=== PATIENT | female | born 1945 | race Caucasian/White ===

== ENCOUNTER 2020-12-05 08:53 | Outpatient (RCR) | payer MEDICARE, SELFPAY ==
[2020-12-05 11:32] VITALS: BMI 23.5
[2020-12-05] MEDS: COVID-19 VACC, MRNA(PFIZER)/PF 30 MCG/0.3 ML SYRINGE IM (12:57)
[2020-12-27] MEDS: COVID-19 VACC, MRNA(PFIZER)/PF 30 MCG/0.3 ML SYRINGE IM (10:14)
== END 2021-03-07 23:59 ==
LOC: IMMUN 08:53
PROVIDERS: PCP Family Medicine; Visit Provider Family Medicine
DX: Z23 Encounter for immunization (principal)
CPT/HCPCS: 0001A; 0002A; 91300

== ENCOUNTER → 2022-07-05 | Outpatient (CLI) | payer MEDICARE, SELFPAY ==
[2022-07-05 10:49] LABS: Anion Gap 6 (5-15); BUN 17 mg/dL (7-18); BUN/Creat Ratio 25.1 RATIO (10-20); Calcium,Total 9.4 mg/dL (8.5-10.1); Chloride 106 mmol/L (98-107); Creatinine, Serum 0.68 mg/dL (0.55-1.02); EST Glomerular Filtration Rate 90 mL/min (>60); Est Glom Filt Rate - Afr Amer 109 mL/min (>60); Glucose 94 mg/dL (74-106); Potassium 4.3 mmol/L (3.5-5.1); Sodium Level 139 mmol/L (136-145)
== END | disposition home or self-care (01) ==
PROVIDERS: Referring Provider Nurse Practitioner Family; Visit Provider Nurse Practitioner Family
DX: I10 Essential (primary) hypertension (principal); R00.2 Palpitations
CPT/HCPCS: 36415; 80048

== ENCOUNTER → 2023-08-27 | Outpatient (CLI) | payer MEDICARE, SELFPAY ==
--- NOTE | 2023-08-27 14:51 | ECHOD_ITS ---
Reason For Study: HTN Procedure This was a 2D Doppler, Color Flow transthoracic echocardiogram. Exam performed in department. Left Ventricle Normal LV size. Left ventricular systolic function is normal. The estimated ejection fraction is 65 %. No regional wall motion abnormalities noted. Right Ventricle Normal RV size. Normal systolic function. Atria Normal left atrium. Normal right atrium. Mitral Valve Normal mitral valve. Tricuspid Valve Normal tricuspid valve. Mild tricuspid valve insufficiency. Pulmonary artery systolic pressure is 24 mmHg. Aortic Valve Normal aortic valve. Mild (1+) aortic valve insufficiency. Pulmonic Valve Normal pulmonic valve. Great Vessels Normal aortic root. The pulmonary artery is normal size. Normal inferior vena cava. Pericardium/Pleural No pericardial effusion. MMode/2D Measurements & Calculations LVIDd: 3.8 cm IVSd: 0.78 cm LAV(MOD-bp): 38.9 ml LVIDs: 2.2 cm LVPWd: 1.0 cm LAV(MOD-bp) Indexed: 22.6 ml/m2 FS: 40.8 % LAV(MOD-sp2): 37.2 ml LAV(MOD-sp4): 37.4 ml SV(MOD-sp4): 34.2 ml SV(sp4-el): 36.0 ml LVAd ap4: 21.6 cm2 LVLd ap4: 6.9 cm EDV(MOD-sp4): 56.1 ml EDV(sp4-el): 57.6 ml LVAs ap4: 12.0 cm2 LVLs ap4: 5.6 cm ESV(MOD-sp4): 21.9 ml ESV(sp4-el): 21.6 ml EF(MOD-sp4): 60.9 % EF(sp4-el): 62.4 % LA A4 area: 15.1 cm2 LA dimension(2D): 3.0 cm RA A4 area: 8.9 cm2 TAPSE: 1.9 cm Time Measurements MV dec time: 0.19 sec Doppler Measurements & Calculations MV E max pilo: 80.3 cm/sec Lat Peak E' Pilo: 7.6 cm/sec Med Peak E' Pilo: 6.0 cm/sec MV A max pilo: 74.7 cm/sec E/E' lat: 10.6 E/E' med: 13.5 MV E/A: 1.1 MV V2 max: 81.6 cm/sec Ao V2 max: 154.5 cm/sec MV max P.7 mmHg MV dec slope: 431.3 cm/sec2 Ao max P.5 mmHg MV V2 mean: 54.8 cm/sec Ao V2 mean: 106.0 cm/sec MV mean P.3 mmHg Ao mean P.2 mmHg MV V2 VTI: 28.7 cm Ao V2 VTI: 34.7 cm AV (velocity ratio): 0.65 AI max pilo: 496.9 cm/sec LV V1 max: 122.6 cm/sec PA V2 max: 99.4 cm/sec AI max P.8 mmHg LV V1 max P.0 mmHg PA V2 mean: 78.0 cm/sec LV V1 mean P.6 mmHg AI dec slope: 307.9 cm/sec2 LV V1 mean: 74.1 cm/sec AI P1/2t: 472.8 msec LV V1 VTI: 22.6 cm TR max pilo: 233.9 cm/sec PI dec slope: 239.0 cm/sec2 TR max P.9 mmHg ECHO/Echo Complete Interpretation Summary Normal LV size. Left ventricular systolic function is normal. The estimated ejection fraction is 65 %. Pulmonary artery systolic pressure is 24 mmHg. Mild (1+) aortic valve insufficiency. Ordering Physician: Russel Hammer Referring Physician: Russel Hammer Performed By: Martha Landa RCS
== END | disposition home or self-care (01) ==
LOC: CVS 14:48
PROVIDERS: Referring Provider Internal Medicine Cardiovascular Disease; Visit Provider Internal Medicine Cardiovascular Disease
DX: R00.2 Palpitations (principal); I10 Essential (primary) hypertension
CPT/HCPCS: 93306

== ENCOUNTER → 2023-10-09 | Outpatient (CLI) | payer MEDICARE, SELFPAY ==
[2023-10-09 17:03] LABS: Anion Gap 6 (5-15); BUN 19 mg/dL (7-18); BUN/Creat Ratio 25.5 RATIO (10-20); Calcium,Total 9.5 mg/dL (8.5-10.1); Chloride 99 mmol/L (98-107); Creatinine, Serum 0.74 mg/dL (0.55-1.02); EST Glomerular Filtration Rate 80 mL/min (>60); Est Glom Filt Rate - Afr Amer 97 mL/min (>60); Glucose 99 mg/dL (74-106); Potassium 3.9 mmol/L (3.5-5.1); Sodium Level 132 mmol/L (136-145)
== END | disposition home or self-care (01) ==
LOC: LAB 15:52
PROVIDERS: Referring Provider Physician Assistant Medical; Visit Provider Physician Assistant Medical
DX: I10 Essential (primary) hypertension (principal); Z51.81 Encounter for therapeutic drug level monitoring; Z79.899 Other long term (current) drug therapy
CPT/HCPCS: 36415; 80048

== ENCOUNTER → 2023-11-06 | Outpatient (CLI) | payer MEDICARE, SELFPAY ==
[2023-11-06 15:43] LABS: Anion Gap 3 (5-15); BUN 18 mg/dL (7-18); BUN/Creat Ratio 22.8 RATIO (10-20); Calcium,Total 9.3 mg/dL (8.5-10.1); Chloride 107 mmol/L (98-107); Creatinine, Serum 0.79 mg/dL (0.55-1.02); EST Glomerular Filtration Rate 75 mL/min (>60); Est Glom Filt Rate - Afr Amer 91 mL/min (>60); Glucose 103 mg/dL (74-106); Potassium 3.9 mmol/L (3.5-5.1); Sodium Level 138 mmol/L (136-145)
--- OUTSIDE RECORDS SUMMARY | 2023-11-06 18:56 | XMS RPT_ITS | CCD ---
Author Name Unknown Address [address] [place] [address] Organization [facility] Care Team Providers Care [facility] Specialist Name Role Phone Kandace Reaganbonny Mcginnis Unavailable Floridalma Ballard Unavailable Unavailable Kandace Reaganbonny Mcginnis Unavailable KEM ORTEZ Unavailable Unavailable Fabricio De La Garza Unavailable Unavailable Fabricio De La Garza Unavailable Unavailable BOLKEM ESCOBEDO Unavailable Unavailable IMCA Unavailable Unavailable Fabricio De La Garza Unavailable Unavailable Unavailable Primary Care Provider Unavailabl e FRED POTTS Referring Unavailable FRED POTTS Referring Unavailable Allergies Allergy Classification Reported Allergen(s) Allergy Type Date of Onset Reaction(s) Facility (3 sources) amantadine; Translations: [SYMMETREL] food allergy 4 [facility] Work Phone: (3 sources) amoxicillin / clavulanate drug allergy 4 [facility] Work Phone: (6 sources) erythromycin; Translations: [ERYTHROMYCIN] drug allergy 0 [facility] Work Phone: (3 sources) amantadine; Translations: [AMANTADINE HCL] Drug Allergy 0 [place] [facility] (3 sources) AMOXICILLIN-POT CLAVULANATE; Translations: [AMOXICILLIN-POT CLAVULANATE] Propensity to adverse reactions (disorder) 0 [place] [facility] Medications Completed/Discontinued Medications Medication Drug Class(es) Dates Sig (Normalized) Sig (Original) amLODIPine 5 mg oral tablet (4 sources) Dihydropyridine Calcium Channel Lázaro Start: 10-11-2014 take 1 tablet by mouth once daily in the evening NORVASC 5 MG TABS One tablet by mouth daily in the PM AMLODIPINE BESYLATE [id number] Russel Hammer MD Problems Active Problems Problem Classification Problem Date Documented Da te Episodic/Chronic Cancer of bladder (2 sources) Malignant neoplasm of bladder, unspecified; Translations: [Malignant tumor of urinary bladder] Onset: 11-25-2009 09-25-2021 Chronic Cancer of bladder (2 sources) H/O: malignant neoplasm; Translations: [Personal history of malignant neoplasm of bladder] Onset: 03-17-2010 09-01-2014 Episodic Disorders of lipid metabolism (6 sources) Hyperlipidemia; Translations: [Hyperlipidemia, unspecified] Onset: 07-20-2014 Resolved: 07-21-2014 07-21-2014 Chronic Essential hypertension (3 sources) Hypertensive disorder; Translations: [Essential (primary) hypertension] Onset: 08-31-2014 08-31-2014 Chronic Osteoporosis (1 source) Osteoporosis; Translations: [Age-related osteoporosis without current pathological fracture] Onset: 08-17-2014 08-17-2014 Chronic Paralysis (1 source) Cerebral palsy; Translations: [Cerebral palsy, unspecified] Onset: 06-30-2014 06-30-2014 Chronic Rubia-; endo-; and myocarditis; cardiomyopathy (except that caused by tuberculosis or sexually transmitted disease) (1 source) Heart valve disorder; Translations: [Endocarditis, valve unspecified] Onset: 07-28-2014 09-25-2021 Chronic Unclassified (1 source) Unknown / UNK(Unknown) Onset: 05-14-2018 Past or Other Problems Problem Classification Problem Date Documented Date Episodic/Chronic Blindness and vision defects (1 source) Amblyopia; Translations: [Unspecified amblyopia, unspecified eye] Onset: 06-30-2014 09-25-2021 Episodic Cardiac dysrhythmias (3 sources) Palpitations; Translations: [Palpitations] Onset: 07-20-2014 07-20-2014 Episodic Other circulatory disease (3 sources) Elevated blood-pressure reading without diagnosis of hypertension; Translations: [Elevated blood-pressure reading, without diagnosis of hypertension] Onset: 07-20-2014 07-20-2014 Episodic Other nervous system disorders (1 source) Impairment of balance; Translations: [Other abnormalities of gait and mobility] Onset: 01-05-2015 01-05-2015 Episodic Other non-traumatic joint disorders (1 source) Hip pain; Translations: [Pain in unspecified hip] Onset: 01-05-2015 01-05-2015 Episodic Results Test Name Value Interpretation Reference Range Facil ity Vital Signs Date Time Vital Sign Value Performing Clinician Atul arora 02-28-2017 16:17-0400 BMI (Body Mass Index) 25.29 kg/m2 [facility] Work Phone: 02-28-2017 16:17-0400 BP Diastolic 70 mm[Hg] [facility] Work Phone: 02-28-2017 16:17-0400 BP Systolic 150 mm[Hg] [facility] Work Phone: 02-28-2017 16:17-0400 Height 167.64 cm [facility] Work Phone: 02-28-2017 16:17-0400 Pulse (Heart Rate) 76 /min [facility] Work Phone: 02-28-2017 16:17-0400 Respiratory Rate 20 /min [facility] Work Phone: 02-28-2017 16:17-0400 Weight 71.08 kg [facility] Work Phone: 03-13-2016 15:55-0400 BMI (Body Mass Index) 24.63 kg/m2 [facility] Work Phone: 03-13-2016 15:55-0400 BP Diastolic 70 mm[Hg] Harumi DeFinis [facility] Work Phone: 03-13-2016 15:55-0400 BP Systolic 160 mm[Hg] Harumi DeFinis [facility] Work Phone: 03-13-2016 15:55-0400 BSA (Body Surface Area) 1.78 m2 Harumi DeFinis [facility] Work Phone: 03-13-2016 15:55-0400 Pulse (Heart Rate) 76 /min Harumi DeFinis [facility] Work Phone: 03-13-2016 15:55-0400 Respiratory Rate 20 /min Floridalma DeFinis [facility] Work Phone: 03-13-2016 15:55-0400 Weight 69.22 kg Floridalma DeFinis [facility] Work Phone: 07-21-2014 14:19-0400 Height 167.64 cm Floridalma DeFinis [facility] Work Phone: Encounters Encounter Date Encounter Type Care Provider Facility Start: 10-30-2023 Telephone encounter Fred rodriguez PA-C Work Phone: Urology Procedures Date Procedure Procedure Detail Performing Clinician Start: 02-28-2017 End: 02-28-2017 Follow Up Appt 6 months Brandee Braun Start: 02-28-2017 End: 02-28-2017 BRIGID Hammer MD Start: 02-28-2017 End: 02-28-2017 Follow Up Appt 6 months Brandee Braun Start: 02-28-2017 End: 02-28-2017 BRIGID Hammer MD Start: 03-13-2016 End: 03-13-2016 JACKIE Hammer MD Start: 03-13-2016 End: 03-13-2016 Follow Up Appt 6 months Brandee Braun Start: 03-13-2016 End: 03-13-2016 JACKIE Hammer MD Start: 03-13-2016 End: 03-13-2016 Follow Up Appt 6 months Brandee Braun Start: 03-24-2015 End: 03-24-2015 JACKIE Hammer MD Start: 03-24-2015 End: 03-25-2015 Documentation of current medications Russel Hammer MD Start: 03-24-2015 End: 03-24-2015 Follow Up Appt 1 year Russel Hammer MD Start: 03-24-2015 End: 03-24-2015 JACKIE Hammer MD Start: 03-24-2015 End: 03-25-2015 Documentation of current medications Russel Hammer MD Start: 03-24-2015 End: 03-24-2015 Follow Up Appt 1 year Russel Hammer MD Start: 08-31-2014 End: 08-31-2014 JACKIE Hammer MD Start: 08-31-2014 End: 08-31-2014 Follow Up Appt 6 months Brandee Braun Start: 08-31-2014 End: 08-31-2014 JACKIE Hammer MD Start: 08-31-2014 End: 08-31-2014 Follow Up Appt 6 months Brandee Braun Start: 07-26-2014 End: 07-26-2014 Nurse, Teaching, Wound Check (no charge) Russel Hammer MD Start: 07-26-2014 End: 07-26-2014 Nurse, Teaching, Wound Check (no charge) Russel Hammer MD Start: 07-21-2014 End: 07-21-2014 JACKIE Hammer MD Start: 07-21-2014 End: 08-31-2014 Ecg routine ecg w/least 12 lds w/i&r Russel Hammer MD Start: 07-21-2014 End: 07-26-2014 Echocardiography Russel Hammer MD Start: 07-21-2014 End: 07-21-2014 Follow Up Appt 6 weeks Russel Hammer MD Start: 07-21-2014 End: 07-21-2014 HAY BUCKLER Russel Hammer MD Start: 07-21-2014 End: 07-26-2014 Echocardiography Russel Hammer MD Start: 07-21-2014 End: 08-31-2014 Electrocardiogram, complete Russel Luevano i, MD Start: 07-21-2014 End: 07-21-2014 Follow Up Appt 6 weeks Russel Hammer MD Plan of Treatment Date Care Activity Detail Author Start: 09-30-2023 Advance Directive Discussion Advance Directive Discussion [facility] Start: 09-30-2023 Depression Assessment Depression Assessment [facility] Start: 05-31-2023 Covid-19 Vaccine () Covid-19 Vaccine () [facility] Start: 05-31-2023 Influenza vaccination Influenza Vaccine (#1) [facility] Start: 09-13-2017 End: 09-13-2017 Appointment Appointment [facility] Work Phone: Start: 07-01-2017 Diabetes Screening Diabetes Screening [facility] Start: 02-28-2017 End: 02-28-2017 Appointment Appointment [facility] Work Phone: Start: 02-28-2017 End: 02-28-2017 Follow Up Appt 6 months Follow Up Appt 6 months [facility] Work Phone: Start: 02-28-2017 End: 02-28-2017 MMM MMM [facility] Work Phone: Start: 02-28-2017 End: 02-28-2017 Follow Up Appt 6 months Follow Up Appt 6 months [facility] Work Phone: Start: 02-28-2017 End: 02-28-2017 MMM MMM [facility] Work Phone: Start: 03-13-2016 End: 03-13-2016 HAY BUCKLER HAY BUCKLER [facility] Work Phone: Start: 03-13-2016 End: 03-13-2016 Follow Up Appt 6 months Follow Up Appt 6 months [facility] Work Phone: Start: 03-13-2016 End: 03-13-2016 HAY BUCKLER HAY BUCKLER [facility] Work Phone: Start: 03-13-2016 End: 03-13-2016 Follow Up Appt 6 months Follow Up Appt 6 months [facility] Work Phone: Start: 03-24-2015 End: 03-24-2015 HAY BUCKLER HAY BUCKLER [facility] Work Phone: Start: 03-24-2015 End: 03-24-2015 Follow Up Appt 1 year Follow Up Appt 1 year [facility] Work Phone: Start: 03-24-2015 End: 03-24-2015 HAY BUCKLER HAY BUCKLER [facility] Work Phone: Start: 03-24-2015 End: 03-24-2015 Follow Up Appt 1 year Follow Up Appt 1 year [facility] Work Phone: Start: 08-31-2014 End: 08-31-2014 HAY BUCKLER HAY BUCKLER [facility] Work Phone: Start: 08-31-2014 End: 08-31-2014 Follow Up Appt 6 months Follow Up Appt 6 months [facility] Work Phone: Start: 08-31-2014 End: 08-31-2014 HAY BUCKLER HAY BUCKLER [facility] Work Phone: Start: 08-31-2014 End: 08-31-2014 Follow Up Appt 6 months Follow Up Appt 6 months [facility] Work Phone: Start: 07-21-2014 End: 07-21-2014 HAY BUCKLER HAY BUCKLER [facility] Work Phone: Start: 07-21-2014 End: 08-31-2014 Ecg routine ecg w/least 12 lds w/i&r EKG (In office) [facility] Work Phone: Start: 07-21-2014 End: 07-21-2014 Echocardiography Echocardiogram (complete) [facility] Work Phone: Start: 07-21-2014 End: 07-21-2014 Follow Up Appt 6 weeks Follow Up Appt 6 weeks [facility] Work Phone: Start: 07-21-2014 End: 07-21-2014 HAY BUCKLER HAY BUCKLER [facility] Work Phone: Start: 07-21-2014 End: 07-21-2014 Echocardiography Echocardiogram (complete) [facility] Work Phone: Start: 07-21-2014 End: 08-31-2014 Electrocardiogram, complete EKG (In office) [facility] Work Phone: Start: 07-21-2014 End: 07-21-2014 Follow Up Appt 6 weeks Follow Up Appt 6 weeks [facility] Work Phone: Start: 01-28-2012 Pneumococcal Vaccine: 65+ (1 of 1 - PCV) Pneumococcal Vaccine: 65+ (1 of 1 - PCV) [facility] Start: 2007 RSV Vaccine (1 - 1-dose 60+ series) RSV Vaccine (1 - 1-dose 60+ series) [facility] Start: 1997 Shingrix Vaccine (1 of 2) Shingrix Vaccine (1 of 2) [facility] Start: 1966 Urine microalbumin profile DTaP,Tdap,Td Vaccine (1 - Tdap) [facility] Start: 1965 Hepatitis C screening Hepatitis C Screening [facility] Patient Education Metoprolol+(Or al)+(Table t%2C+Tablet%2C+Extended+ Release) [facility] Work Phone: [facility] c Payers Date Payer Category Payer Medicare AETNA MEDICARE A ETNA MEDICARE PPO [id number] 2023-Present [phone] [address] [place] [address] [facility] [id number] 2023 Medicare [id number] Medicare [id number] Social History Date Type Detail Facility Start: 05-14-2018 Tobacco smoking stat us NHIS Never smoked tobacco [facility] Start: 05-14-2018 Tobacco use and exposure Smoke less tobacco non-user [facility] Start: 05-27-2019 Alcohol intake Current non-dr edge inker uppers of alcohol (finding) [facility] Start: 05-27-2019 End: 09-06-2020 History of Social function [facility] Start: 05-27-2019 End: 09-06-2020 Tobacco use panel [facility] National Score (1-10 0), lower number is lower risk Not on file [facility] Start: 1945 Sex Assigned At Not on file [facility] Note 10-31-2023 Telephone Encounter - MUNIRA Turner Laurie - 10/31/2023 4:57 PM ESTTelephone Encounter - Misty Clancy LPN - 10/31/2023 8:40 AM ESTTelephone Encounter - Misty Clancy LPN - 10/31/2023 8:30 AM EST Note Date & Type Note Facility 10-31-2023 Miscellaneous Notes Formattin g of this note might be different from the original. Scheduled for Virtual visit with Dr. Aguilar 11/11 at 1pm. Pt and niece notified and are in agreement with plan to discuss atypical cytology and determine any further work-up. Hedy Turner MA Called Key. Verified name and date of of patient. Informed- states patient has had several cystoscopies in the past. States that patient called her as soon as she got off the phone with me and will call her back to let her know I did get a hold of her. Per Key, patient will most likely get the procedure but will talk with her first to verify and will get a hold of Hedy Turner MA to schedule if they move forward. Misty Clancy LPN Called patient. Verified name and date of . Informed- did state it is a lot ot process with her have Cerebral Palsy and was hoping for good news since she has been doing well. Patient did ask that I call her niece Key at [phone] and let her know. Patient plans to discuss with Key plan and will let us know what they decide. Patient requests a call back to let her know if I get a hold of Key as she doesn't want to take too much time from her niece while she is at work. Misty Clancy LPN Please notify patient that his Urine Cytology showed Atypical Cells these are NOT cancer cells, but do require investigation with Cystoscopy with Staff Urologist Especially in light of her having past history of Bladder Cancer, appt with me is not needed she will need Surgeon to do consult and cystoscopy and if gross hematuria, A CT urogram as well. Closest to Story is [facility] I can place orders and request consult to [place] The only tests so far are culture and cytology no UA and no knowledge of gross hematuria or not. We are only getting bits and pieces not the whole picture. ROMINA Taylor, MANOHAR BARAHONA documented in this encounter [facility] Summary Purpose Family History No Family History Records FoundNo Family History Records FoundNo Family History Records Found Advance Directives No Advanced Directives Records FoundNo Advanced Directives Records FoundNo Advanced Directives Records Found Procedure Findings Note HNO ID: [id number] Author: Abraham Ortez Service: ? Author Type: Physician Type: Procedures Filed: 05/27/2019 3:05 PM Note Text: CYSTOSCOPY PROCEDURE NOTE: Isabelle Burton is a 74 year old female who presents with follow up bladder tumorfor a cystoscopy. Pt ID verified with patient: Yes Procedure verified with patient: Yes Procedure confirmed with physician and product support representative: Yes Sign In: History and Physical Exam reviewed and is unchanged. Primary Diagnosis: History of Bladder CA Informed Consent Discussed: Yes. Risks, benefits, alternatives and personnel discussed with patient who consents to proceed. Sign in Communication: Completed Time Out: Team Confirms the Correct Patient, Correct Procedure; Cystoscopy, Correct Site and Site Marking, Correct Position (if applicable). Fire Safety Check List Reviewed: Yes Affirmation of Time Out: Yes Sign Out: Sign Out Discussion: Completed Physician: Kem Ortez MD A urinalysis was performed revealing no evidence of infection. The bene (more content not included)... Additional Source Comments INFORMATION SOURCE (unrecogn ized section and content) DATE CREATED AUTHOR AUTHOR'S ORGANIZ ATION 05/28/2019 [facility] DATE CREATED AUTHOR AUTHOR'S ORGANIZ ATION 11/01/2023 [facility] Source Comments (unrecognize d section and content) In the event this informatio n is protected by the Federal Confidentiality of Alcohol and Drug Abuse Patient Records regulations: The Federal rules restrict any use of the information to criminally investigate or prosecute any alcohol or drug abuse patient.[facility] Reason for Visit (unrecogniz ed section and content) FOR RECORDS PERTAINING TO PATIENTS WHO ARE OR HAVE BEEN ENROLLED IN A CHEMICAL DEPENDENCY/SUBSTANCEABUSE PROGRAM, SOME INFORMATION MAY BE OMITTED. This clinical summary was aggregated from multiple sources. Caution should be exercised in using it in the provision of clinical care. This summary normalizes information from multiple sources, and as a consequence, information in this document may materially change the coding, format and clinical context of patient data. In addition, data may be omitted in some cases. CLINICAL DECISIONS SHOULD BE BASED ON THE PRIMARY CLINICAL RECORDS. [facility]. provides no warranty or guarantee of the accuracy or completeness of information in this document.
== END | disposition home or self-care (01) ==
LOC: LAB 14:58
PROVIDERS: Referring Provider Physician Assistant Medical; Visit Provider Physician Assistant Medical
DX: I10 Essential (primary) hypertension (principal)
CPT/HCPCS: 36415; 80048

== ENCOUNTER → 2024-09-25 | Outpatient (CLI) | payer MEDICARE, SELFPAY ==
[2024-09-25 13:19] LABS: Absolute Lymphocyte Count 1.85 X10^3/uL (0.83-4.51); Absolute Neutrophil Count 4.6 X10^3/uL (2.0-7.7); Basophil# 0.06 X10^3/uL; Basophil% 0.9 % (0-1); Eosinophil# 0.02 X10^3/uL; Eosinophils% 0.3 % (0-5); Hematocrit 41.7 % (37-47); Hemoglobin 13.5 g/dL (12.0-15.0); Lymphocyte # 1.85 X10^3/ul (0.83-4.51); Lymphocyte % 26.6 % (19-41); Mean Corp Hgb Conc 32.4 g/dL (32-36); Mean Corpuscular Hgb 30.3 pg (27.0-32.0); Mean Corpuscular Volume 93.7 fL (81-99); Mean Platelet Vol. 10.8 fl (6.2-12.0); Monocyte# 0.46 X10^3/uL; Monocyte% 6.6 % (0-10); NRBC Flagged by Analyzer 0 % (0-5); Neutrophil # 4.55 X10^3/uL (2.7-7.7); Neutrophil % 65.3 % (47-70); Platelet Count 236 K/mm3 (150-450); RBC Distribution Width CV 13.6 % (11.6-14.6); RBC Distribution Width SD 46.6 fl (35.1-43.9); Red Blood Count 4.45 M/mm3 (4.2-5.4)
[2024-09-25 14:08] LABS: ALB/GLOB Ratio 1.1 RATIO (0.9-2.4); AST(SGOT) 16 U/L (15-37); Alanine Aminotransfer ALT/SGPT 21 U/L (13-56); Albumin, Serum 3.7 g/dL (3.2-5.0); Alkaline Phosphatase 75 U/L (45-117); Anion Gap 5 (5-15); BUN 15 mg/dL (7-18); BUN/Creat Ratio 19.2 RATIO (10-20); Calcium,Total 8.7 mg/dL (8.5-10.1); Chloride 107 mmol/L (98-107); Creatinine, Serum 0.78 mg/dL (0.55-1.02); EST Glomerular Filtration Rate 76 mL/min (>60); Est Glom Filt Rate - Afr Amer 92 mL/min (>60); Globulin 3.3 g/dL (2.2-4.2); Glucose 105 mg/dL (74-106); Magnesium 2.3 mg/dL (1.6-2.6); Sodium Level 139 mmol/L (136-145); T4 Free Direct 1.14 ng/dL (0.76-1.46)
== END | disposition home or self-care (01) ==
LOC: LAB 12:26
PROVIDERS: Referring Provider Nurse Practitioner Family; Visit Provider Nurse Practitioner Family
DX: R00.2 Palpitations (principal); I10 Essential (primary) hypertension; R00.0 Tachycardia, unspecified
CPT/HCPCS: 36415; 80053; 83735; 84439; 84443; 85025

== ENCOUNTER 2024-10-30 10:58 | Inpatient (IN) | payer MEDICARE, SELFPAY ==
[2024-10-30] VITALS (9 sets, daily range): BP systolic 131–177; BP diastolic 66–92; PULSE 86–138; RESP 16–34; TEMP 36.3–37.6; O2SAT 96–98; BMI 23.1; BMI 21.7
--- NOTE | 2024-10-30 12:26 | CT_ITS ---
PROCEDURE: CT CHEST, ABD, PELVIS WO CONT REASON FOR EXAM: Left-sided rib pain and pelvic pain following a fall. TECHNIQUE: Chest CTA with intravenous contrast and 3D reconstructions. Abdomen and pelvis CT using the same contrast dose. CONTRAST: COMPARISON: None. FINDINGS: CHEST: Lines and tubes: None. Mediastinum: Small mediastinal lymph nodes. Heart: Coronary artery calcifications are noted. Small pericardial effusion. Thoracic Aorta: No evidence of acute traumatic aortic injury. Atherosclerotic calcification of the aortic arch and descending thoracic aorta. Lungs and Airways: Mild increased markings at the left lung base suggestive of left basilar atelectasis. Pleura: Minimal left pleural thickening. Bones: Degenerative changes of the spine. No rib fracture is seen. Osteoarthritis of both shoulder joints. ABDOMEN AND PELVIS: Liver: Unremarkable. Gallbladder: Unremarkable. Spleen: Unremarkable. Pancreas: Unremarkable. Adrenals: Unremarkable. Kidneys: Unremarkable. Bladder: Distended urinary bladder. Prior hysterectomy. Reproductive Organs: Unremarkable. Bowel: Moderate-sized hiatal hernia. Vasculature: Mild diffuse atherosclerotic calcifications are noted. Peritoneum / Retroperitoneum: No free fluid. No free air. Bones: Degenerative changes of the spine. Loss of height of the superior endplate of the L3 and L5 vertebrae. 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 Prior ORIF of the left intertrochanteric fracture. Degenerative changes of the sacroiliac joints. CT/CT Chest, Abd, Pelvis WO Cont IMPRESSION: Small pericardial effusion. Findings suggestive of left basilar atelectasis. Distended urinary bladder. Loss of height of the L3 and L5 vertebrae. Red 1 anterior listhesis of L5 on S1. Hiatal hernia. One or more dose reduction techniques were used (e.g., Automated exposure contr ol, adjustment of the mA and/or kV according to patient size, use of iterative reconstruction technique). Reading Location: [facility]
--- NOTE | 2024-10-30 12:38 | ED.VIS.BACK ---
HPI History of Present Illness Chief Complaint: Back Informant: patient and family Narrative Narrative: Patient is a 79 year female with history of cerebral palsy and tachycardia presenting for with worsening left lower back pain, left rib pain and pain going down her left leg. Patient states she had a fall about 2 weeks ago in the kitchen. She landed on hard linoleum. She denies any head injury or loss of conscious. She is on any blood thinners. Week ago she had another fall in her bedroom when she landed on her buttocks. Over the past few days she has been having worsening low back pain that goes into her left buttocks and down her leg. She denies any associated numbness. Her sister tried to help her out of bed today and her legs were too weak that she had to put her back in bed. Patient notes she has a lot of pain especially when she tries to walk or rotate in bed. She states he is having very hard time getting around. She normally gets around with a cane. In addition she is been having worsening constipation for the past few days. She has been trying prune juice and fiber with no relief. She denies any difficulty breathing. Been taking aspirin for her pain with no significant relief. Came in for further evaluation as she is now having a hard time taking care of herself or even getting to the restroom. No other complaints or concerns reported at this time [facility] Medical History Cerebral palsy Cataract Palpitations Elevated blood pressure reading without diagnosis of hypertension Essential (primary) hypertension Home Medications ?Medication ?Instructions ?Recorded ?Last Taken ?Type apple cider vinegar 600 mg capsule 600 mg PO QDAY 01/16/18 Unknown History flaxseed oil 1,000 mg capsule 1,000 mg PO QDAY 01/16/18 Unknown History garlic 200 mg tablet 200 mg PO QDAY 01/16/18 Unknown History glucosamine HCl 500 mg tablet 500 mg PO QDAY 01/16/18 Unknown History red yeast rice 600 mg capsule 600 mg PO QDAY 01/16/18 Unknown History cholecalciferol (vitamin D3) 25 2,000 unit PO QDAY 07/25/23 Unknown History mcg (1,000 unit) tablet metoprolol succinate 50 mg 50 mg PO DAILY #90 TABLETS 01/22/24 Unknown Rx tablet,extended release 24 hr lisinopril 20 mg tablet 20 mg PO QDAY #90 tabs 03/02/24 Unknown Rx amlodipine 5 mg tablet 5 mg PO DAILY #90 tabs 10/05/24 Unknown Rx Allergy/AdvReac Type Severity Reaction Status Date / Time amantadine (From Symmetrel) AdvReac Severe Unknown Verified 10/30/24 11:00 amoxicillin (From Augmentin) AdvReac Severe Unknown Verified 10/30/24 11:00 clavulanic acid (From AdvReac Severe Unknown Verified 10/30/24 11:00 Augmentin) erythromycin base AdvReac Severe Unknown Verified 10/30/24 11:00 Family History Father Diabetes Hypertension Mother alzhemier Osteoporosis Surgical History History of tonsillectomy History of hysterectomy History of hip replacement Social History Smoking Status: Never smoker alcohol intake: never substance use type: does not use caffeine: Yes Type: coffee Number of servings: 3 what type of physical activity do you participate in: none seatbelt use: always do you feel safe at home: Yes ROS ROS ED Constitutional Constitutional ED: Denies chills or fever(s) Cardiovascular Cardiovascular: Denies chest pain Respiratory/Chest Respiratory/Chest: Denies dyspnea Gastrointestinal Gastrointestinal: Reports constipation; Denies abdominal pain, nausea or vomiting Musculoskeletal Musculoskeletal: Reports back pain; Denies neck pain Integumentary Denies rash Neurologic Neurologic: Reports weakness; Denies paresthesias Psychiatric Psychiatric: Denies anxiety or depression Hematologic/Lymphatic Hematologic/Lymphatic: Denies easy bleeding or easy bruising EXAM Physical Exam Const Vital Signs: 10/30/24 11:01 10/30/24 15:00 10/30/24 15:52 Temperature 98.1 F 98.9 F 97.4 F L Temperature Source Oral Oral Pulse Rate 121 H 105 H 110 H Respiratory Rate 20 H 18 17 Blood Pressure 141/73 H 140/73 H 177/92 H Blood Pressure Mean 95 95 120 Pulse Ox 96 98 97 Oxygen Delivery Method Room Air Room Air 10/30/24 15:53 Temperature 98.4 F Temperature Source Oral Pulse Rate 110 H Respiratory Rate 17 Blood Pressure 177/92 H Blood Pressure Mean 120 Pulse Ox 97 Oxygen Delivery Method Room Air Positive well nourished and well developed General Appearance ED: well developed and NAD HEENT Reports dry mucous membranes Mouth ED: Yes dry mucous membranes Mouth: dry mucous membranes Eyes PERRL Neck supple Resp normal respiratory effort and clear to auscultation bilaterally Cardio regular rhythm Rate: tachycardic GI normal to inspection, nondistended, normoactive bowel sounds, soft to palpation and non-tender Back/Spine normal to inspection Back/Spine Narrative: No midline thoracic tenderness. Patient is also mild tenderness over the sacrum and at the left SI joint. Does have some associated left lumbar paraspinal tenderness. Positive straight leg test on the right with increase of left low back pain. Negative left straight leg test. Extremity Extremity Narrative: Some chronic appearing deformity to the right foot with abnormal rotation?patient states this is chronic from her CP. Neuro oriented x3 Neuro Narrative: 5/5 strength with plantar and dorsiflexion of the left foot. 5/5 strength of the right foot with plantarflexion but 4/5 strength with dorsiflexion?chronic for patient. Sensorium / Orientation: alert Psych mental status grossly normal Skin no rashes or lesions noted and no wounds MDM MDM MDM Narrative Medical decision making narrative: Patient evaluate for worsening low back pain. Did have a fall about a week ago but did not think much of it. Is also complaining of some left-sided rib pain from a fall 2 weeks ago. Upon arrival patient is tachycardic (does have history of whitecoat associated tachycardia and hypertension per her chart review with cardiology). Patient is given IV fentanyl with only minimal relief of her pain. Given that she is having rib pain as well as sacral pain will obtain CT of the chest abdomen pelvis for further evaluation ensure she does not have an acute traumatic process. She does have loss of height of the L3 and L5 vertebrae with retrolisthesis of L5 on S1. Is not clear if these are acute or chronic. Patient is given a dose of IV Ativan that she does appear to be having a lot of muscle spasms. She does have improvement of her pain with at rest but still significant pain when she tries to move. In addition patient does have a leukocytosis of 22.5. No clear source is seen. She does not report any fever. She is not able to provide urine sample in the emergency room but her bladder is quite distended. Lau catheters obtained and 800 cc is out. No UTI appreciated. Attempted to ambulate and patient has too much pain to even stand up. Will be admitted for further pain control, monitoring of her leukocytosis and urinary retention. Patient is agreeable this plan of care. Given dose of Toradol in the ER as well. Case discussed with Dr. Andrews. Lab Data Attestation: I reviewed the patient's lab results. Labs: Laboratory Results - last 24 hr 10/30/24 10/30/24 12:45 14:45 WBC 22.2 H RBC 4.25 Hgb 13.0 Hct 37.7 MCV 88.7 MCH 30.6 MCHC 34.5 RDW Std Deviation 43.2 RDW Coeff of Roselyn 13.2 Plt Count 240 MPV 10.0 Immature Gran % (Auto) 0.800 Neut % (Auto) 83.5 H Lymph % (Auto) 4.4 L [place] % (Auto) 11.2 H Eos % (Auto) 0.0 Baso % (Auto) 0.1 Absolute Neuts (auto) 18.5 H Absolute Lymphs (auto) 0.98 Nucleated RBC % 0 Differential Comment SCANNED Diff Path Review May foll Sodium 133 L Potassium 3.6 Chloride 102 Carbon Dioxide 23.0 Anion Gap 7 BUN 15 Creatinine 0.64 Estim Creat Clear Calc 57.27 Est GFR (MDRD) Af Amer 115 Est GFR (MDRD) Non-Af 95 BUN/Creatinine Ratio 23.4 H Glucose 138 H Calcium 8.8 Total Bilirubin 0.70 AST 18 ALT 19 Alkaline Phosphatase 89 Total Protein 6.3 L Albumin 3.2 Globulin 3.1 Albumin/Globulin Ratio 1.0 Urine Color Yellow Urine Clarity Clear Urine pH 7.0 Ur Specific [place] 1.010 Urine Protein 15 H Urine Glucose (UA) Normal Urine Ketones Negative Urine Occult Blood 10 H Urine Nitrite Negative Urine Bilirubin Negative Urine Urobilinogen Normal Ur Leukocyte Esterase Negative Urine RBC 0-5 SEEN Urine WBC 0 SEEN Ur Squamous Epith Cells 0 SEEN Urine Bacteria 0 SEEN Urine Mucus 0 SEEN Radiography Diagnostic Testing: Clinical Impression(s) from Imaging Studies Chest/Abdomen/Pelvis CT 10/30/24 12:26 IMPRESSION: Small pericardial effusion. Findings suggestive of left basilar atelectasis. Distended urinary bladder. Loss of height of the L3 and L5 vertebrae. Red 1 anterior listhesis of L5 on S1. Hiatal hernia. One or more dose reduction techniques were used (e.g., Automated exposure control, adjustment of the mA and/or kV according to patient size, use of iterative reconstruction technique). Reading Location: [place] [id number] Management Discussion w/another healthcare provider: Hospitalist Discharge Plan Triage Chief Complaint: Back ED Provider: She Tejada Dx/Rx/DC Orders Clinical Impression: Tachycardia, Intractable low back pain, Leukocytosis, Urinary retention Primary Care Provider: Care Physician,No Primary Disposition Disposition: Acute Care Hospital [facility]
[2024-10-30] MEDS: fentaNYL 100 MCG/2 ML Ampul 50 MCG IV (12:39)
[2024-10-30 12:50] LABS: Absolute Lymphocyte Count 0.98 X10^3/uL (0.83-4.51); Absolute Neutrophil Count 18.5 X10^3/uL (2.0-7.7); Basophil# 0.03 X10^3/uL; Basophil% 0.1 % (0-1); Hematocrit 37.7 % (37-47); Lymphocyte # 0.98 X10^3/ul (0.83-4.51); Lymphocyte % 4.4 % (19-41); Mean Corp Hgb Conc 34.5 g/dL (32-36); Mean Corpuscular Hgb 30.6 pg (27.0-32.0); Mean Corpuscular Volume 88.7 fL (81-99); Monocyte# 2.49 X10^3/uL; Monocyte% 11.2 % (0-10); NRBC Flagged by Analyzer 0 % (0-5); Neutrophil # 18.48 X10^3/uL (2.7-7.7); Neutrophil % 83.5 % (47-70); POSITIVE DIFFERENTIAL YES; Platelet Count 240 K/mm3 (150-450); RBC Distribution Width CV 13.2 % (11.6-14.6); RBC Distribution Width SD 43.2 fl (35.1-43.9); Red Blood Count 4.25 M/mm3 (4.2-5.4); White Blood Count 22.2 K/mm3 (4.4-11.0)
[2024-10-30 13:35] LABS: Differential Indicated SCAN CRITERIA MET
[2024-10-30 13:36] LABS: Differential Comment SCANNED
[2024-10-30 14:07] LABS: AST(SGOT) 18 U/L (15-37); Alanine Aminotransfer ALT/SGPT 19 U/L (13-56); Albumin, Serum 3.2 g/dL (3.2-5.0); Alkaline Phosphatase 89 U/L (45-117); Anion Gap 7 (5-15); BUN 15 mg/dL (7-18); BUN/Creat Ratio 23.4 RATIO (10-20); Calcium,Total 8.8 mg/dL (8.5-10.1); Chloride 102 mmol/L (98-107); Creatinine, Serum 0.64 mg/dL (0.55-1.02); EST Glomerular Filtration Rate 95 mL/min (>60); Est Glom Filt Rate - Afr Amer 115 mL/min (>60); Estimated Creatinine Clearance 57.27 ml/min; Globulin 3.1 g/dL (2.2-4.2); Glucose 138 mg/dL (74-106); Potassium 3.6 mmol/L (3.5-5.1); Protein, Total 6.3 g/dL (6.4-8.2); Sodium Level 133 mmol/L (136-145)
[2024-10-30] MEDS: LORazepam 2 MG/ML Syringe 1 MG IV (14:36)
[2024-10-30] MEDS: 0.9% Normal Saline (1000mL) 1,000 ML 999 ML IV ×2 (14:36→22:50)
[2024-10-30 14:53] LABS: Bacteria 0 SEEN /hpf (None Seen); Mucous, Urine 0 SEEN /hpf (<or=2+); Squamous Epithelial Cells - UA 0 SEEN /hpf (5-10); White Blood Cells 0 SEEN /hpf (0-5)
[2024-10-30 14:56] LABS: Color, Urine Yellow (Yellow); Glucose, Dipstick Normal (Normal); Ketone-Dipstick Negative (Negative); Leukocyte Esterase-Dipstick Negative /ul (Negative); Nitrite-Dipstick Negative (Negative); Occult Blood-Urine 10 /ul (Negative); Protein-Dipstick 15 mg/dl (Negative); Urine Bilirubin Dipstick Negative (Negative); Urine Clarity Clear (Clear); Urine Urobilinogen Normal (Normal)
[2024-10-30 15:13] LABS: Red Blood Cells-Urine 0-5 SEEN /hpf (0-5)
--- NOTE | 2024-10-30 15:54 | PCM.HP.STD ---
HPI - General General Date of Admission: 10/30/24 Date of Service: 10/30/24 Chief Complaint: Worsening low back pain and difficulty with ambulation HPI Narrative SOUMYA MCFARLANE, is a 79 F who presented to [facility] ED on 10/30/2024 with worsening low back pain and difficulty with ambulation. Patient has history of cerebral palsy but is high functioning, lives at home by herself. Does have family that live close by. Patient had a mechanical fall in the kitchen about 2 weeks ago and then had another fall about 1 week ago where she landed on her buttocks. Since then she has had worsening low back pain and difficulty with ambulation. Today she had too much pain and lower extremity weakness to get out of bed, so family brought her in for evaluation. In the ED she was tachycardic to the 110s but otherwise hemodynamically stable on room air. Labs notable for WBC count 22, sodium 133. CT chest abdomen pelvis showed distended urinary bladder but otherwise no chest or abdominal abnormalities; also showed loss of height of L3 and L5 vertebrae and anterolisthesis of L5 on S1. Lau was placed in the ED with 1200 cc of urine removed. Patient has no prior history of urinary retention. Denies bowel incontinence. Given these findings, hospitalist was contacted for admission. I saw the patient at bedside in the ED, niece was present. Patient was laying back in bed and was alert and oriented x 3 but somewhat sedated. She notably had been given doses of IV fentanyl and Ativan prior to my encounter with her. She denied any low back pain currently at rest. However, she was not able to raise her legs off the table and had significant pain with trying to hold them up after I passively raised them. No upper extremity weakness noted. Patient denied any fevers or chills. No other acute concerns currently. Will be admitted for further management. [facility] Medical History (Updated 10/30/24 @ 21:[address] Shiv Andrews, DO) Anxiety Depression Osteoporosis Non-smoker Cerebral palsy Cataract Palpitations Elevated blood pressure reading without diagnosis of hypertension Essential (primary) hypertension Home Medications ?Medication ?Instructions ?Recorded ?Last Taken ?Type apple cider vinegar 600 mg capsule 600 mg PO QDAY 01/16/18 Unknown History flaxseed oil 1,000 mg capsule 1,000 mg PO QDAY 04/19/18 Unknown History garlic 200 mg tablet 200 mg PO QDAY 01/16/18 Unknown History glucosamine HCl 500 mg tablet 500 mg PO QDAY 01/16/18 Unknown History red yeast rice 600 mg capsule 600 mg PO QDAY 01/16/18 Unknown History cholecalciferol (vitamin D3) 25 2,000 unit PO QDAY 07/25/23 Unknown History mcg (1,000 unit) tablet metoprolol succinate 50 mg 50 mg PO DAILY #90 TABLETS 01/22/24 Unknown Rx tablet,extended release 24 hr lisinopril 20 mg tablet 20 mg PO QDAY #90 tabs 03/02/24 Unknown Rx amlodipine 5 mg tablet 5 mg PO DAILY #90 tabs 10/05/24 Unknown Rx Allergy/AdvReac Type Severity Reaction Status Date / Time amantadine (From Symmetrel) AdvReac Severe Unknown Verified 10/30/24 11:00 amoxicillin (From Augmentin) AdvReac Severe Unknown Verified 10/30/24 11:00 clavulanic acid (From AdvReac Severe Unknown Verified 10/30/24 11:00 Augmentin) erythromycin base AdvReac Severe Unknown Verified 10/30/24 11:00 lorazepam (From Ativan) AdvReac restless Verified 10/30/24 17:39 Family History Father Diabetes Hypertension Mother alzhemier Osteoporosis Surgical History History of tonsillectomy History of hysterectomy History of hip replacement Social History Smoking Status: Never smoker alcohol intake: never substance use type: does not use caffeine: Yes Type: coffee Number of servings: 3 what type of physical activity do you participate in: none seatbelt use: always do you feel safe at home: Yes ROS Constitutional Constitutional: Reports fatigue and weakness; Denies chills or fever(s) Eyes Eyes: Denies change in vision Cardiovascular Cardiovascular: Denies chest pain Respiratory/Chest Respiratory/Chest: Denies shortness of breath at rest Gastrointestinal Gastrointestinal: Denies abdominal pain Genitourinary Genitourinary: Reports difficulty urinating; Denies dysuria Musculoskeletal Musculoskeletal: Reports back pain Neurologic Neurologic: Denies dizziness, headache(s), numbness or tingling Vital Signs Vital Signs Vital Signs: 10/30/24 11:01 10/30/24 15:00 10/30/24 15:52 Temperature 98.1 F 98.9 F 97.4 F L Temperature Source Oral Oral Pulse Rate 121 H 105 H 110 H Respiratory Rate 20 H 18 17 Blood Pressure 141/73 H 140/73 H 177/92 H Blood Pressure Mean 95 95 120 Pulse Ox 96 98 97 Oxygen Delivery Method Room Air Room Air 10/30/24 15:53 Temperature 98.4 F Temperature Source Oral Pulse Rate 110 H Respiratory Rate 17 Blood Pressure 177/92 H Blood Pressure Mean 120 Pulse Ox 97 Oxygen Delivery Method Room Air Weight Weight: 66.9 kg Body Mass Index (BMI) 23.1 Physical Exam Const alert, oriented x3 and average body habitus Constitutional Narrative: Elderly female, fatigued and mildly sedated but alert and oriented x 3, laying back in bed and remaining still due to pain with movement,, answering questions appropriately. General Appearance: cooperative HEENT normocephalic, head/scalp atraumatic, hearing grossly normal bilaterally and nasal mucous membranes and turbinates normal HEENT Narrative: Dry mucous membranes. Eyes PERRL, EOMs intact bilaterally and conjunctivae normal Neck full ROM Chest inspection of chest normal Resp normal respiratory effort, normal air movement, no use of accessory muscles and clear to auscultation bilaterally Cardio no murmurs and peripheral pulses 2+ throughout Cardio Narrative: Tachycardic, regular rhythm. GI normal to inspection, nondistended, normoactive bowel sounds, soft to palpation, non-tender and non-distended Back/Spine Back/Spine Narrative: Mild tenderness to palpation in low back diffusely, no point tenderness noted. Extremity Extremity Narrative: Contracture of right lower extremity noted. Skin no rashes or lesions noted Neuro Neuro Narrative: +2/5 strength in bilateral lower extremities. Good strength in upper extremities. Results Lab / Micro Data 10/30/24 12:45 10/30/24 12:45 Labs: Laboratory Results - last 24 hr 10/30/24 12:45: WBC 22.2 H, RBC 4.25, Hgb 13.0, Hct 37.7, MCV 88.7, MCH 30.6, MCHC 34.5, RDW Std Deviation 43.2, RDW Coeff of Roselyn 13.2, Plt Count 240, MPV 10.0, Immature Gran % (Auto) 0.800, Neut % (Auto) 83.5 H, Lymph % (Auto) 4.4 L, [place] % (Auto) 11.2 H, Eos % (Auto) 0.0, Baso % (Auto) 0.1, Absolute Neuts (auto) 18.5 H, Absolute Lymphs (auto) 0.98, Nucleated RBC % 0, Differential Comment SCANNED, Diff Path Review January, Sodium 133 L, Potassium 3.6, Chloride 102, Carbon Dioxide 23.0, Anion Gap 7, BUN 15, Creatinine 0.64, Estim Creat Clear Calc 57.27, Est GFR (MDRD) Af Amer 115, Est GFR (MDRD) Non-Af 95, BUN/Creatinine Ratio 23.4 H, Glucose 138 H, Calcium 8.8, Total Bilirubin 0.70, AST 18, ALT 19, Alkaline Phosphatase 89, Total Protein 6.3 L, Albumin 3.2, Globulin 3.1, Albumin/Globulin Ratio 1.0 10/30/24 14:45: Urine Color Yellow, Urine Clarity Clear, Urine pH 7.0, Ur Specific [place] 1.010, Urine Protein 15 H, Urine Glucose (UA) Normal, Urine Ketones Negative, Urine Occult Blood 10 H, Urine Nitrite Negative, Urine Bilirubin Negative, Urine Urobilinogen Normal, Ur Leukocyte Esterase Negative, Urine RBC 0-5 SEEN, Urine WBC 0 SEEN, Ur Squamous Epith Cells 0 SEEN, Urine Bacteria 0 SEEN, Urine Mucus 0 SEEN Imaging Radiology Impression Chest/Abdomen/Pelvis CT 10/30/24 12:26 IMPRESSION: Small pericardial effusion. Findings suggestive of left basilar atelectasis. Distended urinary bladder. Loss of height of the L3 and L5 vertebrae. Red 1 anterior listhesis of L5 on S1. Hiatal hernia. One or more dose reduction techniques were used (e.g., Automated exposure control, adjustment of the mA and/or kV according to patient size, use of iterative reconstruction technique). Reading Location: [facility] Assessment & Plan Assessment/Plan (1) Intractable low back pain: (2) Difficulty in walking: (3) Urinary retention: (4) Leukocytosis: PLAN: Plan Patient is a 79-year-old female who presented [facility] ED on 10/30/2024 with worsening low back pain and difficulty with ambulation. 1. Acute debility secondary to intractable low back pain after recent falls, history of cerebral palsy ? Admit under inpatient status to [facility]. PT/OT/case management consulted. CT on admit showed loss of height of L3 and L5 vertebrae and anterolisthesis of L5 on S1, unclear if acute or chronic. MRI lumbar spine ordered for further evaluation. Pending MRI results, can consider orthopedic surgery and/or pain management consults. Pain control with scheduled Tylenol, oxycodone as needed and IV morphine as needed. 2. Urinary retention ? Had Lau catheter placed in the ED with 1200 cc of urine output. No history of urinary retention. Presume secondary to intractable low back pain with acute debility. Will likely plan for Lau removal and void trial prior to discharge. 3. Leukocytosis ? WBC count 22 on admit. Noninfectious appearing and no concerning findings on CT chest, abdomen and pelvis. UA unremarkable. Unclear etiology for leukocytosis at this time. Will hold on antibiotics. Follow-up a.m. CBC. 4. Hypertension ? Continue home amlodipine, lisinopril and Toprol. DVT prophylaxis: Lovenox CODE STATUS: Full code, verified Expected disposition: TBD Total clinical time spent by myself addressing the patient's medical issues, reviewing all the data, and collaborating with patient's care team: 75 minutes. Charges/Coding Visit Charges Inpatient E&M: 05215 Init Hosp L3
--- NOTE | 2024-10-30 16:25 | MRI_ITS ---
PROCEDURE: SPINE LUMBAR (ROUTINE) REASON FOR EXAM: Worsening lower back pain with CT changes TECHNIQUE: Noncontrast lumbar spine MRI. COMPARISON: None. FINDINGS: Vertebrae: Lumbar vertebral body heights are preserved. Bone marrow signal is unremarkable. Alignment: There is 5 mm anterolisthesis of L5 on S1. Conus Medullaris: Ends at the L1 level L1-2: No evidence of central canal stenosis. L2-3: Mild broad-based disc bulge with mild central canal stenosis and mild left neural foraminal narrowing L3-4: Mild broad-based disc bulge with mild canal stenosis and mild bilateral neural foraminal narrowing L4-5: Mild broad-based disc bulge with mild canal stenosis and mild bilateral neural foraminal narrowing L5-S1: Moderate broad-based disc bulge with moderate canal stenosis and moderate bilateral neural foraminal narrowing Sacrum: Visualized upper sacrum and SI joints are unremarkable. MRI/Spine Lumbar (Routine) IMPRESSION: Multilevel degenerative changes in thoracolumbar spine most severe at the L5/S1 level with additional grade 1 anterolisthesis of L5 on S1. Reading Location: [facility]
[2024-10-30 17:05] LABS: CPK Total, Creatine Kinase 105 U/L (26-192)
[2024-10-30] MEDS: Ketorolac 15 MG/ML Vial IV (17:20)
--- NOTE | 2024-10-30 18:02 | CASEMGMT ---
Care Management Face to Face with patient for initial transition planning/care coordination assessment in the ED. This typewriters functional tester introduced self and role at [facility]. Patient asleep in bed upon entrance, but patient's niece, Key, agreed to answer questions. Care providers, pharmacy, and demographics verified. Admitting Diagnosis: Tachycardia, Intractable low back pain, Leukocytosis, Urinary retention Other diagnosis history: cerebral palsy, tachycardia PCP: none, resources given to patient's niece. Specialists: Dr. Hammer Preferred Pharmacy: [facility] Insurance: [employer] Medicare Prescription Benefit: yes, [employer] Living Will/HPOA: yes, with patient's sister, Kadi, listed as HCPOA. Not on file here; niece stated ability to ask patient's sister for copy to bring in. LNOK: sister, Kadi. Living Arrangements: lives by self, one story home with 3 steps to enter. Independent with all ADLs prior. Sister lives right next door. Transportation: niece drives patient to all necessary appointments. DME: cane, walker, transport chair, lifted toilet seat. HHC: none SNF/Rehab: [facility] following broken hip Community Resources: none Patient goals: Patient wishes to discharge home, but patient's niece states likely needing HHC at least. Patient's niece stated knowing patient may need SNF. Patient states he has no further needs or concerns at this time. Disposition Plan: admission to acute; RN CM/SW to follow for discharge planning needs that may arise. Umm Romo, [employer], PUBLIC SPEAKING INSTRUCTOR
[2024-10-30 19:55] LABS: Erythrocyte Sedimentation Rate 8 mm/hr (0-30)
[2024-10-30] MEDS: Acetaminophen 500 MG Tablet 1000 MG PO (21:35)
[2024-10-30 23:31] LABS: Allen Test Positive; Base Excess -4 mmol/L (-2 to +2); Bicarbonate 19.3 mmol/L (22-26); Blood Gas Specimen Type ART; Mode Not entered; O2 Delivery Device Not entered; PO2 149 mmHG (75-100); SITE R Radial; SO2 100 % (95-99); Total Carbon Dioxide 20 mmol/L; pCO2 25.8 mmHg (35-45); pH 7.48 (7.35-7.45)
[2024-10-30] MEDS: Vancomycin IV 1,000 MG/200 ML BAG 200 MG IV (23:54)
[2024-10-30] MEDS: Morphine 2 MG/ML Syringe IV (23:58)
[2024-10-30] MEDS: 0.9% Saline Lock 10 ML Syringe IV (23:59)
[2024-10-31] VITALS (14 sets, daily range): BP systolic 121–169; BP diastolic 62–119; PULSE 77–140; RESP 18–22; TEMP 36.6–37.8; O2SAT 94–108
[2024-10-31] MEDS: 0.9% Normal Saline (100mL Bag) 100 ML 15 ML IV (00:02)
[2024-10-31 00:16] LABS: Troponin-I HS 17 pg/mL (3.0-54.0)
[2024-10-31] MEDS: Piperacil/Tazobactam 3.375 GM in 0.9% Normal Saline (50mL MB+) 50 ML IV ×4 (00:16→22:14)
[2024-10-31 00:32] LABS: Amphetamine Urine NEGATIVE (<1000 ng/mL); Barbiturate Urine VISTA NEGATIVE (< 200 ng/mL); Benzodiazepine Urine VISTA NEGATIVE (< 200 ng/mL); Cocaine Urine VISTA NEGATIVE (< 300 ng/mL); Ecstacy Urine VISTA NEGATIVE (< 500 ng/mL); Methadone Urine VISTA NEGATIVE (< 300 ng/mL); Opiates Urine NEGATIVE (< 300 ng/mL); PCP Urine NEGATIVE (< 25 ng/mL); THC Urine VISTA NEGATIVE (< 50 ng/mL); Vista UDS pH Range 7
--- NOTE | 2024-10-31 00:44 | PCM.RX.CS ---
Consult Antibiotic Management Pharmacy has been consulted to manage selected antibiotic: Vancomycin Type of Intervention Type of Consult: New start Labs Labs: Sodium 133 mmol/L (136-145) L 10/30/24 12:45 Potassium 3.6 mmol/L (3.5-5.1) 10/30/24 12:45 Chloride 102 mmol/L (98-107) 10/30/24 12:45 Carbon Dioxide 23.0 mmol/L (21.0-32.0) 10/30/24 12:45 Anion Gap 7 (5-15) 10/30/24 12:45 BUN 15 mg/dL (7-18) 10/30/24 12:45 Creatinine 0.64 mg/dL (0.55-1.02) 10/30/24 12:45 Est GFR (MDRD) Af Amer 115 mL/min (>60) 10/30/24 12:45 Est GFR (MDRD) Non-Af 95 mL/min (>60) 10/30/24 12:45 BUN/Creatinine Ratio 23.4 RATIO (10-20) H 10/30/24 12:45 Glucose 138 mg/dL (74-106) H 10/30/24 12:45 Dosing Weight Weight used for dosin kg Estimated Creatinine Clearance Estimated Creatinine Clearance: 57 Goal Trough Goal Trough: 10-15 mcg/mL Pharmacy Plan for Drug Dosing Pharmacy Plan for Drug Dosing: Pharmacy Service will continue to monitor and adjust dosing as required. Follow-Up Labs Follow-Up Labs: Trough: Vancomycin Date/Time Labs Ordered Labs to be done on [date and time ordered]: 11/01/24 @[id number]
--- NOTE | 2024-10-31 03:02 | NURSING ---
Around 2100 the pt was found in the room, very confused and restless, pulling at her puentes, kimberly care given, repositioned. pt felt very hot, temp 99.7 ax, heart rate 138-140s, called and notified dr jiménez, orders obtained, ns bolus, labs, abgs, monitor, cxr, ct head. dose of morphine, lactic,tele, sed rate, esr, tsh, b12, zosy, vancomycin, resp panel. pt eventually was taken to ct and she then became very confused, restless, fought the ct staff and aide and refused to get the or cxr done. After the ct scan attempt, the pt came back to the room, very restless and confused, pulling at the tele and ivs, wanting to get out of here and go home. she then had an emesis of what looked like coffee ground on her gown and sheet, notified dr moya again, order to send it to lab attempted to gastric occult the emesis but it was not enough. he ordered a protonix gtt, a stool for occult blood, phenergan im for the nausea and to help w her restlessness.
[2024-10-31] MEDS: proMETHazine 25 MG/ML Syringe IM (03:29)
[2024-10-31] MEDS: oxyCODONE 5 MG Tablet PO ×2 (03:32→20:05)
[2024-10-31] MEDS: Pantoprazole Sodium 80 MG in 0.9% Normal Saline (100mL Bag) 80 ML 10 MG CONT INF ×2 (03:42→13:48)
[2024-10-31] MEDS: Metoprolol(XL)Succ 50 MG Tablet PO (06:15)
--- NOTE | 2024-10-31 06:20 | NURSING ---
pt hr 140-150s hallucinating, very confused. very restless, given metoprolol early
[2024-10-31 07:09] LABS: Hematocrit 36.4 % (37-47); Hemoglobin 11.8 g/dL (12.0-15.0); Mean Corp Hgb Conc 32.4 g/dL (32-36); Mean Corpuscular Hgb 30.1 pg (27.0-32.0); Mean Corpuscular Volume 92.9 fL (81-99); Mean Platelet Vol. 10.6 fl (6.2-12.0); Platelet Count 216 K/mm3 (150-450); RBC Distribution Width CV 13.5 % (11.6-14.6); RBC Distribution Width SD 45.8 fl (35.1-43.9); Red Blood Count 3.92 M/mm3 (4.2-5.4); White Blood Count 20.4 K/mm3 (4.4-11.0)
[2024-10-31 07:18] LABS: Scan Indicated on CBC? Y/N NO
[2024-10-31 07:24] LABS: Anion Gap 10 (5-15); BUN 13 mg/dL (7-18); BUN/Creat Ratio 15.7 RATIO (10-20); Calcium,Total 8.3 mg/dL (8.5-10.1); Chloride 103 mmol/L (98-107); Creatinine, Serum 0.83 mg/dL (0.55-1.02); EST Glomerular Filtration Rate 71 mL/min (>60); Est Glom Filt Rate - Afr Amer 86 mL/min (>60); Glucose 114 mg/dL (74-106); Potassium 3.4 mmol/L (3.5-5.1); Sodium Level 133 mmol/L (136-145)
--- NOTE | 2024-10-31 07:36 | PN.HOSP_ITS ---
Reason for Visit Reason for Visit: Back pain Subjective Subjective Patient presented with tachycardia which is chronic for her and she follows with cardiology, worsening low back pain and left rib pain with pain going down her leg. Patient reported on presentation that she fell about 2 weeks ago in her kitchen and landed on hard linoleum. 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 She had another fall about open week ago where she landed on her buttocks while in her bedroom. She denied any tingling or numbness but was complaining of pain that goes into her left buttocks and down her leg. On the day of presentation her sister tried to help her out of bed but her legs were weak so she had to put her back to bed. They reported she was having a lot of pain and was having a very hard time getting around. She does been having worsening constipation. She showed some confusion and agitation the emergency department and was given Ativan. She also was given some Ativan and Phenergan on the floor for significant agitation. Per the nursing staff she was getting out of bed ambulating independently and pulled her Lau out. This morning she is alert and oriented x 3 and sitting up in bed watching television and getting ready to eat breakfast. She denies any back pain currently and respiratory viral panel was positive for parainfluenza virus. Overnight, cultures were sent and she was started on Zosyn and vancomycin. Given her positive parainfluenza I think we can discontinue her vancomycin will continue Zosyn for right now and reevaluate tomorrow. Objective Data Objective Data Vital Signs: Vital Signs Temp Pulse Resp BP Pulse Ox O2 Del Method 97.9 F 140 H 22 H 149/119 H 108 Room Air 10/31/24 04:05 10/31/24 06:15 10/31/24 04:05 10/31/24 06:15 10/31/24 04:05 10/31/24 04:05 Oxygen Delivery Method Room Air Weight: 63 kg Body Mass Index (BMI) 21.7 Intake & Output: Intake and Output for Last 24 Hours 10/29/24 10/30/24 10/31/24 23:59 23:59 23:59 Intake Total 1000 / 1000 1350 / 1350 Output Total 500 / 500 Balance 1000 / 700 850 / 850 Lab / Micro Data 10/31/24 06:31 10/31/24 06:31 Labs: Laboratory Results - last 24 hr 10/30/24 00:00: Folate 13.90, TSH 0.640 10/30/24 12:45: WBC 22.2 H, RBC 4.25, Hgb 13.0, Hct 37.7, MCV 88.7, MCH 30.6, MCHC 34.5, RDW Std Deviation 43.2, RDW Coeff of Roselyn 13.2, Plt Count 240, MPV 10.0, Immature Gran % (Auto) 0.800, Neut % (Auto) 83.5 H, Lymph % (Auto) 4.4 L, [place] % (Auto) 11.2 H, Eos % (Auto) 0.0, Baso % (Auto) 0.1, Absolute Neuts (auto) 18.5 H, Absolute Lymphs (auto) 0.98, Nucleated RBC % 0, Differential Comment SCANNED, Diff Path Review January, ESR 8, Sodium 133 L, Potassium 3.6, Chloride 102, Carbon Dioxide 23.0, Anion Gap 7, BUN 15, Creatinine 0.64, Estim Creat Clear Calc 57.27, Est GFR (MDRD) Af Amer 115, Est GFR (MDRD) Non-Af 95, B UN/Creatinine Ratio 23.4 H, Glucose 138 H, Calcium 8.8, Total Bilirubin 0.70, AST 18, ALT 19, Alkaline Phosphatase 89, Total Creatine Kinase 105, Total Protein 6.3 L, Albumin 3.2, Globulin 3.1, Albumin/Globulin Ratio 1.0 10/30/24 14:45: Urine Color Yellow, Urine Clarity Clear, Urine pH 7.0, Ur Specific Frederic 1.010, Urine Protein 15 H, Urine Glucose (UA) Normal, Urine Ketones Negative, Urine Occult Blood 10 H, Urine Nitrite Negative, Urine Bilirubin Negative, Urine Urobilinogen Normal, Ur Leukocyte Esterase Negative, Urine RBC 0-5 SEEN, Urine WBC 0 SEEN, Ur Squamous Epith Cells 0 SEEN, Urine Bacteria 0 SEEN, Urine Mucus 0 SEEN 10/30/24 21:06: C-React Prot Ext Range 127.00 H 10/30/24 22:47: Urine Opiates Screen NEGATIVE, Urine Methadone Screen NEGATIVE, Ur Barbiturates Screen NEGATIVE, Ur Phencyclidine Scrn NEGATIVE, Ur Amphetamines Screen NEGATIVE, MDMA (Ecstasy) Screen NEGATIVE, U Benzodiazepines Scrn NEGATIVE, Urine Cocaine Screen NEGATIVE, U Cannabinoids Screen NEGATIVE, Ur Drug Screen Comment 10/30/24 23:28: Lactic Acid 1.0, Troponin I High Sens 17 10/31/24 06:31: WBC 20.4 H, RBC 3.92 L, Hgb 11.8 L, Hct 36.4 L, MCV 92.9, MCH 30.1, MCHC 32.4 D, RDW Std Deviation 45.8 H, RDW Coeff of Roselyn 13.5, Plt Count 216, MPV 10.6, Sodium 133 L, Potassium 3.4 L, Chloride 103, Carbon Dioxide 20.0 L, Anion Gap 10, BUN 13, Creatinine 0.83, Estim Creat Clear Calc 55.20, Est GFR (MDRD) Af Amer 86, Est GFR (MDRD) Non-Af 71, BUN/Creatinine Ratio 15.7, Glucose 114 H, Calcium 8.3 L ABG Data ABG results: ABG 10/30/24 23:28 Specimen Type ART Sample Site R Radial pH 7.48 H Bicarbonate Actual 19.3 L Total CO2 20 Base Excess -4 L O2 Saturation 100 H O2 % 21.0 ABG pCO2 25.8 L ABG pO2 149 H Roly Test Positive O2 Delivery Device Not entered Vent Mode Not entered Radiography Diagnostic Testing: Radiology Impression Chest/Abdomen/Pelvis CT 10/30/24 12:26 IMPRESSION: Small pericardial effusion. Findings suggestive of left basilar atelectasis. Distended urinary bladder. Loss of height of the L3 and L5 vertebrae. Red 1 anterior listhesis of L5 on S1. Hiatal hernia. One or more dose reduction techniques were used (e.g., Automated exposure control, adjustment of the mA and/or kV according to patient size, use of iterative reconstruction technique). Reading Location: [facility]IR-1 Lumbar Spine MRI 10/30/24 16:25 IMPRESSION: Multilevel degenerative changes in thoracolumbar spine most severe at the L5/S1 level with additional grade 1 anterolisthesis of L5 on S1. Reading Location: [facility] Physical Exam Const alert, oriented x3, no apparent distress, average body habitus and well nourished Constitutional Narrative: Elderly, white female, sitting up in bed watching television getting ready breakfast, appears comfortable, nontoxic, remembers nothing about last evening HEENT head/scalp atraumatic and moist oral mucous membranes HEENT Narrative: Mallampati 2, no thrush Head and Scalp: normocephalic Resp normal respiratory effort, no retractions and no use of accessory muscles Resp Narrative: Coarse breath sounds especially in the right base with few scattered crackles in the right lung field left lung field was clear Auscultation: crackles; Negative for rhonchi or wheezes Cardio regular rhythm, S1 normal heart sound, S2 normal heart sound, no murmurs, no rub, no gallops and no clicks Cardio Narrative: Tachycardia GI normal to inspection, nondistended, normoactive bowel sounds, soft to palpation and non-tender Extremity no clubbing, cyanosis or edema Extremity Narrative: Pedal pulses are 2+ Neuro no focal motor deficits Speech: speech normal Psych affect normal Psych Narrative: Very pleasant, calm, follows commands well, interacts appropriately, answers questions Assessment & Plan Assessment/Plan (1) Difficulty in walking: (2) Urinary retention: (3) Leukocytosis: (4) Intractable low back pain: (5) Tachycardia: (6) Parainfluenza virus infection: (7) Hypokalemia: PLAN: Plan Acute parainfluenza virus infection -Remains on room air -Suspect etiology for fever and possibly leukocytosis -chest x-ray is unimpressive -Continue supportive care Intractable low back pain -Patient has no complaints of low back pain today -Sounds like she had lumbar radiculopathy -MRI of the lumbar spine showed multilevel degenerative changes in the thoracolumbar spine that most severe at L5-S1 and grade 1 antereolisthesis of L5 on S1 -PT/OT consulted -Refer to physical therapy after discharge and if no improvement may need referral to spine surgery -No noted muscular weakness Urinary retention -Lau in place will continue for tonight try to remove tomorrow -Start Flomax 0.4 mg at at bedtime Hypokalemia -Replace and recheck in a.m. -Check a.m. magnesium level Leukocytosis -Cultures are pending -Patient febrile last evening -Vancomycin and Zosyn started we will stop the vancomycin and continue Zosyn for now -May be all related to parainfluenza virus infection as she also has a fairly significant monocytosis -UA is not consistent with infection -No infection noted on MRI of the lumbar spine Difficulty with ambulation -PT/OT consultation pending Essential hypertension/hyperlipidemia -Hold home apple cider, flaxseed oil, garlic, red yeast rice -Continue amlodipine 5 mg p.o. daily -Continue lisinopril 20 mg p.o. daily -Continue metoprolol 50 mg daily but increase dose to 100 mg as we do have enough blood pressure and she remains tachycardic History of palpitations and tachycardia -Upon review of her outpatient data it appears that her heart rate is fairly consistently in the 100-1 20 range -Slightly higher here so suspect it is related to acute infection -Increase beta-janelle as noted above -Will continue to monitor on telemetry for now History of cerebral palsy -Lives independently -PT/OT consultation pending DVT prophylaxis -Continue enoxaparin 40 daily CODE STATUS -Full code is verified on admission Charges/Coding Visit Charges Inpatient E&M: 68762 Subs Hosp L2
[2024-10-31 08:34] LABS: Erythrocyte Sedimentation Rate 13 mm/hr (0-30)
[2024-10-31] MEDS: Potassium Chloride Oral Tablet 20 MEQ 40 MEQ PO (09:25)
[2024-10-31] MEDS: amLODIPine 5 MG Tablet PO (09:25)
[2024-10-31] MEDS: Enoxaparin 40 MG/0.4 ML Syringe SC (09:25)
[2024-10-31] MEDS: Cholecalciferol (VIT D3) 25 MCG TABLET (1,000 UNITS) 50 MCG PO (09:26)
[2024-10-31] MEDS: Lisinopril 20 MG Tablet PO (09:26)
[2024-10-31] MEDS: Metoprolol(XL)Succ 100 MG Tablet PO (09:34)
[2024-10-31 09:36] LABS: Vitamin B12 377 pg/mL (211-911)
[2024-10-31] MEDS: Lactated Ringers 1,000 ML 75 ML IV (10:03)
[2024-10-31] MEDS: Acetaminophen 500 MG Tablet 1000 MG PO ×2 (14:03→20:05)
--- NOTE | 2024-10-31 15:07 | CASEMGMT ---
Social Work SW created in [facility] a list of halfway facilities in network w/pt's insurance, in pt's preferred geographic area, and complete w/quality and resource use data. LÓPEZ Hawk
[2024-10-31] MEDS: Tamsulosin HCl 0.4 MG Capsule PO (17:58)
--- NOTE | 2024-10-31 18:21 | PCM.HOSP.N ---
Hospitalist Note 2/2 blood cultures + for GPC in chains. Will restart Vanc. Check ECHO. Consult ID to see on Saturday.
[2024-10-31] MEDS: MELATONIN 3 MG TABLET PO (20:05)
[2024-10-31] MEDS: RisperiDONE 0.5 MG Tablet PO (20:11)
[2024-10-31] MEDS: Vancomycin IV 1,000 MG/200 ML BAG 200 MG IV (20:24)
--- NOTE | 2024-10-31 20:34 | PCM.RX.CS ---
Consult Antibiotic Management Pharmacy has been consulted to manage selected antibiotic: Vancomycin Type of Intervention Type of Consult: New start Labs Labs: Sodium 133 mmol/L (136-145) L 10/31/24 06:31 Potassium 3.4 mmol/L (3.5-5.1) L 10/31/24 06:31 Chloride 103 mmol/L (98-107) 10/31/24 06:31 Carbon Dioxide 20.0 mmol/L (21.0-32.0) L 10/31/24 06:31 Anion Gap 10 (5-15) 10/31/24 06:31 BUN 13 mg/dL (7-18) 10/31/24 06:31 Creatinine 0.83 mg/dL (0.55-1.02) 10/31/24 06:31 Est GFR (MDRD) Af Amer 86 mL/min (>60) 10/31/24 06:31 Est GFR (MDRD) Non-Af 71 mL/min (>60) 10/31/24 06:31 BUN/Creatinine Ratio 15.7 RATIO (10-20) 10/31/24 06:31 Glucose 114 mg/dL (74-106) H 10/31/24 06:31 Microbiology Microbiology: Microbiology 10/30/24 23:40 Blood Culture (Wb) - Right Hand Blood Culture - Preliminary 10/30/24 23:28 Blood Culture (Wb) - Left Wrist Blood Culture - Preliminary 10/30/24 23:20 Mucosa - Nasopharyngeal Respiratory Panel (PCR) - Final Parainfluenza 4 10/31/24 07:10 Nasal Secretion SARS-CoV-2 Antigen (Rapid) - Final Dosing Weight Weight used for dosin kg Estimated Creatinine Clearance Estimated Creatinine Clearance: 55 Goal Trough Goal Trough: 15-20 mcg/mL Pharmacy Plan for Drug Dosing Pharmacy Plan for Drug Dosing: Pharmacy Service will continue to monitor and adjust dosing as required. Follow-Up Labs Follow-Up Labs: Trough: Vancomycin Date/Time Labs Ordered Labs to be done on [date and time ordered]: 11/02/24 @0800
[2024-10-31] MEDS: Morphine 2 MG/ML Syringe IV (23:00)
[2024-11-01] VITALS (9 sets, daily range): BP systolic 104–157; BP diastolic 52–94; PULSE 89–142; RESP 16–20; TEMP 36.9–37.2; O2SAT 95–99
[2024-11-01] MEDS: Pramipexole Di-HCl 0.125 MG Tablet PO (01:28)
--- NOTE | 2024-11-01 02:06 | NURSING ---
Patient very restless this shift. She pulled out her IV from her left forearm. Attempted to restart a new IV site, patient became very agitated, thrashing and pulling away from staff. Care provided via 3 staff members. Patient persistently tugging on tele machine, Lau, and IV tubing, despite multiple attempts to redirect. Patient removed tele machine, replaced multiple times before finally removed. Remaining SL wrapped with acewrap to protect it. PRN pain medication given as ordered for back and leg pain. Hospitalist notified and new order for mirapex given.
[2024-11-01] MEDS: Piperacil/Tazobactam 3.375 GM in 0.9% Normal Saline (50mL MB+) 50 ML IV ×3 (05:27→21:44)
[2024-11-01] MEDS: Acetaminophen 500 MG Tablet 1000 MG PO ×3 (05:30→20:05)
[2024-11-01 06:12] LABS: Absolute Lymphocyte Count 1.21 X10^3/uL (0.83-4.51); Absolute Neutrophil Count 16.7 X10^3/uL (2.0-7.7); Basophil# 0.03 X10^3/uL; Basophil% 0.2 % (0-1); Hematocrit 35.8 % (37-47); Hemoglobin 11.6 g/dL (12.0-15.0); Lymphocyte # 1.21 X10^3/ul (0.83-4.51); Lymphocyte % 6.2 % (19-41); Mean Corp Hgb Conc 32.4 g/dL (32-36); Mean Corpuscular Hgb 30.1 pg (27.0-32.0); Mean Corpuscular Volume 92.7 fL (81-99); Mean Platelet Vol. 10.9 fl (6.2-12.0); Monocyte# 1.49 X10^3/uL; Monocyte% 7.6 % (0-10); NRBC Flagged by Analyzer 0 % (0-5); Neutrophil # 16.65 X10^3/uL (2.7-7.7); Neutrophil % 85.5 % (47-70); Platelet Count 205 K/mm3 (150-450); RBC Distribution Width CV 13.4 % (11.6-14.6); RBC Distribution Width SD 45.4 fl (35.1-43.9); Red Blood Count 3.86 M/mm3 (4.2-5.4); White Blood Count 19.5 K/mm3 (4.4-11.0)
[2024-11-01 06:42] LABS: Anion Gap 9 (5-15); BUN 15 mg/dL (7-18); BUN/Creat Ratio 22.6 RATIO (10-20); Calcium,Total 8.7 mg/dL (8.5-10.1); Chloride 107 mmol/L (98-107); Creatinine, Serum 0.66 mg/dL (0.55-1.02); EST Glomerular Filtration Rate 92 mL/min (>60); Est Glom Filt Rate - Afr Amer 111 mL/min (>60); Estimated Creatinine Clearance 57.27 ml/min; Glucose 103 mg/dL (74-106); Magnesium 1.8 mg/dL (1.6-2.6); Phosphorus 2.1 mg/dL (2.5-4.9); Potassium 3.1 mmol/L (3.5-5.1); Sodium Level 139 mmol/L (136-145)
[2024-11-01] MEDS: Vancomycin IV 500 MG/100 ML BAG 100 MG IV ×2 (07:57→20:09)
[2024-11-01] MEDS: Pantoprazole Sodium 80 MG in 0.9% Normal Saline (100mL Bag) 80 ML 10 MG CONT INF (07:59)
[2024-11-01] MEDS: Cholecalciferol (VIT D3) 25 MCG TABLET (1,000 UNITS) 50 MCG PO (08:10)
[2024-11-01] MEDS: Lisinopril 20 MG Tablet PO (08:10)
[2024-11-01] MEDS: amLODIPine 5 MG Tablet PO (08:10)
[2024-11-01] MEDS: Enoxaparin 40 MG/0.4 ML Syringe SC (08:10)
[2024-11-01] MEDS: Metoprolol(XL)Succ 100 MG Tablet PO (08:15)
--- NOTE | 2024-11-01 08:33 | ECHOD_ITS ---
Reason For Study: GP BACTEREMIA R/O ENDOCARDITIS Procedure This was a 2D Doppler, Color Flow transthoracic echocardiogram. Technically difficult study due to confused and uncooperative patient. Exam performed portable in patient room. Left Ventricle Normal LV size. Left ventricular systolic function is normal. The left ventricular ejection fraction is 65 %. No regional wall motion abnormalities noted. Right Ventricle Normal RV size. Normal systolic function. Atria Normal left atrium. Normal right atrium. Mitral Valve Normal mitral valve. Tricuspid Valve Normal tricuspid valve. Aortic Valve Trisinus/trileaflet aortic valve. Pulmonic Valve Normal pulmonic valve. Great Vessels Normal aortic root. The pulmonary artery is normal size. Normal inferior vena cava. Pericardium/Pleural No pericardial effusion. MMode/2D Measurements & Calculations RVDd: 2.2 cm LAV(MOD-bp): 24.1 ml LVAd ap4: 17.8 cm2 LAV(MOD-bp) Indexed: 13.9 ml/m2 LVLd ap4: 6.9 cm LAV(MOD-sp2): 21.8 ml EDV(MOD- sp4): 38.1 ml LAV(MOD-sp4): 25.5 ml EDV(sp4- el): 38.7 ml LVAs ap4: 9.3 cm2 LVLs ap4: 5.8 cm ESV(MOD- sp4): 13.9 ml ESV(sp4- el): 12.7 ml EF(MOD- sp4): 63.5 % EF(sp4- el): 67.2 % _ SV(MOD-sp4): 24.2 ml SV(sp4-el): 26.0 ml LA A4 area: 12.2 cm2 SI(MOD-sp4): 14.0 ml/m2 _ LA dimension(2D): 2.5 cm RA A4 area: 8.2 cm2 Doppler Measurements & Calculations MV E max spencer: 128.9 cm/sec Ao V2 max: 162.1 cm/sec LV V1 max: 114.8 cm/sec Ao max P.5 mmHg LV V1 max P.3 mmHg Ao V2 mean: 106.3 cm/sec LV V1 mean P.4 mmHg Ao mean P.3 mmHg LV V1 mean: 69.7 cm/sec Ao V2 VTI: 24.7 cm LV V1 VTI: 16.0 cm AV (velocity ratio): 0.65 _ PA V2 max: 91.6 cm/sec PA V2 mean: 67.8 cm/sec ECHO/Echo Complete Interpretation Summary Normal LV size. Left ventricular systolic function is normal. The left ventricular ejection fraction is 65 %. Structurally normal valves. Ordering Physician: Marleni Menendez Referring Physician: BILL PCP Performed By: Martha Landa RCS
[2024-11-01] MEDS: Potassium Phosphate 40 MM in 0.9% Normal Saline (500mL Bag) 500 ML 62.5 MM IV (09:48)
--- NOTE | 2024-11-01 13:40 | CT_ITS ---
PROCEDURE: ABDOMEN/PELVIS WITH CONTRAST REASON FOR EXAM: Bacteremia TECHNIQUE: Contiguous axial scans of 3.75 mm slice thicknesses with intravenous and oral contrast. Sagittal and coronal reconstruction images were also obtained. One or more dose reduction techniques were used (e.g., automated exposure control, adjustment of mA and/or kv according to patient size, use of iterative reconstruction technique). IV CONTRAST: Isovue 300, 99 mL. COMPARISON: CT dated 10/30/2024. FINDINGS: Lung bases: Clear. Elevation of the left hemidiaphragm. Liver: Unremarkable. Gallbladder: Unremarkable. Spleen: Unremarkable. Pancreas: Atrophic. Mildly prominent pancreatic duct Adrenals: Unremarkable. Kidneys: Unremarkable. Bladder: Decompressed. Balloon tip Lau catheter. Reproductive Organs: Unremarkable. Bowel: Fecal debris throughout the colon. Small hiatal hernia. Appendix: Normal. Lymph nodes: No suspicious lymph node enlargement. Vasculature: Major vascular structures are unremarkable. Peritoneum / Retroperitoneum: No ascites. No free air. Bones: Multilevel spondylosis. Severe degenerative disc disease at L5-S1. Mild grade 1 anterolisthesis of L5 on S1. Multiple Schmorl's nodes, lumbar spine. A left hip screw and compression plate device. CT/Abdomen/Pelvis WITH Contrast IMPRESSION: 1. Atrophic changes of the right kidney with prominent pancreatic duct. 2. Grade 1 anterolisthesis, L5 on S1. 3. Multilevel spondylosis and degenerative disc disease. 4. Small hiatal hernia. 5. Other nonacute findings detailed above. Reading Location: [facility]
--- NOTE | 2024-11-01 16:19 | PN.HOSP_ITS ---
Reason for Visit Reason for Visit: Back pain Subjective Subjective Patient again with agitation overnight pulling out her IVs. Alert and oriented to person time and president this morning was confused on her current location and told me she was at a warehouse. Able to have an interactive conversation. Per discussion with she and her family, she has had significant issues with her bowels lately with constipation. She has never had a colonoscopy. Blood cultures are positive for alpha-hemolytic strep organisms is not strep pneumo so the concern would be that it could be possibly strep bovis. If so she will need a colonoscopy. I do not have a source of infection and discussed this with family today. They do states she has some bad teeth that have fractured but no signs of abscess or drainage at this time. Objective Data Objective Data Vital Signs: Vital Signs Temp Pulse Resp BP Pulse Ox O2 Del Method 99 F 89 16 135/67 H 98 Room Air 11/01/24 16:12 11/01/24 16:12 11/01/24 16:12 11/01/24 16:12 11/01/24 16:12 11/01/24 16:12 Oxygen Delivery Method Room Air Weight: 63 kg Body Mass Index (BMI) 21.7 Intake & Output: Intake and Output for Last 24 Hours 10/30/24 10/31/24 11/01/24 23:59 23:59 23:59 Intake Total 1000 / 1000 2831.0 / 3031.0 1084.33 / 1084.33 Output Total 875 / 2675 2800 / 2800 Balance 1000 / 700 1956.0 / 356.0 -1715.67 / -1715.67 Lab / Micro Data 11/01/24 04:32 11/01/24 04:32 Labs: Laboratory Results - last 24 hr 11/01/24 04:32: WBC 19.5 H, RBC 3.86 L, Hgb 11.6 L, Hct 35.8 L, MCV 92.7, MCH 30.1, MCHC 32.4, RDW Std Deviation 45.4 H, RDW Coeff of Roselyn 13.4, Plt Count 205, MPV 10.9, Immature Gran % (Auto) 0.500, Neut % (Auto) 85.5 H, Lymph % (Auto) 6.2 L, [place] % (Auto) 7.6, Eos % (Auto) 0.0, Baso % (Auto) 0.2, Absolute Neuts (auto) 16.7 H, Absolute Lymphs (auto) 1.21, Nucleated RBC % 0, Sodium 139, Potassium 3.1 L, Chloride 107, Carbon Dioxide 23.0, Anion Gap 9, BUN 15, Creatinine 0.66, Estim Creat Clear Calc 57.27, Est GFR (MDRD) Af Amer 111, Est GFR (MDRD) Non-Af 92, BUN/Creatinine Ratio 22.6 H, Glucose 103, Calcium 8.7, Phosphorus 2.1 L, Magnesium 1.8 Micro: Microbiology 10/30/24 23:40 Blood Culture (Wb) - Right Hand Bacteria Detection (PCR) - Final Strep not Strep pneumo 10/30/24 23:40 Blood Culture (Wb) - Right Hand Blood Culture - Preliminary Alpha hemolytic organism 10/30/24 23:28 Blood Culture (Wb) - Left Wrist Blood Culture - Preliminary Alpha hemolytic organism 10/30/24 23:20 Mucosa - Nasopharyngeal Respiratory Panel (PCR) - Final Parainfluenza 4 10/31/24 07:10 Nasal Secretion SARS-CoV-2 Antigen (Rapid) - Final Physical Exam Const alert, no apparent distress, average body habitus and well nourished Constitutional Narrative: Elderly, white female, lying in bed appears comfortable, oriented to time, self and POTUS but not location, sister and niece at bedside General Appearance: cooperative HEENT normocephalic, head/scalp atraumatic and hearing grossly normal bilaterally HEENT Narrative: Mallampati 2, dentition is poor, no thrush Eyes EOMs intact bilaterally and conjunctivae normal Eyes Narrative: No scleral icterus Neck full ROM Resp normal respiratory effort, no retractions, no use of accessory muscles and clear to auscultation bilaterally Resp Narrative: Crackly diffusely but no signs of respiratory extremis Auscultation: crackles; Negative for rhonchi or wheezes Cardio regular rhythm, S1 normal heart sound, S2 normal heart sound, no murmurs, no rub, no gallops and no clicks Cardio Narrative: Tachycardia GI normal to inspection, nondistended, normoactive bowel sounds, soft to palpation and non-tender Extremity no clubbing, cyanosis or edema Extremity Narrative: Pedal pulses are 2+ Neuro no focal motor deficits Speech: speech normal Psych affect normal Psych Narrative: Very pleasant, calm, follows commands well, interacts appropriately, answers questions Assessment & Plan Assessment/Plan (1) Difficulty in walking: (2) Urinary retention: (3) Leukocytosis: (4) Intractable low back pain: (5) Tachycardia: (6) Parainfluenza virus infection: (7) Hypokalemia: PLAN: Plan Acute parainfluenza virus infection -Remains on room air -Suspect this is incidental finding and not anything related to while she is hospitalized -chest x-ray is unimpressive -Continue supportive care Alpha-hemolytic strep bacteremia -Identified as nonstrep pneumo -awaiting identification -Continue vancomycin and Zosyn for now -Repeat blood cultures in a.m. -Check echocardiogram -Source is unclear--> patient does have dental caries and has had altered stools -If strep bovis would need colonoscopy -Maxillary and mandibular x-rays pending to assess for signs of infection -Given back pain and bacteremia will check contrasted MRI is noncontrasted was unremarkable -White count has come down some -Currently no clinical findings consistent with bacterial endocarditis -ID consult Intractable low back pain -Intermittent complaints now -Sounds like she had lumbar radiculopathy -MRI of the lumbar spine showed multilevel degenerative changes in the thoracolumbar spine that most severe at L5-S1 and grade 1 antereolisthesis of L5 on S1 -->Will check MRI with contrast in light of bacteremia -PT/OT following -Refer to physical therapy after discharge and if no improvement may need referral to spine surgery -No noted muscular weakness Urinary retention -Continue Lau for now -Continue Flomax 0.4 mg at at bedtime Hypokalemia/hypophosphatemia -40 mmol of IV potassium phosphorus given Repeat lab in a.m. Leukocytosis -Suspect related to the above bacterial infection with gram-positive bacteremia -Slowly trending down Difficulty with ambulation -PT/OT following Essential hypertension/hyperlipidemia -Hold home apple cider, flaxseed oil, garlic, red yeast rice -Continue amlodipine 5 mg p.o. daily -Continue lisinopril 20 mg p.o. daily -Continue metoprolol 100 mg daily -Increased from her home dose of 50 mg daily due to elevated blood pressure and tachycardia -Both blood pressure and heart rate are better with increased dose History of palpitations and tachycardia -Upon review of her outpatient data it appears that her heart rate is fairly consistently in the 100-1 20 range -Slightly higher here so suspect it is related to acute infection -Continue metoprolol as ordered above -Will continue to monitor on telemetry for now History of cerebral palsy -Lives independently -PT/OT consultation pending DVT prophylaxis -Continue enoxaparin 40 daily CODE STATUS -Full code is verified on admission Charges/Coding Visit Charges Inpatient E&M: 99402 Subs Hosp L3
[2024-11-01] MEDS: Tamsulosin HCl 0.4 MG Capsule PO (16:59)
--- NOTE | 2024-11-01 17:48 | NURSING ---
pt to ct scan
--- NOTE | 2024-11-01 18:10 | RAD_ITS ---
PROCEDURE: MANDIBLE MIN 4 VIEWS REASON FOR EXAM: No pain. TECHNIQUE: 4 view(s) of the mandible. COMPARISON: None. FINDINGS: No signs of mandibular fracture. Multiple metallic dental enhancements. Visualized sinuses are unremarkable. Cervical spine spondylosis in multilevel degenerative disc disease. Soft tissues unremarkable. RAD/Mandible Min 4 Views IMPRESSION: No acute osseous abnormalities are demonstrated. Nonacute findings detailed above. Reading Location: [facility]
[2024-11-01] MEDS: RisperiDONE 0.5 MG Tablet PO (20:09)
[2024-11-01] MEDS: MELATONIN 3 MG TABLET PO (20:09)
[2024-11-02] VITALS (8 sets, daily range): BP systolic 131–158; BP diastolic 67–97; PULSE 108–125; RESP 16–20; TEMP 36.1–36.7; O2SAT 97–100
[2024-11-02] MEDS: Pantoprazole Sodium 80 MG in 0.9% Normal Saline (100mL Bag) 80 ML 10 MG CONT INF ×2 (00:08→10:45)
[2024-11-02] MEDS: Acetaminophen 500 MG Tablet 1000 MG PO ×3 (05:58→21:38)
[2024-11-02] MEDS: Piperacil/Tazobactam 3.375 GM in 0.9% Normal Saline (50mL MB+) 50 ML IV (05:58)
--- NOTE | 2024-11-02 08:00 | MRI_ITS ---
PROCEDURE: MRI lumbar spine without and with IV contrast REASON FOR EXAM: Pain TECHNIQUE: Multisequence multiplanar MR images of the lumbar spine were obtained before and after the administration of intravenous contrast. COMPARISON: 10/30/2024 FINDINGS: Vertebral body heights are within normal limits. Diffuse bone marrow edema throughout the L5 and S1 vertebral bodies with associated enhancement. No disc enhancement at this level. Mild adjacent paravertebral edema/enhancement. No paraspinal fluid collection. Degenerative grade 1 anterolisthesis of L5-S1. Alignment is otherwise intact. Multilevel disc desiccation and disc space narrowing. Moderate paraspinal muscle atrophy. No paraspinal mass. Conus medullaris is within normal limits. L1-2: Minimal posterior disc bulge. Mild bilateral facet arthrosis and ligamentum flavum hypertrophy. No significant spinal stenosis or foraminal narrowing. L2-3: Minimal posterior disc bulge. Moderate bilateral facet arthrosis and ligamentum flavum hypertrophy. Mild spinal stenosis. Moderate bilateral foraminal narrowing. L3-4: Minimal posterior disc osteophyte complex. Moderate bilateral facet arthrosis and ligamentum flavum hypertrophy. Mild/moderate spinal stenosis. Moderate bilateral foraminal narrowing. L4-5: Posterior disc osteophyte complex. Moderate bilateral facet arthrosis and ligamentum flavum hypertrophy. Mild/moderate spinal stenosis. Moderate bilateral foraminal narrowing. L5-S1: Grade 1 anterolisthesis with uncovering of the posterior disc. Superimposed diffuse posterior disc bulge. Severe bilateral facet arthrosis including marked marginal osteophytes, small joint effusions and capsulitis/synovitis. Ligamentum flavum hypertrophy. Moderate/severe spinal stenosis, greatest at the level of the mid S1 vertebral body. Severe bilateral foraminal narrowing. MRI/Spine Lumbar W/WO Contrast IMPRESSION: 1. Acquired multilevel degenerative changes, greatest at L5-S1 including modera te/severe spinal stenosis and severe bilateral foraminal narrowing. See level by level comments above. 2. Degenerative grade 1 anterolisthesis of L5-S1. 3. Moderate diffuse bone marrow edema throughout the L5 and S1 vertebral bodies with associated bone marrow and paravertebral enhancement. No associated disc enhancement at this level. Findings could rela te to degenerative change however osteomyelitis can not be excluded. Please correlate clinically. Reading Location: [facility]
[2024-11-02 08:09] LABS: Absolute Lymphocyte Count 1.22 X10^3/uL (0.83-4.51); Absolute Neutrophil Count 11.1 X10^3/uL (2.0-7.7); Basophil# 0.05 X10^3/uL; Basophil% 0.4 % (0-1); Eosinophil# 0.03 X10^3/uL; Eosinophils% 0.2 % (0-5); Hematocrit 32.7 % (37-47); Lymphocyte # 1.22 X10^3/ul (0.83-4.51); Mean Corp Hgb Conc 33.6 g/dL (32-36); Mean Corpuscular Hgb 30.2 pg (27.0-32.0); Mean Corpuscular Volume 89.8 fL (81-99); Mean Platelet Vol. 10.1 fl (6.2-12.0); Monocyte# 1.05 X10^3/uL; Monocyte% 7.8 % (0-10); NRBC Flagged by Analyzer 0 % (0-5); Neutrophil # 11.12 X10^3/uL (2.7-7.7); Neutrophil % 82.1 % (47-70); Platelet Count 206 K/mm3 (150-450); RBC Distribution Width CV 13.2 % (11.6-14.6); RBC Distribution Width SD 43.9 fl (35.1-43.9); Red Blood Count 3.64 M/mm3 (4.2-5.4); White Blood Count 13.5 K/mm3 (4.4-11.0)
[2024-11-02 08:55] LABS: Vancomycin, Trough Level 8.5 ug/mL (5.0-15.0)
--- NOTE | 2024-11-02 09:02 | PN.HOSP_ITS ---
Reason for Visit Reason for Visit: Diagnoses Other viral infections of unspecified site (10/30/24) Elevated white blood cell count, unspecified (10/30/24) Hypokalemia (10/30/24) Other low back pain (10/30/24) Tachycardia, unspecified (10/30/24) Difficulty in walking, not elsewhere classified (10/30/24) Retention of urine, unspecified (10/30/24) Subjective Subjective Patient is a 79-year-old lady with underlying history of cerebral palsy who presented with worsening back pain and difficulty with ambulation. Patient tested positive for acute parainfluenza virus. Hospital stay complicated by alphahemolytic strep bacteremia. Admitted to regular nursing floor for further management Objective Data Objective Data Vital Signs: Vital Signs Temp Pulse Resp BP Pulse Ox O2 Del Method 96.9 F L 125 H 20 H 155/97 H 97 Room Air 11/02/24 06:06 11/02/24 06:06 11/02/24 06:06 11/02/24 06:06 11/02/24 06:06 11/02/24 06:06 Oxygen Delivery Method Room Air Weight: 63 kg Body Mass Index (BMI) 21.7 Intake & Output: Intake and Output for Last 24 Hours 10/31/24 11/01/24 11/02/24 23:59 23:59 23:59 Intake Total 2831.0 / 3031.0 2547.6633 / 2547.6633 87.17 / 87.17 Output Total 875 / 2675 4000 / 4000 600 / 600 Balance 1956.0 / 356.0 -1452.3367 / -1452.3367 -512.83 / -512.83 Lab / Micro Data 11/02/24 07:45 11/02/24 07:45 Labs: Laboratory Results - last 24 hr 11/02/24 07:45: WBC 13.5 H, RBC 3.64 L, Hgb 11.0 L, Hct 32.7 L, MCV 89.8, MCH 30.2, MCHC 33.6, RDW Std Deviation 43.9, RDW Coeff of Roselyn 13.2, Plt Count 206, MPV 10.1, Immature Gran % (Auto) 0.500, Neut % (Auto) 82.1 H, Lymph % (Auto) 9.0 L, [place] % (Auto) 7.8, Eos % (Auto) 0.2, Baso % (Auto) 0.4, Absolute Neuts (auto) 11.1 H, Absolute Lymphs (auto) 1.22, Nucleated RBC % 0, Vancomycin Trough 8.5 Micro: Microbiology 10/30/24 23:28 Blood Culture (Wb) - Left Wrist Blood Culture - Final Alpha hemolytic organism 10/30/24 23:40 Blood Culture (Wb) - Right Hand Bacteria Detection (PCR) - Final Strep not Strep pneumo 10/30/24 23:40 Blood Culture (Wb) - Right Hand Blood Culture - Final Streptococcus alactolyticus 10/30/24 23:20 Mucosa - Nasopharyngeal Respiratory Panel (PCR) - Final Parainfluenza 4 10/31/24 07:10 Nasal Secretion SARS-CoV-2 Antigen (Rapid) - Final Radiography Diagnostic Testing: Radiology Impression Abdomen/Pelvis CT 11/01/24 13:40 IMPRESSION: 1. Atrophic changes of the right kidney with prominent pancreatic duct. 2. Grade 1 anterolisthesis, L5 on S1. 3. Multilevel spondylosis and degenerative disc disease. 4. Small hiatal hernia. 5. Other nonacute findings detailed above. Reading Location: [facility] Mandible X-Ray 11/01/24 18:10 IMPRESSION: No acute osseous abnormalities are demonstrated. Nonacute findings detailed above. [facility] Physical Exam Narrative GENERAL: cooperative HEENT: Atraumatic; normocephalic EYES; Anicteric, Normal Conjunctiva NECK; supple, normal thyroid, RESPIRATORY: Diminished to auscultation CARDIOVASCULAR: Regular S1 S2, GI: soft, normoactive bowel sounds, : No Renal angle tenderness; EXTREMITIES: No edema, no clubbing, MUSCULOSKELETAL: no muscle wasting NEURO: Awake; no lateralizing signs. SKIN: No Rash PSYCH; Flat affect Assessment & Plan Assessment/Plan (1) Difficulty in walking: (2) Urinary retention: (3) Leukocytosis: (4) Intractable low back pain: (5) Tachycardia: (6) Parainfluenza virus infection: (7) Hypokalemia: PLAN: Plan Patient is a 79-year-old lady with underlying history of cerebral palsy who presented with worsening back pain and difficulty with ambulation. Patient tested positive for acute parainfluenza virus. Hospital stay complicated by alphahemolytic strep bacteremia. Admitted to regular nursing floor for further management 1. Acute parainfluenza virus infection ? Managed with supportive care 2. Streptococcus alactolyticus bacteremia ? Etiology not clear. Repeat blood cultures ordered patient started on broad- spectrum antibiotic therapy consult placed to ID 3. Intractable low back pain ?MRI of the lumbar spine showed multilevel degenerative changes in the thoracolumbar spine that most severe at L5-S1 and grade 1 antereolisthesis of L5 on S1. In view of patient bacteremia repeat MRI with contrast was ordered 4. Physical deconditioning ? Requested for PT OT eval and protective services social worker to assist with discharge planning 5. Acute urinary retention Patient was started on Flomax Lau catheter was placed Urinary retention 6. Hypophosphatemia ? corrected per protocol 7. Hypokalemia ? Corrected per protocol Cerebral palsy ? Supportive care 9. Hypertension ? Blood pressure controlled, home medications continued with dose adjustment as needed 10. DVT prophylaxis -Continue enoxaparin 40 daily Time spent in the patient's overall evaluation,decision-making process, review of diagnostic data, adjustment of management, discussion with other providers, nursing nursing and ancillary staff involved in patient's care documentation, 38 Minutes Charges/Coding Visit Charges Inpatient E&M: 00661 [facility] Hosp L2
--- NOTE | 2024-11-02 09:07 | CASEMGMT ---
Updates with pts insurance card sent to [facility]. Pending acceptance. Elisabeth Daniels DC Planning Asst.
--- NOTE | 2024-11-02 09:20 | CASEMGMT ---
[facility] has accepted and will submit for precert. SW updated. Elisabeth Daniels DC Planning Asst.
--- NOTE | 2024-11-02 09:23 | PCM.RX.CS ---
Consult Antibiotic Management Pharmacy has been consulted to manage selected antibiotic: Vancomycin Type of Intervention Type of Consult: Follow-up Labs Labs: Vancomycin Trough 8.5 ug/mL (5.0-15.0) 11/02/24 07:45 Microbiology Microbiology: Microbiology 10/30/24 23:28 Blood Culture (Wb) - Left Wrist Blood Culture - Final Alpha hemolytic organism 10/30/24 23:40 Blood Culture (Wb) - Right Hand Bacteria Detection (PCR) - Final Strep not Strep pneumo 10/30/24 23:40 Blood Culture (Wb) - Right Hand Blood Culture - Final Streptococcus alactolyticus 10/30/24 23:20 Mucosa - Nasopharyngeal Respiratory Panel (PCR) - Final Parainfluenza 4 10/31/24 07:10 Nasal Secretion SARS-CoV-2 Antigen (Rapid) - Final Goal Trough Goal Trough: 15-20 mcg/mL Pharmacy Plan for Drug Dosing Pharmacy Plan for Drug Dosing: VANCOMYCIN LEVEL RECEIVED Current Vancomycin Dose: 500mg Q12H Number of Doses Received: 500mg x2, 1000mg x2 Vancomycin Level: 8.5 Hours Since Last Dose: 11.5 Renal Function: sCr 0.66 (11/01/24) Renal Function Trend: stable Lab/Micro: pending Vancomycin Plan/Comments: Increase Vancomycin dosing regimen to 1000mg Q12H due to SUBtherapeutic drug level Pending Level: Vancomycin trough @ 21:30 11/03/24 Pharmacy Service will continue to monitor and adjust dosing as required. Follow-Up Labs Follow-Up Labs: Trough: Vancomycin (11/03/24 @ 21:30)
[2024-11-02] MEDS: Cholecalciferol (VIT D3) 25 MCG TABLET (1,000 UNITS) 50 MCG PO (10:22)
[2024-11-02] MEDS: Lisinopril 20 MG Tablet PO (10:23)
[2024-11-02] MEDS: Enoxaparin 40 MG/0.4 ML Syringe SC (10:23)
[2024-11-02] MEDS: amLODIPine 5 MG Tablet PO (10:23)
[2024-11-02] MEDS: Metoprolol(XL)Succ 100 MG Tablet PO (10:23)
[2024-11-02] MEDS: Vancomycin IV 1,000 MG/200 ML BAG 200 MG IV (10:24)
[2024-11-02 10:25] LABS: ALB/GLOB Ratio 0.7 RATIO (0.9-2.4); AST(SGOT) 37 U/L (15-37); Alanine Aminotransfer ALT/SGPT 30 U/L (13-56); Albumin, Serum 2.4 g/dL (3.2-5.0); Alkaline Phosphatase 72 U/L (45-117); Anion Gap 11 (5-15); BUN 11 mg/dL (7-18); BUN/Creat Ratio 20.1 RATIO (10-20); Calcium,Total 8.3 mg/dL (8.5-10.1); Chloride 107 mmol/L (98-107); Creatinine, Serum 0.55 mg/dL (0.55-1.02); EST Glomerular Filtration Rate 115 mL/min (>60); Est Glom Filt Rate - Afr Amer 139 mL/min (>60); Estimated Creatinine Clearance 57.27 ml/min; Globulin 3.6 g/dL (2.2-4.2); Glucose 111 mg/dL (74-106); Phosphorus 3.2 mg/dL (2.5-4.9); Potassium 3.4 mmol/L (3.5-5.1); Sodium Level 139 mmol/L (136-145)
--- NOTE | 2024-11-02 11:49 | CASEMGMT ---
Addendum entered by Aleyda Nash 11/02/24 16:48: NENO spoke with pt and pt niece who select [facility] and [facility] as alternate choices. Pt expressing anxiety regarding traditional SNF and prefers TCU-type unit. NENO notified DCA of referral requests. [facility] remains available to follow. JUAN PABLO Gaytan Addendum entered by Aleyda Nash 11/02/24 12:02: Social Work- NENO met with pt and pt sister who report that they would like TCU as FOC. Pt will decide on second choice with sister. SW completed referral to TCU. [facility]ENO remains available to follow. JUAN PABLO Gaytan Original Note: Social Work- NENO met with pt to provide updates on SNF referral. NENO updated pt that [facility] started precert. Pt reports that she did not want referral to [facility] and would like a list for other choices. NENO followed up with RNCM to determine how selections were made prior. NENO re-printed SNF list and will follow up when pt family arrives. DCA advised to ask [facility] to stop precert at this time. JUAN PABLO Gaytan
--- NOTE | 2024-11-02 13:25 | CON.PCM.ID_ITS ---
Assessment & Plan Assessment/Plan (1) Parainfluenza virus infection: (2) Intractable low back pain: (3) Cerebral palsy: (4) Streptococcal bacteremia: PLAN: 2 of 2 bcx with strep bovis family. TTE neg for veg. MRI L-spine with contrast pending for possible osteo/discitis. With bovis seen, recommend colonoscopy be done. Will narrow vanc/zosyn to ceftriaxone. CT abd/pelvis did not show colitis/abscess. Will follow, thank you HPI Consult Data Date of Consult: 11/02/24 HPI Narrative Reason for Consultation: bacteremia HPI Narrative: SOUMYA MCFARLANE, is a 79 F with cerebral palsy, lives on her own. Had falls at home starting about 2 weeks ago with lower back pain. No fever or chills. Reports 1-2 days headache, congestion, dry cough. No abd pain, no dental issues. No blood in stool. Full ROS performed and neg except as noted above. [facility] Medical History Anxiety Depression Osteoporosis Non-smoker Cerebral palsy Cataract Palpitations Elevated blood pressure reading without diagnosis of hypertension Essential (primary) hypertension Home Medications ?Medication ?Instructions ?Recorded ?Last Taken ?Type apple cider vinegar 600 mg capsule 600 mg PO QDAY 12/29 06/17 Unknown History flaxseed oil 1,000 mg capsule 1,000 mg PO QDAY 8 Unknown History garlic 200 mg tablet 200 mg PO QDAY 01/16/18 Unkn own History glucosamine HCl 500 mg tablet 500 mg PO QDAY 01/16/18 Unknown History red yeast rice 600 mg capsule 600 mg PO QDAY 01/16/18 Unknown History cholecalciferol (vitamin D3) 25 2,000 unit PO QDAY Unknown History mcg (1,000 unit) tablet metoprolol succinate 50 mg 50 mg PO DAILY #90 TABLETS 01/22/24 Unknown Rx tablet,extended release 24 hr lisinopril 20 mg tablet 20 mg PO QDAY #90 tabs 03/02 Unknown Rx amlodipine 5 mg tablet 5 mg PO DAILY #90 tabs 10/05 Unknown Rx Allergy/AdvReac Type Severity Reaction Status Date / Time amantadine (From Symmetrel) AdvReac Severe Unknown Verified 10/30/24 11:00 amoxicillin (From Augmentin) AdvReac Severe Unknown Verified 10/30/24 11:00 clavulanic acid (From AdvReac Severe Unknown Verified 10/30/24 11:00 Augmentin) erythromycin base AdvReac Severe Unknown Verified 10/30/24 11:00 lorazepam (From Ativan) AdvReac restless Verified 10/30/24 17:39 Family History Father Diabetes Hypertension Mother alzhemier Osteoporosis Surgical History History of tonsillectomy History of hysterectomy History of hip replacement Social History Smoking Status: Never smoker alcohol intake: never substance use type: does not use caffeine: Yes Type: coffee Number of servings: 3 what type of physical activity do you participate in: none seatbelt use: always do you feel safe at home: Yes Physical Exam Const alert, oriented x3 and no apparent distress General Appearance: cooperative HEENT normocephalic and head/scalp atraumatic Eyes PERRL and EOMs intact bilaterally Neck supple and No nodes Resp normal air movement and clear to auscultation bilaterally Cardio regular rate and regular rhythm GI soft to palpation, non-tender and non-distended Extremity General Extremity: Negative for edema Skin no rashes or lesions noted Neuro CN's II-XII intact bilaterally Lab / Micro Data Attestation: I reviewed the patient's lab results. 11/02/24 07:45 11/02/24 07:45 Labs: Laboratory Results - last 24 hr 11/02/24 07:45: WBC 13.5 H, RBC 3.64 L, Hgb 11.0 L, Hct 32.7 L, MCV 89.8, MCH 30.2, MCHC 33.6, RDW Std Deviation 43.9, RDW Coeff of Roselyn 13.2, Plt Count 206, MPV 10.1, Immature Gran % (Auto) 0.500, Neut % (Auto) 82.1 H, Lymph % (Auto) 9.0 L, [place] % (Auto) 7.8, Eos % (Auto) 0.2, Baso % (Auto) 0.4, Absolute Neuts (auto) 11.1 H, Absolute Lymphs (auto) 1.22, Nucleated RBC % 0, Sodium 139, Potassium 3.4 L, Chloride 107, Carbon Dioxide 21.0, Anion Gap 11, BUN 11, Creatinine 0.55, Estim Creat Clear Calc 57.27, Est GFR (MDRD) Af Amer 139, Est GFR (MDRD) Non-Af 115, BUN/Creatinine Ratio 20.1 H, Glucose 111 H, Calcium 8.3 L, Phosphorus 3.2, Total Bilirubin 0.80, AST 37, ALT 30, Alkaline Phosphatase 72, Total Protein 6.0 L, Albumin 2.4 L, Globulin 3.6, Albumin/Globulin Ratio 0.7 L, Vancomycin Trough 8.5 Micro: Microbiology 10/30/24 23:28 Blood Culture (Wb) - Left Wrist Blood Culture - Final Alpha hemolytic organism 10/30/24 23:40 Blood Culture (Wb) - Right Hand Bacteria Detection (PCR) - Final Strep not Strep pneumo 10/30/24 23:40 Blood Culture (Wb) - Right Hand Blood Culture - Final Streptococcus alactolyticus Imaging Radiology Impression Echocardiogram 11/01/24 08:33 Interpretation Summary Normal LV size. Left ventricular systolic function is normal. The left ventricular ejection fraction is 65 %. Structurally normal valves. Ordering Physician: Marleni Menendez Referring Physician: BILL PCP Performed By: Martha Landa RCS Abdomen/Pelvis CT 11/01/24 13:40 IMPRESSION: 1. Atrophic changes of the right kidney with prominent pancreatic duct. 2. Grade 1 anterolisthesis, L5 on S1. 3. Multilevel spondylosis and degenerative disc disease. 4. Small hiatal hernia. 5. Other nonacute findings detailed above. Reading Location: [facility] Mandible X-Ray 11/01/24 18:10 IMPRESSION: No acute osseous abnormalities are demonstrated. Nonacute findings detailed above. Reading Location: [facility]
[2024-11-02 14:04] LABS: Pathologist Review Reviewed
[2024-11-02] MEDS: 0.9% Saline Lock 10 ML Syringe IV (14:57)
[2024-11-02] MEDS: Ceftriaxone 2 GM in 0.9% Normal Saline (50mL MB+) 50 ML IV (14:57)
[2024-11-02] MEDS: Tamsulosin HCl 0.4 MG Capsule PO (17:27)
[2024-11-02] MEDS: RisperiDONE 0.5 MG Tablet PO (21:38)
[2024-11-03] VITALS (7 sets, daily range): BP systolic 120–161; BP diastolic 61–82; PULSE 87–120; RESP 16–20; TEMP 36.3–37.1; O2SAT 98
[2024-11-03] MEDS: Pantoprazole Sodium 80 MG in 0.9% Normal Saline (100mL Bag) 80 ML 10 MG CONT INF ×3 (01:31→21:44)
[2024-11-03] MEDS: Acetaminophen 500 MG Tablet 1000 MG PO ×3 (05:27→21:02)
[2024-11-03 06:49] LABS: Absolute Lymphocyte Count 1.71 X10^3/uL (0.83-4.51); Absolute Neutrophil Count 6.5 X10^3/uL (2.0-7.7); Basophil# 0.05 X10^3/uL; Basophil% 0.5 % (0-1); Eosinophil# 0.09 X10^3/uL; Hematocrit 31.5 % (37-47); Hemoglobin 10.6 g/dL (12.0-15.0); Lymphocyte # 1.71 X10^3/ul (0.83-4.51); Lymphocyte % 18.8 % (19-41); Mean Corp Hgb Conc 33.7 g/dL (32-36); Mean Corpuscular Hgb 30.2 pg (27.0-32.0); Mean Corpuscular Volume 89.7 fL (81-99); Mean Platelet Vol. 10.4 fl (6.2-12.0); Monocyte# 0.69 X10^3/uL; Monocyte% 7.6 % (0-10); NRBC Flagged by Analyzer 0 % (0-5); Neutrophil # 6.52 X10^3/uL (2.7-7.7); Neutrophil % 71.4 % (47-70); Platelet Count 220 K/mm3 (150-450); RBC Distribution Width CV 13.4 % (11.6-14.6); RBC Distribution Width SD 44.3 fl (35.1-43.9); Red Blood Count 3.51 M/mm3 (4.2-5.4); White Blood Count 9.1 K/mm3 (4.4-11.0)
[2024-11-03 07:26] LABS: Anion Gap 10 (5-15); BUN 18 mg/dL (7-18); BUN/Creat Ratio 39.4 RATIO (10-20); Calcium,Total 8.6 mg/dL (8.5-10.1); Chloride 107 mmol/L (98-107); Creatinine, Serum 0.46 mg/dL (0.55-1.02); EST Glomerular Filtration Rate 141 mL/min (>60); Est Glom Filt Rate - Afr Amer 170 mL/min (>60); Estimated Creatinine Clearance 57.27 ml/min; Glucose 104 mg/dL (74-106); Phosphorus 2.8 mg/dL (2.5-4.9); Sodium Level 138 mmol/L (136-145)
--- NOTE | 2024-11-03 08:03 | PCM.PN.HOSP ---
Reason for Visit Reason for Visit: Diagnoses Other viral infections of unspecified site (10/30/24) Unspecified streptococcus as the cause of diseases classified elsewhere (10/30/24) Elevated white blood cell count, unspecified (10/30/24) Hypokalemia (10/30/24) Cerebral palsy, unspecified (10/30/24) Other low back pain (10/30/24) Tachycardia, unspecified (10/30/24) Difficulty in walking, not elsewhere classified (10/30/24) Retention of urine, unspecified (10/30/24) Bacteremia (10/30/24) Subjective Subjective patient was seen in consultation by Dr. Louis with ID recommended colonoscopy consult subsequently placed to Dr. Kwan. Results of MRI performed the day prior still pending Objective Data Objective Data Vital Signs: Vital Signs Temp Pulse Resp BP Pulse Ox O2 Del Method 97.4 F L 101 H 16 146/61 H 98 Room Air 11/03/24 03:00 11/03/24 03:00 11/03/24 03:00 11/03/24 03:00 11/03/24 03:00 11/03/24 03:00 Oxygen Delivery Method Room Air Weight: 63 kg Body Mass Index (BMI) 21.7 Intake & Output: Intake and Output for Last 24 Hours 11/01/24 11/02/24 11/03/24 23:59 23:59 23:59 Intake Total 2547.6633 / 2547.6633 987.17 / 987.17 Output Total 4000 / 4000 1350 / 1350 575 / 575 Balance -1452.3367 / -1452.3367 -362.83 / -362.83 -575 / -575 Lab / Micro Data 11/03/24 06:11 11/03/24 06:11 Labs: Laboratory Results - last 24 hr 10/30/24 12:45: Diff Path Review Reviewed 11/02/24 07:45: WBC 13.5 H, RBC 3.64 L, Hgb 11.0 L, Hct 32.7 L, MCV 89.8, MCH 30.2, MCHC 33.6, RDW Std Deviation 43.9, RDW Coeff of Roselyn 13.2, Plt Count 206, MPV 10.1, Immature Gran % (Auto) 0.500, Neut % (Auto) 82.1 H, Lymph % (Auto) 9.0 L, [place] % (Auto) 7.8, Eos % (Auto) 0.2, Baso % (Auto) 0.4, Absolute Neuts (auto) 11.1 H, Absolute Lymphs (auto) 1.22, Nucleated RBC % 0, Sodium 139, Potassium 3.4 L, Chloride 107, Carbon Dioxide 21.0, Anion Gap 11, BUN 11, Creatinine 0.55, Estim Creat Clear Calc 57.27, Est GFR (MDRD) Af Amer 139, Est GFR (MDRD) Non-Af 115, BUN/Creatinine Ratio 20.1 H, Glucose 111 H, Calcium 8.3 L, Phosphorus 3.2, Total Bilirubin 0.80, AST 37, ALT 30, Alkaline Phosphatase 72, Total Protein 6.0 L, Albumin 2.4 L, Globulin 3.6, Albumin/Globulin Ratio 0.7 L, Vancomycin Trough 8.5 11/03/24 06:11: WBC 9.1, RBC 3.51 L, Hgb 10.6 L, Hct 31.5 L, MCV 89.7, MCH 30.2, MCHC 33.7, RDW Std Deviation 44.3 H, RDW Coeff of Roselyn 13.4, Plt Count 220, MPV 10.4, Immature Gran % (Auto) 0.700, Neut % (Auto) 71.4 H, Lymph % (Auto) 18.8 L, [place] % (Auto) 7.6, Eos % (Auto) 1.0, Baso % (Auto) 0.5, Absolute Neuts (auto) 6.5, Absolute Lymphs (auto) 1.71, Nucleated RBC % 0, Sodium 138, Potassium 3.0 L, Chloride 107, Carbon Dioxide 21.0, Anion Gap 10, BUN 18, Creatinine 0.46 L, Estim Creat Clear Calc 57.27, Est GFR (MDRD) Af Amer 170, Est GFR (MDRD) Non-Af 141, BUN/Creatinine Ratio 39.4 H, Glucose 104, Calcium 8.6, Phosphorus 2.8, Magnesium 2.0 Micro: Microbiology 10/30/24 23:28 Blood Culture (Wb) - Left Wrist Blood Culture - Final Alpha hemolytic organism 10/30/24 23:40 Blood Culture (Wb) - Right Hand Bacteria Detection (PCR) - Final Strep not Strep pneumo 10/30/24 23:40 Blood Culture (Wb) - Right Hand Blood Culture - Final Streptococcus alactolyticus 10/30/24 23:20 Mucosa - Nasopharyngeal Respiratory Panel (PCR) - Final Parainfluenza 4 10/31/24 07:10 Nasal Secretion SARS-CoV-2 Antigen (Rapid) - Final Radiography Diagnostic Testing: Radiology Impression Echocardiogram 11/01/24 08:33 Interpretation Summary Normal LV size. Left ventricular systolic function is normal. The left ventricular ejection fraction is 65 %. Structurally normal valves. Ordering Physician: Marleni Menendez Referring Physician: BILL PCP Performed By: Martha Landa RCS Physical Exam Narrative GENERAL: cooperative HEENT: Atraumatic; normocephalic EYES; Anicteric, Normal Conjunctiva NECK; supple, normal thyroid, RESPIRATORY: Diminished to auscultation CARDIOVASCULAR: Regular S1 S2, GI: soft, normoactive bowel sounds, : No Renal angle tenderness; EXTREMITIES: No edema, no clubbing, MUSCULOSKELETAL: no muscle wasting NEURO: Awake; no lateralizing signs. SKIN: No Rash PSYCH; Flat affect Const alert, oriented x3, no apparent distress, average body habitus and well nourished Constitutional Narrative: Elderly, white female, lying in bed appears comfortable, oriented to time, self and POTUS but not location, sister and niece at bedside General Appearance: cooperative HEENT normocephalic, head/scalp atraumatic, hearing grossly normal bilaterally, nasal mucous membranes and turbinates normal and moist oral mucous membranes Eyes PERRL, EOMs intact bilaterally and conjunctivae normal Eyes Narrative: No scleral icterus Neck full ROM Chest inspection of chest normal Resp normal respiratory effort, normal air movement, no retractions, no use of accessory muscles and clear to auscultation bilaterally Resp Narrative: Crackly diffusely but no signs of respiratory extremis Auscultation: crackles; Negative for rhonchi or wheezes Cardio regular rhythm, S1 normal heart sound, S2 normal heart sound, no murmurs, no rub, no gallops, no clicks and peripheral pulses 2+ throughout Cardio Narrative: Tachycardia GI normal to inspection, nondistended, normoactive bowel sounds, soft to palpation, non-tender and non-distended Back/Spine Back/Spine Narrative: Mild tenderness to palpation in low back diffusely, no point tenderness noted. Extremity no clubbing, cyanosis or edema Extremity Narrative: Pedal pulses are 2+ Skin no rashes or lesions noted Neuro no focal motor deficits Neuro Narrative: +2/5 strength in bilateral lower extremities. Good strength in upper extremities. Speech: speech normal Psych affect normal Psych Narrative: Very pleasant, calm, follows commands well, interacts appropriately, answers questions Assessment & Plan Assessment/Plan (1) Difficulty in walking: (2) Urinary retention: (3) Leukocytosis: (4) Intractable low back pain: (5) Tachycardia: (6) Parainfluenza virus infection: (7) Hypokalemia: PLAN: Plan Patient is a 79-year-old lady with underlying history of cerebral palsy who presented with worsening back pain and difficulty with ambulation. Patient tested positive for acute parainfluenza virus. Hospital stay complicated by alphahemolytic strep bacteremia. Admitted to regular nursing floor for further management 1. Acute parainfluenza virus infection ? Managed with supportive care 2. Streptococcus alactolyticus bacteremia ? Etiology not clear. Repeat blood cultures ordered patient started on broad-spectrum antibiotic therapy consult placed to ID ? 10/2024; patient was seen in consultation by Dr. Louis with ID recommended colonoscopy consult subsequently placed to Dr. Kwan 3. Intractable low back pain ?MRI of the lumbar spine showed multilevel degenerative changes in the thoracolumbar spine that most severe at L5-S1 and grade 1 antereolisthesis of L5 on S1. In view of patient bacteremia repeat MRI with contrast was ordered 4. Physical deconditioning ? Requested for PT OT eval and social work lecturer to assist with discharge planning 5. Acute urinary retention Patient was started on Flomax Lau catheter was placed Urinary retention 6. Hypophosphatemia ? corrected per protocol 7. Hypokalemia ? Corrected per protocol Cerebral palsy ? Supportive care 9. Hypertension ? Blood pressure controlled, home medications continued with dose adjustment as needed 10. DVT prophylaxis -Continue enoxaparin 40 daily Time spent in the patient's overall evaluation,decision-making process, review of diagnostic data, adjustment of management, discussion with other providers, nursing nursing and ancillary staff involved in patient's care documentation, 35 Minutes Charges/Coding Visit Charges Inpatient E&M: 95681 [facility] Hosp L2
--- NOTE | 2024-11-03 10:22 | CASEMGMT ---
Addendum entered by Elisabeth Daniels 11/04/24 11:41: Requested updated clinicals sent to [facility]. Elisabeth Daniels DC Planning Asst. Addendum entered by Elisabeth Daniels 11/03/24 11:18: [facility] declined d/t no available beds. SW updated. Fany Pike Planning Asst. Original Note: Referral sent to [facility] and [facility]. Elisabeth Daniels DC Planning Asst.
--- NOTE | 2024-11-03 11:02 | PCM.PN.ID ---
Physical Exam Narrative Confused this AM, no fever Const alert and no apparent distress Orientation / Consciousness: confused Resp normal air movement and clear to auscultation bilaterally Cardio regular rate and regular rhythm GI soft to palpation, non-tender and non-distended Skin no rashes or lesions noted ID ID: Route of nutrition/ use of supplements: [] Nutritional Intake: [] IV Site: [] Lau Catheter: [] Assessment & Plan Assessment/Plan (1) Parainfluenza virus infection: (2) Intractable low back pain: (3) Cerebral palsy: (4) Streptococcal bacteremia: PLAN: 2 of 2 bcx with strep bovis family. TTE neg for veg. MRI L-spine with contrast pending for possible osteo/discitis. With bovis seen, recommend colonoscopy be done. Cont ceftriaxone. CT abd/pelvis did not show colitis/abscess. Will follow
[2024-11-03] MEDS: Bisacodyl 5 MG Tablet 20 MG PO (12:57)
[2024-11-03] MEDS: Lisinopril 20 MG Tablet PO (12:59)
[2024-11-03] MEDS: Metoprolol(XL)Succ 100 MG Tablet PO (13:01)
[2024-11-03] MEDS: amLODIPine 5 MG Tablet PO (13:02)
--- NOTE | 2024-11-03 13:03 | CASEMGMT ---
Addendum entered by Aleyda Nash 11/03/24 17:01: NENO met with pt niece and pt sister who selected [facility] and [facility] as first and second alternates if [facility] is unable to accept. DCA updated. NENO remains available to follow. JUAN PABLO Gaytan Original Note: Social Work- NENO spoke with pt sister, Kadi, to discuss discharge preferences. NENO updated that [facility] and [facility] are unable to accept pt referral and [facility] feels pt is not medically stable to decide on referral at this time. SW encouraged sister and pt niece to select two alternate choices in the event that [facility] is unable to accept. Sister states that she and pt niece will be in around 3pm. NENO will follow up at that time. NENO met with pt to update pt as well and advise of family visit this afternoon. Pt appreciative. NENO remains available to follow. Plan: [facility]; pend acceptance JUAN PABLO Gaytan
[2024-11-03] MEDS: Ceftriaxone 2 GM in 0.9% Normal Saline (50mL MB+) 50 ML IV (13:06)
[2024-11-03] MEDS: 0.9% Saline Lock 10 ML Syringe IV (13:07)
[2024-11-03] MEDS: Enoxaparin 40 MG/0.4 ML Syringe SC (13:07)
--- NOTE | 2024-11-03 16:37 | EX.PCM.CON.G ---
HPI Consult Data Date of Consult: 11/03/24 HPI Narrative Reason for Consultation: Strep bovis bacteremia HPI Narrative: SOUMYA MCFARLANE, is a 79 F who presented to [facility] ED on 10/30/2024 with worsening low back pain and difficulty with ambulation. Patient has history of cerebral palsy but is high functioning, lives at home by herself. Does have family that live close by. Patient had a mechanical fall in the kitchen about 2 weeks ago and then had another fall about 1 week ago where she landed on her buttocks. Since then she has had worsening low back pain and difficulty with ambulation. In the ED she was tachycardic to the 110s but otherwise hemodynamically stable on room air. Labs notable for WBC count 22, sodium 133. CT chest abdomen pelvis showed distended urinary bladder but otherwise no chest or abdominal abnormalities; also showed loss of height of L3 and L5 vertebrae and anterolisthesis of L5 on S1. Lau was placed in the ED with 1200 cc of urine removed. Per discussion with she and her family, she has had significant issues with her bowels lately with constipation. She has never had a colonoscopy. Blood cultures are positive for alpha-hemolytic strep organisms is not strep pneumo so the concern would be that it could be possibly strep bovis. The blood cultures did engine turner to be Streptococcus bovis. She underwent a MAGDI and was negative for vegetation. I was consulted for a colonoscopy. As there is no source of infection and discussed this with family today. [facility] Medical History Anxiety Depression Osteoporosis Non-smoker Cerebral palsy Cataract Palpitations Elevated blood pressure reading without diagnosis of hypertension Essential (primary) hypertension Home Medications ?Medication ?Instructions ?Recorded ?Last Taken ?Type apple cider vinegar 600 mg capsule 600 mg PO QDAY 01/16/18 Unknown History flaxseed oil 1,000 mg capsule 1,000 mg PO QDAY 01/16/18 Unknown History garlic 200 mg tablet 200 mg PO QDAY 01/16/18 Unknown History glucosamine HCl 500 mg tablet 500 mg PO QDAY 01/16/18 Unknown History red yeast rice 600 mg capsule 600 mg PO QDAY 01/16/18 Unknown History cholecalciferol (vitamin D3) 25 2,000 unit PO QDAY 07/25/23 Unknown History mcg (1,000 unit) tablet metoprolol succinate 50 mg 50 mg PO DAILY #90 TABLETS 01/22/24 Unknown Rx tablet,extended release 24 hr lisinopril 20 mg tablet 20 mg PO QDAY #90 tabs 03/02/24 Unknown Rx amlodipine 5 mg tablet 5 mg PO DAILY #90 tabs 10/05/24 Unknown Rx Allergy/AdvReac Type Severity Reaction Status Date / Time amantadine (From Symmetrel) AdvReac Severe Unknown Verified 10/30/24 11:00 amoxicillin (From Augmentin) AdvReac Severe Unknown Verified 10/30/24 11:00 clavulanic acid (From AdvReac Severe Unknown Verified 10/30/24 11:00 Augmentin) erythromycin base AdvReac Severe Unknown Verified 10/30/24 11:00 lorazepam (From Ativan) AdvReac restless Verified 10/30/24 17:39 Family History Father Diabetes Hypertension Mother alzhemier Osteoporosis Surgical History History of tonsillectomy History of hysterectomy History of hip replacement Social History Smoking Status: Never smoker alcohol intake: never substance use type: does not use caffeine: Yes Type: coffee Number of servings: 3 what type of physical activity do you participate in: none seatbelt use: always do you feel safe at home: Yes ROS Constitutional Constitutional: Denies fatigue, fever(s), poor appetite, weight gain or weight loss Gastrointestinal Gastrointestinal: Denies belching, bloating, change in bowel habits, change in stool character, chewing difficulty, coffee ground emesis, constipation, cramping, diarrhea, dyspepsia, dysphagia, early satiety, excessive flatus, fecal incontinence, heartburn, hematemesis, hematochezia, hemorrhoids, loose stools, melena, nausea, odynophagia, rectal bleeding, tenesmus, vomiting or weight changes Physical Exam Const alert, oriented x3, no apparent distress and healthy appearing General Appearance: cooperative GI normal to inspection, nondistended, normoactive bowel sounds, soft to palpation, non-tender and non-distended Percussion: normal to percussion Rectal Exam: deferred Lab / Micro Data 11/03/24 06:11 11/03/24 06:11 Labs: Laboratory Results - last 24 hr 11/03/24 06:11: WBC 9.1, RBC 3.51 L, Hgb 10.6 L, Hct 31.5 L, MCV 89.7, MCH 30.2, MCHC 33.7, RDW Std Deviation 44.3 H, RDW Coeff of Roselyn 13.4, Plt Count 220, MPV 10.4, Immature Gran % (Auto) 0.700, Neut % (Auto) 71.4 H, Lymph % (Auto) 18.8 L, [place] % (Auto) 7.6, Eos % (Auto) 1.0, Baso % (Auto) 0.5, Absolute Neuts (auto) 6.5, Absolute Lymphs (auto) 1.71, Nucleated RBC % 0, Sodium 138, Potassium 3.0 L, Chloride 107, Carbon Dioxide 21.0, Anion Gap 10, BUN 18, Creatinine 0.46 L, Estim Creat Clear Calc 57.27, Est GFR (MDRD) Af Amer 170, Est GFR (MDRD) Non-Af 141, BUN/Creatinine Ratio 39.4 H, Glucose 104, Calcium 8.6, Phosphorus 2.8, Magnesium 2.0 Assessment & Plan Assessment/Plan (1) Parainfluenza virus infection: (2) Intractable low back pain: (3) Cerebral palsy: (4) Streptococcal bacteremia: PLAN: She has 2 of 2 bcx with strep bovis family. She underwent transthoracic echocardiogram and it was negative for vegetations. She is scheduled to get an MRI to look for possible osteomyelitis versus discitis. She will need to undergo colonoscopy as CT scan abdomen pelvis did not show any colitis or abscess. Patient's family was explained alternatives, risk and benefits include understanding bleeding, infection, sepsis, perforation, need for return to . She will have an ASA of 3. Charges/Coding Visit Charges Inpatient E&M: 44947 Init Hosp L3
--- NOTE | 2024-11-03 16:55 | RAD_ITS ---
PROCEDURE: ABDOMEN SINGLE VIEW REASON FOR EXAM: Check nasogastric tube placement. TECHNIQUE: Single view abdomen. COMPARISON: None FINDINGS: Tip of the nasogastric tube is right bronchial tree projecting over the right lower lobe. No suspicious calcifications. The bones are unremarkable. RAD/Abdomen Single View IMPRESSION: Tip of the nasogastric tube in the right lower lobe bronchial tree. Reading Location: [facility]
--- NOTE | 2024-11-03 17:29 | RAD_ITS ---
PROCEDURE: ABDOMEN SINGLE VIEW (PORTABLE) REASON FOR EXAM: 2nd attempt at placement of a nasogastric tube. TECHNIQUE: AP portable upright. COMPARISON: 1st attempt, 11/03/2024 at 1643 hours. FINDINGS: Tip of a nasogastric tube in the right lower lobe bronchial tree. No suspicious calcifications. The bones are unremarkable. RAD/Abdomen Single View (Portable) IMPRESSION: Tip of the right nasogastric tube remains in the right lower lobe bronchial roger e. Reading Location: [facility]
--- NOTE | 2024-11-03 17:30 | RAD_ITS ---
PROCEDURE: ABDOMEN SINGLE VIEW REASON FOR EXAM: 3RD ATTEMPT AT PLACEMENT OF NASOGASTRIC TUBE. TECHNIQUE: Single view abdomen. COMPARISON: 11/03/2024, 1716 HOURS. FINDINGS: Bowel gas pattern is normal. No evidence of bowel obstruction. NASOGASTRIC TUBE TIP JUST DISTAL TO THE ESOPHAGOGASTRIC JUNCTION. No suspicious calcifications. The bones are unremarkable. RAD/Abdomen Single View IMPRESSION: NASOGASTRIC TUBE TIP JUST DISTAL TO THE ESOPHAGOGASTRIC JUNCTION. Reading Location: [facility]
--- NOTE | 2024-11-03 17:35 | RAD_ITS ---
PROCEDURE: ABDOMEN SINGLE VIEW REASON FOR EXAM: 4TH ATTEMPT AT POSITIONING OF THE NASOGASTRIC TUBE. TECHNIQUE: AP PORTABLE UPRIGHT. COMPARISON: 3RD ATTEMPT DATED 11/03/2024 AT 1719 HOURS. FINDINGS: Distal nasogastric tube is coiled in the gastric fundus. Tip is in the distal body of the stomach along the greater curvature. No suspicious calcifications. The bones are unremarkable. RAD/Abdomen Single View IMPRESSION: Nasogastric tube coiled in the stomach and in good position. Reading Location: [facility]
[2024-11-03] MEDS: Polyethylene Glycol 3350 BOWEL PREP PO (17:47)
[2024-11-03] MEDS: Potassium Chloride Oral Tablet 20 MEQ PO ×2 (17:48→17:49)
[2024-11-03] MEDS: Tamsulosin HCl 0.4 MG Capsule PO (17:50)
[2024-11-03] MEDS: RisperiDONE 0.5 MG Tablet PO (19:51)
[2024-11-03] MEDS: MELATONIN 3 MG TABLET PO (19:51)
[2024-11-04] VITALS (11 sets, daily range): BP systolic 88–153; BP diastolic 55–89; PULSE 78–134; RESP 15–24; TEMP 36.5–38.7; O2SAT 94–100
--- NOTE | 2024-11-04 | COLBX_PTH ---
PATIENT: SOUMYA MCFARLANE LOC: MS3 U#:[id number] AGE/SX: 79/F ROOM: [facility] RE10/30/[address]: Dr. Bautista Lizarraga MD : 1945 BED: 1 DIS: 11/11/2024 SPEC #: [id number] RECD: 11/04/24 12:40 STATUS: MERRITT HOPE #: [id number] PARK: 11/04/24 00:[address]: Cristino Kwan DEPT: SURGICAL PATHOLOGY RECD BY: Harriet Dutta ENTERED: 11/04/24 13:29 SP TYPE: COLON BX ALIS DR: DO Dr. Zachary Addison MD Dr. Kathryn Lee, DO Dr. Francisco Art MD No Primary Care Phys Tissues: A - Cecum, NOS B - COLON BIOPSY Procedures: Surgery Specimen Level IV HEADER OPERATION: Colonoscopy with biopsy PRE-OP DIAGNOSIS: Strep bovis bacteremia TISSUE SUBMITTED: A- Cecum biopsy, B- Random colon biopsy MICROSCOPIC DIAGNOSIS A. Cecum, biopsy: Fragments of colonic mucosa, no pathologic diagnosis. B. Colon, random biopsy: Fragments of colonic mucosa with focal mild glandular distortion. Rare pigment laden macrophages, suggestive of melanosis coli. Negative for acute inflammation. See comment. 11/05/2024 COMMENT Correlation with clinical, endoscopic findings and appropriate follow up are necessary. MICROSCOPIC DESCRIPTION Slides are reviewed. GROSS DESCRIPTION A. Received in fixative is one container labeled with the patient's name and designated Cecum biopsy. The specimen consists of two irregular fragments of light oscar soft tissue that in aggregate measure 0.6 x 0.5 x 0.1 cm. The specimen is totally submitted in one cassette. B. Received in fixative is one container labeled with the patient's name and designated Random colon biopsy. The specimen consists of multiple irregular fragments of light oscar soft tissue that in aggregate measure 1.5 x 0.5 x 0.1 cm. The specimen is totally submitted in one cassette. MS/mr 11/04/2024 TC:5 CPT:48535b4
[2024-11-04 05:42] LABS: Absolute Lymphocyte Count 1.86 X10^3/uL (0.83-4.51); Absolute Neutrophil Count 9.2 X10^3/uL (2.0-7.7); Basophil# 0.07 X10^3/uL; Basophil% 0.6 % (0-1); Eosinophil# 0.04 X10^3/uL; Eosinophils% 0.3 % (0-5); Hematocrit 34.8 % (37-47); Hemoglobin 11.4 g/dL (12.0-15.0); Lymphocyte # 1.86 X10^3/ul (0.83-4.51); Mean Corp Hgb Conc 32.8 g/dL (32-36); Mean Corpuscular Hgb 30.2 pg (27.0-32.0); Mean Corpuscular Volume 92.3 fL (81-99); Mean Platelet Vol. 10.7 fl (6.2-12.0); Monocyte# 1.14 X10^3/uL; Monocyte% 9.2 % (0-10); NRBC Flagged by Analyzer 0 % (0-5); Neutrophil # 9.22 X10^3/uL (2.7-7.7); Neutrophil % 74.2 % (47-70); Platelet Count 275 K/mm3 (150-450); RBC Distribution Width CV 13.4 % (11.6-14.6); RBC Distribution Width SD 45.7 fl (35.1-43.9); Red Blood Count 3.77 M/mm3 (4.2-5.4); White Blood Count 12.4 K/mm3 (4.4-11.0)
[2024-11-04 05:55] LABS: Anion Gap 14 (5-15); BUN 20 mg/dL (7-18); BUN/Creat Ratio 30.6 RATIO (10-20); Calcium,Total 8.3 mg/dL (8.5-10.1); Chloride 104 mmol/L (98-107); Creatinine, Serum 0.65 mg/dL (0.55-1.02); EST Glomerular Filtration Rate 93 mL/min (>60); Est Glom Filt Rate - Afr Amer 113 mL/min (>60); Estimated Creatinine Clearance 57.27 ml/min; Glucose 87 mg/dL (74-106); Potassium 2.6 mmol/L (3.5-5.1); Sodium Level 138 mmol/L (136-145)
--- NOTE | 2024-11-04 06:00 | EKG12_ITS ---
Test Reason : PRE OP Blood Pressure : */* mmHG Vent. Rate : 128 BPM Atrial Rate : 133 BPM P-R Int : 136 ms QRS Dur : 74 ms QT Int : 316 ms P-R-T Axes : * 23 65 degrees QTcB Int : 461 ms Sinus tachycardia with Premature atrial complexes Cannot rule out Anteroseptal infarct , age undetermined Abnormal ECG No previous ECGs available Confirmed by OTTO SEGOVIA, DAVID ([id number]), news copy editor YOSEF BLANDON ([id number]) on 11/05/2024 7:12:25 AM Referred By: ASTRID Confirmed By: DAVID MENJIVAR MD
--- NOTE | 2024-11-04 06:31 | PCM.HOSP.N ---
Hospitalist Note K 2.6, IV supplementation ordered as well as mag level requested.
[2024-11-04] MEDS: Potassium Chloride 10mEq/100mL 10 MEQ/100 ML IV.SOLN. 100 MEQ IV BOLUS ×4 (07:02→14:15)
--- NOTE | 2024-11-04 08:58 | PN.HOSP_ITS ---
Reason for Visit Reason for Visit: Diagnoses Other viral infections of unspecified site (10/30/24) Unspecified streptococcus as the cause of diseases classified elsewhere (10/30/24) Elevated white blood cell count, unspecified (10/30/24) Hypokalemia (10/30/24) Cerebral palsy, unspecified (10/30/24) Other low back pain (10/30/24) Tachycardia, unspecified (10/30/24) Difficulty in walking, not elsewhere classified (10/30/24) Retention of urine, unspecified (10/30/24) Bacteremia (10/30/24) Subjective Subjective Patient currently undergoing preparation For colonoscopy. Diagnostic data this morning significant for potassium of 2.6 repletion initiated Objective Data Objective Data Vital Signs: Vital Signs Temp Pulse Resp BP Pulse Ox O2 Del Method 98.5 F 121 H 18 125/71 H 98 Room Air 11/04/24 02:30 11/04/24 02:30 11/04/24 02:30 11/04/24 02:30 11/04/24 02:30 11/04/24 02:30 Oxygen Delivery Method Room Air Weight: 63 kg Body Mass Index (BMI) 21.7 Intake & Output: Intake and Output for Last 24 Hours 11/02/24 11/03/24 11/04/24 23:59 23:59 23:59 Intake Total 987.17 / 987.17 245.67 / 245.67 200 / 200 Output Total 1350 / 1350 1025 / 1125 100 / 100 Balance -362.83 / -362.83 -779.33 / -879.33 100 / 100 Lab / Micro Data 11/04/24 04:30 11/04/24 04:30 Labs: Laboratory Results - last 24 hr 11/04/24 04:30: WBC 12.4 H, RBC 3.77 L, Hgb 11.4 L, Hct 34.8 L, MCV 92.3, MCH 30.2, MCHC 32.8, RDW Std Deviation 45.7 H, RDW Coeff of Roselyn 13.4, Plt Count 275, MPV 10.7, Immature Gran % (Auto) 0.700, Neut % (Auto) 74.2 H, Lymph % (Auto) 15.0 L, [place] % (Auto) 9.2, Eos % (Auto) 0.3, Baso % (Auto) 0.6, Absolute Neuts (auto) 9.2 H, Absolute Lymphs (auto) 1.86, Nucleated RBC % 0, Sodium 138, P otassium 2.6 L*, Chloride 104, Carbon Dioxide 20.0 L, Anion Gap 14, BUN 20 H, Creatinine 0.65, Estim Creat Clear Calc 57.27, Est GFR (MDRD) Af Amer 113, Est GFR (MDRD) Non-Af 93, BUN/Creatinine Ratio 30.6 H, Glucose 87, Calcium 8.3 L, Magnesium 2.0 Micro: Microbiology 11/02/24 07:45 Blood Culture (Wb) - Right Wrist Blood Culture - Preliminary No growth in 48 hours. 11/02/24 07:50 Blood Culture (Wb) - Left Forearm Blood Culture - Preliminary No growth in 48 hours. 10/30/24 23:28 Blood Culture (Wb) - Left Wrist Blood Culture - Final Alpha hemolytic organism 10/30/24 23:40 Blood Culture (Wb) - Right Hand Bacteria Detection (PCR) - Final Strep not Strep pneumo 10/30/24 23:40 Blood Culture (Wb) - Right Hand Blood Culture - Final Streptococcus alactolyticus 10/30/24 23:20 Mucosa - Nasopharyngeal Respiratory Panel (PCR) - Final Parainfluenza 4 10/31/24 07:10 Nasal Secretion SARS-CoV-2 Antigen (Rapid) - Final Radiography Diagnostic Testing: Radiology Impression KUB X-Ray 11/03/24 16:55 IMPRESSION: Tip of the nasogastric tube in the right lower lobe bronchial tree. Reading Location: [facility] KUB X-Ray 11/03/24 17:29 IMPRESSION: Tip of the right nasogastric tube remains in the right lower lobe bronchial tree. Reading Location: [facility] KUB X-Ray 11/03/24 17:30 IMPRESSION: NASOGASTRIC TUBE TIP JUST DISTAL TO THE ESOPHAGOGASTRIC JUNCTION. Reading Location: [facility] X-Ray 11/03/24 17:35 IMPRESSION: Nasogastric tube coiled in the stomach and in good position. [facility] Ex[facility] Narrative GENERAL: cooperative HEENT: Atraumatic; normocephalic EYES; Anicteric, Normal Conjunctiva NECK; supple, normal thyroid, RESPIRATORY: Diminished to auscultation CARDIOVASCULAR: Regular S1 S2, GI: soft, normoactive bowel sounds, : No Renal angle tenderness; EXTREMITIES: No edema, no clubbing, MUSCULOSKELETAL: no muscle wasting NEURO: Awake; no lateralizing signs. SKIN: No Rash PSYCH; Flat affect Const alert, oriented x3, no apparent distress, average body habitus and well nourished Constitutional Narrative: Elderly, white female, lying in bed appears comfortable, oriented to time, self and POTUS but not location, sister and niece at bedside General Appearance: cooperative HEENT normocephalic, head/scalp atraumatic, hearing grossly normal bilaterally, nasal mucous membranes and turbinates normal and moist oral mucous membranes Eyes PERRL, EOMs intact bilaterally and conjunctivae normal Eyes Narrative: No scleral icterus Neck full ROM Chest inspection of chest normal Resp normal respiratory effort, normal air movement, no retractions, no use of accessory muscles and clear to auscultation bilaterally Resp Narrative: Crackly diffusely but no signs of respiratory extremis Auscultation: crackles; Negative for rhonchi or wheezes Cardio regular rhythm, S1 normal heart sound, S2 normal heart sound, no murmurs, no rub, no gallops, no clicks and peripheral pulses 2+ throughout Cardio Narrative: Tachycardia GI normal to inspection, nondistended, normoactive bowel sounds, soft to palpation, non-tender and non-distended Back/Spine Back/Spine Narrative: Mild tenderness to palpation in low back diffusely, no point tenderness noted. Extremity no clubbing, cyanosis or edema Extremity Narrative: Pedal pulses are 2+ Skin no rashes or lesions noted Neuro no focal motor deficits Neuro Narrative: +2/5 strength in bilateral lower extremities. Good strength in upper extremities. Speech: speech normal Psych affect normal Psych Narrative: Very pleasant, calm, follows commands well, interacts appropriately, answers questions Assessment & Plan Assessment/Plan (1) Difficulty in walking: (2) Urinary retention: (3) Leukocytosis: (4) Intractable low back pain: (5) Tachycardia: (6) Parainfluenza virus infection: (7) Hypokalemia: PLAN: Plan Patient is a 79-year-old lady with underlying history of cerebral palsy who presented with worsening back pain and difficulty with ambulation. Patient tested positive for acute parainfluenza virus. Hospital stay complicated by alphahemolytic strep bacteremia. Admitted to regular nursing floor for further management 1. Acute parainfluenza virus infection ? Managed with supportive care 2. Streptococcus alactolyticus bacteremia ? Etiology not clear. Repeat blood cultures ordered patient started on broad- spectrum antibiotic therapy consult placed to ID ? 11/03/2024; patient was seen in consultation by Dr. Louis with ID recommended colonoscopy consult subsequently placed to Dr. Kwan ? 11/04/2024 scheduled to undergo colonoscopy 3. Intractable low back pain ?MRI of the lumbar spine showed multilevel degenerative changes in the thoracolumbar spine that most severe at L5-S1 and grade 1 antereolisthesis of L5 on S1. In view of patient bacteremia repeat MRI with contrast was ordered 4. Physical deconditioning ? Requested for PT OT eval and social media marketing manager to assist with discharge planning 5. Acute urinary retention Patient was started on Flomax Lau catheter was placed Urinary retention 6. Hypophosphatemia ? corrected per protocol 7. Hypokalemia ? Corrected per protocol ? 11/04/2024 potassium this morning 2.5 additional replacement Cerebral palsy ? Supportive care 9. Hypertension ? Blood pressure controlled, home medications continued with dose adjustment as needed 10. DVT prophylaxis -Continue enoxaparin 40 daily Time spent in the patient's overall evaluation,decision-making process, review of diagnostic data, adjustment of management, discussion with other providers, nursing nursing and ancillary staff involved in patient's care documentation, 50 minutes Also had a discussion with patient's family regarding her present condition as well as management plans Charges/Coding Visit Charges Inpatient E&M: 33609 [facility] Hosp L3
--- NOTE | 2024-11-04 11:07 | PCM.PRE.AN2 ---
ASA Classification* ASA Classification ASA Classification: 3 and E Assessment & Plan Anesthesia* Anesthesia Assessment Anesthesia Assessment: Discussed sedation and/or anesthesia options, risks, benefits, and alternatives with patient/parents/legal guardian/POA. Questions invited. The patient/parents/legal guardian/POA seems to understand and agrees to proceed with anesthesia plan. Reviewed the physical assessment, medical history, allergy history and patient home medications list prior to surgery/procedure/anesthetic and documented any changes. Performed airway and anesthesia risk assessments. Anesthesia Type Anesthesia Type: MAC Anesthesia Focused Assessment* Temperature: 99.8 F Pulse Rate: 89 Blood Pressure: 129/65 Respiratory Rate: 20 Pulse Ox: 98 Airway Assessment Mouth opens: >3 cm Mallampati Score: II Focused Labs Anesthesia Preop lab: CBC WBC 12.4 K/mm3 (4.4-11.0) H 11/04/24 04:30 11/04/24 RBC 3.77 M/mm3 (4.2-5.4) L 11/04/24 04:11/04/24 Hgb 11.4 g/dL (12.0-15.0) L 11/04/24 04:30 11/04/24 Hct 34.8 % (37-47) L 11/04/24 04:30 11/04/24 Plt Count 275 K/mm3 (150-450) 11/04/24 04:30 11/04/24 CHEMISTRY Potassium 2.6 mmol/L (3.5-5.1) L* 11/04/24 04:30 11/04/24 Sodium 138 mmol/L (136-145) 11/04/24 04:30 11/04/24 Magnesium 2.0 mg/dL (1.6-2.6) 11/04/24 04:30 11/04/24 Phosphorus 2.8 mg/dL (2.5-4.9) 11/03/24 06:11 11/03/24 BUN 20 mg/dL (7-18) H 11/04/24 04:30 11/04/24 Creatinine 0.65 mg/dL (0.55-1.02) 11/04/24 04:30 11/04/24 Glucose 87 mg/dL (74-106) 11/04/24 04:30 11/04/24 TSH 0.640 uIU/mL (0.358-3.740) 10/30/24 00:00 10/30/24 COAG Pre-Assessment Diagnosis/Proposed Procedure Planned Operative Procedure(s): Colonoscopy Anesthesia History Anesthesia History - surgical territory manager: Anesthesia History - surgical territory manager Hx Hospitalization Any Problems With Anesthesia Cholinesterase deficiency You/Your Family Experience fever (hyperthermia) with Relationship Recent Exposure to Contagious Disease Does patient have nerve stimulator Patient instructed to have device shut off --Does patient have Pacemaker or ICD? When Was Last Pacemaker Check QUESTION #4 FULL TEXT: You/Your Family Experience fever (hyperthermia) with Anesthesia Last Oral Intake Last Oral intake: Last Oral Intake NPO since Meds taken in AM with sips of water? Meds patient instructed to take am of surgery PONV PONV - surgical territory manager: PONV - surgical territory manager Female HX of Motion Sickness HX of N/V After Surgery Non-Smoker Duration of Surgery greater than 60 minutes Number of Risk Factors PONV Score Height & Weight Height & Weight: Anesthesia: Height & Weight Height 5 ft 7 in 11/03/24 13:21 Weight: 63 kg 11/03/24 13:21 Body Mass Index (BMI) 21.7 10/30/24 17:34 Respiratory Assessment Respiratory Assessment - surgical territory manager: Respiratory Tract Infection Hx - surgical territory manager Hx Respiratory Tract Infection STOP Sleep Apnea STOP Sleep Apnea - surgical territory manager: STOP Sleep Apnea - surgical territory manager Hx Hypertension No 11/02/24 10:40 Hx Sleep Apnea No 10/30/24 17:34 CPAP BIPAP Do you snore loudly (louder No 10/30/24 17:34 than talking or can be heard Do you often feel tired/ No 10/30/24 17:34 fatigued/ sleepy during daytime? Has anyone observed you stop No 10/30/24 17:34 breathing during sleep? STOP Results Negative 10/30/24 17:34 QUESTION #5 FULL TEXT : Do you snore loudly (louder than talking or can be heard through closed doors)? Tobacco Use History Tobacco Use History - surgical territory manager: Tobacco Use History - surgical territory manager Tobacco Use Smoking Status Never smoker 10/30/24 17:34 Hx Tobacco Use No 10/30/24 17:34 Years Smoking Packs Smoked per Day Smoking Cessation Date was within the last 15 years Hx Smoking Cessation Date Hx Smoking Cessation Counseling Hematologic Medial History Hematologic Hx - surgical territory manager: Hematologic Medical Hx - stoker erector Hx of Blood Transfusion No 10/30/24 17:34 Hx of Transfusion in last 3 No 10/30/24 17:34 Months Date of Last Transfusion (if within last 3 months) Ever experience any problems No 10/30/24 17:34 with transfusion(s)? Specify any problems Hx of Preganancy in last 3 N/A 10/30/24 17:34 Months Nurse Filling Out Transfusion FSTEINER 10/30/24 17:34 & Questions: Date: 10/30/24 10/30/24 17:34 Time: 17:36 10/30/24 17:34 Patient unable to answer at this time (ie. confused, unrespo /Reproduction History /Reproductive History - surgical territory manager: /Reproductive Hx- surgical territory manager Hx Now Gestational Age (in weeks): EDC: Hx Hx Para Hx Section SAB Active Medications Active Medications: Current Medications Generic Name Dose Route Start Last Admin Trade Name Freq PRN Reason Stop Dose Admin Acetaminophen 1,000 mg 10/30/24 22:00 11/04/24 06:14 Acetaminophen 500 Mg Tablet PO Not Given Q8 [facility] Amlodipine Besylate 5 mg 10/31/24 10:00 11/04/24 10:27 Amlodipine 5 Mg Tablet PO Not Given DAILY [facility] Protocol Cholecalciferol 50 mcg 10/31/24 10:00 11/04/24 10:28 Cholecalciferol (Vit D3) 25 Mcg Tablet (1,000 Units) PO Not Given DAILY [facility] Enoxaparin Sodium 40 mg 10/31/24 10:00 11/03/24 13:07 Enoxaparin 40 Mg/0.4 Ml Syringe SC 40 mg DAILY [facility] Administration Sodium Chloride 100 mls @ 15 mls/hr 10/30/24 17:38 10/31/24 06:55 IV Infused .Q6H40M PRN Infusion Saline Flush Sodium Chloride 100 mls @ 15 mls/hr 10/30/24 17:38 IV .Q6H40M PRN Additional IVPB Infusion Pantoprazole Sodium 80 mg/ 100 mls @ 10 mls/hr 10/31/24 02:55 11/04/24 07:45 Sodium Chloride CONT INF Infused Q10H [facility] Infusion Ceftriaxone Sodium 2 gm/ 50 mls @ 100 mls/hr 11/02/24 14:00 11/03/24 19:51 Sodium Chloride IV Infused Q24 [facility] Infusion Lisinopril 20 mg 10/31/24 10:00 11/04/24 10:28 Lisinopril 20 Mg Tablet PO Not Given DAILY [facility] Protocol Melatonin 3 mg 10/30/24 18:50 11/03/24 19:51 Melatonin 3 Mg Tablet PO 3 mg QHS PRN PRN Administration INSOMNIA Metoprolol Succinate 100 mg 10/31/24 10:00 11/04/24 10:28 Metoprolol(Xl)Succ 100 Mg Tablet PO Not Given DAILY [facility] Protocol Morphine Sulfate 2 mg 10/30/24 21:39 10/31/24 23:00 Morphine 2 Mg/Ml Syringe IV 2 mg Q3H PRN PRN Administration Pain Score 6-10 Ondansetron HCl 4 mg 10/30/24 18:50 Ondansetron 4 Mg/2 Ml Vial IV Q8H PRN PRN NAUSEA/VOMITING Oxycodone HCl 5 mg 10/30/24 21:39 10/31/24 20:05 Oxycodone 5 Mg Tablet PO 5 mg Q4H PRN PRN Administration Pain Score 4-10 Potassium Chloride 20 meq 11/03/24 08:00 11/04/24 10:27 Potassium Chloride Oral Tablet 20 Meq [facility] Risper[facility] 0.5 mg 10/31/24 22:00 11/03/24 19:51 Risperidone 0.5 Mg Tablet PO 0.5 mg QHS [facility] Administration Protocol Sodium Chloride 10 - 40 ml 10/30/24 17:38 11/03/24 13:07 0.9% Saline Lock 10 Ml Syringe IV 20 ml UD PRN Administration SALINE FLUSH Tamsulosin HCl 0.4 mg 10/31/24 17:30 11/03/24 17:50 Tamsulosin Hcl 0.4 Mg Capsule PO 0.4 mg DAILY@1730 [facility] Administration [facility] Medical History Anxiety Depression Osteoporosis Non-smoker Cerebral palsy Cataract Palpitations Elevated blood pressure reading without diagnosis of hypertension Essential (primary) hypertension Home Medications ?Medication ?Instructions ?Recorded ?Last Taken ?Type apple cider vinegar 600 mg capsule 600 mg PO QDAY 01/16/18 Unknown History flaxseed oil 1,000 mg capsule 1,000 mg PO QDAY 01/16/18 Unknown History garlic 200 mg tablet 200 mg PO QDAY 01/16/18 Unknown History glucosamine HCl 500 mg tablet 500 mg PO QDAY 01/16/18 Unknown History red yeast rice 600 mg capsule 600 mg PO QDAY 01/16/18 Unknown History cholecalciferol (vitamin D3) 25 2,000 unit PO QDAY 07/25/23 Unknown History mcg (1,000 unit) tablet metoprolol succinate 50 mg 50 mg PO DAILY #90 TABLETS 01/22/24 Unknown Rx tablet,extended release 24 hr lisinopril 20 mg tablet 20 mg PO QDAY #90 tabs 03/02/24 Unknown Rx amlodipine 5 mg tablet 5 mg PO DAILY #90 tabs 10/05/24 Unknown Rx Allergy/AdvReac Type Severity Reaction Status Date / Time amantadine (From Symmetrel) AdvReac Severe Unknown Verified 10/30/24 11:00 amoxicillin (From Augmentin) AdvReac Severe Unknown Verified 10/30/24 11:00 clavulanic acid (From AdvReac Severe Unknown Verified 10/30/24 11:00 Augmentin) erythromycin base AdvReac Severe Unknown Verified 10/30/24 11:00 lorazepam (From Ativan) AdvReac restless Verified 10/30/24 17:39 Family History Father Diabetes Hypertension Mother alzhemier Osteoporosis Surgical History History of tonsillectomy History of hysterectomy History of hip replacement Social History Smoking Status: Never smoker alcohol intake: never substance use type: does not use caffeine: Yes Type: coffee Number of servings: 3 what type of physical activity do you participate in: none seatbelt use: always do you feel safe at home: Yes Review of Systems (Anesthesia) ROS Narrative System reviewed and no additional complaints, except as documented.
--- NOTE | 2024-11-04 11:35 | SUR.PREOP ---
DR. MARS AWARE OF PATIENT'S TACHY CARDIA, TACHYPNEA, AND FEVER. HE SPOKE WITH DR. SOSA AND COLONOSCOPY NEEDS TO BE DONE D/T POSSIBLE BACTERIAL INFECTION IN HER GI TRACT. THIS NURSE CALLED UP TO [facility] AND SPOKE TO CHLOE AND ASKED FOR HER NEXT KRYDER. CHLOE SAID THAT PATIENT DID NOT HAVE A FEVER PRIOR TO COMING DOWN.
--- NOTE | 2024-11-04 12:06 | CASEMGMT ---
[facility] has accepted and will start precert when pt is medically ready. Elisabeth Daniels DC Planning Asst.
--- NOTE | 2024-11-04 12:29 | PCM.POST.ANE ---
Anesthesia: Postop Eval I Current Vital Signs Temperature: 98.6 F Pulse Rate: 83 Blood Pressure: 91/56 Respiratory Rate: 18 Pulse Ox: 99 Oxygen Delivery Method: Room Air Assessment Airway patent: Yes Spontaneous unlabored respirations: Yes Mental status: Awake and Calm nausea: No Vomiting: No Anesthesia Complication: No Fluid Hydration Crystalloid volume administer (ml): 200 Total IV fluid infused: 200 Progress Note Anesthesia document: Postop Eval 1 completed: Yes
--- NOTE | 2024-11-04 12:30 | OP.CCLET_ITS ---
11/04/2024 No Primary Care Physician Re : Colonoscopy procedure for Claritza Burton Dear Care Physician This procedure was performed on Monday, November 04, 2024. My impressions and recommendations are as follows: Impressions : - Diffuse mild mucosal changes were found in the sigmoid colon, in the descending colon, at the hepatic flexure, in the ascending colon and in the cecum secondary to colitis. Biopsied. - Stool in the recto-sigmoid colon, in the sigmoid colon, in the descending colon and in the cecum. Fluid aspiration performed. - Diverticulosis in the recto-sigmoid colon and in the sigmoid colon. Recommendations : - Discharge patient to home. - Resume previous diet. - Continue present medications. - Await pathology results. - No repeat colonoscopy due to age. My findings are described in the full procedure note, which is enclosed. If I can be of further assistance, please feel free to contact me at . Sincerely, Cristino Kwan, 11/04/2024 12:29:41 PM This report has been signed electronically.
--- NOTE | 2024-11-04 12:30 | OP.COLON_ITS ---
Patient Name: Claritza Burton Procedure Date: 11/04/2024 11:45 AM Date of : 1945 Age: 79 Procedure: Colonoscopy Indications: Preoperative assessment, Colitis, presumed infectious Providers: Cristino Kwan DO Medicines: Monitored Anesthesia Care Patient Profile: This is a 79 year old female. Refer to note in patient chart for documentation of history and physical. Last Colonoscopy: none. The patient's first colonoscopy is today. Complications: No immediate complications. Procedure: Pre-Anesthesia Assessment: - Prior to the procedure, a History and Physical was performed, and patient medications and allergies were reviewed. The patient is competent. The risks and benefits of the procedure and the sedation options and risks were discussed with the patient. All questions were answered and informed consent was obtained. Patient identification and proposed procedure were verified by the physician in the pre-procedure area. Mental Status Examination: alert and oriented. Airway Examination: normal oropharyngeal airway and neck mobility. Respiratory Examination: clear to auscultation. CV Examination: normal. Prophylactic Antibiotics: The patient does not require prophylactic antibiotics. Prior Anticoagulants: The patient has taken no anticoagulant or antiplatelet agents except for NSAID medication. ASA Grade Assessment: III - A patient with severe systemic disease. After reviewing the risks and benefits, the patient was deemed in satisfactory condition to undergo the procedure. The anesthesia plan was to use monitored anesthesia care (MAC). Immediately prior to administration of medications, the patient was re-assessed for adequacy to receive sedatives. The heart rate, respiratory rate, oxygen saturations, blood pressure, adequacy of pulmonary ventilation, and response to care were monitored throughout the procedure. The physical status of the patient was re-assessed after the procedure. After I obtained informed consent, the scope was passed under direct vision. Throughout the procedure, the patient's blood pressure, pulse, and oxygen saturations were monitored continuously. The Colonoscope was introduced through the anus and advanced to the cecum, identified by appendiceal orifice and ileocecal valve. The colonoscopy was performed without difficulty. The patient tolerated the procedure well. The quality of the bowel preparation was adequate. Scope In: 12:01:54 PM Scope Withdrawal Time 0 hours 7 minutes 16 seconds Scope Out: 12:19:21 PM Total Procedure Duration Time 0 hours 17 minutes 27 seconds Findings: The perianal and digital rectal examinations were normal. Diffuse mild mucosal changes characterized by erythema were found in the sigmoid colon, in the descending colon, at the hepatic flexure, in the ascending colon and in the cecum. Biopsies were taken with a cold forceps for histology. Verification of patient identification for the specimen was done. Estimated blood loss was minimal. Stool was found in the recto-sigmoid colon, in the sigmoid colon, in the descending colon and in the cecum. Fluid aspiration was performed through the scope suction channel. The amount of fluid collected was 60 mL. Sample(s) were sent for bacterial cultures. A few small-mouthed diverticula were found in the recto-sigmoid colon and sigmoid colon. Impression: - Diffuse mild mucosal changes were found in the sigmoid colon, in the descending colon, at the hepatic flexure, in the ascending colon and in the cecum secondary to colitis. Biopsied. - Stool in the recto-sigmoid colon, in the sigmoid colon, in the descending colon and in the cecum. Fluid aspiration performed. - Diverticulosis in the recto-sigmoid colon and in the sigmoid colon. Recommendation: - Discharge patient to home. - Resume previous diet. - Continue present medications. - Await pathology results. - No repeat colonoscopy due to age. Procedure Code(s): --- Professional --- 40687, Colonoscopy, flexible; with biopsy, single or multiple CPT copyright 2021 [employer]. All rights reserved. The codes documented in this report are preliminary and upon chief console operator review may be revised to meet current compliance requirements. Cristino Kwan DO 11/04/2024 12:29:41 PM This report has been signed electronically. Number of Addenda: 0 Note Initiated On: 11/04/2024 11:45 AM
--- NOTE | 2024-11-04 13:12 | POSTOPAN2_ITS ---
Anesthesia Postop Eval I Sum Postop Eval Completion status Anesthesia document: Postop Eval 1 completed: Yes Anesthesia Postop Eval I Summary Anesthesia Postop Eval I Summary: Anesthesia Postop Eval I: Assessment Summary Airway patent Yes 11/04/24 12:30 [email or web address] Spontaneous unlabored Yes 11/04/24 12:30 REFRIGERATOR [email or web address] respirations Mental status Awake,Calm 11/04/24 12:30 [email or web address] [email or web address] nausea No 11/04/24 12:30 REFRIGERATOR [email or web address] Vomiting No 11/04/24 12:30 REFRIGERATOR [email or web address] Anesthesia Postop Eval I: Fluid Summary Crystalloid volume administer 200 11/04/24 12:30 REFRIGERATOR [email or web address] (ml) Colloids volume administered ( ml) Blood Product volume administered (ml) Total IV fluid infused 200 11/04/24 12:30 REFRIGERATOR [email or web address] Anesthesia Postop Eval I: Summary Notes Anesthesia Complication No 11/04/24 12:30 [email or web address] [email or web address] Anesthesia Complication Comment: Post-operative progress note Anesthesia: Postop Eval II Evaluation Mental status: Awake Pain Level: 0 nausea: No Vomiting: No
--- NOTE | 2024-11-04 13:12 | PCM.POSTANE2 ---
Anesthesia Postop Eval I Sum Postop Eval Completion status Anesthesia document: Postop Eval 1 completed: Yes Anesthesia Postop Eval I Summary Anesthesia Postop Eval I Summary: Anesthesia Postop Eval I: Assessment Summary Airway patent Yes 11/04/24 12:30 [email or web address] Spontaneous unlabored Yes 11/04/24 12:30 [email or web address] [email or web address] respirations Mental status Awake,Calm 11/04/24 12:30 [email or web address] [email or web address] nausea No 11/04/24 12:30 [email or web address] [email or web address] Vomiting No 11/04/24 12:30 [email or web address] Anesthesia Postop Eval I: Fluid Summary Crystalloid volume administer 200 11/04/24 12:30 [email or web address] (ml) Colloids volume administered ( ml) Blood Product volume administered (ml) Total IV fluid infused 200 11/04/24 12:30 [email or web address] Anesthesia Postop Eval I: Summary Notes Anesthesia Complication No 11/04/24 12:30 [email or web address] Anesthesia Complication Comment: Post-operative progress note Anesthesia: Postop Eval II Evaluation Mental status: Awake Pain Level: 0 nausea: No Vomiting: No
[2024-11-04] MEDS: Morphine 2 MG/ML Syringe IV (13:30)
[2024-11-04] MEDS: 0.9% Saline Lock 10 ML Syringe IV (13:31)
[2024-11-04] MEDS: Pantoprazole Sodium 80 MG in 0.9% Normal Saline (100mL Bag) 80 ML 10 MG CONT INF (13:57)
[2024-11-04] MEDS: Ceftriaxone 2 GM in 0.9% Normal Saline (50mL MB+) 50 ML IV (15:52)
[2024-11-05] VITALS (8 sets, daily range): BP systolic 129–148; BP diastolic 60–89; PULSE 87–145; RESP 15–18; TEMP 36.2–37.5; O2SAT 95–99
[2024-11-05] MEDS: Pantoprazole Sodium 80 MG in 0.9% Normal Saline (100mL Bag) 80 ML 10 MG CONT INF (05:46)
[2024-11-05 06:58] LABS: Absolute Lymphocyte Count 1.98 X10^3/uL (0.83-4.51); Absolute Neutrophil Count 9.6 X10^3/uL (2.0-7.7); Basophil# 0.09 X10^3/uL; Basophil% 0.7 % (0-1); Eosinophil# 0.05 X10^3/uL; Eosinophils% 0.4 % (0-5); Hemoglobin 10.7 g/dL (12.0-15.0); Lymphocyte # 1.98 X10^3/ul (0.83-4.51); Lymphocyte % 15.1 % (19-41); Mean Corp Hgb Conc 33.4 g/dL (32-36); Mean Corpuscular Hgb 30.7 pg (27.0-32.0); Mean Platelet Vol. 10.6 fl (6.2-12.0); Monocyte# 1.15 X10^3/uL; Monocyte% 8.8 % (0-10); NRBC Flagged by Analyzer 0 % (0-5); Neutrophil # 9.59 X10^3/uL (2.7-7.7); Neutrophil % 73.1 % (47-70); Platelet Count 307 K/mm3 (150-450); RBC Distribution Width CV 13.6 % (11.6-14.6); RBC Distribution Width SD 46.1 fl (35.1-43.9); Red Blood Count 3.48 M/mm3 (4.2-5.4); White Blood Count 13.1 K/mm3 (4.4-11.0)
[2024-11-05 07:43] LABS: Anion Gap 15 (5-15); BUN 17 mg/dL (7-18); BUN/Creat Ratio 42.1 RATIO (10-20); Calcium,Total 8.7 mg/dL (8.5-10.1); Chloride 108 mmol/L (98-107); EST Glomerular Filtration Rate 162 mL/min (>60); Est Glom Filt Rate - Afr Amer 196 mL/min (>60); Estimated Creatinine Clearance 57.27 ml/min; Glucose 69 mg/dL (74-106); Sodium Level 139 mmol/L (136-145)
--- NOTE | 2024-11-05 10:12 | CASEMGMT ---
Addendum entered by Loren Infante 11/05/24 10:56: MRI read, message sent to ID. Original Note: Spoke with ID who is awaiting MRI read to determine if pt needs a picc line and IV atb. MRI working on getting this read expedited.
[2024-11-05] MEDS: amLODIPine 5 MG Tablet PO (10:31)
[2024-11-05] MEDS: Lisinopril 20 MG Tablet PO (10:31)
[2024-11-05] MEDS: Cholecalciferol (VIT D3) 25 MCG TABLET (1,000 UNITS) 50 MCG PO (10:31)
[2024-11-05] MEDS: Enoxaparin 40 MG/0.4 ML Syringe SC (10:31)
--- NOTE | 2024-11-05 10:45 | PN.HOSP_ITS ---
Reason for Visit Reason for Visit: Diagnoses Other viral infections of unspecified site (10/30/24) Unspecified streptococcus as the cause of diseases classified elsewhere (10/30/24) Elevated white blood cell count, unspecified (10/30/24) Hypokalemia (10/30/24) Cerebral palsy, unspecified (10/30/24) Other low back pain (10/30/24) Tachycardia, unspecified (10/30/24) Difficulty in walking, not elsewhere classified (10/30/24) Retention of urine, unspecified (10/30/24) Bacteremia (10/30/24) Subjective Subjective Patient seen underwent colonoscopy the day prior results of colonoscopy as documented below. Patient also underwent modified barium swallow evaluation as a result of dysphagia this morning recommendations from speech therapy was reviewed. Diagnostic data reviewed significant for potassium of 3.0 and additional replacement given Objective Data Objective Data Vital Signs: Vital Signs Temp Pulse Resp BP Pulse Ox O2 Del Method 97.2 F L 145 H 18 129/74 H 98 Room Air 11/05/24 08:10 11/05/24 08:10 11/05/24 08:10 11/05/24 08:10 11/05/24 08:10 11/05/24 08:31 Oxygen Delivery Method Room Air Weight: 63 kg Body Mass Index (BMI) 21.7 Intake & Output: Intake and Output for Last 24 Hours 11/03/24 11/04/24 11/05/24 23:59 23:59 23:59 Intake Total 245.67 / 245.67 550 / 550 100 / 100 Output Total 1025 / 1125 450 / 450 400 / 400 Balance -779.33 / -879.33 100 / 100 -300 / -300 Lab / Micro Data 11/05/24 05:25 11/05/24 05:25 Labs: Laboratory Results - last 24 hr 11/05/24 05:25: WBC 13.1 H, RBC 3.48 L, Hgb 10.7 L, Hct 32.0 L, MCV 92.0, MCH 30.7, MCHC 33.4, RDW Std Deviation 46.1 H, RDW Coeff of Roselyn 13.6, Plt Count 307, MPV 10.6, Immature Gran % (Auto) 1.900 H, Neut % (Auto) 73.1 H, Lymph % (Auto) 15.1 L, [place] % (Auto) 8.8, Eos % (Auto) 0.4, Baso % (Auto) 0.7, Absolute Neuts (auto) 9.6 H, Absolute Lymphs (auto) 1.98, Nucleated RBC % 0, Sodium 139, P otassium 3.0 L, Chloride 108 H, Carbon Dioxide 16.0 L, Anion Gap 15, BUN 17, C reatinine 0.40 L, Estim Creat Clear Calc 57.27, Est GFR (MDRD) Af Amer 196, Est GFR (MDRD) Non-Af 162, BUN/Creatinine Ratio 42.1 H, Glucose 69 L, Calcium 8.7 Micro: Microbiology 11/04/24 Unknown Stool Enteric Bacteriology - Final 11/04/24 Unknown Stool Clostridioides difficile (PCR) - Final 11/02/24 07:45 Blood Culture (Wb) - Right Wrist Blood Culture - Preliminary No growth in 48 hours. 11/02/24 07:50 Blood Culture (Wb) - Left Forearm Blood Culture - Preliminary No growth in 48 hours. 10/30/24 23:28 Blood Culture (Wb) - Left Wrist Blood Culture - Final Alpha hemolytic organism 10/30/24 23:40 Blood Culture (Wb) - Right Hand Bacteria Detection (PCR) - Final Strep not Strep pneumo 10/30/24 23:40 Blood Culture (Wb) - Right Hand Blood Culture - Final Streptococcus alactolyticus 10/30/24 23:20 Mucosa - Nasopharyngeal Respiratory Panel (PCR) - Final Parainfluenza 4 10/31/24 07:10 Nasal Secretion SARS-CoV-2 Antigen (Rapid) - Final Physical Exam Narrative GENERAL: cooperative HEENT: Atraumatic; normocephalic EYES; Anicteric, Normal Conjunctiva NECK; supple, normal thyroid, RESPIRATORY: Diminished to auscultation CARDIOVASCULAR: Regular S1 S2, GI: soft, normoactive bowel sounds, : No Renal angle tenderness; EXTREMITIES: No edema, no clubbing, MUSCULOSKELETAL: no muscle wasting NEURO: Awake; no lateralizing signs. SKIN: No Rash PSYCH; Flat affect Assessment & Plan Assessment/Plan (1) Difficulty in walking: (2) Urinary retention: (3) Leukocytosis: (4) Intractable low back pain: (5) Tachycardia: (6) Parainfluenza virus infection: (7) Hypokalemia: PLAN: Plan Patient is a 79-year-old lady with underlying history of cerebral palsy who presented with worsening back pain and difficulty with ambulation. Patient tested positive for acute parainfluenza virus. Hospital stay complicated by alphahemolytic strep bacteremia. Admitted to regular nursing floor for further management 1. Acute parainfluenza virus infection ? Managed with supportive care 2. Streptococcus alactolyticus bacteremia ? Etiology not clear. Repeat blood cultures ordered patient started on broad- spectrum antibiotic therapy consult placed to ID ? 11/03/2024; patient was seen in consultation by Dr. Louis with ID recommended colonoscopy consult subsequently placed to Dr. Kwan ? 11/04/2024 scheduled to undergo colonoscopy -11/05/2024; colonoscopy performed the day prior did show - Diffuse mild mucosal changes were found in the sigmoid colon, in the d escending colon, at the hepatic flexure, in the ascending colon and in the cecum secondary to colitis. Biopsied. - Stool in the recto-sigmoid colon, in the sigmoid colon, in the descending colon and in the cecum. Fluid aspiration performed. Diverticulosis in the recto-sigmoid colon and in the sigmoid colon. 3. Intractable low back pain ?MRI of the lumbar spine showed multilevel degenerative changes in the thoracolumbar spine that most severe at L5-S1 and grade 1 antereolisthesis of L5 on S1. In view of patient bacteremia repeat MRI with contrast was ordered 4. Physical deconditioning ? Requested for PT OT eval and foster care social worker to assist with discharge planning 5. Acute urinary retention Patient was started on Flomax Lau catheter was placed Urinary retention 6. Hypophosphatemia ? corrected per protocol 7. Hypokalemia ? Corrected per protocol ? 11/04/2024 potassium this morning 2.5 additional replacement ? 11/05/2024; potassium up to 3.0 additional replacement given Cerebral palsy ? Supportive care 9. Hypertension ? Blood pressure controlled, home medications continued with dose adjustment as needed 10. DVT prophylaxis -Continue enoxaparin 40 daily Time spent in the patient's overall evaluation,decision-making process, review of diagnostic data, adjustment of management, discussion with other providers, nursing nursing and ancillary staff involved in patient's care documentation, 40 minutes Charges/Coding Visit Charges Inpatient E&M: 61481 Subs Hosp L2
--- NOTE | 2024-11-05 10:52 | PCM.PN.ID ---
Physical Exam Narrative Having a lot of pain in lower back and down RLE. No fever. Const alert and no apparent distress General Appearance: cooperative Resp normal air movement and clear to auscultation bilaterally Cardio regular rate and regular rhythm GI soft to palpation, non-tender and non-distended Skin no rashes or lesions noted ID ID: Route of nutrition/ use of supplements: [] Nutritional Intake: [] IV Site: [] Lau Catheter: [] Assessment & Plan Assessment/Plan (1) Parainfluenza virus infection: (2) Intractable low back pain: (3) Cerebral palsy: (4) Streptococcal bacteremia: PLAN: 2 of 2 bcx with strep bovis family. TTE neg for veg. MRI L-spine with contrast did not show clear evidence osteo/discitis. With bovis seen, colonoscopy was done 11/04/[address] Kwan, biopsy taken. Cont ceftriaxone. CT abd/pelvis did not show colitis/abscess. With ongoing back/RLE pain with severe stenosis and foraminal narrowing, may need spine surgery eval. Plan will be for po cefdinir 300mg bid for one more week at discharge. Will follow
[2024-11-05] MEDS: Ceftriaxone 2 GM in 0.9% Normal Saline (50mL MB+) 50 ML IV (10:59)
[2024-11-05] MEDS: Potassium Chloride 10mEq/100mL 10 MEQ/100 ML IV.SOLN. 100 MEQ IV BOLUS ×4 (11:03→14:24)
[2024-11-05] MEDS: Metoprolol(XL)Succ 100 MG Tablet PO (11:07)
[2024-11-05] MEDS: Potassium Chloride Oral Tablet 20 MEQ 40 MEQ PO ×2 (11:08→16:35)
--- NOTE | 2024-11-05 11:52 | SP.MBSS_ITS ---
Modified Barium Swallow Patient Information Study Date: 11/05/24 Study Time: 09:30 Direct Billable Minutes: 87 Total Minutes procedure & reportin Diagnosis: Cerebral Palsy G80.9 Referring Physician: Zachary Madison Reason for Referral: Objectively assess swallow function, assess risk for aspiration, and determine recommendations for least restrictive diet textures and compensatory strategies to improve safety of swallow. Medical History: The patient is a 79 F who presented to [facility] ED on 10/30/2024 with worsening low back pain and difficulty with ambulation. Patient has history of cerebral palsy but is high functioning, lives at home by herself. PMH: Anxiety and depression. Does have family that live close by. Patient had a mechanical fall in the kitchen about 2 weeks ago and then had another fall about 1 week ago where she landed on her buttocks. Since then she has had worsening low back pain and difficulty with ambulation. Family transported patient to [facility] as she had too much pain and lower extremity weakness to get out of bed. In the ED she was tachycardic to the 110s but otherwise hemodynamically stable on room air. Pt was admitted for management of difficulty walking, parainfluenza virus, and tachycardia amongst other comorbidities. Referred to ST for dysphagia evaluation due to difficulty swallowing medications. BSE 10/31/24 recommended minced and moist textures / thin liquids w/ consideration for MBSS in upcoming sessions. Very poor diet tolerance 11/03/2024 w/ severe coughing w/ tsp of liquids. Unable to complete MBSS 11/04/2024 d/t to NPO for colonoscopy. Plan for MBSS today prior to diet advancement. Current Diet Ordered: NPO Dentition: Natural Teeth Mental Status: Impaired Respiratory Status: Oxygenating on Room Air Penetration-Aspiration Scale Penetration-Aspiration Scale: OBJECTIVE ASSESSMENT OF SWALLOW FUNCTION (QUANTITATIVE ? PER TRIAL): PENETRATION / ASPIRATION SCALE (DONALDSON): 1 = does not enter airway 2 = enters airway/above vocal folds/ejected 3 = enters airway/above vocal folds/not ejected 4 = enters airway/contacts vocal folds/ejected 5 = enters airway/contacts vocal folds/not ejected 6 = enters airway/below vocal folds/ejected 7 = enters airway/below vocal folds/not ejected despite effort 8 = enters airway/below vocal folds/no effort VIDEOFLOROSCOPIC SCALE SCORE (DONALDSON): Grade I = aspiration of material that has penetrated into the laryngeal vestibule, intact cough reflex Grade II = aspiration < 10 % of the bolus, intact cough reflex Grade III = aspiration of < 10 % of the bolus, reduced cough reflex or aspiration of > 10 % of the bolus, intact cough reflex Grade IV = aspiration of > 10 % of the bolus, reduced cough reflex Penetration-Aspiration Scale Score Thin Liquid via 1/2 teaspoon: Result: 3= enters airways/above vocal folds/not ejected Thin Liquid via teaspoon: Result: 3= enters airways/above vocal folds/not ejected Thin Liquid via teaspoon Trial 2: Result: 3= enters airways/above vocal folds/not ejected Thin Liquid via small single sip: cup: Result: 3= enters airways/above vocal folds/not ejected [place] Thick Liquid via teaspoon: Result: 2= enter airway/above vocal folds/ejected Comment: Post prandial aspiration of residues of previous trials that remained in the laryngeal vestibule. [place] Thick Liquid via large single sip: cup: Result: 1= does not enter airway [place] Thick Liquid via large single sip: cup Trial 2: Result: 2= enter airway/above vocal folds/ejected Pudding via teaspoon: Result: 1= does not enter airway Bite-size peach w/ barium pudding: Result: 1= does not enter airway [place] Thick Liquid via large single sip: cup Trial 3: Result: 1= does not enter airway Oral Phase Labial Seal: Escape beyond mid-chin Tongue Control During Bolus Hold: Posterior escape of greater than half of bolus Bolus Preparation/Mastication: Slow prolonged chewing/mashing with complete recollection Bolus Transport/Lingual Motion: Delayed initiation of tongue motion Oral Residue: Residue collection on oral structures Pharyngeal Phase Initiation of Pharyngeal Swallow: Bolus head in pyriforms Soft Palate Elevation: Trace column of contrast/air between soft palate and pharyngeal wall Laryngeal Elevation: Partial superior movement thyroid cart/partial apprx aryt- epig petiole Anterior Hyoid Excursion: Partial anterior movement Epiglottic Movement: Partial inversion Laryngeal Vestibule Closure at Height of Swallow: Incomplete; narrow column of air/contrast in laryngeal vestibule Pharyngeal Stripping Wave: Present - diminished Pharyngoesophageal Segment Opening: Parital distension and partial duration; parital obstruction of flow Tongue Base Retraction: Wide column of contrast between tongue base & post. pharyngeal wall Pharyngeal Residue: Collection of residue within or on pharyngeal structures Esophageal Phase Esophageal Clearance: Complete clearance Diagnosis/Impression Diagnosis: Moderate oropharyngeal dysphagia R13.12 Impression: The oral phase is primarily marked by... -Decreased bolus control w/ posterior loss of >1/2 of the bolus to the pharynx prior to swallow onset. -Delayed tongue motion for A-P transport. -Slow, but complete mastication of peach. -Mild oral residue after the swallow. The pharyngeal phase is primarily marked by... -Decreased pharyngeal motility secondary to decreased TB retraction, pharyngeal stripping wave, and UES opening/duration w/ mild-moderate pharyngeal residue. -Decreased airway closure due to decreased anterior hyoid excursion, laryngeal elevation, and partial epiglottic inversion. -Post prandial aspiration of thin liquids w/ reflexive throat clear. Delayed cough not captured on fluoroscopy, but no barium was present in the trachea after this cough. Recommendations Diet: Mechanical Soft Textures (Minced and Moist textures - IDDSI Level 5) and [place]armwood-thick Liquids Compensatory Strategies: Small Bites, Small Sips, Slow Rate, Alternate bites/solids and sips/liquids, Sitting upright and Remain sitting upright for 30 minutes after PO intake Supervision: Total Feed Recommend Repeat Modified Barium Swallow: Yes (2-4 weeks after implementation of oropharyngeal exercise program) Need for Skilled Speech Therapy Services: Yes Comment: -Ongoing assessment of diet tolerance of recommended textures. Repeat MBSS prior to diet advancement due to severe coughign and poor coping w/ thin liquids at bedside. -Train the patient in oropharyngeal exercise program to improve bolus control, pharyngeal motility, UES opening/duration, and airway closure (lingual resistance, Effortful, jaw stretch, CTAR). Education Completed: 1. Described result of evaluation. and 7. Pt requires further education on strategies & risks. Status Active ST Patient: Active Contact Information [facility] Speech Therapy:: Lexy Majano M.A. CCC-TANBARK LABORER? Speech-Language Pathologist?? [facility] [address] [place] [address]? [email or web address]?? [phone]
--- NOTE | 2024-11-05 12:40 | CASEMGMT ---
Updates sent to [facility] with note to submit for precert. Elisabeth Daniels DC Planning Asst.
[2024-11-05] MEDS: Acetaminophen 500 MG Tablet 1000 MG PO ×2 (14:25→21:35)
[2024-11-05] MEDS: Tamsulosin HCl 0.4 MG Capsule PO (16:35)
--- NOTE | 2024-11-05 17:58 | PCM.PN.BLA ---
Progress Note Patient underwent a colonoscopy yesterday due to a Streptococcus bovis bacteremia. Patient is tolerating a diet today. Physical Exam Narrative No fever. Const alert and no apparent distress General Appearance: cooperative Resp normal air movement and clear to auscultation bilaterally Cardio regular rate and regular rhythm GI soft to palpation, non-tender and non-distended Skin no rashes or lesions noted Assessment & Plan Assessment/Plan (1) Difficulty in walking: (2) Urinary retention: (3) Leukocytosis: (4) Intractable low back pain: (5) Tachycardia: (6) Parainfluenza virus infection: (7) Hypokalemia: PLAN: Plan Patient is a 79-year-old lady with underlying history of cerebral palsy who presented with worsening back pain and difficulty with ambulation. Patient tested positive for acute parainfluenza virus. Hospital stay complicated by alphahemolytic strep bacteremia. The patient did have colonoscopy yesterday and your prep was fairly good. There were no polyps or lesions usually seen in an Streptococcus bovis bacteremic patient. A. Cecum, biopsy: Fragments of colonic mucosa, no pathologic diagnosis. B. Colon, random biopsy: Fragments of colonic mucosa with focal mild glandular distortion. Rare pigment laden macrophages, suggestive of melanosis coli. Await stool cultures. I suspect that the mild glandular distortion was seen, biopsy is secondary to infection such as Streptococcus bovis. Visit Charges Inpatient E&M: 31078 [facility] Hosp L3
[2024-11-05] MEDS: RisperiDONE 0.5 MG Tablet PO (21:35)
[2024-11-06 02:31] VITALS: BP 132/64; PULSE 98; RESP 15; TEMP 37.2; O2SAT 97
[2024-11-06] MEDS: Acetaminophen 500 MG Tablet 1000 MG PO ×3 (06:22→21:05)
[2024-11-06 06:39] LABS: Absolute Lymphocyte Count 1.69 X10^3/uL (0.83-4.51); Absolute Neutrophil Count 8.2 X10^3/uL (2.0-7.7); Basophil# 0.09 X10^3/uL; Basophil% 0.8 % (0-1); Eosinophil# 0.08 X10^3/uL; Eosinophils% 0.7 % (0-5); Hematocrit 28.8 % (37-47); Hemoglobin 9.6 g/dL (12.0-15.0); Lymphocyte # 1.69 X10^3/ul (0.83-4.51); Lymphocyte % 15.1 % (19-41); Mean Corp Hgb Conc 33.3 g/dL (32-36); Mean Corpuscular Hgb 30.8 pg (27.0-32.0); Mean Corpuscular Volume 92.3 fL (81-99); Mean Platelet Vol. 10.2 fl (6.2-12.0); Monocyte# 0.96 X10^3/uL; Monocyte% 8.6 % (0-10); NRBC Flagged by Analyzer 0 % (0-5); Neutrophil # 8.18 X10^3/uL (2.7-7.7); Neutrophil % 72.9 % (47-70); Platelet Count 328 K/mm3 (150-450); RBC Distribution Width CV 13.9 % (11.6-14.6); RBC Distribution Width SD 46.9 fl (35.1-43.9); Red Blood Count 3.12 M/mm3 (4.2-5.4); White Blood Count 11.2 K/mm3 (4.4-11.0)
[2024-11-06 07:11] LABS: Anion Gap 10 (5-15); BUN 17 mg/dL (7-18); BUN/Creat Ratio 48.2 RATIO (10-20); Calcium,Total 8.7 mg/dL (8.5-10.1); Chloride 112 mmol/L (98-107); Creatinine, Serum 0.35 mg/dL (0.55-1.02); EST Glomerular Filtration Rate 190 mL/min (>60); Est Glom Filt Rate - Afr Amer 230 mL/min (>60); Estimated Creatinine Clearance 57.27 ml/min; Glucose 91 mg/dL (74-106); Magnesium 1.9 mg/dL (1.6-2.6); Phosphorus 2.5 mg/dL (2.5-4.9); Potassium 4.2 mmol/L (3.5-5.1); Sodium Level 141 mmol/L (136-145)
[2024-11-06 08:20] VITALS: BP 133/72; PULSE 100
[2024-11-06] MEDS: Metoprolol(XL)Succ 100 MG Tablet PO (08:20)
[2024-11-06] MEDS: Cholecalciferol (VIT D3) 25 MCG TABLET (1,000 UNITS) 50 MCG PO (08:20)
[2024-11-06] MEDS: Potassium Chloride Oral Tablet 20 MEQ 40 MEQ PO ×2 (08:20→16:57)
[2024-11-06] MEDS: Lisinopril 20 MG Tablet PO (08:21)
[2024-11-06] MEDS: amLODIPine 5 MG Tablet PO (08:21)
[2024-11-06] MEDS: Enoxaparin 40 MG/0.4 ML Syringe SC (08:21)
[2024-11-06 08:49] VITALS: BP 133/72; PULSE 100; RESP 20; TEMP 37.3; O2SAT 96
--- NOTE | 2024-11-06 08:55 | PCM.PN.HOSP ---
Reason for Visit Reason for Visit: Diagnoses Other viral infections of unspecified site (10/30/24) Unspecified streptococcus as the cause of diseases classified elsewhere (10/30/24) Elevated white blood cell count, unspecified (10/30/24) Hypokalemia (10/30/24) Cerebral palsy, unspecified (10/30/24) Other low back pain (10/30/24) Tachycardia, unspecified (10/30/24) Difficulty in walking, not elsewhere classified (10/30/24) Retention of urine, unspecified (10/30/24) Bacteremia (10/30/24) Subjective Subjective Patient seen had a relatively uneventful night. Patient persistent hypokalemia finally resolved. Awaiting insurance pre-CERT prior to transfer to a [facility] facility Objective Data Objective Data Vital Signs: Vital Signs Temp Pulse Resp BP Pulse Ox O2 Del Method 99.0 F 100 15 133/72 H 97 Room Air 11/06/24 02:31 11/06/24 08:20 11/06/24 02:31 11/06/24 08:20 11/06/24 02:31 11/06/24 02:31 Oxygen Delivery Method Room Air Weight: 63 kg Body Mass Index (BMI) 21.7 Intake & Output: Intake and Output for Last 24 Hours 11/04/24 11/05/24 11/06/24 23:59 23:59 23:59 Intake Total 550 / 550 732.83 / 732.83 Output Total 450 / 450 900 / 1100 500 / 500 Balance 100 / 100 -167.17 / -367.17 -500 / -500 Lab / Micro Data 11/06/24 05:44 11/06/24 05:44 Labs: Laboratory Results - last 24 hr 11/06/24 05:44: WBC 11.2 H, RBC 3.12 L, Hgb 9.6 L, Hct 28.8 L, MCV 92.3, MCH 30.8, MCHC 33.3, RDW Std Deviation 46.9 H, RDW Coeff of Roselyn 13.9, Plt Count 328, MPV 10.2, Immature Gran % (Auto) 1.900 H, Neut % (Auto) 72.9 H, Lymph % (Auto) 15.1 L, [place] % (Auto) 8.6, Eos % (Auto) 0.7, Baso % (Auto) 0.8, Absolute Neuts (auto) 8.2 H, Absolute Lymphs (auto) 1.69, Nucleated RBC % 0, Sodium 141, Potassium 4.2, Chloride 112 H, Carbon Dioxide 19.0 L, Anion Gap 10, BUN 17, Creatinine 0.35 L, Estim Creat Clear Calc 57.27, Est GFR (MDRD) Af Amer 230, Est GFR (MDRD) Non-Af 190, BUN/Creatinine Ratio 48.2 H, Glucose 91, Calcium 8.7, Phosphorus 2.5, Magnesium 1.9 Micro: Microbiology 11/04/24 Unknown Stool Enteric Bacteriology - Final 11/04/24 Unknown Stool Clostridioides difficile (PCR) - Final 11/02/24 07:45 Blood Culture (Wb) - Right Wrist Blood Culture - Preliminary No growth in 48 hours. 11/02/24 07:50 Blood Culture (Wb) - Left Forearm Blood Culture - Preliminary No growth in 48 hours. 10/30/24 23:28 Blood Culture (Wb) - Left Wrist Blood Culture - Final Alpha hemolytic organism 10/30/24 23:40 Blood Culture (Wb) - Right Hand Bacteria Detection (PCR) - Final Strep not Strep pneumo 10/30/24 23:40 Blood Culture (Wb) - Right Hand Blood Culture - Final Streptococcus alactolyticus 10/30/24 23:20 Mucosa - Nasopharyngeal Respiratory Panel (PCR) - Final Parainfluenza 4 10/31/24 07:10 Nasal Secretion SARS-CoV-2 Antigen (Rapid) - Final Radiography Diagnostic Testing: Radiology Impression Lumbar Spine MRI 11/02/24 08:00 IMPRESSION: 1. Acquired multilevel degenerative changes, greatest at L5-S1 including moderate/severe spinal stenosis and severe bilateral foraminal narrowing. See level by level comments above. 2. Degenerative grade 1 anterolisthesis of L5-S1. 3. Moderate diffuse bone marrow edema throughout the L5 and S1 vertebral bodies with associated bone marrow and paravertebral enhancement. No associated disc enhancement at this level. Findings could relate to degenerative change however osteomyelitis can not be excluded. Please correlate clinically. Reading Location: [facility] Physical Exam Narrative GENERAL: cooperative HEENT: Atraumatic; normocephalic EYES; Anicteric, Normal Conjunctiva NECK; supple, normal thyroid, RESPIRATORY: Diminished to auscultation CARDIOVASCULAR: Regular S1 S2, GI: soft, normoactive bowel sounds, : No Renal angle tenderness; EXTREMITIES: No edema, no clubbing, MUSCULOSKELETAL: no muscle wasting NEURO: Awake; no lateralizing signs. SKIN: No Rash PSYCH; Flat affect Assessment & Plan Assessment/Plan (1) Difficulty in walking: (2) Urinary retention: (3) Leukocytosis: (4) Intractable low back pain: (5) Tachycardia: (6) Parainfluenza virus infection: (7) Hypokalemia: PLAN: Plan Patient is a 79-year-old lady with underlying history of cerebral palsy who presented with worsening back pain and difficulty with ambulation. Patient tested positive for acute parainfluenza virus. Hospital stay complicated by alphahemolytic strep bacteremia. Admitted to regular nursing floor for further management 1. Acute parainfluenza virus infection ? Managed with supportive care 2. Streptococcus alactolyticus bacteremia ? Etiology not clear. Repeat blood cultures ordered patient started on broad-spectrum antibiotic therapy consult placed to ID ? 11/03/2024; patient was seen in consultation by Dr. Louis with ID recommended colonoscopy consult subsequently placed to Dr. Kwan ? 11/04/2024 scheduled to undergo colonoscopy -11/05/2024; colonoscopy performed the day prior did show - Diffuse mild mucosal changes were found in the sigmoid colon, in the descending colon, at the hepatic flexure, in the ascending colon and in the cecum secondary to colitis. Biopsied. - Stool in the recto-sigmoid colon, in the sigmoid colon, in the descending colon and in the cecum. Fluid aspiration performed. Diverticulosis in the recto-sigmoid colon and in the sigmoid colon. ? 11/06/2024; plan is for patient to be discharged on cefdinir for 1 week on discharge 3. Intractable low back pain ?MRI of the lumbar spine showed multilevel degenerative changes in the thoracolumbar spine that most severe at L5-S1 and grade 1 antereolisthesis of L5 on S1. In view of patient bacteremia repeat MRI with contrast was ordered ? 11/06/2024; patient MRI demonstrated findings consistent with moderate/severe spinal stenosis and severe bilateral foraminal narrowing with degenerative joint disease. Consult was placed to back surgery Dr. Dumont 4. Physical deconditioning ? Requested for PT OT eval and 7th grade social studies teacher to assist with discharge planning 5. Acute urinary retention Patient was started on Flomax Lau catheter was placed Urinary retention 6. Hypophosphatemia ? corrected per protocol 7. Hypokalemia ? Corrected per protocol ? 11/04/2024 potassium this morning 2.5 additional replacement ? 11/05/2024; potassium up to 3.0 additional replacement given Cerebral palsy ? Supportive care 9. Hypertension ? Blood pressure controlled, home medications continued with dose adjustment as needed 10. DVT prophylaxis -Continue enoxaparin 40 daily Time spent in the patient's overall evaluation,decision-making process, review of diagnostic data, adjustment of management, discussion with other providers, nursing nursing and ancillary staff involved in patient's care documentation, 40 minutes Charges/Coding Visit Charges Inpatient E&M: 57459 Subs Hosp L2
[2024-11-06] MEDS: Ceftriaxone 2 GM in 0.9% Normal Saline (50mL MB+) 50 ML IV (10:14)
[2024-11-06 11:10] VITALS: BP 133/68; PULSE 108; RESP 18; TEMP 36.5; O2SAT 97
[2024-11-06 14:07] VITALS: BP 150/73; PULSE 108; RESP 18; TEMP 36.1; O2SAT 98
--- NOTE | 2024-11-06 14:31 | CASEMGMT ---
Request sent to [facility] to call [phone] if they should recieve precert over the weekend. Green sheet indicated not to dc without call from [facility] and that they will provide phone/fax for report. Green sheet and transport form placed on chart. SW updated. Elisabeth Daniels DC Planning Asst.
[2024-11-06] MEDS: Tamsulosin HCl 0.4 MG Capsule PO (16:57)
[2024-11-06] MEDS: Ensure Plus High Protein 120 ML LIQUID PO (16:58)
--- NOTE | 2024-11-06 17:16 | PCM.PN.BLA ---
Progress Note Patient is back pain is a little bit better today. She is tolerating a diet. She is awaiting placement. Physical Exam Narrative GENERAL: cooperative HEENT: Atraumatic; normocephalic EYES; Anicteric, Normal Conjunctiva NECK; supple, normal thyroid, RESPIRATORY: Diminished to auscultation CARDIOVASCULAR: Regular S1 S2, GI: soft, normoactive bowel sounds, : No Renal angle tenderness; EXTREMITIES: No edema, no clubbing, MUSCULOSKELETAL: no muscle wasting NEURO: Awake; no lateralizing signs. SKIN: No Rash PSYCH; Flat affect Assessment & Plan Assessment/Plan (1) Difficulty in walking: (2) Urinary retention: (3) Leukocytosis: (4) Intractable low back pain: (5) Tachycardia: (6) Parainfluenza virus infection: (7) Hypokalemia: PLAN: Plan Patient is a 79-year-old lady with underlying history of cerebral palsy who presented with worsening back pain and difficulty with ambulation. Patient tested positive for acute parainfluenza virus. Hospital stay complicated by alphahemolytic strep bacteremia. The patient did have colonoscopy yesterday and your prep was fairly good. There were no polyps or lesions usually seen in an Streptococcus bovis bacteremic patient. A. Cecum, biopsy: Fragments of colonic mucosa, no pathologic diagnosis. B. Colon, random biopsy: Fragments of colonic mucosa with focal mild glandular distortion. Rare pigment laden macrophages, suggestive of melanosis coli. Await stool cultures. I suspect that the mild glandular distortion was seen, biopsy is secondary to infection such as Streptococcus bovis. 11/06/2024-her stool culture did not show any signs of strep bovis. Not still suspect that it came from the colon. There have been occasions where it has come from the small intestines. I do not think she needs to get culture or imaging of the small bowel at this time. Her hemoglobin is dropping down slightly from 11.1 down to 9.6. If it continues to drop that she may need an upper endoscopy. Visit Charges Inpatient E&M: 25459 Subs Hosp L3
--- NOTE | 2024-11-06 17:32 | CASEMGMT ---
Unfortunately there was some miscommunication and family did not know which facility accepted patient. SW informed family member where patient is going and she notified family that we are just waiting on approval. [facility]. Jenifer Ward GARBAGE COLLECTOR [employer]
[2024-11-06 20:00] VITALS: BP 143/74; PULSE 110; RESP 18; TEMP 36.6; O2SAT 96
[2024-11-06] MEDS: RisperiDONE 0.5 MG Tablet PO (21:05)
[2024-11-07 02:00] VITALS: BP 147/73; PULSE 108; RESP 18; TEMP 37.1; O2SAT 97
[2024-11-07] MEDS: Acetaminophen 500 MG Tablet 1000 MG PO ×3 (05:06→23:59)
--- NOTE | 2024-11-07 07:24 | PN.HOSP_ITS ---
Reason for Visit Reason for Visit: Diagnoses Other viral infections of unspecified site (10/30/24) Unspecified streptococcus as the cause of diseases classified elsewhere (10/30/24) Elevated white blood cell count, unspecified (10/30/24) Hypokalemia (10/30/24) Cerebral palsy, unspecified (10/30/24) Other low back pain (10/30/24) Tachycardia, unspecified (10/30/24) Difficulty in walking, not elsewhere classified (10/30/24) Retention of urine, unspecified (10/30/24) Bacteremia (10/30/24) Subjective Subjective Patient had a regular uneventful night awaiting transfer to a detention facility pending insurance approval Objective Data Objective Data Vital Signs: Vital Signs Temp Pulse Resp BP Pulse Ox O2 Del Method 98.7 F 108 H 18 147/73 H 97 Room Air 11/07/24 02:00 11/07/24 02:00 11/07/24 02:00 11/07/24 02:00 11/07/24 02:00 11/07/24 02:00 Oxygen Delivery Method Room Air Weight: 63 kg Body Mass Index (BMI) 21.7 Intake & Output: Intake and Output for Last 24 Hours 11/05/24 11/06/24 11/07/24 23:59 23:59 23:59 Intake Total 732.83 / 732.83 250 / 250 Output Total 900 / 1100 1000 / 1250 550 / 550 Balance -167.17 / -367.17 -750 / -1000 -550 / -550 Lab / Micro Data 11/07/24 07:10 11/07/24 07:10 Micro: Microbiology 11/04/24 Unknown Stool Enteric Bacteriology - Final 11/04/24 Unknown Stool Clostridioides difficile (PCR) - Final 11/02/24 07:45 Blood Culture (Wb) - Right Wrist Blood Culture - Preliminary No growth in 48 hours. 11/02/24 07:50 Blood Culture (Wb) - Left Forearm Blood Culture - Preliminary No growth in 48 hours. 10/30/24 23:28 Blood Culture (Wb) - Left Wrist Blood Culture - Final Alpha hemolytic organism 10/30/24 23:40 Blood Culture (Wb) - Right Hand Bacteria Detection (PCR) - Final Strep not Strep pneumo 10/30/24 23:40 Blood Culture (Wb) - Right Hand Blood Culture - Final Streptococcus alactolyticus 10/30/24 23:20 Mucosa - Nasopharyngeal Respiratory Panel (PCR) - Final Parainfluenza 4 10/31/24 07:10 Nasal Secretion SARS-CoV-2 Antigen (Rapid) - Final Physical Exam Narrative GENERAL: cooperative HEENT: Atraumatic; normocephalic EYES; Anicteric, Normal Conjunctiva NECK; supple, normal thyroid, RESPIRATORY: Diminished to auscultation CARDIOVASCULAR: Regular S1 S2, GI: soft, normoactive bowel sounds, : No Renal angle tenderness; EXTREMITIES: No edema, no clubbing, MUSCULOSKELETAL: no muscle wasting NEURO: Awake; no lateralizing signs. SKIN: No Rash PSYCH; Flat affect Assessment & Plan Assessment/Plan (1) Parainfluenza virus infection: PLAN: Plan Patient is a 79-year-old lady with underlying history of cerebral palsy who presented with worsening back pain and difficulty with ambulation. Patient tested positive for acute parainfluenza virus. Hospital stay complicated by alphahemolytic strep bacteremia. Admitted to regular nursing floor for further management 1. Acute parainfluenza virus infection ? Managed with supportive care 2. Streptococcus alactolyticus bacteremia ? Etiology not clear. Repeat blood cultures ordered patient started on broad- spectrum antibiotic therapy consult placed to ID ? 11/03/2024; patient was seen in consultation by Dr. Louis with ID recommended colonoscopy consult subsequently placed to Dr. Kwan ? 11/04/2024 scheduled to undergo colonoscopy -11/05/2024; colonoscopy performed the day prior did show - Diffuse mild mucosal changes were found in the sigmoid colon, in the d escending colon, at the hepatic flexure, in the ascending colon and in the cecum secondary to colitis. Biopsied. - Stool in the recto-sigmoid colon, in the sigmoid colon, in the descending colon and in the cecum. Fluid aspiration performed. Diverticulosis in the recto-sigmoid colon and in the sigmoid colon. ? 11/06/2024; plan is for patient to be discharged on cefdinir for 1 week on discharge 3. Intractable low back pain ?MRI of the lumbar spine showed multilevel degenerative changes in the thoracolumbar spine that most severe at L5-S1 and grade 1 antereolisthesis of L5 on S1. In view of patient bacteremia repeat MRI with contrast was ordered ? 11/06/2024; patient MRI demonstrated findings consistent with moderate/severe spinal stenosis and severe bilateral foraminal narrowing with degenerative joint disease. Consult was placed to back surgery Dr. Dumont 4. Physical deconditioning ? Requested for PT OT eval and social insurance adviser to assist with discharge planning ? 11/07/2024;Patient had a regular uneventful night awaiting transfer to a detention facility pending insurance approval 5. Acute urinary retention Patient was started on Flomax Lau catheter was placed Urinary retention 6. Hypophosphatemia ? corrected per protocol 7. Hypokalemia ? Corrected per protocol ? 11/04/2024 potassium this morning 2.5 additional replacement ? 11/05/2024; potassium up to 3.0 additional replacement given 8. Cerebral palsy ? Supportive care 9. Hypertension ? Blood pressure controlled, home medications continued with dose adjustment as needed 10. Anemia ? Secondary to chronic disorder monitoring H&H and transfuse if patient becomes symptomatic or hemoglobin falls below 7 11. DVT prophylaxis -Continue enoxaparin 40 daily Time spent in the patient's overall evaluation,decision-making process, review of diagnostic data, adjustment of management, discussion with other providers, nursing nursing and ancillary staff involved in patient's care documentation, 40 minutes Charges/Coding Visit Charges Inpatient E&M: 56020 Subs Hosp L2
[2024-11-07 08:03] LABS: Absolute Lymphocyte Count 1.54 X10^3/uL (0.83-4.51); Absolute Neutrophil Count 7.6 X10^3/uL (2.0-7.7); Eosinophil# 0.05 X10^3/uL; Eosinophils% 0.5 % (0-5); Hematocrit 33.2 % (37-47); Hemoglobin 10.9 g/dL (12.0-15.0); Lymphocyte # 1.54 X10^3/ul (0.83-4.51); Lymphocyte % 14.7 % (19-41); Mean Corp Hgb Conc 32.8 g/dL (32-36); Mean Corpuscular Hgb 30.9 pg (27.0-32.0); Mean Corpuscular Volume 94.1 fL (81-99); Mean Platelet Vol. 10.1 fl (6.2-12.0); Monocyte% 8.6 % (0-10); NRBC Flagged by Analyzer 0 % (0-5); Neutrophil # 7.63 X10^3/uL (2.7-7.7); Neutrophil % 72.6 % (47-70); Platelet Count 362 K/mm3 (150-450); RBC Distribution Width CV 14.3 % (11.6-14.6); RBC Distribution Width SD 49.1 fl (35.1-43.9); Red Blood Count 3.53 M/mm3 (4.2-5.4); White Blood Count 10.5 K/mm3 (4.4-11.0)
[2024-11-07 08:16] LABS: Anion Gap 6 (5-15); BUN 14 mg/dL (7-18); BUN/Creat Ratio 32.5 RATIO (10-20); Calcium,Total 8.9 mg/dL (8.5-10.1); Chloride 108 mmol/L (98-107); Creatinine, Serum 0.43 mg/dL (0.55-1.02); EST Glomerular Filtration Rate 151 mL/min (>60); Est Glom Filt Rate - Afr Amer 182 mL/min (>60); Estimated Creatinine Clearance 57.27 ml/min; Glucose 110 mg/dL (74-106); Potassium 4.4 mmol/L (3.5-5.1); Sodium Level 140 mmol/L (136-145)
[2024-11-07 08:50] VITALS: BP 134/85; PULSE 109; RESP 18; TEMP 36.8; O2SAT 99
[2024-11-07] MEDS: Enoxaparin 40 MG/0.4 ML Syringe SC (08:53)
[2024-11-07 08:54] VITALS: PULSE 109
[2024-11-07] MEDS: amLODIPine 5 MG Tablet PO (08:54)
[2024-11-07] MEDS: Metoprolol(XL)Succ 100 MG Tablet PO (08:54)
[2024-11-07] MEDS: Cholecalciferol (VIT D3) 25 MCG TABLET (1,000 UNITS) 50 MCG PO (08:54)
[2024-11-07] MEDS: Lisinopril 20 MG Tablet PO (08:54)
[2024-11-07] MEDS: Ceftriaxone 2 GM in 0.9% Normal Saline (50mL MB+) 50 ML IV (09:10)
[2024-11-07] MEDS: Potassium Chloride Oral Tablet 20 MEQ 40 MEQ PO (13:05)
[2024-11-07 14:19] VITALS: BP 131/66; PULSE 108; RESP 18; TEMP 36.1; O2SAT 96
[2024-11-07] MEDS: Tamsulosin HCl 0.4 MG Capsule PO (16:50)
[2024-11-07 23:52] VITALS: BP 146/79; PULSE 96; RESP 16; TEMP 37.1; O2SAT 97
[2024-11-07] MEDS: MELATONIN 3 MG TABLET PO (23:58)
[2024-11-07] MEDS: RisperiDONE 0.5 MG Tablet PO (23:59)
[2024-11-08 06:43] VITALS: BP 113/53; PULSE 99; RESP 18; TEMP 36.4; O2SAT 97
--- NOTE | 2024-11-08 07:24 | PN.HOSP_ITS ---
Reason for Visit Reason for Visit: Diagnoses Other viral infections of unspecified site (10/30/24) Unspecified streptococcus as the cause of diseases classified elsewhere (10/30/24) Elevated white blood cell count, unspecified (10/30/24) Hypokalemia (10/30/24) Cerebral palsy, unspecified (10/30/24) Other low back pain (10/30/24) Tachycardia, unspecified (10/30/24) Difficulty in walking, not elsewhere classified (10/30/24) Retention of urine, unspecified (10/30/24) Bacteremia (10/30/24) Subjective Subjective Patient had uneventful night. [facility]waiting [facility] Objective Data Objective Data Vital Signs: Vital Signs Temp Pulse Resp BP Pulse Ox O2 Del Method 97.6 F L 99 18 113/53 L 97 Room Air 11/08/24 06:43 11/08/24 06:43 11/08/24 06:43 11/08/24 06:43 11/08/24 06:43 11/08/24 06:43 Oxygen Delivery Method Room Air Weight: 63 kg Body Mass Index (BMI) 21.7 Intake & Output: Intake and Output for Last 24 Hours 11/06/24 11/07/24 11/08/24 23:59 23:59 23:59 Intake Total 250 / 250 50 / 150 100 / 100 Output Total 1000 / 1250 1050 / 1200 250 / 250 Balance -750 / -1000 -1000 / -1050 -150 / -150 Lab / Micro Data 11/08/24 06:49 11/07/24 07:10 Labs: Laboratory Results - last 24 hr 11/07/24 07:10: WBC 10.5, RBC 3.53 L, Hgb 10.9 L, Hct 33.2 L, MCV 94.1, MCH 30.9, MCHC 32.8, RDW Std Deviation 49.1 H, RDW Coeff of Roselyn 14.3, Plt Count 362, MPV 10.1, Immature Gran % (Auto) 2.600 H, Neut % (Auto) 72.6 H, Lymph % (Auto) 14.7 L, [place] % (Auto) 8.6, Eos % (Auto) 0.5, Baso % (Auto) 1.0, Absolute Neuts (auto) 7.6, Absolute Lymphs (auto) 1.54, Nucleated RBC % 0, Sodium 140, Potassium 4.4, Chloride 108 H, Carbon Dioxide 26.0, Anion Gap 6, BUN 14, C reatinine 0.43 L, Estim Creat Clear Calc 57.27, Est GFR (MDRD) Af Amer 182, Est GFR (MDRD) Non-Af 151, BUN/Creatinine Ratio 32.5 H, Glucose 110 H, Calcium 8.9 Micro: Microbiology 11/02/24 07:45 Blood Culture (Wb) - Right Wrist Blood Culture - Final No growth in 5 days. 11/02/24 07:50 Blood Culture (Wb) - Left Forearm Blood Culture - Final No growth in 5 days. 11/04/24 Unknown Stool Enteric Bacteriology - Final 11/04/24 Unknown Stool Clostridioides difficile (PCR) - Final 10/30/24 23:28 Blood Culture (Wb) - Left Wrist Blood Culture - Final Alpha hemolytic organism 10/30/24 23:40 Blood Culture (Wb) - Right Hand Bacteria Detection (PCR) - Final Strep not Strep pneumo 10/30/24 23:40 Blood Culture (Wb) - Right Hand Blood Culture - Final Streptococcus alactolyticus 10/30/24 23:20 Mucosa - Nasopharyngeal Respiratory Panel (PCR) - Final Parainfluenza 4 10/31/24 07:10 Nasal Secretion SARS-CoV-2 Antigen (Rapid) - Final Physical Exam Narrative GENERAL: cooperative HEENT: Atraumatic; normocephalic EYES; Anicteric, Normal Conjunctiva NECK; supple, normal thyroid, RESPIRATORY: Diminished to auscultation CARDIOVASCULAR: Regular S1 S2, GI: soft, normoactive bowel sounds, : No Renal angle tenderness; EXTREMITIES: No edema, no clubbing, MUSCULOSKELETAL: no muscle wasting NEURO: Awake; no lateralizing signs. SKIN: No Rash PSYCH; Flat affect Assessment & Plan Assessment/Plan (1) Parainfluenza virus infection: PLAN: Plan Patient is a 79-year-old lady with underlying history of cerebral palsy who presented with worsening back pain and difficulty with ambulation. Patient tested positive for acute parainfluenza virus. Hospital stay complicated by alphahemolytic strep bacteremia. Admitted to regular nursing floor for further management 1. Acute parainfluenza virus infection ? Managed with supportive care ?11/08/2024 patient symptoms resolved 2. Streptococcus alactolyticus bacteremia ? Etiology not clear. Repeat blood cultures ordered patient started on broad- spectrum antibiotic therapy consult placed to ID ? 11/03/2024; patient was seen in consultation by Dr. Louis with ID recommended colonoscopy consult subsequently placed to Dr. Kwan ? 11/04/2024 scheduled to undergo colonoscopy -11/05/2024; colonoscopy performed the day prior did show - Diffuse mild mucosal changes were found in the sigmoid colon, in the d escending colon, at the hepatic flexure, in the ascending colon and in the cecum secondary to colitis. Biopsied. - Stool in the recto-sigmoid colon, in the sigmoid colon, in the descending colon and in the cecum. Fluid aspiration performed. Diverticulosis in the recto-sigmoid colon and in the sigmoid colon. ? 11/06/2024; plan is for patient to be discharged on cefdinir for 1 week on discharge ? 11/08/2024 discontinue ceftriaxone started patient on p.o. cefdinir 3. Intractable low back pain ?MRI of the lumbar spine showed multilevel degenerative changes in the thoracolumbar spine that most severe at L5-S1 and grade 1 antereolisthesis of L5 on S1. In view of patient bacteremia repeat MRI with contrast was ordered ? 11/06/2024; patient MRI demonstrated findings consistent with moderate/severe spinal stenosis and severe bilateral foraminal narrowing with degenerative joint disease. Consult was placed to back surgery Dr. Dumont 4. Physical deconditioning ? Requested for PT OT eval and community mental health social worker to assist with discharge planning ? 11/07/2024;Patient had a regular uneventful night awaiting transfer [facility] a [facility] facility pending insurance approval 5. Acute urinary retention Patient was started on Flomax Lau catheter was placed Urinary retention 6. Hypophosphatemia ? corrected per protocol 7. Hypokalemia ? Corrected per protocol ? 11/04/2024 potassium this morning 2.5 additional replacement ? 11/05/2024; potassium up to 3.0 additional replacement given 8. Cerebral palsy ? Supportive care 9. Hypertension ? Blood pressure controlled, home medications continued with dose adjustment as needed 10. Anemia ? Secondary to chronic disorder monitoring H&H and transfuse if patient becomes symptomatic or hemoglobin falls below 7 11. DVT prophylaxis -Continue enoxaparin 40 daily Charges/Coding Visit Charges Inpatient E&M: 87375 Subs Hosp L2
[2024-11-08] MEDS: Acetaminophen 500 MG Tablet 1000 MG PO ×3 (07:34→23:12)
[2024-11-08 07:42] LABS: Absolute Lymphocyte Count 1.81 X10^3/uL (0.83-4.51); Absolute Neutrophil Count 6.7 X10^3/uL (2.0-7.7); Basophil# 0.06 X10^3/uL; Basophil% 0.6 % (0-1); Eosinophil# 0.08 X10^3/uL; Eosinophils% 0.8 % (0-5); Hematocrit 32.2 % (37-47); Hemoglobin 10.1 g/dL (12.0-15.0); Lymphocyte # 1.81 X10^3/ul (0.83-4.51); Lymphocyte % 18.7 % (19-41); Mean Corp Hgb Conc 31.4 g/dL (32-36); Mean Corpuscular Hgb 29.7 pg (27.0-32.0); Mean Corpuscular Volume 94.7 fL (81-99); Mean Platelet Vol. 9.8 fl (6.2-12.0); Monocyte# 0.84 X10^3/uL; Monocyte% 8.7 % (0-10); NRBC Flagged by Analyzer 0 % (0-5); Neutrophil % 69.2 % (47-70); Platelet Count 380 K/mm3 (150-450); RBC Distribution Width CV 14.2 % (11.6-14.6); RBC Distribution Width SD 48.5 fl (35.1-43.9); White Blood Count 9.7 K/mm3 (4.4-11.0)
[2024-11-08 08:41] LABS: Anion Gap 7 (5-15); BUN 15 mg/dL (7-18); Calcium,Total 8.6 mg/dL (8.5-10.1); Chloride 107 mmol/L (98-107); Creatinine, Serum 0.43 mg/dL (0.55-1.02); EST Glomerular Filtration Rate 152 mL/min (>60); Est Glom Filt Rate - Afr Amer 184 mL/min (>60); Estimated Creatinine Clearance 57.27 ml/min; Glucose 103 mg/dL (74-106); Potassium 4.3 mmol/L (3.5-5.1); Sodium Level 138 mmol/L (136-145)
[2024-11-08] MEDS: Cefdinir 300 MG Capsule PO ×2 (10:52→23:12)
[2024-11-08] MEDS: Enoxaparin 40 MG/0.4 ML Syringe SC (10:53)
[2024-11-08 10:54] VITALS: PULSE 98
[2024-11-08] MEDS: Cholecalciferol (VIT D3) 25 MCG TABLET (1,000 UNITS) 50 MCG PO (10:54)
[2024-11-08] MEDS: Metoprolol(XL)Succ 100 MG Tablet PO (10:54)
[2024-11-08] MEDS: Potassium Chloride Oral Tablet 20 MEQ 40 MEQ PO (10:54)
[2024-11-08] MEDS: Lisinopril 20 MG Tablet PO (10:54)
[2024-11-08] MEDS: amLODIPine 5 MG Tablet PO (10:55)
[2024-11-08] MEDS: oxyCODONE 5 MG Tablet PO (11:34)
[2024-11-08 11:37] VITALS: BP 114/60; PULSE 98; RESP 16; TEMP 37.1; O2SAT 99
[2024-11-08 16:06] VITALS: BP 99/69; PULSE 111; RESP 16; TEMP 36.9; O2SAT 99
[2024-11-08] MEDS: Tamsulosin HCl 0.4 MG Capsule PO (17:11)
[2024-11-08] MEDS: RisperiDONE 0.5 MG Tablet PO (23:12)
[2024-11-08 23:25] VITALS: BP 110/65; PULSE 88; RESP 18; TEMP 36.3; O2SAT 98
[2024-11-09 05:03] VITALS: BP 120/60; PULSE 102; RESP 16; TEMP 36.4; O2SAT 99
[2024-11-09] MEDS: Acetaminophen 500 MG Tablet 1000 MG PO ×3 (05:04→21:35)
[2024-11-09] MEDS: oxyCODONE 5 MG Tablet PO (05:36)
--- NOTE | 2024-11-09 09:32 | CASEMGMT ---
Updates sent to [facility] with note asking if they can check on status of precert. Elisabeth Daniels DC Planning Asst.
[2024-11-09 09:59] VITALS: BP 119/59; PULSE 79; RESP 19; TEMP 36.3; O2SAT 100
[2024-11-09 10:25] VITALS: BP 119/59; PULSE 79
[2024-11-09] MEDS: Cefdinir 300 MG Capsule PO ×2 (10:25→21:35)
[2024-11-09] MEDS: Enoxaparin 40 MG/0.4 ML Syringe SC (10:25)
[2024-11-09] MEDS: amLODIPine 5 MG Tablet PO (10:25)
[2024-11-09] MEDS: Metoprolol(XL)Succ 100 MG Tablet PO (10:25)
[2024-11-09] MEDS: Cholecalciferol (VIT D3) 25 MCG TABLET (1,000 UNITS) 50 MCG PO (10:26)
[2024-11-09] MEDS: Lisinopril 20 MG Tablet PO (10:26)
--- NOTE | 2024-11-09 11:35 | PCM.PN.HOSP ---
Subjective Subjective Doing well, no issues overnight Objective Data Objective Data Vital Signs: Vital Signs Temp Pulse Resp BP Pulse Ox O2 Del Method 97.3 F L 79 19 H 119/59 L 100 Room Air 11/09/24 09:59 11/09/24 10:25 11/09/24 09:59 11/09/24 10:25 11/09/24 09:59 11/09/24 09:59 Oxygen Delivery Method Room Air Weight: 138 lb 14.259 oz Body Mass Index (BMI) 21.7 Intake & Output: Intake and Output for Last 24 Hours 11/08/24 11/09/24 11/10/24 03:59 03:59 03:59 Intake Total 150 / 150 150 / 150 150 / 150 Output Total 950 / 950 1100 / 1100 200 / 200 Balance -800 / -800 -950 / -950 -50 / -50 Lab / Micro Data 11/08/24 06:49 11/08/24 06:49 Micro: Microbiology 11/02/24 07:45 Blood Culture (Wb) - Right Wrist Blood Culture - Final No growth in 5 days. 11/02/24 07:50 Blood Culture (Wb) - Left Forearm Blood Culture - Final No growth in 5 days. 11/04/24 Unknown Stool Enteric Bacteriology - Final 11/04/24 Unknown Stool Clostridioides difficile (PCR) - Final 10/30/24 23:28 Blood Culture (Wb) - Left Wrist Blood Culture - Final Alpha hemolytic organism 10/30/24 23:40 Blood Culture (Wb) - Right Hand Bacteria Detection (PCR) - Final Strep not Strep pneumo 10/30/24 23:40 Blood Culture (Wb) - Right Hand Blood Culture - Final Streptococcus alactolyticus 10/30/24 23:20 Mucosa - Nasopharyngeal Respiratory Panel (PCR) - Final Parainfluenza 4 10/31/24 07:10 Nasal Secretion SARS-CoV-2 Antigen (Rapid) - Final Physical Exam Narrative General: Alert, Oriented x3, Cooperative, No apparent distress HEENT: Atraumatic, PERRLA, EOMI, Normocephalic Oral: Moist Mucosa Neck: Supple, No JVD Lungs: Diminished, Normal air movement, No rhonchi, No wheeze, No rales Cardiovascular: Regular rate, Regular Rhythm, Normal S1, Normal S2, No murmurs Abdomen: Soft, Non Tender, Non-Distended, No Hepato-splenomegaly Extremities: No edema, Capillary Refill Less than 3 Seconds Skin: No rashes, No breakdown Musculoskeletal: No Tenderness to Palpation of Joints or Extremities Neurological: Chronic neurological changes from her CP at baseline, moves all extremities Psych/Mental Status: Normal Affect, Appropriate Assessment & Plan Assessment/Plan (1) Parainfluenza virus infection: PLAN: Plan 1. Acute parainfluenza virus infection ? Managed with supportive care ?11/08/2024 patient symptoms resolved 2. Streptococcus alactolyticus bacteremia ? Etiology not clear. Repeat blood cultures ordered patient started on broad-spectrum antibiotic therapy consult placed to ID ? 11/03/2024; patient was seen in consultation by Dr. Louis with ID recommended colonoscopy consult subsequently placed to Dr. Kwan ? 11/04/2024 scheduled to undergo colonoscopy -11/05/2024; colonoscopy performed the day prior did show - Diffuse mild mucosal changes were found in the sigmoid colon, in the descending colon, at the hepatic flexure, in the ascending colon and in the cecum secondary to colitis. Biopsied. - Stool in the recto-sigmoid colon, in the sigmoid colon, in the descending colon and in the cecum. Fluid aspiration performed. Diverticulosis in the recto-sigmoid colon and in the sigmoid colon. ? 11/06/2024; plan is for patient to be discharged on cefdinir for 1 week on discharge ? 11/08/2024 discontinue ceftriaxone started patient on p.o. cefdinir 11/09/2024: Continue cefdinir to complete 14 days of treatment 3. Intractable low back pain ?MRI of the lumbar spine showed multilevel degenerative changes in the thoracolumbar spine that most severe at L5-S1 and grade 1 antereolisthesis of L5 on S1. In view of patient bacteremia repeat MRI with contrast was ordered ? 11/06/2024; patient MRI demonstrated findings consistent with moderate/severe spinal stenosis and severe bilateral foraminal narrowing with degenerative joint disease. Consult was placed to back surgery Dr. Dumont 4. Physical deconditioning ? Requested for PT OT eval and marriage and family social worker to assist with discharge planning ? 11/07/2024;Patient had a regular uneventful night awaiting transfer to a retirement facility pending insurance approval 5. Acute urinary retention Patient was started on Flomax Lau catheter was placed Urinary retention 6. Hypophosphatemia ? corrected per protocol 7. Hypokalemia ? Corrected per protocol ? 11/04/2024 potassium this morning 2.5 additional replacement ? 11/05/2024; potassium up to 3.0 additional replacement given 8. Cerebral palsy ? Supportive care 9. Hypertension ? Blood pressure controlled, home medications continued with dose adjustment as needed 10. Anemia ? Secondary to chronic disorder monitoring H&H and transfuse if patient becomes symptomatic or hemoglobin falls below 7 DVT: Quinten Charges/Coding Visit Charges Inpatient E&M: 20072 Subs Hosp L2
[2024-11-09] MEDS: Potassium Chloride Oral Tablet 20 MEQ 40 MEQ PO (11:50)
[2024-11-09 14:29] VITALS: BP 97/54; PULSE 98; RESP 18; TEMP 37.2; O2SAT 96
[2024-11-09 17:24] VITALS: BP 102/49; PULSE 101; RESP 18; TEMP 36.6; O2SAT 99
[2024-11-09] MEDS: Tamsulosin HCl 0.4 MG Capsule PO (17:30)
[2024-11-09] MEDS: RisperiDONE 0.5 MG Tablet PO (21:35)
[2024-11-09] MEDS: MELATONIN 3 MG TABLET PO (21:35)
[2024-11-09 21:37] VITALS: BP 136/78; PULSE 117; RESP 18; TEMP 36.5; O2SAT 99
[2024-11-10] MEDS: NYSTATIN 500,000 UNIT/5 ML UDC 500000 UNIT PO ×4 (05:53→21:30)
[2024-11-10] MEDS: Acetaminophen 500 MG Tablet 1000 MG PO ×3 (05:53→21:33)
[2024-11-10 05:54] VITALS: BP 113/60; PULSE 86; RESP 16; TEMP 36.5; O2SAT 99
[2024-11-10 06:35] LABS: Absolute Lymphocyte Count 1.58 X10^3/uL (0.83-4.51); Absolute Neutrophil Count 6.9 X10^3/uL (2.0-7.7); Basophil# 0.08 X10^3/uL; Basophil% 0.8 % (0-1); Eosinophil# 0.14 X10^3/uL; Eosinophils% 1.5 % (0-5); Hematocrit 33.7 % (37-47); Hemoglobin 10.4 g/dL (12.0-15.0); Lymphocyte # 1.58 X10^3/ul (0.83-4.51); Lymphocyte % 16.4 % (19-41); Mean Corp Hgb Conc 30.9 g/dL (32-36); Mean Corpuscular Hgb 29.6 pg (27.0-32.0); Mean Platelet Vol. 9.7 fl (6.2-12.0); Monocyte# 0.82 X10^3/uL; Monocyte% 8.5 % (0-10); NRBC Flagged by Analyzer 0 % (0-5); Neutrophil # 6.86 X10^3/uL (2.7-7.7); Neutrophil % 71.4 % (47-70); Platelet Count 377 K/mm3 (150-450); RBC Distribution Width CV 14.5 % (11.6-14.6); RBC Distribution Width SD 49.8 fl (35.1-43.9); Red Blood Count 3.51 M/mm3 (4.2-5.4); White Blood Count 9.6 K/mm3 (4.4-11.0)
[2024-11-10 07:03] LABS: Anion Gap 5 (5-15); BUN 21 mg/dL (7-18); BUN/Creat Ratio 43.8 RATIO (10-20); Calcium,Total 8.9 mg/dL (8.5-10.1); Chloride 105 mmol/L (98-107); Creatinine, Serum 0.48 mg/dL (0.55-1.02); EST Glomerular Filtration Rate 133 mL/min (>60); Est Glom Filt Rate - Afr Amer 161 mL/min (>60); Estimated Creatinine Clearance 57.27 ml/min; Glucose 118 mg/dL (74-106); Potassium 4.2 mmol/L (3.5-5.1); Sodium Level 136 mmol/L (136-145)
--- NOTE | 2024-11-10 08:22 | CASEMGMT ---
Addendum entered by Elisabeth Daniels 11/10/24 09:11: Auth is good for 7 days. Elisabeth Daniels DC Planning Asst. Original Note: [facility] obtained auth to admit however, they do not have any open beds. They are hoping to have one tomorrow. SW updated. Elisabeth Daniels DC Planning Asst.
--- NOTE | 2024-11-10 10:02 | CASEMGMT ---
Social Work- SW called to update niece and sister that precert has been obtained, however facility does not have a bed until tomorrow. SW updated physician. SW remains available to follow. Plan: JUAN PABLO Cintron
[2024-11-10 10:14] VITALS: BP 118/61; PULSE 85; RESP 14; TEMP 36.7; O2SAT 99
--- NOTE | 2024-11-10 11:19 | PCM.PN.HOSP ---
Subjective Subjective Doing well, no issues overnight Objective Data Objective Data Vital Signs: Vital Signs Temp Pulse Resp BP Pulse Ox O2 Del Method 98.1 F 85 14 118/61 99 Room Air 11/10/24 10:14 11/10/24 10:14 11/10/24 10:14 11/10/24 10:14 11/10/24 10:14 11/10/24 10:14 Oxygen Delivery Method Room Air Weight: 138 lb 14.259 oz Body Mass Index (BMI) 21.7 Intake & Output: Intake and Output for Last 24 Hours 11/09/24 11/10/24 11/11/24 03:59 03:59 03:59 Intake Total 150 / 150 575 / 575 Output Total 1100 / 1100 800 / 800 Balance -950 / -950 -225 / -225 Lab / Micro Data 11/10/24 05:56 11/10/24 05:56 Labs: Laboratory Results - last 24 hr 11/10/24 05:56: WBC 9.6, RBC 3.51 L, Hgb 10.4 L, Hct 33.7 L, MCV 96.0, MCH 29.6, MCHC 30.9 L, RDW Std Deviation 49.8 H, RDW Coeff of Roselyn 14.5, Plt Count 377, MPV 9.7, Immature Gran % (Auto) 1.400 H, Neut % (Auto) 71.4 H, Lymph % (Auto) 16.4 L, [place] % (Auto) 8.5, Eos % (Auto) 1.5, Baso % (Auto) 0.8, Absolute Neuts (auto) 6.9, Absolute Lymphs (auto) 1.58, Nucleated RBC % 0, Sodium 136, Potassium 4.2, Chloride 105, Carbon Dioxide 26.0, Anion Gap 5, BUN 21 H, Creatinine 0.48 L, Estim Creat Clear Calc 57.27, Est GFR (MDRD) Af Amer 161, Est GFR (MDRD) Non-Af 133, BUN/Creatinine Ratio 43.8 H, Glucose 118 H, Calcium 8.9 Micro: Microbiology 11/02/24 07:45 Blood Culture (Wb) - Right Wrist Blood Culture - Final No growth in 5 days. 11/02/24 07:50 Blood Culture (Wb) - Left Forearm Blood Culture - Final No growth in 5 days. 11/04/24 Unknown Stool Enteric Bacteriology - Final 11/04/24 Unknown Stool Clostridioides difficile (PCR) - Final 10/30/24 23:28 Blood Culture (Wb) - Left Wrist Blood Culture - Final Alpha hemolytic organism 10/30/24 23:40 Blood Culture (Wb) - Right Hand Bacteria Detection (PCR) - Final Strep not Strep pneumo 10/30/24 23:40 Blood Culture (Wb) - Right Hand Blood Culture - Final Streptococcus alactolyticus 10/30/24 23:20 Mucosa - Nasopharyngeal Respiratory Panel (PCR) - Final Parainfluenza 4 10/31/24 07:10 Nasal Secretion SARS-CoV-2 Antigen (Rapid) - Final Physical Exam Narrative General: Alert, Oriented x3, Cooperative, No apparent distress HEENT: Atraumatic, PERRLA, EOMI, Normocephalic Oral: Moist Mucosa Neck: Supple, No JVD Lungs: Diminished, Normal air movement, No rhonchi, No wheeze, No rales Cardiovascular: Regular rate, Regular Rhythm, Normal S1, Normal S2, No murmurs Abdomen: Soft, Non Tender, Non-Distended, No Hepato-splenomegaly Extremities: No edema, Capillary Refill Less than 3 Seconds Skin: No rashes, No breakdown Musculoskeletal: No Tenderness to Palpation of Joints or Extremities Neurological: Chronic neurological changes from her CP at baseline, moves all extremities Psych/Mental Status: Normal Affect, Appropriate Assessment & Plan Assessment/Plan (1) Parainfluenza virus infection: PLAN: Plan 1. Acute parainfluenza virus infection ? Managed with supportive care ?11/08/2024 patient symptoms resolved 2. Streptococcus alactolyticus bacteremia ? Etiology not clear. Repeat blood cultures ordered patient started on broad-spectrum antibiotic therapy consult placed to ID ? 11/03/2024; patient was seen in consultation by Dr. Louis with ID recommended colonoscopy consult subsequently placed to Dr. Kwan ? 11/04/2024 scheduled to undergo colonoscopy -11/05/2024; colonoscopy performed the day prior did show - Diffuse mild mucosal changes were found in the sigmoid colon, in the descending colon, at the hepatic flexure, in the ascending colon and in the cecum secondary to colitis. Biopsied. - Stool in the recto-sigmoid colon, in the sigmoid colon, in the descending colon and in the cecum. Fluid aspiration performed. Diverticulosis in the recto-sigmoid colon and in the sigmoid colon. ? 11/06/2024; plan is for patient to be discharged on cefdinir for 1 week on discharge ? 11/08/2024 discontinue ceftriaxone started patient on p.o. cefdinir 11/09/2024: Continue cefdinir to complete 14 days of treatment 3. Intractable low back pain ?MRI of the lumbar spine showed multilevel degenerative changes in the thoracolumbar spine that most severe at L5-S1 and grade 1 antereolisthesis of L5 on S1. In view of patient bacteremia repeat MRI with contrast was ordered ? 11/06/2024; patient MRI demonstrated findings consistent with moderate/severe spinal stenosis and severe bilateral foraminal narrowing with degenerative joint disease. Consult was placed to back surgery Dr. Dumont 11/10/2024: Will plan for outpatient evaluation after SNF placement with physical therapy with spine surgery 4. Physical deconditioning ? Requested for PT OT eval and certified social workers in health care to assist with discharge planning ? 11/07/2024;Patient had a regular uneventful night awaiting transfer to a half-way facility pending insurance approval 5. Acute urinary retention Patient was started on Flomax Lau catheter was placed Urinary retention 11/10/2024: Lau is out, continue with Flomax on discharge 6. Hypophosphatemia ? corrected per protocol 7. Hypokalemia ? Corrected per protocol ? 11/04/2024 potassium this morning 2.5 additional replacement ? 11/05/2024; potassium up to 3.0 additional replacement given 8. Cerebral palsy ? Supportive care 9. Hypertension ? Blood pressure controlled, home medications continued with dose adjustment as needed 10. Anemia ? Secondary to chronic disorder monitoring H&H and transfuse if patient becomes symptomatic or hemoglobin falls below 7 DVT: Lovenox Charges/Coding Visit Charges Inpatient E&M: 55841 Subs Hosp L2
[2024-11-10] MEDS: Cholecalciferol (VIT D3) 25 MCG TABLET (1,000 UNITS) 50 MCG PO (12:25)
[2024-11-10] MEDS: Polyethylene Glycol 3350 17 GM PACKET PO (12:25)
[2024-11-10] MEDS: Senna/Docusate Sodium 1 Tablet 2 TABLET PO ×2 (12:25→21:30)
[2024-11-10] MEDS: amLODIPine 5 MG Tablet PO (12:25)
[2024-11-10 12:26] VITALS: BP 118/61; PULSE 85
[2024-11-10] MEDS: Metoprolol(XL)Succ 100 MG Tablet PO (12:26)
[2024-11-10] MEDS: Cefdinir 300 MG Capsule PO ×2 (12:26→21:30)
[2024-11-10] MEDS: Potassium Chloride Oral Tablet 20 MEQ 40 MEQ PO (12:27)
[2024-11-10] MEDS: Enoxaparin 40 MG/0.4 ML Syringe SC (12:28)
[2024-11-10] MEDS: Lisinopril 20 MG Tablet PO (12:40)
[2024-11-10] MEDS: Tamsulosin HCl 0.4 MG Capsule PO (17:57)
[2024-11-10 18:20] VITALS: BP 114/55; PULSE 68; RESP 16; TEMP 36.3; O2SAT 98
[2024-11-10 21:16] VITALS: BP 119/53; PULSE 98; RESP 16; TEMP 36.5; O2SAT 100
[2024-11-10] MEDS: RisperiDONE 0.5 MG Tablet PO (21:30)
[2024-11-10] MEDS: MELATONIN 3 MG TABLET PO (21:30)
[2024-11-11] VITALS (8 sets, daily range): BP systolic 116–141; BP diastolic 43–81; PULSE 88–103; RESP 12–18; TEMP 36.1–37.2; O2SAT 94–100
[2024-11-11] MEDS: Acetaminophen 500 MG Tablet 1000 MG PO ×2 (05:36→14:29)
--- NOTE | 2024-11-11 09:36 | PCM.TXEXTCAR ---
Diet Diet Order/Speech Therapy: 11/05/24 10:15 Diet: Regular - General Food consistency:: Mechanical (Minced/Moist) Liquid Consistency:: [place]/Mildly Thick Type of Dietary Supplement:: Ensure Plus High Protein Diet Comments: TOTAL FEED, SMALL SIPS, no straws, meds crushed in .Fortified pudding TID Routine Orders/Code Status Routine Lab Work: CBC and BMP Code Status: Full Code DC O2, CPAP, BIPAP needs Home O2 Discharge instructions: No Wound(s) Right lower leg: Wound Type: scratches Therapies Physical Therapy: Eval and Treat Occupational Therapy: Eval and Treat Problem/Diagnosis (1) Parainfluenza virus infection: Status: Acute Code(s): B34.8 - Other viral infections of unspecified site Plan 1. Acute parainfluenza virus infection ? Managed with supportive care ?11/08/2024 patient symptoms resolved 2. Streptococcus alactolyticus bacteremia ? Etiology not clear. Repeat blood cultures ordered patient started on broad-spectrum antibiotic therapy consult placed to ID ? 11/03/2024; patient was seen in consultation by Dr. Louis with ID recommended colonoscopy consult subsequently placed to Dr. Kwan ? 11/04/2024 scheduled to undergo colonoscopy -11/05/2024; colonoscopy performed the day prior did show - Diffuse mild mucosal changes were found in the sigmoid colon, in the descending colon, at the hepatic flexure, in the ascending colon and in the cecum secondary to colitis. Biopsied. - Stool in the recto-sigmoid colon, in the sigmoid colon, in the descending colon and in the cecum. Fluid aspiration performed. Diverticulosis in the recto-sigmoid colon and in the sigmoid colon. ? 11/06/2024; plan is for patient to be discharged on cefdinir for 1 week on discharge ? 11/08/2024 discontinue ceftriaxone started patient on p.o. cefdinir 11/09/2024: Continue cefdinir to complete 14 days of treatment 3. Intractable low back pain ?MRI of the lumbar spine showed multilevel degenerative changes in the thoracolumbar spine that most severe at L5-S1 and grade 1 antereolisthesis of L5 on S1. In view of patient bacteremia repeat MRI with contrast was ordered ? 11/06/2024; patient MRI demonstrated findings consistent with moderate/severe spinal stenosis and severe bilateral foraminal narrowing with degenerative joint disease. Consult was placed to back surgery Dr. Dumont 11/10/2024: Will plan for outpatient evaluation after SNF placement with physical therapy with spine surgery 4. Physical deconditioning ? Requested for PT OT eval and geriatric social work professor to assist with discharge planning ? 11/07/2024;Patient had a regular uneventful night awaiting transfer to a shelter facility pending insurance approval 5. Acute urinary retention Patient was started on Flomax Lau catheter was placed Urinary retention 11/10/2024: Lau is out, continue with Flomax on discharge 6. Hypophosphatemia ? corrected per protocol 7. Hypokalemia ? Corrected per protocol ? 11/04/2024 potassium this morning 2.5 additional replacement ? 11/05/2024; potassium up to 3.0 additional replacement given 8. Cerebral palsy ? Supportive care 9. Hypertension ? Blood pressure controlled, home medications continued with dose adjustment as needed 10. Anemia ? Secondary to chronic disorder monitoring H&H and transfuse if patient becomes symptomatic or hemoglobin falls below 7 DVT: Lovenox Allergies/Procedures Done in Hospital Allergies amantadine (From Symmetrel) Adverse Reaction (Severe, Verified 10/30/24 11:00) Unknown amoxicillin (From Augmentin) Adverse Reaction (Severe, Verified 10/30/24 11:00) Unknown clavulanic acid (From Augmentin) Adverse Reaction (Severe, Verified 10/30/24 11:00) Unknown erythromycin base Adverse Reaction (Severe, Verified 10/30/24 11:00) Unknown lorazepam (From Ativan) Adverse Reaction (Verified 10/30/24 17:39) restless Procedures: 2-D Echocardiogram and Colonoscopy Type of Care/Length of Stay Estimated LOS: Convalescent Care Less Than 30 days Type of Care Needed: Skilled Rehab Potential: Fair Prognosis: Fair Additional Orders/Day of Discharge Day of Discharge: 11/11/24 Dietary and Speech Recommendations Dietitian Recommendations/Changes: Continue regular diet per HOLIDAY DETECTOR OPERATOR consistency/texture recommendations. Continue 120ml ensure plus high protein TID with medpass. Will order fortified pudding TID with meals. Will order a new weight for pt d/t no new weight since 10/30/24. Reviewed and approved by Jaclyn Pena RDN, LD. Discharge Plan Admission Admit Date/Time: 10/30/24 15:56 Attending Provider: Bautista Lizarraga Primary Care Provider: Care Physician,No Primary Consulting Providers: Shiv Andrews; Marleni Menendez; Francisco Art; Jayjay Carmichael; Zachary Madison Discharge Orders/Prescriptions Prescriptions: New sennosides-docusate sodium [Stimulant Laxative Plus] 8.6-50 mg Tablet 2 tab PO BID Qty: 0 0RF tamsulosin 0.4 mg Capsule 0.4 mg PO DAILY@1730 Qty: 0 0RF cefdinir 300 mg Capsule 300 mg PO Q12 4 Days Qty: 0 0RF risperidone 0.5 mg Tablet 0.5 mg PO QHS Qty: 0 0RF Continued flaxseed oil 1,000 mg capsule 1,000 mg PO QDAY garlic 200 mg tablet 200 mg PO QDAY apple cider vinegar 600 mg capsule 600 mg PO QDAY glucosamine HCl 500 mg tablet 500 mg PO QDAY red yeast rice 600 mg capsule 600 mg PO QDAY cholecalciferol (vitamin D3) 25 mcg (1,000 unit) tablet 2,000 unit PO QDAY metoprolol succinate 50 mg tablet extended release 24 hr 50 mg PO DAILY Qty: 90 3RF lisinopril 20 mg tablet 20 mg PO QDAY Qty: 90 3RF amlodipine 5 mg tablet 5 mg PO DAILY Qty: 90 3RF Referrals / Follow Up: Care Physician,No Primary [Primary Care Provider] - Disposition Disposition (needs filled in before D/C Order can be placed): Long Term Facility
[2024-11-11] MEDS: Cholecalciferol (VIT D3) 25 MCG TABLET (1,000 UNITS) 50 MCG PO (09:41)
[2024-11-11] MEDS: Cefdinir 300 MG Capsule PO (09:41)
[2024-11-11] MEDS: Metoprolol(XL)Succ 100 MG Tablet PO (09:41)
[2024-11-11] MEDS: Polyethylene Glycol 3350 17 GM PACKET PO (09:41)
[2024-11-11] MEDS: Enoxaparin 40 MG/0.4 ML Syringe SC (09:41)
[2024-11-11] MEDS: Lisinopril 20 MG Tablet PO (09:41)
[2024-11-11] MEDS: amLODIPine 5 MG Tablet PO (09:41)
[2024-11-11] MEDS: NYSTATIN 500,000 UNIT/5 ML UDC 500000 UNIT PO ×3 (09:41→17:29)
[2024-11-11] MEDS: Senna/Docusate Sodium 1 Tablet 2 TABLET PO (09:49)
--- NOTE | 2024-11-11 10:51 | CASEMGMT ---
Social Work- SW collaborating with DCA to determine if facility has a bed for pt to discharge today. Physician updated. SW remains available to follow. Plan: [facility]; pending bed availability JUAN PABLO Gaytan
[2024-11-11] MEDS: Potassium Chloride Oral Tablet 20 MEQ 40 MEQ PO (11:08)
--- NOTE | 2024-11-11 12:50 | CASEMGMT ---
Email sent and phone call placed to Loreta, teller coordinator @ [facility]. Loreta states that she is waiting for [facility] to confirm bed availability. SW updated. Elisabeth Daniels DC Planning Asst
--- NOTE | 2024-11-11 15:15 | CASEMGMT ---
Social Work Precert has been obtained.? Physician updated and pt is ready for discharge today.? [facility] notified of discharge. Final discharge arrangements and notification to patient/family as per discharge home planning consultant salesperson.? Disposition:[facility], skilled level of care under convalescent stay. JUAN PABLO Gaytan
--- NOTE | 2024-11-11 15:41 | PCM.DC.SUM ---
Providers Date of Admission: 10/30/24 Primary Care Physician: Kate [facility] Care Phys Consultations 11/01/24 08:33 Consult: Infectious Disease Routine Consulting Provider: Francisco Art Reason for Consult: GP bacteremia EMERGENT Consult: No MD Notified: Yes Date Notified: 11/01/24 Time Notified: 08:33 Method of Notification: Text 11/03/24 07:59 Consult: Gastroenterology Routine Consulting Provider: [facility] Reason for Consult: Strep bovis bacteremia; colonoscopy request EMERGENT Consult: No Notified: Yes Date Notified: 11/03/24 Time Notified: 08:00 Method of Notification: Text 11/06/24 08:57 Consult: Orthopedics Routine Consulting Provider: Jayjay Carmichael Reason for Consult: back pain.; Severe spinal stenosis EMERGENT Consult: No MD Notified: Yes Date Notified: 11/06/24 Time Notified: 11:27 Method of Notification: Text Reason For Visit: INTRACTABLE LOW BACK PAIN W/ FALLS, URINARY RETENT Diagnosis Discharge Diagnosis (1) Parainfluenza virus infection: Status: Acute Code(s): B34.8 - Other viral infections of unspecified site Medications at Discharge Home Medications apple cider vinegar 600 mg capsule 600 mg PO QDAY 01/16/18 flaxseed oil 1,000 mg capsule 1,000 mg PO QDAY 01/16/18 garlic 200 mg tablet 200 mg PO QDAY 01/16/18 glucosamine HCl 500 mg tablet 500 mg PO QDAY 01/16/18 red yeast rice 600 mg capsule 600 mg PO QDAY 01/16/18 cholecalciferol (vitamin D3) 25 mcg (1,000 unit) tablet 2,000 unit PO QDAY 07/25/23 metoprolol succinate 50 mg tablet,extended release 24 hr 50 mg PO DAILY #90 TABLETS 01/22/24 lisinopril 20 mg tablet 20 mg PO QDAY #90 tabs 03/02/24 amlodipine 5 mg tablet 5 mg PO DAILY #90 tabs 10/05/24 cefdinir 300 mg capsule 300 mg PO Q12 4 days #0 caps 11/11/24 risperidone 0.5 mg tablet 0.5 mg PO QHS #0 tabs 11/11/24 sennosides 8.6 mg-docusate sodium 50 mg tablet (Stimulant Laxative Plus) 2 tab PO BID #0 tabs 11/11/24 tamsulosin 0.4 mg capsule 0.4 mg PO DAILY@1730 #0 caps 11/11/24 Hospital Course Operations None Procedures Colonoscopy Summary of Care Provided Minutes Spent on Discharge: 32 Hospital Course: Per HPI: SOUMYA MCFARLANE, is a 79 F who presented to [facility] ED on 10/30/2024 with worsening low back pain and difficulty with ambulation. Patient has history of cerebral palsy but is high functioning, lives at home by herself. Does have family that live close by. Patient had a mechanical fall in the kitchen about 2 weeks ago and then had another fall about 1 week ago where she landed on her buttocks. Since then she has had worsening low back pain and difficulty with ambulation. Today she had too much pain and lower extremity weakness to get out of bed, so family brought her in for evaluation. In the ED she was tachycardic to the 110s but otherwise hemodynamically stable on room air. Labs notable for WBC count 22, sodium 133. CT chest abdomen pelvis showed distended urinary bladder but otherwise no chest or abdominal abnormalities; also showed loss of height of L3 and L5 vertebrae and anterolisthesis of L5 on S1. Lau was placed in the ED with 1200 cc of urine removed. Patient has no prior history of urinary retention. Denies bowel incontinence. Given these findings, hospitalist was contacted for admission. I saw the patient at bedside in the ED, niece was present. Patient was laying back in bed and was alert and oriented x 3 but somewhat sedated. She notably had been given doses of IV fentanyl and Ativan prior to my encounter with her. She denied any low back pain currently at rest. However, she was not able to raise her legs off the table and had significant pain with trying to hold them up after I passively raised them. No upper extremity weakness noted. Patient denied any fevers or chills. No other acute concerns currently. Will be admitted for further management. Hospital Course: 1. Acute parainfluenza virus infection ? Managed with supportive care ?11/08/2024 patient symptoms resolved 2. Streptococcus alactolyticus bacteremia ? Etiology not clear. Repeat blood cultures ordered patient started on broad-spectrum antibiotic therapy consult placed to ID ? 11/03/2024; patient was seen in consultation by Dr. Louis with ID recommended colonoscopy consult subsequently placed to Dr. Friend ? 11/04/2024 scheduled to undergo colonoscopy -11/05/2024; colonoscopy performed the day prior did show - Diffuse mild mucosal changes were found in the sigmoid colon, in the descending colon, at the hepatic flexure, in the ascending colon and in the cecum secondary to colitis. Biopsied. - Stool in the recto-sigmoid colon, in the sigmoid colon, in the descending colon and in the cecum. Fluid aspiration performed. Diverticulosis in the recto-sigmoid colon and in the sigmoid colon. ? 11/06/2024; plan is for patient to be discharged on cefdinir for 1 week on discharge ? 11/08/2024 discontinue ceftriaxone started patient on p.o. cefdinir 11/09/2024: Continue cefdinir to complete 14 days of treatment 11/11/2024: Continue with 4 more days of cefdinir. I discussed with her the plan for discharge today she expressed understanding respect to going to the half-way and would like to go today. 3. Intractable low back pain ?MRI of the lumbar spine showed multilevel degenerative changes in the thoracolumbar spine that most severe at L5-S1 and grade 1 antereolisthesis of L5 on S1. In view of patient bacteremia repeat MRI with contrast was ordered ? 11/06/2024; patient MRI demonstrated findings consistent with moderate/severe spinal stenosis and severe bilateral foraminal narrowing with degenerative joint disease. Consult was placed to back surgery Dr. Dumont 11/10/2024: Will plan for outpatient evaluation after SNF placement with physical therapy with spine surgery 4. Physical deconditioning ? Requested for PT OT eval and social service technician to assist with discharge planning ? 11/07/2024;Patient had a regular uneventful night awaiting transfer to a correction facility pending insurance approval 5. Acute urinary retention Patient was started on Flomax Lau catheter was placed Urinary retention 11/11/2024: Lau is out, continue with Flomax on discharge. After removing the Lau she is only about 43 cc on bladder scan. If she does suffer from urinary retention at the half-way can reinsert Lau and have her follow-up with urology as an outpatient 6. Hypophosphatemia ? corrected per protocol 7. Hypokalemia ? Corrected per protocol ? 11/04/2024 potassium this morning 2.5 additional replacement ? 11/05/2024; potassium up to 3.0 additional replacement given 8. Cerebral palsy ? Supportive care 9. Hypertension ? Blood pressure controlled, home medications continued with dose adjustment as needed 10. Anemia ? Secondary to chronic disorder monitoring H&H and transfuse if patient becomes symptomatic or hemoglobin falls below 7 Physical Exam Narrative General: Alert, Oriented x3, Cooperative, No apparent distress HEENT: Atraumatic, PERRLA, EOMI, Normocephalic Oral: Moist Mucosa Neck: Supple, No JVD Lungs: Diminished, Normal air movement, No rhonchi, No wheeze, No rales Cardiovascular: Regular rate, Regular Rhythm, Normal S1, Normal S2, No murmurs Abdomen: Soft, Non Tender, Non-Distended, No Hepato-splenomegaly Extremities: No edema, Capillary Refill Less than 3 Seconds Skin: No rashes, No breakdown Musculoskeletal: No Tenderness to Palpation of Joints or Extremities Neurological: Chronic neurological changes from her CP at baseline, moves all extremities Psych/Mental Status: Normal Affect, Appropriate Weight / BMI Weight Weight: 138 lb 14.259 oz Body Mass Index (BMI) 21.7 ABG / Lab / Microbiology Data 11/10/24 05:56 11/10/24 05:56 Microbiology: Microbiology 11/02/24 07:45 Blood Culture (Wb) - Right Wrist Blood Culture - Final No growth in 5 days. 11/02/24 07:50 Blood Culture (Wb) - Left Forearm Blood Culture - Final No growth in 5 days. 11/04/24 Unknown Stool Enteric Bacteriology - Final 11/04/24 Unknown Stool Clostridioides difficile (PCR) - Final 10/30/24 23:28 Blood Culture (Wb) - Left Wrist Blood Culture - Final Alpha hemolytic organism 10/30/24 23:40 Blood Culture (Wb) - Right Hand Bacteria Detection (PCR) - Final Strep not Strep pneumo 10/30/24 23:40 Blood Culture (Wb) - Right Hand Blood Culture - Final Streptococcus alactolyticus 10/30/24 23:20 Mucosa - Nasopharyngeal Respiratory Panel (PCR) - Final Parainfluenza 4 10/31/24 07:10 Nasal Secretion SARS-CoV-2 Antigen (Rapid) - Final D/C Instructions DC O2, CPAP, BIPAP Needs Home O2 Discharge instructions: No Meaningful Use Info Meaningful Use Meaningful Use Diagnoses (Choose all that apply): None applicable Ischemic Stroke Statin Dosing Therapy Reference: STATIN DOSE THERAPY REFERENCE: * Patients > 75 years receive moderate or high dose statin therapy. * Patients 75 years or YOUNGER should receive HIGH intensity statin dose unless contraindicated. You will be required to document reason for non-treatment if statin daily dose does not meet guidelines. HIGH DOSE STATIN THERAPY DAILY Atorvastatin > than or = to 40 mg Rosuvastatin > than or = to 20 mg Amlodipine + Atorvastatin > than or = to 2.5/40 mg Ezetimibe + Simvastatin 10/80 mg Simvastatin 80mg Discharge Plan Admission Admit Date/Time: 10/30/24 15:56 Attending Provider: Bautista Lizarraga Primary Care Provider: Care Physician,No Primary Consulting Providers: Shiv Andrews; Marleni Menendez; Francisco Art; Jayjay Carmichael; Zachary Madison Discharge Orders/Prescriptions Prescriptions: New sennosides-docusate sodium [Stimulant Laxative Plus] 8.6-50 mg Tablet 2 tab PO BID Qty: 0 0RF tamsulosin 0.4 mg Capsule 0.4 mg PO DAILY@1730 Qty: 0 0RF cefdinir 300 mg Capsule 300 mg PO Q12 4 Days Qty: 0 0RF risperidone 0.5 mg Tablet 0.5 mg PO QHS Qty: 0 0RF Continued flaxseed oil 1,000 mg capsule 1,000 mg PO QDAY garlic 200 mg tablet 200 mg PO QDAY apple cider vinegar 600 mg capsule 600 mg PO QDAY glucosamine HCl 500 mg tablet 500 mg PO QDAY red yeast rice 600 mg capsule 600 mg PO QDAY cholecalciferol (vitamin D3) 25 mcg (1,000 unit) tablet 2,000 unit PO QDAY metoprolol succinate 50 mg tablet extended release 24 hr 50 mg PO DAILY Qty: 90 3RF lisinopril 20 mg tablet 20 mg PO QDAY Qty: 90 3RF amlodipine 5 mg tablet 5 mg PO DAILY Qty: 90 3RF Referrals / Follow Up: Care Physician,No Primary [Primary Care Provider] - Disposition Disposition (needs filled in before D/C Order can be placed): Snf Facility Charges/Coding Visit Charges Inpatient E&M: 33393 Disch Hosp >30min
--- NOTE | 2024-11-11 15:56 | CASEMGMT ---
Discharge orders and signed med list sent to Loreta via email @ [facility]. Physicians will transport pt at 6:30p. Nursing, SW, pt, and her niece (Kadi) updated. Elisabeth Daniels DC Planning Asst.
--- NOTE | 2024-11-11 15:59 | NURSING ---
All documentation by assisted living nursing director Samantha Espinoza reviewed by skilled nursing facility counselor Jojo BARRIGAN, RN.
[2024-11-11] MEDS: Tamsulosin HCl 0.4 MG Capsule PO (17:29)
== END 2024-11-11 20:05 | disposition skilled nursing facility (03) | DRG 872 ==
LOC: ED 16:02 → MS3 17:09
PROVIDERS: Family Medicine; Internal Medicine; Internal Medicine Gastroenterology; Admitting Provider Hospitalist; Emergency Provider Emergency Medicine; Visit Provider Family Medicine
PROC: 0DJD8ZZ Inspection of Lower Intestinal Tract, Via Natural or Artificial Opening Endoscopic (ICD-10-PCS; CPT 45378; principal; 2024-11-04 12:40)
DX: R78.81 Bacteremia (principal); B95.0 Streptococcus, group A, as the cause of diseases classified elsewhere; G80.9 Cerebral palsy, unspecified; I10 Essential (primary) hypertension; E87.6 Hypokalemia; K02.9 Dental caries, unspecified; E78.5 Hyperlipidemia, unspecified; D72.829 Elevated white blood cell count, unspecified; R26.2 Difficulty in walking, not elsewhere classified; K52.9 Noninfective gastroenteritis and colitis, unspecified; K57.30 Diverticulosis of large intestine without perforation or abscess without bleeding; M48.061 Spinal stenosis, lumbar region without neurogenic claudication; M46.46 Discitis, unspecified, lumbar region; K59.00 Constipation, unspecified; B96.89 Other specified bacterial agents as the cause of diseases classified elsewhere; B97.89 Other viral agents as the cause of diseases classified elsewhere; R33.9 Retention of urine, unspecified; Z90.710 Acquired absence of both cervix and uterus; Z79.01 Long term (current) use of anticoagulants; R53.81 Other malaise; N32.89 Other specified disorders of bladder; Z79.82 Long term (current) use of aspirin; B95.4 Other streptococcus as the cause of diseases classified elsewhere
CPT/HCPCS: 36415; 36600; 70110; 71250; 72148; 72158; 74018; 74176; 74177; 74230; 80048; 80053; 80202; 80307; 81001; 82550; 82607; 82746; 82803; 83605; 83735; 84100; 84443; 84484; 85025; 85027; 85652; 86140; 87040; 87077; 87149; 87186; 87426; 87493; 87506; 87633; 88305; 92526; 92610; 92611; 93005; 93306; 94668; 97162; 97166; 97530; 97535; 97803; 99285; A9575; Q9967; A4216; J0696

== ENCOUNTER 2024-12-04 11:39 | Inpatient (IN) | payer MEDICARE, SELFPAY ==
[2024-12-04] VITALS (17 sets, daily range): BP systolic 101–136; BP diastolic 47–79; PULSE 74–137; RESP 15–25; TEMP 36.2–38.7; O2SAT 90–99; BMI 24.8; BMI 24.0
--- NOTE | 2024-12-04 11:53 | EX.ED.DYSGE1 ---
HPI History of Present Illness Chief Complaint: Shortness of Breath Informant: EMS and SNF Narrative Narrative: Patient 79-year-old female presenting from long-term facility with history of stroke causing tachycardia as well as recent hospitalization for parainfluenza virus, falls, Streptococcus alactolyticus bacteremia (treated with cefdinir), intractable back pain and and urinary retention (initially treated with Lau catheter but was removed at time of discharge) presenting for vomiting and altered mental status as well as fever. Patient is on Eliquis per review of her MAR, but is unclear why. She reportedly threw up at 1010 and 1045 this morning. They are concerned that she aspirated. She is no to be febrile per EMS. Is unclear how long the symptoms been going on. Per nursing facility report there is influenza and norovirus going around the facility. No other history obtained. Patient is minimally verbal at this time. Family arrived to the bedside. They state that since her discharge to the hospital she was also diagnosed with hyponatremia and PE/DVT for which she was started on Eliquis for. [facility] Medical History Anxiety Depression Osteoporosis Non-smoker Cerebral palsy Cataract Palpitations Elevated blood pressure reading without diagnosis of hypertension Essential (primary) hypertension Home Medications ?Medication ?Instructions ?Recorded ?Last Taken ?Type garlic 200 mg tablet 200 mg PO DAILY 01/16/18 Unknown History cholecalciferol (vitamin D3) 25 1,000 unit PO DAILY 07/25/23 Unknown History mcg (1,000 unit) tablet metoprolol succinate 50 mg 50 mg PO DAILY #90 TABLETS 01/22/24 Unknown Rx tablet,extended release 24 hr amlodipine 5 mg tablet 5 mg PO DAILY #90 tabs 10/05/24 Unknown Rx risperidone 0.5 mg tablet 0.5 mg PO QHS #0 tabs 11/11/24 Unknown Rx tamsulosin 0.4 mg capsule 0.4 mg PO DAILY@1730 #0 caps 11/11/24 Unknown Rx apixaban 5 mg tablet (Eliquis) 5 mg PO BID 12/04/24 Unknown History ferrous sulfate 325 mg (65 mg 325 mg PO BID 12/04/24 Unknown History iron) tablet (Feosol) lisinopril 20 mg tablet 20 mg PO DAILY 12/04/24 Unknown History pregabalin 50 mg capsule (Lyrica) 50 mg PO TID 12/04/24 Unknown History sennosides 8.6 mg-docusate sodium 1 tab-cap PO BID 12/04/24 Unknown History 50 mg tablet (Stimulant Laxative Plus) Allergy/AdvReac Type Severity Reaction Status Date / Time amantadine (From Symmetrel) AdvReac Severe Unknown Verified 10/30/24 11:00 amoxicillin (From Augmentin) AdvReac Severe Unknown Verified 10/30/24 11:00 clavulanic acid (From AdvReac Severe Unknown Verified 10/30/24 11:00 Augmentin) erythromycin base AdvReac Severe Unknown Verified 10/30/24 11:00 lorazepam (From Ativan) AdvReac restless Verified 10/30/24 17:39 Family History Father Diabetes Hypertension Mother alzhemier Osteoporosis Surgical History History of tonsillectomy History of hysterectomy History of hip replacement Social History Smoking Status: Never smoker alcohol intake: never substance use type: does not use caffeine: Yes Type: coffee Number of servings: 3 what type of physical activity do you participate in: none seatbelt use: always do you feel safe at home: Yes ROS ROS ED Review of Systems ROS Unobtainable: due to mental status Constitutional Constitutional ED: Reports fever(s) Gastrointestinal Gastrointestinal: Reports vomiting EXAM Physical Exam Const Vital Signs: 12/04/24 11:41 12/04/24 11:41 12/04/24 11:50 Temperature 101.0 F H Temperature Source Temporal Pulse Rate 123 H 120 H Respiratory Rate 22 H 21 H Respiratory Effort Respiratory Depth Respiratory Pattern Blood Pressure 136/56 H Blood Pressure Mean 82 Pulse Ox 90 93 Oxygen Delivery Method Nasal Cannula Airvo Oxygen Flow Rate (L/min) 4 50 Fraction of Inspired Oxygen (FIO2) 53 55 12/04/24 11:51 12/04/24 11:51 12/04/24 12:10 Temperature 101.0 F H Temperature Source Temporal Pulse Rate 119 H Respiratory Rate 22 H Respiratory Effort Labored Nasal Flaring Respiratory Depth Shallow Respiratory Pattern Tachypnea Blood Pressure 136/56 H Blood Pressure Mean 82 Pulse Ox 97 97 Oxygen Delivery Method Airvo Airvo Airvo Oxygen Flow Rate (L/min) 50 50 50 Fraction of Inspired Oxygen (FIO2) 55 55 55 12/04/24 12:20 12/04/24 14:00 Temperature Temperature Source Pulse Rate 117 H 74 Respiratory Rate 22 H 16 Respiratory Effort Respiratory Depth Respiratory Pattern Blood Pressure 109/49 L Blood Pressure Mean 69 Pulse Ox 95 99 Oxygen Delivery Method Oxygen Flow Rate (L/min) Fraction of Inspired Oxygen (FIO2) 47 Constitutional Narrative: Chronically ill-appearing General Appearance ED: NAD and pallor HEENT Reports dry mucous membranes HEENT Narrative: Green bilious material dried in the mouth Mouth ED: Yes dry mucous membranes Mouth: dry mucous membranes Eyes PERRL and EOMs intact bilaterally Neck supple Chest Wall inspection of chest normal and palpation of chest normal Resp Resp Narrative: Rattles of the chest with very coarse breath sounds. Tachypneic. Cardio no murmurs Rate: tachycardic GI normal to inspection, nondistended, normoactive bowel sounds Auscultation: hypoactive bowel sounds Palpation: Negative for tender or guarding Extremity Extremity Narrative: Chronic appearing contracture to the right lower extremity. Neuro Neuro Narrative: No focal deficits appreciated. Sensorium / Orientation: orientation impaired and lethargic Skin no wounds General Skin Exam: pallor MDM MDM MDM Narrative Medical decision making narrative: Patient evaluated for vomiting and altered mental status. Patient is febrile and tachycardic. She is tachypneic. Septic workup is initiated. Differential includes aspiration pneumonia, influenza, gastroenteritis, bowel obstruction, ischemic bowel. Patient does have a leukocytosis of 13.4. No left shift. She has a stable knee with a hemoglobin of 10.4. This is a stable hemoglobin. BMP largely normal. Lactate normal. Urinalysis consistent with hematuria but not consistent with infection. Influenza A is positive. Is given rectal Tylenol for fever in the emergency room. CT of the chest abdomen pelvis obtained for evaluation of aspiration as well as possible intra-abdominal process given her vomiting. There is increased markings at the lung bases slightly worse on the left suggestive of atelectasis or early infiltrate. My concern is for aspiration pneumonia. In addition there is a questionable tiny gallstone in the gallbladder lumen. There is comment about soft tissue prominence over the left lower anterior abdominal wall extending to the region of the left hip suggestive of hematoma. This does not correlate with her physical exam. Patient is started on Levaquin for aspiration ammonia given she is a history of amoxicillin allergy. Patient is placed on Airvo for respiratory support with good response to it. Given IV fluids in the emergency room. Will be admitted for further respiratory monitoring and treatments. Is ordered Tamiflu in the emergency room however not sure she will be able to swallow it at this time. Lab Data Labs: Laboratory Results - last 24 hr 12/04/24 12/04/24 12/04/24 11:57 12:00 12:31 WBC 13.4 H RBC 3.40 L Hgb 10.4 L Hct 32.5 L MCV 95.6 MCH 30.6 MCHC 32.0 RDW Std Deviation 50.7 H RDW Coeff of Roselyn 14.6 Plt Count 439 MPV 9.3 Immature Gran % (Auto) 0.700 Neut % (Auto) 81.3 H Lymph % (Auto) 6.7 L [place] % (Auto) 6.6 Eos % (Auto) 4.3 Baso % (Auto) 0.4 Absolute Neuts (auto) 10.9 H Absolute Lymphs (auto) 0.90 Nucleated RBC % 0 PT 16.2 H INR 1.3 APTT 34.8 Sodium 134 Potassium 4.4 Chloride 98 Carbon Dioxide 21.6 Anion Gap 14 BUN 19 Creatinine 0.56 L Estim Creat Clear Calc 57.27 Est GFR (MDRD) Non-Af 92 BUN/Creatinine Ratio 34.0 H Glucose 136 H Lactic Acid 1.6 Calcium 8.5 Total Bilirubin 0.34 AST 30 ALT 20 Alkaline Phosphatase 100 Total Protein 6.1 Albumin 3.1 L Globulin 3.0 Albumin/Globulin Ratio 1.0 Urine Color Yellow Urine Clarity Clear Urine pH 6.0 Ur Specific [place] 1.025 Urine Protein 30 H Urine Glucose (UA) Normal Urine Ketones Negative Urine Occult Blood 250 H Urine Nitrite Negative Urine Bilirubin Negative Urine Urobilinogen Normal Ur Leukocyte Esterase 25 H Urine RBC 50-100 SEEN Urine WBC 0-5 SEEN Ur Squamous Epith Cells 0 SEEN Ur Transition Epith Cell 0-5 SEEN Ur Renal Epithelial Cell 0-5 SEEN Calcium Oxalate Crystal 1+ Urine Bacteria 0 SEEN Urine Mucus 0 SEEN Radiography Diagnostic Testing: Clinical Impression(s) from Imaging Studies Chest/Abdomen/Pelvis CT 12/04/24 13:15 IMPRESSION: Increased markings at the lung bases slightly worse at the left lung base suggestive of possible atelectasis and/or early infiltrate. Questionable tiny gallstones along the dependent portion of the gallbladder lumen. Soft tissue prominence overlying the left lower anterior abdominal wall extending to the region of the left hip joints suggestive of possible hematoma. Clinical correlation recommended. One or more dose reduction techniques were used (e.g., Automated exposure control, adjustment of the mA and/or kV according to patient size, use of iterative reconstruction technique). Reading Location: [facility] Rhythm Strip Rhythm Strip: Sinus Tach Rate: 120 Ectopy: None EKG Initial EKG: Attestation: I personally reviewed and interpreted this EKG as follows: Comments: Sinus tachycardia rate 120 bpm Normal axis, normal intervals Nonspecific T wave changes Management Discussion w/another healthcare provider: Hospitalist Discharge Plan Dx/Rx/DC Orders Clinical Impression: Influenza A, Tachycardia, Acute hypoxic respiratory failure, Vomiting Disposition Disposition: Acute Care Hospital [facility] Discharge Date/Time: 12/04/24 15:56
[2024-12-04 12:04] LABS: Bacteria 0 SEEN /hpf (None Seen); Mucous, Urine 0 SEEN /hpf (<or=2+); Squamous Epithelial Cells - UA 0 SEEN /hpf (5-10)
[2024-12-04 12:23] LABS: Color, Urine Yellow (Yellow); Glucose, Dipstick Normal (Normal); Ketone-Dipstick Negative (Negative); Leukocyte Esterase-Dipstick 25 /ul (Negative); Nitrite-Dipstick Negative (Negative); Occult Blood-Urine 250 /ul (Negative); Protein-Dipstick 30 mg/dl (Negative); Specific Gravity, Urine 1.025 (1.002-1.030); Urine Bilirubin Dipstick Negative (Negative); Urine Clarity Clear (Clear); Urine Urobilinogen Normal (Normal)
[2024-12-04] MEDS: Acetaminophen 650 MG Suppository RC (12:36)
[2024-12-04] MEDS: 0.9% Normal Saline (1000mL) 1,000 ML 999 ML IV ×2 (12:36→17:07)
[2024-12-04 12:44] LABS: Absolute Neutrophil Count 10.9 X10^3/uL (2.0-7.7); Basophil# 0.05 X10^3/uL; Basophil% 0.4 % (0-1); Eosinophil# 0.57 X10^3/uL; Eosinophils% 4.3 % (0-5); Hematocrit 32.5 % (37-47); Hemoglobin 10.4 g/dL (12.0-15.0); Lymphocyte % 6.7 % (19-41); Mean Corpuscular Hgb 30.6 pg (27.0-32.0); Mean Corpuscular Volume 95.6 fL (81-99); Mean Platelet Vol. 9.3 fl (6.2-12.0); Monocyte# 0.88 X10^3/uL; Monocyte% 6.6 % (0-10); NRBC Flagged by Analyzer 0 % (0-5); Neutrophil # 10.91 X10^3/uL (2.7-7.7); Neutrophil % 81.3 % (47-70); Platelet Count 439 K/mm3 (150-450); RBC Distribution Width CV 14.6 % (11.6-14.6); RBC Distribution Width SD 50.7 fl (35.1-43.9); White Blood Count 13.4 K/mm3 (4.4-11.0)
[2024-12-04 12:53] LABS: International Normalized Ratio 1.3; Prothrombin Time (Protime)PT. 16.2 SECONDS (11.7-14.9)
[2024-12-04 12:54] LABS: Partial Thromboplast Time 34.8 Seconds (24.1-36.2)
[2024-12-04 12:55] LABS: Red Blood Cells-Urine 50-100 SEEN /hpf (0-5); Transitional Epithelial - Ur 0-5 SEEN /hpf (0-5); White Blood Cells 0-5 SEEN /hpf (0-5)
[2024-12-04 12:56] LABS: Calcium Oxalate Crystals Ur 1+ /hpf (<or=2+); Renal Epithelial Cells 0-5 SEEN /hpf (0-5)
[2024-12-04 13:07] LABS: Lactic Acid 1.6 mmol/L (0.0-2.0)
--- NOTE | 2024-12-04 13:15 | CT_ITS ---
PROCEDURE: CT CHEST, ABD, PEL W/CONTRAST REASON FOR EXAM: Fever. Vomiting and hypoxia. Possible aspiration. TECHNIQUE: Chest, abdomen and pelvis CT with intravenous contrast. No oral contrast. CONTRAST: 100 cc of Isovue-300. COMPARISON: Comparison is made with prior CT scan of the abdomen and pelvis dated November 01, 2024. FINDINGS: CT CHEST: Hardware: None. Lymph nodes: No mediastinal hilar or axillary lymphadenopathy. Heart and Vasculature: Normal heart size. No pericardial effusion. Thoracic aorta and pulmonary arteries are unremarkable.. Mild coronary artery calcification is present. Mild atherosclerotic calcification of the aortic arch. Lungs and Airways: Mild degree of increased linear markings at the lung bases suggestive of atelectasis and/or scarring. This is worse at the left lung base. Pleura: No pleural effusion. No pneumothorax. Bones: Degenerative changes of the thoracic spine. Diffuse osteopenia of the thoracic vertebrae as well as the proximal portions of both humerus. CT ABDOMEN/PELVIS: Liver: Unremarkable. Gallbladder: Questionable small layering gallstones along the dependent portion of the gallbladder lumen. Spleen: Unremarkable. Pancreas: Unremarkable. Adrenals: Unremarkable. Kidneys: Unremarkable. Bladder: A Lau catheter is seen within a decompressed urinary bladder. Reproductive Organs: Prior hysterectomy. Adnexal regions are unremarkable. Bowel: Unremarkable. Appendix: Nonvisualized. Lymph nodes: No suspicious lymph node enlargement. Vasculature: Mild diffuse atherosclerotic calcifications are noted. Peritoneum / Retroperitoneum: No ascites. No free air. Bones: Degenerative changes of the spine. Stable anterior listhesis of L5 on S1. Prior ORIF of the left intertrochanteric fracture. Soft tissue density is seen in the subcutaneous tissues overlying the left lower anterior abdomen extending into the region of the hip joint. This may represent hematoma if there has a history of trauma or recent surgical intervention. CT/CT Chest, Abd, Pel w/Contrast IMPRESSION: Increased markings at the lung bases slightly worse at the left lung base sugge stive of possible atelectasis and/or early infiltrate. Questionable tiny gallstones along the dependent portion of the gallbladder lum en. Soft tissue prominence overlying the left lower anterior abdominal wall extendi ng to the region of the left hip joints suggestive of possible hematoma. Clinical correlation recommended. One or more dose reduction techniques were used (e.g., Automated exposure contr ol, adjustment of the mA and/or kV according to patient size, use of iterative reconstruction technique). Reading Location: [facility]
[2024-12-04 13:17] LABS: EST Glomerular Filtration Rate 92 (>60)
[2024-12-04 13:36] LABS: AST(SGOT) 30 U/L (<=31); Alanine Aminotransfer ALT/SGPT 20 U/L (<=34); Albumin, Serum 3.1 g/dL (3.4-4.8); Alkaline Phosphatase 100 U/L (35-104); Anion Gap 14 (5-15); BUN 19 mg/dL (4-19); Calcium,Total 8.5 mg/dL (7.6-11.0); Carbon Dioxide 21.6 mmol/L (21.0-32.0); Chloride 98 mmol/L (98-108); Creatinine, Serum 0.56 mg/dL (0.70-1.20); Estimated Creatinine Clearance 57.27 ml/min (50-250); Glucose 136 mg/dL (70-99); Potassium 4.4 mmol/L (3.3-5.1); Protein, Total 6.1 g/dL (5.9-8.4); Sodium Level 134 mmol/L (133-145); Total Bilirubin 0.34 mg/dL (0.00-1.30)
--- NOTE | 2024-12-04 14:35 | PCM.HP.STD ---
HPI - General General Date of Admission: 12/04/24 Date of Service: 12/04/24 Chief Complaint: Altered mentation, nausea/vomiting and fevers HPI Narrative SOUMYA MCFARLANE, is a 79 F who presented to [facility] ED on 12/04/2024 with altered mentation, nausea/vomiting and fevers. Patient had a prolonged hospitalization here recently from 10/30-11/11 that was complicated by parainfluenza virus, Streptococcus bacteremia, intractable back pain, urinary retention and falls. She was eventually discharged to [facility]CU. On discussion with family today and review of [facility] records, she was admitted to the hospital side there at [facility] from 11/21-11/30. Hospitalization was complicated by hyponatremia, acute DVT/PE, UTI and worsening iron deficiency anemia. Notably she was found to have an extensive left lower extremity DVT, right popliteal DVT and both segmental and subsegmental PE and she was initiated on Eliquis for this. Was noted that she was progressing poorly in their TCU prior to that hospitalization. She was discharged to [facility] on 11/30. Family noted that when they saw her last night she was mentating well. This morning, staff at the facility noted that she became altered and had 2 episodes of vomiting with concern for aspiration, so she was brought in for further evaluation. She is found to be positive for influenza A here. CT chest abdomen pelvis showed increased markings at bilateral lung bases but no significant aspiration pneumonia versus pneumonitis noted; abdomen was largely unremarkable. She was able to open eyes to command and squeeze hands on command but otherwise was not able to answer any questions. She was noted to be hypoxic and was increased to Airvo 55 L in the ED. Given these findings, hospitalist was contacted for admission. I saw the patient at bedside in the ED, 2 family members are present. Patient was laying back in bed and breathing comfortably on Airvo. She did open eyes and squeeze my hands on command as well but otherwise appeared very weak and chronically ill-appearing. She was protecting her airway. However, she did sound quite rhonchorous in her upper airways bilaterally and had some wheezing noted as well. Discussed with family and on her prior admission here patient noted that she wished to be full code, and family states that no changes to her CODE STATUS have been made since then. We will maintain full CODE STATUS for now. Will be admitted for further management. [facility] Medical History Anxiety Depression Osteoporosis Non-smoker Cerebral palsy Cataract Palpitations Elevated blood pressure reading without diagnosis of hypertension Essential (primary) hypertension Home Medications ?Medication ?Instructions ?Recorded ?Last Taken ?Type garlic 200 mg tablet 200 mg PO DAILY 01/16/18 Unknown History cholecalciferol (vitamin D3) 25 1,000 unit PO DAILY 07/25/23 Unknown History mcg (1,000 unit) tablet metoprolol succinate 50 mg 50 mg PO DAILY #90 TABLETS 01/22/24 Unknown Rx tablet,extended release 24 hr amlodipine 5 mg tablet 5 mg PO DAILY #90 tabs 10/05/24 Unknown Rx risperidone 0.5 mg tablet 0.5 mg PO QHS #0 tabs 11/11/24 Unknown Rx tamsulosin 0.4 mg capsule 0.4 mg PO DAILY@1730 #0 caps 11/11/24 Unknown Rx apixaban 5 mg tablet (Eliquis) 5 mg PO BID 12/04/24 Unknown History ferrous sulfate 325 mg (65 mg 325 mg PO BID 12/04/24 Unknown History iron) tablet (Feosol) lisinopril 20 mg tablet 20 mg PO DAILY 12/04/24 Unknown History pregabalin 50 mg capsule (Lyrica) 50 mg PO TID 12/04/24 Unknown History sennosides 8.6 mg-docusate sodium 1 tab-cap PO BID 12/04/24 Unknown History 50 mg tablet (Stimulant Laxative Plus) Allergy/AdvReac Type Severity Reaction Status Date / Time amantadine (From Symmetrel) AdvReac Severe Unknown Verified 10/30/24 11:00 amoxicillin (From Augmentin) AdvReac Severe Unknown Verified 10/30/24 11:00 clavulanic acid (From AdvReac Severe Unknown Verified 10/30/24 11:00 Augmentin) erythromycin base AdvReac Severe Unknown Verified 10/30/24 11:00 lorazepam (From Ativan) AdvReac restless Verified 10/30/24 17:39 Family History Father Diabetes Hypertension Mother alzhemier Osteoporosis Surgical History History of tonsillectomy History of hysterectomy History of hip replacement Social History Smoking Status: Never smoker alcohol intake: never substance use type: does not use caffeine: Yes Type: coffee Number of servings: 3 what type of physical activity do you participate in: none seatbelt use: always do you feel safe at home: Yes ROS Review of Systems ROS Unobtainable: due to mental status Vital Signs Vital Signs Vital Signs: 12/04/24 11:41 12/04/24 11:41 12/04/24 11:50 Temperature 101.0 F H Temperature Source Temporal Pulse Rate 123 H 120 H Respiratory Rate 22 H 21 H Respiratory Effort Respiratory Depth Respiratory Pattern Blood Pressure 136/56 H Blood Pressure Mean 82 Pulse Ox 90 93 Oxygen Delivery Method Nasal Cannula Airvo Oxygen Flow Rate (L/min) 4 50 Fraction of Inspired Oxygen (FIO2) 53 55 12/04/24 11:51 12/04/24 11:51 12/04/24 12:10 Temperature 101.0 F H Temperature Source Temporal Pulse Rate 119 H Respiratory Rate 22 H Respiratory Effort Labored Nasal Flaring Respiratory Depth Shallow Respiratory Pattern Tachypnea Blood Pressure 136/56 H Blood Pressure Mean 82 Pulse Ox 97 97 Oxygen Delivery Method Airvo Airvo Airvo Oxygen Flow Rate (L/min) 50 50 50 Fraction of Inspired Oxygen (FIO2) 55 55 55 12/04/24 12:20 12/04/24 14:00 Temperature Temperature Source Pulse Rate 117 H 74 Respiratory Rate 22 H 16 Respiratory Effort Respiratory Depth Respiratory Pattern Blood Pressure 109/49 L Blood Pressure Mean 69 Pulse Ox 95 99 Oxygen Delivery Method Oxygen Flow Rate (L/min) Fraction of Inspired Oxygen (FIO2) 47 Weight Weight: 71.9 kg Body Mass Index (BMI) 24.8 Physical Exam Const Constitutional Narrative: Elderly female, chronically ill-appearing, somnolent but was able to open eyes and squeeze my hands to command, otherwise laying back comfortably in bed and in no acute distress. General Appearance: cooperative Orientation / Consciousness: lethargic HEENT normocephalic, head/scalp atraumatic, hearing grossly normal bilaterally and nasal mucous membranes and turbinates normal HEENT Narrative: Poor dentition. Eyes PERRL, EOMs intact bilaterally and conjunctivae normal Chest inspection of chest normal Resp normal respiratory effort and no use of accessory muscles Resp Narrative: Breathing comfortably on Airvo at 55 L. Significant rhonchi noted in bilateral upper airways with mild wheezing noted as well. Cardio regular rate, regular rhythm, no murmurs and peripheral pulses 2+ throughout GI normal to inspection, nondistended, normoactive bowel sounds, soft to palpation, non-tender and non-distended Neuro Neuro Narrative: Contracture of right lower extremity noted in setting of cerebral palsy. Results Lab / Micro Data 12/04/24 12:31 12/04/24 12:00 Labs: Laboratory Results - last 24 hr 12/04/24 11:57: Urine Color Yellow, Urine Clarity Clear, Urine pH 6.0, Ur Specific [place] 1.025, Urine Protein 30 H, Urine Glucose (UA) Normal, Urine Ketones Negative, Urine Occult Blood 250 H, Urine Nitrite Negative, Urine Bilirubin Negative, Urine Urobilinogen Normal, Ur Leukocyte Esterase 25 H, Urine RBC 50-100 SEEN, Urine WBC 0-5 SEEN, Ur Squamous Epith Cells 0 SEEN, Ur Transition Epith Cell 0-5 SEEN, Ur Renal Epithelial Cell 0-5 SEEN, Calcium Oxalate Crystal 1+, Urine Bacteria 0 SEEN, Urine Mucus 0 SEEN 12/04/24 12:00: Sodium 134, Potassium 4.4, Chloride 98, Carbon Dioxide 21.6, Anion Gap 14, BUN 19, Creatinine 0.56 L, Estim Creat Clear Calc 57.27, Est GFR (MDRD) Non-Af 92, BUN/Creatinine Ratio 34.0 H, Glucose 136 H, Calcium 8.5, Total Bilirubin 0.34, AST 30, ALT 20, Alkaline Phosphatase 100, Total Protein 6.1, Albumin 3.1 L, Globulin 3.0, Albumin/Globulin Ratio 1.0 12/04/24 12:31: WBC 13.4 H, RBC 3.40 L, Hgb 10.4 L, Hct 32.5 L, MCV 95.6, MCH 30.6, MCHC 32.0, RDW Std Deviation 50.7 H, RDW Coeff of Roselyn 14.6, Plt Count 439, MPV 9.3, Immature Gran % (Auto) 0.700, Neut % (Auto) 81.3 H, Lymph % (Auto) 6.7 L, Bucks % (Auto) 6.6, Eos % (Auto) 4.3, Baso % (Auto) 0.4, Absolute Neuts (auto) 10.9 H, Absolute Lymphs (auto) 0.90, Nucleated RBC % 0, PT 16.2 H, INR 1.3, APTT 34.8, Lactic Acid 1.6 Micro: Microbiology 12/04/24 11:56 Mucosa - Nose SARS-CoV-2, Influenza & RSV (PCR) - Final Influenzae A Imaging Radiology Impression Chest/Abdomen/Pelvis CT 12/04/24 13:15 IMPRESSION: Increased markings at the lung bases slightly worse at the left lung base suggestive of possible atelectasis and/or early infiltrate. Questionable tiny gallstones along the dependent portion of the gallbladder lumen. Soft tissue prominence overlying the left lower anterior abdominal wall extending to the region of the left hip joints suggestive of possible hematoma. Clinical correlation recommended. One or more dose reduction techniques were used (e.g., Automated exposure control, adjustment of the mA and/or kV according to patient size, use of iterative reconstruction technique). Reading Location: [id number] Assessment & Plan Assessment/Plan (1) Acute hypoxic respiratory failure: (2) Influenza A: PLAN: Plan Patient is a 79-year-old female who presented [facility] ED on 12/04/2024 with altered mentation, fevers and nausea/vomiting with concern for aspiration pneumonia. 1. Acute hypoxic respiratory failure in setting of flu infection with concern for aspiration pneumonia, recent history of moderate oropharyngeal dysphagia ? Admit under inpatient status to ICU. Sat Tutor consulted. Flu A positive in the ED. CT chest with increased markings at lung bases concerning for atelectasis versus pneumonia but otherwise fairly clear. However, patient with significant rhonchi bilaterally and some wheezing noted. Requiring Airvo at 55 L in the ED to maintain appropriate oxygen saturations. Procalcitonin ordered. Will treat with IV steroids, scheduled DuoNebs, IV Levaquin and Tamiflu. Notably had moderate oropharyngeal dysphagia on MBSS here on 11/05. Speech therapy consulted. Will keep n.p.o. for now. Wean supplemental oxygen as able. 2. Acute toxic/metabolic encephalopathy ? Most likely secondary to flu infection with possible aspiration pneumonia. CT head ordered to rule out intracranial pathology. Maintaining airway without issue. Monitor closely and avoid sedating medications as able. Patient will be n.p.o. status for now and cannot take p.o. medications; will follow-up speech therapy recommendations as noted above for this. 3. Mild chronic iron deficiency anemia ? Hemoglobin 10.4 on admit, stable at baseline. Continue home iron supplement. 4. Adult failure to thrive, history of cerebral palsy ? PT/OT/case management consulted. Patient with recent prolonged hospitalizations both here and at [facility] and has had significantly diminished functional status over that time. Presented here from SNF at [facility]. Presume she will need SNF placement again on discharge. 5. Recent DVT/PE on Eliquis ? Diagnosed during recent hospitalization at [facility]. Per report, studies showed an extensive left lower extremity DVT, right popliteal DVT and both segmental and subsegmental PE. Has been on Eliquis since then. Continue home Eliquis. 6. Urinary retention ? Maintain Lau catheter. Continue home Flomax. 7. Hypertension ? Holding home lisinopril, Toprol and amlodipine. DVT prophylaxis: Not indicated, on Eliquis CODE STATUS: Full code, verified Expected disposition: TBD Total clinical time spent by myself addressing the patient's medical issues, reviewing all the data, and collaborating with patient's care team: 75 minutes. Charges/Coding Visit Charges Inpatient E&M: 59553 Init Hosp L3
[2024-12-04] MEDS: levoFLOXacin IV 750 MG/150 ML BAG 100 MG IV (14:45)
[2024-12-04] MEDS: Furosemide 40 MG/4 ML Vial IV (15:04)
--- NOTE | 2024-12-04 15:32 | CT_ITS ---
EXAM: NONCONTRAST CT HEAD CLINICAL HISTORY: AMS on Eliquis COMPARISON: None TECHNIQUE: Axial CT head was performed without IV contrast. Multiplanar reformats were generated. FINDINGS: Note that there is a small amount of circulating contrast from CT chest abdomen and pelvis of same date. Cerebrum: Fairly prominent age-indeterminate hypodensities in the bilateral cerebral white matter. Suspect some associated focal volume loss in the right centrum semiovale along the lateral aspect of the right lateral ventricle suggesting that at least a component of this is chronic, however the remainder is technically age indeterminate in the absence of prior exams to confirm stability. No visible intracranial hemorrhage or mass. Moderate diffuse cerebral volume loss. Prominent/bulky falcine calcifications to the left of midline. Cerebellum:/brainstem: Unremarkable noting slight limitation due to beam hardening artifact. Ventricles: Ventriculomegaly appears slightly disproportionate to the degree of volume loss, with relative sulcal effacement at the vertex.. Paranasal sinuses/mastoid air cells: Tiny air-fluid level in the dependent right sphenoid sinus. Minimal opacification of the anterior ethmoid air cells. Scalp/calvarium: Unremarkable. Orbits: Left cataract surgery. Other: Minimal calcific intracranial atherosclerosis. Presumed cerumen in the left external auditory canal.. CT/Brain/Head without Contrast IMPRESSION: 1. No visible intracranial hemorrhage. 2. Relatively advanced age indeterminate bilateral cerebral ischemic changes ma y reflect chronic microvascular ischemia however this is not definite in the absence of prior exams to confirm stability. If th ere is concern for an acute ischemia in the setting of an acute focal neurologic deficit, MRI is recommended. Comparison w ith any available outside imaging may also be helpful. 3. Findings which may suggest normal pressure/communicating hydrocephalus in th e appropriate clinical context. 4. Trace paranasal sinus disease. 5. Additional description as above. Reading Location: [id number]
[2024-12-04] MEDS: Methylprednisolone Sod Succ 40 MG/ML VIAL IV ×2 (18:05→21:54)
[2024-12-04 19:11] LABS: Procalcitonin 2.62 ng/mL (<=0.10)
--- NOTE | 2024-12-04 19:35 | PCMCONS.TICU ---
HPI Consult Data Date of Consult: 12/04/24 HPI Narrative Reason for Consultation: Acute hypoxemic respiratory failure HPI Narrative: SOUMYA MCFARLANE, is a 79yo non smoker resident of [facility] who presents to ED after displaying SOB and possible aspiration of gastric contents at [facility]. Patient denies choking on food and drink, however. Also tested (+) for Flu A, but states that she has been feeling unwell for over 1 week now. Describes sore throat and malaise and fatigue, but denies fever, chills and rigors. Denies night sweats. (+) cough. However, had fever in ED here. Received 2L IVF resuscitation, has made 700cc UOP and is persistently tachycardic between 104-140bpm. CT chest shows small effusion and atelectasis on the left. Areas of faint increased interstitial signal c/w viral vs edema. Per bedside nurse onsite, patient's family seemed nonplussed by her mentation and behavior and suggested she is at baseline. [facility] Medical History Anxiety Depression Osteoporosis Non-smoker Cerebral palsy Cataract Palpitations Elevated blood pressure reading without diagnosis of hypertension Essential (primary) hypertension Home Medications ?Medication ?Instructions ?Recorded ?Last Taken ?Type garlic 200 mg tablet 200 mg PO DAILY 01/16/18 Unknown History cholecalciferol (vitamin D3) 25 1,000 unit PO DAILY 07/25/23 Unknown History mcg (1,000 unit) tablet metoprolol succinate 50 mg 50 mg PO DAILY #90 TABLETS 01/22/24 Unknown Rx tablet,extended release 24 hr amlodipine 5 mg tablet 5 mg PO DAILY #90 tabs 10/05/24 Unknown Rx risperidone 0.5 mg tablet 0.5 mg PO QHS #0 tabs 11/11/24 Unknown Rx tamsulosin 0.4 mg capsule 0.4 mg PO DAILY@1730 #0 caps 11/11/24 Unknown Rx apixaban 5 mg tablet (Eliquis) 5 mg PO BID 12/04/24 Unknown History ferrous sulfate 325 mg (65 mg 325 mg PO BID 12/04/24 Unknown History iron) tablet (Feosol) lisinopril 20 mg tablet 20 mg PO DAILY 12/04/24 Unknown History pregabalin 50 mg capsule (Lyrica) 50 mg PO TID 12/04/24 Unknown History sennosides 8.6 mg-docusate sodium 1 tab-cap PO BID 12/04/24 Unknown History 50 mg tablet (Stimulant Laxative Plus) Allergy/AdvReac Type Severity Reaction Status Date / Time amantadine (From Symmetrel) AdvReac Severe Unknown Verified 10/30/24 11:00 amoxicillin (From Augmentin) AdvReac Severe Unknown Verified 10/30/24 11:00 clavulanic acid (From AdvReac Severe Unknown Verified 10/30/24 11:00 Augmentin) erythromycin base AdvReac Severe Unknown Verified 10/30/24 11:00 lorazepam (From Ativan) AdvReac restless Verified 10/30/24 17:39 Family History Father Diabetes Hypertension Mother alzhemier Osteoporosis Surgical History History of tonsillectomy History of hysterectomy History of hip replacement Social History Smoking Status: Never smoker alcohol intake: never substance use type: does not use caffeine: Yes Type: coffee Number of servings: 3 what type of physical activity do you participate in: none seatbelt use: always do you feel safe at home: Yes ROS ROS Narrative 10 or more systems reviewed with the patient and are negative except as per HPI Objective Data Objective Data Vital Signs: Vital Signs Last response Temperature 36.2 C L 12/04/24 16:49 Temperature Source Temporal 12/04/24 16:49 Pulse Rate 137 H 12/04/24 17:53 Respiratory Rate 18 12/04/24 17:53 Respiratory Effort Normal 12/04/24 17:53 Respiratory Depth Normal 12/04/24 17:53 Respiratory Pattern Normal 12/04/24 17:53 Blood Pressure 123/72 H 12/04/24 16:49 Blood Pressure Mean 89 12/04/24 16:49 Blood Pressure Source Monitor 12/04/24 16:49 Blood Pressure Position Semi-Fowlers 12/04/24 16:49 Blood Pressure Location Right Arm 12/04/24 16:49 Pulse Ox 91 12/04/24 16:49 Oxygen Delivery Method Nasal Cannula 12/04/24 17:53 Oxygen Flow Rate (L/min) 6 12/04/24 17:53 Fraction of Inspired Oxygen (FIO2) 55 12/04/24 15:07 I&O: I&O Last 24 Hours 12/03/24 12/04/24 12/04/24 23:59 11:59 23:59 Intake Total 2150 / 2150 Output Total 800 / 800 Balance 1350 / 1350 I&O: Total Stay 12/04/24 11:39 thru 12/04/24 18:27 Intake Total 215 Output Total 800 Balance 1350 Current Meds Ordered / Administered: Current meds ordered / Administered Generic Name Dose Route Start Last Admin Trade Name Freq PRN Reason Stop Dose Admin Acetaminophen 650 mg 12/04/24 16:18 Acetaminophen 325 Mg Tablet PO Q6H PRN PRN Pain 1-10 Or Fever>100.7 Apixaban 5 mg 12/04/24 22:00 Apixaban 5 Mg Tablet PO BID [facility] Cholecalciferol 25 mcg 12/05/24 10:00 Cholecalciferol (Vit D3) 25 Mcg Tablet (1,000 Units) PO DAILY [facility] Ferrous Sulfate 325 mg 12/05/24 08:00 Ferrous Sulfate 325 [facility] Levofloxacin 750 mg in 150 mls @ 100 mls/hr 12/05/24 10:00 Levaquin Iv IV Q24 [facility] Lactated Ringer's 500 mls @ 999 mls/hr 12/04/24 19:30 Lactated Ringers IV 12/04/24 20:00 .Q31M [facility] Protocol Methylprednisolone Sodium Succinate 40 mg 12/04/24 22:00 Methylprednisolone Sod Succ 40 Mg/Ml Vial IV Q8 [facility] Morphine Sulfate 2 mg 12/04/24 19:11 Morphine 2 Mg/Ml Syringe IV Q4H PRN PRN Pain Score 6-10 Ondansetron HCl 4 mg 12/04/24 16:18 Ondansetron 4 Mg/2 Ml Vial IV Q8H PRN PRN NAUSEA/VOMITING Oseltamivir Phosphate 30 mg 12/05/24 10:00 Oseltamivir Phosphate 30 Mg Capsule PO 12/09/24 10:01 BID [facility] Pregabalin 50 mg 12/04/24 22:00 Pregabalin 50 Mg Capsule PO TID [facility] Risperidone 0.5 mg 12/04/24 22:00 Risperidone 0.5 Mg Tablet PO QHS [facility] Protocol Senna/Docusate Sodium 1 tablet 12/04/24 22:00 Senna/Docusate Sodium 1 Tablet PO BID [facility] Sodium Chloride 10 - 40 ml 12/04/24 16:59 0.9 % Nacl (Sterile) Posiflush 10 Ml IV UD PRN Port access or dressing change Sodium Chloride 10 - 40 ml 12/04/24 16:59 0.9% Saline Lock 10 Ml Syringe IV UD PRN Midline Flush Tamsulosin HCl 0.4 mg 12/04/24 17:30 12/04/24 18:01 Tamsulosin Hcl 0.4 Mg Capsule PO Not Given DAILY@1730 [facility] Physical Exam Const oriented x3 and no apparent distress General Appearance: cooperative, lethargic, ill appearing and frail HEENT normocephalic and head/scalp atraumatic HEENT Narrative: dry membranes General Ear: hearing grossly impaired Eyes PERRL, EOMs intact bilaterally, conjunctivae normal and no scleral icterus Neck supple and no JVD Neck Narrative: appears to avoid turning full ROM to the right Chest inspection of chest normal Resp normal respiratory effort and no use of accessory muscles Effort and Inspection: able to speak in complete sentences Auscultation: rales Cardio regular rhythm Cardio Narrative: no ectopy, no murmur Rate: tachycardic GI normal to inspection, nondistended, normoactive bowel sounds and non-tender no CVA tenderness Extremity no clubbing, cyanosis or edema Skin Skin Narrative: stage 2 DTI POA, tenting on hands and forearms Neuro CN's II-XII intact bilaterally Psych cooperative and affect normal Mood & Affect: flat affect Lab / Micro Data 12/04/24 12:31 12/04/24 12:00 Labs: Laboratory Results - last 24 hr 12/04/24 11:57: Urine Color Yellow, Urine Clarity Clear, Urine pH 6.0, Ur Specific Wood 1.025, Urine Protein 30 H, Urine Glucose (UA) Normal, Urine Ketones Negative, Urine Occult Blood 250 H, Urine Nitrite Negative, Urine Bilirubin Negative, Urine Urobilinogen Normal, Ur Leukocyte Esterase 25 H, Urine RBC 50-100 SEEN, Urine WBC 0-5 SEEN, Ur Squamous Epith Cells 0 SEEN, Ur Transition Epith Cell 0-5 SEEN, Ur Renal Epithelial Cell 0-5 SEEN, Calcium Oxalate Crystal 1+, Urine Bacteria 0 SEEN, Urine Mucus 0 SEEN 12/04/24 12:00: Sodium 134, Potassium 4.4, Chloride 98, Carbon Dioxide 21.6, Anion Gap 14, BUN 19, Creatinine 0.56 L, Estim Creat Clear Calc 57.27, Est GFR (MDRD) Non-Af 92, BUN/Creatinine Ratio 34.0 H, Glucose 136 H, Calcium 8.5, Total Bilirubin 0.34, AST 30, ALT 20, Alkaline Phosphatase 100, Total Protein 6.1, Albumin 3.1 L, Globulin 3.0, Albumin/Globulin Ratio 1.0, Procalcitonin 2.62 H 12/04/24 12:31: WBC 13.4 H, RBC 3.40 L, Hgb 10.4 L, Hct 32.5 L, MCV 95.6, MCH 30.6, MCHC 32.0, RDW Std Deviation 50.7 H, RDW Coeff of Roselyn 14.6, Plt Count 439, MPV 9.3, Immature Gran % (Auto) 0.700, Neut % (Auto) 81.3 H, Lymph % (Auto) 6.7 L, [place]in % (Auto) 6.6, Eos % (Auto) 4.3, Baso % (Auto) 0.4, Absolute Neuts (auto) 10.9 H, Absolute Lymphs (auto) 0.90, Nucleated RBC % 0, PT 16.2 H, INR 1.3, APTT 34.8, Lactic Acid 1.6 Micro: Microbiology 12/04/24 11:56 Mucosa - Nose SARS-CoV-2, Influenza & RSV (PCR) - Final Influenzae A Rhythm Strip Rhythm Strip: Sinus Tach Rate: 120 Ectopy: None Imaging Radiology Impression Chest/Abdomen/Pelvis CT 12/04/24 13:15 IMPRESSION: Increased markings at the lung bases slightly worse at the left lung base suggestive of possible atelectasis and/or early infiltrate. Questionable tiny gallstones along the dependent portion of the gallbladder lumen. Soft tissue prominence overlying the left lower anterior abdominal wall extending to the region of the left hip joints suggestive of possible hematoma. Clinical correlation recommended. One or more dose reduction techniques were used (e.g., Automated exposure control, adjustment of the mA and/or kV according to patient size, use of iterative reconstruction technique). Reading Location: [id number] Brain CT 12/04/24 15:32 IMPRESSION: 1. No visible intracranial hemorrhage. 2. Relatively advanced age indeterminate bilateral cerebral ischemic changes may reflect chronic microvascular ischemia however this is not definite in the absence of prior exams to confirm stability. If there is concern for an acute ischemia in the setting of an acute focal neurologic deficit, MRI is recommended. Comparison with any available outside imaging may also be helpful. 3. Findings which may suggest normal pressure/communicating hydrocephalus in the appropriate clinical context. 4. Trace paranasal sinus disease. 5. Additional description as above. Reading Location: [id number] CT chest and abdomen and pelvis reviewed personally - small pleural effusion on left, thickened pleura on left, maybe chronic lung entrapment, atelectasis, faint mosaicism suggestive of edema vs viral PNA; large stool and gas burden in the large colon and rectal vault, s/p hysterectomy Assessment and Plan . 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
[2024-12-04] MEDS: LACTATED RINGERS 500 ML 999 ML IV (20:08)
[2024-12-05] VITALS (14 sets, daily range): BP systolic 91–148; BP diastolic 57–94; PULSE 74–100; RESP 15–21; TEMP 36.3–37.2; O2SAT 91–97; BMI 23.9
[2024-12-05 04:45] LABS: Hematocrit 29.4 % (37-47); Hemoglobin 9.6 g/dL (12.0-15.0); Mean Corp Hgb Conc 32.7 g/dL (32-36); Mean Corpuscular Hgb 30.6 pg (27.0-32.0); Mean Corpuscular Volume 93.6 fL (81-99); Platelet Count 385 K/mm3 (150-450); RBC Distribution Width CV 14.7 % (11.6-14.6); RBC Distribution Width SD 50.3 fl (35.1-43.9); Red Blood Count 3.14 M/mm3 (4.2-5.4); White Blood Count 19.9 K/mm3 (4.4-11.0)
[2024-12-05 05:26] LABS: Anion Gap 12 (5-15); BUN 20 mg/dL (4-19); Calcium,Total 8.5 mg/dL (7.6-11.0); Carbon Dioxide 22.6 mmol/L (21.0-32.0); Chloride 101 mmol/L (98-108); EST Glomerular Filtration Rate 97 (>60); Estimated Creatinine Clearance 55.13 ml/min (50-250); Glucose 145 mg/dL (70-99); Potassium 3.5 mmol/L (3.3-5.1); Sodium Level 136 mmol/L (133-145)
[2024-12-05] MEDS: Methylprednisolone Sod Succ 40 MG/ML VIAL IV (06:08)
[2024-12-05] MEDS: 0.9% Saline Lock 10 ML Syringe IV (06:09)
--- NOTE | 2024-12-05 09:19 | CASEMGMT ---
Addendum entered by Jenifer Ward 12/08/24 11:40: NENO did confirm the plan is for patient to return to [facility] at d/c. Jenifer HARRIS Original Note: Patient is from [facility]. SW called patient's sister Kadi. Introduced self and role at [facility]. NENO asked Kadi if the plan is for patient to return to [facility] ([facility]) at d/c. Kadi said she does not know yet. NENO told Kadi NENO will continue to follow and assist with d/c planning. Jenifer HARRIS
[2024-12-05] MEDS: 0.9% Normal Saline (1000mL) 1,000 ML 75 ML IV (10:16)
[2024-12-05] MEDS: levoFLOXacin IV 750 MG/150 ML BAG 100 MG IV (10:35)
--- NOTE | 2024-12-05 13:06 | PN.CC_ITS ---
Objective Data Objective Data Vital Signs: Vital Signs Last response 3 Temperature 36.4 C L 12/05/24 04:00 Temperature Source Temporal 12/05/24 04:00 Pulse Rate 81 12/05/24 07:00 Respiratory Rate 15 12/05/24 06:00 Respiratory Effort Normal 12/05/24 09:13 Respiratory Depth Normal 12/05/24 09:13 Respiratory Pattern Normal 12/05/24 09:13 Blood Pressure 121/57 H 12/05/24 06:00 Blood Pressure Mean 78 12/05/24 06:00 Blood Pressure Source Monitor 12/05/24 06:00 Blood Pressure Position Supine 12/05/24 06:00 Blood Pressure Location Right Arm 12/05/24 06:00 Pulse Ox 93 12/05/24 09:19 Oxygen Delivery Method Nasal Cannula 12/05/24 09:19 Oxygen Flow Rate (L/min) 6 12/05/24 09:19 Fraction of Inspired Oxygen (FIO2) 55 12/04/24 15:07 I&O: I&O Last 24 Hours 3 12/04/24 12/05/24 12/05/24 23:59 11:59 23:59 Intake Total 2650 / 2650 Output Total 1275 / 1275 275 / 275 Balance 1375 / 1375 -275 / -275 I&O: Total Stay 3 12/04/24 11:39 thru 12/05/24 06:00 Intake Total 2650 Output Total 1550 Balance 1100 Current Meds Ordered / Administered: Current meds ordered / Administered 3 Generic Name Dose Route Start Last Admin Trade Name Freq PRN Reason Stop Dose Admin Acetaminophen 650 mg 12/04/24 16:18 Acetaminophen 325 Mg Tablet PO Q6H PRN PRN Pain 1-10 Or Fever>100.7 Apixaban 5 mg 12/04/24 22:00 12/04/24 20:09 Apixaban 5 Mg Tablet PO Not Given BID [facility] Cholecalciferol 25 mcg 12/05/24 10:00 Cholecalciferol (Vit D3) 25 Mcg Tablet (1,000 Units) PO DAILY [facility] Ferrous Sulfate 325 mg 12/05/24 08:00 12/05/24 08:33 Ferrous Sulfate 325 Mg Tablet PO Not Given DAILYCM [facility] Levofloxacin 750 mg in 150 mls @ 100 mls/hr 12/05/24 10:00 12/05/24 10:35 Levaquin Iv IV 100 mls/hr Q24 [facility] Administration Sodium Chloride 1,000 mls @ 75 mls/hr 12/05/24 09:45 12/05/24 10:16 IV 12/06/24 12:24 75 mls/hr .[id number] [facility] Administration Protocol Morphine Sulfate 2 mg 12/04/24 19:11 Morphine 2 Mg/Ml Syringe IV Q4H PRN PRN Pain Score 6-10 Ondansetron HCl 4 mg 12/04/24 16:18 Ondansetron 4 Mg/2 Ml Vial IV Q8H PRN PRN NAUSEA/VOMITING Oseltamivir Phosphate 30 mg 12/05/24 10:00 Oseltamivir Phosphate 30 Mg Capsule PO 12/09/24 10:01 BID [facility] Pregabalin 50 mg 12/04/24 22:00 12/05/24 06:00 Pregabalin 50 Mg Capsule PO Not Given TID [facility] Risperidone 0.5 mg 12/04/24 22:00 12/04/24 20:09 Risperidone 0.5 Mg Tablet PO Not Given QHS [facility] Protocol Senna/Docusate Sodium 1 tablet 12/04/24 22:00 12/04/24 20:09 Senna/Docusate Sodium 1 Tablet PO Not Given BID [facility] Sodium Chloride 10 - 40 ml 12/04/24 16:59 0.9 % Nacl (Sterile) Posiflush 10 Ml IV UD PRN Port access or dressing change Sodium Chloride 10 - 40 ml 12/04/24 16:59 12/05/24 06:09 0.9% Saline Lock 10 Ml Syringe IV 10 ml UD PRN Administration Midline Flush Tamsulosin HCl 0.4 mg 12/04/24 17:30 12/04/24 18:01 Tamsulosin Hcl 0.4 Mg Capsule PO Not Given DAILY@1730 [facility] Lab / Micro Data 12/05/24 04:30 12/05/24 04:30 Labs: Laboratory Results - last 24 hr 12/04/24 12:00: Sodium 134, Potassium 4.4, Chloride 98, Carbon Dioxide 21.6, Anion Gap 14, BUN 19, Creatinine 0.56 L, Estim Creat Clear Calc 57.27, Est GFR (MDRD) Non-Af 92, BUN/Creatinine Ratio 34.0 H, Glucose 136 H, Calcium 8.5, Total Bilirubin 0.34, AST 30, ALT 20, Alkaline Phosphatase 100, Total Protein 6.1, A lbumin 3.1 L, Globulin 3.0, Albumin/Globulin Ratio 1.0, Procalcitonin 2.62 H 12/04/24 12:31: Lactic Acid 1.6 12/05/24 04:30: WBC 19.9 H, RBC 3.14 L, Hgb 9.6 L, Hct 29.4 L, MCV 93.6, MCH 30.6, MCHC 32.7, RDW Std Deviation 50.3 H, RDW Coeff of Roselyn 14.7 H, Plt Count 385, MPV 9.0, Sodium 136, Potassium 3.5, Chloride 101, Carbon Dioxide 22.6, Anion Gap 12, BUN 20 H, Creatinine 0.50 L, Estim Creat Clear Calc 55.13, Est GFR (MDRD) Non-Af 97, BUN/Creatinine Ratio 39.0 H, Glucose 145 H, Calcium 8.5 Micro: Microbiology 12/04/24 11:57 Urine Catheter - Lau Urine Culture - Preliminary Culture exhibits no growth. 12/04/24 11:56 Mucosa - Nose SARS-CoV-2, Influenza & RSV (PCR) - Final Influenzae A Rhythm Strip Rhythm Strip: Sinus Tach Rate: 120 Ectopy: None Imaging Radiology Impression Chest/Abdomen/Pelvis CT 12/04/24 13:15 IMPRESSION: Increased markings at the lung bases slightly worse at the left lung base suggestive of possible atelectasis and/or early infiltrate. Questionable tiny gallstones along the dependent portion of the gallbladder lumen. Soft tissue prominence overlying the left lower anterior abdominal wall extending to the region of the left hip joints suggestive of possible hematoma. Clinical correlation recommended. One or more dose reduction techniques were used (e.g., Automated exposure control, adjustment of the mA and/or kV according to patient size, use of iterative reconstruction technique). Reading Location: [id number] Brain CT 12/04/24 15:32 IMPRESSION: 1. No visible intracranial hemorrhage. 2. Relatively advanced age indeterminate bilateral cerebral ischemic changes may reflect chronic microvascular ischemia however this is not definite in the absence of prior exams to confirm stability. If there is concern for an acute ischemia in the setting of an acute focal neurologic deficit, MRI is recommended. Comparison with any available outside imaging may also be helpful. 3. Findings which may suggest normal pressure/communicating hydrocephalus in the appropriate clinical context. 4. Trace paranasal sinus disease. 5. Additional description as above. Reading Location: [id number] Assessment and Plan . Assessment and plan: Critical Care Time: The entirety of this encounter was done via Telemedicine Subjective Subjective Pt feels tired but denies SOB/chest pain/N/V. Choked with PO intake overnight but cleared with aspiration precautions this AM. Making urine. Afebrile. Sats 98% on 4L. PE: General: Well developed, chronically ill appearing; in no distress HEENT: anicteric Sclera, nl nose; supple neck, no masses Cardiovascular: S1/S2; No rubs, gallops; no displaced PM; 3-4+ pitting BL LE edema Respiratory: diminished; no crackles, wheezes, or rhonchi Abdominal: Non-tender; Non distended; hypoBS x 4; No Hepatosplenomegaly Extremities: Warm, well perfused; No clubbing, cyanosis; capillary refill < 2 sec Skin: intact, no rashes Neurological: A&Ox3; no gross deficits appreciated A/P: #Acute hypoxemic Respiratory failure #Flu #?PNA #Aspiration of gastric contents with Hx chronic aspiration #Wounds POA #Failure to thrive, moderate to severe protein calorie malnutrition #Sepsis #Cerebral palsy -Oxygenation improved- may have been related to pneumonitis; down to 4L with sats upper 90s; cont titrating to goal sats ~90% -Cont emp IV Abx; F/U Cx -Finish Tamiflu course -Cont follow recs per [employer]; may ultimately need eval for PEG although overall risk of PNA will not improve Can downgrade from my stand point. Will sign off but available as needed. The entirety of this encounter was done via Telemedicine
[2024-12-05] MEDS: APIXABAN 5 MG TABLET PO ×2 (14:43→22:00)
[2024-12-05] MEDS: Cholecalciferol (VIT D3) 25 MCG TABLET (1,000 UNITS) PO (14:44)
[2024-12-05] MEDS: Oseltamivir Phosphate 30 MG Capsule PO ×2 (14:44→22:02)
[2024-12-05] MEDS: Pregabalin 50 MG Capsule PO ×2 (14:45→22:04)
--- NOTE | 2024-12-05 14:59 | PCM.PROGNOTE ---
Subjective Subjective Patient seen and examined. She complained of feeling cold. She denies any fever, chills, cough, chest pain, palpitations, dizziness, nausea, vomiting or any other symptoms. Review of systems is otherwise negative. Objective Data Objective Data Vital Signs: Vital Signs Temp Pulse Resp BP Pulse Ox O2 Del Method O2 Flow Rate 98.0 F 92 19 H 135/83 H 97 Nasal Cannula 6 12/05/24 12:00 12/05/24 13:00 12/05/24 13:00 12/05/24 13:00 12/05/24 13:00 12/05/24 13:00 12/05/24 13:00 FiO2 55 12/04/24 15:07 Oxygen Flow Rate (L/min) 6 Oxygen Delivery Method Nasal Cannula Weight: 148 lb 2.41 oz Body Mass Index (BMI) 23.9 Intake & Output: Intake and Output for Last 24 Hours 12/03/24 12/04/24 12/05/24 23:59 23:59 23:59 Intake Total 2650 / 2650 200 / 200 Output Total 1275 / 1275 475 / 475 Balance 1375 / 1375 -275 / -275 Lab / Micro Data 12/05/24 04:30 12/05/24 04:30 Labs: Laboratory Results - last 24 hr 12/04/24 12:00: Procalcitonin 2.62 H 12/05/24 04:30: WBC 19.9 H, RBC 3.14 L, Hgb 9.6 L, Hct 29.4 L, MCV 93.6, MCH 30.6, MCHC 32.7, RDW Std Deviation 50.3 H, RDW Coeff of Roselyn 14.7 H, Plt Count 385, MPV 9.0, Sodium 136, Potassium 3.5, Chloride 101, Carbon Dioxide 22.6, Anion Gap 12, BUN 20 H, Creatinine 0.50 L, Estim Creat Clear Calc 55.13, Est GFR (MDRD) Non-Af 97, BUN/Creatinine Ratio 39.0 H, Glucose 145 H, Calcium 8.5 Micro: Microbiology 12/04/24 11:57 Urine Catheter - Lau Urine Culture - Preliminary Culture exhibits no growth. 12/04/24 11:56 Mucosa - Nose SARS-CoV-2, Influenza & RSV (PCR) - Final Influenzae A Radiography Diagnostic Testing: Radiology Impression Brain CT 12/04/24 15:32 IMPRESSION: 1. No visible intracranial hemorrhage. 2. Relatively advanced age indeterminate bilateral cerebral ischemic changes may reflect chronic microvascular ischemia however this is not definite in the absence of prior exams to confirm stability. If there is concern for an acute ischemia in the setting of an acute focal neurologic deficit, MRI is recommended. Comparison with any available outside imaging may also be helpful. 3. Findings which may suggest normal pressure/communicating hydrocephalus in the appropriate clinical context. 4. Trace paranasal sinus disease. 5. Additional description as above. Reading Location: [id number] Rhythm Strip Rhythm Strip: Sinus Tach Rate: 120 Ectopy: None Physical Exam Const alert and oriented x3 Constitutional Narrative: restless, looks uncomfortable HEENT normocephalic and head/scalp atraumatic Mouth: dry mucous membranes Eyes PERRL and EOMs intact bilaterally Neck no lymphadenopathy and supple Lymph Lymphatic: no lymphadenopathy noted and no lymphedema noted Resp Resp Narrative: mildly diminished breath sounds bibasally, no wheezes or crackles. On 6L of oxygen by nasal canula. Cardio regular rate, regular rhythm, S1 normal heart sound, S2 normal heart sound and no murmurs GI normal to inspection, nondistended, normoactive bowel sounds, soft to palpation and non-tender Extremity normal capillary refill, no clubbing, cyanosis or edema and no calf tenderness General Extremity: no tenderness to palpation of joints or extremities Skin General Skin Exam: no breakdown Neuro CN's II-XII intact bilaterally, no focal motor deficits and no sensory deficits noted Motor Exam: general weakness Psych Mood & Affect: anxious Assessment & Plan Assessment/Plan (1) Influenza A: (2) Acute hypoxic respiratory failure: PLAN: Plan #Acute hypoxic respiratory failure due to acute influenza infection and concern for aspiration pneumonia patient remains on oxygen influenza screen was positive in the ED CT chest showed increased markings at the lung base concerning for atelectasis versus pneumonia but otherwise fairly clear. Was on Airvo but now weaned down to oxygen by nasal cannula- 4L On IV Solu-Medrol, IV Levaquin and Tamiflu. Speech therapy also consulted due to concerns for dysphagia. Currently NPO. Titrate oxygen to maintain saturation above 90%. Breathing treatments bronchodilators. #History of cerebral palsy with failure to thrive Has had recent prolonged hospitalizations and has gradually gotten weaker. PT OT on board. Fall precautions. #History of DVT and PE Diagnosed recently during hospitalization at [facility]. Imaging done showed extensive left lower extremity DVT, right popliteal DVT and segmental and subsegmental DVT. On Eliquis. #History of urinary retention: Lau catheter in situ #Hypertension: On lisinopril, metoprolol and amlodipine DVT prophylaxis: Not indicated as patient is on Eliquis. Charges/Coding Visit Charges Inpatient E&M: 53916 Subs Hosp L2
[2024-12-05] MEDS: Tamsulosin HCl 0.4 MG Capsule PO (16:51)
[2024-12-05] MEDS: Senna/Docusate Sodium 1 Tablet PO (21:59)
[2024-12-05] MEDS: RisperiDONE 0.5 MG Tablet PO (22:01)
[2024-12-05] MEDS: Acetaminophen 325 MG Tablet 650 MG PO (22:04)
[2024-12-06] VITALS (11 sets, daily range): BP systolic 112–168; BP diastolic 57–88; PULSE 80–149; RESP 16–20; TEMP 36.6–38.6; O2SAT 92–100; BMI 24.0
[2024-12-06] MEDS: 0.9% Normal Saline (1000mL) 1,000 ML 75 ML IV (00:34)
[2024-12-06 04:52] LABS: Absolute Lymphocyte Count 1.18 X10^3/uL (0.83-4.51); Absolute Neutrophil Count 12.2 X10^3/uL (2.0-7.7); Basophil# 0.02 X10^3/uL; Basophil% 0.1 % (0-1); Eosinophil# 0.01 X10^3/uL; Eosinophils% 0.1 % (0-5); Hematocrit 28.3 % (37-47); Hemoglobin 9.2 g/dL (12.0-15.0); Lymphocyte # 1.18 X10^3/ul (0.83-4.51); Lymphocyte % 8.4 % (19-41); Mean Corp Hgb Conc 32.5 g/dL (32-36); Mean Corpuscular Hgb 30.7 pg (27.0-32.0); Mean Corpuscular Volume 94.3 fL (81-99); Mean Platelet Vol. 9.5 fl (6.2-12.0); Monocyte# 0.62 X10^3/uL; Monocyte% 4.4 % (0-10); NRBC Flagged by Analyzer 0 % (0-5); Neutrophil # 12.17 X10^3/uL (2.7-7.7); Neutrophil % 86.4 % (47-70); Platelet Count 378 K/mm3 (150-450); RBC Distribution Width CV 14.6 % (11.6-14.6); RBC Distribution Width SD 50.2 fl (35.1-43.9); White Blood Count 14.1 K/mm3 (4.4-11.0)
[2024-12-06 05:35] LABS: Anion Gap 11 (5-15); BUN 20 mg/dL (4-19); BUN/Creat Ratio 40.5 RATIO (10-20); Calcium,Total 8.1 mg/dL (7.6-11.0); Carbon Dioxide 22.1 mmol/L (21.0-32.0); Chloride 106 mmol/L (98-108); EST Glomerular Filtration Rate 97 (>60); Estimated Creatinine Clearance 55.13 ml/min (50-250); Glucose 98 mg/dL (70-99); Potassium 3.3 mmol/L (3.3-5.1); Sodium Level 139 mmol/L (133-145)
[2024-12-06] MEDS: Pregabalin 50 MG Capsule PO ×3 (05:53→22:38)
[2024-12-06] MEDS: Ferrous Sulfate 325 MG Tablet PO (08:35)
[2024-12-06] MEDS: levoFLOXacin IV 750 MG/150 ML BAG 100 MG IV (10:03)
[2024-12-06] MEDS: Senna/Docusate Sodium 1 Tablet PO ×2 (10:06→20:47)
[2024-12-06] MEDS: APIXABAN 5 MG TABLET PO ×2 (10:06→20:47)
[2024-12-06] MEDS: Cholecalciferol (VIT D3) 25 MCG TABLET (1,000 UNITS) PO (10:07)
[2024-12-06] MEDS: Oseltamivir Phosphate 30 MG Capsule PO ×2 (10:07→20:49)
[2024-12-06] MEDS: Metoprolol(XL)Succ 50 MG Tablet PO (11:13)
[2024-12-06] MEDS: Lisinopril 20 MG Tablet PO (11:14)
[2024-12-06] MEDS: amLODIPine 5 MG Tablet PO (11:16)
[2024-12-06] MEDS: 0.9 % NaCl (Sterile) Posiflush 10 mL IV ×2 (13:04→17:53)
[2024-12-06] MEDS: Acetaminophen 325 MG Tablet 650 MG PO ×2 (13:04→20:47)
--- NOTE | 2024-12-06 13:17 | PCM.PROGNOTE ---
Subjective Subjective Patient seen and examined. She had no active complaints. She denied any cough, chest pain, palpitations, dizziness, nausea, vomiting or any other symptoms. She is on 3L of oxygen by nasal canula. Objective Data Objective Data Vital Signs: Vital Signs Temp Pulse Resp BP Pulse Ox O2 Del Method O2 Flow Rate 101.4 F H 115 H 18 168/67 H 100 Nasal Cannula 3 12/06/24 12:56 12/06/24 12:56 12/06/24 12:56 12/06/24 12:56 12/06/24 12:56 12/06/24 12:56 12/06/24 12:56 FiO2 55 12/04/24 15:07 Oxygen Flow Rate (L/min) 3 Oxygen Delivery Method Nasal Cannula Weight: 148 lb 12.992 oz Body Mass Index (BMI) 24.0 Intake & Output: Intake and Output for Last 24 Hours 12/04/24 12/05/24 12/07/24 23:59 23:59 00:59 Intake Total 2650 / 2650 1700 / 1700 450 / 450 Output Total 1275 / 1275 1100 / 1100 450 / 450 Balance 1375 / 1375 600 / 600 0 / 0 Lab / Micro Data 12/06/24 04:32 12/06/24 04:32 Labs: Laboratory Results - last 24 hr 12/06/24 04:32: WBC 14.1 H, RBC 3.00 L, Hgb 9.2 L, Hct 28.3 L, MCV 94.3, MCH 30.7, MCHC 32.5, RDW Std Deviation 50.2 H, RDW Coeff of Roselyn 14.6, Plt Count 378, MPV 9.5, Immature Gran % (Auto) 0.600, Neut % (Auto) 86.4 H, Lymph % (Auto) 8.4 L, [place] % (Auto) 4.4, Eos % (Auto) 0.1, Baso % (Auto) 0.1, Absolute Neuts (auto) 12.2 H, Absolute Lymphs (auto) 1.18, Nucleated RBC % 0, Sodium 139, Potassium 3.3, Chloride 106, Carbon Dioxide 22.1, Anion Gap 11, BUN 20 H, Creatinine 0.50 L, Estim Creat Clear Calc 55.13, Est GFR (MDRD) Non-Af 97, BUN/Creatinine Ratio 40.5 H, Glucose 98, Calcium 8.1 Micro: Microbiology 12/04/24 11:57 Urine Catheter - Lau Urine Culture - Preliminary Culture exhibits no growth. 12/04/24 11:56 Mucosa - Nose SARS-CoV-2, Influenza & RSV (PCR) - Final Influenzae A Rhythm Strip Rhythm Strip: Sinus Tach Rate: 120 Ectopy: None Physical Exam Const alert and oriented x3 Constitutional Narrative: flat affect General Appearance: cooperative HEENT normocephalic, head/scalp atraumatic, hearing grossly normal bilaterally and nasal mucous membranes and turbinates normal Eyes PERRL, EOMs intact bilaterally and conjunctivae normal Neck no lymphadenopathy and supple Lymph Lymphatic: no lymphadenopathy noted and no lymphedema noted Chest inspection of chest normal Resp normal respiratory effort and no use of accessory muscles Resp Narrative: mildly diminished breath sounds bibasally, no wheezes or crackles. Down to 3 L of oxygen by nasal canula. Cardio regular rate, regular rhythm, S1 normal heart sound, S2 normal heart sound, no murmurs and peripheral pulses 2+ throughout GI normal to inspection, nondistended, normoactive bowel sounds, soft to palpation, non-tender and non-distended Extremity normal capillary refill, no clubbing, cyanosis or edema and no calf tenderness General Extremity: no tenderness to palpation of joints or extremities Skin General Skin Exam: no breakdown Neuro CN's II-XII intact bilaterally, no focal motor deficits and no sensory deficits noted Neuro Narrative: Contracture of right lower extremity noted in setting of cerebral palsy. Motor Exam: general weakness Psych Mood & Affect: flat affect Assessment & Plan Assessment/Plan (1) Influenza A: (2) Acute hypoxic respiratory failure: PLAN: Plan #Acute hypoxic respiratory failure due to acute influenza infection and concern for aspiration pneumonia patient remains on oxygen and is down to 3L today influenza screen was positive in the ED CT chest showed increased markings at the lung base concerning for atelectasis versus pneumonia but otherwise fairly clear. On IV Solu-Medrol, IV Levaquin and Tamiflu. Speech therapy also consulted due to concerns for dysphagia. On modified diet per speech therapy Titrate oxygen to maintain saturation above 90%. Breathing treatments with bronchodilators. #History of cerebral palsy with failure to thrive Has had recent prolonged hospitalizations and has gradually gotten weaker. PT OT on board. Fall precautions. #History of DVT and PE Diagnosed recently during hospitalization at [facility]. Imaging done showed extensive left lower extremity DVT, right popliteal DVT and segmental and subsegmental DVT. On Eliquis. #History of urinary retention: Lau catheter in situ #Hypertension: On lisinopril, metoprolol and amlodipine DVT prophylaxis: Not indicated as patient is on Eliquis. Disposition: transfer patient to PCU Charges/Coding Visit Charges Inpatient E&M: 34534 Subs Hosp L2
--- NOTE | 2024-12-06 16:52 | NURSING ---
charting and assessment reviewed and in agreement with oil lease operator this shift
[2024-12-06] MEDS: Tamsulosin HCl 0.4 MG Capsule PO (17:22)
[2024-12-06] MEDS: dilTIAZem 25 MG/5 ML Vial 20 MG IV BOLUS (17:52)
[2024-12-06] MEDS: RisperiDONE 0.5 MG Tablet PO (20:48)
[2024-12-07] VITALS (13 sets, daily range): BP systolic 110–144; BP diastolic 64–84; PULSE 82–127; RESP 18–24; TEMP 36.6–37.5; O2SAT 91–96
[2024-12-07] MEDS: Pregabalin 50 MG Capsule PO ×2 (06:13→21:35)
[2024-12-07 07:50] LABS: Absolute Lymphocyte Count 0.99 X10^3/uL (0.83-4.51); Absolute Neutrophil Count 4.2 X10^3/uL (2.0-7.7); Basophil# 0.01 X10^3/uL; Basophil% 0.2 % (0-1); Hematocrit 27.9 % (37-47); Hemoglobin 8.9 g/dL (12.0-15.0); Lymphocyte # 0.99 X10^3/ul (0.83-4.51); Lymphocyte % 17.3 % (19-41); Mean Corp Hgb Conc 31.9 g/dL (32-36); Mean Corpuscular Hgb 30.3 pg (27.0-32.0); Mean Corpuscular Volume 94.9 fL (81-99); Mean Platelet Vol. 9.6 fl (6.2-12.0); Monocyte# 0.47 X10^3/uL; Monocyte% 8.2 % (0-10); NRBC Flagged by Analyzer 0 % (0-5); Neutrophil # 4.22 X10^3/uL (2.7-7.7); Neutrophil % 73.6 % (47-70); Platelet Count 317 K/mm3 (150-450); RBC Distribution Width CV 14.8 % (11.6-14.6); RBC Distribution Width SD 51.4 fl (35.1-43.9); Red Blood Count 2.94 M/mm3 (4.2-5.4); White Blood Count 5.7 K/mm3 (4.4-11.0)
--- NOTE | 2024-12-07 08:33 | PN.HOSP_ITS ---
Reason for Visit Reason for Visit: Diagnoses Influenza due to other identified influenza virus with other respiratory manifestations (12/04/24) Acute respiratory failure with hypoxia (12/04/24) Subjective Subjective Patient evaluated at bedside, reports she feels like her breathing is better and that her cough is improving, does report she feels weak and like her legs are heavy that she is able to move them on the bed, patient this a.m. had an episode with concern for aspiration and speech evaluated and made patient n.p.o. and at the time was not alert enough for speech eval. Objective Data Objective Data Vital Signs: Vital Signs Temp Pulse Resp BP Pulse Ox O2 Del Method O2 Flow Rate 98.6 F 94 19 H 141/80 H 96 Nasal Cannula 3 12/07/24 02:00 12/07/24 02:00 12/07/24 02:00 12/07/24 02:00 12/07/24 08:26 12/07/24 08:26 12/07/24 08:26 FiO2 55 12/04/24 15:07 Oxygen Flow Rate (L/min) 3 Oxygen Delivery Method Nasal Cannula Weight: 67.5 kg Body Mass Index (BMI) 24.0 Intake & Output: Intake and Output for Last 24 Hours 12/05/24 12/07/24 12/07/24 23:59 00:59 23:59 Intake Total 1700 / 1700 1730 / 1730 280 / 280 Output Total 1100 / 1100 550 / 550 Balance 600 / 600 1180 / 1180 280 / 280 Lab / Micro Data 12/07/24 07:22 12/07/24 07:22 Labs: Laboratory Results - last 24 hr 12/07/24 07:22: WBC 5.7, RBC 2.94 L, Hgb 8.9 L, Hct 27.9 L, MCV 94.9, MCH 30.3, MCHC 31.9 L, RDW Std Deviation 51.4 H, RDW Coeff of Roselyn 14.8 H, Plt Count 317, MPV 9.6, Immature Gran % (Auto) 0.700, Neut % (Auto) 73.6 H, Lymph % (Auto) 17.3 L, [place] % (Auto) 8.2, Eos % (Auto) 0.0, Baso % (Auto) 0.2, Absolute Neuts (auto) 4.2, Absolute Lymphs (auto) 0.99, Nucleated RBC % 0 Micro: Microbiology 12/04/24 12:31 Blood Culture (Wb) - Right Wrist Blood Culture - Preliminary No growth in 48 hours. 12/04/24 12:00 Blood Culture (Wb) - Venous Blood Culture - Preliminary No growth in 48 hours. 12/04/24 11:57 Urine Catheter - Lau Urine Culture - Final Culture exhibits no growth. 12/04/24 11:56 Mucosa - Nose SARS-CoV-2, Influenza & RSV (PCR) - Final Influenzae A Rhythm Strip Rhythm Strip: Sinus Tach Rate: 120 Ectopy: None Physical Exam Narrative General: Alert, knows it is 2024 but was not sure where she was, no apparent distress HEENT: Atraumatic Eyes: Anicteric, normal conjunctiva, extraocular movements grossly intact Neck: Supple Respiratory: Crackles at left lower lung base, fairly normal respiratory effort Cardiovascular: Regular rate and rhythm GI: Soft, nontender, nondistended Extremities: Moving lower extremities on bed but feels that they are weak Musculoskeletal: Moving extremities in bed Neuro: No overt focal neurological deficits on exam Skin: No rashes appreciated Psych: Cooperative Assessment & Plan Assessment/Plan (1) Influenza A: (2) Acute hypoxic respiratory failure: PLAN: Plan # Acute hypoxic respiratory failure secondary to influenza A with possible aspiration pneumonia -Patient presented with influenza A and CT of the chest with concern for early left lower lobe infiltrate -Patient on Tamiflu and Levaquin -On 2 to 3 L O2 this a.m. but there is concern for repeat aspiration so patient bumped up to 4 L and made n.p.o. -Once more alert patient have repeat speech evaluation, my exam she was able to wake up and talk with me, confused about where she was but knew it was 2024 #Hypertension -Patient on 20 of lisinopril, 50 metoprolol, 5 of amlodipine, these were resumed 12/06, continue to monitor and titrate as indicated #CP -Supportive care -PT/OT # Recent DVT and PE -Imaging had shown extensive left lower extremity DVT as well as a right popliteal DVT and segmental and subsegmental PE, patient on Eliquis # History of urinary retention -Patient with Lau catheter in place #DVT ppx: Patient on Eliquis Sonali Rousseau MD Time spent in the patient's overall evaluation, decision-making process, review of diagnostic data, adjustment of management, discussion with other providers, nursing and ancillary staff involved in patient's care documentation, 37 Minutes Charges/Coding Visit Charges Inpatient E&M: 63274 Subs Hosp L2
[2024-12-07] MEDS: amLODIPine 5 MG Tablet PO (08:37)
[2024-12-07] MEDS: Metoprolol(XL)Succ 50 MG Tablet PO (08:37)
[2024-12-07] MEDS: Lisinopril 20 MG Tablet PO (08:37)
[2024-12-07] MEDS: Acetaminophen 325 MG Tablet 650 MG PO ×2 (08:43→18:23)
[2024-12-07 08:51] LABS: Anion Gap 11 (5-15); BUN 19 mg/dL (4-19); BUN/Creat Ratio 41.1 RATIO (10-20); Calcium,Total 7.7 mg/dL (7.6-11.0); Carbon Dioxide 22.5 mmol/L (21.0-32.0); Chloride 105 mmol/L (98-108); Creatinine, Serum 0.46 mg/dL (0.70-1.20); EST Glomerular Filtration Rate 98 (>60); Estimated Creatinine Clearance 55.13 ml/min (50-250); Glucose 94 mg/dL (70-99); Potassium 3.4 mmol/L (3.3-5.1); Sodium Level 139 mmol/L (133-145)
[2024-12-07] MEDS: 0.9% Saline Lock 10 ML Syringe IV ×2 (09:16→18:15)
[2024-12-07] MEDS: levoFLOXacin IV 750 MG/150 ML BAG 100 MG IV (09:16)
--- NOTE | 2024-12-07 09:25 | RAD_ITS ---
EXAM: XR Chest, 1 View CLINICAL INDICATION: TECHNIQUE: Frontal view of the chest. COMPARISON: No relevant prior studies available. FINDINGS: LUNGS AND PLEURAL SPACES: Left basilar atelectasis or pneumonia. No pneumothorax. HEART: Unremarkable. No cardiomegaly. MEDIASTINUM: Unremarkable. Normal mediastinal contour. BONES/JOINTS: Unremarkable. No acute fracture. RAD/Chest 1 View (Portable) IMPRESSION: Left basilar atelectasis or pneumonia. Reading Location: [facility]
--- NOTE | 2024-12-07 11:53 | CASEMGMT ---
Discharge Planning Per Bettie @ [facility], pt can return w/o precert. SW updated. Elisabeth Daniels DC Planning Asst.
--- NOTE | 2024-12-07 14:53 | CHAPLAIN ---
Type of Pastoral Visit _x__ Initial Visit ___ Follow-up Visit ___ On-call Visit ___ General Patient Visit ___ Spiritual Assessment ___ Family Conference ___ Bereavement ___ Rapid Response ___ Code Blue ___ Other (describe below) Pastoral Care Referral From _x__ Patient ___ Family ___ Nurse ___ Physician ___ Pulverizer Tender ___ Fraternity Adviser ___ Other (describe below) Sacrament/Intervention _x__ Active listening ___ Anointing ___ Rastafarian ___ Bereavement ___ Communion ___ Chandni exploration ___ ___ Life review _x__ Prayer ___ Reconciliation ___ Sacrament of Sick _x__ Supportive presence ___ Wedding ___ Other (describe below) Pastoral Comments patient was recently seen for several visits at another hospital; pt had made request for this cash register mechanic to see her; pt is greeted and she gives update on her situation; pt admits that 'I am going to have to accept that I may never walk and that I may not get better; pt has had a difficult time accepting her situation because I have always done what I needed to do to get better and I did get better; pt has limited family for support; pt is uncertain about what will happen next but states I am so glad to see you and you made my day; prayer is offered as well
[2024-12-07] MEDS: 0.9% Normal Saline (1000mL) 1,000 ML 50 ML IV (18:15)
[2024-12-07] MEDS: Morphine 2 MG/ML Syringe IV (19:50)
[2024-12-07] MEDS: 0.9 % NaCl (Sterile) Posiflush 10 mL IV (19:53)
[2024-12-07] MEDS: APIXABAN 5 MG TABLET PO (21:35)
[2024-12-07] MEDS: Oseltamivir Phosphate 30 MG Capsule PO (21:35)
[2024-12-07] MEDS: RisperiDONE 0.5 MG Tablet PO (21:36)
[2024-12-08] VITALS (16 sets, daily range): BP systolic 138–168; BP diastolic 68–117; PULSE 87–152; RESP 18–33; TEMP 36.6–38.7; O2SAT 92–97; BMI 24.7
[2024-12-08 05:52] LABS: Absolute Lymphocyte Count 1.35 X10^3/uL (0.83-4.51); Basophil# 0.01 X10^3/uL; Basophil% 0.2 % (0-1); Hematocrit 28.4 % (37-47); Hemoglobin 8.9 g/dL (12.0-15.0); Lymphocyte # 1.35 X10^3/ul (0.83-4.51); Mean Corp Hgb Conc 31.3 g/dL (32-36); Mean Corpuscular Hgb 29.5 pg (27.0-32.0); Mean Platelet Vol. 9.2 fl (6.2-12.0); Monocyte# 0.47 X10^3/uL; NRBC Flagged by Analyzer 0 % (0-5); Neutrophil # 4.01 X10^3/uL (2.7-7.7); Neutrophil % 68.3 % (47-70); Platelet Count 315 K/mm3 (150-450); RBC Distribution Width SD 51.7 fl (35.1-43.9); Red Blood Count 3.02 M/mm3 (4.2-5.4); White Blood Count 5.9 K/mm3 (4.4-11.0)
[2024-12-08] MEDS: Pregabalin 50 MG Capsule PO ×2 (06:24→21:28)
[2024-12-08 06:26] LABS: Anion Gap 11 (5-15); BUN 16 mg/dL (4-19); BUN/Creat Ratio 40.3 RATIO (10-20); Calcium,Total 7.8 mg/dL (7.6-11.0); Chloride 104 mmol/L (98-108); EST Glomerular Filtration Rate 102 (>60); Estimated Creatinine Clearance 55.13 ml/min (50-250); Glucose 80 mg/dL (70-99); Potassium 3.4 mmol/L (3.3-5.1); Sodium Level 137 mmol/L (133-145)
--- NOTE | 2024-12-08 08:20 | PN.HOSP_ITS ---
Reason for Visit Reason for Visit: Diagnoses Influenza due to other identified influenza virus with other respiratory manifestations (12/04/24) Acute respiratory failure with hypoxia (12/04/24) Subjective Subjective Patient resting in bed, appears to have a dry mouth, does report some shortness of breath but said this has been going on and not necessarily something acute in nature Objective Data Objective Data Vital Signs: Vital Signs Temp Pulse Resp BP Pulse Ox O2 Del Method O2 Flow Rate 97.8 F 91 20 H 144/72 H 95 Nasal Cannula 4 12/08/24 04:00 12/08/24 04:00 12/08/24 04:00 12/08/24 04:00 12/08/24 01:13 12/08/24 04:00 12/08/24 04:00 FiO2 55 12/04/24 15:07 Oxygen Flow Rate (L/min) 4 Oxygen Delivery Method Nasal Cannula Weight: 69.7 kg Body Mass Index (BMI) 24.7 Intake & Output: Intake and Output for Last 24 Hours 12/07/24 12/07/24 12/08/24 00:59 23:59 23:59 Intake Total 1730 / 1730 480 / 480 0 / 0 Output Total 550 / 550 250 / 500 475 / 475 Balance 1180 / 1180 230 / -20 -475 / -475 Lab / Micro Data 12/08/24 05:29 12/08/24 05:29 Labs: Laboratory Results - last 24 hr 12/07/24 07:22: Sodium 139, Potassium 3.4, Chloride 105, Carbon Dioxide 22.5, Anion Gap 11, BUN 19, Creatinine 0.46 L, Estim Creat Clear Calc 55.13, Est GFR (MDRD) Non-Af 98, BUN/Creatinine Ratio 41.1 H, Glucose 94, Calcium 7.7 12/08/24 05:29: WBC 5.9, RBC 3.02 L, Hgb 8.9 L, Hct 28.4 L, MCV 94.0, MCH 29.5, MCHC 31.3 L, RDW Std Deviation 51.7 H, RDW Coeff of Roselyn 15.0 H, Plt Count 315, MPV 9.2, Immature Gran % (Auto) 0.500, Neut % (Auto) 68.3, Lymph % (Auto) 23.0, [place] % (Auto) 8.0, Eos % (Auto) 0.0, Baso % (Auto) 0.2, Absolute Neuts (auto) 4.0, Absolute Lymphs (auto) 1.35, Nucleated RBC % 0, Sodium 137, Potassium 3.4, Chloride 104, Carbon Dioxide 22.0, Anion Gap 11, BUN 16, Creatinine 0.40 L, Estim Creat Clear Calc 55.13, Est GFR (MDRD) Non-Af 102, BUN/Creatinine Ratio 40.3 H, Glucose 80, Calcium 7.8 Micro: Microbiology 12/04/24 12:31 Blood Culture (Wb) - Right Wrist Blood Culture - Preliminary No growth in 48 hours. 12/04/24 12:00 Blood Culture (Wb) - Venous Blood Culture - Preliminary No growth in 48 hours. 12/04/24 11:57 Urine Catheter - Lau Urine Culture - Final Culture exhibits no growth. 12/04/24 11:56 Mucosa - Nose SARS-CoV-2, Influenza & RSV (PCR) - Final Influenzae A Radiography Diagnostic Testing: Radiology Impression Chest X-Ray 12/07/24 09:25 IMPRESSION: Left basilar atelectasis or pneumonia. Reading Location: [facility] Rhythm Strip Rhythm Strip: Sinus Tach Rate: 120 Ectopy: None Physical Exam Narrative General: Appears more tired today, slightly less overtly interactive HEENT: Atraumatic Eyes: Anicteric, normal conjunctiva, extraocular movements grossly intact Neck: Supple Respiratory: Somewhat coarse at bases with some transmitted upper airway sound, fairly normal respiratory effort Cardiovascular: Regular rate and rhythm GI: Soft, nontender, nondistended Extremities: Moving lower extremities on bed but feels that they are weak Musculoskeletal: Moving extremities in bed Neuro: No overt focal neurological deficits on exam Skin: No rashes appreciated Psych: Attempts to be cooperative Assessment & Plan Assessment/Plan (1) Influenza A: (2) Acute hypoxic respiratory failure: PLAN: Plan # Acute hypoxic respiratory failure secondary to influenza A with possible aspiration pneumonia -Patient presented with influenza A and CT of the chest with concern for early left lower lobe infiltrate -Patient on Tamiflu and Levaquin -On 2 to 3 L O2 this a.m. but there is concern for repeat aspiration so patient bumped up to 4 L and made n.p.o. -Once more alert patient have repeat speech evaluation, my exam she was able to wake up and talk with me, confused about where she was but knew it was 2024 -12/08: Patient on Levaquin, speech study today showed patient with aspiration to multiple thicknesses and GI consult recommended, this was placed, further dispo pending consult # Recent DVT and PE -Imaging had shown extensive left lower extremity DVT as well as a right popliteal DVT and segmental and subsegmental PE, patient on Eliquis -12/08: Patient has been n.p.o. and is unclear when she will be cleared for p.o., given recent DVT and PE will switch her to subcu Lovenox in the meantime #Hypertension -Patient on 20 of lisinopril, 50 metoprolol, 5 of amlodipine, these were resumed 12/06, continue to monitor and titrate as indicated -12/08: Blood pressure 144/72 however patient has not received her medications as she is n.p.o., continue to monitor, can consider IV if needed if patient will have prolonged n.p.o. #Continued aspiration -12/08: Speech following, patient failed speech study recommended GI consult so GI has been consulted, further dispo pending consult. Patient remains n.p.o., Patient on IV fluids at this time especially given she appears to have dried membranes Chronic medical problems: #CP -Supportive care -PT/OT # History of urinary retention -Patient with Lau catheter in place #DVT ppx: Patient on Eliquis Sonali Rousseau MD Time spent in the patient's overall evaluation, decision-making process, review of diagnostic data, adjustment of management, discussion with other providers, nursing and ancillary staff involved in patient's care documentation, 36 Minutes Charges/Coding Visit Charges Inpatient E&M: 67082 Subs Hosp L2
[2024-12-08] MEDS: Enoxaparin 80 MG/0.8 ML Syringe 70 MG SC ×2 (09:47→21:27)
[2024-12-08] MEDS: levoFLOXacin IV 750 MG/150 ML BAG 100 MG IV (09:50)
--- NOTE | 2024-12-08 11:40 | CASEMGMT ---
Social Work SW called [facility] to inquire if they have POA papers on file, message left for Jojo in admissions. Also, pt will not need precert if she returns by 12/11 as this is when the [employer] Waiver ends. LÓPEZ Hawk
--- NOTE | 2024-12-08 11:51 | SP.MBSS_ITS ---
Modified Barium Swallow Patient Information Study Date: 12/08/24 Study Time: 10:40 Direct Billable Minutes: 90 Total Minutes procedure & reportin Diagnosis: Cerebral Palsy G80.9; Respiratory failure J96.01 Referring Physician: Sonali Rousseau Reason for Referral: Assess swallow function, assess risk for aspiration, and determine recommendations for least restrictive diet textures and compensatory strategies to improve safety of swallow. Medical History: The pt is a 79 y/o female who presented to [facility] ED on 12/04/2024 with altered mentation, nausea/vomiting, and fevers. Patient recently had a prolonged hospitalization at this facility from 10/30/24-11/11/24 that was complicated by parainfluenza virus, Streptococcus bacteremia, intractable back pain, urinary retention and falls. She was eventually discharged to [facility]. She was admitted to the hospital side there at [place] from 11/21/24-11/30/24. Hosp italization was complicated by hyponatremia, acute DVT/PE, UTI and worsening iron deficiency anemia. Was noted that she was progressing poorly in their TCU prior to that hospitalization. She was discharged to [facility] on 11/30/24. On the morning of this current admission, pt experienced AMS and 2 episodes of vomiting w/ concern for aspiration, so she was brought in for evaluation. She was found to be positive for influenza A. CT chest abdomen pelvis showed increased markings at bilateral lung bases but no significant aspiration pneumonia versus pneumonitis noted; abdomen was largely unremarkable. ST consulted due to concerns for aspiration pneumonia. BSE recommended puree textures / thin liquids. 12/07/2024 pt became febrile and lethargic. 12/07/2024 The patient was febrile and lethargic. She was not appropriate for po trials w/ BOARD CERTIFIED ARTS THERAPIST or MBSS. BOARD CERTIFIED ARTS THERAPIST recommended NPO. Today, she is more awake, but confused. Pt has sufficient alertness for participation in MBSS to objectively assess aspiration risk to determine recommendations for LRD textures. The patient is familiar to this BOARD CERTIFIED ARTS THERAPIST from recent hospitalization October 2024 for fall w/ difficulty walking, parainfluenza virus, and tachycardia. The patient participated in MBSS 11/05/2024 recommending Minced and Moist textures (IDDSI Level 5) and Holland-thick Liquids; Compensatory Strategies: Small Bites, Small Sips, Slow Rate, Alternate bites/solids and sips/liquids, Sitting upright and Remain sitting upright for 30 minutes after PO intake; Supervision: Total Feed. Pt was then downgraded at retirement because her charting from the [facility] stated she was on a puree / nectar (mildly) thick liquid diet. Current Diet Ordered: NPO Dentition: Natural Teeth and Missing Teeth Mental Status: Impaired Respiratory Status: Oxygenating on 4L/M nasal cannula Penetration-Aspiration Scale Penetration-Aspiration Scale: OBJECTIVE ASSESSMENT OF SWALLOW FUNCTION (QUANTITATIVE ? PER TRIAL): PENETRATION / ASPIRATION SCALE (DONALDSON): 1 = does not enter airway 2 = enters airway/above vocal folds/ejected 3 = enters airway/above vocal folds/not ejected 4 = enters airway/contacts vocal folds/ejected 5 = enters airway/contacts vocal folds/not ejected 6 = enters airway/below vocal folds/ejected 7 = enters airway/below vocal folds/not ejected despite effort 8 = enters airway/below vocal folds/no effort VIDEOFLOROSCOPIC SCALE SCORE (DONALDSON): Grade I = aspiration of material that has penetrated into the laryngeal vestibule, intact cough reflex Grade II = aspiration < 10 % of the bolus, intact cough reflex Grade III = aspiration of < 10 % of the bolus, reduced cough reflex or aspiration of > 10 % of the bolus, intact cough reflex Grade IV = aspiration of > 10 % of the bolus, reduced cough reflex Penetration-Aspiration Scale Score Holland Thick Liquid via teaspoon: Result: 1= does not enter airway Holland Thick Liquid via teaspoon Trial 2: Result: 3= enters airways/above vocal folds/not ejected [place] Thick Liquid via large single sip: cup: Result: 3= enters airways/above vocal folds/not ejected Comment: Post prandial aspiration of this trial w/ weak, delayed reflexive cough. Pudding via teaspoon: Result: 7= enters airways/below vocal folds/not ejected despite effort Thin Liquid via teaspoon: Result: 6= enters airway/below vocal folds/ejected Comment: Reflexive cough appeared to ejected aspirated contrast; however, significant barium residues remained in the laryngeal vestibule. Honey Thick Liquid via teaspoon: Result: 2= enter airway/above vocal folds/ejected Honey Thick Liquid via teaspoon Trial 2: Result: 3= enters airways/above vocal folds/not ejected Oral Phase Labial Seal: Interlabial escape, no progression to anterior lip Tongue Control During Bolus Hold: Posterior escape of less than half of bolus Bolus Transport/Lingual Motion: Repetitive/disorganized tongue motion Oral Residue: Majority of bolus remaining Pharyngeal Phase Initiation of Pharyngeal Swallow: Bolus head at posterior laryngeal surgace of epiglottis Soft Palate Elevation: No bolus between soft palate and pharyngeal wall Laryngeal Elevation: Partial superior movement thyroid cart/partial apprx aryt- epig petiole Anterior Hyoid Excursion: Partial anterior movement Epiglottic Movement: No inversion Laryngeal Vestibule Closure at Height of Swallow: Incomplete; narrow column of air/contrast in laryngeal vestibule Pharyngeal Stripping Wave: Present - diminished Pharyngoesophageal Segment Opening: Parital distension and partial duration; parital obstruction of flow Tongue Base Retraction: Narrow column of contrast between tongue base & post. pharyngeal wall Pharyngeal Residue: Collection of residue within or on pharyngeal structures Esophageal Phase Esophageal Clearance: Esophageal retention Diagnosis/Impression Diagnosis: Mod oral dysphagia R13.11; Severe pharyngoesophageal dysphagia R13.13 Impression: The oral phase is marked by... -Decreased bolus control w/ posterior loss of <1/2 of liquid trials to the pharynx prior to swallow onset. -Disorganized tongue motion for A-P transport. -Piecemeal deglutition of pudding and cookie requiring multiple swallows to clear mild-moderate oral residues. -Did not assess cookie due to concerns for choking given deficits in pharyngeal motility and clearance through UES. The pharyngeal phase is primarily marked by... -Moderate pharyngeal residue due to decreased pharyngeal motility w/ decreased stripping wave, TB retraction, and UES opening/duration. -Decreased airway closure due to decreased laryngeal elevation, no epiglottic inversion, decreased anterior hyoid excursion. -Aspiration of mildly/nectar thick after the swallow w/ delayed reflexive cough, aspiration of pudding and thin liquids during the swallow w/ reflexive cough effectively clearing aspirated thin barium from the airway; however, residues remained in the laryngeal vestibule after reflexive coughing. The esophageal phase is marked by... -Narrow UES and upper esophageal opening, negatively impacting bolus clearance and increasing risk for post prandial aspiration. Recommendations Diet: NPO Recommend Repeat Modified Barium Swallow: Yes (Repeat MBSS after GI intervention prior to diet advancement) Need for Skilled Speech Therapy Services: Yes Comment: Continue w/ dysphagia treatment and re-evaluation during acute stay... -Implement oropharyngeal exercise program (lingual resistance, lingual coordination, effortful swallow, Enedelia, Aliya). -Repeat MBSS after GI intervention prior to diet advancement to determine safest, LRD textures. -ST recommended at discharge. Recommended Referrals: GI Consult (Poor upper esophageal sphincter opening/duration) Education Completed: 1. Described result of evaluation., 2. Pt understands evaluation & agrees with goals and treatment plan. and 7. Pt requires further education on strategies & risks. Status Active ST Patient: Active Contact Information [facility] Speech Therapy:: Lexy Majano M.A. CCC-BOARD CERTIFIED ARTS THERAPIST? Speech-Language Pathologist?? [facility] [address] [place] [address]? [email or web address]?? [phone]
--- NOTE | 2024-12-08 12:51 | CASEMGMT ---
Social Work SW spoke w/therapy, pt is asking for her sister and niece. SW called pt's sister Kadi, let her know that pt is asking for her and Key. Kadi states she and Key will be here later this afternoon, about 4pm. SW met w/pt, let her know that Kadi and Key will be in later today at 4pm. SW offered support to pt as she states is having a difficult time w/her health issues. SW remains available for support to pt as needed. LÓPEZ Hawk
--- NOTE | 2024-12-08 14:24 | CASEMGMT ---
Social Work SW did get a call back from [facility], they do not have POA papers on file. SW called pt's sister Kadi back, she does have POA papers and will bring them with her this afternoon. LÓPEZ Hawk
[2024-12-08] MEDS: Acetaminophen 650 MG Suppository RC (16:04)
[2024-12-08] MEDS: 0.9% Normal Saline (500mL Bag) 500 ML 999 ML IV (16:12)
--- NOTE | 2024-12-08 17:28 | CON.PCM.GI_ITS ---
HPI Consult Data Date of Consult: 12/08/24 HPI Narrative Reason for Consultation: Aspiration pneumonia HPI Narrative: SOUMYA MCFARLANE, is a 79-year-old female presenting from [facility] facility with history of stroke causing tachycardia as well as recent hospitalization for parainfluenza virus, falls, Streptococcus alactolyticus bacteremia (treated with cefdinir), intractable back pain and and urinary retention (initially treated with Lau catheter but was removed at time of discharge) presenting for vomiting and altered mental status as well as fever. Patient is on Eliquis per review of her MAR, but is unclear why. She reportedly threw up at 1010 and 1045 this morning. They are concerned that she aspirated. She is no to be febrile per EMS. Is unclear how long the symptoms been going on. Per nursing facility report there is influenza and norovirus going around the facility. No other history obtained. Patient is minimally verbal at this time. CT chest showed increased markings at the lung base concerning for atelectasis versus pneumonia but otherwise fairly clear. She was on Airvo but now weaned down to oxygen by nasal cannula- 4L. On IV Solu-Medrol, IV Levaquin and Tamiflu. Speech therapy also consulted due to concerns for dysphagia. Recommended Referrals: GI Consult (Poor upper esophageal sphincter opening/duration)Currently NPO. Titrate oxygen to maintain saturation above 90%. Breathing treatments bronchodilators. [facility] Medical History Anxiety Depression Osteoporosis Non-smoker Cerebral palsy Cataract Palpitations Elevated blood pressure reading without diagnosis of hypertension Essential (primary) hypertension Home Medications ?Medication ?Instructions ?Recorded ?Last Taken ?Type garlic 200 mg tablet 200 mg PO DAILY 01/16/18 Unk nown History cholecalciferol (vitamin D3) 25 1,000 unit PO DAILY Unknown History mcg (1,000 unit) tablet metoprolol succinate 50 mg 50 mg PO DAILY #90 TABLETS 01/22/24 Unknown Rx tablet,extended release 24 hr amlodipine 5 mg tablet 5 mg PO DAILY #90 tabs 10/05 Unknown Rx risperidone 0.5 mg tablet 0.5 mg PO QHS #0 tabs Unknown Rx tamsulosin 0.4 mg capsule 0.4 mg PO DAILY@1730 #0 caps 11/11/24 Unknown Rx apixaban 5 mg tablet (Eliquis) 5 mg PO BID 12/04/24 Un known History ferrous sulfate 325 mg (65 mg 325 mg PO BID 12/04/24 U nknown History iron) tablet (Feosol) lisinopril 20 mg tablet 20 mg PO DAILY 12/04/24 Unkn own History pregabalin 50 mg capsule (Lyrica) 50 mg PO TID 5 Unknown History sennosides 8.6 mg-docusate sodium 1 tab-cap PO BID 04/23 Unknown History 50 mg tablet (Stimulant Laxative Plus) Allergy/AdvReac Type Severity Reaction Status Date / Time amantadine (From Symmetrel) AdvReac Severe Unknown Verified 10/30/24 11:00 amoxicillin (From Augmentin) AdvReac Severe Unknown Verified 10/30/24 11:00 clavulanic acid (From AdvReac Severe Unknown Verified 10/30/24 11:00 Augmentin) erythromycin base AdvReac Severe Unknown Verified 10/30/24 11:00 lorazepam (From Ativan) AdvReac restless Verified 10/30/24 17:39 Family History Father Diabetes Hypertension Mother alzhemier Osteoporosis Surgical History History of tonsillectomy History of hysterectomy History of hip replacement Social History Smoking Status: Never smoker alcohol intake: never substance use type: does not use caffeine: Yes Type: coffee Number of servings: 3 what type of physical activity do you participate in: none seatbelt use: always do you feel safe at home: Yes ROS ROS Narrative 10 or more systems reviewed with the patient and are negative except as per HPI Physical Exam Narrative HEENT: Atraumatic Eyes: Anicteric, normal conjunctiva, extraocular movements grossly intact Neck: Supple Respiratory: Somewhat coarse at bases with some transmitted upper airway sound, fairly normal respiratory effort Cardiovascular: Regular rate and rhythm GI: Soft, nontender, nondistended Extremities: Moving lower extremities on bed but feels that they are weak Musculoskeletal: Moving extremities in bed Neuro: No overt focal neurological deficits on exam Skin: No rashes appreciated Psych: Attempts to be cooperative Lab / Micro Data 12/08/24 05:29 12/08/24 05:29 Labs: Laboratory Results - last 24 hr 12/08/24 05:29: WBC 5.9, RBC 3.02 L, Hgb 8.9 L, Hct 28.4 L, MCV 94.0, MCH 29.5, MCHC 31.3 L, RDW Std Deviation 51.7 H, RDW Coeff of Roselyn 15.0 H, Plt Count 315, MPV 9.2, Immature Gran % (Auto) 0.500, Neut % (Auto) 68.3, Lymph % (Auto) 23.0, [place] % (Auto) 8.0, Eos % (Auto) 0.0, Baso % (Auto) 0.2, Absolute Neuts (auto) 4.0, Absolute Lymphs (auto) 1.35, Nucleated RBC % 0, Sodium 137, Potassium 3.4, Chloride 104, Carbon Dioxide 22.0, Anion Gap 11, BUN 16, Creatinine 0.40 L, Estim Creat Clear Calc 55.13, Est GFR (MDRD) Non-Af 102, BUN/Creatinine Ratio 40.3 H, Glucose 80, Calcium 7.8 Rhythm Strip Rhythm Strip: Sinus Tach Rate: 120 Ectopy: None Assessment & Plan Assessment/Plan (1) Influenza A: (2) Acute hypoxic respiratory failure: PLAN: Plan #Acute hypoxic respiratory failure due to acute influenza infection and concern for aspiration pneumonia * patient remains on oxygen and is down to 3L today * influenza screen was positive in the ED * CT chest showed increased markings at the lung base concerning for atelectasis versus pneumonia but otherwise fairly clear. * On IV Solu-Medrol, IV Levaquin and Tamiflu. Speech therapy also consulted due to concerns for dysphagia. * She was on modified diet per speech therapy * Titrate oxygen to maintain saturation above 90%. Breathing treatments with bronchodilators. * #History of cerebral palsy with failure to thrive * Has had recent prolonged hospitalizations and has gradually gotten weaker. * PT OT on board. Fall precautions. * #History of DVT and PE * Diagnosed recently during hospitalization at [facility]. * Imaging done showed extensive left lower extremity DVT, right popliteal DVT and segmental and subsegmental DVT. * On Eliquis. * #History of urinary retention: Lau catheter in situ #Hypertension: On lisinopril, metoprolol and amlodipine DVT prophylaxis: Not indicated as patient is on Eliquis. Disposition: transfer patient to PCU
[2024-12-08 18:00] LABS: Color, Urine Yellow (Yellow); Glucose, Dipstick Normal (Normal); Leukocyte Esterase-Dipstick 25 /ul (Negative); Mucous, Urine 0 SEEN /hpf (<or=2+); Nitrite-Dipstick Negative (Negative); Occult Blood-Urine 250 /ul (Negative); Protein-Dipstick 100 mg/dl (Negative); Urine Bilirubin Dipstick Negative (Negative); Urine Clarity Sl. Cloudy (Clear); Urine Urobilinogen Normal (Normal)
[2024-12-08 18:06] LABS: Ketone-Dipstick 150 mg/dl (Negative)
[2024-12-08 18:36] LABS: Amorphous Sediment 2+ URATE; Bacteria RARE /hpf (None Seen); Red Blood Cells-Urine > 100 SEEN /hpf (0-5); Squamous Epithelial Cells - UA 0-5 SEEN /hpf (5-10); White Blood Cells 0-5 SEEN /hpf (0-5)
--- NOTE | 2024-12-08 19:24 | PCM.HOSP.N ---
Hospitalist Note received message regarding pts variable HR-at times 130's or 140, pt has been intermittently tachycardic over the past two days in sinus rhythm, d/t prolonged NPO (remains NPO d/t failing swallow eval) she has been unable to get her home metoprolol, will switch to IV metoprolol. Pt not hypotensive and temp improved from last check. O2 94% on 4L NC. UA not suggestive of UTI.
[2024-12-08] MEDS: Metoprolol Tartrate 5 MG/5 ML Vial 2.5 MG IV (20:11)
--- NOTE | 2024-12-08 21:00 | NURSING ---
pt moved to room [id number]. sister, eric, informed via telephone.
[2024-12-08] MEDS: RisperiDONE 0.5 MG Tablet PO (21:27)
[2024-12-08] MEDS: Oseltamivir Phosphate 30 MG Capsule PO (21:28)
[2024-12-08] MEDS: Senna/Docusate Sodium 1 Tablet PO (21:28)
[2024-12-09] VITALS (22 sets, daily range): BP systolic 118–178; BP diastolic 60–91; PULSE 88–144; RESP 16–32; TEMP 36.4–36.9; O2SAT 90–99
[2024-12-09] MEDS: 0.9% Normal Saline (1000mL) 1,000 ML 50 ML IV ×2 (02:44→16:28)
[2024-12-09] MEDS: Metoprolol Tartrate 5 MG/5 ML Vial 2.5 MG IV ×3 (04:38→23:45)
[2024-12-09 04:47] LABS: Absolute Lymphocyte Count 1.54 X10^3/uL (0.83-4.51); Absolute Neutrophil Count 4.4 X10^3/uL (2.0-7.7); Basophil# 0.02 X10^3/uL; Basophil% 0.3 % (0-1); Eosinophil# 0.01 X10^3/uL; Eosinophils% 0.2 % (0-5); Hematocrit 30.6 % (37-47); Lymphocyte # 1.54 X10^3/ul (0.83-4.51); Lymphocyte % 23.4 % (19-41); Mean Corp Hgb Conc 32.7 g/dL (32-36); Mean Corpuscular Hgb 30.3 pg (27.0-32.0); Mean Corpuscular Volume 92.7 fL (81-99); Mean Platelet Vol. 10.1 fl (6.2-12.0); Monocyte# 0.58 X10^3/uL; Monocyte% 8.8 % (0-10); NRBC Flagged by Analyzer 0 % (0-5); Neutrophil # 4.39 X10^3/uL (2.7-7.7); Neutrophil % 66.5 % (47-70); Platelet Count 318 K/mm3 (150-450); RBC Distribution Width CV 14.6 % (11.6-14.6); RBC Distribution Width SD 49.4 fl (35.1-43.9); White Blood Count 6.6 K/mm3 (4.4-11.0)
[2024-12-09 05:08] LABS: Anion Gap 13 (5-15); BUN 10 mg/dL (4-19); BUN/Creat Ratio 27.9 RATIO (10-20); Calcium,Total 7.7 mg/dL (7.6-11.0); Carbon Dioxide 20.1 mmol/L (21.0-32.0); Chloride 104 mmol/L (98-108); Creatinine, Serum 0.37 mg/dL (0.70-1.20); EST Glomerular Filtration Rate 104 (>60); Estimated Creatinine Clearance 55.13 ml/min (50-250); Glucose 76 mg/dL (70-99); Potassium 3.3 mmol/L (3.3-5.1); Sodium Level 137 mmol/L (133-145)
--- NOTE | 2024-12-09 07:43 | PCM.PN.HOSP ---
Reason for Visit Reason for Visit: Diagnoses Influenza due to other identified influenza virus with other respiratory manifestations (12/04/24) Acute respiratory failure with hypoxia (12/04/24) Subjective Subjective Patient resting in bed, reports she got up and got a bath this morning but it was cold so she went back to bed, patient confused Objective Data Objective Data Vital Signs: Vital Signs Temp Pulse Resp BP Pulse Ox O2 Del Method O2 Flow Rate 98.2 F 90 21 H 138/81 H 93 Room Air 4 12/09/24 06:00 12/09/24 06:00 12/09/24 06:00 12/09/24 06:00 12/09/24 06:00 12/09/24 06:00 12/08/24 20:24 FiO2 55 12/04/24 15:07 Oxygen Flow Rate (L/min) 4 Oxygen Delivery Method Room Air Weight: 69.7 kg Body Mass Index (BMI) 24.7 Intake & Output: Intake and Output for Last 24 Hours 12/07/24 12/08/24 12/09/24 23:59 23:59 23:59 Intake Total 480 / 480 650 / 675 1025 / 1025 Output Total 250 / 500 825 / 1100 875 / 875 Balance 230 / -20 -175 / -425 150 / 150 Lab / Micro Data 12/09/24 03:52 12/09/24 03:52 Labs: Laboratory Results - last 24 hr 12/08/24 17:51: Urine Color Yellow, Urine Clarity Sl. Cloudy, Urine pH 5.0, Ur Specific [place] 1.020, Urine Protein 100 H, Urine Glucose (UA) Normal, Urine Ketones 150 A*, Urine Occult Blood 250 H, Urine Nitrite Negative, Urine Bilirubin Negative, Urine Urobilinogen Normal, Ur Leukocyte Esterase 25 H, Urine RBC > 100 SEEN, Urine WBC 0-5 SEEN, Ur Squamous Epith Cells 0-5 SEEN, Amorphous Sediment 2+ URATE, Urine Bacteria RARE, Urine Mucus 0 SEEN 12/09/24 03:52: WBC 6.6, RBC 3.30 L, Hgb 10.0 L, Hct 30.6 L, MCV 92.7, MCH 30.3, MCHC 32.7, RDW Std Deviation 49.4 H, RDW Coeff of Roselyn 14.6, Plt Count 318, MPV 10.1, Immature Gran % (Auto) 0.800, Neut % (Auto) 66.5, Lymph % (Auto) 23.4, Rich % (Auto) 8.8, Eos % (Auto) 0.2, Baso % (Auto) 0.3, Absolute Neuts (auto) 4.4, Absolute Lymphs (auto) 1.54, Nucleated RBC % 0, Sodium 137, Potassium 3.3, Chloride 104, Carbon Dioxide 20.1 L, Anion Gap 13, BUN 10, Creatinine 0.37 L, Estim Creat Clear Calc 55.13, Est GFR (MDRD) Non-Af 104, BUN/Creatinine Ratio 27.9 H, Glucose 76, Calcium 7.7 Micro: Microbiology 12/04/24 12:31 Blood Culture (Wb) - Right Wrist Blood Culture - Preliminary No growth in 48 hours. 12/04/24 12:00 Blood Culture (Wb) - Venous Blood Culture - Preliminary No growth in 48 hours. 12/04/24 11:57 Urine Catheter - Lau Urine Culture - Final Culture exhibits no growth. 12/04/24 11:56 Mucosa - Nose SARS-CoV-2, Influenza & RSV (PCR) - Final Influenzae A Rhythm Strip Rhythm Strip: Sinus Tach Rate: 120 Ectopy: None Physical Exam Narrative General: Pleasantly confused HEENT: Atraumatic Eyes: Anicteric, normal conjunctiva, extraocular movements grossly intact Neck: Supple Respiratory: Somewhat coarse at bases, fairly normal respiratory effort Cardiovascular: Regular rate GI: Soft, nontender, nondistended Extremities: Moving extremities in bed, no significant pitting edema Musculoskeletal: Moving extremities in bed Neuro: No overt focal neurological deficits on exam the patient not able to thoroughly participate in exam Skin: No rashes appreciated Psych: Attempts to be cooperative Assessment & Plan Assessment/Plan (1) Influenza A: (2) Acute hypoxic respiratory failure: PLAN: Plan # Acute hypoxic respiratory failure secondary to influenza A with possible aspiration pneumonia -Patient presented with influenza A and CT of the chest with concern for early left lower lobe infiltrate -Patient on Tamiflu and Levaquin -On 2 to 3 L O2 this a.m. but there is concern for repeat aspiration so patient bumped up to 4 L and made n.p.o. -Once more alert patient have repeat speech evaluation, my exam she was able to wake up and talk with me, confused about where she was but knew it was 2024 -12/08: Patient on Levaquin, speech study today showed patient with aspiration to multiple thicknesses and GI consult recommended, this was placed, further dispo pending consult -12/09: Patient weaned down off O2 as of this a.m. but has had vacillating requirements, remains n.p.o., remains on Levaquin # Recent DVT and PE -Imaging had shown extensive left lower extremity DVT as well as a right popliteal DVT and segmental and subsegmental PE, patient on Eliquis -12/08: Patient has been n.p.o. and is unclear when she will be cleared for p.o., given recent DVT and PE will switch her to subcu Lovenox in the meantime -12/09: Continue Lovenox while patient remains n.p.o., patient to have EGD and possible PEG today so a.m. dose was held #Hypertension and tachycardia -Patient on 20 of lisinopril, 50 metoprolol, 5 of amlodipine, these were resumed 12/06, continue to monitor and titrate as indicated -12/08: Blood pressure 144/72 however patient has not received her medications as she is n.p.o., continue to monitor, can consider IV if needed if patient will have prolonged n.p.o. -12/09: Patient has not been able to receive her oral metoprolol due to prolonged n.p.o. and has had vacillating blood pressures and heart rates, seems to be improving on 2.5 mg of IV metoprolol every 6 #Continued aspiration -12/08: Speech following, patient failed speech study recommended GI consult so GI has been consulted, further dispo pending consult. Patient remains n.p.o., Patient on IV fluids at this time especially given she appears to have dried membranes -12/09: GI evaluated patient, family agreeable to EGD with possible dilation and possible temporary PEG placement Chronic medical problems: #CP -Supportive care -PT/OT # History of urinary retention -Patient with Lau catheter in place #DVT ppx: Patient on Eliquis Sonali Rousseau MD Time spent in the patient's overall evaluation, decision-making process, review of diagnostic data, adjustment of management, discussion with other providers, nursing and ancillary staff involved in patient's care documentation, 37 Minutes Charges/Coding Visit Charges Inpatient E&M: 30451 Subs Hosp L2
[2024-12-09] MEDS: levoFLOXacin IV 750 MG/150 ML BAG 100 MG IV (10:32)
--- NOTE | 2024-12-09 10:33 | CASEMGMT ---
Discharge Planning Updates sent to CC with phone notification. Elisabeth Daniels DC Planning Asst.
--- NOTE | 2024-12-09 15:06 | PCM.PRE.AN2 ---
ASA Classification* ASA Classification ASA Classification: 3 Assessment & Plan Anesthesia* Anesthesia Assessment Anesthesia Assessment: Discussed sedation and/or anesthesia options, risks, benefits, and alternatives with patient/parents/legal guardian/POA. Questions invited. The patient/parents/legal guardian/POA seems to understand and agrees to proceed with anesthesia plan. Reviewed the physical assessment, medical history, allergy history and patient home medications list prior to surgery/procedure/anesthetic and documented any changes. Performed airway and anesthesia risk assessments. Anesthesia Type Anesthesia Type: MAC Anesthesia Focused Assessment* Temperature: 98.4 F Pulse Rate: 104 Blood Pressure: 147/62 Respiratory Rate: 20 Pulse Ox: 95 Oxygen Flow Rate (L/min): 4 Fraction of Inspired Oxygen (FIO2): 55 Airway Assessment Mouth opens: >3 cm Mallampati Score: II Focused Labs Anesthesia Preop lab: CBC WBC 6.6 K/mm3 (4.4-11.0) 12/09/24 03:52 12/09/24 RBC 3.30 M/mm3 (4.2-5.4) L 12/09/24 03:52 12/09/24 Hgb 10.0 g/dL (12.0-15.0) L 12/09/24 03:52 12/09/24 Hct 30.6 % (37-47) L 12/09/24 03:52 12/09/24 Plt Count 318 K/mm3 (150-450) 12/09/24 03:52 12/09/24 CHEMISTRY Potassium 3.3 mmol/L (3.3-5.1) 12/09/24 03:52 12/09/24 Sodium 137 mmol/L (133-145) 12/09/24 03:52 12/09/24 Magnesium 1.9 mg/dL (1.6-2.6) 11/06/24 05:44 11/06/24 Phosphorus 2.5 mg/dL (2.5-4.9) 11/06/24 05:44 11/06/24 BUN 10 mg/dL (4-19) 12/09/24 03:52 12/09/24 Creatinine 0.37 mg/dL (0.70-1.20) L 12/09/24 03:52 12/09/24 Glucose 76 mg/dL (70-99) 12/09/24 03:52 12/09/24 TSH 0.640 uIU/mL (0.358-3.740) 10/30/24 00:00 10/30/24 COAG PT 16.2 SECONDS (11.7-14.9) H 12/04/24 12:31 12/04/24 Pre-Assessment Diagnosis/Proposed Procedure Planned Operative Procedure(s): EGD Anesthesia History Anesthesia History - klystrom tube tester: Anesthesia History - klystrom tube tester Hx Hospitalization Any Problems With Anesthesia Cholinesterase deficiency You/Your Family Experience fever (hyperthermia) with Relationship Recent Exposure to Contagious Disease Does patient have nerve stimulator Patient instructed to have device shut off --Does patient have Pacemaker or ICD? When Was Last Pacemaker Check QUESTION #4 FULL TEXT: You/Your Family Experience fever (hyperthermia) with Anesthesia Last Oral Intake Last Oral intake: Last Oral Intake NPO since Meds taken in AM with sips of water? Meds patient instructed to take am of surgery PONV PONV - klystrom tube tester: PONV - klystrom tube tester Female HX of Motion Sickness HX of N/V After Surgery Non-Smoker Duration of Surgery greater than 60 minutes Number of Risk Factors PONV Score Height & Weight Height & Weight: Anesthesia: Height & Weight Height 5 ft 6 in 12/09/24 10:44 Weight: 69.7 kg 12/09/24 10:44 Body Mass Index (BMI) 24.7 12/08/24 06:00 Respiratory Assessment Respiratory Assessment - klystrom tube tester: Respiratory Tract Infection Hx - klystrom tube tester Hx Respiratory Tract Infection STOP Sleep Apnea STOP Sleep Apnea - klystrom tube tester: STOP Sleep Apnea - klystrom tube tester Hx Hypertension Yes 12/06/24 07:58 Hx Sleep Apnea No 12/04/24 16:45 CPAP BIPAP Do you snore loudly (louder No 12/04/24 16:45 than talking or can be heard Do you often feel tired/ No 12/04/24 16:45 fatigued/ sleepy during daytime? Has anyone observed you stop No 12/04/24 16:45 breathing during sleep? STOP Results Negative 12/04/24 16:45 QUESTION #5 FULL TEXT : Do you snore loudly (louder than talking or can be heard through closed doors)? Tobacco Use History Tobacco Use History - klystrom tube tester: Tobacco Use History - klystrom tube tester Tobacco Use Smoking Status Never smoker 12/04/24 16:45 Hx Tobacco Use No 12/04/24 16:45 Years Smoking Packs Smoked per Day Smoking Cessation Date was within the last 15 years Hx Smoking Cessation Date Hx Smoking Cessation Counseling Hematologic Medial History Hematologic Hx - klystrom tube tester: Hematologic Medical Hx - assembler cards and announcements Hx of Blood Transfusion No 12/04/24 16:45 Hx of Transfusion in last 3 No 12/04/24 16:45 Months Date of Last Transfusion (if within last 3 months) Ever experience any problems No 12/04/24 16:45 with transfusion(s)? Specify any problems Hx of Preganancy in last 3 No 12/04/24 16:45 Months Nurse Filling Out Transfusion JLAMP 12/04/24 16:45 & Questions: Date: 12/04/24 12/04/24 16:45 Time: 16:47 12/04/24 16:45 Patient unable to answer at this time (ie. confused, unrespo /Reproduction History /Reproductive History - klystrom tube tester: /Reproductive Hx- klystrom tube tester Hx Now Gestational Age (in weeks): EDC: Hx Hx Para Hx Section SAB Active Medications Active Medications: Current Medications Generic Name Dose Route Start Last Admin Trade Name Freq PRN Reason Stop Dose Admin Acetaminophen 650 mg 12/07/24 18:41 12/08/24 16:04 Acetaminophen 650 Mg Suppository RC 650 mg Q6H PRN PRN Administration Pain 1-10 or Fever Amlodipine Besylate 5 mg 12/06/24 10:25 12/09/24 10:37 Amlodipine 5 Mg Tablet PO Not Given DAILY [facility] Protocol Cholecalciferol 25 mcg 12/05/24 10:00 12/09/24 07:33 Cholecalciferol (Vit D3) 25 Mcg Tablet (1,000 Units) PO Not Given DAILY [facility] Enoxaparin Sodium 70 mg 12/08/24 10:00 12/09/24 10:23 Enoxaparin 80 Mg/0.8 Ml Syringe SC Not Given Q12 [facility] Ferrous Sulfate 325 mg 12/05/24 08:00 12/09/24 07:31 Ferrous Sulfate 325 Mg [facility] Guaifenesin 1,200 mg 12/07/24 10:00 12/09/24 07:32 Guaifenesin 1,200 Mg Tablet PO Not Given BID [facility] Levofloxacin 750 mg in 150 mls @ 100 mls/hr 12/05/24 10:00 12/09/24 12:02 Levaquin Iv IV Infused Q24 [facility] Infusion Sodium Chloride 1,000 mls @ 50 mls/hr 12/07/24 18:00 12/09/24 02:44 IV 12/10/24 13:59 50 mls/hr .Q20H [facility] Administration Protocol Lisinopril 20 mg 12/06/24 10:25 12/09/24 10:37 Lisinopril 20 Mg Tablet PO Not Given DAILY [facility] Protocol Metoprolol Tartrate 2.5 mg 12/09/24 06:00 12/09/24 10:37 Metoprolol Tartrate 5 Mg/5 Ml Vial IV Not Given Q6H [facility] Protocol Ondansetron HCl 4 mg 12/04/24 16:18 Ondansetron 4 Mg/2 Ml Vial IV Q8H PRN PRN NAUSEA/VOMITING Pregabalin 50 mg 12/04/24 22:00 12/09/24 11:04 Pregabalin 50 Mg Capsule PO Not Given TID [facility] Risperidone 0.5 mg 12/04/24 22:00 12/08/24 21:27 Risperidone 0.5 Mg Tablet PO 0.5 mg QHS [facility] Administration Protocol Senna/Docusate Sodium 1 tablet 12/04/24 22:00 12/09/24 07:32 Senna/Docusate Sodium 1 Tablet PO Not Given BID [facility] Sodium Chloride 10 - 40 ml 12/04/24 16:59 12/07/24 19:53 0.9 % Nacl (Sterile) Posiflush 10 Ml IV 10 ml UD PRN Administration Port access or dressing change Sodium Chloride 10 - 40 ml 12/04/24 16:59 12/07/24 18:15 0.9% Saline Lock 10 Ml Syringe IV 20 ml UD PRN Administration Midline Flush Tamsulosin HCl 0.4 mg 12/04/24 17:30 12/08/24 16:15 Tamsulosin Hcl 0.4 Mg Capsule PO Not Given DAILY@1730 [facility] Medical History Anxiety Depression Osteoporosis Non-smoker Cerebral palsy Cataract Palpitations Elevated blood pressure reading without diagnosis of hypertension Essential (primary) hypertension Home Medications ?Medication ?Instructions ?Recorded ?Last Taken ?Type garlic 200 mg tablet 200 mg PO DAILY 01/16/18 Unknown History cholecalciferol (vitamin D3) 25 1,000 unit PO DAILY 07/25/23 Unknown History mcg (1,000 unit) tablet metoprolol succinate 50 mg 50 mg PO DAILY #90 TABLETS 01/22/24 Unknown Rx tablet,extended release 24 hr amlodipine 5 mg tablet 5 mg PO DAILY #90 tabs 10/05/24 Unknown Rx risperidone 0.5 mg tablet 0.5 mg PO QHS #0 tabs 11/11/24 Unknown Rx tamsulosin 0.4 mg capsule 0.4 mg PO DAILY@1730 #0 caps 11/11/24 Unknown Rx apixaban 5 mg tablet (Eliquis) 5 mg PO BID 12/04/24 Unknown History ferrous sulfate 325 mg (65 mg 325 mg PO BID 12/04/24 Unknown History iron) tablet (Feosol) lisinopril 20 mg tablet 20 mg PO DAILY 12/04/24 Unknown History pregabalin 50 mg capsule (Lyrica) 50 mg PO TID 12/04/24 Unknown History sennosides 8.6 mg-docusate sodium 1 tab-cap PO BID 12/04/24 Unknown History 50 mg tablet (Stimulant Laxative Plus) Allergy/AdvReac Type Severity Reaction Status Date / Time amantadine (From Symmetrel) AdvReac Severe Unknown Verified 12/09/24 14:55 amoxicillin (From Augmentin) AdvReac Severe Unknown Verified 12/09/24 14:55 clavulanic acid (From AdvReac Severe Unknown Verified 10/30/24 11:00 Augmentin) erythromycin base AdvReac Severe Unknown Verified 12/09/24 14:55 lorazepam (From Ativan) AdvReac restless Verified 12/09/24 14:55 Family History Father Diabetes Hypertension Mother alzhemier Osteoporosis Surgical History History of tonsillectomy History of hysterectomy History of hip replacement Social History Smoking Status: Never smoker alcohol intake: never substance use type: does not use caffeine: Yes Type: coffee Number of servings: 3 what type of physical activity do you participate in: none seatbelt use: always do you feel safe at home: Yes Review of Systems (Anesthesia) ROS Narrative System reviewed and no additional complaints, except as documented.
--- NOTE | 2024-12-09 15:17 | PN_ITS ---
Progress Note Patient's family agreed to have PEG tube placed if needed due to severe aspiration pneumonia in the setting of severe oropharyngeal dysphagia Physical Exam Const alert, oriented x3, no apparent distress and healthy appearing General Appearance: cooperative GI normal to inspection, nondistended, normoactive bowel sounds, soft to palpation, non-tender and non-distended Percussion: normal to percussion Rectal Exam: deferred Assessment & Plan Assessment/Plan (1) Influenza A: (2) Acute hypoxic respiratory failure: PLAN: Plan 79-year-old with cerebral palsy and acute hypoxic respiratory failure due to acute influenza infection and concern for aspiration pneumonia * patient remains on oxygen and is down to 2L today * influenza screen was positive in the ED * CT chest showed increased markings at the lung base concerning for atelectasis versus pneumonia but otherwise fairly clear. * On IV Solu-Medrol, IV Levaquin and Tamiflu. Speech therapy also consulted due to concerns for dysphagia. * She was on modified diet per speech therapy. However after undergoing repeat speech eval and her having severe dysphagia with aspiration she is n.p.o. I talked to her family about undergoing an upper endoscopy with esophageal dilation and possible temporary PEG tube placement. They will think about what they want to do is a family. * Titrate oxygen to maintain saturation above 90%. Breathing treatments with bronchodilators. Patient will undergo upper endoscopy with possible PEG placement. Patient is probably turn was explained alternatives, risk and benefits include not withstanding bleeding, infection, sepsis, perforation, need for return to . She well have an ASA of 3. Visit Charges Inpatient E&M: 48067 [facility] Hosp L3
--- NOTE | 2024-12-09 15:45 | EGD_PTH ---
PATIENT: SOUMYA MCFARLANE LOC: [facility] U#:[id number] AGE/SX: 79/F ROOM: [facility] RE12/04/[address]: Dr. Sonali Rousseau MD : 1945 BED: 1 DIS: 12/11/2024 SPEC #: [id number] RECD: 12/10/24 11:18 STATUS: MERRITT HOPE #: [id number] PARK: 12/09/24 15:[address]: Cristino Kwan DEPT: SURGICAL PATHOLOGY RECD BY: Raudel Gavin ENTERED: 12/10/24 11:18 SP TYPE: EGD BIOPSY OT DR: DO Dr. Jenaro Addison MD Dr. Nana Yaa Koram, MD Dr. Paige Pierce, MD Tissues: Esophagus, NOS Procedures: Special Stain Group I Surgery Specimen Level IV GMS Stain (control) HEADER OPERATION: EGD, PEG tube placement and biopsy PRE-OP DIAGNOSIS: Dysphagia with aspiration TISSUE SUBMITTED: A- Random esophagus biopsy MICROSCOPIC DIAGNOSIS A. Random esophagus, biopsy: * Squamous mucosa with reactive change. * Negative for eosinophils. * A PASD stain for fungal organisms is PENDING and will be reported in an addendum. MICROSCOPIC DESCRIPTION Slides are reviewed. GROSS DESCRIPTION A. Received in fixative is one container labeled with the patient's name and designated Random esophagus biopsy. The specimen consists of one irregular fragment of light oscar soft tissue that measures 0.5 x 0.4 x 0.2 cm. The specimen is totally submitted in one cassette. 12/10/2024 [facility]:[id number], [id number] ADDENDUM ADDENDUM ADDENDUM ADDENDUM ADDENDUM ADDENDUM 12/17/2024 13:35 ADDENDUM 12/17/2024 13:35 ADDENDUM 12/17/2024 13:35 ADDENDUM 12/17/2024 13:35 ADDENDUM 12/17/2024 13:35 This addendum is to report the findings of the PAS special stain: The PAS stain is NEGATIVE for fungal organisms. Matched control reacted appropriately.
--- NOTE | 2024-12-09 16:09 | OP.EGD_ITS ---
Patient Name: Claritza Burton Procedure Date: 12/09/2024 3:17 PM Date of : 1945 Age: 79 Procedure: Upper GI endoscopy Indications: Dysphagia Providers: Cristino Kwan DO Medicines: Monitored Anesthesia Care Patient Profile: This is a 79 year old female. Refer to note in patient chart for documentation of history and physical. Patient has symptoms of dysphagia with both liquids and solids. Complications: No immediate complications. Procedure: Pre-Anesthesia Assessment: - Prior to the procedure, a History and Physical was performed, and patient medications and allergies were reviewed. The patient is competent. The risks and benefits of the procedure and the sedation options and risks were discussed with the patient. All questions were answered and informed consent was obtained. Patient identification and proposed procedure were verified by the physician in the pre-procedure area. Mental Status Examination: alert and oriented. Airway Examination: normal oropharyngeal airway and neck mobility. Respiratory Examination: clear to auscultation. CV Examination: normal. Prophylactic Antibiotics: The patient does not require prophylactic antibiotics. Prior Anticoagulants: The patient has taken no anticoagulant or antiplatelet agents. ASA Grade Assessment: III - A patient with severe systemic disease. After reviewing the risks and benefits, the patient was deemed in satisfactory condition to undergo the procedure. The anesthesia plan was to use monitored anesthesia care (MAC). Immediately prior to administration of medications, the patient was re-assessed for adequacy to receive sedatives. The heart rate, respiratory rate, oxygen saturations, blood pressure, adequacy of pulmonary ventilation, and response to care were monitored throughout the procedure. The physical status of the patient was re-assessed after the procedure. After obtaining informed consent, the endoscope was passed under direct vision. Throughout the procedure, the patient's blood pressure, pulse, and oxygen saturations were monitored continuously. The gastroscope was introduced through the mouth, and advanced to the second part of duodenum. The upper GI endoscopy was accomplished without difficulty. The patient tolerated the procedure well. Scope In: 3:41:21 PM Scope Out: 3:56:05 PM Total Procedure Duration Time 0 hours 14 minutes 44 seconds Findings: Mucosal changes including ringed esophagus and small-caliber esophagus were found in the middle third of the esophagus. Biopsies were obtained from the proximal and distal esophagus with cold forceps for histology of suspected eosinophilic esophagitis. Verification of patient identification for the specimen was done. Estimated blood loss was minimal. No gross lesions were noted in the entire examined stomach. The patient was placed in the supine position for PEG placement. The stomach was insufflated to appose gastric and abdominal diaz. A site was located in the body of the stomach with adequate transillumination for placement. The abdominal wall was marked and prepped in a sterile manner. The area was anesthetized with 1 mL of 0.5% lidocaine. The trocar needle was introduced through the abdominal wall and into the stomach under direct endoscopic view. A snare was introduced through the endoscope and opened in the gastric lumen. The guide wire was passed through the trocar and into the open snare. The snare was closed around the guide wire. The endoscope and snare were removed, pulling the wire out through the mouth. A skin incision was made at the site of needle insertion. The endoscopically removable 20 Fr Bard gastrostomy tube was lubricated. The G-tube was tied to the guide wire and pulled through the mouth and into the stomach. The trocar needle was removed, and the gastrostomy tube was pulled out from the stomach through the skin. The external bumper was attached to the gastrostomy tube, and the tube was cut to remove the guide wire. The final position of the gastrostomy tube was confirmed by relook endoscopy, and skin marking noted to be 4 cm at the external bumper. The final tension and compression of the abdominal wall by the PEG tube and external bumper were checked. The feeding tube was capped, and the tube site cleaned and dressed. No gross lesions were noted in the duodenal bulb. Impression: - Esophageal mucosal changes suggestive of eosinophilic esophagitis. - No gross lesions in the entire stomach. - No gross lesions in the duodenal bulb. - Biopsies were taken with a cold forceps for evaluation of eosinophilic esophagitis. - An endoscopically removable PEG placement was successfully completed. Recommendation: - Return patient to [facility] for [facility] care. - Resume previous diet. - Continue present medications. - Await pathology results. - Repeat upper endoscopy to check healing. Procedure Code(s): --- Professional --- 80559, Esophagogastroduodenoscopy, flexible, transoral; with directed placement of percutaneous gastrostomy tube 27299, Esophagogastroduodenoscopy, flexible, transoral; with biopsy, single or multiple CPT copyright 2021 [employer]. All rights reserved. The codes documented in this report are preliminary and upon psychologist industrial organizational review may be revised to meet current compliance requirements. Cristino Kwan DO 12/09/2024 4:08:54 PM This report has been signed electronically. Number of Addenda: 0 Note Initiated On: 12/09/2024 3:17 PM
--- NOTE | 2024-12-09 16:09 | OP.CCLET_ITS ---
12/09/2024 Jenaro Ayers [address] [place] [address] Re : Upper GI endoscopy procedure for Claritza Burton Dear Dr. Ayers This procedure was performed on Monday, December 09, 2024. My impressions and recommendations are as follows: Impressions : - Esophageal mucosal changes suggestive of eosinophilic esophagitis. - No gross lesions in the entire stomach. - No gross lesions in the duodenal bulb. - Biopsies were taken with a cold forceps for evaluation of eosinophilic esophagitis. - An endoscopically removable PEG placement was successfully completed. Recommendations : - Return patient to [facility] for ongoing care. - Resume previous diet. - Continue present medications. - Await pathology results. - Repeat upper endoscopy to check healing. My findings are described in the full procedure note, which is enclosed. If I can be of further assistance, please feel free to contact me at . Sincerely, Cristino Kwan, 12/09/2024 4:08:54 PM This report has been signed electronically.
--- NOTE | 2024-12-09 16:38 | PCM.POST.ANE ---
Anesthesia: Postop Eval I Current Vital Signs Temperature: 98.4 F Pulse Rate: 123 Blood Pressure: 129/61 Respiratory Rate: 16 Pulse Ox: 90 Assessment Airway patent: Yes Spontaneous unlabored respirations: Yes nausea: No Vomiting: No Anesthesia Complication: No Fluid Hydration Crystalloid volume administer (ml): 100 Total IV fluid infused: 100 Progress Note Anesthesia document: Postop Eval 1 completed: Yes
--- NOTE | 2024-12-09 16:48 | POSTOPAN2_ITS ---
Anesthesia Postop Eval I Sum Postop Eval Completion status Anesthesia document: Postop Eval 1 completed: Yes Anesthesia Postop Eval I Summary Anesthesia Postop Eval I Summary: Anesthesia Postop Eval I: Assessment Summary Airway patent Yes 12/09/24 16:38 LICENSED OCCUPATIONAL THERAPY ASSISTANT.TNES Spontaneous unlabored Yes 12/09/24 16:38 LICENSED OCCUPATIONAL THERAPY ASSISTANT.TNES respirations Mental status nausea No 12/09/24 16:38 LICENSED OCCUPATIONAL THERAPY ASSISTANT.TNES Vomiting No 12/09/24 16:38 LICENSED OCCUPATIONAL THERAPY ASSISTANT.TNES Anesthesia Postop Eval I: Fluid Summary Crystalloid volume administer 100 12/09/24 16:38 LICENSED OCCUPATIONAL THERAPY ASSISTANT.TNES (ml) Colloids volume administered ( ml) Blood Product volume administered (ml) Total IV fluid infused 100 12/09/24 16:38 LICENSED OCCUPATIONAL THERAPY ASSISTANT.TNES Anesthesia Postop Eval I: Summary Notes Anesthesia Complication No 12/09/24 16:38 LICENSED OCCUPATIONAL THERAPY ASSISTANT.TNES Anesthesia Complication Comment: Post-operative progress note Anesthesia: Postop Eval II Evaluation Mental status: Awake Pain Level: 0 nausea: No Vomiting: No
--- NOTE | 2024-12-09 16:48 | PCM.POSTANE2 ---
Anesthesia Postop Eval I Sum Postop Eval Completion status Anesthesia document: Postop Eval 1 completed: Yes Anesthesia Postop Eval I Summary Anesthesia Postop Eval I Summary: Anesthesia Postop Eval I: Assessment Summary Airway patent Yes 12/09/24 16:38 MANAGER MEDIC[employer] MARKETING.TNES Spontaneous unlabored Yes 12/09/24 16:38 MANAGER MEDICARE MARKETING.TNES respirations Mental status nausea No 12/09/24 16:38 MANAGER MEDICARE MARKETING.TNES Vomiting No 12/09/24 16:38 MANAGER MEDICARE MARKETING.TNES Anesthesia Postop Eval I: Fluid Summary Crystalloid volume administer 100 12/09/24 16:38 MANAGER MEDICARE MARKETING.TNES (ml) Colloids volume administered ( ml) Blood Product volume administered (ml) Total IV fluid infused 100 12/09/24 16:38 MANAGER MEDICARE MARKETING.TNES Anesthesia Postop Eval I: Summary Notes Anesthesia Complication No 12/09/24 16:38 MANAGER MEDICARE MARKETING.TNES Anesthesia Complication Comment: Post-operative progress note Anesthesia: Postop Eval II Evaluation Mental status: Awake Pain Level: 0 nausea: No Vomiting: No
[2024-12-09] MEDS: Acetaminophen 650 MG Suppository RC (20:27)
[2024-12-09] MEDS: Enoxaparin 80 MG/0.8 ML Syringe 70 MG SC (20:38)
[2024-12-09] MEDS: RisperiDONE 0.5 MG Tablet PO (20:39)
[2024-12-09] MEDS: Senna/Docusate Sodium 1 Tablet PO (20:40)
[2024-12-09] MEDS: Pregabalin 50 MG Capsule PO (23:44)
[2024-12-09] MEDS: 0.9% Saline Lock 10 ML Syringe IV (23:46)
[2024-12-10] VITALS (13 sets, daily range): BP systolic 139–158; BP diastolic 50–76; PULSE 78–99; RESP 16–21; TEMP 36.2–36.8; O2SAT 92–100; BMI 23.8
[2024-12-10] MEDS: 0.9% Saline Lock 10 ML Syringe IV ×3 (06:06→22:17)
[2024-12-10] MEDS: Metoprolol Tartrate 5 MG/5 ML Vial 2.5 MG IV ×3 (06:07→17:18)
[2024-12-10] MEDS: Pregabalin 50 MG Capsule PO (06:12)
[2024-12-10 06:53] LABS: Absolute Lymphocyte Count 1.54 X10^3/uL (0.83-4.51); Basophil# 0.02 X10^3/uL; Basophil% 0.4 % (0-1); Hematocrit 28.4 % (37-47); Hemoglobin 9.1 g/dL (12.0-15.0); Lymphocyte # 1.54 X10^3/ul (0.83-4.51); Lymphocyte % 29.2 % (19-41); Mean Corpuscular Hgb 29.9 pg (27.0-32.0); Mean Corpuscular Volume 93.4 fL (81-99); Mean Platelet Vol. 10.1 fl (6.2-12.0); Monocyte% 11.4 % (0-10); NRBC Flagged by Analyzer 0 % (0-5); Neutrophil # 3.02 X10^3/uL (2.7-7.7); Neutrophil % 57.3 % (47-70); POSITIVE MORPHOLOGY YES; Platelet Count 302 K/mm3 (150-450); RBC Distribution Width CV 14.8 % (11.6-14.6); RBC Distribution Width SD 50.9 fl (35.1-43.9); Red Blood Count 3.04 M/mm3 (4.2-5.4); White Blood Count 5.3 K/mm3 (4.4-11.0)
[2024-12-10 06:54] LABS: Differential Indicated SCAN CRITERIA MET
[2024-12-10 07:26] LABS: Differential Comment SCANNED; Platelet Estimate ADEQUATE (ADEQ); Red Cell Morphology NORM C+C NORMAL (NORM C&C)
--- NOTE | 2024-12-10 08:00 | PCM.PN.HOSP ---
Reason for Visit Reason for Visit: Diagnoses Influenza due to other identified influenza virus with other respiratory manifestations (12/04/24) Acute respiratory failure with hypoxia (12/04/24) Subjective Subjective Patient resting comfortably, very tired after receiving Risperdal and Lyrica Objective Data Objective Data Vital Signs: Vital Signs Temp Pulse Resp BP Pulse Ox O2 Del Method O2 Flow Rate 97.4 F L 78 21 H 143/50 H 98 Nasal Cannula 3 12/10/24 06:00 12/10/24 06:07 12/10/24 06:00 12/10/24 06:07 12/10/24 07:22 12/10/24 07:22 12/10/24 07:22 FiO2 55 12/09/24 15:07 Oxygen Flow Rate (L/min) 3 Oxygen Delivery Method Nasal Cannula Weight: 67.1 kg Body Mass Index (BMI) 23.8 Intake & Output: Intake and Output for Last 24 Hours 12/08/24 12/09/24 12/10/24 23:59 23:59 23:59 Intake Total 650 / 675 2175 / 2235 1060 / 1060 Output Total 825 / 1100 3225 / 3625 525 / 525 Balance -175 / -425 -1050 / -1390 535 / 535 Lab / Micro Data 12/10/24 06:00 12/10/24 06:00 Labs: Laboratory Results - last 24 hr 12/10/24 06:00: WBC 5.3, RBC 3.04 L, Hgb 9.1 L, Hct 28.4 L, MCV 93.4, MCH 29.9, MCHC 32.0, RDW Std Deviation 50.9 H, RDW Coeff of Roselyn 14.8 H, Plt Count 302, MPV 10.1, Immature Gran % (Auto) 1.700 H, Neut % (Auto) 57.3, Lymph % (Auto) 29.2, Greenlee % (Auto) 11.4 H, Eos % (Auto) 0.0, Baso % (Auto) 0.4, Absolute Neuts (auto) 3.0, Absolute Lymphs (auto) 1.54, Nucleated RBC % 0, Differential Comment SCANNED, Platelet Estimate ADEQUATE, RBC Morphology NORM C+C Micro: Microbiology 12/04/24 12:31 Blood Culture (Wb) - Right Wrist Blood Culture - Final No growth in 5 days. 12/04/24 12:00 Blood Culture (Wb) - Venous Blood Culture - Final No growth in 5 days. 12/08/24 18:15 Urine Catheter - Lau Urine Culture - Preliminary Culture exhibits no growth. 12/04/24 11:57 Urine Catheter - Lau Urine Culture - Final Culture exhibits no growth. 12/04/24 11:56 Mucosa - Nose SARS-CoV-2, Influenza & RSV (PCR) - Final Influenzae A Rhythm Strip Rhythm Strip: Sinus Tach Rate: 120 Ectopy: None Physical Exam Narrative General: Resting comfortably in bed, very tired HEENT: Atraumatic Eyes: Not spontaneously opening eyes this patient is very tired Neck: Supple Respiratory: Improving respiratory effort Cardiovascular: Regular rate GI: Soft, nontender, nondistended Extremities: No significant pitting edema Musculoskeletal: Turned sideways resting comfortably Neuro: No overt focal neurological deficits on exam the patient not able to thoroughly participate in exam Skin: No rashes appreciated Psych: Resting comfortably Assessment & Plan Assessment/Plan (1) Influenza A: (2) Acute hypoxic respiratory failure: PLAN: Plan # Acute hypoxic respiratory failure secondary to influenza A with possible aspiration pneumonia -Patient presented with influenza A and CT of the chest with concern for early left lower lobe infiltrate -Patient on Tamiflu and Levaquin -On 2 to 3 L O2 this a.m. but there is concern for repeat aspiration so patient bumped up to 4 L and made n.p.o. -Once more alert patient have repeat speech evaluation, my exam she was able to wake up and talk with me, confused about where she was but knew it was 2024 -12/08: Patient on Levaquin, speech study today showed patient with aspiration to multiple thicknesses and GI consult recommended, this was placed, further dispo pending consult -12/09: Patient weaned down off O2 as of this a.m. but has had vacillating requirements, remains n.p.o., remains on Levaquin -12/10: On Levaquin, patient on 3 L O2 this a.m. however saturating 98%, suspect this can be weaned off. Has not been febrile since midday on 12/08 and repeat cultures no growth to date # Recent DVT and PE -Imaging had shown extensive left lower extremity DVT as well as a right popliteal DVT and segmental and subsegmental PE, patient on Eliquis -12/08: Patient has been n.p.o. and is unclear when she will be cleared for p.o., given recent DVT and PE will switch her to subcu Lovenox in the meantime -12/09: Continue Lovenox while patient remains n.p.o., patient to have EGD and possible PEG today so a.m. dose was held -12/10: Back on her Lovenox full dose subcu #Hypertension and tachycardia -Patient on 20 of lisinopril, 50 metoprolol, 5 of amlodipine, these were resumed 12/06, continue to monitor and titrate as indicated -12/08: Blood pressure 144/72 however patient has not received her medications as she is n.p.o., continue to monitor, can consider IV if needed if patient will have prolonged n.p.o. -12/09: Patient has not been able to receive her oral metoprolol due to prolonged n.p.o. and has had vacillating blood pressures and heart rates, seems to be improving on 2.5 mg of IV metoprolol every 6 -12/10: Can begin to transition medications to G-tube once cleared to do so #Continued aspiration -12/08: Speech following, patient failed speech study recommended GI consult so GI has been consulted, further dispo pending consult. Patient remains n.p.o., Patient on IV fluids at this time especially given she appears to have dried membranes -12/09: GI evaluated patient, family agreeable to EGD with possible dilation and possible temporary PEG placement -12/10: Patient with PEG placement, dietitian already on board, appreciate recommendations, once patient with nutrition plan in place unable to tolerate will likely be able to DC to [facility] Chronic medical problems: #CP -Supportive care -PT/OT # History of urinary retention -Patient with Lau catheter in place #DVT ppx: Patient on Eliquis Sonali Rousseau MD Time spent in the patient's overall evaluation, decision-making process, review of diagnostic data, adjustment of management, discussion with other providers, nursing and ancillary staff involved in patient's care documentation, 36 Minutes Charges/Coding Visit Charges Inpatient E&M: 12892 Subs Hosp L2
[2024-12-10 09:16] LABS: Anion Gap 14 (5-15); BUN 9 mg/dL (4-19); BUN/Creat Ratio 24.3 RATIO (10-20); Calcium,Total 7.6 mg/dL (7.6-11.0); Carbon Dioxide 19.2 mmol/L (21.0-32.0); Chloride 105 mmol/L (98-108); Creatinine, Serum 0.37 mg/dL (0.70-1.20); EST Glomerular Filtration Rate 104 (>60); Estimated Creatinine Clearance 55.13 ml/min (50-250); Glucose 65 mg/dL (70-99); Potassium 3.4 mmol/L (3.3-5.1); Sodium Level 138 mmol/L (133-145)
[2024-12-10] MEDS: Enoxaparin 80 MG/0.8 ML Syringe 70 MG SC ×2 (09:38→22:15)
[2024-12-10] MEDS: Ferrous Sulfate 325 MG Tablet PO (09:40)
[2024-12-10] MEDS: Cholecalciferol (VIT D3) 25 MCG TABLET (1,000 UNITS) PO (09:40)
[2024-12-10] MEDS: amLODIPine 5 MG Tablet PO (09:40)
[2024-12-10] MEDS: Lisinopril 20 MG Tablet PO (09:40)
[2024-12-10] MEDS: Senna/Docusate Sodium 1 Tablet PO ×2 (09:40→22:11)
[2024-12-10] MEDS: guaiFENesin 1,200 MG Tablet 1200 MG PO (09:40)
[2024-12-10] MEDS: levoFLOXacin IV 750 MG/150 ML BAG 100 MG IV (09:40)
[2024-12-10] MEDS: 0.9 % NaCl (Sterile) Posiflush 10 mL IV (12:54)
--- NOTE | 2024-12-10 13:51 | CASEMGMT ---
Discharge Planning Updates sent to [facility] with note that pt will likely return tomorrow. Elisabeth Daniels DC Planning Asst.
[2024-12-10] MEDS: Acetaminophen 325 MG Tablet 650 MG PO ×2 (14:12→22:33)
[2024-12-10] MEDS: Jevity 1.5 1,000 ML 10 ML GT (15:15)
--- NOTE | 2024-12-10 17:58 | PN_ITS ---
Progress Note Patient underwent EGD with biopsies of the esophagus for eosinophilic esophagitis and placement of PEG tube. Physical Exam Narrative General: Resting comfortably in bed, very tired HEENT: Atraumatic Eyes: Not spontaneously opening eyes this patient is very tired Neck: Supple Respiratory: Improving respiratory effort Cardiovascular: Regular rate GI: Soft, nontender, nondistended. PEG tube in place without any signs of erythema or bleeding Extremities: No significant pitting edema Musculoskeletal: Turned sideways resting comfortably Neuro: No overt focal neurological deficits on exam the patient not able to thoroughly participate in exam Skin: No rashes appreciated Psych: Resting comfortably Assessment & Plan Assessment/Plan (1) Influenza A: (2) Acute hypoxic respiratory failure: PLAN: Plan 79-year-old with cerebral palsy and acute hypoxic respiratory failure due to acute influenza infection and concern for aspiration pneumonia * patient remains on oxygen and is down to 2L today * influenza screen was positive in the ED * CT chest showed increased markings at the lung base concerning for atelectasis versus pneumonia but otherwise fairly clear. * On IV Solu-Medrol, IV Levaquin and Tamiflu. Speech therapy also consulted due to concerns for dysphagia. * She was on modified diet per speech therapy. However after undergoing repeat speech eval and her having severe dysphagia with aspiration she is n.p.o. I talked to her family about undergoing an upper endoscopy with esophageal dilation and possible temporary PEG tube placement. They will think about what they want to do is a family. * Titrate oxygen to maintain saturation above 90%. Breathing treatments with bronchodilators. Patient will undergo upper endoscopy with possible PEG placement. Patient is probably turn was explained alternatives, risk and benefits include not withstanding bleeding, infection, sepsis, perforation, need for return to . She well have an ASA of 3. 3/-patient is doing well and tolerating tube feedings. Continue conservative therapy. Await biopsies of the esophagus. Visit Charges Inpatient E&M: 83851 [facility] Hosp L3
[2024-12-10] MEDS: RisperiDONE 0.25 MG Tablet PO (22:11)
[2024-12-11] VITALS (11 sets, daily range): BP systolic 128–152; BP diastolic 61–75; PULSE 88–105; RESP 16–18; TEMP 36.3–37.1; O2SAT 93–97; BMI 23.2
[2024-12-11] MEDS: Metoprolol Tartrate 5 MG/5 ML Vial 2.5 MG IV ×4 (00:36→18:31)
[2024-12-11] MEDS: 0.9% Saline Lock 10 ML Syringe IV ×2 (00:37→06:25)
[2024-12-11 07:34] LABS: Absolute Lymphocyte Count 1.67 X10^3/uL (0.83-4.51); Absolute Neutrophil Count 4.9 X10^3/uL (2.0-7.7); Basophil# 0.02 X10^3/uL; Basophil% 0.3 % (0-1); Eosinophil# 0.02 X10^3/uL; Eosinophils% 0.3 % (0-5); Hematocrit 30.4 % (37-47); Hemoglobin 9.6 g/dL (12.0-15.0); Lymphocyte # 1.67 X10^3/ul (0.83-4.51); Lymphocyte % 22.5 % (19-41); Mean Corp Hgb Conc 31.6 g/dL (32-36); Mean Corpuscular Hgb 29.6 pg (27.0-32.0); Mean Corpuscular Volume 93.8 fL (81-99); Mean Platelet Vol. 10.4 fl (6.2-12.0); Monocyte# 0.63 X10^3/uL; Monocyte% 8.5 % (0-10); NRBC Flagged by Analyzer 0 % (0-5); Neutrophil # 4.89 X10^3/uL (2.7-7.7); Neutrophil % 65.8 % (47-70); POSITIVE MORPHOLOGY YES; Platelet Count 346 K/mm3 (150-450); RBC Distribution Width CV 14.7 % (11.6-14.6); RBC Distribution Width SD 50.5 fl (35.1-43.9); Red Blood Count 3.24 M/mm3 (4.2-5.4); White Blood Count 7.4 K/mm3 (4.4-11.0)
[2024-12-11 07:42] LABS: Differential Indicated SCAN CRITERIA MET
[2024-12-11 08:25] LABS: Anion Gap 14 (5-15); BUN 11 mg/dL (4-19); BUN/Creat Ratio 26.2 RATIO (10-20); Calcium,Total 8.2 mg/dL (7.6-11.0); Carbon Dioxide 21.2 mmol/L (21.0-32.0); Chloride 102 mmol/L (98-108); Creatinine, Serum 0.43 mg/dL (0.70-1.20); EST Glomerular Filtration Rate 100 (>60); Estimated Creatinine Clearance 55.13 ml/min (50-250); Glucose 141 mg/dL (70-99); Potassium 3.1 mmol/L (3.3-5.1); Sodium Level 138 mmol/L (133-145)
--- NOTE | 2024-12-11 09:24 | CASEMGMT ---
Discharge Planning Nutrition note sent to [facility] with follow up phone call. [facility] confirmed that pt can admit today w/o precert. SW updated. Elisabeth Daniels DC Planning Asst.
[2024-12-11] MEDS: guaiFENesin 1,200 MG Tablet 1200 MG PO (10:43)
[2024-12-11] MEDS: Enoxaparin 80 MG/0.8 ML Syringe 70 MG SC (10:43)
[2024-12-11] MEDS: amLODIPine 5 MG Tablet PO (10:43)
[2024-12-11] MEDS: Cholecalciferol (VIT D3) 25 MCG TABLET (1,000 UNITS) PO (10:44)
[2024-12-11] MEDS: Lisinopril 20 MG Tablet PO (10:44)
[2024-12-11] MEDS: Ferrous Sulfate 325 MG Tablet PO (10:44)
[2024-12-11] MEDS: Senna/Docusate Sodium 1 Tablet PO (10:44)
[2024-12-11] MEDS: levoFLOXacin IV 750 MG/150 ML BAG 100 MG IV (10:54)
[2024-12-11 10:55] LABS: Magnesium 1.8 mg/dL (1.5-2.2); Phosphorus 2.3 mg/dL (2.7-4.5)
[2024-12-11] MEDS: Potassium Chloride Oral Soln 20 MEQ/15 ML UDC 40 MEQ GT (12:45)
[2024-12-11] MEDS: Ondansetron 4 MG/2 ML Vial IV (13:12)
--- NOTE | 2024-12-11 16:34 | TREXTCAR_ITS ---
Diet Diet Order/Speech Therapy: 12/07/24 08:50 NPO [Diet: Nothing Per Oral] Diet Comments: Ok for critical meds crushed in if fully alert, meds by IV as able Tube Feed: jevity 1.5 at 45mL/hr x24h w/ 160mL h20 flush q4hr Routine Orders/Code Status Suppository Type: Dulcolax 10mg Suppository Frequency: Daily PRN Routine Lab Work: BMP (potassium) Code Status: Full Code DC O2, CPAP, BIPAP needs Home O2 Discharge instructions: Yes Type of respiratory needs?: Oxygen (2) Oxygen frequency: Continuous Continuous oxygen liters per minute: 2 Wound(s) coccyx: Wound Type: Pressure Injury mid abd: Wound Type: PEG Therapies Physical Therapy: Eval and Treat Occupational Therapy: Eval and Treat Speech Therapy: Eval and Treat Problem/Diagnosis (1) Influenza A: Status: Acute Code(s): J10.1 - Influenza due to other identified influenza virus with other respiratory manifestations (2) Acute hypoxic respiratory failure: Status: Acute Code(s): J96.01 - Acute respiratory failure with hypoxia Plan # Acute hypoxic respiratory failure secondary to influenza A with aspiration p neumonia # Dysphagia with recurrent aspiration-concern for eosinophilic esophagitis on EGD # Recent DVT and PE # Hypertension # Chronic back pain # History of urinary retention with Lau in place # Cerebral palsy 79-year-old female with history as above as well as recent prolonged hospitalization at [facility] 10/30 through 11/11 with parainfluenza, Streptococcus bacteremia, back pain, urinary retention and falls [facility] and then admitted to [facility] 11/21 through 11/30 with hyponatremia, UTI, acute DVT/PE and iron deficiency anemia subsequently discharged to [facility] on 11/30 Re-presented to [facility] ED 12/04/2024 due to nausea, vomiting, fevers, altered mental status. She had been mentating well but the night prior to arrival she had 2 episodes of vomiting there was concern for aspiration. In the ED she was found to be positive for influenza A and CT chest/abdomen/pelvis showed increased markings at bilateral lung bases but otherwise overall unremarkable. She was noted however to be hypoxic and was placed on Airvo in the ED. Patient ultimately weaned to nasal cannula however intermittently would have desaturations and fevers and repeat speech evaluation showed consistent aspiration and GI consult recommended, GI evaluated and performed EGD which showed concern for eosinophilic esophagitis and temporary PEG tube placed and patient made n.p.o. With PEG in place tube feeds were started and after she was made n.p.o. O2 requirements did decrease with improvement in vital signs and no further fevers. She completed her course of Levaquin and overall was improved from admission, still weak and intermittently somewhat confused but suspect this is due to prolonged n.p.o. as well as delirium and multiple recent prolonged hospitalizations. After starting her tube feeds patient is more awake and alert, still confused and somewhat weak but more interactive and more able to participate in exam. Discussed with dietitian about dispo, it was reported if patient can tolerate tube feeds at 45 (goal rate) for 4 to 6 hours she would be reasonable for D/C/transfer back to [facility] from a nutrition standpoint. Patient was able to tolerate her tube feeds at goal for the recommended amount of time, patient vitally stable and overall stable for transition back to [facility] for further care. Patient has no further acute care or in hospital needs. Patient is stable for transition to [facility] for further management given her overall stability. No new or acute complaints on day of discharge. Discharge instructions as followed: - You had a temporary PEG tube placed and will need tube feeds at this time given concerns for aspiration. Per dietitian ?Recommend Jevity 1.5 at 45mL/hr x24 hours with 160mL water flush q4 hours to provide 1620kcal, 68.9 grams protein, and 1780mL water daily. Initiate at 10mL and advance by 15mL every 8-12 hours as tolerated to goal rate.? -You will need to follow-up with nutrition, per recommendation you will need to follow-up in 3 to 5 days -Speech therapy has recommended repeat MBSS in 1 to 2 weeks before considering diet advancement -You will need to follow-up with Dr. Kwan with GI in his office upon discharge. Please call his office to schedule an appointment (ph. [phone]) -Would recommend lab work (BMP) to check your potassium in 2 to 3 -Your Risperdal dose has been decreased and your Lyrica has been held due to making you overly sleepy, these can be adjusted further depending on clinical progress by physician assuming care -Please call your primary care provider's office upon discharge to schedule a hospital follow up within 1 week. -For any concerning signs or symptoms please call 911 or proceed to the nearest emergency department Allergies/Procedures Done in Hospital Allergies amantadine (From Symmetrel) Adverse Reaction (Severe, Verified 12/09/24 14:55) Unknown amoxicillin (From Augmentin) Adverse Reaction (Severe, Verified 12/09/24 14:55) Unknown clavulanic acid (From Augmentin) Adverse Reaction (Severe, Verified 10/30/24 11:00) Unknown erythromycin base Adverse Reaction (Severe, Verified 12/09/24 14:55) Unknown lorazepam (From Ativan) Adverse Reaction (Verified 12/09/24 14:55) restless Procedures: - (EGD with peg placement, multiple swallow evals) Type of Care/Length of Stay Estimated LOS: More Than 30 Days Type of Care Needed: Intermediate Rehab Potential: Fair Prognosis: Fair Additional Orders/Day of Discharge Day of Discharge: 12/11/24 Dietary and Speech Recommendations Dietitian Recommendations/Changes: -N.p.o. until repeat swallow eval- recommended repeat MBSS in 1-2 weeks -Kemar as needed to support wound healing; coccyx pressure injury noted red. - Recommend Jevity 1.5 at 45mL/hr x24 hours with 160mL water flush q4 hours to provide 1620kcal, 68.9 grams protein, and 1780mL water daily. Initiate at 10mL and advance by 15mL every 8-12 hours as tolerated to goal rate. Discharge Plan Admission Admit Date/Time: 12/04/24 14:39 Primary Reason for Your Visit: Confusion, concerns for aspiration Attending Provider: Sonali Rousseau Primary Care Provider: Jenaro Ayers Consulting Providers: Shiv Andrews; Valarie Silver Instructions Patient Instructions: Gastrostomy Feeding Tube Care ..., Understanding PEG Tube Feeding, Feeding Tube Additional Instructions / Restrictions: DISCHARGE INSTRUCTIONS PLEASE READ *Please take this with you to your next doctors appointment* - You had a temporary PEG tube placed and will need tube feeds at this time given concerns for aspiration. Per dietitian ?Recommend Jevity 1.5 at 45mL/hr x24 hours with 160mL water flush q4 hours to provide 1620kcal, 68.9 grams protein, and 1780mL water daily. Initiate at 10mL and advance by 15mL every 8-12 hours as tolerated to goal rate.? -You will need to follow-up with nutrition, per recommendation you will need to follow-up in 3 to 5 days -Speech therapy has recommended repeat MBSS in 1 to 2 weeks before considering diet advancement -You will need to follow-up with Dr. Kwan with GI in his office upon discharge. Please call his office to schedule an appointment (ph. [phone]) -Would recommend lab work (BMP) to check your potassium in 2 to 3 -Your Risperdal dose has been decreased and your Lyrica has been held due to making you overly sleepy, these can be adjusted further depending on clinical progress by physician assuming care -Please call your primary care provider's office upon discharge to schedule a hospital follow up within 1 week. -For any concerning signs or symptoms please call 911 or proceed to the nearest emergency department Discharge Orders/Prescriptions Prescriptions: New Jevity 1.5 Davide 0.06 gram-1.5 kcal/mL liquid See Rx Instructions .ROUTE .COMPLEX Qty: 5688 0RF Rx Instructions: Recommend Jevity 1.5 at 45mL/hr x24 hours with 160mL water flush q4 hours to provide 1620kcal, 68.9 grams protein, and 1780mL water daily. Initiate at 10mL and advance by 15mL every 8-12 hours as tolerated to goal rate. Continued garlic 200 mg tablet 200 mg PO DAILY cholecalciferol (vitamin D3) 25 mcg (1,000 unit) tablet 1,000 unit PO DAILY Eliquis 5 mg tablet 5 mg PO BID ferrous sulfate [Feosol] 325 mg (65 mg iron) tablet 325 mg PO BID lisinopril 20 mg tablet 20 mg PO DAILY sennosides-docusate sodium [Stimulant Laxative Plus] 8.6-50 mg Tablet 1 tab-cap PO BID metoprolol succinate 50 mg tablet extended release 24 hr 50 mg PO DAILY Qty: 90 3RF amlodipine 5 mg tablet 5 mg PO DAILY Qty: 90 3RF Changed risperidone 0.5 mg Tablet 0.25 mg PO QHS Qty: 0 0RF Discontinued pregabalin [Lyrica] 50 mg capsule 50 mg PO TID tamsulosin 0.4 mg Capsule 0.4 mg PO DAILY@1730 Qty: 0 0RF Referrals / Follow Up: Jenaro Ayers MD [Primary Care Provider] - Care Physician,No Primary [Non-Staff] - Disposition Disposition (needs filled in before D/C Order can be placed): NonSkilled NH/Intermed Care
--- NOTE | 2024-12-11 16:44 | DS.PCM_ITS ---
Providers Date of Admission: 12/04/24 Date of Discharge: 12/11/24 Primary Care Physician: Dr. Jenaro Ayers MD Consultations 12/04/24 16:18 Consult: Roll Up Guider Operator / Pulmonary Medicine Routine Consulting Provider: Intensivists/Pulmonary Med Reason for Consult: acute respiratory failure w/ flu A and possib aspiration pna EMERGENT Consult: No Notified: Yes Date Notified: 12/04/24 Time Notified: 14:56 Method of Notification: Text 12/08/24 11:00 Consult: Gastroenterology Routine Consulting Provider: [facility] Reason for Consult: persistent aspiration, abn UES opening, speech reg GI c/s EMERGENT Consult: No Notified: Yes Date Notified: 12/08/24 Time Notified: 12:14 Method of Notification: Text Reason For Visit: ACUTE RESPIRATORY FAILURE W/FLU A INFXN AND Diagnosis Discharge Diagnosis (1) Influenza A: Status: Acute Code(s): J10.1 - Influenza due to other identified influenza virus with other respiratory manifestations (2) Acute hypoxic respiratory failure: Status: Acute Code(s): J96.01 - Acute respiratory failure with hypoxia Plan # Acute hypoxic respiratory failure secondary to influenza A with aspiration pneumonia # Dysphagia with recurrent aspiration-concern for eosinophilic esophagitis on EGD # Recent DVT and PE # Hypertension # Chronic back pain # History of urinary retention with Lau in place # Cerebral palsy Medications at Discharge Home Medications garlic 200 mg tablet 200 mg PO DAILY 01/16/18 cholecalciferol (vitamin D3) 25 mcg (1,000 unit) tablet 1,000 unit PO DAILY 07/25/23 metoprolol succinate 50 mg tablet,extended release 24 hr 50 mg PO DAILY #90 TABLETS 01/22/24 amlodipine 5 mg tablet 5 mg PO DAILY #90 tabs 10/05/24 apixaban 5 mg tablet (Eliquis) 5 mg PO BID 12/04/24 ferrous sulfate 325 mg (65 mg iron) tablet (Feosol) 325 mg PO BID 12/04/24 lisinopril 20 mg tablet 20 mg PO DAILY 12/04/24 sennosides 8.6 mg-docusate sodium 50 mg tablet (Stimulant Laxative Plus) 1 tab- cap PO BID 12/04/24 lactose-reduced food with fiber 0.06 gram-1.5 kcal/mL oral liquid (Jevity 1.5 Davide) See Rx Instructions .Route .COMPLEX #5,688 mL 12/11/24 risperidone 0.5 mg tablet 0.25 mg (1/2 x 0.5 mg) PO QHS #0 tabs 12/11/24 Hospital Course Procedures - (EGD, PEG placement, multiple speech evaluations) Summary of Care Provided Minutes Spent on Discharge: 33 Hospital Course: # Acute hypoxic respiratory failure secondary to influenza A with aspiration pneumonia # Dysphagia with recurrent aspiration-concern for eosinophilic esophagitis on EGD # Recent DVT and PE # Hypertension # Chronic back pain # History of urinary retention with Lau in place # Cerebral palsy 79-year-old female with history as above as well as recent prolonged hospitalization at [facility] 10/30 through 11/11 with parainfluenza, Streptococcus bacteremia, back pain, urinary retention and falls subsequently discharged home in [facility] and then admitted to [facility] 11/21 through 11/30 with hyponatremia, UTI, acute DVT/PE and iron deficiency anemia subsequently discharged to [facility] on 11/30 Re-presented to [facility] ED 12/04/2024 due to nausea, vomiting, fevers, altered mental status. She had been mentating well but the night prior to arrival she had 2 episodes of vomiting there was concern for aspiration. In the ED she was found to be positive for influenza A and CT chest/abdomen/pelvis showed increased markings at bilateral lung bases but otherwise overall unremarkable. She was noted however to be hypoxic and was placed on Airvo in the ED. Patient ultimately weaned to nasal cannula however intermittently would have desaturations and fevers and repeat speech evaluation showed consistent aspiration and GI consult recommended, GI evaluated and performed EGD which showed concern for eosinophilic esophagitis and temporary PEG tube placed and patient made n.p.o. With PEG in place tube feeds were started and after she was made n.p.o. O2 requirements did decrease with improvement in vital signs and no further fevers. She completed her course of Levaquin and overall was improved from admission, still weak and intermittently somewhat confused but suspect this is due to prolonged n.p.o. as well as delirium and multiple recent prolonged hospitalizations. After starting her tube feeds patient is more awake and alert, still confused and somewhat weak but more interactive and more able to participate in exam. Discussed with dietitian about dispo, it was reported if patient can tolerate tube feeds at 45 (goal rate) for 4 to 6 hours she would be reasonable for D/C/transfer back to [facility] from a nutrition standpoint. Patient was able to tolerate her tube feeds at goal for the recommended amount of time, patient vitally stable and overall stable for transition back to [facility] for further care. Patient has no further acute care or in hospital needs. Patient is stable for transition to [facility] for further management given her overall stability. No new or acute complaints on day of discharge. Discharge instructions as followed: - You had a temporary PEG tube placed and will need tube feeds at this time given concerns for aspiration. Per dietitian ?Recommend Jevity 1.5 at 45mL/hr x24 hours with 160mL water flush q4 hours to provide 1620kcal, 68.9 grams protein, and 1780mL water daily. Initiate at 10mL and advance by 15mL every 8-12 hours as tolerated to goal rate.? -You will need to follow-up with nutrition, per recommendation you will need to follow-up in 3 to 5 days -Speech therapy has recommended repeat MBSS in 1 to 2 weeks before considering diet advancement -You will need to follow-up with Dr. Kwan with GI in his office upon discharge. Please call his office to schedule an appointment (ph. [phone]) -Would recommend lab work (BMP) to check your potassium in 2 to 3 -Your Risperdal dose has been decreased and your Lyrica has been held due to making you overly sleepy, these can be adjusted further depending on clinical progress by physician assuming care -Please call your primary care provider's office upon discharge to schedule a hospital follow up within 1 week. -For any concerning signs or symptoms please call 911 or proceed to the nearest emergency department Physical Exam Narrative General: More alert today, cooperative, answering questions HEENT: Atraumatic Eyes: Anicteric Neck: Supple Respiratory: Improving respiratory effort, stools cough, still some crackles at the bases Cardiovascular: Regular rate and rhythm GI: Soft, nontender, nondistended Extremities: No pitting Musculoskeletal: Moving all extremities in bed Neuro: No overt focal neurological deficits, history of a positive baseline Skin: No rashes appreciated Psych: Cooperative Weight / BMI Weight Weight: 65.635 kg Body Mass Index (BMI) 23.2 ABG / Lab / Microbiology Data 12/11/24 06:31 12/11/24 06:31 Laboratory: Laboratory Results - last 24 hr 12/11/24 06:31: WBC 7.4, RBC 3.24 L, Hgb 9.6 L, Hct 30.4 L, MCV 93.8, MCH 29.6, MCHC 31.6 L, RDW Std Deviation 50.5 H, RDW Coeff of Roselyn 14.7 H, Plt Count 346, MPV 10.4, Immature Gran % (Auto) 2.600 H, Neut % (Auto) 65.8, Lymph % (Auto) 22.5, [place] % (Auto) 8.5, Eos % (Auto) 0.3, Baso % (Auto) 0.3, Absolute Neuts (auto) 4.9, Absolute Lymphs (auto) 1.67, Nucleated RBC % 0, Differential Comment , Sodium 138, Potassium 3.1 L, Chloride 102, Carbon Dioxide 21.2, Anion Gap 14, BUN 11, Creatinine 0.43 L, Estim Creat Clear Calc 55.13, Est GFR (MDRD) Non-Af 100, BUN/Creatinine Ratio 26.2 H, Glucose 141 H, Calcium 8.2, Phosphorus 2.3 L, Magnesium 1.8 Microbiology: Microbiology 12/08/24 17:09 Blood Culture (Wb) - Venous Blood Culture - Preliminary No growth in 48 hours. 12/08/24 17:09 Blood Culture (Wb) - Venous Blood Culture - Preliminary No growth in 48 hours. 12/08/24 18:15 Urine Catheter - Lau Urine Culture - Final Culture exhibits no growth. 12/04/24 12:31 Blood Culture (Wb) - Right Wrist Blood Culture - Final No growth in 5 days. 12/04/24 12:00 Blood Culture (Wb) - Venous Blood Culture - Final No growth in 5 days. 12/04/24 11:57 Urine Catheter - Lau Urine Culture - Final Culture exhibits no growth. 12/04/24 11:56 Mucosa - Nose SARS-CoV-2, Influenza & RSV (PCR) - Final Influenzae A D/C Instructions DC O2, CPAP, BIPAP Needs PSN CPAP & BiPAP: BiPAP & CPAP Settings per PSN Mode AIRVO 12/04/24 12:20 Bipap Delivery Device Nasal Pillows 12/04/24 11:50 Fraction of Inspired Oxygen ( 55 12/09/24 15:07 FIO2) Total Flow Rate 50 12/04/24 12:20 Home O2 Discharge instructions: Yes Type of respiratory needs?: Oxygen (2) Oxygen frequency: Continuous Continuous oxygen liters per minute: 2 DC home with Oxygen: No Meaningful Use Info Meaningful Use Meaningful Use Diagnoses (Choose all that apply): None applicable Ischemic Stroke Statin Dosing Therapy Reference: STATIN DOSE THERAPY REFERENCE: * Patients > 75 years receive moderate or high dose statin therapy. * Patients 75 years or YOUNGER should receive HIGH intensity statin dose unless contraindicated. You will be required to document reason for non-treatment if statin daily dose does not meet guidelines. HIGH DOSE STATIN THERAPY DAILY Atorvastatin > than or = to 40 mg Rosuvastatin > than or = to 20 mg Amlodipine + Atorvastatin > than or = to 2.5/40 mg Ezetimibe + Simvastatin 10/80 mg Simvastatin 80mg Discharge Plan Admission Admit Date/Time: 12/04/24 14:39 Primary Reason for Your Visit: Confusion, concerns for aspiration Attending Provider: Sonali Rousseau Primary Care Provider: Jenaro Ayers Consulting Providers: Shiv Andrews; Valarie Silver Instructions Patient Instructions: Gastrostomy Feeding Tube Care ..., Understanding PEG Tube Feeding, Feeding Tube Additional Instructions / Restrictions: DISCHARGE INSTRUCTIONS PLEASE READ *Please take this with you to your next doctors appointment* - You had a temporary PEG tube placed and will need tube feeds at this time given concerns for aspiration. Per dietitian ?Recommend Jevity 1.5 at 45mL/hr x24 hours with 160mL water flush q4 hours to provide 1620kcal, 68.9 grams protein, and 1780mL water daily. Initiate at 10mL and advance by 15mL every 8-12 hours as tolerated to goal rate.? -You will need to follow-up with nutrition, per recommendation you will need to follow-up in 3 to 5 days -Speech therapy has recommended repeat MBSS in 1 to 2 weeks before considering diet advancement -You will need to follow-up with Dr. Kwan with GI in his office upon discharge. Please call his office to schedule an appointment (ph. [phone]) -Would recommend lab work (BMP) to check your potassium in 2 to 3 -Your Risperdal dose has been decreased and your Lyrica has been held due to making you overly sleepy, these can be adjusted further depending on clinical progress by physician assuming care -Please call your primary care provider's office upon discharge to schedule a hospital follow up within 1 week. -For any concerning signs or symptoms please call 911 or proceed to the nearest emergency department Discharge Orders/Prescriptions Prescriptions: New Jevity 1.5 Davide 0.06 gram-1.5 kcal/mL liquid See Rx Instructions .ROUTE .COMPLEX Qty: 5688 0RF Rx Instructions: Recommend Jevity 1.5 at 45mL/hr x24 hours with 160mL water flush q4 hours to provide 1620kcal, 68.9 grams protein, and 1780mL water daily. Initiate at 10mL and advance by 15mL every 8-12 hours as tolerated to goal rate. Continued garlic 200 mg tablet 200 mg PO DAILY cholecalciferol (vitamin D3) 25 mcg (1,000 unit) tablet 1,000 unit PO DAILY Eliquis 5 mg tablet 5 mg PO BID ferrous sulfate [Feosol] 325 mg (65 mg iron) tablet 325 mg PO BID lisinopril 20 mg tablet 20 mg PO DAILY sennosides-docusate sodium [Stimulant Laxative Plus] 8.6-50 mg Tablet 1 tab-cap PO BID metoprolol succinate 50 mg tablet extended release 24 hr 50 mg PO DAILY Qty: 90 3RF amlodipine 5 mg tablet 5 mg PO DAILY Qty: 90 3RF Changed risperidone 0.5 mg Tablet 0.25 mg PO QHS Qty: 0 0RF Discontinued pregabalin [Lyrica] 50 mg capsule 50 mg PO TID tamsulosin 0.4 mg Capsule 0.4 mg PO DAILY@1730 Qty: 0 0RF Referrals / Follow Up: Jenaro Ayers MD [Primary Care Provider] - Care Physician,No Primary [Non-Staff] - Disposition Disposition (needs filled in before D/C Order can be placed): NonSkilled NH/Intermed Care Charges/Coding Visit Charges Inpatient E&M: 88633 Disch Hosp >30min
== END 2024-12-11 19:34 | disposition intermediate care facility (04) | DRG 177 ==
LOC: ED 14:44 → ICU 15:03 → MS2 12-06 20:19 → PCU 12-10 17:19
PROVIDERS: Internal Medicine Gastroenterology; Student in an Organized Health Care Education/Training Program; Admitting Provider Hospitalist; Emergency Provider Emergency Medicine; PCP Family Medicine; Visit Provider Internal Medicine
PROC: 0DJ08ZZ Inspection of Upper Intestinal Tract, Via Natural or Artificial Opening Endoscopic (ICD-10-PCS; CPT 43235; principal; 2024-12-09 15:40)
DX: J69.0 Pneumonitis due to inhalation of food and vomit (principal); G92.8 Other toxic encephalopathy; I26.99 Other pulmonary embolism without acute cor pulmonale; J96.01 Acute respiratory failure with hypoxia; E44.0 Moderate protein-calorie malnutrition; I82.433 Acute embolism and thrombosis of popliteal vein, bilateral; G80.9 Cerebral palsy, unspecified; I10 Essential (primary) hypertension; D50.9 Iron deficiency anemia, unspecified; J10.1 Influenza due to other identified influenza virus with other respiratory manifestations; R11.10 Vomiting, unspecified; K20.0 Eosinophilic esophagitis; R00.1 Bradycardia, unspecified; M54.9 Dorsalgia, unspecified; R13.10 Dysphagia, unspecified; Z86.718 Personal history of other venous thrombosis and embolism; Z90.710 Acquired absence of both cervix and uterus; R62.7 Adult failure to thrive; Z82.62 Family history of osteoporosis; Z79.01 Long term (current) use of anticoagulants; Z68.23 Body mass index [BMI] 23.0-23.9, adult; Z79.899 Other long term (current) drug therapy; R33.9 Retention of urine, unspecified; R50.9 Fever, unspecified; Z96.0 Presence of urogenital implants; G89.29 Other chronic pain
CPT/HCPCS: 31720; 36415; 70450; 71045; 71260; 74177; 74230; 80048; 80053; 81001; 83605; 83735; 84100; 84145; 85025; 85027; 85610; 85730; 87040; 87086; 87631; 88305; 88312; 92526; 92610; 92611; 93005; 94660; 94668; 97162; 97166; 97530; 97535; 97802; 97803; 99285; Q9967; A4216; J1940; J2405

== ENCOUNTER 2024-12-13 03:14 | Emergency (ER) | payer MEDICARE, SELFPAY ==
[2024-12-13] VITALS (28 sets, daily range): BP systolic 76–174; BP diastolic 47–80; PULSE 90–158; RESP 14–51; TEMP 36.5–39.1; O2SAT 90–100; BMI 23.6
--- NOTE | 2024-12-13 03:37 | EKG12_ITS ---
Test Reason : SOB Blood Pressure : */* mmHG Vent. Rate : 138 BPM Atrial Rate : 138 BPM P-R Int : 132 ms QRS Dur : 72 ms QT Int : 300 ms P-R-T Axes : 78 56 82 degrees QTcB Int : 454 ms Sinus tachycardia Nonspecific T wave abnormality Abnormal ECG Confirmed by OTTO SEGOVIA, DAVID ([id number]), news videotape editor SINDY CEVALLOS ([id number]) on 12/14/2024 8:20:32 AM Referred By: EDDIE Confirmed By: DAVID MENJIVAR MD
[2024-12-13] MEDS: Etomidate 20 MG/10 ML Vial IV (03:41)
[2024-12-13] MEDS: Rocuronium Bromide 50 MG/5 ML Vial IV (03:41)
--- NOTE | 2024-12-13 03:45 | RAD_ITS ---
PROCEDURE: CHEST 1 VIEW (PORTABLE) 12/13/2024 REASON FOR EXAM: INTUBATION TECHNIQUE: Frontal view of the chest. COMPARISON: 12/07/2024 FINDINGS: Endotracheal tube 4.8 cm above the leeanna. There is now new patchy ill-defined airspace opacity at the right base. The right lung otherwise appears clear. No significant interval change in patchy left perihilar and left base airspace opacity. The cardiac and mediastinal contours appear within limits. RAD/Chest 1 View (Portable) IMPRESSION: Endotracheal tube 4.8 cm above the leeanna. New airspace opacity at the right base which may represent worsening pneumonia or possible aspiration. No significant interval change in airspace opacities left lung. Reading Location: [id number]
[2024-12-13 03:52] LABS: Absolute Lymphocyte Count 2.39 X10^3/uL (0.83-4.51); Absolute Neutrophil Count 20.4 X10^3/uL (2.0-7.7); Basophil# 0.03 X10^3/uL; Basophil% 0.1 % (0-1); Hematocrit 35.4 % (37-47); Hemoglobin 10.9 g/dL (12.0-15.0); Lymphocyte # 2.39 X10^3/ul (0.83-4.51); Lymphocyte % 9.5 % (19-41); Mean Corp Hgb Conc 30.8 g/dL (32-36); Mean Corpuscular Hgb 29.9 pg (27.0-32.0); Mean Corpuscular Volume 97.3 fL (81-99); Mean Platelet Vol. 10.3 fl (6.2-12.0); Monocyte# 1.47 X10^3/uL; Monocyte% 5.9 % (0-10); NRBC Flagged by Analyzer 0 % (0-5); Neutrophil # 20.35 X10^3/uL (2.7-7.7); Neutrophil % 81.2 % (47-70); POSITIVE DIFFERENTIAL YES; POSITIVE MORPHOLOGY YES; Platelet Count 409 K/mm3 (150-450); RBC Distribution Width CV 15.3 % (11.6-14.6); RBC Distribution Width SD 54.1 fl (35.1-43.9); Red Blood Count 3.64 M/mm3 (4.2-5.4); White Blood Count 25.1 K/mm3 (4.4-11.0)
[2024-12-13] MEDS: Propofol 10MG/Ml 1,000 MG/100 ML Bottle 4 MG CONT INF (03:52)
[2024-12-13 03:54] LABS: Differential Indicated SCAN CRITERIA MET
[2024-12-13] MEDS: Furosemide 100 MG/10 ML Vial 60 MG IV (04:03)
[2024-12-13 04:04] LABS: International Normalized Ratio 1.4; Prothrombin Time (Protime)PT. 17.1 SECONDS (11.7-14.9)
[2024-12-13 04:09] LABS: Allen Test Positive; Base Excess 1 mmol/L (-2 to +2); Bicarbonate 26.8 mmol/L (22-26); Blood Gas Specimen Type ART; Mode AC; O2 Delivery Device ET Tube; PEEP 5; PO2 84 mmHG (75-100); RR 14; SITE L Radial; SO2 95 % (95-99); Total Carbon Dioxide 28 mmol/L; pCO2 50.1 mmHg (35-45); pH 7.34 (7.35-7.45)
[2024-12-13 04:09] LABS: Partial Thromboplast Time 28.3 Seconds (24.1-36.2)
[2024-12-13 04:15] LABS: Magnesium 1.8 mg/dL (1.5-2.2); Pro- Brain NATRIURETIC PEPTIDE 789 pg/mL (<=1800); Troponin T High Sensitivity 27 ng/L (<=14)
--- NOTE | 2024-12-13 04:20 | ED.RN ---
spoke w/sister, eric re:pt's poc.
[2024-12-13 04:23] LABS: Mucous, Urine 0 SEEN /hpf (<or=2+)
[2024-12-13 04:26] LABS: Color, Urine Brown (Yellow); Glucose, Dipstick 50 mg/dl (Normal); Ketone-Dipstick 5 mg/dl (Negative); Leukocyte Esterase-Dipstick 100 /ul (Negative); Nitrite-Dipstick Positive (Negative); Occult Blood-Urine 250 /ul (Negative); Protein-Dipstick 500 mg/dl (Negative); Specific Gravity, Urine 1.025 (1.002-1.030); Urine Clarity Cloudy (Clear); Urine Urobilinogen 4 mg/dl (Normal)
[2024-12-13 04:33] LABS: Atypical Lymphocyte 1+ %; Differential Comment SCANNED
[2024-12-13 04:38] LABS: Bacteria 2+ /hpf (None Seen); Red Blood Cells-Urine > 100 SEEN /hpf (0-5); Renal Epithelial Cells 0-5 SEEN /hpf (0-5); Squamous Epithelial Cells - UA 0 SEEN /hpf (5-10); Urine Bilirubin Dipstick 1 mg/dL (Negative); White Blood Cells 5-10 SEEN /hpf (0-5)
[2024-12-13 04:40] LABS: ALB/GLOB Ratio 0.8 RATIO (0.9-2.4); AST(SGOT) 33 U/L (<=31); Alanine Aminotransfer ALT/SGPT 14 U/L (<=34); Albumin, Serum 2.8 g/dL (3.4-4.8); Alkaline Phosphatase 101 U/L (35-104); Anion Gap 14 (5-15); BUN 14 mg/dL (4-19); BUN/Creat Ratio 24.7 RATIO (10-20); Calcium,Total 8.2 mg/dL (7.6-11.0); Carbon Dioxide 20.4 mmol/L (21.0-32.0); Chloride 106 mmol/L (98-108); Creatinine, Serum 0.56 mg/dL (0.70-1.20); EST Glomerular Filtration Rate 94 (>60); Estimated Creatinine Clearance 55.13 ml/min (50-250); Globulin 3.3 g/dL (2.2-4.2); Glucose 212 mg/dL (70-99); Potassium 4.2 mmol/L (3.3-5.1); Protein, Total 6.1 g/dL (5.9-8.4); Sodium Level 140 mmol/L (133-145); Total Bilirubin 0.33 mg/dL (0.00-1.30)
[2024-12-13 04:41] LABS: Lactic Acid 3.7 mmol/L (0.0-2.0)
--- NOTE | 2024-12-13 04:43 | CT_ITS ---
PROCEDURE: CTA CHEST W/WO CONTRAST REASON FOR EXAM: RESPIRATORY FAILURE TECHNIQUE: CTA of the chest with coronal and sagittal and MIP reformatted images 3D reconstructions. IV CONTRAST: 100 cc Isovue 370 COMPARISON: 12/04/2024 FINDINGS: Endotracheal tube in place above the leeanna. Respiratory motion artifact significantly limits the segmental and subsegmental evaluation. No convincing filling defect to suggest pulmonary embolism identified. No large central or hilar saddle embolism. Thoracic aorta appears within limits. There is now a pericardial effusion which measures around 1 cm in areas. Mild cylindrical appearing bilateral bronchiectasis. The segmental and subsegmental lower lobe airway soft tissue opacification in the left lower lobe is decreased from the prior with some subsegmental opacification persisting. Interval increase in areas of subsegmental airway opacification right lower lobe basal segments. The central airways are patent. Similar appearance of patchy airspace opacities left lung now with increased patchy opacity right base. Some areas of tree-in-bud nodularity may represent small airways disease, atypical pneumonia. Mild increased appearance of consolidative change at the left base. Increase in the size of the small left pleural effusion. Bilateral dependent areas of atelectasis and partial collapse of the lower lobes. There is again note of significant appearing narrowing of the proximal celiac trunk over proximally 1.9 cm segment sagittal 159 and axial 15 and 13 for example with contrast seen beyond. May follow-up with vascular consult. CT/CTA Chest W/WO Contrast IMPRESSION: Endotracheal tube in place above the leeanna. Respiratory motion artifact significantly limits the segmental and subsegmental evaluation. No convincing filling defect to suggest pulmonary embolism identified. No large central or hilar saddle embolis m. There is now a pericardial effusion which measures around 1 cm in areas. Bilateral lower lobe airway opacification subsegmental basal as above which may represent secretions/mucus plugging with aspirate not excluded. Similar appearance of patchy airspace opacities left lung now with increased pa tchy opacity right base. Some areas of tree-in-bud nodularity may represent small airways disease, atypical pneumonia. Mild increa sed appearance of consolidative change at the left base. Increase in the size of the small left pleural effusion. Bilateral dependent areas of atelectasis and partial collapse of the lower lobe s. One or more dose reduction techniques were used (e.g., Automated exposure contr ol, adjustment of the mA and/or kV according to patient size, use of iterative reconstruction technique). Reading Location: [id number]
--- NOTE | 2024-12-13 04:43 | CT_ITS ---
PROCEDURE: ABDOMEN/PELVIS W IV CONT ONLY REASON FOR EXAM: RECENT PEG LEUKOCYTOSIS TECHNIQUE: CT of the abdomen and pelvis with coronal and sagittal reformatted images IV CONTRAST: 100 cc Isovue 370 COMPARISON: None. FINDINGS: Peg tube noted. [id number] amount of colonic stool containing retained contrast material. May represent constipation. Rectum contains stool measuring up to 7.7 cm may represent degree of fecal impaction. The occlusive appearing DVT/thrombus within the left common femoral, external iliac near its confluence as it crosses over the lumbosacral spine is more conspicuous on the current study. Abnormal appearance of the L5-S1 disc space with irregular endplates and sclerotic osseous changes with soft tissue widening and thickening, possible erosive change anteriorly of the S1 segment again seen and concerning for possible discitis/osteomyelitis and may be resulting in the thrombosis of the left iliac and femoral system. Clinically correlate and requires further workup. Presacral stranding and edema, swelling not significantly changed axial 84 and sagittal 76. The liver, gallbladder, adrenal glands, kidneys, spleen and pancreas appear within limits as visualized. No bowel dilation or free air. Anasarca. Lau within a mostly collapsed bladder. There is again note of a high-grade appearing narrowing of the proximal celiac trunk approximately 2 cm in length with contrast seen beyond. Requires follow-up vascular consult. CT/Abdomen/Pelvis W IV Cont ONLY IMPRESSION: The occlusive appearing DVT/thrombus within the left common femoral, external i liac near its confluence as it crosses over the lumbosacral spine is more conspicuous on the current study. Abnormal appearance of the L5-S1 disc space with irregular endplates and sclerotic osseous changes with soft tissue widening and thickening, possibl e erosive change anteriorly of the S1 segment again seen and concerning for possible discitis/osteomyelitis and may be result ing in the thrombosis of the left iliac and femoral system. Clinically correlate and requires further workup. Presacral str anding and edema, swelling not significantly changed axial 84 and sagittal 76. There is again note of a high-grade appearing narrowing of the proximal celiac trunk approximately 2 cm in length with contrast seen beyond. Requires follow-up vascular consult. [id number]-eb-macco fecal burden with possible degree of rectal fecal impaction a s above. One or more dose reduction techniques were used (e.g., Automated exposure contr ol, adjustment of the mA and/or kV according to patient size, use of iterative reconstruction technique). Reading Location: [id number]
--- NOTE | 2024-12-13 05:00 | EDS_ITS ---
HPI History of Present Illness Chief Complaint: Shortness of Breath Informant: EMS and SNF Narrative Narrative: 79-year-old female arriving to the emergency department via EMS with respiratory failure. Patient reportedly was admitted in September with parainfluenza virus. She had complications with urinary retention as well as Streptococcus bacteremia. 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 Patient was admitted again most recently with influenza infection and respiratory failure but did not require intubation. She also had evidence of aspiration and a PEG tube was placed. Tonight was reportedly found with a pulse ox of around 53%. EMS notes they placed her on CPAP because of white frothy fluid from the mouth. They were able to get her oxygen saturations up into the 70s. Patient cannot provide any history and so all history is gleaned from the existing chart and from what paperwork the senior living sent with her. It is stamped as she is a full code and that is what we have and are charting. She is also reported that she has an indwelling Lau catheter due to urinary retention. [facility] Medical History Anxiety Depression Osteoporosis Non-smoker Cerebral palsy Cataract Palpitations Elevated blood pressure reading without diagnosis of hypertension Essential (primary) hypertension Home Medications ?Medication ?Instructions ?Recorded ?Last Taken ?Type garlic 200 mg tablet 200 mg PO DAILY 01/16/18 Unk nown History cholecalciferol (vitamin D3) 25 1,000 unit PO DAILY Unknown History mcg (1,000 unit) tablet metoprolol succinate 50 mg 50 mg PO DAILY #90 TABLETS 01/22/24 Unknown Rx tablet,extended release 24 hr amlodipine 5 mg tablet 5 mg PO DAILY #90 tabs 10/05 Unknown Rx apixaban 5 mg tablet (Eliquis) 5 mg PO BID 12/04/24 Un known History ferrous sulfate 325 mg (65 mg 325 mg PO BID 12/04/24 U nknown History iron) tablet (Feosol) lisinopril 20 mg tablet 20 mg PO DAILY 12/04/24 Unkn own History sennosides 8.6 mg-docusate sodium 1 tab-cap PO BID 04/23 Unknown History 50 mg tablet (Stimulant Laxative Plus) lactose-reduced food with fiber See Rx Instructions .R oute 03/14/25 Unknown Rx 0.06 gram-1.5 kcal/mL oral liquid .COMPLEX #5,688 mL (Jevity 1.5 Davide) risperidone 0.5 mg tablet 0.25 mg (1/2 x 0.5 mg) PO QH S #0 12/11/24 Unknown Rx tabs Allergy/AdvReac Type Severity Reaction Status Date / Time amantadine (From Symmetrel) AdvReac Severe Unknown Verified 12/09/24 14:55 amoxicillin (From Augmentin) AdvReac Severe Unknown Verified 12/09/24 14:55 clavulanic acid (From AdvReac Severe Unknown Verified 10/30/24 11:00 Augmentin) erythromycin base AdvReac Severe Unknown Verified 12/09/24 14:55 lorazepam (From Ativan) AdvReac restless Verified 12/09/24 14:55 Family History Father Diabetes Hypertension Mother alzhemier Osteoporosis Surgical History History of tonsillectomy History of hysterectomy History of hip replacement Social History Smoking Status: Never smoker alcohol intake: never substance use type: does not use caffeine: Yes Type: coffee Number of servings: 3 what type of physical activity do you participate in: none seatbelt use: always do you feel safe at home: Yes ROS ROS ED Review of Systems ROS Unobtainable: due to mental status EXAM Physical Exam Narrative Exam Narrative: Patient is showing signs of respiratory failure (fatigue slowing respiratory rate inability to oxygenate and unresponsiveness) Const Vital Signs: 12/13/24 03:16 12/13/24 03:20 12/13/24 03:25 Temperature 97.7 F L 97.9 F Temperature Source Temporal Temporal Pulse Rate 154 H 157 H 141 H Respiratory Rate 51 H 47 H 14 Respiratory Effort Respiratory Pattern Normal Blood Pressure 162/78 H 162/78 H Blood Pressure Mean 106 106 Pulse Ox 90 97 99 Oxygen Delivery Method Bi-pap Bi-pap Oxygen Flow Rate (L/min) Fraction of Inspired Oxygen (FIO2) 100 100 100 12/13/24 03:45 12/13/24 03:48 03/16/25 03:50 Temperature Temperature Source Pulse Rate 140 H Respiratory Rate 14 Respiratory Effort Short of Breath Labored Respiratory Pattern Tachypnea Blood Pressure 174/80 H Blood Pressure Mean 111 Pulse Ox 100 100 Oxygen Delivery Method Mechanical Ventilator CPAP Mechanical Ventilator Oxygen Flow Rate (L/min) 10 Fraction of Inspired Oxygen (FIO2) 12/13/24 04:15 12/13/24 04:30 12/13/24 05:00 Temperature 102.4 F H Temperature Source Axillary Pulse Rate 158 H 154 H 140 H Respiratory Rate 19 H 20 H 20 H Respiratory Effort Respiratory Pattern Blood Pressure 136/79 H 140/75 H 91/59 L Blood Pressure Mean 98 96 69 Pulse Ox 99 97 100 Oxygen Delivery Method Mechanical Ventilator Mechanical Ventilator Mechanical Ventilator Oxygen Flow Rate (L/min) Fraction of Inspired Oxygen (FIO2) 12/13/24 05:05 12/13/24 05:30 12/13/24 06:00 Temperature Temperature Source Pulse Rate 139 H 140 H 137 H Respiratory Rate 26 H 22 H 22 H Respiratory Effort Respiratory Pattern Tachypnea Blood Pressure 113/79 76/47 L Blood Pressure Mean 90 56 Pulse Ox 100 99 98 Oxygen Delivery Method Mechanical Ventilator Mechanical Ventilator Oxygen Flow Rate (L/min) Fraction of Inspired Oxygen (FIO2) 80 12/13/24 06:16 12/13/24 06:19 Temperature Temperature Source Pulse Rate Respiratory Rate Respiratory Effort Respiratory Pattern Blood Pressure 88/52 L 89/52 L Blood Pressure Mean 64 64 Pulse Ox Oxygen Delivery Method Oxygen Flow Rate (L/min) Fraction of Inspired Oxygen (FIO2) Positive well nourished and well developed General Appearance ED: well developed HEENT Reports normocephalic, head/scalp atraumatic and moist mucous membranes HEENT Narrative: White frothy fluid coming from mouth Eyes PERRL and EOMs intact bilaterally Neck no lymphadenopathy, supple and no JVD Resp Resp Narrative: Respiratory failure slowing respiratory rate and agonal gasping Cardio regular rate, regular rhythm and no murmurs Rate: tachycardic GI normal to inspection, nondistended, normoactive bowel sounds and non-tender GI Narrative: PEG tube placement Auscultation: normoactive bowel sounds Palpation: soft Extremity General Extremety ED: Yes edema General Extremity: edema bilateral Neuro Neuro Narrative: Patient is unresponsive to voice and light touch. She has minimal response to sternal rub Psych Psych Narrative: Unable to assess Skin no wounds Skin Narrative: She has mottling of the bilateral lower extremities MDM MDM MDM Narrative Medical decision making narrative: Patient was transitioned from EMS CPAP to BiPAP as we prepared for intubation. Her pulse ox never achieved greater then 87%. Patient underwent rapid sequence intubation use etomidate and rocuronium. Endotracheal tube was placed on the first attempt without significant difficulty and secured at 23 cm. Copious amounts of white frothy fluid were noted. ABG shows a pH of 7.337 pCO2 50.1 PaO2 of 84.3 HCO3 26.8. This was drawn on FiO2 of 50% while on the ventilator. Labs were sent. My independent interpretation of the single view postintubation x-ray is adequate placement of the endotracheal tube. There is bilateral lower lung field opacities which appear worse than prior. Patient's white count is noted to be significantly elevated 25.1 hemoglobin 10.9 platelet count of 409. Creatinine is 0.56 lactic acid 3.7 magnesium 1.8 potassium 4.2 sodium of 140. BNP elevated at 781 troponin 27 urinalysis with 5-10 white cells greater than 100 red cells 2+ bacteria positive nitrates. Blood and urine cultures were sent. Because of the concern for aspiration as well as an apparent UTI we gave Levaquin as well as clindamycin. There was a reported unknown allergy to Augmentin/amoxicillin. CTA of the chest and CT of the abdomen pelvis was obtained. While awaiting these to be read by radiology patient's blood pressure started to decrease and her temperature magda to 102.4. IV fluids were started and preparations were made for central line placement. Propofol was weaned down as a potential cause of the hypotension. Her CTA of her chest shows worsening infiltrates and mucous plugging which I suspect is probably aspiration and a degree of pulmonary edema. There is a small pericardial effusion noted. No large central pulmonary embolism noted. CT abdomen pelvis was obtained. I discussed this directly with the radiologist. There is noted to be clotting of the left femoral and external iliac vein as it crosses over the lumbosacral spine. Of particular note is the disc space and vertebrae of L5-S1. This r aises concern for discitis/osteomyelitis. Patient underwent a central line placement of the right internal jugular using sterile ultrasound guidance and modified Seldinger technique central line was placed in the first attempt without any difficulty. Dark red nonpulsatile blood was obtained. My independent interpretation of the post procedure films is no pneumothorax adequate placement of central line. Initially we gave the patient Levaquin and clindamycin to cover for aspiration pneumonia. This also should provide some urinary coverage until cultures return. After the return of the CT of the abdomen pelvis results vancomycin was also added. Patient has received about 2 L of IV fluids. Her blood pressure is History & Record Review Discussion w/independent historian: EMS personnel Additional record(s) reviewed:: Prior inpatient record, Prior ED visit and Prior labs Lab Data Attestation: I reviewed the patient's lab results. Labs: Laboratory Results - last 24 hr 12/13/24 12/13/24 12/13/24 03:38 03:40 04:15 WBC 25.1 H RBC 3.64 L Hgb 10.9 L Hct 35.4 L MCV 97.3 MCH 29.9 MCHC 30.8 L RDW Std Deviation 54.1 H RDW Coeff of Roselyn 15.3 H Plt Count 409 MPV 10.3 Immature Gran % (Auto) 3.300 H Neut % (Auto) 81.2 H Lymph % (Auto) 9.5 L [place] % (Auto) 5.9 Eos % (Auto) 0.0 Baso % (Auto) 0.1 Absolute Neuts (auto) 20.4 H Absolute Lymphs (auto) 2.39 Nucleated RBC % 0 Differential Comment SCANNED Atypical Lymphocytes 1+ PT 17.1 H INR 1.4 APTT 28.3 Sodium 140 Potassium 4.2 Chloride 106 Carbon Dioxide 20.4 L Anion Gap 14 BUN 14 Creatinine 0.56 L Estim Creat Clear Calc 55.13 Est GFR (MDRD) Non-Af 94 BUN/Creatinine Ratio 24.7 H Glucose 212 H Lactic Acid 3.7 H* Calcium 8.2 Magnesium 1.8 Total Bilirubin 0.33 AST 33 H ALT 14 Alkaline Phosphatase 101 Troponin T High Sens 27 H NT pro BNP II 789 Total Protein 6.1 Albumin 2.8 L Globulin 3.3 Albumin/Globulin Ratio 0.8 L Urine Color Brown Urine Clarity Cloudy Urine pH 5.0 Ur Specific [place] 1.025 Urine Protein 500 H Urine Glucose (UA) 50 H Urine Ketones 5 H Urine Occult Blood 250 H Urine Nitrite Positive H Urine Bilirubin 1 H Urine Urobilinogen 4 H Ur Leukocyte Esterase 100 H Urine RBC > 100 SEEN Urine WBC 5-10 SEEN Ur Squamous Epith Cells 0 SEEN Ur Renal Epithelial Cell 0-5 SEEN Urine Bacteria 2+ Urine Mucus 0 SEEN ABG Data ABG results: ABG 12/13/24 04:05 Specimen Type ART Sample Site L Radial pH 7.34 L Bicarbonate Actual 26.8 H Total CO2 28 Base Excess 1 O2 Saturation 95 O2 % 50.0 ABG pCO2 50.1 H ABG pO2 84 Roly Test Positive Respiration Rate 14 O2 Delivery Device ET Tube Vent Mode AC Tidal Volume 450.0 POC PEEP 5 Radiography Diagnostic Testing: Clinical Impression(s) from Imaging Studies Chest X-Ray 12/13/24 03:45 IMPRESSION: Endotracheal tube 4.8 cm above the leeanna. New airspace opacity at the right base which may represent worsening pneumonia or possible aspiration. No significant interval change in airspace opacities left lung. Reading Location: [facility] Abdomen/Pelvis CT 12/13/24 04:43 IMPRESSION: The occlusive appearing DVT/thrombus within the left common femoral, external iliac near its confluence as it crosses over the lumbosacral spine is more conspicuous on the current study. Abnormal appearance of the L5-S1 disc space with irregular endplates and sclerotic osseous changes with soft tissue widening and thickening, possible erosive change anteriorly of the S1 segment again seen and concerning for possible discitis/osteomyelitis and may be resulting in the thrombosis of the left iliac and femoral system. Clinically correlate and requires further workup. Presacral stranding and edema, swelling not significantly changed axial 84 and sagittal 76. There is again note of a high-grade appearing narrowing of the proximal celiac trunk approximately 2 cm in length with contrast seen beyond. Requires follow-up vascular consult. [id number] fecal burden with possible degree of rectal fecal impaction as above. One or more dose reduction techniques were used (e.g., Automated exposure control, adjustment of the mA and/or kV according to patient size, use of iterative reconstruction technique). Reading Location: [facility] Chest CTA 12/13/24 04:43 IMPRESSION: Endotracheal tube in place above the leeanna. Respiratory motion artifact significantly limits the segmental and subsegmental evaluation. No convincing filling defect to suggest pulmonary embolism identified. No large central or hilar saddle embolism. There is now a pericardial effusion which measures around 1 cm in areas. Bilateral lower lobe airway opacification subsegmental basal as above which may represent secretions/mucus plugging with aspirate not excluded. Similar appearance of patchy airspace opacities left lung now with increased patchy opacity right base. Some areas of tree-in-bud nodularity may represent small airways disease, atypical pneumonia. Mild increased appearance of consolidative change at the left base. Increase in the size of the small left pleural effusion. Bilateral dependent areas of atelectasis and partial collapse of the lower lobes. One or more dose reduction techniques were used (e.g., Automated exposure control, adjustment of the mA and/or kV according to patient size, use of iterative reconstruction technique). Reading Location: [facility] EKG Initial EKG: Attestation: I personally reviewed and interpreted this EKG as follows: Comments: Sinus tachycardia ventricular rate is 138 bpm. Management Discussion w/another healthcare provider: Hospitalist, Plastic Cablemaking Machine Operator and Radiologist Critical Care Time Critical Care Time: Yes Critical care time (excluding procedures): 30-74 minutes (35 min), Including time spent:, Discussing w/Patient &/or Family/Geomatics Professor, Discussing w/Consultants, Arranging Admission or Transfer and Performing Direct Patient Care at Bedside Discharge Plan Dx/Rx/DC Orders Clinical Impression: Respiratory failure, Pulmonary edema, Aspiration into airway, UTI (urinary tract infection), Cerebral palsy, Eosinophilic esophagitis, Sepsis, Discitis Disposition Disposition: Acute Care [facility]
[2024-12-13] MEDS: Clindamycin 600 MG/50 ML BAG 100 MG IV (05:13)
[2024-12-13] MEDS: Acetaminophen 650 MG Suppository RC (05:24)
--- NOTE | 2024-12-13 06:06 | ED.RN ---
provided sister, eric with update on the need to transfer the patient to a tertiary care center.
--- NOTE | 2024-12-13 06:12 | ED.RN ---
per sister eric's request, updated niece, sae on pt's condition and need to be tranferred. they approve a transfer to [facility].
[2024-12-13] MEDS: levoFLOXacin IV 750 MG/150 ML BAG 100 MG IV (06:13)
[2024-12-13] MEDS: 0.9% Normal Saline (1000mL) 1,000 ML 999 ML IV ×2 (06:13→07:11)
[2024-12-13] MEDS: Vancomycin HCl 1,750 MG in 0.9% Normal Saline (500mL Bag) 500 ML 250 MG IV (06:44)
[2024-12-13 07:23] LABS: Troponin T High Sens 2 HR 54 ng/L (<=14)
[2024-12-13 09:38] LABS: Troponin T High Sens 4 HR 42 ng/L (<=14)
--- NOTE | 2024-12-13 16:15 | RAD_ITS ---
PROCEDURE: CHEST 1 VIEW (PORTABLE) 12/13/2024 at 0 6: 10 REASON FOR EXAM: CENTRAL LINE PLACEMENT TECHNIQUE: Frontal view of the chest. COMPARISON: 12/13/2024 at 03:42 FINDINGS: There is now a right IJ catheter with tip projecting over the upper right atrium. Endotracheal tube 4.5 cm above the leeanna. Patient is rotated to the left. No pneumothorax identified. Right costophrenic angle excluded from imaging. Lungs appear unchanged. RAD/Chest 1 View (Portable) IMPRESSION: There is now a right IJ catheter with tip projecting over the upper right atriu m. Endotracheal tube 4.5 cm above the leeanna. No pneumothorax identified.. Reading Location: [id number]
== END 2024-12-13 12:00 | disposition short-term general hospital (02) ==
PROVIDERS: Emergency Provider Emergency Medicine; PCP Family Medicine; Visit Provider Emergency Medicine
DX: J96.90 Respiratory failure, unspecified, unspecified whether with hypoxia or hypercapnia (principal); A41.9 Sepsis, unspecified organism; G80.9 Cerebral palsy, unspecified; I82.412 Acute embolism and thrombosis of left femoral vein; I82.422 Acute embolism and thrombosis of left iliac vein; N39.0 Urinary tract infection, site not specified; M46.40 Discitis, unspecified, site unspecified; I10 Essential (primary) hypertension; Z79.01 Long term (current) use of anticoagulants; K20.0 Eosinophilic esophagitis; J81.1 Chronic pulmonary edema
CPT/HCPCS: 31500; 31720; 36556; 36600; 51702; 71045; 71275; 74177; 80053; 81001; 82803; 83605; 83735; 83880; 84484; 85025; 85610; 85730; 87040; 87086; 93005; 94002; 96365; 96366; 96368; 99252; 99285; A4216; G0463; J1940

== ENCOUNTER → 2025-02-15 | Outpatient (REF) | payer MEDICARE, SELFPAY ==
[2025-02-15 08:52] LABS: Anion Gap 9 (5-15); BUN 14 mg/dL (4-19); BUN/Creat Ratio 29.7 RATIO (10-20); Calcium,Total 8.8 mg/dL (7.6-11.0); Carbon Dioxide 23.7 mmol/L (21.0-32.0); Chloride 105 mmol/L (98-108); Creatinine, Serum 0.48 mg/dL (0.70-1.20); EST Glomerular Filtration Rate 97 (>60); Glucose 93 mg/dL (70-99); Potassium 4.1 mmol/L (3.3-5.1); Sodium Level 138 mmol/L (133-145)
== END ==
LOC: OLS.ACH 05:00
PROVIDERS: PCP Family Medicine; Visit Provider Internal Medicine
DX: E87.1 Hypo-osmolality and hyponatremia (principal); I10 Essential (primary) hypertension
CPT/HCPCS: 36415; 80048

== ENCOUNTER → 2025-02-23 05:00 | Outpatient (REF) | payer MEDICARE, SELFPAY ==
[2025-02-23 09:04] LABS: Hematocrit 30.4 % (37-47); Hemoglobin 9.8 g/dL (12.0-15.0); Mean Corp Hgb Conc 32.2 g/dL (32-36); Mean Corpuscular Hgb 28.5 pg (27.0-32.0); Mean Corpuscular Volume 88.4 fL (81-99); Mean Platelet Vol. 11.3 fl (6.2-12.0); Platelet Count 283 K/mm3 (150-450); RBC Distribution Width CV 15.5 % (11.6-14.6); RBC Distribution Width SD 50.1 fl (35.1-43.9); Red Blood Count 3.44 M/mm3 (4.2-5.4); White Blood Count 12.9 K/mm3 (4.4-11.0)
[2025-02-23 09:23] LABS: Anion Gap 12 (5-15); BUN 13 mg/dL (4-19); BUN/Creat Ratio 26.2 RATIO (10-20); Calcium,Total 8.5 mg/dL (7.6-11.0); Carbon Dioxide 20.7 mmol/L (21.0-32.0); Chloride 103 mmol/L (98-108); Creatinine, Serum 0.49 mg/dL (0.70-1.20); EST Glomerular Filtration Rate 97 (>60); Glucose 115 mg/dL (70-99); Sodium Level 136 mmol/L (133-145)
== END ==
LOC: OLS.ACH 05:00
PROVIDERS: PCP Family Medicine; Visit Provider Internal Medicine
DX: J06.9 Acute upper respiratory infection, unspecified (principal)
CPT/HCPCS: 36415; 80048; 85027

== ENCOUNTER → 2025-02-24 | Outpatient (REF) | payer MEDICARE, SELFPAY ==
[2025-02-24 10:06] LABS: Absolute Lymphocyte Count 2.85 X10^3/uL (0.83-4.51); Absolute Neutrophil Count 7.3 X10^3/uL (2.0-7.7); Basophil# 0.04 X10^3/uL; Basophil% 0.3 % (0-1); Eosinophil# 0.09 X10^3/uL; Eosinophils% 0.8 % (0-5); Hematocrit 28.9 % (37-47); Hemoglobin 9.2 g/dL (12.0-15.0); Lymphocyte # 2.85 X10^3/ul (0.83-4.51); Lymphocyte % 24.1 % (19-41); Mean Corp Hgb Conc 31.8 g/dL (32-36); Mean Corpuscular Hgb 27.6 pg (27.0-32.0); Mean Corpuscular Volume 86.8 fL (81-99); Mean Platelet Vol. 10.6 fl (6.2-12.0); Monocyte# 1.45 X10^3/uL; Monocyte% 12.3 % (0-10); NRBC Flagged by Analyzer 0 % (0-5); Neutrophil # 7.29 X10^3/uL (2.7-7.7); Neutrophil % 61.6 % (47-70); Platelet Count 353 K/mm3 (150-450); RBC Distribution Width CV 15.4 % (11.6-14.6); RBC Distribution Width SD 49.3 fl (35.1-43.9); Red Blood Count 3.33 M/mm3 (4.2-5.4); White Blood Count 11.8 K/mm3 (4.4-11.0)
== END ==
LOC: OLS.ACH 05:00
PROVIDERS: PCP Family Medicine; Visit Provider Internal Medicine
DX: I10 Essential (primary) hypertension (principal); M46.26 Osteomyelitis of vertebra, lumbar region
CPT/HCPCS: 36415; 85025

== ENCOUNTER → 2025-04-05 05:00 | Outpatient (REF) | payer MEDICARE, SELFPAY ==
[2025-04-05 08:38] LABS: Anion Gap 9 (5-15); BUN 22 mg/dL (4-19); BUN/Creat Ratio 37.2 RATIO (10-20); Calcium,Total 8.7 mg/dL (7.6-11.0); Carbon Dioxide 23.0 mmol/L (21.0-32.0); Chloride 108 mmol/L (98-108); Glucose 93 mg/dL (70-99); Potassium 4.2 mmol/L (3.3-5.1)
== END ==
LOC: OLS.ACH 05:00
PROVIDERS: PCP Family Medicine; Visit Provider Internal Medicine
DX: G80.9 Cerebral palsy, unspecified (principal); K80.20 Calculus of gallbladder without cholecystitis without obstruction
CPT/HCPCS: 36415; 80048

== ENCOUNTER → 2025-08-27 05:10 | Outpatient (REF) | payer MEDICARE, SELFPAY ==
--- OUTSIDE RECORDS SUMMARY | 2025-08-27 07:47 | XMS RPT_ITS | CCD ---
Author Organization [facility] Care Team Providers Care Motorcycle Designer Name Role Phone Ekta Reagan Unavailable ElioJosé Antonioisidro Y Unavailable Unavailable Ekta Reagan Unavailable BOLOGNA KEM A Unavailable Unavailable Holli Fabricio A Unavailable Unavailable HolliIrineoFabricio A Unavailable Unavailable BOLOGNA KEM A Unavailable Unavailable IMCA Unavailable Unavailable Fabricio De La Garza A Unavailable Unavailable Dr. Toribio Morfin Primary Care Provider Dr. Toribio Morfin Referring Provider Roof CRITICAL CARE TECHNICIAN, CRITICAL CARE TECHNICIAN-C Jenaro Gotti Attending Provider Dr. Russel Hammer Attending Provider Care Physician, No Primary Primary Care Provider Unavailable Care Physician, No Primary Referring Provider Un available Roof CRITICAL CARE TECHNICIAN, CRITICAL CARE TECHNICIAN-C Jenaro Gotti Attending Provider Dr. Russel Hammer Referring Provider Unavailable Primary Care Provider Unavailabl e DARRIUS AGUILAR Referring Unavailable FRED MENA Referring Unavailable FRED MENA Referring Unavailable FRED MENA Referring Unavailable DARRIUS AGUILAR Attending Unavail able SELF Referring Unavailable DARRIUS AGUILAR Attending Unavail able DAVID FERNANDES-COM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, CHRISSIE M Admitting Unavaila DR FRANCHESKA Armando DO Attending Unavailable MITCH SEGOVIA FACP, MAGED Wilkes Consulting Unavail AUTUMN Ruelas MD Consulting Unavailable MITCH SEGOVIA FACP, MAGED Wilkes Admitting Unavail AUTUMN Ruelas MD Attending Unavailable Jenaro Ayers MD Primary Care Provider [phone] Care Physician, No Primary Primary Care Provider Unavailable Care Physician, No Primary Referring Provider Un available Roof CRITICAL CARE TECHNICIAN-C, Jenaro Gotti Attending Provider Roof CRITICAL CARE TECHNICIAN-C, Jenaro Gotti Referring Provider Dr. She Tejada DO Emergency Provider Darryl DENSON, Dr. Chaney Admit Provider Darryl DENSON, Dr. Chaney Other Provider Shon DENSON, Dr. Yepez Other Provider Rubens SEGOVIA, Dr. Singh Other Provider Amol SEGOVIA, Dr. Ro Other Provider Elham SEGOVIA, Dr. Bautista Gilman Attending Provider Los SEGOVIA, Dr. Sharma Other Provider Unavailable Shon DENSON, Dr. Yepez Attending Provider Jaquelin SEGOVIA, Dr. Goode Attending Provider Los SEGOVIA, Dr. Sharma Attending Provider Unavaila desiree Madison MD, Dr. Sharma Referring Provider Unavaila desiree Kwan DO, Dr. Gregg Attending Provider Esdras SEGOVIA, Dr. Telles Referring Provider Elham SEGOVIA, Dr. Bautista Gilman Other Provider Armen SEGOVIA, Dr. Jenaro Samuel Primary Care Provider Dr. Shiv Andrews DO Attending Provider Care Physician, No Primary Primary Care Provider Unavailable Care Physician, No Primary Referring Provider Un available Roof CRITICAL CARE TECHNICIAN-C, Jenaro Gotti Attending Provider Roof CRITICAL CARE TECHNICIAN-C, Jenaro H Referring Provider Dr. She Tejada DO Emergency Provider Dr. Shiv Andrews DO Admit Provider Darryl DENSON, Dr. Chaney Other Provider Shon DENSON, Dr. Yepez Other Provider Rubens SEGOVIA, Dr. Singh Other Provider Amol SEGOVIA, Dr. Ro Other Provider Elham SEGOVIA, Dr. Bautista Gilman Attending Provider Dr. Zachary Madison MD Other Provider Unavailable Shon DENSON, Dr. Yepez Attending Provider Jaquelin SEGOVIA, Dr. Goode Attending Provider Los SEGOVIA, Dr. Sharma Attending Provider Unavailesvin Madison MD, Dr. Sharma Referring Provider Unavaila desiree Kwan DO, Dr. Gregg Attending Provider Esdras SEGOVIA, Dr. Telles Referring Provider Elham SEGOVIA, Dr. Bautista Gilman Other Provider Armen SEGOVIA, Dr. Jenaro Samuel Primary Care Provider Soham SEGOVIA, Dr. Lyon Attending Provider Nadeem SEGOVIA, Dr. Valarie Manrique Other Provider [phone] Nadeem SEGOVIA, Dr. Valarie Manrique Attending Provider Royal SEGOVIA, Dr. Still Other Provider Vivian SEGOVIA, Dr. Vines Other Provider Gavin SEGOVIA, Dr. Aparicio Other Provider [phone] Joselito Lloyd DO Other Provider Norma SEGOVIA, Dr. Zachary Vicente Other Provider Valdo SEGOVIA, Dr. Cornelius Other Provider [phone] Freddy SEGOVIA, Dr. Avila Other Provider Kelsey SEGOVIA, Dr. Dubois Other Provider Freeman SEGOVIA, Dr. Ibarra Other Provider [phone] Gee SEGOVIA, Dr. Juarez Other Provider [phone] Albert SEGOVIA, Dr. Reyna Other Provider [phone] Meenakshi SEGOVIA, Dr. Fletcher Other Provider Dr. Marcelino Moore MD Other Provider [facility] Angel MD, Dr. Dennis Other Provider Vignesh SEGOVIA, Dr. Sandhu Other Provider Tanya SEGOVIA, Dr. Suarez Other Provider Jesi SEGOVIA, Dr. Buckley Other Provider [phone] Nadine DENSON, Dr. Bianchi Other Provider [phone] Chasidy SEGOVIA, Dr. Quan Other Provider Sofiya SEGOVIA, Dr. De Jesus Other Provider Terrence DENSON, Dr. Chan Other Provider Elfego SEGOVIA, Dr. Hillman Other Provider Jasmeet SEGOVIA, Dr. Hanson Other Provider Soham SEGOVIA, Dr. Lyon Other Provider Gianni DENSON, Dr. Aly Emergency Provider Jenaro Ayers MD Primary Care Provider JENARO AYERS Primary Care Unavailable CHERYL NEGRETE Attending Unavailable CODY TELLEZ Consulting Unavailable NONI LEVINE Admitting Unavailable JENARO AYERS Primary Care Unavailable NONE, PCP Referring Unavailable NOLAN SANTANA Attending Unavailable MARGOT CARVER Consulting Unavailable Care Physician, No Primary Primary Care Provider Unavailable Dr. Zachary Madison MD Attending Provider UnavailDr. Zachary Vasquez MD Referring Provider UnavailDr. Cristino Navarro DO Attending Provider Dr. Sonali Rousseau MD Referring Provider Dr. Jermain Archer DO Attending Provider Saturnino SEGOVIA, Phi Attending Provider Unavailable Saturnino SEGOVIA, Phi Referring Provider Unavailable Dr. She Tejada DO Emergency Provider Dr. Shiv Andrews DO Admit Provider Dr. Shiv Andrews DO Other Provider [phone] Dr. Cristino Kwan DO Attending Provider Dr. Jenaro Ayers MD Primary Care Provider Saturnino SEGOVIA, Phi Attending Provider Unavailable Saturnino SEGOVIA, Phi Referring Provider Unavailable Dr. Jenaro Ayers MD Referring Provider [phone] Sophie De La O Attending Provider [phone] Dr. Phi Matamoros Sr., DO Primary Care Provider Elfego Dewitt Referring Unavailable Russel Hammer Attending Unavailable Care Physician, No Primary Primary Care Unava ilable Ayers, Jenaro K Primary Care Unavailable Deperro OLS, Phi Attending Unavailable Ayers, Jenaro K Primary Care Unavailable Deperro OSCAR, Phi Attending Unavailable Ayers, Jenaro K Primary Care Unavailable Deperro OSCAR, Phi Attending Unavailable Jermain Archer Attending Unavailable Ayers, Jenaro K Primary Care Unavailable Ayers, Jenaro K Primary Care Unavailable Deperro OSCAR, Phi Attending Unavailable Deptomaszo OSCAR, Phi Referring Unavailable Ayers, Jenaro K Primary Care Unavailable Deperro OSCAR, Phi Attending Unavailable Ayers, Jenaro K Primary Care Unavailable Deperro OSCAR, Phi Attending Unavailable Shiv Andrews Admitting Unavailable Mostjones, Shiv Consulting Unavailable Bautista Lizarraga Attending Unavailable Care Physician, No Primary Primary Care Unava ilable Shon, Marleni Consulting Unavailable Rubens, Francisco Consulting Unavailable Amol, Araceli Consulting Unavailable Zachary Madison Consulting Unavailable Mostjones, Shiv Consulting Unavailable Darryl Shiv Admitting Unavailable Zachary Madison Attending Unavailable Care Physician, No Primary Primary Care Unava ilable Shon, Marleni Consulting Unavailable Rubens, Francisco Consulting Unavailable Amol, Araceli Consulting Unavailable Zachary Madison Consulting Unavailable Shiv Andrews Attending Unavailable Ayers, Jenaro K Primary Care Unavailable Mostjones, Shiv Admitting Unavailable Mosteller, Shiv Consulting Unavailable Sonali Rousseau Attending Unavailable Valarie Silver Consulting Unavailable Sonali Rousseau Consulting Unavailable Friend, Cristino Attending Unavailable Zachary Madison Referring Unavailable Friend, Cristino Attending Unavailable Sonali Rousseau Referring Unavailable Bautista Lizarraga Attending Unavailable Bautista Lizarraga Consulting Unavailable Ayers, Jenaro K Primary Care Unavailable Deptomaszo OSCAR, Phi Attending Unavailable Valarie Silver Attending Unavailable Ayers, Jenaro K Primary Care Unavailable Darryl Shiv Admitting Unavailable Sonali Rousseau Attending Unavailable Mosteller, Shiv Consulting Unavailable Valarie Silver Consulting Unavailable Jenaro Ayers Primary Care Unavailable Phi Harvey Attending Unavailable Cristino Kwan Attending Unavailable Zachary Madison Referring Unavailable Care Physician, No Primary Primary Care Unava ilable [place] Attending Unavailable Care Physician, No Primary Primary Care Unava ilable Care Physician, No Primary Referring Unava ilable Jenaro Cotto Attending Unavailable Care Physician, No Primary Primary Care Unava ilable Care Physician, No Primary Referring Unava ilable Russel Hammer Attending Unavailable Care Physician, No Primary Primary Care Unava ilable Shiv Andrews Attending Unavailable Marleni Menendez Attending Unavailable Jenaro Ayers Referring Unavailable Sophie Erickson Attending Unavailable Phi Matamoros Sr. Primary Care Unavailable Jenaro Cotto Attending Unavailable Care Physician, No Primary Primary Care Unava ilable Care Physician, No Primary Referring Unava ilable Cheko Paige Consulting Unavailable [place] Consulting Unavailable Markus Alonso Consulting Unavailable Joselito Lloyd Consulting Unavailable Zachary Green Consulting Unavailable Adryan Lyle Consulting Unavailable Austin Hayes Consulting Unavailable Sherly Cole Consulting UnavailFred Stevens Consulting Unavailable Larry Flynn Consulting Unavailable Axel Price Consulting Unavailable Justine Arrieta Consulting Unavailable Marcelino Moore Consulting Unavailable Jeannie Angel Consulting Unavailable Vignesh, Edson Consulting Unavailable Erick Martínez Consulting Unavailable JesiMarcio almaguer Consulting Unavailable Dhegoyo, Arias Consulting Unavailable Kadeem Umaña Consulting Unavailable Neal Arriaza Consulting Unavailable Dustin Ocampo Consulting Unavailable Rafy Telles Consulting Unavailable Valentin [place] Consulting Unavailable Jenaro Cotto H Referring Unavailable Jenaro Cotto Attending Unavailable Care Physician, No Primary Primary Care Unava ilable Jenaro Ayers Primary Care Unavailable Phi Harvey Attending Unavailable Allergies Allergy Classification Reported Allergen(s) Allergy Type Date of Onset Reaction(s) Facility (3 sources) amantadine; Translations: [SYMMETREL] food allergy 4 [employer] Work Phone: (5 sources) amoxicillin / clavulanate; Translations: [Amoxicillin / Clavulanate] drug allergy 4 [employer] Work Phone: [phone] (20 sources) erythromycin; Translations: [ERYTHROMYCIN] drug allergy 0 Palpitations [facility] Work Phone: [phone] (8 sources) amantadine; Translations: [AMANTADINE HCL] Drug Allergy 0 [facility] Repository (16 sources) AMOXICILLIN-POT CLAVULANATE; Translations: [AMOXICILLIN-POT CLAVULANATE] Propensity to adverse reactions (disorder) 0 Palpitations [facility] Repository (20 sources) Amantadine; Translations: [amantadine] Drug Allergy 0 Palpitations [facility] (19 sources) Amoxicillin; Translations: [amoxicillin] Drug Allergy 2 Unknown [facility] (10 sources) Clavulanate Drug Allergy 2 Unknown [facility] (17 sources) Erythromycin Drug Allergy 2 Unknown [facility] (8 sources) LORazepam; Translations: [lorazepam] Drug Allergy 5 Restlessness (finding) [facility] (8 sources) Lorazepam Propensity to adverse reactions 5 An[facility] (1 source) Amantadine Drug Allergy 5 [facility] (1 source) Amoxicillin Drug Allergy 5 [facility] (1 source) Clavulanate Drug Allergy 5 [facility] (1 source) LORazepam Drug Allergy 5 [facility] (1 source) erythromycin base Drug allergy (disorder) 5 [facility] Rep[facility] Medications Current Medications Medication Drug Class(es) Dates Sig (Normalized) Sig (Original) acetaminophen 325 mg oral tablet (7 sources) take 1 tablet by mouth every four hours as needed for pain acetaminophen (Tylenol) 325 MG tablet 325 mg by Per G Tube route every 4 hours as needed for mild pain (1-3). For 14 days end 12/26/2024 Active amLODIPine 5 mg oral tablet (20 sources) Dihydropyridine Calcium Channel Lázaro Start: 09-27-2023 End: 12-31-2024 take 1 tablet by mouth once daily Amlodipine 5 mg tablet Active 5 mg PO DAILY 90 3 [place] 6th, 2025 12:25pm Start: 07-25-2023 End: 09-27-2023 take 1 tablet by mouth once daily Amlodipine 10 mg tablet Discontinued 10 mg PO daily 90 July 25, 2023 3:19pm September 27, 2023 2:41pm Start: 10-11-2014 End: 07-25-2023 take 1 tablet by mouth once daily Amlodipine 5 mg tablet Discontinued 5 mg PO daily December 11, 2022 9:26am July 25, 2023 3:20pm Comment on above: Take 5 mg by mouth o nce daily. apixaban 5 mg oral tablet (19 sources) Factor Xa Inhibitor Start: 11-30-2024 End: 01-02-2025 take 1 tablet by mouth twice daily Apixaban (Eliquis) 5 mg tablet Active 5 mg PO TWICE A DAY December 04, 2024 1:00am apixaban (Eliqui s) 5 MG tablet 5 mg by Per G Tube route 2 times daily. Active Artificial Tears (1 source) Start: 11-30-2024 take 1 dose into the eye(s) three times daily Artificial Tears Dose = 2 drop(s), Eyes, both, TID, 0 Refill(s) Start Date: 11/30/24 Status: Ordered Repeat number: 1 Chlorhexidine (2 sources) Start: 01-06-2025 End: 01-06-2025 apply 1 dose topically once daily Topical, Daily, First dose on Sat01/06/25 at 1400 dextran 70 1 mg/ml / hypromellose 3 mg/ml ophthalmic solution (7 sources) Plasma Volume [employer] dextran 70-hypromellose (artificial tears) 0.1-0.3 % ophthalmic solution Administer 2 drops into both eyes 3 times daily. Active ferrous sulfate 325 mg oral tablet (10 sources) Start: 11-30-2024 take 1 tablet by mouth twice daily Ferrous Sulfate (Feosol) 325 mg (65 mg iron) tablet Active 325 mg PO TWICE A DAY December 04, 2024 1:00am flax seed oil 1000 mg oral capsule (1 source) Start: 11-11-2024 flax seed oil 1000 mg oral capsule Dose : 1,000 mg = 1 cap(s), Oral, Daily, 0 Refill(s) Start Date: 11/11/24 Status: Ordered Repeat number: 1 furosemide 20 mg oral tablet (15 sources) Loop Diuretic Start: 04-20-2025 Furosemide 20 mg tablet Active mg PO April 20, 2025 12:00am Start: 12-21-2024 End: 12-21-2024 Start: 12-18-2024 End: 12-18-2024 Start: 12-13-2024 End: 12-17-2024 garlic preparation 200 mg oral tablet (20 sources) Non-Standardized Food Allergenic Extract Start: 11-11-2024 take 1 capsule by mouth once daily garlic oral capsule 200 mg, Oral, Daily, 0 Refill(s) Start Date: 11/11/24 Status: Ordered Repeat number: 1 Start: 01-16-2018 End: 04-20-2025 take 1 tablet by mouth once daily Garlic 200 mg tablet Discontinued 200 mg PO DAILY January 16, 2018 12:00am April 20, 2025 8:28am Start: 01-16-2018 Start: 01-16-2018 take 1 tablet by libby th once daily Garlic 200 mg tablet Active 200 mg PO DAILY January 15, 2018 11:00pm Start: 01-16-2018 take 200 mg by mouth once dimitri y Garlic Active 200 MG PO daily January 15, 2018 11:00pm Start: 01-16-2018 take 200 mg by mouth once dimitri y Garlic Active 200 MG PO daily January 16, 2018 12:00am Start: 07-20-2014 take 1 tablet by libby th once daily GARLIC CAPS One tablet by mouth daily GARLIC CAPS Dario Caballero RN Start: 07-20-2014 take 1 tablet by libby th once daily GARLIC CAPS One tablet by mouth daily GARLIC CAPS Dario Caballero RN Start: 06-20-2010 GARLIC CAP von ly 0 06/20/2010 Active Comment on above: daily glucosamine sulfate 500 mg oral capsule (14 sources) Start: 11-11-2024 glucosamine 50 0 mg oral capsule Dose : 500 mg = 1 cap(s), Oral, qDay, 0 Refill(s) Start Date: 11/11/24 Status: Ordered Repeat number: 1 Start: 01-16-2018 End: 12-04-2024 take 1 tablet by mouth once daily Glucosamine Hcl 500 mg tablet Discontinued 500 mg PO daily January 16, 2018 12:00am December 04, 2024 2:18pm Start: 07-21-2014 take 1 tablet by libby th once daily GLUCOSAMINE HCL TABS One tablet by mouth daily GLUCOSAMINE HCL TABS Russel Hammer MD iv contrast (will be provided with radiology test) (1 source) Start: 11-12-2023 End: 11-13-2023 iv contrast (will be provided with radiology test) Indications: Microscopic hematuria CT Urogram WO/W Inject, intravenously, once for 1 dose.No IV access, insert saline lock prior to the beginning of sedation, infusion, injection of imaging exam. Discontinue saline lock post exam. If Pt. has a central line or IVAD, may access for administration according to line specific nursing protocol. Once exam is complete flush line and de-access according to line specific nursing protocol in the CT contrast administration guidelines link. 1 Each 0 11/12/2023 11/13/2023 Active Comment on above: CT Urogram WO/W Inje ct, intravenously, once for 1 dose.No IV access, insert saline lock prior to the beginning of sedation, infusion, injection of imaging exam. Discontinue saline lock post exam. If Pt. has a central line or IVAD, may access for administration according to line specific nursing protocol. Once exam is complete flush line and de-access according to line specific nursing protocol in the CT contrast administration guidelines link. Lactose-Reduced Food With Fibr (Jevity 1.5 Davide) 0.06 gram-1.5 kcal/mL liquid (1 source) Start: 12-11-2024 Lactose-Reduced Food With Fibr (Jevity 1.5 Davide) 0.06 gram-1.5 kcal/mL liquid Active 0 .ROUTE .COMPLEX 5688 0 December 11, 2024 12:00am Recommend Jevity 1.5 at 45mL/hr x24 hours with 160mL water flush q4 hours to provide 1620kcal, 68.9 grams protein, and 1780mL water daily. Initiate at 10mL and advance by 15mL every 8-12 hours as tolerated to goal rate. mirtazapine 15 mg oral tablet (1 source) Start: 04-20-2025 take 1 tablet by mouth at bedtime Mirtazapine 15 mg tablet Active 15 mg PO AT BEDTIME April 20, 2025 12:00am nystatin [id number] unt/ml oral suspension (1 source) Polyene Antifungal Start: 11-11-2024 take 1 dose by mouth four times daily nystatin 100,000 units/mL oral suspension Dose : 500,000 unit(s) = 5 mL, Oral, QID, 0 Refill(s) Start Date: 11/11/24 Status: Ordered Repeat number: 1 pregabalin 50 mg oral capsule (16 sources) Start: 04-20-2025 take 1 capsule by mouth three times daily Pregabalin 50 mg capsule Active 50 mg PO THREE TIMES A DAY April 20, 2025 12:00am Start: 11-21-2024 End: 12-11-2024 take 1 capsule by mouth three times daily Pregabalin (Lyrica) 50 mg capsule Discontinued 50 mg PO THREE TIMES A DAY December 04, 2024 1:00am December 11, 2024 4:41pm sennosides, assisted 8.6 mg oral tablet (2 sources) Start: 11-11-2024 senna (sennosi nelson) 8.6 mg oral tablet Dose : 8.6 mg = 1 tab(s), Oral, BID, 0 Refill(s) Start Date: 11/11/24 Status: Ordered Repeat number: 1 tamsulosin hydrochloride 0.4 mg oral capsule (16 sources) alpha-Adrenergic Lázaro Start: 04-20-2025 Tamsulosin 0.4 mg capsule Active mg PO April 20, 2025 12:00am Start: 11-11-2024 End: 12-11-2024 take 1 capsule by mouth once daily Tamsulosin 0.4 mg Capsule Discontinued 0.4 mg PO DAILY@1730 0 0 November 11, 2024 1:00am December 11, 2024 4:42pm Vitamin D3 (2 sources) Start: 11-11-2024 Vitamin D3 Dos e : 25 mcg = 1 tab(s), Oral, Daily, 0 Refill(s) Start Date: 11/11/24 Status: Ordered Repeat number: 1 Completed/Discontinued Medications Medication Drug Class(es) Dates Sig (Normalized) Sig (Original) 20 ml albumin human, assisted 250 mg/ml injection (4 sources) Human Serum Albumin Start: 12-18-2024 End: 12-18-2024 Start: 12-17-2024 End: 12-17-2024 apple cider vinegar 600 mg oral capsule (18 sources) Start: 01-16-2018 End: 12-04-2024 take 1 capsule by mouth once daily Apple Cider Vinegar 600 mg capsule Discontinued 600 mg PO daily 0 January 16, 2018 12:00am December 04, 2024 2:18pm Start: 07-20-2014 take 1 capsule by mo uth once daily APPLE CIDER VINEGAR CAPS One tablet by mouth daily APPLE CIDER VINEGAR CAPS [id number] Dario Caballero RN Start: 07-20-2014 take 1 capsule by mo uth once daily APPLE CIDER VINEGAR CAPS One tablet by mouth daily APPLE CIDER VINEGAR CAPS [id number] Dario Caballero RN APPLE CIDER VINE GAR ORAL Take by mouth. 0 Active Comment on above: Take by mouth. aspirin 325 mg oral tablet (20 sources) Nonsteroidal Anti-inflammatory Drug Start: 01-13-2018 End: 10-30-2024 take 1 tablet by mouth once as needed Aspirin 325 mg tablet Discontinued 325 mg PO ONCE as needed September 25, 2024 12:26pm October 30, 2024 4:51pm Start: 07-20-2014 take 1 tablet by libby once daily ASPIRIN 325 MG TABS One tablet by mouth daily ASPIRIN [id number] Dario Caballero RN Start: 06-30-2014 aspirin, enter ic coated (ASPIRIN, ENTERIC COATED) 325 mg EC tablet Take 325 mg by mouth as needed. Take with food. 0 06/30/2014 Active Comment on above: Take 1 tablet by libby th twice daily as needed. Take with food. Take 325 mg by mouth as needed. Take with food. astaxanthin 4 mg oral capsule (18 sources) Start: 2 End: 4 take 1 capsule by mouth once daily Astaxanthin 4 mg capsule Discontinued 4 mg PO .Daily 0 January 16, 2018 12:00am September 25, 2024 12:26pm Comment on above: Take by mouth. bisacodyl 10 mg rectal suppository (4 sources) Stimulant Laxative Start: 5 End: 5 Blood Pressure Cuff - Home Use (5 sources) Start: 4 Blood Pressure Cuff - Home Use Indications: Elevated blood pressure BLOOD PRESSURE CUFF FOR HOME USE. DX: LABILE BLOOD PRESSURE 1 Device 0 06/30/2014 Active Comment on above: BLOOD PRESSURE CUFF FOR HOME USE. DX: LABILE BLOOD PRESSURE calcium chloride 0.0014 meq/ml / potassium chloride 0.004 meq/ml / sodium chloride 0.103 meq/ml / sodium lactate 0.028 meq/ml injectable solution (10 sources) Start: End: Start: 12-23-2024 End: 12-23-2024 Start: 12-18-2024 End: 12-19-2024 100 ml calcium gluconate 20 mg/ml injection (14 sources) Start: 12-27-2024 End: 12-28-2024 Start: 12-24-2024 End: 12-24-2024 Start: 12-22-2024 End: 12-22-2024 Start: 12-20-2024 End: 12-20-2024 Start: 12-18-2024 End: 12-18-2024 Start: 12-14-2024 End: 12-14-2024 cefdinir 300 mg oral capsule (6 sources) Cephalosporin Antibacterial Start: 11-11-2024 End: 12-04-2024 take 1 capsule by mouth every twelve hours Cefdinir 300 mg Capsule Discontinued 300 mg PO EVERY 12 HOURS 0 4 0 November 11, 2024 1:00am December 04, 2024 2:18pm cefTRIAXone (Rocephin) 1,000 mg in sodium chloride 0.9 % 50 mL IVPB Mini-Bag Plus (2 sources) Start: 01-05-2025 End: 01-05-2025 1,000 mg, IntraVENous, at 100 mL/hr, Administer over 30 Minutes, Once, On Sat01/05/25 at 1325, For 1 dose, Mini-Bag Plus bag, Suspected Indication (Select all that apply): Bone and Joint Infection cetirizine hydrochloride 10 mg oral tablet (2 sources) Histamine-1 Receptor Antagonist Start: 12-22-2024 End: 12-22-2024 cholecalciferol 0.025 mg oral tablet (20 sources) Vitamin D Start: 01-13-2018 End: 04-20-2025 take 1 tablet by mouth once daily Cholecalciferol (Vitamin D3) 25 mcg (1,000 unit) tablet Discontinued 1000 U PO DAILY July 25, 2023 2:50pm April 20, 2025 8:28am Start: 01-13-2018 End: 07-25-2023 Start: 10-25-2014 cholecalcifero l, vitamin D3, 400 unit ORAL Cap Take 1,000 Units by mouth twice daily. 0 10/25/2014 Active Start: 07-20-2014 take 1 tablet by libby once daily VITAMIN D 400 UNIT TABS One tablet by mouth daily CHOLECALCIFEROL [id number] Dario Caballero RN cholecalciferol (Vitamin D3) 25 MCG (1000 UT) tablet 1,000 Units by Per G Tube route daily. Active Comment on above: Take 1,000 Units by mouth twice daily. ciprofloxacin 500 mg oral tablet (2 sources) Quinolone Antimicrobial Start: 11-30-2024 End: 12-04-2024 Cipro 500 mg oral tablet Dose : 500 mg = 1 tab(s), Oral, q12h, Last dose 12/04/24 at 2100, 0 Refill(s), 61.3 Start Date: 11/30/24 Stop Date: 12/04/24 Status: Ordered Repeat number: 1 Start: 12-05-2023 End: 12-05-2023 ciprofloxacin HCl 500 mg tab (s) (CIPRO) 100 ml dexmedetomidine 0.004 mg/ml injection (4 sources) Central alpha-2 Adrenergic Agonist Start: 12-22-2024 End: 12-24-2024 docusate sodium 50 mg / sennosides, assisted 8.6 mg oral tablet (20 sources) Start: 12-14-2024 End: 12-31-2024 Start: 11-11-2024 End: 12-04-2024 Sennosides-Docusate Sodium ( Stimulant Laxative Plus) 8.6-50 mg Tablet Active 1 NMA PO TWICE A DAY December 04, 2024 1:00am Start: 11-11-2024 End: 12-04-2024 senna-docusate s odium (Senokot-S) 8.6-50 MG tablet 1 tablet by Per G Tube route 2 times daily. Active doxycycline (Vibramycin) 100 mg in sodium chloride 0.9 % 100 mL IVPB (2 sources) Start: 01-05-2025 End: 01-05-2025 100 mg, IntraVENous, at 100 mL/hr, Administer over 60 Minutes, Once, On Sat01/05/25 at 1730, For 1 dose, Mini-Bag Plus bag, Suspected Indication (Select all that apply): Bone and Joint Infection Drug or medicament (substanc e) (4 sources) Start: 12-28-2024 End: 12-31-2024 Start: 12-17-2024 End: 12-28-2024 GLUC BALTAZAR/CHONDRO BALTAZAR A/VIT C/MN (GLUCOSAMINE CHONDROITIN MAXSTR ORAL) (5 sources) take 1 tablet by mouth once daily GLUC BALTAZAR/CHONDRO BALTAZAR A/VIT C/MN (GLUCOSAMINE CHONDROITIN MAXSTR ORAL) Take 1 tablet by mouth once daily. 0 Active Comment on above: Take 1 tablet by libby once daily. guaiFENesin 20 mg/ml oral solution (4 sources) Start: 12-30-2024 End: 12-31-2024 Start: 12-18-2024 End: 12-30-2024 250 ml heparin sodium, porcine 100 unt/ml injection (6 sources) Unfractionated Heparin, Anti-coagulant Start: 12-13-2024 End: 12-18-2024 Start: 12-13-2024 End: 12-18-2024 hydroCHLOROthiazide 25 mg oral tablet (8 sources) Thiazide Diuretic Start: 09-27-2023 End: 09-25-2024 take 1 tablet by mouth once daily Hydrochlorothiazide 25 mg tablet Discontinued 25 mg PO DAILY 90 September 27, 2023 1:00am September 25, 2024 12:27pm On Hold: 11/29/2023 1 ml HYDROmorphone hydrochloride 1 mg/ml cartridge (2 sources) Opioid Agonist Start: 12-22-2024 End: 12-22-2024 iopamidol (Isovue-370) 76 % injection 75 mL (2 sources) Start: 01-06-2025 End: 01-06-2025 take 75 mL intravenously once as needed 75 mL, IntraVENous, IMG once PRN, contrast, Starting on Sat01/06/25 at 0020, For 1 dose 10 ml lidocaine hydrochloride 20 mg/ml injection (4 sources) Antiarrhythmi c, Amide Local Anesthetic Start: 01-05-2025 End: 01-05-2025 Infiltration, As needed, Starting on Sat01/05/25 at 1625, Intraprocedure Start: 12-16-2024 End: 12-16-2024 linseed oil 1000 mg oral capsule (18 sources) Start: 06-20-2010 End: 12-04-2024 take 1 capsule by mouth once daily Flaxseed Oil 1,000 mg capsule Discontinued 1000 mg PO daily January 16, 2018 12:00am December 04, 2024 2:18pm Comment on above: daily po lisinopril 20 mg oral tablet (20 sources) Angiotensin Converting Enzyme Inhibitor Start: 08-31-2014 End: 04-20-2025 take 1 tablet by mouth once daily Lisinopril 20 mg tablet Discontinued 20 mg PO daily March 02, 2024 9:51am December 04, 2024 2:18pm Start: 08-31-2014 take 1 tablet by libby once daily LISINOPRIL 10 MG TABS One tablet by mouth daily LISINOPRIL [id number] Russel Hammer MD take 2 tablets by mo [facility] once daily lisinopril (ZESTRIL, PRINIVIL) 10 mg tablet Take 20 mg by mouth once daily. 0 Active Comment on above: Take 20 mg by mouth once daily. 50 ml magnesium sulfate 40 m g/ml injection (4 sources) Start: 12-20-2024 End: 12-20-2024 Start: 12-13-2024 End: 12-13-2024 melatonin 1 mg/ml oral solution (2 sources) Start: 12-24-2024 End: 12-31-2024 metoprolol tartrate 50 mg oral tablet (20 sources) beta-Adrenergic Lázaro Start: 01-05-2025 End: 01-06-2025 take 25 mg by mouth once 25 mg, Oral, Once, On Sat01/05/25 at 2350, For 1 dose Start: 12-30-2024 End: 12-31-2024 Start: 12-25-2024 End: 12-30-2024 Start: 12-24-2024 End: 12-31-2024 Start: 11-30-2024 End: 11-30-2024 take 1 tablet by mouth in the morning Lopressor Start: 11/30/24 8:00:00 AM EST, Dose = 50 mg, = 1 tab(s), Oral, 0, 11/26/24 7:52:00 EST Start Date: 11/30/24 Stop Date: 11/30/24 Status: Completed Repeat number: 1 Start: 11-20-2024 End: 11-21-2024 metoprolol succinate 50 mg o ral TABLET extended release Start: 11/21/24 8:00:00 AM EST, Dose = 50 mg, = 1 tab(s), Oral, Hold if SBP (mmHg) Start Date: 11/21/24 Stop Date: 11/21/24 Status: Completed Repeat number: 1 Start: 11-18-2024 End: 11-18-2024 metoprolol succinate 50 mg o ral TABLET extended release Start: 11/18/24 8:00:00 AM EST, Dose = 50 mg, = 1 tab(s), Oral, Hold if SBP (mmHg) Start Date: 11/18/24 Stop Date: 11/18/24 Status: Completed Repeat number: 1 Start: 07-21-2014 End: 01-22-2024 take 1 tablet by mouth once daily Metoprolol Succinate 50 mg tablet extended release 24 hr Discontinued 50 mg PO daily 30 January 16, 2023 2:22pm January 22, 2024 11:53am Start: 07-21-2014 take 1 tablet by libby th once daily TOPROL XL 50 MG [id number] (ER) One tablet by mouth daily METOPROLOL SUCCINATE [id number] Russel Hammer MD take 50 mg by mouth once daily M ETOPROLOL SUCCINATE ORAL Take 50 mg by mouth once daily. 0 Active Comment on above: Take 50 mg by mouth once daily. 100 ml metroNIDAZOLE 5 mg/ml injection (2 sources) Nitroimidazole Antimicrobial Start: 025 End: 025 take 500 mg intravenously every eight hours multivitamin tablet (5 sources) Start: 014 take 1 tablet by mouth once daily multivitamin tablet Take 1 tablet by mouth once daily. 0 06/30/2014 Active Comment on above: Take 1 tablet by libby th once daily. mupirocin 0.02 mg/mg topical ointment (4 sources) RNA Synthetase Inhibitor Antibacterial Start: End: oseltamivir 75 mg oral capsule (4 sources) Neuraminidase Inhibitor Start: End: Start: 12-14-2024 End: 12-16-2024 piperacillin 4000 mg / tazobactam 500 mg injection (2 sources) Penicillin-class Antibacterial, beta Lactamase Inhibitor Start: 12-13-2024 End: 12-13-2024 take 4500 mg intravenously every six hours polyethylene glycol 3350 66829 mg powder for oral solution (11 sources) Osmotic Laxative Start: 12-14-2024 End: 12-31-2024 Start: 11-11-2024 take 17 doses by libby th once daily polyethylene glycol 3350 Dose : 17 gram(s) =, Oral, qDay, 0 Refill(s) Start Date: 11/11/24 Status: Ordered Repeat number: 1 polyethylene gly col, PEG, 3350 (Miralax) 17 g packet Indications: Constipation 17 g daily. Via PEG TUBE Active potassium chloride 20 meq po wder for oral solution (11 sources) Start: 12-18-2024 End: 12-18-2024 Start: 12-16-2024 End: 12-17-2024 Start: 12-14-2024 End: 12-15-2024 Start: 11-11-2024 Potassium Chlo ride (Eqv-K-Tab) 20 mEq oral tablet, extended release Dose : 20 mEq = 1 tab(s), Oral, qDay, 0 Refill(s) Start Date: 11/11/24 Status: Ordered Repeat number: 1 100 ml propofol 10 mg/ml inj ection (4 sources) General Anesthetic Start: 12-13-2024 End: 12-23-2024 Start: 12-13-2024 End: 12-13-2024 QUEtiapine 25 mg oral tablet (4 sources) Atypical Antipsychotic Start: 12-23-2024 End: 12-31-2024 red yeast rice 600 mg oral capsule (10 sources) Start: 01-16-2018 End: 12-04-2024 take 1 capsule by mouth once daily Red Yeast Rice 600 mg capsule Discontinued 600 mg PO daily January 16, 2018 12:00am December 04, 2024 2:18pm risperiDONE 0.5 mg oral tablet (20 sources) Atypical Antipsychotic Start: 12-11-2024 End: 04-20-2025 take 0.25 mg by mouth at bedtime Risperidone 0.5 mg Tablet Discontinued 0.25 mg PO AT BEDTIME 0 0 December 11, 2024 4:42pm April 20, 2025 8:28am Start: 11-11-2024 End: 12-11-2024 take 1 tablet by mouth at bedtime Risperidone 0.5 mg Tablet Discontinued 0.5 mg PO AT BEDTIME 0 0 November 11, 2024 1:00am December 11, 2024 4:43pm Start: 11-11-2024 End: 12-11-2024 risperiDONE (Ris perDAL) 0.5 MG tablet Indications: CEREBRAL PALSY 0.5 mg by Per G Tube route Nightly. AT BEDTIME Active 5 ml sodium chloride 9 mg/ml injection (20 sources) Start: 01-05-2025 End: 01-06-2025 take 10 mL intraluminal route every twelve hours 10 mL, IntraCATHeter, Every 12 hours, First dose on Sat01/05/25 at 1640, Administer to each lumen. Line Care. Use 10 mL or larger syringe. Start: 01-05-2025 End: 01-06-2025 10 mL, IntraCATHeter, PRN, l ine care, before blood draws, before and after infusion or medication administration, Starting on Sat01/05/25 at 1637, Use 10 mL or larger syringe. Start: 01-05-2025 End: 01-05-2025 1,000 mL, IntraVENous, at 1, 000 mL/hr, Administer over 1 Hours, Once, On Sat01/05/25 at 2215, For 1 dose Start: 12-26-2024 End: 12-31-2024 Start: 12-18-2024 End: 12-24-2024 Start: 12-13-2024 End: 12-31-2024 take 10 mL intraluminal route every twelve hours Start: 12-13-2024 End: 12-31-2024 Start: 12-13-2024 End: 12-31-2024 Start: 11-12-2023 End: 11-12-2023 0.9 % sodium chloride (NACL 0.9%) infusion Indications: Microscopic hematuria Administer at rate defined per CT contrast administration specifications. To be provided with radiology test. 150 mL 0 11/12/2023 11/12/2023 Active Comment on above: Administer at rate d efined per CT contrast administration specifications. To be provided with radiology test. 200 ml vancomycin 5 mg/ml injection (2 sources) Glycopeptide Antibacterial Start: End: take 1000 mg intravenously every twelve hours B COMPLEX VITAMINS (8 sources) Start: take 1 tablet by mouth once daily VITAMIN B COMPLEX TABS One tablet by mouth daily B COMPLEX VITAMINS [id number] Russel Hammer MD Start: 03-13-2016 take 1 tablet by libby th once daily VITAMIN B COMPLEX TABS One tablet by mouth daily B COMPLEX VITAMINS [id number] Russel Hammer MD take 1 tablet by libby th once daily vitamin b complex tab Take 1 tablet by mouth once daily. 0 Active Comment on above: Take 1 tablet by libby th once daily. vitamin d 1000 unt oral tablet (2 sources) Start: 07-20-2014 take 1 tablet by mouth once daily VITAMIN D 1000 UNIT TABS One tablet by mouth daily CHOLECALCIFEROL [id number] Russel Hammer MD Start: 07-20-2014 take 1 tablet by libby th once daily VITAMIN D 1000 UNIT TABS One tablet by mouth daily CHOLECALCIFEROL [id number] Russel Hammer MD (20 sources) Start: 12-30-2024 End: 12-31-2024 Start: 12-27-2024 End: 12-29-2024 take 750 mg intravenously every twelve hours Start: 12-26-2024 End: 12-30-2024 take 2000 mg intravenously every eight hours Start: 12-23-2024 End: 12-23-2024 Start: 12-21-2024 End: 12-26-2024 Start: 12-21-2024 End: 12-21-2024 Start: 12-21-2024 End: 12-21-2024 Start: 12-19-2024 End: 12-19-2024 Start: 12-18-2024 End: 12-18-2024 Start: 12-16-2024 End: 12-21-2024 take 2000 mg intravenously every eight hours Start: 12-16-2024 End: 12-16-2024 Start: 12-15-2024 End: 12-15-2024 Start: 12-14-2024 End: 12-14-2024 Start: 12-13-2024 End: 12-31-2024 [Order 1 Start] Name: pantop razole (ProtoNix) EC tablet 40 mg Signed Summary: 40 mg, Oral, Nightly, First dose on 12/13/24 at 2100, Do not crush, chew, or split. [Order 1 End] [Order 2 Start] Name: pantoprazole (ProtoNix) 40 mg in sodium chloride (PF) 0.9 % 10 mL injection Signed Summary: 40 mg, IntraVENous, Administer over 2 Minutes, Nightly, First dose on 12/13/24 at 2100, Give only if unable to tolerate po. [Order 2 End] Start: 12-13-2024 End: 12-16-2024 take 2000 mg intravenously every eight hours Start: 12-13-2024 End: 12-13-2024 Start: 12-13-2024 End: 12-31-2024 take 4 mg by mouth every eight hours as needed for nausea and vomiting [Order 1 Start] Name: ondansetron ODT (Zofran-ODT) disintegrating tablet 4 mg Signed Summary: 4 mg, Oral, Every 8 hours PRN, nausea, vomiting, Starting on 12/13/24 at 1249, 1st Line. If inadequate response within 60 minutes, proceed to next-line agent or contact provider if no further options ordered. Patient should allow tablet to dissolve on tongue. Do not remove from blister pack until just before administering. [Order 1 End] [Order 2 Start] Name: ondansetron (Zofran) injection 4 mg Signed Summary: 4 mg, IntraVENous, Every 6 hours PRN, nausea, vomiting, Starting on 12/13/24 at 1249, 1st Line. Give IV if patient is unable to take orally. If inadequate response within 60 minutes, proceed to next-line agent or contact provider if no further options ordered. [Order 2 End] Start: 12-11-2024 Start: 12-04-2024 Start: 01-22-2024 (4 sources) Start: 12-31-2024 End: 12-31-2024 Start: 12-14-2024 End: 12-30-2024 (8 sources) Start: 12-26-2024 End: 12-27-2024 Start: 12-19-2024 End: 12-21-2024 Start: 12-15-2024 End: 12-18-2024 Start: 12-13-2024 End: 12-13-2024 (4 sources) Start: 12-18-2024 End: 12-20-2024 Start: 12-14-2024 End: 12-18-2024 (4 sources) Start: 12-17-2024 End: 12-17-2024 Start: 12-15-2024 End: 12-15-2024 (4 sources) Start: 12-13-2024 End: 12-13-2024 Start: 12-13-2024 End: 12-13-2024 (2 sources) Start: 12-13-2024 End: 12-13-2024 (2 sources) Start: 12-13-2024 End: 12-21-2024 Problems Active Problems Problem Classification Problem Date Documented Da te Episodic/Chronic Biliary tract disease (1 source) Calculus of gallbladder without cholecystitis without obstruction; Translations: [Calculus of gallbladder without cholecystitis without obstruction] Onset: 04-23-2025 Episodic Cancer of bladder (6 sources) Malignant neoplasm of bladder, unspecified; Translations: [Malignant tumor of urinary bladder] Onset: 11-25-2009 09-25-2021 Chronic Complication of device; implant or graft (2 sources) Infection and inflammatory reaction due to indwelling urethral catheter, initial encounter; Translations: [Infection and inflammatory reaction due to indwelling urethral catheter, initial encounter ([facility])] Onset: 01-05-2025 Episodic Deficiency and other anemia (1 source) Anemia; Translations: [Anemia, unspecified] Onset: 11-21-2024 Episodic Diseases of white blood cells (11 sources) Leukocytosis; Translations: [Elevated white blood cell count, unspecified] Onset: 11-11-2024 10-30-2024 Chronic Disorders of lipid metabolism (6 sources) Hyperlipidemia; Translations: [Hyperlipidemia, unspecified] Onset: 07-20-2014 Resolved: 07-21-2014 07-21-2014 Chronic Esophageal disorders (5 sources) Eosinophilic esophagitis; Translations: [Eosinophilic esophagitis] 12-11-2024 Chronic Essential hypertension (20 sources) Hypertensive disorder; Translations: [Essential hypertension] Onset: 08-31-2014 08-31-2014 Chronic Fluid and electrolyte disorders (15 sources) Hypo-osmolality and or hyponatremia; Translations: [Hypo-osmolality and hyponatremia] Onset: 11-11-2024 Episodic Infective arthritis and osteomyelitis (except that caused by tuberculosis or sexually transmitted disease) (5 sources) Osteomyelitis of vertebra; Translations: [Osteomyelitis of vertebra, site unspecified] Onset: 12-13-2024 12-30-2024 Chronic Malaise and fatigue (12 sources) Fatigue; Translations: [Other fatigue] Onset: 11-12-2024 10-08-2019 Episodic Mood disorders (1 source) Depressive disorder; Translations: [Depression, unspecified] Onset: 11-11-2024 Chronic Nausea and vomiting (5 sources) Vomiting; Translations: [Vomiting, unspecified] 12-04-2024 Episodic Osteoporosis (13 sources) Osteoporosis; Translations: [Age-related osteoporosis without current pathological fracture] Onset: 08-17-2014 08-17-2014 Chronic Other aftercare (2 sources) Patient encounter status; Translations: [Encounter for therapeutic drug level monitoring] 09-27-2023 Episodic Other aftercare (6 sources) Long-term current use of diuretic; Translations: [Encounter for therapeutic drug level monitoring] 09-27-2023 Episodic Other circulatory disease (2 sources) Past history of procedure; Translations: [Presence of other vascular implants and grafts] 01-05-2025 Chronic Other circulatory disease (2 sources) Presence of other vascular implants and grafts; Translations: [Presence of other vascular implants and grafts] Onset: 01-05-2025 Chronic Other circulatory disease (13 sources) Elevated blood-pressure reading without diagnosis of hypertension; Translations: [Elevated blood-pressure reading, without diagnosis of hypertension] Onset: 07-20-2014 07-20-2014 Episodic Other gastrointestinal disorders (1 source) Dysphagia; Translations: [Dysphagia, unspecified] Onset: 11-12-2024 Episodic Other injuries and conditions due to external causes (4 sources) Aspiration into respiratory tract; Translations: [Unspecified foreign body in respiratory tract, part unspecified causing other injury, initial encounter] 12-13-2024 Episodic Other lower respiratory disease (4 sources) Pulmonary edema; Translations: [Chronic pulmonary edema] 12-13-2024 Chronic Other nervous system disorders (10 sources) Difficulty walking; Translations: [Difficulty in walking, not elsewhere classified] 10-30-2024 Chronic Other nervous system disorders (1 source) Difficulty in walking, not elsewhere classified; Translations: [Difficulty in walking, not elsewhere classified] Onset: 11-11-2024 Chronic Other nutritional; endocrine; and metabolic disorders (1 source) Adult failure to thrive syndrome 11-26-2024 Episodic Paralysis (20 sources) Cerebral palsy; Translations: [Cerebral palsy, unspecified] Onset: 06-30-2014 06-30-2014 Chronic Rubia-; endo-; and myocarditis; cardiomyopathy (except that caused by tuberculosis or sexually transmitted disease) (5 sources) Heart valve disorder; Translations: [Endocarditis, valve unspecified] Onset: 07-28-2014 09-25-2021 Chronic Phlebitis; thrombophlebitis and thromboembolism (2 sources) Acute deep venous thrombosis of bilateral legs; Translations: [Acute embolism and thrombosis of unspecified deep veins of lower extremity, bilateral] Onset: 11-27-2024 Episodic Pulmonary heart disease (2 sources) Other pulmonary embolism without acute cor pulmonale; Translations: [Pulmonary embolism] Onset: 11-27-2024 Episodic Respiratory failure; insufficiency; arrest (adult) (20 sources) Acute hypoxemic respiratory failure; Translations: [Acute respiratory failure with hypoxia] Onset: 12-13-2024 12-13-2024 Episodic Septicemia (except in labor) (4 sources) Septic shock; Translations: [Sepsis, unspecified organism] 12-13-2024 Episodic Spondylosis; intervertebral disc disorders; other back problems (4 sources) Discitis; Translations: [Discitis, unspecified, site unspecified] 12-13-2024 Chronic Spondylosis; intervertebral disc disorders; other back problems (12 sources) Low back pain; Translations: [Low back pain, unspecified] Onset: 11-12-2024 Episodic Unclassified (1 source) Unknown / UNK(Unknown) Onset: 05-14-2018 Unclassified (1 source) Low back pain, unspecified; Translations: [Low back pain, unspecified] Onset: 11-18-2024 Unclassified (1 source) Other low back pain; Translations: [Other low back pain] Onset: 11-11-2024 Urinary tract infections (10 sources) Urinary tract infectious disease; Translations: [Urinary tract infection, site not specified] Onset: 11-30-2024 Episodic Past or Other Problems Problem Classification Problem Date Documented Date Episodic/Chronic Bacterial infection; unspecified site (13 sources) Bacteremia; Translations: [Bacteremia] Onset: 11-11-2024 Episodic Blindness and vision defects (5 sources) Amblyopia; Translations: [Unspecified amblyopia, unspecified eye] Onset: 06-30-2014 09-25-2021 Episodic Cancer of bladder (17 sources) H/O: malignant neoplasm; Translations: [Personal history of malignant neoplasm of bladder] Onset: 03-17-2010 09-01-2014 Episodic Cardiac dysrhythmias (20 sources) Palpitations; Translations: [Palpitations] Onset: 07-20-2014 07-20-2014 Episodic Genitourinary symptoms and ill-defined conditions (19 sources) Microscopic hematuria; Translations: [Other microscopic hematuria] Onset: 11-27-2023 11-12-2023 Episodic Influenza (12 sources) Influenza due to Influenza A virus; Translations: [Influenza due to other identified influenza virus with other respiratory manifestations] Onset: 12-18-2024 12-04-2024 Episodic Other lower respiratory disease (1 source) Shortness of breath; Translations: [Shortness of breath] Onset: 12-22-2024 Episodic Other nervous system disorders (5 sources) Impairment of balance; Translations: [Other abnormalities of gait and mobility] Onset: 01-05-2015 01-05-2015 Episodic Other non-traumatic joint disorders (5 sources) Hip pain; Translations: [Pain in unspecified hip] Onset: 01-05-2015 01-05-2015 Episodic Viral infection (11 sources) Parainfluenza; Translations: [Other viral infections of unspecified site] Onset: 11-11-2024 10-31-2024 Episodic Results Test Name Value Interpretation Reference Range Facility Gastroenterology Visit Repor ton 04-20-2025 Gastroenterology Visit Report Normal [facility] Anion gap in Serum or Plasma Ordered By: Phi Matamoros on 04-05-2025 Anion gap [Moles/Vol] 9 mmol/L 5-15 [facility] BUN/creatinine ratioOrdered By: Phi Matamoros on 04-05-2025 Urea nitrogen/Creatinine [Mass ratio] 37.2 mg/mg High - [facility] Basic Metabolic Profile (BMP )on 04-05-2025 BUN/CRE 37.2 RATIO High - [facility] Comment on above: Order Comment: 300.1 Performed By: #### L [id number] ####[facility] [address] [place], [address] Calcium [Mass/Vol] 8.7 mg/dL Normal 7.6-11.0 [facility] Comment on above: Order Comment: 300.1 Performed By: #### L [id number] ####[facility] [address] [place], [address] Chloride [Moles/Vol] 108 mmol/L Normal 98-108 [facility] Comment on above: Order Comment: 300.1 Performed By: #### L [id number] ####[facility] [address] [place], [address] CO2 [Moles/Vol] 23.0 mmol/L Normal 21.0-32.0 [facility] Comment on above: Order Comment: 300.1 Performed By: #### L [id number] ####[facility] [address] [place], [address] Creatinine [Mass/Vol] 0.59 mg/dL Low 0.70-1.20 [facility] Comment on above: Order Comment: 300.1 Performed By: #### L [id number] ####[facility] [address] [place], [address] GAP 9 Normal 5-15 [facility] Comment on above: Order Comment: 300.1 Performed By: #### L [id number] ####[facility] [address] [place], [address] GFR/1.73 sq M.predicted among non-blacks MDRD (S/P/Bld) [Vol rate/Area] 92 mL/min/{1.73_m2} Normal >60 [facility] Comment on above: Order Comment: 300.1 Result Comment: mL/m in/1.73m2 CKD-EPI Creatinine Equation (2020) Performed By: #### L [id number] ####[facility] [address] [place], [address] Glucose [Mass/Vol] 93 mg/dL Normal 70-99 [facility] Comment on above: Order Comment: 300.1 Performed By: #### L [id number] ####[facility] [address] [place], [address] Potassium [Moles/Vol] 4.2 mmol/L Normal 3.3-5.1 [facility] Comment on above: Order Comment: 300.1 Performed By: #### L [id number] ####[facility] [address] [place], [address] Sodium [Moles/Vol] 140 mmol/L Normal 133-145 [facility] Comment on above: Order Comment: 300.1 Performed By: #### L [id number] ####[facility] [address] [place], [address] Urea nitrogen [Mass/Vol] 22 mg/dL High 4-19 [facility] Comment on above: Order Comment: 300.1 Performed By: #### L [id number] ####[facility] [address] [place], [address] Carbon dioxide, total [Moles /volume] in Central venous bloodOrdered By: Phi Matamoros on 04-05-2025 CO2 [Moles/Vol] 23.0 mmol/L 21.0-32.0 [facility] Chloride assayOrdered By: Solomon on 04-05-2025 Chloride [Moles/Vol] 108 mmol/L 98-108 [facility] Glomerular filtration rate ( GFR) estimation/1.73 sq m using serum, plasma, or whole bOrdered By: Phi Matamoros on 04-05-2025 GFR/1.73 sq M.predicted among non-blacks MDRD (S/P/Bld) [Vol rate/Area] 92 mL/min/{1.73_m2} >60 [facility] Comment on above: mL/min/1.73m2 CKD-EP I Creatinine Equation (2020) Potassium measurement (mass/ volume)Ordered By: Phi Matamoros on 04-05-2025 Potassium (Unsp spec) [Mass/Vol] 4.2 mmol/L 3.3-5.1 [facility] Serum creatinine measurement (mass/volume)Ordered By: Phi Matamoros on 04-05-2025 Creatinine [Mass/Vol] 0.59 mg/dL Low 0.70-1.20 [facility] Serum glucose measurement (m ass/volume)Ordered By: Phi Matamoros on 04-05-2025 Glucose [Mass/Vol] 93 mg/dL 70-99 [facility] Serum or plasma calcium abhinav urement (mass/volume)Ordered By: Phi Matamoros on 04-05-2025 Calcium [Mass/Vol] 8.7 mg/dL 7.6-11.0 [facility] Serum or plasma urea nitroge n measurement (mass/volume)Ordered By: Phi Matamoros on 04-05-2025 Urea nitrogen [Mass/Vol] 22 mg/dL High 4-19 [facility] Sodium levelOrdered By: Phi Matamoros on 04-05-2025 Sodium [Moles/Vol] 140 mmol/L 133-145 [facility] Absolute lymphocyte countOrd ered By: Phi Matamoros on 02-24-2025 Lymphocytes Auto (Unsp spec) [#/Vol] 2.85 10*3/uL 0.83-4.51 [facility] Absolute neutrophil countOrd ered By: Phi Matamoros on 02-24-2025 Neutrophils (Bld) [#/Vol] 7.3 10*3/uL 2.0-7.7 [facility] Automated lymphocyte count a s percentage of total leukocytesOrdered By: Phi Matamoros on 02-24-2025 Lymphocytes/100 WBC Auto (Unsp spec) 24.1 % 19-41 [facility] Basophil percentageOrdered B y: Phi Deptomaszo on 02-24-2025 Basophils/100 WBC (Bld) 0.3 % 0-1 [facility] CBC W/Diff, Automatedon 01-29 Absolute Lymph 2.85 X10 3/uL Normal 0.83-4.51 [facility] Comment on above: Order Comment: 300-1 Performed By: #### L 100.0100 ####[facility] [address] [place], [address] Absolute Neut 7.3 X10 3/uL Normal 2.0-7.7 [facility] Comment on above: Order Comment: 300-1 Performed By: #### L 100.0100 ####[facility] [address] [place], [address] Basophils/100 WBC (Bld) 0.3 % Normal 0-1 [facility] Comment on above: Order Comment: 300-1 Performed By: #### L 100.0100 ####[facility] [address] [place], [address] Eosinophils/100 WBC (Bld) 0.8 % Normal 0-5 [facility] Comment on above: Order Comment: 300-1 Performed By: #### L 100.0100 ####[facility] [address] [place], [address] Erythrocyte distribution width (RBC) [Ratio] 15.4 % High 11.6-14.6 [facility] Comment on above: Order Comment: 300-1 Performed By: #### L 100.0100 ####[facility] [address] [place], [address] Hematocrit (Bld) [Volume fraction] 28.9 % Low 37-47 [facility] Comment on above: Order Comment: 300-1 Performed By: #### L 100.0100 ####[facility] [address] [place], [address] Hemoglobin (Bld) [Mass/Vol] 9.2 g/dL Low 12.0-15. 0 [facility] Comment on above: Order Comment: 300-1 Performed By: #### L 100.0100 ####[facility] [address] [place], [address] IG% 0.900 Normal 0.0-0.9 [facility] Comment on above: Order Comment: 300-1 Result Comment: IG% - Immature Granulocytes (promyelocytes, myelocytes andmetamyelocytes) > 1% indicates that a LEFT SHIFT is Present. Performed By: #### L 100.0100 ####[facility] [address] [place], [address] Lymphocytes/100 WBC (Bld) 24.1 % Normal 19-41 [facility] Comment on above: Order Comment: 300-1 Performed By: #### L 100.0100 ####[facility] [address] [place], [address] MCH (RBC) [Entitic mass] 27.6 pg Normal 27.0-32.0 [facility] Comment on above: Order Comment: 300-1 Performed By: #### L 100.0100 ####[facility] [address] [place], [address] MCHC (RBC) [Mass/Vol] 31.8 g/dL Low 32-36 [facility] Comment on above: Order Comment: 300-1 Performed By: #### L 100.0100 ####[facility] [address] [place], [address] MCV (RBC) [Entitic vol] 86.8 fL Normal 81-99 [facility] Comment on above: Order Comment: 300-1 Performed By: #### L 100.0100 ####[facility] [address] [place], [address] Monocytes/100 WBC (Bld) 12.3 % High 0-10 [facility] Comment on above: Order Comment: 300-1 Performed By: #### L 100.0100 ####[facility] [address] [place], [address] Neutrophils/100 WBC (Bld) 61.6 % Normal 47-70 [facility] Comment on above: Order Comment: 300-1 Performed By: #### L 100.0100 ####[facility] [address] [place], [address] Nucleated RBC (Bld) [#/Vol] 0 10*3/uL Normal 0-5 [facility] Comment on above: Order Comment: 300-1 Performed By: #### L 100.0100 ####[facility] [address] [place], [address] Platelet mean volume (Bld) [Entitic vol] 10.6 fL Normal 6.2-12.0 [facility] Comment on above: Order Comment: 300-1 Performed By: #### L 100.0100 ####[facility] [address] [place], [address] Platelets (Bld) [#/Vol] 353 10*3/uL Normal 150-450 [facility] Comment on above: Order Comment: 300-1 Performed By: #### L 100.0100 ####[facility] [address] [place], [address] RBC (Bld) [#/Vol] 3.33 10*6/uL Low 4.2-5.4 [facility] Comment on above: Order Comment: 300-1 Performed By: #### L 100.0100 ####[facility] [address] [place], [address] RDW SD 49.3 fl High 35.1-43.9 [facility] Comment on above: Order Comment: 300-1 Performed By: #### L 100.0100 ####[facility] [address] [place], [address] WBC (Bld) [#/Vol] 11.8 10*3/uL High 4.4-11.0 [facility] Comment on above: Order Comment: 300-1 Performed By: #### L 100.0100 ####[facility] [address] [place], [address] Eosinophil percentageOrdered By: Phi Matamoros on 02-24-2025 Eosinophils/100 WBC (Bld) 0.8 % 0-5 [facility] Erythrocyte distribution wid th ratioOrdered By: Phi Matamoros on 02-24-2025 Erythrocyte distribution width (RBC) [Ratio] 15.4 % High 11.6-14.6 [facility] Erythrocyte distribution wid th standard deviationOrdered By: Phi Matamoros on 02-24-2025 Erythrocyte distribution width (RBC) [Ratio] 49.3 fl High 35.1-43.9 [facility] Hematocrit Auto (Bld) [Volum e fraction]Ordered By: Phi Matamoros on 02-24-2025 Hematocrit (Bld) [Volume fraction] 28.9 % Low 37-47 [facility] Hemoglobin measurementOrdere d By: Phi Matamoros on 02-24-2025 Hemoglobin (Bld) [Mass/Vol] 9.2 g/dL Low 12.0-15. 0 [facility] Immature granulocytes/100 WB C Auto (Bld)Ordered By: Phi Matamoros on 02-24-2025 Immature granulocytes/100 WBC (Bld) 0.900 % 0.0-0.9 [facility] Comment on above: IG% - Immature Granu locytes (promyelocytes, myelocytes and metamyelocytes) > 1% indicates that a LEFT SHIFT is Present. MCV (mean corpuscular volume ) determinationOrdered By: Phi Matamoros on 02-24-2025 MCV (RBC) [Entitic vol] 86.8 fL 81-99 [facility] Mean corpuscular hemoglobin (MCH) determinationOrdered By: Phi Matamoros on 02-24-2025 MCH (RBC) [Entitic mass] 27.6 pg 27.0-32.0 [facility] Mean corpuscular hemoglobin concentration (MCHC) determinationOrdered By: Phi Matamoros on 02-24-2025 MCHC (RBC) [Mass/Vol] 31.8 g/dL Low 32-36 [facility] Mean platelet volume determi nationOrdered By: Phi Matamoros on 02-24-2025 Platelet mean volume (Bld) [Entitic vol] 10.6 fL 6.2-12.0 [facility] Monocyte percentageOrdered B y: Phi Matamoros on 02-24-2025 Monocytes/100 WBC (Bld) 12.3 % High 0-10 [facility] Neutrophil percentageOrdered By: Phi Matamoros on 02-24-2025 Neutrophils/100 WBC (Bld) 61.6 % 47-70 [facility] Nucleated red blood cell per centageOrdered By: Phi Matamoros on 02-24-2025 Nucleated RBC/100 WBC (Bld) [Ratio] 0 % 0-5 [facility] Platelet countOrdered By: Solomon on 02-24-2025 Platelets (Bld) [#/Vol] 353 10*3/uL 150-450 [facility] RBC Auto (Bld) [#/Vol]Ordere d By: Phi Matamoros on 02-24-2025 RBC (Bld) [#/Vol] 3.33 10*6/uL Low 4.2-5.4 [facility] White blood cell (WBC) count Ordered By: Phi Matamoros on 02-24-2025 WBC (Bld) [#/Vol] 11.8 10*3/uL High 4.4-11.0 [facility] Anion gap in Serum or Plasma Ordered By: Phi Matamoros on 02-23-2025 Anion gap [Moles/Vol] 12 mmol/L 5-15 [facility] BUN/creatinine ratioOrdered By: Phi Matamoros on 02-23-2025 Urea nitrogen/Creatinine [Mass ratio] 26.2 mg/mg High 10-20 [facility] Basic Metabolic Profile (BMP )on 02-23-2025 BUN/CRE 26.2 RATIO High 10-20 [facility] Comment on above: Order Comment: 300.1 Performed By: #### L 100.0500, L500.2500 ####[facility] [address] [place], [address] Calcium [Mass/Vol] 8.5 mg/dL Normal 7.6-11.0 [facility] Comment on above: Order Comment: 300.1 Performed By: #### L 100.0500, L500.2500 ####[facility] [address] [place], [address] Chloride [Moles/Vol] 103 mmol/L Normal 98-108 [facility] Comment on above: Order Comment: 300.1 Performed By: #### L 100.0500, L500.2500 ####[facility] [address] [place], [address] CO2 [Moles/Vol] 20.7 mmol/L Low 21.0-32.0 [facility] Comment on above: Order Comment: 300.1 Performed By: #### L 100.0500, L500.2500 ####[facility] [address] [place], [address] Creatinine [Mass/Vol] 0.49 mg/dL Low 0.70-1.20 [facility] Comment on above: Order Comment: 300.1 Performed By: #### L 100.0500, L500.2500 ####[facility] [address] [place], [address] GAP 12 Normal 5-15 [facility] Comment on above: Order Comment: 300.1 Performed By: #### L 100.0500, L500.2500 ####[facility] [address] [place], [address] GFR/1.73 sq M.predicted among non-blacks MDRD (S/P/Bld) [Vol rate/Area] 97 mL/min/{1.73_m2} Normal >60 [facility] Comment on above: Order Comment: 300.1 Result Comment: mL/m in/1.73m2 CKD-EPI Creatinine Equation (2020) Performed By: #### L 100.0500, L500.2500 ####[facility] [address] [place], [address] Glucose [Mass/Vol] 115 mg/dL High 70-99 [facility] Comment on above: Order Comment: 300.1 Performed By: #### L 100.0500, L500.2500 ####[facility] [address] [place], [address] Potassium [Moles/Vol] 4.0 mmol/L Normal 3.3-5.1 [facility] Comment on above: Order Comment: 300.1 Performed By: #### L 100.0500, L500.2500 ####[facility] [address] [place], [address] Sodium [Moles/Vol] 136 mmol/L Normal 133-145 [facility] Comment on above: Order Comment: 300.1 Performed By: #### L 100.0500, L500.2500 ####[facility] [address] [place], [address] Urea nitrogen [Mass/Vol] 13 mg/dL Normal 4-19 [facility] Comment on above: Order Comment: 300.1 Performed By: #### L 100.0500, L500.2500 ####[facility] [address] [place], [address] CBC-Complete Blood Cnt No Di ffon 02-23-2025 Erythrocyte distribution width (RBC) [Ratio] 15.5 % High 11.6-14.6 [facility] Comment on above: Order Comment: 300.1 Performed By: #### L 100.0500, L500.2500 ####[facility] [address] [place], [address] Hematocrit (Bld) [Volume fraction] 30.4 % Low 37-47 [facility] Comment on above: Order Comment: 300.1 Performed By: #### L 100.0500, L500.2500 ####[facility] [address] [place], [address] Hemoglobin (Bld) [Mass/Vol] 9.8 g/dL Low 12.0-15. 0 [facility] Comment on above: Order Comment: 300.1 Performed By: #### L 100.0500, L500.2500 ####[facility] [address] [place], [address] MCH (RBC) [Entitic mass] 28.5 pg Normal 27.0-32.0 [facility] Comment on above: Order Comment: 300.1 Performed By: #### L 100.0500, L500.2500 ####[facility] [address] [place], [address] MCHC (RBC) [Mass/Vol] 32.2 g/dL Normal 32-36 [facility] Comment on above: Order Comment: 300.1 Performed By: #### L 100.0500, L500.2500 ####[facility] [address] [place], [address] MCV (RBC) [Entitic vol] 88.4 fL Normal 81-99 [facility] Comment on above: Order Comment: 300.1 Performed By: #### L 100.0500, L500.2500 ####[facility] [address] [place], [address] Platelet mean volume (Bld) [Entitic vol] 11.3 fL Normal 6.2-12.0 [facility] Comment on above: Order Comment: 300.1 Performed By: #### L 100.0500, L500.2500 ####[facility] [address] [place], [address] Platelets (Bld) [#/Vol] 283 10*3/uL Normal 150-450 [facility] Comment on above: Order Comment: 300.1 Performed By: #### L 100.0500, L500.2500 ####[facility] [address] [place], [address] RBC (Bld) [#/Vol] 3.44 10*6/uL Low 4.2-5.4 [facility] Comment on above: Order Comment: 300.1 Performed By: #### L 100.0500, L500.2500 ####[facility] [address] [place], [address] RDW SD 50.1 fl High 35.1-43.9 [facility] Comment on above: Order Comment: 300.1 Performed By: #### L 100.0500, L500.2500 ####[facility] [address] [place], [address] WBC (Bld) [#/Vol] 12.9 10*3/uL High 4.4-11.0 [facility] Comment on above: Order Comment: 300.1 Performed By: #### L 100.0500, L500.2500 ####[facility] [address] [place], [address] Carbon dioxide, total [Moles /volume] in Central venous bloodOrdered By: Phi Matamoros on 02-23-2025 CO2 [Moles/Vol] 20.7 mmol/L Low 21.0-32.0 [facility] Chloride assayOrdered By: Solomon on 02-23-2025 Chloride [Moles/Vol] 103 mmol/L 98-108 [facility] Erythrocyte distribution wid th ratioOrdered By: Phi Matamoros on 02-23-2025 Erythrocyte distribution width (RBC) [Ratio] 15.5 % High 11.6-14.6 [facility] Erythrocyte distribution wid th standard deviationOrdered By: Phi Matamoros on 02-23-2025 Erythrocyte distribution width (RBC) [Ratio] 50.1 fl High 35.1-43.9 [facility] Glomerular filtration rate ( GFR) estimation/1.73 sq m using serum, plasma, or whole bOrdered By: Phi Matamoros on 02-23-2025 GFR/1.73 sq M.predicted among non-blacks MDRD (S/P/Bld) [Vol rate/Area] 97 mL/min/{1.73_m2} >60 [facility] Comment on above: mL/min/1.73m2 CKD-EP I Creatinine Equation (2020) Hematocrit Auto (Bld) [Volum e fraction]Ordered By: Phi Matamoros on 02-23-2025 Hematocrit (Bld) [Volume fraction] 30.4 % Low 37-47 [facility] Hemoglobin measurementOrdere d By: Phi Matamoros on 02-23-2025 Hemoglobin (Bld) [Mass/Vol] 9.8 g/dL Low 12.0-15. 0 [facility] MCV (mean corpuscular volume ) determinationOrdered By: Phi Matamoros on 02-23-2025 MCV (RBC) [Entitic vol] 88.4 fL 81-99 [facility] Mean corpuscular hemoglobin (MCH) determinationOrdered By: Phi Matamoros on 02-23-2025 MCH (RBC) [Entitic mass] 28.5 pg 27.0-32.0 [facility] Mean corpuscular hemoglobin concentration (MCHC) determinationOrdered By: Phi Matamoros on 02-23-2025 MCHC (RBC) [Mass/Vol] 32.2 g/dL 32-36 [facility] Mean platelet volume determi nationOrdered By: Phi Matamoros on 02-23-2025 Platelet mean volume (Bld) [Entitic vol] 11.3 fL 6.2-12.0 [facility] Platelet countOrdered By: Solomon on 02-23-2025 Platelets (Bld) [#/Vol] 283 10*3/uL 150-450 [facility] Potassium measurement (mass/ volume)Ordered By: Phi Matamoros on 02-23-2025 Potassium (Unsp spec) [Mass/Vol] 4.0 mmol/L 3.3-5.1 [facility] RBC Auto (Bld) [#/Vol]Ordere d By: Phi Matamoros on 02-23-2025 RBC (Bld) [#/Vol] 3.44 10*6/uL Low 4.2-5.4 [facility] Serum creatinine measurement (mass/volume)Ordered By: Phi Matamoros on 02-23-2025 Creatinine [Mass/Vol] 0.49 mg/dL Low 0.70-1.20 [facility] Serum glucose measurement (m ass/volume)Ordered By: Phi Matamoros on 02-23-2025 Glucose [Mass/Vol] 115 mg/dL High 70-99 [facility] Serum or plasma calcium abhinav urement (mass/volume)Ordered By: Phi Matamoros on 02-23-2025 Calcium [Mass/Vol] 8.5 mg/dL 7.6-11.0 [facility] Serum or plasma urea nitroge n measurement (mass/volume)Ordered By: Phi Matamoros on 02-23-2025 Urea nitrogen [Mass/Vol] 13 mg/dL 4- [facility] Sodium levelOrdered By: Phi Matamoros on 02-23-2025 Sodium [Moles/Vol] 136 mmol/L 133-145 [facility] White blood cell (WBC) count Ordered By: Phi Matamoros on 02-23-2025 WBC (Bld) [#/Vol] 12.9 10*3/uL High 4.4-11.0 [facility] Anion gap in Serum or Plasma Ordered By: Phi Matamoros on 02-15-2025 Anion gap [Moles/Vol] 9 mmol/L 5-15 [facility] BUN/creatinine ratioOrdered By: Phi Matamoros on 02-15-2025 Urea nitrogen/Creatinine [Mass ratio] 29.7 mg/mg High 10- [facility] Basic Metabolic Profile (BMP )on 02-15-2025 BUN/CRE 29.7 RATIO High - [facility] Comment on above: Order Comment: 300-1 Performed By: #### L 500.2500 ####[facility] [address] [place], [address] Calcium [Mass/Vol] 8.8 mg/dL Normal 7.6-11.0 [facility] Comment on above: Order Comment: 300-1 Performed By: #### L 500.2500 ####[facility] [address] [place], [address] Chloride [Moles/Vol] 105 mmol/L Normal 98-108 [facility] Comment on above: Order Comment: 300-1 Performed By: #### L 500.2500 ####[facility] [address] [place], [address] CO2 [Moles/Vol] 23.7 mmol/L Normal 21.0-32.0 [facility] Comment on above: Order Comment: 300-1 Performed By: #### L 500.2500 ####[facility] [address] [place], [address] Creatinine [Mass/Vol] 0.48 mg/dL Low 0.70-1.20 [facility] Comment on above: Order Comment: 300-1 Performed By: #### L 500.2500 ####[facility] [address] [place], [address] GAP 9 Normal 5-15 [facility] Comment on above: Order Comment: 300-1 Performed By: #### L 500.2500 ####[facility] [address] [place], [address] GFR/1.73 sq M.predicted among non-blacks MDRD (S/P/Bld) [Vol rate/Area] 97 mL/min/{1.73_m2} Normal >60 [facility] Comment on above: Order Comment: 300-1 Result Comment: mL/m in/1.73m2 CKD-EPI Creatinine Equation (2020) Performed By: #### L 500.2500 ####[facility] [address] [place], [address] Glucose [Mass/Vol] 93 mg/dL Normal 70-99 [facility] Comment on above: Order Comment: 300-1 Performed By: #### L 500.2500 ####[facility] [address] [place], [address] Potassium [Moles/Vol] 4.1 mmol/L Normal 3.3-5.1 [facility] Comment on above: Order Comment: 300-1 Performed By: #### L 500.2500 ####[facility] [address] [place], [address] Sodium [Moles/Vol] 138 mmol/L Normal 133-145 [facility] Comment on above: Order Comment: 300-1 Performed By: #### L 500.2500 ####[facility] [address] [place], [address] Urea nitrogen [Mass/Vol] 14 mg/dL Normal 4-19 [facility] Comment on above: Order Comment: 300-1 Performed By: #### L 500.2500 ####[facility] [address] [place], [address] Carbon dioxide, total [Moles /volume] in Central venous bloodOrdered By: Phi Matamoros on 02-15-2025 CO2 [Moles/Vol] 23.7 mmol/L 21.0-32.0 [facility] Chloride assayOrdered By: Solomon on 02-15-2025 Chloride [Moles/Vol] 105 mmol/L 98-108 [facility] Glomerular filtration rate ( GFR) estimation/1.73 sq m using serum, plasma, or whole bOrdered By: Phi Matamoros on 02-15-2025 GFR/1.73 sq M.predicted among non-blacks MDRD (S/P/Bld) [Vol rate/Area] 97 mL/min/{1.73_m2} >60 [facility] Comment on above: mL/min/1.73m2 CKD-EP I Creatinine Equation (2020) Potassium measurement (mass/ volume)Ordered By: Phi Matamoros on 02-15-2025 Potassium (Unsp spec) [Mass/Vol] 4.1 mmol/L 3.3-5.1 [facility] Serum creatinine measurement (mass/volume)Ordered By: Phi Matamoros on 02-15-2025 Creatinine [Mass/Vol] 0.48 mg/dL Low 0.70-1.20 [facility] Serum glucose measurement (m ass/volume)Ordered By: Phi Matamoros on 02-15-2025 Glucose [Mass/Vol] 93 mg/dL 70-99 [facility] Serum or plasma calcium abhinav urement (mass/volume)Ordered By: Phi Matamoros on 02-15-2025 Calcium [Mass/Vol] 8.8 mg/dL 7.6-11.0 [facility] Serum or plasma urea nitroge n measurement (mass/volume)Ordered By: Phi Matamoros on 02-15-2025 Urea nitrogen [Mass/Vol] 14 mg/dL 01-16 [facility] Sodium levelOrdered By: Phi Matamoros on 02-15-2025 Sodium [Moles/Vol] 138 mmol/L 133-145 [facility] Anion gap in Serum or Plasma Ordered By: Phi Matamoros on 01-25-2025 Anion gap [Moles/Vol] 9 mmol/L 02-11 [facility] BUN/creatinine ratioOrdered By: Phi Matamoros on 01-25-2025 Urea nitrogen/Creatinine [Mass ratio] 48.4 mg/mg High 07-19 [facility] Basic Metabolic Profile (BMP )on 01-25-2025 BUN/CRE 48.4 RATIO High 07-19 [facility] Comment on above: Order Comment: 300.1 Performed By: #### L 500.2500 ####[facility] [address] [place], [place], [address] Calcium [Mass/Vol] 8.8 mg/dL Normal 7.6-11.0 [facility] Comment on above: Order Comment: 300.1 Performed By: #### L 500.2500 ####[facility] [address] [place], [address] Chloride [Moles/Vol] 106 mmol/L Normal 98-108 [facility] Comment on above: Order Comment: 300.1 Performed By: #### L 500.2500 ####[facility] [address] [place], [address] CO2 [Moles/Vol] 24.3 mmol/L Normal 21.0-32.0 [facility] Comment on above: Order Comment: 300.1 Performed By: #### L 500.2500 ####[facility] [address] [place], [address] Creatinine [Mass/Vol] 0.43 mg/dL Low 0.70-1.20 [facility] Comment on above: Order Comment: 300.1 Performed By: #### L 500.2500 ####[facility] [address] [place], [address] GAP 9 Normal 5-15 [facility] Comment on above: Order Comment: 300.1 Performed By: #### L 500.2500 ####[facility] [address] [place], [address] GFR/1.73 sq M.predicted among non-blacks MDRD (S/P/Bld) [Vol rate/Area] 100 mL/min/{1.73_m2} Normal >60 [facility] Comment on above: Order Comment: 300.1 Result Comment: mL/m in/1.73m2 CKD-EPI Creatinine Equation (2020) Performed By: #### L 500.2500 ####[facility] [address] [place], [address] Glucose [Mass/Vol] 109 mg/dL High 70-99 [facility] Comment on above: Order Comment: 300.1 Performed By: #### L 500.2500 ####[facility] [address] [place], [address] Potassium [Moles/Vol] 4.6 mmol/L Normal 3.3-5.1 [facility] Comment on above: Order Comment: 300.1 Performed By: #### L 500.2500 ####[facility] [address] [place], [address] Sodium [Moles/Vol] 139 mmol/L Normal 133-145 [facility] Comment on above: Order Comment: 300.1 Performed By: #### L 500.2500 ####[facility] [address] [place], [address] Urea nitrogen [Mass/Vol] 21 mg/dL High 4-19 [facility] Comment on above: Order Comment: 300.1 Performed By: #### L 500.2500 ####[facility] [address] [place], [place], [address] Carbon dioxide, total [Moles /volume] in Central venous bloodOrdered By: Phi Matamoros on 01-25-2025 CO2 [Moles/Vol] 24.3 mmol/L 21.0-32.0 [facility] Chloride assayOrdered By: Solomon on 01-25-2025 Chloride [Moles/Vol] 106 mmol/L 98-108 [facility] Glomerular filtration rate ( GFR) estimation/1.73 sq m using serum, plasma, or whole bOrdered By: Phi Matamoros on 01-25-2025 GFR/1.73 sq M.predicted among non-blacks MDRD (S/P/Bld) [Vol rate/Area] 100 mL/min/{1.73_m2} >60 [facility] Comment on above: mL/min/1.73m2 CKD-EP I Creatinine Equation (2020) Potassium measurement (mass/ volume)Ordered By: Phi Matamoros on 01-25-2025 Potassium (Unsp spec) [Mass/Vol] 4.6 mmol/L 3.3-5.1 [facility] Serum creatinine measurement (mass/volume)Ordered By: Phi Matamoros on 01-25-2025 Creatinine [Mass/Vol] 0.43 mg/dL Low 0.70-1.20 [facility] [facility] Serum glucose measurement (m ass/volume)Ordered By: Phi Matamoros on 01-25-2025 Glucose [Mass/Vol] 109 mg/dL High 70-99 [facility] Serum or plasma calcium abhinav urement (mass/volume)Ordered By: Phi Matamoros on 01-25-2025 Calcium [Mass/Vol] 8.8 mg/dL 7.6-11.0 [facility] Serum or plasma urea nitroge n measurement (mass/volume)Ordered By: Phi Matamoros on 01-25-2025 Urea nitrogen [Mass/Vol] 21 mg/dL High 4-19 [facility] Sodium levelOrdered By: Phi Matamoros on 01-25-2025 Sodium [Moles/Vol] 139 mmol/L 133-145 [facility] Absolute lymphocyte countOrd ered By: Phi Matamoros on 01-18-2025 Lymphocytes Auto (Unsp spec) [#/Vol] 2.72 10*3/uL 0.83-4.51 [facility] Absolute neutrophil countOrd ered By: Phi Matamoros on 01-18-2025 Neutrophils (Bld) [#/Vol] 3.6 10*3/uL 2.0-7.7 [facility] Anion gap in Serum or Plasma Ordered By: Phi Matamoros on 01-18-2025 Anion gap [Moles/Vol] 10 mmol/L 5-15 [facility] Automated lymphocyte count a s percentage of total leukocytesOrdered By: Phi Matamoros on 01-18-2025 Lymphocytes/100 WBC Auto (Unsp spec) 36.9 % 19-41 [facility] BUN/creatinine ratioOrdered By: Phi Mataomros on 01-18-2025 Urea nitrogen/Creatinine [Mass ratio] 42.0 mg/mg High 10-20 [facility] Basophil percentageOrdered B y: Phi Matamoros on 01-18-2025 Basophils/100 WBC (Bld) 0.8 % 0-1 [facility] Bilirubin, totalOrdered By: Phi Matamoros on 01-18-2025 Bilirubin [Mass/Vol] 0.30 mg/dL 0.00-1.30 [facility] CBC W/Diff, Automatedon 04-2 Absolute Lymph 2.72 X10 3/uL Normal 0.83-4.51 [facility] Comment on above: Order Comment: 300.1 Performed By: #### L 100.0100, L500.4050, L101.9900 ####[facility] [address] [place], [address] Absolute Neut 3.6 X10 3/uL Normal 2.0-7.7 [facility] Comment on above: Order Comment: 300.1 Performed By: #### L 100.0100, L500.4050, L101.9900 ####[facility] [address] [place], [address] Basophils/100 WBC (Bld) 0.8 % Normal 0-1 [facility] Comment on above: Order Comment: 300.1 Performed By: #### L 100.0100, L500.4050, L101.9900 ####[facility] [address] [place], [address] Eosinophils/100 WBC (Bld) 2.2 % Normal 0-5 [facility] Comment on above: Order Comment: 300.1 Performed By: #### L 100.0100, L500.4050, L101.9900 ####[facility] [address] [place], [address] Erythrocyte distribution width (RBC) [Ratio] 16.5 % High 11.6-14.6 [facility] Comment on above: Order Comment: 300.1 Performed By: #### L 100.0100, L500.4050, L101.9900 ####[facility] [address] [place], [address] Hematocrit (Bld) [Volume fraction] 29.7 % Low 37-47 [facility] Comment on above: Order Comment: 300.1 Performed By: #### L 100.0100, L500.4050, L101.9900 ####[facility] [address] [place], [address] Hemoglobin (Bld) [Mass/Vol] 9.3 g/dL Low 12.0-15. 0 [facility] Comment on above: Order Comment: 300.1 Performed By: #### L 100.0100, L500.4050, L101.9900 ####[facility] [address] [place], [address] IG% 0.300 Normal 0.0-0.9 [facility] Comment on above: Order Comment: 300.1 Result Comment: IG% - Immature Granulocytes (promyelocytes, myelocytes andmetamyelocytes) > 1% indicates that a LEFT SHIFT is Present. Performed By: #### L 100.0100, L500.4050, L101.9900 ####[facility] [address] [place], [address] Lymphocytes/100 WBC (Bld) 36.9 % Normal 19-41 [facility] Comment on above: Order Comment: 300.1 Performed By: #### L 100.0100, L500.4050, L101.9900 ####[facility] [address] [place], [address] MCH (RBC) [Entitic mass] 28.8 pg Normal 27.0-32.0 [facility] Comment on above: Order Comment: 300.1 Performed By: #### L 100.0100, L500.4050, L101.9900 ####[facility] [address] [place], [address] MCHC (RBC) [Mass/Vol] 31.3 g/dL Low 32-36 [facility] Comment on above: Order Comment: 300.1 Performed By: #### L 100.0100, L500.4050, L101.9900 ####[facility] [address] [place], [address] MCV (RBC) [Entitic vol] 92.0 fL Normal 81-99 [facility] Comment on above: Order Comment: 300.1 Performed By: #### L 100.0100, L500.4050, L101.9900 ####[facility] [address] [place], [address] Monocytes/100 WBC (Bld) 11.4 % High 0-10 [facility] Comment on above: Order Comment: 300.1 Performed By: #### L 100.0100, L500.4050, L101.9900 ####[facility] [address] [place], [address] Neutrophils/100 WBC (Bld) 48.4 % Normal 47-70 [facility] Comment on above: Order Comment: 300.1 Performed By: #### L 100.0100, L500.4050, L101.9900 ####[facility] [address] [place], [address] Nucleated RBC (Bld) [#/Vol] 0 10*3/uL Normal 0-5 [facility] Comment on above: Order Comment: 300.1 Performed By: #### L 100.0100, L500.4050, L101.9900 ####[facility] [address] [place], [address] Platelet mean volume (Bld) [Entitic vol] 11.3 fL Normal 6.2-12.0 [facility] Comment on above: Order Comment: 300.1 Performed By: #### L 100.0100, L500.4050, L101.9900 ####[facility] [address] [place], [address] Platelets (Bld) [#/Vol] 283 10*3/uL Normal 150-450 [facility] Comment on above: Order Comment: 300.1 Performed By: #### L 100.0100, L500.4050, L101.9900 ####[facility] [address] [place], [address] RBC (Bld) [#/Vol] 3.23 10*6/uL Low 4.2-5.4 [facility] Comment on above: Order Comment: 300.1 Performed By: #### L 100.0100, L500.4050, L101.9900 ####[facility] [address] [place], [address] RDW SD 55.7 fl High 35.1-43.9 [facility] Comment on above: Order Comment: 300.1 Performed By: #### L 100.0100, L500.4050, L101.9900 ####[facility] [address] [place], [address] WBC (Bld) [#/Vol] 7.4 10*3/uL Normal 4.4-11.0 [facility] Comment on above: Order Comment: 300.1 Performed By: #### L 100.0100, L500.4050, L101.9900 ####[facility] [address] [place], [address] Carbon dioxide, total [Moles /volume] in Central venous bloodOrdered By: Phi Matamoros on 01-18-2025 CO2 [Moles/Vol] 25.2 mmol/L 21.0-32.0 [facility] Chloride assayOrdered By: Solomon on 01-18-2025 Chloride [Moles/Vol] 102 mmol/L 98-108 [facility] Comprehensive Metabolic Prof ilon 01-18-2025 Albumin [Mass/Vol] 3.1 g/dL Low 3.4-4.8 [facility] Comment on above: Order Comment: 300.1 Performed By: #### L 100.0100, L500.4050, L101.9900 ####[facility] [address] [place], [address] Albumin/Globulin [Mass ratio] 1.1 {ratio} Normal 0.9-2.4 [facility] Comment on above: Order Comment: 300.1 Performed By: #### L 100.0100, L500.4050, L101.9900 ####[facility] [address] [place], [address] ALK PHOS 80 U/L Normal 35-104 [facility] Comment on above: Order Comment: 300.1 Performed By: #### L 100.0100, L500.4050, L101.9900 ####[facility] [address] [place], [address] ALT [Catalytic activity/Vol] 19 U/L Normal <=34 [facility] Comment on above: Order Comment: 300.1 Performed By: #### L 100.0100, L500.4050, L101.9900 ####[facility] [address] [place], [address] AST [Catalytic activity/Vol] 21 U/L Normal <=31 [facility] Comment on above: Order Comment: 300.1 Performed By: #### L 100.0100, L500.4050, L101.9900 ####[facility] [address] [place], [address] Bilirubin [Mass/Vol] 0.30 mg/dL Normal 0.00-1.30 [facility] Comment on above: Order Comment: 300.1 Performed By: #### L 100.0100, L500.4050, L101.9900 ####[facility] [address] [place], [address] BUN/CRE 42.0 RATIO High 10-20 [facility] Comment on above: Order Comment: 300.1 Performed By: #### L 100.0100, L500.4050, L101.9900 ####[facility] [address] [place], [address] Calcium [Mass/Vol] 9.3 mg/dL Normal 7.6-11.0 [facility] Comment on above: Order Comment: 300.1 Performed By: #### L 100.0100, L500.4050, L101.9900 ####[facility] [address] [place], [address] Chloride [Moles/Vol] 102 mmol/L Normal 98-108 [facility] Comment on above: Order Comment: 300.1 Performed By: #### L 100.0100, L500.4050, L101.9900 ####[facility] [address] [place], [address] CO2 [Moles/Vol] 25.2 mmol/L Normal 21.0-32.0 [facility] Comment on above: Order Comment: 300.1 Performed By: #### L 100.0100, L500.4050, L101.9900 ####[facility] [address] [place], [address] Creatinine [Mass/Vol] 0.40 mg/dL Low 0.70-1.20 [facility] Comment on above: Order Comment: 300.1 Performed By: #### L 100.0100, L500.4050, L101.9900 ####[facility] [address] [place], [address] GAP 10 Normal 5-15 [facility] Comment on above: Order Comment: 300.1 Performed By: #### L 100.0100, L500.4050, L101.9900 ####[facility] [address] [place], [address] GFR/1.73 sq M.predicted among non-blacks MDRD (S/P/Bld) [Vol rate/Area] 102 mL/min/{1.73_m2} Normal >60 [facility] Comment on above: Order Comment: 300.1 Result Comment: mL/m in/1.73m2 CKD-EPI Creatinine Equation (2020) Performed By: #### L 100.0100, L500.4050, L101.9900 ####[facility] [address] [place], [address] Globulin (S) [Mass/Vol] 2.9 g/dL Normal 2.2-4.2 [facility] Comment on above: Order Comment: 300.1 Performed By: #### L 100.0100, L500.4050, L101.9900 ####[facility] [address] [place], [address] Glucose [Mass/Vol] 124 mg/dL High 70-99 [facility] Comment on above: Order Comment: 300.1 Performed By: #### L 100.0100, L500.4050, L101.9900 ####[facility] [address] [place], [address] Potassium [Moles/Vol] 4.1 mmol/L Normal 3.3-5.1 [facility] Comment on above: Order Comment: 300.1 Performed By: #### L 100.0100, L500.4050, L101.9900 ####[facility] [address] [place], [address] Sodium [Moles/Vol] 137 mmol/L Normal 133-145 [facility] Comment on above: Order Comment: 300.1 Performed By: #### L 100.0100, L500.4050, L101.9900 ####[facility] [address] [place], [address] T PROT 6.0 g/dL Normal 5.9-8.4 [facility] Comment on above: Order Comment: 300.1 Performed By: #### L 100.0100, L500.4050, L101.9900 ####[facility] [address] [place], [address] Urea nitrogen [Mass/Vol] 17 mg/dL Normal 4-19 [facility] Comment on above: Order Comment: 300.1 Performed By: #### L 100.0100, L500.4050, L101.9900 ####[facility] [address] [place], [address] Eosinophil percentageOrdered By: Phi Matamoros on 01-18-2025 Eosinophils/100 WBC (Bld) 2.2 % 0-5 [facility] Erythrocyte Sed Rateon 01-18 SED RATE 27 mm/hr Normal 0-30 [facility] Comment on above: Order Comment: 300.1 Performed By: #### L 100.0100, L500.4050, L101.9900 ####[facility] [address] [facility] [place], [address] Erythrocyte distribution wid th ratioOrdered By: Phi Matamoros on 01-18-2025 Erythrocyte distribution width (RBC) [Ratio] 16.5 % High 11.6-14.6 [facility] Erythrocyte distribution wid th standard deviationOrdered By: Phi Matamoros on 01-18-2025 Erythrocyte distribution width (RBC) [Ratio] 55.7 fl High 35.1-43.9 [facility] Erythrocyte sedimentation ra teOrdered By: Phi Matamoros on 01-18-2025 ESR (Bld) [Velocity] 27 mm/h 0-30 [facility] Glomerular filtration rate ( GFR) estimation/1.73 sq m using serum, plasma, or whole bOrdered By: Phi Matamoros on 01-18-2025 GFR/1.73 sq M.predicted among non-blacks MDRD (S/P/Bld) [Vol rate/Area] 102 mL/min/{1.73_m2} >60 [facility] Comment on above: mL/min/1.73m2 CKD-EP I Creatinine Equation (2020) Hematocrit Auto (Bld) [Volum e fraction]Ordered By: Phi Matamoros on 01-18-2025 Hematocrit (Bld) [Volume fraction] 29.7 % Low 37-47 [facility] Hemoglobin measurementOrdere d By: Phi Matamoros on 01-18-2025 Hemoglobin (Bld) [Mass/Vol] 9.3 g/dL Low 12.0-15. 0 [facility] Immature granulocytes/100 WB C Auto (Bld)Ordered By: Phi Matamoros on 01-18-2025 Immature granulocytes/100 WBC (Bld) 0.300 % 0.0-0.9 [facility] Comment on above: IG% - Immature Granu locytes (promyelocytes, myelocytes and metamyelocytes) > 1% indicates that a LEFT SHIFT is Present. Laboratory - Chemistry and C hemistry - challengeOrdered By: Phi Matamoros on 01-18-2025 AST [Catalytic activity/Vol] 21 U/L <32 [facility] MCV (mean corpuscular volume ) determinationOrdered By: Phi Matamoros on 01-18-2025 MCV (RBC) [Entitic vol] 92.0 fL 81-99 [facility] Mean corpuscular hemoglobin (MCH) determinationOrdered By: Phi Matamoros on 01-18-2025 MCH (RBC) [Entitic mass] 28.8 pg 27.0-32.0 [facility] Mean corpuscular hemoglobin concentration (MCHC) determinationOrdered By: Phi Matamoros on 01-18-2025 MCHC (RBC) [Mass/Vol] 31.3 g/dL Low 32-36 [facility] Mean platelet volume determi nationOrdered By: Phi Matamoros on 01-18-2025 Platelet mean volume (Bld) [Entitic vol] 11.3 fL 6.2-12.0 [facility] Monocyte percentageOrdered B y: Phi Matamoros on 01-18-2025 Monocytes/100 WBC (Bld) 11.4 % High 0-10 [facility] Neutrophil percentageOrdered By: Phi Matamoros on 01-18-2025 Neutrophils/100 WBC (Bld) 48.4 % 47-70 [facility] No Panel InformationOrdered By: Phi Matamoros on 01-18-2025 21 U/L <32 [facility] Nucleated red blood cell per centageOrdered By: Phi Matamoros on 01-18-2025 Nucleated RBC/100 WBC (Bld) [Ratio] 0 % 0-5 [facility] Platelet countOrdered By: Solomon on 01-18-2025 Platelets (Bld) [#/Vol] 283 10*3/uL 150-450 [facility] Potassium measurement (mass/ volume)Ordered By: Phi Matamoros on 01-18-2025 Potassium (Unsp spec) [Mass/Vol] 4.1 mmol/L 3.3-5.1 [facility] RBC Auto (Bld) [#/Vol]Ordere d By: Phi Matamoros on 01-18-2025 RBC (Bld) [#/Vol] 3.23 10*6/uL Low 4.2-5.4 [facility] Serum creatinine measurement (mass/volume)Ordered By: Phi Matamoros on 01-18-2025 Creatinine [Mass/Vol] 0.40 mg/dL Low 0.70-1.20 [facility] Serum globulin measurementOr dered By: Phi Matamoros on 01-18-2025 Globulin (S) [Mass/Vol] 2.9 g/dL 2.2-4.2 [facility] Serum glucose measurement (m ass/volume)Ordered By: Phi Matamoros on 01-18-2025 Glucose [Mass/Vol] 124 mg/dL High 70-99 [facility] Serum or plasma alanine phillips otransferase (ALT) measurementOrdered By: Phi Matamoros on 01-18-2025 ALT [Catalytic activity/Vol] 19 U/L <35 [facility] Serum or plasma albumin abhinav urement (mass/volume)Ordered By: Phi Matamoros on 01-18-2025 Albumin [Mass/Vol] 3.1 g/dL Low 3.4-4.8 [facility] Serum or plasma albumin/glob ulin mass ratioOrdered By: Phi Matamoros on 01-18-2025 Albumin/Globulin [Mass ratio] 1.1 {ratio} 0.9-2.4 [facility] Serum or plasma alkaline jose sphatase measurementOrdered By: Phi Matamoros on 01-18-2025 ALP [Catalytic activity/Vol] 80 U/L 35-104 [facility] Serum or plasma calcium abhinav urement (mass/volume)Ordered By: Phi Matamoros on 01-18-2025 Calcium [Mass/Vol] 9.3 mg/dL 7.6-11.0 [facility] Serum or plasma urea nitroge n measurement (mass/volume)Ordered By: Phi Matamoros on 01-18-2025 Urea nitrogen [Mass/Vol] 17 mg/dL 4-19 [facility] Sodium levelOrdered By: Phi Matamoros on 01-18-2025 Sodium [Moles/Vol] 137 mmol/L 133-145 [facility] Total proteinOrdered By: Radha Matamoros on 01-18-2025 Protein [Mass/Vol] 6.0 g/dL 5.9-8.4 [facility] White blood cell (WBC) count Ordered By: Phi Matamoros on 01-18-2025 WBC (Bld) [#/Vol] 7.4 10*3/uL 4.4-11.0 [facility] 36on 01-12-2025 36 Hospice is appropria te for this patient. Will await their decision. If she will take PO, can try omnicef 300mg PO BID until her stop date. I would not recommend further PICC line placement. No need for follow up appointment. Normal [facility] 36on 01-11-2025 36 Normal [facility] Absolute lymphocyte countOrd ered By: Phi Matamoros on 01-11-2025 Lymphocytes Auto (Unsp spec) [#/Vol] 2.27 10*3/uL 0.83-4.51 [facility] Absolute neutrophil countOrd ered By: Phi Matamoros on 01-11-2025 Neutrophils (Bld) [#/Vol] 2.2 10*3/uL 2.0-7.7 [facility] Anion gap in Serum or Plasma Ordered By: Phi Matamoros on 01-11-2025 Anion gap [Moles/Vol] 9 mmol/L 5-15 [facility] Automated lymphocyte count a s percentage of total leukocytesOrdered By: Phi Matamoros on 01-11-2025 Lymphocytes/100 WBC Auto (Unsp spec) 42.8 % High 19-41 [facility] BUN/creatinine ratioOrdered By: Phi Matamoros on 01-11-2025 Urea nitrogen/Creatinine [Mass ratio] 47.3 mg/mg High 10-20 [facility] Basophil percentageOrdered B y: Phi Matamoros on 01-11-2025 Basophils/100 WBC (Bld) 1.1 % High 0-1 [facility] Bilirubin, totalOrdered By: Phi Matamoros on 01-11-2025 Bilirubin [Mass/Vol] 0.18 mg/dL 0.00-1.30 [facility] CBC W/Diff, Automatedon 12-29-2024 Absolute Lymph 2.27 X10 3/uL Normal 0.83-4.51 [facility] Comment on above: Order Comment: 300-1 Performed By: #### L 101.9900, L500.4050, L100.0100 ####[facility] [address] [place], [address] Absolute Neut 2.2 X10 3/uL Normal 2.0-7.7 [facility] Comment on above: Order Comment: 300-1 Performed By: #### L 101.9900, L500.4050, L100.0100 ####[facility] [address] [place], [address] Basophils/100 WBC (Bld) 1.1 % High 0-1 [facility] Comment on above: Order Comment: 300-1 Performed By: #### L 101.9900, L500.4050, L100.0100 ####[facility] [address] [place], [address] Eosinophils/100 WBC (Bld) 2.6 % Normal 0-5 [facility] Comment on above: Order Comment: 300-1 Performed By: #### L 101.9900, L500.4050, L100.0100 ####[facility] [address] [place], [address] Erythrocyte distribution width (RBC) [Ratio] 15.7 % High 11.6-14.6 [facility] Comment on above: Order Comment: 300-1 Performed By: #### L 101.9900, L500.4050, L100.0100 ####[facility] [address] [place], [address] Hematocrit (Bld) [Volume fraction] 29.7 % Low 37-47 [facility] Comment on above: Order Comment: 300-1 Performed By: #### L 101.9900, L500.4050, L100.0100 ####[facility] [address] [place], [address] Hemoglobin (Bld) [Mass/Vol] 9.1 g/dL Low 12.0-15. 0 [facility] Comment on above: Order Comment: 300-1 Performed By: #### L 101.9900, L500.4050, L100.0100 ####[facility] [address] [place], [address] IG% 0.400 Normal 0.0-0.9 [facility] Comment on above: Order Comment: 300-1 Result Comment: IG% - Immature Granulocytes (promyelocytes, myelocytes andmetamyelocytes) > 1% indicates that a LEFT SHIFT is Present. Performed By: #### L 101.9900, L500.4050, L100.0100 ####[facility] [address] [place], [address] Lymphocytes/100 WBC (Bld) 42.8 % High 19-41 [facility] Comment on above: Order Comment: 300-1 Performed By: #### L 101.9900, L500.4050, L100.0100 ####[facility] [address] [place], [address] MCH (RBC) [Entitic mass] 28.5 pg Normal 27.0-32.0 [facility] Comment on above: Order Comment: 300-1 Performed By: #### L 101.9900, L500.4050, L100.0100 ####[facility] [address] [place], [address] MCHC (RBC) [Mass/Vol] 30.6 g/dL Low 32-36 [facility] Comment on above: Order Comment: 300-1 Performed By: #### L 101.9900, L500.4050, L100.0100 ####[facility] [address] [place], [address] MCV (RBC) [Entitic vol] 93.1 fL Normal 81-99 [facility] Comment on above: Order Comment: 300-1 Performed By: #### L 101.9900, L500.4050, L100.0100 ####[facility] [address] [place], [address] Monocytes/100 WBC (Bld) 10.9 % High 0-10 [facility] Comment on above: Order Comment: 300-1 Performed By: #### L 101.9900, L500.4050, L100.0100 ####[facility] [address] [place], [address] Neutrophils/100 WBC (Bld) 42.2 % Low 47-70 [facility] Comment on above: Order Comment: 300-1 Performed By: #### L 101.9900, L500.4050, L100.0100 ####[facility] [address] [place], [address] Nucleated RBC (Bld) [#/Vol] 0 10*3/uL Normal 0-5 [facility] Comment on above: Order Comment: 300-1 Performed By: #### L 101.9900, L500.4050, L100.0100 ####[facility] [address] [place], [address] Platelet mean volume (Bld) [Entitic vol] 11.0 fL Normal 6.2-12.0 [facility] Comment on above: Order Comment: 300-1 Performed By: #### L 101.9900, L500.4050, L100.0100 ####[facility] [address] [place], [address] Platelets (Bld) [#/Vol] 368 10*3/uL Normal 150-450 [facility] Comment on above: Order Comment: 300-1 Performed By: #### L 101.9900, L500.4050, L100.0100 ####[facility] [address] [place], [address] RBC (Bld) [#/Vol] 3.19 10*6/uL Low 4.2-5.4 [facility] Comment on above: Order Comment: 300-1 Performed By: #### L 101.9900, L500.4050, L100.0100 ####[facility] [address] [place], [address] RDW SD 53.5 fl High 35.1-43.9 [facility] Comment on above: Order Comment: 300-1 Performed By: #### L 101.9900, L500.4050, L100.0100 ####[facility] [address] [place], [address] WBC (Bld) [#/Vol] 5.3 10*3/uL Normal 4.4-11.0 [facility] Comment on above: Order Comment: 300-1 Performed By: #### L 101.9900, L500.4050, L100.0100 ####[facility] [address] [place], [address] Carbon dioxide, total [Moles /volume] in Central venous bloodOrdered By: Phi Matamoros on 01-11-2025 CO2 [Moles/Vol] 24.5 mmol/L 21.0-32.0 [facility] Chloride assayOrdered By: Solomon on 01-11-2025 Chloride [Moles/Vol] 105 mmol/L 98-108 [facility] Comprehensive Metabolic Prof ilon 01-11-2025 Albumin [Mass/Vol] 2.9 g/dL Low 3.4-4.8 [facility] Comment on above: Order Comment: 300-1 Performed By: #### L 101.9900, L500.4050, L100.0100 ####[facility] [address] [place], [address] Albumin/Globulin [Mass ratio] 1.0 {ratio} Normal 0.9-2.4 [facility] Comment on above: Order Comment: 300-1 Performed By: #### L 101.9900, L500.4050, L100.0100 ####[facility] [address] [place], [address] ALK PHOS 71 U/L Normal 35-104 [facility] Comment on above: Order Comment: 300-1 Performed By: #### L 101.9900, L500.4050, L100.0100 ####[facility] [address] [place], [address] ALT [Catalytic activity/Vol] 13 U/L Normal <=34 [facility] Comment on above: Order Comment: 300-1 Performed By: #### L 101.9900, L500.4050, L100.0100 ####[facility] [address] [place], [address] AST [Catalytic activity/Vol] 16 U/L Normal <=31 [facility] Comment on above: Order Comment: 300-1 Performed By: #### L 101.9900, L500.4050, L100.0100 ####[facility] [address] [place], [address] Bilirubin [Mass/Vol] 0.18 mg/dL Normal 0.00-1.30 [facility] Comment on above: Order Comment: 300-1 Performed By: #### L 101.9900, L500.4050, L100.0100 ####[facility] [address] [place], [address] BUN/CRE 47.3 RATIO High 10-20 [facility] Comment on above: Order Comment: 300-1 Performed By: #### L 101.9900, L500.4050, L100.0100 ####[facility] [address] [place], [address] Calcium [Mass/Vol] 8.9 mg/dL Normal 7.6-11.0 [facility] Comment on above: Order Comment: 300-1 Performed By: #### L 101.9900, L500.4050, L100.0100 ####[facility] [address] [place], [address] Chloride [Moles/Vol] 105 mmol/L Normal 98-108 [facility] Comment on above: Order Comment: 300-1 Performed By: #### L 101.9900, L500.4050, L100.0100 ####[facility] [address] [place], [address] CO2 [Moles/Vol] 24.5 mmol/L Normal 21.0-32.0 [facility] Comment on above: Order Comment: 300-1 Performed By: #### L 101.9900, L500.4050, L100.0100 ####[facility] [address] [place], [address] Creatinine [Mass/Vol] 0.31 mg/dL Low 0.70-1.20 [facility] Comment on above: Order Comment: 300-1 Performed By: #### L 101.9900, L500.4050, L100.0100 ####[facility] [address] [place], [address] GAP 9 Normal 5-15 [facility] Comment on above: Order Comment: 300-1 Performed By: #### L 101.9900, L500.4050, L100.0100 ####[facility] [address] [place], [address] GFR/1.73 sq M.predicted among non-blacks MDRD (S/P/Bld) [Vol rate/Area] 108 mL/min/{1.73_m2} Normal >60 [facility] Comment on above: Order Comment: 300-1 Result Comment: mL/m in/1.73m2 CKD-EPI Creatinine Equation (2020) Performed By: #### L 101.9900, L500.4050, L100.0100 ####[facility] [address] [place], [address] Globulin (S) [Mass/Vol] 2.8 g/dL Normal 2.2-4.2 [facility] Comment on above: Order Comment: 300-1 Performed By: #### L 101.9900, L500.4050, L100.0100 ####[facility] [address] [place], [address] Glucose [Mass/Vol] 110 mg/dL High 70-99 [facility] Comment on above: Order Comment: 300-1 Performed By: #### L 101.9900, L500.4050, L100.0100 ####[facility] [address] [place], [address] Potassium [Moles/Vol] 4.3 mmol/L Normal 3.3-5.1 [facility] Comment on above: Order Comment: 300-1 Performed By: #### L 101.9900, L500.4050, L100.0100 ####[facility] [address] [place], [address] Sodium [Moles/Vol] 138 mmol/L Normal 133-145 [facility] Comment on above: Order Comment: 300-1 Performed By: #### L 101.9900, L500.4050, L100.0100 ####[facility] [address] [place], [address] T PROT 5.7 g/dL Low 5.9-8.4 [facility] Comment on above: Order Comment: 300-1 Performed By: #### L 101.9900, L500.4050, L100.0100 ####[facility] [address] [place], [address] Urea nitrogen [Mass/Vol] 15 mg/dL Normal 4-19 [facility] Comment on above: Order Comment: 300-1 Performed By: #### L 101.9900, L500.4050, L100.0100 ####[facility] [address] [place], [address] Eosinophil percentageOrdered By: Phi Matamoros on 01-11-2025 Eosinophils/100 WBC (Bld) 2.6 % 0-5 [facility] Erythrocyte Sed Rateon 01-11 SED RATE 21 mm/hr Normal 0-30 [facility] Comment on above: Order Comment: 300-1 Performed By: #### L 101.9900, L500.4050, L100.0100 ####[facility] [address] [place], [address] Erythrocyte distribution wid th ratioOrdered By: Phi Matamoros on 01-11-2025 Erythrocyte distribution width (RBC) [Ratio] 15.7 % High 11.6-14.6 [facility] Erythrocyte distribution wid th standard deviationOrdered By: Phi Matamoros on 01-11-2025 Erythrocyte distribution width (RBC) [Ratio] 53.5 fl High 35.1-43.9 [facility] Erythrocyte sedimentation ra teOrdered By: Phi Matamoros on 01-11-2025 ESR (Bld) [Velocity] 21 mm/h 0-30 [facility] Glomerular filtration rate ( GFR) estimation/1.73 sq m using serum, plasma, or whole bOrdered By: Phi Matamoros on 01-11-2025 GFR/1.73 sq M.predicted among non-blacks MDRD (S/P/Bld) [Vol rate/Area] 108 mL/min/{1.73_m2} >60 [facility] Comment on above: mL/min/1.73m2 CKD-EP I Creatinine Equation (2020) Hematocrit Auto (Bld) [Volum e fraction]Ordered By: Phi Matamoros on 01-11-2025 Hematocrit (Bld) [Volume fraction] 29.7 % Low 37-47 [facility] Hemoglobin measurementOrdere d By: Phi Matamoros on 01-11-2025 Hemoglobin (Bld) [Mass/Vol] 9.1 g/dL Low 12.0-15. 0 [facility] Immature granulocytes/100 WB C Auto (Bld)Ordered By: Phi Matamoros 01-11-2025 Immature granulocytes/100 WBC (Bld) 0.400 % 0.0-0.9 [facility] Comment on above: IG% - Immature Granu locytes (promyelocytes, myelocytes and metamyelocytes) > 1% indicates that a LEFT SHIFT is Present. Laboratory - Chemistry and C hemistry - challengeOrdered By: Phi Matamoros on 01-11-2025 AST [Catalytic activity/Vol] 16 U/L <32 [facility] MCV (mean corpuscular volume ) determinationOrdered By: Phi Matamoros 01-11-2025 MCV (RBC) [Entitic vol] 93.1 fL 81-99 [facility] Mean corpuscular hemoglobin (MCH) determinationOrdered By: Phi Matamoros on 01-11-2025 MCH (RBC) [Entitic mass] 28.5 pg 27.0-32.0 [facility] Mean corpuscular hemoglobin concentration (MCHC) determinationOrdered By: Phi Matamoros on 01-11-2025 MCHC (RBC) [Mass/Vol] 30.6 g/dL Low 32-36 [facility] Mean platelet volume determi nationOrdered By: Phi Matamoros on 01-11-2025 Platelet mean volume (Bld) [Entitic vol] 11.0 fL 6.2-12.0 [facility] Monocyte percentageOrdered B y: Phi Matamoros on 01-11-2025 Monocytes/100 WBC (Bld) 10.9 % High 0-10 [facility] Neutrophil percentageOrdered By: Phi Matamoros on 01-11-2025 Neutrophils/100 WBC (Bld) 42.2 % Low 47-70 [facility] No Panel InformationOrdered By: Phi Matamoros on 01-11-2025 16 U/L <32 [facility] Nucleated red blood cell per centageOrdered By: Phi Matamoros on 01-11-2025 Nucleated RBC/100 WBC (Bld) [Ratio] 0 % 0-5 [facility] Platelet countOrdered By: Solomon on 01-11-2025 Platelets (Bld) [#/Vol] 368 10*3/uL 150-450 [facility] Potassium measurement (mass/ volume)Ordered By: Phi Matamroos on 01-11-2025 Potassium (Unsp spec) [Mass/Vol] 4.3 mmol/L 3.3-5.1 [facility] RBC Auto (Bld) [#/Vol]Ordere d By: Phi Matamoros on 01-11-2025 RBC (Bld) [#/Vol] 3.19 10*6/uL Low 4.2-5.4 [facility] Serum creatinine measurement (mass/volume)Ordered By: Phi Matamoros on 01-11-2025 Creatinine [Mass/Vol] 0.31 mg/dL Low 0.70-1.20 [facility] Serum globulin measurementOr dered By: Phi Matamoros on 01-11-2025 Globulin (S) [Mass/Vol] 2.8 g/dL 2.2-4.2 [facility] Serum glucose measurement (m ass/volume)Ordered By: Phi Matamoros on 01-11-2025 Glucose [Mass/Vol] 110 mg/dL High 70-99 [facility] Serum or plasma alanine phillips otransferase (ALT) measurementOrdered By: Phi Matamoros on 01-11-2025 ALT [Catalytic activity/Vol] 13 U/L <35 [facility] Serum or plasma albumin abhinav urement (mass/volume)Ordered By: Phi Matamoros on 01-11-2025 Albumin [Mass/Vol] 2.9 g/dL Low 3.4-4.8 [facility] Serum or plasma albumin/glob ulin mass ratioOrdered By: Phi Matamoros on 01-11-2025 Albumin/Globulin [Mass ratio] 1.0 {ratio} 0.9-2.4 [facility] Serum or plasma alkaline jose sphatase measurementOrdered By: Phi Matamoros on 01-11-2025 ALP [Catalytic activity/Vol] 71 U/L 35-104 [facility] Serum or plasma calcium abhinav urement (mass/volume)Ordered By: Phi Matamoros on 01-11-2025 Calcium [Mass/Vol] 8.9 mg/dL 7.6-11.0 [facility] Serum or plasma urea nitroge n measurement (mass/volume)Ordered By: Phi Matamoros on 01-11-2025 Urea nitrogen [Mass/Vol] 15 mg/dL 4-19 [facility] Sodium levelOrdered By: Phi Matamoros on 01-11-2025 Sodium [Moles/Vol] 138 mmol/L 133-145 [facility] Total proteinOrdered By: Radha Matamoros on 01-11-2025 Protein [Mass/Vol] 5.7 g/dL Low 5.9-8.4 [facility] White blood cell (WBC) count Ordered By: Pih Matamoros on 01-11-2025 WBC (Bld) [#/Vol] 5.3 10*3/uL 4.4-11.0 [facility] 36on 01-08-2025 [address] [facility] [address] ABDOMEN PELVIS W CONTRAST on 01-06-2025 CT ABDOMEN PELVIS W CONTRAST Normal [facility] CT Abdomen and Pelvis W cont rast Rick 01-06-2025 Patient Name: CLARITZA BURTON : 1945 Exam Date/Time: 01/06/2025 00:00 Procedure: CT ABDOMEN PELVIS W CONTRAST Ordering Provider: NEGRETE YASMIN Reason For Exam: Abdominal pain, acute, nonlocalized Gender: Female Age: 79 years Exam: CT CHEST ANGIOGRAM W AND/OR WO IV CONTRAST, CT ABDOMEN PELVIS W CONTRAST INDICATION: Abdominal pain. Chest pain. Pulled out PICC line. Osteomyelitis. Pneumonia. Tachycardia. Scan Parameters: Multiple axial 1mm images were obtained of the chest and 3mm images of the abdomen and pelvis. Coronal and sagittal reconstructions were reviewed as well. Dose reduction was employed with automated exposure control. Additional reconstructed MIP images provided with 3-D postprocessing. CONTRAST: 75ml of Isovue 370 IV COMPARISON: Chest one view 01/05/2025; CT guided biopsy 12/16/2024 (L5-S1); CT chest, abdomen, pelvis 12/13/2024 FINDINGS: CHEST: There is no main, lobar, segmental, or subsegmental pulmonary artery embolus. There is no intrathoracic aortic dissection or aneurysm. There are no coronary artery atherosclerotic calcifications. A few atherosclerotic calcifications are present along the aorta. Trace pericardial fluid is present. There is no right heart strain. The heart is not enlarged. The airway is patent. The thyroid gland contour is within normal limits. The esophagus is not well-distended. There is no mediastinal, hilar, or axillary adenopathy. A right-sided PICC line is present with tip at the superior vena cava. Biapical pleural-parenchymal scarring is present. Reticular nodular densities are present within the bilateral lower lobes in the left upper lobe. Small left pleural effusion present. Bibasilar infiltrates and/or atelectasis present. The bone mineralization is decreased. There are advanced degenerative changes of both shoulders. ABDOMEN AND PELVIS: Atherosclerotic calcifications are present along the aorta and branches. Edema is present in the subcutaneous fatty tissues of the left hip and upper thigh. Mild thickening of the skin posterior to the sacrum. The bones are osteopenic. Left femur open reduction internal fixation changes. There is irregularity of the endplates at L5-S1 and this has not significantly changed compared to 12/13/2024 (correlate with CT guided biopsy 12/16/2024). There is grade 1 anterolisthesis L5-S1. Benign endplate Schmorl's nodes are present on multiple levels. Gallstones are present within the gallbladder. The liver, pancreas, spleen, and adrenal glands are within normal limits. The kidneys symmetrically enhance. There is no hydronephrosis. A Puentes catheter is present within the bladder which is decompressed and not well evaluated. There is circumferential wall thickening of the wall of the rectum with intraluminal fluid and air concerning for proctitis. Fecal retention is present. A percutaneous gastrostomy tube is present. The stomach is decompressed. There are multiple loops of decompressed bowel which limits overall evaluation of bowel loops in the lumen. High attenuation is present within the lumen of the transverse colon, descending colon, sigmoid colon, and rectum, correlate for administration of GI contrast.. Fecal retention is present. The appendix is normal. [facility] Jojo Briggs MD - 01/06/2025 [facility] 1945 [id number] Exam Date/Time: 01/06/2025 00:00 Procedure: CT ABDOMEN PELVIS W CONTRAST Ordering Provider: NEGRETE YASMIN Reason For Exam: Abdominal pain, acute, nonlocalized Gender: Female Age: 79 years Exam: CT CHEST ANGIOGRAM W AND/OR WO IV CONTRAST, CT ABDOMEN PELVIS W CONTRAST INDICATION: Abdominal pain. Chest pain. Pulled out PICC line. Osteomyelitis. Pneumonia. Tachycardia. Scan Parameters: Multiple axial 1mm images were obtained of the chest and 3mm images of the abdomen and pelvis. Coronal and sagittal reconstructions were reviewed as well. Dose reduction was employed with automated exposure control. Additional reconstructed MIP images provided with 3-D postprocessing. CONTRAST: 75ml of Isovue 370 IV COMPARISON: Chest one view 01/05/2025; CT guided biopsy 12/16/2024 (L5-S1); CT chest, abdomen, pelvis 12/13/2024 FINDINGS: CHEST: There is no main, lobar, segmental, or subsegmental pulmonary artery embolus. There is no intrathoracic aortic dissection or aneurysm. There are no coronary artery atherosclerotic calcifications. A few atherosclerotic calcifications are present along the aorta. Trace pericardial fluid is present. There is no right heart strain. The heart is not enlarged. The airway is patent. The thyroid gland contour is within normal limits. The esophagus is not well-distended. There is no mediastinal, hilar, or axillary adenopathy. A right-sided PICC line is present with tip at the superior vena cava. Biapical pleural-parenchymal scarring is present. Reticular nodular densities are present within the bilateral lower lobes in the left upper lobe. Small left pleural effusion present. Bibasilar infiltrates and/or atelectasis present. The bone mineralization is decreased. There are advanced degenerative changes of both shoulders. ABDOMEN AND PELVIS: Atherosclerotic calcifications are present along the aorta and branches. Edema is present in the subcutaneous fatty tissues of the left hip and upper thigh. Mild thickening of the skin posterior to the sacrum. The bones are osteopenic. Left femur open reduction internal fixation changes. There is irregularity of the endplates at L5-S1 and this has not significantly changed compared to 12/13/2024 (correlate with CT guided biopsy 12/16/2024). There is grade 1 anterolisthesis L5-S1. Benign endplate Schmorl's nodes are present on multiple levels. Gallstones are present within the gallbladder. The liver, pancreas, spleen, and adrenal glands are within normal limits. The kidneys symmetrically enhance. There is no hydronephrosis. A Puentes catheter is present within the bladder which is decompressed and not well evaluated. There is circumferential wall thickening of the wall of the rectum with intraluminal fluid and air concerning for proctitis. Fecal retention is present. A percutaneous gastrostomy tube is present. The stomach is decompressed. There are multiple loops of decompressed bowel which limits overall evaluation of bowel loops in the lumen. High attenuation is present within the lumen of the transverse colon, descending colon, sigmoid colon, and rectum, correlate for administration of GI contrast.. Fecal retention is present. The appendix is normal. IMPRESSION: CHEST: 1. Bilateral reticular nodular infiltrates. 2. Small left pleural effusion. 3. Lung base atelectasis and/or infiltrates. 4. No pulmonary artery embolus. 5. Trace pericardial effusion. ABDOMEN/PELVIS: 1. No bowel obstruction. Circumferential wall thickening of the rectum with edema in the surrounding fat concerning for proctitis including stercoral proctitis. 2. Fecal retention, consider constipation. Intraluminal high attenuation is present from the transverse colon to the rectum likely reflecting residual GI contrast (alternatively this could represent ingested medication or a GI bleed if this patient has not received GI contrast). 3. Edema is present in the subcutaneous fat of the left thigh and hip. 4. Similar irregularity of the endplates of L5-S1 (correlate with CT guided biopsy 12/16/2024). 5. Additional findings, as above. Report Dictated on Electronically Signed By: Jojo Briggs MD Electronically Signed Date/Time: 01/06/2025 12:[address] [facility] [address] CHEST ANGIOGRAM W AND/OR WO IV CONTRASTon 01-06-2025 CT CHEST ANGIOGRAM W AND/OR WO IV CONTRAST Normal [facility] CTA Chest vessels WO and W c ontrast Rick 01-06-2025 Patient Name: CLARITZA BURTON : 1945 Exam Date/Time: 01/06/2025 00:00 Procedure: CT CHEST ANGIOGRAM W AND/OR WO IV CONTRAST Ordering Provider: JUAN TYLER Reason For Exam: tachy, PE history, eval for pe, pneumonia Gender: Female Age: 79 years Exam: CT CHEST ANGIOGRAM W AND/OR WO IV CONTRAST, CT ABDOMEN PELVIS W CONTRAST INDICATION: Abdominal pain. Chest pain. Pulled out PICC line. Osteomyelitis. Pneumonia. Tachycardia. Scan Parameters: Multiple axial 1mm images were obtained of the chest and 3mm images of the abdomen and pelvis. Coronal and sagittal reconstructions were reviewed as well. Dose reduction was employed with automated exposure control. Additional reconstructed MIP images provided with 3-D postprocessing. CONTRAST: 75ml of Isovue 370 IV COMPARISON: Chest one view 01/05/2025; CT guided biopsy 12/16/2024 (L5-S1); CT chest, abdomen, pelvis 12/13/2024 FINDINGS: CHEST: There is no main, lobar, segmental, or subsegmental pulmonary artery embolus. There is no intrathoracic aortic dissection or aneurysm. There are no coronary artery atherosclerotic calcifications. A few atherosclerotic calcifications are present along the aorta. Trace pericardial fluid is present. There is no right heart strain. The heart is not enlarged. The airway is patent. The thyroid gland contour is within normal limits. The esophagus is not well-distended. There is no mediastinal, hilar, or axillary adenopathy. A right-sided PICC line is present with tip at the superior vena cava. Biapical pleural-parenchymal scarring is present. Reticular nodular densities are present within the bilateral lower lobes in the left upper lobe. Small left pleural effusion present. Bibasilar infiltrates and/or atelectasis present. The bone mineralization is decreased. There are advanced degenerative changes of both shoulders. ABDOMEN AND PELVIS: Atherosclerotic calcifications are present along the aorta and branches. Edema is present in the subcutaneous fatty tissues of the left hip and upper thigh. Mild thickening of the skin posterior to the sacrum. The bones are osteopenic. Left femur open reduction internal fixation changes. There is irregularity of the endplates at L5-S1 and this has not significantly changed compared to 12/13/2024 (correlate with CT guided biopsy 12/16/2024). There is grade 1 anterolisthesis L5-S1. Benign endplate Schmorl's nodes are present on multiple levels. Gallstones are present within the gallbladder. The liver, pancreas, spleen, and adrenal glands are within normal limits. The kidneys symmetrically enhance. There is no hydronephrosis. A Puentes catheter is present within the bladder which is decompressed and not well evaluated. There is circumferential wall thickening of the wall of the rectum with intraluminal fluid and air concerning for proctitis. Fecal retention is present. A percutaneous gastrostomy tube is present. The stomach is decompressed. There are multiple loops of decompressed bowel which limits overall evaluation of bowel loops in the lumen. High attenuation is present within the lumen of the transverse colon, descending colon, sigmoid colon, and rectum, correlate for administration of GI contrast.. Fecal retention is present. The appendix is normal. [facility] Jojo Briggs MD - 01/06/2025 [facility] 1945 [id number] Exam Date/Time: 01/06/2025 00:00 Procedure: CT CHEST ANGIOGRAM W AND/OR WO IV CONTRAST Ordering Provider: JUAN TYLER Reason For Exam: tachy, PE history, eval for pe, pneumonia Gender: Female Age: 79 years Exam: CT CHEST ANGIOGRAM W AND/OR WO IV CONTRAST, CT ABDOMEN PELVIS W CONTRAST INDICATION: Abdominal pain. Chest pain. Pulled out PICC line. Osteomyelitis. Pneumonia. Tachycardia. Scan Parameters: Multiple axial 1mm images were obtained of the chest and 3mm images of the abdomen and pelvis. Coronal and sagittal reconstructions were reviewed as well. Dose reduction was employed with automated exposure control. Additional reconstructed MIP images provided with 3-D postprocessing. CONTRAST: 75ml of Isovue 370 IV COMPARISON: Chest one view 01/05/2025; CT guided biopsy 12/16/2024 (L5-S1); CT chest, abdomen, pelvis 12/13/2024 FINDINGS: CHEST: There is no main, lobar, segmental, or subsegmental pulmonary artery embolus. There is no intrathoracic aortic dissection or aneurysm. There are no coronary artery atherosclerotic calcifications. A few atherosclerotic calcifications are present along the aorta. Trace pericardial fluid is present. There is no right heart strain. The heart is not enlarged. The airway is patent. The thyroid gland contour is within normal limits. The esophagus is not well-distended. There is no mediastinal, hilar, or axillary adenopathy. A right-sided PICC line is present with tip at the superior vena cava. Biapical pleural-parenchymal scarring is present. Reticular nodular densities are present within the bilateral lower lobes in the left upper lobe. Small left pleural effusion present. Bibasilar infiltrates and/or atelectasis present. The bone mineralization is decreased. There are advanced degenerative changes of both shoulders. ABDOMEN AND PELVIS: Atherosclerotic calcifications are present along the aorta and branches. Edema is present in the subcutaneous fatty tissues of the left hip and upper thigh. Mild thickening of the skin posterior to the sacrum. The bones are osteopenic. Left femur open reduction internal fixation changes. There is irregularity of the endplates at L5-S1 and this has not significantly changed compared to 12/13/2024 (correlate with CT guided biopsy 12/16/2024). There is grade 1 anterolisthesis L5-S1. Benign endplate Schmorl's nodes are present on multiple levels. Gallstones are present within the gallbladder. The liver, pancreas, spleen, and adrenal glands are within normal limits. The kidneys symmetrically enhance. There is no hydronephrosis. A Puentes catheter is present within the bladder which is decompressed and not well evaluated. There is circumferential wall thickening of the wall of the rectum with intraluminal fluid and air concerning for proctitis. Fecal retention is present. A percutaneous gastrostomy tube is present. The stomach is decompressed. There are multiple loops of decompressed bowel which limits overall evaluation of bowel loops in the lumen. High attenuation is present within the lumen of the transverse colon, descending colon, sigmoid colon, and rectum, correlate for administration of GI contrast.. Fecal retention is present. The appendix is normal. IMPRESSION: CHEST: 1. Bilateral reticular nodular infiltrates. 2. Small left pleural effusion. 3. Lung base atelectasis and/or infiltrates. 4. No pulmonary artery embolus. 5. Trace pericardial effusion. ABDOMEN/PELVIS: 1. No bowel obstruction. Circumferential wall thickening of the rectum with edema in the surrounding fat concerning for proctitis including stercoral proctitis. 2. Fecal retention, consider constipation. Intraluminal high attenuation is present from the transverse colon to the rectum likely reflecting residual GI contrast (alternatively this could represent ingested medication or a GI bleed if this patient has not received GI contrast). 3. Edema is present in the subcutaneous fat of the left thigh and hip. 4. Similar irregularity of the endplates of L5-S1 (correlate with CT guided biopsy 12/16/2024). 5. Additional findings, as above. Report Dictated on Electronically Signed By: Jojo Briggs MD Electronically Signed Date/Time: 01/06/2025 12:50 AM EDT [facility] ECG 12-LEADon 01-06-2025 ECG 12-LEAD IMPRESSION: Sinus tachycardia Low voltage, extremity leads Electronically Signed On 01-06-2025 07:48:13 EDT by Noni Awan Normal [facility] HIGH SENSITIVITY TROPONIN, Francisca POSADA, SECOND TESTon 01-06-2025 2H TROPONIN HS (SERIAL 2ND TROPONIN) 4 ng/L Normal <=14 [facility] Comment on above: Result Comment: 2h t roponin (2nd troponin) samples collected between 1h 40 min and 2h and 20 min of the baseline collection time can be utilized to interpret delta troponins as per [facility] algorithms. Samples collected outside this timeframe need to be interpreted clinically.Rising or falling troponin delta below 2 ng/L as compared to baseline value suggests thatacute cardiac injury is unlikely. Performed By: #### L [id number] ####Budget Clerk: GRACE MIRELES ([phone])HAYLEY QUINONEZ (SBHLAB)[address] No Panel InformationOrdered By: Noni Awan on 01-06-2025 P [place] 48 degrees [employer] Work Phone: MT Interval 130 ms [employer] Work Phone: [phone] QRS [place] 9 degrees [employer] Phone: [phone] QRSD Interval 77 ms [employer] Phone: [phone] QT Interval 291 ms [employer] Work Phone: [phone] QTC Interval 445 ms [employer] Phone: [phone] T Wave [place] 69 degrees [employer] Phone: [employer] Phone: No Panel Informationon 01-06 Sinus tachycardia Low voltage, extremity leads Electronically Signed On 01-06-2025 07:48:13 EDT by Noni Awan CV Noni Van MD - 01/06/2025 IMPRESSION: Sinus tachycardia Low voltage, extremity leads Electronically Signed On 01-06-2025 07:48:13 EDT by Noni Awan [facility] 2h Troponin HS (Serial 2nd Troponin) 4 ng/L NINF - 14 ng/L [facility] Comment on above: 2h troponin (2nd tro ponin) samples collected between 1h 40 min and 2h and 20 min of the baseline collection time can be utilized to interpret delta troponins as per [facility] algorithms. Samples collected outside this timeframe need to be interpreted clinically. Rising or falling troponin delta below 2 ng/L as compared to baseline value suggests that acute cardiac injury is unlikely. Interpretation and review of laboratory results Normal [facility] CHEST: 1. Bilateral reticular nodular infiltrates. 2. Small left pleural effusion. 3. Lung base atelectasis and/or infiltrates. 4. No pulmonary artery embolus. 5. Trace pericardial effusion. ABDOMEN/PELVIS: 1. No bowel obstruction. Circumferential wall thickening of the rectum with edema in the surrounding fat concerning for proctitis including stercoral proctitis. 2. Fecal retention, consider constipation. Intraluminal high attenuation is present from the transverse colon to the rectum likely reflecting residual GI contrast (alternatively this could represent ingested medication or a GI bleed if this patient has not received GI contrast). 3. Edema is present in the subcutaneous fat of the left thigh and hip. 4. Similar irregularity of the endplates of L5-S1 (correlate with CT guided biopsy 12/16/2024). 5. Additional findings, as above. Report Dictated on Electronically Signed By: Jojo Briggs MD Electronically Signed Date/Time: 01/06/2025 12:50 AM [facility] No Panel InformationOrdered By: Jojo Briggs on 01-06-2025 [facility] Phone: Vital signsOrdered By: Sandip Awan on 01-06-2025 Heart rate 141 /min bpm [facility] [employer] Phone: BASIC METABOLIC PANELon 04-0 Anion gap [Moles/Vol] 10 mmol/L Normal 3-13 [facility] Comment on above: Performed By: #### L [id number] ####Budget Clerk: GRACE MIRELES ([phone])[facility] ([facility])[address] Calcium [Mass/Vol] 8.8 mg/dL Normal 8.8-10.0 [facility] Comment on above: Performed By: #### L [id number] ####Budget Clerk: GRACE MIRELES ([phone])[facility] (SBHLAB)[address] [place] [address] [place] Chloride [Moles/Vol] 103 mmol/L Normal 98-107 [facility] Comment on above: Performed By: #### L [id number] ####Budget Clerk: GRACE MIRELES ([id number])[facility] (SBHLAB)[address] CO2 [Moles/Vol] 25 mmol/L Normal 23-31 [facility] Comment on above: Performed By: #### L [id number] ####Budget Clerk: GRACE MIRELES ([id number])[facility] (SBHLAB)[address] Creatinine [Mass/Vol] 0.46 mg/dL Low 0.57-1.11 [facility] Comment on above: Performed By: #### L [id number] ####Budget Clerk: GRACE MIRELES ([id number])[facility]ITAL[facility] HYMANMarcella (SBHLAB)[address] GLOMERULAR FILTRATION RATE ML/MIN/1.73 SQ M.PREDICTED >90.0 Normal >60.0 [facility] Comment on above: Result Comment: Calc ulation based on the Chronic Kidney Disease Epidemiology Collaboration (CKD-EPI) equation refit without adjustment for race Performed By: #### L [id number] ####Budget Clerk: GRACE MIRELES ([id number])[facility]ITAL[facility] (SBHLAB)[address] Glucose [Mass/Vol] 109 mg/dL Normal 82-115 [facility] Comment on above: Performed By: #### L AB15 ####Budget Clerk: GRACE MIRELES ([id number])[facility] (HLAB)[address] Potassium [Moles/Vol] 4.5 mmol/L Normal 3.5-5.1 [facility] Comment on above: Result Comment: [facility] potassium values may be up to 0.5 mmol/L lower than serum values. Performed By: #### L AB15 ####Budget Clerk: GRACE MIRELES ([phone])[facility]ITAL[facility] (SBHLAB)[address] [place] [address] [place] Sodium [Moles/Vol] 138 mmol/L Normal 136-145 [facility] Comment on above: Performed By: #### L AB15 ####Budget Clerk: GRACE MIRELES ([id number])[facility] (SBHLAB)[address] Urea nitrogen [Mass/Vol] 22 mg/dL Normal 9-23 [facility] Comment on above: Performed By: #### L AB15 ####Budget Clerk: GRACE MIRELES ([id number])[facility]ITALEs[facility] [place] (SBHLAB)[address] [place] [address] BLOOD CULTUREon 01-05-2025 Bacteria identified Cx Nom (Bld) Normal [facility] Comment on above: Performed By: #### L [id number] ####Budget Clerk: CAROLE CID ([id number])[facility] ([facility])[address] [place] [address] Bacteria identified Cx Nom (Bld) Normal [facility] Comment on above: Performed By: #### L [id number] ####Budget Clerk: CAROLE CID ([id number])[facility] ([facility])[address] [place] [address] BLOOD GAS, VENOUSon 01-06-20 25 AMOUNT OF OXYGEN Normal [facility] Comment on above: Result Comment: ANDRADE Rosario COMMENTS:Assessment of oxygenation is best done with an arterial blood gas determination. Reference ranges for pO2, bicarbonate, and base excess are for mixed venous blood. Specimens drawn from a peripheral vein will often have higher values. Performed By: #### L AB79 ####Budget Clerk: GRACE MIRELES ([phone])[facility]ITAL[facility] [place] (SBHLAB)[address] [place] [address] Base excess Calc (BldV) [Moles/Vol] -1.7000 mmol/L Normal -3.0-3.0 [facility] Comment on above: Performed By: #### L AB79 ####Budget Clerk: GRACE MIRELES ([phone])[facility]ITAL[facility] [place] (SBHLAB)[address] [place] [address] CO2 [Moles/Vol] 24.0 mmol/L Normal 23.0-30.0 [facility] Comment on above: Performed By: #### L AB79 ####Budget Clerk: GRACE MIRELES ([phone])[facility] (SBHLAB)[address] [place] [address] HCO3 (Bld) [Moles/Vol] 22.9 mmol/L Normal 21.0-30.0 [facility] Comment on above: Performed By: #### L AB79 ####Budget Clerk: GRACE MIRELES ([id number])[facility]ITALA [place] (SBHLAB)[address] Hemoglobin (Bld) [Mass/Vol] 10.1 g/dL Low Screen only [facility] Comment on above: Performed By: #### L [id number] ####Budget Clerk: GRACE MIRELES ([id number])[facility] [place] (SBHLAB)[address] OXYGEN (MM HG) IN VENOUS BLOOD 41.2 mm Hg Normal [facility] Comment on above: Performed By: #### L AB79 ####Budget Clerk: GRACE MIRELES ([id number])[facility]ITALA [email or web address]N (SBHLAB)[address] OXYGEN SATURATION (%) IN VENOUS BLOOD 72.8 % Normal [facility] Comment on above: Performed By: #### L AB79 ####Budget Clerk: GRACE MIRELES ([id number])[facility]ITALA [email or web address]]N (SBHLAB)[address] PCO2, [place] 38.0 mm Hg Normal 35.0-53.0 [facility] Comment on above: Performed By: #### L AB79 ####Budget Clerk: GRACE MIRELES ([id number])[facility] [place] (SBHLAB)[address] PH VENOUS 7.397 Normal 7.320-7.42 0 [facility] Comment on above: Performed By: #### L AB79 ####Budget Clerk: GRACE MIRELES ([id number])[facility] [place] (SBHLAB)[address] SOURCE OF OXYGEN Nasal Cannula (LPM) Normal [facility] Comment on above: Performed By: #### L AB79 ####Budget Clerk: GRACE MIRELES ([phone])[facility] [place] (SBHLAB)[address] [place] [id number] [facility] Basic metabolic 1998 panelon 01-05-2025 Anion gap [Moles/Vol] 10 mmol/L 3 - 13 mmol/L [facility] Calcium [Mass/Vol] 8.8 mg/dL 8.8 - 10. 0 mg/dL [facility] Chloride [Moles/Vol] 103 mmol/L 98 - 10 7 mmol/L [facility] CO2 [Moles/Vol] 25 mmol/L 23 - 31 mmol/L [facility] Creatinine [Mass/Vol] 0.46 mg/dL Low 0.57 - 1.11 mg/dL [facility] GFR/1.73 sq M.predicted (S/P/Bld) [Vol rate/Area] - PINF [facility] Comment on above: Calculation based on the Chronic Kidney Disease Epidemiology Collaboration (CKD-EPI) equation refit without adjustment for race Glucose [Mass/Vol] 109 mg/dL 82 - 115 mg/dL [facility] Interpretation and review of laboratory results Abnormal [facility] Potassium [Moles/Vol] 4.5 mmol/L 3.5 - 5.1 mmol/L [facility] Comment on above: Plasma potassium leena ues may be up to 0.5 mmol/L lower than serum values. Sodium [Moles/Vol] 138 mmol/L 136 - 145 mmol/L [facility] Urea nitrogen [Mass/Vol] 22 mg/dL 9 - 23 mg/dL [facility] CBC W Auto Differential pane l (Bld)on 01-05-2025 Basophils (Bld) [#/Vol] 0.1 10*3/uL 0.0 - 0.2 10*3/uL [facility] Basophils/100 WBC (Bld) 0.5 % 0.0 - 2.0 % [facility] Eosinophils (Bld) [#/Vol] 0.1 10*3/uL 0. 0 - 0.5 10*3/uL [facility] Eosinophils/100 WBC (Bld) 0.7 % 0. 0 - 6.0 % [facility] Erythrocyte distribution width (RBC) [Ratio] 15.6 % High 11.5 - 15.0 % [facility] Hematocrit (Bld) [Volume fraction] 32.6 % Low 35.0 - 47.0 % [facility] Hemoglobin (Bld) [Mass/Vol] 10.2 g/dL Low 11.7 - 16.0 g/dL [facility] Immature granulocytes (Bld) [#/Vol] 0.1 10*3/uL High NINF - 0.1 10*3/uL [facility] Immature granulocytes/100 WBC (Bld) 1 % 0.0 - 2.0 % [facility] Interpretation and review of laboratory results Abnormal [facility] Lymphocytes (Bld) [#/Vol] 2.6 10*3/uL 1. 0 - 4.3 10*3/uL [facility] Lymphocytes/100 WBC (Bld) 25.4 % 15 .0 - 45.0 % [facility] MCH (RBC) [Entitic mass] 28.7 pg 26. 0 - 34.0 pg [facility] MCHC (RBC) [Mass/Vol] 31.3 % 30.5 - 36.0 % [facility] MCV (RBC) [Entitic vol] 91.8 fL 77.0 - 99.0 fL [facility] Monocytes (Bld) [#/Vol] 1 10*3/uL High 0.0 - 0.9 10*3/uL [facility] Monocytes/100 WBC (Bld) 9.2 % 5.0 - 13.0 % [facility] Neutrophils (Bld) [#/Vol] 6.6 10*3/uL 1. 8 - 7.5 10*3/uL [facility] Neutrophils/100 WBC (Bld) 63.2 % 38 .0 - 82.0 % [facility] Nucleated RBC/100 WBC (Bld) [Ratio] 0 % [facility] Platelet mean volume (Bld) [Entitic vol] 10.1 fL 9.0 - 12.7 fL [facility] Platelets (Bld) [#/Vol] 476 10*3/uL High 140 - 440 10*3/uL [facility] RBC (Bld) [#/Vol] 3.55 10*6/uL Low 3.80 - 5.20 10*6/uL [facility] WBC (Bld) [#/Vol] 10.4 10*3/uL 3.6 - 10.7 10*3/uL [facility] CBC WITH AUTO DIFFERENTIALon 01-05-2025 Basophils (Bld) [#/Vol] 0.1 10*3/uL Normal 0.0-0.2 [facility] Comment on above: Performed By: #### L [id number] ####Budget Clerk: GRACE ACEVESMARYAN ([phone])[facility] [place] (SBHLAB)[address] Basophils/100 WBC (Bld) 0.5 % Normal 0.0-2.0 [facility] Comment on above: Performed By: #### L [id number] ####Budget Clerk: GRACE ACEVESMARYAN ([id number])[facility] [place] (SBHLAB)[address] Eosinophils (Bld) [#/Vol] 0.1 10*3/uL Normal 0.0-0.5 [facility] Comment on above: Performed By: #### L [id number] ####Budget Clerk: GRACE CONTEAMY ([id number])[facility] [place] (SBHLAB)[address] Eosinophils/100 WBC (Bld) 0.7 % Normal 0.0-6.0 [facility] Comment on above: Performed By: #### L [id number] ####Budget Clerk: GRACE CONTEMAREKMARYAN ([id number])[facility] [place] (SBHLAB)[address] Erythrocyte distribution width (RBC) [Ratio] 15.6 % High 11.5-15.0 [facility] Comment on above: Performed By: #### L [id number] ####Budget Clerk: GRACE ACEVESMARYAN ([id number])[facility] [place] (SBHLAB)[address] Hematocrit (Bld) [Volume fraction] 32.6 % Low 35.0-47.0 [facility] Comment on above: Performed By: #### L [id number] ####Budget Clerk: GRACE MIRELES ([id number])[facility] [place] (SBHLAB)[address] Hemoglobin (Bld) [Mass/Vol] 10.2 g/dL Low 11.7-16. 0 [facility] Comment on above: Performed By: #### L [id number] ####Budget Clerk: GRACE MIRELES ([id number])[facility] [place] (SBHLAB)[address] IMMATURE GRANS % 1.0 % Normal 0.0-2.0 [facility] Comment on above: Performed By: #### L [id number] ####Budget Clerk: GRACE MIRELES ([id number])[facility] [place] (SBHLAB)[address] IMMATURE GRANS ABSOLUTE 0.1 10*3/uL High <0.1 [facility] Comment on above: Performed By: #### L [id number] ####Budget Clerk: GRACE MIRELES ([id number])[email or web address]]N (SBHLAB)[address] Lymphocytes (Bld) [#/Vol] 2.6 10*3/uL Normal 1.0-4.3 [facility] Comment on above: Performed By: #### L [id number] ####Budget Clerk: GRACE MIRELES ([id number])[email or web address]]N (SBHLAB)[address] Lymphocytes/100 WBC (Bld) 25.4 % Normal 15.0-45.0 [facility] Comment on above: Performed By: #### L [id number] ####Budget Clerk: GRACE MIRELES ([id number])[facility] [place] (SBHLAB)[address] MCH (RBC) [Entitic mass] 28.7 pg Normal 26.0-34.0 [facility] Comment on above: Performed By: #### L [id number] ####Budget Clerk: GRACE MIRELES ([id number])[email or web address]]N (SBHLAB)[address] MCHC 31.3 % Normal 30.5-36.0 [facility] Comment on above: Performed By: #### L [id number] ####Budget Clerk: GRACE MIRELES ([id number])[facility] [place] (SBHLAB)[address] MCV (RBC) [Entitic vol] 91.8 fL Normal 77.0-99.0 [facility] Comment on above: Performed By: #### L [id number] ####Budget Clerk: GRACE MIRELES ([id number])[facility] [place] (SBHLAB)[address] Monocytes (Bld) [#/Vol] 1.0 10*3/uL High 0.0-0.9 [facility] Comment on above: Performed By: #### L [id number] ####Budget Clerk: GRACE ACEVESMARYAN ([id number])[facility] [place] (SBHLAB)[address] Monocytes/100 WBC (Bld) 9.2 % Normal 5.0-13.0 [facility] Comment on above: Performed By: #### L [id number] ####Budget Clerk: GRACE MIRELES ([id number])[facility] [place] (SBHLAB)[address] NEUTROPHILS ABSOLUTE 6.6 10*3/uL Normal 1.8-7.5 [facility] Comment on above: Performed By: #### L [id number] ####Budget Clerk: GRACE MIRELES ([id number])[facility] [place] (SBHLAB)[address] Neutrophils/100 WBC (Bld) 63.2 % Normal 38.0-82.0 [facility] Comment on above: Performed By: #### L [id number] ####Budget Clerk: GRACE ACEVESMARYAN ([id number])[facility] [place] (SBHLAB)[address] NRBC 0.0 /100 WBCs Normal 0.0-2.0 [facility] Comment on above: Performed By: #### L [id number] ####Budget Clerk: GRACE MIRELES ([id number])[facility] (SBHLAB)[address] [place] [address] Platelet mean volume (Bld) [Entitic vol] 10.1 fL Normal 9.0-12.7 [facility] Comment on above: Performed By: #### L [id number] ####Budget Clerk: GRACE MIRELES ([id number])[facility] [place] (SBHLAB)[address] Platelets (Bld) [#/Vol] 476 10*3/uL High 140-440 [facility] Comment on above: Performed By: #### L [id number] ####Budget Clerk: GRACE MIRELES ([id number])[facility] [place] (SBHLAB)[address] [place] [address] RBC (Bld) [#/Vol] 3.55 10*6/uL Low 3.80-5.20 [facility] Comment on above: Performed By: #### L [id number] ####Budget Clerk: GRACE MIRELES ([phone])[facility] [place] (SBHLAB)[address] [place] [address] WBC (Bld) [#/Vol] 10.4 10*3/uL Normal 3.6-10.7 [facility] Comment on above: Performed By: #### L [id number] ####Budget Clerk: GRACE MIRELES ([id number])[facility] [place] (SBHLAB)[address] [place] [address] COMPLETE URINALYSISon 2024 BACTERIA (#/HPF) IN URINE Few Abnormal Negative [facility] Comment on above: Performed By: #### L [id number] ####Budget Clerk: GRACE MIRELES ([id number])[facility] [place] (SBHLAB)[address] [place] [address]#### [id number] ####Budget Clerk: CAROLE CID ([id number])[facility] ([facility])[address] [place] [address] BILIRUBIN, TOTAL PRESENCE IN URINE Negative Normal Negative [facility] Comment on above: Performed By: #### L [id number] ####Budget Clerk: GRACE MIRELES ([id number])[facility] ([facility])[address] [place] [address]#### [id number] ####Budget Clerk: CAROLE CID ([id number])[facility] ([facility])[address] [place] [address] Clarity (U) Turbid Abnormal Clear [facility] Comment on above: Performed By: #### L [id number] ####Budget Clerk: GRACE MIRELES ([id number])[facility] ([facility])[address] [place] [address]#### [id number] ####Budget Clerk: CAROLE CID ([id number])[facility] ([facility])[address] [place] [address] Color (U) Yellow Normal Lt. Yellow [facility] Comment on above: Performed By: #### L [id number] ####Budget Clerk: GRACE MIRELES ([id number])[facility] ([facility])[address] [place] [address]#### [id number] ####Budget Clerk: CAROLE CID ([id number])[facility] ([facility])[address] [place] [address] GLUCOSE (MG/DL) IN URINE Normal Normal Nor mal (<70) [facility] Comment on above: Performed By: #### L [id number] ####Budget Clerk: GRACE MIRELES ([phone])[facility] ([facility])[address] [place] [address]#### [id number] ####Budget Clerk: CAROLE CID ([id number])[facility] ([facility])[address] [place] [address] HEMOGLOBIN PRESENCE IN URINE 0.2 mg/dL Abnormal Negative [facility] Comment on above: Performed By: #### L [id number] ####Budget Clerk: GRACE MIRELES ([id number])[facility] (HLAB)[address] [place] [address]#### [id number] ####Budget Clerk: CAROLE CID ([id number])[facility] ([facility])[address] [place] [address] HYALINE CASTS (#/LPF) IN URINE SEDIMENT BY MICROSCOPY 0-2 Abnormal Negative [facility] Comment on above: Performed By: #### L [id number] ####Budget Clerk: GRACE MIRELES ([id number])[facility] ([facility])[address] [place] [address]#### [id number] ####Budget Clerk: CAROLE CID ([id number])[facility] ([facility])[address] [place] [address] Ketones Ql (U) Negative Normal Negative [facility] Comment on above: Performed By: #### L [id number] ####Budget Clerk: GRACE MIRELES ([id number])[facility] ([facility])[address] [place] [address]#### [id number] ####Budget Clerk: CAROLE CID ([id number])[facility] ([facility])[address] [place] [address] LEUKOCYTE ESTERASE PRESENCE IN URINE BY TEST STRIP 500 Rafat/uL Abnormal Negative [facility] Comment on above: Performed By: #### L [id number] ####Budget Clerk: GRACE MIRELES ([id number])[facility] ([facility])[address] [place] [address] [place]#### [id number] ####Budget Clerk: CAROLE CID ([id number])[facility] ([facility])[address] [place] [address] MUCUS (#/LPF) IN URINE SEDIMENT Few Normal Negative [facility] Comment on above: Performed By: #### L [id number] ####Budget Clerk: GRACE MIRELES ([id number])[facility] [place] (SBHLAB)[address]#### [id number] ####Budget Clerk: CAROLE CID ([id number])[facility] ([facility])[address] [place] [address] NITRITE PRESENCE IN URINE Negative Normal Negative [facility] Comment on above: Performed By: #### L [id number] ####Budget Clerk: GRACE MIRELES ([id number])[facility] [place] (SBHLAB)[address]#### [id number] ####Budget Clerk: CAROLE CID ([id number])[facility] ([facility])[address] [place] [address] pH (U) 6.5 [pH] Normal 5.0-8.0 [facility] Comment on above: Performed By: #### L [id number] ####Budget Clerk: GRACE MIRELES ([id number])[facility] [place] (SBHLAB)[address]#### [id number] ####Budget Clerk: CAROLE CID ([id number])[facility] ([facility])[address] [place] [address] Protein (U) [Mass/Vol] 30 mg/dL Abnormal Negative [facility] Comment on above: Performed By: #### L [id number] ####Budget Clerk: GRACE MIRELES ([id number])[facility] [place] (SBHLAB)[address] [place] [address] [place]#### [id number] ####Budget Clerk: CAROLE CID ([id number])[facility] ([facility])[address] [place] [address] RBC (#/HPF) IN URINE SEDIMENT 11-25 Abnormal 0-2 [facility] Comment on above: Performed By: #### L [id number] ####Budget Clerk: GRACE MIRELES ([id number])[facility]ITAL[facility] QUINONEZ (SBHLAB)[address]#### [id number] ####Budget Clerk: CAROLE CID ([id number])[facility] ([facility])[address] [place] [address] Specific gravity (U) [Rel density] 1.019 Normal 1.005-1.03 0 [facility] Comment on above: Performed By: #### L [id number] ####Budget Clerk: GRACE MIRELES ([id number])[facility]ITAL[facility] (SBHLAB)[address]#### [id number] ####Budget Clerk: CAROLE CID ([id number])[facility] INSTITUTELAB)[address] [place] [address] SQUAMOUS EPITHELIAL CELLS (#/HPF) IN URINE SEDIMENT 0-2 Normal 3-5 [facility] Comment on above: Performed By: #### L [id number] ####Budget Clerk: GRACE MIRELES ([phone])[facility] (SBHLAB)[address] [place] [address] [place]#### [id number] ####Budget Clerk: CAROLE CID ([phone])[facility] (SACLAB)[address] [place] [address] URIC ACID (URATE) CRYSTALS (#/HPF) IN URINE Moderate Abnormal Negative [facility] Comment on above: Performed By: #### L [id number] ####Budget Clerk: GRACE MIRELES ([phone])[facility]ITAL[email or web address]]N (SBHLAB)[address] [place] [address] [place]#### [id number] ####Budget Clerk: CAROLE CID ([id number])[facility] ([facility] INSTIT[facility]EL[facility])[address] [place] [address] UROBILINOGEN (MG/DL) IN URINE Normal Normal Normal (0-1) [facility] Comment on above: Performed By: #### L [id number] ####Budget Clerk: GRACE MIRELES ([phone])[facility] [place] (SBHLAB)[address] [place] [address] [place]#### [id number] ####Budget Clerk: CAROLE CID ([id number])[facility] (SACLAB)[address] [place] [address] WBC (LEUKOCYTE) (#/HPF) IN URINE SEDIMENT >100 Abnormal 0-5 [facility] Comment on above: Performed By: #### L [id number] ####Budget Clerk: GRACE MIRELES ([phone])[facility] [place] (SBHLAB)[address]#### [id number] ####Budget Clerk: CAROLE CID ([id number])[facility] (SACLAB)[address] [place] [address] WBC (LEUKOCYTE) CLUMPS (#/HPF) IN URINE SEDIMENT Few Abnormal Negative [facility] Comment on above: Performed By: #### L [id number] ####Budget Clerk: GRACE MIRELES ([phone])[facility] [place] (SBHLAB)[address]#### [id number] ####Budget Clerk: CAROLE CID ([id number])[facility] (SACLAB)[address] [place] [address] YEAST (#/HPF) IN URINE Many Abnormal Negative [facility] Comment on above: Performed By: #### L [id number] ####Budget Clerk: GRACE MIRELES ([phone])[facility] [[email or web address]]N (SBHLAB)[address] [place] [address] [place]#### [id number] ####Budget Clerk: CAROLE CID ([phone])[facility] ([facility] INSTIT[facility])[address] [place] [address] ED Nursing Noteon 01-05-2025 ED Nursing Note Pt heart rate continues to be elevated in the 140s despite 1L NS bolus. Notified provider. Normal [facility] ED Nursing Note ELDER Blackwell from SNF called for update on pt. This RN gave report and advised will call back when disposition available. Normal [facility] ED Nursing Note This RN notified providers of patients HR being elevated in 140's. Per primary nurse patients HR has been elevated in this range. Provider came to bedside. Per provider will order an EKG and administer a normal saline bolus. Primary nurse made aware. Normal [facility] ED Nursing Note Normal [facility] ED Provider Noteon ED Provider Note Normal [facility] Ferritinon 01-05-2025 Ferritin [Mass/Vol] 616 ng/mL High 22-378 [facility] Comment on above: Order Comment: 300.1 Performed By: #### L 503.6030, L503.0106, L506.0200, L503.6550 ####[facility] [address] [place], [place], [address] Folate [Moles/volume] in Ser um or PlasmaOrdered By: Phi Matamoros on 01-05-2025 Folate [Moles/Vol] 11.30 ng/mL 4.60-34.80 [facility] Folates,Serum (Folic Acid)on 01-05-2025 FOLATES,SERUM 11.30 ng/mL Normal 4.60-34.80 [facility] Comment on above: Order Comment: 300.1 Y Performed By: #### L 503.6030, L503.0106, L506.0200, L503.6550 ####[facility] [address] [place], [place], [address] HIGH SENSITIVITY TROPONIN, S ERIAL BASELINEon 01-05-2025 TROPONIN HS SERIAL BASELINE 4 ng/L Normal <=14 [facility] Comment on above: Result Comment: In i ndividuals presenting with symptoms > 2h, a baseline troponin <= 5 ng/L suggests acutecardiac injury is unlikely and further serial testing is generally not indicated. Performed By: #### L [id number] ####Budget Clerk: GRCAE MIRELES ([phone])[facility]ITALEs[facility] QUINONE[place] (SBHLAB)[address] [place] [address] Iron measurement (mass/mass) Ordered By: Phi Matamoros on 01-05-2025 Iron (Unsp spec) [Mass/Mass] 25 ug/dL Low 50-170 [facility] Iron+Iron Binding Capacityon 01-05-2025 Iron [Mass/Vol] 25 ug/dL Low 50-170 [facility] Comment on above: Order Comment: 300.1 Performed By: #### L 503.6030, L503.0106, L506.0200, L503.6550 ####[facility] [address] [place], [address] IRON SATURATION 15.0 Normal 13-59 [facility] Comment on above: Order Comment: 300.1 Performed By: #### L 503.6030, L503.0106, L506.0200, L503.6550 ####[facility] [address] [place], [address] UIBC 142 ug/dL Low 228-428 [facility] Comment on above: Order Comment: 300.1 Performed By: #### L 503.6030, L503.0106, L506.0200, L503.6550 ####[facility] [address] [place], [address] LACTIC ACID WITH REFLEXon Lactate [Moles/Vol] 1.0 mmol/L Normal 0.5-2.2 [facility] Comment on above: Performed By: #### L [id number] ####Budget Clerk: GRACE MIRELES ([phone])[facility] (SBHLAB)[address] [place] [address] Laboratory - Chemistry and C hemistry - challengeOrdered By: Romaine Hu on 01-05-2025 Base excess Calc (BldV) [Moles/Vol] -1.7000 mmol/L -3.0 - 3.0 mmol/L [facility] CO2 (BldV) [Partial pressure] 38 mm[Hg] [facility] CO2 [Moles/Vol] 24 mmol/L 23.0 - 30.0 mmol/L [facility] HCO3 (Bld) [Moles/Vol] 22.9 mmol/L 21.0 - 30.0 mmol/L [facility] Oxygen (BldV) [Partial pressure] 41.2 mm[Hg] mm Hg [facility] pH (BldV) 7.397 [pH] 7.320 - 7.420 [facility] Laboratory - Chemistry and C hemistry - challengeon 01-05-2025 Lactate [Moles/Vol] 1 mmol/L 0.5 - 2. 2 mmol/L [facility] Laboratory - Hematology and Cell countsOrdered By: Romaine Hu on 01-05-2025 Hemoglobin (Bld) [Mass/Vol] 10.1 g/dL Low Screen only [facility] No Panel Informationon 01-05 Interpretation and review of laboratory results Normal [facility] Troponin HS Serial Baseline 4 ng/L NINF - 14 ng/L [facility] Comment on above: In individuals prese nting with symptoms > 2h, a baseline troponin <= 5 ng/L suggests acute cardiac injury is unlikely and further serial testing is generally not indicated. [facility] 1. Successful placement of a right-sided PICC line as detailed above. The distal tip is in the SVC and it is ready for use. 2. This Power PICC is designed to tolerate power injections (as in CT). Report Dictated on Electronically Signed By: Fabricio Zepeda MD Electronically Signed Date/Time: 01/05/2025 4:46 PM [facility] 1945 [id number] Exam Date/Time: 01/05/2025 16:08 Procedure: IR CVC PICC PLACEMENT Ordering Provider: RICHEY MEJGON Reason For Exam: PNEUMONIA EXAMINATION: Right-sided PICC line placement. CLINICAL INFORMATION: IV access required long-term for antibiotics/medication s. ANESTHESIA: Local anesthesia was maintained with Lidocaine. FLUOROSCOPY USED: Dose Ka,r = 0.4 mGy, < 0.1 minutes, 0 cine run(s), and 1 fluoro spot(s) captured. PROCEDURE: The patient was placed supine on the angiographic table. The right arm was prepped and draped in the usual fashion. All elements of sterile technique were applied: cap, mask, sterile gown, proper hand hygiene including sterile gloves, a large sterile sheet, and hospital-approved cutaneous antisepsis at the site. Using ultrasound guidance (with a sterile probe cover and sterile gel) and a micropuncture set, (an image was saved to confirm vein patency and needle placement), the right basilic vein was cannulated. A wire was advanced without difficultly into the deep veins. Over this wire, the tract was dilated. A 5 Tanzanian dual-lumen PICC line was then advanced into position. Under fluoroscopy, the distal tip was placed in the superior vena cava. There were no immediate complications. The patient tolerated the procedure without difficulty and was transferred to the recovery room in stable condition. [facility] RADI[facility]Y SYSTEM Fabricio Zepeda MD - 01/05/2025 Patient Name: CLARITZA BURTON : 1945 Exam Date/Time: 01/05/2025 16:08 Procedure: IR CVC PICC PLACEMENT Ordering Provider: RICHEY MEJGON Reason For Exam: PNEUMONIA EXAMINATION: Right-sided PICC line placement. CLINICAL INFORMATION: IV access required long-term for antibiotics/medication s. ANESTHESIA: Local anesthesia was maintained with Lidocaine. FLUOROSCOPY USED: Dose Ka,r = 0.4 mGy, < 0.1 minutes, 0 cine run(s), and 1 fluoro spot(s) captured. PROCEDURE: The patient was placed supine on the angiographic table. The right arm was prepped and draped in the usual fashion. All elements of sterile technique were applied: cap, mask, sterile gown, proper hand hygiene including sterile gloves, a large sterile sheet, and hospital-approved cutaneous antisepsis at the site. Using ultrasound guidance (with a sterile probe cover and sterile gel) and a micropuncture set, (an image was saved to confirm vein patency and needle placement), the right basilic vein was cannulated. A wire was advanced without difficultly into the deep veins. Over this wire, the tract was dilated. A 5 [place] dual-lumen PICC line was then advanced into position. Under fluoroscopy, the distal tip was placed in the superior vena cava. There were no immediate complications. The patient tolerated the procedure without difficulty and was transferred to the recovery room in stable condition. IMPRESSION: 1. Successful placement of a right-sided PICC line as detailed above. The distal tip is in the SVC and it is ready for use. 2. This Power PICC is designed to tolerate power injections (as in CT). Report Dictated on Electronically Signed By: Fabricio Zepeda MD Electronically Signed Date/Time: 01/05/2025 4:46 PM EDT [facility] Interpretation and review of laboratory results Normal [facility] Radiology Study observation (narrative) [facility] Radiology Study observation (narrative) [facility] No Panel InformationOrdered By: Romaine Hu on 01-05-2025 Amount Of Oxygen [facility] Interpretation and review of laboratory results Abnormal [facility] Source Of Oxygen Nasal Cannula (LPM) [facility] Assessment of oxygenation is best done with an arterial blood gas determination. Reference ranges for pO2, bicarbonate, and base excess are for mixed venous blood. Specimens drawn from a peripheral vein will often have higher values. [facility] No Panel InformationOrdered By: Fabricio Zepeda on 01-05-2025 [facility] Work Phone: No Panel InformationOrdered By: Phi Matamoros on 01-05-2025 Unsaturated Iron Binding Capacity 142 ug/dL Low 228-428 [facility] 142 ug/dL Low 228-428 [facility] Nursing Noteon 01-05-2025 Nursing Note Normal [facility] Nursing Note Normal [facility] Progress Noteon 01-05-2025 Progress Note Culture reviewed. Awaiting sensitivity results Normal [facility] Serum or plasma ferritin jessica surement (mass/volume)Ordered By: Phi Matamoros on 01-05-2025 Ferritin [Mass/Vol] 616 ng/mL High 22-378 [facility] Serum or plasma iron saturat ion measurement (mass fraction)Ordered By: Phi Matamoros on 01-05-2025 Iron saturation [Mass fraction] 15.0 % 13-59 [facility] URINE CULTUREon 01-05-2025 Bacteria identified Cx Nom (U) Normal [facility] Comment on above: Performed By: #### L [id number] ####Budget Clerk: GRACE MIRELES ([phone])[facility] DEVI (SBHLAB)[address]#### [id number] ####Budget Clerk: CAROLE CID ([phone])[facility] (SACLAB)[address] [place] [address] Urinalysis complete panel (U )Ordered By: Kwadwo Musa on 01-05-2025 Bacteria LM.HPF (Urine sed) [#/Area] Few Abnormal Negative /HPF [facility] Bilirubin Ql (U) Negative Negative mg/dL [facility] Clarity (U) Turbid Abnormal Clear [facility] Color (U) Yellow Lt. Yellow [facility] Epithelial cells.squamous LM.HPF (Urine sed) [#/Area] 0-2 [facility] Glucose Ql (U) Normal Normal (<70) mg/dL [facility] Hemoglobin Ql (U) 0.2 mg/dL Abnormal Negative [facility] Hyaline casts Auto (Urine sed) [#/Area] 0-2 Abnormal Negative /LPF [facility] Interpretation and review of laboratory results Abnormal [facility] Ketones (U) [Mass/Vol] Negative Negat heath mg/dL [facility] Leukocyte clumps LM.HPF (Urine sed) [#/Area] Few Abnormal Negative /HPF [facility] Leukocyte esterase Test strip Ql (U) 500 Abnormal Negative Rafat/uL [facility] Mucus LM.HPF (Urine sed) [#/Area] Few Negative /LPF [facility] Nitrite Ql (U) Negative Negative [facility] pH (U) 6.5 [pH] 5.0 - 8.0 pH [facility] Protein (U) [Mass/Vol] 30 mg/dL Abnormal Negative [facility] RBC LM.HPF (Urine sed) [#/Area] 11-25 Abnormal [facility] Specific gravity (U) [Rel density] 1.019 1.005 - 1.030 [facility] Urate crystals LM.HPF (Urine sed) [#/Area] Moderate Abnormal Negative /HPF [facility] Urobilinogen (U) [Mass/Vol] Normal Normal (0-1) mg/dL [facility] WBC LM.HPF (Urine sed) [#/Area] /[HPF] Abnormal [facility] Yeast.budding LM.HPF (Urine sed) [#/Area] Many Abnormal Negative /HPF [facility] Vital signsOrdered By: Romaine Hu on 01-05-2025 Oxygen saturation in Venous blood 72.8 % [facility] Vitamin B12on 01-05-2025 Cobalamin (Vitamin B12) [Mass/Vol] 754 pg/mL Normal 180-914 [facility] Comment on above: Order Comment: 300.1 Performed By: #### L 503.6030, L503.0106, L506.0200, L503.6550 ####[facility] [address] [place], [place], [address] Vitamin B12 ser/plasOrdered By: Phi Matamoros on 01-05-2025 Cobalamin (Vitamin B12) [Mass/Vol] 754 pg/mL 180-914 [facility] XR Chest Single viewon 01-05 Left-sided PICC line is no longer visible. Degenerative changes of the thoracic spine and shoulders Report Dictated on Electronically Signed By: Noni Hermosillo MD Electronically Signed Date/Time: 01/05/2025 2:10 PM EDT [facility] [employer] SYSTEM Patient Name: CLARITZA BURTON : 1945 Exam Date/Time: 01/05/2025 13:33 Procedure: XR CHEST 1 VIEW Ordering Provider: RICHEY MEJGON Reason For Exam: r/o pna AP CHEST X-RAY CLINICAL INDICATION: Being treated for pneumonia. Pulled out PICC line TECHNIQUE: AP portable x-ray of the chest. COMPARISON: December 30, 2024 FINDINGS: Lines/Tubes: Left-sided PICC line is no longer visualized. No residual fragment is noted. Heart/Mediastinum: Within normal limits Lungs: Well-inflated and clear. No pneumothorax. Bones: Degenerative changes are seen in the thoracic spine and shoulders. No acute osseous findings. [facility] RADIOLOGY [facility] Noni Hermosillo MD - 01/05/2025 Patient Name: CLARITZA BURTON : 1945 [facility]#: [id number] Exam Date/Time: 01/05/2025 13:33 Procedure: XR CHEST 1 VIEW Ordering Provider: RICHEY MEJGON Reason For Exam: r/o pna AP CHEST X-RAY CLINICAL INDICATION: Being treated for pneumonia. Pulled out PICC line TECHNIQUE: AP portable x-ray of the chest. COMPARISON: December 30, 2024 FINDINGS: Lines/Tubes: Left-sided PICC line is no longer visualized. No residual fragment is noted. Heart/Mediastinum: Within normal limits Lungs: Well-inflated and clear. No pneumothorax. Bones: Degenerative changes are seen in the thoracic spine and shoulders. No acute osseous findings. IMPRESSION: Left-sided PICC line is no longer visible. Degenerative changes of the thoracic spine and shoulders Report Dictated on Electronically Signed By: Noni Hermosillo MD Electronically Signed Date/Time: 01/05/2025 2:10 PM EDT [facility] XR Chest Single viewOrdered By: Noni Hermosillo on 01-05-2025 [facility] Work Phone: Absolute lymphocyte countOrd ered By: Phi Matamoros on 01-04-2025 Lymphocytes Auto (Unsp spec) [#/Vol] 2.28 10*3/uL 0.83-4.51 [facility] Absolute neutrophil countOrd ered By: Phi Matamoros on 01-04-2025 Neutrophils (Bld) [#/Vol] 5.9 10*3/uL 2.0-7.7 [facility] Anion gap in Serum or Plasma Ordered By: Phi Matamoros on 01-04-2025 Anion gap [Moles/Vol] 11 mmol/L 5-15 [facility] Automated lymphocyte count a s percentage of total leukocytesOrdered By: Phi Matamoros on 01-04-2025 Lymphocytes/100 WBC Auto (Unsp spec) 24.3 % 19-41 [facility] BUN/creatinine ratioOrdered By: Phi Matamoros on 01-04-2025 Urea nitrogen/Creatinine [Mass ratio] 78.6 mg/mg High 10-20 [facility] Basophil percentageOrdered B y: Phi Matamoros on 01-04-2025 Basophils/100 WBC (Bld) 0.6 % 0-1 [facility] Bilirubin, totalOrdered By: Phi Matamoros on 01-04-2025 Bilirubin [Mass/Vol] 0.24 mg/dL 0.00-1.30 [facility] CBC W/Diff, Automatedon Absolute Lymph 2.28 X10 3/uL Normal 0.83-4.51 [facility] Comment on above: Order Comment: 300.1 Performed By: #### L 101.9900, L500.4050, L100.0100 ####[facility] [address] [place], [address] Absolute Neut 5.9 X10 3/uL Normal 2.0-7.7 [facility] Comment on above: Order Comment: 300.1 Performed By: #### L 101.9900, L500.4050, L100.0100 ####[facility] [address] [place], [address] Basophils/100 WBC (Bld) 0.6 % Normal 0-1 [facility] Comment on above: Order Comment: 300.1 Performed By: #### L 101.9900, L500.4050, L100.0100 ####[facility] [address] [place], [address] Eosinophils/100 WBC (Bld) 1.1 % Normal 0-5 [facility] Comment on above: Order Comment: 300.1 Performed By: #### L 101.9900, L500.4050, L100.0100 ####[facility] [address] [place], [address] Erythrocyte distribution width (RBC) [Ratio] 16.0 % High 11.6-14.6 [facility] Comment on above: Order Comment: 300.1 Performed By: #### L 101.9900, L500.4050, L100.0100 ####[facility] [address] [place], [address] Hematocrit (Bld) [Volume fraction] 28.8 % Low 37-47 [facility] Comment on above: Order Comment: 300.1 Performed By: #### L 101.9900, L500.4050, L100.0100 ####[facility] [address] [place], [address] Hemoglobin (Bld) [Mass/Vol] 9.0 g/dL Low 12.0-15. 0 [facility] Comment on above: Order Comment: 300.1 Performed By: #### L 101.9900, L500.4050, L100.0100 ####[facility] [address] [place], [address] IG% 1.000 High 0.0-0.9 [facility] Comment on above: Order Comment: 300.1 Result Comment: IG% - Immature Granulocytes (promyelocytes, myelocytes andmetamyelocytes) > 1% indicates that a LEFT SHIFT is Present. Performed By: #### L 101.9900, L500.4050, L100.0100 ####[facility] [address] [place], [address] Lymphocytes/100 WBC (Bld) 24.3 % Normal 19-41 [facility] Comment on above: Order Comment: 300.1 Performed By: #### L 101.9900, L500.4050, L100.0100 ####[facility] [address] [place], [address] MCH (RBC) [Entitic mass] 29.2 pg Normal 27.0-32.0 [facility] Comment on above: Order Comment: 300.1 Performed By: #### L 101.9900, L500.4050, L100.0100 ####[facility] [address] [place], [address] MCHC (RBC) [Mass/Vol] 31.3 g/dL Low 32-36 [facility] Comment on above: Order Comment: 300.1 Performed By: #### L 101.9900, L500.4050, L100.0100 ####[facility] [address] [place], [address] MCV (RBC) [Entitic vol] 93.5 fL Normal 81-99 [facility] Comment on above: Order Comment: 300.1 Performed By: #### L 101.9900, L500.4050, L100.0100 ####[facility] [address] [place], [address] Monocytes/100 WBC (Bld) 9.8 % Normal 0-10 [facility] Comment on above: Order Comment: 300.1 Performed By: #### L 101.9900, L500.4050, L100.0100 ####[facility] [address] [place], [address] Neutrophils/100 WBC (Bld) 63.2 % Normal 47-70 [facility] Comment on above: Order Comment: 300.1 Performed By: #### L 101.9900, L500.4050, L100.0100 ####[facility] [address] [place], [address] Nucleated RBC (Bld) [#/Vol] 0 10*3/uL Normal 0-5 [facility] Comment on above: Order Comment: 300.1 Performed By: #### L 101.9900, L500.4050, L100.0100 ####[facility] [address] [place], [address] Platelet mean volume (Bld) [Entitic vol] 10.6 fL Normal 6.2-12.0 [facility] Comment on above: Order Comment: 300.1 Performed By: #### L 101.9900, L500.4050, L100.0100 ####[facility] [address] [place], [address] Platelets (Bld) [#/Vol] 467 10*3/uL High 150-450 [facility] Comment on above: Order Comment: 300.1 Performed By: #### L 101.9900, L500.4050, L100.0100 ####[facility] [address] [place], [address] RBC (Bld) [#/Vol] 3.08 10*6/uL Low 4.2-5.4 [facility] Comment on above: Order Comment: 300.1 Performed By: #### L 101.9900, L500.4050, L100.0100 ####[facility] [address] [place], [address] RDW SD 54.5 fl High 35.1-43.9 [facility] Comment on above: Order Comment: 300.1 Performed By: #### L 101.9900, L500.4050, L100.0100 ####[facility] [address] [place], [address] WBC (Bld) [#/Vol] 9.4 10*3/uL Normal 4.4-11.0 [facility] Comment on above: Order Comment: 300.1 Performed By: #### L 101.9900, L500.4050, L100.0100 ####[facility] [address] [place], [address] Carbon dioxide, total [Moles /volume] in Central venous bloodOrdered By: Phi Matamoros on 01-04-2025 CO2 [Moles/Vol] 24.0 mmol/L 21.0-32.0 [facility] Chloride assayOrdered By: Solomon on 01-04-2025 Chloride [Moles/Vol] 102 mmol/L 98-108 [facility] Comprehensive Metabolic Prof ilon 01-04-2025 Albumin [Mass/Vol] 3.0 g/dL Low 3.4-4.8 [facility] Comment on above: Order Comment: 300.1 Performed By: #### L 101.9900, L500.4050, L100.0100 ####[facility] [address] [place], [address] Albumin/Globulin [Mass ratio] 0.9 {ratio} Normal 0.9-2.4 [facility] Comment on above: Order Comment: 300.1 Performed By: #### L 101.9900, L500.4050, L100.0100 ####[facility] [address] [place], [address] ALK PHOS 78 U/L Normal 35-104 [facility] Comment on above: Order Comment: 300.1 Performed By: #### L 101.9900, L500.4050, L100.0100 ####[facility] [address] [place], [address] ALT [Catalytic activity/Vol] 21 U/L Normal <=34 [facility] Comment on above: Order Comment: 300.1 Performed By: #### L 101.9900, L500.4050, L100.0100 ####[facility] [address] [place], [address] AST [Catalytic activity/Vol] 22 U/L Normal <=31 [facility] Comment on above: Order Comment: 300.1 Performed By: #### L 101.9900, L500.4050, L100.0100 ####[facility] [address] [place], [address] Bilirubin [Mass/Vol] 0.24 mg/dL Normal 0.00-1.30 [facility] Comment on above: Order Comment: 300.1 Performed By: #### L 101.9900, L500.4050, L100.0100 ####[facility] [address] [place], [address] BUN/CRE 78.6 RATIO High 10-20 [facility] Comment on above: Order Comment: 300.1 Performed By: #### L 101.9900, L500.4050, L100.0100 ####[facility] [address] [place], [address] Calcium [Mass/Vol] 9.3 mg/dL Normal 7.6-11.0 [facility] Comment on above: Order Comment: 300.1 Performed By: #### L 101.9900, L500.4050, L100.0100 ####[facility] [address] [place], [address] Chloride [Moles/Vol] 102 mmol/L Normal 98-108 [facility] Comment on above: Order Comment: 300.1 Performed By: #### L 101.9900, L500.4050, L100.0100 ####[facility] [address] [place], [address] CO2 [Moles/Vol] 24.0 mmol/L Normal 21.0-32.0 [facility] Comment on above: Order Comment: 300.1 Performed By: #### L 101.9900, L500.4050, L100.0100 ####[facility] [address] [place], [address] Creatinine [Mass/Vol] 0.38 mg/dL Low 0.70-1.20 [facility] Comment on above: Order Comment: 300.1 Performed By: #### L 101.9900, L500.4050, L100.0100 ####[facility] [address] [place], [address] GAP 11 Normal 5-15 [facility] Comment on above: Order Comment: 300.1 Performed By: #### L 101.9900, L500.4050, L100.0100 ####[facility] [address] [place], [address] GFR/1.73 sq M.predicted among non-blacks MDRD (S/P/Bld) [Vol rate/Area] 103 mL/min/{1.73_m2} Normal >60 [facility] Comment on above: Order Comment: 300.1 Result Comment: mL/m in/1.73m2 CKD-EPI Creatinine Equation (2020) Performed By: #### L 101.9900, L500.4050, L100.0100 ####[facility] [address] [place], [address] Globulin (S) [Mass/Vol] 3.2 g/dL Normal 2.2-4.2 [facility] Comment on above: Order Comment: 300.1 Performed By: #### L 101.9900, L500.4050, L100.0100 ####[facility] [address] [place], [address] Glucose [Mass/Vol] 135 mg/dL High 70-99 [facility] Comment on above: Order Comment: 300.1 Performed By: #### L 101.9900, L500.4050, L100.0100 ####[facility] [address] [place], [address] Potassium [Moles/Vol] 4.5 mmol/L Normal 3.3-5.1 [facility] Comment on above: Order Comment: 300.1 Performed By: #### L 101.9900, L500.4050, L100.0100 ####[facility] [address] [place], [address] Sodium [Moles/Vol] 136 mmol/L Normal 133-145 [facility] Comment on above: Order Comment: 300.1 Performed By: #### L 101.9900, L500.4050, L100.0100 ####[facility] [address] [place], [address] T PROT 6.2 g/dL Normal 5.9-8.4 [facility] Comment on above: Order Comment: 300.1 Performed By: #### L 101.9900, L500.4050, L100.0100 ####[facility] [address] [place], [address] Urea nitrogen [Mass/Vol] 30 mg/dL High 4-19 [facility] Comment on above: Order Comment: 300.1 Performed By: #### L 101.9900, L500.4050, L100.0100 ####[facility] [address] [place], [address] Eosinophil percentageOrdered By: Phi Matamoros on 01-04-2025 Eosinophils/100 WBC (Bld) 1.1 % 0-5 [facility] Erythrocyte Sed Rateon 01-04 SED RATE 35 mm/hr High 0-30 [facility] Comment on above: Order Comment: 300.1 Performed By: #### L 101.9900, L500.4050, L100.0100 ####[facility] [address] [place], [place], [address] Erythrocyte distribution wid th ratioOrdered By: Phi Matamorso on 01-04-2025 Erythrocyte distribution width (RBC) [Ratio] 16.0 % High 11.6-14.6 [facility] Erythrocyte distribution wid th standard deviationOrdered By: Phi Matamoros on 01-04-2025 Erythrocyte distribution width (RBC) [Ratio] 54.5 fl High 35.1-43.9 [facility] Erythrocyte sedimentation ra teOrdered By: Phi Matamoros on 01-04-2025 ESR (Bld) [Velocity] 35 mm/h High 0-30 [facility] Glomerular filtration rate ( GFR) estimation/1.73 sq m using serum, plasma, or whole bOrdered By: Phi Matamoros on 01-04-2025 GFR/1.73 sq M.predicted among non-blacks MDRD (S/P/Bld) [Vol rate/Area] 103 mL/min/{1.73_m2} >60 [facility] Comment on above: mL/min/1.73m2 CKD-EP I Creatinine Equation (2020) Hematocrit Auto (Bld) [Volum e fraction]Ordered By: Phi Matamoros on 01-04-2025 Hematocrit (Bld) [Volume fraction] 28.8 % Low 37-47 [facility] Hemoglobin measurementOrdere d By: Phi Matamoros on 01-04-2025 Hemoglobin (Bld) [Mass/Vol] 9.0 g/dL Low 12.0-15. 0 [facility] Immature granulocytes/100 WB C Auto (Bld)Ordered By: Phi Matamoros on 01-04-2025 Immature granulocytes/100 WBC (Bld) 1.000 % High 0.0-0.9 [facility] Comment on above: IG% - Immature Granu locytes (promyelocytes, myelocytes and metamyelocytes) > 1% indicates that a LEFT SHIFT is Present. Laboratory - Chemistry and C hemistry - challengeOrdered By: Phi Matamoros on 01-04-2025 AST [Catalytic activity/Vol] 22 U/L <32 [facility] MCV (mean corpuscular volume ) determinationOrdered By: Phi Matamoros on 01-04-2025 MCV (RBC) [Entitic vol] 93.5 fL 81-99 [facility] Mean corpuscular hemoglobin (MCH) determinationOrdered By: Phi Matamoros on 01-04-2025 MCH (RBC) [Entitic mass] 29.2 pg 27.0-32.0 [facility] Mean corpuscular hemoglobin concentration (MCHC) determinationOrdered By: Phi Matamoros on 01-04-2025 MCHC (RBC) [Mass/Vol] 31.3 g/dL Low 32-36 [facility] Mean platelet volume determi nationOrdered By: Phi Matamoros on 01-04-2025 Platelet mean volume (Bld) [Entitic vol] 10.6 fL 6.2-12.0 [facility] Monocyte percentageOrdered B y: Phi Matamoros on 01-04-2025 Monocytes/100 WBC (Bld) 9.8 % 0-10 [facility] Neutrophil percentageOrdered By: Phi Matamoros on 01-04-2025 Neutrophils/100 WBC (Bld) 63.2 % 47-70 [facility] No Panel InformationOrdered By: Phi Matamoros on 01-04-2025 22 U/L <32 [facility] Nucleated red blood cell per centageOrdered By: Phi Matamoros on 01-04-2025 Nucleated RBC/100 WBC (Bld) [Ratio] 0 % 0-5 [facility] Platelet countOrdered By: Solomon on 01-04-2025 Platelets (Bld) [#/Vol] 467 10*3/uL High 150-450 [facility] Potassium measurement (mass/ volume)Ordered By: Phi Matamoros on 01-04-2025 Potassium (Unsp spec) [Mass/Vol] 4.5 mmol/L 3.3-5.1 [facility] RBC Auto (Bld) [#/Vol]Ordere d By: Phi Matamoros on 01-04-2025 RBC (Bld) [#/Vol] 3.08 10*6/uL Low 4.2-5.4 [facility] Serum creatinine measurement (mass/volume)Ordered By: Phi Matamoros on 01-04-2025 Creatinine [Mass/Vol] 0.38 mg/dL Low 0.70-1.20 [facility] Serum globulin measurementOr dered By: Phi Matamoros on 01-04-2025 Globulin (S) [Mass/Vol] 3.2 g/dL 2.2-4.2 [facility] Serum glucose measurement (m ass/volume)Ordered By: Phi Matamoros on 01-04-2025 Glucose [Mass/Vol] 135 mg/dL High 70-99 [facility] Serum or plasma alanine phillips otransferase (ALT) measurementOrdered By: Phi Matamoros on 01-04-2025 ALT [Catalytic activity/Vol] 21 U/L <35 [facility] Serum or plasma albumin abhinav urement (mass/volume)Ordered By: Phi Matamoros on 01-04-2025 Albumin [Mass/Vol] 3.0 g/dL Low 3.4-4.8 [facility] Serum or plasma albumin/glob ulin mass ratioOrdered By: Phi Matamoros on 01-04-2025 Albumin/Globulin [Mass ratio] 0.9 {ratio} 0.9-2.4 [facility] Serum or plasma alkaline jose sphatase measurementOrdered By: Phi Matamoros on 01-04-2025 ALP [Catalytic activity/Vol] 78 U/L 35-104 [facility] Serum or plasma calcium abhinav urement (mass/volume)Ordered By: Phi Matamoros on 01-04-2025 Calcium [Mass/Vol] 9.3 mg/dL 7.6-11.0 [facility] Serum or plasma urea nitroge n measurement (mass/volume)Ordered By: Phi Matamoros on 01-04-2025 Urea nitrogen [Mass/Vol] 30 mg/dL High 4-19 [facility] Sodium levelOrdered By: Phi Matamoros on 01-04-2025 Sodium [Moles/Vol] 136 mmol/L 133-145 [facility] Total proteinOrdered By: Radha Matamoros on 01-04-2025 Protein [Mass/Vol] 6.2 g/dL 5.9-8.4 [facility] White blood cell (WBC) count Ordered By: Phi Matamoros on 01-04-2025 WBC (Bld) [#/Vol] 9.4 10*3/uL 4.4-11.0 [facility] [id number] 01-01-2025 [id number] Patient Choice Patient Name: CLARITZA BURTON Date of : 1945 [facility] 36on 01-01-2025 36 [facility] 30on 12-31-2024 30 [facility] 30 [facility] [id number] 12-31-2024 [id number] [facility] [id number] Discharge med list transmitted to [facility] via [employer] per T[facility] request. 7000 was entered into [employer] for the [facility]. [facility] [phone] Transport arranged f or 2pm to [facility] for skilled care. Called legal guardian Kadi Dickinson- updated on above plan- agreeable to plan. No further needs. Normal [facility] [id number] Normal [facility] [id number] Normal [facility] Bacteria identified Cx Nom ( Bld)on 12-31-2024 Interpretation and review of laboratory results Normal [facility] CALCIUM, IONIZEDon CALCIUM IONIZED 4.60 mg/dL Normal 4.30-5.20 [facility] Comment on above: Performed By: #### L [id number] ####Budget Clerk: CAROLE CID ([id number])[address] PH, IONIZED CALCIUM 7.41 Normal 7.31-7.46 [facility] Comment on above: Performed By: #### L AB54 ####Budget Clerk: CAROLE CID ([id number])[facility] ([facility])[address] [place] [address] CBC W Auto Differential pane l (Bld)on 12-31-2024 Basophils (Bld) [#/Vol] 0 10*3/uL 0.0 - 0.2 10*3/uL [facility] Basophils/100 WBC (Bld) 0.4 % 0.0 - 2.0 % [facility] Eosinophils (Bld) [#/Vol] 0.1 10*3/uL 0. 0 - 0.5 10*3/uL [facility] Eosinophils/100 WBC (Bld) 2 % 0. 0 - 6.0 % [facility] Erythrocyte distribution width (RBC) [Ratio] 15.6 % High 11.5 - 15.0 % [facility] Hematocrit (Bld) [Volume fraction] 28 % Low 35.0 - 47.0 % [facility] Hemoglobin (Bld) [Mass/Vol] 8.5 g/dL Low 11.7 - 16.0 g/dL [facility] Immature granulocytes (Bld) [#/Vol] 0.1 10*3/uL High NINF - 0.1 10*3/uL [facility] Immature granulocytes/100 WBC (Bld) 0.9 % 0.0 - 2.0 % [facility] Interpretation and review of laboratory results Abnormal [facility] Lymphocytes (Bld) [#/Vol] 2.1 10*3/uL 1. 0 - 4.3 10*3/uL [facility] Lymphocytes/100 WBC (Bld) 29.8 % 15 .0 - 45.0 % [facility] MCH (RBC) [Entitic mass] 28.1 pg 26. 0 - 34.0 pg [facility] MCHC (RBC) [Mass/Vol] 30.4 % Low 30.5 - 36.0 % [facility] MCV (RBC) [Entitic vol] 92.4 fL 77.0 - 99.0 fL [facility] Monocytes (Bld) [#/Vol] 0.9 10*3/uL 0.0 - 0.9 10*3/uL [facility] Monocytes/100 WBC (Bld) 12.1 % 5.0 - 13.0 % [facility] Neutrophils (Bld) [#/Vol] 3.9 10*3/uL 1. 8 - 7.5 10*3/uL [facility] Neutrophils/100 WBC (Bld) 54.8 % 38 .0 - 82.0 % [facility] Nucleated RBC/100 WBC (Bld) [Ratio] 0 % [facility] Platelet mean volume (Bld) [Entitic vol] 9.8 fL 9.0 - 12.7 fL [facility] Platelets (Bld) [#/Vol] 456 10*3/uL High 140 - 440 10*3/uL [facility] RBC (Bld) [#/Vol] 3.03 10*6/uL Low 3.80 - 5.20 10*6/uL [facility] WBC (Bld) [#/Vol] 7 10*3/uL 3.6 - 10.7 10*3/uL [facility] CBC WITH AUTO DIFFERENTIALon 12-31-2024 Basophils (Bld) [#/Vol] 0.0 10*3/uL Normal 0.0-0.2 [facility] Comment on above: Performed By: #### L [id number] ####Budget Clerk: CAROLE CID ([id number])[facility])[address] [place] [address] Basophils/100 WBC (Bld) 0.4 % Normal 0.0-2.0 [facility] Comment on above: Performed By: #### L [id number] ####Budget Clerk: CAROLE CID ([id number])[facility])[address] [place] [address] Eosinophils (Bld) [#/Vol] 0.1 10*3/uL Normal 0.0-0.5 [facility] Comment on above: Performed By: #### L [id number] ####Budget Clerk: CAROLE CID ([id number])[address] Eosinophils/100 WBC (Bld) 2.0 % Normal 0.0-6.0 [facility] Comment on above: Performed By: #### L [id number] ####Budget Clerk: CAROLE CID ([id number])[facility])[address] [place] [address] Erythrocyte distribution width (RBC) [Ratio] 15.6 % High 11.5-15.0 [facility] Comment on above: Performed By: #### L [id number] ####Budget Clerk: CAROLE CID ([id number])[address] Hematocrit (Bld) [Volume fraction] 28.0 % Low 35.0-47.0 [facility] Comment on above: Performed By: #### L [id number] ####Budget Clerk: CAROLE CID ([id number])[facility])[address] [place] [address] Hemoglobin (Bld) [Mass/Vol] 8.5 g/dL Low 11.7-16. 0 [facility] Comment on above: Performed By: #### L [id number] ####Budget Clerk: CAROLE CID ([id number])[facility])[address] [place] [address] IMMATURE GRANS % 0.9 % Normal 0.0-2.0 [facility] Comment on above: Performed By: #### L [id number] ####Budget Clerk: CAROLE CID ([id number])[facility])[address] [place] [address] IMMATURE GRANS ABSOLUTE 0.1 10*3/uL High <0.1 [facility] Comment on above: Performed By: #### L [id number] ####Budget Clerk: CAROLE CID ([id number])[facility])[address] [place] [address] Lymphocytes (Bld) [#/Vol] 2.1 10*3/uL Normal 1.0-4.3 [facility] Comment on above: Performed By: #### L [id number] ####Budget Clerk: CAROLE CID ([id number])[facility])[address] [place] [address] Lymphocytes/100 WBC (Bld) 29.8 % Normal 15.0-45.0 [facility] Comment on above: Performed By: #### L [id number] ####Budget Clerk: CAROLE CID ([id number])[facility])[address] [place] [address] MCH (RBC) [Entitic mass] 28.1 pg Normal 26.0-34.0 [facility] Comment on above: Performed By: #### L [id number] ####Budget Clerk: CAROLE CID ([id number])[facility])[address] [place] [address] MCHC 30.4 % Low 30.5-36.0 [facility] Comment on above: Performed By: #### L [id number] ####Budget Clerk: CAROLE CID ([id number])[facility])[address] [place] [address] MCV (RBC) [Entitic vol] 92.4 fL Normal 77.0-99.0 [facility] Comment on above: Performed By: #### L [id number] ####Budget Clerk: CAROLE CID ([id number])[facility] ([facility])[address] [place] [address] Monocytes (Bld) [#/Vol] 0.9 10*3/uL Normal 0.0-0.9 [facility] Comment on above: Performed By: #### L [id number] ####Budget Clerk: CAROLE CID ([id number])[facility] ([facility])[address] [place] [address] Monocytes/100 WBC (Bld) 12.1 % Normal 5.0-13.0 [facility] Comment on above: Performed By: #### L [id number] ####Budget Clerk: CAROLE CID ([id number])[facility] ([facility])[address] [place] [address] NEUTROPHILS ABSOLUTE 3.9 10*3/uL Normal 1.8-7.5 [facility] Comment on above: Performed By: #### L [id number] ####Budget Clerk: CAROLE CID ([id number])[facility] ([facility])[address] [place] [address] Neutrophils/100 WBC (Bld) 54.8 % Normal 38.0-82.0 [facility] Comment on above: Performed By: #### L [id number] ####Budget Clerk: CAROLE CID ([id number])[facility] ([facility])[address] [place] [address] NRBC 0.0 /100 WBCs Normal 0.0-2.0 [facility] Comment on above: Performed By: #### L [id number] ####Budget Clerk: CAROLE CID ([id number])[facility] ([facility])[address] [place] [address] Platelet mean volume (Bld) [Entitic vol] 9.8 fL Normal 9.0-12.7 [facility] Comment on above: Performed By: #### L [id number] ####Budget Clerk: CAROLE CID ([id number])[facility] ([facility])[address] [place] [address] Platelets (Bld) [#/Vol] 456 10*3/uL High 140-440 [facility] Comment on above: Performed By: #### L [id number] ####Budget Clerk: CAROLE CID ([id number])[facility])[address] [place] [address] RBC (Bld) [#/Vol] 3.03 10*6/uL Low 3.80-5.20 [facility] Comment on above: Performed By: #### L [id number] ####Budget Clerk: CAROLE CID ([id number])[facility])[address] [place] [address] WBC (Bld) [#/Vol] 7.0 10*3/uL Normal 3.6-10.7 [facility] Comment on above: Performed By: #### Mago [id number] ####Budget Clerk: CAROLE CID ([id number])[facility] ([facility])[address] [place] [address] COMPREHENSIVE METABOLIC PANE Demetris 12-31-2024 Albumin [Mass/Vol] 2.1 g/dL Low 3.4-4.8 [facility] Comment on above: Performed By: #### L AB113, LAB17, [id number] ####Budget Clerk: CAROLE CID ([id number])[facility] ([facility])[address] [place] [address] ALP [Catalytic activity/Vol] 68 U/L Normal 40-150 [facility] Comment on above: Performed By: #### L AB113, LAB17, [id number] ####Budget Clerk: CAROLE CID ([id number])[facility])[address] [place] [address] ALT [Catalytic activity/Vol] 30 U/L High <30 [facility] Comment on above: Performed By: #### L AB113, LAB17, [id number] ####Budget Clerk: CAROLE CID ([id number])[facility])[address] [place] [address] Anion gap [Moles/Vol] 7 mmol/L Normal 3-13 [facility] Comment on above: Performed By: #### Mago ABDarlene, LAB17, [id number] ####Budget Clerk: CAROLE CID ([id number])[facility] [place] [address] AST [Catalytic activity/Vol] 30 U/L Normal <34 [facility] Comment on above: Performed By: #### Mago ABDarlene, LAB17, [id number] ####Budget Clerk: CAROLE CID ([id number])[facility] ([facility])[address] [place] [address] Bilirubin [Mass/Vol] 0.2 mg/dL Normal <1.2 [facility] Comment on above: Performed By: #### Mago MILES, LAB17, [id number] ####Budget Clerk: CAROLE CID ([id number])[facility] [place] [address] Calcium [Mass/Vol] 8.3 mg/dL Low 8.8-10.0 [facility] Comment on above: Performed By: #### Mago MILES, LAB17, [id number] ####Budget Clerk: CAROLE CID ([id number])[facility] [place] [address] [place] Chloride [Moles/Vol] 108 mmol/L High 98-107 [facility] Comment on above: Performed By: #### Mago ABDarlene, LAB17, [id number] ####Budget Clerk: CAROLE CID ([id number])[facility] [place] [address] [place] CO2 [Moles/Vol] 25 mmol/L Normal 23-31 [facility] Comment on above: Performed By: #### Mago ABDarlene, LAB17, [id number] ####Budget Clerk: CAROLE CID ([id number])[facility] ([facility])[address] [place] [address] [place] Creatinine [Mass/Vol] 0.47 mg/dL Low 0.57-1.11 [facility] Comment on above: Performed By: #### L AB113, LAB17, [id number] ####Budget Clerk: CAROLE CID ([id number])[facility])[address] [place] [address] GLOMERULAR FILTRATION RATE ML/MIN/1.73 SQ M.PREDICTED >90.0 Normal >60.0 [facility] Comment on above: Result Comment: Calc ulation based on the Chronic Kidney Disease Epidemiology Collaboration (CKD-EPI) equation refit without adjustment for race Performed By: #### L AB113, LAB17, [id number] ####Budget Clerk: CAROLE CID ([id number])[address] Glucose [Mass/Vol] 118 mg/dL High 82-115 [facility] Comment on above: Performed By: #### Mago ABDarlene, LAB17, [id number] ####Budget Clerk: CAROLE CID ([id number])[address] Potassium [Moles/Vol] 4.1 mmol/L Normal 3.5-5.1 [facility] Comment on above: Result Comment: [facility] potassium values may be up to 0.5 mmol/L lower than serum values. Performed By: #### Mago AB113, LAB17, [id number] ####Budget Clerk: CAROLE CID ([id number])[address] Protein [Mass/Vol] 5.5 g/dL Low 6.4-8.3 [facility] Comment on above: Performed By: #### L AB113, LAB17, [id number] ####Budget Clerk: CAROLE CID ([id number])[address] Sodium [Moles/Vol] 140 mmol/L Normal 136-145 [facility] Comment on above: Performed By: #### L AB113, LAB17, [id number] ####Budget Clerk: CAROLE [id number])[facility] ([facility])[address] [place] [address] Urea nitrogen [Mass/Vol] 16 mg/dL Normal 06-22 [facility] Comment on above: Performed By: #### L AB113, LAB17, [id number] ####Budget Clerk: CAROLE CID ([id number])[facility] ([facility])[address] [place] [address] Calcium.ionized [Moles/Vol]o n 12-31-2024 Calcium.ionized (Bld) [Moles/Vol] 4.6 mg/dL 4.30 - 5.20 mg/dL [facility] Interpretation and review of laboratory results Normal [facility] PH, IONIZED CALCIUM 7.41 7.31 - 7.46 [facility] Comprehensive metabolic 1998 panelon 12-31-2024 Albumin [Mass/Vol] 2.1 g/dL Low 3.4 - 4.8 g/dL [facility] ALP [Catalytic activity/Vol] 68 U/L 40 - 150 U/L [facility] ALT [Catalytic activity/Vol] 30 U/L High NINF - 30 U/L [facility] Anion gap [Moles/Vol] 7 mmol/L 3 - 13 mmol/L [facility] AST [Catalytic activity/Vol] 30 [facility] Bilirubin [Mass/Vol] 0.2 mg/dL [facility] - 1.[facility] mg/dL [facility] Calcium [Mass/Vol] 8.3 mg/dL Low 8.8 - 10. 0 mg/dL [facility] Chloride [Moles/Vol] 108 mmol/L High 98 - 10 7 mmol/L [facility] CO2 [Moles/Vol] 25 mmol/L 23 - 31 mmol/L [facility] Creatinine [Mass/Vol] 0.47 mg/dL Low 0.57 - 1.11 mg/dL [facility] GFR/1.73 sq M.predicted (S/P/Bld) [Vol rate/Area] - PINF [facility] Glucose [Mass/Vol] 118 mg/dL High 82 - 115 mg/dL [facility] Potassium [Moles/Vol] 4.1 mmol/L 3.5 - 5.1 mmol/L [facility] Protein [Mass/Vol] 5.5 g/dL Low 6.4 - 8.3 g/dL [facility] Sodium [Moles/Vol] 140 mmol/L 136 - 145 mmol/L [facility] Urea nitrogen [Mass/Vol] 16 mg/dL 9 - 23 mg/dL [facility] Laboratory - Chemistry and C hemistry - challengeon 12-31-2024 Magnesium [Mass/Vol] 2.2 mg/dL 1.6 - 2 .6 mg/dL [facility] Laboratory - Microbiology an d Antimicrobial susceptibilityon 12-31-2024 Bacteria identified Cx Nom (Bld) No growth at 5 days [facility] MAGNESIUMon 12-31-2024 Magnesium [Mass/Vol] 2.2 mg/dL Normal 1.6-2.6 [facility] Comment on above: Result Comment: ANDRADE Rosario COMMENTS:Higher values can be expected in females during menses. Performed By: #### L [id number], [id number], [id number] ####Budget Clerk: CAROLE CID ([id number])[facility])[address] [place] [address] Magnesium [Mass/Vol]on 12-31 Interpretation and review of laboratory results Normal [facility] No Panel Informationon 12-31 Interpretation and review of laboratory results Abnormal [facility] Nursing Noteon 12-31-2024 Nursing Note Verbal report given to KHANH Archibald at [facility]. No questions or concerns voiced. Call back number provided. Normal [facility] PHOSPHORUSon 12-31-2024 Phosphate [Mass/Vol] 2.1 mg/dL Low 2.3-4.7 [facility] Comment on above: Performed By: #### L [id number], LAB17, [id number] ####Budget Clerk: CAROLE CID ([id number])[facility] ([facility])[address] [place] [address] [place] Phosphate [Moles/Vol]on Phosphate [Mass/Vol] 2.1 mg/dL Low 2.3 - 4 .7 mg/dL [facility] Progress Noteon 12-31-2024 Progress Note Normal [facility] 30on 12-30-2024 30 Normal [facility] [id number] 12-30-2024 [id number] [facility] notified ACCOUNTS RECEIVABLE CLERK that Patient is approved with auth good until 01/05. Notified TCC. Normal [facility] CALCIUM, IONIZEDon CALCIUM IONIZED 4.20 mg/dL Low 4.30-5.20 [facility] Comment on above: Performed By: #### L [id number] ####Budget Clerk: CAROLE CID ([id number])[facility] ([facility])[address] [place] [address] PH, IONIZED CALCIUM 7.55 High 7.31-7.46 [facility] Comment on above: Performed By: #### L [id number] ####Budget Clerk: CAROLE CID ([id number])[facility] ([facility])[address] [place] [address] CBC W Auto Differential pane l (Bld)on 12-30-2024 Basophils (Bld) [#/Vol] 0 10*3/uL 0.0 - 0.2 10*3/uL [facility] Basophils/100 WBC (Bld) 0.5 % 0.0 - 2.0 % [facility] Eosinophils (Bld) [#/Vol] 0.2 10*3/uL 0. 0 - 0.5 10*3/uL [facility] Eosinophils/100 WBC (Bld) 2 % 0. 0 - 6.0 % [facility] Erythrocyte distribution width (RBC) [Ratio] 15.6 % High 11.5 - 15.0 % [facility] Hematocrit (Bld) [Volume fraction] 28.1 % Low 35.0 - 47.0 % [facility] Hemoglobin (Bld) [Mass/Vol] 8.7 g/dL Low 11.7 - 16.0 g/dL [facility] Immature granulocytes (Bld) [#/Vol] 0.1 10*3/uL High NINF - 0.1 10*3/uL [facility] Immature granulocytes/100 WBC (Bld) 1 % 0.0 - 2.0 % [facility] Interpretation and review of laboratory results Abnormal [facility] Lymphocytes (Bld) [#/Vol] 1.5 10*3/uL 1. 0 - 4.3 10*3/uL [facility] Lymphocytes/100 WBC (Bld) 21 % 15 .0 - 45.0 % [facility] MCH (RBC) [Entitic mass] 28.8 pg 26. 0 - 34.0 pg [facility] MCHC (RBC) [Mass/Vol] 31 % 30.5 - 36.0 % [facility] MCV (RBC) [Entitic vol] 93 fL 77.0 - 99.0 fL [facility] Monocytes (Bld) [#/Vol] 0.8 10*3/uL 0.0 - 0.9 10*3/uL [facility] Monocytes/100 WBC (Bld) 10.9 % 5.0 - 13.0 % [facility] Neutrophils (Bld) [#/Vol] 4.8 10*3/uL 1. 8 - 7.5 10*3/uL [facility] Neutrophils/100 WBC (Bld) 64.6 % 38 .0 - 82.0 % [facility] Nucleated RBC/100 WBC (Bld) [Ratio] 0 % [facility] Platelet mean volume (Bld) [Entitic vol] 9.8 fL 9.0 - 12.7 fL [facility] Platelets (Bld) [#/Vol] 456 10*3/uL High 140 - 440 10*3/uL [facility] RBC (Bld) [#/Vol] 3.02 10*6/uL Low 3.80 - 5.20 10*6/uL [facility] WBC (Bld) [#/Vol] 7.4 10*3/uL 3.6 - 10.7 10*3/uL [facility] CBC WITH AUTO DIFFERENTIALon 12-30-2024 Basophils (Bld) [#/Vol] 0.0 10*3/uL Normal 0.0-0.2 [facility] Comment on above: Performed By: #### L [id number] ####Budget Clerk: CAROLE CID ([id number])[facility] ([address] Basophils/100 WBC (Bld) 0.5 % Normal 0.0-2.0 [facility] Comment on above: Performed By: #### L [id number] ####Budget Clerk: CAROLE CID ([id number])[facility])[address] [place] [address] Eosinophils (Bld) [#/Vol] 0.2 10*3/uL Normal 0.0-0.5 [facility] Comment on above: Performed By: #### L [id number] ####Budget Clerk: CAROLE CID ([id number])[facility])[address] [place] [address] Eosinophils/100 WBC (Bld) 2.0 % Normal 0.0-6.0 [facility] Comment on above: Performed By: #### L [id number] ####Budget Clerk: CAROLE CID ([id number])[address] Erythrocyte distribution width (RBC) [Ratio] 15.6 % High 11.5-15.0 [facility] Comment on above: Performed By: #### L [id number] ####Budget Clerk: CAROLE CID ([id number])[facility])[address] [place] [address] Hematocrit (Bld) [Volume fraction] 28.1 % Low 35.0-47.0 [facility] Comment on above: Performed By: #### L [id number] ####Budget Clerk: CAROLE CID ([id number])[facility])[address] [place] [address] Hemoglobin (Bld) [Mass/Vol] 8.7 g/dL Low 11.7-16. 0 [facility] Comment on above: Performed By: #### L [id number] ####Budget Clerk: CAROLE CID ([id number])[facility])[address] [place] [address] IMMATURE GRANS % 1.0 % Normal 0.0-2.0 [facility] Comment on above: Performed By: #### L [id number] ####Budget Clerk: CAROLE [id number])[facility])[address] [place] [address] IMMATURE GRANS ABSOLUTE 0.1 10*3/uL High <0.1 [facility] Comment on above: Performed By: #### L [id number] ####Budget Clerk: CAROLE CID ([id number])[facility])[address] [place] [address] Lymphocytes (Bld) [#/Vol] 1.5 10*3/uL Normal 1.0-4.3 [facility] Comment on above: Performed By: #### L [id number] ####Budget Clerk: CAROLE CID ([id number])[facility])[address] [place] [address] Lymphocytes/100 WBC (Bld) 21.0 % Normal 15.0-45.0 [facility] Comment on above: Performed By: #### L [id number] ####Budget Clerk: CAROLE CID ([id number])[facility])[address] [place] [address] MCH (RBC) [Entitic mass] 28.8 pg Normal 26.0-34.0 [facility] Comment on above: Performed By: #### L [id number] ####Budget Clerk: CAROLE CID ([id number])[facility])[address] [place] [address] MCHC 31.0 % Normal 30.5-36.0 [facility] Comment on above: Performed By: #### L [id number] ####Budget Clerk: CAROLE CID ([id number])[facility])[address] [place] [address] MCV (RBC) [Entitic vol] 93.0 fL Normal 77.0-99.0 S [facility] Comment on above: Performed By: #### L [id number] ####Budget Clerk: CAROLE CID ([id number])[facility])[address] [place] [address] [place] Monocytes (Bld) [#/Vol] 0.8 10*3/uL Normal 0.0-0.9 [facility] Comment on above: Performed By: #### L [id number] ####Budget Clerk: CAROLE CID ([id number])[facility] ([facility])[address] [place] [address] Monocytes/100 WBC (Bld) 10.9 % Normal 5.0-13.0 [facility] Comment on above: Performed By: #### L [id number] ####Budget Clerk: CAROLE CID ([id number])[facility] ([facility])[address] [place] [address] NEUTROPHILS ABSOLUTE 4.8 10*3/uL Normal 1.8-7.5 [facility] Comment on above: Performed By: #### L [id number] ####Budget Clerk: CAROLE CID ([id number])[facility] ([facility])[address] [place] [address] Neutrophils/100 WBC (Bld) 64.6 % Normal 38.0-82.0 [facility] Comment on above: Performed By: #### L [id number] ####Budget Clerk: CAROLE CID ([id number])[facility] ([facility])[address] [place] [address] NRBC 0.0 /100 WBCs Normal 0.0-2.0 [facility] Comment on above: Performed By: #### L [id number] ####Budget Clerk: CAROLE CID ([id number])[facility] ([facility])[address] [place] [address] Platelet mean volume (Bld) [Entitic vol] 9.8 fL Normal 9.0-12.7 [facility] Comment on above: Performed By: #### L [id number] ####Budget Clerk: CAROLE CDI ([id number])[facility] ([facility])[address] [place] [address] [place] Platelets (Bld) [#/Vol] 456 10*3/uL High 140-440 [facility] Comment on above: Performed By: #### L [id number] ####Budget Clerk: CAROLE CID ([id number])[facility])[address] [place] [address] RBC (Bld) [#/Vol] 3.02 10*6/uL Low 3.80-5.20 [facility] Comment on above: Performed By: #### L [id number] ####Budget Clerk: CAROLE CID ([id number])[facility])[address] [place] [address] WBC (Bld) [#/Vol] 7.4 10*3/uL Normal 3.6-10.7 [facility] Comment on above: Performed By: #### L [id number] ####Budget Clerk: CAROLE CID ([id number])[facility])[address] [place] [address] COMPREHENSIVE METABOLIC PANE Demetris 12-30-2024 Albumin [Mass/Vol] 2.1 g/dL Low 3.4-4.8 [facility] Comment on above: Performed By: #### L AB103, [id number], LAB17 ####Budget Clerk: CAROLE CID ([id number])[facility])[address] [place] [address] ALP [Catalytic activity/Vol] 66 U/L Normal 40-150 [facility] Comment on above: Performed By: #### L AB103, [id number], LAB17 ####Budget Clerk: CAROLE CID ([id number])[facility])[address] [place] [address] ALT [Catalytic activity/Vol] 36 U/L High <30 [facility] Comment on above: Performed By: #### L AB103, [id number], LAB17 ####Budget Clerk: CAROLE CID ([id number])[facility])[address] [place] [address] Anion gap [Moles/Vol] 5 mmol/L Normal 3-13 [facility] Comment on above: Performed By: #### L AB103, [id number], LAB17 ####Budget Clerk: CAROLE CID ([id number])[facility] ([facility])[address] [place] [address] AST [Catalytic activity/Vol] 31 U/L Normal <34 [facility] Comment on above: Performed By: #### L AB103, [id number], LAB17 ####Budget Clerk: CAROLE CID ([id number])[facility])[address] [place] [address] Bilirubin [Mass/Vol] 0.3 mg/dL Normal <1.2 [facility] Comment on above: Performed By: #### L AB103, [id number], LAB17 ####Budget Clerk: CAROLE CID ([id number])[facility])[address] [place] [address] Calcium [Mass/Vol] 8.5 mg/dL Low 8.8-10.0 [facility] Comment on above: Performed By: #### L AB103, [id number], LAB17 ####Budget Clerk: CAROLE CID ([id number])[facility] ([facility])[address] [place] [address] Chloride [Moles/Vol] 108 mmol/L High 98-107 [facility] Comment on above: Performed By: #### L AB103, [id number], LAB17 ####Budget Clerk: CAROLE CID ([id number])[facility])[address] [place] [address] [place] CO2 [Moles/Vol] 25 mmol/L Normal 23-31 [facility] Comment on above: Performed By: #### L AB103, [id number], LAB17 ####Budget Clerk: CAROLE CID ([id number])[facility])[address] [place] [address] Creatinine [Mass/Vol] 0.47 mg/dL Low 0.57-1.11 [facility] Comment on above: Performed By: #### L AB103, [id number], LAB17 ####Budget Clerk: CAROLE CID ([id number])[facility])[address] [place] [address] [place] GLOMERULAR FILTRATION RATE ML/MIN/1.73 SQ M.PREDICTED >90.0 Normal >60.0 [facility] Comment on above: Result Comment: Calc ulation based on the Chronic Kidney Disease Epidemiology Collaboration (CKD-EPI) equation refit without adjustment for race Performed By: #### Mago AB103, [id number], LAB17 ####Budget Clerk: CAROLE CID ([id number])[facility])[address] [place] [address] Glucose [Mass/Vol] 120 mg/dL High 82-115 [facility] Comment on above: Performed By: #### Mago AB103, [id number], LAB17 ####Budget Clerk: CAROLE CID ([id number])[facility])[address] [place] [address] Potassium [Moles/Vol] 4.0 mmol/L Normal 3.5-5.1 [facility] Comment on above: Result Comment: [facility] potassium values may be up to 0.5 mmol/L lower than serum values. Performed By: #### Mago AB103, [id number], LAB17 ####Budget Clerk: CAROLE CID ([id number])[facility])[address] [place] [address] Protein [Mass/Vol] 5.6 g/dL Low 6.4-8.3 [facility] Comment on above: Performed By: #### Mago AB103, [id number], LAB17 ####Budget Clerk: CAROLE CID ([id number])[facility])[address] [place] [address] [place] Sodium [Moles/Vol] 138 mmol/L Normal 136-145 [facility] Comment on above: Performed By: #### L AB103, [id number], LAB17 ####Budget Clerk: CAROLE CID ([id number])[facility])[address] [place] [address] [place] Urea nitrogen [Mass/Vol] 16 mg/dL Normal 9-23 [facility] Comment on above: Performed By: #### L AB103, [id number], LAB17 ####Budget Clerk: CAROLE CID ([id number])[facility] ([address] Calcium.ionized [Moles/Vol]o n 12-30-2024 Calcium.ionized (Bld) [Moles/Vol] 4.2 mg/dL Low 4.30 - 5.20 mg/dL [facility] Interpretation and review of laboratory results Abnormal [facility] PH, IONIZED CALCIUM 7.55 High 7.31 - 7.46 [facility] Comprehensive metabolic 1998 panelon 12-30-2024 Albumin [Mass/Vol] 2.1 g/dL Low 3.4 - 4.8 g/dL [facility] ALP [Catalytic activity/Vol] 66 U/L 40 - 150 U/L [facility] ALT [Catalytic activity/Vol] 36 U/L High NINF - 30 U/L [facility] Anion gap [Moles/Vol] 5 mmol/L 3 - 13 mmol/L [facility] AST [Catalytic activity/Vol] 31 U/L NINF - 34 U/L [facility] Bilirubin [Mass/Vol] 0.3 mg/dL NINF - 1.2 mg/dL [facility] Calcium [Mass/Vol] 8.5 mg/dL Low 8.8 - 10. 0 mg/dL [facility] Chloride [Moles/Vol] 108 mmol/L High 98 - 10 7 mmol/L [facility] CO2 [Moles/Vol] 25 mmol/L 23 - 31 mmol/L [facility] Creatinine [Mass/Vol] 0.47 mg/dL Low 0.57 - 1.11 mg/dL [facility] GFR/1.73 sq M.predicted (S/P/Bld) [Vol rate/Area] - PINF [facility] Glucose [Mass/Vol] 120 mg/dL High 82 - 115 mg/dL [facility] Potassium [Moles/Vol] 4 mmol/L 3.5 - 5.1 mmol/L [facility] Protein [Mass/Vol] 5.6 g/dL Low 6.4 - 8.3 g/dL [facility] Sodium [Moles/Vol] 138 mmol/L 136 - 145 mmol/L [facility] Urea nitrogen [Mass/Vol] 16 mg/dL 9 - 23 mg/dL [facility] Laboratory - Chemistry and C hemistry - challengeon 12-30-2024 Magnesium [Mass/Vol] 2.1 mg/dL 1.6 - 2 .6 mg/dL [facility] MAGNESIUMon 12-30-2024 Magnesium [Mass/Vol] 2.1 mg/dL Normal 1.6-2.6 [facility] Comment on above: Result Comment: ANDRADE R COMMENTS:Higher values can be expected in females during menses. Performed By: #### L AB103, [id number], LAB17 ####Budget Clerk: CAROLE CID ([id number])[facility] ([facility])[address] [place] [address] [place] Magnesium [Mass/Vol]on 12-30 Interpretation and review of laboratory results Normal [facility] No Panel Informationon 12-30 [facility] Interpretation and review of laboratory results Abnormal [facility] No Panel InformationOrdered By: Samara Acevedo on 12-30-2024 [facility] Work Phone: Nursing Noteon 12-30-2024 Nursing Note Report called to 4N nurse at 1950 Normal [facility] PHOSPHORUSon 12-30-2024 Phosphate [Mass/Vol] 1.8 mg/dL Low 2.3-4.7 [facility] Comment on above: Performed By: #### L AB103, [id number], LAB17 ####Budget Clerk: CAROLE CID ([id number])[facility] ([facility])[address] [place] [address] [place] Phosphate [Moles/Vol]on Phosphate [Mass/Vol] 1.8 mg/dL Low 2.3 - 4 .7 mg/dL [facility] Progress Noteon 12-30-2024 Progress Note Normal [facility] Progress Note Normal [facility] Progress Note Normal [facility] XR CHEST 1 VIEWon 12-30-2024 XR CHEST 1 VIEW Normal [facility] XR Chest Single viewon 12-30 [facility] SYSTEM [facility] Radiology Study observation (narrative) [facility] 30on 12-29-2024 30 Normal [facility] CALCIUM, IONIZEDon 5 CALCIUM IONIZED 4.30 mg/dL Normal 4.30-5.20 [facility] Comment on above: Performed By: #### L [id number] ####Budget Clerk: CAROLE CID ([id number])[facility] [place] [address] PH, IONIZED CALCIUM 7.47 High 7.31-7.46 [facility] Comment on above: Performed By: #### L [id number] ####Budget Clerk: CAROLE CID ([id number])[facility] ([facility] [place] [address] CBC W Auto Differential pane l (Bld)on 12-29-2024 Basophils (Bld) [#/Vol] 0 10*3/uL 0.0 - 0.2 10*3/uL [facility] Basophils/100 WBC (Bld) 0.5 % 0.0 - 2.0 % [facility] Eosinophils (Bld) [#/Vol] 0.2 10*3/uL 0. 0 - 0.5 10*3/uL [facility] Eosinophils/100 WBC (Bld) 1.9 % 0. 0 - 6.0 % [facility] Erythrocyte distribution width (RBC) [Ratio] 15.5 % High 11.5 - 15.0 % [facility] Hematocrit (Bld) [Volume fraction] 25.3 % Low 35.0 - 47.0 % [facility] Hemoglobin (Bld) [Mass/Vol] 7.8 g/dL Low 11.7 - 16.0 g/dL [facility] Immature granulocytes (Bld) [#/Vol] 0.1 10*3/uL High NINF - 0.1 10*3/uL [facility] Immature granulocytes/100 WBC (Bld) 0.6 % 0.0 - 2.0 % [facility] Interpretation and review of laboratory results Abnormal [facility] Lymphocytes (Bld) [#/Vol] 1.9 10*3/uL 1. 0 - 4.3 10*3/uL [facility] Lymphocytes/100 WBC (Bld) 22.1 % 15 .0 - 45.0 % [facility] MCH (RBC) [Entitic mass] 28.4 pg 26. 0 - 34.0 pg [facility] MCHC (RBC) [Mass/Vol] 30.8 % 30.5 - 36.0 % [facility] MCV (RBC) [Entitic vol] 92 fL 77.0 - 99.0 fL [facility] Monocytes (Bld) [#/Vol] 1 10*3/uL High 0.0 - 0.9 10*3/uL [facility] Monocytes/100 WBC (Bld) 10.8 % 5.0 - 13.0 % [facility] Neutrophils (Bld) [#/Vol] 5.6 10*3/uL 1. 8 - 7.5 10*3/uL [facility] Neutrophils/100 WBC (Bld) 64.1 % 38 .0 - 82.0 % [facility] Nucleated RBC/100 WBC (Bld) [Ratio] 0 % [facility] Platelet mean volume (Bld) [Entitic vol] 9.9 fL 9.0 - 12.7 fL [facility] Platelets (Bld) [#/Vol] 481 10*3/uL High 140 - 440 10*3/uL [facility] RBC (Bld) [#/Vol] 2.75 10*6/uL Low 3.80 - 5.20 10*6/uL [facility] WBC (Bld) [#/Vol] 8.8 10*3/uL 3.6 - 10.7 10*3/uL [facility] CBC WITH AUTO DIFFERENTIALon 12-29-2024 Basophils (Bld) [#/Vol] 0.0 10*3/uL Normal 0.0-0.2 [facility] Comment on above: Performed By: #### L [id number] ####Budget Clerk: CAROLE CID ([id number])[facility] ([facility])[address] [place] [address] Basophils/100 WBC (Bld) 0.5 % Normal 0.0-2.0 [facility] Comment on above: Performed By: #### L [id number] ####Budget Clerk: CAROLE CID ([id number])[facility] ([facility])[address] [place] [address] Eosinophils (Bld) [#/Vol] 0.2 10*3/uL Normal 0.0-0.5 [facility] Comment on above: Performed By: #### L [id number] ####Budget Clerk: CAROLE CID ([id number])[facility])[address] [place] [address] Eosinophils/100 WBC (Bld) 1.9 % Normal 0.0-6.0 [facility] Comment on above: Performed By: #### L [id number] ####Budget Clerk: CRAOLE CID ([id number])[address] Erythrocyte distribution width (RBC) [Ratio] 15.5 % High 11.5-15.0 [facility] Comment on above: Performed By: #### L [id number] ####Budget Clerk: CAROLE CID ([id number])[address] Hematocrit (Bld) [Volume fraction] 25.3 % Low 35.0-47.0 [facility] Comment on above: Performed By: #### L [id number] ####Budget Clerk: CAROLE CID ([id number])[address] Hemoglobin (Bld) [Mass/Vol] 7.8 g/dL Low 11.7-16. 0 [facility] Comment on above: Performed By: #### L [id number] ####Budget Clerk: CAROLE CID ([id number])[facility])[address] [place] [address] IMMATURE GRANS % 0.6 % Normal 0.0-2.0 [facility] Comment on above: Performed By: #### L [id number] ####Budget Clerk: CAROLE CID ([id number])[address] IMMATURE GRANS ABSOLUTE 0.1 10*3/uL High <0.1 [facility] Comment on above: Performed By: #### L [id number] ####Budget Clerk: CAROLE CID ([id number])[facility])[address] [place] [address] Lymphocytes (Bld) [#/Vol] 1.9 10*3/uL Normal 1.0-4.3 [facility] Comment on above: Performed By: #### L [id number] ####Budget Clerk: CAROLE CID ([id number])[facility])[address] [place] [address] Lymphocytes/100 WBC (Bld) 22.1 % Normal 15.0-45.0 [facility] Comment on above: Performed By: #### L [id number] ####Budget Clerk: CAROLE CID ([id number])[facility])[address] [place] [address] MCH (RBC) [Entitic mass] 28.4 pg Normal 26.0-34.0 [facility] Comment on above: Performed By: #### L [id number] ####Budget Clerk: CAROLE CID ([id number])[facility])[address] [place] [address] MCHC 30.8 % Normal 30.5-36.0 [facility] Comment on above: Performed By: #### L [id number] ####Budget Clerk: CAROLE CID ([id number])[facility])[address] [place] [address] MCV (RBC) [Entitic vol] 92.0 fL Normal 77.0-99.0 S [facility] Comment on above: Performed By: #### L [id number] ####Budget Clerk: CAROLE CID ([id number])[facility])[address] [place] [address] Monocytes (Bld) [#/Vol] 1.0 10*3/uL High 0.0-0.9 [facility] Comment on above: Performed By: #### L [id number] ####Budget Clerk: CAROLE CID ([id number])[facility] ([facility] [place] [address] Monocytes/100 WBC (Bld) 10.8 % Normal 5.0-13.0 [facility] Comment on above: Performed By: #### L [id number] ####Budget Clerk: CAROLE CID ([id number])[facility] ([facility])[address] [place] [address] NEUTROPHILS ABSOLUTE 5.6 10*3/uL Normal 1.8-7.5 [facility] Comment on above: Performed By: #### L [id number] ####Budget Clerk: CAROLE CID ([id number])[facility] ([facility])[address] [place] [address] Neutrophils/100 WBC (Bld) 64.1 % Normal 38.0-82.0 [facility] Comment on above: Performed By: #### L [id number] ####Budget Clerk: CAROLE CID ([id number])[facility] ([facility])[address] [place] [address] NRBC 0.0 /100 WBCs Normal 0.0-2.0 [facility] Comment on above: Performed By: #### L [id number] ####Budget Clerk: CAROLE CID ([id number])[facility] ([facility])[address] [place] [address] Platelet mean volume (Bld) [Entitic vol] 9.9 fL Normal 9.0-12.7 [facility] Comment on above: Performed By: #### L [id number] ####Budget Clerk: CAROLE CID ([id number])[facility] ([facility])[address] [place] [address] [place] Platelets (Bld) [#/Vol] 481 10*3/uL High 140-440 [facility] Comment on above: Performed By: #### L [id number] ####Budget Clerk: CAROLE CID ([id number])[facility] ([facility])[address] [place] [address] [place] RBC (Bld) [#/Vol] 2.75 10*6/uL Low 3.80-5.20 [facility] Comment on above: Performed By: #### L [id number] ####Budget Clerk: CAROLE CID ([id number])[facility] ([facility])[address] [place] [address] WBC (Bld) [#/Vol] 8.8 10*3/uL Normal 3.6-10.7 [facility] Comment on above: Performed By: #### Mago [id number] ####Budget Clerk: CAROLE CID ([id number])[facility] ([facility])[address] [place] [address] COMPREHENSIVE METABOLIC PANE Demetris 12-29-2024 Albumin [Mass/Vol] 2.1 g/dL Low 3.4-4.8 [facility] Comment on above: Performed By: #### Mago GALICIA, LAB17, [id number] ####Budget Clerk: CAROLE CID ([id number])[facility] ([facility])[address] [place] [address] ALP [Catalytic activity/Vol] 72 U/L Normal 40-150 [facility] Comment on above: Performed By: #### Mago GALICIA, LAB17, [id number] ####Budget Clerk: CAROLE CID ([id number])[facility] ([facility])[address] [place] [address] ALT [Catalytic activity/Vol] 43 U/L High <30 [facility] Comment on above: Performed By: #### Mago ABOri, LAB17, [id number] ####Budget Clerk: CAROLE CID ([id number])[facility] ([facility])[address] [place] [address] Anion gap [Moles/Vol] 6 mmol/L Normal 3-13 [facility] Comment on above: Performed By: #### L AB103, LAB17, [id number] ####Budget Clerk: CAROLE CID ([id number])[facility] ([facility])[address] [place] [address] AST [Catalytic activity/Vol] 41 U/L High <34 [facility] Comment on above: Performed By: #### Mago GALICIA, LAB17, [id number] ####Budget Clerk: CAROLE CID ([id number])[facility])[address] [place] [address] Bilirubin [Mass/Vol] 0.4 mg/dL Normal <1.2 [facility] Comment on above: Performed By: #### Mago GALICIA, LAB17, [id number] ####Budget Clerk: CAROLE CID ([id number])[facility] ([facility])[address] [place] [address] Calcium [Mass/Vol] 8.6 mg/dL Low 8.8-10.0 [facility] Comment on above: Performed By: #### Mago GALICIA, LAB17, [id number] ####Budget Clerk: CAROLE CID ([id number])[facility] ([facility])[address] [place] [address] Chloride [Moles/Vol] 108 mmol/L High 98-107 [facility] Comment on above: Performed By: #### Mago GALICIA, LAB17, [id number] ####Budget Clerk: CAROLE CID ([id number])[facility] ([facility])[address] [place] [address] CO2 [Moles/Vol] 25 mmol/L Normal 23-31 [facility] Comment on above: Performed By: #### Mago GALICIA, LAB17, [id number] ####Budget Clerk: CAROLE CID ([id number])[facility])[address] [place] [address] Creatinine [Mass/Vol] 0.47 mg/dL Low 0.57-1.11 [facility] Comment on above: Performed By: #### Mago GALICIA, LAB17, [id number] ####Budget Clerk: CAROLE CID ([id number])[facility])[address] [place] [address] GLOMERULAR FILTRATION RATE ML/MIN/1.73 SQ M.PREDICTED >90.0 Normal >60.0 [facility] Comment on above: Result Comment: Calc ulation based on the Chronic Kidney Disease Epidemiology Collaboration (CKD-EPI) equation refit without adjustment for race Performed By: #### Mago GALICIA, LAB17, [id number] ####Budget Clerk: CAROLE CID ([id number])[facility])[address] [place] [address] Glucose [Mass/Vol] 108 mg/dL Normal 82-115 [facility] Comment on above: Performed By: #### Mago GALICIA, LAB17, [id number] ####Budget Clerk: CAROLE CID ([id number])[facility])[address] [place] [address] Potassium [Moles/Vol] 4.1 mmol/L Normal 3.5-5.1 [facility] Comment on above: Result Comment: [facility] potassium values may be up to 0.5 mmol/L lower than serum values. Performed By: #### Mago GALICIA, LAB17, [id number] ####Budget Clerk: CAROLE CID ([id number])[facility] ([facility])[address] [place] [address] Protein [Mass/Vol] 5.7 g/dL Low 6.4-8.3 [facility] Comment on above: Performed By: #### Mago GALICIA, LAB17, [id number] ####Budget Clerk: CAROLE CID ([id number])[facility])[address] [place] [address] [place] Sodium [Moles/Vol] 139 mmol/L Normal 136-145 [facility] Comment on above: Performed By: #### Mago GALICIA, LAB17, [id number] ####Budget Clerk: CAROLE CID ([id number])[facility])[address] [place] [address] Urea nitrogen [Mass/Vol] 12 mg/dL Normal 9-23 [facility] Comment on above: Performed By: #### Mago ABOri, LAB17, [id number] ####Budget Clerk: CAROLE CID ([id number])[facility])[address] [place] [address] [place] Calcium.ionized [Moles/Vol]O rdered By: Zachary Bautista on 12-29-2024 Calcium.ionized (Bld) [Moles/Vol] 4.3 mg/dL 4.30 - 5.20 mg/dL [facility] Interpretation and review of laboratory results Abnormal [facility] PH, IONIZED CALCIUM 7.47 High 7.31 - 7.46 [facility] Comprehensive metabolic 1998 panelon 12-29-2024 Albumin [Mass/Vol] 2.1 g/dL Low 3.4 - 4.8 g/dL [facility] ALP [Catalytic activity/Vol] 72 U/L 40 - 150 U/L [facility] ALT [Catalytic activity/Vol] 43 U/L High NINF - 30 U/L [facility] Anion gap [Moles/Vol] 6 mmol/L 3 - 13 mmol/L [facility] AST [Catalytic activity/Vol] 41 U/L High NINF - 34 U/L [facility] Bilirubin [Mass/Vol] 0.4 mg/dL NINF - 1.2 mg/dL [facility] Calcium [Mass/Vol] 8.6 mg/dL Low 8.8 - 10. 0 mg/dL [facility] Chloride [Moles/Vol] 108 mmol/L High 98 - 10 7 mmol/L [facility] CO2 [Moles/Vol] 25 mmol/L 23 - 31 mmol/L [facility] Creatinine [Mass/Vol] 0.47 mg/dL Low 0.57 - 1.11 mg/dL [facility] GFR/1.73 sq M.predicted (S/P/Bld) [Vol rate/Area] - PINF [facility] Glucose [Mass/Vol] 108 mg/dL 82 - 115 mg/dL [facility] Interpretation and review of laboratory results Abnormal [facility] Potassium [Moles/Vol] 4.1 mmol/L 3.5 - 5.1 mmol/L [facility] Protein [Mass/Vol] 5.7 g/dL Low 6.4 - 8.3 g/dL [facility] Sodium [Moles/Vol] 139 mmol/L 136 - 145 mmol/L [facility] Urea nitrogen [Mass/Vol] 12 mg/dL 9 - 23 mg/dL [facility] Laboratory - Chemistry and C hemistry - challengeon 12-29-2024 Magnesium [Mass/Vol] 2 mg/dL 1.6 - 2 .6 mg/dL [facility] MAGNESIUMon 12-29-2024 Magnesium [Mass/Vol] 2.0 mg/dL Normal 1.6-2.6 [facility] Comment on above: Result Comment: ANDRADE Rosario COMMENTS:Higher values can be expected in females during menses. Performed By: #### L AB103, LAB17, [id number] ####Budget Clerk: CAROLE CID ([id number])[facility] ([facility])[address] [place] [address] Magnesium [Mass/Vol]on 12-29 [facility] No Panel Informationon 12-29 Interpretation and review of laboratory results Normal [facility] PHOSPHORUSon 12-29-2024 Phosphate [Mass/Vol] 2.4 mg/dL Normal 2.3-4.7 [facility] Comment on above: Performed By: #### L AB103, LAB17, [id number] ####Budget Clerk: CAROLE CID ([id number])[facility] ([facility])[address] [place] [address] Phosphate [Moles/Vol]on Phosphate [Mass/Vol] 2.4 mg/dL 2.3 - 4 .7 mg/dL [facility] Progress Noteon 12-29-2024 Progress Note Normal [facility] Progress Note Normal [facility] Progress Note Speech-Language Pathology Patient is not able to achieve alertness adequate to participate with ST. Following messages to provider, ST to sign-off at this time secondary to lack of progress and presence of PEG. Margarette Calix MA CCC-CEILING INSULATION BLOWER Normal [facility] Progress Note Normal [facility] Progress Note Normal [facility] Progress Note Vancomycin therapy h as been discontinued by Dr Carver on 12/29/24. Thank you for the consult. Pharmacy signing off for vancomycin dosing. Noni Weinberg formerly [facility], PharmD Date: 12/29/24 Time: 8:01 AM Normal [facility] Progress Note Normal [facility] [id number] 12-28-2024 [id number] Normal [facility] [id number] Patient remains in T 2, pulmonary consult pending. Patient will need PT/OT evals to start auth at [facility], tasked therapy to see patient. CM to follow. . Normal [facility] Bacteria identified Aer cx N om (Lower resp)on 12-28-2024 Gram Stain Result Moderate Polymorphonuclear leukocytes per low power field Abnormal [facility] Gram Stain Result Moderate Epithelial cells per low power field Abnormal [facility] Gram Stain Result Positive Abnormal [facility] Gram Stain Result Rare Yeast Abnormal [facility] Interpretation and review of laboratory results Abnormal [facility] CALCIUM, IONIZEDon CALCIUM IONIZED 4.00 mg/dL Low 4.30-5.20 [facility] Comment on above: Performed By: #### L [id number] ####Budget Clerk: CAROLE CID ([id number])[address] PH, IONIZED CALCIUM 7.48 High 7.31-7.46 [facility] Comment on above: Performed By: #### L AB54 ####Budget Clerk: CAROLE CID ([id number])[address] CBC W Auto Differential pane l (Bld)on 12-28-2024 Basophils (Bld) [#/Vol] 0.1 10*3/uL 0.0 - 0.2 10*3/uL [facility] Basophils/100 WBC (Bld) 0.5 % 0.0 - 2.0 % [facility] Eosinophils (Bld) [#/Vol] 0.1 10*3/uL 0. 0 - 0.5 10*3/uL [facility] Eosinophils/100 WBC (Bld) 0.6 % 0. 0 - 6.0 % [facility] Erythrocyte distribution width (RBC) [Ratio] 15.7 % High 11.5 - 15.0 % [facility] Hematocrit (Bld) [Volume fraction] 27.5 % Low 35.0 - 47.0 % [facility] Hemoglobin (Bld) [Mass/Vol] 8.7 g/dL Low 11.7 - 16.0 g/dL [facility] Immature granulocytes (Bld) [#/Vol] 0.1 10*3/uL High NINF - 0.1 10*3/uL [facility] Immature granulocytes/100 WBC (Bld) 0.6 % 0.0 - 2.0 % [facility] Interpretation and review of laboratory results Abnormal [facility] Lymphocytes (Bld) [#/Vol] 1.8 10*3/uL 1. 0 - 4.3 10*3/uL [facility] Lymphocytes/100 WBC (Bld) 16.8 % 15 .0 - 45.0 % [facility] MCH (RBC) [Entitic mass] 28.9 pg 26. 0 - 34.0 pg [facility] MCHC (RBC) [Mass/Vol] 31.6 % 30.5 - 36.0 % [facility] MCV (RBC) [Entitic vol] 91.4 fL 77.0 - 99.0 fL [facility] Monocytes (Bld) [#/Vol] 1.1 10*3/uL High 0.0 - 0.9 10*3/uL [facility] Monocytes/100 WBC (Bld) 9.8 % 5.0 - 13.0 % [facility] Neutrophils (Bld) [#/Vol] 7.8 10*3/uL High 1. 8 - 7.5 10*3/uL [facility] Neutrophils/100 WBC (Bld) 71.7 % 38 .0 - 82.0 % [facility] Nucleated RBC/100 WBC (Bld) [Ratio] 0 % [facility] Platelet mean volume (Bld) [Entitic vol] 10.2 fL 9.0 - 12.7 fL [facility] Platelets (Bld) [#/Vol] 434 10*3/uL 140 - 440 10*3/uL [facility] RBC (Bld) [#/Vol] 3.01 10*6/uL Low 3.80 - 5.20 10*6/uL [facility] WBC (Bld) [#/Vol] 10.8 10*3/uL High 3.6 - 10.7 10*3/uL [facility] CBC WITH AUTO DIFFERENTIALon 12-28-2024 Basophils (Bld) [#/Vol] 0.1 10*3/uL Normal 0.0-0.2 [facility] Comment on above: Performed By: #### L [id number] ####Budget Clerk: CAROLE CID ([id number])[facility])[address] [place] [address] Basophils/100 WBC (Bld) 0.5 % Normal 0.0-2.0 [facility] Comment on above: Performed By: #### L [id number] ####Budget Clerk: CAROLE CID ([id number])[facility])[address] [place] [address] Eosinophils (Bld) [#/Vol] 0.1 10*3/uL Normal 0.0-0.5 [facility] Comment on above: Performed By: #### L [id number] ####Budget Clerk: CAROLE CID ([id number])[facility])[address] [place] [address] Eosinophils/100 WBC (Bld) 0.6 % Normal 0.0-6.0 [facility] Comment on above: Performed By: #### L [id number] ####Budget Clerk: CAROLE CID ([id number])[facility])[address] [place] [address] Erythrocyte distribution width (RBC) [Ratio] 15.7 % High 11.5-15.0 [facility] Comment on above: Performed By: #### L [id number] ####Budget Clerk: CAROLE CID ([id number])[facility])[address] [place] [address] Hematocrit (Bld) [Volume fraction] 27.5 % Low 35.0-47.0 [facility] Comment on above: Performed By: #### L [id number] ####Budget Clerk: CAROLE CID ([id number])[facility])[address] [place] [address] Hemoglobin (Bld) [Mass/Vol] 8.7 g/dL Low 11.7-16. 0 [facility] Comment on above: Performed By: #### L [id number] ####Budget Clerk: CAROLE CID ([id number])[facility])[address] [place] [address] IMMATURE GRANS % 0.6 % Normal 0.0-2.0 [facility] Comment on above: Performed By: #### L [id number] ####Budget Clerk: CAROLE CID ([id number])[facility])[address] [place] [address] IMMATURE GRANS ABSOLUTE 0.1 10*3/uL High <0.1 [facility] Comment on above: Performed By: #### L [id number] ####Budget Clerk: CAROLE CID ([id number])[facility])[address] [place] [address] Lymphocytes (Bld) [#/Vol] 1.8 10*3/uL Normal 1.0-4.3 [facility] Comment on above: Performed By: #### L [id number] ####Budget Clerk: CAROLE CID ([id number])[facility])[address] [place] [address] Lymphocytes/100 WBC (Bld) 16.8 % Normal 15.0-45.0 [facility] Comment on above: Performed By: #### L [id number] ####Budget Clerk: CAROLE CID ([id number])[facility])[address] [place] [address] MCH (RBC) [Entitic mass] 28.9 pg Normal 26.0-34.0 [facility] Comment on above: Performed By: #### L [id number] ####Budget Clerk: CAROLE CID ([id number])[facility])[address] [place] [address] MCHC 31.6 % Normal 30.5-36.0 [facility] Comment on above: Performed By: #### L [id number] ####Budget Clerk: CAROLE CID ([id number])[facility])[address] [place] [address] MCV (RBC) [Entitic vol] 91.4 fL Normal 77.0-99.0 [facility] Comment on above: Performed By: #### L [id number] ####Budget Clerk: CAROLE CID ([id number])[facility] ([facility])[address] [place] [address] Monocytes (Bld) [#/Vol] 1.1 10*3/uL High 0.0-0.9 [facility] Comment on above: Performed By: #### L [id number] ####Budget Clerk: CAROLE CID ([id number])[facility] ([facility])[address] [place] [address] Monocytes/100 WBC (Bld) 9.8 % Normal 5.0-13.0 [facility] Comment on above: Performed By: #### L [id number] ####Budget Clerk: CAROLE CID ([id number])[facility] ([facility])[address] [place] [address] NEUTROPHILS ABSOLUTE 7.8 10*3/uL High 1.8-7.5 [facility] Comment on above: Performed By: #### L [id number] ####Budget Clerk: CAROLE CID ([id number])[facility])[address] [place] [address] Neutrophils/100 WBC (Bld) 71.7 % Normal 38.0-82.0 [facility] Comment on above: Performed By: #### L [id number] ####Budget Clerk: CAROLE CID ([id number])[facility] ([facility])[address] [place] [address] NRBC 0.0 /100 WBCs Normal 0.0-2.0 [facility] Comment on above: Performed By: #### L [id number] ####Budget Clerk: CAROLE CID ([id number])[facility] ([facility])[address] [place] [address] Platelet mean volume (Bld) [Entitic vol] 10.2 fL Normal 9.0-12.7 [facility] Comment on above: Performed By: #### L [id number] ####Budget Clerk: CAROLE CID ([id number])[facility] ([facility])[address] [place] [address] Platelets (Bld) [#/Vol] 434 10*3/uL Normal 140-440 [facility] Comment on above: Performed By: #### L [id number] ####Budget Clerk: CAROLE CID ([id number])[facility] ([facility])[address] [place] [address] RBC (Bld) [#/Vol] 3.01 10*6/uL Low 3.80-5.20 [facility] Comment on above: Performed By: #### L [id number] ####Budget Clerk: CAROLE CID ([id number])[facility] ([facility])[address] [place] [address] WBC (Bld) [#/Vol] 10.8 10*3/uL High 3.6-10.7 [facility] Comment on above: Performed By: #### L [id number] ####Budget Clerk: CARLOE CID ([id number])[facility] ([facility])[address] [place] [address] COMPREHENSIVE METABOLIC PANE Demetris 12-28-2024 Albumin [Mass/Vol] 2.0 g/dL Low 3.4-4.8 [facility] Comment on above: Performed By: #### Mago GALICIA LAB17 ####Budget Clerk: CAROLE CID ([id number])[facility] ([facility])[address] [place] [address] ALP [Catalytic activity/Vol] 73 U/L Normal 40-150 [facility] Comment on above: Performed By: #### Mago GALICIA LAB17 ####Budget Clerk: CAROLE CID ([id number])[facility])[address] [place] [address] ALT [Catalytic activity/Vol] 41 U/L High <30 [facility] Comment on above: Performed By: #### L AB103, LAB17 ####Budget Clerk: CAROLE CID ([id number])[facility] ([facility])[address] Anion gap [Moles/Vol] 8 mmol/L Normal 3-13 [facility] Comment on above: Performed By: #### L AB103, LAB17 ####Budget Clerk: CAROLE CID ([id number])[facility] ([facility])[address] [place] [address] [place] AST [Catalytic activity/Vol] 44 U/L High <34 [facility] Comment on above: Performed By: #### L AB103, LAB17 ####Budget Clerk: CAROLE CID ([id number])[facility] ([facility])[address] [place] [address] Bilirubin [Mass/Vol] 0.5 mg/dL Normal <1.2 [facility] Comment on above: Performed By: #### L AB103, LAB17 ####Budget Clerk: CAROLE CID ([id number])[facility] ([facility])[address] [place] [address] Calcium [Mass/Vol] 8.3 mg/dL Low 8.8-10.0 [facility] Comment on above: Performed By: #### L AB103, LAB17 ####Budget Clerk: CAROLE CID ([id number])[facility] ([facility])[address] [place] [address] [place] Chloride [Moles/Vol] 106 mmol/L Normal 98-107 [facility] Comment on above: Performed By: #### L AB103, LAB17 ####Budget Clerk: CAROLE CID ([id number])[facility] ([facility])[address] [place] [address] [place] CO2 [Moles/Vol] 21 mmol/L Low 23-31 [facility] Comment on above: Performed By: #### L AB103, LAB17 ####Budget Clerk: CAROLE CID ([id number])[facility] ([facility])[address] [place] [address] [place] Creatinine [Mass/Vol] 0.46 mg/dL Low 0.57-1.11 [facility] Comment on above: Performed By: #### L AB103, LAB17 ####Budget Clerk: CAROLE CID ([id number])[facility])[address] [place] [address] GLOMERULAR FILTRATION RATE ML/MIN/1.73 SQ M.PREDICTED >90.0 Normal >60.0 [facility] Comment on above: Result Comment: Calc ulation based on the Chronic Kidney Disease Epidemiology Collaboration (CKD-EPI) equation refit without adjustment for race Performed By: #### L AB103, LAB17 ####Budget Clerk: CAROLE CID ([id number])[address] Glucose [Mass/Vol] 106 mg/dL Normal 82-115 [facility] Comment on above: Performed By: #### L 103, LAB17 ####Budget Clerk: CAROLE CID ([id number])[facility])[address] [place] [address] Potassium [Moles/Vol] 3.8 mmol/L Normal 3.5-5.1 [facility] Comment on above: Result Comment: [facility] potassium values may be up to 0.5 mmol/L lower than serum values. Performed By: #### L AB103, LAB17 ####Budget Clerk: CAROLE CID ([id number])[facility])[address] [place] [address] Protein [Mass/Vol] 5.5 g/dL Low 6.4-8.3 [facility] Comment on above: Performed By: #### L AB103, LAB17 ####Budget Clerk: CAROLE CID ([id number])[address] Sodium [Moles/Vol] 135 mmol/L Low 136-145 [facility] Comment on above: Performed By: #### L AB103, LAB17 ####Budget Clerk: CAROLE [id number])[facility] [place] [address] Urea nitrogen [Mass/Vol] 16 mg/dL Normal 9-23 [facility] Comment on above: Performed By: #### L AB103, LAB17 ####Budget Clerk: CAROLE CID ([id number])[facility] ([facility])[address] [place] [address] Calcium.ionized [Moles/Vol]o n 12-28-2024 Calcium.ionized (Bld) [Moles/Vol] 4 mg/dL Low 4.30 - 5.20 mg/dL [facility] Interpretation and review of laboratory results Abnormal [facility] PH, IONIZED CALCIUM 7.48 High 7.31 - 7.46 [facility] Comprehensive metabolic 1998 panelon 12-28-2024 Albumin [Mass/Vol] 2 g/dL Low 3.4 - 4.8 g/dL [facility] ALP [Catalytic activity/Vol] 73 U/L 40 - 150 U/L [facility] ALT [Catalytic activity/Vol] 41 U/L [facility] Anion gap [Moles/Vol] 8 mmol/L 3 - 13 mmol/L [facility] AST [Catalytic activity/Vol] 44 U/L High [facility] - 34 U/L [facility] Bilirubin [Mass/Vol] 0.5 mg/dL [facility] - 1.2 mg/dL [facility] Calcium [Mass/Vol] 8.3 mg/dL Low 8.8 - 10. 0 mg/dL [facility] Chloride [Moles/Vol] 106 mmol/L 98 - 10 7 mmol/L [facility] CO2 [Moles/Vol] 21 mmol/L Low 23 - 31 mmol/L [facility] Creatinine [Mass/Vol] 0.46 mg/dL Low 0.57 - 1.11 mg/dL [facility] GFR/1.73 sq M.predicted (S/P/Bld) [Vol rate/Area] - PINF [facility] Glucose [Mass/Vol] 106 mg/dL 82 - 115 mg/dL [facility] Interpretation and review of laboratory results Abnormal [facility] Potassium [Moles/Vol] 3.8 mmol/L 3.5 - 5.1 mmol/L [facility] Protein [Mass/Vol] 5.5 g/dL Low 6.4 - 8.3 g/dL [facility] Sodium [Moles/Vol] 135 mmol/L Low 136 - 145 mmol/L [facility] Urea nitrogen [Mass/Vol] 16 mg/dL 9 - 23 mg/dL [facility] Consulton 12-28-2024 Consult Normal [facility] Laboratory - Chemistry and C hemistry - challengeon 12-28-2024 Magnesium [Mass/Vol] 1.9 mg/dL 1.6 - 2 .6 mg/dL [facility] Laboratory - Drug toxicology on 12-28-2024 Vancomycin [Mass/Vol] 16.5 ug/mL [facility] Laboratory - Microbiology an d Antimicrobial susceptibilityon 12-28-2024 Bacteria identified Aer cx Nom (Lower resp) Moderate respiratory reba present. [facility] MAGNESIUMon 12-28-2024 Magnesium [Mass/Vol] 1.9 mg/dL Normal 1.6-2.6 [facility] Comment on above: Result Comment: ORDE R COMMENTS:Higher values can be expected in females during menses. Performed By: #### L AB103, LAB17 ####Budget Clerk: CAROLE CID ([id number])[facility] ([facility])[address] [place] [address] Magnesium [Mass/Vol]on 12-28 Interpretation and review of laboratory results Normal [facility] No Panel Informationon 12-28 [facility] Progress Noteon 12-28-2024 Progress Note Normal [facility] Progress Note Normal [facility] Progress Note Normal [facility] VANCOMYCIN, RANDOMon 025 VANCOMYCIN 16.5 ug/mL Normal [facility] Comment on above: Result Comment: ORDE R COMMENTS:Toxicity is seen at concentrations >80-100 ug/mLTherapeutic (Peak) range: 20-40Therapeutic (Trough) range: 5-10 Performed By: #### L [id number] ####Budget Clerk: CAROLE CID ([id number])[facility] [facility])[address] [place], [place] [id number] [place] [id number] 12-27-2024 [id number] Normal [facility] Bacteria identified Cx Nom ( U)Ordered By: Laura Suárez on 12-27-2024 [facility] CALCIUM, IONIZEDon CALCIUM IONIZED 4.10 mg/dL Low 4.30-5.20 [facility] Comment on above: Performed By: #### L [id number] ####Budget Clerk: CAROLE CID ([id number])[facility] ([facility])[address] [place] [address] PH, IONIZED CALCIUM 7.42 Normal 7.31-7.46 [facility] Comment on above: Performed By: #### L [id number] ####Budget Clerk: CAROLE CID ([id number])[facility] ([facility])[address] [place] [address] CBC W Auto Differential pane l (Bld)on 12-27-2024 Basophils (Bld) [#/Vol] 0.1 10*3/uL 0.0 - 0.2 10*3/uL [facility] Basophils/100 WBC (Bld) 0.5 % 0.0 - 2.0 % [facility] Eosinophils (Bld) [#/Vol] 0.1 10*3/uL 0. 0 - 0.5 10*3/uL [facility] Eosinophils/100 WBC (Bld) 0.9 % 0. 0 - 6.0 % [facility] Erythrocyte distribution width (RBC) [Ratio] 15.9 % High 11.5 - 15.0 % [facility] Hematocrit (Bld) [Volume fraction] 28.5 % Low 35.0 - 47.0 % [facility] Hemoglobin (Bld) [Mass/Vol] 8.8 g/dL Low 11.7 - 16.0 g/dL [facility] Immature granulocytes (Bld) [#/Vol] 0.1 10*3/uL High NINF - 0.1 10*3/uL [facility] Immature granulocytes/100 WBC (Bld) 0.7 % 0.0 - 2.0 % [facility] Interpretation and review of laboratory results Abnormal [facility] Lymphocytes (Bld) [#/Vol] 2.1 10*3/uL 1. 0 - 4.3 10*3/uL [facility] Lymphocytes/100 WBC (Bld) 18.3 % 15 .0 - 45.0 % [facility] MCH (RBC) [Entitic mass] 28.8 pg 26. 0 - 34.0 pg [facility] MCHC (RBC) [Mass/Vol] 30.9 % 30.5 - 36.0 % [facility] MCV (RBC) [Entitic vol] 93.1 fL 77.0 - 99.0 fL [facility] Monocytes (Bld) [#/Vol] 1.2 10*3/uL High 0.0 - 0.9 10*3/uL [facility] Monocytes/100 WBC (Bld) 10.6 % 5.0 - 13.0 % [facility] Neutrophils (Bld) [#/Vol] 7.9 10*3/uL High 1. 8 - 7.5 10*3/uL [facility] Neutrophils/100 WBC (Bld) 69 % 38 .0 - 82.0 % [facility] Nucleated RBC/100 WBC (Bld) [Ratio] 0 % [facility] Platelet mean volume (Bld) [Entitic vol] 9.9 fL 9.0 - 12.7 fL [facility] Platelets (Bld) [#/Vol] 410 10*3/uL 140 - 440 10*3/uL [facility] RBC (Bld) [#/Vol] 3.06 10*6/uL Low 3.80 - 5.20 10*6/uL [facility] WBC (Bld) [#/Vol] 11.5 10*3/uL High 3.6 - 10.7 10*3/uL [facility] CBC WITH AUTO DIFFERENTIALon 12-27-2024 Basophils (Bld) [#/Vol] 0.1 10*3/uL Normal 0.0-0.2 [facility] Comment on above: Performed By: #### L [id number] ####Budget Clerk: CAROLE CID ([id number])[facility] ([facility])[address] [place] [address] Basophils/100 WBC (Bld) 0.5 % Normal 0.0-2.0 S [facility] Comment on above: Performed By: #### L [id number] ####Budget Clerk: CAROLE CID ([id number])[facility] Eosinophils (Bld) [#/Vol] 0.1 10*3/uL Normal 0.0-0.5 [facility] Comment on above: Performed By: #### L [id number] ####Budget Clerk: CAROLE CID ([id number])[facility])[address] [place] [address] Eosinophils/100 WBC (Bld) 0.9 % Normal 0.0-6.0 [facility] Comment on above: Performed By: #### L [id number] ####Budget Clerk: CAROLE CID ([id number])[address] Erythrocyte distribution width (RBC) [Ratio] 15.9 % High 11.5-15.0 [facility] Comment on above: Performed By: #### L [id number] ####Budget Clerk: CAROLE CID ([id number])[address] Hematocrit (Bld) [Volume fraction] 28.5 % Low 35.0-47.0 [facility] Comment on above: Performed By: #### L [id number] ####Budget Clerk: CAROLE CID ([id number])[address] Hemoglobin (Bld) [Mass/Vol] 8.8 g/dL Low 11.7-16. 0 [facility] Comment on above: Performed By: #### L [id number] ####Budget Clerk: CAROLE CID ([id number])[address] IMMATURE GRANS % 0.7 % Normal 0.0-2.0 [facility] Comment on above: Performed By: #### L [id number] ####Budget Clerk: CAROLE CID ([id number])[address] IMMATURE GRANS ABSOLUTE 0.1 10*3/uL High <0.1 [facility] Comment on above: Performed By: #### L [id number] ####Budget Clerk: CAROLE CID ([id number])[facility])[address] [place] [address] Lymphocytes (Bld) [#/Vol] 2.1 10*3/uL Normal 1.0-4.3 [facility] Comment on above: Performed By: #### L [id number] ####Budget Clerk: CAROLE CID ([id number])[facility])[address] [place] [address] Lymphocytes/100 WBC (Bld) 18.3 % Normal 15.0-45.0 [facility] Comment on above: Performed By: #### L [id number] ####Budget Clerk: CAROLE CID ([id number])[facility])[address] [place] [address] MCH (RBC) [Entitic mass] 28.8 pg Normal 26.0-34.0 [facility] Comment on above: Performed By: #### L [id number] ####Budget Clerk: CAROLE CID ([id number])[facility])[address] [place] [address] MCHC 30.9 % Normal 30.5-36.0 [facility] Comment on above: Performed By: #### L [id number] ####Budget Clerk: CAROLE CID ([id number])[facility])[address] [place] [address] MCV (RBC) [Entitic vol] 93.1 fL Normal 77.0-99.0 S [facility] Comment on above: Performed By: #### L [id number] ####Budget Clerk: CAROLE CID ([id number])[facility])[address] [place] [address] Monocytes (Bld) [#/Vol] 1.2 10*3/uL High 0.0-0.9 [facility] Comment on above: Performed By: #### L [id number] ####Budget Clerk: CAROLE CID ([id number])[facility] ([facility])[address] [place] [address] [place] Monocytes/100 WBC (Bld) 10.6 % Normal 5.0-13.0 [facility] Comment on above: Performed By: #### L [id number] ####Budget Clerk: CAROLE CID ([id number])[facility] ([facility])[address] [place] [address] NEUTROPHILS ABSOLUTE 7.9 10*3/uL High 1.8-7.5 [facility] Comment on above: Performed By: #### L [id number] ####Budget Clerk: CAROLE CID ([id number])[facility] ([facility])[address] [place] [address] Neutrophils/100 WBC (Bld) 69.0 % Normal 38.0-82.0 [facility] Comment on above: Performed By: #### L [id number] ####Budget Clerk: CAROLE CID ([id number])[facility] ([facility])[address] [place] [address] NRBC 0.0 /100 WBCs Normal 0.0-2.0 [facility] Comment on above: Performed By: #### L [id number] ####Budget Clerk: CAROLE CID ([id number])[facility] ([facility])[address] [place] [address] Platelet mean volume (Bld) [Entitic vol] 9.9 fL Normal 9.0-12.7 [facility] Comment on above: Performed By: #### L [id number] ####Budget Clerk: CAROLE CID ([id number])[facility] ([facility])[address] [place] [address] [place] Platelets (Bld) [#/Vol] 410 10*3/uL Normal 140-440 [facility] Comment on above: Performed By: #### L [id number] ####Budget Clerk: CAROLE CID ([id number])[facility] ([facility])[address] [place] [address] RBC (Bld) [#/Vol] 3.06 10*6/uL Low 3.80-5.20 [facility] Comment on above: Performed By: #### L [id number] ####Budget Clerk: CAROLE CID ([id number])[facility])[address] [place] [address] WBC (Bld) [#/Vol] 11.5 10*3/uL High 3.6-10.7 [facility] Comment on above: Performed By: #### L [id number] ####Budget Clerk: CAROLE CID ([id number])[facility])[address] [place] [address] COMPREHENSIVE METABOLIC PANE Demetris 12-27-2024 Albumin [Mass/Vol] 2.0 g/dL Low 3.4-4.8 [facility] Comment on above: Performed By: #### L [id number], [id number] ####Budget Clerk: CAROLE CID ([id number])[facility] ([facility])[address] [place] [address] ALP [Catalytic activity/Vol] 67 U/L Normal 40-150 [facility] Comment on above: Performed By: #### L [id number], [id number] ####Budget Clerk: CAROLE CID ([id number])[facility])[address] [place] [address] ALT [Catalytic activity/Vol] 30 U/L High <30 [facility] Comment on above: Performed By: #### L [id number], [id number] ####Budget Clerk: CAROLE CID ([id number])[facility] ([facility])[address] [place] [address] Anion gap [Moles/Vol] 7 mmol/L Normal 3-13 [facility] Comment on above: Performed By: #### L [id number], [id number] ####Budget Clerk: CAROLE CID ([id number])[facility])[address] [place] [address] AST [Catalytic activity/Vol] 42 U/L High <34 [facility] Comment on above: Performed By: #### L [id number], [id number] ####Budget Clerk: CAROLE CID ([id number])[facility])[address] [place] [address] Bilirubin [Mass/Vol] 0.4 mg/dL Normal <1.2 [facility] Comment on above: Performed By: #### L [id number], [id number] ####Budget Clerk: CAROLE CID ([id number])[facility])[address] [place] [address] Calcium [Mass/Vol] 8.3 mg/dL Low 8.8-10.0 [facility] Comment on above: Performed By: #### L [id number], [id number] ####Budget Clerk: CAROLE CID ([id number])[facility])[address] [place] [address] Chloride [Moles/Vol] 107 mmol/L Normal 98-107 [facility] Comment on above: Performed By: #### L [id number], [id number] ####Budget Clerk: CAROLE CID ([id number])[facility])[address] [place] [address] CO2 [Moles/Vol] 24 mmol/L Normal 23-31 [facility] Comment on above: Performed By: #### L [id number], [id number] ####Budget Clerk: CAROLE CID ([id number])[facility])[address] [place] [address] Creatinine [Mass/Vol] 0.52 mg/dL Low 0.57-1.11 [facility] Comment on above: Performed By: #### L [id number], [id number] ####Budget Clerk: CAROLE CID ([id number])[facility])[address] [place] [address] GLOMERULAR FILTRATION RATE ML/MIN/1.73 SQ M.PREDICTED >90.0 Normal >60.0 [facility] Comment on above: Result Comment: Calc ulation based on the Chronic Kidney Disease Epidemiology Collaboration (CKD-EPI) equation refit without adjustment for race Performed By: #### L [id number], [id number] ####Budget Clerk: CAROLE CID ([id number])[facility])[address] [place] [address] Glucose [Mass/Vol] 105 mg/dL Normal 82-115 [facility] Comment on above: Performed By: #### L [id number], [id number] ####Budget Clerk: CAROLE CID ([id number])[facility])[address] [place] [address] Potassium [Moles/Vol] 4.2 mmol/L Normal 3.5-5.1 [facility] Comment on above: Result Comment: [facility] potassium values may be up to 0.5 mmol/L lower than serum values. Performed By: #### L AB17, [id number] ####Budget Clerk: CAROLE CID ([id number])[facility])[address] [place] [address] Protein [Mass/Vol] 5.4 g/dL Low 6.4-8.3 [facility] Comment on above: Performed By: #### L [id number], [id number] ####Budget Clerk: CAROLE CID ([id number])[facility])[address] [place] [address] Sodium [Moles/Vol] 138 mmol/L Normal 136-145 [facility] Comment on above: Performed By: #### L [id number], [id number] ####Budget Clerk: CAROLE CID ([id number])[facility])[address] [place] [address] Urea nitrogen [Mass/Vol] 16 mg/dL Normal 9-23 [facility] Comment on above: Performed By: #### L AB17, [id number] ####Budget Clerk: CAROLE CID ([id number])[facility])[address] [place] [address] Calcium.ionized [Moles/Vol]o n 12-27-2024 Calcium.ionized (Bld) [Moles/Vol] 4.1 mg/dL Low 4.30 - 5.20 mg/dL [facility] Interpretation and review of laboratory results Abnormal [facility] PH, IONIZED CALCIUM 7.42 7.31 - 7.46 [facility] Comprehensive metabolic 1998 panelon 12-27-2024 Albumin [Mass/Vol] 2 g/dL Low 3.4 - 4.8 g/dL [facility] ALP [Catalytic activity/Vol] 67 U/L 40 - 150 U/L [facility] ALT [Catalytic activity/Vol] 30 U/L High NINF - 30 U/L [facility] Anion gap [Moles/Vol] 7 mmol/L 3 - 13 mmol/L [facility] AST [Catalytic activity/Vol] 42 U/L [facility]L [facility] Bilirubin [Mass/Vol] 0.4 mg/dL NINF - 1.2 mg/dL [facility] Calcium [Mass/Vol] 8.3 mg/dL Low 8.8 - 10. 0 mg/dL [facility] Chloride [Moles/Vol] 107 mmol/L 98 - 10 7 mmol/L [facility] CO2 [Moles/Vol] 24 mmol/L 23 - 31 mmol/L [facility] Creatinine [Mass/Vol] 0.52 mg/dL Low 0.57 - 1.11 mg/dL [facility] GFR/1.73 sq M.predicted (S/P/Bld) [Vol rate/Area] - PINF [facility] Glucose [Mass/Vol] 105 mg/dL 82 - 115 mg/dL [facility] Interpretation and review of laboratory results Abnormal [facility] Potassium [Moles/Vol] 4.2 mmol/L 3.5 - 5.1 mmol/L [facility] Protein [Mass/Vol] 5.4 g/dL Low 6.4 - 8.3 g/dL [facility] Sodium [Moles/Vol] 138 mmol/L 136 - 145 mmol/L [facility] Urea nitrogen [Mass/Vol] 16 mg/dL 9 - 23 mg/dL [facility] ECG 12-LEADon 12-27-2024 ECG 12-LEAD IMPRESSION: Sinus tachycardia Electronically Signed On 12-27-2024 10:59:25 EDT by Ankush Cuello Normal [facility] Laboratory - Chemistry and C hemistry - challengeon 12-27-2024 Magnesium [Mass/Vol] 2.1 mg/dL 1.6 - 2 .6 mg/dL [facility] Laboratory - Drug toxicology on 12-27-2024 Vancomycin trough [Mass/Vol] 16.8 ug/mL [facility] Laboratory - Microbiology an d Antimicrobial susceptibilityOrdered By: Laura Suárez on 12-27-2024 Bacteria identified Cx Nom (U) No growth (<1,000 CFU/mL) [facility] MAGNESIUMon 12-27-2024 Magnesium [Mass/Vol] 2.1 mg/dL Normal 1.6-2.6 [facility] Comment on above: Result Comment: ORDMargarita R COMMENTS:Higher values can be expected in females during menses. Performed By: #### L AB17, [id number] ####Budget Clerk: CAROLE CID ([id number])[facility] ([address] No Panel Informationon 12-27 [facility] P [place] 7 degrees [facility] MT Interval 98 ms [facility] QRS [place] 19 degrees [facility] QRSD Interval 74 ms [facility] QT Interval 348 ms [facility] QTC Interval 455 ms [facility] T Wave [place] 52 degrees [facility] CV EPIPHANY [facility] No Panel InformationOrdered By: Laura Suárez on 12-27-2024 Interpretation and review of laboratory results Normal [facility] Progress Noteon 12-27-2024 Progress Note Normal [facility] Progress Note Normal [facility] Progress Note Normal [facility] Respiratory pathogens DNA an d RNA panel TYLER+non-probe (Lower resp)Ordered By: Jayne Ashley on 12-27-2024 Acinetobacter baumannii complex Not detected Not Detected [facility] Adenovirus Not detected Not Detected [facility] Chlamydia pneumoniae Not detected Not Detected [facility] Enterobacter cloacae complex Not detected Not Detected [facility] Escherichia coli Not detected Not Detected [facility] FLUAV RNA TYLER+non-probe Ql (Lower resp) Detected Abnormal Not Detected [facility] FLUBV RNA TYLER+non-probe Ql (Lower resp) Not detected Not Detected [facility] Haemophilus influenzae Not detected Not Detected [facility] Human Metapneumovirus Not detected Not Detected [facility] Human Rhinovirus/Enterovirus Not detected Not Detected [facility] Interpretation and review of laboratory results Abnormal [facility] Klebsiella (Enterobacter) aerogenes Not detected Not Detected [facility] Klebsiella oxytoca Not detected Not Detected [facility] Klebsiella pneumoniae Not detected Not Detected [facility] Legionella pneumophila Not detected Not Detected [facility] Moraxella catarrhalis Not detected Not Detected [facility] Mycoplasma pneumoniae Not detected Not Detected [facility] Parainfluenza virus Not detected Not Detected [facility] Proteus spp Not detected Not Detected [facility] Pseudomonas aeruginosa Not detected Not Detected [facility] RSV RNA TYLER+probe Ql (Resp) Not detected Not Detected [facility] S. agalactiae Org specific cx Ql (Vag fld) Not detected Not Detected [facility] SARS-CoV-2 (COVID-19) RNA TYLER+non-probe Ql (Nph) Not detected Not Detected [facility] Serratia marcescens Not detected Not Detected [facility] Staphylococcus aureus Not detected Not Detected [facility] Streptococcus pneumoniae Not detected Not Detected [facility] Streptococcus pyogenes Not detected Not Detected [facility] VANCOMYCIN, AUC TIMED DOSING on 12-27-2024 VANCOMYCIN, AUC 16.8 ug/mL Normal [facility] Comment on above: Result Comment: ANDRADE Rosario COMMENTS:Please draw random level at least >2 hours after the end of the last vancomycin infusion, or 30-minutes before next infusion.Toxicity is seen at concentrations >80-100 ug/mLTherapeutic (Peak) range: 20-40Therapeutic (Trough) range: 5-10 Performed By: #### L [id number] ####Budget Clerk: CAROLE CID ([id number])[facility] ([facility])[address] [place] [address] Vancomycin trough [Mass/Vol] on 12-27-2024 [facility] Vital signson 12-27-2024 Heart rate 103 /min bpm [facility] 36on 12-26-2024 36 Normal [facility] BLOOD CULTUREon 12-26-2024 Bacteria identified Cx Nom (Bld) Normal [facility] Comment on above: Performed By: #### L [id number] ####Budget Clerk: CAROLE CID ([id number])[facility] ([facility])[address] [place] [address] Bacteria identified Cx Nom (Bld) Normal [facility] Comment on above: Performed By: #### L [id number] ####Budget Clerk: CAROLE CID ([id number])[facility])[address] [place] [address] BLOOD GAS ARTERIALon 025 AMOUNT OF OXYGEN 10 Normal [facility] Comment on above: Performed By: #### L AB76 ####Budget Clerk: CAROLE CID ([id number])[facility])[address] [place] [address] Base excess Calc (Bld) [Moles/Vol] 2.6 mmol/L Normal -3.0-3.0 [facility] Comment on above: Performed By: #### L AB76 ####Budget Clerk: CAROLE CID ([id number])[facility])[address] [place] [address] CO2 [Moles/Vol] 26.7 mmol/L Normal 23.0-27.0 [facility] Comment on above: Performed By: #### L AB76 ####Budget Clerk: CAROLE CID ([id number])[facility])[address] [place] [address] HCO3 (Bld) [Moles/Vol] 25.6 mmol/L High 21.0-25.0 S [facility] Comment on above: Performed By: #### L AB76 ####Budget Clerk: CAROLE CID ([id number])[facility])[address] [place] [address] Hemoglobin (Bld) [Mass/Vol] 10.1 g/dL Normal Screen only [facility] Comment on above: Performed By: #### L AB76 ####Budget Clerk: CAROLE CID ([id number])[facility])[address] [place] [address] OXYGEN SATURATION (%) IN ARTERIAL BLOOD 97.8 % Normal 95.0-100.0 [facility] Comment on above: Performed By: #### L AB76 ####Budget Clerk: CAROLE [id number])[facility] ([facility] [place] [address] PCO2 ARTERIAL 33.7 mm Hg Low >35.0-<45. 0 [facility] Comment on above: Performed By: #### L AB76 ####Budget Clerk: CAROLE CID ([id number])[facility] ([facility])[address] [place] [address] PH ARTERIAL 7.499 High 7.350-7.45 0 [facility] Comment on above: Performed By: #### L AB76 ####Budget Clerk: CAROLE CID ([id number])[facility] ([facility])[address] [place] [address] PO2 ARTERIAL 99.0 mm Hg Normal 80.0-100.0 [facility] Comment on above: Performed By: #### L AB76 ####Budget Clerk: CAROLE CID ([id number])[facility] ([facility])[address] [place] [address] SOURCE OF OXYGEN High Flow Oxygen Therapy (FiO2) Normal [facility] Comment on above: Performed By: #### L AB76 ####Budget Clerk: CAROLE CID ([id number])[facility])[address] [place] [address] AMOUNT OF OXYGEN 6LNC Normal [facility] Comment on above: Performed By: #### L AB76 ####Budget Clerk: CAROLE CID ([id number])[facility] ([facility])[address] [place] [address] Base excess Calc (Bld) [Moles/Vol] 2.3 mmol/L Normal -3.0-3.0 [facility] Comment on above: Performed By: #### L AB76 ####Budget Clerk: CAROLE CID ([id number])[facility])[address] [place] [address] CO2 [Moles/Vol] 25.6 mmol/L Normal 23.0-27.0 [facility] Comment on above: Performed By: #### L AB76 ####Budget Clerk: CAROLE CID ([id number])[facility] ([facility])[address] [place] [address] HCO3 (Bld) [Moles/Vol] 24.7 mmol/L Normal 21.0-25.0 S [facility] Comment on above: Performed By: #### L AB76 ####Budget Clerk: CAROLE CID ([id number])[facility] ([facility])[address] [place] [address] Hemoglobin (Bld) [Mass/Vol] 10.0 g/dL Normal Screen only [facility] Comment on above: Performed By: #### L AB76 ####Budget Clerk: CAROLE CID ([id number])[facility])[address] [place] [address] OXYGEN SATURATION (%) IN ARTERIAL BLOOD 86.3 % Low 95.0-100.0 [facility] Comment on above: Performed By: #### L AB76 ####Budget Clerk: CAROLE CID ([id number])[facility] ([facility])[address] [place] [address] PCO2 ARTERIAL 30.3 mm Hg Low >35.0-<45. 0 [facility] Comment on above: Performed By: #### L AB76 ####Budget Clerk: CAROLE CID ([id number])[facility] ([facility])[address] [place] [address] PH ARTERIAL 7.529 High 7.350-7.45 0 [facility] Comment on above: Performed By: #### L AB76 ####Budget Clerk: CAROLE CID ([id number])[facility] ([facility])[address] [place] [address] PO2 ARTERIAL 50.8 mm Hg Low 80.0-100.0 [facility] Comment on above: Performed By: #### L AB76 ####Budget Clerk: CAROLE CID ([id number])[facility] ([facility])[address] [place] [address] SOURCE OF OXYGEN Nasal Cannula (LPM) Normal [facility] Comment on above: Performed By: #### L AB76 ####Budget Clerk: CAROLE CID ([id number])[facility])[address] [place] [address] BLOOD GAS, VENOUSon 12-27-19 25 AMOUNT OF OXYGEN Normal [facility] Comment on above: Result Comment: ANDRADE R COMMENTS:Assessment of oxygenation is best done with an arterial blood gas determination. Reference ranges for pO2, bicarbonate, and base excess are for mixed venous blood. Specimens drawn from a peripheral vein will often have higher values. Performed By: #### L [id number] ####Budget Clerk: CAROLE CID ([id number])[facility])[address] [place] [address] Base excess Calc (BldV) [Moles/Vol] 1.8 mmol/L Normal -3.0-3.0 [facility] Comment on above: Performed By: #### L AB79 ####Budget Clerk: CAROLE CID ([id number])[facility])[address] [place] [address] CO2 [Moles/Vol] 25.8 mmol/L Normal 24.0-28.0 [facility] Comment on above: Performed By: #### L AB79 ####Budget Clerk: CAROLE CID ([id number])[facility])[address] [place] [address] HCO3 (Bld) [Moles/Vol] 24.8 mmol/L Normal 23.0-27.0 [facility] Comment on above: Performed By: #### L AB79 ####Budget Clerk: CAROLE CID ([id number])[facility])[address] [place] [address] Hemoglobin (Bld) [Mass/Vol] 10.5 g/dL Normal Screen only [facility] Comment on above: Performed By: #### L [id number] ####Budget Clerk: CAROLE CID ([id number])[facility])[address] [place] [address] OXYGEN (MM HG) IN VENOUS BLOOD 100.5 mm Hg Normal [facility] Comment on above: Performed By: #### L [id number] ####Budget Clerk: CAROLE CID ([id number])[facility])[address] [place] [address] OXYGEN SATURATION (%) IN VENOUS BLOOD 97.7 % Normal [facility] Comment on above: Performed By: #### L [id number] ####Budget Clerk: CAROLE CID ([id number])[facility])[address] [place] [address] PCO2, [place] 33.1 mm Hg Low 40.0-55.0 [facility] Comment on above: Performed By: #### L [id number] ####Budget Clerk: CAROLE CID ([id number])[facility])[address] [place] [address] PH VENOUS 7.493 High 7.330-7.43 0 [facility] Comment on above: Performed By: #### L [id number] ####Budget Clerk: CAROLE CID ([id number])[facility])[address] [place] [address] SOURCE OF OXYGEN Nasal Cannula (LPM) Normal [facility] Comment on above: Performed By: #### L AB79 ####Budget Clerk: CAROLE CID ([id number])[facility])[address] [place] [address] C-REACTIVE PROTEINon 025 CRP [Mass/Vol] 122.6 mg/L High <5.0 [facility] Comment on above: Performed By: #### L [id number], [id number], [id number], LAB17 ####Budget Clerk: CAROLE CID ([id number])[facility])[address] [place] [address] CALCIUM, IONIZEDon 5 CALCIUM IONIZED 4.20 mg/dL Low 4.30-5.20 [facility] Comment on above: Performed By: #### L AB54 ####Budget Clerk: CAROLE CID ([id number])[facility] ([facility])[address] [place] [address] PH, IONIZED CALCIUM 7.50 High 7.31-7.46 [facility] Comment on above: Performed By: #### L AB54 ####Budget Clerk: CAROLE CID ([id number])[facility] ([facility])[address] [place] [address] CBC W Auto Differential pane l (Bld)on 12-26-2024 Basophils (Bld) [#/Vol] 0.1 10*3/uL 0.0 - 0.2 10*3/uL [facility] Basophils/100 WBC (Bld) 0.5 % 0.0 - 2.0 % [facility] Eosinophils (Bld) [#/Vol] 0 10*3/uL 0. 0 - 0.5 10*3/uL [facility] Eosinophils/100 WBC (Bld) 0.1 % 0. 0 - 6.0 % [facility] Erythrocyte distribution width (RBC) [Ratio] 16.3 % High 11.5 - 15.0 % [facility] Hematocrit (Bld) [Volume fraction] 29.6 % Low 35.0 - 47.0 % [facility] Hemoglobin (Bld) [Mass/Vol] 9.5 g/dL Low 11.7 - 16.0 g/dL [facility] Immature granulocytes (Bld) [#/Vol] 0.1 10*3/uL High NINF - 0.1 10*3/uL [facility] Immature granulocytes/100 WBC (Bld) 0.8 % 0.0 - 2.0 % [facility] Interpretation and review of laboratory results Abnormal [facility] Lymphocytes (Bld) [#/Vol] 2.3 10*3/uL 1. 0 - 4.3 10*3/uL [facility] Lymphocytes/100 WBC (Bld) 15.3 % 15 .0 - 45.0 % [facility] MCH (RBC) [Entitic mass] 28.7 pg 26. 0 - 34.0 pg [facility] MCHC (RBC) [Mass/Vol] 32.1 % 30.5 - 36.0 % [facility] MCV (RBC) [Entitic vol] 89.4 fL 77.0 - 99.0 fL [facility] Monocytes (Bld) [#/Vol] 1.5 10*3/uL High 0.0 - 0.9 10*3/uL [facility] Monocytes/100 WBC (Bld) 10.2 % 5.0 - 13.0 % [facility] Neutrophils (Bld) [#/Vol] 10.9 10*3/uL High 1. 8 - 7.5 10*3/uL [facility] Neutrophils/100 WBC (Bld) 73.1 % 38 .0 - 82.0 % [facility] Nucleated RBC/100 WBC (Bld) [Ratio] 0 % [facility] Platelet mean volume (Bld) [Entitic vol] 9.9 fL 9.0 - 12.7 fL [facility] Platelets (Bld) [#/Vol] 474 10*3/uL High 140 - 440 10*3/uL [facility] RBC (Bld) [#/Vol] 3.31 10*6/uL Low 3.80 - 5.20 10*6/uL [facility] WBC (Bld) [#/Vol] 14.9 10*3/uL High 3.6 - 10.7 10*3/uL [facility] CBC WITH AUTO DIFFERENTIALon 12-26-2024 Basophils (Bld) [#/Vol] 0.1 10*3/uL Normal 0.0-0.2 [facility] Comment on above: Performed By: #### L [id number] ####Budget Clerk: CAROLE [id number])[address] Basophils/100 WBC (Bld) 0.5 % Normal 0.0-2.0 S [facility] Comment on above: Performed By: #### L [id number] ####Budget Clerk: CAROLE [id number])[address] Eosinophils (Bld) [#/Vol] 0.0 10*3/uL Normal 0.0-0.5 [facility] Comment on above: Performed By: #### L [id number] ####Budget Clerk: CAROLE [id number])[facility])[address] [place] [address] Eosinophils/100 WBC (Bld) 0.1 % Normal 0.0-6.0 [facility] Comment on above: Performed By: #### L [id number] ####Budget Clerk: CAROLE CID ([id number])[facility])[address] [place] [address] Erythrocyte distribution width (RBC) [Ratio] 16.3 % High 11.5-15.0 [facility] Comment on above: Performed By: #### L [id number] ####Budget Clerk: CAROLE CID ([id number])[facility])[address] [place] [address] Hematocrit (Bld) [Volume fraction] 29.6 % Low 35.0-47.0 [facility] Comment on above: Performed By: #### L [id number] ####Budget Clerk: CAROLE CID ([id number])[facility])[address] [place] [address] Hemoglobin (Bld) [Mass/Vol] 9.5 g/dL Low 11.7-16. 0 [facility] Comment on above: Performed By: #### L [id number] ####Budget Clerk: CAROLE CID ([id number])[facility])[address] [place] [address] IMMATURE GRANS % 0.8 % Normal 0.0-2.0 [facility] Comment on above: Performed By: #### L [id number] ####Budget Clerk: CAROLE CID ([id number])[facility])[address] [place] [address] IMMATURE GRANS ABSOLUTE 0.1 10*3/uL High <0.1 [facility] Comment on above: Performed By: #### L [id number] ####Budget Clerk: CAROLE CID ([id number])[facility])[address] [place] [address] [place] Lymphocytes (Bld) [#/Vol] 2.3 10*3/uL Normal 1.0-4.3 [facility] Comment on above: Performed By: #### L [id number] ####Budget Clerk: CAROLE CID ([id number])[facility])[address] [place] [address] Lymphocytes/100 WBC (Bld) 15.3 % Normal 15.0-45.0 [facility] Comment on above: Performed By: #### L [id number] ####Budget Clerk: CAROLE CID ([id number])[facility])[address] [place] [address] MCH (RBC) [Entitic mass] 28.7 pg Normal 26.0-34.0 [facility] Comment on above: Performed By: #### L [id number] ####Budget Clerk: CAROLE CID ([id number])[facility])[address] [place] [address] MCHC 32.1 % Normal 30.5-36.0 [facility] Comment on above: Performed By: #### L [id number] ####Budget Clerk: CAROLE CID ([id number])[facility])[address] [place] [address] MCV (RBC) [Entitic vol] 89.4 fL Normal 77.0-99.0 S [facility] Comment on above: Performed By: #### L [id number] ####Budget Clerk: CAROLE CID ([id number])[facility])[address] [place] [address] Monocytes (Bld) [#/Vol] 1.5 10*3/uL High 0.0-0.9 [facility] Comment on above: Performed By: #### L [id number] ####Budget Clerk: CAROLE CID ([id number])[facility])[address] [place] [address] Monocytes/100 WBC (Bld) 10.2 % Normal 5.0-13.0 S [facility] Comment on above: Performed By: #### L [id number] ####Budget Clerk: CAROLE CID ([id number])[facility] ([facility])[address] [place] [address] NEUTROPHILS ABSOLUTE 10.9 10*3/uL High 1.8-7.5 [facility] Comment on above: Performed By: #### L [id number] ####Budget Clerk: CAROLE CID ([id number])[facility] ([facility])[address] [place] [address] Neutrophils/100 WBC (Bld) 73.1 % Normal 38.0-82.0 [facility] Comment on above: Performed By: #### L [id number] ####Budget Clerk: CAROLE CID ([id number])[facility])[address] [place] [address] NRBC 0.0 /100 WBCs Normal 0.0-2.0 [facility] Comment on above: Performed By: #### L [id number] ####Budget Clerk: CAROLE CID ([id number])[facility] ([facility])[address] [place] [address] Platelet mean volume (Bld) [Entitic vol] 9.9 fL Normal 9.0-12.7 [facility] Comment on above: Performed By: #### L [id number] ####Budget Clerk: CAROLE CID ([id number])[facility] ([facility])[address] [place] [address] [place] Platelets (Bld) [#/Vol] 474 10*3/uL High 140-440 [facility] Comment on above: Performed By: #### L [id number] ####Budget Clerk: CAROLE CID ([id number])[facility] ([facility])[address] [place] [address] [place] RBC (Bld) [#/Vol] 3.31 10*6/uL Low 3.80-5.20 [facility] Comment on above: Performed By: #### L [id number] ####Budget Clerk: CAROLE CID ([id number])[facility] ([facility])[address] [place] [address] WBC (Bld) [#/Vol] 14.9 10*3/uL High 3.6-10.7 [facility] Comment on above: Performed By: #### L [id number] ####Budget Clerk: CAROLE CID ([id number])[facility])[address] [place] [address] COMPLETE URINALYSISon 2024 BACTERIA (#/HPF) IN URINE Few Abnormal Negative [facility] Comment on above: Performed By: #### L [id number], [id number] ####Budget Clerk: CAROLE CID ([id number])[facility])[address] [place] [address] BILIRUBIN, TOTAL PRESENCE IN URINE Negative Normal Negative [facility] Comment on above: Performed By: #### L [id number], [id number] ####Budget Clerk: CAROLE CID ([id number])[facility] ([facility])[address] [place] [address] Clarity (U) Extra Turbid Abnormal Clear [facility] Comment on above: Performed By: #### L [id number], [id number] ####Budget Clerk: CAROLE CID ([id number])[facility])[address] [place] [address] Color (U) Yellow Normal Lt. Yellow [facility] Comment on above: Performed By: #### L [id number], [id number] ####Budget Clerk: CAROLE CID ([id number])[facility] ([facility])[address] [place] [address] GLUCOSE (MG/DL) IN URINE Normal Normal Nor mal (<70) [facility] Comment on above: Performed By: #### L [id number], [id number] ####Budget Clerk: CAROLE CID ([id number])[facility])[address] [place] [address] HEMOGLOBIN PRESENCE IN URINE 0.2 mg/dL Abnormal Negative [facility] Comment on above: Performed By: #### L [id number], [id number] ####Budget Clerk: CAROLE CID ([id number])[facility] ([facility])[address] [place] [address] [place] HYALINE CASTS (#/LPF) IN URINE SEDIMENT BY MICROSCOPY Negative Normal Negative [facility] Comment on above: Performed By: #### L [id number], [id number] ####Budget Clerk: CAROLE CID ([id number])[facility] ([facility])[address] [place] [address] [place] Ketones Ql (U) Negative Normal Negative [facility] Comment on above: Performed By: #### L [id number], [id number] ####Budget Clerk: CAROLE CID ([id number])[facility] ([facility])[address] [place] [address] LEUKOCYTE ESTERASE PRESENCE IN URINE BY TEST STRIP 75 Rafat/uL Abnormal Negative [facility] Comment on above: Performed By: #### L [id number], [id number] ####Budget Clerk: CAROLE CID ([id number])[facility] ([facility])[address] [place] [address] [place] MUCUS (#/LPF) IN URINE SEDIMENT Few Normal Negative [facility] Comment on above: Performed By: #### L [id number], [id number] ####Budget Clerk: CAROLE CID ([id number])[facility] ([facility])[address] [place] [address] [place] NITRITE PRESENCE IN URINE Negative Normal Negative [facility] Comment on above: Performed By: #### L [id number], [id number] ####Budget Clerk: CAROLE CID ([id number])[facility] ([facility])[address] [place] [address] pH (U) 7.5 [pH] Normal 5.0-8.0 [facility] Comment on above: Performed By: #### L [id number], [id number] ####Budget Clerk: CAROLE CID ([id number])[facility] ([facility])[address] [place] [address] Protein (U) [Mass/Vol] 70 mg/dL Abnormal Negative [facility] Comment on above: Performed By: #### L [id number], [id number] ####Budget Clerk: CAROLE CID ([id number])[facility])[address] [place] [address] RBC (#/HPF) IN URINE SEDIMENT >100 Abnormal 0-2 [facility] Comment on above: Performed By: #### L [id number], [id number] ####Budget Clerk: CAROLE CID ([id number])[facility] ([facility])[address] [place] [address] Specific gravity (U) [Rel density] 1.013 Normal 1.005-1.03 0 [facility] Comment on above: Performed By: #### L [id number], [id number] ####Budget Clerk: CAROLE CID ([id number])[facility])[address] [place] [address] SQUAMOUS EPITHELIAL CELLS (#/HPF) IN URINE SEDIMENT 0-2 Normal 3-5 [facility] Comment on above: Performed By: #### L [id number], [id number] ####Budget Clerk: CAROLE CID ([id number])[facility])[address] [place] [address] UROBILINOGEN (MG/DL) IN URINE Normal Normal Normal (0-1) [facility] Comment on above: Performed By: #### L [id number], [id number] ####Budget Clerk: CAROLE CID ([id number])[facility])[address] [place] [address] WBC (LEUKOCYTE) (#/HPF) IN URINE SEDIMENT 11-25 Abnormal 0-5 [facility] Comment on above: Performed By: #### L [id number], [id number] ####Budget Clerk: CAROLE CID ([id number])[facility])[address] [place] [address] COMPREHENSIVE METABOLIC PANE Demetris 12-26-2024 Albumin [Mass/Vol] 2.1 g/dL Low 3.4-4.8 [facility] Comment on above: Performed By: #### L AB149, [id number], [id number], [id number] ####Budget Clerk: CAROLE CID ([id number])[facility])[address] [place] [address] ALP [Catalytic activity/Vol] 68 U/L Normal 40-150 [facility] Comment on above: Performed By: #### L AB149, [id number], [id number], LAB17 ####Budget Clerk: CAROLE ICD ([id number])[facility] ([facility])[address] [place] [address] ALT [Catalytic activity/Vol] 23 U/L Normal <30 [facility] Comment on above: Performed By: #### L AB149, [id number], [id number], LAB17 ####Budget Clerk: CAROLE CID ([id number])[facility] ([facility])[address] [place] [address] Anion gap [Moles/Vol] 8 mmol/L Normal 3-13 [facility] Comment on above: Performed By: #### L AB149, [id number], [id number], LAB17 ####Budget Clerk: CAROLE CID ([id number])[facility] ([facility])[address] [place] [address] AST [Catalytic activity/Vol] 32 U/L Normal <34 [facility] Comment on above: Performed By: #### L AB149, [id number], [id number], LAB17 ####Budget Clerk: CAROLE CID ([id number])[facility])[address] [place] [address] Bilirubin [Mass/Vol] 0.5 mg/dL Normal <1.2 [facility] Comment on above: Performed By: #### L AB149, [id number], [id number], LAB17 ####Budget Clerk: CAROLE CID ([id number])[facility])[address] [place] [address] Calcium [Mass/Vol] 8.3 mg/dL Low 8.8-10.0 [facility] Comment on above: Performed By: #### L AB149, [id number], [id number], LAB17 ####Budget Clerk: CAROLE CID ([id number])[facility])[address] [place] [address] Chloride [Moles/Vol] 105 mmol/L Normal 98-107 [facility] Comment on above: Performed By: #### L AB149, [id number], [id number], LAB17 ####Budget Clerk: CAORLE CID ([id number])[facility])[address] [place] [address] CO2 [Moles/Vol] 22 mmol/L Low 23-31 [facility] Comment on above: Performed By: #### L AB149, [id number], [id number], LAB17 ####Budget Clerk: CAROLE CID ([id number])[facility])[address] [place] [address] Creatinine [Mass/Vol] 0.52 mg/dL Low 0.57-1.11 [facility] Comment on above: Performed By: #### L AB149, [id number], [id number], LAB17 ####Budget Clerk: CAROLE CID ([id number])[facility])[address] [place] [address] GLOMERULAR FILTRATION RATE ML/MIN/1.73 SQ M.PREDICTED >90.0 Normal >60.0 [facility] Comment on above: Result Comment: Calc ulation based on the Chronic Kidney Disease Epidemiology Collaboration (CKD-EPI) equation refit without adjustment for race Performed By: #### L AB149, [id number], [id number], LAB17 ####Budget Clerk: CAROLE CID ([id number])[facility])[address] [place] [address] [place] Glucose [Mass/Vol] 134 mg/dL High 82-115 [facility] Comment on above: Performed By: #### L AB149, [id number], [id number], LAB17 ####Budget Clerk: CAROLE CID ([id number])[facility] ([address] Potassium [Moles/Vol] 4.0 mmol/L Normal 3.5-5.1 [facility] Comment on above: Result Comment: [facility] potassium values may be up to 0.5 mmol/L lower than serum values. Performed By: #### L AB149, [id number], [id number], LAB17 ####Budget Clerk: CAROLE CID ([id number])[facility])[address] [place] [address] Protein [Mass/Vol] 5.7 g/dL Low 6.4-8.3 [facility] Comment on above: Performed By: #### L AB149, [id number], [id number], LAB17 ####Budget Clerk: CAROLE CID ([id number])[facility])[address] [place] [address] Sodium [Moles/Vol] 135 mmol/L Low 136-145 [facility] Comment on above: Performed By: #### L AB149, [id number], [id number], LAB17 ####Budget Clerk: CAROLE CID ([id number])[facility])[address] [place] [address] Urea nitrogen [Mass/Vol] 15 mg/dL Normal 9-23 [facility] Comment on above: Performed By: #### L AB149, [id number], [id number], LAB17 ####Budget Clerk: CAROLE CID ([id number])[facility])[address] [place] [address] CRP [Mass/Vol]on 12-26-2024 Interpretation and review of laboratory results Abnormal [facility] Calcium.ionized [Moles/Vol]o n 12-26-2024 Calcium.ionized (Bld) [Moles/Vol] 4.2 mg/dL Low 4.30 - 5.20 mg/dL [facility] Interpretation and review of laboratory results Abnormal [facility] PH, IONIZED CALCIUM 7.5 High 7.31 - 7.46 [facility] Comprehensive metabolic 1998 panelon 12-26-2024 Albumin [Mass/Vol] 2.1 g/dL Low 3.4 - 4.8 g/dL [facility] ALP [Catalytic activity/Vol] 68 U/L 40 - 150 U/L [facility] ALT [Catalytic activity/Vol] 23 U/L NINF - 30 U/L [facility] Anion gap [Moles/Vol] 8 mmol/L 3 - 13 mmol/L [facility] AST [Catalytic activity/Vol] 32 U/L NINF - 34 U/L [facility] Bilirubin [Mass/Vol] 0.5 mg/dL NINF - 1.2 mg/dL [facility] Calcium [Mass/Vol] 8.3 mg/dL Low 8.8 - 10. 0 mg/dL [facility] Chloride [Moles/Vol] 105 mmol/L 98 - 10 7 mmol/L [facility] CO2 [Moles/Vol] 22 mmol/L Low 23 - 31 mmol/L [facility] Creatinine [Mass/Vol] 0.52 mg/dL Low 0.57 - 1.11 mg/dL [facility] GFR/1.73 sq M.predicted (S/P/Bld) [Vol rate/Area] - PINF [facility] Glucose [Mass/Vol] 134 mg/dL High 82 - 115 mg/dL [facility] Interpretation and review of laboratory results Abnormal [facility] Potassium [Moles/Vol] 4 mmol/L 3.5 - 5.1 mmol/L [facility] Protein [Mass/Vol] 5.7 g/dL Low 6.4 - 8.3 g/dL [facility] Sodium [Moles/Vol] 135 mmol/L Low 136 - 145 mmol/L [facility] Urea nitrogen [Mass/Vol] 15 mg/dL 9 - 23 mg/dL [facility] Consulton 12-26-2024 Consult Normal [facility] LACTIC ACID WITH REFLEXon Lactate [Moles/Vol] 0.9 mmol/L Normal 0.5-2.2 [facility] Comment on above: Performed By: #### L [id number] ####Budget Clerk: CAROLE CID ([id number])[facility] ([address] LEGIONELLA AND STREPTOCOCCUS URINE ANTIGENon 12-26-2024 LEGIONELLA AND STREPTOCOCCUS URINE ANTIGEN Normal [facility] Comment on above: Performed By: #### L [id number] ####Budget Clerk: CAROLE CID ([id number])[address] Laboratory - Chemistry and C hemistry - challengeon 12-26-2024 Base excess Calc (Bld) [Moles/Vol] 2.6 mmol/L -3.0 - 3.0 mmol/L [facility] CO2 (Bld) [Partial pressure] 33.7 mm[Hg] Low - PINF [facility] CO2 [Moles/Vol] 26.7 mmol/L 23.0 - 27.0 mmol/L [facility] HCO3 (Bld) [Moles/Vol] 25.6 mmol/L High 21.0 - 25.0 mmol/L [facility] Oxygen (Bld) [Partial pressure] 99 mm[Hg] [facility] pH (Bld) 7.499 [pH] High 7.350 - 7.450 [facility] Procalcitonin [Mass/Vol] 0.1 ng/mL High ISABELLA F - 0.07 ng/mL [facility] CRP [Mass/Vol] 122.6 mg/L High NINF - 5.0 mg/L [facility] Lactate [Moles/Vol] 0.9 mmol/L 0.5 - 2. 2 mmol/L [facility] Magnesium [Mass/Vol] 2.1 mg/dL 1.6 - 2 .6 mg/dL [facility] Base excess Calc (BldV) [Moles/Vol] 1.8 mmol/L -3.0 - 3.0 mmol/L [facility] CO2 (BldV) [Partial pressure] 33.1 mm[Hg] Low [facility] CO2 [Moles/Vol] 25.8 mmol/L 24.0 - 28.0 mmol/L [facility] HCO3 (Bld) [Moles/Vol] 24.8 mmol/L 23.0 - 27.0 mmol/L [facility] Oxygen (BldV) [Partial pressure] 100.5 mm[Hg] mm Hg [facility] pH (BldV) 7.493 [pH] High 7.330 - 7.430 [facility] - Chemistry and C hemistry - challengeOrdered By: Sharon Upton on 12-26-2024 Base excess Calc (Bld) [Moles/Vol] 2.3 mmol/L -3.0 - 3.0 mmol/L [facility] CO2 (Bld) [Partial pressure] 30.3 mm[Hg] Low - PINF [facility] CO2 [Moles/Vol] 25.6 mmol/L 23.0 - 27.0 mmol/L [facility] HCO3 (Bld) [Moles/Vol] 24.7 mmol/L 21.0 - 25.0 mmol/L [facility] Oxygen (Bld) [Partial pressure] 50.8 mm[Hg] Low [facility] pH (Bld) 7.529 [pH] High 7.350 - 7.450 [facility] - Hematology and Cell countson 12-26-2024 Hemoglobin (Bld) [Mass/Vol] 10.1 g/dL Screen only [facility] Hemoglobin (Bld) [Mass/Vol] 10.5 g/dL Screen only [facility] Laboratory - Hematology and Cell countsOrdered By: Sharon Upton on 12-26-2024 Hemoglobin (Bld) [Mass/Vol] 10 g/dL Screen only [facility] MAGNESIUMon 12-26-2024 Magnesium [Mass/Vol] 2.1 mg/dL Normal 1.6-2.6 [facility] Comment on above: Result Comment: ANDRADE Rosario COMMENTS:Higher values can be expected in females during menses. Performed By: #### L [id number], [id number], [id number], LAB17 ####Budget Clerk: CAROLE CID ([id number])[address] Magnesium [Mass/Vol]on 12-26 Interpretation and review of laboratory results Normal [facility] No Panel Informationon 12-26 Amount Of Oxygen 10 [facility] Interpretation and review of laboratory results Abnormal [facility] Source Of Oxygen High Flow Oxygen Therapy (FiO2) [facility] Interpretation and review of laboratory results Normal [facility] Interpretation and review of laboratory results Abnormal [facility] Source Of Oxygen Nasal Cannula (LPM) [facility] No Panel InformationOrdered By: Sharon Upton on 12-26-2024 Amount Of Oxygen 6LNC [facility] Interpretation and review of laboratory results Abnormal [facility] Source Of Oxygen Nasal Cannula (LPM) [facility] No Panel InformationOrdered By: Chas Malin on 12-26-2024 Interpretation and review of laboratory results Normal [facility] Legionella pneumophila Ag Not detected No t Detected [facility] Streptococcus pneumoniae Ag Not detected Not Detected [facility] PNEUMONIA PCR PANELon 2024 PNEUMONIA PCR PANEL Normal [facility] Comment on above: Performed By: #### L [id number] ####Budget Clerk: CAROLE CID ([id number])[facility] ([facility])[address] [place] [address] PROCALCITONIN TESTon 025 PROCALCITONIN 0.10 ng/mL High <0.07 [facility] Comment on above: Result Comment: ANDRADE R COMMENTS:PCT <0.50 = Low risk of severe sepsis and/or septic shock.PCT >2.00 = High risk of severe sepsis and/or septic shock. Performed By: #### L AB149, [id number], [id number], LAB17 ####Budget Clerk: CAROLE CID ([id number])[facility] ([facility])[address] [place] [address] [place] Procalcitonin [Mass/Vol]on 0 12-26-2024 Interpretation and review of laboratory results Abnormal [facility] Progress Noteon 12-26-2024 Progress Note Normal [facility] Progress Note Normal [facility] Progress Note Normal [facility] Progress Note Normal [facility] Progress Note Normal [facility] RESPIRATORY CULTURE AND STAI Non 12-26-2024 RESPIRATORY CULTURE AND STAIN Normal [facility] Comment on above: Performed By: #### L [id number] ####Budget Clerk: CAROLE CID ([id number])[facility])[address] [place] [address] RESPIRATORY PATHOGENS PANEL BY PCRon 12-26-2024 RESPIRATORY PATHOGENS PANEL BY PCR Normal [facility] Comment on above: Performed By: #### L [id number] ####Budget Clerk: CAROLE CID ([id number])[facility] ([facility])[address] [place] [address] Respiratory pathogens DNA an d RNA panel TYLER+non-probe (Nph)on 12-26-2024 Adenovirus Not detected Not Detected [facility] B. pertussis DNA TYLER+probe Ql (Unsp spec) Not detected Not Detected [facility] Bordetella parapertussis Not detected Not Detected [facility] Chlamydia pneumoniae Not detected Not Detected [facility] Coronavirus 229E Not detected Not Detected [facility] Coronavirus HKU1 Not detected Not Detected [facility] Coronavirus NL63 Not detected Not Detected [facility] Coronavirus OC43 Not detected Not Detected [facility] FLUAV RNA TYLER+non-probe Ql (Nph) Not detected Not Detected [facility] FLUBV RNA TYLER+non-probe Ql (Nph) Not detected Not Detected [facility] Human Metapneumovirus Not detected Not Detected [facility] Human Rhinovirus/Enterovirus Not detected Not Detected [facility] Interpretation and review of laboratory results Normal [facility] Mycoplasma pneumoniae Not detected Not Detected [facility] Parainfluenza 1 Not detected Not Detected [facility] Parainfluenza 2 Not detected Not Detected [facility] Parainfluenza 3 Not detected Not Detected [facility] Parainfluenza 4 Not detected Not Detected [facility] Respiratory Syncytial Virus Not detected Not Detected [facility] SARS-CoV-2 (COVID-19) RNA TYLER+non-probe Ql (Nph) Not detected Not Detected [facility] URINE CULTUREon 12-26-2024 Bacteria identified Cx Nom (U) Normal [facility] Comment on above: Performed By: #### L [id number], [id number] ####Budget Clerk: CAROLE CID ([id number])[facility] ([facility])[address] [place] [address] [place] Urinalysis complete panel (U )on 12-26-2024 Bacteria LM.HPF (Urine sed) [#/Area] Few Abnormal Negative /HPF [facility] Bilirubin Ql (U) Negative Negative mg/dL [facility] Clarity (U) Extra Turbid Abnormal Clear [facility] Color (U) Yellow Lt. Yellow [facility] Epithelial cells.squamous LM.HPF (Urine sed) [#/Area] 0-2 [facility] Glucose Ql (U) Normal Normal (<70) mg/dL [facility] Hemoglobin Ql (U) 0.2 mg/dL Abnormal Negative [facility] Hyaline casts Auto (Urine sed) [#/Area] Negative Negative /LPF [facility] Interpretation and review of laboratory results Abnormal [facility] Ketones (U) [Mass/Vol] Negative Negat heath mg/dL [facility] Leukocyte esterase Test strip Ql (U) 75 Abnormal Negative Rafat/uL [facility] Mucus LM.HPF (Urine sed) [#/Area] Few Negative /LPF [facility] Nitrite Ql (U) Negative Negative [facility] pH (U) 7.5 [pH] 5.0 - 8.0 pH [facility] Protein (U) [Mass/Vol] 70 mg/dL Abnormal Negative [facility] RBC LM.HPF (Urine sed) [#/Area] /[HPF] Abnormal [facility] Specific gravity (U) [Rel density] 1.013 1.005 - 1.030 [facility] Urobilinogen (U) [Mass/Vol] Normal Normal (0-1) mg/dL [facility] WBC LM.HPF (Urine sed) [#/Area] 11-25 Abnormal [facility] Vital signson 12-26-2024 Oxygen saturation in Venous blood 97.7 % [facility] XR CHEST 1 VIEWon 12-26-2024 XR CHEST 1 VIEW Normal [facility] XR CHEST 1 VIEW Normal [facility] XR Chest Single viewon 12-26 [facility] RADIOLOGY [facility] Radiology Study observation (narrative) [facility] RADIOLOGY [facility] RADIOLOGY SYSTEM [facility] Radiology Study observation (narrative) [facility] XR Chest Single viewOrdered By: Balbir Garcia on 12-26-2024 [facility] Work Phone: 30on 12-25-2024 30 Normal [facility] 30 Normal [facility] [id number] 12-25-2024 [id number] Normal [facility] CALCIUM, IONIZEDon 5 CALCIUM IONIZED 4.20 mg/dL Low 4.30-5.20 [facility] Comment on above: Performed By: #### L [id number] ####Budget Clerk: CAROLE CID ([id number])[facility] [place] [address] PH, IONIZED CALCIUM 7.49 High 7.31-7.46 [facility] Comment on above: Performed By: #### L [id number] ####Budget Clerk: CAROLE CID ([id number])[facility] ([facility])[address] [place] [address] CBC W Auto Differential pane l (Bld)on 12-25-2024 Basophils (Bld) [#/Vol] 0 10*3/uL 0.0 - 0.2 10*3/uL [facility] Basophils/100 WBC (Bld) 0.5 % 0.0 - 2.0 % [facility] Eosinophils (Bld) [#/Vol] 0 10*3/uL 0. 0 - 0.5 10*3/uL [facility] Eosinophils/100 WBC (Bld) 0 % 0. 0 - 6.0 % [facility] Erythrocyte distribution width (RBC) [Ratio] 16.1 % High 11.5 - 15.0 % [facility] Hematocrit (Bld) [Volume fraction] 28.7 % Low 35.0 - 47.0 % [facility] Hemoglobin (Bld) [Mass/Vol] 9.2 g/dL Low 11.7 - 16.0 g/dL [facility] Immature granulocytes (Bld) [#/Vol] 0.1 10*3/uL High NINF - 0.1 10*3/uL [facility] Immature granulocytes/100 WBC (Bld) 0.7 % 0.0 - 2.0 % [facility] Interpretation and review of laboratory results Abnormal [facility] Lymphocytes (Bld) [#/Vol] 1.3 10*3/uL 1. 0 - 4.3 10*3/uL [facility] Lymphocytes/100 WBC (Bld) 15 % 15 .0 - 45.0 % [facility] MCH (RBC) [Entitic mass] 29.3 pg 26. 0 - 34.0 pg [facility] MCHC (RBC) [Mass/Vol] 32.1 % 30.5 - 36.0 % [facility] MCV (RBC) [Entitic vol] 91.4 fL 77.0 - 99.0 fL [facility] Monocytes (Bld) [#/Vol] 0.8 10*3/uL 0.0 - 0.9 10*3/uL [facility] Monocytes/100 WBC (Bld) 9.6 % 5.0 - 13.0 % [facility] Neutrophils (Bld) [#/Vol] 6.4 10*3/uL 1. 8 - 7.5 10*3/uL [facility] Neutrophils/100 WBC (Bld) 74.2 % 38 .0 - 82.0 % [facility] Nucleated RBC/100 WBC (Bld) [Ratio] 0 % [facility] Platelet mean volume (Bld) [Entitic vol] 9.9 fL 9.0 - 12.7 fL [facility] Platelets (Bld) [#/Vol] 449 10*3/uL High 140 - 440 10*3/uL [facility] RBC (Bld) [#/Vol] 3.14 10*6/uL Low 3.80 - 5.20 10*6/uL [facility] WBC (Bld) [#/Vol] 8.7 10*3/uL 3.6 - 10.7 10*3/uL [facility] CBC WITH AUTO DIFFERENTIALon 12-25-2024 Basophils (Bld) [#/Vol] 0.0 10*3/uL Normal 0.0-0.2 [facility] Comment on above: Performed By: #### L [id number] ####Budget Clerk: CAROLE CID ([id number])[facility])[address] [place] [address] Basophils/100 WBC (Bld) 0.5 % Normal 0.0-2.0 S [facility] Comment on above: Performed By: #### L [id number] ####Budget Clerk: CAROLE CID ([id number])[facility] ([facility])[address] [place] [address] [place] Eosinophils (Bld) [#/Vol] 0.0 10*3/uL Normal 0.0-0.5 [facility] Comment on above: Performed By: #### L [id number] ####Budget Clerk: CAROLE CID ([id number])[facility] ([facility])[address] [place] [address] [place] Eosinophils/100 WBC (Bld) 0.0 % Normal 0.0-6.0 [facility] Comment on above: Performed By: #### L [id number] ####Budget Clerk: CAROLE CID ([id number])[facility])[address] [place] [address] Erythrocyte distribution width (RBC) [Ratio] 16.1 % High 11.5-15.0 [facility] Comment on above: Performed By: #### L [id number] ####Budget Clerk: CAROLE CID ([id number])[facility])[address] [place] [address] Hematocrit (Bld) [Volume fraction] 28.7 % Low 35.0-47.0 [facility] Comment on above: Performed By: #### L [id number] ####Budget Clerk: CAROLE CID ([id number])[address] Hemoglobin (Bld) [Mass/Vol] 9.2 g/dL Low 11.7-16. 0 [facility] Comment on above: Performed By: #### L [id number] ####Budget Clerk: CAROLE CID ([id number])[facility])[address] [place] [address] IMMATURE GRANS % 0.7 % Normal 0.0-2.0 [facility] Comment on above: Performed By: #### L [id number] ####Budget Clerk: CAROLE CID ([id number])[address] IMMATURE GRANS ABSOLUTE 0.1 10*3/uL High <0.1 [facility] Comment on above: Performed By: #### L [id number] ####Budget Clerk: CAROLE CID ([id number])[facility])[address] [place] [address] Lymphocytes (Bld) [#/Vol] 1.3 10*3/uL Normal 1.0-4.3 [facility] Comment on above: Performed By: #### L [id number] ####Budget Clerk: CAROLE CID ([id number])[facility])[address] [place] [address] Lymphocytes/100 WBC (Bld) 15.0 % Normal 15.0-45.0 [facility] Comment on above: Performed By: #### L [id number] ####Budget Clerk: CAROLE CID ([id number])[facility])[address] [place] [address] MCH (RBC) [Entitic mass] 29.3 pg Normal 26.0-34.0 [facility] Comment on above: Performed By: #### L [id number] ####Budget Clerk: CAROLE CID ([id number])[facility])[address] [place] [address] MCHC 32.1 % Normal 30.5-36.0 [facility] Comment on above: Performed By: #### L [id number] ####Budget Clerk: CAROLE CID ([id number])[facility])[address] [place] [address] MCV (RBC) [Entitic vol] 91.4 fL Normal 77.0-99.0 S [facility] Comment on above: Performed By: #### L [id number] ####Budget Clerk: CAROLE CID ([id number])[facility])[address] [place] [address] Monocytes (Bld) [#/Vol] 0.8 10*3/uL Normal 0.0-0.9 [facility] Comment on above: Performed By: #### L [id number] ####Budget Clerk: CAROLE CID ([id number])[facility])[address] [place] [address] Monocytes/100 WBC (Bld) 9.6 % Normal 5.0-13.0 S [facility] Comment on above: Performed By: #### L [id number] ####Budget Clerk: CAROLE [id number])[facility] ([facility] [place] [address] NEUTROPHILS ABSOLUTE 6.4 10*3/uL Normal 1.8-7.5 [facility] Comment on above: Performed By: #### L [id number] ####Budget Clerk: CAROLE CID ([id number])[facility] ([facility])[address] [place] [address] Neutrophils/100 WBC (Bld) 74.2 % Normal 38.0-82.0 [facility] Comment on above: Performed By: #### L [id number] ####Budget Clerk: CAROLE CID ([id number])[facility] ([facility])[address] [place] [address] NRBC 0.0 /100 WBCs Normal 0.0-2.0 [facility] Comment on above: Performed By: #### L [id number] ####Budget Clerk: CAROLE CID ([id number])[facility] ([facility])[address] [place] [address] Platelet mean volume (Bld) [Entitic vol] 9.9 fL Normal 9.0-12.7 [facility] Comment on above: Performed By: #### L [id number] ####Budget Clerk: CAROLE CID ([id number])[facility] ([facility])[address] [place] [address] Platelets (Bld) [#/Vol] 449 10*3/uL High 140-440 [facility] Comment on above: Performed By: #### L [id number] ####Budget Clerk: CAROLE CID ([id number])[facility] ([facility])[address] [place] [address] [place] RBC (Bld) [#/Vol] 3.14 10*6/uL Low 3.80-5.20 [facility] Comment on above: Performed By: #### L [id number] ####Budget Clerk: CAROLE CID ([id number])[facility] ([facility])[address] [place] [address] [place] WBC (Bld) [#/Vol] 8.7 10*3/uL Normal 3.6-10.7 [facility] Comment on above: Performed By: #### L [id number] ####Budget Clerk: CAROLE CID ([id number])[facility] ([facility])[address] [place] [address] COMPREHENSIVE METABOLIC PANE Demetris 12-25-2024 Albumin [Mass/Vol] 2.2 g/dL Low 3.4-4.8 [facility] Comment on above: Performed By: #### L AB103, LAB17, [id number] ####Budget Clerk: CAROLE CID ([id number])[facility] ([facility])[address] [place] [address] ALP [Catalytic activity/Vol] 71 U/L Normal 40-150 [facility] Comment on above: Performed By: #### Mago AB103, LAB17, [id number] ####Budget Clerk: CAROLE CID ([id number])[facility] ([facility])[address] [place] [address] ALT [Catalytic activity/Vol] 25 U/L Normal <30 [facility] Comment on above: Performed By: #### Mago AB103, LAB17, [id number] ####Budget Clerk: CAROLE CID ([id number])[facility] ([facility])[address] [place] [address] Anion gap [Moles/Vol] 5 mmol/L Normal 3-13 [facility] Comment on above: Performed By: #### Mago AB103, LAB17, [id number] ####Budget Clerk: CAROLE CID ([id number])[facility] ([facility])[address] [place] [address] AST [Catalytic activity/Vol] 32 U/L Normal <34 [facility] Comment on above: Performed By: #### L AB103, LAB17, [id number] ####Budget Clerk: CAROLE CID ([id number])[facility] ([facility])[address] [place] [address] Bilirubin [Mass/Vol] 0.3 mg/dL Normal <1.2 [facility] Comment on above: Performed By: #### Mago AB103, LAB17, [id number] ####Budget Clerk: CAROLE CID ([id number])[facility])[address] [place] [address] Calcium [Mass/Vol] 8.4 mg/dL Low 8.8-10.0 [facility] Comment on above: Performed By: #### Mago ABOri, LAB17, [id number] ####Budget Clerk: CAROLE CID ([id number])[facility] ([facility])[address] [place] [address] Chloride [Moles/Vol] 108 mmol/L High 98-107 [facility] Comment on above: Performed By: #### Mago [id number], LAB17, [id number] ####Budget Clerk: CAROLE CID ([id number])[facility] ([facility])[address] [place] [address] CO2 [Moles/Vol] 26 mmol/L Normal 23-31 [facility] Comment on above: Performed By: #### Mago GALICIA, LAB17, [id number] ####Budget Clerk: CAROLE CID ([id number])[facility])[address] [place] [address] Creatinine [Mass/Vol] 0.53 mg/dL Low 0.57-1.11 [facility] Comment on above: Performed By: #### Mago GALICIA, LAB17, [id number] ####Budget Clerk: CAROLE CID ([id number])[facility])[address] [place] [address] GLOMERULAR FILTRATION RATE ML/MIN/1.73 SQ M.PREDICTED >90.0 Normal >60.0 [facility] Comment on above: Result Comment: Calc ulation based on the Chronic Kidney Disease Epidemiology Collaboration (CKD-EPI) equation refit without adjustment for race Performed By: #### L AB103, LAB17, [id number] ####Budget Clerk: CAROLE CID ([id number])[facility] ([facility])[address] [place] [address] Glucose [Mass/Vol] 140 mg/dL High 82-115 [facility] Comment on above: Performed By: #### L AB103, LAB17, [id number] ####Budget Clerk: CAROLE CID ([id number])[facility])[address] [place] [address] Potassium [Moles/Vol] 4.0 mmol/L Normal 3.5-5.1 [facility] Comment on above: Result Comment: [facility] potassium values may be up to 0.5 mmol/L lower than serum values. Performed By: #### Mago AB103, LAB17, [id number] ####Budget Clerk: CAROLE CID ([id number])[facility] ([facility])[address] [place] [address] Protein [Mass/Vol] 5.8 g/dL Low 6.4-8.3 [facility] Comment on above: Performed By: #### Mago GALICIA, LAB17, [id number] ####Budget Clerk: CAROLE CID ([id number])[facility] ([facility])[address] [place] [address] Sodium [Moles/Vol] 139 mmol/L Normal 136-145 [facility] Comment on above: Performed By: #### Mago AB103, LAB17, [id number] ####Budget Clerk: CAROLE CID ([id number])[facility])[address] [place] [address] Urea nitrogen [Mass/Vol] 14 mg/dL Normal 9-23 [facility] Comment on above: Performed By: #### L AB103, LAB17, [id number] ####Budget Clerk: CAROLE CID ([id number])[facility])[address] [place] [address] [place] Calcium.ionized [Moles/Vol]o n 12-25-2024 Calcium.ionized (Bld) [Moles/Vol] 4.2 mg/dL Low 4.30 - 5.20 mg/dL [facility] Interpretation and review of laboratory results Abnormal [facility] PH, IONIZED CALCIUM 7.49 High 7.31 - 7.46 [facility] Comprehensive metabolic 1998 panelon 12-25-2024 Albumin [Mass/Vol] 2.2 g/dL Low 3.4 - 4.8 g/dL [facility] ALP [Catalytic activity/Vol] 71 U/L 40 - 150 U/L [facility] ALT [Catalytic activity/Vol] 25 U/L NINF - 30 U/L [facility] Anion gap [Moles/Vol] 5 mmol/L 3 - 13 mmol/L [facility] AST [Catalytic activity/Vol] 32 U/L NINF - 34 U/L [facility] Bilirubin [Mass/Vol] 0.3 mg/dL NINF - 1.2 mg/dL [facility] Calcium [Mass/Vol] 8.4 mg/dL Low 8.8 - 10. 0 mg/dL [facility] Chloride [Moles/Vol] 108 mmol/L High 98 - 10 7 mmol/L [facility] CO2 [Moles/Vol] 26 mmol/L 23 - 31 mmol/L [facility] Creatinine [Mass/Vol] 0.53 mg/dL Low 0.57 - 1.11 mg/dL [facility] GFR/1.73 sq M.predicted (S/P/Bld) [Vol rate/Area] - PINF [facility] Glucose [Mass/Vol] 140 mg/dL High 82 - 115 mg/dL [facility] Interpretation and review of laboratory results Abnormal [facility] Potassium [Moles/Vol] 4 mmol/L 3.5 - 5.1 mmol/L [facility] Protein [Mass/Vol] 5.8 g/dL Low 6.4 - 8.3 g/dL [facility] Sodium [Moles/Vol] 139 mmol/L 136 - 145 mmol/L [facility] Urea nitrogen [Mass/Vol] 14 mg/dL 9 - 23 mg/dL [facility] ECG 12-LEADon 12-25-2024 ECG 12-LEAD IMPRESSION: Atrial tachycardia Low voltage, precordial leads Consider anteroseptal infarct, old Electronically Signed On 12-25-2024 11:04:13 EDT by Abelardo Henriquez [facility] - Chemistry and C hemistry - challengeon 12-25-2024 Glucose [Mass/Vol] 159 mg/dL High 70 - 100 mg/dL [facility] Glucose [Mass/Vol] 156 mg/dL High 70 - 100 mg/dL [facility] Magnesium [Mass/Vol] 2.2 mg/dL 1.6 - 2 .6 mg/dL [facility] MAGNESIUMon 12-25-2024 Magnesium [Mass/Vol] 2.2 mg/dL Normal 1.6-2.6 [facility] Comment on above: Result Comment: OVIDIOE R COMMENTS:Higher values can be expected in females during menses. Performed By: #### L AB103, LAB17, [id number] ####Budget Clerk: CAROLE CID ([id number])[facility] ([facility] [place] [address] [place] Magnesium [Mass/Vol]on 12-25 [facility] No Panel Informationon 12-25 Interpretation and review of laboratory results Abnormal [facility] Interpretation and review of laboratory results Abnormal [facility] P [place] -24 degrees [facility] MT Interval 117 ms [facility] QRS [place] 29 degrees [facility] QRSD Interval 75 ms [facility] QT Interval 270 ms [facility] QTC Interval 429 ms [facility] T Wave [place] 69 degrees [facility] CV EPIPHANY [facility] Interpretation and review of laboratory results Normal [facility] PHOSPHORUSon 12-25-2024 Phosphate [Mass/Vol] 3.2 mg/dL Normal 2.3-4.7 [facility] Comment on above: Performed By: #### L AB103, LAB17, [id number] ####Budget Clerk: CAROLE CID ([id number])[facility] ([facility])[address] [place] [address] [place] Phosphate [Moles/Vol]on 11-29 Phosphate [Mass/Vol] 3.2 mg/dL 2.3 - 4 .7 mg/dL [facility] Progress Noteon 12-25-2024 Progress Note Normal [facility] Progress Note Normal [facility] Progress Note Normal [facility] Progress Note Normal [facility] Progress Note Normal [facility] Progress [facility] [facility] Vital signson 12-25-2024 Heart rate 152 /min bpm [facility] XR CHEST 1 VIEWon 12-25-2024 XR CHEST 1 VIEW Normal [facility] XR Chest Single viewon 12-25 [facility] RADIOLOGY SYSTEM [facility] Radiology Study observation (narrative) [facility] [id number] 12-24-2024 [id number] Normal [facility] BLOOD GAS ARTERIALon 025 AMOUNT OF OXYGEN 2 Normal [facility] Comment on above: Performed By: #### L [id number] ####Budget Clerk: CAROLE CID ([id number])[facility])[address] [place] [address] Base excess Calc (Bld) [Moles/Vol] 4.3 mmol/L High -3.0-3.0 [facility] Comment on above: Performed By: #### L [id number] ####Budget Clerk: CAROLE CID ([id number])[facility] ([facility])[address] [place] [address] CO2 [Moles/Vol] 28.3 mmol/L High 23.0-27.0 [facility] Comment on above: Performed By: #### L [id number] ####Budget Clerk: CAROLE CID ([id number])[facility] ([facility])[address] [place] [address] HCO3 (Bld) [Moles/Vol] 27.3 mmol/L High 21.0-25.0 [facility] Comment on above: Performed By: #### L [id number] ####Budget Clerk: CAROLE CID ([id number])[facility])[address] [place] [address] Hemoglobin (Bld) [Mass/Vol] 9.4 g/dL Normal Screen only [facility] Comment on above: Performed By: #### L [id number] ####Budget Clerk: CAROLE CID ([id number])[facility])[address] [place] [address] OXYGEN SATURATION (%) IN ARTERIAL BLOOD 97.2 % Normal 95.0-100.0 [facility] Comment on above: Performed By: #### L [id number] ####Budget Clerk: CAROLE [id number])[facility] ([facility])[address] [place] [address] PCO2 ARTERIAL 34.3 mm Hg Low >35.0-<45. 0 [facility] Comment on above: Performed By: #### L [id number] ####Budget Clerk: CAROLE CID ([id number])[facility])[address] [place] [address] PH ARTERIAL 7.518 High 7.350-7.45 0 [facility] Comment on above: Performed By: #### L [id number] ####Budget Clerk: CAROLE CID ([id number])[facility])[address] [place] [address] PO2 ARTERIAL 88.5 mm Hg Normal 80.0-100.0 [facility] Comment on above: Performed By: #### L [id number] ####Budget Clerk: CAROLE CID ([id number])[facility])[address] [place] [address] SOURCE OF OXYGEN Nasal Cannula (LPM) Normal [facility] Comment on above: Performed By: #### L [id number] ####Budget Clerk: CAROLE CID ([id number])[facility])[address] [place] [address] CALCIUM, IONIZEDon CALCIUM IONIZED 4.20 mg/dL Low 4.30-5.20 [facility] Comment on above: Performed By: #### L [id number] ####Budget Clerk: CAROLE CID ([id number])[facility])[address] [place] [address] PH, IONIZED CALCIUM 7.52 High 7.31-7.46 [facility] Comment on above: Performed By: #### L [id number] ####Budget Clerk: CAROLE CID ([id number])[facility])[address] [place] [address] CBC W Auto Differential pane l (Bld)on 12-24-2024 Basophils (Bld) [#/Vol] 0 10*3/uL 0.0 - 0.2 10*3/uL [facility] Basophils/100 WBC (Bld) 0.4 % 0.0 - 2.0 % [facility] Eosinophils (Bld) [#/Vol] 0 10*3/uL 0. 0 - 0.5 10*3/uL [facility] Eosinophils/100 WBC (Bld) 0.2 % 0. 0 - 6.0 % [facility] Erythrocyte distribution width (RBC) [Ratio] 15.9 % High 11.5 - 15.0 % [facility] Hematocrit (Bld) [Volume fraction] 27.9 % Low 35.0 - 47.0 % [facility] Hemoglobin (Bld) [Mass/Vol] 8.7 g/dL Low 11.7 - 16.0 g/dL [facility] Immature granulocytes (Bld) [#/Vol] 0.1 10*3/uL High NINF - 0.1 10*3/uL [facility] Immature granulocytes/100 WBC (Bld) 0.8 % 0.0 - 2.0 % [facility] Interpretation and review of laboratory results Abnormal [facility] Lymphocytes (Bld) [#/Vol] 2 10*3/uL 1. 0 - 4.3 10*3/uL [facility] Lymphocytes/100 WBC (Bld) 17.9 % 15 .0 - 45.0 % [facility] MCH (RBC) [Entitic mass] 29 pg 26. 0 - 34.0 pg [facility] MCHC (RBC) [Mass/Vol] 31.2 % 30.5 - 36.0 % [facility] MCV (RBC) [Entitic vol] 93 fL 77.0 - 99.0 fL [facility] Monocytes (Bld) [#/Vol] 1.1 10*3/uL High 0.0 - 0.9 10*3/uL [facility] Monocytes/100 WBC (Bld) 9.8 % 5.0 - 13.0 % [facility] Neutrophils (Bld) [#/Vol] 7.7 10*3/uL High 1. 8 - 7.5 10*3/uL [facility] Neutrophils/100 WBC (Bld) 70.9 % 38 .0 - 82.0 % [facility] Nucleated RBC/100 WBC (Bld) [Ratio] 0 % [facility] Platelet mean volume (Bld) [Entitic vol] 9.7 fL 9.0 - 12.7 fL [facility] Platelets (Bld) [#/Vol] 445 10*3/uL High 140 - 440 10*3/uL [facility] RBC (Bld) [#/Vol] 3 10*6/uL Low 3.80 - 5.20 10*6/uL [facility] WBC (Bld) [#/Vol] 10.9 10*3/uL High 3.6 - 10.7 10*3/uL [facility] CBC WITH AUTO DIFFERENTIALon 12-24-2024 Basophils (Bld) [#/Vol] 0.0 10*3/uL Normal 0.0-0.2 [facility] Comment on above: Performed By: #### L [id number] ####Budget Clerk: CAROLE CID ([id number])[facility] ([facility])[address] [place] [address] Basophils/100 WBC (Bld) 0.4 % Normal 0.0-2.0 S [facility] Comment on above: Performed By: #### L [id number] ####Budget Clerk: CAROLE CDI ([id number])[facility] ([facility])[address] [place] [address] Eosinophils (Bld) [#/Vol] 0.0 10*3/uL Normal 0.0-0.5 [facility] Comment on above: Performed By: #### L [id number] ####Budget Clerk: CAROLE CID ([id number])[facility] ([facility])[address] [place] [address] Eosinophils/100 WBC (Bld) 0.2 % Normal 0.0-6.0 [facility] Comment on above: Performed By: #### L [id number] ####Budget Clerk: CAROLE CID ([id number])[facility])[address] [place] [address] Erythrocyte distribution width (RBC) [Ratio] 15.9 % High 11.5-15.0 [facility] Comment on above: Performed By: #### L [id number] ####Budget Clerk: CAROLE CID ([id number])[facility])[address] [place] [address] Hematocrit (Bld) [Volume fraction] 27.9 % Low 35.0-47.0 [facility] Comment on above: Performed By: #### L [id number] ####Budget Clerk: CAROLE CID ([id number])[facility])[address] [place] [address] Hemoglobin (Bld) [Mass/Vol] 8.7 g/dL Low 11.7-16. 0 [facility] Comment on above: Performed By: #### L [id number] ####Budget Clerk: CAROLE CID ([id number])[facility])[address] [place] [address] IMMATURE GRANS % 0.8 % Normal 0.0-2.0 [facility] Comment on above: Performed By: #### L [id number] ####Budget Clerk: CAROLE CID ([id number])[facility])[address] [place] [address] IMMATURE GRANS ABSOLUTE 0.1 10*3/uL High <0.1 [facility] Comment on above: Performed By: #### L [id number] ####Budget Clerk: CAROLE CID ([id number])[facility])[address] [place] [address] Lymphocytes (Bld) [#/Vol] 2.0 10*3/uL Normal 1.0-4.3 [facility] Comment on above: Performed By: #### L [id number] ####Budget Clerk: CAROLE CID ([id number])[facility])[address] [place] [address] Lymphocytes/100 WBC (Bld) 17.9 % Normal 15.0-45.0 [facility] Comment on above: Performed By: #### L [id number] ####Budget Clerk: CAROLE CID ([id number])[facility])[address] [place] [address] MCH (RBC) [Entitic mass] 29.0 pg Normal 26.0-34.0 [facility] Comment on above: Performed By: #### L [id number] ####Budget Clerk: CAROLE CID ([id number])[facility])[address] [place] [address] MCHC 31.2 % Normal 30.5-36.0 [facility] Comment on above: Performed By: #### L [id number] ####Budget Clerk: CAROLE CID ([id number])[facility])[address] [place] [address] MCV (RBC) [Entitic vol] 93.0 fL Normal 77.0-99.0 S [facility] Comment on above: Performed By: #### L [id number] ####Budget Clerk: CAROLE CID ([id number])[facility])[address] [place] [address] Monocytes (Bld) [#/Vol] 1.1 10*3/uL High 0.0-0.9 [facility] Comment on above: Performed By: #### L [id number] ####Budget Clerk: CAROLE CID ([id number])[facility])[address] [place] [address] Monocytes/100 WBC (Bld) 9.8 % Normal 5.0-13.0 S [facility] Comment on above: Performed By: #### L [id number] ####Budget Clerk: CAROLE CID ([id number])[facility])[address] [place] [address] NEUTROPHILS ABSOLUTE 7.7 10*3/uL High 1.8-7.5 [facility] Comment on above: Performed By: #### L [id number] ####Budget Clerk: CAROLE CID ([id number])[facility])[address] [place] [address] Neutrophils/100 WBC (Bld) 70.9 % Normal 38.0-82.0 [facility] Comment on above: Performed By: #### L [id number] ####Budget Clerk: CAROLE CID ([id number])[facility] ([facility])[address] [place] [address] NRBC 0.0 /100 WBCs Normal 0.0-2.0 [facility] Comment on above: Performed By: #### L [id number] ####Budget Clerk: CAROLE CID ([id number])[facility])[address] [place] [address] Platelet mean volume (Bld) [Entitic vol] 9.7 fL Normal 9.0-12.7 [facility] Comment on above: Performed By: #### L [id number] ####Budget Clerk: CAROLE CID ([id number])[facility] ([facility])[address] [place] [address] Platelets (Bld) [#/Vol] 445 10*3/uL High 140-440 [facility] Comment on above: Performed By: #### L [id number] ####Budget Clerk: CAROLE CID ([id number])[facility])[address] [place] [address] RBC (Bld) [#/Vol] 3.00 10*6/uL Low 3.80-5.20 [facility] Comment on above: Performed By: #### L [id number] ####Budget Clerk: CAROLE CID ([id number])[facility])[address] [place] [address] WBC (Bld) [#/Vol] 10.9 10*3/uL High 3.6-10.7 [facility] Comment on above: Performed By: #### L [id number] ####Budget Clerk: CAROLE CID ([id number])[facility])[address] [place] [address] COMPREHENSIVE METABOLIC PANE Demetris 12-24-2024 Albumin [Mass/Vol] 2.0 g/dL Low 3.4-4.8 [facility] Comment on above: Performed By: #### L [id number], [id number], LAB17 ####Budget Clerk: CAROLE CID ([id number])[facility] ([facility])[address] [place] [address] ALP [Catalytic activity/Vol] 61 U/L Normal 40-150 [facility] Comment on above: Performed By: #### L [id number], [id number], LAB17 ####Budget Clerk: CAROLE CID ([id number])[facility] ([facility])[address] [place] [address] ALT [Catalytic activity/Vol] 23 U/L Normal <30 [facility] Comment on above: Performed By: #### L [id number], [id number], LAB17 ####Budget Clerk: CAROLE CID ([id number])[facility] ([facility])[address] [place] [address] Anion gap [Moles/Vol] 6 mmol/L Normal 3-13 [facility] Comment on above: Performed By: #### L [id number], [id number], LAB17 ####Budget Clerk: CAROLE CID ([id number])[facility] ([facility])[address] [place] [address] AST [Catalytic activity/Vol] 38 U/L High <34 [facility] Comment on above: Performed By: #### L [id number], [id number], LAB17 ####Budget Clerk: CAROLE CID ([id number])[facility] ([facility])[address] [place] [address] Bilirubin [Mass/Vol] 0.2 mg/dL Normal <1.2 [facility] Comment on above: Performed By: #### L [id number], [id number], LAB17 ####Budget Clerk: CAROLE CID ([id number])[facility])[address] [place] [address] Calcium [Mass/Vol] 8.2 mg/dL Low 8.8-10.0 [facility] Comment on above: Performed By: #### L AB103, [id number], LAB17 ####Budget Clerk: CAROLE CID ([id number])[facility] ([facility])[address] [place] [address] Chloride [Moles/Vol] 110 mmol/L High 98-107 [facility] Comment on above: Performed By: #### L [id number], [id number], LAB17 ####Budget Clerk: CAROLE CID ([id number])[facility])[address] [place] [address] CO2 [Moles/Vol] 26 mmol/L Normal 23-31 [facility] Comment on above: Performed By: #### L AB103, [id number], LAB17 ####Budget Clerk: CAROLE CID ([id number])[facility])[address] [place] [address] Creatinine [Mass/Vol] 0.50 mg/dL Low 0.57-1.11 [facility] Comment on above: Performed By: #### L AB103, [id number], LAB17 ####Budget Clerk: CAROLE CID ([id number])[facility] ([facility])[address] [place] [address] GLOMERULAR FILTRATION RATE ML/MIN/1.73 SQ M.PREDICTED >90.0 Normal >60.0 [facility] Comment on above: Result Comment: Calc ulation based on the Chronic Kidney Disease Epidemiology Collaboration (CKD-EPI) equation refit without adjustment for race Performed By: #### L AB103, [id number], LAB17 ####Budget Clerk: CAROLE CID ([id number])[facility])[address] [place] [address] Glucose [Mass/Vol] 114 mg/dL Normal 82-115 [facility] Comment on above: Performed By: #### L AB103, [id number], LAB17 ####Budget Clerk: CAROLE CID ([id number])[facility])[address] [place] [address] Potassium [Moles/Vol] 3.8 mmol/L Normal 3.5-5.1 [facility] Comment on above: Result Comment: [facility] potassium values may be up to 0.5 mmol/L lower than serum values. Performed By: #### L AB103, [id number], LAB17 ####Budget Clerk: CAROLE CID ([id number])[facility])[address] [place] [address] Protein [Mass/Vol] 5.2 g/dL Low 6.4-8.3 [facility] Comment on above: Performed By: #### L AB103, [id number], LAB17 ####Budget Clerk: CAROLE CID ([id number])[facility] ([facility])[address] [place] [address] Sodium [Moles/Vol] 142 mmol/L Normal 136-145 [facility] Comment on above: Performed By: #### L AB103, [id number], LAB17 ####Budget Clerk: CAROLE CID ([id number])[facility])[address] [place] [address] Urea nitrogen [Mass/Vol] 14 mg/dL Normal 9-23 [facility] Comment on above: Performed By: #### L AB103, [id number], LAB17 ####Budget Clerk: CAROLE CID ([id number])[address] Calcium.ionized [Moles/Vol]O rdered By: Rustam Barahona on 12-24-2024 Calcium.ionized (Bld) [Moles/Vol] 4.2 mg/dL Low 4.30 - 5.20 mg/dL [facility] Interpretation and review of laboratory results Abnormal [facility] PH, IONIZED CALCIUM 7.52 High 7.31 - 7.46 [facility] Comprehensive metabolic 1998 panelon 12-24-2024 Albumin [Mass/Vol] 2 g/dL Low 3.4 - 4.8 g/dL [facility] ALP [Catalytic activity/Vol] 61 U/L 40 - 150 U/L [facility] ALT [Catalytic activity/Vol] 23 U/L NINF - 30 U/L [facility] Anion gap [Moles/Vol] 6 mmol/L 3 - 13 mmol/L [facility] AST [Catalytic activity/Vol] 38 U/L High NINF - 34 U/L [facility] Bilirubin [Mass/Vol] 0.2 mg/dL NINF - 1.2 mg/dL [facility] Calcium [Mass/Vol] 8.2 mg/dL Low 8.8 - 10. 0 mg/dL [facility] Chloride [Moles/Vol] 110 mmol/L High 98 - 10 7 mmol/L [facility] CO2 [Moles/Vol] 26 mmol/L 23 - 31 mmol/L [facility] Creatinine [Mass/Vol] 0.5 mg/dL Low 0.57 - 1.11 mg/dL [facility] GFR/1.73 sq M.predicted (S/P/Bld) [Vol rate/Area] - PINF [facility] Glucose [Mass/Vol] 114 mg/dL 82 - 115 mg/dL [facility] Interpretation and review of laboratory results Abnormal [facility] Potassium [Moles/Vol] 3.8 mmol/L 3.5 - 5.1 mmol/L [facility] Protein [Mass/Vol] 5.2 g/dL Low 6.4 - 8.3 g/dL [facility] Sodium [Moles/Vol] 142 mmol/L 136 - 145 mmol/L [facility] Urea nitrogen [Mass/Vol] 14 mg/dL 9 - 23 mg/dL [facility] ECG 12-LEADon 12-24-2024 ECG 12-LEAD IMPRESSION: Sinus tachycardia Electronically Signed On 12-24-2024 17:15:41 EDT by Noni Goodwin Normal [facility] Laboratory - Chemistry and C hemistry - challengeon 12-24-2024 Magnesium [Mass/Vol] 2.4 mg/dL 1.6 - 2 .6 mg/dL [facility] Base excess Calc (Bld) [Moles/Vol] 4.3 mmol/L High -3.0 - 3.0 mmol/L [facility] CO2 (Bld) [Partial pressure] 34.3 mm[Hg] Low - PINF [facility] CO2 [Moles/Vol] 28.3 mmol/L High 23.0 - 27.0 mmol/L [facility] HCO3 (Bld) [Moles/Vol] 27.3 mmol/L High 21.0 - 25.0 mmol/L [facility] Oxygen (Bld) [Partial pressure] 88.5 mm[Hg] [facility] pH (Bld) 7.518 [pH] High 7.350 - 7.450 [facility] - Coagulationon 0 12-24-2024 aPTT Coag (PPP) [Time] 30.7 s High 20.0 - 30.5 s [facility] INR Coag (PPP) [Relative time] 1.1 {INR} 0.9 - 1.1 [facility] PT Coag (Bld) [Time] 12 s 9.0 - 1 2.0 s [facility] Laboratory - Hematology and Cell countson 12-24-2024 Hemoglobin (Bld) [Mass/Vol] 9.4 g/dL Screen only [facility] MAGNESIUMon 12-24-2024 Magnesium [Mass/Vol] 2.4 mg/dL Normal 1.6-2.6 [facility] Comment on above: Result Comment: ANDRADE Rosario COMMENTS:Higher values can be expected in females during menses. Performed By: #### L AB103, [id number], LAB17 ####Budget Clerk: CAROLE CID ([id number])[address] Magnesium [Mass/Vol]on 12-24 [facility] No Panel InformationOrdered By: Noni Goodwin on 12-24-2024 P [place] 110 degrees [facility] Work Phone: MT Interval 145 ms [employer] Work Phone: QRS [place] 23 degrees [employer] Work Phone: QRSD Interval 85 ms [employer] Work Phone: QT Interval 330 ms [employer] Work Phone: QTC Interval 449 ms [employer] [facility] Work Phone: T Wave [place] 54 degrees [employer] Work Phone: [employer] Work Phone: No Panel Informationon 12-24 CV EPIPHANY [facility] Interpretation and review of laboratory results Abnormal [facility] Interpretation and review of laboratory results Normal [facility] Amount Of Oxygen 2 [facility] Interpretation and review of laboratory results Abnormal [facility] Source Of Oxygen Nasal Cannula (LPM) [facility] PHOSPHORUSon 12-24-2024 Phosphate [Mass/Vol] 2.5 mg/dL Normal 2.3-4.7 [facility] Comment on above: Performed By: #### L [id number], [id number], LAB17 ####Budget Clerk: CAROLE CID ([id number])[facility] ([facility])[address] [place] [address] PROTIME AND APTTon aPTT Coag (Bld) [Time] 30.7 s High 20.0-30.5 [facility] Comment on above: Performed By: #### L [id number] ####Budget Clerk: CAROLE CID ([id number])[facility] ([facility])[address] [place] [address] INR Coag (PPP) [Relative time] 1.1 {INR} Normal 0.9-1.1 [facility] Comment on above: Result Comment: Evgeny mmended Anticoagulant Therapy: SEE BELOW----- INR of 2.0 - 3.0 : - Prophylaxis of Venous Thrombosis (high-risk surgery) - Treatment of Venous Thrombosis - Treatment of Pulmonary Embolism (Includes tissue heart valves, Acute Myocardial Infarction to prevent systemic embolism, Valvular Heart Disease, and Atrial Fibrillation)----- INR of 2.5 - 3.5 : - Mechanical Prosthetic Valves (high risk) - If oral anticoagulant therapy is used to prevent Myocardial Infarction Performed By: #### L [id number] ####Budget Clerk: CAROLE CID ([id number])[facility] ([facility])[address] [place] [address] PT Coag (PPP) [Time] 12.0 s Normal 9.0-12.0 [facility] Comment on above: Performed By: #### L [id number] ####Budget Clerk: CAROLE CID ([id number])[facility])[address] [place] [address] Phosphate [Moles/Vol]on 11-29 Phosphate [Mass/Vol] 2.5 mg/dL 2.3 - 4 .7 mg/dL [facility] Progress Noteon 12-24-2024 Progress Note Normal [facility] Progress Note Normal [facility] Progress Note Normal [facility] Progress Note Normal [facility] Progress Note Normal [facility] Progress Note Normal [facility] Vital signsOrdered By: Sandip Goodwin on 12-24-2024 Heart rate 111 /min bpm [facility] Work Phone: [phone] 12-23-2024 [id number] Normal [facility] BLOOD GAS ARTERIALon 025 AMOUNT OF OXYGEN 40 Normal [facility] Comment on above: Performed By: #### L [id number] ####Budget Clerk: CAROLE CID ([id number])[facility])[address] [place] [address] Base excess Calc (Bld) [Moles/Vol] 4.7 mmol/L High -3.0-3.0 [facility] Comment on above: Performed By: #### L [id number] ####Budget Clerk: CAROLE CID ([id number])[facility])[address] [place] [address] CO2 [Moles/Vol] 29.2 mmol/L High 23.0-27.0 [facility] Comment on above: Performed By: #### L [id number] ####Budget Clerk: CAROLE CID ([id number])[facility])[address] [place] [address] [place] HCO3 (Bld) [Moles/Vol] 28.1 mmol/L High 21.0-25.0 [facility] Comment on above: Performed By: #### L [id number] ####Budget Clerk: CAROEL CID ([id number])[facility])[address] [place] [address] Hemoglobin (Bld) [Mass/Vol] 9.0 g/dL Normal Screen only [facility] Comment on above: Performed By: #### L [id number] ####Budget Clerk: CAROLE CID ([id number])[facility])[address] [place] [address] [place] OXYGEN SATURATION (%) IN ARTERIAL BLOOD 98.0 % Normal 95.0-100.0 [facility] Comment on above: Performed By: #### L [id number] ####Budget Clerk: CAROLE CID ([id number])[facility])[address] [place] [address] PCO2 ARTERIAL 36.5 mm Hg Normal >35.0-<45. 0 [facility] Comment on above: Performed By: #### L [id number] ####Budget Clerk: CAROLE CID ([id number])[facility] ([facility])[address] [place] [address] PH ARTERIAL 7.504 High 7.350-7.45 0 [facility] Comment on above: Performed By: #### L [id number] ####Budget Clerk: CAROLE CID ([id number])[facility])[address] [place] [address] PO2 ARTERIAL 101.5 mm Hg High 80.0-100.0 [facility] Comment on above: Performed By: #### L [id number] ####Budget Clerk: CAROLE CID ([id number])[facility])[address] [place] [address] SOURCE OF OXYGEN Ventilator Normal [facility] Comment on above: Performed By: #### L [id number] ####Budget Clerk: CAROLE CID ([id number])[facility])[address] [place] [address] CALCIUM, IONIZEDon 5 CALCIUM IONIZED 4.30 mg/dL Normal 4.30-5.20 [facility] Comment on above: Performed By: #### L [id number] ####Budget Clerk: CAROLE CID ([id number])[facility] [place])[address] [place] [address] PH, IONIZED CALCIUM 7.51 High 7.31-7.46 [facility] Comment on above: Performed By: #### L [id number] ####Budget Clerk: CAROLE CID ([id number])[facility])[address] [place] [address] CBC W Auto Differential pane l (Bld)on 12-23-2024 Basophils (Bld) [#/Vol] 0.1 10*3/uL 0.0 - 0.2 10*3/uL [facility] Basophils/100 WBC (Bld) 0.4 % 0.0 - 2.0 % [facility] Eosinophils (Bld) [#/Vol] 0 10*3/uL 0. 0 - 0.5 10*3/uL [facility] Eosinophils/100 WBC (Bld) 0.1 % 0. 0 - 6.0 % [facility] Erythrocyte distribution width (RBC) [Ratio] 16.1 % High 11.5 - 15.0 % [facility] Hematocrit (Bld) [Volume fraction] 27.7 % Low 35.0 - 47.0 % [facility] Hemoglobin (Bld) [Mass/Vol] 8.9 g/dL Low 11.7 - 16.0 g/dL [facility] Immature granulocytes (Bld) [#/Vol] 0.1 10*3/uL High NINF - 0.1 10*3/uL [facility] Immature granulocytes/100 WBC (Bld) 1 % 0.0 - 2.0 % [facility] Interpretation and review of laboratory results Abnormal [facility] Lymphocytes (Bld) [#/Vol] 1.4 10*3/uL 1. 0 - 4.3 10*3/uL [facility] Lymphocytes/100 WBC (Bld) 10.3 % Low 15 .0 - 45.0 % [facility] MCH (RBC) [Entitic mass] 29.6 pg 26. 0 - 34.0 pg [facility] MCHC (RBC) [Mass/Vol] 32.1 % 30.5 - 36.0 % [facility] MCV (RBC) [Entitic vol] 92 fL 77.0 - 99.0 fL [facility] Monocytes (Bld) [#/Vol] 1 10*3/uL High 0.0 - 0.9 10*3/uL [facility] Monocytes/100 WBC (Bld) 7.3 % 5.0 - 13.0 % [facility] Neutrophils (Bld) [#/Vol] 10.9 10*3/uL High 1. 8 - 7.5 10*3/uL [facility] Neutrophils/100 WBC (Bld) 80.9 % 38 .0 - 82.0 % [facility] Nucleated RBC/100 WBC (Bld) [Ratio] 0 % [facility] Platelet mean volume (Bld) [Entitic vol] 9.6 fL 9.0 - 12.7 fL [facility] Platelets (Bld) [#/Vol] 413 10*3/uL 140 - 440 10*3/uL [facility] RBC (Bld) [#/Vol] 3.01 10*6/uL Low 3.80 - 5.20 10*6/uL [facility] WBC (Bld) [#/Vol] 13.5 10*3/uL High 3.6 - 10.7 10*3/uL [facility] CBC WITH AUTO DIFFERENTIALon 12-23-2024 Basophils (Bld) [#/Vol] 0.1 10*3/uL Normal 0.0-0.2 [facility] Comment on above: Performed By: #### L [id number] ####Budget Clerk: CAROLE CID ([id number])[facility])[address] [place] [address] Basophils/100 WBC (Bld) 0.4 % Normal 0.0-2.0 [facility] Comment on above: Performed By: #### L [id number] ####Budget Clerk: CAROLE CID ([id number])[facility])[address] [place] [address] Eosinophils (Bld) [#/Vol] 0.0 10*3/uL Normal 0.0-0.5 [facility] Comment on above: Performed By: #### L [id number] ####Budget Clerk: CAROLE CID ([id number])[facility])[address] [place] [address] Eosinophils/100 WBC (Bld) 0.1 % Normal 0.0-6.0 [facility] Comment on above: Performed By: #### L [id number] ####Budget Clerk: CAROLE [id number])[facility])[address] [place] [address] Erythrocyte distribution width (RBC) [Ratio] 16.1 % High 11.5-15.0 [facility] Comment on above: Performed By: #### L [id number] ####Budget Clerk: CAROLE CID ([id number])[facility])[address] [place] [address] Hematocrit (Bld) [Volume fraction] 27.7 % Low 35.0-47.0 [facility] Comment on above: Performed By: #### L [id number] ####Budget Clerk: CAROLE CID ([id number])[facility])[address] [place] [address] Hemoglobin (Bld) [Mass/Vol] 8.9 g/dL Low 11.7-16. 0 [facility] Comment on above: Performed By: #### L [id number] ####Budget Clerk: CAROLE CID ([id number])[facility])[address] [place] [address] IMMATURE GRANS % 1.0 % Normal 0.0-2.0 [facility] Comment on above: Performed By: #### L [id number] ####Budget Clerk: CAROLE CID ([id number])[address] IMMATURE GRANS ABSOLUTE 0.1 10*3/uL High <0.1 [facility] Comment on above: Performed By: #### L [id number] ####Budget Clerk: CAROLE CID ([id number])[facility])[address] [place] [address] Lymphocytes (Bld) [#/Vol] 1.4 10*3/uL Normal 1.0-4.3 [facility] Comment on above: Performed By: #### L [id number] ####Budget Clerk: CAROLE CID ([id number])[facility])[address] [place] [address] [place] Lymphocytes/100 WBC (Bld) 10.3 % Low 15.0-45.0 [facility] Comment on above: Performed By: #### L [id number] ####Budget Clerk: CAROLE CID ([id number])[facility])[address] [place] [address] MCH (RBC) [Entitic mass] 29.6 pg Normal 26.0-34.0 [facility] Comment on above: Performed By: #### L [id number] ####Budget Clerk: CAROLE CID ([id number])[facility])[address] [place] [address] MCHC 32.1 % Normal 30.5-36.0 [facility] Comment on above: Performed By: #### L [id number] ####Budget Clerk: CAROLE CID ([id number])[address] MCV (RBC) [Entitic vol] 92.0 fL Normal 77.0-99.0 S [facility] Comment on above: Performed By: #### L [id number] ####Budget Clerk: CAROLE CID ([id number])[facility])[address] [place] [address] Monocytes (Bld) [#/Vol] 1.0 10*3/uL High 0.0-0.9 [facility] Comment on above: Performed By: #### L [id number] ####Budget Clerk: CAROLE CID ([id number])[facility])[address] [place] [address] Monocytes/100 WBC (Bld) 7.3 % Normal 5.0-13.0 S [facility] Comment on above: Performed By: #### L [id number] ####Budget Clerk: CAROLE CID ([id number])[address] NEUTROPHILS ABSOLUTE 10.9 10*3/uL High 1.8-7.5 [facility] Comment on above: Performed By: #### L [id number] ####Budget Clerk: CAROLE CID ([id number])[facility] [place] [address] Neutrophils/100 WBC (Bld) 80.9 % Normal 38.0-82.0 [facility] Comment on above: Performed By: #### L [id number] ####Budget Clerk: CAROLE CID ([id number])[facility] ([facility])[address] [place] [address] NRBC 0.0 /100 WBCs Normal 0.0-2.0 [facility] Comment on above: Performed By: #### L [id number] ####Budget Clerk: CAROLE CID ([id number])[facility] ([facility])[address] [place] [address] Platelet mean volume (Bld) [Entitic vol] 9.6 fL Normal 9.0-12.7 [facility] Comment on above: Performed By: #### L [id number] ####Budget Clerk: CAROLE CID ([id number])[facility] ([facility])[address] [place] [address] [place] Platelets (Bld) [#/Vol] 413 10*3/uL Normal 140-440 [facility] Comment on above: Performed By: #### L [id number] ####Budget Clerk: CAROLE CID ([id number])[facility] ([facility])[address] [place] [address] RBC (Bld) [#/Vol] 3.01 10*6/uL Low 3.80-5.20 [facility] Comment on above: Performed By: #### L [id number] ####Budget Clerk: CAROLE CID ([id number])[facility] ([facility])[address] [place] [address] [place] WBC (Bld) [#/Vol] 13.5 10*3/uL High 3.6-10.7 [facility] Comment on above: Performed By: #### L [id number] ####Budget Clerk: CAROLE CID ([id number])[facility] ([facility])[address] [place] [address] COMPREHENSIVE METABOLIC PANE Demetris 12-23-2024 Albumin [Mass/Vol] 2.0 g/dL Low 3.4-4.8 [facility] Comment on above: Performed By: #### Mago ABDarlene, LAB17, [id number] ####Budget Clerk: CAROLE CID ([id number])[facility] ([facility])[address] [place] [address] ALP [Catalytic activity/Vol] 65 U/L Normal 40-150 [facility] Comment on above: Performed By: #### Mago ABDarlene, LAB17, [id number] ####Budget Clerk: CAROLE CID ([id number])[facility] ([facility])[address] [place] [address] ALT [Catalytic activity/Vol] 20 U/L Normal <30 [facility] Comment on above: Performed By: #### Mago MILES, LAB17, [id number] ####Budget Clerk: CAROLE CID ([id number])[facility] ([facility])[address] [place] [address] Anion gap [Moles/Vol] 5 mmol/L Normal 3-13 [facility] Comment on above: Performed By: #### Mago MILES, LAB17, [id number] ####Budget Clerk: CAROLE CID ([id number])[facility] ([facility])[address] [place] [address] AST [Catalytic activity/Vol] 39 U/L High <34 [facility] Comment on above: Performed By: #### Mago MILES, LAB17, [id number] ####Budget Clerk: CAROLE CID ([id number])[facility] ([facility])[address] [place] [address] Bilirubin [Mass/Vol] 0.2 mg/dL Normal <1.2 [facility] Comment on above: Performed By: #### Mago ABDarlene, LAB17, [id number] ####Budget Clerk: CAROLE CID ([id number])[facility] ([facility])[address] [place] [address] Calcium [Mass/Vol] 8.4 mg/dL Low 8.8-10.0 [facility] Comment on above: Performed By: #### L AB113, LAB17, [id number] ####Budget Clerk: CAROLE CID ([id number])[facility] ([facility])[address] [place] [address] Chloride [Moles/Vol] 109 mmol/L High 98-107 [facility] Comment on above: Performed By: #### Mago ABDarlene, LAB17, [id number] ####Budget Clerk: CAROLE CID ([id number])[facility] ([facility])[address] [place] [address] CO2 [Moles/Vol] 25 mmol/L Normal 23-31 [facility] Comment on above: Performed By: #### Mago AB113, LAB17, [id number] ####Budget Clerk: CAROLE CID ([id number])[facility] ([facility])[address] [place] [address] Creatinine [Mass/Vol] 0.50 mg/dL Low 0.57-1.11 [facility] Comment on above: Performed By: #### Mago ABDarlene, LAB17, [id number] ####Budget Clerk: CAROLE CID ([id number])[facility])[address] [place] [address] GLOMERULAR FILTRATION RATE ML/MIN/1.73 SQ M.PREDICTED >90.0 Normal >60.0 [facility] Comment on above: Result Comment: Calc ulation based on the Chronic Kidney Disease Epidemiology Collaboration (CKD-EPI) equation refit without adjustment for race Performed By: #### L AB113, LAB17, [id number] ####Budget Clerk: CAROLE CID ([id number])[facility] ([facility])[address] [place] [address] [place] Glucose [Mass/Vol] 151 mg/dL High 82-115 [facility] Comment on above: Performed By: #### L AB113, LAB17, [id number] ####Budget Clerk: CAROLE CID ([id number])[facility])[address] [place] [address] Potassium [Moles/Vol] 4.1 mmol/L Normal 3.5-5.1 [facility] Comment on above: Result Comment: [facility] potassium values may be up to 0.5 mmol/L lower than serum values. Performed By: #### L AB113, LAB17, [id number] ####Budget Clerk: CAROLE CID ([id number])[facility])[address] [place] [address] Protein [Mass/Vol] 5.4 g/dL Low 6.4-8.3 [facility] Comment on above: Performed By: #### L AB113, LAB17, [id number] ####Budget Clerk: CAROLE CID ([id number])[facility])[address] [place] [address] Sodium [Moles/Vol] 139 mmol/L Normal 136-145 [facility] Comment on above: Performed By: #### Mago AB113, LAB17, [id number] ####Budget Clerk: CAROLE CID ([id number])[facility] ([facility])[address] [place] [address] Urea nitrogen [Mass/Vol] 14 mg/dL Normal 9-23 [facility] Comment on above: Performed By: #### L AB113, LAB17, [id number] ####Budget Clerk: CAROLE CID ([id number])[address] Calcium.ionized [Moles/Vol]o n 12-23-2024 Calcium.ionized (Bld) [Moles/Vol] 4.3 mg/dL 4.30 - 5.20 mg/dL [facility] Interpretation and review of laboratory results Abnormal [facility] PH, IONIZED CALCIUM 7.51 High 7.31 - 7.46 [facility] Comprehensive metabolic 1998 panelon 12-23-2024 Albumin [Mass/Vol] 2 g/dL Low 3.4 - 4.8 g/dL [facility] ALP [Catalytic activity/Vol] 65 U/L 40 - 150 U/L [facility] ALT [Catalytic activity/Vol] 20 U/L NINF - 30 U/L [facility] Anion gap [Moles/Vol] 5 mmol/L 3 - 13 mmol/L [facility] AST [Catalytic activity/Vol] 39 U/L High NINF - 34 U/L [facility] Bilirubin [Mass/Vol] 0.2 mg/dL NINF - 1.2 mg/dL [facility] Calcium [Mass/Vol] 8.4 mg/dL Low 8.8 - 10. 0 mg/dL [facility] Chloride [Moles/Vol] 109 mmol/L High 98 - 10 7 mmol/L [facility] CO2 [Moles/Vol] 25 mmol/L 23 - 31 mmol/L [facility] Creatinine [Mass/Vol] 0.5 mg/dL Low 0.57 - 1.11 mg/dL [facility] GFR/1.73 sq M.predicted (S/P/Bld) [Vol rate/Area] - PINF [facility] Glucose [Mass/Vol] 151 mg/dL High 82 - 115 mg/dL [facility] Potassium [Moles/Vol] 4.1 mmol/L 3.5 - 5.1 mmol/L [facility] Protein [Mass/Vol] 5.4 g/dL Low 6.4 - 8.3 g/dL [facility] Sodium [Moles/Vol] 139 mmol/L 136 - 145 mmol/L [facility] Urea nitrogen [Mass/Vol] 14 mg/dL 9 - 23 mg/dL [facility] ECG 12-LEADon 12-23-2024 ECG 12-LEAD IMPRESSION: Sinus tachycardia Electronically Signed On 12-23-2024 11:43:56 EDT by Maged Reagan Normal [facility] - Chemistry and C hemistry - challengeon 12-23-2024 Base excess Calc (Bld) [Moles/Vol] 4.7 mmol/L High -3.0 - 3.0 mmol/L [facility] CO2 (Bld) [Partial pressure] 36.5 mm[Hg] - PINF [facility] CO2 [Moles/Vol] 29.2 mmol/L High 23.0 - 27.0 mmol/L [facility] HCO3 (Bld) [Moles/Vol] 28.1 mmol/L High 21.0 - 25.0 mmol/L [facility] Oxygen (Bld) [Partial pressure] 101.5 mm[Hg] High [facility] pH (Bld) 7.504 [pH] High 7.350 - 7.450 [facility] Magnesium [Mass/Vol] 2.6 mg/dL 1.6 - 2 .6 mg/dL [facility] Laboratory - Coagulationon 0 12-23-2024 aPTT Coag (PPP) [Time] 31.3 s High 20.0 - 30.5 s [facility] INR Coag (PPP) [Relative time] 1.1 {INR} 0.9 - 1.1 [facility] PT Coag (Bld) [Time] 11.8 s 9.0 - 1 2.0 s [facility] Laboratory - Hematology and Cell countson 12-23-2024 Hemoglobin (Bld) [Mass/Vol] 9 g/dL Screen only [facility] MAGNESIUMon 12-23-2024 Magnesium [Mass/Vol] 2.6 mg/dL Normal 1.6-2.6 [facility] Comment on above: Result Comment: ANDRADE Rosario COMMENTS:Higher values can be expected in females during menses. Performed By: #### L AB113, LAB17, [id number] ####Budget Clerk: CAROLE CID ([id number])[facility] ([address] Magnesium [Mass/Vol]on 12-23 Interpretation and review of laboratory results Normal [facility] No Panel InformationOrdered By: Maged Reagan on 12-23-2024 P [place] 42 degrees [employer] Work Phone: MT Interval 115 ms [employer] Work Phone: QRS [place] 38 degrees [employer] Work Phone: QRSD Interval 75 ms [employer] Work Phone: QT Interval 284 ms [employer] Work Phone: QTC Interval 436 ms [employer] Work Phone: T Wave [place] 24 degrees [employer] Work Phone: [employer] Work Phone: No Panel Informationon 12-23 CV EPIPHANY [facility] Amount Of Oxygen 40 [facility] Interpretation and review of laboratory results Abnormal [facility] Source Of Oxygen Ventilator [facility] Interpretation and review of laboratory results Abnormal [facility] Interpretation and review of laboratory results Abnormal [facility] PHOSPHORUSon 12-23-2024 Phosphate [Mass/Vol] 2.1 mg/dL Low 2.3-4.7 [facility] Comment on above: Performed By: #### L AB113, LAB17, [id number] ####Budget Clerk: CAROLE CID ([id number])[facility])[address] [place] [address] PROTIME AND APTTon aPTT Coag (Bld) [Time] 31.3 s High 20.0-30.5 [facility] Comment on above: Performed By: #### L [id number] ####Budget Clerk: CAROLE CID ([id number])[facility])[address] [place] [address] INR Coag (PPP) [Relative time] 1.1 {INR} Normal 0.9-1.1 [facility] Comment on above: Result Comment: Evgeny mmended Anticoagulant Therapy: SEE BELOW----- INR of 2.0 - 3.0 : - Prophylaxis of Venous Thrombosis (high-risk surgery) - Treatment of Venous Thrombosis - Treatment of Pulmonary Embolism (Includes tissue heart valves, Acute Myocardial Infarction to prevent systemic embolism, Valvular Heart Disease, and Atrial Fibrillation)----- INR of 2.5 - 3.5 : - Mechanical Prosthetic Valves (high risk) - If oral anticoagulant therapy is used to prevent Myocardial Infarction Performed By: #### L [id number] ####Budget Clerk: CAROLE CID ([id number])[facility] ([facility])[address] [place] [address] PT Coag (PPP) [Time] 11.8 s Normal 9.0-12.0 [facility] Comment on above: Performed By: #### L [id number] ####Budget Clerk: CAROLE CID ([id number])[facility])[address] [place] [address] [place] Phosphate [Moles/Vol]on 11-29 Phosphate [Mass/Vol] 2.1 mg/dL Low 2.3 - 4 .7 mg/dL [facility] Progress Noteon 12-23-2024 Progress Note Normal [facility] Progress Note Normal [facility] Progress Note Normal [facility] Progress Note Normal [facility] Vital signsOrdered By: Maged Reagan on 12-23-2024 Heart rate 141 /min bpm [facility] Work Phone: XR CHEST 1 VIEWon 12-23-2024 XR CHEST 1 VIEW Normal [facility] XR Chest Single viewon 12-23 [facility] Radiology Study observation (narrative) [facility] BLOOD GAS ARTERIALon 025 AMOUNT OF OXYGEN 30% Normal [facility] Comment on above: Performed By: #### L [id number] ####Budget Clerk: CAROLE CID ([id number])[facility])[address] [place] [address] Base excess Calc (Bld) [Moles/Vol] 5.2 mmol/L High -3.0-3.0 [facility] Comment on above: Performed By: #### L [id number] ####Budget Clerk: CAROLE CID ([id number])[facility])[address] [place] [address] CO2 [Moles/Vol] 29.9 mmol/L High 23.0-27.0 [facility] Comment on above: Performed By: #### L AB76 ####Budget Clerk: CAROLE CID ([id number])[facility])[address] [place] [address] [place] HCO3 (Bld) [Moles/Vol] 28.7 mmol/L High 21.0-25.0 [facility] Comment on above: Performed By: #### L AB76 ####Budget Clerk: CAROLE CID ([id number])[facility])[address] [place] [address] Hemoglobin (Bld) [Mass/Vol] 8.7 g/dL Normal Screen only [facility] Comment on above: Performed By: #### L AB76 ####Budget Clerk: CAROLE CID ([id number])[facility])[address] [place] [address] OXYGEN SATURATION (%) IN ARTERIAL BLOOD 97.7 % Normal 95.0-100.0 [facility] Comment on above: Performed By: #### L AB76 ####Budget Clerk: CAROLE CID ([id number])[facility])[address] [place] [address] PCO2 ARTERIAL 37.5 mm Hg Normal >35.0-<45. 0 [facility] Comment on above: Performed By: #### L AB76 ####Budget Clerk: CAROLE CID ([id number])[facility])[address] [place] [address] PH ARTERIAL 7.502 High 7.350-7.45 0 [facility] Comment on above: Performed By: #### L AB76 ####Budget Clerk: CAROLE CID ([id number])[facility] ([facility])[address] [place] [address] PO2 ARTERIAL 96.4 mm Hg Normal 80.0-100.0 [facility] Comment on above: Performed By: #### L AB76 ####Budget Clerk: CAROLE CID ([id number])[facility])[address] [place] [address] SOURCE OF OXYGEN Ventilator Normal [facility] Comment on above: Performed By: #### L AB76 ####Budget Clerk: CAROLE CID ([id number])[facility])[address] [place] [address] CALCIUM, IONIZEDon 5 CALCIUM IONIZED 4.20 mg/dL Low 4.30-5.20 [facility] Comment on above: Performed By: #### L AB54 ####Budget Clerk: CAROLE CID ([id number])[facility])[address] [place] [address] PH, IONIZED CALCIUM 7.51 High 7.31-7.46 [facility] Comment on above: Performed By: #### L AB54 ####Budget Clerk: CAROLE CID ([id number])[address] CBC W Auto Differential pane l (Bld)on 12-22-2024 Basophils (Bld) [#/Vol] 0.1 10*3/uL 0.0 - 0.2 10*3/uL [facility] Basophils/100 WBC (Bld) 0.5 % 0.0 - 2.0 % [facility] Eosinophils (Bld) [#/Vol] 0 10*3/uL 0. 0 - 0.5 10*3/uL [facility] Eosinophils/100 WBC (Bld) 0.1 % 0. 0 - 6.0 % [facility] Erythrocyte distribution width (RBC) [Ratio] 16.2 % High 11.5 - 15.0 % [facility] Hematocrit (Bld) [Volume fraction] 26.7 % Low 35.0 - 47.0 % [facility] Hemoglobin (Bld) [Mass/Vol] 8.3 g/dL Low 11.7 - 16.0 g/dL [facility] Immature granulocytes (Bld) [#/Vol] 0.2 10*3/uL High NINF - 0.1 10*3/uL [facility] Immature granulocytes/100 WBC (Bld) 1.4 % 0.0 - 2.0 % [facility] Interpretation and review of laboratory results Abnormal [facility] Lymphocytes (Bld) [#/Vol] 1.9 10*3/uL 1. 0 - 4.3 10*3/uL [facility] Lymphocytes/100 WBC (Bld) 17.2 % 15 .0 - 45.0 % [facility] MCH (RBC) [Entitic mass] 28.9 pg 26. 0 - 34.0 pg [facility] MCHC (RBC) [Mass/Vol] 31.1 % 30.5 - 36.0 % [facility] MCV (RBC) [Entitic vol] 93 fL 77.0 - 99.0 fL [facility] Monocytes (Bld) [#/Vol] 1 10*3/uL High 0.0 - 0.9 10*3/uL [facility] Monocytes/100 WBC (Bld) 9.5 % 5.0 - 13.0 % [facility] Neutrophils (Bld) [#/Vol] 7.7 10*3/uL High 1. 8 - 7.5 10*3/uL [facility] Neutrophils/100 WBC (Bld) 71.3 % 38 .0 - 82.0 % [facility] Nucleated RBC/100 WBC (Bld) [Ratio] 0 % [facility] Platelet mean volume (Bld) [Entitic vol] 9.5 fL 9.0 - 12.7 fL [facility] Platelets (Bld) [#/Vol] 403 10*3/uL 140 - 440 10*3/uL [facility] RBC (Bld) [#/Vol] 2.87 10*6/uL Low 3.80 - 5.20 10*6/uL [facility] WBC (Bld) [#/Vol] 10.8 10*3/uL High 3.6 - 10.7 10*3/uL [facility] CBC WITH AUTO DIFFERENTIALon 12-22-2024 Basophils (Bld) [#/Vol] 0.1 10*3/uL Normal 0.0-0.2 [facility] Comment on above: Performed By: #### L [id number] ####Budget Clerk: CAROLE CID ([id number])[facility])[address] [place] [address] Basophils/100 WBC (Bld) 0.5 % Normal 0.0-2.0 S [facility] Comment on above: Performed By: #### L [id number] ####Budget Clerk: CAROLE CID ([id number])[facility] ([facility])[address] [place] [address] [place] Eosinophils (Bld) [#/Vol] 0.0 10*3/uL Normal 0.0-0.5 [facility] Comment on above: Performed By: #### L [id number] ####Budget Clerk: CAROLE CID ([id number])[facility])[address] [place] [address] [place] Eosinophils/100 WBC (Bld) 0.1 % Normal 0.0-6.0 [facility] Comment on above: Performed By: #### L [id number] ####Budget Clerk: CAROLE CID ([id number])[address] Erythrocyte distribution width (RBC) [Ratio] 16.2 % High 11.5-15.0 [facility] Comment on above: Performed By: #### L [id number] ####Budget Clerk: CAROLE CID ([id number])[address] Hematocrit (Bld) [Volume fraction] 26.7 % Low 35.0-47.0 [facility] Comment on above: Performed By: #### L [id number] ####Budget Clerk: CAROLE CID ([id number])[address] Hemoglobin (Bld) [Mass/Vol] 8.3 g/dL Low 11.7-16. 0 [facility] Comment on above: Performed By: #### L [id number] ####Budget Clerk: CAROLE CID ([id number])[address] IMMATURE GRANS % 1.4 % Normal 0.0-2.0 [facility] Comment on above: Performed By: #### L [id number] ####Budget Clerk: CAROLE CID ([id number])[address] IMMATURE GRANS ABSOLUTE 0.2 10*3/uL High <0.1 [facility] Comment on above: Performed By: #### L [id number] ####Budget Clerk: CAROLE CID ([id number])[address] Lymphocytes (Bld) [#/Vol] 1.9 10*3/uL Normal 1.0-4.3 [facility] Comment on above: Performed By: #### L [id number] ####Budget Clerk: CAROLE [id number])[facility])[address] [place] [address] Lymphocytes/100 WBC (Bld) 17.2 % Normal 15.0-45.0 [facility] Comment on above: Performed By: #### L [id number] ####Budget Clerk: CAROLE CID ([id number])[facility])[address] [place] [address] MCH (RBC) [Entitic mass] 28.9 pg Normal 26.0-34.0 [facility] Comment on above: Performed By: #### L [id number] ####Budget Clerk: CAROLE CID ([id number])[facility])[address] [place] [address] MCHC 31.1 % Normal 30.5-36.0 [facility] Comment on above: Performed By: #### L [id number] ####Budget Clerk: CAROLE CID ([id number])[facility])[address] [place] [address] MCV (RBC) [Entitic vol] 93.0 fL Normal 77.0-99.0 [facility] Comment on above: Performed By: #### L [id number] ####Budget Clerk: CAROLE CID ([id number])[facility])[address] [place] [address] Monocytes (Bld) [#/Vol] 1.0 10*3/uL High 0.0-0.9 [facility] Comment on above: Performed By: #### L [id number] ####Budget Clerk: CAROLE CID ([id number])[facility])[address] [place] [address] Monocytes/100 WBC (Bld) 9.5 % Normal 5.0-13.0 [facility] Comment on above: Performed By: #### L [id number] ####Budget Clerk: CRAOLE CID ([id number])[facility])[address] [place] [address] NEUTROPHILS ABSOLUTE 7.7 10*3/uL High 1.8-7.5 [facility] Comment on above: Performed By: #### L [id number] ####Budget Clerk: CAROLE CID ([id number])[facility] ([facility])[address] [place] [address] Neutrophils/100 WBC (Bld) 71.3 % Normal 38.0-82.0 [facility] Comment on above: Performed By: #### L [id number] ####Budget Clerk: CAROLE CID ([id number])[facility] ([facility])[address] [place] [address] NRBC 0.0 /100 WBCs Normal 0.0-2.0 [facility] Comment on above: Performed By: #### L [id number] ####Budget Clerk: CAROLE ICD ([id number])[facility] ([facility])[address] [place] [address] Platelet mean volume (Bld) [Entitic vol] 9.5 fL Normal 9.0-12.7 [facility] Comment on above: Performed By: #### L [id number] ####Budget Clerk: CAROLE CID ([id number])[facility] ([facility])[address] [place] [address] Platelets (Bld) [#/Vol] 403 10*3/uL Normal 140-440 [facility] Comment on above: Performed By: #### L [id number] ####Budget Clerk: CAROLE CID ([id number])[facility] ([facility])[address] [place] [address] [place] RBC (Bld) [#/Vol] 2.87 10*6/uL Low 3.80-5.20 [facility] Comment on above: Performed By: #### L [id number] ####Budget Clerk: CAROLE CID ([id number])[facility] ([facility])[address] [place] [address] [place] WBC (Bld) [#/Vol] 10.8 10*3/uL High 3.6-10.7 [facility] Comment on above: Performed By: #### L [id number] ####Budget Clerk: CAROLE CID ([id number])[facility])[address] [place] [address] CKon 12-22-2024 CK [Catalytic activity/Vol] 11 U/L Low 30-185 [facility] Comment on above: Performed By: #### L AB62, [id number], CPR222, LAB17, [id number] ####Budget Clerk: CAROLE CID ([id number])[facility] ([facility])[address] [place] [address] COMPREHENSIVE METABOLIC PANE Demetris 12-22-2024 Albumin [Mass/Vol] 1.9 g/dL Low 3.4-4.8 [facility] Comment on above: Performed By: #### L AB62, [id number], BMC200, LAB17, [id number] ####Budget Clerk: CAROLE CID ([id number])[facility] ([facility])[address] [place] [address] ALP [Catalytic activity/Vol] 60 U/L Normal 40-150 [facility] Comment on above: Performed By: #### L AB62, [id number], DSR476, LAB17, REV133 ####Budget Clerk: CAROLE CID ([id number])[facility])[address] [place] [address] ALT [Catalytic activity/Vol] 14 U/L Normal <30 [facility] Comment on above: Performed By: #### L AB62, YZU628, SRK672, LAB17, FBY382 ####Budget Clerk: CAROLE CID ([id number])[facility])[address] [place] [address] Anion gap [Moles/Vol] 6 mmol/L Normal 3-13 [facility] Comment on above: Performed By: #### L AB62, [id number], EWC130, LAB17, GIY698 ####Budget Clerk: CAROLE CID ([id number])[facility])[address] [place] [address] AST [Catalytic activity/Vol] 31 U/L Normal <34 [facility] Comment on above: Performed By: #### L AB62, NRC922, DED304, LAB17, PZT830 ####Budget Clerk: CAROLE CID ([id number])[facility])[address] [place] [address] Bilirubin [Mass/Vol] 0.2 mg/dL Normal <1.2 [facility] Comment on above: Performed By: #### L AB62, MGD407, ZJD774, LAB17, AXP235 ####Budget Clerk: CAROLE CID ([id number])[facility])[address] [place] [address] Calcium [Mass/Vol] 8.1 mg/dL Low 8.8-10.0 [facility] Comment on above: Performed By: #### L AB62, ZKQ628, TVK577, LAB17, DDU368 ####Budget Clerk: CAROLE CID ([id number])[facility] ([facility])[address] [place] [address] Chloride [Moles/Vol] 106 mmol/L Normal 98-107 [facility] Comment on above: Performed By: #### L AB62, APM988, IPU434, LAB17, BEI055 ####Budget Clerk: CAROLE CID ([id number])[facility] ([facility])[address] [place] [address] CO2 [Moles/Vol] 26 mmol/L Normal 23-31 [facility] Comment on above: Performed By: #### L AB62, GRU484, JOV511, LAB17, RWC446 ####Budget Clerk: CAROLE CID ([id number])[facility])[address] [place] [address] Creatinine [Mass/Vol] 0.49 mg/dL Low 0.57-1.11 [facility] Comment on above: Performed By: #### L AB62, UUD288, SCQ559, LAB17, JGA129 ####Budget Clerk: CAROLE CID ([id number])[address] GLOMERULAR FILTRATION RATE ML/MIN/1.73 SQ M.PREDICTED >90.0 Normal >60.0 [facility] Comment on above: Result Comment: Calc ulation based on the Chronic Kidney Disease Epidemiology Collaboration (CKD-EPI) equation refit without adjustment for race Performed By: #### L AB62, NPM026, JXC377, LAB17, JVS795 ####Budget Clerk: CAROLE CID ([id number])[facility])[address] [place] [address] Glucose [Mass/Vol] 130 mg/dL High 82-115 [facility] Comment on above: Performed By: #### L AB62, KRR652, UZS394, LAB17, TSE501 ####Budget Clerk: CAROLE CID ([id number])[address] Potassium [Moles/Vol] 4.0 mmol/L Normal 3.5-5.1 [facility] Comment on above: Result Comment: [facility] potassium values may be up to 0.5 mmol/L lower than serum values. Performed By: #### L AB62, ZXR507, MMK436, LAB17, EFM588 ####Budget Clerk: CAROLE CID ([id number])[address] Protein [Mass/Vol] 5.1 g/dL Low 6.4-8.3 [facility] Comment on above: Performed By: #### L AB62, OJZ499, TIO606, LAB17, NDQ407 ####Budget Clerk: CAROLE CID ([id number])[address] Sodium [Moles/Vol] 138 mmol/L Normal 136-145 [facility] Comment on above: Performed By: #### L AB62, LON112, LKM980, LAB17, OJP429 ####Budget Clerk: CAROLE CID ([id number])[address] Urea nitrogen [Mass/Vol] 14 mg/dL Normal 9-23 [facility] Comment on above: Performed By: #### L AB62, LBS660, SVD277, LAB17, XTY544 ####Budget Clerk: CAROLE CID ([id number])[facility] ([facility])[address] [place] [address] Calcium.ionized [Moles/Vol]o n 12-22-2024 Calcium.ionized (Bld) [Moles/Vol] 4.2 mg/dL Low 4.30 - 5.20 mg/dL [facility] Interpretation and review of laboratory results Abnormal [facility] PH, IONIZED CALCIUM 7.51 High 7.31 - 7.46 [facility] Comprehensive metabolic 1998 panelon 12-22-2024 Albumin [Mass/Vol] 1.9 g/dL Low 3.4 - 4.8 g/dL [facility] ALP [Catalytic activity/Vol] 60 U/L 40 - 150 U/L [facility] ALT [Catalytic activity/Vol] 14 U/L NINF - 30 U/L [facility] Anion gap [Moles/Vol] 6 mmol/L 3 - 13 mmol/L [facility] AST [Catalytic activity/Vol] 31 U[facility]L [facility]L [facility] Bilirubin [Mass/Vol] 0.2 mg/dL NINF - 1.2 mg/dL [facility] Calcium [Mass/Vol] 8.1 mg/dL Low 8.8 - 10. 0 mg/dL [facility] Chloride [Moles/Vol] 106 mmol/L 98 - 10 7 mmol/L [facility] CO2 [Moles/Vol] 26 mmol/L 23 - 31 mmol/L [facility] Creatinine [Mass/Vol] 0.49 mg/dL Low 0.57 - 1.11 mg/dL [facility] GFR/1.73 sq M.predicted (S/P/Bld) [Vol rate/Area] - PINF [facility] Glucose [Mass/Vol] 130 mg/dL High 82 - 115 mg/dL [facility] Potassium [Moles/Vol] 4 mmol/L 3.5 - 5.1 mmol/L [facility] Protein [Mass/Vol] 5.1 g/dL Low 6.4 - 8.3 g/dL [facility] Sodium [Moles/Vol] 138 mmol/L 136 - 145 mmol/L [facility] Urea nitrogen [Mass/Vol] 14 mg/dL 9 - 23 mg/dL [facility] Laboratory - Chemistry and C hemistry - challengeon 12-22-2024 Triglyceride [Mass/Vol] 159 mg/dL High NINF - 150 mg/dL [facility] CK [Catalytic activity/Vol] 11 U/L Low 30 - 185 U/L [facility] Magnesium [Mass/Vol] 2.5 mg/dL 1.6 - 2 .6 mg/dL [facility] Base excess Calc (Bld) [Moles/Vol] 5.2 mmol/L High -3.0 - 3.0 mmol/L [facility] CO2 (Bld) [Partial pressure] 37.5 mm[Hg] - PINF [facility] CO2 [Moles/Vol] 29.9 mmol/L High 23.0 - 27.0 mmol/L [facility] HCO3 (Bld) [Moles/Vol] 28.7 mmol/L High 21.0 - 25.0 mmol/L [facility] Oxygen (Bld) [Partial pressure] 96.4 mm[Hg] [facility] pH (Bld) 7.502 [pH] High 7.350 - 7.450 [facility] Laboratory - Coagulationon 0 12-22-2024 aPTT Coag (PPP) [Time] 30.5 s 20.0 - 30.5 s [facility] INR Coag (PPP) [Relative time] 1.1 {INR} 0.9 - 1.1 [facility] PT Coag (Bld) [Time] 11.9 s 9.0 - 1 2.0 s [facility] Laboratory - Hematology and Cell countson 12-22-2024 Hemoglobin (Bld) [Mass/Vol] 8.7 g/dL Screen only [facility] MAGNESIUMon 12-22-2024 Magnesium [Mass/Vol] 2.5 mg/dL Normal 1.6-2.6 [facility] Comment on above: Result Comment: ANDRADE R COMMENTS:Higher values can be expected in females during menses. Performed By: #### L AB62, [id number], HTA964, LAB17, WCV965 ####Budget Clerk: CAROLE CID ([id number])[facility])[address] [place] [address] Magnesium [Mass/Vol]on 12-22 [facility] No Panel Informationon 12-22 Interpretation and review of laboratory results Abnormal [facility] Interpretation and review of laboratory results Normal [facility] Interpretation and review of laboratory results Normal [facility] Amount Of Oxygen 30% [facility] Interpretation and review of laboratory results Abnormal [facility] Source Of Oxygen Ventilator [facility] PHOSPHORUSon 12-22-2024 Phosphate [Mass/Vol] 2.6 mg/dL Normal 2.3-4.7 [facility] Comment on above: Performed By: #### L AB62, [id number], WQD803, LAB17, GYT257 ####Budget Clerk: CAROLE CID ([id number])[facility])[address] [place] [address] PROTIME AND APTTon aPTT Coag (Bld) [Time] 30.5 s Normal 20.0-30.5 [facility] Comment on above: Performed By: #### L [id number] ####Budget Clerk: CAROLE CID ([id number])[facility])[address] [place] [address] INR Coag (PPP) [Relative time] 1.1 {INR} Normal 0.9-1.1 [facility] Comment on above: Result Comment: Evgeny mmended Anticoagulant Therapy: SEE BELOW----- INR of 2.0 - 3.0 : - Prophylaxis of Venous Thrombosis (high-risk surgery) - Treatment of Venous Thrombosis - Treatment of Pulmonary Embolism (Includes tissue heart valves, Acute Myocardial Infarction to prevent systemic embolism, Valvular Heart Disease, and Atrial Fibrillation)----- INR of 2.5 - 3.5 : - Mechanical Prosthetic Valves (high risk) - If oral anticoagulant therapy is used to prevent Myocardial Infarction Performed By: #### L [id number] ####Budget Clerk: CAROLE CID ([id number])[facility])[address] [place] [address] PT Coag (PPP) [Time] 11.9 s Normal 9.0-12.0 [facility] Comment on above: Performed By: #### L [id number] ####Budget Clerk: CAROLE CID ([id number])[facility])[address] [place] [address] Phosphate [Moles/Vol]on 11-29 Phosphate [Mass/Vol] 2.6 mg/dL 2.3 - 4 .7 mg/dL [facility] Progress Noteon 12-22-2024 Progress Note Normal [facility] Progress Note Normal [facility] Progress Note Normal [facility] Progress Note Normal [facility] Progress Note Normal [facility] TRIGLYCERIDESon 12-22-2024 Triglyceride [Mass/Vol] 159 mg/dL High <150 S [facility] Comment on above: Performed By: #### L AB62, [id number], EUK898, LAB17, QXM548 ####Budget Clerk: CAROLE CID ([id number])[facility] ([facility])[address] [place] [address] Triglyceride [Mass/Vol]on Interpretation and review of laboratory results Abnormal [facility] XR CHEST 1 VIEWon 12-22-2024 XR CHEST 1 VIEW Normal [facility] XR Chest Single viewon 12-22 [facility] Radiology Study observation (narrative) [facility] 30on 12-21-2024 30 Normal [facility] [id number] 12-21-2024 [id number] Normal [facility] BLOOD GAS ARTERIALon 025 AMOUNT OF OXYGEN 30 Normal [facility] Comment on above: Performed By: #### L [id number] ####Budget Clerk: CAROLE CID ([id number])[facility] ([facility])[address] [place] [address] Base excess Calc (Bld) [Moles/Vol] 5.6 mmol/L High -3.0-3.0 [facility] Comment on above: Performed By: #### L [id number] ####Budget Clerk: CAROLE CID ([id number])[facility])[address] [place] [address] CO2 [Moles/Vol] 30.1 mmol/L High 23.0-27.0 [facility] Comment on above: Performed By: #### L [id number] ####Budget Clerk: CAROLE CID ([id number])[facility] ([facility])[address] [place] [address] HCO3 (Bld) [Moles/Vol] 28.9 mmol/L High 21.0-25.0 [facility] Comment on above: Performed By: #### L [id number] ####Budget Clerk: CAROLE CID ([id number])[facility])[address] [place] [address] Hemoglobin (Bld) [Mass/Vol] 9.5 g/dL Normal Screen only [facility] Comment on above: Performed By: #### L [id number] ####Budget Clerk: CAROLE CID ([id number])[facility] ([facility])[address] [place] [address] OXYGEN SATURATION (%) IN ARTERIAL BLOOD 96.6 % Normal 95.0-100.0 [facility] Comment on above: Performed By: #### L [id number] ####Budget Clerk: CAROLE CID ([id number])[facility] ([facility])[address] [place] [address] PCO2 ARTERIAL 37.1 mm Hg Normal >35.0-<45. 0 [facility] Comment on above: Performed By: #### L [id number] ####Budget Clerk: CAROLE CID ([id number])[facility])[address] [place] [address] PH ARTERIAL 7.510 High 7.350-7.45 0 [facility] Comment on above: Performed By: #### L [id number] ####Budget Clerk: CAROLE CID ([id number])[facility] ([facility])[address] [place] [address] PO2 ARTERIAL 83.4 mm Hg Normal 80.0-100.0 [facility] Comment on above: Performed By: #### L [id number] ####Budget Clerk: CAROLE CID ([id number])[facility] ([facility])[address] [place] [address] SOURCE OF OXYGEN Ventilator Normal [facility] Comment on above: Performed By: #### L [id number] ####Budget Clerk: CAROLE CID ([id number])[facility] ([facility])[address] [place] [address] Bacteria identified Anaer cx Nom (Unsp spec)on 12-21-2024 Interpretation and review of laboratory results Normal [facility] CALCIUM, IONIZEDon CALCIUM IONIZED 3.80 mg/dL Low 4.30-5.20 [facility] Comment on above: Performed By: #### L AB54 ####Budget Clerk: CAROLE CID ([id number])[facility] ([facility])[address] [place] [address] PH, IONIZED CALCIUM 7.49 High 7.31-7.46 [facility] Comment on above: Performed By: #### L AB54 ####Budget Clerk: CAROLE CID ([id number])[facility] ([facility])[address] [place] [address] CBC W Auto Differential pane l (Bld)on 12-21-2024 Basophils (Bld) [#/Vol] 0.1 10*3/uL 0.0 - 0.2 10*3/uL [facility] Basophils/100 WBC (Bld) 0.3 % 0.0 - 2.0 % [facility] Eosinophils (Bld) [#/Vol] 0 10*3/uL 0. 0 - 0.5 10*3/uL [facility] Eosinophils/100 WBC (Bld) 0.1 % 0. 0 - 6.0 % [facility] Erythrocyte distribution width (RBC) [Ratio] 16.2 % High 11.5 - 15.0 % [facility] Hematocrit (Bld) [Volume fraction] 26.2 % Low 35.0 - 47.0 % [facility] Hemoglobin (Bld) [Mass/Vol] 8.4 g/dL Low 11.7 - 16.0 g/dL [facility] Immature granulocytes (Bld) [#/Vol] 0.3 10*3/uL High NINF - 0.1 10*3/uL [facility] Immature granulocytes/100 WBC (Bld) 1.5 % 0.0 - 2.0 % [facility] Interpretation and review of laboratory results Abnormal [facility] Lymphocytes (Bld) [#/Vol] 1.9 10*3/uL 1. 0 - 4.3 10*3/uL [facility] Lymphocytes/100 WBC (Bld) 10.3 % Low 15 .0 - 45.0 % [facility] MCH (RBC) [Entitic mass] 29.6 pg 26. 0 - 34.0 pg [facility] MCHC (RBC) [Mass/Vol] 32.1 % 30.5 - 36.0 % [facility] MCV (RBC) [Entitic vol] 92.3 fL 77.0 - 99.0 fL [facility] Monocytes (Bld) [#/Vol] 1.3 10*3/uL High 0.0 - 0.9 10*3/uL [facility] Monocytes/100 WBC (Bld) 7.4 % 5.0 - 13.0 % [facility] Neutrophils (Bld) [#/Vol] 14.5 10*3/uL High 1. 8 - 7.5 10*3/uL [facility] Neutrophils/100 WBC (Bld) 80.4 % 38 .0 - 82.0 % [facility] Nucleated RBC/100 WBC (Bld) [Ratio] 0 % [facility] Platelet mean volume (Bld) [Entitic vol] 9.9 fL 9.0 - 12.7 fL [facility] Platelets (Bld) [#/Vol] 394 10*3/uL 140 - 440 10*3/uL [facility] RBC (Bld) [#/Vol] 2.84 10*6/uL Low 3.80 - 5.20 10*6/uL [facility] WBC (Bld) [#/Vol] 18 10*3/uL High 3.6 - 10.7 10*3/uL [facility] CBC WITH AUTO DIFFERENTIALon 12-21-2024 Basophils (Bld) [#/Vol] 0.1 10*3/uL Normal 0.0-0.2 [facility] Comment on above: Performed By: #### L [id number] ####Budget Clerk: CAROLE CID ([id number])[facility])[address] [place] [address] Basophils/100 WBC (Bld) 0.3 % Normal 0.0-2.0 S [facility] Comment on above: Performed By: #### L [id number] ####Budget Clerk: CAROLE CID ([id number])[facility])[address] [place] [address] Eosinophils (Bld) [#/Vol] 0.0 10*3/uL Normal 0.0-0.5 [facility] Comment on above: Performed By: #### L [id number] ####Budget Clerk: CAROLE CID ([id number])[facility])[address] [place] [address] Eosinophils/100 WBC (Bld) 0.1 % Normal 0.0-6.0 [facility] Comment on above: Performed By: #### L [id number] ####Budget Clerk: CAROLE CID ([id number])[facility])[address] [place] [address] Erythrocyte distribution width (RBC) [Ratio] 16.2 % High 11.5-15.0 [facility] Comment on above: Performed By: #### L [id number] ####Budget Clerk: CAROLE CID ([id number])[facility])[address] [place] [address] Hematocrit (Bld) [Volume fraction] 26.2 % Low 35.0-47.0 [facility] Comment on above: Performed By: #### L [id number] ####Budget Clerk: CAROLE CID ([id number])[facility])[address] [place] [address] Hemoglobin (Bld) [Mass/Vol] 8.4 g/dL Low 11.7-16. 0 [facility] Comment on above: Performed By: #### L [id number] ####Budget Clerk: CAROLE CID ([id number])[facility])[address] [place] [address] IMMATURE GRANS % 1.5 % Normal 0.0-2.0 [facility] Comment on above: Performed By: #### L [id number] ####Budget Clerk: CAROLE CID ([id number])[facility])[address] [place] [address] IMMATURE GRANS ABSOLUTE 0.3 10*3/uL High <0.1 [facility] Comment on above: Performed By: #### L [id number] ####Budget Clerk: CAROLE CID ([id number])[facility])[address] [place] [address] Lymphocytes (Bld) [#/Vol] 1.9 10*3/uL Normal 1.0-4.3 [facility] Comment on above: Performed By: #### L [id number] ####Budget Clerk: CAROLE CID ([id number])[facility])[address] [place] [address] Lymphocytes/100 WBC (Bld) 10.3 % Low 15.0-45.0 [facility] Comment on above: Performed By: #### L [id number] ####Budget Clerk: CAROLE CID ([id number])[facility])[address] [place] [address] MCH (RBC) [Entitic mass] 29.6 pg Normal 26.0-34.0 [facility] Comment on above: Performed By: #### L [id number] ####Budget Clerk: CAROLE CID ([id number])[facility])[address] [place] [address] MCHC 32.1 % Normal 30.5-36.0 [facility] Comment on above: Performed By: #### L [id number] ####Budget Clerk: CAROLE CID ([id number])[facility])[address] [place] [address] MCV (RBC) [Entitic vol] 92.3 fL Normal 77.0-99.0 [facility] Comment on above: Performed By: #### L [id number] ####Budget Clerk: CAROLE CID ([id number])[facility] ([facility])[address] [place] [address] Monocytes (Bld) [#/Vol] 1.3 10*3/uL High 0.0-0.9 [facility] Comment on above: Performed By: #### L [id number] ####Budget Clerk: CAROLE CID ([id number])[facility] ([facility])[address] [place] [address] Monocytes/100 WBC (Bld) 7.4 % Normal 5.0-13.0 [facility] Comment on above: Performed By: #### L [id number] ####Budget Clerk: CAROLE CID ([id number])[facility])[address] [place] [address] NEUTROPHILS ABSOLUTE 14.5 10*3/uL High 1.8-7.5 [facility] Comment on above: Performed By: #### L [id number] ####Budget Clerk: CAROLE CID ([id number])[facility])[address] [place] [address] Neutrophils/100 WBC (Bld) 80.4 % Normal 38.0-82.0 [facility] Comment on above: Performed By: #### L [id number] ####Budget Clerk: CAROLE CID ([id number])[facility] ([facility])[address] [place] [address] NRBC 0.0 /100 WBCs Normal 0.0-2.0 [facility] Comment on above: Performed By: #### L [id number] ####Budget Clerk: CAROLE CID ([id number])[facility])[address] [place] [address] Platelet mean volume (Bld) [Entitic vol] 9.9 fL Normal 9.0-12.7 [facility] Comment on above: Performed By: #### L [id number] ####Budget Clerk: CAROLE CID ([id number])[facility] ([facility])[address] [place] [address] Platelets (Bld) [#/Vol] 394 10*3/uL Normal 140-440 [facility] Comment on above: Performed By: #### L [id number] ####Budget Clerk: CAROLE CID ([id number])[facility] ([facility])[address] [place] [address] RBC (Bld) [#/Vol] 2.84 10*6/uL Low 3.80-5.20 [facility] Comment on above: Performed By: #### L [id number] ####Budget Clerk: CAROLE CID ([id number])[facility] ([facility])[address] [place] [address] WBC (Bld) [#/Vol] 18.0 10*3/uL High 3.6-10.7 [facility] Comment on above: Performed By: #### L [id number] ####Budget Clerk: CAROLE CID ([id number])[facility] ([facility])[address] [place] [address] COMPREHENSIVE METABOLIC PANE Demetris 12-21-2024 Albumin [Mass/Vol] 1.9 g/dL Low 3.4-4.8 [facility] Comment on above: Performed By: #### L [id number], [id number], [id number], LAB17 ####Budget Clerk: CAROLE CID ([id number])[facility] ([facility])[address] [place] [address] ALP [Catalytic activity/Vol] 61 U/L Normal 40-150 [facility] Comment on above: Performed By: #### L [id number], [id number], [id number], LAB17 ####Budget Clerk: CAROLE CID ([id number])[facility])[address] [place] [address] ALT [Catalytic activity/Vol] U/L Normal <30 [facility] Comment on above: Performed By: #### L [id number], [id number], [id number], LAB17 ####Budget Clerk: CAROLE CID ([id number])[facility] ([facility])[address] [place] [address] Anion gap [Moles/Vol] 3 mmol/L Normal 3-13 [facility] Comment on above: Performed By: #### L AB103, [id number], [id number], LAB17 ####Budget Clerk: CAROLE CID ([id number])[facility] ([facility])[address] [place] [address] AST [Catalytic activity/Vol] 21 U/L Normal <34 [facility] Comment on above: Performed By: #### L [id number], [id number], [id number], LAB17 ####Budget Clerk: CAROLE CID ([id number])[facility] ([facility])[address] [place] [address] Bilirubin [Mass/Vol] 0.3 mg/dL Normal <1.2 [facility] Comment on above: Performed By: #### L [id number], [id number], [id number], LAB17 ####Budget Clerk: CAROLE CID ([id number])[facility] ([facility])[address] [place] [address] Calcium [Mass/Vol] 7.8 mg/dL Low 8.8-10.0 [facility] Comment on above: Performed By: #### L [id number], [id number], [id number], LAB17 ####Budget Clerk: CAROLE CID ([id number])[facility] ([facility])[address] [place] [address] [place] Chloride [Moles/Vol] 102 mmol/L Normal 98-107 [facility] Comment on above: Performed By: #### L [id number], [id number], [id number], LAB17 ####Budget Clerk: CAROLE CID ([id number])[facility])[address] [place] [address] [place] CO2 [Moles/Vol] 28 mmol/L Normal 23-31 [facility] Comment on above: Performed By: #### L AB103, [id number], [id number], LAB17 ####Budget Clerk: CAROLE CID ([id number])[facility])[address] [place] [address] Creatinine [Mass/Vol] 0.54 mg/dL Low 0.57-1.11 [facility] Comment on above: Performed By: #### L AB103, [id number], [id number], LAB17 ####Budget Clerk: CAROLE CID ([id number])[facility])[address] [place] [address] GLOMERULAR FILTRATION RATE ML/MIN/1.73 SQ M.PREDICTED >90.0 Normal >60.0 [facility] Comment on above: Result Comment: Calc ulation based on the Chronic Kidney Disease Epidemiology Collaboration (CKD-EPI) equation refit without adjustment for race Performed By: #### L AB103, [id number], [id number], LAB17 ####Budget Clerk: CAROLE CID ([id number])[facility])[address] [place] [address] Glucose [Mass/Vol] 139 mg/dL High 82-115 [facility] Comment on above: Performed By: #### L AB103, [id number], [id number], LAB17 ####Budget Clerk: CAROLE CID ([id number])[address] Potassium [Moles/Vol] 4.1 mmol/L Normal 3.5-5.1 [facility] Comment on above: Result Comment: [facility] potassium values may be up to 0.5 mmol/L lower than serum values. Performed By: #### L AB103, [id number], [id number], LAB17 ####Budget Clerk: CAROLE CID ([id number])[facility])[address] [place] [address] Protein [Mass/Vol] 4.9 g/dL Low 6.4-8.3 [facility] Comment on above: Performed By: #### L AB103, [id number], [id number], LAB17 ####Budget Clerk: CAROLE CID ([id number])[facility] ([facility])[address] [place] [address] Sodium [Moles/Vol] 133 mmol/L Low 136-145 [facility] Comment on above: Performed By: #### L AB103, [id number], [id number], LAB17 ####Budget Clerk: CAROLE CID ([id number])[facility] ([facility])[address] [place] [address] Urea nitrogen [Mass/Vol] 14 mg/dL Normal 9-23 [facility] Comment on above: Performed By: #### L AB103, [id number], [id number], LAB17 ####Budget Clerk: CAROLE CID ([id number])[facility] ([facility])[address] [place] [address] Calcium.ionized [Moles/Vol]O rdered By: Juan C Marks on 12-21-2024 Calcium.ionized (Bld) [Moles/Vol] 3.8 mg/dL Low 4.30 - 5.20 mg/dL [facility] Interpretation and review of laboratory results Abnormal [facility] PH, IONIZED CALCIUM 7.49 High 7.31 - 7.46 [facility] Comprehensive metabolic 1998 panelon 12-21-2024 Albumin [Mass/Vol] 1.9 g/dL Low 3.4 - 4.8 g/dL [facility] ALP [Catalytic activity/Vol] 61 U/L 40 - 150 U/L [facility] ALT [Catalytic activity/Vol] U/L NINF - 30 U/L [facility] Anion gap [Moles/Vol] 3 mmol/L 3 - 13 mmol/L [facility] AST [Catalytic activity/Vol] 21 U/L NINF - 34 U/L [facility] Bilirubin [Mass/Vol] 0.3 mg/dL NINF - 1.2 mg/dL [facility] Calcium [Mass/Vol] 7.8 mg/dL Low 8.8 - 10. 0 mg/dL [facility] Chloride [Moles/Vol] 102 mmol/L 98 - 10 7 mmol/L [facility] CO2 [Moles/Vol] 28 mmol/L 23 - 31 mmol/L [facility] Creatinine [Mass/Vol] 0.54 mg/dL Low 0.57 - 1.11 mg/dL [facility] GFR/1.73 sq M.predicted (S/P/Bld) [Vol rate/Area] - PINF [facility] Glucose [Mass/Vol] 139 mg/dL High 82 - 115 mg/dL [facility] Potassium [Moles/Vol] 4.1 mmol/L 3.5 - 5.1 mmol/L [facility] Protein [Mass/Vol] 4.9 g/dL Low 6.4 - 8.3 g/dL [facility] Sodium [Moles/Vol] 133 mmol/L Low 136 - 145 mmol/L [facility] Urea nitrogen [Mass/Vol] 14 mg/dL 9 - 23 mg/dL [facility] ECG 12-LEADon 12-21-2024 ECG 12-LEAD IMPRESSION: Sinus rhythm Low voltage, extremity and precordial leads Electronically Signed On 12-21-2024 13:39:21 EDT by Ankush Cuello Normal [facility] - Chemistry and C hemistry - challengeon 12-21-2024 Procalcitonin [Mass/Vol] 0.12 ng/mL High ISABELLA F - 0.07 ng/mL [facility] Magnesium [Mass/Vol] 2.4 mg/dL 1.6 - 2 .6 mg/dL [facility] Base excess Calc (Bld) [Moles/Vol] 5.6 mmol/L High -3.0 - 3.0 mmol/L [facility] CO2 (Bld) [Partial pressure] 37.1 mm[Hg] - PINF [facility] CO2 [Moles/Vol] 30.1 mmol/L High 23.0 - 27.0 mmol/L [facility] HCO3 (Bld) [Moles/Vol] 28.9 mmol/L High 21.0 - 25.0 mmol/L [facility] Oxygen (Bld) [Partial pressure] 83.4 mm[Hg] [facility] pH (Bld) 7.51 [pH] High 7.350 - 7.450 [facility] Laboratory - Coagulationon 0 12-21-2024 aPTT Coag (PPP) [Time] 32.5 s High 20.0 - 30.5 s [facility] INR Coag (PPP) [Relative time] 1.1 {INR} 0.9 - 1.1 [facility] PT Coag (Bld) [Time] 12 s 9.0 - 1 2.0 s [facility] - Hematology and Cell countson 12-21-2024 Hemoglobin (Bld) [Mass/Vol] 9.5 g/dL Screen only [facility] - Microbiology an d Antimicrobial susceptibilityon 12-21-2024 Bacteria identified Anaer cx Nom (Unsp spec) No growth at 5 days [facility] MAGNESIUMon 12-21-2024 Magnesium [Mass/Vol] 2.4 mg/dL Normal 1.6-2.6 [facility] Comment on above: Result Comment: ORDE R COMMENTS:Higher values can be expected in females during menses. Performed By: #### L AB103, [id number], [id number], LAB17 ####Budget Clerk: CAROLE CID ([id number])[facility] ([address] Magnesium [Mass/Vol]on 12-21 Interpretation and review of laboratory results Normal [facility] [employer] No Panel InformationOrdered By: Ankush Cuello on 12-21-2024 P [place] 104 degrees [employer] Work Phone: MT Interval 145 ms [employer] Work Phone: QRS [place] 48 degrees [employer] Work Phone: QRSD Interval 73 ms [employer] Work Phone: QT Interval 327 ms [employer] Work Phone: QTC Interval 413 ms [employer] Work Phone: T Wave [place] 70 degrees [employer] Work Phone: [employer] Work Phone: No Panel Informationon 12-21 CV EPIPHANY [facility] Interpretation and review of laboratory results Abnormal [facility] [employer] [facility] Interpretation and review of laboratory results Abnormal [facility] [employer] [facility] Amount Of Oxygen 30 [facility] Interpretation and review of laboratory results Abnormal [facility] Source Of Oxygen Ventilator [facility] [employer] No Panel InformationOrdered By: Sunil Zuniga on 12-21-2024 Case Report [facility] Work Phone: Case Screening Location [facility], [address] [place] [address] [place] [address]; CLIA: [id number]; Joint Commission: [id number]; CAP: [id number] [facility] Work Phone: Disclaimer m3hzkAYnLMOvbIBxYkRu MD UeLYKad8xxHBSjgKSzErNb MzNcZnRuYmpcdWMxXGRlZm Mks6ysm897aRQpa2fpILLz XbL8jSTsUFVuD99zOONJG5 87VQCdKQbub0squ0BvFOAj yJXln0V8DTZSJJyjWEYQTC m8uDxaW47wg0L5YbfgH7za PNPyZCViX9KjYS8cTRUxGc b6SIW3EHS1LCHzEMUqZ2Tf NO7aNQDfjDKgJJm2g0hbcF qwWERwLPJ6i5prICuqjyBk AC8lak7wdIy4g8qajhWyIV OzJDQdvIJXCCUcI0KodXfn Zo1fjFv7yNpdQiooGCW2Eg x5MM4dji73qjf2aKqaIXMt jzfcEpI4NDusXGYmrbomGB r4JSilFJKbsIB2NWPfqTOc Y6AwRIVpJJ1uwxc3PLG5QD dxWUMbTyI5BBBzuPTtTQKj oQqxILogj959ZWI1WaGzKH 5uN9Yot6I7pN5fjCIoCNKy sHNlUhKtKPOwfy0hiLFsBF zhn1ArHMB8ywG1rXZsrLEw SMPuXE43Hhceb4KmFphkMF G1DOTghcOxs5Ckk5wtOiMe qwRxG3icM0UsQWMnARRiWK BeCnDfioRkx7Xli9TlsXMw yJh6r3dtETJkQDUoyRxjx9 gvTOA8PFQvB4N6rUWjd1ug PJxdQBAljVN5rpC3JAHriN PtX8RjaM0hKMPfZG5rqlq5 s4doPBQ6QRinJOSsXnF1pp G9FFBewNTeHTZriRpkEFam h968HSK7MeVwGCLph0PeY7 CxxNwtE82zcBxyX58iWJVq oTxboN2wcKtdfW9rYuVcXe MyNFxxbFxwbGFpblxmMVxm vvK6OVahxpblNXBtRZtaX2 lzBgFcKVJojEwzEBxul1Qk FKLmFVAuWFVhOCkzY1egzF 9quaidLWhdFSUepExvt0lb UaIbtAD4HV8qaeYhHZTnvY yhnsP8wxUtlFetkP5piE8o xZimuV9cgMFjmPK8vxdnJZ luIHNpdHUgaHlicmlkaXph oKrxczlahE8eDNA9qYAhBI L4lIAuDWPlJYXlPLEkrH56 bv9roBLyewKkG9HpE8QquX WniFjnWcwljSGkaXQpJo6m lLIlEN5eLLYuzDIlA7TvAA 4gXHBhclxwYXIgVGhlIHVz XYRaCtRsazEyd0DppD6tTF LvZAVaLT00umTyguB7bEZf YWJvdmUgdGVzdHMgaXMgcm VndWxhdGVkIGFzIGFuIGFu LPl7qOMij2UoJ1cfcKWprx ZgH9DqqYKfDRXOMW5wCAxb p5AjiROptGWev4LwTUKsYU KzfE7pHHSyDI4uAPVsCMdl NJSffaHkbq2dcxAiRTLeYC BtP8AmucvdaHkptbIoZAGe sr4hqeJwHFE2LCWkCTEjpV iowEDauDEsQKDgawV0s1Oo TKTyb0ZeT7KixLElTCAyfF HwXXG2w1EbaQ3vATbobHYk WDGmYP9ioJDyCREyZICaQS FyZWQgYnkgdGhlIFVTIEZv r4BsGT1uVIWlpVzeHETeeE 0kj1RrWPRmo10zMKJIGMhb IFRoZSBGREEgaGFzIGRldG VybWluZWQgdGhhdCBzdWNo ESFhUWFzVW7sTDTfwoMmuN Flh2HshUEgnzSwl6SkgkMz VTRwFWM5AuAmmQUuWHNlqj UHfZxorS3pzC1xk4AedN7x YYhfhwVpoBVzCy4vzTOnAB 9uIHBhcmFmZmluIGVtYmVk PXZxSDSdr0F1EG6vURUyct 5lphibxCFqvS6ujEPqopFt AE4gKM9pW5X7aWQuTAViyd Eku7xtMNu4yNGuDNEfzFTa hJHkAegzVQZ5BMTzCRB4eq NrgiLsZKMggDoisQU9uIQn MRMhOATlZHYlJI02S8Xrj7 IoH3fgUZ09ZPNsMBDpSYEb piPec4trCMFxt3dnCNDpuF ObN7KqMUJnjYVdpsilZyOj SCT0GFRoLXI7mZAgLSYzN1 MvmSAsyLFjjQ26KB5mmCU8 MU8uCAQ6CDvloL2iDlHScQ 50jp6bxWI8k3NtVR4dB6Tt KMUqz7J5dvTxXEXyNE8usN BiZWVuIHZhbGlkYXRlZCBv jzRvZPMvfEUhSgeeCBK4vH HumNGwJzVZIAR3lKGeNTRu y4RtVEBwNADyibCcamSrKU ZzGFM3jRIuLRLkcYQfv19u K9p6UV7ybCklDVQwlMLrVC Mbi6NgzUZuoDe2eNPtJcRc PBfkJOXrRKoacKm7hEI9PA 9fWQJyS6GbL1tpzXNaZNQj MWZkfRDdnc0piIJaqV== [facility] Work Phone: Gross Description x2garSNkNYJzzBMABEF5 MD YuZF7uoFvniPy6mDokLJSu tfJ0lEBxYVora4rhVMZ3a8 zihsZSCuweEZTwMK5vYDjt TVHkEL9bMdFlYFOwBzThSV BhcGVydzEyMjQwXHBhcGVy wWQ4RSJvYH9raqqiESgkJW xwHDQdctD8HTVdlCTxW6Or YRQeYM7shxnhIYA4DANEBn ssPs3vbWOxfEJUMzvbIjHn FbUeHHDdMQBjXAEdk4cnck QYbwvhuQb2REv1YVMqFZWt rCUxd0Q6CXlfl7lcm1IwO7 Ude1YsSQh0mH5OPhzgQ29m c9Y5Xxm5UJRiWQg6IMboQS SiMYLxIur0YXx1P4pdVUNs IXrmPBTqTJefeXJzITk6GY upg5RinYRuKNi0LZxsEYEy Z8VfT1MxHCyhJqVxSWtwMX PoTZHtZKfyPINoY8SDPITn JlC3MooqDrAoPVn1QWhbRm MZGFD8MET9QIM3GKi3AXCm MT4qCPcfiLJaRXorWbgeGD ntL022MOqvFETaH1TfX8Zw XFxzZyBcXGlkIDUxMDAyIF boXEIrG3CJZNFjOmD6Xszl MnKyPCx9RRmhG4IFNOTtTC N1ImA3RhOsIoT0ZKr8EVFE Pa7oCesiICF2FwF3EDY0Wg P7FUjrnzgdBMv3JLDuWIax nqYuTEqqYyiiQEteC26dwX FyZCANClxwbGFpblxlcGlj TmVzdERvYzEgDQpcbHRycG CdBP5RBHq4odKyJVFgYLla czIwIEEgLSBPdGhlcjpcY2 YyICAgXHBhciANClxjZjAg MSBtTCBccHJvdGVjdHtcZm pihXB3FShhSkjgvS4sjHVY XRROBdeXFhfozgJqXL2XEK IZFnKQOD98CSU5EWJquPX1 DG90DHTwBHMpaGHpJCccS2 88Yovdj1K1t4iokKYmJIlh PpsofUAoucJ3TDjADMHKDX kRLpHcFG2dKCbZZ2GARfK0 YJB0EQNhsUM2WC36OLPmIL MjrSWlLCbxL542CGYaKDyz ZLk0evNiQRFsNiTjKUmhvh 33XJF0d7rrhJPtNNkzIygr bGLzcuU5BRzQBOWXIBqYPv EpWC8iCBuKT5GQPKbMTzud PYnhLqD4VhzqaYxcEsvcvi RrfKPtEbFZzH1qZUE4OBRy YNpqp1xaGAAoAYsve4PfBR oKXXABXB8VTM4gwSL8TApW XNNCJMvdBZtiJsT9MmizxM clUmrrbxPoyPZjYcXQeH4q lOunvH7xcPSdY6cjDeXfAB CiYhv4pSPlbiAfFVt7YOIo iUCfPC0RYHIya4QmM7G6HQ VvVUrdb5raTNXlSSjmp8Nh RVqNJWKTAY2QNK0usXM8OQ uWEAYWT8bTjGGaWMDjKGlq sQM2s2nkeJNar0v7EMinQH H0iYKeTAShz9ywlXBdEOra YhnbuRJqemB0CLmILLHLJT iBSbJdSP3sCHrAW8AXCfD0 MSU0VFH7uEB5Z687MVSpGY HtvRQrGEbyJ929YMOaSLxj YZj3dkYzJFPwQqFhDqSlXA BhciANClxiXGNmMiBNYXRl hvvkvYYnLBHknCRdTST3BZ lcVKhaFuXrUFGjgS3WeaSy IGFuZCAxIENlbGwgQmxvY2 arvjapqMLyYX8IPMCmvuZK ClxmMlxmczIyXHBhciANCl xuITLuWVMimBXMk8CeUMYK Zip1HL3QDMGuIDPsdSFRUL N8RV7aZKiwOYIzS1FrN8Ac vsI1r9qoxRtdh0XgbACtMY 1tqVZcAE2MDLMajkKdKUei hGabsM2nDQf8 [facility] Phone: Pathologist Interpretation Location [facility], [address] [place] [address]; CLIA: [id number]; Joint Commission: HCO [id number]; CAP: [id number] [facility] Phone: Pathology report final diagnosis Narrative h3qtgRCaLONfcWFgTQjkGs oztwXaAJHkjJWrV4Nzjfpq JTelDS2kUB2obRwjfWOtkC CmWMSbMsZjz6fls889lVAq o2epAABDAAkrDDSNXPm9xY hjO34qh0J9CyqaV7ooAQS3 BXugzpExbva2TWCivDO1XF j5CVMurKXildEjOnDwVKVx iNZuhIO9SMQtLS2zgudwJR sbLPvcNDGterZ0YOLvrYUn C6ZoUQFyES3zthyzXCC3QR qxRXRzKPK4XjNtQMBpl8Ph cuk7XwWvjSNxELcssOHkfq xmczIwXGNmMSBBICAtIEw1 LVMxIEludGVydmVydGVicm FdIGQof2GqBXCsdXUzpYGg ICSXbS6nBL7mVKYiRUXWt3 FkkfC8UHhoK2HdRVKeTLUq kjOJSeZANIgXO75OWiTqI5 AGITMzAKHEIbMYEhjDFN4t uFWtGEuiHcshdA3dsIikwh YtrrLfVW50QasaESGjeEGe fQ== [employer] Work Phone: [employer] a6eelGPlGWIgkDCwVTqh Nl ybhvYwRRPuiMIwV7Ngpcwy DNskZS3aTZ0guMmbjOGofZ MaEFGcEvPqr1slj336pDGe k7uoIYUASWkbVCYPIOx1bL vbC83la9Q1ChsbT96xaBEe UDV8FCIjVMJckFXlRPXoSX J1EUXmrGTpJ9buONXrTG2a hhikIKxuBLhkNOHoxNK7AK HlaUFnL8DpPCXuSMgjRKWh nrt1OwRmPf5oyXUhqUewAW xwYXJkXHBsYWluXGZzMjAg I4UmK8nhjLKcnAUfczLuZA falVfyJ99ehRKcpUB7AYKT BlGikgTrZZegtWj3GVUvw0 BkIUBuHH8qPJK3VV5mV6Ww eAMfpd4uIUQIVoXsedOqM4 1YOUYhKSAzYBzbdBz5YAFa m3GtPaIfE3AgCK6cI1LvcY Rgqj1rbBYazW== [employer] Work Phone: [employer] Phone: PHOSPHORUSon 12-21-2024 Phosphate [Mass/Vol] 1.5 mg/dL Low 2.3-4.7 [facility] Comment on above: Performed By: #### L [id number], [id number], [id number], LAB17 ####Budget Clerk: CAROLE CID ([id number])[facility])[address] [place] [address] PROCALCITONIN TESTon 025 PROCALCITONIN 0.12 ng/mL High <0.07 [facility] Comment on above: Result Comment: ANDRADE R COMMENTS:PCT <0.50 = Low risk of severe sepsis and/or septic shock.PCT >2.00 = High risk of severe sepsis and/or septic shock. Performed By: #### L AB103, [id number], [id number], LAB17 ####Budget Clerk: CAROLE CID ([id number])[address] PROTIME AND APTTon aPTT Coag (Bld) [Time] 32.5 s High 20.0-30.5 [facility] Comment on above: Performed By: #### L [id number] ####Budget Clerk: [employer]LE [employer] ([id number])[facility])[address] [place] [address] INR Coag (PPP) [Relative time] 1.1 {INR} Normal 0.9-1.1 [facility] Comment on above: Result Comment: Evgeny mmended Anticoagulant Therapy: SEE BELOW----- INR of 2.0 - 3.0 : - Prophylaxis of Venous Thrombosis (high-risk surgery) - Treatment of Venous Thrombosis - Treatment of Pulmonary Embolism (Includes tissue heart valves, Acute Myocardial Infarction to prevent systemic embolism, Valvular Heart Disease, and Atrial Fibrillation)----- INR of 2.5 - 3.5 : - Mechanical Prosthetic Valves (high risk) - If oral anticoagulant therapy is used to prevent Myocardial Infarction Performed By: #### L [id number] ####Budget Clerk: CAROLE CID ([id number])[facility])[address] [place] [address] PT Coag (PPP) [Time] 12.0 s Normal 9.0-12.0 [facility] Comment on above: Performed By: #### L [id number] ####Budget Clerk: CAROLE CID ([id number])[facility] ([facility])[address] [place] [address] [place] Phosphate [Moles/Vol]on 11-29 Phosphate [Mass/Vol] 1.5 mg/dL Low 2.3 - 4 .7 mg/dL [facility] Procalcitonin [Mass/Vol]on 0 12-21-2024 Interpretation and review of laboratory results Abnormal [facility] Progress Noteon 12-21-2024 Progress Note Normal [facility] Progress Note Normal [facility] Progress Note Vancomycin therapy h as been discontinued by Dr. Carver on 12/21/24. Thank you for the consult. Pharmacy signing off for vancomycin dosing. Chrissy Anguiano formerly [facility], PharmD Date: 12/21/24 Time: 10:15 AM Normal [facility] Progress Note Normal [facility] Progress Note Normal [facility] Vital signsOrdered By: Ankush Cuello on 12-21-2024 Heart rate 96 /min bpm [facility] [employer] Work Phone: XR CHEST 1 VIEWon 12-21-2024 XR CHEST 1 VIEW Normal [facility] XR Chest Single viewon 12-21 [facility] SYSTEM [facility] Radiology Study observation (narrative) [facility] XR Chest Single viewOrdered By: Jojo Briggs on 12-21-2024 [facility] Progression Labs Phone: BLOOD GAS ARTERIALon 025 AMOUNT OF OXYGEN .40 Normal [facility] Comment on above: Performed By: #### L [id number] ####Budget Clerk: CAROLE CID ([id number])[facility] ([facility])[address] [place] [address] [place] Base excess Calc (Bld) [Moles/Vol] 5.7 mmol/L High -3.0-3.0 [facility] Comment on above: Performed By: #### L [id number] ####Budget Clerk: CAROLE CID ([id number])[facility] ([facility])[address] [place] [address] [place] CO2 [Moles/Vol] 31.9 mmol/L High 23.0-27.0 [facility] Comment on above: Performed By: #### L [id number] ####Budget Clerk: CAROLE CID ([id number])[facility] ([facility])[address] [place] [address] HCO3 (Bld) [Moles/Vol] 30.5 mmol/L High 21.0-25.0 [facility] Comment on above: Performed By: #### L [id number] ####Budget Clerk: CAROLE CID ([id number])[facility] ([facility])[address] [place] [address] Hemoglobin (Bld) [Mass/Vol] 9.0 g/dL Normal Screen only [facility] Comment on above: Performed By: #### L [id number] ####Budget Clerk: CAROLE CID ([id number])[facility])[address] [place] [address] OXYGEN SATURATION (%) IN ARTERIAL BLOOD 98.1 % Normal 95.0-100.0 [facility] Comment on above: Performed By: #### L [id number] ####Budget Clerk: CAROLE CID ([id number])[facility])[address] [place] [address] PCO2 ARTERIAL 45.8 mm Hg High >35.0-<45. 0 [facility] Comment on above: Performed By: #### L [id number] ####Budget Clerk: CAROLE CID ([id number])[facility])[address] [place] [address] PH ARTERIAL 7.441 Normal 7.350-7.45 0 [facility] Comment on above: Performed By: #### L [id number] ####Budget Clerk: CAROLE CID ([id number])[facility])[address] [place] [address] PO2 ARTERIAL 106.8 mm Hg High 80.0-100.0 [facility] Comment on above: Performed By: #### L [id number] ####Budget Clerk: CAROLE CID ([id number])[facility] ([facility])[address] [place] [address] SOURCE OF OXYGEN Ventilator Normal [facility] Comment on above: Performed By: #### L [id number] ####Budget Clerk: CAROLE CID ([id number])[facility] ([facility])[address] [place] [address] Bacteria identified Aer cx N om (Unsp spec)on 12-20-2024 Gram Stain Result Many Polymorphonucle ar leukocytes per low power field [facility] Gram Stain Result No organisms seen [facility] CALCIUM, IONIZEDon CALCIUM IONIZED 4.00 mg/dL Low 4.30-5.20 [facility] Comment on above: Performed By: #### L [id number] ####Budget Clerk: CAROLE CID ([id number])[facility] ([facility])[address] [place] [address] PH, IONIZED CALCIUM 7.45 Normal 7.31-7.46 [facility] Comment on above: Performed By: #### L [id number] ####Budget Clerk: CAROLE CID ([id number])[facility] ([facility])[address] [place] [address] CBC W Auto Differential pane l (Bld)on 12-20-2024 Basophils (Bld) [#/Vol] 0.1 10*3/uL 0.0 - 0.2 10*3/uL [facility] Basophils/100 WBC (Bld) 0.7 % 0.0 - 2.0 % [facility] Eosinophils (Bld) [#/Vol] 0 10*3/uL 0. 0 - 0.5 10*3/uL [facility] Eosinophils/100 WBC (Bld) 0.1 % 0. 0 - 6.0 % [facility] Erythrocyte distribution width (RBC) [Ratio] 16 % High 11.5 - 15.0 % [facility] Hematocrit (Bld) [Volume fraction] 26 % Low 35.0 - 47.0 % [facility] Hemoglobin (Bld) [Mass/Vol] 8.2 g/dL Low 11.7 - 16.0 g/dL [facility] Immature granulocytes (Bld) [#/Vol] 0.5 10*3/uL High NINF - 0.1 10*3/uL [facility] Immature granulocytes/100 WBC (Bld) 4.7 % High 0.0 - 2.0 % [facility] Interpretation and review of laboratory results Abnormal [facility] Lymphocytes (Bld) [#/Vol] 1.6 10*3/uL 1. 0 - 4.3 10*3/uL [facility] Lymphocytes/100 WBC (Bld) 15.2 % 15 .0 - 45.0 % [facility] MCH (RBC) [Entitic mass] 28.9 pg 26. 0 - 34.0 pg [facility] MCHC (RBC) [Mass/Vol] 31.5 % 30.5 - 36.0 % [facility] MCV (RBC) [Entitic vol] 91.5 fL 77.0 - 99.0 fL [facility] Monocytes (Bld) [#/Vol] 1.2 10*3/uL High 0.0 - 0.9 10*3/uL [facility] Monocytes/100 WBC (Bld) 11.9 % 5.0 - 13.0 % [facility] Neutrophils (Bld) [#/Vol] 7 10*3/uL 1. 8 - 7.5 10*3/uL [facility] Neutrophils/100 WBC (Bld) 67.4 % 38 .0 - 82.0 % [facility] Nucleated RBC/100 WBC (Bld) [Ratio] 0 % [facility] Platelet mean volume (Bld) [Entitic vol] 9.5 fL 9.0 - 12.7 fL [facility] Platelets (Bld) [#/Vol] 372 10*3/uL 140 - 440 10*3/uL [facility] RBC (Bld) [#/Vol] 2.84 10*6/uL Low 3.80 - 5.20 10*6/uL [facility] WBC (Bld) [#/Vol] 10.3 10*3/uL 3.6 - 10.7 10*3/uL [facility] CBC WITH AUTO DIFFERENTIALon 12-20-2024 Basophils (Bld) [#/Vol] 0.1 10*3/uL Normal 0.0-0.2 [facility] Comment on above: Performed By: #### L [id number] ####Budget Clerk: CAROLE CID ([id number])[facility])[address] [place] [address] Basophils/100 WBC (Bld) 0.7 % Normal 0.0-2.0 S [facility] Comment on above: Performed By: #### L [id number] ####Budget Clerk: CAROLE CID ([id number])[facility])[address] [place] [address] Eosinophils (Bld) [#/Vol] 0.0 10*3/uL Normal 0.0-0.5 [facility] Comment on above: Performed By: #### L [id number] ####Budget Clerk: CAROLE CID ([id number])[facility])[address] [place] [address] Eosinophils/100 WBC (Bld) 0.1 % Normal 0.0-6.0 [facility] Comment on above: Performed By: #### L [id number] ####Budget Clerk: CAROLE CID ([id number])[facility])[address] [place] [address] Erythrocyte distribution width (RBC) [Ratio] 16.0 % High 11.5-15.0 [facility] Comment on above: Performed By: #### L [id number] ####Budget Clerk: CAROLE CID ([id number])[facility])[address] [place] [address] Hematocrit (Bld) [Volume fraction] 26.0 % Low 35.0-47.0 [facility] Comment on above: Performed By: #### L [id number] ####Budget Clerk: CAROLE CID ([id number])[facility])[address] [place] [address] Hemoglobin (Bld) [Mass/Vol] 8.2 g/dL Low 11.7-16. 0 [facility] Comment on above: Performed By: #### L [id number] ####Budget Clerk: CAROLE [id number])[facility])[address] [place] [address] IMMATURE GRANS % 4.7 % High 0.0-2.0 [facility] Comment on above: Performed By: #### L [id number] ####Budget Clerk: CAROLE CID ([id number])[facility])[address] [place] [address] IMMATURE GRANS ABSOLUTE 0.5 10*3/uL High <0.1 [facility] Comment on above: Performed By: #### L [id number] ####Budget Clerk: CAROLE CID ([id number])[facility])[address] [place] [address] Lymphocytes (Bld) [#/Vol] 1.6 10*3/uL Normal 1.0-4.3 [facility] Comment on above: Performed By: #### L [id number] ####Budget Clerk: CAROLE CID ([id number])[facility])[address] [place] [address] Lymphocytes/100 WBC (Bld) 15.2 % Normal 15.0-45.0 [facility] Comment on above: Performed By: #### L [id number] ####Budget Clerk: CAROLE CID ([id number])[facility])[address] [place] [address] MCH (RBC) [Entitic mass] 28.9 pg Normal 26.0-34.0 [facility] Comment on above: Performed By: #### L [id number] ####Budget Clerk: CAROLE CID ([id number])[facility])[address] [place] [address] MCHC 31.5 % Normal 30.5-36.0 [facility] Comment on above: Performed By: #### L [id number] ####Budget Clerk: CAROLE CID ([id number])[facility])[address] [place] [address] MCV (RBC) [Entitic vol] 91.5 fL Normal 77.0-99.0 S [facility] Comment on above: Performed By: #### L [id number] ####Budget Clerk: CAROLE CID ([id number])[facility])[address] [place] [address] Monocytes (Bld) [#/Vol] 1.2 10*3/uL High 0.0-0.9 [facility] Comment on above: Performed By: #### L [id number] ####Budget Clerk: CAROLE CID ([id number])[facility] ([facility])[address] [place] [address] Monocytes/100 WBC (Bld) 11.9 % Normal 5.0-13.0 [facility] Comment on above: Performed By: #### L [id number] ####Budget Clerk: CAROLE CID ([id number])[facility])[address] [place] [address] NEUTROPHILS ABSOLUTE 7.0 10*3/uL Normal 1.8-7.5 [facility] Comment on above: Performed By: #### L [id number] ####Budget Clerk: CAROLE CID ([id number])[facility] ([facility])[address] [place] [address] Neutrophils/100 WBC (Bld) 67.4 % Normal 38.0-82.0 [facility] Comment on above: Performed By: #### L [id number] ####Budget Clerk: CAROLE CID ([id number])[facility])[address] [place] [address] NRBC 0.0 /100 WBCs Normal 0.0-2.0 [facility] Comment on above: Performed By: #### L [id number] ####Budget Clerk: CAROLE CID ([id number])[facility])[address] [place] [address] Platelet mean volume (Bld) [Entitic vol] 9.5 fL Normal 9.0-12.7 [facility] Comment on above: Performed By: #### L [id number] ####Budget Clerk: CAROLE CID ([id number])[facility] ([facility])[address] [place] [address] Platelets (Bld) [#/Vol] 372 10*3/uL Normal 140-440 [facility] Comment on above: Performed By: #### L [id number] ####Budget Clerk: CAROLE CID ([id number])[facility] ([facility])[address] [place] [address] RBC (Bld) [#/Vol] 2.84 10*6/uL Low 3.80-5.20 [facility] Comment on above: Performed By: #### L [id number] ####Budget Clerk: CAROLE CID ([id number])[facility] ([facility])[address] [place] [address] WBC (Bld) [#/Vol] 10.3 10*3/uL Normal 3.6-10.7 [facility] Comment on above: Performed By: #### L [id number] ####Budget Clerk: CAROLE CID ([id number])[facility] ([facility])[address] [place] [address] COMPREHENSIVE METABOLIC PANE Demetris 12-20-2024 Albumin [Mass/Vol] 2.0 g/dL Low 3.4-4.8 [facility] Comment on above: Performed By: #### L AB17, [id number], [id number] ####Budget Clerk: CAROLE CID ([id number])[facility] ([facility])[address] [place] [address] ALP [Catalytic activity/Vol] 58 U/L Normal 40-150 [facility] Comment on above: Performed By: #### L AB17, [id number], [id number] ####Budget Clerk: CAROLE CID ([id number])[facility])[address] [place] [address] ALT [Catalytic activity/Vol] U/L Normal <30 [facility] Comment on above: Performed By: #### L AB17, [id number], [id number] ####Budget Clerk: CAROLE CID ([id number])[facility] [place] [address] Anion gap [Moles/Vol] 2 mmol/L Low 3-13 [facility] Comment on above: Performed By: #### L AB17, [id number], [id number] ####Budget Clerk: CAROLE CID ([id number])[facility] [place] [address] AST [Catalytic activity/Vol] 19 U/L Normal <34 [facility] Comment on above: Performed By: #### L AB17, [id number], [id number] ####Budget Clerk: CAROLE CID ([id number])[facility] ([facility])[address] [place] [address] Bilirubin [Mass/Vol] 0.3 mg/dL Normal <1.2 [facility] Comment on above: Performed By: #### L AB17, [id number], [id number] ####Budget Clerk: CAROLE CID ([id number])[facility])[address] [place] [address] Calcium [Mass/Vol] 7.9 mg/dL Low 8.8-10.0 [facility] Comment on above: Performed By: #### L AB17, [id number], [id number] ####Budget Clerk: CAROLE CID ([id number])[facility])[address] [place] [address] [place] Chloride [Moles/Vol] 103 mmol/L Normal 98-107 [facility] Comment on above: Performed By: #### L AB17, [id number], [id number] ####Budget Clerk: CAROLE ICD ([id number])[facility] ([facility])[address] [place] [address] [place] CO2 [Moles/Vol] 29 mmol/L Normal 23-31 [facility] Comment on above: Performed By: #### L AB17, [id number], [id number] ####Budget Clerk: CAROLE CID ([id number])[facility] ([address] Creatinine [Mass/Vol] 0.47 mg/dL Low 0.57-1.11 [facility] Comment on above: Performed By: #### Mago AB17, [id number], [id number] ####Budget Clerk: CAROLE CID ([id number])[facility])[address] [place] [address] GLOMERULAR FILTRATION RATE ML/MIN/1.73 SQ M.PREDICTED >90.0 Normal >60.0 [facility] Comment on above: Result Comment: Calc ulation based on the Chronic Kidney Disease Epidemiology Collaboration (CKD-EPI) equation refit without adjustment for race Performed By: #### Mago [id number], [id number], [id number] ####Budget Clerk: CAROLE CID ([id number])[facility])[address] [place] [address] Glucose [Mass/Vol] 108 mg/dL Normal 82-115 [facility] Comment on above: Performed By: #### Mago AB17, [id number], [id number] ####Budget Clerk: CAROLE CID ([id number])[address] Potassium [Moles/Vol] 4.2 mmol/L Normal 3.5-5.1 [facility] Comment on above: Result Comment: [facility] potassium values may be up to 0.5 mmol/L lower than serum values. Performed By: #### Mago TAI, [id number], [id number] ####Budget Clerk: CAROLE CID ([id number])[facility])[address] [place] [address] Protein [Mass/Vol] 4.8 g/dL Low 6.4-8.3 [facility] Comment on above: Performed By: #### L AB17, [id number], [id number] ####Budget Clerk: CAROLE CID ([id number])[facility])[address] [place] [address] Sodium [Moles/Vol] 134 mmol/L Low 136-145 [facility] Comment on above: Performed By: #### L AB17, [id number], [id number] ####Budget Clerk: CAROLE CID ([id number])[facility])[address] [place] [address] Urea nitrogen [Mass/Vol] 10 mg/dL Normal 06-22 [facility] Comment on above: Performed By: #### L AB17, [id number], [id number] ####Budget Clerk: CAROLE CID ([id number])[facility] ([facility])[address] [place] [address] Calcium.ionized [Moles/Vol]o n 12-20-2024 Calcium.ionized (Bld) [Moles/Vol] 4 mg/dL Low 4.30 - 5.20 mg/dL [facility] Interpretation and review of laboratory results Abnormal [facility] PH, IONIZED CALCIUM 7.45 7.31 - 7.46 [facility] Comprehensive metabolic 1998 panelon 12-20-2024 Albumin [Mass/Vol] 2 g/dL Low 3.4 - 4.8 g/dL [facility] ALP [Catalytic activity/Vol] 58 U/L 40 - 150 U/L [facility] ALT [Catalytic activity/Vol] U/[facility]L [facility] Anion gap [Moles/Vol] 2 mmol/L Low 3 - 13 mmol/L [facility] AST [Catalytic activity/Vol] 19 U/L [facility] - [facility] U/L [facility] Bilirubin [Mass/Vol] 0.3 mg/dL [facility] - 1.2 mg/dL [facility] Calcium [Mass/Vol] 7.9 mg/dL Low 8.8 - 10. 0 mg/dL [facility] Chloride [Moles/Vol] 103 mmol/L 98 - 10 7 mmol/L [facility] CO2 [Moles/Vol] 29 mmol/L 23 - 31 mmol/L [facility] Creatinine [Mass/Vol] 0.47 mg/dL Low 0.57 - 1.11 mg/dL [facility] GFR/1.73 sq M.predicted (S/P/Bld) [Vol rate/Area] - PINF [facility] Glucose [Mass/Vol] 108 mg/dL 82 - 115 mg/dL [facility] Potassium [Moles/Vol] 4.2 mmol/L 3.5 - 5.1 mmol/L [facility] Protein [Mass/Vol] 4.8 g/dL Low 6.4 - 8.3 g/dL [facility] Sodium [Moles/Vol] 134 mmol/L Low 136 - 145 mmol/L [facility] Urea nitrogen [Mass/Vol] 10 mg/dL 9 - 23 mg/dL [facility] Laboratory - Chemistry and C hemistry - challengeon 12-20-2024 Magnesium [Mass/Vol] 1.9 mg/dL 1.6 - 2 .6 mg/dL [facility] Base excess Calc (Bld) [Moles/Vol] 5.7 mmol/L High -3.0 - 3.0 mmol/L [facility] CO2 (Bld) [Partial pressure] 45.8 mm[Hg] High - PINF [facility] CO2 [Moles/Vol] 31.9 mmol/L High 23.0 - 27.0 mmol/L [facility] HCO3 (Bld) [Moles/Vol] 30.5 mmol/L High 21.0 - 25.0 mmol/L [facility] Oxygen (Bld) [Partial pressure] 106.8 mm[Hg] High [facility] pH (Bld) 7.441 [pH] 7.350 - 7.450 [facility] Laboratory - Coagulationon 0 12-20-2024 aPTT Coag (PPP) [Time] 31.5 s High 20.0 - 30.5 s [facility] INR Coag (PPP) [Relative time] 1.1 {INR} 0.9 - 1.1 [facility] PT Coag (Bld) [Time] 12.3 s High 9.0 - 1 2.0 s [facility] - Hematology and Cell countson 12-20-2024 Hemoglobin (Bld) [Mass/Vol] 9 g/dL Screen only [facility] Laboratory - Microbiology an d Antimicrobial susceptibilityon 12-20-2024 Bacteria identified Aer cx Nom (Unsp spec) No growth at 4 days [facility] MAGNESIUMon 12-20-2024 Magnesium [Mass/Vol] 1.9 mg/dL Normal 1.6-2.6 [facility] Comment on above: Result Comment: ANDRADE R COMMENTS:Higher values can be expected in females during menses. Performed By: #### L AB17, [id number], [id number] ####Budget Clerk: CAROLE CID ([id number])[facility] ([facility])[address] [place] [address] Magnesium [Mass/Vol]on 12-20 Interpretation and review of laboratory results Normal [facility] No Panel Informationon 12-20 Interpretation and review of laboratory results Abnormal [facility] Interpretation and review of laboratory results Abnormal [facility] Source Of Oxygen Ventilator [facility] PHOSPHORUSon 12-20-2024 Phosphate [Mass/Vol] 1.9 mg/dL Low 2.3-4.7 [facility] Comment on above: Performed By: #### Mago TAI, [id number], [id number] ####Budget Clerk: CAROLE CID ([id number])[facility] ([facility])[address] [place] [address] PROTIME AND APTTon aPTT Coag (Bld) [Time] 31.5 s High 20.0-30.5 [facility] Comment on above: Performed By: #### Mago [id number] ####Budget Clerk: CAROLE CID ([id number])[facility])[address] [place] [address] INR Coag (PPP) [Relative time] 1.1 {INR} Normal 0.9-1.1 [facility] Comment on above: Result Comment: Evgeny mmended Anticoagulant Therapy: SEE BELOW----- INR of 2.0 - 3.0 : - Prophylaxis of Venous Thrombosis (high-risk surgery) - Treatment of Venous Thrombosis - Treatment of Pulmonary Embolism (Includes tissue heart valves, Acute Myocardial Infarction to prevent systemic embolism, Valvular Heart Disease, and Atrial Fibrillation)----- INR of 2.5 - 3.5 : - Mechanical Prosthetic Valves (high risk) - If oral anticoagulant therapy is used to prevent Myocardial Infarction Performed By: #### L [id number] ####Budget Clerk: CAROLE CID ([id number])[facility] ([facility])[address] [place] [address] PT Coag (PPP) [Time] 12.3 s High 9.0-12.0 [facility] Comment on above: Performed By: #### L [id number] ####Budget Clerk: CAROLE CID ([id number])[facility])[address] [place] [address] [place] Phosphate [Moles/Vol]on 11-29 Phosphate [Mass/Vol] 1.9 mg/dL Low 2.3 - 4 .7 mg/dL [facility] Progress Noteon 12-20-2024 Progress Note Normal [facility] Progress Note Normal [facility] Progress Note Normal [facility] Progress Note Normal [facility] XR CHEST 1 VIEWon 12-20-2024 XR CHEST 1 VIEW Normal [facility] XR Chest Single viewon 12-20 [facility] SYSTEM [facility] Radiology Study observation (narrative) [facility] 30on 12-19-2024 30 Normal [facility] BLOOD GAS ARTERIALon 025 AMOUNT OF OXYGEN 50 Normal [facility] Comment on above: Performed By: #### L [id number] ####Budget Clerk: CAORLE CID ([id number])[facility] ([facility])[address] [place] [address] Base excess Calc (Bld) [Moles/Vol] 6.8 mmol/L High -3.0-3.0 [facility] Comment on above: Performed By: #### L AB76 ####Budget Clerk: CAROLE CID ([id number])[facility] ([facility])[address] [place] [address] [place] CO2 [Moles/Vol] 32.1 mmol/L High 23.0-27.0 [facility] Comment on above: Performed By: #### L AB76 ####Budget Clerk: CAROLE CID ([id number])[facility] ([facility])[address] [place] [address] [place] HCO3 (Bld) [Moles/Vol] 30.9 mmol/L High 21.0-25.0 [facility] Comment on above: Performed By: #### L AB76 ####Budget Clerk: CAROLE CID ([id number])[facility] ([facility])[address] [place] [address] Hemoglobin (Bld) [Mass/Vol] 9.6 g/dL Normal Screen only [facility] Comment on above: Performed By: #### L AB76 ####Budget Clerk: CAROLE CID ([id number])[facility])[address] [place] [address] OXYGEN SATURATION (%) IN ARTERIAL BLOOD 98.4 % Normal 95.0-100.0 [facility] Comment on above: Performed By: #### L AB76 ####Budget Clerk: CAROLE CID ([id number])[facility])[address] [place] [address] PCO2 ARTERIAL 41.8 mm Hg Normal >35.0-<45. 0 [facility] Comment on above: Performed By: #### L AB76 ####Budget Clerk: CAROLE CID ([id number])[facility])[address] [place] [address] PH ARTERIAL 7.486 High 7.350-7.45 0 [facility] Comment on above: Performed By: #### L AB76 ####Budget Clerk: CAROLE CID ([id number])[facility])[address] [place] [address] PO2 ARTERIAL 140.4 mm Hg High 80.0-100.0 [facility] Comment on above: Performed By: #### L AB76 ####Budget Clerk: CAROLE CID ([id number])[facility])[address] [place] [address] SOURCE OF OXYGEN Ventilator Normal [facility] Comment on above: Performed By: #### L AB76 ####Budget Clerk: CAROLE CID ([id number])[facility])[address] [place] [address] CALCIUM, IONIZEDon 5 CALCIUM IONIZED 4.00 mg/dL Low 4.30-5.20 [facility] Comment on above: Performed By: #### L AB54 ####Budget Clerk: CAROLE CID ([id number])[facility])[address] [place] [address] PH, IONIZED CALCIUM 7.45 Normal 7.31-7.46 [facility] Comment on above: Performed By: #### L AB54 ####Budget Clerk: CAROLE CID ([id number])[facility])[address] [place] [address] CBC WITH AUTO DIFFERENTIALon 12-19-2024 Erythrocyte distribution width (RBC) [Ratio] 16.0 % High 11.5-15.0 [facility] Comment on above: Performed By: #### L [id number], [id number] ####Budget Clerk: CAROLE CID ([id number])[facility])[address] [place] [address] Hematocrit (Bld) [Volume fraction] 27.3 % Low 35.0-47.0 [facility] Comment on above: Performed By: #### L [id number], [id number] ####Budget Clerk: CAROLE ICD ([id number])[address] Hemoglobin (Bld) [Mass/Vol] 8.8 g/dL Low 11.7-16. 0 [facility] Comment on above: Performed By: #### L [id number], [id number] ####Budget Clerk: CAROLE CID ([id number])[facility])[address] [place] [address] MCH (RBC) [Entitic mass] 28.9 pg Normal 26.0-34.0 [facility] Comment on above: Performed By: #### L [id number], [id number] ####Budget Clerk: CAROLE CID ([id number])[address] MCHC 32.2 % Normal 30.5-36.0 [facility] Comment on above: Performed By: #### L [id number], [id number] ####Budget Clerk: CAROLE CID ([id number])[facility] ([facility])[address] [place] [address] MCV (RBC) [Entitic vol] 89.5 fL Normal 77.0-99.0 [facility] Comment on above: Performed By: #### L [id number], [id number] ####Budget Clerk: CAROLE CID ([id number])[facility] ([facility])[address] [place] [address] Platelet mean volume (Bld) [Entitic vol] 9.9 fL Normal 9.0-12.7 [facility] Comment on above: Performed By: #### L [id number], [id number] ####Budget Clerk: CAROLE CID ([id number])[facility] ([facility])[address] [place] [address] Platelets (Bld) [#/Vol] 459 10*3/uL High 140-440 [facility] Comment on above: Performed By: #### L [id number], [id number] ####Budget Clerk: CAROLE CID ([id number])[facility] ([facility])[address] [place] [address] RBC (Bld) [#/Vol] 3.05 10*6/uL Low 3.80-5.20 [facility] Comment on above: Performed By: #### L [id number], [id number] ####Budget Clerk: CAROLE CID ([id number])[facility] ([facility])[address] [place] [address] WBC (Bld) [#/Vol] 10.5 10*3/uL Normal 3.6-10.7 [facility] Comment on above: Performed By: #### L [id number], [id number] ####Budget Clerk: CAROLE CID ([id number])[facility] ([facility])[address] [place] [address] COMPREHENSIVE METABOLIC PANE Demetris 12-19-2024 Albumin [Mass/Vol] 2.4 g/dL Low 3.4-4.8 [facility] Comment on above: Performed By: #### L AB103, [id number], LAB17 ####Budget Clerk: CAROLE CID ([id number])[facility] ([facility])[address] [place] [address] ALP [Catalytic activity/Vol] 64 U/L Normal 40-150 [facility] Comment on above: Performed By: #### L AB103, [id number], LAB17 ####Budget Clerk: CAROLE CID ([id number])[facility] ([facility])[address] [place] [address] ALT [Catalytic activity/Vol] 6 U/L Normal <30 [facility] Comment on above: Performed By: #### Mago AB103, [id number], LAB17 ####Budget Clerk: CAROLE CID ([id number])[facility] ([facility])[address] [place] [address] Anion gap [Moles/Vol] 4 mmol/L Normal 3-13 [facility] Comment on above: Performed By: #### Mago AB103, [id number], LAB17 ####Budget Clerk: CAROLE CID ([id number])[facility] ([facility])[address] [place] [address] AST [Catalytic activity/Vol] 15 U/L Normal <34 [facility] Comment on above: Performed By: #### Mago ABOri, [id number], LAB17 ####Budget Clerk: CAROLE CID ([id number])[facility] ([facility])[address] [place] [address] Bilirubin [Mass/Vol] 0.4 mg/dL Normal <1.2 [facility] Comment on above: Performed By: #### L AB103, [id number], LAB17 ####Budget Clerk: CAROLE CID ([id number])[facility])[address] [place] [address] Calcium [Mass/Vol] 8.1 mg/dL Low 8.8-10.0 [facility] Comment on above: Performed By: #### L AB103, [id number], LAB17 ####Budget Clerk: CAROLE CID ([id number])[facility] ([facility])[address] [place] [address] Chloride [Moles/Vol] 103 mmol/L Normal 98-107 [facility] Comment on above: Performed By: #### L AB103, [id number], LAB17 ####Budget Clerk: CAROLE CID ([id number])[facility] [facility] [place] [address] CO2 [Moles/Vol] 31 mmol/L Normal 23-31 [facility] Comment on above: Performed By: #### Mago [id number], [id number], [id number] ####Budget Clerk: CAROLE CID ([id number])[facility])[address] [place] [address] Creatinine [Mass/Vol] 0.51 mg/dL Low 0.57-1.11 [facility] Comment on above: Performed By: #### Mago [id number], [id number], [id number] ####Budget Clerk: CAROLE CID ([id number])[facility] ([facility])[address] [place] [address] GLOMERULAR FILTRATION RATE ML/MIN/1.73 SQ M.PREDICTED >90.0 Normal >60.0 [facility] Comment on above: Result Comment: Calc ulation based on the Chronic Kidney Disease Epidemiology Collaboration (CKD-EPI) equation refit without adjustment for race Performed By: #### Mago ABOri, [id number], [id number] ####Budget Clerk: CAROLE CID ([id number])[facility] ([facility])[address] [place] [address] Glucose [Mass/Vol] 132 mg/dL High 82-115 [facility] Comment on above: Performed By: #### L [id number], [id number], LAB17 ####Budget Clerk: CAROLE CID ([id number])[facility])[address] [place] [address] Potassium [Moles/Vol] 4.0 mmol/L Normal 3.5-5.1 [facility] Comment on above: Result Comment: Plas al potassium values may be up to 0.5 mmol/L lower than serum values. Performed By: #### L [id number], [id number], LAB17 ####Budget Clerk: CAROLE CID ([id number])[facility])[address] [place] [address] Protein [Mass/Vol] 5.3 g/dL Low 6.4-8.3 [facility] Comment on above: Performed By: #### Mago AB103, [id number], LAB17 ####Budget Clerk: CAROLE CID ([id number])[facility])[address] [place] [address] Sodium [Moles/Vol] 138 mmol/L Normal 136-145 [facility] Comment on above: Performed By: #### Mago [id number], [id number], LAB17 ####Budget Clerk: CAROLE CID ([id number])[facility])[address] [place] [address] Urea nitrogen [Mass/Vol] 11 mg/dL Normal 9-23 [facility] Comment on above: Performed By: #### Mago [id number], [id number], LAB17 ####Budget Clerk: CAROLE CID ([id number])[facility])[address] [place] [address] MAGNESIUMon 12-19-2024 Magnesium [Mass/Vol] 1.9 mg/dL Normal 1.6-2.6 [facility] Comment on above: Result Comment: ANDRADE Rosario COMMENTS:Higher values can be expected in females during menses. Performed By: #### L [id number], [id number], LAB17 ####Budget Clerk: CAROLE CID ([id number])[facility])[address] [place] [address] MANUAL DIFFERENTIAL (CELLAVI SANDOR)on 12-19-2024 ANISOCYTOSIS PRESENCE IN BLOOD BY LIGHT MICROSCOPY Moderate Abnormal (none) [facility] Comment on above: Performed By: #### L [id number], [id number] ####Budget Clerk: CAROLE CID ([id number])[facility] [place] [address] [place] BAND NEUTROPHILS TOTAL PER COUNTED LEUKOCYTES BY MANUAL COUNT 3 Normal [facility] Comment on above: Performed By: #### L [id number], [id number] ####Budget Clerk: CAROLE CID ([id number])[facility] [place] [address] [place] BANDS (10*3/UL) IN BLOOD-CELLAVISION 0.3 10*3/uL High <=0.0 [facility] Comment on above: Performed By: #### L [id number], [id number] ####Budget Clerk: CAROLE CID ([id number])[facility] ([facility])[address] [place] [address] [place] BASOPHILS TOTAL PER COUNTED LEUKOCYTES BY MANUAL COUNT Normal [facility] Comment on above: Performed By: #### L [id number], [id number] ####Budget Clerk: CAROLE CID ([id number])[facility] ([facility])[address] [place] [address] [place] BLASTS TOTAL PER COUNTED LEUKOCYTES BY MANUAL COUNT Normal [facility] Comment on above: Performed By: #### L [id number], [id number] ####Budget Clerk: CAROLE CID ([id number])[facility] ([facility])[address] [place] [address] [place] EOSINOPHILS TOTAL PER COUNTED LEUKOCYTES BY MANUAL COUNT Normal [facility] Comment on above: Performed By: #### L [id number], [id number] ####Budget Clerk: CAROLE CID ([id number])[facility] [place] [address] [place] HYPOCHROMIA (PRESENCE) IN BLOOD BY LIGHT MICROSCOPY Moderate Abnormal (none) [facility] Comment on above: Performed By: #### L [id number], [id number] ####Budget Clerk: CAROLE CID ([id number])[facility] ([facility])[address] [place] [address] [place] LYMPHOCYTES (10*3/UL) IN BLOOD-CELLAVISION 2.1 10*3/uL Normal 1.0-4.3 [facility] Comment on above: Performed By: #### L [id number], [id number] ####Budget Clerk: CAROLE CID ([id number])[facility] ([facility])[address] [place] [address] [place] LYMPHOCYTES TOTAL PER COUNTED LEUKOCYTES BY MANUAL COUNT 20 Normal [facility] Comment on above: Performed By: #### L [id number], [id number] ####Budget Clerk: CAROLE CID ([id number])[facility] ([facility])[address] [place] [address] [place] LYMPHOCYTES/100 LEUKOCYTES IN BLOOD-CELLAVISION 20 % Normal 15-45 [facility] Comment on above: Performed By: #### L [id number], [id number] ####Budget Clerk: CAROLE CID ([id number])[facility] ([facility])[address] [place] [address] [place] MACROCYTES (PRESENCE) IN BLOOD BY LIGHT MICROSCOPY Moderate Abnormal (none) [facility] Comment on above: Performed By: #### L [id number], [id number] ####Budget Clerk: CAROLE CID ([id number])[facility])[address] [place] [address] [place] METAMYELOCYTES (10*3/UL) IN BLOOD-CELLAVISION 0.1 10*3/uL High <=0.0 [facility] Comment on above: Performed By: #### L [id number], [id number] ####Budget Clerk: CAROLE CID ([id number])[facility] ([facility])[address] [place] [address] [place] METAMYELOCYTES TOTAL PER COUNTED LEUKOCYTES BY MANUAL COUNT 1 Normal [facility] Comment on above: Performed By: #### L [id number], [id number] ####Budget Clerk: CAROLE CID ([id number])[facility])[address] [place] [address] [place] METAMYELOCYTES/100 LEUKOCYTES IN BLOOD-CELLAVISION 1 % High <=0 [facility] Comment on above: Performed By: #### L [id number], [id number] ####Budget Clerk: CAROLE CID ([id number])[facility] ([facility])[address] [place] [address] [place] MONOCYTES (10*3/UL) IN BLOOD-CELLAVISION 0.8 10*3/uL Normal 0.0-0.9 [facility] Comment on above: Performed By: #### L [id number], [id number] ####Budget Clerk: CAROLE CID ([id number])[facility] [place] [address] [place] MONOCYTES TOTAL PER COUNTED LEUKOCYTES BY MANUAL COUNT 8 Normal [facility] Comment on above: Performed By: #### L [id number], [id number] ####Budget Clerk: CAROLE CID ([id number])[facility] ([facility])[address] [place] [address] [place] MONOCYTES/100 LEUKOCYTES IN BLOOD-SARI 8 % Normal 5-13 [facility] Comment on above: Performed By: #### L [id number], [id number] ####Budget Clerk: CAROLE CID ([id number])[facility] ([facility])[address] [place] [address] [place] MYELOCYTES (10*3/UL) IN BLOOD-CELLAVISION 0.1 10*3/uL High <=0.0 [facility] Comment on above: Performed By: #### L [id number], [id number] ####Budget Clerk: CAROLE CID ([id number])[facility] [place] [address] [place] MYELOCYTES COUNTED BY MANUAL COUNT 1 Normal [facility] Comment on above: Performed By: #### L [id number], [id number] ####Budget Clerk: CAROLE CID ([id number])[facility] ([facility])[address] [place] [address] [place] MYELOCYTES/100 LEUKOCYTES IN BLOOD-CELLAVISION 1 % High <=0 [facility] Comment on above: Performed By: #### L [id number], [id number] ####Budget Clerk: CAROLE CID ([id number])[facility] ([facility])[address] [place] [address] [place] NEUTROPHILS BAND FORM/100 LEUKOCYTES IN BLOOD-CELLAVISI 3 % High <=0 [facility] Comment on above: Performed By: #### L [id number], [id number] ####Budget Clerk: CAROLE CID ([id number])[facility] ([facility])[address] [place] [address] [place] NEUTROPHILS TOTAL PER COUNTED LEUKOCYTES BY MANUAL COUNT 68 Normal [facility] Comment on above: Performed By: #### L [id number], [id number] ####Budget Clerk: CAROLE CID ([id number])[facility] ([facility])[address] [place] [address] OVALOCYTES PRESENCE IN BLOOD BY LIGHT MICROSCOPY Slight Abnormal (none) [facility] Comment on above: Performed By: #### L [id number], [id number] ####Budget Clerk: CAROLE CID ([id number])[facility] ([facility])[address] [place] [address] [place] POIKILOCYTOSIS (PRESENCE) IN BLOOD BY LIGHT MICROSCOPY Moderate Abnormal (none) [facility] Comment on above: Performed By: #### L [id number], [id number] ####Budget Clerk: CAROLE CID ([id number])[facility] ([facility])[address] [place] [address] [place] POLYCHROMASIA IN BLOOD BY LIGHT MICROSCOPY Slight Abnormal (none) [facility] Comment on above: Performed By: #### L [id number], [id number] ####Budget Clerk: CAROLE CID ([id number])[facility] ([facility])[address] [place] [address] [place] PROMYELOCYTES TOTAL PER COUNTED LEUKOCYTES BY MANUAL COUNT Normal [facility] Comment on above: Performed By: #### L [id number], [id number] ####Budget Clerk: CAROLE CID ([id number])[facility] ([facility])[address] [place] [address] RBC MORPHOLOGY IN BLOOD abnormal Normal S [facility] Comment on above: Performed By: #### L [id number], [id number] ####Budget Clerk: CAROLE CID ([id number])[facility] ([facility])[address] [place] [address] SEGMENTED NEUTROPHILS (10*3/UL) IN BLOOD-CELLAVISION 7.4 10*3/uL Normal 1.8-7.5 [facility] Comment on above: Performed By: #### L [id number], [id number] ####Budget Clerk: CAROLE CID ([id number])[facility] ([facility])[address] [place] [address] SEGMENTED NEUTROPHILS/100 LEUKOCYTES-CE 67 % Normal 38-82 [facility] Comment on above: Performed By: #### L [id number], [id number] ####Budget Clerk: CAROLE CID ([id number])[facility] ([facility])[address] [place] [address] STOMATOCYTES IN BLOOD BY LIGHT MICROSCOPY Moderate Abnormal (none) [facility] Comment on above: Performed By: #### L [id number], [id number] ####Budget Clerk: CAROLE CID ([id number])[facility] ([facility])[address] [place] [address] UNCLASSIFIED CELLS TOTAL PER COUNTED LEUKOCYTES BY MANUAL COUNT Normal [facility] Comment on above: Performed By: #### L [id number], [id number] ####Budget Clerk: CAROLE CID ([id number])[facility] ([facility])[address] [place] [address] VARIANT LYMPHOCYTES TOTAL PER COUNTED LEUKOCYTES BY MANUAL COUNT Normal [facility] Comment on above: Performed By: #### L [id number], [id number] ####Budget Clerk: CAROLE CID ([id number])[facility] ([facility])[address] [place] [address] [place] PHOSPHORUSon 12-19-2024 Phosphate [Mass/Vol] 1.5 mg/dL Low 2.3-4.7 [facility] Comment on above: Performed By: #### L [id number], [id number], [id number] ####Budget Clerk: CAROLE CID ([id number])[facility])[address] [place] [address] PROTIME AND APTTon aPTT Coag (Bld) [Time] 30.5 s Normal 20.0-30.5 [facility] Comment on above: Performed By: #### L [id number] ####Budget Clerk: CAROLE CID ([id number])[facility] ([facility])[address] [place] [address] INR Coag (PPP) [Relative time] 1.1 {INR} Normal 0.9-1.1 [facility] Comment on above: Result Comment: Evgeny mmended Anticoagulant Therapy: SEE BELOW----- INR of 2.0 - 3.0 : - Prophylaxis of Venous Thrombosis (high-risk surgery) - Treatment of Venous Thrombosis - Treatment of Pulmonary Embolism (Includes tissue heart valves, Acute Myocardial Infarction to prevent systemic embolism, Valvular Heart Disease, and Atrial Fibrillation)----- INR of 2.5 - 3.5 : - Mechanical Prosthetic Valves (high risk) - If oral anticoagulant therapy is used to prevent Myocardial Infarction Performed By: #### L [id number] ####Budget Clerk: CAROLE CID ([id number])[facility])[address] [place] [address] PT Coag (PPP) [Time] 11.9 s Normal 9.0-12.0 [facility] Comment on above: Performed By: #### L [id number] ####Budget Clerk: CAROLE CID ([id number])[facility])[address] [place] [address] Progress Noteon 12-19-2024 Progress Note Normal [facility] Progress Note Normal [facility] VANCOMYCIN, AUC TIMED DOSING on 12-19-2024 VANCOMYCIN, AUC 28.0 ug/mL Normal [facility] Comment on above: Result Comment: ANDRADE Rosario COMMENTS:Please draw random level at least >2 hours after the end of the last vancomycin infusion, or 30-minutes before next infusion.Toxicity is seen at concentrations >80-100 ug/mLTherapeutic (Peak) range: 20-40Therapeutic (Trough) range: 5-10 Performed By: #### L [id number] ####Budget Clerk: CAROLE CID ([id number])[facility] ([facility])[address] [place] [address] [place] XR CHEST 1 VIEWon 12-19-2024 XR CHEST 1 VIEW Normal [facility] 30on 12-18-2024 30 Normal [facility] 30 Normal [facility] [id number] 12-18-2024 [id number] Normal [facility] BASIC METABOLIC PANELon 11-29 Anion gap [Moles/Vol] 8 mmol/L Normal 3-13 [facility] Comment on above: Performed By: #### L [id number] ####Budget Clerk: CAROLE CID ([id number])[facility] ([facility])[address] [place] [address] Calcium [Mass/Vol] 8.0 mg/dL Low 8.8-10.0 [facility] Comment on above: Performed By: #### L AB15 ####Budget Clerk: CAROLE CID ([id number])[facility] ([facility])[address] [place] [address] [place] Chloride [Moles/Vol] 103 mmol/L Normal 98-107 [facility] Comment on above: Performed By: #### L AB15 ####Budget Clerk: CAROLE CID ([id number])[facility] ([facility])[address] [place] [address] [place] CO2 [Moles/Vol] 29 mmol/L Normal 23-31 [facility] Comment on above: Performed By: #### L AB15 ####Budget Clerk: CAROLE CID ([id number])[facility] ([facility])[address] [place] [address] Creatinine [Mass/Vol] 0.48 mg/dL Low 0.57-1.11 [facility] Comment on above: Performed By: #### L AB15 ####Budget Clerk: CAROLE CID ([id number])[facility])[address] [place] [address] GLOMERULAR FILTRATION RATE ML/MIN/1.73 SQ M.PREDICTED >90.0 Normal >60.0 [facility] Comment on above: Result Comment: Calc ulation based on the Chronic Kidney Disease Epidemiology Collaboration (CKD-EPI) equation refit without adjustment for race Performed By: #### L AB15 ####Budget Clerk: CAROLE CID ([id number])[facility] ([facility])[address] [place] [address] Glucose [Mass/Vol] 104 mg/dL Normal 82-115 [facility] Comment on above: Performed By: #### L AB15 ####Budget Clerk: CAROLE CID ([id number])[address] Potassium [Moles/Vol] 3.4 mmol/L Low 3.5-5.1 [facility] Comment on above: Result Comment: [facility] potassium values may be up to 0.5 mmol/L lower than serum values. Performed By: #### L AB15 ####Budget Clerk: CAROLE CID ([id number])[facility])[address] [place] [address] Sodium [Moles/Vol] 140 mmol/L Normal 136-145 [facility] Comment on above: Performed By: #### L AB15 ####Budget Clerk: CAROLE CID ([id number])[facility])[address] [place] [address] Urea nitrogen [Mass/Vol] 13 mg/dL Normal 9-23 [facility] Comment on above: Performed By: #### L AB15 ####Budget Clerk: CAROLE CID ([id number])[facility])[address] [place] [address] BLOOD GAS ARTERIALon 025 AMOUNT OF OXYGEN 40% Normal [facility] Comment on above: Performed By: #### L AB76 ####Budget Clerk: CAROLE CID ([id number])[facility])[address] [place] [address] Base excess Calc (Bld) [Moles/Vol] 5.3 mmol/L High -3.0-3.0 [facility] Comment on above: Performed By: #### L AB76 ####Budget Clerk: CAROLE CID ([id number])[facility] ([facility])[address] [place] [address] CO2 [Moles/Vol] 30.1 mmol/L High 23.0-27.0 [facility] Comment on above: Performed By: #### L AB76 ####Budget Clerk: CAROLE CID ([id number])[facility])[address] [place] [address] HCO3 (Bld) [Moles/Vol] 28.9 mmol/L High 21.0-25.0 [facility] Comment on above: Performed By: #### L AB76 ####Budget Clerk: CAROLE CID ([id number])[facility] ([facility])[address] [place] [address] Hemoglobin (Bld) [Mass/Vol] 8.5 g/dL Normal Screen only [facility] Comment on above: Performed By: #### L AB76 ####Budget Clerk: CAROLE CID ([id number])[facility])[address] [place] [address] OXYGEN SATURATION (%) IN ARTERIAL BLOOD 97.7 % Normal 95.0-100.0 [facility] Comment on above: Performed By: #### L AB76 ####Budget Clerk: CAROLE CID ([id number])[facility])[address] [place] [address] PCO2 ARTERIAL 38.4 mm Hg Normal >35.0-<45. 0 [facility] Comment on above: Performed By: #### L AB76 ####Budget Clerk: CAROLE CID ([id number])[facility])[address] [place] [address] PH ARTERIAL 7.495 High 7.350-7.45 0 [facility] Comment on above: Performed By: #### L AB76 ####Budget Clerk: CAROLE CID ([id number])[facility])[address] [place] [address] PO2 ARTERIAL 103.0 mm Hg High 80.0-100.0 [facility] Comment on above: Performed By: #### L AB76 ####Budget Clerk: CAROLE CID ([id number])[facility])[address] [place] [address] SOURCE OF OXYGEN Ventilator Normal [facility] Comment on above: Performed By: #### L AB76 ####Budget Clerk: CAROLE CID ([id number])[facility])[address] [place] [address] BLOOD TYPE AND SCREEN GELon 12-18-2024 ABO GROUPING A Normal [facility] Comment on above: Performed By: #### L [id number] ####Budget Clerk: CAROLE CID ([id number])[facility] ([facility])[address] [place] [address] RH TYPE IN BLOOD Positive Normal [facility] Comment on above: Performed By: #### L [id number] ####Budget Clerk: CAROLE CID ([id number])[facility] ([facility])[address] [place] [address] CALCIUM, IONIZEDon 5 CALCIUM IONIZED 4.00 mg/dL Low 4.30-5.20 [facility] Comment on above: Performed By: #### L AB54 ####Budget Clerk: CAROLE CID ([id number])[facility])[address] [place] [address] PH, IONIZED CALCIUM 7.52 High 7.31-7.46 [facility] Comment on above: Performed By: #### L AB54 ####Budget Clerk: CAROLE CID ([id number])[facility] ([facility] CBC WITH AUTO DIFFERENTIALon 12-18-2024 Basophils (Bld) [#/Vol] 0.1 10*3/uL Normal 0.0-0.2 [facility] Comment on above: Performed By: #### L [id number], [id number] ####Budget Clerk: CAROLE CID ([id number])[facility])[address] [place] [address] Basophils/100 WBC (Bld) 0.6 % Normal 0.0-2.0 [facility] Comment on above: Performed By: #### L [id number], [id number] ####Budget Clerk: CAROLE CID ([id number])[facility])[address] [place] [address] Eosinophils (Bld) [#/Vol] 0.0 10*3/uL Normal 0.0-0.5 [facility] Comment on above: Performed By: #### Mago AB296, [id number] ####Budget Clerk: CAROLE CDI ([id number])[facility])[address] [place] [address] Eosinophils/100 WBC (Bld) 0.2 % Normal 0.0-6.0 [facility] Comment on above: Performed By: #### L [id number], [id number] ####Budget Clerk: CAROLE CID ([id number])[facility])[address] [place] [address] Erythrocyte distribution width (RBC) [Ratio] 15.2 % High 11.5-15.0 [facility] Comment on above: Performed By: #### L [id number], [id number] ####Budget Clerk: CAROLE [id number])[address] Hematocrit (Bld) [Volume fraction] 20.5 % Low 35.0-47.0 [facility] Comment on above: Performed By: #### L [id number], [id number] ####Budget Clerk: CAROLE [id number])[facility])[address] [place] [address] Hemoglobin (Bld) [Mass/Vol] 6.5 g/dL Critically low 11.7 -16.0 [facility] Comment on above: Performed By: #### L [id number], [id number] ####Budget Clerk: CAROLE CID ([id number])[facility])[address] [place] [address] IMMATURE GRANS % 4.0 % High 0.0-2.0 [facility] Comment on above: Performed By: #### L [id number], [id number] ####Budget Clerk: CAROLE CID ([id number])[address] IMMATURE GRANS ABSOLUTE 0.3 10*3/uL High <0.1 [facility] Comment on above: Performed By: #### Mago AB296, [id number] ####Budget Clerk: CAROLE CID ([id number])[facility])[address] [place] [address] Lymphocytes (Bld) [#/Vol] 1.7 10*3/uL Normal 1.0-4.3 [facility] Comment on above: Performed By: #### L [id number], [id number] ####Budget Clerk: CAROLE CID ([id number])[facility])[address] [place] [address] Lymphocytes/100 WBC (Bld) 20.6 % Normal 15.0-45.0 [facility] Comment on above: Performed By: #### L [id number], [id number] ####Budget Clerk: CAROLE CID ([id number])[address] MCH (RBC) [Entitic mass] 28.9 pg Normal 26.0-34.0 [facility] Comment on above: Performed By: #### L [id number], [id number] ####Budget Clerk: CAROLE CID ([id number])[facility])[address] [place] [address] MCHC 31.7 % Normal 30.5-36.0 [facility] Comment on above: Performed By: #### Mago [id number], [id number] ####Budget Clerk: CAROLE CID ([id number])[facility] ([facility])[address] [place] [address] MCV (RBC) [Entitic vol] 91.1 fL Normal 77.0-99.0 [facility] Comment on above: Performed By: #### L [id number], [id number] ####Budget Clerk: CAROLE CID ([id number])[facility] ([facility])[address] [place] [address] Monocytes (Bld) [#/Vol] 1.2 10*3/uL High 0.0-0.9 [facility] Comment on above: Performed By: #### Mago [id number], [id number] ####Budget Clerk: CAROLE CID ([id number])[facility] ([facility])[address] [place] [address] Monocytes/100 WBC (Bld) 14.0 % High 5.0-13.0 [facility] Comment on above: Performed By: #### L [id number], [id number] ####Budget Clerk: CAROLE CID ([id number])[facility] ([facility])[address] [place] [address] NEUTROPHILS ABSOLUTE 5.1 10*3/uL Normal 1.8-7.5 [facility] Comment on above: Performed By: #### L [id number], [id number] ####Budget Clerk: CAROLE CID ([id number])[facility] ([facility])[address] [place] [address] Neutrophils/100 WBC (Bld) 60.6 % Normal 38.0-82.0 [facility] Comment on above: Performed By: #### L [id number], [id number] ####Budget Clerk: CAROLE CID ([id number])[facility])[address] [place] [address] NRBC 0.0 /100 WBCs Normal 0.0-2.0 [facility] Comment on above: Performed By: #### L [id number], [id number] ####Budget Clerk: CAROLE CID ([id number])[facility])[address] [place] [address] Platelet mean volume (Bld) [Entitic vol] 9.7 fL Normal 9.0-12.7 [facility] Comment on above: Performed By: #### L [id number], [id number] ####Budget Clerk: CAROLE CID ([id number])[facility])[address] [place] [address] Platelets (Bld) [#/Vol] 362 10*3/uL Normal 140-440 [facility] Comment on above: Performed By: #### L [id number], [id number] ####Budget Clerk: CAROLE CID ([id number])[facility])[address] [place] [address] RBC (Bld) [#/Vol] 2.25 10*6/uL Low 3.80-5.20 [facility] Comment on above: Performed By: #### L [id number], [id number] ####Budget Clerk: CAROLE CID ([id number])[facility])[address] [place] [address] WBC (Bld) [#/Vol] 8.4 10*3/uL Normal 3.6-10.7 [facility] Comment on above: Performed By: #### L [id number], [id number] ####Budget Clerk: CAROLE CID ([id number])[facility])[address] [place] [address] COMPREHENSIVE METABOLIC PANE Demetris 12-18-2024 Albumin [Mass/Vol] 1.9 g/dL Low 3.4-4.8 [facility] Comment on above: Performed By: #### L AB96, [id number] ####Budget Clerk: CAROLE CID ([id number])[facility] ([facility] [place] [address] [place] ALP [Catalytic activity/Vol] 58 U/L Normal 40-150 [facility] Comment on above: Performed By: #### L AB96, LAB17 ####Budget Clerk: CAROLE CID ([id number])[facility] ([facility])[address] [place] [address] [place] ALT [Catalytic activity/Vol] U/L Normal <30 [facility] Comment on above: Performed By: #### L AB96, [id number] ####Budget Clerk: CAROLE CID ([id number])[facility] ([facility])[address] [place] [address] Anion gap [Moles/Vol] 6 mmol/L Normal 3-13 [facility] Comment on above: Performed By: #### L [id number], [id number] ####Budget Clerk: CARLOE CID ([id number])[facility] ([facility])[address] [place] [address] AST [Catalytic activity/Vol] 24 U/L Normal <34 [facility] Comment on above: Performed By: #### L ABGary, [id number] ####Budget Clerk: CAROLE CID ([id number])[facility] ([facility])[address] [place] [address] Bilirubin [Mass/Vol] 0.3 mg/dL Normal <1.2 [facility] Comment on above: Performed By: #### L AB96, LAB17 ####Budget Clerk: CAROLE CID ([id number])[facility] ([facility])[address] [place] [address] [place] Calcium [Mass/Vol] 8.2 mg/dL Low 8.8-10.0 [facility] Comment on above: Performed By: #### L AB96, [id number] ####Budget Clerk: CAROLE CID ([id number])[facility] ([facility])[address] [place] [address] [place] Chloride [Moles/Vol] 106 mmol/L Normal 98-107 [facility] Comment on above: Performed By: #### L AB96, LAB17 ####Budget Clerk: CAROLE CID ([id number])[facility])[address] [place] [address] CO2 [Moles/Vol] 27 mmol/L Normal 23-31 [facility] Comment on above: Performed By: #### L AB96, LAB17 ####Budget Clerk: CAROLE CID ([id number])[facility])[address] [place] [address] Creatinine [Mass/Vol] 0.49 mg/dL Low 0.57-1.11 [facility] Comment on above: Performed By: #### L AB96, LAB17 ####Budget Clerk: CAROLE CID ([id number])[facility])[address] [place] [address] GLOMERULAR FILTRATION RATE ML/MIN/1.73 SQ M.PREDICTED >90.0 Normal >60.0 [facility] Comment on above: Result Comment: Calc ulation based on the Chronic Kidney Disease Epidemiology Collaboration (CKD-EPI) equation refit without adjustment for race Performed By: #### L SAMREEN, LAB17 ####Budget Clerk: CAROLE CID ([id number])[facility])[address] [place] [address] Glucose [Mass/Vol] 126 mg/dL High 82-115 [facility] Comment on above: Performed By: #### L AB96, LAB17 ####Budget Clerk: CAROLE CID ([id number])[facility])[address] [place] [address] [place] Potassium [Moles/Vol] 3.6 mmol/L Normal 3.5-5.1 [facility] Comment on above: Result Comment: [facility] potassium values may be up to 0.5 mmol/L lower than serum values. Performed By: #### L AB96, LAB17 ####Budget Clerk: CAROLE CID ([id number])[facility])[address] [place] [address] [place] Protein [Mass/Vol] 4.8 g/dL Low 6.4-8.3 [facility] Comment on above: Performed By: #### L AB96, LAB17 ####Budget Clerk: CAROLE CID ([id number])[facility] ([facility])[address] [place] [address] Sodium [Moles/Vol] 139 mmol/L Normal 136-145 [facility] Comment on above: Performed By: #### L AB96, LAB17 ####Budget Clerk: CAROLE CID ([id number])[facility] ([facility])[address] [place] [address] Urea nitrogen [Mass/Vol] 16 mg/dL Normal 9-23 [facility] Comment on above: Performed By: #### L AB96, LAB17 ####Budget Clerk: CAROLE CID ([id number])[facility] ([facility])[address] [place] [address] ED Nursing Noteon 12-18-2024 ED Nursing Note MICU Stanford Levine/Resident Vo Normal [facility] HAPTOGLOBINon 12-18-2024 HAPTOGLOBIN >287 High 50-270 [facility] Comment on above: Performed By: #### L AB89, [id number], [id number] ####Budget Clerk: CAROLE CID ([id number])[facility] ([facility])[address] [place] [address] HEMOGLOBIN AND HEMATOCRIT, B LOODon 12-18-2024 Hematocrit (Bld) [Volume fraction] 27.2 % Low 35.0-47.0 [facility] Comment on above: Order Comment: Recom mend 1 hour post transfusion Performed By: #### L [id number] ####Budget Clerk: CAROLE CID ([id number])[facility] ([facility])[address] [place] [address] Hemoglobin (Bld) [Mass/Vol] 8.9 g/dL Low 11.7-16. 0 [facility] Comment on above: Order Comment: Recom mend 1 hour post transfusion Performed By: #### L [id number] ####Budget Clerk: CAROLE CID ([id number])[facility])[address] [place] [address] LACTATE DEHYDROGENASEon 11-29 LDH [Catalytic activity/Vol] 218 U/L Normal 125-220 [facility] Comment on above: Performed By: #### L AB96, LAB17 ####Budget Clerk: CAROLE CID ([id number])[facility])[address] [place] [address] MAGNESIUMon 12-18-2024 Magnesium [Mass/Vol] 1.9 mg/dL Normal 1.6-2.6 [facility] Comment on above: Result Comment: ANDRADE Rosario COMMENTS:Higher values can be expected in females during menses. Performed By: #### L AB89, [id number], [id number] ####Budget Clerk: CAROLE CID ([id number])[facility])[address] [place] [address] PHOSPHORUSon 12-18-2024 Phosphate [Mass/Vol] 1.6 mg/dL Low 2.3-4.7 [facility] Comment on above: Performed By: #### L AB89, [id number], [id number] ####Budget Clerk: CAROLE CID ([id number])[facility])[address] [place] [address] PROTIME AND APTTon aPTT Coag (Bld) [Time] 43.5 s High 20.0-30.5 [facility] Comment on above: Performed By: #### L [id number] ####Budget Clerk: CAROLE CID ([id number])[facility])[address] [place] [address] INR Coag (PPP) [Relative time] 1.1 {INR} Normal 0.9-1.1 [facility] Comment on above: Result Comment: Evgeny mmended Anticoagulant Therapy: SEE BELOW----- INR of 2.0 - 3.0 : - Prophylaxis of Venous Thrombosis (high-risk surgery) - Treatment of Venous Thrombosis - Treatment of Pulmonary Embolism (Includes tissue heart valves, Acute Myocardial Infarction to prevent systemic embolism, Valvular Heart Disease, and Atrial Fibrillation)----- INR of 2.5 - 3.5 : - Mechanical Prosthetic Valves (high risk) - If oral anticoagulant therapy is used to prevent Myocardial Infarction Performed By: #### L [id number] ####Budget Clerk: CAROLE CID ([id number])[facility] ([facility])[address] [place] [address] PT Coag (PPP) [Time] 12.6 s High 9.0-12.0 [facility] Comment on above: Performed By: #### L [id number] ####Budget Clerk: CAROLE CID ([id number])[facility] ([facility])[address] [place] [address] Progress Noteon 12-18-2024 Progress Note Normal [facility] Progress Note Normal [facility] Progress Note Normal [facility] Progress Note Normal [facility] Progress Note Normal [facility] Progress Note Normal [facility] RETICULOCYTESon 12-18-2024 Reticulocytes/100 RBC (Bld) 1.39 % Normal [facility] Comment on above: Result Comment: Newb orn < 5%Adults 0.4 - 2.0% Performed By: #### L [id number], [id number] ####Budget Clerk: CAROLE CID ([id number])[facility] ([facility])[address] [place] [address] XR CHEST 1 VIEWon 12-18-2024 XR CHEST 1 VIEW Normal [facility] [id number] 12-17-2024 [id number] Normal [facility] 36on 12-17-2024 36 Normal [facility] 36 Records received, these were scanned into pt's chart yesterday. Secure chat msg sent to Dr. Hawthorne making her aware. Normal [facility] APTTon 12-17-2024 aPTT Coag (Bld) [Time] 46.1 s High 20.0-30.5 [facility] Comment on above: Result Comment: ANDRADE R COMMENTS:NOTE: The therapeutic time for Heparin anticoagulation, based on Xa activity inhibition, is an APTT of 46-80 seconds. Performed By: #### L [id number] ####Budget Clerk: CAROLE CID ([id number])[facility])[address] [place] [address] aPTT Coag (Bld) [Time] 61.6 s High 20.0-30.5 [facility] Comment on above: Result Comment: ANDRADE Rosario COMMENTS:NOTE: The therapeutic time for Heparin anticoagulation, based on Xa activity inhibition, is an APTT of 46-80 seconds. Performed By: #### L [id number] ####Budget Clerk: CAROLE CID ([id number])[facility] ([facility])[address] [place] [address] BLOOD GAS ARTERIALon 025 AMOUNT OF OXYGEN 40 Normal [facility] Comment on above: Performed By: #### L AB76 ####Budget Clerk: CAROLE CID ([id number])[facility])[address] [place] [address] Base excess Calc (Bld) [Moles/Vol] 2.7 mmol/L Normal -3.0-3.0 [facility] Comment on above: Performed By: #### L AB76 ####Budget Clerk: CAROLE CID ([id number])[facility])[address] [place] [address] CO2 [Moles/Vol] 27.0 mmol/L Normal 23.0-27.0 [facility] Comment on above: Performed By: #### L AB76 ####Budget Clerk: CAROLE CID ([id number])[facility] ([facility])[address] [place] [address] HCO3 (Bld) [Moles/Vol] 26.0 mmol/L High 21.0-25.0 [facility] Comment on above: Performed By: #### L AB76 ####Budget Clerk: CAROLE CID ([id number])[facility])[address] [place] [address] Hemoglobin (Bld) [Mass/Vol] 7.6 g/dL Normal Screen only [facility] Comment on above: Performed By: #### L AB76 ####Budget Clerk: CAROLE CID ([id number])[facility])[address] [place] [address] OXYGEN SATURATION (%) IN ARTERIAL BLOOD 98.3 % Normal 95.0-100.0 [facility] Comment on above: Performed By: #### L AB76 ####Budget Clerk: CAROLE CID ([id number])[facility] ([facility])[address] [place] [address] PCO2 ARTERIAL 34.1 mm Hg Low >35.0-<45. 0 [facility] Comment on above: Performed By: #### L AB76 ####Budget Clerk: CAROLE CID ([id number])[facility])[address] [place] [address] PH ARTERIAL 7.500 High 7.350-7.45 0 [facility] Comment on above: Performed By: #### L AB76 ####Budget Clerk: CAROLE CID ([id number])[facility] ([facility])[address] [place] [address] PO2 ARTERIAL 104.0 mm Hg High 80.0-100.0 [facility] Comment on above: Performed By: #### L AB76 ####Budget Clerk: CAROLE CID ([id number])[facility])[address] [place] [address] SOURCE OF OXYGEN Ventilator Normal [facility] Comment on above: Performed By: #### L AB76 ####Budget Clerk: CAROLE CID ([id number])[facility])[address] [place] [address] CALCIUM, IONIZEDon 5 CALCIUM IONIZED 4.30 mg/dL Normal 4.30-5.20 [facility] Comment on above: Performed By: #### L AB54 ####Budget Clerk: CAROLE CID ([id number])[facility])[address] [place] [address] PH, IONIZED CALCIUM 7.47 High 7.31-7.46 [facility] Comment on above: Performed By: #### L AB54 ####Budget Clerk: CAROLE CID ([id number])[facility])[address] [place] [address] CBC WITH AUTO DIFFERENTIALon 12-17-2024 Erythrocyte distribution width (RBC) [Ratio] 15.1 % High 11.5-15.0 [facility] Comment on above: Performed By: #### L [id number], [id number] ####Budget Clerk: CAROLE CID ([id number])[facility])[address] [place] [address] Hematocrit (Bld) [Volume fraction] 23.7 % Low 35.0-47.0 [facility] Comment on above: Performed By: #### L [id number], [id number] ####Budget Clerk: CAROLE CID ([id number])[facility])[address] [place] [address] Hemoglobin (Bld) [Mass/Vol] 7.6 g/dL Low 11.7-16. 0 [facility] Comment on above: Performed By: #### L [id number], [id number] ####Budget Clerk: CAROLE CID ([id number])[facility])[address] [place] [address] MCH (RBC) [Entitic mass] 29.3 pg Normal 26.0-34.0 [facility] Comment on above: Performed By: #### L [id number], [id number] ####Budget Clerk: CAROLE CID ([id number])[facility])[address] [place] [address] MCHC 32.1 % Normal 30.5-36.0 [facility] Comment on above: Performed By: #### L [id number], [id number] ####Budget Clerk: CAROLE CID ([id number])[facility])[address] [place] [address] MCV (RBC) [Entitic vol] 91.5 fL Normal 77.0-99.0 [facility] Comment on above: Performed By: #### L [id number], [id number] ####Budget Clerk: CAROLE CID ([id number])[facility])[address] [place] [address] Platelet mean volume (Bld) [Entitic vol] 9.8 fL Normal 9.0-12.7 [facility] Comment on above: Performed By: #### L [id number], [id number] ####Budget Clerk: CAROLE CID ([id number])[facility] ([facility])[address] [place] [address] Platelets (Bld) [#/Vol] 423 10*3/uL Normal 140-440 [facility] Comment on above: Performed By: #### L [id number], [id number] ####Budget Clerk: CAROLE CID ([id number])[facility] ([facility])[address] [place] [address] RBC (Bld) [#/Vol] 2.59 10*6/uL Low 3.80-5.20 [facility] Comment on above: Performed By: #### L [id number], [id number] ####Budget Clerk: CAROLE CID ([id number])[facility])[address] [place] [address] WBC (Bld) [#/Vol] 12.6 10*3/uL High 3.6-10.7 [facility] Comment on above: Performed By: #### L [id number], [id number] ####Budget Clerk: CAROLE CID ([id number])[facility])[address] [place] [address] COMPREHENSIVE METABOLIC PANE Demetris 12-17-2024 Albumin [Mass/Vol] 1.9 g/dL Low 3.4-4.8 [facility] Comment on above: Performed By: #### L [id number] ####Budget Clerk: CAROLE CID ([id number])[facility] ([facility])[address] [place] [address] ALP [Catalytic activity/Vol] 71 U/L Normal 40-150 [facility] Comment on above: Performed By: #### L AB17 ####Budget Clerk: CAROLE CID ([id number])[facility] ([facility])[address] [place] [address] ALT [Catalytic activity/Vol] U/L Normal <30 [facility] Comment on above: Performed By: #### L AB17 ####Budget Clerk: CAROLE CID ([id number])[facility] ([facility])[address] [place] [address] Anion gap [Moles/Vol] 8 mmol/L Normal 3-13 [facility] Comment on above: Performed By: #### L AB17 ####Budget Clerk: CAROLE CID ([id number])[facility] ([facility])[address] [place] [address] AST [Catalytic activity/Vol] 12 U/L Normal <34 [facility] Comment on above: Performed By: #### L AB17 ####Budget Clerk: CAROLE CID ([id number])[facility])[address] [place] [address] Bilirubin [Mass/Vol] 0.5 mg/dL Normal <1.2 [facility] Comment on above: Performed By: #### L AB17 ####Budget Clerk: CAROLE CID ([id number])[facility])[address] [place] [address] Calcium [Mass/Vol] 8.5 mg/dL Low 8.8-10.0 [facility] Comment on above: Performed By: #### L AB17 ####Budget Clerk: CAROLE CID ([id number])[facility])[address] [place] [address] Chloride [Moles/Vol] 107 mmol/L Normal 98-107 [facility] Comment on above: Performed By: #### L AB17 ####Budget Clerk: CAROLE CID ([id number])[facility] ([facility] [place] [address] CO2 [Moles/Vol] 23 mmol/L Normal 23-31 [facility] Comment on above: Performed By: #### L AB17 ####Budget Clerk: CAROLE CID ([id number])[facility] ([facility])[address] [place] [address] Creatinine [Mass/Vol] 0.49 mg/dL Low 0.57-1.11 [facility] Comment on above: Performed By: #### L AB17 ####Budget Clerk: CAROLE CID ([id number])[facility])[address] [place] [address] GLOMERULAR FILTRATION RATE ML/MIN/1.73 SQ M.PREDICTED >90.0 Normal >60.0 [facility] Comment on above: Result Comment: Calc ulation based on the Chronic Kidney Disease Epidemiology Collaboration (CKD-EPI) equation refit without adjustment for race Performed By: #### L AB17 ####Budget Clerk: CAROLE CID ([id number])[facility] ([facility])[address] [place] [address] Glucose [Mass/Vol] 103 mg/dL Normal 82-115 [facility] Comment on above: Performed By: #### L AB17 ####Budget Clerk: CAROLE CID ([id number])[facility])[address] [place] [address] Potassium [Moles/Vol] 4.3 mmol/L Normal 3.5-5.1 [facility] Comment on above: Result Comment: [facility] potassium values may be up to 0.5 mmol/L lower than serum values. Performed By: #### L AB17 ####Budget Clerk: CAROLE CID ([id number])[facility] ([facility])[address] [place] [address] Protein [Mass/Vol] 5.4 g/dL Low 6.4-8.3 [facility] Comment on above: Performed By: #### L AB17 ####Budget Clerk: CAROLE CID ([id number])[facility] ([facility])[address] [place] [address] Sodium [Moles/Vol] 138 mmol/L Normal 136-145 [facility] Comment on above: Performed By: #### L AB17 ####Budget Clerk: CAROLE CID ([id number])[facility])[address] [place] [address] Urea nitrogen [Mass/Vol] 19 mg/dL Normal 9-23 [facility] Comment on above: Performed By: #### L AB17 ####Budget Clerk: CAROLE CID ([id number])[facility])[address] [place] [address] Consulton 12-17-2024 Consult Normal [facility] MAGNESIUMon 12-17-2024 Magnesium [Mass/Vol] 1.8 mg/dL Normal 1.6-2.6 [facility] Comment on above: Result Comment: ANDRADE Rosario COMMENTS:Higher values can be expected in females during menses. Performed By: #### L [id number], [id number] ####Budget Clerk: CAROLE CID ([id number])[facility] ([facility])[address] [place] [address] MANUAL DIFFERENTIAL (CELLAVI SANDOR)on 12-17-2024 BAND NEUTROPHILS TOTAL PER COUNTED LEUKOCYTES BY MANUAL COUNT 1 Normal [facility] Comment on above: Performed By: #### L [id number], [id number] ####Budget Clerk: CAROLE CID ([id number])[facility] ([facility])[address] [place] [address] BANDS (10*3/UL) IN BLOOD-CELLAVISION 0.1 10*3/uL High <=0.0 [facility] Comment on above: Performed By: #### L [id number], [id number] ####Budget Clerk: CAROLE CID ([id number])[facility] ([facility])[address] [place] [address] BASOPHILS (10*3/UL) IN BLOOD-CELLAVISION 0.3 10*3/uL High 0.0-0.2 [facility] Comment on above: Performed By: #### L [id number], [id number] ####Budget Clerk: CAROLE CID ([id number])[facility])[address] [place] [address] BASOPHILS TOTAL PER COUNTED LEUKOCYTES BY MANUAL COUNT 2 Normal [facility] Comment on above: Performed By: #### L [id number], [id number] ####Budget Clerk: CAROLE CID ([id number])[facility] ([facility])[address] [place] [address] BASOPHILS/100 LEUKOCYTES IN BLOOD-CELLAVISION 2 % Normal 0-2 [facility] Comment on above: Performed By: #### L [id number], [id number] ####Budget Clerk: CAROLE CID ([id number])[facility])[address] [place] [address] BLASTS TOTAL PER COUNTED LEUKOCYTES BY MANUAL COUNT Normal [facility] Comment on above: Performed By: #### L [id number], [id number] ####Budget Clerk: CAROLE CID ([id number])[facility])[address] [place] [address] EOSINOPHILS TOTAL PER COUNTED LEUKOCYTES BY MANUAL COUNT Normal [facility] Comment on above: Performed By: #### L [id number], [id number] ####Budget Clerk: CAROLE CID ([id number])[facility])[address] [place] [address] HYPOCHROMIA (PRESENCE) IN BLOOD BY LIGHT MICROSCOPY Slight Abnormal (none) [facility] Comment on above: Performed By: #### L [id number], [id number] ####Budget Clerk: CAROLE CID ([id number])[facility])[address] [place] [address] LYMPHOCYTES (10*3/UL) IN BLOOD-CELLAVISION 1.3 10*3/uL Normal 1.0-4.3 [facility] Comment on above: Performed By: #### L [id number], [id number] ####Budget Clerk: CAROLE CID ([id number])[facility] ([facility])[address] [place] [address] [place] LYMPHOCYTES TOTAL PER COUNTED LEUKOCYTES BY MANUAL COUNT 10 Normal [facility] Comment on above: Performed By: #### L [id number], [id number] ####Budget Clerk: CAROLE CID ([id number])[facility] ([facility])[address] [place] [address] [place] LYMPHOCYTES/100 LEUKOCYTES IN BLOOD-CELLAVISION 10 % Low 15-45 [facility] Comment on above: Performed By: #### L [id number], [id number] ####Budget Clerk: CAROLE CID ([id number])[facility] ([facility])[address] [place] [address] [place] METAMYELOCYTES (10*3/UL) IN BLOOD-CELLAVISION 0.1 10*3/uL High <=0.0 [facility] Comment on above: Performed By: #### L [id number], [id number] ####Budget Clerk: CAROLE CID ([id number])[facility] ([facility])[address] [place] [address] [place] METAMYELOCYTES TOTAL PER COUNTED LEUKOCYTES BY MANUAL COUNT 1 Normal [facility] Comment on above: Performed By: #### L [id number], [id number] ####Budget Clerk: CAROLE CID ([id number])[facility] ([facility])[address] [place] [address] [place] METAMYELOCYTES/100 LEUKOCYTES IN BLOOD-CELLAVISION 1 % High <=0 [facility] Comment on above: Performed By: #### L [id number], [id number] ####Budget Clerk: CAROLE CID ([id number])[facility])[address] [place] [address] [place] MONOCYTES (10*3/UL) IN BLOOD-CELLAVISION 0.9 10*3/uL Normal 0.0-0.9 [facility] Comment on above: Performed By: #### L [id number], [id number] ####Budget Clerk: CAROLE CID ([id number])[facility] ([facility])[address] [place] [address] [place] MONOCYTES TOTAL PER COUNTED LEUKOCYTES BY MANUAL COUNT 7 Normal [facility] Comment on above: Performed By: #### L [id number], [id number] ####Budget Clerk: CAROLE CID ([id number])[facility] ([facility] [place] [address] [place] MONOCYTES/100 LEUKOCYTES IN BLOOD-SARI 7 % Normal 5-13 [facility] Comment on above: Performed By: #### L [id number], [id number] ####Budget Clerk: CAROLE CID ([id number])[facility] ([facility])[address] [place] [address] [place] MYELOCYTES COUNTED BY MANUAL COUNT Normal [facility] Comment on above: Performed By: #### L [id number], [id number] ####Budget Clerk: CAROLE CID ([id number])[facility] ([facility] [place] [address] [place] NEUTROPHILS BAND FORM/100 LEUKOCYTES IN BLOOD-CELLAVISI 1 % High <=0 [facility] Comment on above: Performed By: #### L [id number], [id number] ####Budget Clerk: CAROLE CID ([id number])[facility] ([facility])[address] [place] [address] [place] NEUTROPHILS TOTAL PER COUNTED LEUKOCYTES BY MANUAL COUNT 79 Normal [facility] Comment on above: Performed By: #### L [id number], [id number] ####Budget Clerk: CAROLE CID ([id number])[facility] ([facility])[address] [place] [address] [place] PROMYELOCYTES TOTAL PER COUNTED LEUKOCYTES BY MANUAL COUNT [facility] Comment on above: Performed By: #### L [id number], [id number] ####Budget Clerk: CAROLE CID ([id number])[facility] ([facility])[address] [place] [address] [place] RBC MORPHOLOGY IN BLOOD abnormal Normal S [facility] Comment on above: Performed By: #### L [id number], [id number] ####Budget Clerk: CAROLE CID ([id number])[facility])[address] [place] [address] SEGMENTED NEUTROPHILS (10*3/UL) IN BLOOD-CELLAVISION 10.1 10*3/uL High 1.8-7.5 [facility] Comment on above: Performed By: #### L [id number], [id number] ####Budget Clerk: CAROLE CID ([id number])[facility] ([facility])[address] [place] [address] SEGMENTED NEUTROPHILS/100 LEUKOCYTES-CE 79 % Normal 38-82 [facility] Comment on above: Performed By: #### L [id number], [id number] ####Budget Clerk: CAROLE CID ([id number])[facility])[address] [place] [address] UNCLASSIFIED CELLS TOTAL PER COUNTED LEUKOCYTES BY MANUAL COUNT [facility] Comment on above: Performed By: #### L [id number], [id number] ####Budget Clerk: CAROLE CID ([id number])[facility])[address] [place] [address] VARIANT LYMPHOCYTES TOTAL PER COUNTED LEUKOCYTES BY MANUAL COUNT [facility] Comment on above: Performed By: #### L [id number], [id number] ####Budget Clerk: CAROLE CID ([id number])[facility])[address] [place] [address] Nursing Noteon 12-17-2024 Nursing Note Returned to room fro m [facility], gio well. Complete bath. Normal [facility] PHOSPHORUSon 12-17-2024 Phosphate [Mass/Vol] 2.6 mg/dL Normal 2.3-4.7 [facility] Comment on above: Performed By: #### L [id number], [id number] ####Budget Clerk: CAROLE CID ([id number])[facility])[address] [place] [address] Progress Noteon 12-17-2024 Progress Note Normal [facility] Progress Note Normal [facility] Progress Note Normal [facility] Progress Note Normal [facility] Progress Note Normal [facility] Progress Note Normal [facility] Progress Note Normal [facility] Progress Note Normal [facility] XR CHEST 1 VIEWon 12-17-2024 XR CHEST 1 VIEW Normal [facility] 30on 12-16-2024 30 Normal [facility] [id number] 12-16-2024 [id number] Normal [facility] 36on 12-16-2024 36 Per secure chat msg from Dr. Hawthorne, need to obtain full records from [facility] from pt's recent admission. Called [facility] Medical Records dept ([phone]), spoke with staff Noy who said she would fax these records to our office now. Normal [facility] APTTon 12-16-2024 aPTT Coag (Bld) [Time] 31.9 s High 20.0-30.5 [facility] Comment on above: Result Comment: ANDRADE Rosario COMMENTS:NOTE: The therapeutic time for Heparin anticoagulation, based on Xa activity inhibition, is an APTT of 46-80 seconds. Performed By: #### L [id number] ####Budget Clerk: CAROLE CID ([id number])[address] BLOOD GAS ARTERIALon 025 AMOUNT OF OXYGEN 40 Normal [facility] Comment on above: Performed By: #### L [id number] ####Budget Clerk: CAROLE CID ([id number])[address] Base excess Calc (Bld) [Moles/Vol] 0.9 mmol/L Normal -3.0-3.0 [facility] Comment on above: Performed By: #### L [id number] ####Budget Clerk: CAROLE CID ([id number])[facility])[address] [place] [address] CO2 [Moles/Vol] 25.9 mmol/L Normal 23.0-27.0 [facility] Comment on above: Performed By: #### L [id number] ####Budget Clerk: CAROLE CID ([id number])[facility])[address] [place] [address] HCO3 (Bld) [Moles/Vol] 24.8 mmol/L Normal 21.0-25.0 [facility] Comment on above: Performed By: #### L [id number] ####Budget Clerk: CAROLE CID ([id number])[facility])[address] [place] [address] Hemoglobin (Bld) [Mass/Vol] 8.3 g/dL Normal Screen only [facility] Comment on above: Performed By: #### L [id number] ####Budget Clerk: CAROLE CID ([id number])[address] OXYGEN SATURATION (%) IN ARTERIAL BLOOD 96.7 % Normal 95.0-100.0 [facility] Comment on above: Performed By: #### L [id number] ####Budget Clerk: CAROLE CID ([id number])[address] PCO2 ARTERIAL 36.2 mm Hg Normal >35.0-<45. 0 [facility] Comment on above: Performed By: #### L [id number] ####Budget Clerk: CAROLE CID ([id number])[address] PH ARTERIAL 7.453 High 7.350-7.45 0 [facility] Comment on above: Performed By: #### L [id number] ####Budget Clerk: CAROLE CID ([id number])[address] PO2 ARTERIAL 88.8 mm Hg Normal 80.0-100.0 [facility] Comment on above: Performed By: #### L [id number] ####Budget Clerk: CAROLE CID ([id number])[facility] ([facility])[address] [place] [address] SOURCE OF OXYGEN Ventilator Normal [facility] Comment on above: Performed By: #### L [id number] ####Budget Clerk: CAROLE CID ([id number])[facility])[address] [place] [address] CALCIUM, IONIZEDon CALCIUM IONIZED 3.90 mg/dL Low 4.30-5.20 [facility] Comment on above: Performed By: #### L AB54 ####Budget Clerk: CAROLE CID ([id number])[facility])[address] [place] [address] PH, IONIZED CALCIUM 7.45 Normal 7.31-7.46 [facility] Comment on above: Performed By: #### L AB54 ####Budget Clerk: CAROLE CID ([id number])[facility])[address] [place] [address] CBC WITH AUTO DIFFERENTIALon 12-16-2024 Erythrocyte distribution width (RBC) [Ratio] 15.3 % High 11.5-15.0 [facility] Comment on above: Performed By: #### L [id number], [id number] ####Budget Clerk: CAROLE CID ([id number])[facility])[address] [place] [address] Hematocrit (Bld) [Volume fraction] 24.2 % Low 35.0-47.0 [facility] Comment on above: Performed By: #### L [id number], [id number] ####Budget Clerk: CAROLE CID ([id number])[facility])[address] [place] [address] Hemoglobin (Bld) [Mass/Vol] 7.7 g/dL Low 11.7-16. 0 [facility] Comment on above: Performed By: #### L [id number], [id number] ####Budget Clerk: CAROLE CID ([id number])[facility])[address] [place] [address] MCH (RBC) [Entitic mass] 29.4 pg Normal 26.0-34.0 [facility] Comment on above: Performed By: #### Mago [id number], [id number] ####Budget Clerk: CAROLE CID ([id number])[facility] ([facility])[address] [place] [address] MCHC 31.8 % Normal 30.5-36.0 [facility] Comment on above: Performed By: #### Mago [id number], [id number] ####Budget Clerk: CAROLE CID ([id number])[facility] ([facility])[address] [place] [address] MCV (RBC) [Entitic vol] 92.4 fL Normal 77.0-99.0 [facility] Comment on above: Performed By: #### Mago [id number], [id number] ####Budget Clerk: CAROLE CID ([id number])[facility] ([facility])[address] [place] [address] Platelet mean volume (Bld) [Entitic vol] 9.9 fL Normal 9.0-12.7 [facility] Comment on above: Performed By: #### Mago SORENSON, [id number] ####Budget Clerk: CAROLE CID ([id number])[facility] ([facility])[address] [place] [address] Platelets (Bld) [#/Vol] 375 10*3/uL Normal 140-440 [facility] Comment on above: Performed By: #### Mago [id number], [id number] ####Budget Clerk: CAROLE CID ([id number])[facility] ([facility])[address] [place] [address] RBC (Bld) [#/Vol] 2.62 10*6/uL Low 3.80-5.20 [facility] Comment on above: Performed By: #### Mago [id number], [id number] ####Budget Clerk: CAROLE CID ([id number])[facility] ([facility])[address] [place] [address] [place] WBC (Bld) [#/Vol] 18.3 10*3/uL High 3.6-10.7 [facility] Comment on above: Performed By: #### L [id number], [id number] ####Budget Clerk: CAROLE CID ([id number])[facility] ([facility])[address] [place] [address] COMPREHENSIVE METABOLIC PANE Demetris 12-16-2024 Albumin [Mass/Vol] 1.6 g/dL Low 3.4-4.8 [facility] Comment on above: Performed By: #### L AB113, LAB17, [id number] ####Budget Clerk: CAROLE CID ([id number])[facility] ([facility])[address] [place] [address] ALP [Catalytic activity/Vol] 72 U/L Normal 40-150 [facility] Comment on above: Performed By: #### Mago AB113, LAB17, [id number] ####Budget Clerk: CAROLE CID ([id number])[facility] ([facility])[address] [place] [address] ALT [Catalytic activity/Vol] U/L Normal <30 [facility] Comment on above: Performed By: #### L AB113, LAB17, [id number] ####Budget Clerk: CAROLE CID ([id number])[facility] ([facility])[address] [place] [address] Anion gap [Moles/Vol] 4 mmol/L Normal 3-13 [facility] Comment on above: Performed By: #### L AB113, LAB17, [id number] ####Budget Clerk: CAROLE CID ([id number])[facility] ([facility])[address] [place] [address] AST [Catalytic activity/Vol] 10 U/L Normal <34 [facility] Comment on above: Performed By: #### L AB113, LAB17, [id number] ####Budget Clerk: CAROLE CID ([id number])[facility] ([facility])[address] [place] [address] Bilirubin [Mass/Vol] 0.3 mg/dL Normal <1.2 [facility] Comment on above: Performed By: #### Mago ABDarlene, LAB17, [id number] ####Budget Clerk: CAROLE CID ([id number])[facility])[address] [place] [address] Calcium [Mass/Vol] 7.9 mg/dL Low 8.8-10.0 [facility] Comment on above: Performed By: #### Mago ABDarlene, LAB17, [id number] ####Budget Clerk: CAROLE CID ([id number])[facility] ([facility])[address] [place] [address] Chloride [Moles/Vol] 107 mmol/L Normal 98-107 [facility] Comment on above: Performed By: #### Mago ABDarlene, LAB17, [id number] ####Budget Clerk: CAROLE CID ([id number])[facility] ([facility])[address] [place] [address] CO2 [Moles/Vol] 23 mmol/L Normal 23-31 [facility] Comment on above: Performed By: #### Mago ABDarlene, LAB17, [id number] ####Budget Clerk: CAROLE CID ([id number])[facility])[address] [place] [address] Creatinine [Mass/Vol] 0.50 mg/dL Low 0.57-1.11 [facility] Comment on above: Performed By: #### Mago ABDarlene, LAB17, [id number] ####Budget Clerk: CAROLE CID ([id number])[facility])[address] [place] [address] GLOMERULAR FILTRATION RATE ML/MIN/1.73 SQ M.PREDICTED >90.0 Normal >60.0 [facility] Comment on above: Result Comment: Calc ulation based on the Chronic Kidney Disease Epidemiology Collaboration (CKD-EPI) equation refit without adjustment for race Performed By: #### L AB113, LAB17, [id number] ####Budget Clerk: CAROLE CID ([id number])[facility])[address] [place] [address] Glucose [Mass/Vol] 140 mg/dL High 82-115 [facility] Comment on above: Performed By: #### L AB113, LAB17, JGL521 ####Budget Clerk: CAROLE CID ([id number])[facility])[address] [place] [address] Potassium [Moles/Vol] 3.4 mmol/L Low 3.5-5.1 [facility] Comment on above: Result Comment: [facility] potassium values may be up to 0.5 mmol/L lower than serum values. Performed By: #### L AB113, LAB17, [id number] ####Budget Clerk: CAROLE CID ([id number])[facility])[address] [place] [address] Protein [Mass/Vol] 5.0 g/dL Low 6.4-8.3 [facility] Comment on above: Performed By: #### Mago ABDarlene, LAB17, QCD241 ####Budget Clerk: CAROLE CID ([id number])[facility] ([facility])[address] [place] [address] Sodium [Moles/Vol] 134 mmol/L Low 136-145 [facility] Comment on above: Performed By: #### L AB113, LAB17, [id number] ####Budget Clerk: CAROLE CID ([id number])[facility])[address] [place] [address] Urea nitrogen [Mass/Vol] 20 mg/dL Normal 9-23 [facility] Comment on above: Performed By: #### L AB113, LAB17, CYK178 ####Budget Clerk: CAROLE CID ([id number])[facility])[address] [place] [address] CT CERVICAL SPINE WO IV CONT RASTon 12-16-2024 CT CERVICAL SPINE WO IV CONTRAST Normal [facility] CT GUIDED BIOPSY BONE DEEPon 12-16-2024 CT GUIDED BIOPSY BONE DEEP Normal [facility] CULTURE ANAEROBICon 12-17-19 25 CULTURE ANAEROBIC Normal [facility] Comment on above: Performed By: #### L [id number] ####Budget Clerk: CAROLE CID ([id number])[facility] ([facility])[address] [place] [address] CULTURE, AEROBIC BACTERIA WI TH GRAM STAINon 12-16-2024 CULTURE, AEROBIC BACTERIA WITH GRAM STAIN Normal [facility] Comment on above: Performed By: #### L [id number] ####Budget Clerk: CAROLE CID ([id number])[facility] ([facility])[address] [place] [address] Consulton 12-16-2024 Consult Normal [facility] Culture, Blood (WB)on 2024 CUB Blood cultures x2, from two different sites No growth in 5 days. Normal [facility] Comment on above: Performed By: #### L 503.7505, L501.5200, L300.3900, L300.4310, L500.4050, M200.1000, L501.4021, L503.6005, L100.0100 ####[facility] [id number] [place], [address] MAGNESIUMon 12-16-2024 Magnesium [Mass/Vol] 1.8 mg/dL Normal 1.6-2.6 [facility] Comment on above: Result Comment: ANDRADE Rosario COMMENTS:Higher values can be expected in females during menses. Performed By: #### L AB113, LAB17, [id number] ####Budget Clerk: CAROLE CID ([id number])[facility] ([facility])[address] [place] [address] MANUAL DIFFERENTIAL (CELLAVI SANDOR)on 12-16-2024 BAND NEUTROPHILS TOTAL PER COUNTED LEUKOCYTES BY MANUAL COUNT 5 Normal [facility] Comment on above: Performed By: #### L [id number], [id number] ####Budget Clerk: CAROLE CID ([id number])[facility] ([facility])[address] [place] [address] BANDS (10*3/UL) IN BLOOD-CELLAVISION 0.9 10*3/uL High <=0.0 [facility] Comment on above: Performed By: #### L [id number], [id number] ####Budget Clerk: CAROLE CID ([id number])[facility] ([facility])[address] [place] [address] [place] BASOPHILS TOTAL PER COUNTED LEUKOCYTES BY MANUAL COUNT Normal [facility] Comment on above: Performed By: #### L [id number], [id number] ####Budget Clerk: CAROLE CID ([id number])[facility] ([facility])[address] [place] [address] BLASTS TOTAL PER COUNTED LEUKOCYTES BY MANUAL COUNT Normal [facility] Comment on above: Performed By: #### L [id number], [id number] ####Budget Clerk: CAROLE CID ([id number])[facility])[address] [place] [address] EOSINOPHILS TOTAL PER COUNTED LEUKOCYTES BY MANUAL COUNT Normal [facility] Comment on above: Performed By: #### Mago [id number], [id number] ####Budget Clerk: CAROLE CID ([id number])[facility] ([facility])[address] [place] [address] [place] LYMPHOCYTE VARIANT/100 LEUKOCYTES IN BLOOD- CELLAVISION 1 % High <=0 [facility] Comment on above: Performed By: #### L [id number], [id number] ####Budget Clerk: CAROLE CID ([id number])[facility] ([facility])[address] [place] [address] [place] LYMPHOCYTES (10*3/UL) IN BLOOD-CELLAVISION 1.3 10*3/uL Normal 1.0-4.3 [facility] Comment on above: Performed By: #### L [id number], [id number] ####Budget Clerk: CAROLE CID ([id number])[facility] ([facility])[address] [place] [address] [place] LYMPHOCYTES TOTAL PER COUNTED LEUKOCYTES BY MANUAL COUNT 7 Normal [facility] Comment on above: Performed By: #### L [id number], [id number] ####Budget Clerk: CAROLE CID ([id number])[facility] ([facility])[address] [place] [address] [place] LYMPHOCYTES/100 LEUKOCYTES IN BLOOD-CELLAVISION 7 % Low 15-45 [facility] Comment on above: Performed By: #### L [id number], [id number] ####Budget Clerk: CAROLE CID ([id number])[facility] [place] [address] [place] METAMYELOCYTES TOTAL PER COUNTED LEUKOCYTES BY MANUAL COUNT Normal [facility] Comment on above: Performed By: #### L [id number], [id number] ####Budget Clerk: CAROLE CID ([id number])[facility] ([facility])[address] [place] [address] [place] MONOCYTES (10*3/UL) IN BLOOD-CELLAVISION 1.1 10*3/uL High 0.0-0.9 [facility] Comment on above: Performed By: #### L [id number], [id number] ####Budget Clerk: CAROLE CID ([id number])[facility] [place] [address] [place] MONOCYTES TOTAL PER COUNTED LEUKOCYTES BY MANUAL COUNT 6 Normal [facility] Comment on above: Performed By: #### L [id number], [id number] ####Budget Clerk: CAROLE CID ([id number])[facility] [place] [address] [place] MONOCYTES/100 LEUKOCYTES IN BLOOD-SARI 6 % Normal 5-13 [facility] Comment on above: Performed By: #### L [id number], [id number] ####Budget Clerk: CAROLE CID ([id number])[facility] ([facility])[address] [place] [address] [place] MYELOCYTES COUNTED BY MANUAL COUNT [facility] Comment on above: Performed By: #### L [id number], [id number] ####Budget Clerk: CAROLE CID ([id number])[facility] ([facility])[address] [place] [address] [place] NEUTROPHILS BAND FORM/100 LEUKOCYTES IN BLOOD-CELLAVISI 5 % High <=0 [facility] Comment on above: Performed By: #### L [id number], [id number] ####Budget Clerk: CAROLE CID ([id number])[facility] ([facility])[address] [place] [address] [place] NEUTROPHILS TOTAL PER COUNTED LEUKOCYTES BY MANUAL COUNT 81 Normal [facility] Comment on above: Performed By: #### Mago [id number], [id number] ####Budget Clerk: CAROLE CID ([id number])[facility] ([facility])[address] [place] [address] [place] PROMYELOCYTES TOTAL PER COUNTED LEUKOCYTES BY MANUAL COUNT Normal [facility] Comment on above: Performed By: #### Mago [id number], [id number] ####Budget Clerk: CAROLE CID ([id number])[facility] ([facility])[address] [place] [address] RBC MORPHOLOGY IN BLOOD Normal Normal S [facility] Comment on above: Performed By: #### Mago [id number], [id number] ####Budget Clerk: CAROLE CID ([id number])[facility] ([facility])[address] [place] [address] [place] SEGMENTED NEUTROPHILS (10*3/UL) IN BLOOD-CELLAVISION 15.7 10*3/uL High 1.8-7.5 [facility] Comment on above: Performed By: #### Mago [id number], [id number] ####Budget Clerk: CAROLE CID ([id number])[facility] ([facility])[address] [place] [address] [place] SEGMENTED NEUTROPHILS/100 LEUKOCYTES-CE 81 % Normal 38-82 [facility] Comment on above: Performed By: #### L [id number], [id number] ####Budget Clerk: CAROLE CID ([id number])[facility] ([facility])[address] [place] [address] [place] TOXIC GRANULES PRESENCE IN BLOOD BY LIGHT MICROSCOPY (PRESENT) Present Abnormal (none) [facility] Comment on above: Performed By: #### L [id number], [id number] ####Budget Clerk: CAROLE CID ([id number])[facility])[address] [place] [address] UNCLASSIFIED CELLS TOTAL PER COUNTED LEUKOCYTES BY MANUAL COUNT Normal [facility] Comment on above: Performed By: #### L [id number], [id number] ####Budget Clerk: CAROLE CID ([id number])[facility])[address] [place] [address] VARIANT LYMPHOCYTES (10*3/UL) IN BLOOD-CELLAVISION 0.2 10*3/uL High <=0.0 [facility] Comment on above: Performed By: #### L [id number], [id number] ####Budget Clerk: CAROLE CID ([id number])[facility] ([facility])[address] [place] [address] VARIANT LYMPHOCYTES TOTAL PER COUNTED LEUKOCYTES BY MANUAL COUNT 1 Normal [facility] Comment on above: Performed By: #### L [id number], [id number] ####Budget Clerk: CAROLE CID ([id number])[facility])[address] [place] [address] Nursing Noteon 12-16-2024 Nursing Note Transferred to [facility] cart. Normal [facility] Nursing Note Normal [facility] Nursing Note Wound Care arrived t o pt's room for Prevention consult, but pt not in room at present time. Will return as time permits. Please Voicera for any questions or concerns. Gali Guadarrama, RN, CWCN Normal [facility] Nursing Note Patient to CT guided biopsy Normal [facility] PHOSPHORUSon 12-16-2024 Phosphate [Mass/Vol] 2.3 mg/dL Normal 2.3-4.7 [facility] Comment on above: Performed By: #### L [id number], [id number], [id number] ####Budget Clerk: CAROLE CID ([id number])[facility] ([facility])[address] [place] [address] PROTIME AND APTTon aPTT Coag (Bld) [Time] 57.7 s High 20.0-30.5 [facility] Comment on above: Performed By: #### L [id number] ####Budget Clerk: CAROLE CID ([id number])[facility])[address] [place] [address] INR Coag (PPP) [Relative time] 1.2 {INR} High 0.9-1.1 [facility] Comment on above: Result Comment: Evgeny mmended Anticoagulant Therapy: SEE BELOW----- INR of 2.0 - 3.0 : - Prophylaxis of Venous Thrombosis (high-risk surgery) - Treatment of Venous Thrombosis - Treatment of Pulmonary Embolism (Includes tissue heart valves, Acute Myocardial Infarction to prevent systemic embolism, Valvular Heart Disease, and Atrial Fibrillation)----- INR of 2.5 - 3.5 : - Mechanical Prosthetic Valves (high risk) - If oral anticoagulant therapy is used to prevent Myocardial Infarction Performed By: #### L [id number] ####Budget Clerk: CAROLE CID ([id number])[facility])[address] [place] [address] PT Coag (PPP) [Time] 13.6 s High 9.0-12.0 [facility] Comment on above: Performed By: #### L [id number] ####Budget Clerk: CAROLE CID ([id number])[facility])[address] [place] [address] aPTT Coag (Bld) [Time] 66.1 s High 20.0-30.5 [facility] Comment on above: Performed By: #### L [id number] ####Budget Clerk: CAROLE CID ([id number])[facility])[address] [place] [address] INR Coag (PPP) [Relative time] 1.2 {INR} High 0.9-1.1 [facility] Comment on above: Result Comment: Evgeny mmended Anticoagulant Therapy: SEE BELOW----- INR of 2.0 - 3.0 : - Prophylaxis of Venous Thrombosis (high-risk surgery) - Treatment of Venous Thrombosis - Treatment of Pulmonary Embolism (Includes tissue heart valves, Acute Myocardial Infarction to prevent systemic embolism, Valvular Heart Disease, and Atrial Fibrillation)----- INR of 2.5 - 3.5 : - Mechanical Prosthetic Valves (high risk) - If oral anticoagulant therapy is used to prevent Myocardial Infarction Performed By: #### L [id number] ####Budget Clerk: CAROLE CID ([id number])[facility] ([facility])[address] [place] [address] PT Coag (PPP) [Time] 13.3 s High 9.0-12.0 [facility] Comment on above: Performed By: #### L [id number] ####Budget Clerk: CAROLE CID ([id number])[facility])[address] [place] [address] Progress Noteon 12-16-2024 Progress Note Normal [facility] Progress Note Normal [facility] Progress Note Normal [facility] Progress Note Normal [facility] Progress Note Normal [facility] Progress Note Normal [facility] XR CHEST 1 VIEWon 12-16-2024 XR CHEST 1 VIEW Normal [facility] APTTon 12-15-2024 aPTT Coag (Bld) [Time] 52.6 s High 20.0-30.5 [facility] Comment on above: Result Comment: ANDRADE R COMMENTS:NOTE: The therapeutic time for Heparin anticoagulation, based on Xa activity inhibition, is an APTT of 46-80 seconds. Performed By: #### L [id number] ####Budget Clerk: CAROLE CID ([id number])[facility] ([facility])[address] [place] [address] aPTT Coag (Bld) [Time] 54.4 s High 20.0-30.5 [facility] Comment on above: Result Comment: ANDRADE Rosario COMMENTS:NOTE: The therapeutic time for Heparin anticoagulation, based on Xa activity inhibition, is an APTT of 46-80 seconds. Performed By: #### L [id number] ####Budget Clerk: CAROLE CID ([id number])[facility] ([facility])[address] [place] [address] aPTT Coag (Bld) [Time] 37.0 s High 20.0-30.5 [facility] Comment on above: Result Comment: ANDRADE Rosario COMMENTS:NOTE: The therapeutic time for Heparin anticoagulation, based on Xa activity inhibition, is an APTT of 46-80 seconds. Performed By: #### L [id number] ####Budget Clerk: CAROLE CID ([id number])[facility] ([facility])[address] [place] [address] BLOOD GAS ARTERIALon 025 AMOUNT OF OXYGEN .50 Normal [facility] Comment on above: Performed By: #### L [id number] ####Budget Clerk: CAROLE CID ([id number])[facility])[address] [place] [address] Base excess Calc (Bld) [Moles/Vol] 0.9 mmol/L Normal -3.0-3.0 [facility] Comment on above: Performed By: #### L [id number] ####Budget Clerk: CAROLE CID ([id number])[facility] ([facility])[address] [place] [address] CO2 [Moles/Vol] 25.4 mmol/L Normal 23.0-27.0 [facility] Comment on above: Performed By: #### L [id number] ####Budget Clerk: CAROLE CID ([id number])[facility])[address] [place] [address] HCO3 (Bld) [Moles/Vol] 24.3 mmol/L Normal 21.0-25.0 [facility] Comment on above: Performed By: #### L [id number] ####Budget Clerk: CAROLE CID ([id number])[facility])[address] [place] [address] Hemoglobin (Bld) [Mass/Vol] 8.6 g/dL Normal Screen only [facility] Comment on above: Performed By: #### L [id number] ####Budget Clerk: CAROLE CID ([id number])[facility])[address] [place] [address] OXYGEN SATURATION (%) IN ARTERIAL BLOOD 98.3 % Normal 95.0-100.0 [facility] Comment on above: Performed By: #### L [id number] ####Budget Clerk: CAROLE CID ([id number])[facility])[address] [place] [address] PCO2 ARTERIAL 33.8 mm Hg Low >35.0-<45. 0 [facility] Comment on above: Performed By: #### L [id number] ####Budget Clerk: CAORLE CID ([id number])[facility])[address] [place] [address] PH ARTERIAL 7.475 High 7.350-7.45 0 [facility] Comment on above: Performed By: #### L [id number] ####Budget Clerk: CAORLE CID ([id number])[facility])[address] [place] [address] PO2 ARTERIAL 120.5 mm Hg High 80.0-100.0 [facility] Comment on above: Performed By: #### L [id number] ####Budget Clerk: CAROLE CID ([id number])[facility])[address] [place] [address] SOURCE OF OXYGEN Ventilator Normal [facility] Comment on above: Performed By: #### L [id number] ####Budget Clerk: CAROLE CID ([id number])[facility])[address] [place] [address] CALCIUM, IONIZEDon 5 CALCIUM IONIZED 3.60 mg/dL Low 4.30-5.20 [facility] Comment on above: Performed By: #### L [id number] ####Budget Clerk: CAROLE CID ([id number])[facility])[address] [place] [address] PH, IONIZED CALCIUM 7.42 Normal 7.31-7.46 [facility] Comment on above: Performed By: #### L AB54 ####Budget Clerk: CAROLE CID ([id number])[facility])[address] [place] [address] CALCIUM IONIZED 3.90 mg/dL Low 4.30-5.20 [facility] Comment on above: Performed By: #### L AB54 ####Budget Clerk: CAROLE CID ([id number])[facility])[address] [place] [address] PH, IONIZED CALCIUM 7.47 High 7.31-7.46 [facility] Comment on above: Performed By: #### L AB54 ####Budget Clerk: CAROLE CID ([id number])[facility])[address] [place] [address] CBC WITH AUTO DIFFERENTIALon 12-15-2024 Basophils (Bld) [#/Vol] 0.1 10*3/uL Normal 0.0-0.2 [facility] Comment on above: Performed By: #### L [id number] ####Budget Clerk: CAROLE CID ([id number])[facility] ([facility])[address] [place] [address] Basophils/100 WBC (Bld) 0.3 % Normal 0.0-2.0 S [facility] Comment on above: Performed By: #### L [id number] ####Budget Clerk: CAROLE CID ([id number])[facility])[address] [place] [address] Eosinophils (Bld) [#/Vol] 0.0 10*3/uL Normal 0.0-0.5 [facility] Comment on above: Performed By: #### L [id number] ####Budget Clerk: CAROLE CID ([id number])[facility])[address] [place] [address] Eosinophils/100 WBC (Bld) 0.1 % Normal 0.0-6.0 [facility] Comment on above: Performed By: #### L [id number] ####Budget Clerk: CAROLE CID ([id number])[facility])[address] [place] [address] Erythrocyte distribution width (RBC) [Ratio] 15.4 % High 11.5-15.0 [facility] Comment on above: Performed By: #### L [id number] ####Budget Clerk: CAROLE CDI ([id number])[facility])[address] [place] [address] Hematocrit (Bld) [Volume fraction] 22.8 % Low 35.0-47.0 [facility] Comment on above: Performed By: #### L [id number] ####Budget Clerk: CAROLE CID ([id number])[facility])[address] [place] [address] Hemoglobin (Bld) [Mass/Vol] 7.5 g/dL Low 11.7-16. 0 [facility] Comment on above: Performed By: #### L [id number] ####Budget Clerk: CAROLE CID ([id number])[facility])[address] [place] [address] IMMATURE GRANS % 2.0 % Normal 0.0-2.0 [facility] Comment on above: Performed By: #### L [id number] ####Budget Clerk: CAROLE CID ([id number])[facility])[address] [place] [address] IMMATURE GRANS ABSOLUTE 0.4 10*3/uL High <0.1 [facility] Comment on above: Performed By: #### L [id number] ####Budget Clerk: CAROLE CID ([id number])[facility])[address] [place] [address] Lymphocytes (Bld) [#/Vol] 2.1 10*3/uL Normal 1.0-4.3 [facility] Comment on above: Performed By: #### L [id number] ####Budget Clerk: CAROLE CID ([id number])[facility])[address] [place] [address] Lymphocytes/100 WBC (Bld) 9.7 % Low 15.0-45.0 [facility] Comment on above: Performed By: #### L [id number] ####Budget Clerk: CAROLE CID ([id number])[facility])[address] [place] [address] MCH (RBC) [Entitic mass] 29.9 pg Normal 26.0-34.0 [facility] Comment on above: Performed By: #### L [id number] ####Budget Clerk: CAROLE CID ([id number])[facility])[address] [place] [address] MCHC 32.9 % Normal 30.5-36.0 [facility] Comment on above: Performed By: #### L [id number] ####Budget Clerk: CAROLE CID ([id number])[facility])[address] [place] [address] MCV (RBC) [Entitic vol] 90.8 fL Normal 77.0-99.0 S [facility] Comment on above: Performed By: #### L [id number] ####Budget Clerk: CAROLE CID ([id number])[facility])[address] [place] [address] Monocytes (Bld) [#/Vol] 1.8 10*3/uL High 0.0-0.9 [facility] Comment on above: Performed By: #### L [id number] ####Budget Clerk: CAROLE CID ([id number])[facility])[address] [place] [address] Monocytes/100 WBC (Bld) 8.2 % Normal 5.0-13.0 [facility] Comment on above: Performed By: #### L [id number] ####Budget Clerk: CAROLE CID ([id number])[facility])[address] [place] [address] NEUTROPHILS ABSOLUTE 17.4 10*3/uL High 1.8-7.5 [facility] Comment on above: Performed By: #### L [id number] ####Budget Clerk: CAROLE CID ([id number])[facility] ([facility])[address] [place] [address] Neutrophils/100 WBC (Bld) 79.7 % Normal 38.0-82.0 [facility] Comment on above: Performed By: #### L [id number] ####Budget Clerk: CAROLE CID ([id number])[facility] ([facility])[address] [place] [address] NRBC 0.0 /100 WBCs Normal 0.0-2.0 [facility] Comment on above: Performed By: #### L [id number] ####Budget Clerk: CAROLE CID ([id number])[facility] ([facility])[address] [place] [address] Platelet mean volume (Bld) [Entitic vol] 9.9 fL Normal 9.0-12.7 [facility] Comment on above: Performed By: #### L [id number] ####Budget Clerk: CAROLE CID ([id number])[facility] ([facility])[address] [place] [address] Platelets (Bld) [#/Vol] 345 10*3/uL Normal 140-440 [facility] Comment on above: Performed By: #### L [id number] ####Budget Clerk: CAROLE CID ([id number])[facility] ([facility])[address] [place] [address] RBC (Bld) [#/Vol] 2.51 10*6/uL Low 3.80-5.20 [facility] Comment on above: Performed By: #### L [id number] ####Budget Clerk: CAROLE CID ([id number])[facility] ([facility])[address] [place] [address] WBC (Bld) [#/Vol] 21.9 10*3/uL High 3.6-10.7 [facility] Comment on above: Performed By: #### L [id number] ####Budget Clerk: CAROLE CID ([id number])[facility] ([facility])[address] [place] [address] COMPREHENSIVE METABOLIC PANE Demetris 12-15-2024 Albumin [Mass/Vol] 1.7 g/dL Low 3.4-4.8 [facility] Comment on above: Performed By: #### Mago GALICIA, LAB17, [id number] ####Budget Clerk: CAROLE CID ([id number])[facility] ([facility])[address] [place] [address] ALP [Catalytic activity/Vol] 72 U/L Normal 40-150 [facility] Comment on above: Performed By: #### Mago GALICIA, LAB17, [id number] ####Budget Clerk: CAROLE CID ([id number])[facility] ([facility])[address] [place] [address] ALT [Catalytic activity/Vol] U/L Normal <30 [facility] Comment on above: Performed By: #### Mago GALICIA, LAB17, [id number] ####Budget Clerk: CAROLE CID ([id number])[facility] ([facility])[address] [place] [address] Anion gap [Moles/Vol] 7 mmol/L Normal 3-13 [facility] Comment on above: Performed By: #### Mago GALICIA, LAB17, [id number] ####Budget Clerk: CAROLE CID ([id number])[facility] ([facility])[address] [place] [address] AST [Catalytic activity/Vol] 16 U/L Normal <34 [facility] Comment on above: Performed By: #### Mago GALICIA, LAB17, [id number] ####Budget Clerk: CAROLE CID ([id number])[facility] ([facility])[address] [place] [address] Bilirubin [Mass/Vol] 0.4 mg/dL Normal <1.2 [facility] Comment on above: Performed By: #### Mago GALICIA, LAB17, [id number] ####Budget Clerk: CAROLE CID ([id number])[facility] ([facility])[address] [place] [address] Calcium [Mass/Vol] 7.8 mg/dL Low 8.8-10.0 [facility] Comment on above: Performed By: #### Mago AB103, LAB17, [id number] ####Budget Clerk: CAROLE CID ([id number])[facility])[address] [place] [address] Chloride [Moles/Vol] 109 mmol/L High 98-107 [facility] Comment on above: Performed By: #### Mago ABOri, LAB17, [id number] ####Budget Clerk: CAROLE CID ([id number])[facility])[address] [place] [address] CO2 [Moles/Vol] 22 mmol/L Low 23-31 [facility] Comment on above: Performed By: #### Mago BOSWELL103, LAB17, [id number] ####Budget Clerk: CAROLE CID ([id number])[facility])[address] [place] [address] Creatinine [Mass/Vol] 0.55 mg/dL Low 0.57-1.11 [facility] Comment on above: Performed By: #### Mago ABOri, LAB17, [id number] ####Budget Clerk: CAROLE CID ([id number])[facility])[address] [place] [address] GLOMERULAR FILTRATION RATE ML/MIN/1.73 SQ M.PREDICTED >90.0 Normal >60.0 [facility] Comment on above: Result Comment: Calc ulation based on the Chronic Kidney Disease Epidemiology Collaboration (CKD-EPI) equation refit without adjustment for race Performed By: #### L AB103, LAB17, [id number] ####Budget Clerk: CAROLE CID ([id number])[facility] ([facility])[address] [place] [address] [place] Glucose [Mass/Vol] 141 mg/dL High 82-115 [facility] Comment on above: Performed By: #### L AB103, LAB17, [id number] ####Budget Clerk: CAROLE CID ([id number])[facility])[address] [place] [address] [place] Potassium [Moles/Vol] 3.2 mmol/L Low 3.5-5.1 [facility] Comment on above: Result Comment: [facility] potassium values may be up to 0.5 mmol/L lower than serum values. Performed By: #### L AB103, LAB17, [id number] ####Budget Clerk: CAROLE CID ([id number])[facility])[address] [place] [address] Protein [Mass/Vol] 4.8 g/dL Low 6.4-8.3 [facility] Comment on above: Performed By: #### L 103, LAB17, [id number] ####Budget Clerk: CAROLE CID ([id number])[facility])[address] [place] [address] Sodium [Moles/Vol] 138 mmol/L Normal 136-145 [facility] Comment on above: Performed By: #### Mago GALICIA, LAB17, [id number] ####Budget Clerk: CAROLE CID ([id number])[facility])[address] [place] [address] Urea nitrogen [Mass/Vol] 22 mg/dL Normal 9-23 [facility] Comment on above: Performed By: #### Mago BOSWELL103, LAB17, [id number] ####Budget Clerk: CAROLE CID ([id number])[facility])[address] [place] [address] Consulton 12-15-2024 Consult Normal [facility] MAGNESIUMon 12-15-2024 Magnesium [Mass/Vol] 1.8 mg/dL Normal 1.6-2.6 [facility] Comment on above: Result Comment: ORDE R COMMENTS:Higher values can be expected in females during menses. Performed By: #### L FRIDA, LAB17, [id number] ####Budget Clerk: CAROLE CID ([id number])[facility])[address] [place] [address] [place] PHOSPHORUSon 12-15-2024 Phosphate [Mass/Vol] 2.9 mg/dL Normal 2.3-4.7 [facility] Comment on above: Performed By: #### L AB103, LAB17, [id number] ####Budget Clerk: CAROLE CID ([id number])[facility] ([facility])[address] [place] [address] PROTIME AND APTTon aPTT Coag (Bld) [Time] 82.4 s High 20.0-30.5 [facility] Comment on above: Performed By: #### L [id number] ####Budget Clerk: CAROLE CID ([id number])[facility] [place] [address] INR Coag (PPP) [Relative time] 1.2 {INR} High 0.9-1.1 [facility] Comment on above: Result Comment: Evgeny mmended Anticoagulant Therapy: SEE BELOW----- INR of 2.0 - 3.0 : - Prophylaxis of Venous Thrombosis (high-risk surgery) - Treatment of Venous Thrombosis - Treatment of Pulmonary Embolism (Includes tissue heart valves, Acute Myocardial Infarction to prevent systemic embolism, Valvular Heart Disease, and Atrial Fibrillation)----- INR of 2.5 - 3.5 : - Mechanical Prosthetic Valves (high risk) - If oral anticoagulant therapy is used to prevent Myocardial Infarction Performed By: #### L [id number] ####Budget Clerk: CAROLE CID ([id number])[facility] ([facility])[address] [place] [address] PT Coag (PPP) [Time] 13.1 s High 9.0-12.0 [facility] Comment on above: Performed By: #### L [id number] ####Budget Clerk: CAROLE CID ([id number])[facility] ([facility])[address] [place] [address] Progress Noteon 12-15-2024 Progress Note Normal [facility] Progress Note Patient tolerated trial on transport vent well. She maintained appropriate vitals. Trial ended after 35 minutes and patient placed back on 980 ventilator with previous settings. Normal [facility] Progress Note Normal [facility] VANCOMYCIN, AUC TIMED DOSING on 12-15-2024 VANCOMYCIN, AUC 29.2 ug/mL Normal [facility] Comment on above: Result Comment: ANDRADE Rosario COMMENTS:Please draw random level at least >2 hours after the end of the last vancomycin infusion, or 30-minutes before next infusion.Toxicity is seen at concentrations >80-100 ug/mLTherapeutic (Peak) range: 20-40Therapeutic (Trough) range: 5-10 Performed By: #### L AB39 ####Budget Clerk: CAROLE CID ([id number])[facility])[address] [place] [address] XR CHEST 1 VIEWon 12-15-2024 XR CHEST 1 VIEW Normal [facility] [id number] 12-14-2024 [id number] Normal [facility] ACINETOBACTER BAUMANNII PCRo n 12-14-2024 ACINETOBACTER BAUMANNII PCR Normal [facility] Comment on above: Performed By: #### L [id number] ####[facility] ([facility])[address] [place] [address] [address]ES [address] APTTon 12-14-2024 aPTT Coag (Bld) [Time] 58.7 s High 20.0-30.5 [facility] Comment on above: Result Comment: ANDRADE R COMMENTS:NOTE: The therapeutic time for Heparin anticoagulation, based on Xa activity inhibition, is an APTT of 46-80 seconds. Performed By: #### L [id number] ####Budget Clerk: CAROLE CID ([id number])[facility] ([facility])[address] [place] [address] aPTT Coag (Bld) [Time] 58.8 s High 20.0-30.5 [facility] Comment on above: Result Comment: ANDRADE Rosario COMMENTS:NOTE: The therapeutic time for Heparin anticoagulation, based on Xa activity inhibition, is an APTT of 46-80 seconds. Performed By: #### L [id number] ####Budget Clerk: CAROLE CID ([id number])[facility] ([facility])[address] [place] [address] BLOOD GAS ARTERIALon 025 AMOUNT OF OXYGEN 50% Normal [facility] Comment on above: Performed By: #### L AB76 ####Budget Clerk: CAROLE CID ([id number])[facility])[address] [place] [address] Base excess Calc (Bld) [Moles/Vol] 1.1 mmol/L Normal -3.0-3.0 [facility] Comment on above: Performed By: #### L AB76 ####Budget Clerk: CAROLE CID ([id number])[facility] ([facility])[address] [place] [address] CO2 [Moles/Vol] 25.8 mmol/L Normal 23.0-27.0 [facility] Comment on above: Performed By: #### L AB76 ####Budget Clerk: CAROLE CID ([id number])[facility])[address] [place] [address] HCO3 (Bld) [Moles/Vol] 24.7 mmol/L Normal 21.0-25.0 [facility] Comment on above: Performed By: #### L AB76 ####Budget Clerk: CAROLE CID ([id number])[facility])[address] [place] [address] Hemoglobin (Bld) [Mass/Vol] 9.6 g/dL Normal Screen only [facility] Comment on above: Performed By: #### L AB76 ####Budget Clerk: CAROLE CID ([id number])[facility])[address] [place] [address] OXYGEN SATURATION (%) IN ARTERIAL BLOOD 97.4 % Normal 95.0-100.0 [facility] Comment on above: Performed By: #### L AB76 ####Budget Clerk: CAROLE CID ([id number])[facility])[address] [place] [address] PCO2 ARTERIAL 35.1 mm Hg Normal >35.0-<45. 0 [facility] Comment on above: Performed By: #### L AB76 ####Budget Clerk: CAROLE CID ([id number])[facility])[address] [place] [address] PH ARTERIAL 7.465 High 7.350-7.45 0 [facility] Comment on above: Performed By: #### L AB76 ####Budget Clerk: CAROLE CID ([id number])[facility])[address] [place] [address] PO2 ARTERIAL 90.7 mm Hg Normal 80.0-100.0 [facility] Comment on above: Performed By: #### L AB76 ####Budget Clerk: CAROLE CID ([id number])[facility])[address] [place] [address] SOURCE OF OXYGEN Ventilator Normal [facility] Comment on above: Performed By: #### L AB76 ####Budget Clerk: CAROLE CID ([id number])[facility])[address] [place] [address] CALCIUM, IONIZEDon CALCIUM IONIZED 4.20 mg/dL Low 4.30-5.20 [facility] Comment on above: Performed By: #### L [id number] ####Budget Clerk: CAROLE CID ([id number])[facility])[address] [place] [address] PH, IONIZED CALCIUM 7.42 Normal 7.31-7.46 [facility] Comment on above: Performed By: #### L [id number] ####Budget Clerk: CAROLE CID ([id number])[facility])[address] [place] [address] CHRISTINE AURIS SCREENon 12-14 CHRISTINE AURIS SCREEN Normal [facility] Comment on above: Performed By: #### L [id number] ####[facility] ([facility])[address] CYRUS SCHNEIDER [address] [place] [address] CBC WITH AUTO DIFFERENTIALon 12-14-2024 Erythrocyte distribution width (RBC) [Ratio] 15.5 % High 11.5-15.0 [facility] Comment on above: Performed By: #### L [id number] ####Budget Clerk: CAROLE CID ([id number])[facility])[address] [place] [address] Hematocrit (Bld) [Volume fraction] 25.4 % Low 35.0-47.0 [facility] Comment on above: Performed By: #### L [id number], [id number] ####Budget Clerk: CAROLE CID ([id number])[facility])[address] [place] [address] Hemoglobin (Bld) [Mass/Vol] 8.2 g/dL Low 11.7-16. 0 [facility] Comment on above: Performed By: #### L [id number], [id number] ####Budget Clerk: CAROLE CID ([id number])[facility])[address] [place] [address] MCH (RBC) [Entitic mass] 29.8 pg Normal 26.0-34.0 [facility] Comment on above: Performed By: #### L [id number], [id number] ####Budget Clerk: CAROLE CID ([id number])[address] MCHC 32.3 % Normal 30.5-36.0 [facility] Comment on above: Performed By: #### L [id number], [id number] ####Budget Clerk: CAROLE CID ([id number])[address] MCV (RBC) [Entitic vol] 92.4 fL Normal 77.0-99.0 S [facility] Comment on above: Performed By: #### L [id number], [id number] ####Budget Clerk: CAROLE CID ([id number])[address] Platelet mean volume (Bld) [Entitic vol] 10.0 fL Normal 9.0-12.7 [facility] Comment on above: Performed By: #### L [id number], [id number] ####Budget Clerk: CAROLE CID ([id number])[facility] ([facility])[address] [place] [address] Platelets (Bld) [#/Vol] 370 10*3/uL Normal 140-440 [facility] Comment on above: Performed By: #### L [id number], [id number] ####Budget Clerk: CAROLE CID ([id number])[facility] ([facility])[address] [place] [address] RBC (Bld) [#/Vol] 2.75 10*6/uL Low 3.80-5.20 [facility] Comment on above: Performed By: #### L [id number], [id number] ####Budget Clerk: CAROLE CID ([id number])[facility] ([facility])[address] [place] [address] WBC (Bld) [#/Vol] 22.8 10*3/uL High 3.6-10.7 [facility] Comment on above: Performed By: #### L [id number], [id number] ####Budget Clerk: CAROLE CID ([id number])[facility] ([facility])[address] [place] [address] COMPREHENSIVE METABOLIC PANE Demetris 12-14-2024 Albumin [Mass/Vol] 1.8 g/dL Low 3.4-4.8 [facility] Comment on above: Performed By: #### L ABDarlene, LAB17, [id number] ####Budget Clerk: CAROLE CID ([id number])[facility] ([facility])[address] [place] [address] ALP [Catalytic activity/Vol] 77 U/L Normal 40-150 [facility] Comment on above: Performed By: #### L [id number], LAB17, [id number] ####Budget Clerk: CAROLE CID ([id number])[facility])[address] [place] [address] ALT [Catalytic activity/Vol] 9 U/L Normal <30 [facility] Comment on above: Performed By: #### L AB113, LAB17, [id number] ####Budget Clerk: CAROLE CID ([id number])[facility] ([facility])[address] [place] [address] Anion gap [Moles/Vol] 7 mmol/L Normal 3-13 [facility] Comment on above: Performed By: #### L ABDarlene, LAB17, [id number] ####Budget Clerk: CAROLE CDI ([id number])[facility] ([facility])[address] [place] [address] AST [Catalytic activity/Vol] 33 U/L Normal <34 [facility] Comment on above: Performed By: #### Mago ABDalrene, LAB17, [id number] ####Budget Clerk: CAROLE CID ([id number])[facility] ([facility])[address] [place] [address] Bilirubin [Mass/Vol] 0.4 mg/dL Normal <1.2 [facility] Comment on above: Performed By: #### Mago ABDarlene, LAB17, [id number] ####Budget Clerk: CAROLE CID ([id number])[facility] ([facility])[address] [place] [address] Calcium [Mass/Vol] 8.0 mg/dL Low 8.8-10.0 [facility] Comment on above: Performed By: #### Mago ABDarlene, LAB17, [id number] ####Budget Clerk: CAROLE CID ([id number])[facility] ([facility])[address] [place] [address] Chloride [Moles/Vol] 110 mmol/L High 98-107 [facility] Comment on above: Performed By: #### L ABDarlene, LAB17, [id number] ####Budget Clerk: CAROLE CID ([id number])[facility])[address] [place] [address] CO2 [Moles/Vol] 23 mmol/L Normal 23-31 [facility] Comment on above: Performed By: #### L ABDarlene, LAB17, [id number] ####Budget Clerk: CAROLE CID ([id number])[facility])[address] [place] [address] Creatinine [Mass/Vol] 0.53 mg/dL Low 0.57-1.11 [facility] Comment on above: Performed By: #### L AB113, LAB17, [id number] ####Budget Clerk: CAROLE CID ([id number])[facility])[address] [place] [address] GLOMERULAR FILTRATION RATE ML/MIN/1.73 SQ M.PREDICTED >90.0 Normal >60.0 [facility] Comment on above: Result Comment: Calc ulation based on the Chronic Kidney Disease Epidemiology Collaboration (CKD-EPI) equation refit without adjustment for race Performed By: #### L AB113, LAB17, [id number] ####Budget Clerk: CAROLE CID ([id number])[facility])[address] [place] [address] Glucose [Mass/Vol] 109 mg/dL Normal 82-115 [facility] Comment on above: Performed By: #### L AB113, LAB17, [id number] ####Budget Clerk: CAROLE CID ([id number])[facility])[address] [place] [address] Potassium [Moles/Vol] 3.3 mmol/L Low 3.5-5.1 [facility] Comment on above: Result Comment: [facility] potassium values may be up to 0.5 mmol/L lower than serum values. Performed By: #### L AB113, LAB17, [id number] ####Budget Clerk: CAROLE CID ([id number])[facility] ([facility])[address] [place] [address] Protein [Mass/Vol] 4.9 g/dL Low 6.4-8.3 [facility] Comment on above: Performed By: #### L AB113, LAB17, [id number] ####Budget Clerk: CAROLE CID ([id number])[facility])[address] [place] [address] Sodium [Moles/Vol] 140 mmol/L Normal 136-145 [facility] Comment on above: Performed By: #### L AB113, LAB17, [id number] ####Budget Clerk: CAROLE CID ([id number])[facility])[address] [place] [address] Urea nitrogen [Mass/Vol] 16 mg/dL Normal 9-23 [facility] Comment on above: Performed By: #### L AB113, LAB17, [id number] ####Budget Clerk: CAROLE CID ([id number])[facility])[address] [place] [address] Consulton 12-14-2024 Consult Normal [facility] Culture, Blood (WB)on 2024 CUB Blood cultures x2, from two different sites No growth in 5 days. Normal [facility] Comment on above: Performed By: #### M 200.1000 ####[facility] [address] [place], [place], [address] ECG 12-LEADon 12-14-2024 ECG 12-LEAD IMPRESSION: Atrial tachycardia Low voltage, precordial leads Borderline prolonged QT interval Electronically Signed On 12-14-2024 15:51:31 EDT by Abelardo Robles Normal [facility] MAGNESIUMon 12-14-2024 Magnesium [Mass/Vol] 1.9 mg/dL Normal 1.6-2.6 [facility] Comment on above: Result Comment: ANDRADE Rosario COMMENTS:Higher values can be expected in females during menses. Performed By: #### L AB113, LAB17, [id number] ####Budget Clerk: CAROLE CID ([id number])[facility] ([facility])[address] [place] [address] MANUAL DIFFERENTIAL (CELLAVI SANDOR)on 12-14-2024 BAND NEUTROPHILS TOTAL PER COUNTED LEUKOCYTES BY MANUAL COUNT 14 Normal [facility] Comment on above: Performed By: #### L [id number], [id number] ####Budget Clerk: CAROLE CID ([id number])[facility])[address] [place] [address] [place] BANDS (10*3/UL) IN BLOOD-CELLAVISION 3.2 10*3/uL High <=0.0 [facility] Comment on above: Performed By: #### L [id number], [id number] ####Budget Clerk: CAROLE CID ([id number])[facility] ([facility])[address] [place] [address] [place] BASOPHILS TOTAL PER COUNTED LEUKOCYTES BY MANUAL COUNT Normal [facility] Comment on above: Performed By: #### L [id number], [id number] ####Budget Clerk: CAROLE CID ([id number])[facility] ([facility])[address] [place] [address] [place] BLASTS TOTAL PER COUNTED LEUKOCYTES BY MANUAL COUNT Normal [facility] Comment on above: Performed By: #### L [id number], [id number] ####Budget Clerk: CAROLE CID ([id number])[facility] ([facility])[address] [place] [address] [place] EOSINOPHILS TOTAL PER COUNTED LEUKOCYTES BY MANUAL COUNT Normal [facility] Comment on above: Performed By: #### L [id number], [id number] ####Budget Clerk: CAROLE CID ([id number])[facility] ([facility])[address] [place] [address] [place] LYMPHOCYTES (10*3/UL) IN BLOOD-CELLAVISION 0.5 10*3/uL Low 1.0-4.3 [facility] Comment on above: Performed By: #### L [id number], [id number] ####Budget Clerk: CAROLE CID ([id number])[facility] ([facility])[address] [place] [address] [place] LYMPHOCYTES TOTAL PER COUNTED LEUKOCYTES BY MANUAL COUNT 2 Normal [facility] Comment on above: Performed By: #### L [id number], [id number] ####Budget Clerk: CAROLE CID ([id number])[facility] ([facility])[address] [place] [address] [place] LYMPHOCYTES/100 LEUKOCYTES IN BLOOD-CELLAVISION 2 % Low 15-45 [facility] Comment on above: Performed By: #### L [id number], [id number] ####Budget Clerk: CAROLE CID ([id number])[facility])[address] [place] [address] METAMYELOCYTES TOTAL PER COUNTED LEUKOCYTES BY MANUAL COUNT Normal [facility] Comment on above: Performed By: #### L [id number], [id number] ####Budget Clerk: CAROLE CID ([id number])[facility])[address] [place] [address] [place] MONOCYTES (10*3/UL) IN BLOOD-CELLAVISION 0.5 10*3/uL Normal 0.0-0.9 [facility] Comment on above: Performed By: #### L [id number], [id number] ####Budget Clerk: CAROLE CID ([id number])[facility])[address] [place] [address] MONOCYTES TOTAL PER COUNTED LEUKOCYTES BY MANUAL COUNT 2 Normal [facility] Comment on above: Performed By: #### L [id number], [id number] ####Budget Clerk: CAROLE CID ([id number])[facility])[address] [place] [address] [place] MONOCYTES/100 LEUKOCYTES IN BLOOD-SARI 2 % Low 5-13 [facility] Comment on above: Performed By: #### L [id number], [id number] ####Budget Clerk: CAROLE CID ([id number])[facility])[address] [place] [address] [place] MYELOCYTES COUNTED BY MANUAL COUNT Normal [facility] Comment on above: Performed By: #### L [id number], [id number] ####Budget Clerk: CAROLE CID ([id number])[facility])[address] [place] [address] [place] NEUTROPHILS BAND FORM/100 LEUKOCYTES IN BLOOD-CELLAVISI 14 % High <=0 [facility] Comment on above: Performed By: #### L [id number], [id number] ####Budget Clerk: CAROLE CID ([id number])[facility] ([facility])[address] [place] [address] [place] NEUTROPHILS TOTAL PER COUNTED LEUKOCYTES BY MANUAL COUNT 83 Normal [facility] Comment on above: Performed By: #### L [id number], [id number] ####Budget Clerk: CAROLE CID ([id number])[facility] ([facility])[address] [place] [address] [place] PROMYELOCYTES TOTAL PER COUNTED LEUKOCYTES BY MANUAL COUNT [facility] Comment on above: Performed By: #### L [id number], [id number] ####Budget Clerk: CAROLE CID ([id number])[facility] ([facility] [place] [address] RBC MORPHOLOGY IN BLOOD Normal Normal [facility] Comment on above: Performed By: #### L [id number], [id number] ####Budget Clerk: CAROLE CID ([id number])[facility])[address] [place] [address] SEGMENTED NEUTROPHILS (10*3/UL) IN BLOOD-CELLAVISION 21.9 10*3/uL High 1.8-7.5 [facility] Comment on above: Performed By: #### L [id number], [id number] ####Budget Clerk: CAROLE CID ([id number])[facility] [place] [address] [place] SEGMENTED NEUTROPHILS/100 LEUKOCYTES-CE 82 % Normal 38-82 [facility] Comment on above: Performed By: #### L [id number], [id number] ####Budget Clerk: CAROLE CID ([id number])[facility] [place] [address] [place] UNCLASSIFIED CELLS TOTAL PER COUNTED LEUKOCYTES BY MANUAL COUNT [facility] Comment on above: Performed By: #### L [id number], [id number] ####Budget Clerk: CAROLE CID ([id number])[facility] [place] [address] [place] VARIANT LYMPHOCYTES TOTAL PER COUNTED LEUKOCYTES BY MANUAL COUNT [facility] Comment on above: Performed By: #### L [id number], [id number] ####Budget Clerk: CAROLE CID ([id number])[facility])[address] [place] [address] PHOSPHORUSon 12-14-2024 Phosphate [Mass/Vol] 2.9 mg/dL Normal 2.3-4.7 [facility] Comment on above: Performed By: #### L AB113, LAB17, [id number] ####Budget Clerk: CAROLE CID ([id number])[facility])[address] [place] [address] PNEUMONIA PCR PANELon 2024 PNEUMONIA PCR PANEL Normal [facility] Comment on above: Performed By: #### L [id number] ####Budget Clerk: CAROLE CID ([id number])[facility])[address] [place] [address] PROTIME AND APTTon aPTT Coag (Bld) [Time] 62.2 s High 20.0-30.5 [facility] Comment on above: Performed By: #### L [id number] ####Budget Clerk: CAROLE CID ([id number])[facility])[address] [place] [address] INR Coag (PPP) [Relative time] 1.2 {INR} High 0.9-1.1 [facility] Comment on above: Result Comment: Evgeny mmended Anticoagulant Therapy: SEE BELOW----- INR of 2.0 - 3.0 : - Prophylaxis of Venous Thrombosis (high-risk surgery) - Treatment of Venous Thrombosis - Treatment of Pulmonary Embolism (Includes tissue heart valves, Acute Myocardial Infarction to prevent systemic embolism, Valvular Heart Disease, and Atrial Fibrillation)----- INR of 2.5 - 3.5 : - Mechanical Prosthetic Valves (high risk) - If oral anticoagulant therapy is used to prevent Myocardial Infarction Performed By: #### L [id number] ####Budget Clerk: CAROLE CID ([id number])[facility])[address] [place] [address] PT Coag (PPP) [Time] 12.9 s High 9.0-12.0 [facility] Comment on above: Performed By: #### L [id number] ####Budget Clerk: CAROLE CID ([id number])[facility] ([facility])[address] [place] [address] Progress Noteon 12-14-2024 Progress Note Normal [facility] Progress Note Normal [facility] Progress Note Normal [facility] Progress Note Normal [facility] RESPIRATORY CULTURE AND STAI Non 12-14-2024 RESPIRATORY CULTURE AND STAIN Normal [facility] Comment on above: Performed By: #### L [id number] ####Budget Clerk: CAROLE CID ([id number])[facility] ([facility])[address] [place] [address] Urine Cultureon 12-14-2024 URC Culture exhibits no growth. Normal [facility] Comment on above: Performed By: #### L 400.0001, M100.2200 ####[facility] [id number] [place], [address] VANCOMYCIN, AUC TIMED DOSING on 12-14-2024 VANCOMYCIN, AUC 26.0 ug/mL Normal [facility] Comment on above: Result Comment: ANDRADE Rosario COMMENTS:Please draw random level at least >2 hours after the end of the last vancomycin infusion, or 30-minutes before next infusion.Toxicity is seen at concentrations >80-100 ug/mLTherapeutic (Peak) range: 20-40Therapeutic (Trough) range: 5-10 Performed By: #### L [id number] ####Budget Clerk: CAROLE CID ([id number])[facility])[address] [place] [address] XR CHEST 1 VIEWon 12-14-2024 XR CHEST 1 VIEW Normal [facility] XR EYE FOREIGN BODY BILATERA Demetris 12-14-2024 XR EYE FOREIGN BODY BILATERAL Normal [facility] 12 Lead EKGon 12-13-2024 12 Lead EKG Normal [facility] 30on 12-13-2024 30 Normal [facility] 30 Normal [facility] ALP [Catalytic activity/Vol] Ordered By: Jermain Archer on 12-13-2024 Serum or plasma alkaline phosphatase measurement 101 U/L 35-104 [facility] ALT [Catalytic activity/Vol] Ordered By: Jermain Archer on 12-13-2024 Serum or plasma alanine aminotransferase (ALT) measurement 14 U/L <35 [facility] APTTon 12-13-2024 aPTT Coag (Bld) [Time] 136.7 s Critically high 20.0-30. 5 [facility] Comment on above: Result Comment: ANDRADE Rosario COMMENTS:NOTE: The therapeutic time for Heparin anticoagulation, based on Xa activity inhibition, is an APTT of 46-80 seconds. Performed By: #### L [id number] ####Budget Clerk: CAROLE CID ([id number])[address] aPTT Coag (Bld) [Time] 33.0 s High 20.0-30.5 [facility] Comment on above: Result Comment: ANDRADE Rosario COMMENTS:NOTE: The therapeutic time for Heparin anticoagulation, based on Xa activity inhibition, is an APTT of 46-80 seconds. Performed By: #### L [id number] ####Budget Clerk: CAROLE CID ([id number])[address] Abdomen/Pelvis W IV Cont ONL Yon 12-13-2024 Abdomen/Pelvis W IV Cont ONLY Normal [facility] Absolute lymphocyte countOrd ered By: Jermain Archer on 12-13-2024 Lymphocytes Auto (Unsp spec) [#/Vol] 2.39 10*3/uL 0.83-4.51 [facility] Absolute neutrophil countOrd ered By: Jermain Archer on 12-13-2024 Absolute neutrophil count 20.4 X10^3/uL High 2.0-7.7 [facility] Activated partial thrombopla stin time (aPTT) in platelet poor plasma by coagulation aOrdered By: Jermain Archer on 12-13-2024 aPTT Coag (PPP) [Time] 28.3 s 24.1-36.2 [facility] Albumin [Mass/Vol]Ordered By : Jermain Archer on 12-13-2024 Serum or plasma albumin measurement (mass/volume) 2.8 g/dL Low 3.4-4.8 [facility] Albumin/Globulin [Mass ratio ]Ordered By: Jermain Archer on 12-13-2024 Serum or plasma albumin/globulin mass ratio 0.8 RATIO Low 0.9-2.4 [facility] Anion gap [Moles/Vol]Ordered By: Jermain Acrher on 12-13-2024 Anion gap in Serum or Plasma 14 5- [facility] Anion gap in Serum or Plasma Ordered By: Jermain Archer on 12-13-2024 Anion gap [Moles/Vol] 14 mmol/L 5- [facility] Arterial patency Wrist arter y --pre arterial punctureOrdered By: Jermain Archer on 12-13-2024 Assessment of wrist artery patency prior to arterial puncture Positive [facility] Assessment of wrist artery p atency prior to arterial punctureOrdered By: Jermain Archer on 12-13-2024 Arterial patency Wrist artery --pre arterial puncture Positive [facility] Atypical lymphocyte percenta geOrdered By: Jermain Archer on 12-13-2024 Atypical lymphocyte percentage 1+ % [facility] Automated lymphocyte count a s percentage of total leukocytesOrdered By: Jermain Archer on 12-13-2024 Lymphocytes/100 WBC Auto (Unsp spec) 9.5 % Low 19-41 [facility] BLOOD CULTUREon 12-13-2024 Bacteria identified Cx Nom (Bld) Normal [facility] Comment on above: Performed By: #### L [id number] ####Budget Clerk: CAROLE CID ([id number])[facility] ([facility])[address] [place] [address] Bacteria identified Cx Nom (Bld) Normal [facility] Comment on above: Performed By: #### L [id number] ####Budget Clerk: CAROLE CID ([id number])[facility] ([facility])[address] [place] [address] BLOOD GAS, VENOUSon 12-14-19 25 AMOUNT OF OXYGEN 100% Normal [facility] Comment on above: Result Comment: ANDRADE R COMMENTS:Assessment of oxygenation is best done with an arterial blood gas determination. Reference ranges for pO2, bicarbonate, and base excess are for mixed venous blood. Specimens drawn from a peripheral vein will often have higher values. Performed By: #### L AB79 ####Budget Clerk: CAROLE CID ([id number])[facility])[address] [place] [address] Base excess Calc (BldV) [Moles/Vol] 2.1 mmol/L Normal -3.0-3.0 [facility] Comment on above: Performed By: #### L AB79 ####Budget Clerk: CAROLE CID ([id number])[facility])[address] [place] [address] CO2 [Moles/Vol] 26.9 mmol/L Normal 24.0-28.0 [facility] Comment on above: Performed By: #### L AB79 ####Budget Clerk: CAROLE CID ([id number])[facility])[address] [place] [address] HCO3 (Bld) [Moles/Vol] 25.8 mmol/L Normal 23.0-27.0 [facility] Comment on above: Performed By: #### L AB79 ####Budget Clerk: CAROLE CID ([id number])[facility])[address] [place] [address] Hemoglobin (Bld) [Mass/Vol] 9.9 g/dL Normal Screen only [facility] Comment on above: Performed By: #### L AB79 ####Budget Clerk: CAROLE CID ([id number])[facility])[address] [place] [address] OXYGEN (MM HG) IN VENOUS BLOOD 37.0 mm Hg Normal [facility] Comment on above: Performed By: #### L [id number] ####Budget Clerk: CAROLE CID ([id number])[facility])[address] [place] [address] OXYGEN SATURATION (%) IN VENOUS BLOOD 70.3 % Normal [facility] Comment on above: Performed By: #### L AB79 ####Budget Clerk: CAROLE CID ([id number])[facility] ([facility])[address] [place] [address] PCO2, LEIGHTON 36.2 mm Hg Low 40.0-55.0 [facility] Comment on above: Performed By: #### L [id number] ####Budget Clerk: CAROLE CID ([id number])[facility] ([facility] [place] [address] PH VENOUS 7.470 High 7.330-7.43 0 [facility] Comment on above: Performed By: #### L AB79 ####Budget Clerk: CAROLE CID ([id number])[facility] ([facility])[address] [place] [address] SOURCE OF OXYGEN Ventilator Normal [facility] Comment on above: Performed By: #### L AB79 ####Budget Clerk: CAROLE CID ([id number])[facility] ([facility])[address] [place] [address] BUN/creatinine ratioOrdered By: Jermain Archer on 12-13-2024 Urea nitrogen/Creatinine [Mass ratio] 24.7 mg/mg High 10-20 [facility] BUN/creatinine ratio 24.7 RATIO High 10-20 [facility] Bacteria LM.HPF (Urine sed) [#/Area]Ordered By: Jermain Archer on 12-13-2024 Urine sediment bacteria count by microscopy (number/high power field) 2+ /hpf None Seen [facility] Base excess Calc (BldV) [Mol es/Vol]Ordered By: Jermain Archer on 12-13-2024 Blood base excess determination 1 mmol/L -2-2 [facility] Basic Metabolic Profile (BMP )on 12-13-2024 BUN Normal 4-19 [facility] Comment on above: Result Comment: Canc elled via OM: Order cancelled - Patient discharged Performed By: #### L 100.0100, L500.2500 ####[facility] [address] [place], [address] BUN/CRE Normal 10-20 [facility] Comment on above: Result Comment: Canc elled via OM: Order cancelled - Patient discharged Performed By: #### L 100.0100, L500.2500 ####[facility] [address], [address] Calcium Normal 7.6-11.0 [facility] Comment on above: Result Comment: Canc elled via OM: Order cancelled - Patient discharged Performed By: #### L 100.0100, L500.2500 ####[facility] [address] [place], [address] CL Normal 98-108 [facility] Comment on above: Result Comment: Canc elled via OM: Order cancelled - Patient discharged Performed By: #### L 100.0100, L500.2500 ####[facility] [address] [place], [address] CO2 Normal 21.0-32.0 [facility] Comment on above: Result Comment: Canc elled via OM: Order cancelled - Patient discharged Performed By: #### L 100.0100, L500.2500 ####[facility] [address] [place], [address] CREAT,SERUM Normal 0.70-1.20 [facility] Comment on above: Result Comment: Canc elled via OM: Order cancelled - Patient discharged Performed By: #### L 100.0100, L500.2500 ####[facility] [address] [place], [address] eGFR Normal >60 [facility] Comment on above: Result Comment: Canc elled via OM: Order cancelled - Patient discharged Performed By: #### L 100.0100, L500.2500 ####[facility] [address] [place], [address] GAP Normal 5-15 [facility] Comment on above: Result Comment: Canc elled via OM: Order cancelled - Patient discharged Performed By: #### L 100.0100, L500.2500 ####[facility] [address] [place], [address] GLU Normal 70-99 [facility] Comment on above: Result Comment: Canc elled via OM: Order cancelled - Patient discharged Performed By: #### L 100.0100, L500.2500 ####[facility] [address] [place], [address] Potassium Normal 3.3-5.1 [facility] Comment on above: Result Comment: Canc elled via OM: Order cancelled - Patient discharged Performed By: #### L 100.0100, L500.2500 ####[facility] [address] [place], [address] Basic Metabolic Profile (BMP) Normal 133-145 [facility] Comment on above: Result Comment: Canc elled via OM: Order cancelled - Patient discharged Performed By: #### L 100.0100, L500.2500 ####[facility] [address] [place], [address] Basophil percentageOrdered B y: Jermain Archer on 12-13-2024 Basophils/100 WBC (Bld) 0.1 % 0-1 [facility] Basophil percentage 0.1 % 0-1 [facility] Bilirubin Test strip Ql (U)O rdered By: Jermain Archer on 12-13-2024 Bilirubin Ql (U) 1 mg/dL High Negative [facility] Urine total bilirubin detection by test strip 1 mg/dL High Negative [facility] Bilirubin, totalOrdered By: Jermain Archer on 12-13-2024 Bilirubin [Mass/Vol] 0.33 mg/dL 0.00-1.30 [facility] Bilirubin, total 0.33 mg/dL 0.00-1.30 [facility] Blood G[facility] by [facility] 025 NIKOS TEST Positive Normal [facility] Comment on above: Performed By: #### L 9000.0800 ####[facility] [address] [place], [address] Base excess Calc (Bld) [Moles/Vol] 1 mmol/L Normal -2 to +2 [facility] Comment on above: Performed By: #### L 9000.0800 ####[facility] [address] [place], [address] Blood Gas Type ART Normal [facility] Comment on above: Performed By: #### L 9000.0800 ####[facility] [address] [place], [address] CO2 [Moles/Vol] 28 mmol/L Normal [facility] Comment on above: Performed By: #### L 9000.0800 ####[facility] [address] [place], [address] FI02 50.0 Normal [facility] Comment on above: Performed By: #### L 9000.0800 ####[facility] [address] [place], [address] HCO3 (Bld) [Moles/Vol] 26.8 mmol/L High 22-26 [facility] Comment on above: Performed By: #### L 9000.0800 ####[facility] [address] [place], [address] Mode AC Normal [facility] Comment on above: Performed By: #### L 9000.0800 ####[facility] [address] [place], [address] O2 Delivery Dev ET Tube Normal [facility] Comment on above: Performed By: #### L 9000.0800 ####[facility] [address] [place], [address] pCO2 50.1 mmHg High 35-45 [facility] Comment on above: Performed By: #### L 9000.0800 ####[facility] [address] [place], [address] PEEP 5 Normal [facility] Comment on above: Performed By: #### L 9000.0800 ####[facility] [address] [place], [address] pH (Bld) 7.34 [pH] Low 7.35-7.45 [facility] Comment on above: Performed By: #### L 9000.0800 ####[facility] [address] [place], [address] PO2 84 mmHG Normal 75-100 [facility] Comment on above: Performed By: #### L 9000.0800 ####[facility] [address] [place], [address] RR 14 Normal [facility] Comment on above: Performed By: #### L 9000.0800 ####[facility] [address] [place], [address] SITE L Radial Normal [facility] Comment on above: Performed By: #### L 9000.0800 ####[facility] [address] [place], [address] SO2 95 Normal 95-99 [facility] Comment on above: Performed By: #### L 9000.0800 ####[facility] [address] [place], [address] Vt 450.0 mL Normal [facility] Comment on above: Performed By: #### L 9000.0800 ####[facility] [address] [place], [address] Blood base excess determinat ionOrdered By: Jermain Archer on 12-13-2024 Base excess Calc (BldV) [Moles/Vol] 1 mmol/L -2-2 [facility] Blood bicarbonate measuremen tOrdered By: Jermain Archer on 12-13-2024 HCO3 (Bld) [Moles/Vol] 26.8 mmol/L High [facility] Blood bicarbonate measurement 26.8 mmol/L High [facility] Blood cultureOrdered By: Leonidas Archer on 12-13-2024 Bacteria identified Cx Nom (Bld) No growth in 5 days. [facility] Blood manual differential co mment interpretation (narrative result)Ordered By: Jermain Archer on 12-13-2024 Manual differential comment Rico (Bld) [Interp] SCANNED [facility] C-REACTIVE PROTEINon 025 CRP [Mass/Vol] 160.6 mg/L High <5.0 [facility] Comment on above: Performed By: #### L AB134, CUN197, DCJ645, LAB62, [id number], TDU262, WZY509, YOT473 ####Budget Clerk: CAROLE CID ([id number])[facility] ([facility])[address] [place] [address] CALCIUM, IONIZEDon CALCIUM IONIZED 3.50 mg/dL Low 4.30-5.20 [facility] Comment on above: Performed By: #### L AB54 ####Budget Clerk: CAROLE CID ([id number])[facility] ([facility])[address] [place] [address] PH, IONIZED CALCIUM 7.55 High 7.31-7.46 [facility] Comment on above: Performed By: #### L AB54 ####Budget Clerk: CAROLE CID ([id number])[facility])[address] [place] [address] CBC W/Diff, Automatedon 11-28 Absolute Neut Normal 2.0-7.7 [facility] Comment on above: Result Comment: Canc elled via OM: Order cancelled - Patient discharged Performed By: #### L 100.0100, L500.2500 ####[facility] [address] [place], [address] HCT Normal 37-47 [facility] Comment on above: Result Comment: Canc elled via OM: Order cancelled - Patient discharged Performed By: #### L 100.0100, L500.2500 ####[facility] [address] [place], [address] HGB Normal 12.0-15.0 [facility] Comment on above: Result Comment: Canc elled via OM: Order cancelled - Patient discharged Performed By: #### L 100.0100, L500.2500 ####[facility] [address] [place], [address] MCH Normal 27.0-32.0 [facility] Comment on above: Result Comment: Canc elled via OM: Order cancelled - Patient discharged Performed By: #### L 100.0100, L500.2500 ####[facility] [address] [place], [address] MCHC Normal 32-36 [facility] Comment on above: Result Comment: Canc elled via OM: Order cancelled - Patient discharged Performed By: #### L 100.0100, L500.2500 ####[facility] [address] [place], [address] MCV Normal 81-99 [facility] Comment on above: Result Comment: Canc elled via OM: Order cancelled - Patient discharged Performed By: #### L 100.0100, L500.2500 ####[facility] [address] [place], [address] NEUT% Normal 47-70 [facility] Comment on above: Result Comment: Canc elled via OM: Order cancelled - Patient discharged Performed By: #### L 100.0100, L500.2500 ####[facility] [address] [place], [address] PLT Normal 150-450 [facility] Comment on above: Result Comment: Canc elled via OM: Order cancelled - Patient discharged Performed By: #### L 100.0100, L500.2500 ####[facility] [address] [place], [address] RBC Normal 4.2-5.4 [facility] Comment on above: Result Comment: Canc elled via OM: Order cancelled - Patient discharged Performed By: #### L 100.0100, L500.2500 ####[facility] [address] [place], [address] RDW CV Normal 11.6-14.6 [facility] Comment on above: Result Comment: Canc elled via OM: Order cancelled - Patient discharged Performed By: #### L 100.0100, L500.2500 ####[facility] [address] [place], [address] RDW SD Normal 35.1-43.9 [facility] Comment on above: Result Comment: Canc elled via OM: Order cancelled - Patient discharged Performed By: #### L 100.0100, L500.2500 ####[facility] [address] [place], [address] WBC Normal 4.4-11.0 [facility] Comment on above: Result Comment: Canc elled via OM: Order cancelled - Patient discharged Performed By: #### L 100.0100, L500.2500 ####[facility] [address] [place], [address] ATYPICAL LYMPH 1+ Normal [facility] Comment on above: Performed By: #### L 503.7505, L501.5200, L300.3900, L300.4310, L500.4050, M200.1000, L501.4021, L503.6005, L100.0100 ####[facility] [address] [place], [address] SMEAR COMMENT SCANNED Normal [facility] Comment on above: Result Comment: NEUT ROPHILLIA PRESENTLEFT SHIFT: BANDS PRESENT 2+ Performed By: #### L 503.7505, L501.5200, L300.3900, L300.4310, L500.4050, M200.1000, L501.4021, L503.6005, L100.0100 ####[facility] [address] [place], [address] CBC WITH AUTO DIFFERENTIALon 12-13-2024 Erythrocyte distribution width (RBC) [Ratio] 15.2 % High 11.5-15.0 [facility] Comment on above: Performed By: #### L [id number], AWS8217, GSN333 ####Budget Clerk: CAROLE CID ([id number])[facility])[address] [place] [address] Hematocrit (Bld) [Volume fraction] 28.5 % Low 35.0-47.0 [facility] Comment on above: Performed By: #### Mago [id number], [id number], MEN446 ####Budget Clerk: CAROLE CID ([id number])[address] Hemoglobin (Bld) [Mass/Vol] 9.2 g/dL Low 11.7-16. 0 [facility] Comment on above: Performed By: #### L [id number], YPQ7017, QFF643 ####Budget Clerk: CAROLE CID ([id number])[facility])[address] [place] [address] MCH (RBC) [Entitic mass] 29.8 pg Normal 26.0-34.0 [facility] Comment on above: Performed By: #### L [id number], TMW2000, BNM036 ####Budget Clerk: CAROLE CID ([id number])[facility])[address] [place] [address] MCHC 32.3 % Normal 30.5-36.0 [facility] Comment on above: Performed By: #### Mago [id number], OLF7247, RFY766 ####Budget Clerk: CAROLE CID ([id number])[facility] ([facility])[address] [place] [address] MCV (RBC) [Entitic vol] 92.2 fL Normal 77.0-99.0 [facility] Comment on above: Performed By: #### Mago [id number], JLR3828, HWN285 ####Budget Clerk: CAROLE CID ([id number])[facility] ([facility])[address] [place] [address] Platelet mean volume (Bld) [Entitic vol] 9.4 fL Normal 9.0-12.7 [facility] Comment on above: Performed By: #### Mago [id number], QTK9395, KGE183 ####Budget Clerk: CAROLE CID ([id number])[facility] ([facility])[address] [place] [address] Platelets (Bld) [#/Vol] 345 10*3/uL Normal 140-440 [facility] Comment on above: Performed By: #### Mago [id number], EIO0826, BYL774 ####Budget Clerk: CAROLE CID ([id number])[facility] ([facility])[address] [place] [address] RBC (Bld) [#/Vol] 3.09 10*6/uL Low 3.80-5.20 [facility] Comment on above: Performed By: #### L [id number], KMT2002, WLB671 ####Budget Clerk: CAROLE CID ([id number])[facility] ([facility])[address] [place] [address] WBC (Bld) [#/Vol] 24.0 10*3/uL High 3.6-10.7 [facility] Comment on above: Performed By: #### Mago [id number], YUT7975, LSV936 ####Budget Clerk: CAROLE CID ([id number])[facility])[address] [place] [address] [place] CKon 12-13-2024 CK [Catalytic activity/Vol] 21 U/L Low 30-185 [facility] Comment on above: Performed By: #### L AB134, FLJ746, SQV659, LAB62, OFC18028, GJM838, QTS333, RYX575 ####Budget Clerk: CAROLE CID ([id number])[facility] ([facility])[address] [place] [address] COMPLETE URINALYSISon 2024 BACTERIA (#/HPF) IN URINE Negative Normal Negative [facility] Comment on above: Performed By: #### L AB347, LXY681 ####Budget Clerk: CAROLE CID ([id number])[facility] ([facility])[address] [place] [address] BILIRUBIN, TOTAL PRESENCE IN URINE Negative Normal Negative [facility] Comment on above: Performed By: #### L AB347, BDS583 ####Budget Clerk: CAROLE CID ([id number])[facility] ([facility])[address] [place] [address] Clarity (U) Clear Normal Clear [facility] Comment on above: Performed By: #### L AB347, ZTY996 ####Budget Clerk: CAROLE CID ([id number])[facility] ([facility])[address] [place] [address] Color (U) Yellow Normal Lt. Yellow [facility] Comment on above: Performed By: #### L AB347, CVA437 ####Budget Clerk: CAROLE CID ([id number])[facility] ([facility])[address] [place] [address] [place] GLUCOSE (MG/DL) IN URINE Normal Normal Nor mal (<70) [facility] Comment on above: Performed By: #### L AB347, TJX320 ####Budget Clerk: CAROLE CID ([id number])[facility] ([facility])[address] [place] [address] HEMOGLOBIN PRESENCE IN URINE 1.0 mg/dL Abnormal Negative [facility] Comment on above: Performed By: #### L AB347, LFW895 ####Budget Clerk: CAROLE CID ([id number])[facility])[address] [place] [address] Ketones Ql (U) Negative Normal Negative [facility] Comment on above: Performed By: #### L AB347, DAH456 ####Budget Clerk: CAROLE CID ([id number])[facility] ([facility])[address] [place] [address] LEUKOCYTE ESTERASE PRESENCE IN URINE BY TEST STRIP Negative Normal Negative [facility] Comment on above: Performed By: #### L AB347, GUP880 ####Budget Clerk: CAROLE CID ([id number])[facility])[address] [place] [address] MUCUS (#/LPF) IN URINE SEDIMENT Few Normal Negative [facility] Comment on above: Performed By: #### L AB347, JAH336 ####Budget Clerk: CAROLE CID ([id number])[facility] ([facility])[address] [place] [address] NITRITE PRESENCE IN URINE Negative Normal Negative [facility] Comment on above: Performed By: #### L AB347, FDB192 ####Budget Clerk: CAROLE CID ([id number])[facility] ([facility])[address] [place] [address] pH (U) 6.0 [pH] Normal 5.0-8.0 [facility] Comment on above: Performed By: #### L AB347, RFT542 ####Budget Clerk: CAROLE CID ([id number])[facility] ([facility])[address] [place] [address] Protein (U) [Mass/Vol] 30 mg/dL Abnormal Negative [facility] Comment on above: Performed By: #### L AB347, KNT476 ####Budget Clerk: CAROLE CID ([id number])[facility] ([facility])[address] [place] [address] [place] RBC (#/HPF) IN URINE SEDIMENT >100 Abnormal 0-2 [facility] Comment on above: Performed By: #### L AB347, SYI146 ####Budget Clerk: CAROLE CID ([id number])[facility] ([facility])[address] [place] [address] Specific gravity (U) [Rel density] >1.030 High 1.005-1.03 0 [facility] Comment on above: Performed By: #### L AB347, ZSB921 ####Budget Clerk: CAROLE CID ([id number])[facility] ([facility])[address] [place] [address] SQUAMOUS EPITHELIAL CELLS (#/HPF) IN URINE SEDIMENT 0-2 Normal 3-5 [facility] Comment on above: Performed By: #### L AB347, QEC888 ####Budget Clerk: CAROLE CID ([id number])[facility] ([facility])[address] [place] [address] UROBILINOGEN (MG/DL) IN URINE Normal Normal Normal (0-1) [facility] Comment on above: Performed By: #### L AB347, CMW990 ####Budget Clerk: CAROLE CID ([id number])[facility] ([facility])[address] [place] [address] WBC (LEUKOCYTE) (#/HPF) IN URINE SEDIMENT 11-25 Abnormal 0-5 [facility] Comment on above: Performed By: #### L AB347, ZWF432 ####Budget Clerk: CAROLE CID ([id number])[facility] ([facility])[address] [place] [address] CREATININE, SERUMon 12-14-19 Creatinine [Mass/Vol] 0.50 mg/dL Low 0.57-1.11 [facility] Comment on above: Performed By: #### L AB134, EXS447, FEE979, LAB62, [id number], OAE705, VYE834, HYE733 ####Budget Clerk: CAROLE CID ([id number])[facility] ([facility])[address] [place] [address] GLOMERULAR FILTRATION RATE ML/MIN/1.73 SQ M.PREDICTED >90.0 Normal >60.0 [facility] Comment on above: Result Comment: Calc ulation based on the Chronic Kidney Disease Epidemiology Collaboration (CKD-EPI) equation refit without adjustment for race Performed By: #### L AB134, QZP066, EDK524, LAB62, [id number], JSW027, TNO246, XQB035 ####Budget Clerk: CAROLE CID ([id number])[facility] ([facility])[address] [place] [address] CT CHEST ABDOMEN PELVIS W CO NTRASTon 12-13-2024 CT CHEST ABDOMEN PELVIS W CONTRAST Normal [facility] CT HEAD WO IV CONTRASTon CT HEAD WO IV CONTRAST Normal [facility] CTA Chest W/WO Contraston CTA Chest W/WO Contrast Normal [facility] Calcium [Mass/Vol]Ordered By : Jermain Archer on 12-13-2024 Serum or plasma calcium measurement (mass/volume) 8.2 mg/dL 7.6-11.0 [facility] Carbon dioxide, total [Moles /volume] in Central venous bloodOrdered By: Jermain Archer on 12-13-2024 CO2 [Moles/Vol] 20.4 mmol/L Low 21.0-32.0 [facility] Carbon dioxide, total [Moles/volume] in Central venous blood 20.4 mmol/L Low 21.0-32.0 [facility] Chest 1 View (Portable)on Chest 1 View (Portable) Normal [facility] Chest 1 View (Portable) Normal [facility] Chloride assayOrdered By: Juan Archer on 12-13-2024 Chloride [Moles/Vol] 106 mmol/L 98-108 [facility] Chloride assay 106 mmol/L 98-108 [facility] Clarity (U)Ordered By: Brandon Archer on 12-13-2024 Urine clarity Cloudy Clear [facility] Color (U)Ordered By: Jermain Archer on 12-13-2024 Urine color determination Brown Yellow [facility] Comprehensive Metabolic Prof ilon 12-13-2024 Albumin [Mass/Vol] 2.8 g/dL Low 3.4-4.8 [facility] Comment on above: Performed By: #### L 503.7505, L501.5200, L300.3900, L300.4310, L500.4050, M200.1000, L501.4021, L503.6005, L100.0100 ####[facility] [address] [place], [address] Albumin/Globulin [Mass ratio] 0.8 {ratio} Low 0.9-2.4 [facility] Comment on above: Performed By: #### L 503.7505, L501.5200, L300.3900, L300.4310, L500.4050, M200.1000, L501.4021, L503.6005, L100.0100 ####[facility] [address] [place], [place], [id number](033) ALK PHOS 101 U/L Normal 35-104 [facility] Comment on above: Performed By: #### L 503.7505, L501.5200, L300.3900, L300.4310, L500.4050, M200.1000, L501.4021, L503.6005, L100.0100 ####[facility] [address] [place], [place], [id number](060) ALT [Catalytic activity/Vol] 14 U/L Normal <=34 [facility] Comment on above: Performed By: #### L 503.7505, L501.5200, L300.3900, L300.4310, L500.4050, M200.1000, L501.4021, L503.6005, L100.0100 ####[facility] [address] [place], [address] AST [Catalytic activity/Vol] 33 U/L High <=31 [facility] Comment on above: Result Comment: Hemo lysis present, Results??could be affected.?? Performed By: #### L 503.7505, L501.5200, L300.3900, L300.4310, L500.4050, M200.1000, L501.4021, L503.6005, L100.0100 ####[facility] [address] [place], [address] Bilirubin [Mass/Vol] 0.33 mg/dL Normal 0.00-1.30 [facility] Comment on above: Performed By: #### L 503.7505, L501.5200, L300.3900, L300.4310, L500.4050, M200.1000, L501.4021, L503.6005, L100.0100 ####[facility] [address] [place], [address] BUN/CRE 24.7 RATIO High 10-20 [facility] Comment on above: Performed By: #### L 503.7505, L501.5200, L300.3900, L300.4310, L500.4050, M200.1000, L501.4021, L503.6005, L100.0100 ####[facility] [address] [place], [address] Calcium [Mass/Vol] 8.2 mg/dL Normal 7.6-11.0 [facility] Comment on above: Performed By: #### L 503.7505, L501.5200, L300.3900, L300.4310, L500.4050, M200.1000, L501.4021, L503.6005, L100.0100 ####[facility] [address] [place], [address] Chloride [Moles/Vol] 106 mmol/L Normal 98-108 [facility] Comment on above: Performed By: #### L 503.7505, L501.5200, L300.3900, L300.4310, L500.4050, M200.1000, L501.4021, L503.6005, L100.0100 ####[facility] [address] [place], [place], [address] CO2 [Moles/Vol] 20.4 mmol/L Low 21.0-32.0 [facility] Comment on above: Performed By: #### L 503.7505, L501.5200, L300.3900, L300.4310, L500.4050, M200.1000, L501.4021, L503.6005, L100.0100 ####[facility] [address] [place], [place], [address] Creatinine [Mass/Vol] 0.56 mg/dL Low 0.70-1.20 [facility] Comment on above: Performed By: #### L 503.7505, L501.5200, L300.3900, L300.4310, L500.4050, M200.1000, L501.4021, L503.6005, L100.0100 ####[facility] [address] [place], [place], [address] ECRCL 55.13 ml/min Normal 50-250 [facility] Comment on above: Performed By: #### L 503.7505, L501.5200, L300.3900, L300.4310, L500.4050, M200.1000, L501.4021, L503.6005, L100.0100 ####[facility] [address] [place], [address] GAP 14 Normal 5-15 [facility] Comment on above: Performed By: #### L 503.7505, L501.5200, L300.3900, L300.4310, L500.4050, M200.1000, L501.4021, L503.6005, L100.0100 ####[facility] [address] [place], [address] GFR/1.73 sq M.predicted among non-blacks MDRD (S/P/Bld) [Vol rate/Area] 94 mL/min/{1.73_m2} Normal >60 [facility] Comment on above: Result Comment: mL/m in/1.73m2 CKD-EPI Creatinine Equation (2020) Performed By: #### L 503.7505, L501.5200, L300.3900, L300.4310, L500.4050, M200.1000, L501.4021, L503.6005, L100.0100 ####[facility] [address] [place], [address] Globulin (S) [Mass/Vol] 3.3 g/dL Normal 2.2-4.2 [facility] Comment on above: Performed By: #### L 503.7505, L501.5200, L300.3900, L300.4310, L500.4050, M200.1000, L501.4021, L503.6005, L100.0100 ####[facility] [address] [place], [address] Glucose [Mass/Vol] 212 mg/dL High 70-99 [facility] Comment on above: Performed By: #### L 503.7505, L501.5200, L300.3900, L300.4310, L500.4050, M200.1000, L501.4021, L503.6005, L100.0100 ####[facility] [address] [place], [address] Potassium [Moles/Vol] 4.2 mmol/L Normal 3.3-5.1 [facility] Comment on above: Result Comment: Hemo lysis present, Results??could be affected.?? Performed By: #### L 503.7505, L501.5200, L300.3900, L300.4310, L500.4050, M200.1000, L501.4021, L503.6005, L100.0100 ####[facility] [address] [place], [address] Sodium [Moles/Vol] 140 mmol/L Normal 133-145 [facility] Comment on above: Performed By: #### L 503.7505, L501.5200, L300.3900, L300.4310, L500.4050, M200.1000, L501.4021, L503.6005, L100.0100 ####[facility] [address] [place], [address] T PROT 6.1 g/dL Normal 5.9-8.4 [facility] Comment on above: Performed By: #### L 503.7505, L501.5200, L300.3900, L300.4310, L500.4050, M200.1000, L501.4021, L503.6005, L100.0100 ####[facility] [address] [place], [address] Urea nitrogen [Mass/Vol] 14 mg/dL Normal 4-19 [facility] Comment on above: Performed By: #### L 503.7505, L501.5200, L300.3900, L300.4310, L500.4050, M200.1000, L501.4021, L503.6005, L100.0100 ####[facility] [address] [place], [address] Creatinine [Mass/Vol]Ordered By: Jermain Archer on 12-13-2024 Serum creatinine measurement (mass/volume) 0.56 mg/dL Low 0.70-1.20 [facility] Determination of fraction of inspired oxygenOrdered By: Jermain Archer on 12-13-2024 Determination of fraction of inspired oxygen 50.0 [facility] Emergency Department Summary on 12-13-2024 Emergency Department Summary Normal [facility] Eosinophil percentageOrdered By: Jermain Archer on 12-13-2024 Eosinophils/100 WBC (Bld) 0.0 % 0-5 [facility] Eosinophil percentage 0.0 % 0-5 [facility] Epithelial cells.renal LM.HP F (Urine sed) [#/Area]Ordered By: Jermain Archer on 12-13-2024 Urine sediment renal epithelial cell count by microscopy (number/high power field) 0-5 SEEN /hpf 0-5 [facility] Erythrocyte distribution wid th (RBC) [Entitic vol]Ordered By: Jermain Archer on 12-13-2024 Erythrocyte distribution width standard deviation 54.1 fl High 35.1-43.9 [facility] Erythrocyte distribution wid th (RBC) [Ratio]Ordered By: Jermain Archer on 12-13-2024 Erythrocyte distribution width ratio 15.3 % High 11.6-14.6 [facility] Erythrocyte distribution wid th ratioOrdered By: Jermain Archer on 12-13-2024 Erythrocyte distribution width (RBC) [Ratio] 15.3 % High 11.6-14.6 [facility] Erythrocyte distribution wid th standard deviationOrdered By: Jermain Archer on 12-13-2024 Erythrocyte distribution width (RBC) [Ratio] 54.1 fl High 35.1-43.9 [facility] Estimation of creatinine mary aranceOrdered By: Jermain Archer on 12-13-2024 Estimation of creatinine clearance 55.13 ml/min 50-250 [facility] GFR/1.73 sq M.predicted hallie g non-blacks MDRD (S/P/Bld) [Vol rate/Area]Ordered By: Jermain Archer on 12-13-2024 Glomerular filtration rate (GFR) estimation/1.73 sq m using serum, plasma, or whole b 94 >60 [facility] Glomerular filtration rate ( GFR) estimation/1.73 sq m using serum, plasma, or whole bOrdered By: Jermain Archer on 12-13-2024 GFR/1.73 sq M.predicted among non-blacks MDRD (S/P/Bld) [Vol rate/Area] 94 mL/min/{1.73_m2} >60 [facility] Glucose Ql (U)Ordered By: Juan Archer on 12-13-2024 Urine glucose detection 50 mg/dl High Normal [facility] Glucose [Mass/Vol]Ordered By : Jermain Archer on 12-13-2024 Serum glucose measurement (mass/volume) 212 mg/dL High 70-99 [facility] Hematocrit Auto (Bld) [Volum e fraction]Ordered By: Jermain Archer on 12-13-2024 Hematocrit (Bld) [Volume fraction] 35.4 % Low 37-47 [facility] Automated blood hematocrit (percentage) 35.4 % Low 37-47 [facility] Hemoglobin measurementOrdere d By: Jermain Archer on 12-13-2024 Hemoglobin (Bld) [Mass/Vol] 10.9 g/dL Low 12.0-15. 0 [facility] Hemoglobin measurement 10.9 g/dL Low 12.0-15.0 [facility] Immature granulocytes/100 WB C Auto (Bld)Ordered By: Jermain Arhcer on 12-13-2024 Immature granulocytes/100 WBC (Bld) 3.300 % High 0.0-0.9 [facility] Automated immature granulocyte percentage 3.300 % High 0.0-0.9 [facility] International normalized rat io (INR) calculationOrdered By: Jermain Archer on 12-13-2024 International normalized ratio (INR) calculation 1.4 [facility] Ketones Test strip Ql (U)Ord ered By: Jermain Archer on 12-13-2024 Ketones Ql (U) 5 mg/dl High Negative [facility] Urine ketones detection by test strip 5 mg/dl High Negative [facility] L499.0042on 12-13-2024 Trop T High Sen 54 ng/L Invalid Interpretation Code <=14 [facility] Comment on above: Result Comment: Crit ical Result(s) Called at 0723: by: KESHA HANCOCK??Results read back by same. Performed By: #### L 499.0042 ####[facility] [address] [place], [address] L499.0043on 12-13-2024 Trop T High Sen 42 ng/L High <=14 [facility] Comment on above: Performed By: #### L 499.0043 ####[facility] [address] [place], [address] L501.4021on 12-13-2024 Trop T High Sen 27 ng/L High <=14 [facility] Comment on above: Performed By: #### L 503.7505, L501.5200, L300.3900, L300.4310, L500.4050, M200.1000, L501.4021, L503.6005, L100.0100 ####[facility] [address] [place], [address] L503.7505on 12-13-2024 Natriuretic peptide B (Bld) [Mass/Vol] 789 pg/mL Normal <=1800 [facility] Comment on above: Result Comment: Hear t Failure Unlikely: < 300 pg/mLHeart Failure Likely< 50 Years: > 450 pg/mL50-75 Years: > 900 pg/mL>75 Years: > 1800 pg/mL Performed By: #### L 503.7505, L501.5200, L300.3900, L300.4310, L500.4050, M200.1000, L501.4021, L503.6005, L100.0100 ####[facility] [address] [place], [place], [id number] LACTIC ACID WITH REFLEXon Lactate [Moles/Vol] 1.4 mmol/L Normal 0.5-2.2 [facility] Comment on above: Performed By: #### L [id number] ####Budget Clerk: CAROLE CID ([id number])[facility])[address] [place] [address] LEGIONELLA AND STREPTOCOCCUS URINE ANTIGENon 12-13-2024 LEGIONELLA AND STREPTOCOCCUS URINE ANTIGEN Normal [facility] Comment on above: Performed By: #### L [id number] ####Budget Clerk: CAROLE CID ([id number])[facility] ([facility])[address] Lactic Acidon 12-13-2024 Lactate [Moles/Vol] 3.7 mmol/L Invalid Interpretation Code 0.0-2.0 [facility] Comment on above: Order Comment: Y Result Comment: Crit ical Result(s) Called at: 0440 by: KESHA HIDALGO??Results read back by same. Performed By: #### L 503.7505, L501.5200, L300.3900, L300.4310, L500.4050, M200.1000, L501.4021, L503.6005, L100.0100 ####[facility] [address] [place], [address] Lactic acid measurementOrder ed By: Jermain Archer on 12-13-2024 Lactic acid measurement 3.7 mmol/L High 0.0-2.0 [facility] Leukocyte esterase Test stri p Ql (U)Ordered By: Jermain Archer on 12-13-2024 Urine leukocyte esterase detection by dipstick 100 /ul High Negative [facility] Lymphocytes Auto (Unsp spec) [#/Vol]Ordered By: Jermain Archer on 12-13-2024 Absolute lymphocyte count 2.39 X10^3/uL 0.83-4. 51 [facility] Lymphocytes/100 WBC Auto (Un sp spec)Ordered By: Jermain Archer on 12-13-2024 Automated lymphocyte count as percentage of total leukocytes 9.5 % Low 19-41 [facility] MAGNESIUMon 12-13-2024 Magnesium [Mass/Vol] 1.5 mg/dL Low 1.6-2.6 [facility] Comment on above: Result Comment: ORDE R COMMENTS:Higher values can be expected in females during menses. Performed By: #### L [id number], [id number], AXO337, LAB62, [id number], GEX264, CXY709, [id number] ####Budget Clerk: CAROLE CID ([id number])[facility] ([facility])[address] [place] [address] MANUAL DIFFERENTIAL (CELLAVI SANDOR)on 12-13-2024 BAND NEUTROPHILS TOTAL PER COUNTED LEUKOCYTES BY MANUAL COUNT 8 Normal [facility] Comment on above: Performed By: #### L [id number], [id number], [id number] ####Budget Clerk: CAROLE CID ([id number])[facility] ([facility])[address] [place] [address] BANDS (10*3/UL) IN BLOOD-CELLAVISION 1.9 10*3/uL High <=0.0 [facility] Comment on above: Performed By: #### Mago [id number], [id number], [id number] ####Budget Clerk: CAROLE CID ([id number])[facility] ([facility])[address] [place] [address] BASOPHILS TOTAL PER COUNTED LEUKOCYTES BY MANUAL COUNT [facility] Comment on above: Performed By: #### Mago [id number], [id number], [id number] ####Budget Clerk: CAROLE CID ([id number])[facility] ([facility])[address] [place] [address] BLASTS TOTAL PER COUNTED LEUKOCYTES BY MANUAL COUNT Normal [facility] Comment on above: Performed By: #### Mago [id number], [id number], [id number] ####Budget Clerk: CAROLE CID ([id number])[facility] ([facility])[address] [place] [address] EOSINOPHILS TOTAL PER COUNTED LEUKOCYTES BY MANUAL COUNT Normal [facility] Comment on above: Performed By: #### Mago [id number], [id number], [id number] ####Budget Clerk: CAROLE CID ([id number])[facility] ([facility])[address] [place] [address] [place] HYPOCHROMIA (PRESENCE) IN BLOOD BY LIGHT MICROSCOPY Slight Abnormal (none) [facility] Comment on above: Performed By: #### L [id number], [id number], [id number] ####Budget Clerk: CAROLE CID ([id number])[facility] ([facility])[address] [place] [address] [place] LYMPHOCYTES (10*3/UL) IN BLOOD-CELLAVISION 2.2 10*3/uL Normal 1.0-4.3 [facility] Comment on above: Performed By: #### Mago [id number], [id number], [id number] ####Budget Clerk: CAROLE CID ([id number])[facility] ([facility])[address] [place] [address] [place] LYMPHOCYTES TOTAL PER COUNTED LEUKOCYTES BY MANUAL COUNT 9 Normal [facility] Comment on above: Performed By: #### Mago [id number], [id number], [id number] ####Budget Clerk: CAROLE CID ([id number])[facility] ([facility])[address] [place] [address] [place] LYMPHOCYTES/100 LEUKOCYTES IN BLOOD-CELLAVISION 9 % Low 15-45 [facility] Comment on above: Performed By: #### Mago [id number], [id number], [id number] ####Budget Clerk: CAROLE CID ([id number])[facility] ([facility])[address] [place] [address] [place] METAMYELOCYTES TOTAL PER COUNTED LEUKOCYTES BY MANUAL COUNT Normal [facility] Comment on above: Performed By: #### Mago [id number], [id number], [id number] ####Budget Clerk: CAROLE CID ([id number])[facility] ([facility])[address] [place] [address] [place] MONOCYTES (10*3/UL) IN BLOOD-CELLAVISION 1.4 10*3/uL High 0.0-0.9 [facility] Comment on above: Performed By: #### L [id number], [id number], [id number] ####Budget Clerk: CAROLE CID ([id number])[facility] ([facility])[address] [place] [address] [place] MONOCYTES TOTAL PER COUNTED LEUKOCYTES BY MANUAL COUNT 6 Normal [facility] Comment on above: Performed By: #### L [id number], [id number], [id number] ####Budget Clerk: CAROLE CID ([id number])[facility] ([facility])[address] [place] [address] [place] MONOCYTES/100 LEUKOCYTES IN BLOOD-SARI 6 % Normal 5-13 [facility] Comment on above: Performed By: #### L [id number], [id number], [id number] ####Budget Clerk: CAROLE CID ([id number])[facility] ([facility])[address] [place] [address] [place] MYELOCYTES COUNTED BY MANUAL COUNT Normal [facility] Comment on above: Performed By: #### L [id number], [id number], [id number] ####Budget Clerk: CAROLE CID ([id number])[facility] ([facility])[address] [place] [address] [place] NEUTROPHILS BAND FORM/100 LEUKOCYTES IN BLOOD-CELLAVISI 8 % High <=0 [facility] Comment on above: Performed By: #### L [id number], [id number], [id number] ####Budget Clerk: CAROLE CID ([id number])[facility] ([facility])[address] [place] [address] [place] NEUTROPHILS TOTAL PER COUNTED LEUKOCYTES BY MANUAL COUNT 76 Normal [facility] Comment on above: Performed By: #### L [id number], [id number], [id number] ####Budget Clerk: CAROLE CID ([id number])[facility] ([facility])[address] [place] [address] [place] OVALOCYTES PRESENCE IN BLOOD BY LIGHT MICROSCOPY Slight Abnormal (none) [facility] Comment on above: Performed By: #### L [id number], [id number], [id number] ####Budget Clerk: CAROLE CID ([id number])[facility] ([facility])[address] [place] [address] [place] POIKILOCYTOSIS (PRESENCE) IN BLOOD BY LIGHT MICROSCOPY Slight Abnormal (none) [facility] Comment on above: Performed By: #### L [id number], [id number], [id number] ####Budget Clerk: CAROLE CID ([id number])[facility] ([facility])[address] [place] [address] [place] PROMYELOCYTES TOTAL PER COUNTED LEUKOCYTES BY MANUAL COUNT Normal [facility] Comment on above: Performed By: #### L [id number], [id number], [id number] ####Budget Clerk: CAROLE CID ([id number])[facility] ([facility])[address] [place] [address] RBC MORPHOLOGY IN BLOOD abnormal Normal [facility] Comment on above: Performed By: #### Mago [id number], [id number], [id number] ####Budget Clerk: CAROLE CID ([id number])[facility])[address] [place] [address] SEGMENTED NEUTROPHILS (10*3/UL) IN BLOOD-CELLAVISION 20.4 10*3/uL High 1.8-7.5 [facility] Comment on above: Performed By: #### Mago [id number], [id number], [id number] ####Budget Clerk: CAROLE CID ([id number])[facility])[address] [place] [address] SEGMENTED NEUTROPHILS/100 LEUKOCYTES-CE 77 % Normal 38-82 [facility] Comment on above: Performed By: #### Mago [id number], [id number], [id number] ####Budget Clerk: CAROLE CID ([id number])[facility])[address] [place] [address] UNCLASSIFIED CELLS TOTAL PER COUNTED LEUKOCYTES BY MANUAL COUNT [facility] Comment on above: Performed By: #### Mago [id number], [id number], [id number] ####Budget Clerk: CAROLE CID ([id number])[facility])[address] [place] [address] VARIANT LYMPHOCYTES TOTAL PER COUNTED LEUKOCYTES BY MANUAL COUNT [facility] Comment on above: Performed By: #### Mago [id number], [id number], [id number] ####Budget Clerk: CAROLE CID ([id number])[facility])[address] [place] [address] MCV (RBC) [Entitic vol]Order ed By: Jermain Archer on 12-13-2024 MCV (mean corpuscular volume) determination 97.3 fL 81-99 [facility] MCV (mean corpuscular volume ) determinationOrdered By: Jermain Archer on 12-13-2024 MCV (RBC) [Entitic vol] 97.3 fL 81-99 [facility] MRSA BY PCRon 12-13-2024 MRSA BY PCR Normal [facility] Comment on above: Performed By: #### L [id number] ####Budget Clerk: CAROLE CID ([id number])[facility] ([address] Magnesiumon 12-13-2024 Magnesium [Mass/Vol] 1.8 mg/dL Normal 1.5-2.2 [facility] Comment on above: Performed By: #### L 503.7505, L501.5200, L300.3900, L300.4310, L500.4050, M200.1000, L501.4021, L503.6005, L100.0100 ####[facility] [address] [place], [address] Magnesium (Unsp spec) [Mass/ Vol]Ordered By: Jermain Archer on 12-13-2024 Magnesium measurement (mass/volume) 1.8 mg/dL 1.5-2.2 [facility] Magnesium measurement (mass/ volume)Ordered By: Jermain Archer on 12-13-2024 Magnesium (Unsp spec) [Mass/Vol] 1.8 mg/dL 1.5-2.2 [facility] Manual differential comment Rico (Bld) [Interp]Ordered By: Jermain Archer on 12-13-2024 Blood manual differential comment interpretation (narrative result) SCANNED [facility] Mean corpuscular hemoglobin (MCH) determinationOrdered By: Jermain Archer on 12-13-2024 MCH (RBC) [Entitic mass] 29.9 pg 27.0-32.0 [facility] Mean corpuscular hemoglobin (MCH) determination 29.9 pg 27.0-32.0 [facility] Mean corpuscular hemoglobin concentration (MCHC) determinationOrdered By: Jermain Archer on 12-13-2024 Mean corpuscular hemoglobin concentration (MCHC) determination 30.8 g/dL Low 32-36 [facility] Mean platelet volume determi nationOrdered By: Jermain Archer on 12-13-2024 Mean platelet volume determination 10.3 fl 6.2-12.0 [facility] Measurement, pHOrdered By: Fany Archer on 12-13-2024 pH (Unsp spec) 7.34 [pH] Low 7.35-7.45 [facility] Microscopic analysis of urin e for red blood cells (RBC)Ordered By: Jermain Archer on 12-13-2024 Microscopic analysis of urine for red blood cells (RBC) > 100 SEEN /hpf 0-5 [facility] Monocyte percentageOrdered B y: Jermain Archer on 12-13-2024 Monocytes/100 WBC (Bld) 5.9 % 0-10 [facility] Monocyte percentage 5.9 % 0-10 [facility] Mucus LM Ql (Urine sed)Order ed By: Jermain Archer on 12-13-2024 Mucus Ql (Urine sed) 0 SEEN /hpf [facility] Neutrophil percentageOrdered By: Jermain Archer on 12-13-2024 Neutrophils/100 WBC (Bld) 81.2 % High 47-70 [facility] Neutrophil percentage 81.2 % High 47-70 [facility] Nitrite Test strip Ql (U)Ord ered By: Jermain Archer on 12-13-2024 Nitrite Ql (U) Positive High Negative [facility] Urine nitrite test by dipstick Positive High Negative [facility] No Panel InformationOrdered By: Jermain Archer on 12-13-2024 ART [facility] L Radial [facility] AC [facility] ET Tube [facility] 450.0 mL [facility] 14 [facility] 5 [facility] 27 ng/L High <14 [facility] 33 U/L High <32 [facility] 789 pg/mL <1800 [facility] Nucleated red blood cell per centageOrdered By: Jermain Archer on 12-13-2024 Nucleated red blood cell percentage 0 % 0-5 [facility] Oxygen saturation measuremen tOrdered By: Jermain Archer on 12-13-2024 Oxygen saturation measurement 95 % 95-99 [facility] PHOSPHORUSon 12-13-2024 Phosphate [Mass/Vol] 2.3 mg/dL Normal 2.3-4.7 [facility] Comment on above: Performed By: #### L [id number], [id number], ZIG513, LAB62, [id number], [id number], XLB879, FVZ817 ####Budget Clerk: CAROLE CID ([id number])[facility] ([facility] [place] [address] PROCALCITONIN TESTon 025 PROCALCITONIN 4.24 ng/mL High <0.07 [facility] Comment on above: Result Comment: ANDRADE Rosario COMMENTS:PCT <0.50 = Low risk of severe sepsis and/or septic shock.PCT >2.00 = High risk of severe sepsis and/or septic shock. Performed By: #### L AB134, [id number], [id number], LAB62, [id number], FLB304, HOK167, [id number] ####Budget Clerk: CAROLE CID ([id number])[facility] ([facility])[address] [place] [address] Partial Thromboplast Timeon 12-13-2024 aPTT Coag (Bld) [Time] 28.3 s Normal 24.1-36.2 [facility] Comment on above: Performed By: #### L 503.7505, L501.5200, L300.3900, L300.4310, L500.4050, M200.1000, L501.4021, L503.6005, L100.0100 ####[facility] [address] [place], [address] Partial pressure of carbon d ioxide measurementOrdered By: Jermain Archer on 12-13-2024 Partial pressure of carbon dioxide measurement 50.1 mmHg High 35-45 [facility] Partial pressure of oxygen m easurementOrdered By: Jermain Archer on 12-13-2024 Partial pressure of oxygen measurement 84 mmHG 75-100 [facility] Platelet countOrdered By: Juan Archer on 12-13-2024 Platelets (Bld) [#/Vol] 409 10*3/uL 150-450 [facility] Platelet count 409 K/mm3 150-450 [facility] Potassium (Unsp spec) [Mass/ Vol]Ordered By: Jermain Archer on 12-13-2024 Potassium measurement (mass/volume) 4.2 mmol/L 3.3-5.1 [facility] Potassium measurement (mass/ volume)Ordered By: Jermain Archer on 12-13-2024 Potassium (Unsp spec) [Mass/Vol] 4.2 mmol/L 3.3-5.1 [facility] Progress Noteon 12-13-2024 Progress Note Normal [facility] Progress Note Normal [facility] Protein Test strip Ql (U)Ord ered By: Jermain Archer on 12-13-2024 Protein Ql (U) 500 mg/dl High Negative [facility] Urine protein assay by test strip, semi-quantitative 500 mg/dl High Negative [facility] Prothrombin Time w/INRon INR Coag (PPP) [Relative time] 1.4 {INR} Normal [facility] Comment on above: Performed By: #### L 503.7505, L501.5200, L300.3900, L300.4310, L500.4050, M200.1000, L501.4021, L503.6005, L100.0100 ####[facility] [address] [place], [address] PT Coag (PPP) [Time] 17.1 s High 11.7-14.9 [facility] Comment on above: Performed By: #### L 503.7505, L501.5200, L300.3900, L300.4310, L500.4050, M200.1000, L501.4021, L503.6005, L100.0100 ####[facility] [address] [place], [place], [id number] Prothrombin timeOrdered By: Jermain Archer on 12-13-2024 PT Coag (PPP) [Time] 17.1 s High 11.7-14.9 [facility] Prothrombin time 17.1 SECONDS High 11.7-14.9 [facility] RBC Auto (Bld) [#/Vol]Ordere d By: Jermain Archer on 12-13-2024 RBC (Bld) [#/Vol] 3.64 10*6/uL Low 4.2-5.4 [facility] Automated blood erythrocyte count 3.64 M/mm3 Low 4.2-5.4 [facility] RESPIRATORY PATHOGENS PANEL BY PCRon 12-13-2024 RESPIRATORY PATHOGENS PANEL BY PCR Normal [facility] Comment on above: Performed By: #### L [id number] ####Budget Clerk: CAROLE CID ([id number])[facility] ([facility])[address] [place] [address] SEDIMENTATION RATE, AUTOMATE Don 12-13-2024 SEDIMENTATION RATE, ERYTHROCYTE 39 mm/hr High 0-20 [facility] Comment on above: Performed By: #### L [id number], [id number], [id number] ####Budget Clerk: CAROLE CID ([id number])[facility] ([facility])[address] [place] [address] Serum creatinine measurement (mass/volume)Ordered By: Jermain Archer on 12-13-2024 Creatinine [Mass/Vol] 0.56 mg/dL Low 0.70-1.20 [facility] Serum globulin measurementOr dered By: Jermain Archer on 12-13-2024 Globulin (S) [Mass/Vol] 3.3 g/dL 2.2-4.2 [facility] Serum globulin measurement 3.3 g/dL 2.2-4.2 [facility] Serum glucose measurement (m ass/volume)Ordered By: Jermain Archer on 12-13-2024 Glucose [Mass/Vol] 212 mg/dL High 70-99 [facility] Serum or plasma alanine phillips otransferase (ALT) measurementOrdered By: Jermain Archer on 12-13-2024 ALT [Catalytic activity/Vol] 14 U/L <35 [facility] Serum or plasma albumin abhinav urement (mass/volume)Ordered By: Jermain Archer on 12-13-2024 Albumin [Mass/Vol] 2.8 g/dL Low 3.4-4.8 [facility] Serum or plasma albumin/glob ulin mass ratioOrdered By: Jermain Archer on 12-13-2024 Albumin/Globulin [Mass ratio] 0.8 {ratio} Low 0.9-2.4 [facility] Serum or plasma alkaline jose sphatase measurementOrdered By: Jermain Archer on 12-13-2024 ALP [Catalytic activity/Vol] 101 U/L 35-104 [facility] Serum or plasma calcium abhinav urement (mass/volume)Ordered By: Jermain Archer on 12-13-2024 Calcium [Mass/Vol] 8.2 mg/dL 7.6-11.0 [facility] Serum or plasma urea nitroge n measurement (mass/volume)Ordered By: Jermain Archer on 12-13-2024 Urea nitrogen [Mass/Vol] 14 mg/dL 4-19 [facility] Sodium levelOrdered By: Eliceo Archer on 12-13-2024 Sodium [Moles/Vol] 140 mmol/L 133-145 [facility] Sodium level 140 mmol/L 133-145 [facility] Specific gravity (U) [Rel de nsity]Ordered By: Jermain Archer on 12-13-2024 Urine specific gravity measurement 1.025 1.002-1.03 0 [facility] Squamous epithelial cells de tection in urine sediment by light microscopyOrdered By: Jermain Archer on 12-13-2024 Epithelial cells.squamous LM Ql (Urine sed) 0 SEEN /hpf 5-10 [facility] Squamous epithelial cells detection in urine sediment by light microscopy 0 SEEN /hpf [facility] THYROID STIMULATING HORMONEo n 12-13-2024 THYROID STIMULATING HORMONE 0.68 uIU/mL Normal 0.35-4. 94 [facility] Comment on above: Performed By: #### L [id number], [id number], [id number], LAB62, [id number], [id number], XGW100, [id number] ####Budget Clerk: CAROLE CID ([id number])[facility] ([address] TRIGLYCERIDESon 12-13-2024 Triglyceride [Mass/Vol] 102 mg/dL Normal <150 [facility] Comment on above: Performed By: #### L AB134, DPS412, SAP425, LAB62, [id number], SLE323, PBF120, ZGM793 ####Budget Clerk: CAROLE CID ([id number])[facility])[address] [place] [address] Total carbon dioxide measure mentOrdered By: Jermain Archer on 12-13-2024 CO2 [Moles/Vol] 28 mmol/L [facility] Total carbon dioxide measurement 28 mmol/L [facility] Total proteinOrdered By: Leonidas Archer on 12-13-2024 Protein [Mass/Vol] 6.1 g/dL 5.9-8.4 [facility] Total protein 6.1 g/dL 5.9-8.4 [facility] Troponin T.cardiac High sens itivity method [Mass/Vol]Ordered By: Jermain Archer on 12-13-2024 Troponin T.cardiac [Mass/volume] in Serum or Plasma by High sensitivity method 42 ng/L High <14 [facility] Troponin T.cardiac [Mass/volume] in Serum or Plasma by High sensitivity method 54 ng/L High <14 [facility] Troponin T.cardiac [Mass/vol ume] in Serum or Plasma by High sensitivity methodOrdered By: Jermain Archer on 12-13-2024 Troponin T.cardiac High sensitivity method [Mass/Vol] 42 ng/L High <14 [facility] Troponin T.cardiac High sensitivity method [Mass/Vol] 54 ng/L High <14 [facility] URINE CULTUREon 12-13-2024 Bacteria identified Cx Nom (U) Normal [facility] Comment on above: Performed By: #### L AB347, TWF114 ####Budget Clerk: CAROLE CID ([id number])[facility] ([facility])[address] [place] [address] Urea nitrogen [Mass/Vol]Orde red By: Jermain Archer on 12-13-2024 Serum or plasma urea nitrogen measurement (mass/volume) 14 mg/dL 4-19 [facility] Urinalysis, Completeon 12-13 BACTERIA 2+ /hpf Normal None Seen [facility] Comment on above: Order Comment: COLOR OF URINE MAY AFFECT DIPSTICK RESULTS.SHAREHOLDER TO SPECIFY Performed By: #### L 400.0001, M100.2200 ####[facility] [address] [place], [address] EPI,RENAL 0-5 SEEN Normal 0-5 [facility] Comment on above: Order Comment: COLOR OF URINE MAY AFFECT DIPSTICK RESULTS.SHAREHOLDER TO SPECIFY Performed By: #### L 400.0001, M100.2200 ####[facility] [address] [place], [address] EPI,SQUAMOUS 0 SEEN Normal 5-10 [facility] Comment on above: Order Comment: COLOR OF URINE MAY AFFECT DIPSTICK RESULTS.SHAREHOLDER TO SPECIFY Performed By: #### L 400.0001, M100.2200 ####[facility] [address] [place], [address] RBC > 100 SEEN Normal 0-5 [facility] Comment on above: Order Comment: COLOR OF URINE MAY AFFECT DIPSTICK RESULTS.SHAREHOLDER TO SPECIFY Performed By: #### L 400.0001, M100.2200 ####[facility] [address] [place], [address] WBC 5-10 SEEN Normal 0-5 [facility] Comment on above: Order Comment: COLOR OF URINE MAY AFFECT DIPSTICK RESULTS.SHAREHOLDER TO SPECIFY Performed By: #### L 400.0001, M100.2200 ####[facility] [address] [place], [address] Mucus Ql (Urine sed) 0 SEEN Normal [facility] Comment on above: Order Comment: COLOR OF URINE MAY AFFECT DIPSTICK RESULTS.SHAREHOLDER TO SPECIFY Performed By: #### L 400.0001, M100.2200 ####[facility] [address] [place], [address] Urine blood detectionOrdered By: Jermain Archer on 12-13-2024 Urine blood detection 250 /ul High Negative [facility] Urine clarityOrdered By: Leonidas Archer on 12-13-2024 Clarity (U) Cloudy Clear [facility] Urine color determinationOrd ered By: Jermain Archer on 12-13-2024 Color (U) Brown Yellow [facility] Urine cultureOrdered By: Leonidas Archer on 12-13-2024 Bacteria identified Cx Nom (U) Culture exhibits no growth. [facility] Urine glucose detectionOrder ed By: Jermain Archer on 12-13-2024 Glucose Ql (U) 50 mg/dl High Normal [facility] Urine leukocyte esterase det ection by dipstickOrdered By: Jermain Archer on 12-13-2024 Leukocyte esterase Test strip Ql (U) 100 /ul High Negative [facility] Urine pHOrdered By: Jermain montiel on 12-13-2024 pH (U) 5.0 [pH] 5.0 - 8.0 [facility] Urine sediment bacteria coun t by microscopy (number/high power field)Ordered By: Jermain Archer on 12-13-2024 Bacteria LM.HPF (Urine sed) [#/Area] 2 /[HPF] None Seen [facility] Urine sediment renal epithel ial cell count by microscopy (number/high power field)Ordered By: Jermain Archer on 12-13-2024 Epithelial cells.renal LM.HPF (Urine sed) [#/Area] 0 /[HPF] 0-5 [facility] Urine specific gravity measu rementOrdered By: Jermain Archer on 12-13-2024 Specific gravity (U) [Rel density] 1.025 1.002-1.03 0 [facility] Urine urobilinogen measureme ntOrdered By: Jermain Archer on 12-13-2024 Urobilinogen Ql (U) 4 mg/dl High Normal [facility] Urobilinogen Ql (U)Ordered B y: Jermain Archer on 12-13-2024 Urine urobilinogen measurement 4 mg/dl High Normal [facility] White blood cell (WBC) count Ordered By: Jermain Archer on 12-13-2024 WBC (Bld) [#/Vol] 25.1 10*3/uL High 4.4-11.0 [facility] White blood cell (WBC) count 25.1 K/mm3 High 4.4-11.0 [facility] White blood cell countOrdere d By: Jermain Archer on 12-13-2024 White blood cell count 5-10 SEEN /hpf 0-5 [facility] White blood cell count 5-10 SEEN /hpf 0-5 [facility] XR ABDOMEN 1 VIEWon 12-14-19 XR ABDOMEN 1 VIEW Normal [facility] XR CHEST 1 VIEWon 12-13-2024 XR CHEST 1 VIEW Normal [facility] aPTT Coag (PPP) [Time]Ordere d By: Jermain Archer on 12-13-2024 Activated partial thromboplastin time (aPTT) in platelet poor plasma by coagulation a 28.3 Seconds 24.1-36.2 [facility] pH (U)Ordered By: Jermain ojeda on 12-13-2024 Urine pH 5.0 5.0 - 8.0 [facility] pH (Unsp spec)Ordered By: Juan Archer on 12-13-2024 Measurement, pH 7.34 Low 7.35-7.45 [facility] Basic Metabolic Profile (BMP )on 12-12-2024 BUN Normal 4-19 [facility] Comment on above: Result Comment: Canc elled via OM: Order cancelled - Patient discharged Performed By: #### L 100.0100, L500.2500 ####[facility] [address] [place], [address] BUN/CRE Normal 10-20 [facility] Comment on above: Result Comment: Canc elled via OM: Order cancelled - Patient discharged Performed By: #### L 100.0100, L500.2500 ####[facility] [address] [place], [address] Calcium Normal 7.6-11.0 [facility] Comment on above: Result Comment: Canc elled via OM: Order cancelled - Patient discharged Performed By: #### L 100.0100, L500.2500 ####[facility] [address] [place], [address] CL Normal 98-108 [facility] Comment on above: Result Comment: Canc elled via OM: Order cancelled - Patient discharged Performed By: #### L 100.0100, L500.2500 ####[facility] [address] [place], [address] CO2 Normal 21.0-32.0 [facility] Comment on above: Result Comment: Canc elled via OM: Order cancelled - Patient discharged Performed By: #### L 100.0100, L500.2500 ####[facility] [address] [place], [address] CREAT,SERUM Normal 0.70-1.20 [facility] Comment on above: Result Comment: Canc elled via OM: Order cancelled - Patient discharged Performed By: #### L 100.0100, L500.2500 ####[facility] [address] [place], [address] eGFR Normal >60 [facility] Comment on above: Result Comment: Canc elled via OM: Order cancelled - Patient discharged Performed By: #### L 100.0100, L500.2500 ####[facility] [address] [place], [address] GAP Normal 5-15 [facility] Comment on above: Result Comment: Canc elled via OM: Order cancelled - Patient discharged Performed By: #### L 100.0100, L500.2500 ####[facility] [address] [place], [address] GLU Normal 70-99 [facility] Comment on above: Result Comment: Canc elled via OM: Order cancelled - Patient discharged Performed By: #### L 100.0100, L500.2500 ####[facility] [address] [place], [address] Potassium Normal 3.3-5.1 [facility] Comment on above: Result Comment: Canc elled via OM: Order cancelled - Patient discharged Performed By: #### L 100.0100, L500.2500 ####[facility] [address] [place], [address] Basic Metabolic Profile (BMP) Normal 133-145 [facility] Comment on above: Result Comment: Canc elled via OM: Order cancelled - Patient discharged Performed By: #### L 100.0100, L500.2500 ####[facility] [address] [place], [address] CBC W/Diff, Automatedon 03-1 Absolute Neut Normal 2.0-7.7 [facility] Comment on above: Result Comment: Canc elled via OM: Order cancelled - Patient discharged Performed By: #### L 100.0100, L500.2500 ####[facility] [address] [place], [address] HCT Normal 37-47 [facility] Comment on above: Result Comment: Canc elled via OM: Order cancelled - Patient discharged Performed By: #### L 100.0100, L500.2500 ####[facility] [address] [place], [address] HGB Normal 12.0-15.0 [facility] Comment on above: Result Comment: Canc elled via OM: Order cancelled - Patient discharged Performed By: #### L 100.0100, L500.2500 ####[facility] [address] [place], [address] MCH Normal 27.0-32.0 [facility] Comment on above: Result Comment: Canc elled via OM: Order cancelled - Patient discharged Performed By: #### L 100.0100, L500.2500 ####[facility] [address] [place], [address] MCHC Normal 32-36 [facility] Comment on above: Result Comment: Canc elled via OM: Order cancelled - Patient discharged Performed By: #### L 100.0100, L500.2500 ####[facility] [address] [place], [address] MCV Normal 81-99 [facility] Comment on above: Result Comment: Canc elled via OM: Order cancelled - Patient discharged Performed By: #### L 100.0100, L500.2500 ####[facility] [address] [place], [address] NEUT% Normal 47-70 [facility] Comment on above: Result Comment: Canc elled via OM: Order cancelled - Patient discharged Performed By: #### L 100.0100, L500.2500 ####[facility] [address] [place], [address] PLT Normal 150-450 [facility] Comment on above: Result Comment: Canc elled via OM: Order cancelled - Patient discharged Performed By: #### L 100.0100, L500.2500 ####[facility] [address] [place], [address] RBC Normal 4.2-5.4 [facility] Comment on above: Result Comment: Canc elled via OM: Order cancelled - Patient discharged Performed By: #### L 100.0100, L500.2500 ####[facility] [address] [place], [address] RDW CV Normal 11.6-14.6 [facility] Comment on above: Result Comment: Canc elled via OM: Order cancelled - Patient discharged Performed By: #### L 100.0100, L500.2500 ####[facility] [address] [place], [address] RDW SD Normal 35.1-43.9 [facility] Comment on above: Result Comment: Canc elled via OM: Order cancelled - Patient discharged Performed By: #### L 100.0100, L500.2500 ####[facility] [address] [place], [address] WBC Normal 4.4-11.0 [facility] Comment on above: Result Comment: Canc elled via OM: Order cancelled - Patient discharged Performed By: #### L 100.0100, L500.2500 ####[facility] [address] [place], [address] Absolute lymphocyte countOrd ered By: Valarie Silver on 12-11-2024 Lymphocytes Auto (Unsp spec) [#/Vol] 1.67 10*3/uL 0.83-4.51 [facility] Absolute neutrophil countOrd ered By: Valarie Silver on 12-11-2024 Absolute neutrophil count 4.9 X10^3/uL 2.0-7.7 [facility] Anion gap [Moles/Vol]Ordered By: Valarie Silver on 12-11-2024 Anion gap in Serum or Plasma 14 02-11 [facility] Anion gap in Serum or Plasma Ordered By: Valarie Silver on 12-11-2024 Anion gap [Moles/Vol] 14 mmol/L 02-11 [facility] Automated lymphocyte count a s percentage of total leukocytesOrdered By: Valarie Silver on 12-11-2024 Lymphocytes/100 WBC Auto (Unsp spec) 22.5 % [facility] BUN/creatinine ratioOrdered By: Valaire Silver on 12-11-2024 Urea nitrogen/Creatinine [Mass ratio] 26.2 mg/mg High - [facility] BUN/creatinine ratio 26.2 RATIO High 10- [facility] Basic Metabolic Profile (BMP )on 12-11-2024 BUN/CRE 26.2 RATIO High - [facility] Comment on above: Performed By: #### L 500.2500, L100.0100 ####[facility] [address] [place], [address] Calcium [Mass/Vol] 8.2 mg/dL Normal 7.6-11.0 [facility] Comment on above: Performed By: #### L 500.2500, L100.0100 ####[facility] [address] [place], [address] Chloride [Moles/Vol] 102 mmol/L Normal 98-108 [facility] Comment on above: Performed By: #### L 500.2500, L100.0100 ####[facility] [address] [place], [address] CO2 [Moles/Vol] 21.2 mmol/L Normal 21.0-32.0 [facility] Comment on above: Performed By: #### L 500.2500, L100.0100 ####[facility] [address] [place], [address] Creatinine [Mass/Vol] 0.43 mg/dL Low 0.70-1.20 [facility] Comment on above: Performed By: #### L 500.2500, L100.0100 ####[facility] [address] [place], [address] ECRCL 55.13 ml/min Normal 50-250 [facility] Comment on above: Performed By: #### L 500.2500, L100.0100 ####[facility] [address] [place], [address] GAP 14 Normal 5-15 [facility] Comment on above: Performed By: #### L 500.2500, L100.0100 ####[facility] [address] [place], [address] GFR/1.73 sq M.predicted among non-blacks MDRD (S/P/Bld) [Vol rate/Area] 100 mL/min/{1.73_m2} Normal >60 [facility] Comment on above: Result Comment: mL/m in/1.73m2 CKD-EPI Creatinine Equation (2020) Performed By: #### L 500.2500, L100.0100 ####[facility] [address] [place], [address] Glucose [Mass/Vol] 141 mg/dL High 70-99 [facility] Comment on above: Performed By: #### L 500.2500, L100.0100 ####[facility] [address] [place], [address] Potassium [Moles/Vol] 3.1 mmol/L Low 3.3-5.1 [facility] Comment on above: Performed By: #### L 500.2500, L100.0100 ####[facility] [address] [place], [address] Sodium [Moles/Vol] 138 mmol/L Normal 133-145 [facility] Comment on above: Performed By: #### L 500.2500, L100.0100 ####[facility] [address] [place], [address] Urea nitrogen [Mass/Vol] 11 mg/dL Normal -19 [facility] Comment on above: Performed By: #### L 500.2500, L100.0100 ####[facility] [address] [place], [address] Basophil percentageOrdered B y: Valarie Silver on 12-11-2024 Basophils/100 WBC (Bld) 0.3 % 0-1 [facility] Blood manual differential co mment interpretation (narrative result)Ordered By: Valarie Silver on 12-11-2024 Manual differential comment Rico (Bld) [Interp] See comment [facility] CBC W/Diff, Automatedon 11-28 SMEAR COMMENT Normal [facility] Comment on above: Result Comment: AUTO DIFF OK Performed By: #### L 500.2500, L100.0100 ####[facility] [address] [place], [address] Calcium [Mass/Vol]Ordered By : Valarie Silver on 12-11-2024 Serum or plasma calcium measurement (mass/volume) 8.2 mg/dL 7.6-11.0 [facility] Carbon dioxide, total [Moles /volume] in Central venous bloodOrdered By: Valarie iSlver on 12-11-2024 CO2 [Moles/Vol] 21.2 mmol/L 21.0-32.0 [facility] Carbon dioxide, total [Moles/volume] in Central venous blood 21.2 mmol/L 21.0-32.0 [facility] Chloride assayOrdered By: Sandra Silver on 12-11-2024 Chloride [Moles/Vol] 102 mmol/L 98-108 [facility] Chloride assay 102 mmol/L 98-108 [facility] Creatinine [Mass/Vol]Ordered By: Valarie Silver on 12-11-2024 Serum creatinine measurement (mass/volume) 0.43 mg/dL Low 0.70-1.20 [facility] Eosinophil percentageOrdered By: Valarie Silver on 12-11-2024 Eosinophils/100 WBC (Bld) 0.3 % 0-5 [facility] Eosinophil percentage 0.3 % 0-1 [facility] Erythrocyte distribution wid th (RBC) [Entitic vol]Ordered By: Valarie Silver 12-11-2024 Erythrocyte distribution width standard deviation 50.5 fl High 35.1-43.9 [facility] Erythrocyte distribution wid th (RBC) [Ratio]Ordered By: Valarie Silver on 12-11-2024 Erythrocyte distribution width ratio 14.7 % High 11.6-14.6 [facility] Erythrocyte distribution wid th ratioOrdered By: Valarie Silver on 12-11-2024 Erythrocyte distribution width (RBC) [Ratio] 14.7 % High 11.6-14.6 [facility] Erythrocyte distribution wid th standard deviationOrdered By: Valarie Silver on 12-11-2024 Erythrocyte distribution width (RBC) [Ratio] 50.5 fl High 35.1-43.9 [facility] Estimation of creatinine mary aranceOrdered By: Valarie Silver on 12-11-2024 Estimation of creatinine clearance 55.13 ml/min 50-250 [facility] GFR/1.73 sq M.predicted hallie g non-blacks MDRD (S/P/Bld) [Vol rate/Area]Ordered By: Valarie Silver on 12-11-2024 Glomerular filtration rate (GFR) estimation/1.73 sq m using serum, plasma, or whole b 100 >60 [facility] Glomerular filtration rate ( GFR) estimation/1.73 sq m using serum, plasma, or whole bOrdered By: Valarie Silver on 12-11-2024 GFR/1.73 sq M.predicted among non-blacks MDRD (S/P/Bld) [Vol rate/Area] 100 mL/min/{1.73_m2} >60 [facility] Glucose [Mass/Vol]Ordered By : Valarie Silver on 12-11-2024 Serum glucose measurement (mass/volume) 141 mg/dL High 70-99 [facility] Hematocrit Auto (Bld) [Volum e fraction]Ordered By: Valarie Silver on 12-11-2024 Hematocrit (Bld) [Volume fraction] 30.4 % Low 37-47 [facility] Automated blood hematocrit (percentage) 30.4 % Low 37-47 [facility] Hemoglobin measurementOrdere d By: Valarie Silver on 12-11-2024 Hemoglobin (Bld) [Mass/Vol] 9.6 g/dL Low 12.0-15. 0 [facility] Hemoglobin measurement 9.6 g/dL Low 12.0-15.0 [facility] Immature granulocytes/100 WB C Auto (Bld)Ordered By: Valarie Silver on 12-11-2024 Immature granulocytes/100 WBC (Bld) 2.600 % High 0.0-0.9 [facility] Automated immature granulocyte percentage 2.600 % High 0.0-0.9 [facility] Lymphocytes Auto (Unsp spec) [#/Vol]Ordered By: Valarie Silver on 12-11-2024 Absolute lymphocyte count 1.67 X10^3/uL 0.83-4. 51 [facility] Lymphocytes/100 WBC Auto (Un sp spec)Ordered By: Valarie Silver on 12-11-2024 Automated lymphocyte count as percentage of total leukocytes 22.5 % 19-41 [facility] MCV (RBC) [Entitic vol]Order ed By: Valarie Silver on 12-11-2024 MCV (mean corpuscular volume) determination 93.8 fL 81-99 [facility] MCV (mean corpuscular volume ) determinationOrdered By: Valarie Silver on 12-11-2024 MCV (RBC) [Entitic vol] 93.8 fL 81-99 [facility] Magnesiumon 12-11-2024 Magnesium [Mass/Vol] 1.8 mg/dL Normal 1.5-2.2 [facility] Comment on above: Order Comment: Comme nts: Add onto previous labs if possible Performed By: #### L 501.5200, L501.2300 ####[facility] [address] [place], [address] Magnesium (Unsp spec) [Mass/ Vol]Ordered By: Sonali Rousseau on 12-11-2024 Magnesium measurement (mass/volume) 1.8 mg/dL 1.5-2.2 [facility] Magnesium measurement (mass/ volume)Ordered By: Sonali Rousseau on 12-11-2024 Magnesium (Unsp spec) [Mass/Vol] 1.8 mg/dL 1.5-2.2 [facility] Manual differential comment Rico (Bld) [Interp]Ordered By: Valarie Silver on 12-11-2024 Blood manual differential comment interpretation (narrative result) See comment [facility] Mean corpuscular hemoglobin (MCH) determinationOrdered By: Valarie Silver on 12-11-2024 MCH (RBC) [Entitic mass] 29.6 pg 27.0-32.0 [facility] Mean corpuscular hemoglobin (MCH) determination 29.6 pg 27.0-32.0 [facility] Mean corpuscular hemoglobin concentration (MCHC) determinationOrdered By: Valarie Silver on 12-11-2024 Mean corpuscular hemoglobin concentration (MCHC) determination 31.6 g/dL Low 32-36 [facility] Mean platelet volume determi nationOrdered By: Valarie Silver on 12-11-2024 Mean platelet volume determination 10.4 fl 6.2-12.0 [facility] Monocyte percentageOrdered B y: Valarie Nadeem on 12-11-2024 Monocytes/100 WBC (Bld) 8.5 % 0-10 [facility] Monocyte percentage 8.5 % 0-10 [facility] Neutrophil percentageOrdered By: Valarie Nadeem on 12-11-2024 Neutrophils/100 WBC (Bld) 65.8 % 47-70 [facility] Neutrophil percentage 65.8 % 47-70 [facility] Nucleated red blood cell per centageOrdered By: Valarie Silver on 12-11-2024 Nucleated red blood cell percentage 0 % 0-5 [facility] Phosphoruson 12-11-2024 Phosphate [Mass/Vol] 2.3 mg/dL Low 2.7-4.5 [facility] Comment on above: Order Comment: Comme nts: Add onto previous labs if possible Performed By: #### L 501.5200, L501.2300 ####[facility] [address] [place], [place], [address] Platelet countOrdered By: Sandra Silver on 12-11-2024 Platelets (Bld) [#/Vol] 346 10*3/uL 150-450 [facility] Platelet count 346 K/mm3 150-450 [facility] Potassium (Unsp spec) [Mass/ Vol]Ordered By: Valarie Silver on 12-11-2024 Potassium measurement (mass/volume) 3.1 mmol/L Low 3.3-5.1 [facility] Potassium measurement (mass/ volume)Ordered By: Valarie Silver on 12-11-2024 Potassium (Unsp spec) [Mass/Vol] 3.1 mmol/L Low 3.3-5.1 [facility] RBC Auto (Bld) [#/Vol]Ordere d By: Valarie Silver on 12-11-2024 RBC (Bld) [#/Vol] 3.24 10*6/uL Low 4.2-5.4 [facility] Automated blood erythrocyte count 3.24 M/mm3 Low 4.2-5.4 [facility] Serum creatinine measurement (mass/volume)Ordered By: Valarie Silver on 12-11-2024 Creatinine [Mass/Vol] 0.43 mg/dL Low 0.70-1.20 [facility] Serum glucose measurement (m ass/volume)Ordered By: Valarie Silver on 12-11-2024 Glucose [Mass/Vol] 141 mg/dL High 70-99 [facility] Serum or plasma calcium abhinav urement (mass/volume)Ordered By: Valarie Silver on 12-11-2024 Calcium [Mass/Vol] 8.2 mg/dL 7.6-11.0 [facility] Serum or plasma urea nitroge n measurement (mass/volume)Ordered By: Valarie Silver on 12-11-2024 Urea nitrogen [Mass/Vol] 11 mg/dL 01-16 [facility] Serum phosphorus measurement Ordered By: Sonali Rousseau on 12-11-2024 Serum phosphorus measurement 2.3 mg/dL Low 2.7-4.5 [facility] Sodium levelOrdered By: Valarie Silver on 12-11-2024 Sodium [Moles/Vol] 138 mmol/L 133-145 [facility] Sodium level 138 mmol/L 133-145 [facility] Urea nitrogen [Mass/Vol]Orde red By: Valarie Silver on 12-11-2024 Serum or plasma urea nitrogen measurement (mass/volume) 11 mg/dL 01-16 [facility] White blood cell (WBC) count Ordered By: Valarie Silver on 12-11-2024 WBC (Bld) [#/Vol] 7.4 10*3/uL 4.4-11.0 [facility] White blood cell (WBC) count 7.4 K/mm3 4.4-11.0 [facility] Basic Metabolic Profile (BMP )on 12-10-2024 BUN/CRE 24.3 RATIO High 10-20 [facility] Comment on above: Performed By: #### L 100.0100, L500.2500 ####[facility] [address] [place], [place], [id number] Calcium [Mass/Vol] 7.6 mg/dL Normal 7.6-11.0 [facility] Comment on above: Performed By: #### L 100.0100, L500.2500 ####[facility] [address] [place], [address] Chloride [Moles/Vol] 105 mmol/L Normal 98-108 [facility] Comment on above: Performed By: #### L 100.0100, L500.2500 ####[facility] [address] [place], [address] CO2 [Moles/Vol] 19.2 mmol/L Low 21.0-32.0 [facility] Comment on above: Performed By: #### L 100.0100, L500.2500 ####[facility] [address] [place], [address] Creatinine [Mass/Vol] 0.37 mg/dL Low 0.70-1.20 [facility] Comment on above: Performed By: #### L 100.0100, L500.2500 ####[facility] [address] [place], [address] ECRCL 55.13 ml/min Normal 50-250 [facility] Comment on above: Performed By: #### L 100.0100, L500.2500 ####[facility] [address] [place], [address] GAP 14 Normal 5-15 [facility] Comment on above: Performed By: #### L 100.0100, L500.2500 ####[facility] [address] [place], [address] GFR/1.73 sq M.predicted among non-blacks MDRD (S/P/Bld) [Vol rate/Area] 104 mL/min/{1.73_m2} Normal >60 [facility] Comment on above: Result Comment: mL/m in/1.73m2 CKD-EPI Creatinine Equation (2020) Performed By: #### L 100.0100, L500.2500 ####[facility] [address] [place], [address] Glucose [Mass/Vol] 65 mg/dL Low 70-99 [facility] Comment on above: Performed By: #### L 100.0100, L500.2500 ####[facility] [address] [place], [address] Potassium [Moles/Vol] 3.4 mmol/L Normal 3.3-5.1 [facility] Comment on above: Performed By: #### L 100.0100, L500.2500 ####[facility] [address] [place], [address] Sodium [Moles/Vol] 138 mmol/L Normal 133-145 [facility] Comment on above: Performed By: #### L 100.0100, L500.2500 ####[facility] [address], [address] Urea nitrogen [Mass/Vol] 9 mg/dL Normal 4-19 [facility] Comment on above: Performed By: #### L 100.0100, L500.2500 ####[facility] [address] [place], [address] CBC W/Diff, Automatedon 11-28 PLT EST ADEQUATE Normal ADEQ [facility] Comment on above: Performed By: #### L 100.0100, L500.2500 ####[facility] [address] [place], [address] RED CELL MORPH NORM C+C Normal NORM C C [facility] Comment on above: Performed By: #### L 100.0100, L500.2500 ####[facility] [address] [place], [address] SMEAR COMMENT SCANNED Normal [facility] Comment on above: Performed By: #### L 100.0100, L500.2500 ####[facility] [address], [address] Erythrocyte morphology asses smentOrdered By: Valarie Silver on 12-10-2024 RBC morphology finding Nom (Bld) NORM C+C NORMAL NORM C&C [facility] Platelet estimateOrdered By: Valarie Silver on 12-10-2024 Platelets LM Ql (Bld) [facility] Platelets LM Ql (Bld)Ordered By: Valarie Silver on 12-10-2024 Platelet estimate ADEQUATE [facility] RBC morphology finding Nom ( Bld)Ordered By: Valarie Silver on 12-10-2024 Erythrocyte morphology assessment NORM C+C NORMAL NORM C&C [facility] Basic Metabolic Profile (BMP )on 12-09-2024 BUN/CRE 27.9 RATIO High 10-20 [facility] Comment on above: Performed By: #### L 100.0100, L500.2500 ####[facility] [address] [place], [address] Calcium [Mass/Vol] 7.7 mg/dL Normal 7.6-11.0 [facility] Comment on above: Performed By: #### L 100.0100, L500.2500 ####[facility] [address] [place], [address] Chloride [Moles/Vol] 104 mmol/L Normal 98-108 [facility] Comment on above: Performed By: #### L 100.0100, L500.2500 ####[facility] [address] [place], [address] CO2 [Moles/Vol] 20.1 mmol/L Low 21.0-32.0 [facility] Comment on above: Performed By: #### L 100.0100, L500.2500 ####[facility] [address] [place], [address] Creatinine [Mass/Vol] 0.37 mg/dL Low 0.70-1.20 [facility] Comment on above: Performed By: #### L 100.0100, L500.2500 ####[facility] [address] [place], [address] ECRCL 55.13 ml/min Normal 50-250 [facility] Comment on above: Performed By: #### L 100.0100, L500.2500 ####[facility] [address] [place], [address] GAP 13 Normal 5-15 [facility] Comment on above: Performed By: #### L 100.0100, L500.2500 ####[facility] [address] [place], [address] GFR/1.73 sq M.predicted among non-blacks MDRD (S/P/Bld) [Vol rate/Area] 104 mL/min/{1.73_m2} Normal >60 [facility] Comment on above: Result Comment: mL/m in/1.73m2 CKD-EPI Creatinine Equation (2020) Performed By: #### L 100.0100, L500.2500 ####[facility] [address] [place], [address] Glucose [Mass/Vol] 76 mg/dL Normal 70-99 [facility] Comment on above: Performed By: #### L 100.0100, L500.2500 ####[facility] [address] [place], [address] Potassium [Moles/Vol] 3.3 mmol/L Normal 3.3-5.1 [facility] Comment on above: Performed By: #### L 100.0100, L500.2500 ####[facility] [address] [place], [address] Sodium [Moles/Vol] 137 mmol/L Normal 133-145 [facility] Comment on above: Performed By: #### L 100.0100, L500.2500 ####[facility] [address] [place], [address] Urea nitrogen [Mass/Vol] 10 mg/dL Normal 4-19 [facility] Comment on above: Performed By: #### L 100.0100, L500.2500 ####[facility] [address] [place], [address] CBC W/Diff, Automatedon 11-28-2024 Absolute Lymph 1.54 X10 3/uL Normal 0.83-4.51 [facility] Comment on above: Performed By: #### L 100.0100, L500.2500 ####[facility] [address] [place], [address] Absolute Neut 4.4 X10 3/uL Normal 2.0-7.7 [facility] Comment on above: Performed By: #### L 100.0100, L500.2500 ####[facility] [address] [place], [address] Basophils/100 WBC (Bld) 0.3 % Normal 0-1 [facility] Comment on above: Performed By: #### L 100.0100, L500.2500 ####[facility] [address] [place], [address] Eosinophils/100 WBC (Bld) 0.2 % Normal 0-5 [facility] Comment on above: Performed By: #### L 100.0100, L500.2500 ####[facility] [address] [place], [address] Erythrocyte distribution width (RBC) [Ratio] 14.6 % Normal 11.6-14.6 [facility] Comment on above: Performed By: #### L 100.0100, L500.2500 ####[facility] [address] [place], [address] Hematocrit (Bld) [Volume fraction] 30.6 % Low 37-47 [facility] Comment on above: Performed By: #### L 100.0100, L500.2500 ####[facility] [address] [place], [address] Hemoglobin (Bld) [Mass/Vol] 10.0 g/dL Low 12.0-15. 0 [facility] Comment on above: Performed By: #### L 100.0100, L500.2500 ####[facility] [address] [place], [address] IG% 0.800 Normal 0.0-0.9 [facility] Comment on above: Result Comment: IG% - Immature Granulocytes (promyelocytes, myelocytes andmetamyelocytes) > 1% indicates that a LEFT SHIFT is Present. Performed By: #### L 100.0100, L500.2500 ####[facility] [address] [place], [address] Lymphocytes/100 WBC (Bld) 23.4 % Normal 19-41 [facility] Comment on above: Performed By: #### L 100.0100, L500.2500 ####[facility] [address] [place], [address] MCH (RBC) [Entitic mass] 30.3 pg Normal 27.0-32.0 [facility] Comment on above: Performed By: #### L 100.0100, L500.2500 ####[facility] [address] [place], [address] MCHC (RBC) [Mass/Vol] 32.7 g/dL Normal 32-36 [facility] Comment on above: Performed By: #### L 100.0100, L500.2500 ####[facility] [address] [place], [address] MCV (RBC) [Entitic vol] 92.7 fL Normal 81-99 [facility] Comment on above: Performed By: #### L 100.0100, L500.2500 ####[facility] [address] [place], [address] Monocytes/100 WBC (Bld) 8.8 % Normal 0-10 [facility] Comment on above: Performed By: #### L 100.0100, L500.2500 ####[facility] [address] [place], [address] Neutrophils/100 WBC (Bld) 66.5 % Normal 47-70 [facility] Comment on above: Performed By: #### L 100.0100, L500.2500 ####[facility] [address] [place], [address] Nucleated RBC (Bld) [#/Vol] 0 10*3/uL Normal 0-5 [facility] Comment on above: Performed By: #### L 100.0100, L500.2500 ####[facility] [address] [place], [address] Platelet mean volume (Bld) [Entitic vol] 10.1 fL Normal 6.2-12.0 [facility] Comment on above: Performed By: #### L 100.0100, L500.2500 ####[facility] [address] [place], [address] Platelets (Bld) [#/Vol] 318 10*3/uL Normal 150-450 [facility] Comment on above: Performed By: #### L 100.0100, L500.2500 ####[facility] [address] [place], [address] RBC (Bld) [#/Vol] 3.30 10*6/uL Low 4.2-5.4 [facility] Comment on above: Performed By: #### L 100.0100, L500.2500 ####[facility] [address] [place], [address] RDW SD 49.4 fl High 35.1-43.9 [facility] Comment on above: Performed By: #### L 100.0100, L500.2500 ####[facility] [address] [place], [address] WBC (Bld) [#/Vol] 6.6 10*3/uL Normal 4.4-11.0 [facility] Comment on above: Performed By: #### L 100.0100, L500.2500 ####[facility] [address] [place], [address] Culture, Blood (WB)on 2024 CUB Blood cultures x2, from two different sites No growth in 5 days. Normal [facility] Comment on above: Performed By: #### L 500.4050, L503.6005, L300.3900, L300.4310, L100.0100, M200.1000 ####[facility] [address] [place], [address] EGD Reporton 12-09-2024 EGD Report Normal [facility] MR/POSTOP.ANEon 12-09-2024 MR/POSTOP.ANE Normal [facility] MR/[id number] 12-09-2024 MR/POSTOPAN2 [facility] Special Stain Group Ion - Special Stain Group I Normal [facility] Comment on above: Performed By: #### P SUMARIE, PSSI ####[facility] [address] [place], [address] Surgery Specimen Level Rick 12-09-2024 Surgery Specimen Level IV Normal [facility] Comment on above: Performed By: #### P SUIV, PSSI ####[facility] [address] [place], [address] Urine Cultureon 12-09-2024 URC Culture exhibits no growth. Normal [facility] Comment on above: Performed By: #### L 400.0001, M100.2200 ####[facility] [address] [place], [address] Amorphous sediment LM Ql (Ur ine sed)Ordered By: Sonali Rousseau on 12-08-2024 Amorphous sediment detection in urine sediment by light microscopy 2+ URATE [facility] Amorphous sediment detection in urine sediment by light microscopyOrdered By: Sonali Rousseau on 12-08-2024 Amorphous sediment LM Ql (Urine sed) 2+ URATE [facility] Bacteria LM.HPF (Urine sed) [#/Area]Ordered By: Sonali Rousseau on 12-08-2024 Urine sediment bacteria count by microscopy (number/high power field) RARE /hpf None Seen [facility] Basic Metabolic Profile (BMP )on 12-08-2024 BUN/CRE 40.3 RATIO High 10-20 [facility] Comment on above: Performed By: #### L 100.0100, L500.2500 ####[facility] [address] [place], [address] Calcium [Mass/Vol] 7.8 mg/dL Normal 7.6-11.0 [facility] Comment on above: Performed By: #### L 100.0100, L500.2500 ####[facility] [address] [place], [address] Chloride [Moles/Vol] 104 mmol/L Normal 98-108 [facility] Comment on above: Performed By: #### L 100.0100, L500.2500 ####[facility] [address] [place], [address] CO2 [Moles/Vol] 22.0 mmol/L Normal 21.0-32.0 [facility] Comment on above: Performed By: #### L 100.0100, L500.2500 ####[facility] [address] [place], [address] Creatinine [Mass/Vol] 0.40 mg/dL Low 0.70-1.20 [facility] Comment on above: Performed By: #### L 100.0100, L500.2500 ####[facility] [address] [place], [address] ECRCL 55.13 ml/min Normal 50-250 [facility] Comment on above: Performed By: #### L 100.0100, L500.2500 ####[facility] [address] [place], [address] GAP 11 Normal 5-15 [facility] Comment on above: Performed By: #### L 100.0100, L500.2500 ####[facility] [address] [place], [address] GFR/1.73 sq M.predicted among non-blacks MDRD (S/P/Bld) [Vol rate/Area] 102 mL/min/{1.73_m2} Normal >60 [facility] Comment on above: Result Comment: mL/m in/1.73m2 CKD-EPI Creatinine Equation (2020) Performed By: #### L 100.0100, L500.2500 ####[facility] [address] [place], [address] Glucose [Mass/Vol] 80 mg/dL Normal 70-99 [facility] Comment on above: Performed By: #### L 100.0100, L500.2500 ####[facility] [address] [place], [address] Potassium [Moles/Vol] 3.4 mmol/L Normal 3.3-5.1 [facility] Comment on above: Performed By: #### L 100.0100, L500.2500 ####[facility] [address] [place], [address] Sodium [Moles/Vol] 137 mmol/L Normal 133-145 [facility] Comment on above: Performed By: #### L 100.0100, L500.2500 ####[facility] [address] [place], [address] Urea nitrogen [Mass/Vol] 16 mg/dL Normal 4-19 [facility] Comment on above: Performed By: #### L 100.0100, L500.2500 ####[facility] [address] [place], [address] Bilirubin Test strip Ql (U)O rdered By: Sonali Rousseau on 12-08-2024 Bilirubin Ql (U) Negative Negative [facility] Blood cultureOrdered By: Saurav Rousseau on 12-08-2024 Bacteria identified Cx Nom (Bld) No growth in 5 days. [facility] CBC W/Diff, Automatedon 11-28 Absolute Lymph 1.35 X10 3/uL Normal 0.83-4.51 [facility] Comment on above: Performed By: #### L 100.0100, L500.2500 ####[facility] [address] [place], [address] Absolute Neut 4.0 X10 3/uL Normal 2.0-7.7 [facility] Comment on above: Performed By: #### L 100.0100, L500.2500 ####[facility] [address] [place], [address] Basophils/100 WBC (Bld) 0.2 % Normal 0-1 [facility] Comment on above: Performed By: #### L 100.0100, L500.2500 ####[facility] [address] [place], [address] Eosinophils/100 WBC (Bld) 0.0 % Normal 0-5 [facility] Comment on above: Performed By: #### L 100.0100, L500.2500 ####[facility] [address] [place], [address] Erythrocyte distribution width (RBC) [Ratio] 15.0 % High 11.6-14.6 [facility] Comment on above: Performed By: #### L 100.0100, L500.2500 ####[facility] [address] [place], [address] Hematocrit (Bld) [Volume fraction] 28.4 % Low 37-47 [facility] Comment on above: Performed By: #### L 100.0100, L500.2500 ####[facility] [address] [place], [address] Hemoglobin (Bld) [Mass/Vol] 8.9 g/dL Low 12.0-15. 0 [facility] Comment on above: Performed By: #### L 100.0100, L500.2500 ####[facility] [address] [place], [address] IG% 0.500 Normal 0.0-0.9 [facility] Comment on above: Result Comment: IG% - Immature Granulocytes (promyelocytes, myelocytes andmetamyelocytes) > 1% indicates that a LEFT SHIFT is Present. Performed By: #### L 100.0100, L500.2500 ####[facility] [address] [place], [address] Lymphocytes/100 WBC (Bld) 23.0 % Normal 19-41 [facility] Comment on above: Performed By: #### L 100.0100, L500.2500 ####[facility] [address] [place], [address] MCH (RBC) [Entitic mass] 29.5 pg Normal 27.0-32.0 [facility] Comment on above: Performed By: #### L 100.0100, L500.2500 ####[facility] [address] [place], [address] MCHC (RBC) [Mass/Vol] 31.3 g/dL Low 32-36 [facility] Comment on above: Performed By: #### L 100.0100, L500.2500 ####[facility] [address] [place], [address] MCV (RBC) [Entitic vol] 94.0 fL Normal 81-99 [facility] Comment on above: Performed By: #### L 100.0100, L500.2500 ####[facility] [address] [place], [address] Monocytes/100 WBC (Bld) 8.0 % Normal 0-10 [facility] Comment on above: Performed By: #### L 100.0100, L500.2500 ####[facility] [address] [place], [address] Neutrophils/100 WBC (Bld) 68.3 % Normal 47-70 [facility] Comment on above: Performed By: #### L 100.0100, L500.2500 ####[facility] [address] [place], [address] Nucleated RBC (Bld) [#/Vol] 0 10*3/uL Normal 0-5 [facility] Comment on above: Performed By: #### L 100.0100, L500.2500 ####[facility] [address] [place], [address] Platelet mean volume (Bld) [Entitic vol] 9.2 fL Normal 6.2-12.0 [facility] Comment on above: Performed By: #### L 100.0100, L500.2500 ####[facility] [address] [place], [address] Platelets (Bld) [#/Vol] 315 10*3/uL Normal 150-450 [facility] Comment on above: Performed By: #### L 100.0100, L500.2500 ####[facility] [address] [place], [address] RBC (Bld) [#/Vol] 3.02 10*6/uL Low 4.2-5.4 [facility] Comment on above: Performed By: #### L 100.0100, L500.2500 ####[facility] [address] [place], [address] RDW SD 51.7 fl High 35.1-43.9 [facility] Comment on above: Performed By: #### L 100.0100, L500.2500 ####[facility] [address] [place], [address] WBC (Bld) [#/Vol] 5.9 10*3/uL Normal 4.4-11.0 [facility] Comment on above: Performed By: #### L 100.0100, L500.2500 ####[facility] [address] [facility] [place], [address] Clarity (U)Ordered By: Sonali Rousseau on 12-08-2024 Urine clarity Sl. Cloudy Clear [facility] Color (U)Ordered By: Sonali zhang on 12-08-2024 Urine color determination Yellow Yellow [facility] Ketones Test strip Ql (U)Ord ered By: Sonali Rousseau on 12-08-2024 Ketones Ql (U) 150 mg/dl Abnormal Negative [facility] Urine ketones detection by test strip 150 mg/dl Abnormal Negative [facility] Leukocyte esterase Test stri p Ql (U)Ordered By: Sonali Rousseau on 12-08-2024 Urine leukocyte esterase detection by dipstick 25 /ul High Negative [facility] MR/CON.PCM.GIon 12-08-2024 MR/CON.PCM.GI Normal [facility] Microscopic analysis of urin e for red blood cells (RBC)Ordered By: Sonali Rousseau on 12-08-2024 Microscopic analysis of urine for red blood cells (RBC) > 100 SEEN /hpf 0-5 [facility] Modified Barium Swallow Stud yon 12-08-2024 Modified Barium Swallow Study Normal [facility] Mucus LM Ql (Urine sed)Order ed By: Sonali Rousseau on 12-08-2024 Mucus Ql (Urine sed) 0 SEEN /hpf [facility] Mucus detection in urine sediment by light microscopy 0 SEEN /hpf [facility] Nitrite Test strip Ql (U)Ord ered By: Sonali Rousseau on 12-08-2024 Nitrite Ql (U) Negative Negative [facility] Protein Test strip Ql (U)Ord ered By: Sonali Rousseau on 12-08-2024 Protein Ql (U) 100 mg/dl High Negative [facility] Urine protein assay by test strip, semi-quantitative 100 mg/dl High Negative [facility] Specific gravity (U) [Rel de nsity]Ordered By: Sonali Rousseau on 12-08-2024 Urine specific gravity measurement 1.020 1.002-1.03 0 [facility] Squamous epithelial cells de tection in urine sediment by light microscopyOrdered By: Sonali Rousseau on 12-08-2024 Epithelial cells.squamous LM Ql (Urine sed) 0-5 SEEN /hpf 5-10 [facility] Urinalysis, Completeon 12-08 AMORPHOUS 2+ URATE Normal [facility] Comment on above: Order Comment: JO CTOR TO SPECIFY Performed By: #### L 400.0001, ####[facility] [address] [place], [address] BACTERIA RARE Normal None Seen [facility] Comment on above: Order Comment: JO CTOR TO SPECIFY Performed By: #### L 400.0001, ####[facility] [address] [place], [address] EPI,SQUAMOUS 0-5 SEEN Normal 5-10 [facility] Comment on above: Order Comment: JO CTOR TO SPECIFY Performed By: #### L 400.0001, ####[facility] [address] [place], [address] RBC > 100 SEEN Normal 0-5 [facility] Comment on above: Order Comment: JO CTOR TO SPECIFY Performed By: #### L 400.0001, ####[facility] [address] [place], [address] WBC 0-5 SEEN Normal 0-5 [facility] Comment on above: Order Comment: JO CTOR TO SPECIFY Performed By: #### L 400.0001, ####[facility] [address] [place], [address] Mucus Ql (Urine sed) 0 SEEN Normal [facility] Comment on above: Order Comment: COLLE CTOR TO SPECIFY Performed By: #### L 400.0001, M100.2200 ####[facility] [address] [place], [address] Urine blood detectionOrdered By: Sonali Rousseau on 12-08-2024 Urine blood detection 250 /ul High Negative [facility] Urine clarityOrdered By: Saurav Rousseau on 12-08-2024 Clarity (U) Sl. Cloudy Clear [facility] Urine color determinationOrd ered By: Sonali Rousseau on 12-08-2024 Color (U) Yellow Yellow [facility] Urine cultureOrdered By: Saurav Rousseau on 12-08-2024 Bacteria identified Cx Nom (U) Culture exhibits no growth. [facility] Urine culture Culture exhibits no growth. [facility] Urine glucose detectionOrder ed By: Sonali Rousseau on 12-08-2024 Glucose Ql (U) Normal mg/dl Normal [facility] Urine glucose detection Normal mg/dl Normal [facility] Urine leukocyte esterase det ection by dipstickOrdered By: Sonali Rousseau on 12-08-2024 Leukocyte esterase Test strip Ql (U) 25 /ul High Negative [facility] Urine pHOrdered By: Sonali vo on 12-08-2024 pH (U) 5.0 [pH] 5.0 - 8.0 [facility] Urine sediment bacteria coun t by microscopy (number/high power field)Ordered By: Sonali Rousseau on 12-08-2024 Bacteria LM.HPF (Urine sed) [#/Area] RARE /hpf None Seen [facility] Urine specific gravity measu rementOrdered By: Sonali Rousseau on 12-08-2024 Specific gravity (U) [Rel density] 1.020 1.002-1.03 0 [facility] Urine total bilirubin detect ion by test stripOrdered By: Sonali Rousseau on 12-08-2024 Urine total bilirubin detection by test strip Negative Negative [facility] Urine urobilinogen measureme ntOrdered By: Sonali Rousseau on 12-08-2024 Urobilinogen Ql (U) Normal mg/dl Normal [facility] White blood cell countOrdere d By: Sonali Rousseau on 12-08-2024 White blood cell count 0-5 SEEN /hpf 0-5 [facility] White blood cell count 0-5 SEEN /hpf 5-10 [facility] pH (U)Ordered By: Sonali lau on 12-08-2024 Urine pH 5.0 5.0 - 8.0 [facility] Basic Metabolic Profile (BMP )on 12-07-2024 BUN/CRE 41.1 RATIO High 10-20 [facility] Comment on above: Performed By: #### L 100.0100, L500.2500 ####[facility] [address] [place], [address] Calcium [Mass/Vol] 7.7 mg/dL Normal 7.6-11.0 [facility] Comment on above: Performed By: #### L 100.0100, L500.2500 ####[facility] [address] [place], [address] Chloride [Moles/Vol] 105 mmol/L Normal 98-108 [facility] Comment on above: Performed By: #### L 100.0100, L500.2500 ####[facility] [address] [place], [address] CO2 [Moles/Vol] 22.5 mmol/L Normal 21.0-32.0 [facility] Comment on above: Performed By: #### L 100.0100, L500.2500 ####[facility] [address] [place], [address] Creatinine [Mass/Vol] 0.46 mg/dL Low 0.70-1.20 [facility] Comment on above: Performed By: #### L 100.0100, L500.2500 ####[facility] [address] [place], [address] ECRCL 55.13 ml/min Normal 50-250 [facility] Comment on above: Performed By: #### L 100.0100, L500.2500 ####[facility] [address] [place], [address] GAP 11 Normal 5-15 [facility] Comment on above: Performed By: #### L 100.0100, L500.2500 ####[facility] [address] [place], [address] GFR/1.73 sq M.predicted among non-blacks MDRD (S/P/Bld) [Vol rate/Area] 98 mL/min/{1.73_m2} Normal >60 [facility] Comment on above: Result Comment: mL/m in/1.73m2 CKD-EPI Creatinine Equation (2020) Performed By: #### L 100.0100, L500.2500 ####[facility] [address] [place], [address] Glucose [Mass/Vol] 94 mg/dL Normal 70-99 [facility] Comment on above: Performed By: #### L 100.0100, L500.2500 ####[facility] [address] [place], [address] Potassium [Moles/Vol] 3.4 mmol/L Normal 3.3-5.1 [facility] Comment on above: Performed By: #### L 100.0100, L500.2500 ####[facility] [address] [place], [address] Sodium [Moles/Vol] 139 mmol/L Normal 133-145 [facility] Comment on above: Performed By: #### L 100.0100, L500.2500 ####[facility] [address] [place], [address] Urea nitrogen [Mass/Vol] 19 mg/dL Normal 4-19 [facility] Comment on above: Performed By: #### L 100.0100, L500.2500 ####[facility] [address] [place], [address] CBC W/Diff, Automatedon 03- 0-2025 Absolute Lymph 0.99 X10 3/uL Normal 0.83-4.51 [facility] Comment on above: Performed By: #### L 100.0100, L500.2500 ####[facility] [address] [place], [address] Absolute Neut 4.2 X10 3/uL Normal 2.0-7.7 [facility] Comment on above: Performed By: #### L 100.0100, L500.2500 ####[facility] [address] [place], [address] Basophils/100 WBC (Bld) 0.2 % Normal 0-1 [facility] Comment on above: Performed By: #### L 100.0100, L500.2500 ####[facility] [address] [place], [address] Eosinophils/100 WBC (Bld) 0.0 % Normal 0-5 [facility] Comment on above: Performed By: #### L 100.0100, L500.2500 ####[facility] [address] [place], [address] Erythrocyte distribution width (RBC) [Ratio] 14.8 % High 11.6-14.6 [facility] Comment on above: Performed By: #### L 100.0100, L500.2500 ####[facility] [address] [place], [address] Hematocrit (Bld) [Volume fraction] 27.9 % Low 37-47 [facility] Comment on above: Performed By: #### L 100.0100, L500.2500 ####[facility] [address] [place], [address] Hemoglobin (Bld) [Mass/Vol] 8.9 g/dL Low 12.0-15. 0 [facility] Comment on above: Performed By: #### L 100.0100, L500.2500 ####[facility] [address] [place], [address] IG% 0.700 Normal 0.0-0.9 [facility] Comment on above: Result Comment: IG% - Immature Granulocytes (promyelocytes, myelocytes andmetamyelocytes) > 1% indicates that a LEFT SHIFT is Present. Performed By: #### L 100.0100, L500.2500 ####[facility] [address] [place], [address] Lymphocytes/100 WBC (Bld) 17.3 % Low 19-41 [facility] Comment on above: Performed By: #### L 100.0100, L500.2500 ####[facility] [address] [place], [address] MCH (RBC) [Entitic mass] 30.3 pg Normal 27.0-32.0 [facility] Comment on above: Performed By: #### L 100.0100, L500.2500 ####[facility] [address] [place], [address] MCHC (RBC) [Mass/Vol] 31.9 g/dL Low 32-36 [facility] Comment on above: Performed By: #### L 100.0100, L500.2500 ####[facility] [address] [place], [address] MCV (RBC) [Entitic vol] 94.9 fL Normal 81-99 [facility] Comment on above: Performed By: #### L 100.0100, L500.2500 ####[facility] [address] [place], [address] Monocytes/100 WBC (Bld) 8.2 % Normal 0-10 [facility] Comment on above: Performed By: #### L 100.0100, L500.2500 ####[facility] [address] [place], [address] Neutrophils/100 WBC (Bld) 73.6 % High 47-70 [facility] Comment on above: Performed By: #### L 100.0100, L500.2500 ####[facility] [address] [place], [address] Nucleated RBC (Bld) [#/Vol] 0 10*3/uL Normal 0-5 [facility] Comment on above: Performed By: #### L 100.0100, L500.2500 ####[facility] [address] [place], [address] Platelet mean volume (Bld) [Entitic vol] 9.6 fL Normal 6.2-12.0 [facility] Comment on above: Performed By: #### L 100.0100, L500.2500 ####[facility] [address] [place], [address] Platelets (Bld) [#/Vol] 317 10*3/uL Normal 150-450 [facility] Comment on above: Performed By: #### L 100.0100, L500.2500 ####[facility] [address] [place], [address] RBC (Bld) [#/Vol] 2.94 10*6/uL Low 4.2-5.4 [facility] Comment on above: Performed By: #### L 100.0100, L500.2500 ####[facility] [address] [place], [address] RDW SD 51.4 fl High 35.1-43.9 [facility] Comment on above: Performed By: #### L 100.0100, L500.2500 ####[facility] [address] [place], [address] WBC (Bld) [#/Vol] 5.7 10*3/uL Normal 4.4-11.0 [facility] Comment on above: Performed By: #### L 100.0100, L500.2500 ####[facility] [address] [place], [address] Chest 1 View (Portable)on Chest 1 View (Portable) Normal [facility] Basic Metabolic Profile (BMP )on 12-06-2024 BUN/CRE 40.5 RATIO High 10-20 [facility] Comment on above: Performed By: #### L 100.0100, L500.2500 ####[facility] [address] [place], [address] Calcium [Mass/Vol] 8.1 mg/dL Normal 7.6-11.0 [facility] Comment on above: Performed By: #### L 100.0100, L500.2500 ####[facility] [address] [place], [address] Chloride [Moles/Vol] 106 mmol/L Normal 98-108 [facility] Comment on above: Performed By: #### L 100.0100, L500.2500 ####[facility] [address] [place], [address] CO2 [Moles/Vol] 22.1 mmol/L Normal 21.0-32.0 [facility] Comment on above: Performed By: #### L 100.0100, L500.2500 ####[facility] [address] [place], [address] Creatinine [Mass/Vol] 0.50 mg/dL Low 0.70-1.20 [facility] Comment on above: Performed By: #### L 100.0100, L500.2500 ####[facility] [address] [place], [address] ECRCL 55.13 ml/min Normal 50-250 [facility] Comment on above: Performed By: #### L 100.0100, L500.2500 ####[facility] [address] [place], [address] GAP 11 Normal 5-15 [facility] Comment on above: Performed By: #### L 100.0100, L500.2500 ####[facility] [address] [place], [address] GFR/1.73 sq M.predicted among non-blacks MDRD (S/P/Bld) [Vol rate/Area] 97 mL/min/{1.73_m2} Normal >60 [facility] Comment on above: Result Comment: mL/m in/1.73m2 CKD-EPI Creatinine Equation (2020) Performed By: #### L 100.0100, L500.2500 ####[facility] [address] [place], [address] Glucose [Mass/Vol] 98 mg/dL Normal 70-99 [facility] Comment on above: Performed By: #### L 100.0100, L500.2500 ####[facility] [address] [place], [address] Potassium [Moles/Vol] 3.3 mmol/L Normal 3.3-5.1 [facility] Comment on above: Performed By: #### L 100.0100, L500.2500 ####[facility] [address] [place], [address] Sodium [Moles/Vol] 139 mmol/L Normal 133-145 [facility] Comment on above: Performed By: #### L 100.0100, L500.2500 ####[facility] [address] [place], [address] Urea nitrogen [Mass/Vol] 20 mg/dL High 4-19 [facility] Comment on above: Performed By: #### L 100.0100, L500.2500 ####[facility] [address] [place], [address] CBC W/Diff, Automatedon 03-0 9-5 Absolute Lymph 1.18 X10 3/uL Normal 0.83-4.51 [facility] Comment on above: Performed By: #### L 100.0100, L500.2500 ####[facility] [address] [place], [address] Absolute Neut 12.2 X10 3/uL High 2.0-7.7 [facility] Comment on above: Performed By: #### L 100.0100, L500.2500 ####[facility] [address] [place], [address] Basophils/100 WBC (Bld) 0.1 % Normal 0-1 [facility] Comment on above: Performed By: #### L 100.0100, L500.2500 ####[facility] [address] [place], [address] Eosinophils/100 WBC (Bld) 0.1 % Normal 0-5 [facility] Comment on above: Performed By: #### L 100.0100, L500.2500 ####[facility] [address] [place], [address] Erythrocyte distribution width (RBC) [Ratio] 14.6 % Normal 11.6-14.6 [facility] Comment on above: Performed By: #### L 100.0100, L500.2500 ####[facility] [address] [place], [address] Hematocrit (Bld) [Volume fraction] 28.3 % Low 37-47 [facility] Comment on above: Performed By: #### L 100.0100, L500.2500 ####[facility] [address] [place], [address] Hemoglobin (Bld) [Mass/Vol] 9.2 g/dL Low 12.0-15. 0 [facility] Comment on above: Performed By: #### L 100.0100, L500.2500 ####[facility] [address] [place], [address] IG% 0.600 Normal 0.0-0.9 [facility] Comment on above: Result Comment: IG% - Immature Granulocytes (promyelocytes, myelocytes andmetamyelocytes) > 1% indicates that a LEFT SHIFT is Present. Performed By: #### L 100.0100, L500.2500 ####[facility] [address] [place], [address] Lymphocytes/100 WBC (Bld) 8.4 % Low 19-41 [facility] Comment on above: Performed By: #### L 100.0100, L500.2500 ####[facility] [address] [place], [address] MCH (RBC) [Entitic mass] 30.7 pg Normal 27.0-32.0 [facility] Comment on above: Performed By: #### L 100.0100, L500.2500 ####[facility] [address] [place], [address] MCHC (RBC) [Mass/Vol] 32.5 g/dL Normal 32-36 [facility] Comment on above: Performed By: #### L 100.0100, L500.2500 ####[facility] [address] [place], [address] MCV (RBC) [Entitic vol] 94.3 fL Normal 81-99 [facility] Comment on above: Performed By: #### L 100.0100, L500.2500 ####[facility] [address] [place], [address] Monocytes/100 WBC (Bld) 4.4 % Normal 0-10 [facility] Comment on above: Performed By: #### L 100.0100, L500.2500 ####[facility] [address] [place], [address] Neutrophils/100 WBC (Bld) 86.4 % High 47-70 [facility] Comment on above: Performed By: #### L 100.0100, L500.2500 ####[facility] [address] [place], [address] Nucleated RBC (Bld) [#/Vol] 0 10*3/uL Normal 0-5 [facility] Comment on above: Performed By: #### L 100.0100, L500.2500 ####[facility] [address] [place], [address] Platelet mean volume (Bld) [Entitic vol] 9.5 fL Normal 6.2-12.0 [facility] Comment on above: Performed By: #### L 100.0100, L500.2500 ####[facility] [address] [place], [address] Platelets (Bld) [#/Vol] 378 10*3/uL Normal 150-450 [facility] Comment on above: Performed By: #### L 100.0100, L500.2500 ####[facility] [address] [place], [address] RBC (Bld) [#/Vol] 3.00 10*6/uL Low 4.2-5.4 [facility] Comment on above: Performed By: #### L 100.0100, L500.2500 ####[facility] [address] [place], [address] RDW SD 50.2 fl High 35.1-43.9 [facility] Comment on above: Performed By: #### L 100.0100, L500.2500 ####[facility] [address] [place], [address] WBC (Bld) [#/Vol] 14.1 10*3/uL High 4.4-11.0 [facility] Comment on above: Performed By: #### L 100.0100, L500.2500 ####[facility] [address] [place], [address] Basic Metabolic Profile (BMP )on 12-05-2024 BUN/CRE 39.0 RATIO High 10-20 [facility] Comment on above: Performed By: #### L 500.2500, L100.0500 ####[facility] [address] [place], [address] Calcium [Mass/Vol] 8.5 mg/dL Normal 7.6-11.0 [facility] Comment on above: Performed By: #### L 500.2500, L100.0500 ####[facility] [address] [place], [address] Chloride [Moles/Vol] 101 mmol/L Normal 98-108 [facility] Comment on above: Performed By: #### L 500.2500, L100.0500 ####[facility] [address] [place], [address] CO2 [Moles/Vol] 22.6 mmol/L Normal 21.0-32.0 [facility] Comment on above: Performed By: #### L 500.2500, L100.0500 ####[facility] [address] [place], [address] Creatinine [Mass/Vol] 0.50 mg/dL Low 0.70-1.20 [facility] Comment on above: Performed By: #### L 500.2500, L100.0500 ####[facility] [address] [place], [address] ECRCL 55.13 ml/min Normal 50-250 [facility] Comment on above: Performed By: #### L 500.2500, L100.0500 ####[facility] [address] [place], [address] GAP 12 Normal 5-15 [facility] Comment on above: Performed By: #### L 500.2500, L100.0500 ####[facility] [address] [place], [address] GFR/1.73 sq M.predicted among non-blacks MDRD (S/P/Bld) [Vol rate/Area] 97 mL/min/{1.73_m2} Normal >60 [facility] Comment on above: Result Comment: mL/m in/1.73m2 CKD-EPI Creatinine Equation (2020) Performed By: #### L 500.2500, L100.0500 ####[facility] [address] [place], [address] Glucose [Mass/Vol] 145 mg/dL High 70-99 [facility] Comment on above: Performed By: #### L 500.2500, L100.0500 ####[facility] [address] [place], [address] Potassium [Moles/Vol] 3.5 mmol/L Normal 3.3-5.1 [facility] Comment on above: Performed By: #### L 500.2500, L100.0500 ####[facility] [address] [place], [address] Sodium [Moles/Vol] 136 mmol/L Normal 133-145 [facility] Comment on above: Performed By: #### L 500.2500, L100.0500 ####[facility] [address] [place], [address] Urea nitrogen [Mass/Vol] 20 mg/dL High 4-19 [facility] Comment on above: Performed By: #### L 500.2500, L100.0500 ####[facility] [address] [place], [address] CBC-Complete Blood Cnt No Di ffon 12-05-2024 Erythrocyte distribution width (RBC) [Ratio] 14.7 % High 11.6-14.6 [facility] Comment on above: Performed By: #### L 500.2500, L100.0500 ####[facility] [address] [place], [address] Hematocrit (Bld) [Volume fraction] 29.4 % Low 37-47 [facility] Comment on above: Performed By: #### L 500.2500, L100.0500 ####[facility] [address] [place], [address] Hemoglobin (Bld) [Mass/Vol] 9.6 g/dL Low 12.0-15. 0 [facility] Comment on above: Performed By: #### L 500.2500, L100.0500 ####[facility] [address] [place], [address] MCH (RBC) [Entitic mass] 30.6 pg Normal 27.0-32.0 [facility] Comment on above: Performed By: #### L 500.2500, L100.0500 ####[facility] [address] [place], [address] MCHC (RBC) [Mass/Vol] 32.7 g/dL Normal 32-36 [facility] Comment on above: Performed By: #### L 500.2500, L100.0500 ####[facility] [address] [place], [address] MCV (RBC) [Entitic vol] 93.6 fL Normal 81-99 [facility] Comment on above: Performed By: #### L 500.2500, L100.0500 ####[facility] [address] [place], [address] Platelet mean volume (Bld) [Entitic vol] 9.0 fL Normal 6.2-12.0 [facility] Comment on above: Performed By: #### L 500.2500, L100.0500 ####[facility] [address] [place], [address] Platelets (Bld) [#/Vol] 385 10*3/uL Normal 150-450 [facility] Comment on above: Performed By: #### L 500.2500, L100.0500 ####[facility] [address] [place], [address] RBC (Bld) [#/Vol] 3.14 10*6/uL Low 4.2-5.4 [facility] Comment on above: Performed By: #### L 500.2500, L100.0500 ####[facility] [address] [place], [address] RDW SD 50.3 fl High 35.1-43.9 [facility] Comment on above: Performed By: #### L 500.2500, L100.0500 ####[facility] [address] [place], [address] WBC (Bld) [#/Vol] 19.9 10*3/uL High 4.4-11.0 [facility] Comment on above: Performed By: #### L 500.2500, L100.0500 ####[facility] [address] [place], [address] Urine Cultureon 12-05-2024 URC Culture exhibits no growth. Normal [facility] Comment on above: Performed By: #### M 100.2200, L400.0001, M100.678 ####[facility] [address] [place], [address] ALP [Catalytic activity/Vol] Ordered By: She Tejada on 12-04-2024 Serum or plasma alkaline phosphatase measurement 100 U/L 35-104 [facility] ALT [Catalytic activity/Vol] Ordered By: She Tejada on 12-04-2024 Serum or plasma alanine aminotransferase (ALT) measurement 20 U/L <35 [facility] Absolute neutrophil countOrd ered By: She Tejada on 12-04-2024 Neutrophils (Bld) [#/Vol] 10.9 10*3/uL High 2.0-7.7 [facility] Activated partial thrombopla stin time (aPTT) in platelet poor plasma by coagulation aOrdered By: She Tejada on 12-04-2024 aPTT Coag (PPP) [Time] 34.8 s 24.1-36.2 [facility] Albumin [Mass/Vol]Ordered By : She Tejada on 12-04-2024 Serum or plasma albumin measurement (mass/volume) 3.1 g/dL Low 3.4-4.8 [facility] Albumin/Globulin [Mass ratio ]Ordered By: She Tejada on 12-04-2024 Serum or plasma albumin/globulin mass ratio 1.0 RATIO 0.9-2.4 [facility] Anion gap in Serum or Plasma Ordered By: She Tejada on 12-04-2024 Anion gap [Moles/Vol] 14 mmol/L 5-15 [facility] Comment on above: Previous reported re sult: 14 Edited by: MARGARITO on 12/04/24:1336 AMENDED REPORT 12/04/241335 GAP previously reported as: 14 BUN/creatinine ratioOrdered By: She Tejada on 12-04-2024 Urea nitrogen/Creatinine [Mass ratio] 34.0 mg/mg High 10-20 [facility] Comment on above: Previous reported re sult: 31.6 RATIOEdited by: MARGARITO on 12/04/24:1336 AMENDED REPORT 12/04/24 133 BUN/CRE previously reported as: 31.6 H RATIO Basophil percentageOrdered B y: She Tejada on 12-04-2024 Basophils/100 WBC (Bld) 0.4 % 0-1 [facility] Bilirubin Test strip Ql (U)O rdered By: She Tejada on 12-04-2024 Bilirubin Ql (U) Negative Negative [facility] Bilirubin, totalOrdered By: She Tejada on 12-04-2024 Bilirubin [Mass/Vol] 0.34 mg/dL Normal 0.00-1.30 [facility] Comment on above: Previous reported re sult: 0.31 mg/dLEdited by: MARGARITO on 12/04/24:1336 AMENDED REPORT 12/04/241335 T BILI previously reported as: 0.31 mg/dL Result Comment: AMENDED REPORT 12/04/241335 T BILI previously reported as: 0.31 mg/dL Performed By: #### L 500.4050, L503.6005, L300.3900, L300.4310, L100.0100, M200.1000 ####[facility] [address] [place], [place], [phone]) Bilirubin, total 0.34 mg/dL 0.00-1.30 [facility] Blood cultureOrdered By: Rosanna Tejada on 12-04-2024 Bacteria identified Cx Nom (Bld) No growth in 5 days. [facility] Blood culture No growth in 5 days. [facility] Brain/Head without Contrasto n 12-04-2024 Brain/Head without Contrast Normal [facility] CBC W/Diff, Automatedon Absolute Lymph 0.90 X10 3/uL Normal 0.83-4.51 [facility] Comment on above: Performed By: #### L 500.4050, L503.6005, L300.3900, L300.4310, L100.0100, M200.1000 ####[facility] [address] [place], [address] Absolute Neut 10.9 X10 3/uL High 2.0-7.7 [facility] Comment on above: Performed By: #### L 500.4050, L503.6005, L300.3900, L300.4310, L100.0100, M200.1000 ####[facility] [address] [place], [address] Basophils/100 WBC (Bld) 0.4 % Normal 0-1 [facility] Comment on above: Performed By: #### L 500.4050, L503.6005, L300.3900, L300.4310, L100.0100, M200.1000 ####[facility] [address] [place], [address] Eosinophils/100 WBC (Bld) 4.3 % Normal 0-5 [facility] Comment on above: Performed By: #### L 500.4050, L503.6005, L300.3900, L300.4310, L100.0100, M200.1000 ####[facility] [address] [place], [address] Erythrocyte distribution width (RBC) [Ratio] 14.6 % Normal 11.6-14.6 [facility] Comment on above: Performed By: #### L 500.4050, L503.6005, L300.3900, L300.4310, L100.0100, M200.1000 ####[facility] [address] [place], [address] Hematocrit (Bld) [Volume fraction] 32.5 % Low 37-47 [facility] Comment on above: Performed By: #### L 500.4050, L503.6005, L300.3900, L300.4310, L100.0100, M200.1000 ####[facility] [address] [place], [address] Hemoglobin (Bld) [Mass/Vol] 10.4 g/dL Low 12.0-15. 0 [facility] Comment on above: Performed By: #### L 500.4050, L503.6005, L300.3900, L300.4310, L100.0100, M200.1000 ####[facility] [address] [place], [address] IG% 0.700 Normal 0.0-0.9 [facility] Comment on above: Result Comment: IG% - Immature Granulocytes (promyelocytes, myelocytes andmetamyelocytes) > 1% indicates that a LEFT SHIFT is Present. Performed By: #### L 500.4050, L503.6005, L300.3900, L300.4310, L100.0100, M200.1000 ####[facility] [address] [place], [address] Lymphocytes/100 WBC (Bld) 6.7 % Low 19-41 [facility] Comment on above: Performed By: #### L 500.4050, L503.6005, L300.3900, L300.4310, L100.0100, M200.1000 ####[facility] [address] [place], [address] MCH (RBC) [Entitic mass] 30.6 pg Normal 27.0-32.0 [facility] Comment on above: Performed By: #### L 500.4050, L503.6005, L300.3900, L300.4310, L100.0100, M200.1000 ####[facility] [address] [place], [address] MCHC (RBC) [Mass/Vol] 32.0 g/dL Normal 32-36 [facility] Comment on above: Performed By: #### L 500.4050, L503.6005, L300.3900, L300.4310, L100.0100, M200.1000 ####[facility] [address] [place], [address] MCV (RBC) [Entitic vol] 95.6 fL Normal 81-99 [facility] Comment on above: Performed By: #### L 500.4050, L503.6005, L300.3900, L300.4310, L100.0100, M200.1000 ####[facility] [address] [place], [address] Monocytes/100 WBC (Bld) 6.6 % Normal 0-10 [facility] Comment on above: Performed By: #### L 500.4050, L503.6005, L300.3900, L300.4310, L100.0100, M200.1000 ####[facility] [address] [place], [address] Neutrophils/100 WBC (Bld) 81.3 % High 47-70 [facility] Comment on above: Performed By: #### L 500.4050, L503.6005, L300.3900, L300.4310, L100.0100, M200.1000 ####[facility] [address] [place], [address] Nucleated RBC (Bld) [#/Vol] 0 10*3/uL Normal 0-5 [facility] Comment on above: Performed By: #### L 500.4050, L503.6005, L300.3900, L300.4310, L100.0100, M200.1000 ####[facility] [address] [place], [address] Platelet mean volume (Bld) [Entitic vol] 9.3 fL Normal 6.2-12.0 [facility] Comment on above: Performed By: #### L 500.4050, L503.6005, L300.3900, L300.4310, L100.0100, M200.1000 ####[facility] [address] [place], [address] Platelets (Bld) [#/Vol] 439 10*3/uL Normal 150-450 [facility] Comment on above: Performed By: #### L 500.4050, L503.6005, L300.3900, L300.4310, L100.0100, M200.1000 ####[facility] [address] [place], [address] RBC (Bld) [#/Vol] 3.40 10*6/uL Low 4.2-5.4 [facility] Comment on above: Performed By: #### L 500.4050, L503.6005, L300.3900, L300.4310, L100.0100, M200.1000 ####[facility] [address] [place], [address] RDW SD 50.7 fl High 35.1-43.9 [facility] Comment on above: Performed By: #### L 500.4050, L503.6005, L300.3900, L300.4310, L100.0100, M200.1000 ####[facility] [address] [place], [address] WBC (Bld) [#/Vol] 13.4 10*3/uL High 4.4-11.0 [facility] Comment on above: Performed By: #### L 500.4050, L503.6005, L300.3900, L300.4310, L100.0100, M200.1000 ####[facility] [address] [place], [address] CT Chest, Abd, Pel w/Contras ton 12-04-2024 CT Chest, Abd, Pel w/Contrast Normal [facility] Calcium oxalate crystals LM Ql (Urine sed)Ordered By: She Tejada on 12-04-2024 Urine Calcium Oxalate Crystals 1+ /hpf [facility] Calcium oxalate crystals detection in urine sediment by light microscopy 1+ /hpf [facility] Calcium oxalate crystals det ection in urine sediment by light microscopyOrdered By: She Tejada on 12-04-2024 Calcium oxalate crystals LM Ql (Urine sed) 1+ /hpf [facility] Carbon dioxide, total [Moles /volume] in Central venous bloodOrdered By: She Tejada on 12-04-2024 CO2 [Moles/Vol] 21.6 mmol/L Normal 21.0-32.0 [facility] Comment on above: Performed By: #### L 500.4050, L503.6005, L300.3900, L300.4310, L100.0100, M200.1000 ####[facility] [address] [place], [place], [phone] Chloride assayOrdered By: Tono Tejada on 12-04-2024 Chloride [Moles/Vol] 98 mmol/L Normal 98-108 [facility] Comment on above: Previous reported re sult: 99 mmol/LEdited by: MARGARITO on 12/04/24:1336 AMENDED REPORT 12/04/241335 CL previously reported as: 99 mmol/L Result Comment: AMENDED REPORT 12/04/241335 CL previously reported as: 99 mmol/L Performed By: #### L 500.4050, L503.6005, L300.3900, L300.4310, L100.0100, M200.1000 ####[facility] [address] [place], [address] Comprehensive Metabolic Prof ilon 12-04-2024 ALK PHOS 100 U/L Normal 35-104 [facility] Comment on above: Result Comment: AMENDED REPORT 12/04/241335 ALK P previously reported as: 95 U/L Performed By: #### L 500.4050, L503.6005, L300.3900, L300.4310, L100.0100, M200.1000 ####[facility] [address] [place], [place], [phone] BUN/CRE 34.0 RATIO High 10-20 [facility] Comment on above: Result Comment: AMENDED REPORT 12/04/241335 BUN/CRE previously reported as: 31.6 H RATIO Performed By: #### L 500.4050, L503.6005, L300.3900, L300.4310, L100.0100, M200.1000 ####[facility] [address] [place], [address] ECRCL 57.27 ml/min Normal 50-250 [facility] Comment on above: Performed By: #### L 500.4050, L503.6005, L300.3900, L300.4310, L100.0100, M200.1000 ####[facility] [address] [place], [address] GAP 14 Normal 5-15 [facility] Comment on above: Result Comment: AMENDED REPORT 12/04/241335 GAP previously reported as: 14 Performed By: #### L 500.4050, L503.6005, L300.3900, L300.4310, L100.0100, M200.1000 ####[facility] [address] [place], [address] T PROT 6.1 g/dL Normal 5.9-8.4 [facility] Comment on above: Result Comment: AMENDED REPORT 12/04/241335 T PROT previously reported as: 6.2 g/dL Performed By: #### L 500.4050, L503.6005, L300.3900, L300.4310, L100.0100, M200.1000 ####[facility] [address] [place], [address] Comprehensive Metabolic Prof ilOrdered By: She Tejada on 12-04-2024 AST [Catalytic activity/Vol] 30 U/L Normal <=31 [facility] Comment on above: Hemolysis present, R esults could be affected. Hemolysis present, Results could be affected. Hemolysis present, Results could be affected. Previous reported result: 48 U/LEdited by: MARGARITO on 12/04/24:1336 AMENDED REPORT 12/04/241335 AST previously reported as: 48 H U/L Hemolysis present, Results could be affected. Result Comment: Hemo lysis present, Results??could be affected.??Hemolysis present, Results??could be affected.??Hemolysis present, Results??could be affected.?? AMENDED REPORT 12/04/24 3036 AST previously reported as: 48 H U/LHemolysis present, Results??could be affected.?? Performed By: #### L 500.4050, L503.6005, L300.3900, L300.4310, L100.0100, M200.1000 ####[facility] [address] [place], [address] Consultation - Intensiviston 12-04-2024 Consultation - Rn Urology Normal [facility] Emergency Department Summary on 12-04-2024 Emergency Department Summary Normal [facility] Eosinophil percentageOrdered By: She Tejada on 12-04-2024 Eosinophils/100 WBC (Bld) 4.3 % 0-5 [facility] Epithelial cells.renal LM.HP F (Urine sed) [#/Area]Ordered By: She Tejada on 12-04-2024 Urine Renal Epithelial Cells 0-5 SEEN /hpf 0-5 [facility] Epithelial cells.squamous LM Ql (Urine sed)Ordered By: She Tejada on 12-04-2024 Epithelial cells.squamous LM.HPF (Urine sed) [#/Area] 0 /[HPF] 5-10 [facility] Erythrocyte distribution wid th ratioOrdered By: She Tejada on 12-04-2024 Erythrocyte distribution width (RBC) [Ratio] 14.6 % 11.6-14.6 [facility] Erythrocyte distribution wid th standard deviationOrdered By: She Tejada on 12-04-2024 Erythrocyte distribution width (RBC) [Entitic vol] 50.7 fL High 35.1-43.9 [facility] Estimation of creatinine mary aranceOrdered By: She Tejada on 12-04-2024 Estimated Creatinine Clearance Calc 57.27 ml/min 50-250 [facility] GFR/1.73 sq M.predicted hallei g non-blacks MDRD (S/P/Bld) [Vol rate/Area]Ordered By: She Tejada on 12-04-2024 Estimated GFR (MDRD) Non-Af Amer 92 >60 [facility] Comment on above: mL/min/1.73m2 CKD-EP I Creatinine Equation (2020) Glucose Ql (U)Ordered By: Tono Tejada on 12-04-2024 Urine Glucose (UA) Normal mg/dl Normal [facility] H AND P Exam - Hospitaliston 12-04-2024 H&P Exam - Hospitalist Normal [facility] Hematocrit Auto (Bld) [Volum e fraction]Ordered By: She Tejada on 12-04-2024 Hematocrit (Bld) [Volume fraction] 32.5 % Low 37-47 [facility] Hemoglobin measurementOrdere d By: She Tejada on 12-04-2024 Hemoglobin (Bld) [Mass/Vol] 10.4 g/dL Low 12.0-15. 0 [facility] Immature granulocytes/100 WB C Auto (Bld)Ordered By: She Tejada on 12-04-2024 Immature granulocytes/100 WBC (Bld) 0.700 % 0.0-0.9 [facility] Comment on above: IG% - Immature Granu locytes (promyelocytes, myelocytes and metamyelocytes) > 1% indicates that a LEFT SHIFT is Present. Influenza virus A and B and SARS-CoV-2 (COVID-19) and Respiratory syncytial virus RNAOrdered By: She Tejada on 12-04-2024 SARS-CoV-2 (COVID-19) RNA TYLER+probe Ql (Unsp spec) Influenzae A Abnormal [facility] SARS-CoV-2 (COVID-19) RNA TYLER+probe Ql (Unsp spec) Influenzae A Abnormal [facility] Influenza virus A and B and SARS-CoV-2 (COVID-19) and Respiratory syncytial virus RNA Influenzae A Abnormal [facility] International normalized rat io (INR) calculationOrdered By: She Tejada on 12-04-2024 INR Coag (Bld) [Relative time] 1.3 {INR} [facility] International normalized ratio (INR) calculation 1.3 [facility] Ketones Test strip Ql (U)Ord ered By: She Tejada on 03-07-2025 Ketones Ql (U) Negative Negative [facility] L509.7001on 12-04-2024 Procalcitonin 2.62 ng/mL High <=0.10 [facility] Comment on above: Result Comment: Inte rpretation:<0.10-0.25 ng/mL: Antibiotic therapy discouraged. Bacterialinfection unlikely.0.25-0.50 ng/mL: Antibiotic therapy encouraged. Bacterialinfection possible.>0.50 ng/mL: Antibiotic therapy strongly encouraged.Suggestive of presence of bacterial infection.PCT should always be interpreted in the clinical context ofthe patient. Therefore, clinicians should use the PCTresults in conjunction with other laboratory findings andclinical signs of the patient. Performed By: #### L 509.7001 ####[facility] [address] [place], [place], [address] Lactic Acidon 12-04-2024 Lactate [Moles/Vol] 1.6 mmol/L Normal 0.0-2.0 [facility] Comment on above: Order Comment: Y Performed By: #### L 500.4050, L503.6005, L300.3900, L300.4310, L100.0100, M200.1000 ####[facility] [address] [place], [place], [address] Lactic acid measurementOrder ed By: She Tejada on 12-04-2024 Lactate [Moles/Vol] 1.6 mmol/L 0.0-2.0 [facility] Lactic acid measurement 1.6 mmol/L 0.0-2.0 [facility] Lymphocytes Auto (Unsp spec) [#/Vol]Ordered By: She Tejada on 12-04-2024 Lymphocytes (Bld) [#/Vol] 0.90 10*3/uL 0.83-4.5 1 [facility] Lymphocytes/100 WBC Auto (Un sp spec)Ordered By: She Tejada on 12-04-2024 Lymphocytes/100 WBC (Bld) 6.7 % Low 19-41 [facility] M100.678on 12-04-2024 M100.678 Normal [facility] Comment on above: Performed By: #### M 100.2200, L400.0001, M100.678 ####[facility] [address] [place], [address] MCV (mean corpuscular volume ) determinationOrdered By: She Tejada on 12-04-2024 MCV (RBC) [Entitic vol] 95.6 fL 81-99 [facility] Mean corpuscular hemoglobin (MCH) determinationOrdered By: She Tejada on 12-04-2024 MCH (RBC) [Entitic mass] 30.6 pg 27.0-32.0 [facility] Mean corpuscular hemoglobin concentration (MCHC) determinationOrdered By: She Tejada on 12-04-2024 MCHC (RBC) [Mass/Vol] 32.0 g/dL 32-36 [facility] Mean platelet volume determi nationOrdered By: She Tejada on 12-04-2024 Platelet mean volume (Bld) [Entitic vol] 9.3 fL 6.2-12.0 [facility] Microscopic analysis of urin e for red blood cells (RBC)Ordered By: She Tejada on 12-04-2024 Urine RBC 50-100 SEEN /hpf 0-5 [facility] Monocyte percentageOrdered B y: She Tejada on 12-04-2024 Monocytes/100 WBC (Bld) 6.6 % 0-10 [facility] Mucus LM Ql (Urine sed)Order ed By: She Tejada on 12-04-2024 Mucus Ql (Urine sed) 0 SEEN /hpf [facility] Neutrophil percentageOrdered By: She Tejada on 12-04-2024 Neutrophils/100 WBC (Bld) 81.3 % High 47-70 [facility] Nitrite Test strip Ql (U)Ord ered By: She Tejada on 12-04-2024 Nitrite Ql (U) Negative Negative [facility] No Panel InformationOrdered By: She Tejada on 12-04-2024 30 U/L <32 [facility] No Panel InformationOrdered By: Shiv Andrews on 12-04-2024 2.62 ng/mL High <0.11 [facility] Nucleated red blood cell per centageOrdered By: She Tejada on 12-04-2024 Nucleated RBC/100 WBC (Bld) [Ratio] 0 % 0-5 [facility] Partial Thromboplast Timeon 12-04-2024 aPTT Coag (Bld) [Time] 34.8 s Normal 24.1-36.2 [facility] Comment on above: Performed By: #### L 500.4050, L503.6005, L300.3900, L300.4310, L100.0100, M200.1000 ####[facility] [address] [place], [place], [phone] Platelet countOrdered By: Tono Tejada on 12-04-2024 Platelets (Bld) [#/Vol] 439 10*3/uL 150-450 [facility] Potassium measurement (mass/ volume)Ordered By: She Tejada on 12-04-2024 Potassium [Moles/Vol] 4.4 mmol/L Normal 3.3-5.1 [facility] Comment on above: Hemolysis present, R esults could be affected. Previous reported result: 5.1 mmol/LEdited by: MARGARITO on 12/04/24:1336 AMENDED REPORT 12/04/24 1336 K previously reported as: 5.1 mmol/L Hemolysis present, Results could be affected. Result Comment: Hemo lysis present, Results??could be affected.?? AMENDED REPORT 12/04/24 1336 K previously reported as: 5.1 mmol/LHemolysis present, Results??could be affected.?? Performed By: #### L 500.4050, L503.6005, L300.3900, L300.4310, L100.0100, M200.1000 ####[facility] [address] [place], [place], [phone] Protein Test strip Ql (U)Ord ered By: She Tejada on 12-04-2024 Protein Ql (U) 30 mg/dl High Negative [facility] Prothrombin Time w/INRon INR Coag (PPP) [Relative time] 1.3 {INR} Normal [facility] Comment on above: Performed By: #### L 500.4050, L503.6005, L300.3900, L300.4310, L100.0100, M200.1000 ####[facility] [address] [place], [place], [phone] PT Coag (PPP) [Time] 16.2 s High 11.7-14.9 [facility] Comment on above: Performed By: #### L 500.4050, L503.6005, L300.3900, L300.4310, L100.0100, M200.1000 ####[facility] [address] [place], [place], [phone] Prothrombin timeOrdered By: She Tejada on 12-04-2024 PT Coag (PPP) [Time] 16.2 s High 11.7-14.9 [facility] Prothrombin time 16.2 SECONDS High 11.7-14.9 [facility] RBC Auto (Bld) [#/Vol]Ordere d By: She Tejada on 12-04-2024 RBC (Bld) [#/Vol] 3.40 10*6/uL Low 4.2-5.4 [facility] Serum creatinine measurement (mass/volume)Ordered By: She Tejada on 12-04-2024 Creatinine [Mass/Vol] 0.56 mg/dL Low 0.70-1.20 [facility] Comment on above: Previous reported re sult: 0.61 mg/dLEdited by: PRABHAKARS on 12/04/24:1336 AMENDED REPORT 12/04/241335 CREAT,SERUM previously reported as: 0.61 L mg/dL Result Comment: AMENDED REPORT 12/04/241335 CREAT,SERUM previously reported as: 0.61 L mg/dL Performed By: #### L 500.4050, L503.6005, L300.3900, L300.4310, L100.0100, M200.1000 ####[facility] [address] [place], [place], [address] Serum globulin measurementOr dered By: She Tejada on 12-04-2024 Globulin (S) [Mass/Vol] 3.0 g/dL Normal 2.2-4.2 [facility] Comment on above: Previous reported re sult: 3.2 g/dLEdited by: MARGARITO on 12/04/24:1336 AMENDED REPORT 12/04/241335 GLOB previously reported as: 3.2 g/dL Result Comment: AMENDED REPORT 12/04/241335 GLOB previously reported as: 3.2 g/dL Performed By: #### L 500.4050, L503.6005, L300.3900, L300.4310, L100.0100, M200.1000 ####[facility] [address] [place], [place], [address] Serum globulin measurement 3.0 g/dL 2.2-4.2 [facility] Serum glucose measurement (m ass/volume)Ordered By: She Tejada on 12-04-2024 Glucose [Mass/Vol] 136 mg/dL High 70-99 [facility] Comment on above: Previous reported re sult: 132 mg/dLEdited by: MARGARITO on 12/04/24:1336 AMENDED REPORT 12/04/241335 GLU previously reported as: 132 H mg/dL Result Comment: AMENDED REPORT 12/04/241335 GLU previously reported as: 132 H mg/dL Performed By: #### L 500.4050, L503.6005, L300.3900, L300.4310, L100.0100, M200.1000 ####[facility] [address] [place], [address] Serum or plasma alanine phillips otransferase (ALT) measurementOrdered By: She Tejada on 12-04-2024 ALT [Catalytic activity/Vol] 20 U/L Normal <=34 [facility] Comment on above: Hemolysis present, R esults could be affected. Hemolysis present, Results could be affected. Hemolysis present, Results could be affected. Previous reported result: 23 U/LEdited by: MARGARITO on 12/04/24:1336 AMENDED REPORT 12/04/246 ALT previously reported as: 23 U/L Hemolysis present, Results could be affected. Result Comment: Hemo lysis present, Results??could be affected.??Hemolysis present, Results??could be affected.??Hemolysis present, Results??could be affected.?? AMENDED REPORT 12/04/246 ALT previously reported as: 23 U/LHemolysis present, Results??could be affected.?? Performed By: #### L 500.4050, L503.6005, L300.3900, L300.4310, L100.0100, M200.1000 ####[facility] [address] [place], [phone] Serum or plasma albumin abhinav urement (mass/volume)Ordered By: She Tejada on 12-04-2024 Albumin [Mass/Vol] 3.1 g/dL Low 3.4-4.8 [facility] Comment on above: Performed By: #### L 500.4050, L503.6005, L300.3900, L300.4310, L100.0100, M200.1000 ####[facility] [address] [place], [place], [phone](530) Serum or plasma albumin/glob ulin mass ratioOrdered By: She Tejada on 12-04-2024 Albumin/Globulin [Mass ratio] 1.0 {ratio} Normal 0.9-2.4 [facility] Comment on above: Performed By: #### L 500.4050, L503.6005, L300.3900, L300.4310, L100.0100, M200.1000 ####[facility] [address] [place], [place], [phone]) Serum or plasma alkaline jose sphatase measurementOrdered By: She Tejada on 12-04-2024 ALP [Catalytic activity/Vol] 100 U/L 35-104 [facility] Comment on above: Previous reported re sult: 95 U/LEdited by: MARGARITO on 12/04/24:1336 AMENDED REPORT 12/04/241335 ALK P previously reported as: 95 U/L Serum or plasma calcium abhinav urement (mass/volume)Ordered By: She Tejada on 12-04-2024 Calcium [Mass/Vol] 8.5 mg/dL Normal 7.6-11.0 [facility] Comment on above: Previous reported re sult: 8.2 mg/dLEdited by: MARGARITO on 12/04/24:1336 AMENDED REPORT 12/04/241335 CA previously reported as: 8.2 mg/dL Result Comment: AMENDED REPORT 12/04/241335 CA previously reported as: 8.2 mg/dL Performed By: #### L 500.4050, L503.6005, L300.3900, L300.4310, L100.0100, M200.1000 ####[facility] [address] [place], [place], [phone] Serum or plasma urea nitroge n measurement (mass/volume)Ordered By: She Tejada on 12-04-2024 Urea nitrogen [Mass/Vol] 19 mg/dL Normal 4-19 [facility] Comment on above: Performed By: #### L 500.4050, L503.6005, L300.3900, L300.4310, L100.0100, M200.1000 ####[facility] [address] [place], [place], [phone] Sodium levelOrdered By: Rick Tejada on 12-04-2024 Sodium [Moles/Vol] 134 mmol/L Normal 133-145 [facility] Comment on above: Performed By: #### L 500.4050, L503.6005, L300.3900, L300.4310, L100.0100, M200.1000 ####[facility] [address] [place], [address] Total proteinOrdered By: Rosanna Tejada on 12-04-2024 Protein [Mass/Vol] 6.1 g/dL 5.9-8.4 [facility] Comment on above: Previous reported re sult: 6.2 g/dLEdited by: MARGARITO on 12/04/24:1336 AMENDED REPORT 12/04/24 1336 T PROT previously reported as: 6.2 g/dL Total protein 6.1 g/dL 5.9-8.4 [facility] Transitional cells LM Ql (Ur ine sed)Ordered By: She Tejada on 12-04-2024 Urine Transitional Epithelial Cells 0-5 SEEN /hpf 0-5 [facility] Transitional cells detection in urine sediment by light microscopyOrdered By: She Tejada on 12-04-2024 Transitional cells LM Ql (Urine sed) 0-5 SEEN /hpf 0-5 [facility] Transitional cells detection in urine sediment by light microscopy 0-5 SEEN /hpf 0-5 [facility] Urinalysis, Completeon 12-04 CA OX CRYSTAL 1+ /hpf Normal [facility] Comment on above: Order Comment: JO CTOR TO SPECIFY Performed By: #### M 100.2200, L400.0001, M100.678 ####[facility] [address] [place], [address] EPI,RENAL 0-5 SEEN Normal 0-5 [facility] Comment on above: Order Comment: JO CTOR TO SPECIFY Performed By: #### M 100.2200, L400.0001, M100.678 ####[facility] [address] [place], [address] EPI,TRANSITION 0-5 SEEN Normal 0-5 [facility] Comment on above: Order Comment: JO CTOR TO SPECIFY Performed By: #### M 100.2200, L400.0001, M100.678 ####[facility] [address] [place], [address] RBC 50-100 SEEN Normal 0-5 [facility] Comment on above: Order Comment: JO CTOR TO SPECIFY Performed By: #### M 100.2200, L400.0001, M100.678 ####[facility] [address] [place], [address] WBC 0-5 SEEN Normal 0-5 [facility] Comment on above: Order Comment: JO CTOR TO SPECIFY Performed By: #### M 100.2200, L400.0001, M100.678 ####[facility] [address] [place], [address] BACTERIA 0 SEEN Normal None Seen [facility] Comment on above: Order Comment: JO CTOR TO SPECIFY Performed By: #### M 100.2200, L400.0001, M100.678 ####[facility] [address] [place], [address] EPI,SQUAMOUS 0 SEEN Normal 5-10 [facility] Comment on above: Order Comment: JO CTOR TO SPECIFY Performed By: #### M 100.2200, L400.0001, M100.678 ####[facility] [address] [place], [address] Mucus Ql (Urine sed) 0 SEEN Normal [facility] Comment on above: Order Comment: JO CTOR TO SPECIFY Performed By: #### M 100.2200, L400.0001, M100.678 ####[facility] [address] [place], [address] Urine blood detectionOrdered By: She Tejada on 12-04-2024 Urine Occult Blood 250 /ul High Negative [facility] Urine clarityOrdered By: Rosanna Tejada on 12-04-2024 Clarity (U) Clear Clear [facility] Urine color determinationOrd ered By: She Tejada on 12-04-2024 Color (U) Yellow Yellow [facility] Urine cultureOrdered By: Rosanna Tejada on 12-04-2024 Bacteria identified Cx Nom (U) Culture exhibits no growth. [facility] Urine culture Culture exhibits no growth. [facility] Urine leukocyte esterase det ection by dipstickOrdered By: She Tejada on 12-04-2024 Leukocyte esterase Test strip Ql (U) 25 /ul High Negative [facility] Urine pHOrdered By: She britt on 12-04-2024 pH (U) 6.0 [pH] 5.0 - 8.0 [facility] Urine sediment bacteria coun t by microscopy (number/high power field)Ordered By: She Tejada on 12-04-2024 Bacteria LM.HPF (Urine sed) [#/Area] 0 /[HPF] None Seen [facility] Urine sediment renal epithel ial cell count by microscopy (number/high power field)Ordered By: She Tejada on 12-04-2024 Epithelial cells.renal LM.HPF (Urine sed) [#/Area] 0 /[HPF] 0-5 [facility] Urine specific gravity measu rementOrdered By: She Tejaad on 12-04-2024 Specific gravity (U) [Rel density] 1.025 1.002-1.03 0 [facility] Urobilinogen Ql (U)Ordered B y: She Tejada on 12-04-2024 Urine Urobilinogen Normal mg/dl Normal [facility] White blood cell (WBC) count Ordered By: She Tejada on 12-04-2024 WBC (Bld) [#/Vol] 13.4 10*3/uL High 4.4-11.0 [facility] White blood cell countOrdere d By: She Tejada on 12-04-2024 Urine WBC 0-5 SEEN /hpf 0-5 [facility] aPTT Coag (PPP) [Time]Ordere d By: She Tejada on 12-04-2024 aPTT Coag (Bld) [Time] 34.8 s 24.1-36.2 [facility] Activated partial thromboplastin time (aPTT) in platelet poor plasma by coagulation a 34.8 Seconds 24.1-36.2 [facility] .Auto Diffon 11-28-2024 Basophil, Absolute 0.1 10 3/mcL Normal 0.0-0.2 [facility] Comment on above: Performed By: #### C BC, MORPH, MG, DIFF #### [address] [address] Basophils/100 WBC (Bld) 0.7 % Normal 0.0-2.5 [facility] Comment on above: Performed By: #### C BC, MORPH, MG, DIFF #### [address] [address] Eosinophil, Absolute 0.2 10 3/mcL Normal 0.0-0.7 [facility] Comment on above: Performed By: #### C BC, MORPH, MG, DIFF #### [address] [address] Eosinophils/100 WBC (Bld) 2.5 % Normal 0.0-7.0 [facility] Comment on above: Performed By: #### C BC, MORPH, MG, DIFF #### [address] [address] Lymphocyte, Absolute 2.1 10 3/mcL Normal 0.9-4.3 [facility] Comment on above: Performed By: #### C BC, MORPH, MG, DIFF #### [address] [address] Lymphocytes/100 WBC (Bld) 21.2 % Normal 20.0-40.0 [facility] Comment on above: Performed By: #### C BC, MORPH, MG, DIFF #### [address] [address] Monocyte, Absolute 1.0 10 3/mcL Normal 0.1-1.4 [facility] Comment on above: Performed By: #### C BC, MORPH, MG, DIFF #### [address] [address] Monocytes/100 WBC (Bld) 9.9 % Normal 2.0-13.0 [facility] Comment on above: Performed By: #### C BC, MORPH, MG, DIFF #### [address] [address] Neutrophils/100 WBC (Bld) 65.7 % Normal 50.0-75.0 [facility] Comment on above: Performed By: #### C BC, MORPH, MG, DIFF #### [address] [address] .NEUABSon 11-28-2024 Neutrophil, Absolute 6.5 10 3/mcL Normal 2.3-8.1 [facility] Comment on above: Performed By: #### C BC, MORPH, MG, DIFF #### [place] [address] CBCon 11-28-2024 Erythrocyte distribution width (RBC) [Ratio] 15.0 % Normal 11.5-15.5 [facility] Comment on above: Performed By: #### C BC, MORPH, MG, DIFF #### [place] [address] Hematocrit (Bld) [Volume fraction] 29.0 % Low 34.0-46.0 [facility] Comment on above: Performed By: #### C BC, MORPH, MG, DIFF #### [address] [address] Hgb 9.8 G/dL Low 12.0-16.0 [facility] Comment on above: Performed By: #### C BC, MORPH, MG, DIFF #### [place] [id number] MCH (RBC) [Entitic mass] 31.6 pg Normal 27.0-33.0 [facility] Comment on above: Performed By: #### C BC, MORPH, MG, DIFF #### [place] [address] MCHC 33.9 G/dL Normal 32.0-36.0 [facility] Comment on above: Performed By: #### C BC, MORPH, MG, DIFF #### [address] [address] MCV (RBC) [Entitic vol] 93.2 fL Normal 80.0-99.0 [facility] Comment on above: Performed By: #### C BC, MORPH, MG, DIFF #### [place] [id number] [place], [place] [address] Platelet 284 10 3/mcL Normal 150-450 [facility] Comment on above: Performed By: #### C BC, MORPH, MG, DIFF #### [address] [address] Platelet mean volume (Bld) [Entitic vol] 7.4 fL Normal 6.6-10.5 [facility] Comment on above: Performed By: #### C BC, MORPH, MG, DIFF #### [address] [address] RBC 3.11 10 6/mcL Low 4.10-5.30 [facility] Comment on above: Performed By: #### C BC, MORPH, MG, DIFF #### [address] [address] WBC 9.9 10 3/mcL Normal 4.5-10.8 [facility] Comment on above: Performed By: #### C BC, MORPH, MG, DIFF #### [address] [address] LABORATORYOrdered By: SYSTEM SYSTEM on 11-28-2024 Basophils (Bld) [#/Vol] 0.1 103/mcL Normal 0.0 - 0.2 10^3/mcL AO Workflow SS Basophils/100 WBC (Bld) 0.7 % Normal 0.0 - 2.5 % AO Workflow SS Eosinophil, Absolute 0.2 103/mcL Normal 0.0 - 0 .7 10^3/mcL AO Workflow SS Eosinophils/100 WBC (Bld) 2.5 % Normal 0. 0 - 7.0 % AO Workflow SS Erythrocyte distribution width (RBC) [Ratio] 15.0 % Normal 11.5 - 15.5 % AO Workflow SS Hematocrit (Bld) [Volume fraction] 29.0 % Low 34.0 - 46.0 % AO Workflow SS Hemoglobin (Bld) [Mass/Vol] 9.8 G/dL Low 12.0 - 16.0 G/dL AO Workflow SS Lymphocytes (Bld) [#/Vol] 2.1 103/mcL Normal 0. 9 - 4.3 10^3/mcL AO Workflow SS Lymphocytes/100 WBC (Bld) 21.2 % Normal 20 .0 - 40.0 % AO Workflow SS Magnesium [Mass/Vol] 1.8 mg/dL Normal 1.8 - 2 .4 mg/dL AO ADM SS MCH (RBC) [Entitic mass] 31.6 pg Normal 27. 0 - 33.0 pg AO Workflow SS MCHC 33.9 G/dL Normal 32.0 - 36.0 G/dL AO Workflow SS MCV (RBC) [Entitic vol] 93.2 fL Normal 80.0 - 99.0 fL AO Workflow SS Monocytes (Bld) [#/Vol] 1.0 103/mcL Normal 0.1 - 1.4 10^3/mcL AO Workflow SS Monocytes/100 WBC (Bld) 9.9 % Normal 2.0 - 13.0 % AO Workflow SS Neutrophils (Bld) [#/Vol] 6.5 103/mcL Normal 2. 3 - 8.1 10^3/mcL AO Workflow SS Neutrophils/100 WBC (Bld) 65.7 % Normal 50 .0 - 75.0 % AO Workflow SS Platelet mean volume (Bld) [Entitic vol] 7.4 fL Normal 6.6 - 10.5 fL AO Workflow SS Platelets (Bld) [#/Vol] 284 103/mcL Normal 150 - 450 10^3/mcL AO Workflow SS RBC (Bld) [#/Vol] 3.11 106/mcL Low 4.10 - 5.30 10^6/mcL AO Workflow SS WBC (Bld) [#/Vol] 9.9 103/mcL Normal 4.5 - 10.8 10^3/mcL AO Workflow SS MGon 11-28-2024 Magnesium [Mass/Vol] 1.8 mg/dL Normal 1.8-2.4 [facility] Comment on above: Performed By: #### C BC, MORPH, MG, DIFF #### [place] [address] .Auto Diffon 11-27-2024 Basophil, Absolute 0.1 10 3/mcL Normal 0.0-0.2 [facility] Comment on above: Performed By: #### C BC, MORPH, MG, DIFF #### [address] [address] Basophils/100 WBC (Bld) 0.7 % Normal 0.0-2.5 [facility] Comment on above: Performed By: #### C BC, MORPH, MG, DIFF #### [address] [address] Eosinophil, Absolute 0.3 10 3/mcL Normal 0.0-0.7 [facility] Comment on above: Performed By: #### C BC, MORPH, MG, DIFF #### [address] [address] Eosinophils/100 WBC (Bld) 2.6 % Normal 0.0-7.0 [facility] Comment on above: Performed By: #### C BC, MORPH, MG, DIFF #### [address] [address] Lymphocyte, Absolute 1.8 10 3/mcL Normal 0.9-4.3 [facility] Comment on above: Performed By: #### C BC, MORPH, MG, DIFF #### [address] [address] Lymphocytes/100 WBC (Bld) 17.2 % Low 20.0-40.0 [facility] Comment on above: Performed By: #### C BC, MORPH, MG, DIFF #### [address] [address] Monocyte, Absolute 1.2 10 3/mcL Normal 0.1-1.4 [facility] Comment on above: Performed By: #### C BC, MORPH, MG, DIFF #### [address] [address] Monocytes/100 WBC (Bld) 11.9 % Normal 2.0-13.0 [facility] Comment on above: Performed By: #### C BC, MORPH, MG, DIFF #### [address] [address] Neutrophils/100 WBC (Bld) 67.6 % Normal 50.0-75.0 [facility] Comment on above: Performed By: #### C BC, MORPH, MG, DIFF #### [address] [address] .GFRon 11-27-2024 Estimated Glomerular Filtration Rate 96 ml/min/1.73sqm Normal [facility] Comment on above: Result Comment: Stages of Chronic Kidney Disease (CKD) Stage Description eGFR(ml/min/1.73 sq.m.) CKD 1 Normal kidney function or >=90 normal kindney function with possible kidney damage (ex. Proteinuria) CKD 2 Kidney damage with mild loss 60-89 of kidney function CKD 3a Mild to moderate loss of kidney 45-59 function CKD 3b Moderate to severe loss of 30-44 of kindey function CKD 4 Severe loss of kidney function 15-29 CKD 5 Kidney failure <15 Note: (go live 2024) the eGFR calculation was updated to the 2020 CKD-EPI creatinine equation without a race factor to calculate the eGFR results. Performed By: #### C BC, MORPH, MG, DIFF #### [address] [address] .NEUABSon 11-27-2024 Neutrophil, Absolute 7.0 10 3/mcL Normal 2.3-8.1 [facility] Comment on above: Performed By: #### C BC, MORPH, MG, DIFF #### [address] [address] BMPon 11-27-2024 BUN/Creatinine Ratio 31 ratio High 7-27 [facility] Comment on above: Performed By: #### C BC, MORPH, MG, DIFF #### [address] [address] Calcium [Mass/Vol] 8.8 mg/dL Normal 8.4-10.2 [facility] Comment on above: Performed By: #### C BC, MORPH, MG, DIFF #### [address] [address] Chloride [Moles/Vol] 109 mmol/L High 98-107 [facility] Comment on above: Performed By: #### C BC, MORPH, MG, DIFF #### [address] [address] CO2 [Moles/Vol] 26 mmol/L Normal 23-31 [facility] Comment on above: Performed By: #### C BC, MORPH, MG, DIFF #### [address] [address] Creatinine [Mass/Vol] 0.52 mg/dL Low 0.55-1.02 [facility] Comment on above: Result Comment: Test ing performed on [employer] Dimension EXL analyzer using a modified kinetic Gris technique. Performed By: #### C BC, MORPH, MG, DIFF #### [address] [address] Electrolyte Balance 6.0 mEq/L Normal 4.0-15.0 [facility] Comment on above: Performed By: #### C BC, MORPH, MG, DIFF #### [address] [address] Glucose [Mass/Vol] 93 mg/dL Normal 83-110 [facility] Comment on above: Performed By: #### C BC, MORPH, MG, DIFF #### [address] [address] Potassium [Moles/Vol] 4.6 mmol/L Normal 3.5-5.1 [facility] Comment on above: Performed By: #### C BC, MORPH, MG, DIFF #### [address] [address] Sodium [Moles/Vol] 141 mmol/L Normal 136-145 [facility] Comment on above: Performed By: #### C BC, MORPH, MG, DIFF #### [address] [address] Urea nitrogen [Mass/Vol] 16 mg/dL Normal 7-18 [facility] Comment on above: Performed By: #### C BC, MORPH, MG, DIFF #### [address] [address] CBCon 11-27-2024 Erythrocyte distribution width (RBC) [Ratio] 14.9 % Normal 11.5-15.5 [facility] Comment on above: Performed By: #### C BC, MORPH, MG, DIFF #### [place] [address] Hematocrit (Bld) [Volume fraction] 29.0 % Low 34.0-46.0 [facility] Comment on above: Performed By: #### C BC, MORPH, MG, DIFF #### [place] [address] Hgb 9.7 G/dL Low 12.0-16.0 [facility] Comment on above: Performed By: #### C BC, MORPH, MG, DIFF #### [place] [address] MCH (RBC) [Entitic mass] 31.5 pg Normal 27.0-33.0 [facility] Comment on above: Performed By: #### C BC, MORPH, MG, DIFF #### [place] [address] MCHC 33.5 G/dL Normal 32.0-36.0 [facility] Comment on above: Performed By: #### C BC, MORPH, MG, DIFF #### [place] [address] MCV (RBC) [Entitic vol] 94.0 fL Normal 80.0-99.0 [facility] Comment on above: Performed By: #### C BC, MORPH, MG, DIFF #### [place] [address] Platelet 254 10 3/mcL Normal 150-450 [facility] Comment on above: Performed By: #### C BC, MORPH, MG, DIFF #### [place] [address] Platelet mean volume (Bld) [Entitic vol] 7.7 fL Normal 6.6-10.5 [facility] Comment on above: Performed By: #### C BC, MORPH, MG, DIFF #### [facility] [address] [place], [place] [address] RBC 3.08 10 6/mcL Low 4.10-5.30 [facility] Comment on above: Performed By: #### C BC, MORPH, MG, DIFF #### [facility] [address] [place], [place] [address] WBC 10.4 10 3/mcL Normal 4.5-10.8 [facility] Comment on above: Performed By: #### C BC, MORPH, MG, DIFF #### [facility] [address] [place], [place] [address] CT ANGIOGRAPHY CHEST W/CONTR Kiara 11-27-2024 CT ANGIOGRAPHY CHEST W/CONTRAST ORIGINAL EXAMINATION: CTA OF THE CHEST 11/27/2024 10:20 am TECHNIQUE: CTA of the chest was performed after the administration of intravenous contrast. Multiplanar reformatted images are provided for review. MIP images are provided for review. Automated exposure control, iterative reconstruction, and/or weight based adjustment of the mA/kV was utilized to reduce the radiation dose to as low as reasonably achievable. COMPARISON: None. HISTORY: ORDERING SYSTEM PROVIDED HISTORY: Reason for Exam: Tachycardia, dyspnea FINDINGS: Minor degenerative changes are noted in the spine. No acute osseous abnormality identified. Mild bilateral lower lobe bronchiectasis is visible. A small left pleural effusion is present, and there are small areas of atelectasis at the posterior lower lobes bilaterally. Minimal ground-glass infiltrates are present at both lower lobes as well. No mediastinal adenopathy is evident. A small pericardial effusion is evident. Small right-sided pulmonary emboli are visible. These are seen in right lower lobe segmental branches and at a subsegmental right lower lobe branch. No other pulmonary artery defect is identified. There are no indicators of right heart strain. No additional contributory finding. IMPRESSION: 1. Small segmental and subsegmental right lower lobe pulmonary emboli. No evidence for right heart strain. 2. Small left pleural effusion. Small areas of basilar atelectasis. 3. Small areas of ground-glass infiltrates at the lower lobes, presumably small airways infectious or inflammatory. Interpreted by: Noni Ochoa MD Preliminary Report By: Noni Ochoa MD Electronically signed By Noni Ochoa MD Dictated Date: 11/27/2024 10:25:41 AM Prelim Date: 11/27/2024 10:30:49 AM Sign Date: 11/27/2024 10:30:49 AM Ordering Provider: MANAN Henriquez [facility] FT4on 11-27-2024 Free T4 [Mass/Vol] 1.23 ng/dL Normal 0.76-1.46 [facility] Comment on above: Performed By: #### A DIFF, BMP, ANEU, CBC, GFR #### [facility] [address] [place], [place] [address] LABORATORYOrdered By: SYSTEM SYSTEM on 11-27-2024 Basophils (Bld) [#/Vol] 0.1 103/mcL Normal 0.0 - 0.2 10^3/mcL AO Workflow SS Basophils/100 WBC (Bld) 0.7 % Normal 0.0 - 2.5 % AO Workflow SS Calcium [Mass/Vol] 8.8 mg/dL Normal 8.4 - 10. 2 mg/dL AO ADM SS Chloride [Moles/Vol] 109 mmol/L High 98 - 10 7 mmol/L AO ADM SS CO2 [Moles/Vol] 26 mmol/L Normal 23 - 31 mmol/L AO ADM SS Creatinine [Mass/Vol] 0.52 mg/dL Low 0.55 - 1.02 mg/dL AO ADM SS Comment on above: Interpretive Data: T esting performed on [employer] Dimension EXL analyzer using a modified kinetic Gris technique. Electrolyte Balance 6.0 mEq/L Normal 4.0 - 15 .0 mEq/L AO ADM SS Eosinophil, Absolute 0.3 103/mcL Normal 0.0 - 0 .7 10^3/mcL AO Workflow SS Eosinophils/100 WBC (Bld) 2.6 % Normal 0. 0 - 7.0 % AO Workflow SS Erythrocyte distribution width (RBC) [Ratio] 14.9 % Normal 11.5 - 15.5 % AO Workflow SS Estimated Glomerular Filtration Rate 96 ml/min/1.73sqm Invalid Interpretation Code AO Chemistry S Comment on above: Interpretive Data: Stages of Chronic Kidney Disease (CKD) Stage Description eGFR(ml/min/1.73 sq.m.) CKD 1 Normal kidney function or >=90 normal kindney function with possible kidney damage (ex. Proteinuria) CKD 2 Kidney damage with mild loss 60-89 of kidney function CKD 3a Mild to moderate loss of kidney 45-59 function CKD 3b Moderate to severe loss of 30-44 of kindey function CKD 4 Severe loss of kidney function 15-29 CKD 5 Kidney failure <15 Note: (go live 2024) the eGFR calculation was updated to the 2020 CKD-EPI creatinine equation without a race factor to calculate the eGFR results. Free T4 [Mass/Vol] 1.23 ng/dL Normal 0.76 - 1.46 ng/dL AO ADM SS Glucose [Mass/Vol] 93 mg/dL Normal 83 - 110 mg/dL AO ADM SS Hematocrit (Bld) [Volume fraction] 29.0 % Low 34.0 - 46.0 % AO Workflow SS Hemoglobin (Bld) [Mass/Vol] 9.7 G/dL Low 12.0 - 16.0 G/dL AO Workflow SS Lymphocytes (Bld) [#/Vol] 1.8 103/mcL Normal 0. 9 - 4.3 10^3/mcL AO Workflow SS Lymphocytes/100 WBC (Bld) 17.2 % Low 20 .0 - 40.0 % AO Workflow SS Magnesium [Mass/Vol] 1.9 mg/dL Normal 1.8 - 2 .4 mg/dL AO ADM SS MCH (RBC) [Entitic mass] 31.5 pg Normal 27. 0 - 33.0 pg AO Workflow SS MCHC 33.5 G/dL Normal 32.0 - 36.0 G/dL AO Workflow SS MCV (RBC) [Entitic vol] 94.0 fL Normal 80.0 - 99.0 fL AO Workflow SS Monocytes (Bld) [#/Vol] 1.2 103/mcL Normal 0.1 - 1.4 10^3/mcL AO Workflow SS Monocytes/100 WBC (Bld) 11.9 % Normal 2.0 - 13.0 % AO Workflow SS Neutrophils (Bld) [#/Vol] 7.0 103/mcL Normal 2. 3 - 8.1 10^3/mcL AO Workflow SS Neutrophils/100 WBC (Bld) 67.6 % Normal 50 .0 - 75.0 % AO Workflow SS Platelet mean volume (Bld) [Entitic vol] 7.7 fL Normal 6.6 - 10.5 fL AO Workflow SS Platelets (Bld) [#/Vol] 254 103/mcL Normal 150 - 450 10^3/mcL AO Workflow SS Potassium [Moles/Vol] 4.6 mmol/L Normal 3.5 - 5.1 mmol/L AO ADM SS RBC (Bld) [#/Vol] 3.08 106/mcL Low 4.10 - 5.30 10^6/mcL AO Workflow SS Sodium [Moles/Vol] 141 mmol/L Normal 136 - 145 mmol/L AO ADM SS TSH Qn 1.45 m[IU]/L Normal 0.36 - 3.74 mcIU/mL AO ADM SS Urea nitrogen [Mass/Vol] 16 mg/dL Normal 7 - 18 mg/dL AO ADM SS Urea nitrogen/Creatinine [Mass ratio] 31 ratio High 7 - 27 ratio AO ADM SS WBC (Bld) [#/Vol] 10.4 103/mcL Normal 4.5 - 10.8 10^3/mcL AO Workflow SS MGon 11-27-2024 Magnesium [Mass/Vol] 1.9 mg/dL Normal 1.8-2.4 [facility] Comment on above: Performed By: #### C BC, MORPH, MG, DIFF #### [address] [address] TSHon 11-27-2024 TSH Qn 1.45 m[IU]/L Normal 0.36-3.74 [facility] Comment on above: Performed By: #### A DIFF, BMP, ANEU, CBC, GFR #### [address] [address] .GFRon 11-26-2024 Estimated Glomerular Filtration Rate 95 ml/min/1.73sqm Normal [facility] Comment on above: Result Comment: Stages of Chronic Kidney Disease (CKD) Stage Description eGFR(ml/min/1.73 sq.m.) CKD 1 Normal kidney function or >=90 normal kindney function with possible kidney damage (ex. Proteinuria) CKD 2 Kidney damage with mild loss 60-89 of kidney function CKD 3a Mild to moderate loss of kidney 45-59 function CKD 3b Moderate to severe loss of 30-44 of kindey function CKD 4 Severe loss of kidney function 15-29 CKD 5 Kidney failure <15 Note: (go live 2024) the eGFR calculation was updated to the 2020 CKD-EPI creatinine equation without a race factor to calculate the eGFR results. Performed By: #### C BC MORPH, MG, DIFF #### [address] [address] .Manual Diffon 11-26-2024 Bands 1.0 % Normal 0.0-5.0 [facility] Comment on above: Performed By: #### C BC, MORPH, MG, DIFF #### [address] [address] Basophil %, Manual 1.0 % Normal 0.0-2.5 [facility] Comment on above: Performed By: #### C BC, MORPH, MG, DIFF #### [address] [address] Basophil, Abs Manual 0.1 10 3/mcL Normal 0.0-0.2 [facility] Comment on above: Performed By: #### C BC, MORPH, MG, DIFF #### [address] [address] Eosinophil %, Manual 2.0 % Normal 0.0-7.0 [facility] Comment on above: Performed By: #### C BC, MORPH, MG, DIFF #### [address] [address] Eosinophil, Abs Manual 0.2 10 3/mcL Normal 0.0-0.7 [facility] Comment on above: Performed By: #### C BC, MORPH, MG, DIFF #### [address] [address] Lymphocyte %, Manual 19.0 % Low 20.0-40.0 [facility] Comment on above: Performed By: #### C BC, MORPH, MG, DIFF #### [address] [address] Lymphocyte, Abs Manual 2.1 10 3/mcL Normal 0.9-4.3 [facility] Comment on above: Performed By: #### C BC, MORPH, MG, DIFF #### [address] [address] Monocyte %, Manual 3.0 % Normal 2.0-13.0 [facility] Comment on above: Performed By: #### C BC, MORPH, MG, DIFF #### [address] [address] Monocyte, Abs Manual 0.4 10 3/mcL Normal 0.1-1.4 [facility] Comment on above: Performed By: #### C BC, MORPH, MG, DIFF #### [address] [address] Myelocyte 1.0 % Normal [facility] Comment on above: Performed By: #### C BC, MORPH, MG, DIFF #### [address] [address] Neutrophil %, Manual 73.0 % Normal 50.0-75.0 [facility] Comment on above: Performed By: #### C BC, MORPH, MG, DIFF #### [address] [address] Neutrophil, Abs Manual 8.2 10 3/mcL High 2.3-8.1 [facility] Comment on above: Performed By: #### C BC, MORPH, MG, DIFF #### [address] [address] Nucleated RBC 0.0 /100 WBC Normal [facility] Comment on above: Performed By: #### C BC, MORPH, MG, DIFF #### [address] [address] .Morphon 11-26-2024 Platelet Estimate Normal Normal [facility] Comment on above: Performed By: #### C BC, MORPH, MG, DIFF #### [address] [address] RBC morphology finding Nom (Bld) Normal Normal [facility] Comment on above: Performed By: #### C BC, MORPH, MG, DIFF #### [address] [address] .Urinalysis Microscopic (AO) on 11-26-2024 UA Bacteria 4+ /hpf Abnormal [facility] Comment on above: Performed By: #### C BC, MORPH, MG, DIFF #### [place] [address] UA CA Ox Crystal Trace Normal [facility] Comment on above: Performed By: #### C BC, MORPH, MG, DIFF #### [place] [address] UA RBC 5-10 Abnormal None Seen [facility] Comment on above: Performed By: #### C BC, MORPH, MG, DIFF #### [place] [address] UA Squam Epithelial LOADED Abnormal None Seen [facility] Comment on above: Performed By: #### C BC, MORPH, MG, DIFF #### [place] [address] UA WBC LOADED Abnormal None Seen [facility] Comment on above: Performed By: #### C BC, MORPH, MG, DIFF #### [place] [address] AMOXICILLIN+CLAVULANATE:SUSC :PT:ISOLATE:ORDQN:MICon 11-26-2024 Amoxicillin+Clavulanate RHEA [Susc] >100,000 cfu/ml Enterobacter cloacae complex [facility] Work Phone: Amoxicillin+Clavulanate RHEA [Susc]on 11-26-2024 Enterobacter cloacae complex Enterobacter cloacae complex [facility] Work Phone: BMPon 11-26-2024 BUN/Creatinine Ratio 39 ratio High 04-25 [facility] Comment on above: Performed By: #### C BC, MORPH, MG, DIFF #### [place] [address] Calcium [Mass/Vol] 8.7 mg/dL Normal 8.4-10.2 [facility] Comment on above: Performed By: #### C BC, MORPH, MG, DIFF #### [address] [address] Chloride [Moles/Vol] 104 mmol/L Normal 98-107 [facility] Comment on above: Performed By: #### C BC, MORPH, MG, DIFF #### [address] [address] CO2 [Moles/Vol] 24 mmol/L Normal 23-31 [facility] Comment on above: Performed By: #### C BC, MORPH, MG, DIFF #### [address] [address] Creatinine [Mass/Vol] 0.54 mg/dL Low 0.55-1.02 [facility] Comment on above: Result Comment: Test ing performed on [employer] Dim[employer] EXL analyzer using a modified kinetic Gris technique. Performed By: #### C BC, MORPH, MG, DIFF #### [place] [address] Electrolyte Balance 10.0 mEq/L Normal 4.0-15.0 [facility] Comment on above: Performed By: #### C BC, MORPH, MG, DIFF #### [place] [address] Glucose [Mass/Vol] 114 mg/dL High 83-110 [facility] Comment on above: Performed By: #### C BC, MORPH, MG, DIFF #### [address] [address] Potassium [Moles/Vol] 4.1 mmol/L Normal 3.5-5.1 [facility] Comment on above: Performed By: #### C BC, MORPH, MG, DIFF #### [place] [address] Sodium [Moles/Vol] 138 mmol/L Normal 136-145 [facility] Comment on above: Performed By: #### C BC, MORPH, MG, DIFF #### [place] [address] Urea nitrogen [Mass/Vol] 21 mg/dL High 7-18 [facility] Comment on above: Performed By: #### C BC, MORPH, MG, DIFF #### [address] [address] CBCon 11-26-2024 Erythrocyte distribution width (RBC) [Ratio] 14.6 % Normal 11.5-15.5 [facility] Comment on above: Performed By: #### C BC, MORPH, MG, DIFF #### [address] [address] Hematocrit (Bld) [Volume fraction] 28.9 % Low 34.0-46.0 [facility] Comment on above: Performed By: #### C BC, MORPH, MG, DIFF #### [address] [address] Hgb 9.8 G/dL Low 12.0-16.0 [facility] Comment on above: Performed By: #### C BC, MORPH, MG, DIFF #### [address] [address] MCH (RBC) [Entitic mass] 31.6 pg Normal 27.0-33.0 [facility] Comment on above: Performed By: #### C BC, MORPH, MG, DIFF #### [address] [address] MCHC 33.8 G/dL Normal 32.0-36.0 [facility] Comment on above: Performed By: #### C BC, MORPH, MG, DIFF #### [address] [address] MCV (RBC) [Entitic vol] 93.5 fL Normal 80.0-99.0 [facility] Comment on above: Performed By: #### C BC, MORPH, MG, DIFF #### [address] [address] Platelet 273 10 3/mcL Normal 150-450 [facility] Comment on above: Performed By: #### C BC, MORPH, MG, DIFF #### [address], [place] [address] Platelet mean volume (Bld) [Entitic vol] 7.5 fL Normal 6.6-10.5 [facility] Comment on above: Performed By: #### C BC, MORPH, MG, DIFF #### [id number] [place], [place] [address] RBC 3.09 10 6/mcL Low 4.10-5.30 [facility] Comment on above: Performed By: #### C BC, MORPH, MG, DIFF #### [id number] [place], [place] [address] WBC 11.2 10 3/mcL High 4.5-10.8 [facility] Comment on above: Performed By: #### C BC, MORPH, MG, DIFF #### [id number] [place], [place] [address] LABORATORYOrdered By: Trixie Hebert on 11-26-2024 Appearance (U) Cloudy *ABN* (11/26/24 9:37 AM) Invalid Interpretation Code Clear AO Auto Urine SS Bacteria LM.HPF (Urine sed) [#/Area] 4 /[HPF] Invalid Interpretation Code AO Auto Urine SS Bilirubin Ql (U) Negative (11/26/24 9:37 AM) Normal Negative AO Auto Urine SS Calcium oxalate crystals LM.HPF (Urine sed) [#/Area] Trace /HPF Normal AO A uto Urine SS Color (U) Dark yellow Invalid Interpretation Code AO Auto Urine SS Glucose Test strip (U) [Mass/Vol] Negative Normal Negative AO Auto Urine SS Hemoglobin Auto test strip (U) [Mass/Vol] Moderate *ABN* (11/26/24 9:37 AM) Invalid Interpretation Code Negative AO Auto Urine SS Ketones Ql (U) Negative Normal Negative AO Auto Urine SS UA Leuk Est Moderate *ABN* (11/26/24 9:37 AM) Invalid Interpretation Code Negative AO Auto Urine SS UA Nitrite Positive *ABN* (11/26/24 9:37 AM) Invalid Interpretation Code Negative AO Auto Urine SS UA pH 5.5 (11/26/24 9:37 AM) Normal 5.0 - 8.0 AO Auto Urine SS UA Protein 30 mg/dL Normal Negative AO Auto Urine SS UA RBC 5-10 /HPF Invalid Interpretation Code None Seen AO Auto Urine SS UA Spec Grav >=1.030 *ABN* (11/26/24 9:37 AM) Invalid Interpretation Code 1.015-1.02 5 AO Auto Urine SS UA Specimen Type Puentes Catheter (11/26/24 9:37 AM) Normal AO Auto Urine SS UA Squam Epithelial LOADED /HPF Invalid Interpretation Code None Seen AO Auto Urine SS UA Urobilinogen 0.2 E.U./dL Normal 0.2-1.0 AO Auto Urine SS WBC LM.HPF (Urine sed) [#/Area] LOADED /HPF Invalid Interpretation Code None Seen AO Auto Urine SS LABORATORYOrdered By: SYSTEM SYSTEM on 11-26-2024 Band form neutrophils/100 WBC (Bld) 1.0 % Normal 0.0 - 5.0 % AO Workflow SS Basophil %, Manual 1.0 % Normal 0.0 - 2.5 % AO Workflow SS Basophils (Bld) [#/Vol] 0.1 103/mcL Normal 0.0 - 0.2 10^3/mcL AO Workflow SS Calcium [Mass/Vol] 8.7 mg/dL Normal 8.4 - 10. 2 mg/dL AO ADM SS Chloride [Moles/Vol] 104 mmol/L Normal 98 - 10 7 mmol/L AO ADM SS CO2 [Moles/Vol] 24 mmol/L Normal 23 - 31 mmol/L AO ADM SS Creatinine [Mass/Vol] 0.54 mg/dL Low 0.55 - 1.02 mg/dL AO ADM SS Comment on above: Interpretive Data: T esting performed on Siemens Dimension EXL analyzer using a modified kinetic Gris technique. Electrolyte Balance 10.0 mEq/L Normal 4.0 - 15 .0 mEq/L AO ADM SS Eosinophil %, Manual 2.0 % Normal 0.0 - 7 .0 % AO Workflow SS Eosinophils (Bld) [#/Vol] 0.2 103/mcL Normal 0. 0 - 0.7 10^3/mcL AO Workflow SS Erythrocyte distribution width (RBC) [Ratio] 14.6 % Normal 11.5 - 15.5 % AO Workflow SS Estimated Glomerular Filtration Rate 95 ml/min/1.73sqm Invalid Interpretation Code AO Chemistry S Comment on above: Interpretive Data: Stages of Chronic Kidney Disease (CKD) Stage Description eGFR(ml/min/1.73 sq.m.) CKD 1 Normal kidney function or >=90 normal kindney function with possible kidney damage (ex. Proteinuria) CKD 2 Kidney damage with mild loss 60-89 of kidney function CKD 3a Mild to moderate loss of kidney 45-59 function CKD 3b Moderate to severe loss of 30-44 of kindey function CKD 4 Severe loss of kidney function 15-29 CKD 5 Kidney failure <15 Note: (go live 2024) the eGFR calculation was updated to the 2020 CKD-EPI creatinine equation without a race factor to calculate the eGFR results. Glucose [Mass/Vol] 114 mg/dL High 83 - 110 mg/dL AO ADM SS Hematocrit (Bld) [Volume fraction] 28.9 % Low 34.0 - 46.0 % AO Workflow SS Hemoglobin (Bld) [Mass/Vol] 9.8 G/dL Low 12.0 - 16.0 G/dL AO Workflow SS Lymphocytes (Bld) [#/Vol] 2.1 103/mcL Normal 0. 9 - 4.3 10^3/mcL AO Workflow SS Lymphocytes/100 WBC (Bld) 19.0 % Low 20 .0 - 40.0 % AO Workflow SS Magnesium [Mass/Vol] 2.0 mg/dL Normal 1.8 - 2 .4 mg/dL AO ADM SS MCH (RBC) [Entitic mass] 31.6 pg Normal 27. 0 - 33.0 pg AO Workflow SS MCHC 33.8 G/dL Normal 32.0 - 36.0 G/dL AO Workflow SS MCV (RBC) [Entitic vol] 93.5 fL Normal 80.0 - 99.0 fL AO Workflow SS Monocytes (Bld) [#/Vol] 0.4 103/mcL Normal 0.1 - 1.4 10^3/mcL AO Workflow SS Monocytes/100 WBC (Bld) 3.0 % Normal 2.0 - 13.0 % AO Workflow SS Myelocytes/100 WBC (Bld) 1.0 % Invalid Interpretation Code AO Workflow SS Neutrophils (Bld) [#/Vol] 8.2 103/mcL High 2. 3 - 8.1 10^3/mcL AO Workflow SS Neutrophils/100 WBC (Bld) 73.0 % Normal 50 .0 - 75.0 % AO Workflow SS Nucleated RBC 0.0 /100 WBC Invalid Interpretation Code AO Workflow SS Platelet mean volume (Bld) [Entitic vol] 7.5 fL Normal 6.6 - 10.5 fL AO Workflow SS Platelets (Bld) [#/Vol] 273 103/mcL Normal 150 - 450 10^3/mcL AO Workflow SS Platelets LM Ql (Bld) Normal *NA* (11/26/24 5:54 AM) Invalid Interpretation Code AO Workflow SS Potassium [Moles/Vol] 4.1 mmol/L Normal 3.5 - 5.1 mmol/L AO ADM SS RBC (Bld) [#/Vol] 3.09 106/mcL Low 4.10 - 5.30 10^6/mcL AO Workflow SS RBC morphology finding Nom (Bld) Normal *NA* (11/26/24 5:54 AM) Invalid Interpretation Code AO Workflow SS Sodium [Moles/Vol] 138 mmol/L Normal 136 - 145 mmol/L AO ADM SS Urea nitrogen [Mass/Vol] 21 mg/dL High 7 - 18 mg/dL AO ADM SS Urea nitrogen/Creatinine [Mass ratio] 39 ratio High 7 - 27 ratio AO ADM SS WBC (Bld) [#/Vol] 11.2 103/mcL High 4.5 - 10.8 10^3/mcL AO Workflow SS MGon 11-26-2024 Magnesium [Mass/Vol] 2.0 mg/dL Normal 1.8-2.4 [facility] Comment on above: Performed By: #### C BC, MORPH, MG, DIFF #### [address] [address] UAon 11-26-2024 Color (U) Dark yellow Normal [facility] Comment on above: Performed By: #### C BC, MORPH, MG, DIFF #### [address] [address] Glucose (U) [Mass/Vol] Negative Normal Negative [facility] Comment on above: Performed By: #### C BC, MORPH, MG, DIFF #### [address] [address] Ketones Ql (U) Negative Normal Negative [facility] Comment on above: Performed By: #### C BC, MORPH, MG, DIFF #### [address] [address] UA Appear Cloudy Abnormal Clear [facility] Comment on above: Performed By: #### C BC, MORPH, MG, DIFF #### [address] [address] UA Blood Moderate Abnormal Negative [facility] Comment on above: Performed By: #### C BC, MORPH, MG, DIFF #### [address] [address] UA Leuk Est Moderate Abnormal Negative [facility] Comment on above: Performed By: #### C BC, MORPH, MG, DIFF #### [address] [address] UA Nitrite Positive Abnormal Negative [facility] Comment on above: Performed By: #### C BC, MORPH, MG, DIFF #### [address] [address] UA pH 5.5 Normal 5.0 - 8.0 [facility] Comment on above: Performed By: #### C BC, MORPH, MG, DIFF #### [address] [address] UA Protein 30 mg/dL Normal Negative [facility] Comment on above: Performed By: #### C BC, MORPH, MG, DIFF #### [address] [address] UA Spec Grav >=1.030 Abnormal 1.015-1.02 5 [facility] Comment on above: Performed By: #### C BC, MORPH, MG, DIFF #### [address] [address] UA Specimen Type Puentes Catheter Normal [facility] Comment on above: Performed By: #### C BC, MORPH, MG, DIFF #### [address] [address] UA Urobilinogen 0.2 E.U./dL Normal 0.2-1.0 [facility] Comment on above: Performed By: #### C BC, MORPH, MG, DIFF #### Viktor [place] [address] [place], [place] [address] Urobilinogen (U) [Mass/Vol] Negative Normal Negative [facility] Comment on above: Performed By: #### C BC, MORPH, MG, DIFF #### [address] [address] .Auto Diffon 11-25-2024 Basophil, Absolute 0.1 10 3/mcL Normal 0.0-0.2 [facility] Comment on above: Performed By: #### A DIFF, BMP, ANEU, CBC, GFR #### [address] [address] Basophils/100 WBC (Bld) 0.9 % Normal 0.0-2.5 [facility] Comment on above: Performed By: #### A DIFF, BMP, ANEU, CBC, GFR #### [address] [address] Eosinophil, Absolute 0.2 10 3/mcL Normal 0.0-0.7 [facility] Comment on above: Performed By: #### A DIFF, BMP, ANEU, CBC, GFR #### [address] [address] Eosinophils/100 WBC (Bld) 2.7 % Normal 0.0-7.0 [facility] Comment on above: Performed By: #### A DIFF, BMP, ANEU, CBC, GFR #### [address] [address] Lymphocyte, Absolute 1.8 10 3/mcL Normal 0.9-4.3 [facility] Comment on above: Performed By: #### A DIFF, BMP, ANEU, CBC, GFR #### [address] [address] Lymphocytes/100 WBC (Bld) 20.4 % Normal 20.0-40.0 [facility] Comment on above: Performed By: #### A DIFF, BMP, ANEU, CBC, GFR #### [address] [address] Monocyte, Absolute 1.0 10 3/mcL Normal 0.1-1.4 [facility] Comment on above: Performed By: #### A DIFF, BMP, ANEU, CBC, GFR #### [address] [address] Monocytes/100 WBC (Bld) 10.8 % Normal 2.0-13.0 [facility] Comment on above: Performed By: #### A DIFF, BMP, ANEU, CBC, GFR #### [address] [address] Neutrophils/100 WBC (Bld) 65.2 % Normal 50.0-75.0 [facility] Comment on above: Performed By: #### A DIFF, BMP, ANEU, CBC, GFR #### [address] [address] .GFRon 11-25-2024 Estimated Glomerular Filtration Rate 94 ml/min/1.73sqm Normal [facility] Comment on above: Result Comment: Stages of Chronic Kidney Disease (CKD) Stage Description eGFR(ml/min/1.73 sq.m.) CKD 1 Normal kidney function or >=90 normal kindney function with possible kidney damage (ex. Proteinuria) CKD 2 Kidney damage with mild loss 60-89 of kidney function CKD 3a Mild to moderate loss of kidney 45-59 function CKD 3b Moderate to severe loss of 30-44 of kindey function CKD 4 Severe loss of kidney function 15-29 CKD 5 Kidney failure <15 Note: (go live 2024) the eGFR calculation was updated to the 2020 CKD-EPI creatinine equation without a race factor to calculate the eGFR results. Performed By: #### A DIFF, BMP, ANEU, CBC, GFR #### [address] [address] .NEUABSon 11-25-2024 Neutrophil, Absolute 5.8 10 3/mcL Normal 2.3-8.1 [facility] Comment on above: Performed By: #### A DIFF, BMP, ANEU, CBC, GFR #### [address] [address] BMPon 11-25-2024 BUN/Creatinine Ratio 33 ratio High 7-27 [facility] Comment on above: Performed By: #### A DIFF, BMP, ANEU, CBC, GFR #### [address] [address] Calcium [Mass/Vol] 8.9 mg/dL Normal 8.4-10.2 [facility] Comment on above: Performed By: #### A DIFF, BMP, ANEU, CBC, GFR #### [place] [address] Chloride [Moles/Vol] 106 mmol/L Normal 98-107 [facility] Comment on above: Performed By: #### A DIFF, BMP, ANEU, CBC, GFR #### [place] [address] CO2 [Moles/Vol] 24 mmol/L Normal 23-31 [facility] Comment on above: Performed By: #### A DIFF, BMP, ANEU, CBC, GFR #### [place] [address] Creatinine [Mass/Vol] 0.57 mg/dL Normal 0.55-1.02 [facility] Comment on above: Result Comment: Test ing performed on Siemens Dimension EXL analyzer using a modified kinetic Gris technique. Performed By: #### A DIFF, BMP, ANEU, CBC, GFR #### [address] [address] Electrolyte Balance 9.0 mEq/L Normal 4.0-15.0 [facility] Comment on above: Performed By: #### A DIFF, BMP, ANEU, CBC, GFR #### [address] [address] Glucose [Mass/Vol] 100 mg/dL Normal 83-110 [facility] Comment on above: Performed By: #### A DIFF, BMP, ANEU, CBC, GFR #### [place] [id number] Potassium [Moles/Vol] 4.0 mmol/L Normal 3.5-5.1 [facility] Comment on above: Performed By: #### A DIFF, BMP, ANEU, CBC, GFR #### [address] [address] Sodium [Moles/Vol] 139 mmol/L Normal 136-145 [facility] Comment on above: Performed By: #### A DIFF, BMP, ANEU, CBC, GFR #### [address] [address] Urea nitrogen [Mass/Vol] 19 mg/dL High 7-18 [facility] Comment on above: Performed By: #### A DIFF, BMP, ANEU, CBC, GFR #### [address] [address] CBCon 11-25-2024 Erythrocyte distribution width (RBC) [Ratio] 14.8 % Normal 11.5-15.5 [facility] Comment on above: Performed By: #### A DIFF, BMP, ANEU, CBC, GFR #### [address] [address] Hematocrit (Bld) [Volume fraction] 28.3 % Low 34.0-46.0 [facility] Comment on above: Performed By: #### A DIFF, BMP, ANEU, CBC, GFR #### [address] [address] Hgb 9.6 G/dL Low 12.0-16.0 [facility] Comment on above: Performed By: #### A DIFF, BMP, ANEU, CBC, GFR #### [address] [address] MCH (RBC) [Entitic mass] 31.3 pg Normal 27.0-33.0 [facility] Comment on above: Performed By: #### A DIFF, BMP, ANEU, CBC, GFR #### [address] [address] MCHC 33.9 G/dL Normal 32.0-36.0 [facility] Comment on above: Performed By: #### A DIFF, BMP, ANEU, CBC, GFR #### [address] [address] MCV (RBC) [Entitic vol] 92.4 fL Normal 80.0-99.0 [facility] Comment on above: Performed By: #### A DIFF, BMP, ANEU, CBC, GFR #### [place] [id number] Platelet 256 10 3/mcL Normal 150-450 [facility] Comment on above: Performed By: #### A DIFF, BMP, ANEU, CBC, GFR #### [place] [address] Platelet mean volume (Bld) [Entitic vol] 7.8 fL Normal 6.6-10.5 [facility] Comment on above: Performed By: #### A DIFF, BMP, ANEU, CBC, GFR #### [place] [address] RBC 3.07 10 6/mcL Low 4.10-5.30 [facility] Comment on above: Performed By: #### A DIFF, BMP, ANEU, CBC, GFR #### [place] [address] WBC 8.8 10 3/mcL Normal 4.5-10.8 [facility] Comment on above: Performed By: #### A DIFF, BMP, ANEU, CBC, GFR #### [place] [address] LABORATORYOrdered By: SYSTEM SYSTEM on 11-25-2024 Basophils (Bld) [#/Vol] 0.1 103/mcL Normal 0.0 - 0.2 10^3/mcL AO Workflow SS Basophils/100 WBC (Bld) 0.9 % Normal 0.0 - 2.5 % AO Workflow SS Calcium [Mass/Vol] 8.9 mg/dL Normal 8.4 - 10. 2 mg/dL AO ADM SS Chloride [Moles/Vol] 106 mmol/L Normal 98 - 10 7 mmol/L AO ADM SS CO2 [Moles/Vol] 24 mmol/L Normal 23 - 31 mmol/L AO ADM SS Creatinine [Mass/Vol] 0.57 mg/dL Normal 0.55 - 1.02 mg/dL AO ADM SS Comment on above: Interpretive Data: T esting performed on Siemens Dimension EXL analyzer using a modified kinetic Gris technique. Electrolyte Balance 9.0 mEq/L Normal 4.0 - 15 .0 mEq/L AO ADM SS Eosinophil, Absolute 0.2 103/mcL Normal 0.0 - 0 .7 10^3/mcL AO Workflow SS Eosinophils/100 WBC (Bld) 2.7 % Normal 0. 0 - 7.0 % AO Workflow SS Estimated Glomerular Filtration Rate 94 ml/min/1.73sqm Invalid Interpretation Code AO Chemistry S Comment on above: Interpretive Data: Stages of Chronic Kidney Disease (CKD) Stage Description eGFR(ml/min/1.73 sq.m.) CKD 1 Normal kidney function or >=90 normal kindney function with possible kidney damage (ex. Proteinuria) CKD 2 Kidney damage with mild loss 60-89 of kidney function CKD 3a Mild to moderate loss of kidney 45-59 function CKD 3b Moderate to severe loss of 30-44 of kindey function CKD 4 Severe loss of kidney function 15-29 CKD 5 Kidney failure <15 Note: (go live 2024) the eGFR calculation was updated to the 2020 CKD-EPI creatinine equation without a race factor to calculate the eGFR results. Glucose [Mass/Vol] 100 mg/dL Normal 83 - 110 mg/dL AO ADM SS Lymphocytes (Bld) [#/Vol] 1.8 103/mcL Normal 0. 9 - 4.3 10^3/mcL AO Workflow SS Lymphocytes/100 WBC (Bld) 20.4 % Normal 20 .0 - 40.0 % AO Workflow SS Monocytes (Bld) [#/Vol] 1.0 103/mcL Normal 0.1 - 1.4 10^3/mcL AO Workflow SS Monocytes/100 WBC (Bld) 10.8 % Normal 2.0 - 13.0 % AO Workflow SS Neutrophils (Bld) [#/Vol] 5.8 103/mcL Normal 2. 3 - 8.1 10^3/mcL AO Workflow SS Neutrophils/100 WBC (Bld) 65.2 % Normal 50 .0 - 75.0 % AO Workflow SS Potassium [Moles/Vol] 4.0 mmol/L Normal 3.5 - 5.1 mmol/L AO ADM SS Sodium [Moles/Vol] 139 mmol/L Normal 136 - 145 mmol/L AO ADM SS Urea nitrogen [Mass/Vol] 19 mg/dL High 7 - 18 mg/dL AO ADM SS Urea nitrogen/Creatinine [Mass ratio] 33 ratio High 7 - 27 ratio AO ADM SS MGon 11-25-2024 Magnesium [Mass/Vol] 1.8 mg/dL Normal 1.8-2.4 [facility] Comment on above: Performed By: #### A DIFF, BMP, ANEU, CBC, GFR #### [address] [address] .Auto Diffon 11-24-2024 Basophil, Absolute 0.1 10 3/mcL Normal 0.0-0.2 [facility] Comment on above: Performed By: #### C BC, MORPH, MG, DIFF #### [address] [address] Basophils/100 WBC (Bld) 0.8 % Normal 0.0-2.5 [facility] Comment on above: Performed By: #### C BC, MORPH, MG, DIFF #### [address] [address] Eosinophil, Absolute 0.2 10 3/mcL Normal 0.0-0.7 [facility] Comment on above: Performed By: #### C BC, MORPH, MG, DIFF #### [address] [address] Eosinophils/100 WBC (Bld) 1.9 % Normal 0.0-7.0 [facility] Comment on above: Performed By: #### C BC, MORPH, MG, DIFF #### [address] [address] Lymphocyte, Absolute 1.9 10 3/mcL Normal 0.9-4.3 [facility] Comment on above: Performed By: #### C BC, MORPH, MG, DIFF #### [address] [address] Lymphocytes/100 WBC (Bld) 21.8 % Normal 20.0-40.0 [facility] Comment on above: Performed By: #### C BC, MORPH, MG, DIFF #### [address] [address] Monocyte, Absolute 1.0 10 3/mcL Normal 0.1-1.4 [facility] Comment on above: Performed By: #### C BC, MORPH, MG, DIFF #### [address] [address] Monocytes/100 WBC (Bld) 11.1 % Normal 2.0-13.0 [facility] Comment on above: Performed By: #### C BC, MORPH, MG, DIFF #### [address] [address] Neutrophils/100 WBC (Bld) 64.4 % Normal 50.0-75.0 [facility] Comment on above: Performed By: #### C BC, MORPH, MG, DIFF #### [address] [address] .GFRon 11-24-2024 Estimated Glomerular Filtration Rate 92 ml/min/1.73sqm Normal [facility] Comment on above: Result Comment: Stages of Chronic Kidney Disease (CKD) Stage Description eGFR(ml/min/1.73 sq.m.) CKD 1 Normal kidney function or >=90 normal kindney function with possible kidney damage (ex. Proteinuria) CKD 2 Kidney damage with mild loss 60-89 of kidney function CKD 3a Mild to moderate loss of kidney 45-59 function CKD 3b Moderate to severe loss of 30-44 of kindey function CKD 4 Severe loss of kidney function 15-29 CKD 5 Kidney failure <15 Note: (go live 2024) the eGFR calculation was updated to the 2020 CKD-EPI creatinine equation without a race factor to calculate the eGFR results. Performed By: #### A DIFF, BMP, ANEU, CBC, GFR #### [address] [address] .NEUABSon 11-24-2024 Neutrophil, Absolute 5.7 10 3/mcL Normal 2.3-8.1 [facility] Comment on above: Performed By: #### C BC, MORPH, MG, DIFF #### [place] [id number] [place], [place] [address] BMPon 11-24-2024 BUN/Creatinine Ratio 39 ratio High 7-27 [facility] Comment on above: Performed By: #### C BC, MORPH, MG, DIFF #### [address] [address] Calcium [Mass/Vol] 9.0 mg/dL Normal 8.4-10.2 [facility] Comment on above: Performed By: #### C BC, MORPH, MG, DIFF #### [place] [address] Chloride [Moles/Vol] 104 mmol/L Normal 98-107 [facility] Comment on above: Performed By: #### C BC, MORPH, MG, DIFF #### [place] [address] CO2 [Moles/Vol] 25 mmol/L Normal 23-31 [facility] Comment on above: Performed By: #### C BC, MORPH, MG, DIFF #### [place] [address] Creatinine [Mass/Vol] 0.61 mg/dL Normal 0.55-1.02 [facility] Comment on above: Result Comment: Test ing performed on Siemens Dimension EXL analyzer using a modified kinetic Gris technique. Performed By: #### C BC, MORPH, MG, DIFF #### [address] [address] Electrolyte Balance 6.0 mEq/L Normal 4.0-15.0 [facility] Comment on above: Performed By: #### C BC, MORPH, MG, DIFF #### [address] [address] Glucose [Mass/Vol] 99 mg/dL Normal 83-110 [facility] Comment on above: Performed By: #### C BC, MORPH, MG, DIFF #### [address] [address] Potassium [Moles/Vol] 4.1 mmol/L Normal 3.5-5.1 [facility] Comment on above: Performed By: #### C BC, MORPH, MG, DIFF #### [address] [place] [address] Sodium [Moles/Vol] 135 mmol/L Low 136-145 [facility] Comment on above: Performed By: #### C BC, MORPH, MG, DIFF #### [address] [address] Urea nitrogen [Mass/Vol] 24 mg/dL High 7-18 [facility] Comment on above: Performed By: #### C BC, MORPH, MG, DIFF #### [address] [address] CBCon 11-24-2024 Erythrocyte distribution width (RBC) [Ratio] 14.9 % Normal 11.5-15.5 [facility] Comment on above: Performed By: #### C BC, MORPH, MG, DIFF #### [address] [address] Hematocrit (Bld) [Volume fraction] 28.4 % Low 34.0-46.0 [facility] Comment on above: Performed By: #### C BC, MORPH, MG, DIFF #### [address] [address] Hgb 9.5 G/dL Low 12.0-16.0 [facility] Comment on above: Performed By: #### C BC, MORPH, MG, DIFF #### [address] [address] MCH (RBC) [Entitic mass] 31.2 pg Normal 27.0-33.0 [facility] Comment on above: Performed By: #### C BC, MORPH, MG, DIFF #### [address] [address] MCHC 33.4 G/dL Normal 32.0-36.0 [facility] Comment on above: Performed By: #### C BC, MORPH, MG, DIFF #### [address] [address] MCV (RBC) [Entitic vol] 93.6 fL Normal 80.0-99.0 [facility] Comment on above: Performed By: #### C BC, MORPH, MG, DIFF #### [address] [address] Platelet 228 10 3/mcL Normal 150-450 [facility] Comment on above: Performed By: #### C BC, MORPH, MG, DIFF #### [address] [address] Platelet mean volume (Bld) [Entitic vol] 7.9 fL Normal 6.6-10.5 [facility] Comment on above: Performed By: #### C BC, MORPH, MG, DIFF #### [address] [address] RBC 3.04 10 6/mcL Low 4.10-5.30 [facility] Comment on above: Performed By: #### C BC, MORPH, MG, DIFF #### [address] [address] WBC 8.8 10 3/mcL Normal 4.5-10.8 [facility] Comment on above: Performed By: #### C BC, MORPH, MG, DIFF #### [address] [address] MGon 11-24-2024 Magnesium [Mass/Vol] 1.8 mg/dL Normal 1.8-2.4 [facility] Comment on above: Performed By: #### C BC, MORPH, MG, DIFF #### [address] [address] .Auto Diffon 11-23-2024 Basophil, Absolute 0.1 10 3/mcL Normal 0.0-0.2 [facility] Comment on above: Performed By: #### A DIFF, BMP, ANEU, CBC, GFR #### [address] [address] Basophils/100 WBC (Bld) 0.9 % Normal 0.0-2.5 [facility] Comment on above: Performed By: #### A DIFF, BMP, ANEU, CBC, GFR #### [address] [address] Eosinophil, Absolute 0.1 10 3/mcL Normal 0.0-0.7 [facility] Comment on above: Performed By: #### A DIFF, BMP, ANEU, CBC, GFR #### [address] [address] Eosinophils/100 WBC (Bld) 1.1 % Normal 0.0-7.0 [facility] Comment on above: Performed By: #### A DIFF, BMP, ANEU, CBC, GFR #### [address] [address] Lymphocyte, Absolute 1.6 10 3/mcL Normal 0.9-4.3 [facility] Comment on above: Performed By: #### A DIFF, BMP, ANEU, CBC, GFR #### [address] [address] Lymphocytes/100 WBC (Bld) 18.4 % Low 20.0-40.0 [facility] Comment on above: Performed By: #### A DIFF, BMP, ANEU, CBC, GFR #### [address] [address] Monocyte, Absolute 0.9 10 3/mcL Normal 0.1-1.4 [facility] Comment on above: Performed By: #### A DIFF, BMP, ANEU, CBC, GFR #### [address] [address] Monocytes/100 WBC (Bld) 10.6 % Normal 2.0-13.0 [facility] Comment on above: Performed By: #### A DIFF, BMP, ANEU, CBC, GFR #### [address] [address] Neutrophils/100 WBC (Bld) 69.0 % Normal 50.0-75.0 [facility] Comment on above: Performed By: #### A DIFF, BMP, ANEU, CBC, GFR #### [address] [address] .GFRon 11-23-2024 Estimated Glomerular Filtration Rate 88 ml/min/1.73sqm Normal [facility] Comment on above: Result Comment: Stages of Chronic Kidney Disease (CKD) Stage Description eGFR(ml/min/1.73 sq.m.) CKD 1 Normal kidney function or >=90 normal kindney function with possible kidney damage (ex. Proteinuria) CKD 2 Kidney damage with mild loss 60-89 of kidney function CKD 3a Mild to moderate loss of kidney 45-59 function CKD 3b Moderate to severe loss of 30-44 of kindey function CKD 4 Severe loss of kidney function 15-29 CKD 5 Kidney failure <15 Note: (go live 2024) the eGFR calculation was updated to the 2020 CKD-EPI creatinine equation without a race factor to calculate the eGFR results. Performed By: #### A DIFF, BMP, ANEU, CBC, GFR #### [address] [address] .NEUABSon 11-23-2024 Neutrophil, Absolute 5.9 10 3/mcL Normal 2.3-8.1 [facility] Comment on above: Performed By: #### A DIFF, BMP, ANEU, CBC, GFR #### [address] [address] BMPon 11-23-2024 BUN/Creatinine Ratio 39 ratio High 7-27 [facility] Comment on above: Performed By: #### A DIFF, BMP, ANEU, CBC, GFR #### [address] [address] Calcium [Mass/Vol] 9.0 mg/dL Normal 8.4-10.2 [facility] Comment on above: Performed By: #### A DIFF, BMP, ANEU, CBC, GFR #### [address] [address] Chloride [Moles/Vol] 102 mmol/L Normal 98-107 [facility] Comment on above: Performed By: #### A DIFF, BMP, ANEU, CBC, GFR #### [id number] [place], [place] [address] CO2 [Moles/Vol] 27 mmol/L Normal 23-31 [facility] Comment on above: Performed By: #### A DIFF, BMP, ANEU, CBC, GFR #### [address] [address] Creatinine [Mass/Vol] 0.71 mg/dL Normal 0.55-1.02 [facility] Comment on above: Result Comment: Test ing performed on Siemens Dimension EXL analyzer using a modified kinetic Gris technique. Performed By: #### A DIFF, BMP, ANEU, CBC, GFR #### [place] [id number] Electrolyte Balance 6.0 mEq/L Normal 4.0-15.0 [facility] Comment on above: Performed By: #### A DIFF, BMP, ANEU, CBC, GFR #### [place] [id number] Glucose [Mass/Vol] 98 mg/dL Normal 83-110 [facility] Comment on above: Performed By: #### A DIFF, BMP, ANEU, CBC, GFR #### [place] [id number] Potassium [Moles/Vol] 4.0 mmol/L Normal 3.5-5.1 [facility] Comment on above: Performed By: #### A DIFF, BMP, ANEU, CBC, GFR #### [place] [id number] Sodium [Moles/Vol] 135 mmol/L Low 136-145 [facility] Comment on above: Performed By: #### A DIFF, BMP, ANEU, CBC, GFR #### [address] [address] Urea nitrogen [Mass/Vol] 28 mg/dL High 7-18 [facility] Comment on above: Performed By: #### A DIFF, BMP, ANEU, CBC, GFR #### [address] [address] CBCon 11-23-2024 Erythrocyte distribution width (RBC) [Ratio] 14.3 % Normal 11.5-15.5 [facility] Comment on above: Performed By: #### A DIFF, BMP, ANEU, CBC, GFR #### [address] [address] Hematocrit (Bld) [Volume fraction] 27.6 % Low 34.0-46.0 [facility] Comment on above: Performed By: #### A DIFF, BMP, ANEU, CBC, GFR #### [address] [address] Hgb 9.3 G/dL Low 12.0-16.0 [facility] Comment on above: Performed By: #### A DIFF, BMP, ANEU, CBC, GFR #### [address] [address] MCH (RBC) [Entitic mass] 31.4 pg Normal 27.0-33.0 [facility] Comment on above: Performed By: #### A DIFF, BMP, ANEU, CBC, GFR #### [address] [address] MCHC 33.6 G/dL Normal 32.0-36.0 [facility] Comment on above: Performed By: #### A DIFF, BMP, ANEU, CBC, GFR #### [address] [address] MCV (RBC) [Entitic vol] 93.5 fL Normal 80.0-99.0 [facility] Comment on above: Performed By: #### A DIFF, BMP, ANEU, CBC, GFR #### [address] [address] Platelet 237 10 3/mcL Normal 150-450 [facility] Comment on above: Performed By: #### A DIFF, BMP, ANEU, CBC, GFR #### [address] [address] Platelet mean volume (Bld) [Entitic vol] 7.4 fL Normal 6.6-10.5 [facility] Comment on above: Performed By: #### A DIFF, BMP, ANEU, CBC, GFR #### [address] [address] RBC 2.95 10 6/mcL Low 4.10-5.30 [facility] Comment on above: Performed By: #### A DIFF, BMP, ANEU, CBC, GFR #### [place] [address] WBC 8.6 10 3/mcL Normal 4.5-10.8 [facility] Comment on above: Performed By: #### A DIFF, BMP, ANEU, CBC, GFR #### [place] [address] Cesar 11-23-2024 Ferritin [Mass/Vol] 474.0 ng/mL High 8.0-252.0 [facility] Comment on above: Performed By: #### A DIFF, BMP, ANEU, CBC, GFR #### [place] [address] FESon 11-23-2024 Iron [Mass/Vol] 16 ug/dL Low 50-170 [facility] Comment on above: Performed By: #### A DIFF, BMP, ANEU, CBC, GFR #### [place] [address] Iron Sat 10 % Normal [facility] Comment on above: Performed By: #### A DIFF, BMP, ANEU, CBC, GFR #### [place] [address] TIBC 159 mcg/dL Low 250-450 [facility] Comment on above: Performed By: #### A DIFF, BMP, ANEU, CBC, GFR #### [place] [address] LABORATORYOrdered By: SYSTEM SYSTEM on 11-23-2024 Ferritin [Mass/Vol] 474.0 ng/mL High 8.0 - 252.0 ng/mL AO ADM SS Iron [Mass/Vol] 16 ug/dL Low 50 - 170 mcg/dL AO ADM SS Iron binding capacity [Mass/Vol] 159 mcg/dL Low 250 - 450 mcg/dL AO ADM SS Iron Sat 10 % Invalid Interpretation Code AO ADM SS MGon 11-23-2024 Magnesium [Mass/Vol] 2.1 mg/dL Normal 1.8-2.4 [facility] Comment on above: Performed By: #### A DIFF, BMP, ANEU, CBC, GFR #### [address] [address] .Auto Diffon 11-22-2024 Basophil, Absolute 0.1 10 3/mcL Normal 0.0-0.2 [facility] Comment on above: Performed By: #### A DIFF, BMP, ANEU, CBC, GFR #### [address] [address] Basophils/100 WBC (Bld) 0.7 % Normal 0.0-2.5 [facility] Comment on above: Performed By: #### A DIFF, BMP, ANEU, CBC, GFR #### [address] [address] Eosinophil, Absolute 0.0 10 3/mcL Normal 0.0-0.7 [facility] Comment on above: Performed By: #### A DIFF, BMP, ANEU, CBC, GFR #### [address] [address] Eosinophils/100 WBC (Bld) 0.1 % Normal 0.0-7.0 [facility] Comment on above: Performed By: #### A DIFF, BMP, ANEU, CBC, GFR #### [address] [address] Lymphocyte, Absolute 1.2 10 3/mcL Normal 0.9-4.3 [facility] Comment on above: Performed By: #### A DIFF, BMP, ANEU, CBC, GFR #### [address] [address] Lymphocytes/100 WBC (Bld) 11.8 % Low 20.0-40.0 [facility] Comment on above: Performed By: #### A DIFF, BMP, ANEU, CBC, GFR #### [address] [address] Monocyte, Absolute 0.7 10 3/mcL Normal 0.1-1.4 [facility] Comment on above: Performed By: #### A DIFF, BMP, ANEU, CBC, GFR #### [address] [address] Monocytes/100 WBC (Bld) 7.1 % Normal 2.0-13.0 [facility] Comment on above: Performed By: #### A DIFF, BMP, ANEU, CBC, GFR #### [place] [id number] [place], [place] [address] Neutrophils/100 WBC (Bld) 80.3 % High 50.0-75.0 [facility] Comment on above: Performed By: #### A DIFF, BMP, ANEU, CBC, GFR #### [address] [address] .GFRon 11-22-2024 Estimated Glomerular Filtration Rate 82 ml/min/1.73sqm Normal [facility] Comment on above: Result Comment: Stages of Chronic Kidney Disease (CKD) Stage Description eGFR(ml/min/1.73 sq.m.) CKD 1 Normal kidney function or >=90 normal kindney function with possible kidney damage (ex. Proteinuria) CKD 2 Kidney damage with mild loss 60-89 of kidney function CKD 3a Mild to moderate loss of kidney 45-59 function CKD 3b Moderate to severe loss of 30-44 of kindey function CKD 4 Severe loss of kidney function 15-29 CKD 5 Kidney failure <15 Note: ( live 11/03/2024) the eGFR calculation was updated to the 2020 CKD-EPI creatinine equation without a race factor to calculate the eGFR results. Performed By: #### A DIFF, BMP, ANEU, CBC, GFR #### [address] [address] Estimated Glomerular Filtration Rate 76 ml/min/1.73sqm Normal [facility] Comment on above: Result Comment: Stages of Chronic Kidney Disease (CKD) Stage Description eGFR(ml/min/1.73 sq.m.) CKD 1 Normal kidney function or >=90 normal kindney function with possible kidney damage (ex. Proteinuria) CKD 2 Kidney damage with mild loss 60-89 of kidney function CKD 3a Mild to moderate loss of kidney 45-59 function CKD 3b Moderate to severe loss of 30-44 of kindey function CKD 4 Severe loss of kidney function 15-29 CKD 5 Kidney failure <15 Note: (go live 2024) the eGFR calculation was updated to the 2020 CKD-EPI creatinine equation without a race factor to calculate the eGFR results. Performed By: #### C BC, MORPH, MG, DIFF #### [place] [id number] [place], [place] [address] Estimated Glomerular Filtration Rate 52 ml/min/1.73sqm Normal [facility] Comment on above: Result Comment: Stages of Chronic Kidney Disease (CKD) Stage Description eGFR(ml/min/1.73 sq.m.) CKD 1 Normal kidney function or >=90 normal kindney function with possible kidney damage (ex. Proteinuria) CKD 2 Kidney damage with mild loss 60-89 of kidney function CKD 3a Mild to moderate loss of kidney 45-59 function CKD 3b Moderate to severe loss of 30-44 of kindey function CKD 4 Severe loss of kidney function 15-29 CKD 5 Kidney failure <15 Note: (go live 2024) the eGFR calculation was updated to the 2020 CKD-EPI creatinine equation without a race factor to calculate the eGFR results. Performed By: #### C BC, MORPH, MG, DIFF #### [address] [address] .NEUABSon 11-22-2024 Neutrophil, Absolute 8.5 10 3/mcL High 2.3-8.1 [facility] Comment on above: Performed By: #### A DIFF, BMP, ANEU, CBC, GFR #### [place] [id number] [place], [place] [address] BMPon 11-22-2024 BUN/Creatinine Ratio 39 ratio High 7-27 [facility] Comment on above: Performed By: #### A DIFF, BMP, ANEU, CBC, GFR #### [address] [address] Calcium [Mass/Vol] 8.7 mg/dL Normal 8.4-10.2 [facility] Comment on above: Performed By: #### A DIFF, BMP, ANEU, CBC, GFR #### [place] [id number] [place], [place] [address] Chloride [Moles/Vol] 96 mmol/L Low 98-107 [facility] Comment on above: Performed By: #### A DIFF, BMP, ANEU, CBC, GFR #### [address] [address] CO2 [Moles/Vol] 28 mmol/L Normal 23-31 [facility] Comment on above: Performed By: #### A DIFF, BMP, ANEU, CBC, GFR #### [address] [address] Creatinine [Mass/Vol] 0.75 mg/dL Normal 0.55-1.02 [facility] Comment on above: Result Comment: Test ing performed on Siemens Dimension EXL analyzer using a modified kinetic Gris technique. Performed By: #### A DIFF, BMP, ANEU, CBC, GFR #### [address] [address] Electrolyte Balance 6.0 mEq/L Normal 4.0-15.0 [facility] Comment on above: Performed By: #### A DIFF, BMP, ANEU, CBC, GFR #### [address] [address] Glucose [Mass/Vol] 123 mg/dL High 83-110 [facility] Comment on above: Performed By: #### A DIFF, BMP, ANEU, CBC, GFR #### [address] [address] Potassium [Moles/Vol] 3.9 mmol/L Normal 3.5-5.1 [facility] Comment on above: Performed By: #### A DIFF, BMP, ANEU, CBC, GFR #### [address] [address] Sodium [Moles/Vol] 130 mmol/L Low 136-145 [facility] Comment on above: Performed By: #### A DIFF, BMP, ANEU, CBC, GFR #### [address] [address] Urea nitrogen [Mass/Vol] 29 mg/dL High 7-18 [facility] Comment on above: Performed By: #### A DIFF, BMP, ANEU, CBC, GFR #### [address] [address] BUN/Creatinine Ratio 48 ratio High 7-27 [facility] Comment on above: Performed By: #### C BC, MORPH, MG, DIFF #### [address] [address] Calcium [Mass/Vol] 8.9 mg/dL Normal 8.4-10.2 [facility] Comment on above: Performed By: #### C BC, MORPH, MG, DIFF #### [address] [address] Chloride [Moles/Vol] 93 mmol/L Low 98-107 [facility] Comment on above: Performed By: #### C BC, MORPH, MG, DIFF #### [address] [address] CO2 [Moles/Vol] 26 mmol/L Normal 23-31 [facility] Comment on above: Performed By: #### C BC, MORPH, MG, DIFF #### [address] [address] Creatinine [Mass/Vol] 0.80 mg/dL Normal 0.55-1.02 [facility] Comment on above: Result Comment: Test ing performed on Siem[employer] Dimension EXL analyzer using a modified kinetic Gris technique. Performed By: #### C BC, MORPH, MG, DIFF #### [address] [address] Electrolyte Balance 6.0 mEq/L Normal 4.0-15.0 [facility] Comment on above: Performed By: #### C BC, MORPH, MG, DIFF #### [address] [address] Glucose [Mass/Vol] 105 mg/dL Normal 83-110 [facility] Comment on above: Performed By: #### C BC, MORPH, MG, DIFF #### [address] [address] Potassium [Moles/Vol] 4.2 mmol/L Normal 3.5-5.1 [facility] Comment on above: Performed By: #### C BC, MORPH, MG, DIFF #### [address] [address] Sodium [Moles/Vol] 125 mmol/L Low 136-145 [facility] Comment on above: Performed By: #### C BC, MORPH, MG, DIFF #### [address] [address] Urea nitrogen [Mass/Vol] 38 mg/dL High 7-18 [facility] Comment on above: Performed By: #### C BC, MORPH, MG, DIFF #### [address] [address] BUN/Creatinine Ratio 36 ratio High 7-27 [facility] Comment on above: Performed By: #### C BC, MORPH, MG, DIFF #### [address] [address] Calcium [Mass/Vol] 8.3 mg/dL Low 8.4-10.2 [facility] Comment on above: Performed By: #### C BC, MORPH, MG, DIFF #### [address] [address] Chloride [Moles/Vol] 92 mmol/L Low 98-107 [facility] Comment on above: Performed By: #### C BC, MORPH, MG, DIFF #### [address] [address] CO2 [Moles/Vol] 26 mmol/L Normal 23-31 [facility] Comment on above: Performed By: #### C BC, MORPH, MG, DIFF #### [address] [address] Creatinine [Mass/Vol] 1.10 mg/dL High 0.55-1.02 [facility] Comment on above: Result Comment: Test ing performed on Siemens Dimension EXL analyzer using a modified kinetic Gris technique. Performed By: #### C BC, MORPH, MG, DIFF #### [address] [address] Electrolyte Balance 5.0 mEq/L Normal 4.0-15.0 [facility] Comment on above: Performed By: #### C BC, MORPH, MG, DIFF #### [address] [address] Glucose [Mass/Vol] 122 mg/dL High 83-110 [facility] Comment on above: Performed By: #### C BC, MORPH, MG, DIFF #### [place] [address] Potassium [Moles/Vol] 5.7 mmol/L High 3.5-5.1 [facility] Comment on above: Performed By: #### C BC, MORPH, MG, DIFF #### [place] [address] Sodium [Moles/Vol] 123 mmol/L Low 136-145 [facility] Comment on above: Performed By: #### C BC, MORPH, MG, DIFF #### [place] [address] Urea nitrogen [Mass/Vol] 40 mg/dL High 7-18 [facility] Comment on above: Performed By: #### C BC, MORPH, MG, DIFF #### [address] [address] CBCon 11-22-2024 Erythrocyte distribution width (RBC) [Ratio] 14.2 % Normal 11.5-15.5 [facility] Comment on above: Performed By: #### A DIFF, BMP, ANEU, CBC, GFR #### [address] [address] Hematocrit (Bld) [Volume fraction] 25.5 % Low 34.0-46.0 [facility] Comment on above: Performed By: #### A DIFF, BMP, ANEU, CBC, GFR #### [address] [address] Hgb 8.7 G/dL Low 12.0-16.0 [facility] Comment on above: Performed By: #### A DIFF, BMP, ANEU, CBC, GFR #### [address] [address] MCH (RBC) [Entitic mass] 31.4 pg Normal 27.0-33.0 [facility] Comment on above: Performed By: #### A DIFF, BMP, ANEU, CBC, GFR #### [address] [address] MCHC 34.3 G/dL Normal 32.0-36.0 [facility] Comment on above: Performed By: #### A DIFF, BMP, ANEU, CBC, GFR #### [address] [address] MCV (RBC) [Entitic vol] 91.5 fL Normal 80.0-99.0 [facility] Comment on above: Performed By: #### A DIFF, BMP, ANEU, CBC, GFR #### [place] [address] Platelet 211 10 3/mcL Normal 150-450 [facility] Comment on above: Performed By: #### A DIFF, BMP, ANEU, CBC, GFR #### [place] [address] Platelet mean volume (Bld) [Entitic vol] 7.5 fL Normal 6.6-10.5 [facility] Comment on above: Performed By: #### A DIFF, BMP, ANEU, CBC, GFR #### [address] [address] RBC 2.78 10 6/mcL Low 4.10-5.30 [facility] Comment on above: Performed By: #### A DIFF, BMP, ANEU, CBC, GFR #### [address] [address] WBC 10.5 10 3/mcL Normal 4.5-10.8 [facility] Comment on above: Performed By: #### A DIFF, BMP, ANEU, CBC, GFR #### [address] [address] LABORATORYOrdered By: Alicia King on 11-22-2024 BE Venous -2.9 mmol/L Normal -3.0 - 3.0 mmol/L AO Rapid Comm SS CO2 [Moles/Vol] 22.1 mmol/L Normal 22.0 - 32.0 mmol/L AO Rapid Comm SS HCO3 (Bld) [Moles/Vol] 21.1 mmol/L Normal 21.0 - 30.0 mmol/L AO Rapid Comm SS pCO2 [place] 33.2 mm[Hg] Low 41.0 - 51.0 mm Hg AO Rapid Comm SS pH (Bld) 7.420 [pH] Normal 7.380 - 7.460 AO Rapid Comm SS pO2 [place] 183.8 mm[Hg] High 35.0 - 40.0 mm Hg AO Rapid Comm SS LABORATORYOrdered By: SYSTEM SYSTEM on 11-22-2024 Lactate [Moles/Vol] 1.4 mmol/L Normal 0.4 - 2. 0 mmol/L AO ADM SS LACon 11-22-2024 Lactic Acid Lvl 1.4 mmol/L Normal 0.4-2.0 [facility] Comment on above: Performed By: #### C BC, MORPH, MG, DIFF #### [address] [address] MGon 11-22-2024 Magnesium [Mass/Vol] 2.0 mg/dL Normal 1.8-2.4 [facility] Comment on above: Performed By: #### A DIFF, BMP, ANEU, CBC, GFR #### [place] [id number] [place], [place] [address] No Panel Informationon 11-22 Microscopic examination of blood, culture Blood Culture: No Growth at 5 days. [facility] Work Phone: VBGon 11-22-2024 BE Venous -2.9 mmol/L Normal -3.0-3.0 [facility] Comment on above: Performed By: #### C BC, MORPH, MG, DIFF #### [place] [id number] [place], [place] [address] CO2 [Moles/Vol] 22.1 mmol/L Normal 22.0-32.0 [facility] Comment on above: Performed By: #### C BC, MORPH, MG, DIFF #### [address] [address] HCO3 (Bld) [Moles/Vol] 21.1 mmol/L Normal 21.0-30.0 [facility] Comment on above: Performed By: #### C BC, MORPH, MG, DIFF #### [address] [address] Oxygen saturation in Blood 99.4 % High 70.0-75.0 [facility] Comment on above: Performed By: #### C BC, MORPH, MG, DIFF #### [address] [address] pCO2 [place] 33.2 mmHg Low 41.0-51.0 [facility] Comment on above: Performed By: #### C BC, MORPH, MG, DIFF #### [address] [address] pH Venous 7.420 Normal 7.380-7.46 0 [facility] Comment on above: Performed By: #### C BC, MORPH, MG, DIFF #### [address] [address] pO2 [place] 183.8 mmHg High 35.0-40.0 [facility] Comment on above: Performed By: #### C BC, MORPH, MG, DIFF #### [address] [address] .Auto Diffon 11-21-2024 Basophil, Absolute 0.1 10 3/mcL Normal 0.0-0.2 [facility] Comment on above: Performed By: #### A DIFF, BMP, ANEU, CBC, GFR #### [address] [address] Basophils/100 WBC (Bld) 0.6 % Normal 0.0-2.5 [facility] Comment on above: Performed By: #### A DIFF, BMP, ANEU, CBC, GFR #### [address] [address] Eosinophil, Absolute 0.1 10 3/mcL Normal 0.0-0.7 [facility] Comment on above: Performed By: #### A DIFF, BMP, ANEU, CBC, GFR #### [address] [address] Eosinophils/100 WBC (Bld) 1.1 % Normal 0.0-7.0 [facility] Comment on above: Performed By: #### A DIFF, BMP, ANEU, CBC, GFR #### [address] [address] Lymphocyte, Absolute 1.7 10 3/mcL Normal 0.9-4.3 [facility] Comment on above: Performed By: #### A DIFF, BMP, ANEU, CBC, GFR #### [address] [address] Lymphocytes/100 WBC (Bld) 19.1 % Low 20.0-40.0 [facility] Comment on above: Performed By: #### A DIFF, BMP, ANEU, CBC, GFR #### [address] [address] Monocyte, Absolute 1.0 10 3/mcL Normal 0.1-1.4 [facility] Comment on above: Performed By: #### A DIFF, BMP, ANEU, CBC, GFR #### [address] [address] Monocytes/100 WBC (Bld) 11.6 % Normal 2.0-13.0 [facility] Comment on above: Performed By: #### A DIFF, BMP, ANEU, CBC, GFR #### [address] [address] Neutrophils/100 WBC (Bld) 67.6 % Normal 50.0-75.0 [facility] Comment on above: Performed By: #### A DIFF, BMP, ANEU, CBC, GFR #### [address] [address] .GFRon 11-21-2024 Estimated Glomerular Filtration Rate 75 ml/min/1.73sqm Normal [facility] Comment on above: Result Comment: Stages of Chronic Kidney Disease (CKD) Stage Description eGFR(ml/min/1.73 sq.m.) CKD 1 Normal kidney function or >=90 normal kindney function with possible kidney damage (ex. Proteinuria) CKD 2 Kidney damage with mild loss 60-89 of kidney function CKD 3a Mild to moderate loss of kidney 45-59 function CKD 3b Moderate to severe loss of 30-44 of kindey function CKD 4 Severe loss of kidney function 15-29 CKD 5 Kidney failure <15 Note: ( live 11/03/2024) the eGFR calculation was updated to the 2020 CKD-EPI creatinine equation without a race factor to calculate the eGFR results. Performed By: #### A DIFF, BMP, ANEU, CBC, GFR #### [place] [id number] [place], [place] [address] Estimated Glomerular Filtration Rate 58 ml/min/1.73sqm [facility] Comment on above: Result Comment: Stages of Chronic Kidney Disease (CKD) Stage Description eGFR(ml/min/1.73 sq.m.) CKD 1 Normal kidney function or >=90 normal kindney function with possible kidney damage (ex. Proteinuria) CKD 2 Kidney damage with mild loss 60-89 of kidney function CKD 3a Mild to moderate loss of kidney 45-59 function CKD 3b Moderate to severe loss of 30-44 of kindey function CKD 4 Severe loss of kidney function 15-29 CKD 5 Kidney failure <15 Note: ( live 11/03/2024) the eGFR calculation was updated to the 2020 CKD-EPI creatinine equation without a race factor to calculate the eGFR results. Performed By: #### A DIFF, BMP, ANEU, CBC, GFR #### [place] [id number] [place], [place] [address] Estimated Glomerular Filtration Rate 62 ml/min/1.73sqm [facility] Comment on above: Result Comment: Stages of Chronic Kidney Disease (CKD) Stage Description eGFR(ml/min/1.73 sq.m.) CKD 1 Normal kidney function or >=90 normal kindney function with possible kidney damage (ex. Proteinuria) CKD 2 Kidney damage with mild loss 60-89 of kidney function CKD 3a Mild to moderate loss of kidney 45-59 function CKD 3b Moderate to severe loss of 30-44 of kindey function CKD 4 Severe loss of kidney function 15-29 CKD 5 Kidney failure <15 Note: (go live 2024) the eGFR calculation was updated to the 2020 CKD-EPI creatinine equation without a race factor to calculate the eGFR results. Performed By: #### A DIFF, BMP, ANEU, CBC, GFR #### [address] [address] .NEUABSon 11-21-2024 Neutrophil, Absolute 5.9 10 3/mcL Normal 2.3-8.1 [facility] Comment on above: Performed By: #### A DIFF, BMP, ANEU, CBC, GFR #### [address] [address] BMPon 11-21-2024 BUN/Creatinine Ratio 51 ratio High 7-27 [facility] Comment on above: Performed By: #### A DIFF, BMP, ANEU, CBC, GFR #### [address] [address] Calcium [Mass/Vol] 9.0 mg/dL Normal 8.4-10.2 [facility] Comment on above: Performed By: #### A DIFF, BMP, ANEU, CBC, GFR #### [address] [address] Chloride [Moles/Vol] 90 mmol/L Low 98-107 [facility] Comment on above: Performed By: #### A DIFF, BMP, ANEU, CBC, GFR #### [address] [address] CO2 [Moles/Vol] 27 mmol/L Normal 23-31 [facility] Comment on above: Performed By: #### A DIFF, BMP, ANEU, CBC, GFR #### [address] [address] Creatinine [Mass/Vol] 0.81 mg/dL Normal 0.55-1.02 [facility] Comment on above: Result Comment: Test ing performed on Siemens Dimension EXL analyzer using a modified kinetic Gris technique. Performed By: #### A DIFF, BMP, ANEU, CBC, GFR #### [address] [address] Electrolyte Balance 3.0 mEq/L Low 4.0-15.0 [facility] Comment on above: Performed By: #### A DIFF, BMP, ANEU, CBC, GFR #### [address] [address] Glucose [Mass/Vol] 120 mg/dL High 83-110 [facility] Comment on above: Performed By: #### A DIFF, BMP, ANEU, CBC, GFR #### [address] [address] Potassium [Moles/Vol] 5.4 mmol/L High 3.5-5.1 [facility] Comment on above: Performed By: #### A DIFF, BMP, ANEU, CBC, GFR #### [address] [address] Sodium [Moles/Vol] 120 mmol/L Low 136-145 [facility] Comment on above: Performed By: #### A DIFF, BMP, ANEU, CBC, GFR #### [address] [address] Urea nitrogen [Mass/Vol] 41 mg/dL High 7-18 [facility] Comment on above: Performed By: #### A DIFF, BMP, ANEU, CBC, GFR #### [address] [address] BUN/Creatinine Ratio 42 ratio High 7-27 [facility] Comment on above: Performed By: #### A DIFF, BMP, ANEU, CBC, GFR #### [address] [address] Calcium [Mass/Vol] 8.6 mg/dL Normal 8.4-10.2 [facility] Comment on above: Performed By: #### A DIFF, BMP, ANEU, CBC, GFR #### [address] [address] Chloride [Moles/Vol] 89 mmol/L Low 98-107 [facility] Comment on above: Performed By: #### A DIFF, BMP, ANEU, CBC, GFR #### [address] [address] CO2 [Moles/Vol] 25 mmol/L Normal 23-31 [facility] Comment on above: Performed By: #### A DIFF, BMP, ANEU, CBC, GFR #### [address] [address] Creatinine [Mass/Vol] 1.00 mg/dL Normal 0.55-1.02 [facility] Comment on above: Result Comment: Test ing performed on [employer] Dimension EXL analyzer using a modified kinetic Gris technique. Performed By: #### A DIFF, BMP, ANEU, CBC, GFR #### [place] [address] Electrolyte Balance 7.0 mEq/L Normal 4.0-15.0 [facility] Comment on above: Performed By: #### A DIFF, BMP, ANEU, CBC, GFR #### [place] [address] Glucose [Mass/Vol] 158 mg/dL High 83-110 [facility] Comment on above: Performed By: #### A DIFF, BMP, ANEU, CBC, GFR #### [address] [address] Potassium [Moles/Vol] 5.0 mmol/L Normal 3.5-5.1 [facility] Comment on above: Performed By: #### A DIFF, BMP, ANEU, CBC, GFR #### [address] [address] Sodium [Moles/Vol] 121 mmol/L Low 136-145 [facility] Comment on above: Performed By: #### A DIFF, BMP, ANEU, CBC, GFR #### [address] [address] Urea nitrogen [Mass/Vol] 42 mg/dL High 7-18 [facility] Comment on above: Performed By: #### A DIFF, BMP, ANEU, CBC, GFR #### [address] [address] BUN/Creatinine Ratio 49 ratio High 7-27 [facility] Comment on above: Performed By: #### A DIFF, BMP, ANEU, CBC, GFR #### [place] [address] Calcium [Mass/Vol] 9.2 mg/dL Normal 8.4-10.2 [facility] Comment on above: Performed By: #### A DIFF, BMP, ANEU, CBC, GFR #### [place] [address] Chloride [Moles/Vol] 88 mmol/L Low 98-107 [facility] Comment on above: Performed By: #### A DIFF, BMP, ANEU, CBC, GFR #### [place] [address] CO2 [Moles/Vol] 28 mmol/L Normal 23-31 [facility] Comment on above: Performed By: #### A DIFF, BMP, ANEU, CBC, GFR #### [place] [address] Creatinine [Mass/Vol] 0.94 mg/dL Normal 0.55-1.02 [facility] Comment on above: Result Comment: Test ing performed on Siemens Dimension EXL analyzer using a modified kinetic Gris technique. Performed By: #### A DIFF, BMP, ANEU, CBC, GFR #### [place] [address] Electrolyte Balance 4.0 mEq/L Normal 4.0-15.0 [facility] Comment on above: Performed By: #### A DIFF, BMP, ANEU, CBC, GFR #### [place] [address] Glucose [Mass/Vol] 103 mg/dL Normal 83-110 [facility] Comment on above: Performed By: #### A DIFF, BMP, ANEU, CBC, GFR #### [address] [address] Potassium [Moles/Vol] 5.3 mmol/L High 3.5-5.1 [facility] Comment on above: Performed By: #### A DIFF, BMP, ANEU, CBC, GFR #### [place] [address] Sodium [Moles/Vol] 120 mmol/L Low 136-145 [facility] Comment on above: Performed By: #### A DIFF, BMP, ANEU, CBC, GFR #### [place] [address] Urea nitrogen [Mass/Vol] 46 mg/dL High 7-18 [facility] Comment on above: Performed By: #### A DIFF, BMP, ANEU, CBC, GFR #### [place] [address] CBCon 11-21-2024 Erythrocyte distribution width (RBC) [Ratio] 14.0 % Normal 11.5-15.5 [facility] Comment on above: Performed By: #### A DIFF, BMP, ANEU, CBC, GFR #### [place] [address] Hematocrit (Bld) [Volume fraction] 30.9 % Low 34.0-46.0 [facility] Comment on above: Performed By: #### A DIFF, BMP, ANEU, CBC, GFR #### [place] [address] Hgb 10.6 G/dL Low 12.0-16.0 [facility] Comment on above: Performed By: #### A DIFF, BMP, ANEU, CBC, GFR #### [place] [address] MCH (RBC) [Entitic mass] 31.3 pg Normal 27.0-33.0 [facility] Comment on above: Performed By: #### A DIFF, BMP, ANEU, CBC, GFR #### [place] [address] MCHC 34.3 G/dL Normal 32.0-36.0 [facility] Comment on above: Performed By: #### A DIFF, BMP, ANEU, CBC, GFR #### [place] [id number] MCV (RBC) [Entitic vol] 91.3 fL Normal 80.0-99.0 [facility] Comment on above: Performed By: #### A DIFF, BMP, ANEU, CBC, GFR #### [place] [id number] [place], [place] [address] Platelet 285 10 3/mcL Normal 150-450 [facility] Comment on above: Performed By: #### A DIFF, BMP, ANEU, CBC, GFR #### [place] [id number] [place] [address] Platelet mean volume (Bld) [Entitic vol] 7.3 fL Normal 6.6-10.5 [facility] Comment on above: Performed By: #### A DIFF, BMP, ANEU, CBC, GFR #### [place] [id number] [place] [address] RBC 3.39 10 6/mcL Low 4.10-5.30 [facility] Comment on above: Performed By: #### A DIFF, BMP, ANEU, CBC, GFR #### [address] [address] WBC 8.7 10 3/mcL Normal 4.5-10.8 [facility] Comment on above: Performed By: #### A DIFF, BMP, ANEU, CBC, GFR #### [address] [address] LABORATORYOrdered By: Matt Gomez on 11-21-2024 Osmolality (U) [Osmolality] 421 mosm/kg Normal 390 - 1090 mOsm/kg Manual Chem SS Osmolality [Osmolality] 268 mosm/kg Low 275 - 300 mOsm/kg Manual Chem SS LABORATORYOrdered By: SYSTEM SYSTEM on 11-21-2024 Sodium (U) [Moles/Vol] 9 mmol/L Invalid Interpretation Code AO ADM SS Basophils (Bld) [#/Vol] 0.1 103/mcL Normal 0.0 - 0.2 10^3/mcL AO Workflow SS Basophils/100 WBC (Bld) 0.6 % Normal 0.0 - 2.5 % AO Workflow SS Calcium [Mass/Vol] 9.2 mg/dL Normal 8.4 - 10. 2 mg/dL AO ADM SS Chloride [Moles/Vol] 88 mmol/L Low 98 - 10 7 mmol/L AO ADM SS CO2 [Moles/Vol] 28 mmol/L Normal 23 - 31 mmol/L AO ADM SS Creatinine [Mass/Vol] 0.94 mg/dL Normal 0.55 - 1.02 mg/dL AO ADM SS Comment on above: Interpretive Data: T esting performed on Siemens Dimension EXL analyzer using a modified kinetic Gris technique. Electrolyte Balance 4.0 mEq/L Normal 4.0 - 15 .0 mEq/L AO ADM SS Eosinophil, Absolute 0.1 103/mcL Normal 0.0 - 0 .7 10^3/mcL AO Workflow SS Eosinophils/100 WBC (Bld) 1.1 % Normal 0. 0 - 7.0 % AO Workflow SS Erythrocyte distribution width (RBC) [Ratio] 14.0 % Normal 11.5 - 15.5 % AO Workflow SS Estimated Glomerular Filtration Rate 62 ml/min/1.73sqm Invalid Interpretation Code AO Chemistry S Comment on above: Interpretive Data: Stages of Chronic Kidney Disease (CKD) Stage Description eGFR(ml/min/1.73 sq.m.) CKD 1 Normal kidney function or >=90 normal kindney function with possible kidney damage (ex. Proteinuria) CKD 2 Kidney damage with mild loss 60-89 of kidney function CKD 3a Mild to moderate loss of kidney 45-59 function CKD 3b Moderate to severe loss of 30-44 of kindey function CKD 4 Severe loss of kidney function 15-29 CKD 5 Kidney failure <15 Note: (go live 2024) the eGFR calculation was updated to the 2020 CKD-EPI creatinine equation without a race factor to calculate the eGFR results. Glucose [Mass/Vol] 103 mg/dL Normal 83 - 110 mg/dL AO ADM SS Hematocrit (Bld) [Volume fraction] 30.9 % Low 34.0 - 46.0 % AO Workflow SS Hemoglobin (Bld) [Mass/Vol] 10.6 G/dL Low 12.0 - 16.0 G/dL AO Workflow SS Lymphocytes (Bld) [#/Vol] 1.7 103/mcL Normal 0. 9 - 4.3 10^3/mcL AO Workflow SS Lymphocytes/100 WBC (Bld) 19.1 % Low 20 .0 - 40.0 % AO Workflow SS MCH (RBC) [Entitic mass] 31.3 pg Normal 27. 0 - 33.0 pg AO Workflow SS MCHC 34.3 G/dL Normal 32.0 - 36.0 G/dL AO Workflow SS MCV (RBC) [Entitic vol] 91.3 fL Normal 80.0 - 99.0 fL AO Workflow SS Monocytes (Bld) [#/Vol] 1.0 103/mcL Normal 0.1 - 1.4 10^3/mcL AO Workflow SS Monocytes/100 WBC (Bld) 11.6 % Normal 2.0 - 13.0 % AO Workflow SS Neutrophils (Bld) [#/Vol] 5.9 103/mcL Normal 2. 3 - 8.1 10^3/mcL AO Workflow SS Neutrophils/100 WBC (Bld) 67.6 % Normal 50 .0 - 75.0 % AO Workflow SS Platelet mean volume (Bld) [Entitic vol] 7.3 fL Normal 6.6 - 10.5 fL AO Workflow SS Platelets (Bld) [#/Vol] 285 103/mcL Normal 150 - 450 10^3/mcL AO Workflow SS Potassium [Moles/Vol] 5.3 mmol/L High 3.5 - 5.1 mmol/L AO ADM SS RBC (Bld) [#/Vol] 3.39 106/mcL Low 4.10 - 5.30 10^6/mcL AO Workflow SS Sodium [Moles/Vol] 120 mmol/L Low 136 - 145 mmol/L AO ADM SS Urea nitrogen [Mass/Vol] 46 mg/dL High 7 - 18 mg/dL AO ADM SS Urea nitrogen/Creatinine [Mass ratio] 49 ratio High 7 - 27 ratio AO ADM SS WBC (Bld) [#/Vol] 8.7 103/mcL Normal 4.5 - 10.8 10^3/mcL AO Workflow SS NAURon 11-21-2024 Sodium [Moles/Vol] 9 mmol/L Normal [facility] Comment on above: Performed By: #### N AUR #### [place] [id number] [place], [place] [address] #### OSMOU #### [address] [address] OSMOSon 11-21-2024 Osmolality [Osmolality] 268 mosm/kg Low 275-300 [facility] Comment on above: Performed By: #### A DIFF, BMP, ANEU, CBC, GFR #### [address] [address] OSMOUon 11-21-2024 U Osmolality 421 mOsm/kg Normal 390-1090 [facility] Comment on above: Performed By: #### C BC, MORPH, MG, DIFF #### [address] [address] .Auto Diffon 11-13-2024 Basophil, Absolute 0.1 10 3/mcL Normal 0.0-0.2 [facility] Comment on above: Performed By: #### A DIFF, BMP, ANEU, CBC, GFR #### [address] [address] Basophils/100 WBC (Bld) 0.8 % Normal 0.0-2.5 [facility] Comment on above: Performed By: #### A DIFF, BMP, ANEU, CBC, GFR #### [address] [address] Eosinophil, Absolute 0.1 10 3/mcL Normal 0.0-0.7 [facility] Comment on above: Performed By: #### A DIFF, BMP, ANEU, CBC, GFR #### [address] [address] Eosinophils/100 WBC (Bld) 0.5 % Normal 0.0-7.0 [facility] Comment on above: Performed By: #### A DIFF, BMP, ANEU, CBC, GFR #### [address] [address] Lymphocyte, Absolute 1.6 10 3/mcL Normal 0.9-4.3 [facility] Comment on above: Performed By: #### A DIFF, BMP, ANEU, CBC, GFR #### [address] [address] Lymphocytes/100 WBC (Bld) 14.0 % Low 20.0-40.0 [facility] Comment on above: Performed By: #### A DIFF, BMP, ANEU, CBC, GFR #### [address] [address] Monocyte, Absolute 1.2 10 3/mcL Normal 0.1-1.4 [facility] Comment on above: Performed By: #### A DIFF, BMP, ANEU, CBC, GFR #### [address] [address] Monocytes/100 WBC (Bld) 11.0 % Normal 2.0-13.0 [facility] Comment on above: Performed By: #### A DIFF, BMP, ANEU, CBC, GFR #### [address] [address] Neutrophils/100 WBC (Bld) 73.7 % Normal 50.0-75.0 [facility] Comment on above: Performed By: #### A DIFF, BMP, ANEU, CBC, GFR #### [address] [address] .GFRon 11-13-2024 Estimated Glomerular Filtration Rate 86 ml/min/1.73sqm Normal [facility] Comment on above: Result Comment: Stages of Chronic Kidney Disease (CKD) Stage Description eGFR(ml/min/1.73 sq.m.) CKD 1 Normal kidney function or >=90 normal kindney function with possible kidney damage (ex. Proteinuria) CKD 2 Kidney damage with mild loss 60-89 of kidney function CKD 3a Mild to moderate loss of kidney 45-59 function CKD 3b Moderate to severe loss of 30-44 of kindey function CKD 4 Severe loss of kidney function 15-29 CKD 5 Kidney failure <15 Note: (go live 2024) the eGFR calculation was updated to the 2020 CKD-EPI creatinine equation without a race factor to calculate the eGFR results. Performed By: #### A DIFF, BMP, ANEU, CBC, GFR #### [address] [address] .NEUABSon 11-13-2024 Neutrophil, Absolute 8.3 10 3/mcL High 2.3-8.1 [facility] Comment on above: Performed By: #### A DIFF, BMP, ANEU, CBC, GFR #### [address] [address] BMPon 11-13-2024 BUN/Creatinine Ratio 36 ratio High 7-27 [facility] Comment on above: Performed By: #### A DIFF, BMP, ANEU, CBC, GFR #### [address] [address] Calcium [Mass/Vol] 8.8 mg/dL Normal 8.4-10.2 [facility] Comment on above: Performed By: #### A DIFF, BMP, ANEU, CBC, GFR #### [place] [address] Chloride [Moles/Vol] 95 mmol/L Low 98-107 [facility] Comment on above: Performed By: #### A DIFF, BMP, ANEU, CBC, GFR #### [place] [address] CO2 [Moles/Vol] 29 mmol/L Normal 23-31 [facility] Comment on above: Performed By: #### A DIFF, BMP, ANEU, CBC, GFR #### [place] [id number] Creatinine [Mass/Vol] 0.72 mg/dL Normal 0.55-1.02 [facility] Comment on above: Result Comment: Test ing performed on Siemens Dimension EXL analyzer using a modified kinetic Gris technique. Performed By: #### A DIFF, BMP, ANEU, CBC, GFR #### [place] [address] Electrolyte Balance 9.0 mEq/L Normal 4.0-15.0 [facility] Comment on above: Performed By: #### A DIFF, BMP, ANEU, CBC, GFR #### [place] [address] Glucose [Mass/Vol] 100 mg/dL Normal 83-110 [facility] Comment on above: Performed By: #### A DIFF, BMP, ANEU, CBC, GFR #### [place] [address] Potassium [Moles/Vol] 4.5 mmol/L Normal 3.5-5.1 [facility] Comment on above: Performed By: #### A DIFF, BMP, ANEU, CBC, GFR #### [address] [address] Sodium [Moles/Vol] 133 mmol/L Low 136-145 [facility] Comment on above: Performed By: #### A DIFF, BMP, ANEU, CBC, GFR #### [place] [address] Urea nitrogen [Mass/Vol] 26 mg/dL High 7-18 [facility] Comment on above: Performed By: #### A DIFF, BMP, ANEU, CBC, GFR #### [place] [id number] CBCon 11-13-2024 Erythrocyte distribution width (RBC) [Ratio] 14.6 % Normal 11.5-15.5 [facility] Comment on above: Performed By: #### A DIFF, BMP, ANEU, CBC, GFR #### [place] [address] Hematocrit (Bld) [Volume fraction] 34.0 % Normal 34.0-46.0 [facility] Comment on above: Performed By: #### A DIFF, BMP, ANEU, CBC, GFR #### [place] [address] Hgb 11.3 G/dL Low 12.0-16.0 [facility] Comment on above: Performed By: #### A DIFF, BMP, ANEU, CBC, GFR #### [address] [address] MCH (RBC) [Entitic mass] 30.9 pg Normal 27.0-33.0 [facility] Comment on above: Performed By: #### A DIFF, BMP, ANEU, CBC, GFR #### [place] [address] MCHC 33.1 G/dL Normal 32.0-36.0 [facility] Comment on above: Performed By: #### A DIFF, BMP, ANEU, CBC, GFR #### [address] [address] MCV (RBC) [Entitic vol] 93.1 fL Normal 80.0-99.0 [facility] Comment on above: Performed By: #### A DIFF, BMP, ANEU, CBC, GFR #### [place] [address] Platelet 540 10 3/mcL High 150-450 [facility] Comment on above: Performed By: #### A DIFF, BMP, ANEU, CBC, GFR #### [place] [address] Platelet mean volume (Bld) [Entitic vol] 7.8 fL Normal 6.6-10.5 [facility] Comment on above: Performed By: #### A DIFF, BMP, ANEU, CBC, GFR #### [place] [address] RBC 3.65 10 6/mcL Low 4.10-5.30 [facility] Comment on above: Performed By: #### A DIFF, BMP, ANEU, CBC, GFR #### [place] [address] WBC 11.3 10 3/mcL High 4.5-10.8 [facility] Comment on above: Performed By: #### A DIFF, BMP, ANEU, CBC, GFR #### [place] [address] LABORATORYOrdered By: SYSTEM SYSTEM on 11-13-2024 Basophils (Bld) [#/Vol] 0.1 103/mcL Normal 0.0 - 0.2 10^3/mcL AO Workflow SS Basophils/100 WBC (Bld) 0.8 % Normal 0.0 - 2.5 % AO Workflow SS Calcium [Mass/Vol] 8.8 mg/dL Normal 8.4 - 10. 2 mg/dL AO ADM SS Chloride [Moles/Vol] 95 mmol/L Low 98 - 10 7 mmol/L AO ADM SS CO2 [Moles/Vol] 29 mmol/L Normal 23 - 31 mmol/L AO ADM SS Creatinine [Mass/Vol] 0.72 mg/dL Normal 0.55 - 1.02 mg/dL AO ADM SS Comment on above: Interpretive Data: T esting performed on Siemens Dimension EXL analyzer using a modified kinetic Gris technique. Electrolyte Balance 9.0 mEq/L Normal 4.0 - 15 .0 mEq/L AO ADM SS Eosinophil, Absolute 0.1 103/mcL Normal 0.0 - 0 .7 10^3/mcL AO Workflow SS Eosinophils/100 WBC (Bld) 0.5 % Normal 0. 0 - 7.0 % AO Workflow SS Erythrocyte distribution width (RBC) [Ratio] 14.6 % Normal 11.5 - 15.5 % AO Workflow SS Estimated Glomerular Filtration Rate 86 ml/min/1.73sqm Invalid Interpretation Code AO Chemistry S Comment on above: Interpretive Data: Stages of Chronic Kidney Disease (CKD) Stage Description eGFR(ml/min/1.73 sq.m.) CKD 1 Normal kidney function or >=90 normal kindney function with possible kidney damage (ex. Proteinuria) CKD 2 Kidney damage with mild loss 60-89 of kidney function CKD 3a Mild to moderate loss of kidney 45-59 function CKD 3b Moderate to severe loss of 30-44 of kindey function CKD 4 Severe loss of kidney function 15-29 CKD 5 Kidney failure <15 Note: (go live 2024) the eGFR calculation was updated to the 2020 CKD-EPI creatinine equation without a race factor to calculate the eGFR results. Glucose [Mass/Vol] 100 mg/dL Normal 83 - 110 mg/dL AO ADM SS Hematocrit (Bld) [Volume fraction] 34.0 % Normal 34.0 - 46.0 % AO Workflow SS Hemoglobin (Bld) [Mass/Vol] 11.3 G/dL Low 12.0 - 16.0 G/dL AO Workflow SS Lymphocytes (Bld) [#/Vol] 1.6 103/mcL Normal 0. 9 - 4.3 10^3/mcL AO Workflow SS Lymphocytes/100 WBC (Bld) 14.0 % Low 20 .0 - 40.0 % AO Workflow SS MCH (RBC) [Entitic mass] 30.9 pg Normal 27. 0 - 33.0 pg AO Workflow SS MCHC 33.1 G/dL Normal 32.0 - 36.0 G/dL AO Workflow SS MCV (RBC) [Entitic vol] 93.1 fL Normal 80.0 - 99.0 fL AO Workflow SS Monocytes (Bld) [#/Vol] 1.2 103/mcL Normal 0.1 - 1.4 10^3/mcL AO Workflow SS Monocytes/100 WBC (Bld) 11.0 % Normal 2.0 - 13.0 % AO Workflow SS Neutrophils (Bld) [#/Vol] 8.3 103/mcL High 2. 3 - 8.1 10^3/mcL AO Workflow SS Neutrophils/100 WBC (Bld) 73.7 % Normal 50 .0 - 75.0 % AO Workflow SS Platelet mean volume (Bld) [Entitic vol] 7.8 fL Normal 6.6 - 10.5 fL AO Workflow SS Platelets (Bld) [#/Vol] 540 103/mcL High 150 - 450 10^3/mcL AO Workflow SS Potassium [Moles/Vol] 4.5 mmol/L Normal 3.5 - 5.1 mmol/L AO ADM SS RBC (Bld) [#/Vol] 3.65 106/mcL Low 4.10 - 5.30 10^6/mcL AO Workflow SS Sodium [Moles/Vol] 133 mmol/L Low 136 - 145 mmol/L AO ADM SS Urea nitrogen [Mass/Vol] 26 mg/dL High 7 - 18 mg/dL AO ADM SS Urea nitrogen/Creatinine [Mass ratio] 36 ratio High 7 - 27 ratio AO ADM SS WBC (Bld) [#/Vol] 11.3 103/mcL High 4.5 - 10.8 10^3/mcL AO Workflow SS Absolute lymphocyte countOrd ered By: Bautista Lizarraga on 11-10-2024 Lymphocytes Auto (Unsp spec) [#/Vol] 1.58 10*3/uL 0.83-4.51 [facility] Absolute neutrophil countOrd ered By: Bautista Lizarraga on 11-10-2024 Neutrophils (Bld) [#/Vol] 6.9 10*3/uL 2.0-7.7 [facility] Absolute neutrophil count 6.9 X10^3/uL 2.0-7.7 [facility] Automated lymphocyte count a s percentage of total leukocytesOrdered By: Bautista Lizarraga on 11-10-2024 Lymphocytes/100 WBC Auto (Unsp spec) 16.4 % Low 19-41 [facility] Basic Metabolic Profile (BMP )on 11-10-2024 BUN/CRE 43.8 RATIO High 10-20 [facility] Comment on above: Performed By: #### L 500.2500, L100.0100 ####[facility] [address] [place], [address] CA,Total 8.9 mg/dL Normal 8.5-10.1 [facility] Comment on above: Performed By: #### L 500.2500, L100.0100 ####[facility] [address] [place], [address] Chloride [Moles/Vol] 105 mmol/L Normal 98-107 [facility] Comment on above: Performed By: #### L 500.2500, L100.0100 ####[facility] [address] [place], [address] CO2 [Moles/Vol] 26.0 mmol/L Normal 21.0-32.0 [facility] Comment on above: Performed By: #### L 500.2500, L100.0100 ####[facility] [address] [place], [address] Creatinine [Mass/Vol] 0.48 mg/dL Low 0.55-1.02 [facility] Comment on above: Result Comment: The validity of the calculated GFR GFRAA in patients over70 years has not been determined. Clinical correlation isessential. Performed By: #### L 500.2500, L100.0100 ####[facility] [address] [place], [address] ECRCL 57.27 ml/min Normal [facility] Comment on above: Performed By: #### L 500.2500, L100.0100 ####[facility] [address] [place], [address] EST GFR - AA 161 mL/min Normal >60 [facility] Comment on above: Result Comment: Afri can [place] GFR Calc Performed By: #### L 500.2500, L100.0100 ####[facility] [address] [place], [address] GAP 5 Normal 5-15 [facility] Comment on above: Performed By: #### L 500.2500, L100.0100 ####[facility] [address] [place], [address] GFR/1.73 sq M.predicted among non-blacks MDRD (S/P/Bld) [Vol rate/Area] 133 mL/min/{1.73_m2} Normal >60 [facility] Comment on above: Result Comment: Non- GFR Calc Performed By: #### L 500.2500, L100.0100 ####[facility] [address] [place], [address] Glucose [Mass/Vol] 118 mg/dL High 74-106 [facility] Comment on above: Result Comment: Fast ing Glucose result from 100 to 125 mg/dLsuggests IMPAIRED HOMEOSTASIS per A.D.A. criteria. Performed By: #### L 500.2500, L100.0100 ####[facility] [address] [place], [address] Potassium [Moles/Vol] 4.2 mmol/L Normal 3.5-5.1 [facility] Comment on above: Performed By: #### L 500.2500, L100.0100 ####[facility] [address] [place], [address] Sodium [Moles/Vol] 136 mmol/L Normal 136-145 [facility] Comment on above: Performed By: #### L 500.2500, L100.0100 ####[facility] [address] [place], [address] Urea nitrogen [Mass/Vol] 21 mg/dL High 7-18 [facility] Comment on above: Performed By: #### L 500.2500, L100.0100 ####[facility] [address] [place], [address] Basophil percentageOrdered B y: Bautista Cardenasjonel on 11-10-2024 Basophils/100 WBC (Bld) 0.8 % 0-1 [facility] Basophil percentage 0.8 % 0-1 [facility] Blood urea nitrogen (BUN)/cr eatinine ratioOrdered By: Bautista Elham on 11-10-2024 Urea nitrogen/Creatinine [Mass ratio] 43.8 mg/mg High 07-19 [facility] Blood urea nitrogen (BUN)/creatinine ratio 43.8 RATIO High 07-19 [facility] CBC W/Diff, Automatedon 10-31 Absolute Lymph 1.58 X10 3/uL Normal 0.83-4.51 [facility] Comment on above: Performed By: #### L 500.2500, L100.0100 ####[facility] [address] [place], [address] Absolute Neut 6.9 X10 3/uL Normal 2.0-7.7 [facility] Comment on above: Performed By: #### L 500.2500, L100.0100 ####[facility] [address] [place], [address] Basophils/100 WBC (Bld) 0.8 % Normal 0-1 [facility] Comment on above: Performed By: #### L 500.2500, L100.0100 ####[facility] [address] [place], [address] Eosinophils/100 WBC (Bld) 1.5 % Normal 0-5 [facility] Comment on above: Performed By: #### L 500.2500, L100.0100 ####[facility] [address] [place], [address] Erythrocyte distribution width (RBC) [Ratio] 14.5 % Normal 11.6-14.6 [facility] Comment on above: Performed By: #### L 500.2500, L100.0100 ####[facility] [address] [place], [address] Hematocrit (Bld) [Volume fraction] 33.7 % Low 37-47 [facility] Comment on above: Performed By: #### L 500.2500, L100.0100 ####[facility] [address] [place], [address] Hemoglobin (Bld) [Mass/Vol] 10.4 g/dL Low 12.0-15. 0 [facility] Comment on above: Performed By: #### L 500.2500, L100.0100 ####[facility] [address] [place], [address] IG% 1.400 High 0.0-0.9 [facility] Comment on above: Result Comment: IG% - Immature Granulocytes (promyelocytes, myelocytes andmetamyelocytes) > 1% indicates that a LEFT SHIFT is Present. Performed By: #### L 500.2500, L100.0100 ####[facility] [address] [place], [address] Lymphocytes/100 WBC (Bld) 16.4 % Low 19-41 [facility] Comment on above: Performed By: #### L 500.2500, L100.0100 ####[facility] [address] [place], [address] MCH (RBC) [Entitic mass] 29.6 pg Normal 27.0-32.0 [facility] Comment on above: Performed By: #### L 500.2500, L100.0100 ####[facility] [address] [place], [address] MCHC (RBC) [Mass/Vol] 30.9 g/dL Low 32-36 [facility] Comment on above: Performed By: #### L 500.2500, L100.0100 ####[facility] [address], [address] MCV (RBC) [Entitic vol] 96.0 fL Normal 81-99 [facility] Comment on above: Performed By: #### L 500.2500, L100.0100 ####[facility] [address] [place], [address] Monocytes/100 WBC (Bld) 8.5 % Normal 0-10 [facility] Comment on above: Performed By: #### L 500.2500, L100.0100 ####[facility] [address] [place], [address] Neutrophils/100 WBC (Bld) 71.4 % High 47-70 [facility] Comment on above: Performed By: #### L 500.2500, L100.0100 ####[facility] [address] [place], [address] Nucleated RBC (Bld) [#/Vol] 0 10*3/uL Normal 0-5 [facility] Comment on above: Performed By: #### L 500.2500, L100.0100 ####[facility] [address] [place], [address] Platelet mean volume (Bld) [Entitic vol] 9.7 fL Normal 6.2-12.0 [facility] Comment on above: Performed By: #### L 500.2500, L100.0100 ####[facility] [address] [place], [address] Platelets (Bld) [#/Vol] 377 10*3/uL Normal 150-450 [facility] Comment on above: Performed By: #### L 500.2500, L100.0100 ####[facility] [address] [place], [address] RBC (Bld) [#/Vol] 3.51 10*6/uL Low 4.2-5.4 [facility] Comment on above: Performed By: #### L 500.2500, L100.0100 ####[facility] [address] [place], [address] RDW SD 49.8 fl High 35.1-43.9 [facility] Comment on above: Performed By: #### L 500.2500, L100.0100 ####[facility] [address] [place], [address] WBC (Bld) [#/Vol] 9.6 10*3/uL Normal 4.4-11.0 [facility] Comment on above: Performed By: #### L 500.2500, L100.0100 ####[facility] [address] [place], [address] Calcium [Mass/Vol]Ordered By : Bautista Lizarraga on 11-10-2024 Serum or plasma calcium measurement (mass/volume) 8.9 mg/dL 8.5-10.1 [facility] Carbon dioxide measurementOr dered By: Bautista Lizarraga on 11-10-2024 CO2 [Moles/Vol] 26.0 mmol/L 21.0-32.0 [facility] Carbon dioxide measurement 26.0 mmol/L 21.0-32. 0 [facility] Chloride measurementOrdered By: Bautista Lizararga on 11-10-2024 Chloride [Moles/Vol] 105 mmol/L 98-107 [facility] Chloride measurement 105 mmol/L 98-107 [facility] Creatinine [Mass/Vol]Ordered By: Bautista Lizarraga on 11-10-2024 Serum or plasma creatinine measurement (mass/volume) 0.48 mg/dL Low 0.55-1.02 [facility] Eosinophil percentageOrdered By: Bautista Lizarraga on 11-10-2024 Eosinophils/100 WBC (Bld) 1.5 % 0-5 [facility] Eosinophil percentage 1.5 % 0-5 [facility] Erythrocyte distribution wid th (RBC) [Entitic vol]Ordered By: Bautista Lizarraga on 11-10-2024 Erythrocyte distribution width standard deviation 49.8 fl High 35.1-43.9 [facility] Erythrocyte distribution wid th (RBC) [Ratio]Ordered By: Bautista Lizarraga on 11-10-2024 Erythrocyte distribution width ratio 14.5 % 11.6-14.6 [facility] Erythrocyte distribution wid th ratioOrdered By: Bautista Lizarraga on 11-10-2024 Erythrocyte distribution width (RBC) [Ratio] 14.5 % 11.6-14.6 [facility] Erythrocyte distribution wid th standard deviationOrdered By: Bautista Lizarraga on 11-10-2024 Erythrocyte distribution width (RBC) [Entitic vol] 49.8 fL High 35.1-43.9 [facility] Erythrocyte distribution width (RBC) [Ratio] 49.8 fl High 35.1-43.9 [facility] Estimated glomerular filtrat ion rate (GFR) AmericanOrdered By: Bautista Lizarraga on 11-10-2024 Estimated GFR (MDRD) Amer 161 mL/min >60 [facility] Comment on above: GFR Calc Estimated glomerular filtration rate (GFR) 161 mL/min >60 [facility] Estimation of creatinine mary aranceOrdered By: Bautista Lizarraga on 11-10-2024 Estimated Creatinine Clearance Calc 57.27 ml/min [facility] Estimation of creatinine clearance 57.27 ml/min [facility] Glomerular filtration rate ( GFR) estimationOrdered By: Bautista Lizarraga on 11-10-2024 Estimated GFR (MDRD) Non-Af Amer 133 mL/min >60 [facility] Comment on above: Non- GFR Calc GFR/1.73 sq M.predicted among non-blacks MDRD (S/P/Bld) [Vol rate/Area] 133 mL/min/{1.73_m2} >60 [facility] Glomerular filtration rate (GFR) estimation 133 mL/min >60 [facility] Glucose measurementOrdered B y: Bautista Lizarraga on 11-10-2024 Glucose [Mass/Vol] 118 mg/dL High 74-106 [facility] Comment on above: Fasting Glucose resu lt from 100 to 125 mg/dL suggests IMPAIRED HOMEOSTASIS per A.D.A. criteria. Glucose measurement 118 mg/dL High 74-106 [facility] Hematocrit Auto (Bld) [Volum e fraction]Ordered By: Bautista Lizarraga on 11-10-2024 Hematocrit (Bld) [Volume fraction] 33.7 % Low 37-47 [facility] Automated blood hematocrit (percentage) 33.7 % Low 37-47 [facility] Hemoglobin measurementOrdere d By: Bautista Lizarraga on 11-10-2024 Hemoglobin (Bld) [Mass/Vol] 10.4 g/dL Low 12.0-15. 0 [facility] Hemoglobin measurement 10.4 g/dL Low 12.0-15.0 [facility] Immature granulocytes/100 WB C Auto (Bld)Ordered By: Bautista Lizarraga on 11-10-2024 Immature granulocytes/100 WBC (Bld) 1.400 % High 0.0-0.9 [facility] Comment on above: IG% - Immature Granu locytes (promyelocytes, myelocytes and metamyelocytes) > 1% indicates that a LEFT SHIFT is Present. Automated immature granulocyte percentage 1.400 % High 0.0-0.9 [facility] Lymphocytes Auto (Unsp spec) [#/Vol]Ordered By: Bautista Lizarraga on 11-10-2024 Lymphocytes (Bld) [#/Vol] 1.58 10*3/uL 0.83-4.5 1 [facility] Absolute lymphocyte count 1.58 X10^3/uL 0.83-4. 51 [facility] Lymphocytes/100 WBC Auto (Un sp spec)Ordered By: Bautista Lizarraga on 11-10-2024 Lymphocytes/100 WBC (Bld) 16.4 % Low 19-41 [facility] Automated lymphocyte count as percentage of total leukocytes 16.4 % Low -41 [facility] MCV (RBC) [Entitic vol]Order ed By: Bautista Lizarraga on 11-10-2024 MCV (mean corpuscular volume) determination 96.0 fL 81-99 [facility] MCV (mean corpuscular volume ) determinationOrdered By: Bautista Lizarraga on 11-10-2024 MCV (RBC) [Entitic vol] 96.0 fL 81-99 [facility] Mean corpuscular hemoglobin (MCH) determinationOrdered By: Bautista Lizarraga on 11-10-2024 MCH (RBC) [Entitic mass] 29.6 pg 27.0-32.0 [facility] Mean corpuscular hemoglobin (MCH) determination 29.6 pg 27.0-32.0 [facility] Mean corpuscular hemoglobin concentration (MCHC) determinationOrdered By: Bautista Lizarraga on 11-10-2024 MCHC (RBC) [Mass/Vol] 30.9 g/dL Low 32-36 [facility] Mean corpuscular hemoglobin concentration (MCHC) determination 30.9 g/dL Low 32-36 [facility] Mean platelet volume determi nationOrdered By: Bautista Lizarraga on 11-10-2024 Platelet mean volume (Bld) [Entitic vol] 9.7 fL 6.2-12.0 [facility] Mean platelet volume determination 9.7 fl 6.2-12.0 [facility] Monocyte percentageOrdered B y: Bautista Lizarraga on 11-10-2024 Monocytes/100 WBC (Bld) 8.5 % 0-10 [facility] Monocyte percentage 8.5 % 0-10 [facility] Neutrophil percentageOrdered By: Bautista Lizarraga on 11-10-2024 Neutrophils/100 WBC (Bld) 71.4 % High 47-70 [facility] Neutrophil percentage 71.4 % High 47-70 [facility] Nucleated red blood cell per centageOrdered By: Bautista Lizarraga on 11-10-2024 Nucleated RBC/100 WBC (Bld) [Ratio] 0 % 0-5 [facility] Nucleated red blood cell percentage 0 % 0-5 [facility] Platelet countOrdered By: Laura Lizarraga on 11-10-2024 Platelets (Bld) [#/Vol] 377 10*3/uL 150-450 [facility] Platelet count 377 K/mm3 150-450 [facility] Potassium measurementOrdered By: Bautista Lizarraga on 11-10-2024 Potassium [Moles/Vol] 4.2 mmol/L 3.5-5.1 [facility] Potassium measurement 4.2 mmol/L 3.5-5.1 [facility] RBC Auto (Bld) [#/Vol]Ordere d By: Bautista Lizarraga on 11-10-2024 RBC (Bld) [#/Vol] 3.51 10*6/uL Low 4.2-5.4 [facility] Automated blood erythrocyte count 3.51 M/mm3 Low 4.2-5.4 [facility] Serum anion gap measurementO rdered By: Bautista Lizarraga on 11-10-2024 Anion gap [Moles/Vol] 5 mmol/L 5-15 [facility] Serum anion gap measurement 5 5-15 [facility] Serum or plasma calcium abhinav urement (mass/volume)Ordered By: Bautista Lizarraga on 11-10-2024 Calcium [Mass/Vol] 8.9 mg/dL 8.5-10.1 [facility] Serum or plasma creatinine m easurement (mass/volume)Ordered By: Bautista Lizarraga on 11-10-2024 Creatinine [Mass/Vol] 0.48 mg/dL Low 0.55-1.02 [facility] Comment on above: The validity of the calculated GFR & GFRAA in patients over 70 years has not been determined. Clinical correlation is essential. Serum or plasma urea nitroge n measurement (mass/volume)Ordered By: Bautista Lizarraga on 11-10-2024 Urea nitrogen [Mass/Vol] 21 mg/dL High 04-16 [facility] Sodium levelOrdered By: Duglas Lizarraga on 11-10-2024 Sodium [Moles/Vol] 136 mmol/L 136-145 [facility] Sodium level 136 mmol/L 136-145 [facility] Urea nitrogen [Mass/Vol]Orde red By: Bautista Lizarraga on 11-10-2024 Serum or plasma urea nitrogen measurement (mass/volume) 21 mg/dL High 7-18 [facility] White blood cell (WBC) count Ordered By: Bautista Lizarraga on 11-10-2024 WBC (Bld) [#/Vol] 9.6 10*3/uL 4.4-11.0 [facility] White blood cell (WBC) count 9.6 K/mm3 4.4-11.0 [facility] Basic Metabolic Profile (BMP )on 11-08-2024 BUN/CRE 35.0 RATIO High 10-20 [facility] Comment on above: Performed By: #### L 500.2500, L100.0100 ####[facility] [address] [place], [address] CA,Total 8.6 mg/dL Normal 8.5-10.1 [facility] Comment on above: Performed By: #### L 500.2500, L100.0100 ####[facility] [address] [place], [address] Chloride [Moles/Vol] 107 mmol/L Normal 98-107 [facility] Comment on above: Performed By: #### L 500.2500, L100.0100 ####[facility] [address] [place], [address] CO2 [Moles/Vol] 24.0 mmol/L Normal 21.0-32.0 [facility] Comment on above: Performed By: #### L 500.2500, L100.0100 ####[facility] [address] [place], [address] Creatinine [Mass/Vol] 0.43 mg/dL Low 0.55-1.02 [facility] Comment on above: Result Comment: The validity of the calculated GFR GFRAA in patients over70 years has not been determined. Clinical correlation isessential. Performed By: #### L 500.2500, L100.0100 ####[facility] [address] [place], [address] ECRCL 57.27 ml/min Normal [facility] Comment on above: Performed By: #### L 500.2500, L100.0100 ####[facility] [address] [place], [address] EST GFR - AA 184 mL/min Normal >60 [facility] Comment on above: Result Comment: Afri can [place] GFR Calc Performed By: #### L 500.2500, L100.0100 ####[facility] [address] [place], [address] GAP 7 Normal 5-15 [facility] Comment on above: Performed By: #### L 500.2500, L100.0100 ####[facility] [address] [place], [address] GFR/1.73 sq M.predicted among non-blacks MDRD (S/P/Bld) [Vol rate/Area] 152 mL/min/{1.73_m2} Normal >60 [facility] Comment on above: Result Comment: Non- GFR Calc Performed By: #### L 500.2500, L100.0100 ####[facility] [address] [place], [address] Glucose [Mass/Vol] 103 mg/dL Normal 74-106 [facility] Comment on above: Result Comment: Fast ing Glucose result from 100 to 125 mg/dLsuggests IMPAIRED HOMEOSTASIS per A.D.A. criteria. Performed By: #### L 500.2500, L100.0100 ####[facility] [address] [place], [address] Potassium [Moles/Vol] 4.3 mmol/L Normal 3.5-5.1 [facility] Comment on above: Performed By: #### L 500.2500, L100.0100 ####[facility] [address] [place], [address] Sodium [Moles/Vol] 138 mmol/L Normal 136-145 [facility] Comment on above: Performed By: #### L 500.2500, L100.0100 ####[facility] [address] [place], [address] Urea nitrogen [Mass/Vol] 15 mg/dL Normal 7-18 [facility] Comment on above: Performed By: #### L 500.2500, L100.0100 ####[facility] [address] [place], [address] CBC W/Diff, Automatedon 02-0 9-2024 Absolute Lymph 1.81 X10 3/uL Normal 0.83-4.51 [facility] Comment on above: Performed By: #### L 500.2500, L100.0100 ####[facility] [address] [place], [address] Absolute Neut 6.7 X10 3/uL Normal 2.0-7.7 [facility] Comment on above: Performed By: #### L 500.2500, L100.0100 ####[facility] [address] [place], [address] Basophils/100 WBC (Bld) 0.6 % Normal 0-1 [facility] Comment on above: Performed By: #### L 500.2500, L100.0100 ####[facility] [address] [place], [address] Eosinophils/100 WBC (Bld) 0.8 % Normal 0-5 [facility] Comment on above: Performed By: #### L 500.2500, L100.0100 ####[facility] [address] [place], [address] Erythrocyte distribution width (RBC) [Ratio] 14.2 % Normal 11.6-14.6 [facility] Comment on above: Performed By: #### L 500.2500, L100.0100 ####[facility] [address] [place], [address] Hematocrit (Bld) [Volume fraction] 32.2 % Low 37-47 [facility] Comment on above: Performed By: #### L 500.2500, L100.0100 ####[facility] [address] [place], [address] Hemoglobin (Bld) [Mass/Vol] 10.1 g/dL Low 12.0-15. 0 [facility] Comment on above: Performed By: #### L 500.2500, L100.0100 ####[facility] [address] [place], [address] IG% 2.000 High 0.0-0.9 [facility] Comment on above: Result Comment: IG% - Immature Granulocytes (promyelocytes, myelocytes andmetamyelocytes) > 1% indicates that a LEFT SHIFT is Present. Performed By: #### L 500.2500, L100.0100 ####[facility] [address] [place], [address] Lymphocytes/100 WBC (Bld) 18.7 % Low 19-41 [facility] Comment on above: Performed By: #### L 500.2500, L100.0100 ####[facility] [address] [place], [address] MCH (RBC) [Entitic mass] 29.7 pg Normal 27.0-32.0 [facility] Comment on above: Performed By: #### L 500.2500, L100.0100 ####[facility] [address] [place], [address] MCHC (RBC) [Mass/Vol] 31.4 g/dL Low 32-36 [facility] Comment on above: Performed By: #### L 500.2500, L100.0100 ####[facility] [address] [place], [address] MCV (RBC) [Entitic vol] 94.7 fL Normal 81-99 [facility] Comment on above: Performed By: #### L 500.2500, L100.0100 ####[facility] [address] [place], [address] Monocytes/100 WBC (Bld) 8.7 % Normal 0-10 [facility] Comment on above: Performed By: #### L 500.2500, L100.0100 ####[facility] [address] [place], [address] Neutrophils/100 WBC (Bld) 69.2 % Normal 47-70 [facility] Comment on above: Performed By: #### L 500.2500, L100.0100 ####[facility] [address] [place], [address] Nucleated RBC (Bld) [#/Vol] 0 10*3/uL Normal 0-5 [facility] Comment on above: Performed By: #### L 500.2500, L100.0100 ####[facility] [address] [place], [address] Platelet mean volume (Bld) [Entitic vol] 9.8 fL Normal 6.2-12.0 [facility] Comment on above: Performed By: #### L 500.2500, L100.0100 ####[facility] [address] [place], [address] Platelets (Bld) [#/Vol] 380 10*3/uL Normal 150-450 [facility] Comment on above: Performed By: #### L 500.2500, L100.0100 ####[facility] [address] [place], [address] RBC (Bld) [#/Vol] 3.40 10*6/uL Low 4.2-5.4 [facility] Comment on above: Performed By: #### L 500.2500, L100.0100 ####[facility] [address] [place], [address] RDW SD 48.5 fl High 35.1-43.9 [facility] Comment on above: Performed By: #### L 500.2500, L100.0100 ####[facility] [address] [place], [address] WBC (Bld) [#/Vol] 9.7 10*3/uL Normal 4.4-11.0 [facility] Comment on above: Performed By: #### L 500.2500, L100.0100 ####[facility] [address] [place], [address] Basic Metabolic Profile (BMP )on 11-07-2024 BUN/CRE 32.5 RATIO High 10-20 [facility] Comment on above: Performed By: #### L 100.0100, L500.2500 ####[facility] [address] [place], [address] CA,Total 8.9 mg/dL Normal 8.5-10.1 [facility] Comment on above: Performed By: #### L 100.0100, L500.2500 ####[facility] [address] [place], [address] Chloride [Moles/Vol] 108 mmol/L High 98-107 [facility] Comment on above: Performed By: #### L 100.0100, L500.2500 ####[facility] [address] [place], [address] CO2 [Moles/Vol] 26.0 mmol/L Normal 21.0-32.0 [facility] Comment on above: Performed By: #### L 100.0100, L500.2500 ####[facility] [address] [place], [address] Creatinine [Mass/Vol] 0.43 mg/dL Low 0.55-1.02 [facility] Comment on above: Result Comment: The validity of the calculated GFR GFRAA in patients over70 years has not been determined. Clinical correlation isessential. Performed By: #### L 100.0100, L500.2500 ####[facility] [address] [place], [address] ECRCL 57.27 ml/min Normal [facility] Comment on above: Performed By: #### L 100.0100, L500.2500 ####[facility] [address] [place], [address] EST GFR - AA 182 mL/min Normal >60 [facility] Comment on above: Result Comment: Afri can [place] GFR Calc Performed By: #### L 100.0100, L500.2500 ####[facility] [address] [place], [address] GAP 6 Normal 5-15 [facility] Comment on above: Performed By: #### L 100.0100, L500.2500 ####[facility] [address] [place], [address] GFR/1.73 sq M.predicted among non-blacks MDRD (S/P/Bld) [Vol rate/Area] 151 mL/min/{1.73_m2} Normal >60 [facility] Comment on above: Result Comment: Non- GFR Calc Performed By: #### L 100.0100, L500.2500 ####[facility] [address] [place], [address] Glucose [Mass/Vol] 110 mg/dL High 74-106 [facility] Comment on above: Result Comment: Fast ing Glucose result from 100 to 125 mg/dLsuggests IMPAIRED HOMEOSTASIS per A.D.A. criteria. Performed By: #### L 100.0100, L500.2500 ####[facility] [address] [place], [address] Potassium [Moles/Vol] 4.4 mmol/L Normal 3.5-5.1 [facility] Comment on above: Performed By: #### L 100.0100, L500.2500 ####[facility] [address] [place], [address] Sodium [Moles/Vol] 140 mmol/L Normal 136-145 [facility] Comment on above: Performed By: #### L 100.0100, L500.2500 ####[facility] [address] [place], [address] Urea nitrogen [Mass/Vol] 14 mg/dL Normal 7-18 [facility] Comment on above: Performed By: #### L 100.0100, L500.2500 ####[facility] [address] [place], [address] CBC W/Diff, Automatedon 02-0 8-2025 Absolute Lymph 1.54 X10 3/uL Normal 0.83-4.51 [facility] Comment on above: Performed By: #### L 100.0100, L500.2500 ####[facility] [address] [place], [address] Absolute Neut 7.6 X10 3/uL Normal 2.0-7.7 [facility] Comment on above: Performed By: #### L 100.0100, L500.2500 ####[facility] [address] [place], [address] Basophils/100 WBC (Bld) 1.0 % Normal 0-1 [facility] Comment on above: Performed By: #### L 100.0100, L500.2500 ####[facility] [address] [place], [address] Eosinophils/100 WBC (Bld) 0.5 % Normal 0-5 [facility] Comment on above: Performed By: #### L 100.0100, L500.2500 ####[facility] [address] [place], [address] Erythrocyte distribution width (RBC) [Ratio] 14.3 % Normal 11.6-14.6 [facility] Comment on above: Performed By: #### L 100.0100, L500.2500 ####[facility] [address] [place], [address] Hematocrit (Bld) [Volume fraction] 33.2 % Low 37-47 [facility] Comment on above: Performed By: #### L 100.0100, L500.2500 ####[facility] [address] [place], [address] Hemoglobin (Bld) [Mass/Vol] 10.9 g/dL Low 12.0-15. 0 [facility] Comment on above: Performed By: #### L 100.0100, L500.2500 ####[facility] [address] [place], [address] IG% 2.600 High 0.0-0.9 [facility] Comment on above: Result Comment: IG% - Immature Granulocytes (promyelocytes, myelocytes andmetamyelocytes) > 1% indicates that a LEFT SHIFT is Present. Performed By: #### L 100.0100, L500.2500 ####[facility] [address] [place], [address] Lymphocytes/100 WBC (Bld) 14.7 % Low 19-41 [facility] Comment on above: Performed By: #### L 100.0100, L500.2500 ####[facility] [address] [place], [address] MCH (RBC) [Entitic mass] 30.9 pg Normal 27.0-32.0 [facility] Comment on above: Performed By: #### L 100.0100, L500.2500 ####[facility] [address] [place], [address] MCHC (RBC) [Mass/Vol] 32.8 g/dL Normal 32-36 [facility] Comment on above: Performed By: #### L 100.0100, L500.2500 ####[facility] [address] [place], [address] MCV (RBC) [Entitic vol] 94.1 fL Normal 81-99 [facility] Comment on above: Performed By: #### L 100.0100, L500.2500 ####[facility] [address] [place], [address] Monocytes/100 WBC (Bld) 8.6 % Normal 0-10 [facility] Comment on above: Performed By: #### L 100.0100, L500.2500 ####[facility] [address] [place], [address] Neutrophils/100 WBC (Bld) 72.6 % High 47-70 [facility] Comment on above: Performed By: #### L 100.0100, L500.2500 ####[facility] [address] [place], [address] Nucleated RBC (Bld) [#/Vol] 0 10*3/uL Normal 0-5 [facility] Comment on above: Performed By: #### L 100.0100, L500.2500 ####[facility] [address] [place], [address] Platelet mean volume (Bld) [Entitic vol] 10.1 fL Normal 6.2-12.0 [facility] Comment on above: Performed By: #### L 100.0100, L500.2500 ####[facility] [address] [place], [address] Platelets (Bld) [#/Vol] 362 10*3/uL Normal 150-450 [facility] Comment on above: Performed By: #### L 100.0100, L500.2500 ####[facility] [address] [place], [address] RBC (Bld) [#/Vol] 3.53 10*6/uL Low 4.2-5.4 [facility] Comment on above: Performed By: #### L 100.0100, L500.2500 ####[facility] [address] [place], [address] RDW SD 49.1 fl High 35.1-43.9 [facility] Comment on above: Performed By: #### L 100.0100, L500.2500 ####[facility] [address] [place], [address] WBC (Bld) [#/Vol] 10.5 10*3/uL Normal 4.4-11.0 [facility] Comment on above: Performed By: #### L 100.0100, L500.2500 ####[facility] [address] [place], [address] Culture, Blood (WB)on 2024 CUB No growth in 5 days. Normal [facility] Comment on above: Performed By: #### M 200.1000 ####[facility] [address] [place], [address] Basic Metabolic Profile (BMP )on 11-06-2024 BUN/CRE 48.2 RATIO High 10-20 [facility] Comment on above: Performed By: #### L 100.0100, L501.5200, L500.2500, L501.2300 ####[facility] [address] [place], [address] CA,Total 8.7 mg/dL Normal 8.5-10.1 [facility] Comment on above: Performed By: #### L 100.0100, L501.5200, L500.2500, L501.2300 ####[facility] [address] [place], [address] Chloride [Moles/Vol] 112 mmol/L High 98-107 [facility] Comment on above: Performed By: #### L 100.0100, L501.5200, L500.2500, L501.2300 ####[facility] [address] [place], [address] CO2 [Moles/Vol] 19.0 mmol/L Low 21.0-32.0 [facility] Comment on above: Performed By: #### L 100.0100, L501.5200, L500.2500, L501.2300 ####[facility] [address] [place], [address] Creatinine [Mass/Vol] 0.35 mg/dL Low 0.55-1.02 [facility] Comment on above: Result Comment: The validity of the calculated GFR GFRAA in patients over70 years has not been determined. Clinical correlation isessential. Performed By: #### L 100.0100, L501.5200, L500.2500, L501.2300 ####[facility] [address] [place], [address] ECRCL 57.27 ml/min Normal [facility] Comment on above: Performed By: #### L 100.0100, L501.5200, L500.2500, L501.2300 ####[facility] [address] [place], [address] EST GFR - AA 230 mL/min Normal >60 [facility] Comment on above: Result Comment: Afri can [place] GFR Calc Performed By: #### L 100.0100, L501.5200, L500.2500, L501.2300 ####[facility] [address] [place], [address] GAP 10 Normal 5-15 [facility] Comment on above: Performed By: #### L 100.0100, L501.5200, L500.2500, L501.2300 ####[facility] [address] [place], [address] GFR/1.73 sq M.predicted among non-blacks MDRD (S/P/Bld) [Vol rate/Area] 190 mL/min/{1.73_m2} Normal >60 [facility] Comment on above: Result Comment: Non- GFR Calc Performed By: #### L 100.0100, L501.5200, L500.2500, L501.2300 ####[facility] [address] [place], [address] Glucose [Mass/Vol] 91 mg/dL Normal 74-106 [facility] Comment on above: Performed By: #### L 100.0100, L501.5200, L500.2500, L501.2300 ####[facility] [address] [place], [address] Potassium [Moles/Vol] 4.2 mmol/L Normal 3.5-5.1 [facility] Comment on above: Performed By: #### L 100.0100, L501.5200, L500.2500, L501.2300 ####[facility] [address] [place], [address] Sodium [Moles/Vol] 141 mmol/L Normal 136-145 [facility] Comment on above: Performed By: #### L 100.0100, L501.5200, L500.2500, L501.2300 ####[facility] [address] [place], [address] Urea nitrogen [Mass/Vol] 17 mg/dL Normal 7-18 [facility] Comment on above: Performed By: #### L 100.0100, L501.5200, L500.2500, L501.2300 ####[facility] [address] [place], [address] CBC W/Diff, Automatedon 02-0 7-2025 Absolute Lymph 1.69 X10 3/uL Normal 0.83-4.51 [facility] Comment on above: Performed By: #### L 100.0100, L501.5200, L500.2500, L501.2300 ####[facility] [address] [place], [address] Absolute Neut 8.2 X10 3/uL High 2.0-7.7 [facility] Comment on above: Performed By: #### L 100.0100, L501.5200, L500.2500, L501.2300 ####[facility] [address] [place], [address] Basophils/100 WBC (Bld) 0.8 % Normal 0-1 [facility] Comment on above: Performed By: #### L 100.0100, L501.5200, L500.2500, L501.2300 ####[facility] [address] [place], [address] Eosinophils/100 WBC (Bld) 0.7 % Normal 0-5 [facility] Comment on above: Performed By: #### L 100.0100, L501.5200, L500.2500, L501.2300 ####[facility] [address] [place], [address] Erythrocyte distribution width (RBC) [Ratio] 13.9 % Normal 11.6-14.6 [facility] Comment on above: Performed By: #### L 100.0100, L501.5200, L500.2500, L501.2300 ####[facility] [address] [place], [address] Hematocrit (Bld) [Volume fraction] 28.8 % Low 37-47 [facility] Comment on above: Performed By: #### L 100.0100, L501.5200, L500.2500, L501.2300 ####[facility] [address] [place], [address] Hemoglobin (Bld) [Mass/Vol] 9.6 g/dL Low 12.0-15. 0 [facility] Comment on above: Performed By: #### L 100.0100, L501.5200, L500.2500, L501.2300 ####[facility] [address] [place], [address] IG% 1.900 High 0.0-0.9 [facility] Comment on above: Result Comment: IG% - Immature Granulocytes (promyelocytes, myelocytes andmetamyelocytes) > 1% indicates that a LEFT SHIFT is Present. Performed By: #### L 100.0100, L501.5200, L500.2500, L501.2300 ####[facility] [address] [place], [address] Lymphocytes/100 WBC (Bld) 15.1 % Low 19-41 [facility] Comment on above: Performed By: #### L 100.0100, L501.5200, L500.2500, L501.2300 ####[facility] [address] [place], [address] MCH (RBC) [Entitic mass] 30.8 pg Normal 27.0-32.0 [facility] Comment on above: Performed By: #### L 100.0100, L501.5200, L500.2500, L501.2300 ####[facility] [address] [place], [address] MCHC (RBC) [Mass/Vol] 33.3 g/dL Normal 32-36 [facility] Comment on above: Performed By: #### L 100.0100, L501.5200, L500.2500, L501.2300 ####[facility] [address] [place], [address] MCV (RBC) [Entitic vol] 92.3 fL Normal 81-99 [facility] Comment on above: Performed By: #### L 100.0100, L501.5200, L500.2500, L501.2300 ####[facility] [address] [place], [address] Monocytes/100 WBC (Bld) 8.6 % Normal 0-10 [facility] Comment on above: Performed By: #### L 100.0100, L501.5200, L500.2500, L501.2300 ####[facility] [address] [place], [address] Neutrophils/100 WBC (Bld) 72.9 % High 47-70 [facility] Comment on above: Performed By: #### L 100.0100, L501.5200, L500.2500, L501.2300 ####[facility] [address] [place], [address] Nucleated RBC (Bld) [#/Vol] 0 10*3/uL Normal 0-5 [facility] Comment on above: Performed By: #### L 100.0100, L501.5200, L500.2500, L501.2300 ####[facility] [address] [place], [address] Platelet mean volume (Bld) [Entitic vol] 10.2 fL Normal 6.2-12.0 [facility] Comment on above: Performed By: #### L 100.0100, L501.5200, L500.2500, L501.2300 ####[facility] [address] [place], [address] Platelets (Bld) [#/Vol] 328 10*3/uL Normal 150-450 [facility] Comment on above: Performed By: #### L 100.0100, L501.5200, L500.2500, L501.2300 ####[facility] [address] [place], [address] RBC (Bld) [#/Vol] 3.12 10*6/uL Low 4.2-5.4 [facility] Comment on above: Performed By: #### L 100.0100, L501.5200, L500.2500, L501.2300 ####[facility] [address] [place], [address] RDW SD 46.9 fl High 35.1-43.9 [facility] Comment on above: Performed By: #### L 100.0100, L501.5200, L500.2500, L501.2300 ####[facility] [address] [place], [address] WBC (Bld) [#/Vol] 11.2 10*3/uL High 4.4-11.0 [facility] Comment on above: Performed By: #### L 100.0100, L501.5200, L500.2500, L501.2300 ####[facility] [address] [place], [address] Magnesiumon 11-06-2024 Magnesium [Mass/Vol] 1.9 mg/dL Normal 1.6-2.6 [facility] Comment on above: Performed By: #### L 100.0100, L501.5200, L500.2500, L501.2300 ####[facility] [address] [place], [address] Magnesium measurementOrdered By: Zachary Madison on 11-06-2024 Magnesium [Mass/Vol] 1.9 mg/dL 1.6-2.6 [facility] Magnesium measurement 1.9 mg/dL 1.6-2.6 [facility] Phosphoruson 11-06-2024 Phosphate [Mass/Vol] 2.5 mg/dL Normal 2.5-4.9 [facility] Comment on above: Performed By: #### L 100.0100, L501.5200, L500.2500, L501.2300 ####[facility] [address] [place], [address] Phosphorus measurementOrdere d By: Zachary Madison on 11-06-2024 Phosphorus Level 2.5 mg/dL 2.5-4.9 [facility] Phosphorus measurement 2.5 mg/dL 2.5-4.9 [facility] Basic Metabolic Profile (BMP )on 11-05-2024 BUN/CRE 42.1 RATIO High 10-20 [facility] Comment on above: Performed By: #### L 500.2500, L100.0100 ####[facility] [address] [place], [address] CA,Total 8.7 mg/dL Normal 8.5-10.1 [facility] Comment on above: Performed By: #### L 500.2500, L100.0100 ####[facility] [address] [place], [address] Chloride [Moles/Vol] 108 mmol/L High 98-107 [facility] Comment on above: Performed By: #### L 500.2500, L100.0100 ####[facility] [address] [place], [address] CO2 [Moles/Vol] 16.0 mmol/L Low 21.0-32.0 [facility] Comment on above: Performed By: #### L 500.2500, L100.0100 ####[facility] [address] [place], [address] Creatinine [Mass/Vol] 0.40 mg/dL Low 0.55-1.02 [facility] Comment on above: Result Comment: The validity of the calculated GFR GFRAA in patients over70 years has not been determined. Clinical correlation isessential. Performed By: #### L 500.2500, L100.0100 ####[facility] [address] [place], [address] ECRCL 57.27 ml/min Normal [facility] Comment on above: Performed By: #### L 500.2500, L100.0100 ####[facility] [address] [place], [address] EST GFR - AA 196 mL/min Normal >60 [facility] Comment on above: Result Comment: Afri can Sur[place]amese GFR Calc Performed By: #### L 500.2500, L100.0100 ####[facility] [address] [place], [address] GAP 15 Normal 5-15 [facility] Comment on above: Performed By: #### L 500.2500, L100.0100 ####[facility] [address] [place], [address] GFR/1.73 sq M.predicted among non-blacks MDRD (S/P/Bld) [Vol rate/Area] 162 mL/min/{1.73_m2} Normal >60 [facility] Comment on above: Result Comment: Non- GFR Calc Performed By: #### L 500.2500, L100.0100 ####[facility] [address] [place], [address] Glucose [Mass/Vol] 69 mg/dL Low 74-106 [facility] Comment on above: Performed By: #### L 500.2500, L100.0100 ####[facility] [address] [place], [address] Potassium [Moles/Vol] 3.0 mmol/L Low 3.5-5.1 [facility] Comment on above: Performed By: #### L 500.2500, L100.0100 ####[facility] [address] [place], [address] Sodium [Moles/Vol] 139 mmol/L Normal 136-145 [facility] Comment on above: Performed By: #### L 500.2500, L100.0100 ####[facility] [address] [place], [address] Urea nitrogen [Mass/Vol] 17 mg/dL Normal 7-18 [facility] Comment on above: Performed By: #### L 500.2500, L100.0100 ####[facility] [address] [place], [address] CBC W/Diff, Automatedon 02-0 6-5 Absolute Lymph 1.98 X10 3/uL Normal 0.83-4.51 [facility] Comment on above: Performed By: #### L 500.2500, L100.0100 ####[facility] [address] [place], [address] Absolute Neut 9.6 X10 3/uL High 2.0-7.7 [facility] Comment on above: Performed By: #### L 500.2500, L100.0100 ####[facility] [address] [place], [address] Basophils/100 WBC (Bld) 0.7 % Normal 0-1 [facility] Comment on above: Performed By: #### L 500.2500, L100.0100 ####[facility] [address] [place], [address] Eosinophils/100 WBC (Bld) 0.4 % Normal 0-5 [facility] Comment on above: Performed By: #### L 500.2500, L100.0100 ####[facility] [address] [place], [address] Erythrocyte distribution width (RBC) [Ratio] 13.6 % Normal 11.6-14.6 [facility] Comment on above: Performed By: #### L 500.2500, L100.0100 ####[facility] [address] [place], [address] Hematocrit (Bld) [Volume fraction] 32.0 % Low 37-47 [facility] Comment on above: Performed By: #### L 500.2500, L100.0100 ####[facility] [address] [place], [address] Hemoglobin (Bld) [Mass/Vol] 10.7 g/dL Low 12.0-15. 0 [facility] Comment on above: Performed By: #### L 500.2500, L100.0100 ####[facility] [address] [place], [address] IG% 1.900 High 0.0-0.9 [facility] Comment on above: Result Comment: IG% - Immature Granulocytes (promyelocytes, myelocytes andmetamyelocytes) > 1% indicates that a LEFT SHIFT is Present. Performed By: #### L 500.2500, L100.0100 ####[facility] [address] [place], [address] Lymphocytes/100 WBC (Bld) 15.1 % Low 19-41 [facility] Comment on above: Performed By: #### L 500.2500, L100.0100 ####[facility] [address] [place], [address] MCH (RBC) [Entitic mass] 30.7 pg Normal 27.0-32.0 [facility] Comment on above: Performed By: #### L 500.2500, L100.0100 ####[facility] [address] [place], [address] MCHC (RBC) [Mass/Vol] 33.4 g/dL Normal 32-36 [facility] Comment on above: Performed By: #### L 500.2500, L100.0100 ####[facility] [address] [place], [address] MCV (RBC) [Entitic vol] 92.0 fL Normal 81-99 [facility] Comment on above: Performed By: #### L 500.2500, L100.0100 ####[facility] [address] [place], [address] Monocytes/100 WBC (Bld) 8.8 % Normal 0-10 [facility] Comment on above: Performed By: #### L 500.2500, L100.0100 ####[facility] [address] [place], [address] Neutrophils/100 WBC (Bld) 73.1 % High 47-70 [facility] Comment on above: Performed By: #### L 500.2500, L100.0100 ####[facility] [address] [place], [address] Nucleated RBC (Bld) [#/Vol] 0 10*3/uL Normal 0-5 [facility] Comment on above: Performed By: #### L 500.2500, L100.0100 ####[facility] [address] [place], [address] Platelet mean volume (Bld) [Entitic vol] 10.6 fL Normal 6.2-12.0 [facility] Comment on above: Performed By: #### L 500.2500, L100.0100 ####[facility] [address] [place], [address] Platelets (Bld) [#/Vol] 307 10*3/uL Normal 150-450 [facility] Comment on above: Performed By: #### L 500.2500, L100.0100 ####[facility] [address] [place], [address] RBC (Bld) [#/Vol] 3.48 10*6/uL Low 4.2-5.4 [facility] Comment on above: Performed By: #### L 500.2500, L100.0100 ####[facility] [address] [place], [address] RDW SD 46.1 fl High 35.1-43.9 [facility] Comment on above: Performed By: #### L 500.2500, L100.0100 ####[facility] [address] [place], [address] WBC (Bld) [#/Vol] 13.1 10*3/uL High 4.4-11.0 [facility] Comment on above: Performed By: #### L 500.2500, L100.0100 ####[facility] [address] [place], [address] Modified Barium Swallow Stud yon 11-05-2024 Modified Barium Swallow Study Normal [facility] 12 Lead EKGon 11-04-2024 12 Lead EKG Normal [facility] Basic Metabolic Profile (BMP )on 11-04-2024 BUN/CRE 30.6 RATIO High 10-20 [facility] Comment on above: Performed By: #### L 500.2500, L100.0100 ####[facility] [address] [place], [address] CA,Total 8.3 mg/dL Low 8.5-10.1 [facility] Comment on above: Performed By: #### L 500.2500, L100.0100 ####[facility] [address] [place], [address] Chloride [Moles/Vol] 104 mmol/L Normal 98-107 [facility] Comment on above: Performed By: #### L 500.2500, L100.0100 ####[facility] [address] [place], [address] CO2 [Moles/Vol] 20.0 mmol/L Low 21.0-32.0 [facility] Comment on above: Performed By: #### L 500.2500, L100.0100 ####[facility] [address] [place], [address] Creatinine [Mass/Vol] 0.65 mg/dL Normal 0.55-1.02 [facility] Comment on above: Result Comment: The validity of the calculated GFR GFRAA in patients over70 years has not been determined. Clinical correlation isessential. Performed By: #### L 500.2500, L100.0100 ####[facility] [address] [place], [address] ECRCL 57.27 ml/min Normal [facility] Comment on above: Performed By: #### L 500.2500, L100.0100 ####[facility] [address] [place], [address] EST GFR - AA 113 mL/min Normal >60 [facility] Comment on above: Result Comment: Afri can [place] GFR Calc Performed By: #### L 500.2500, L100.0100 ####[facility] [address] [place], [address] GAP 14 Normal 5-15 [facility] Comment on above: Performed By: #### L 500.2500, L100.0100 ####[facility] [address] [place], [address] GFR/1.73 sq M.predicted among non-blacks MDRD (S/P/Bld) [Vol rate/Area] 93 mL/min/{1.73_m2} Normal >60 [facility] Comment on above: Result Comment: Non- GFR Calc Performed By: #### L 500.2500, L100.0100 ####[facility] [address] [place], [address] Glucose [Mass/Vol] 87 mg/dL Normal 74-106 [facility] Comment on above: Performed By: #### L 500.2500, L100.0100 ####[facility] [address] [place], [address] Potassium [Moles/Vol] 2.6 mmol/L Invalid Interpretation Code 3.5-5.1 [facility] Comment on above: Result Comment: Crit ical Result(s) Called at: 05:52:24 11/04/2024 by:KIRTI MELÉNDEZ TO KHANH VENEGAS. Results read back bysame. Performed By: #### L 500.2500, L100.0100 ####[facility] [address] [place], [address] Sodium [Moles/Vol] 138 mmol/L Normal 136-145 [facility] Comment on above: Performed By: #### L 500.2500, L100.0100 ####[facility] [address] [place], [address] Urea nitrogen [Mass/Vol] 20 mg/dL High 7-18 [facility] Comment on above: Performed By: #### L 500.2500, L100.0100 ####[facility] [address] [place], [address] C. difficile DNA TYLER+probe Q l (Unsp spec)Ordered By: Cristino Kwan on 11-04-2024 Clostridioides difficile (PCR) [facility] CBC W/Diff, Automatedon 02- Absolute Lymph 1.86 X10 3/uL Normal 0.83-4.51 [facility] Comment on above: Performed By: #### L 500.2500, L100.0100 ####[facility] [address] [place], [address] Absolute Neut 9.2 X10 3/uL High 2.0-7.7 [facility] Comment on above: Performed By: #### L 500.2500, L100.0100 ####[facility] [address] [place], [address] Basophils/100 WBC (Bld) 0.6 % Normal 0-1 [facility] Comment on above: Performed By: #### L 500.2500, L100.0100 ####[facility] [address] [place], [address] Eosinophils/100 WBC (Bld) 0.3 % Normal 0-5 [facility] Comment on above: Performed By: #### L 500.2500, L100.0100 ####[facility] [address] [place], [address] Erythrocyte distribution width (RBC) [Ratio] 13.4 % Normal 11.6-14.6 [facility] Comment on above: Performed By: #### L 500.2500, L100.0100 ####[facility] [address] [place], [address] Hematocrit (Bld) [Volume fraction] 34.8 % Low 37-47 [facility] Comment on above: Performed By: #### L 500.2500, L100.0100 ####[facility] [address] [place], [address] Hemoglobin (Bld) [Mass/Vol] 11.4 g/dL Low 12.0-15. 0 [facility] Comment on above: Performed By: #### L 500.2500, L100.0100 ####[facility] [address] [place], [address] IG% 0.700 Normal 0.0-0.9 [facility] Comment on above: Result Comment: IG% - Immature Granulocytes (promyelocytes, myelocytes andmetamyelocytes) > 1% indicates that a LEFT SHIFT is Present. Performed By: #### L 500.2500, L100.0100 ####[facility] [address] [place], [address] Lymphocytes/100 WBC (Bld) 15.0 % Low 19-41 [facility] Comment on above: Performed By: #### L 500.2500, L100.0100 ####[facility] [address] [place], [address] MCH (RBC) [Entitic mass] 30.2 pg Normal 27.0-32.0 [facility] Comment on above: Performed By: #### L 500.2500, L100.0100 ####[facility] [address] [place], [address] MCHC (RBC) [Mass/Vol] 32.8 g/dL Normal 32-36 [facility] Comment on above: Performed By: #### L 500.2500, L100.0100 ####[facility] [address] [place], [address] MCV (RBC) [Entitic vol] 92.3 fL Normal 81-99 [facility] Comment on above: Performed By: #### L 500.2500, L100.0100 ####[facility] [address] [place], [address] Monocytes/100 WBC (Bld) 9.2 % Normal 0-10 [facility] Comment on above: Performed By: #### L 500.2500, L100.0100 ####[facility] [address] [place], [address] Neutrophils/100 WBC (Bld) 74.2 % High 47-70 [facility] Comment on above: Performed By: #### L 500.2500, L100.0100 ####[facility] [address] [place], [address] Nucleated RBC (Bld) [#/Vol] 0 10*3/uL Normal 0-5 [facility] Comment on above: Performed By: #### L 500.2500, L100.0100 ####[facility] [address] [place], [address] Platelet mean volume (Bld) [Entitic vol] 10.7 fL Normal 6.2-12.0 [facility] Comment on above: Performed By: #### L 500.2500, L100.0100 ####[facility] [address] [place], [address] Platelets (Bld) [#/Vol] 275 10*3/uL Normal 150-450 [facility] Comment on above: Performed By: #### L 500.2500, L100.0100 ####[facility] [address] [place], [address] RBC (Bld) [#/Vol] 3.77 10*6/uL Low 4.2-5.4 [facility] Comment on above: Performed By: #### L 500.2500, L100.0100 ####[facility] [address] [place], [address] RDW SD 45.7 fl High 35.1-43.9 [facility] Comment on above: Performed By: #### L 500.2500, L100.0100 ####[facility] [address] [place], [address] WBC (Bld) [#/Vol] 12.4 10*3/uL High 4.4-11.0 [facility] Comment on above: Performed By: #### L 500.2500, L100.0100 ####[facility] [address] [place], [address] CDIFF (PCR)on 11-04-2024 CDIFF Is the patient receiving laxatives? N New/unexplained onset of 3 or more stools in past 24 hrs? Y colleced in endo Pending 027 027 NAP1-B1 Presumptive Negative *for epidemiolologic???use C. Diff PCR Negative- No toxigenic C. Diff Detected Normal [facility] Comment on above: Performed By: #### M 100.6796 ####[facility] [address] [place], [address] Clostridium difficile detect ion by polymerase chain reactionOrdered By: Cristino Kwan on 11-04-2024 C. difficile DNA TYLER+probe Ql (Unsp spec) [facility] Colonoscopy Reporton 025 Colonoscopy Report Normal [facility] ENTERIC PATHOGEN PANEL STOOL on 11-04-2024 EP PANEL Comments: collected in or during colonoscopya CAMPYLOBACTER Not Detected Norovirus Not Detected Rotavirus Not Detected Salmonella Not Detected Shiga Toxin Not Detected Shigella sp. Not Detected VIBRIO Not Detected Yersinia Not Detected Normal [facility] Comment on above: Performed By: #### M 100.637 ####[facility] [address] [place], [address] MR/POSTOP.ANEon 11-04-2024 MR/POSTOP.ANE Normal [facility] MR/[id number] 11-04-2024 MR/POSTOPAN2 Normal [facility] Magnesiumon 11-04-2024 Magnesium [Mass/Vol] 2.0 mg/dL Normal 1.6-2.6 [facility] Comment on above: Order Comment: Comme nts: add to am labs Performed By: #### L 501.5200 ####[facility] [id number] [place], [address] Stool enteric pathogen panel by probe and target amplification methodOrdered By: Cristino Kwan on 11-04-2024 Enteric Bacteriology [facility] Surgery Specimen Level Rick 11-04-2024 Surgery Specimen Level IV Normal [facility] Comment on above: Performed By: #### P SUIV ####[facility] [id number] [place], [address] Abdomen Single Viewon 2024 Abdomen Single View Normal [facility] Abdomen Single View Normal [facility] Abdomen Single View Normal [facility] Abdomen Single View (Portabl e)on 11-03-2024 Abdomen Single View (Portable) Normal [facility] Basic Metabolic Profile (BMP )on 11-03-2024 BUN/CRE 39.4 RATIO High 10-20 [facility] Comment on above: Performed By: #### L 501.5200, L501.2300, L500.2500, L100.0100 ####[facility] [id number] [place], [address] CA,Total 8.6 mg/dL Normal 8.5-10.1 [facility] Comment on above: Performed By: #### L 501.5200, L501.2300, L500.2500, L100.0100 ####[facility] [address] [place], [address] Chloride [Moles/Vol] 107 mmol/L Normal 98-107 [facility] Comment on above: Performed By: #### L 501.5200, L501.2300, L500.2500, L100.0100 ####[facility] [address] [place], [address] CO2 [Moles/Vol] 21.0 mmol/L Normal 21.0-32.0 [facility] Comment on above: Performed By: #### L 501.5200, L501.2300, L500.2500, L100.0100 ####[facility] [address] [place], [address] Creatinine [Mass/Vol] 0.46 mg/dL Low 0.55-1.02 [facility] Comment on above: Result Comment: The validity of the calculated GFR GFRAA in patients over70 years has not been determined. Clinical correlation isessential. Performed By: #### L 501.5200, L501.2300, L500.2500, L100.0100 ####[facility] [address] [place], [address] ECRCL 57.27 ml/min Normal [facility] Comment on above: Performed By: #### L 501.5200, L501.2300, L500.2500, L100.0100 ####[facility] [address] [place], [address] EST GFR - AA 170 mL/min Normal >60 [facility] Comment on above: Result Comment: Afri can Surinamese GFR Calc Performed By: #### L 501.5200, L501.2300, L500.2500, L100.0100 ####[facility] [address] [place], [address] GAP 10 Normal 5-15 [facility] Comment on above: Performed By: #### L 501.5200, L501.2300, L500.2500, L100.0100 ####[facility] [address] [place], [address] GFR/1.73 sq M.predicted among non-blacks MDRD (S/P/Bld) [Vol rate/Area] 141 mL/min/{1.73_m2} Normal >60 [facility] Comment on above: Result Comment: Non- GFR Calc Performed By: #### L 501.5200, L501.2300, L500.2500, L100.0100 ####[facility] [address] [place], [address] Glucose [Mass/Vol] 104 mg/dL Normal 74-106 [facility] Comment on above: Result Comment: Fast ing Glucose result from 100 to 125 mg/dLsuggests IMPAIRED HOMEOSTASIS per A.D.A. criteria. Performed By: #### L 501.5200, L501.2300, L500.2500, L100.0100 ####[facility] [address] [place], [address] Potassium [Moles/Vol] 3.0 mmol/L Low 3.5-5.1 [facility] Comment on above: Performed By: #### L 501.5200, L501.2300, L500.2500, L100.0100 ####[facility] [address] [place], [address] Sodium [Moles/Vol] 138 mmol/L Normal 136-145 [facility] Comment on above: Performed By: #### L 501.5200, L501.2300, L500.2500, L100.0100 ####[facility] [address] [place], [address] Urea nitrogen [Mass/Vol] 18 mg/dL Normal 7-18 [facility] Comment on above: Performed By: #### L 501.5200, L501.2300, L500.2500, L100.0100 ####[facility] [address] [place], [address] CBC W/Diff, Automatedon 02-0 4-2024 Absolute Lymph 1.71 X10 3/uL Normal 0.83-4.51 [facility] Comment on above: Performed By: #### L 501.5200, L501.2300, L500.2500, L100.0100 ####[facility] [address] [place], [address] Absolute Neut 6.5 X10 3/uL Normal 2.0-7.7 [facility] Comment on above: Performed By: #### L 501.5200, L501.2300, L500.2500, L100.0100 ####[facility] [address] [place], [address] Basophils/100 WBC (Bld) 0.5 % Normal 0-1 [facility] Comment on above: Performed By: #### L 501.5200, L501.2300, L500.2500, L100.0100 ####[facility] [address] [place], [address] Eosinophils/100 WBC (Bld) 1.0 % Normal 0-5 [facility] Comment on above: Performed By: #### L 501.5200, L501.2300, L500.2500, L100.0100 ####[facility] [address] [place], [address] Erythrocyte distribution width (RBC) [Ratio] 13.4 % Normal 11.6-14.6 [facility] Comment on above: Performed By: #### L 501.5200, L501.2300, L500.2500, L100.0100 ####[facility] [address] [place], [address] Hematocrit (Bld) [Volume fraction] 31.5 % Low 37-47 [facility] Comment on above: Performed By: #### L 501.5200, L501.2300, L500.2500, L100.0100 ####[facility] [address] [place], [address] Hemoglobin (Bld) [Mass/Vol] 10.6 g/dL Low 12.0-15. 0 [facility] Comment on above: Performed By: #### L 501.5200, L501.2300, L500.2500, L100.0100 ####[facility] [address] [place], [address] IG% 0.700 Normal 0.0-0.9 [facility] Comment on above: Result Comment: IG% - Immature Granulocytes (promyelocytes, myelocytes andmetamyelocytes) > 1% indicates that a LEFT SHIFT is Present. Performed By: #### L 501.5200, L501.2300, L500.2500, L100.0100 ####[facility] [address] [place], [address] Lymphocytes/100 WBC (Bld) 18.8 % Low 19-41 [facility] Comment on above: Performed By: #### L 501.5200, L501.2300, L500.2500, L100.0100 ####[facility] [address] [place], [address] MCH (RBC) [Entitic mass] 30.2 pg Normal 27.0-32.0 [facility] Comment on above: Performed By: #### L 501.5200, L501.2300, L500.2500, L100.0100 ####[facility] [address] [place], [address] MCHC (RBC) [Mass/Vol] 33.7 g/dL Normal 32-36 [facility] Comment on above: Performed By: #### L 501.5200, L501.2300, L500.2500, L100.0100 ####[facility] [address] [place], [address] MCV (RBC) [Entitic vol] 89.7 fL Normal 81-99 [facility] Comment on above: Performed By: #### L 501.5200, L501.2300, L500.2500, L100.0100 ####[facility] [address] [place], [address] Monocytes/100 WBC (Bld) 7.6 % Normal 0-10 [facility] Comment on above: Performed By: #### L 501.5200, L501.2300, L500.2500, L100.0100 ####[facility] [address] [place], [address] Neutrophils/100 WBC (Bld) 71.4 % High 47-70 [facility] Comment on above: Performed By: #### L 501.5200, L501.2300, L500.2500, L100.0100 ####[facility] [address] [place], [address] Nucleated RBC (Bld) [#/Vol] 0 10*3/uL Normal 0-5 [facility] Comment on above: Performed By: #### L 501.5200, L501.2300, L500.2500, L100.0100 ####[facility] [address] [place], [address] Platelet mean volume (Bld) [Entitic vol] 10.4 fL Normal 6.2-12.0 [facility] Comment on above: Performed By: #### L 501.5200, L501.2300, L500.2500, L100.0100 ####[facility] [address] [place], [address] Platelets (Bld) [#/Vol] 220 10*3/uL Normal 150-450 [facility] Comment on above: Performed By: #### L 501.5200, L501.2300, L500.2500, L100.0100 ####[facility] [address] [place], [address] RBC (Bld) [#/Vol] 3.51 10*6/uL Low 4.2-5.4 [facility] Comment on above: Performed By: #### L 501.5200, L501.2300, L500.2500, L100.0100 ####[facility] [address] [place], [address] RDW SD 44.3 fl High 35.1-43.9 [facility] Comment on above: Performed By: #### L 501.5200, L501.2300, L500.2500, L100.0100 ####[facility] [address] [place], [address] WBC (Bld) [#/Vol] 9.1 10*3/uL Normal 4.4-11.0 [facility] Comment on above: Performed By: #### L 501.5200, L501.2300, L500.2500, L100.0100 ####[facility] [address] [place], [address] MR/CON.PCM.GIon 11-03-2024 MR/CON.PCM.GI Normal [facility] Magnesiumon 11-03-2024 Magnesium [Mass/Vol] 2.0 mg/dL Normal 1.6-2.6 [facility] Comment on above: Performed By: #### L 501.5200, L501.2300, L500.2500, L100.0100 ####[facility] [address] [place], [address] Phosphoruson 11-03-2024 Phosphate [Mass/Vol] 2.8 mg/dL Normal 2.5-4.9 [facility] Comment on above: Performed By: #### L 501.5200, L501.2300, L500.2500, L100.0100 ####[facility] [address] [place], [address] ALP [Catalytic activity/Vol] Ordered By: Marleni Menendez on 11-02-2024 Serum or plasma alkaline phosphatase measurement 72 U/L 45-117 [facility] ALT [Catalytic activity/Vol] Ordered By: Marleni Menendez on 11-02-2024 Serum or plasma alanine aminotransferase (ALT) measurement 30 U/L 13-56 [facility] Albumin [Mass/Vol]Ordered By : Marleni Menendez on 11-02-2024 Serum or plasma albumin measurement (mass/volume) 2.4 g/dL Low 3.2-5.0 [facility] Albumin to globulin ratioOrd ered By: Marleni Menendez on 11-02-2024 Albumin/Globulin [Mass ratio] 0.7 {ratio} Low 0.9-2.4 [facility] Albumin to globulin ratio 0.7 RATIO Low 0.9-2.4 [facility] Bilirubin, totalOrdered By: Marleni Menendez on 11-02-2024 Bilirubin [Mass/Vol] 0.80 mg/dL 0.20-1.00 [facility] Comment on above: For patients on eltr ombopag therapy, use of Dimension Tuthill TBIL is not recommended. Bilirubin, total 0.80 mg/dL 0.20-1.00 [facility] Blood cultureOrdered By: Deloris Menendez on 11-02-2024 Bacteria identified Cx Nom (Bld) No growth in 5 days. [facility] Bacteria identified Cx Nom (Bld) No growth in 5 days. [facility] Bacteria identified Cx Nom (Bld) No growth in 5 days. [facility] Blood culture No growth in 5 days. [facility] Bacteria identified Cx Nom (Bld) No growth in 5 days. [facility] Blood culture No growth in 5 days. [facility] CBC W/Diff, Automatedon 02-0 PATH REV Reviewed Normal [facility] Comment on above: Result Comment: Neut rophilic leukocytosis.Clinical correlation necessary.Uvaldo Cyr M.D. 11/02/24 AMENDED REPORT 11/02/24 1404 PATH REV previously reported as: January Performed By: #### L 100.0100, L500.4050 ####[facility] [address] [place], [address] Absolute Lymph 1.22 X10 3/uL Normal 0.83-4.51 [facility] Comment on above: Performed By: #### L 100.0100, L500.4050, L501.2300 ####[facility] [address] [place], [address] Absolute Neut 11.1 X10 3/uL High 2.0-7.7 [facility] Comment on above: Performed By: #### L 100.0100, L500.4050, L501.2300 ####[facility] [address] [place], [address] Basophils/100 WBC (Bld) 0.4 % Normal 0-1 [facility] Comment on above: Performed By: #### L 100.0100, L500.4050, L501.2300 ####[facility] [address] [place], [address] Eosinophils/100 WBC (Bld) 0.2 % Normal 0-5 [facility] Comment on above: Performed By: #### L 100.0100, L500.4050, L501.2300 ####[facility] [address] [place], [address] Erythrocyte distribution width (RBC) [Ratio] 13.2 % Normal 11.6-14.6 [facility] Comment on above: Performed By: #### L 100.0100, L500.4050, L501.2300 ####[facility] [address] [place], [address] Hematocrit (Bld) [Volume fraction] 32.7 % Low 37-47 [facility] Comment on above: Performed By: #### L 100.0100, L500.4050, L501.2300 ####[facility] [address] [place], [address] Hemoglobin (Bld) [Mass/Vol] 11.0 g/dL Low 12.0-15. 0 [facility] Comment on above: Performed By: #### L 100.0100, L500.4050, L501.2300 ####[facility] [address] [place], [address] IG% 0.500 Normal 0.0-0.9 [facility] Comment on above: Result Comment: IG% - Immature Granulocytes (promyelocytes, myelocytes andmetamyelocytes) > 1% indicates that a LEFT SHIFT is Present. Performed By: #### L 100.0100, L500.4050, L501.2300 ####[facility] [address] [place], [address] Lymphocytes/100 WBC (Bld) 9.0 % Low 19-41 [facility] Comment on above: Performed By: #### L 100.0100, L500.4050, L501.2300 ####[facility] [address] [place], [address] MCH (RBC) [Entitic mass] 30.2 pg Normal 27.0-32.0 [facility] Comment on above: Performed By: #### L 100.0100, L500.4050, L501.2300 ####[facility] [address] [place], [address] MCHC (RBC) [Mass/Vol] 33.6 g/dL Normal 32-36 [facility] Comment on above: Performed By: #### L 100.0100, L500.4050, L501.2300 ####[facility] [address] [place], [address] MCV (RBC) [Entitic vol] 89.8 fL Normal 81-99 [facility] Comment on above: Performed By: #### L 100.0100, L500.4050, L501.2300 ####[facility] [address] [place], [address] Monocytes/100 WBC (Bld) 7.8 % Normal 0-10 [facility] Comment on above: Performed By: #### L 100.0100, L500.4050, L501.2300 ####[facility] [address] [place], [address] Neutrophils/100 WBC (Bld) 82.1 % High 47-70 [facility] Comment on above: Performed By: #### L 100.0100, L500.4050, L501.2300 ####[facility] [address] [place], [address] Nucleated RBC (Bld) [#/Vol] 0 10*3/uL Normal 0-5 [facility] Comment on above: Performed By: #### L 100.0100, L500.4050, L501.2300 ####[facility] [address] [place], [address] Platelet mean volume (Bld) [Entitic vol] 10.1 fL Normal 6.2-12.0 [facility] Comment on above: Performed By: #### L 100.0100, L500.4050, L501.2300 ####[facility] [address] [place], [address] Platelets (Bld) [#/Vol] 206 10*3/uL Normal 150-450 [facility] Comment on above: Performed By: #### L 100.0100, L500.4050, L501.2300 ####[facility] [address] [place], [address] RBC (Bld) [#/Vol] 3.64 10*6/uL Low 4.2-5.4 [facility] Comment on above: Performed By: #### L 100.0100, L500.4050, L501.2300 ####[facility] [address] [place], [address] RDW SD 43.9 fl Normal 35.1-43.9 [facility] Comment on above: Performed By: #### L 100.0100, L500.4050, L501.2300 ####[facility] [address] [place], [address] WBC (Bld) [#/Vol] 13.5 10*3/uL High 4.4-11.0 [facility] Comment on above: Performed By: #### L 100.0100, L500.4050, L501.2300 ####[facility] [address] [place], [address] Comprehensive Metabolic Prof ilon 11-02-2024 Albumin [Mass/Vol] 2.4 g/dL Low 3.2-5.0 [facility] Comment on above: Performed By: #### L 100.0100, L500.4050, L501.2300 ####[facility] [address] [place], [address] Albumin/Globulin [Mass ratio] 0.7 {ratio} Low 0.9-2.4 [facility] Comment on above: Performed By: #### L 100.0100, L500.4050, L501.2300 ####[facility] [address] [place], [address] ALK P 72 U/L Normal 45-117 [facility] Comment on above: Performed By: #### L 100.0100, L500.4050, L501.2300 ####[facility] [address] [place], [address] ALT [Catalytic activity/Vol] 30 U/L Normal 13-56 [facility] Comment on above: Performed By: #### L 100.0100, L500.4050, L501.2300 ####[facility] [address] [place], [address] AST [Catalytic activity/Vol] 37 U/L Normal 15-37 [facility] Comment on above: Performed By: #### L 100.0100, L500.4050, L501.2300 ####[facility] [address] [place], [address] Bilirubin [Mass/Vol] 0.80 mg/dL Normal 0.20-1.00 [facility] Comment on above: Result Comment: For patients on eltrombopag therapy, use of Dimension Tuthill TBIL is not recommended. Performed By: #### L 100.0100, L500.4050, L501.2300 ####[facility] [address] [place], [address] BUN/CRE 20.1 RATIO High 10-20 [facility] Comment on above: Performed By: #### L 100.0100, L500.4050, L501.2300 ####[facility] [address] [place], [address] CA,Total 8.3 mg/dL Low 8.5-10.1 [facility] Comment on above: Performed By: #### L 100.0100, L500.4050, L501.2300 ####[facility] [address] [place], [address] Chloride [Moles/Vol] 107 mmol/L Normal 98-107 [facility] Comment on above: Performed By: #### L 100.0100, L500.4050, L501.2300 ####[facility] [address] [place], [address] CO2 [Moles/Vol] 21.0 mmol/L Normal 21.0-32.0 [facility] Comment on above: Performed By: #### L 100.0100, L500.4050, L501.2300 ####[facility] [address] [place], [address] Creatinine [Mass/Vol] 0.55 mg/dL Normal 0.55-1.02 [facility] Comment on above: Result Comment: The validity of the calculated GFR GFRAA in patients over70 years has not been determined. Clinical correlation isessential. Performed By: #### L 100.0100, L500.4050, L501.2300 ####[facility] [address] [place], [address] ECRCL 57.27 ml/min Normal [facility] Comment on above: Performed By: #### L 100.0100, L500.4050, L501.2300 ####[facility] [address] [place], [address] EST GFR - AA 139 mL/min Normal >60 [facility] Comment on above: Result Comment: Afri can [place] GFR Calc Performed By: #### L 100.0100, L500.4050, L501.2300 ####[facility] [address] [place], [address] GAP 11 Normal 5-15 [facility] Comment on above: Performed By: #### L 100.0100, L500.4050, L501.2300 ####[facility] [address] [place], [address] GFR/1.73 sq M.predicted among non-blacks MDRD (S/P/Bld) [Vol rate/Area] 115 mL/min/{1.73_m2} Normal >60 [facility] Comment on above: Result Comment: Non- GFR Calc Performed By: #### L 100.0100, L500.4050, L501.2300 ####[facility] [address] [place], [address] Globulin (S) [Mass/Vol] 3.6 g/dL Normal 2.2-4.2 [facility] Comment on above: Performed By: #### L 100.0100, L500.4050, L501.2300 ####[facility] [address] [place], [address] Glucose [Mass/Vol] 111 mg/dL High 74-106 [facility] Comment on above: Result Comment: Fast ing Glucose result from 100 to 125 mg/dLsuggests IMPAIRED HOMEOSTASIS per A.D.A. criteria. Performed By: #### L 100.0100, L500.4050, L501.2300 ####[facility] [address] [place], [address] Potassium [Moles/Vol] 3.4 mmol/L Low 3.5-5.1 [facility] Comment on above: Performed By: #### L 100.0100, L500.4050, L501.2300 ####[facility] [address] [place], [address] Sodium [Moles/Vol] 139 mmol/L Normal 136-145 [facility] Comment on above: Performed By: #### L 100.0100, L500.4050, L501.2300 ####[facility] [address] [place], [address] T PROT 6.0 g/dL Low 6.4-8.2 [facility] Comment on above: Performed By: #### L 100.0100, L500.4050, L501.2300 ####[facility] [address] [place], [address] Urea nitrogen [Mass/Vol] 11 mg/dL Normal 7-18 [facility] Comment on above: Performed By: #### L 100.0100, L500.4050, L501.2300 ####[facility] [address] [place], [address] Consultation - Infectious Dx on 11-02-2024 Consultation - Infectious Dx Normal [facility] Culture, Blood (WB)on 2024 CUB Normal [facility] Comment on above: Performed By: #### M 200.1000 ####[facility] [address] [place], [address] CUB Normal [facility] Comment on above: Performed By: #### M 200.1000, M100.636 ####[facility] [address] [place], [address] Laboratory - Chemistry and C hemistry - challengeOrdered By: Marleni Menendez on 11-02-2024 AST [Catalytic activity/Vol] 37 U/L [facility] No Panel InformationOrdered By: Marleni Menendez on 11-02-2024 37 U/L [facility] Phosphoruson 11-02-2024 Phosphate [Mass/Vol] 3.2 mg/dL Normal 2.5-4.9 [facility] Comment on above: Performed By: #### L 100.0100, L500.4050, L501.2300 ####[facility] [address] [place], [address] Serum globulin measurementOr dered By: Marleni Menendez on 11-02-2024 Globulin (S) [Mass/Vol] 3.6 g/dL 2.2-4.2 [facility] Serum globulin measurement 3.6 g/dL 2.2-4.2 [facility] Serum or plasma alanine phillips otransferase (ALT) measurementOrdered By: Marleni Menendez on 11-02-2024 ALT [Catalytic activity/Vol] 30 U/L 13-56 [facility] Serum or plasma albumin abhinav urement (mass/volume)Ordered By: Marleni Menendez on 11-02-2024 Albumin [Mass/Vol] 2.4 g/dL Low 3.2-5.0 [facility] Serum or plasma alkaline jose sphatase measurementOrdered By: Marleni Menendez on 11-02-2024 ALP [Catalytic activity/Vol] 72 U/L 45-117 [facility] Serum or plasma trough vanco mycin levelOrdered By: Marleni Menendez on 11-02-2024 Vancomycin trough [Mass/Vol] 8.5 ug/mL 5.0-15.0 [facility] Spine Lumbar W/WO Contraston 11-02-2024 Spine Lumbar W/WO Contrast Normal [facility] Total proteinOrdered By: Deloris Menendez on 11-02-2024 Protein [Mass/Vol] 6.0 g/dL Low 6.4-8.2 [facility] Total protein 6.0 g/dL Low 6.4-8.2 [facility] Vancomycin trough [Mass/Vol] Ordered By: Marleni Menendez on 11-02-2024 Vancomycin Level Trough 8.5 ug/mL 5.0-15.0 [facility] Comment on above: VANCOMYCIN STANDARED DRUG THERAPY TROUGH LEVEL: 5.0 - 15.0 mg/L VANCOMYCIN HIGH INTENSITY THERAPY TROUGH LEVEL: 15.0 - 20.0 mg/L High Intensity therapy recommended for serious lifethreatening infections include:- Qgztlykxhn-Gqhzwqedwpzh-Iefnrkydk (Ventilator/Healtcare Associated)-Sepsis PLEASE CONTACT PHARMACY SERVICES (#[id number]) FOR INTERPRETATIONOF RESULTS. Serum or plasma trough vancomycin level 8.5 ug/mL 5.0-15.0 [facility] Vancomycin, Trough Levelon 0 11-02-2024 VANCO, TROUGH 8.5 ug/mL Normal 5.0-15.0 [facility] Comment on above: Order Comment: Comme nts: Trough to be drawn 30 mins prior to scheduled [id number] Result Comment: VANC OMYCIN STANDARED DRUG THERAPY TROUGH LEVEL: 5.0 - 15.0 mg/LVANCOMYCIN HIGH INTENSITY THERAPY TROUGH LEVEL: 15.0 - 20.0 mg/LHigh Intensity therapy recommended for serious lifethreatening infections include:- Vcdkbosfci-Kkmxxxpdofvn-Rdhjyanht (Ventilator/Healtcare Associated)-SepsisPLEASE CONTACT PHARMACY SERVICES (#[id number]) FOR INTERPRETATIONOF RESULTS. Performed By: #### L 501.8820 ####[facility] [address] [place], [address] Abdomen/Pelvis WITH Contrast on 11-01-2024 Abdomen/Pelvis WITH Contrast Normal [facility] GPC IDon 11-01-2024 GPC ID Normal [facility] Comment on above: Performed By: #### M 200.1000, M100.636 ####[facility] [address] [place], [address] Basic Metabolic Profile (BMP )on 11-01-2024 BUN/CRE 22.6 RATIO High 10-20 [facility] Comment on above: Performed By: #### L 501.2300, L501.5200, L500.2500, L100.0100 ####[facility] [address] [place], [address] CA,Total 8.7 mg/dL Normal 8.5-10.1 [facility] Comment on above: Performed By: #### L 501.2300, L501.5200, L500.2500, L100.0100 ####[facility] [address] [place], [address] Chloride [Moles/Vol] 107 mmol/L Normal 98-107 [facility] Comment on above: Performed By: #### L 501.2300, L501.5200, L500.2500, L100.0100 ####[facility] [address] [place], [address] CO2 [Moles/Vol] 23.0 mmol/L Normal 21.0-32.0 [facility] Comment on above: Performed By: #### L 501.2300, L501.5200, L500.2500, L100.0100 ####[facility] [address] [place], [address] Creatinine [Mass/Vol] 0.66 mg/dL Normal 0.55-1.02 [facility] Comment on above: Result Comment: The validity of the calculated GFR GFRAA in patients over70 years has not been determined. Clinical correlation isessential. Performed By: #### L 501.2300, L501.5200, L500.2500, L100.0100 ####[facility] [address] [place], [address] ECRCL 57.27 ml/min Normal [facility] Comment on above: Performed By: #### L 501.2300, L501.5200, L500.2500, L100.0100 ####[facility] [address] [place], [address] EST GFR - AA 111 mL/min Normal >60 [facility] Comment on above: Result Comment: Afri can Surinamese GFR Calc Performed By: #### L 501.2300, L501.5200, L500.2500, L100.0100 ####[facility] [address] [place], [address] GAP 9 Normal 5-15 [facility] Comment on above: Performed By: #### L 501.2300, L501.5200, L500.2500, L100.0100 ####[facility] [address] [place], [address] GFR/1.73 sq M.predicted among non-blacks MDRD (S/P/Bld) [Vol rate/Area] 92 mL/min/{1.73_m2} Normal >60 [facility] Comment on above: Result Comment: Non- GFR Calc Performed By: #### L 501.2300, L501.5200, L500.2500, L100.0100 ####[facility] [address] [place], [address] Glucose [Mass/Vol] 103 mg/dL Normal 74-106 [facility] Comment on above: Result Comment: Fast ing Glucose result from 100 to 125 mg/dLsuggests IMPAIRED HOMEOSTASIS per A.D.A. criteria. Performed By: #### L 501.2300, L501.5200, L500.2500, L100.0100 ####[facility] [address] [place], [address] Potassium [Moles/Vol] 3.1 mmol/L Low 3.5-5.1 [facility] Comment on above: Performed By: #### L 501.2300, L501.5200, L500.2500, L100.0100 ####[facility] [address] [place], [address] Sodium [Moles/Vol] 139 mmol/L Normal 136-145 [facility] Comment on above: Performed By: #### L 501.2300, L501.5200, L500.2500, L100.0100 ####[facility] [address] [place], [address] Urea nitrogen [Mass/Vol] 15 mg/dL Normal 7-18 [facility] Comment on above: Performed By: #### L 501.2300, L501.5200, L500.2500, L100.0100 ####[facility] [address] [place], [address] CBC W/Diff, Automatedon 02-0 2-2024 Absolute Lymph 1.21 X10 3/uL Normal 0.83-4.51 [facility] Comment on above: Performed By: #### L 501.2300, L501.5200, L500.2500, L100.0100 ####[facility] [address] [place], [address] Absolute Neut 16.7 X10 3/uL High 2.0-7.7 [facility] Comment on above: Performed By: #### L 501.2300, L501.5200, L500.2500, L100.0100 ####[facility] [address] [place], [address] Basophils/100 WBC (Bld) 0.2 % Normal 0-1 [facility] Comment on above: Performed By: #### L 501.2300, L501.5200, L500.2500, L100.0100 ####[facility] [address] [place], [address] Eosinophils/100 WBC (Bld) 0.0 % Normal 0-5 [facility] Comment on above: Performed By: #### L 501.2300, L501.5200, L500.2500, L100.0100 ####[facility] [address] [place], [address] Erythrocyte distribution width (RBC) [Ratio] 13.4 % Normal 11.6-14.6 [facility] Comment on above: Performed By: #### L 501.2300, L501.5200, L500.2500, L100.0100 ####[facility] [address] [place], [address] Hematocrit (Bld) [Volume fraction] 35.8 % Low 37-47 [facility] Comment on above: Performed By: #### L 501.2300, L501.5200, L500.2500, L100.0100 ####[facility] [address] [place], [address] Hemoglobin (Bld) [Mass/Vol] 11.6 g/dL Low 12.0-15. 0 [facility] Comment on above: Performed By: #### L 501.2300, L501.5200, L500.2500, L100.0100 ####[facility] [address] [place], [address] IG% 0.500 Normal 0.0-0.9 [facility] Comment on above: Result Comment: IG% - Immature Granulocytes (promyelocytes, myelocytes andmetamyelocytes) > 1% indicates that a LEFT SHIFT is Present. Performed By: #### L 501.2300, L501.5200, L500.2500, L100.0100 ####[facility] [address] [place], [address] Lymphocytes/100 WBC (Bld) 6.2 % Low 19-41 [facility] Comment on above: Performed By: #### L 501.2300, L501.5200, L500.2500, L100.0100 ####[facility] [address] [place], [address] MCH (RBC) [Entitic mass] 30.1 pg Normal 27.0-32.0 [facility] Comment on above: Performed By: #### L 501.2300, L501.5200, L500.2500, L100.0100 ####[facility] [address] [place], [address] MCHC (RBC) [Mass/Vol] 32.4 g/dL Normal 32-36 [facility] Comment on above: Performed By: #### L 501.2300, L501.5200, L500.2500, L100.0100 ####[facility] [address] [place], [address] MCV (RBC) [Entitic vol] 92.7 fL Normal 81-99 [facility] Comment on above: Performed By: #### L 501.2300, L501.5200, L500.2500, L100.0100 ####[facility] [address] [place], [address] Monocytes/100 WBC (Bld) 7.6 % Normal 0-10 [facility] Comment on above: Performed By: #### L 501.2300, L501.5200, L500.2500, L100.0100 ####[facility] [address] [place], [address] Neutrophils/100 WBC (Bld) 85.5 % High 47-70 [facility] Comment on above: Performed By: #### L 501.2300, L501.5200, L500.2500, L100.0100 ####[facility] [address] [place], [address] Nucleated RBC (Bld) [#/Vol] 0 10*3/uL Normal 0-5 [facility] Comment on above: Performed By: #### L 501.2300, L501.5200, L500.2500, L100.0100 ####[facility] [address] [place], [address] Platelet mean volume (Bld) [Entitic vol] 10.9 fL Normal 6.2-12.0 [facility] Comment on above: Performed By: #### L 501.2300, L501.5200, L500.2500, L100.0100 ####[facility] [address] [place], [address] Platelets (Bld) [#/Vol] 205 10*3/uL Normal 150-450 [facility] Comment on above: Performed By: #### L 501.2300, L501.5200, L500.2500, L100.0100 ####[facility] [address] [place], [address] RBC (Bld) [#/Vol] 3.86 10*6/uL Low 4.2-5.4 [facility] Comment on above: Performed By: #### L 501.2300, L501.5200, L500.2500, L100.0100 ####[facility] [address] [place], [address] RDW SD 45.4 fl High 35.1-43.9 [facility] Comment on above: Performed By: #### L 501.2300, L501.5200, L500.2500, L100.0100 ####[facility] [address] [place], [address] WBC (Bld) [#/Vol] 19.5 10*3/uL High 4.4-11.0 [facility] Comment on above: Performed By: #### L 501.2300, L501.5200, L500.2500, L100.0100 ####[facility] [address] [place], [address] Echo Completeon 11-01-2024 Echo Complete Normal [facility] Magnesiumon 11-01-2024 Magnesium [Mass/Vol] 1.8 mg/dL Normal 1.6-2.6 [facility] Comment on above: Performed By: #### L 501.2300, L501.5200, L500.2500, L100.0100 ####[facility] [address] [place], [address] Mandible Min 4 Viewson 11-01 Mandible Min 4 Views Normal [facility] Phosphoruson 11-01-2024 Phosphate [Mass/Vol] 2.1 mg/dL Low 2.5-4.9 [facility] Comment on above: Performed By: #### L 501.2300, L501.5200, L500.2500, L100.0100 ####[facility] [address] [place], [address] Basic Metabolic Profile (BMP )on 10-31-2024 BUN/CRE 15.7 RATIO Normal 10-20 [facility] Comment on above: Performed By: #### L 500.2500, L100.0500 ####[facility] [address] [place], [address] CA,Total 8.3 mg/dL Low 8.5-10.1 [facility] Comment on above: Performed By: #### L 500.2500, L100.0500 ####[facility] [address] [place], [address] Chloride [Moles/Vol] 103 mmol/L Normal 98-107 [facility] Comment on above: Performed By: #### L 500.2500, L100.0500 ####[facility] [address] [place], [address] CO2 [Moles/Vol] 20.0 mmol/L Low 21.0-32.0 [facility] Comment on above: Performed By: #### L 500.2500, L100.0500 ####[facility] [address] [place], [address] Creatinine [Mass/Vol] 0.83 mg/dL Normal 0.55-1.02 [facility] Comment on above: Result Comment: The validity of the calculated GFR GFRAA in patients over70 years has not been determined. Clinical correlation isessential. Performed By: #### L 500.2500, L100.0500 ####[facility] [address] [place], [address] ECRCL 55.20 ml/min Normal [facility] Comment on above: Performed By: #### L 500.2500, L100.0500 ####[facility] [address] [place], [address] EST GFR - AA 86 mL/min Normal >60 [facility] Comment on above: Result Comment: Afri can [place] GFR Calc Performed By: #### L 500.2500, L100.0500 ####[facility] [address] [place], [address] GAP 10 Normal 5-15 [facility] Comment on above: Performed By: #### L 500.2500, L100.0500 ####[facility] [address] [place], [address] GFR/1.73 sq M.predicted among non-blacks MDRD (S/P/Bld) [Vol rate/Area] 71 mL/min/{1.73_m2} Normal >60 [facility] Comment on above: Result Comment: Non- GFR Calc Performed By: #### L 500.2500, L100.0500 ####[facility] [address] [place], [address] Glucose [Mass/Vol] 114 mg/dL High 74-106 [facility] Comment on above: Result Comment: Fast ing Glucose result from 100 to 125 mg/dLsuggests IMPAIRED HOMEOSTASIS per A.D.A. criteria. Performed By: #### L 500.2500, L100.0500 ####[facility] [address] [place], [address] Potassium [Moles/Vol] 3.4 mmol/L Low 3.5-5.1 [facility] Comment on above: Performed By: #### L 500.2500, L100.0500 ####[facility] [address] [place], [address] Sodium [Moles/Vol] 133 mmol/L Low 136-145 [facility] Comment on above: Performed By: #### L 500.2500, L100.0500 ####[facility] [address] [place], [address] Urea nitrogen [Mass/Vol] 13 mg/dL Normal 7-18 [facility] Comment on above: Performed By: #### L 500.2500, L100.0500 ####[facility] [address] [place], [address] CBC-Complete Blood Cnt No Di ffon 10-31-2024 Erythrocyte distribution width (RBC) [Ratio] 13.5 % Normal 11.6-14.6 [facility] Comment on above: Performed By: #### L 500.2500, L100.0500 ####[facility] [address] [place], [address] Hematocrit (Bld) [Volume fraction] 36.4 % Low 37-47 [facility] Comment on above: Performed By: #### L 500.2500, L100.0500 ####[facility] [address] [place], [address] Hemoglobin (Bld) [Mass/Vol] 11.8 g/dL Low 12.0-15. 0 [facility] Comment on above: Performed By: #### L 500.2500, L100.0500 ####[facility] [address] [place], [address] MCH (RBC) [Entitic mass] 30.1 pg Normal 27.0-32.0 [facility] Comment on above: Performed By: #### L 500.2500, L100.0500 ####[facility] [address] [place], [address] MCHC (RBC) [Mass/Vol] 32.4 g/dL Normal 32-36 [facility] Comment on above: Performed By: #### L 500.2500, L100.0500 ####[facility] [address] [place], [address] MCV (RBC) [Entitic vol] 92.9 fL Normal 81-99 [facility] Comment on above: Performed By: #### L 500.2500, L100.0500 ####[facility] [address] [place], [address] Platelet mean volume (Bld) [Entitic vol] 10.6 fL Normal 6.2-12.0 [facility] Comment on above: Performed By: #### L 500.2500, L100.0500 ####[facility] [address] [place], [address] Platelets (Bld) [#/Vol] 216 10*3/uL Normal 150-450 [facility] Comment on above: Performed By: #### L 500.2500, L100.0500 ####[facility] [address] [place], [address] RBC (Bld) [#/Vol] 3.92 10*6/uL Low 4.2-5.4 [facility] Comment on above: Performed By: #### L 500.2500, L100.0500 ####[facility] [address] [place], [address] RDW SD 45.8 fl High 35.1-43.9 [facility] Comment on above: Performed By: #### L 500.2500, L100.0500 ####[facility] [address] [place], [address] WBC (Bld) [#/Vol] 20.4 10*3/uL High 4.4-11.0 [facility] Comment on above: Performed By: #### L 500.2500, L100.0500 ####[facility] [address] [place], [address] COVID 19 AG RAPID (RN COLLEC T)on 10-31-2024 SARS-CoV-2 (COVID-19) RNA TYLER+probe Ql (Unsp spec) Normal [facility] Comment on above: Performed By: #### M 100.505 ####[facility] [address] [place], [address] COVID-19 virus antigen assay Ordered By: Marleni Menendez on 10-31-2024 SARS-CoV-2 (COVID-19) Ag IA.rapid Ql (Resp) [facility] ESR (Bld) [Velocity]Ordered By: Zachary Fletcher on 10-31-2024 Erythrocyte sedimentation rate 13 mm/hr 0-30 [facility] Erythrocyte Sed Rateon 10-31 SED RATE 13 mm/hr Normal 0-30 [facility] Comment on above: Performed By: #### L 101.9900 ####[facility] [address] [place], [address] Erythrocyte sedimentation ra teOrdered By: Zachary Fletcher on 10-31-2024 ESR (Bld) [Velocity] 13 mm/h 0-30 [facility] Folates, (Folic Acid)on FOLATES 13.90 ng/mL Normal 3.1-55.4 [facility] Comment on above: Order Comment: Has P atient had X-rays with Contrast this admission? YN Performed By: #### L 503.0105, L501.9520, L505.5000, L506.0250 ####[facility] [address] [place], [address] L501.4020on 10-31-2024 TROPONIN-I HS 17 pg/mL Normal 3.0-54.0 [facility] Comment on above: Order Comment: 'TROP ' Serial specimen #1, #2 or #3: 1 Result Comment: Kate peña Note: New Test Units and Gender Specific Reference Ranges. For more information see Policy Stat Procedure [place] High Sensitivity Troponin (TNIH) and attachments. Performed By: #### L 501.7078 ####[facility] [address] [place], [address] Lactic Acidon 10-31-2024 Lactate [Moles/Vol] 1.0 mmol/L Normal 0.4-1.9 [facility] Comment on above: Order Comment: Y Performed By: #### L 503.6001 ####[facility] [address] [place], [address] RESPIRATORY PANEL MOLECULARo n 10-31-2024 RP PANEL Normal [facility] Comment on above: Performed By: #### M 100.638 ####[facility] [address] [place], [address] SARS-CoV-2 (COVID-19) Ag IA. rapid Ql (Resp)Ordered By: Marleni Menendez on 10-31-2024 SARS-CoV-2 Antigen (Rapid) [facility] Thyroid Stim Hormone (TSH)on 10-31-2024 TSH 0.640 uIU/mL Normal 0.358-3.74 0 [facility] Comment on above: Order Comment: Has P viky had X-rays with Contrast this admission? Y Performed By: #### L 503.0105, L501.9520, L505.5000, L506.0250 ####[facility] [address] [place], [address] Urine Drug Screen (VISTA)on 10-31-2024 AMPHETAMINES Negative Normal <1000 ng/mL [facility] Comment on above: Performed By: #### L 503.0105, L501.9520, L505.5000, L506.0250 ####[facility] [address] [place], [address] BARBITIURATES Negative Normal < 200 ng/mL [facility] Comment on above: Performed By: #### L 503.0105, L501.9520, L505.5000, L506.0250 ####[facility] [address] [place], [address] BENZODIAZIPINE Negative Normal < 200 ng/mL [facility] Comment on above: Performed By: #### L 503.0105, L501.9520, L505.5000, L506.0250 ####[facility] [address] [place], [address] COCAINE Negative Normal < 300 ng/mL [facility] Comment on above: Performed By: #### L 503.0105, L501.9520, L505.5000, L506.0250 ####[facility] [address] [place], [address] ECSTACY Negative Normal < 500 ng/mL [facility] Comment on above: Performed By: #### L 503.0105, L501.9520, L505.5000, L506.0250 ####[facility] [address] [place], [address] METHADONE Negative Normal < 300 ng/mL [facility] Comment on above: Performed By: #### L 503.0105, L501.9520, L505.5000, L506.0250 ####[facility] [address] [place], [address] OPIATES Negative Normal < 300 ng/mL [facility] Comment on above: Performed By: #### L 503.0105, L501.9520, L505.5000, L506.0250 ####[facility] [address] [place], [address] PCP Negative Normal < 25 ng/mL [facility] Comment on above: Performed By: #### L 503.0105, L501.9520, L505.5000, L506.0250 ####[facility] [address] [place], [address] THC Negative Normal < 50 ng/mL [facility] Comment on above: Performed By: #### L 503.0105, L501.9520, L505.5000, L506.0250 ####[facility] [address] [place], [address] VISTA UDS PH 7 Normal [facility] Comment on above: Performed By: #### L 503.0105, L501.9520, L505.5000, L506.0250 ####[facility] [address] [place], [address] Vitamin B12on 10-31-2024 Cobalamin (Vitamin B12) [Mass/Vol] 377 pg/mL Normal 211-911 [facility] Comment on above: Performed By: #### L 503.0105, L501.9520, L505.5000, L506.0250 ####[facility] [address] [place], [address] Arterial patency Wrist arter y --pre arterial punctureOrdered By: Shiv Andrews on 10-30-2024 Nikos Test Positive [facility] Assessment of wrist artery patency prior to arterial puncture Positive [facility] Assessment of wrist artery p atency prior to arterial punctureOrdered By: Shiv Andrews on 10-30-2024 Arterial patency Wrist artery --pre arterial puncture Positive [facility] Base excess Calc (BldV) [Mol es/Vol]Ordered By: Shiv Andrews on 10-30-2024 Blood Gas Base Excess -4 mmol/L Low -2-2 [facility] Blood base excess determination -4 mmol/L Low -2-2 [facility] Bilirubin Test strip Ql (U)O rdered By: She Tejada on 10-30-2024 Bilirubin Ql (U) Negative Negative [facility] Blood Gases by CPSon 025 NIKOS TEST Positive Normal [facility] Comment on above: Performed By: #### L 9000.0800 ####[facility] [address] [place], [address] Base excess Calc (Bld) [Moles/Vol] -4 mmol/L Low -2 to +2 [facility] Comment on above: Performed By: #### L 9000.0800 ####[facility] [address] [place], [address] Blood Gas Type ART Normal [facility] Comment on above: Performed By: #### L 9000.0800 ####[facility] [address] [place], [address] CO2 [Moles/Vol] 20 mmol/L Normal [facility] Comment on above: Performed By: #### L 9000.0800 ####[facility] [address] [place], [address] FI02 21.0 Normal [facility] Comment on above: Performed By: #### L 9000.0800 ####[facility] [address] [place], [address] HCO3 (Bld) [Moles/Vol] 19.3 mmol/L Low 22-26 [facility] Comment on above: Performed By: #### L 9000.0800 ####[facility] [address] [place], [address] Mode Not entered [facility] Comment on above: Performed By: #### L 9000.0800 ####[facility] [address] [place], [address] O2 Delivery Dev Not entered [facility] Comment on above: Performed By: #### L 9000.0800 ####[facility] [address] [place], [address] pCO2 25.8 mmHg Low 35-45 [facility] Comment on above: Performed By: #### L 9000.0800 ####[facility] [address] [place], [address] pH (Bld) 7.48 [pH] High 7.35-7.45 [facility] Comment on above: Performed By: #### L 9000.0800 ####[facility] [address] [place], [address] PO2 149 mmHG High 75-100 [facility] Comment on above: Performed By: #### L 9000.0800 ####[facility] [address] [place], [address] SITE R Radial Normal [facility] Comment on above: Performed By: #### L 9000.0800 ####[facility] [address] [place], [address] SO2 100 High 95-99 [facility] Comment on above: Performed By: #### L 9000.0800 ####[facility] [address] [place], [address] Blood base excess determinat ionOrdered By: Shiv Andrews on 10-30-2024 Base excess Calc (BldV) [Moles/Vol] -4 mmol/L Low -2-2 [facility] Blood bicarbonate measuremen tOrdered By: Shiv Andrews on 10-30-2024 Blood Gas Bicarbonate Actual 19.3 mmol/L Low 22- [facility] HCO3 (Bld) [Moles/Vol] 19.3 mmol/L Low 22- [facility] Blood bicarbonate measurement 19.3 mmol/L Low - [facility] Blood cultureOrdered By: Kong Fletcher on 10-30-2024 Bacteria identified Cx Nom (Bld) Streptococcus alactolyticus Abnormal [facility] Bacteria identified Cx Nom (Bld) Alpha hemolytic organism Abnormal [facility] Bacteria identified Cx Nom (Bld) Streptococcus alactolyticus Abnormal [facility] Blood culture Streptococcus alactolyticus Abnormal [facility] Bacteria identified Cx Nom (Bld) Alpha hemolytic organism Abnormal [facility] Blood culture Alpha hemolytic organism Abnormal [facility] Blood manual differential co mment interpretation (narrative result)Ordered By: She Tejada on 10-30-2024 Manual differential comment Rico (Bld) [Interp] SCANNED [facility] C-reactive protein measureme nt by high sensitivity methodOrdered By: Shiv Andrews on 10-30-2024 C-Reactive Protein Extended Range 127.00 mg/L High 0.0-3.0 [facility] Comment on above: C-Reactive Protein ( CRP) provides useful information for thediagnosis, therapy and monitoring of inflammatory processesand associated diseases. For the evaluation of Relative Riskfor Cardiovascular Disease, a High Sensitivity CRP (HSCRP)should be ordered. C-reactive protein measurement by high sensitivity method 127.00 mg/L High 0.0-3.0 [facility] C-reactive protein measurement by high sensitivity method 127.00 mg/L High 0.0-3.0 [facility] CPK Total, Creatine Kinaseon 10-30-2024 CPK TOTAL 105 U/L Normal 26-192 [facility] Comment on above: Performed By: #### L 501.3620 ####[facility] [address] [place], [address] CRPon 10-30-2024 C-REACTIVE PROT 127.00 mg/L High 0.0-3.0 [facility] Comment on above: Result Comment: C-Re active Protein (CRP) provides useful information for thediagnosis, therapy and monitoring of inflammatory processesand associated diseases. For the evaluation of Relative Riskfor Cardiovascular Disease, a High Sensitivity CRP (HSCRP)should be ordered. Performed By: #### L 501.6710, L101.9900 ####[facility] [address] [place], [address] CT Chest, Abd, Pelvis WO Con ton 10-30-2024 CT Chest, Abd, Pelvis WO Cont Normal [facility] Clarity (U)Ordered By: Chasidy Tejada on 10-30-2024 Urine clarity Clear Clear [facility] Color (U)Ordered By: She Tejada on 10-30-2024 Urine color determination Yellow Yellow [facility] Comprehensive Metabolic Prof ilon 10-30-2024 Albumin [Mass/Vol] 3.2 g/dL Normal 3.2-5.0 [facility] Comment on above: Performed By: #### L 100.0100, L500.4050 ####[facility] [address] [place], [address] Albumin/Globulin [Mass ratio] 1.0 {ratio} Normal 0.9-2.4 [facility] Comment on above: Performed By: #### L 100.0100, L500.4050 ####[facility] [address] [place], [address] ALK P 89 U/L Normal 45-117 [facility] Comment on above: Performed By: #### L 100.0100, L500.4050 ####[facility] [id number] [place], [address] ALT [Catalytic activity/Vol] 19 U/L Normal 13-56 [facility] Comment on above: Performed By: #### L 100.0100, L500.4050 ####[facility] [address] [place], [address] AST [Catalytic activity/Vol] 18 U/L Normal 15-37 [facility] Comment on above: Performed By: #### L 100.0100, L500.4050 ####[facility] [address] [place], [address] Bilirubin [Mass/Vol] 0.70 mg/dL Normal 0.20-1.00 [facility] Comment on above: Result Comment: For patients on eltrombopag therapy, use of Dimension Tuthill TBIL is not recommended. Performed By: #### L 100.0100, L500.4050 ####[facility] [address] [place], [address] BUN/CRE 23.4 RATIO High 10-20 [facility] Comment on above: Performed By: #### L 100.0100, L500.4050 ####[facility] [address] [place], [address] CA,Total 8.8 mg/dL Normal 8.5-10.1 [facility] Comment on above: Performed By: #### L 100.0100, L500.4050 ####[facility] [address] [place], [address] Chloride [Moles/Vol] 102 mmol/L Normal 98-107 [facility] Comment on above: Performed By: #### L 100.0100, L500.4050 ####[facility] [address] [place], [address] CO2 [Moles/Vol] 23.0 mmol/L Normal 21.0-32.0 [facility] Comment on above: Performed By: #### L 100.0100, L500.4050 ####[facility] [address] [place], [address] Creatinine [Mass/Vol] 0.64 mg/dL Normal 0.55-1.02 [facility] Comment on above: Result Comment: The validity of the calculated GFR GFRAA in patients over70 years has not been determined. Clinical correlation isessential. Performed By: #### L 100.0100, L500.4050 ####[facility] [address] [place], [address] ECRCL 57.27 ml/min Normal [facility] Comment on above: Performed By: #### L 100.0100, L500.4050 ####[facility] [address] [place], [address] EST GFR - AA 115 mL/min Normal >60 [facility] Comment on above: Result Comment: Afri can Surinamese GFR Calc Performed By: #### L 100.0100, L500.4050 ####[facility] [address] [place], [address] GAP 7 Normal 5-15 [facility] Comment on above: Performed By: #### L 100.0100, L500.4050 ####[facility] [address] [place], [address] GFR/1.73 sq M.predicted among non-blacks MDRD (S/P/Bld) [Vol rate/Area] 95 mL/min/{1.73_m2} Normal >60 [facility] Comment on above: Result Comment: Non- GFR Calc Performed By: #### L 100.0100, L500.4050 ####[facility] [address] [place], [address] Globulin (S) [Mass/Vol] 3.1 g/dL Normal 2.2-4.2 [facility] Comment on above: Performed By: #### L 100.0100, L500.4050 ####[facility] [address] [place], [address] Glucose [Mass/Vol] 138 mg/dL High 74-106 [facility] Comment on above: Result Comment: Fast ing Glucose result greater than or equal to 126 mg/dLsuggests DIABETES MELLITUS per A.D.A. criteria. Performed By: #### L 100.0100, L500.4050 ####[facility] [address] [place], [address] Potassium [Moles/Vol] 3.6 mmol/L Normal 3.5-5.1 [facility] Comment on above: Performed By: #### L 100.0100, L500.4050 ####[facility] [address] [place], [address] Sodium [Moles/Vol] 133 mmol/L Low 136-145 [facility] Comment on above: Performed By: #### L 100.0100, L500.4050 ####[facility] [address] [place], [address] T PROT 6.3 g/dL Low 6.4-8.2 [facility] Comment on above: Performed By: #### L 100.0100, L500.4050 ####[facility] [address] [place], [address] Urea nitrogen [Mass/Vol] 15 mg/dL Normal 7-18 [facility] Comment on above: Performed By: #### L 100.0100, L500.4050 ####[facility] [address] [place], [address] Determination of fraction of inspired oxygenOrdered By: Shiv Andrews on 10-30-2024 Blood Gas Oxygen Percent 21.0 [facility] Determination of fraction of inspired oxygen 21.0 [facility] Emergency Department Summary on 10-30-2024 Emergency Department Summary Normal [facility] Epithelial cells.squamous LM Ql (Urine sed)Ordered By: She Tejada on 10-30-2024 Epithelial cells.squamous LM.HPF (Urine sed) [#/Area] 0 /[HPF] 5-10 [facility] Erythrocyte Sed Rateon 10-30 SED RATE 8 mm/hr Normal 0-30 [facility] Comment on above: Performed By: #### L 501.6710, L101.9900 ####[facility] [address] [place], [address] Folic acid measurementOrdere d By: Zachary Fletcher on 10-30-2024 Folate 13.90 ng/mL 3.1-55.4 [facility] Folic acid measurement 13.90 ng/mL 3.1-55.4 [facility] Glucose Ql (U)Ordered By: Tono Tejada on 10-30-2024 Urine Glucose (UA) Normal mg/dl Normal [facility] H AND P Exam - Hospitaliston 10-30-2024 H&P Exam - Hospitalist Normal [facility] Ketones Test strip Ql (U)Ord ered By: She Tejada on 10-30-2024 Ketones Ql (U) Negative Negative [facility] Lactic acid measurementOrder ed By: Zachary Fletcher on 10-30-2024 Lactate [Moles/Vol] 1.0 mmol/L 0.4-2.0 [facility] Lactic acid measurement 1.0 mmol/L 0.4-2.0 [facility] Manual differential comment Rico (Bld) [Interp]Ordered By: She Tejada on 10-30-2024 Differential Comment SCANNED [facility] Comment on above: MONOVCYTOSIS NOTED Blood manual differential comment interpretation (narrative result) SCANNED [facility] Measurement, pHOrdered By: Esvin Andrews on 10-30-2024 pH (Unsp spec) 7.48 [pH] High 7.35-7.45 [facility] Methadone, urineOrdered By: Zachary Fletcher on 10-30-2024 Urine Methadone Screen Negative < 300 ng/mL [facility] Microorganism identified Cx Nom (Unsp spec)Ordered By: Zachary Fletcher on 10-30-2024 Bacteria Detection (PCR) Strep not Strep pneumo Abnormal [facility] Organism identification Strep not Strep pneumo Abnormal [facility] Microscopic analysis of urin e for red blood cells (RBC)Ordered By: She Tejada on 10-30-2024 Urine RBC 0-5 SEEN /hpf 0-5 [facility] Microscopic analysis of urine for red blood cells (RBC) 0-5 SEEN /hpf 0-5 [facility] Mucus LM Ql (Urine sed)Order ed By: She Tejada on 10-30-2024 Mucus Ql (Urine sed) 0 SEEN /hpf [facility] Nitrite Test strip Ql (U)Ord ered By: She Tejada on 10-30-2024 Nitrite Ql (U) Negative Negative [facility] No Panel InformationOrdered By: Shiv Andrews on 10-30-2024 Blood Gas Sample Site R [facility] Blood Gas Specimen Type ART [facility] Blood Gas Vent Mode Not entered [facility] Oxygen Delivery Device Not entered [facility] ART [facility] R [facility] Not entered [facility] No Panel InformationOrdered By: Zachary Fletcher on 10-30-2024 Urine Drug Screen Comment [facility] Comment on above: CONFIRMATORY TESTING FOR ALL POSITIVE URINE DRUG SCREENRESULTS WILL ONLY BE SENT OUT UPON PHYSICIAN ORDER. VISTA Urine Drug Screen methods provide only preliminaryanalytical test results. A more specific alternate chemicalmethod must be used in order to obtain a confirmedanalytical result. Gas chromatography/mass spectrometery(GC/MS) is the preferred confirmatory method. Clinicalconsideration and professional judgement should be appliedto any drug of abuse test result, particularly whenpreliminary positive results are used. URINE TCA TESTING MUST BE ORDERED SEPARATELY. USE TESTMNEMONIC: [facility] Organism identificationOrder ed By: Zachary Fletcher on 10-30-2024 Microorganism identified Cx Nom (Unsp spec) Strep not Strep pneumo Abnormal [facility] Oxygen saturation measuremen tOrdered By: Shiv Andrews on 10-30-2024 Blood Gas Oxygen Saturation 100 % High 95-99 [facility] Oxygen saturation measurement 100 % High 95-99 [facility] Partial pressure of carbon d ioxide measurementOrdered By: Shiv Andrews on 10-30-2024 Arterial Blood Partial Pressure CO2 25.8 mmHg Low 35-45 [facility] Partial pressure of carbon dioxide measurement 25.8 mmHg Low 35-45 [facility] Partial pressure of oxygen m easurementOrdered By: Shiv Andrews on 10-30-2024 Arterial Blood Partial Pressure O2 149 mmHG High 75-100 [facility] Partial pressure of oxygen measurement 149 mmHG High 75-100 [facility] Pathologist review Rico (Unsp spec) [Interp]Ordered By: She Tejada on 10-30-2024 Differential Pathologist's Review Reviewed [facility] Comment on above: Previous reported re sult: Swapna patel Edited by: BRAD on 11/02/24:1404Neutrophilic leukocytosis.Clinical correlation necessary.Uvaldo Cyr M.D. 11/02/24 AMENDED REPORT 11/02/24 1404 PATH REV previously reported as: Swapna patel Review by pathologist Reviewed [facility] Protein Test strip Ql (U)Ord ered By: She Tejada on 10-30-2024 Protein Ql (U) 15 mg/dl High Negative [facility] Urine protein assay by test strip, semi-quantitative 15 mg/dl High Negative [facility] Quantitative urine opiates m easurementOrdered By: Zachary Fletcher on 10-30-2024 Opiates Ql (U) Negative < 300 ng/mL [facility] Respiratory pathogens DNA an d RNA panel TYLER+probe (Resp)Ordered By: Zachary Fletcher on 10-30-2024 Respiratory Panel (PCR) Parainfluenza 4 Abnormal [facility] Respiratory pathogens detection panel by molecular detection method Parainfluenza 4 Abnormal [facility] Respiratory pathogens detect ion panel by molecular detection methodOrdered By: Zachary Fletcher on 10-30-2024 Respiratory pathogens DNA and RNA panel TYLER+probe (Resp) Parainfluenza 4 Abnormal [facility] Review by pathologistOrdered By: She Tejada on 10-30-2024 Pathologist review Rico (Unsp spec) [Interp] Reviewed [facility] Serum or plasma thyroid stim ulating hormone (TSH) measurement (units/volume)Ordered By: Zachary Fletcher on 10-30-2024 TSH Qn 0.640 uIU/mL 0.358-3.74 0 [facility] Specific gravity (U) [Rel de nsity]Ordered By: She Tejada on 10-30-2024 Urine specific gravity measurement 1.010 1.002-1.03 0 [facility] Spine Lumbar (Routine)on Spine Lumbar (Routine) Normal [facility] Squamous epithelial cells de tection in urine sediment by light microscopyOrdered By: She Tejada on 10-30-2024 Epithelial cells.squamous LM Ql (Urine sed) 0 SEEN /hpf 5-10 [facility] TSH QnOrdered By: Zachary cunningham on 10-30-2024 Thyroid Stimulating Hormone (TSH) 0.640 uIU/mL 0.358-3.74 0 [facility] Serum or plasma thyroid stimulating hormone (TSH) measurement (units/volume) 0.640 uIU/mL 0.358-3.74 0 [facility] Total carbon dioxide measure mentOrdered By: Shiv Andrews on 10-30-2024 Blood Gas Total CO2 20 mmol/L [facility] CO2 [Moles/Vol] 20 mmol/L [facility] Total carbon dioxide measurement 20 mmol/L [facility] Total creatine kinase measur ementOrdered By: She Tejada on 10-30-2024 CK [Catalytic activity/Vol] 105 U/L 26-192 [facility] Total creatine kinase measurement 105 U/L 192 [facility] Troponin IOrdered By: Zachary Fletcher on 10-30-2024 Troponin I 17 pg/mL 3.0-54.0 [facility] Troponin I High Sensitivity 17 pg/mL 3.0-54.0 [facility] Comment on above: Please Note: New Padmaja t Units and Gender Specific Reference Ranges. For more information see Policy Stat Procedure Tuthill High Sensitivity Troponin (TNIH) and attachments. Troponin I 17 pg/mL 3.0-54.0 [facility] Urinalysis, Completeon 10-30 RBC 0-5 SEEN Normal 0-5 [facility] Comment on above: Order Comment: COLLE CTOR TO SPECIFY Performed By: #### L 400.0001 ####[facility] [address] [place], [address] BACTERIA 0 SEEN Normal None Seen [facility] Comment on above: Order Comment: JO CTOR TO SPECIFY Performed By: #### L 400.0001 ####[facility] [address] [place], [address] EPI,SQUAMOUS 0 SEEN Normal 5-10 [facility] Comment on above: Order Comment: JO CTOR TO SPECIFY Performed By: #### L 400.0001 ####[facility] [address] [place], [address] Mucus Ql (Urine sed) 0 SEEN Normal [facility] Comment on above: Order Comment: JO CTOR TO SPECIFY Performed By: #### L 400.0001 ####[facility] [address] [place], [address] WBC 0 SEEN Normal 0-5 [facility] Comment on above: Order Comment: JO CTOR TO SPECIFY Performed By: #### L 400.0001 ####[facility] [address] [place], [address] Urine amphetamine measuremen tOrdered By: Zachary Fletcher on 10-30-2024 Amphetamines Ql (U) Negative <1000 ng/mL [facility] Urine amphetamine measurement Negative < 50 ng/mL [facility] Urine barbiturates measureme ntOrdered By: Zachary Fletcher on 10-30-2024 Urine Barbiturates Screen Negative < 200 ng/mL [facility] Urine benzodiazepine levelOr dered By: Zachary Fletcher on 10-30-2024 Benzodiazepines Ql (U) Negative < 200 ng/mL [facility] Urine blood detectionOrdered By: She Tejada on 10-30-2024 Urine Occult Blood 10 /ul High Negative [facility] Urine blood detection 10 /ul High Negative [facility] Urine clarityOrdered By: Rosanna Tejada on 10-30-2024 Clarity (U) Clear Clear [facility] Urine cocaine levelOrdered B y: Zachary Fletcher on 10-30-2024 Cocaine Ql (U) Negative < 300 ng/mL [facility] Urine color determinationOrd ered By: She Tejada on 10-30-2024 Color (U) Yellow Yellow [facility] Urine wllnr-5-iwitayqpivfxdc abinol (THC) measurementOrdered By: Zachary Fletcher on 10-30-2024 Cannabinoids Screen Ql (U) Negative < 50 ng/m L [facility] Urine glucose detectionOrder ed By: She Tejada on 10-30-2024 Glucose Ql (U) Normal mg/dl Normal [facility] Urine glucose detection Normal mg/dl Normal [facility] Urine leukocyte esterase det ection by dipstickOrdered By: She Tejada on 10-30-2024 Leukocyte esterase Test strip Ql (U) Negative Negative [facility] Urine methylenedioxymethamph etamine (MDMA) measurementOrdered By: Zachary Fletcher on 10-30-2024 MDMA (Ecstasy) Screen Negative < 500 ng/mL [facility] Urine pHOrdered By: She britt on 10-30-2024 pH (U) 7.0 [pH] 5.0 - 8.0 [facility] Urine phencyclidine (PCP) de tectionOrdered By: Zachary Fletcher on 10-30-2024 Phencyclidine Ql (U) Negative < 25 ng/mL [facility] Urine sediment bacteria coun t by microscopy (number/high power field)Ordered By: She Tejada on 10-30-2024 Bacteria LM.HPF (Urine sed) [#/Area] 0 /[HPF] None Seen [facility] Urine specific gravity measu rementOrdered By: She Tejada on 10-30-2024 Specific gravity (U) [Rel density] 1.010 1.002-1.03 0 [facility] Urine total bilirubin detect ion by test stripOrdered By: She Tejada on 10-30-2024 Urine total bilirubin detection by test strip Negative Negative [facility] Urine urobilinogen measureme ntOrdered By: She Tejada on 10-30-2024 Urobilinogen Ql (U) Normal mg/dl Normal [facility] Urobilinogen Ql (U)Ordered B y: She Tejada on 10-30-2024 Urine Urobilinogen Normal mg/dl Normal [facility] Vitamin B12 measurementOrder ed By: Zachary Fletcher on 10-30-2024 Cobalamin (Vitamin B12) [Mass/Vol] 377 pg/mL [facility] Vitamin B12 measurement 377 pg/mL [facility] White blood cell countOrdere d By: She Tejada on 10-30-2024 Urine WBC 0 SEEN /hpf 0-5 [facility] White blood cell count 0 SEEN /hpf 0-5 [facility] White blood cell count 0 SEEN /hpf [facility] pH (U)Ordered By: She stout on 10-30-2024 Urine pH 7.0 5.0 - 8.0 [facility] pH (Unsp spec)Ordered By: Gm Andrews on 10-30-2024 Blood Gas pH 7.48 High 7.35-7.45 [facility] Measurement, pH 7.48 High 7.35-7.45 [facility] 12 Lead EKG performed by BMS on 09-25-2024 12 Lead EKG performed by [facility]MS Normal [facility] ALP [Catalytic activity/Vol] Ordered By: Jenaor Cotto on 09-25-2024 Serum or plasma alkaline phosphatase measurement 75 U/L 45-117 [facility] ALT [Catalytic activity/Vol] Ordered By: Jenaro Cotto on 09-25-2024 Serum or plasma alanine aminotransferase (ALT) measurement 21 U/L 13-56 [facility] Absolute neutrophil countOrd ered By: Jenaro Cotto on 09-25-2024 Neutrophils (Bld) [#/Vol] 4.6 10*3/uL 2.0-7.7 [facility] Absolute neutrophil count 4.6 X10^3/uL 2.0-7.7 [facility] Albumin [Mass/Vol]Ordered By : Jenaro Cotto on 09-25-2024 Serum or plasma albumin measurement (mass/volume) 3.7 g/dL 3.2-5.0 [facility] Albumin to globulin ratioOrd ered By: Jenaro Cotto on 09-25-2024 Albumin/Globulin [Mass ratio] 1.1 {ratio} 0.9-2.4 [facility] Albumin to globulin ratio 1.1 RATIO 0.9-2.4 [facility] Basophil percentageOrdered B y: Jenaro Cotto on 09-25-2024 Basophils/100 WBC (Bld) 0.9 % 0-1 [facility] Basophil percentage 0.9 % 0-1 [facility] Bilirubin, totalOrdered By: Jenaro Cotto on 09-25-2024 Bilirubin [Mass/Vol] 0.50 mg/dL 0.20-1.00 [facility] Comment on above: For patients on eltr ombopag therapy, use of Dimension T[place]ill TBIL is not recommended. Bilirubin, total 0.50 mg/dL 0.20-1.00 [facility] Blood urea nitrogen (BUN)/cr eatinine ratioOrdered By: Jenaro Yadiel on 09-25-2024 Urea nitrogen/Creatinine [Mass ratio] 19.2 mg/mg 07-19 [facility] Blood urea nitrogen (BUN)/creatinine ratio 19.2 RATIO 07-19 [facility] CBC W/Diff, Automatedon 08-31 Absolute Lymph 1.85 X10 3/uL Normal 0.83-4.51 [facility] Comment on above: Performed By: #### L 100.0100, L500.4050, L501.5200, L501.9520, L506.0400 ####[facility] [address] [place], [address] Absolute Neut 4.6 X10 3/uL Normal 2.0-7.7 [facility] Comment on above: Performed By: #### L 100.0100, L500.4050, L501.5200, L501.9520, L506.0400 ####[facility] [address] [place], [address] Basophils/100 WBC (Bld) 0.9 % Normal 0-1 [facility] Comment on above: Performed By: #### L 100.0100, L500.4050, L501.5200, L501.9520, L506.0400 ####[facility] [address] [place], [address] Eosinophils/100 WBC (Bld) 0.3 % Normal 0-5 [facility] Comment on above: Performed By: #### L 100.0100, L500.4050, L501.5200, L501.9520, L506.0400 ####[facility] [address] [place], [address] Erythrocyte distribution width (RBC) [Ratio] 13.6 % Normal 11.6-14.6 [facility] Comment on above: Performed By: #### L 100.0100, L500.4050, L501.5200, L501.9520, L506.0400 ####[facility] [address] [place], [address] Hematocrit (Bld) [Volume fraction] 41.7 % Normal 37-47 [facility] Comment on above: Performed By: #### L 100.0100, L500.4050, L501.5200, L501.9520, L506.0400 ####[facility] [address] [place], [address] Hemoglobin (Bld) [Mass/Vol] 13.5 g/dL Normal 12.0-15. 0 [facility] Comment on above: Performed By: #### L 100.0100, L500.4050, L501.5200, L501.9520, L506.0400 ####[facility] [address] [place], [address] IG% 0.300 Normal 0.0-0.9 [facility] Comment on above: Result Comment: IG% - Immature Granulocytes (promyelocytes, myelocytes andmetamyelocytes) > 1% indicates that a LEFT SHIFT is Present. Performed By: #### L 100.0100, L500.4050, L501.5200, L501.9520, L506.0400 ####[facility] [address] [place], [address] Lymphocytes/100 WBC (Bld) 26.6 % Normal 19-41 [facility] Comment on above: Performed By: #### L 100.0100, L500.4050, L501.5200, L501.9520, L506.0400 ####[facility] [address] [place], [address] MCH (RBC) [Entitic mass] 30.3 pg Normal 27.0-32.0 [facility] Comment on above: Performed By: #### L 100.0100, L500.4050, L501.5200, L501.9520, L506.0400 ####[facility] [address] [place], [address] MCHC (RBC) [Mass/Vol] 32.4 g/dL Normal 32-36 [facility] Comment on above: Performed By: #### L 100.0100, L500.4050, L501.5200, L501.9520, L506.0400 ####[facility] [address] [place], [address] MCV (RBC) [Entitic vol] 93.7 fL Normal 81-99 [facility] Comment on above: Performed By: #### L 100.0100, L500.4050, L501.5200, L501.9520, L506.0400 ####[facility] [address] [place], [address] Monocytes/100 WBC (Bld) 6.6 % Normal 0-10 [facility] Comment on above: Performed By: #### L 100.0100, L500.4050, L501.5200, L501.9520, L506.0400 ####[facility] [address] [place], [address] Neutrophils/100 WBC (Bld) 65.3 % Normal 47-70 [facility] Comment on above: Performed By: #### L 100.0100, L500.4050, L501.5200, L501.9520, L506.0400 ####[facility] [address] [place], [address] Nucleated RBC (Bld) [#/Vol] 0 10*3/uL Normal 0-5 [facility] Comment on above: Performed By: #### L 100.0100, L500.4050, L501.5200, L501.9520, L506.0400 ####[facility] [address] [place], [address] Platelet mean volume (Bld) [Entitic vol] 10.8 fL Normal 6.2-12.0 [facility] Comment on above: Performed By: #### L 100.0100, L500.4050, L501.5200, L501.9520, L506.0400 ####[facility] [address] [place], [address] Platelets (Bld) [#/Vol] 236 10*3/uL Normal 150-450 [facility] Comment on above: Performed By: #### L 100.0100, L500.4050, L501.5200, L501.9520, L506.0400 ####[facility] [address] [place], [address] RBC (Bld) [#/Vol] 4.45 10*6/uL Normal 4.2-5.4 [facility] Comment on above: Performed By: #### L 100.0100, L500.4050, L501.5200, L501.9520, L506.0400 ####[facility] [address] [place], [address] RDW SD 46.6 fl High 35.1-43.9 [facility] Comment on above: Performed By: #### L 100.0100, L500.4050, L501.5200, L501.9520, L506.0400 ####[facility] [address] [place], [address] WBC (Bld) [#/Vol] 7.0 10*3/uL Normal 4.4-11.0 [facility] Comment on above: Performed By: #### L 100.0100, L500.4050, L501.5200, L501.9520, L506.0400 ####[facility] [address] [place], [address] Calcium [Mass/Vol]Ordered By : Jenaro Cotto on 09-25-2024 Serum or plasma calcium measurement (mass/volume) 8.7 mg/dL 8.5-10.1 [facility] Carbon dioxide measurementOr dered By: Jenaro Cotto on 09-25-2024 CO2 [Moles/Vol] 26.0 mmol/L 21.0-32.0 [facility] Carbon dioxide measurement 26.0 mmol/L 21.0-32. 0 [facility] Cardiology Visit Reporton Cardiology Visit Report Normal [facility] Chloride measurementOrdered By: Jenaro Cotto on 09-25-2024 Chloride [Moles/Vol] 107 mmol/L 98-107 [facility] Chloride measurement 107 mmol/L 98-107 [facility] Comprehensive Metabolic Prof ilon 09-25-2024 Albumin [Mass/Vol] 3.7 g/dL Normal 3.2-5.0 [facility] Comment on above: Performed By: #### L 100.0100, L500.4050, L501.5200, L501.9520, L506.0400 ####[facility] [address] [place], [address] Albumin/Globulin [Mass ratio] 1.1 {ratio} Normal 0.9-2.4 [facility] Comment on above: Performed By: #### L 100.0100, L500.4050, L501.5200, L501.9520, L506.0400 ####[facility] [address] [place], [address] ALK P 75 U/L Normal 45-117 [facility] Comment on above: Performed By: #### L 100.0100, L500.4050, L501.5200, L501.9520, L506.0400 ####[facility] [address] [place], [address] ALT [Catalytic activity/Vol] 21 U/L Normal 13-56 [facility] Comment on above: Performed By: #### L 100.0100, L500.4050, L501.5200, L501.9520, L506.0400 ####[facility] [address] [place], [address] AST [Catalytic activity/Vol] 16 U/L Normal 15-37 [facility] Comment on above: Performed By: #### L 100.0100, L500.4050, L501.5200, L501.9520, L506.0400 ####[facility] [address] [place], [address] Bilirubin [Mass/Vol] 0.50 mg/dL Normal 0.20-1.00 [facility] Comment on above: Result Comment: For patients on eltrombopag therapy, use of Dimension Tuthill TBIL is not recommended. Performed By: #### L 100.0100, L500.4050, L501.5200, L501.9520, L506.0400 ####[facility] [address] [place], [address] BUN/CRE 19.2 RATIO Normal 10-20 [facility] Comment on above: Performed By: #### L 100.0100, L500.4050, L501.5200, L501.9520, L506.0400 ####[facility] [address] [place], [address] CA,Total 8.7 mg/dL Normal 8.5-10.1 [facility] Comment on above: Performed By: #### L 100.0100, L500.4050, L501.5200, L501.9520, L506.0400 ####[facility] [address] [place], [address] Chloride [Moles/Vol] 107 mmol/L Normal 98-107 [facility] Comment on above: Performed By: #### L 100.0100, L500.4050, L501.5200, L501.9520, L506.0400 ####[facility] [address] [place], [address] CO2 [Moles/Vol] 26.0 mmol/L Normal 21.0-32.0 [facility] Comment on above: Performed By: #### L 100.0100, L500.4050, L501.5200, L501.9520, L506.0400 ####[facility] [address] [place], [address] Creatinine [Mass/Vol] 0.78 mg/dL Normal 0.55-1.02 [facility] Comment on above: Result Comment: The validity of the calculated GFR GFRAA in patients over70 years has not been determined. Clinical correlation isessential. Performed By: #### L 100.0100, L500.4050, L501.5200, L501.9520, L506.0400 ####[facility] [address] [place], [address] EST GFR - AA 92 mL/min Normal >60 [facility] Comment on above: Result Comment: Afri can Surinamese GFR Calc Performed By: #### L 100.0100, L500.4050, L501.5200, L501.9520, L506.0400 ####[facility] [address] [place], [address] GAP 5 Normal 5-15 [facility] Comment on above: Performed By: #### L 100.0100, L500.4050, L501.5200, L501.9520, L506.0400 ####[facility] [address] [place], [address] GFR/1.73 sq M.predicted among non-blacks MDRD (S/P/Bld) [Vol rate/Area] 76 mL/min/{1.73_m2} Normal >60 [facility] Comment on above: Result Comment: Non- GFR Calc Performed By: #### L 100.0100, L500.4050, L501.5200, L501.9520, L506.0400 ####[facility] [address] [place], [address] Globulin (S) [Mass/Vol] 3.3 g/dL Normal 2.2-4.2 [facility] Comment on above: Performed By: #### L 100.0100, L500.4050, L501.5200, L501.9520, L506.0400 ####[facility] [address] [place], [address] Glucose [Mass/Vol] 105 mg/dL Normal 74-106 [facility] Comment on above: Result Comment: Fast ing Glucose result from 100 to 125 mg/dLsuggests IMPAIRED HOMEOSTASIS per A.D.A. criteria. Performed By: #### L 100.0100, L500.4050, L501.5200, L501.9520, L506.0400 ####[facility] [address] [place], [address] Potassium [Moles/Vol] 4.0 mmol/L Normal 3.5-5.1 [facility] Comment on above: Performed By: #### L 100.0100, L500.4050, L501.5200, L501.9520, L506.0400 ####[facility] [address] [place], [address] Sodium [Moles/Vol] 139 mmol/L Normal 136-145 [facility] Comment on above: Performed By: #### L 100.0100, L500.4050, L501.5200, L501.9520, L506.0400 ####[facility] [address] [place], [address] T PROT 7.0 g/dL Normal 6.4-8.2 [facility] Comment on above: Performed By: #### L 100.0100, L500.4050, L501.5200, L501.9520, L506.0400 ####[facility] [address] [place], [address] Urea nitrogen [Mass/Vol] 15 mg/dL Normal 7-18 [facility] Comment on above: Performed By: #### L 100.0100, L500.4050, L501.5200, L501.9520, L506.0400 ####[facility] [address] [place], [address] Creatinine [Mass/Vol]Ordered By: Jenaro Cotto on 09-25-2024 Serum or plasma creatinine measurement (mass/volume) 0.78 mg/dL 0.55-1.02 [facility] Direct serum free thyroxine (FT4) measurementOrdered By: Jenaro Cotto on 09-25-2024 Free T4 [Mass/Vol] 1.14 ng/dL 0.76-1.46 [facility] Direct serum free thyroxine (FT4) measurement 1.14 ng/dL 0.76-1.46 [facility] Eosinophil percentageOrdered By: Jenaro Cotto on 09-25-2024 Eosinophils/100 WBC (Bld) 0.3 % 0-5 [facility] Eosinophil percentage 0.3 % 0-5 [facility] Erythrocyte distribution wid th (RBC) [Entitic vol]Ordered By: Jenaro Cotto on 09-25-2024 Erythrocyte distribution width standard deviation 46.6 fl High 35.1-43.9 [facility] Erythrocyte distribution wid th (RBC) [Ratio]Ordered By: Jenaro Cotto on 09-25-2024 Erythrocyte distribution width ratio 13.6 % 11.6-14.6 [facility] Erythrocyte distribution wid th ratioOrdered By: Jenaro Cotto on 09-25-2024 Erythrocyte distribution width (RBC) [Ratio] 13.6 % 11.6-14.6 [facility] Erythrocyte distribution wid th standard deviationOrdered By: Jenaro Cotto on 09-25-2024 Erythrocyte distribution width (RBC) [Entitic vol] 46.6 fL High 35.1-43.9 [facility] Estimated glomerular filtrat ion rate (GFR) AmericanOrdered By: Jenaro Cotto on 09-25-2024 Estimated GFR (MDRD) Amer 92 mL/min >60 [facility] Comment on above: GFR Calc Estimated glomerular filtration rate (GFR) 92 mL/min >60 [facility] Glomerular filtration rate ( GFR) estimationOrdered By: Jenaro Cotto on 09-25-2024 Estimated GFR (MDRD) Non-Af Amer 76 mL/min >60 [facility] Comment on above: Non- GFR Calc Glomerular filtration rate (GFR) estimation 76 mL/min >60 [facility] Glucose measurementOrdered B y: Jenaro Cotto on 09-25-2024 Glucose [Mass/Vol] 105 mg/dL 74-106 [facility] Comment on above: Fasting Glucose resu lt from 100 to 125 mg/dL suggests IMPAIRED HOMEOSTASIS per A.D.A. criteria. Glucose measurement 105 mg/dL 74-106 [facility] Hematocrit Auto (Bld) [Volum e fraction]Ordered By: Jenaro Cotto on 09-25-2024 Hematocrit (Bld) [Volume fraction] 41.7 % 37-47 [facility] Automated blood hematocrit (percentage) 41.7 % 37-47 [facility] Hemoglobin measurementOrdere d By: Jenaro Cotto on 09-25-2024 Hemoglobin (Bld) [Mass/Vol] 13.5 g/dL 12.0-15. 0 [facility] Hemoglobin measurement 13.5 g/dL 12.0-15.0 [facility] Immature granulocytes/100 WB C Auto (Bld)Ordered By: Jenaro Cotto on 09-25-2024 Immature granulocytes/100 WBC (Bld) 0.300 % 0.0-0.9 [facility] Comment on above: IG% - Immature Granu locytes (promyelocytes, myelocytes and metamyelocytes) > 1% indicates that a LEFT SHIFT is Present. Automated immature granulocyte percentage 0.300 % 0.0-0.9 [facility] Laboratory - Chemistry and C hemistry - challengeOrdered By: Jenaro Cotto on 09-25-2024 AST [Catalytic activity/Vol] 16 U/L 15-37 [facility] Lymphocytes Auto (Unsp spec) [#/Vol]Ordered By: Jenaro Cotto on 09-25-2024 Lymphocytes (Bld) [#/Vol] 1.85 10*3/uL 0.83-4.5 1 [facility] Absolute lymphocyte count 1.85 X10^3/uL 0.83-4. 51 [facility] Lymphocytes/100 WBC Auto (Un sp spec)Ordered By: Jenaro Cotto on 09-25-2024 Lymphocytes/100 WBC (Bld) 26.6 % [facility] Automated lymphocyte count as percentage of total leukocytes 26.6 % [facility] MCV (RBC) [Entitic vol]Order ed By: Jenaro Cotto on 09-25-2024 MCV (mean corpuscular volume) determination 93.7 fL 81-99 [facility] MCV (mean corpuscular volume ) determinationOrdered By: Jenaro Cotto on 09-25-2024 MCV (RBC) [Entitic vol] 93.7 fL 81-99 [facility] Magnesiumon 09-25-2024 Magnesium [Mass/Vol] 2.3 mg/dL Normal 1.6-2.6 [facility] Comment on above: Performed By: #### L 100.0100, L500.4050, L501.5200, L501.9520, L506.0400 ####[facility] [address] [place], [address] Magnesium measurementOrdered By: Jenaro Cotto on 09-25-2024 Magnesium [Mass/Vol] 2.3 mg/dL 1.6-2.6 [facility] Magnesium measurement 2.3 mg/dL 1.6-2.6 [facility] Mean corpuscular hemoglobin (MCH) determinationOrdered By: Jenaro Cotto on 09-25-2024 MCH (RBC) [Entitic mass] 30.3 pg 27.0-32.0 [facility] Mean corpuscular hemoglobin (MCH) determination 30.3 pg 27.0-32.0 [facility] Mean corpuscular hemoglobin concentration (MCHC) determinationOrdered By: Jenaro Cotto on 09-25-2024 MCHC (RBC) [Mass/Vol] 32.4 g/dL 32-36 [facility] Mean corpuscular hemoglobin concentration (MCHC) determination 32.4 g/dL -36 [facility] Mean platelet volume determi nationOrdered By: Jenaro Cotto on 09-25-2024 Platelet mean volume (Bld) [Entitic vol] 10.8 fL 6.2-12.0 [facility] Mean platelet volume determination 10.8 fl 6.2-12.0 [facility] Monocyte percentageOrdered B y: Jenaro Cotto on 09-25-2024 Monocytes/100 WBC (Bld) 6.6 % 0-10 [facility] Monocyte percentage 6.6 % 0-10 [facility] Neutrophil percentageOrdered By: Jenaro Cotto on 09-25-2024 Neutrophils/100 WBC (Bld) 65.3 % 47-70 [facility] Neutrophil percentage 65.3 % 47-70 [facility] No Panel InformationOrdered By: Jenaro Cotto on 09-25-2024 16 U/L 15-37 [facility] Nucleated red blood cell per centageOrdered By: Jenaro Cotto on 09-25-2024 Nucleated RBC/100 WBC (Bld) [Ratio] 0 % 0-5 [facility] Nucleated red blood cell percentage 0 % 0-5 [facility] Platelet countOrdered By: Liya Cotto on 09-25-2024 Platelets (Bld) [#/Vol] 236 10*3/uL 150-450 [facility] Platelet count 236 K/mm3 150-450 [facility] Potassium measurementOrdered By: Jenaro Cotto on 09-25-2024 Potassium [Moles/Vol] 4.0 mmol/L 3.5-5.1 [facility] Potassium measurement 4.0 mmol/L 3.5-5.1 [facility] RBC Auto (Bld) [#/Vol]Ordere d By: Jenaro Cotto on 09-25-2024 RBC (Bld) [#/Vol] 4.45 10*6/uL 4.2-5.4 [facility] Automated blood erythrocyte count 4.45 M/mm3 4.2-5.4 [facility] Serum anion gap measurementO rdered By: Jenaro Cotto on 09-25-2024 Anion gap [Moles/Vol] 5 mmol/L 5-15 [facility] Serum anion gap measurement 5 5-15 [facility] Serum globulin measurementOr dered By: Jenaro Cotto on 09-25-2024 Globulin (S) [Mass/Vol] 3.3 g/dL 2.2-4.2 [facility] Serum globulin measurement 3.3 g/dL 2.2-4.2 [facility] Serum or plasma alanine phillips otransferase (ALT) measurementOrdered By: Jenaro Cotto on 09-25-2024 ALT [Catalytic activity/Vol] 21 U/L 13-56 [facility] Serum or plasma albumin abhinav urement (mass/volume)Ordered By: Jenaro Cotto on 09-25-2024 Albumin [Mass/Vol] 3.7 g/dL 3.2-5.0 [facility] Serum or plasma alkaline jose sphatase measurementOrdered By: Jenaro Cotto on 09-25-2024 ALP [Catalytic activity/Vol] 75 U/L 45-117 [facility] Serum or plasma calcium abhinav urement (mass/volume)Ordered By: Jenaro Cotto on 09-25-2024 Calcium [Mass/Vol] 8.7 mg/dL 8.5-10.1 [facility] Serum or plasma creatinine m easurement (mass/volume)Ordered By: Jenaro Cotto on 09-25-2024 Creatinine [Mass/Vol] 0.78 mg/dL 0.55-1.02 [facility] Comment on above: The validity of the calculated GFR & GFRAA in patients over 70 years has not been determined. Clinical correlation is essential. Serum or plasma urea nitroge n measurement (mass/volume)Ordered By: Jenaro Cotto on 09-25-2024 Urea nitrogen [Mass/Vol] 15 mg/dL 7-18 [facility] Sodium levelOrdered By: Jenaro Cotto on 09-25-2024 Sodium [Moles/Vol] 139 mmol/L 136-145 [facility] Sodium level 139 mmol/L 136-145 [facility] T4 Free Directon 09-25-2024 T4 FREE DIRECT 1.14 ng/dL Normal 0.76-1.46 [facility] Comment on above: Performed By: #### L 100.0100, L500.4050, L501.5200, L501.9520, L506.0400 ####[facility] [address] [place], [place], [id number] TSH QnOrdered By: Jenaro Cotto on 09-25-2024 Thyroid Stimulating Hormone (TSH) 1.020 uIU/mL 0.358-3.74 0 [facility] Serum or plasma thyroid stimulating hormone (TSH) measurement (units/volume) 1.020 uIU/mL 0.358-3.74 0 [facility] Thyroid Stim Hormone (TSH)on 09-25-2024 TSH 1.020 uIU/mL Normal 0.358-3.74 0 [facility] Comment on above: Performed By: #### L 100.0100, L500.4050, L501.5200, L501.9520, L506.0400 ####[facility] [address] [place], [place], [id number] Total proteinOrdered By: Jaren Cotto on 09-25-2024 Protein [Mass/Vol] 7.0 g/dL 6.4-8.2 [facility] Total protein 7.0 g/dL 6.4-8.2 [facility] Urea nitrogen [Mass/Vol]Orde red By: Jenaro Cotto on 09-25-2024 Serum or plasma urea nitrogen measurement (mass/volume) 15 mg/dL 7-18 [facility] White blood cell (WBC) count Ordered By: Jenaro Cotto on 09-25-2024 WBC (Bld) [#/Vol] 7.0 10*3/uL 4.4-11.0 [facility] White blood cell (WBC) count 7.0 K/mm3 4.4-11.0 [facility] CNOVon 12-05-2023 CNOV Office Visit (UROLAE ) CASA BURTON ([id number]) 1945 F Date Time Provider Department 12/05/23 3:30 PM DARRIUS AGUILAR UROLAE During your visit today, we recorded the following information about you: Pulse Weight Height 81/minute 62.1 kg 1.702 m Darrius Aguilar MD 12/05/2023 4:11 PM Signed Good job today, your bladder looks perfect. Your CT scan looks reassuring as well. I will see you back in 1 year, virtually. Darrius Aguilar MD 12/05/2023 5:52 PM Signed CYSTOSCOPY PROCEDURE NOTE: Casa Burton is a 78 year old female who presents with follow up bladder tumorfor a cystoscopy. Pt ID verified with patient: Yes Procedure verified with patient: Yes Procedure confirmed with physician and vp software support: Yes Patient's Pre-op pain level: 0 UNIVERSAL PROTOCOL / SAFETY CHECKLIST Procedure to be Performed: Cystoscopy Sign In: A Moment of CARE was completed. Personnel directly involved with the procedure wore the appropriate PPE (Personal Protective Equipment). Patient/Surrogate Stated/Verified: PATIENT VERIFIED(optional for EMERGENT procedures): Patient name, Date of , Relevant allergies, and The intended procedure Time Out Communication: Intended patient and procedure match the source documents. Consent documented and matches the intended procedure. Sign Out: SIGN OUT (optional for EMERGENT procedures): No specimen collected. Darrius Aguilar MD A urinalysis was performed revealing no evidence of infection. The benefits, risks, alternatives of the cystoscopy procedure and personnel were discussed with the patient. The verbal consent was obtained and the patient agrees to proceed. Procedure: The patient was placed on the procedure table in the supine position and prepped and draped in the usual sterile fashion. 2% Lidocaine Jelly was placed per urethra as an anesthetic in the standard fashion. Once adequate local anesthesia was achieved, the tip of the Flexible cystoscope was carefully placed into the urethra under direct visual guidance. The scope was negotiated per urethra with no evidence of stricture into the bladder. Careful hogan endoscopy was carried out. The posterior, superior and lateral diaz and dome of the bladder were all well visualized. The findings were consistent with no evidence of bladder mucosal pathology. At the conclusion of the procedure, the Flexible cystoscope was removed atraumatically. The patient tolerated the procedure without complications. Patient was given standard post-procedure instructions, and was directed to complete the course of oral antibiotics and increase oral fluid intake as directed. Patient's Post-op pain level: 0 ASSESSMENT/PLAN: 1. Microscopic hematuria - ICD9: 599.72, ICD10: R31.29 (primary diagnosis) 2. History of bladder cancer - ICD9: V10.51, ICD10: Z85.[address] urogram. Cystoscopy today is unremarkable. Can follow-up with me for virtual visit in 1 year. Darrius Aguilar Please note: This note has been produced using speech recognition software and may contain errors related to that system including grammar, punctuation, spelling, gender and words and phrases that may be inappropriate. Referring Provider: SELF [200] Allergies As of Date: 12/05/2023 Noted Allergy Reaction AUGMENTIN (AMOXICILLIN-POT CLAVUL*11/21/2009 ERYTHROMYCIN 11/21/2009 SYMMETREL (AMANTADINE HCL) 11/21/2009 Date Reviewed: 12/05/2023 Reviewed by: Laura Gomez MA - Fully Assessed Reason for Visit: Cystoscopy-1 [303] Primary Visit Diagnosis:Microscopic hematuria [R31.29] Other Visit Diagnosis:History of bladder cancer [Z85.51] Order(s):[] ciprofloxacin HCl 500 mg tab(s) (CIPRO)Disp: Rfl: UA DIP, URINE (POC) [[id number]] Order #: [id number] #:[id number] Prescriptions as of 12/05/2023 - vitamin b complex tab Take 1 tablet by mouth once daily. - amLODIPine (NORVASC) 5 mg tablet Take 5 mg by mouth once daily. - GLUC BALTAZAR/CHONDRO BALTAZAR A/VIT C/MN (GLUCOSAMINE CHONDROITIN MAXSTR ORAL) Take 1 tablet by mouth once daily. - METOPROLOL SUCCINATE ORAL Take 50 mg by mouth once daily. - lisinopril (ZESTRIL, PRINIVIL) 10 mg tablet Take 20 mg by mouth once daily. - aspirin, enteric coated (ASPIRIN, ENTERIC COATED) 325 mg EC tablet Take 325 mg by mouth as needed. Take with food. - multivitamin tablet Take 1 tablet by mouth once daily. - Blood Pressure Cuff - Home Use BLOOD PRESSURE CUFF FOR HOME USE. DX: LABILE BLOOD PRESSURE - APPLE CIDER VINEGAR ORAL Take by mouth. - astaxanthin 4 mg ORAL Cap Take by mouth. - cholecalciferol, vitamin D3, 400 unit ORAL Cap Take 1,000 Units by mouth twice daily. 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 Normal [facility] UA DIP, URINE (POC)on 2023 BILIRUBIN UA (POCT) Negative Negative [facility] CLARITY UA (POCT) Clear [facility] COLOR UA (POCT) Yellow [facility] GLUCOSE UA (POCT) Negative Negative mg/dL [facility] Hemoglobin Ql (U) Small Abnormal Negative [facility] KETONE UA (POCT) Negative Negative mg/dL [facility] LEUKOCYTES UA (POCT) Negative Negative [facility] NITRITE UA (POCT) Negative Negative [facility] PH UA (POCT) 7.0 4.5 - 8.0 [facility] Protein Ql (U) Negative Negative mg/dL [facility] SPECIFIC GRAVITY UA (POCT) 1.020 1 .005 - 1.030 [facility] UROBILINOGEN UA (POCT) 0.2 E.U./dL Lindsay l E.U./dL [facility] CNPNon 11-28-2023 CNPN Telephone (UROLAE) CASA BURTON ([id number]) 1945 F Date Time Provider Department 11/28/23 DARRIUS AGUILAR During your visit today, we recorded the following information about you: Renita Ruiz RN 11/28/2023 3:11 PM Signed ----- Message from Darrius Aguilar MD sent at 11/27/2023 6:02 PM EST ----- Please inform patient that her CT scan looks great. No kidney tumors or stones. Still needs cystoscopy which I think is scheduled for November. Renita Ruiz RN 11/28/2023 3:12 PM Signed Left message on machine for a return call regarding the message below. KHANH Morin [place], CT 11/29/2023 8:31 AM Signed Phoned patient and notified of results as /per provider . Patient acknowledge understanding of instructions and has no further questions. ERWIN Vang Allergies As of Date: 11/28/2023 Noted Allergy Reaction AUGMENTIN (AMOXICILLIN-POT CLAVUL*11/21/2009 ERYTHROMYCIN 11/21/2009 SYMMETREL (AMANTADINE HCL) 11/21/2009 Date Reviewed: 11/27/2023 Reviewed by: Prabhakar Villalba, RT(R) - Fully Assessed Reason for Visit: Results [95] Prescriptions as of 11/29/2023 - vitamin b complex tab Take 1 tablet by mouth once daily. - amLODIPine (NORVASC) 5 mg tablet Take 5 mg by mouth once daily. - GLUC BALTAZAR/CHONDRO BALTAZAR A/VIT C/MN (GLUCOSAMINE CHONDROITIN MAXSTR ORAL) Take 1 tablet by mouth once daily. - METOPROLOL SUCCINATE ORAL Take 50 mg by mouth once daily. - lisinopril (ZESTRIL, PRINIVIL) 10 mg tablet Take 20 mg by mouth once daily. - aspirin, enteric coated (ASPIRIN, ENTERIC COATED) 325 mg EC tablet Take 1 tablet by mouth twice daily as needed. Take with food. - multivitamin tablet Take 1 tablet by mouth once daily. - Blood Pressure Cuff - Home Use BLOOD PRESSURE CUFF FOR HOME USE. DX: LABILE BLOOD PRESSURE - APPLE CIDER VINEGAR ORAL Take by mouth. - astaxanthin 4 mg ORAL Cap Take by mouth. - cholecalciferol, vitamin D3, 400 unit ORAL Cap Take 1,000 Units by mouth twice daily. 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 Personal history of malignant neoplasm of bladd*03/17/2010 Amblyopia [H53.009] 06/30/2014 Cerebral palsy (HCC) [G80.9] 06/30/2014 Well adult exam [Z00.00] 06/30/2014 Valvular heart disease [I38] 07/28/2014 Osteoporosis [M81.0] 08/17/2014 Chronic hip pain [M25.559, G89.29] 01/05/2015 Balance problems [R26.89] 01/05/2015 Encounter Status:Closed by ELIZABETH MENDOZA on 11/29/23 Normal [facility] CT Kidney WO and W contrast Rick 11-27-2023 [facility] CT UROGRAM WO/W IVCONon 11-01 CT UROGRAM WO/W IVCON * * *Final Report* * * DATE OF EXAM: Nov 27 2023 3:39PM [facility] 0560 - CT UROGRAM WO/W IVCON / PROCEDURE REASON: Microscopic hematuria * * * * Physician Interpretation * * * * EXAMINATION: CT ABDOMEN AND PELVIS WITHOUT AND WITH IV CONTRAST, INCLUDING EXCRETORY PHASE IMAGING (CT UROGRAM) 3D RECONSTRUCTIONS CLINICAL HISTORY: 78 years old Female with Hematuria, microscopic, increased risk for urinary tract malignancy. TECHNIQUE: CT urogram protocol including unenhanced, renal parenchymal phase and excretory phase renal imaging was obtained following IV contrast. Normal saline was also administered IV. No oral contrast was given. 3D image post-processing was performed and archived at the request of the referring physician, on the CT scanner workstation without concurrent physician supervision. MQ: CTU_2 Contrast: IV: 125 ml of Omnipaque 300 IV Saline: 100 ml of 0.9% NACL Solution Oral Contrast: None CT Radiation dose: Integrated dose-length product (DLP) for this visit = 1067 mGy*cm. CT Dose Reduction Employed: Automated exposure control(AEC) and iterative recon COMPARISON: CT abdomen pelvis 11/24/2009 RESULT: Kidneys and urinary tract: Right: No calculus or solid renal mass. The opacified calices, renal pelvis and ureter are normal without dilation, filling defect, or stricture. Left: No calculus or solid renal mass. Small parapelvic cysts. The opacified calices, renal pelvis and ureter are normal without dilation, filling defect, or stricture. Bladder: No filling defect, calculus, focal or diffuse wall thickening. Abdomen and Pelvis: Liver: No mass. Biliary: No bile duct dilation. No calcified stones or gallbladder dilation. Spleen: No mass. No splenomegaly. Pancreas: No mass or duct dilation. Adrenals: No mass. GI tract: No dilation or wall thickening. Small hiatal hernia. Normal appendix. Lymph nodes: No abdominal or pelvic lymphadenopathy. Mesentery/Peritoneum: No ascites or mass. Retroperitoneum: No mass. Vasculature: - Abdominal aorta and iliac arteries: Atherosclerotic calcifications without aneurysm. - Celiac and SMA: Patent without stenosis. - Portal venous system (SMV, splenic vein, portal vein and branches): Patent. - Hepatic veins: Patent. Pelvis: No mass, ascites or fluid collection. Hysterectomy. Bones and Soft Tissues: Remote healed LEFT femoral neck fracture post-ORIF. 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 Moderate LEFT hip osteoarthritis. Marked osteopenia/osteoporosi s. Transitional S1 vertebral body. Grade 1 anterolisthesis of L5 on S1. Moderate-severe multilevel degenerative disc disease in the lumbar spine and severe lower lumbar degenerative facet arthropathy. Lower thorax: Minimal subsegmental atelectasis. No consolidation. No pleural effusion. Water Treatment Plant Engineer (topogram) images: No additional findings. IMPRESSION: No urinary tract calculus, solid renal mass or upper urothelial tract lesion. Telephone Recorder: [facility] Transcribe Date/Time: Nov 27 2023 5:10P Dictated by : JESSICA JOSHI DO This examination was interpreted and the report reviewed and electronically signed by: JESSICA JOSHI DO on Nov 27 2023 5:28PM EST [id number] Normal [facility] Basophil percentageOrdered B y: Stephanie Jay on 11-06-2023 Chloride [Moles/Vol] 107 mmol/L 98-107 [place] [facility] Glucose [Mass/Vol] 103 mg/dL 74-106 [place] [facility] Comment on above: Fasting Glucose resu lt from 100 to 125 mg/dL suggests IMPAIRED HOMEOSTASIS per A.D.A. criteria. Potassium [Moles/Vol] 3.9 mmol/L 3.5-5.1 [facility] Sodium [Moles/Vol] 138 mmol/L 136-145 [facility] Laboratory - Chemistry and C hemistry - challengeOrdered By: Stephanie Jay on 11-06-2023 CO2 [Moles/Vol] 28.0 mmol/L 21.0-32.0 [facility] Urea nitrogen/Creatinine [Mass ratio] 22.8 mg/mg 10-20 [facility] No Panel InformationOrdered By: Stephanie Jay on 11-06-2023 Estimated GFR (MDRD) Amer 91 mL/min >60 [facility] Comment on above: GFR Calc Estimated GFR (MDRD) Non-Af Amer 75 mL/min >60 [facility] Comment on above: Non- GFR Calc Serum or plasma calcium abhinav urement (mass/volume)Ordered By: Stephanie Jay on 11-06-2023 Calcium [Mass/Vol] 9.3 mg/dL 8.5-10.1 [facility] Serum or plasma creatinine m easurement (mass/volume)Ordered By: Stephanie Jay on 11-06-2023 Creatinine [Mass/Vol] 0.79 mg/dL 0.55-1.02 [facility] Comment on above: The validity of the calculated GFR & GFRAA in patients over 70 years has not been determined. Clinical correlation is essential. Serum or plasma urea nitroge n measurement (mass/volume)Ordered By: Stephanie Jay on 11-06-2023 Urea nitrogen [Mass/Vol] 18 mg/dL 7-18 [facility] Thin prep Papanicolaou smear with manual screeningOrdered By: Stephanie Jay on 11-06-2023 Thin prep Papanicolaou smear with manual screening 3 5-15 [facility] CNPNon 10-30-2023 HAILEY Telephone (UROLST) CASA BURTON ([id number]) 1945 F Date Time Provider Department 10/30/23 FRED MENA UROLSLani During your visit today, we recorded the following information about you: Fred Mena PA-C 10/30/2023 8:37 PM Signed Please notify patient that his Urine Cytology showed "Atypical Cells" these are NOT cancer cells, but do require investigation with Cystoscopy with Staff Urologist Especially in light of her having past history of Bladder Cancer, appt with me is not needed she will need Surgeon to do consult and cystoscopy and if gross hematuria, A CT urogram as well. Closest to [place] is [facility] I can place orders and request consult to [place] The only tests so far are culture and cytology no UA and no knowledge of gross hematuria or not. We are only getting bits and pieces not the whole picture. Fred Mena, [facility], [place], Prabhakar Evans LPN 10/31/2023 8:35 AM Signed Called patient. Verified name and date of . Informed- did state it is a lot ot process with her have Cerebral Palsy and was hoping for good news since she has been doing well. Patient did ask that I call her niece Key at [phone] and let her know. Patient plans to discuss with Key plan and will let us know what they decide. Patient requests a call back to let her know if I get a hold of Key as she doesn't want to take too much time from her niece while she is at work. ELDER Johnson Kimberly, LPN 10/31/2023 8:49 AM Signed Called Key. Verified name and date of [...] and will get a hold of Hedy Covington MA to schedule if they move forward. ELDER Johnson MA, Laurie 10/31/2023 4:58 PM Signed Scheduled for Virtual visit with Dr. Aguilar 11/11 at 1pm. Pt and niece notified and are in agreement with plan to discuss atypical cytology and determine any further work-up. Hedy Covington MA Allergies As of Date: 10/30/2023 Noted Allergy Reaction AUGMENTIN (AMOXICILLIN-POT CLAVUL*11/21/2009 ERYTHROMYCIN 11/21/2009 SYMMETREL (AMANTADINE HCL) 11/21/2009 Date Reviewed: 05/27/2019 Reviewed by: Kem Ellis - Fully Assessed Reason for Visit: Results [95] Prescriptions as of 10/31/2023 - vitamin b complex tab Take 1 tablet by mouth once daily. - amLODIPine (NORVASC) 5 mg tablet Take 5 mg by mouth once daily. - GLUC BALTAZAR/CHONDRO BALTAZAR A/VIT C/MN (GLUCOSAMINE CHONDROITIN MAXSTR ORAL) Take 1 tablet by mouth once daily. - METOPROLOL SUCCINATE ORAL Take 50 mg by mouth once daily. - lisinopril (ZESTRIL, PRINIVIL) 10 mg tablet Take 20 mg by mouth once daily. - aspirin, enteric coated (ASPIRIN, ENTERIC COATED) 325 mg EC tablet Take 1 tablet by mouth twice daily as needed. Take with food. - multivitamin tablet Take 1 tablet by mouth once daily. - Blood Pressure Cuff - Home Use BLOOD PRESSURE CUFF FOR HOME USE. DX: LABILE BLOOD PRESSURE - APPLE CIDER VINEGAR ORAL Take by mouth. - astaxanthin 4 mg ORAL Cap Take by mouth. - cholecalciferol, vitamin D3, 400 unit ORAL Cap Take 1,000 Units by mouth twice daily. 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 Personal history of malignant neoplasm of bladd*03/17/2010 Amblyopia [H53.009] 06/30/2014 Cerebral palsy (HCC) [G80.9] 06/30/2014 Well adult exam [Z00.00] 06/30/2014 Valvular heart disease [I38] 07/28/2014 Osteoporosis [M81.0] 08/17/2014 Chronic hip pain [M25.559, G89.29] 01/05/2015 Balance problems [R26.89] 01/05/2015 Encounter Status:Closed by MUNIRA COVINGTON LAURIE on 10/31/23 Normal [facility] CYTOLOGY NON-GYNon CASE REPORT Normal [facility] Comment on above: Order Comment: Speci men Type: FLUID SPECIMEN Ordering Facility: [facility] Address: [address] [place] [address] Result Comment: [facility] Cytology Report Case: [id number] Authorizing Provider: Fred Mena PA-C Collected: 10/28/2023 05:02 PM Ordering Location: Urology Received: 10/28/2023 05:02 PM Pathologist: Luis Daniel Lo MD Specimen: URINE VOIDED Performed By: #### C YTONON #### [facility] CLIA [id number] [address] [place] [address] [place] CLINICAL HISTORY bladder cancer Normal [facility] Comment on above: Order Comment: Speci men Type: FLUID SPECIMEN Ordering Facility: [facility] Address: [address] [place] [address] Performed By: #### C YTONON #### [facility] CLIA [id number] [address] [place] [address] [place] FINAL DIAGNOSIS Normal [facility] Comment on above: Order Comment: Speci men Type: FLUID SPECIMEN Ordering Facility: [facility] Address: [address] [place] [address] Result Comment: A - URINE VOIDED Atypical urothelial cells. Blood Performed By: #### C YTONON #### [facility] CLIA [id number] [address] [place] [address] [place] FINAL PERFORMING LAB Normal [facility] Comment on above: Order Comment: Speci men Type: FLUID SPECIMEN Ordering Facility: [facility] Address: [address] [place] [address] Result Comment: Tech nical component, director career services screening performed at [facility], [address] [place] [address] CLIA# [id number] Diagnostic interpretation performed at [facility], [address] [place] [address] CLIA# [id number] Switchboard Operator Receptionist: Kip Moreau M.D. Performed By: #### C YTONON #### [facility] CLIA [id number] [address] [place] [address] [place] GROSS DESCRIPTION A. URINE VOIDED Normal [facility] Comment on above: Order Comment: Speci men Type: FLUID SPECIMEN Ordering Facility: [facility] Address: [address] [place] [address] Result Comment: 80 c c clear yellow fluid. ThinPrep prepared. Performed By: #### C YTONON #### [facility] CLIA [id number] [address] [place] [address] [place] Bacteria Ur Culton 4 Bacteria identified Cx Nom (U) ORGANISM ID: 1 10,000 -<50,000 CFU/ml Normal urogenital reba Normal [facility] Comment on above: Performed By: #### 6 30-4 #### [facility] CLIA [id number] [address] [place] [address] [place] Basophil percentageOrdered B y: Stephanie Jay on 10-09-2023 Chloride [Moles/Vol] 99 mmol/L 98-107 [facility] Glucose [Mass/Vol] 99 mg/dL 74-106 [facility] Potassium [Moles/Vol] 3.9 mmol/L 3.5-5.1 [facility] Sodium [Moles/Vol] 132 mmol/L 136-145 [facility] Laboratory - Chemistry and C hemistry - challengeOrdered By: Stephanie Jay on 10-09-2023 CO2 [Moles/Vol] 27.0 mmol/L 21.0-32.0 [facility] Urea nitrogen/Creatinine [Mass ratio] 25.5 mg/mg 10-20 [facility] No Panel InformationOrdered By: Stephanie Jay on 10-09-2023 Estimated GFR (MDRD) Amer 97 mL/min >60 [facility] Comment on above: GFR Calc Estimated GFR (MDRD) Non-Af Amer 80 mL/min >60 [facility] Comment on above: Non- GFR Calc Serum or plasma calcium abhinav urement (mass/volume)Ordered By: Stephanie Jay on 10-09-2023 Calcium [Mass/Vol] 9.5 mg/dL 8.5-10.1 [facility] Serum or plasma creatinine m easurement (mass/volume)Ordered By: Stephanie Jay on 10-09-2023 Creatinine [Mass/Vol] 0.74 mg/dL 0.55-1.02 [facility] Comment on above: The validity of the calculated GFR & GFRAA in patients over 70 years has not been determined. Clinical correlation is essential. Serum or plasma urea nitroge n measurement (mass/volume)Ordered By: Stephanie Jay on 10-09-2023 Urea nitrogen [Mass/Vol] 19 mg/dL 7-18 [facility] Thin prep Papanicolaou smear with manual screeningOrdered By: Stephanie Jay on 10-09-2023 Thin prep Papanicolaou smear with manual screening 6 5-15 [facility] CNPNon 10-07-2023 CNPN Telephone (UROLWS) CASA BURTON ([id number]) 1945 F Date Time Provider Department 10/07/23 FRED MENA During your visit today, we recorded the following information about you: MUNIRA Covington Laurie 10/07/2023 11:52 AM Signed Pt was last seen in 2019 for surveillance Cystoscopy. Was told that she no longer needed the cystoscopy but should have urinalysis and urine cytology yearly. She failed to do the cytology/urine check in 2019 and is now having some incontinence. Her niece is wanting to have her urine checked. She has Cerebral palsy which makes it difficult to come to office visits. She lives in [place]. Had previously seen Dr. Beach and Dr. Ellis. Will check with [facility] provider to see if they could do either virtual or lab orders, or if in person visit is needed. She does not have PCP. Not sure if Urgent care is an option if cytology is needed. Please review and advise. MUNIRA Ace Brandon, PA-C 10/10/2023 5:55 PM Signed I can do a Virtual Visit at the end of the day 4:30 pm appt. But I want her to have Urine Cytology and Urine Culture prior so we can discuss them and if and if a Cystoscopy is indicated she would need to see Staff Urologist in-person. I would just have them make sure the lab she uses can process the urine cytology it would likely need to be collected at lab or they can give her instructions on if it can be collected at home and brought in I am sure there is a time aspect just like with cultures and need collected in sterile cup etc. I will place order for lab collect Fred Mena [facility], [place], MANOHAR Covington MA, Laurie 10/11/2023 8:46 AM Signed Pt's niece notified and they will obtain sterile specimen cup and bring in within an hour of collection and taken to [facility]. [employer] account pending. Will schedule virtual after that is in place. MUNIRA Ace MA, Laurie 10/15/2023 2:54 PM Signed Niece will bring specimen in. Virtual appt scheduled 10/28. Hedy Covington MA . MUNIRA Covington Laurie 10/22/2023 3:20 PM Signed Niece brought in urine specimen yesterday. The lab only pulled the culture order and not the cytology. Will give them another clean catch kit and have them submit another specimen. Pt is disabled and PSS was informed of the mistake. Will have to reschedule the virtual appt. Hedy Covington MA Allergies As of Date: 10/07/2023 Noted Allergy Reaction AUGMENTIN (AMOXICILLIN-POT CLAVUL*11/21/2009 ERYTHROMYCIN 11/21/2009 SYMMETREL (AMANTADINE HCL) 11/21/2009 Date Reviewed: 05/27/2019 Reviewed by: Kem Ellis - Fully Assessed Reason for Visit: Patient Question [3087] Orders [681] Primary Visit Diagnosis:History of bladder cancer [Z85.51] Order(s):URINE CULTURE [SQURCUL] Order #: [id number] FUTURE CYTOLOGY NON-METAL WIRE COATING OPERATOR [QRL0023] Order #: [id number] FUTURE Prescriptions as of 10/28/2023 - vitamin b complex tab Take 1 tablet by mouth once daily. - amLODIPine (NORVASC) 5 mg tablet Take 5 mg by mouth once daily. - GLUC BALTAZAR/CHONDRO BALTAZAR A/VIT C/MN (GLUCOSAMINE CHONDROITIN MAXSTR ORAL) Take 1 tablet by mouth once daily. - METOPROLOL SUCCINATE ORAL Take 50 mg by mouth once daily. - lisinopril (ZESTRIL, PRINIVIL) 10 mg tablet Take 20 mg by mouth once daily. - aspirin, enteric coated (ASPIRIN, ENTERIC COATED) 325 mg EC tablet Take 1 tablet by mouth twice daily as needed. Take with food. - multivitamin tablet Take 1 tablet by mouth once daily. - Blood Pressure Cuff - Home Use BLOOD PRESSURE CUFF FOR HOME USE. DX: LABILE BLOOD PRESSURE - APPLE CIDER VINEGAR ORAL Take by mouth. - astaxanthin 4 mg ORAL Cap Take by mouth. - cholecalciferol, vitamin D3, 400 unit ORAL Cap Take 1,000 Units by mouth twice daily. 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 Personal history of malignant neoplasm of bladd*03/17/2010 Amblyopia [H53.009] 06/30/2014 Cerebral palsy (HCC) [G80.9] 06/30/2014 Well adult exam [Z00.00] 06/30/2014 Valvular heart disease [I38] 07/28/2014 Osteoporosis [M81.0] 08/17/2014 Chronic hip pain [M25.559, G89.29] 01/05/2015 Balance problems [R26.89] 01/05/2015 Encounter Status:Closed by MUNIRA COVINGTON LAURIE on 10/11/23 Normal [facility] Basophil percentageon 2021 Chloride [Moles/Vol] 106 mmol/L 98-107 [facility] Work Phone: Glucose [Mass/Vol] 94 mg/dL 74-106 [facility] Work Phone: Potassium [Moles/Vol] 4.3 mmol/L 3.5-5.1 [facility] Work Phone: Sodium [Moles/Vol] 139 mmol/L 136-145 [facility] Work Phone: Laboratory - Chemistry and C hemistry - challengeon 07-05-2022 CO2 [Moles/Vol] 27.0 mmol/L 21.0-32.0 [facility] Work Phone: Urea nitrogen/Creatinine [Mass ratio] 25.1 mg/mg 10-20 [facility] Work Phone: No Panel Informationon 07-05 Estimated GFR (MDRD) Amer 109 mL/min >60 [facility] Work Phone: Comment on above: GFR Calc Estimated GFR (MDRD) Non-Af Amer 90 mL/min >60 [facility] Work Phone: Comment on above: Non- GFR Calc Serum or plasma calcium abhinav urement (mass/volume)on 07-05-2022 Calcium [Mass/Vol] 9.4 mg/dL 8.5-10.1 [facility] Work Phone: Serum or plasma creatinine m easurement (mass/volume)on 07-05-2022 Creatinine [Mass/Vol] 0.68 mg/dL 0.55-1.02 [facility] Work Phone: Comment on above: The validity of the calculated GFR & GFRAA in patients over 70 years has not been determined. Clinical correlation is essential. Serum or plasma urea nitroge n measurement (mass/volume)on 07-05-2022 Urea nitrogen [Mass/Vol] 17 mg/dL 7-18 [facility] Work Phone: Thin prep Papanicolaou smear with manual screeningon 07-05-2022 Thin prep Papanicolaou smear with manual screening 6 5-15 [facility] Work Phone: Office Visiton 02-28-2017 Documentation of current medications (procedure) Done Invalid Interpretation Code [employer] Work Phone: [phone] Fall risk assessment Yes Invalid Interpretation Code [employer] Work Phone: [phone] Office Visiton 03-13-2016 Documentation of current medications (procedure) Done Invalid Interpretation Code [employer] Phone: [phone] Office Visiton 03-24-2015 General cardiovascular disease 10Y risk [#] Velva.D'Agostino 9 % Invalid Interpretation Code [employer] Work Phone: [phone] Tobacco use CPHS Never smoker Invalid Interpretation Code [employer] Work Phone: [phone] Office Visiton 08-31-2014 cardiac risk group B Invalid Interpretation Code [employer] Phone: [phone] EKG Report: [facility] ECG Obse rvationson 07-21-2014 GE use only - for [employer] import when terms are not otherwise specified 410 ms Invalid Interpretation Code [employer] Phone: [phone] QTc Melgar 410 ms Invalid Interpretation Code [employer] Phone: [phone] Replaced Document: [facility] E CG Observationson 07-21-2014 EKG QRS axis 30 deg Invalid Interpretation Code [employer] Work Phone: [phone] electrocardiogram interpretation Sinus Rhythm WITHIN NORMAL LIMITS Invalid Interpretation Code [employer] Phone: [phone] Interpretation Sinus Rhythm WITHIN NORMAL LIMITS Invalid Interpretation Code [employer] Work Phone: [phone] P [place] 59 deg Invalid Interpretation Code [employer] Work Phone: [phone] P wave axis, electrocardiogram 59 deg Invalid Interpretation Code [employer] Work Phone: [phone] MT Interval 134 ms Invalid Interpretation Code [employer] Work Phone: [phone] MT interval, electrocardiogram 134 ms Invalid Interpretation Code [facility] Work Phone: [phone] Pulse (Heart Rate) 411 ms Invalid Interpretation Code [facility] Work Phone: [phone] Pulse (Heart Rate) 91 /min Invalid Interpretation Code [facility] Work Phone: [phone] QRS axis, electrocardiogram 30 deg Inva lid Interpretation Code [employer] Work Phone: [phone] QRS Duration 90 ms Invalid Interpretation Code [employer] Work Phone: [phone] QRS duration, electrocardiogram 90 ms Invalid Interpretation Code [employer] Work Phone: [phone] QT Interval new path ms Invalid Interpretation Code [employer] Work Phone: [phone] QT interval, electrocardiogram new path ms Invalid Interpretation Code [employer] Work Phone: [phone] T [place] 51 deg Invalid Interpretation Code [employer] Work Phone: [phone] T wave axis, electrocardiogram 51 deg Invalid Interpretation Code [employer] Work Phone: [phone] Clinical Lists 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: 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 Anion gap 14 mmol/L Invalid Interpretation Code [employer] Work Phone: [phone] Chloride 101 mmol/L Invalid Interpretation Code [employer] Work Phone: [phone] Cholesterol 224 mg/dL High [employer] Work Phone: [phone] CO2 24 mmol/L Invalid Interpretation Code [employer] Work Phone: [phone] Creatinine 0.68 mg/dL Invalid Interpretation Code [employer] Work Phone: [phone] Glucose 89 mg/dL Invalid Interpretation Code [employer] Work Phone: [phone] Glucose mass conc 89 mg/dL Invalid Interpretation Code [employer] Work Phone: [phone] HDL Cholesterol 72 mg/dL Invalid Interpretation Code [employer] Work Phone: [phone] LDL Cholesterol 137 mg/dL High [facility] [employer] Work Phone: [phone] Potassium 4.0 mmol/L Invalid Interpretation Code [employer] Work Phone: [phone] Sodium 139 mmol/L Invalid Interpretation Code [employer] Work Phone: Thyroid stimulating hormone (TSH) 1.37 u[iU]/mL Invalid Interpretation Code [facility] Work Phone: [phone] Triglyceride 76 mg/dL Invalid Interpretation Code [facility] Work Phone: [phone] Urea nitrogen 13 mg/dL Invalid Interpretation Code [facility] Work Phone: [phone] very low density lipoproteins 15 mg/dL Invalid Interpretation Code [facility] Work Phone: [phone] Vital Signs Date Time Vital Sign Value Performing Clinician Facility 01-06-2025 03:36-0400 Diastolic blood pressure 69 mm[Hg] Mejeanmariegon Rossi DO Work Phone: [facility] 01-06-2025 03:36-0400 Heart rate 100 /min jgon Rossi DO Work Phone: [facility] 01-06-2025 03:36-0400 SaO2% (BldA) [Mass fraction] 100 % jgon Rossi DO Work Phone: [facility] 01-06-2025 03:36-0400 Systolic blood pressure 126 mm[Hg] jgon Rossi DO Work Phone: [facility] 01-06-2025 02:02-0400 Respiratory rate 24 /min jgon Rossi DO Work Phone: [facility] 01-05-2025 22:31-0400 Body temperature 98.29 [degF] Emman Rossi DO Work Phone: [facility] 12-31-2024 08:50-0400 Body temperature 97.2 [degF] Noni Levine MD Work Phone: [facility] 12-31-2024 08:50-0400 Diastolic blood pressure 70 mm[Hg] Noni Levine MD Work Phone: [facility] 12-31-2024 08:50-0400 Heart rate 101 /min Noni Levine MD Work Phone: [facility] 12-31-2024 08:50-0400 Respiratory rate 16 /min Noni Levine MD Work Phone: [employer] [facility] 12-31-2024 08:50-0400 SaO2% (BldA) [Mass fraction] 96 % Noni Levine MD Work Phone: [facility] 12-31-2024 08:50-0400 Systolic blood pressure 123 mm[Hg] Noni Levine MD Work Phone: [employer] [facility] 12-31-2024 06:59-0400 Body mass index (BMI) [Ratio] 15.92 kg/m2 Noni Levine MD Work Phone: [employer] [facility] 12-31-2024 06:59-0400 Body weight 42.1 kg Noni Levine MD Work Phone: [facility] 12-26-2024 18:04-0400 SaO2% (BldA) [Mass fraction] 97.8 % Noni Levine MD Work Phone: [facility] 12-26-2024 16:42-0400 SaO2% (BldA) [Mass fraction] 86.3 % Noni Levine MD Work Phone: [employer] [facility] 12-24-2024 03:49-0400 SaO2% (BldA) [Mass fraction] 97.2 % Noni Levine MD Work Phone: [employer] [facility] 12-23-2024 03:03-0400 SaO2% (BldA) [Mass fraction] 98 % Noni Levine MD Work Phone: [facility] 12-22-2024 11:16-0400 Body height 162.6 cm Noni Levine MD Work Phone: [employer] [facility] 12-22-2024 04:15-0400 SaO2% (BldA) [Mass fraction] 97.7 % Noni Levine MD Work Phone: [employer] [facility] 12-21-2024 05:35-0400 SaO2% (BldA) [Mass fraction] 96.6 % Noni Levine MD Work Phone: [employer] [facility] 12-20-2024 04:42-0400 SaO2% (BldA) [Mass fraction] 98.1 % Noni Levine MD Work Phone: [facility] 12-13-2024 11:13-0400 Body temperature 99.2 [degF] No Primary Care Physician [facility] 12-13-2024 11:13-0400 Diastolic blood pressure 58 mm[Hg] No Primary Care Physician [facility] 12-13-2024 11:13-0400 Heart rate 98 /min No Primary Care Physician [facility] 12-13-2024 11:13-0400 Respiratory rate 19 /min No Primary Care Physician [facility] 12-13-2024 11:13-0400 SaO2% (BldA) [Mass fraction] 95 % No Primary Care Physician [facility] 12-13-2024 11:13-0400 Systolic blood pressure 117 mm[Hg] No Primary Care Physician [facility] 12-13-2024 11:00-0400 Inhaled oxygen concentration 40 % No Primary Care Physician [facility] 12-13-2024 03:48-0400 Inhaled oxygen flow rate 10 L/min No Primary Care Physician [facility] 12-13-2024 03:16-0400 Body height 167.64 cm No Primary Care Physician [facility] 12-13-2024 03:16-0400 Body mass index (BMI) [Ratio] 23.6 kg/m2 No Primary Care Physician [facility] 12-13-2024 03:16-0400 Body weight 66.3 kg No Primary Care Physician [facility] 12-11-2024 18:31-0400 Heart rate 94 /min No Primary Care Physician [facility] 12-11-2024 18:00-0400 Inhaled oxygen flow rate 3 L/min No Primary Care Physician [facility] 12-11-2024 16:44-0400 Body temperature 97.4 [degF] No Primary Care Physician [facility] 12-11-2024 16:44-0400 Diastolic blood pressure 75 mm[Hg] No Primary Care Physician [facility] 12-11-2024 16:44-0400 Respiratory rate 16 /min No Primary Care Physician [facility] 12-11-2024 16:44-0400 SaO2% (BldA) [Mass fraction] 95 % No Primary Care Physician [facility] 12-11-2024 16:44-0400 Systolic blood pressure 152 mm[Hg] No Primary Care Physician [facility] 12-11-2024 09:45-0400 Body height 167.64 cm No Primary Care Physician [facility] 12-11-2024 09:45-0400 Body weight 65.63 kg No Primary Care Physician [facility] 12-11-2024 08:43-0400 Body mass index (BMI) [Ratio] 23.2 kg/m2 No Primary Care Physician [facility] 12-09-2024 15:07-0400 Inhaled oxygen concentration 55 % No Primary Care Physician [facility] 12-04-2024 15:09-0500 Body temperature 101.7 [degF] No Primary Care Physician [facility] 12-04-2024 15:09-0500 Diastolic blood pressure 55 mm[Hg] No Primary Care Physician [facility] 12-04-2024 15:09-0500 Heart rate 102 /min No Primary Care Physician [facility] 12-04-2024 15:09-0500 Respiratory rate 22 /min No Primary Care Physician [facility] 12-04-2024 15:09-0500 SaO2% (BldA) [Mass fraction] 98 % No Primary Care Physician [facility] 12-04-2024 15:09-0500 Systolic blood pressure 119 mm[Hg] No Primary Care Physician [facility] 12-04-2024 15:07-0500 Inhaled oxygen concentration 55 % No Primary Care Physician [facility] 12-04-2024 15:07-0500 Inhaled oxygen flow rate 50 L/min No Primary Care Physician [facility] 12-04-2024 11:41-0500 Body height 170.18 cm No Primary Care Physician [facility] 12-04-2024 11:41-0500 Body mass index (BMI) [Ratio] 24.8 kg/m2 No Primary Care Physician [facility] 12-04-2024 11:41-0500 Body weight 71.9 kg No Primary Care Physician [facility] 11-30-2024 15:00-0500 Heart rate 90 /min CHRISSIE HERNANDEZ APRN-COM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 [facility] 11-30-2024 15:00-0500 Systolic Blood Pressure Non-Invasive 122 mm[Hg] CHRISSIE ROSARIOER SUPERVISOR BLOOD DONOR RECRUITERS-COM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 [facility] 11-30-2024 11:40-0500 Body temperature 98.06 [degF] CHRISSIE ROSARIOER SUPERVISOR BLOOD DONOR RECRUITERS-COM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 [facility] 11-30-2024 11:40-0500 Diastolic Blood Pressure Non-Invasive 54 mm[Hg] CHRISSIE HERNANDEZ SUPERVISOR BLOOD DONOR RECRUITERS-COM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 [facility] 11-30-2024 11:40-0500 Heart rate 86 /min CHRISSIE HERNANDEZ SUPERVISOR BLOOD DONOR RECRUITERS-COM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 [facility] 11-30-2024 11:40-0500 Reason For Taking VItal Signs CHRISSIE HERNANDEZ SUPERVISOR BLOOD DONOR RECRUITERS-COM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 [facility] 11-30-2024 11:40-0500 Respiratory rate 18 /min CHRISSIE ROSARIOER SUPERVISOR BLOOD DONOR RECRUITERS-COM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 [facility] 11-30-2024 11:40-0500 Systolic Blood Pressure Non-Invasive 113 mm[Hg] CHRISSIE HERNANDEZ SUPERVISOR BLOOD DONOR RECRUITERS-COM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 [facility] 11-30-2024 11:37-0500 Body temperature 97.88 [degF] CHRISSIE HERNANDEZ SUPERVISOR BLOOD DONOR RECRUITERS-COM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 [facility] 11-30-2024 11:37-0500 Diastolic Blood Pressure Non-Invasive 59 mm[Hg] CHRISSIE HERNANDEZ SUPERVISOR BLOOD DONOR RECRUITERS-COM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 [facility] 11-30-2024 11:37-0500 Heart rate 80 /min CHRISSIE ROSARIOER SUPERVISOR BLOOD DONOR RECRUITERS-COM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 [facility] 11-30-2024 11:37-0500 Systolic Blood Pressure Non-Invasive 114 mm[Hg] CHRISSIE KAPPER SUPERVISOR BLOOD DONOR RECRUITERS-COM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 [facility] 11-30-2024 08:07-0500 Heart rate 110 /min CHRISSIE KAPPER SUPERVISOR BLOOD DONOR RECRUITERS-COM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 [facility] 11-30-2024 02:35-0500 Heart rate 83 /min CHRISSIE KAPPER SUPERVISOR BLOOD DONOR RECRUITERS-COM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 [facility] 11-29-2024 23:14-0500 Heart rate 94 /min CHRISSIE ABRAHAMER SUPERVISOR BLOOD DONOR RECRUITERS-COM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 [facility] 11-29-2024 16:33-0500 Heart rate 85 /min CHRISSIE KAPPER SUPERVISOR BLOOD DONOR RECRUITERS-COM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 [facility] 11-29-2024 11:42-0500 Heart rate 76 /min CHRISSIEEsvin ROSARIOER SUPERVISOR BLOOD DONOR RECRUITERS-COM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 [facility] 11-29-2024 07:15-0500 Heart rate 87 /min CHRISSIEEsvin ROSARIOER SUPERVISOR BLOOD DONOR RECRUITERS-COM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 [facility] 11-22-2024 01:52-0500 Blood Pressure Method CHRISSIE ABRAHAMER SUPERVISOR BLOOD DONOR RECRUITERS-COM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 [facility] 11-22-2024 01:09-0500 Blood Pressure Location CHRISSIEEsvin ROSARIOER SUPERVISOR BLOOD DONOR RECRUITERS-COM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 [facility] 11-22-2024 01:09-0500 Blood Pressure Method CHRISSIE KAPPER SUPERVISOR BLOOD DONOR RECRUITERS-COM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 [facility] 11-22-2024 00:57-0500 SaO2% (BldA) [Mass fraction] 99.4 % CHRISSIE ABRAHAMER SUPERVISOR BLOOD DONOR RECRUITERS-COM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 [facility] 11-21-2024 23:32-0500 Blood Pressure Cuff Size CHRISSIE ABRAHAMER SUPERVISOR BLOOD DONOR RECRUITERS-COM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 [facility] 11-21-2024 23:32-0500 Blood Pressure Location CHRISSIE KAPPER SUPERVISOR BLOOD DONOR RECRUITERS-COM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 [facility] 11-21-2024 23:32-0500 Blood Pressure Method CHRISSIE KAPPER SUPERVISOR BLOOD DONOR RECRUITERS-COM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 [facility] 11-21-2024 16:17-0500 Blood Pressure Location CHRISSIE KAPPER SUPERVISOR BLOOD DONOR RECRUITERS-COM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 [facility] 11-21-2024 09:58-0500 Body height 170.2 cm CHRISSIE KAPPER SUPERVISOR BLOOD DONOR RECRUITERS-COM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 [facility] 11-21-2024 09:58-0500 Body weight 61.3 kg CHRISSIE KAPPER SUPERVISOR BLOOD DONOR RECRUITERS-COM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 [facility] 11-21-2024 09:58-0500 Body weight 21.16 kg/m2 CHRISSIE KAPPER SUPERVISOR BLOOD DONOR RECRUITERS-COM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 [facility] 11-21-2024 09:10-0500 Blood Pressure Location MAGED MEYER MD FACP [facility] 11-21-2024 09:10-0500 Blood Pressure Method MAGED MEYER MD FACP [facility] 11-21-2024 09:10-0500 Diastolic Blood Pressure Non-Invasive 60 mm[Hg] MAGED MEYER MD FACP [facility] 11-21-2024 09:10-0500 Heart rate 80 /min MAGED MEYER MD FACP [facility] 11-21-2024 09:10-0500 Systolic Blood Pressure Non-Invasive 108 mm[Hg] MAGED MEYER MD FACP [facility] 11-21-2024 08:10-0500 Body temperature 97.52 [degF] MAGED MEYER MD FACP [facility] 11-21-2024 08:10-0500 Diastolic Blood Pressure Non-Invasive 54 mm[Hg] MAGED MEYER MD FACP [facility] 11-21-2024 08:10-0500 Heart rate 87 /min MAGED MEYER MD FACP [facility] 11-21-2024 08:10-0500 Reason For Taking VItal Signs MAGED MEYER MD FACP [facility] 11-21-2024 08:10-0500 Respiratory rate 18 /min MAGED MEYER MD FACP [facility] 11-21-2024 08:10-0500 Systolic Blood Pressure Non-Invasive 83 mm[Hg] MAGED MEYER MD FACP [facility] 11-20-2024 19:51-0500 Body temperature 97.34 [degF] MAGED MEYER MD FACP [facility] 11-20-2024 19:51-0500 Diastolic Blood Pressure Non-Invasive 45 mm[Hg] MAGED MEYER MD FACP [facility] 11-20-2024 19:51-0500 Heart rate 74 /min MAGED MEYER MD FACP [facility] 11-20-2024 19:51-0500 Reason For Taking VItal Signs MAGED MEYER MD FACP [facility] 11-20-2024 19:51-0500 Respiratory rate 18 /min MAGED MEYER MD FACP [facility] 11-20-2024 19:51-0500 Systolic Blood Pressure Non-Invasive 112 mm[Hg] MAGED MEYER MD FACP [facility] 11-20-2024 09:00-0500 Heart rate 95 /min MAGED MEYER MD FACP [facility] 11-20-2024 06:27-0500 Heart rate 107 /min MAGED MEYER MD FACP [facility] 11-20-2024 06:27-0500 Reason For Taking VItal Signs MAGED MEYER MD FACP [facility] 11-20-2024 06:27-0500 Respiratory rate 20 /min MAGED MEYER MD FACP [facility] 11-19-2024 18:57-0500 Body temperature 97.52 [degF] MAGED MEYER MD FACP [facility] 11-19-2024 18:57-0500 Heart rate 99 /min MAGED MEYER MD FACP [facility] 11-19-2024 08:10-0500 Heart rate 94 /min MAGED MEYER MD FACP [facility] 11-19-2024 07:50-0500 Blood Pressure Location MAGED MEYER MD FACP [facility] 11-19-2024 07:50-0500 Blood Pressure Method MAGED MEYER MD FACP [facility] 11-18-2024 18:45-0500 Heart rate 83 /min MAGED MEYER MD FACP [facility] 11-18-2024 07:52-0500 Heart rate 86 /min MAGED MEYER MD FACP [facility] 11-18-2024 00:19-0500 Blood Pressure Location MAGED MEYER MD FACP [facility] 11-18-2024 00:19-0500 Blood Pressure Method MAGED MEYER MD FACP [facility] 11-14-2024 20:13-0500 Mean blood pressure 80 mm[Hg] MAGED MEYER MD FACP [facility] 11-11-2024 23:07-0500 Body height 170.2 cm MAGED MEYER MD FACP [facility] 11-11-2024 23:07-0500 Body weight 60.3 kg MAGED MEYER MD FACP [facility] 11-11-2024 23:07-0500 Body weight 20.82 kg/m2 MAGED MEYER MD FACP [facility] 11-11-2024 19:45-0500 Body temperature 97.5 [degF] No Primary Care Physician [facility] 11-11-2024 19:45-0500 Diastolic blood pressure 80 mm[Hg] No Primary Care Physician [facility] 11-11-2024 19:45-0500 Heart rate 95 /min No Primary Care Physician [facility] 11-11-2024 19:45-0500 Respiratory rate 16 /min No Primary Care Physician [facility] 11-11-2024 19:45-0500 SaO2% (BldA) [Mass fraction] 95 % No Primary Care Physician [facility] 11-11-2024 19:45-0500 Systolic blood pressure 125 mm[Hg] No Primary Care Physician [facility] 11-10-2024 12:12-0500 Body weight 63 kg No Primary Care Physician [facility] 10-30-2024 17:34-0500 Body mass index (BMI) [Ratio] 21.7 kg/m2 No Primary Care Physician [facility] 09-25-2024 12:18-0500 Heart rate 94 /min No Primary Care Physician [facility] 09-25-2024 11:20-0500 Body mass index (BMI) [Ratio] 24.3 kg/m2 No Primary Care Physician [facility] 09-25-2024 11:20-0500 Body weight 64.41 kg No Primary Care Physician [facility] 09-25-2024 11:20-0500 Diastolic blood pressure 76 mm[Hg] No Primary Care Physician [facility] 09-25-2024 11:20-0500 Respiratory rate 16 /min No Primary Care Physician [facility] 09-25-2024 11:20-0500 SaO2% (BldA) [Mass fraction] 96 % No Primary Care Physician [facility] 09-25-2024 11:20-0500 Systolic blood pressure 168 mm[Hg] No Primary Care Physician [facility] 12-05-2023 15:44-0500 Body height 170.2 cm Darrius Aguilar MD Work Phone: [facility] 12-05-2023 15:44-0500 Body weight 62.14 kg Darrius Aguilar MD Work Phone: [facility] 12-05-2023 15:44-0500 Heart rate 81 /min Darrius Aguilar MD Work Phone: [facility] 12-05-2023 15:44-0500 SaO2% (BldA) [Mass fraction] 93 % Darrius Aguilar MD Work Phone: [facility] 07-25-2023 14:46-0400 Body height 162.56 cm No Primary Care Physician [facility] 07-25-2023 14:46-0400 Body mass index (BMI) [Ratio] 23.5 kg/m2 No Primary Care Physician [facility] 07-25-2023 14:46-0400 Body weight 62.14 kg No Primary Care Physician [facility] 07-25-2023 14:46-0400 Diastolic blood pressure 87 mm[Hg] No Primary Care Physician [facility] 07-25-2023 14:46-0400 Heart rate 118 /min No Primary Care Physician [facility] 07-25-2023 14:46-0400 Respiratory rate 16 /min No Primary Care Physician [facility] 07-25-2023 14:46-0400 Systolic blood pressure 176 mm[Hg] No Primary Care Physician [facility] 07-05-2022 08:37-0400 Body height 162.[address] Toribio Morfin Work Phone: [facility] Work Phone: 07-05-2022 08:37-0400 Body mass index (BMI) [Ratio] 23.5 kg/m2 Dr. Toribio Morfin Work Phone: [facility] Work Phone: 07-05-2022 08:37-0400 Body weight 62.[address] Toribio Morfin Work Phone: [facility] Work Phone: 07-05-2022 08:37-0400 Diastolic blood pressure 72 mm[Hg] Dr. Toribio Morfin Work Phone: [facility] Work Phone: 07-05-2022 08:37-0400 Heart rate 78 /min Dr. Toribio Morfin Work Phone: [facility] Work Phone: 07-05-2022 08:37-0400 Respiratory rate 16 /min Dr. Toribio Morfin Work Phone: [facility] Work Phone: 07-05-2022 08:37-0400 Systolic blood pressure 163 mm[Hg] Dr. Toribio Morfin Work Phone: [facility] Work Phone: 02-28-2017 16:17-0400 BMI (Body Mass Index) 25.29 kg/m2 [facility] Work Phone: 02-28-2017 16:17-0400 BP Diastolic 70 mm[Hg] [facility] Work Phone: 02-28-2017 16:17-0400 BP Systolic 150 mm[Hg] Ekta Reagan [facility] Work Phone: 02-28-2017 16:17-0400 Height 167.64 cm Ekta Reagan [facility] Work Phone: 02-28-2017 16:17-0400 Pulse (Heart Rate) 76 /min Ekta Reagan [facility] Work Phone: 02-28-2017 16:17-0400 Respiratory Rate 20 /min Ekta Reagan [facility] Work Phone: 02-28-2017 16:17-0400 Weight 71.08 kg Ekta Reagan [facility] Work Phone: 03-13-2016 15:55-0400 BMI (Body Mass Index) 24.63 kg/m2 Harisidro Ballard [facility] Work Phone: 03-13-2016 15:55-0400 BP Diastolic 70 mm[Hg] Harumi DeFinis [facility] Work Phone: 03-13-2016 15:55-0400 BP Systolic 160 mm[Hg] Harumi DeFinis [facility] Work Phone: 03-13-2016 15:55-0400 BSA (Body Surface Area) 1.78 m2 Harumi DeFinis [facility] Work Phone: 03-13-2016 15:55-0400 Pulse (Heart Rate) 76 /min Harumi DeFinis [facility] Work Phone: 03-13-2016 15:55-0400 Respiratory Rate 20 /min Harumi DeFinis [facility] Work Phone: 03-13-2016 15:55-0400 Weight 69.22 kg Harumi DeFinis [facility] Work Phone: 07-21-2014 14:19-0400 Height 167.64 cm Harumi DeFinis [facility] Work Phone: Encounters Encounter Date Encounter Type Care Provider Facility Start: 04-20-2025 End: 04-20-2025 Patient encounter procedure Sophie Erickson DE -[facility] Work Phone: Start: 04-20-2025 End: 04-20-[address] Jenaro Ayers MD Work Phone: -[facility] Start: 04-05-2025 ambulatory Jenaro Ayers Facility: [facility] Start: 04-05-2025 Registered Referred Phi Matamoros MD -[facility] Start: 02-24-2025 End: 02-24-[address] She Tejada DO Work Phone: [facility] Work Phone: Start: 02-24-2025 End: 02-24-2025 Departed Referred Phi Matamoros MD -[facility] Start: 02-24-2025 End: 02-24-2025 Phi Matamoros MD -[facility] Start: 02-23-2025 End: 02-24-2025 ambulatory Jenaro Ayers Facility:[facility] Start: 02-23-2025 [facility] Start: 02-23-2025 [facility] Start: 02-15-2025 End: 02-15-2025 ambulatory No Primary Care Physician [facility] Work Phone: Start: 02-15-2025 End: 02-15-2025 [facility] Start: 02-15-2025 End: 02-15-2025 [facility] Start: 02-15-2025 End: 02-15-2025 ambulatory Jenaro Ayers Facility:[facility] Start: 01-25-2025 ambulatory Jenaro Ayers Facility: [facility] Start: 01-25-2025 [facility] Start: 01-25-2025 [facility] Start: 01-18-2025 ambulatory Jenaro Ayers Facility: [facility] Start: 01-18-2025 [facility] Start: 01-18-2025 [facility] Start: 01-11-2025 End: 01-12-2025 Telephone encounter Casa Navarro RN [facility] [place] Comment on above: Other (PICC line rem oval by pt) Start: 01-11-2025 ambulatory [facility] Facility: [facility] Start: 01-11-2025 Registered Referred Phi Matamoros MD -[facility] Start: 01-11-2025 [facility] Start: 01-05-2025 End: 01-06-2025 Emergency department patient visit Jaswant Richey DO Work Phone: [facility] Comment on above: Status post peripher ally inserted central catheter (PICC) central line placement (Primary Dx); Urinary tract infection associated with indwelling urethral catheter, initial encounter (HCC); Tachycardia Start: 01-05-2025 [facility] Facility: [facility] Start: 01-05-2025 [facility]istered [facility] Start: 01-05-2025 [facility] Start: 01-04-2025 [facility] Facility: [facility] Start: 01-04-2025 [facility]istered [facility] Start: 01-04-2025 [facility] Start: 12-26-2024 End: 12-31-2024 Telephone encounter Feli Damon DO Work Phone: [facility] [place] Comment on above: Consult Start: 12-16-2024 End: 12-17-2024 Telephone encounter Rakel Hawthorne MD Work Phone: [facility]ious [facility] [place] Comment on above: Other (Request for W records) Start: 12-13-2024 End: 12-31-2024 Evaluation and management of inpatient Noni Levine MD Work Phone: [facility] Start: 12-13-2024 End: 12-13-2024 No Primary Care Physician -Emergency Department Work Phone: Start: 12-13-2024 End: 12-13-2024 Emergency department patient visit No Primary Care Physician [facility] Work Phone: Start: 12-11-2024 Dr. Sonali Rousseau MD -[facility] Work Phone: Start: 12-10-2024 Cristino Friend DO -[facility] Start: 12-09-2024 Cristino Friend DO -[facility] Start: 12-09-2024 Dr. Sonali Rousseau MD -[facility] Work Phone: Start: 12-08-2024 Cristino Warren DO -[facility] Start: 12-08-2024 Dr. Sonali Rousseau MD -[facility] Work Phone: Start: 12-07-2024 Dr. Sonali Rousseau MD -[facility] Work Phone: Start: 12-06-2024 Dr. Valarie mayer MD -[facility] Work Phone: Start: 12-05-2024 Dr. Valarie mayer MD -[facility] Work Phone: Start: 12-04-2024 ambulatory Shiv Andrews Fac ility:[facility] Start: 12-04-2024 End: 12-11-2024 Evaluation and management of inpatient Dr. Shiv Andrews DO -Intensive Care Unit Work Phone: Start: 12-04-2024 End: 12-11-2024 Dr. 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 Bautista Lizarraga MD [facility] Work Phone: Start: 11-11-2024 Dr. Bautista Lizarraga MD [facility] Work Phone: Start: 11-10-2024 Non-patient / Non-visit Dr. Bautista Lizarraga MD [facility] Work Phone: Start: 11-10-2024 Dr. Bautista Lizarraga MD [facility] Work Phone: Start: 11-09-2024 Non-patient / Non-visit Dr. Bautista Lizarraga MD [facility] Work Phone: Start: 11-09-2024 Dr. Bautista Lizarraga MD [facility] Work Phone: Start: 11-08-2024 Non-patient / Non-visit Dr. Zachary Madison MD [facility] Work Phone: Start: 11-08-2024 Dr. [facility] Work Phone: Start: 11-07-2024 Non-patient / Non-visit Dr. Zachary Madison MD [facility] Work Phone: Start: 11-07-2024 Dr. Zachary Madison MD [facility] Work Phone: Start: 11-06-2024 Non-patient / Non-visit Cristino Kwan DO -[facility] Start: 11-06-2024 Cristino Kwan DO -[facility] Start: 11-06-2024 Non-patient / Non-visit [facility] Work Phone: Start: 11-06-2024 Dr. Zachary Madison MD [facility] Work Phone: Start: 11-05-2024 Non-patient / Non-visit Cristino Friend DO -[facility] Start: 11-05-2024 Cristino Friend DO -[facility] Start: 11-05-2024 Non-patient / Non-visit Dr. Zachary Madison MD [facility] Work Phone: Start: 11-05[facility] Start: 11-04-2024 ambulatory Cristino Friend Facility [facility] Start: 11-04-2024 Non-patient / Non-visit Cristino Friend DO -[facility] Start: 11-04-2024 Cristino Friend DO -[facility] Start: 11-04-2024 Non-patient / Non-visit Dr. Zachary Madison MD [facility] Work Phone: Start: 11-04-2024 Dr. Zachary Madison MD [facility] Work Phone: Start: 11-04-2024 End: 11-04-2024 ambulatory [facility] Facility:[facility] Start: 11-04-2024 End: 11-04-2024 Non-patient / Non-visit Dr. Russel Hammer MD [facility] Work Phone: Start: 11-04-2024 End: 11-04-2024 Dr. Russel Hammer MD [facility] Work Phone: Start: 11-03-2024 Non-patient / Non-visit Cristino Friend DO -[facility] Start: 11-03-2024 Cristino Friend DO -[facility] Start: 11-03-2024 Non-patient / Non-visit Dr. Zachary Madison MD [facility] Work Phone: Start: 11-03-2024 Dr. Zachary Madison MD -[facility] Work Phone: Start: 11-02-2024 ambulatory Russel Garciaori Facility:[facility] Start: 11-02-2024 Non-patient / Non-visit Dr. Zachary Madison MD -[facility] Work Phone: Start: 11-02-2024 Dr. Zachary Madison MD -[facility] Work Phone: Start: 11-01-2024 Non-patient / Non-visit Dr. Marleni Menendez DO [facility] Work Phone: Start: 11-01-2024 Dr. Marleni Menendez DO [facility] In[facility] Work Phone: Start: 10-31-2024 Non-patient / Non-visit Dr. Marleni Menendez DO [facility] Work Phone: Start: 10-31-2024 Dr. Marleni Menendez [facility] Work Phone: Start: 10-30-2024 ambulatory Shiv Andrews Fac ility:[facility] Start: 10-30-2024 End: 11-11-2024 Evaluation and management of inpatient Dr. Bautista Lizarraga MD -[facility] Work Phone: Start: 10-30-2024 End: 11-11-2024 Dr. Bautista Lizarraga MD -[facility] Work Phone: Start: 09-25-2024 End: 09-25-2024 Patient encounter procedure Jenaro Cotto CRITICAL CARE TECHNICIAN-C -Laboratory Work Phone: Start: 09-25-2024 End: 09-25-2024 Jenaro Cotto CRITICAL CARE TECHNICIAN-C -Laboratory Work Phone: Start: 09-25-2024 End: 09-25-2024 Patient encounter procedure Jenaro Cotto CRITICAL CARE TECHNICIAN-C -[facility] Work Phone: Start: 09-25-2024 End: 09-25-2024 Jenaro Cotto CRITICAL CARE TECHNICIAN-C -[facility] Work Phone: Start: 09-25-2024 End: 09-25-2024 ambulatory Jenaro Cotto Facility:[facility] Start: 09-25-2024 End: 09-25-2024 ambulatory Jenaro Cotto Facility:[facility] Start: 07-23-2024 ambulatory Jenaro Cotto Facility:[facility] Start: 12-05-2023 End: 12-05-2023 ambulatory SELF Facility:[facility] Start: 12-05-2023 End: 12-05-2023 Patient encounter procedure Darrius Aguilar MD Work Phone: Urology Comment on above: Microscopic hematuri a (Primary Dx); History of bladder cancer Start: 11-28-2023 Telephone encounter Darrius Aguilar MD Work Phone: Urology Comment on above: Results Start: 11-27-2023 End: 11-27-2023 ambulatory DARRIUS AGUILAR Facility:[facility] Start: 11-27-2023 End: 11-27-2023 Subsequent hospital visit by physician [facility] ([facility]) Work Phone: Cat Scan Comment on above: Microscopic hematuri a [R31.29] Start: 11-12-2023 End: 11-12-2023 ambulatory Darrius Aguilar MD Work Phone: Urology Comment on above: Microscopic hematuri a (Primary Dx); History of bladder cancer Start: 11-12-2023 End: 11-12-2023 Telemedicine consultation with patient Darrius Aguilar MD Work Phone: [employer] Start: 11-06-2023 End: 11-06-2023 ambulatory No Primary Care Physician [facility] Work Phone: Start: 11-06-2023 End: 11-06-2023 Patient encounter procedure No Primary Care Physician [facility]-Laboratory Work Phone: Start: 10-30-2023 Telephone encounter Fred rodriguez PA-C Work Phone: Urology Comment on above: Results Start: 10-28-2023 End: 10-29-2023 ambulatory FRED MENA Facility:[facility] Start: 10-21-2023 End: 10-22-2023 ambulatory FRED MENA Facility:[facility] Start: 10-09-2023 End: 10-09-2023 ambulatory No Primary Care Physician [facility] Work Phone: Start: 10-09-2023 End: 10-09-2023 Patient encounter procedure No Primary Care Physician [facility]-Laboratory Work Phone: Start: 08-28-2023 Non-patient / Non-visit No Primary Care Physician [facility] Work Phone: Start: 08-27-2023 Non-patient / Non-visit No Primary Care Physician [facility] Start: 08-27-2023 End: 08-27-2023 ambulatory No Primary Care Physician [facility] Work Phone: Start: 08-27-2023 End: 08-27-2023 Patient encounter procedure No Primary Care Physician [facility] Work Phone: Start: 07-25-2023 End: 07-25-2023 Patient encounter procedure No Primary Care Physician [facility] Work Phone: Start: 07-05-2022 End: 07-05-[address] Toribio Morfin Work Phone: [facility] Work Phone: Start: 07-05-2022 End: 07-05-[address] Toribio Morfin Work Phone: [facility] Start: 05-20-2019 Patient encounter KEM ELLIS Facility:[facility] Start: 05-14-2018 End: 05-14-2018 Patient encounter KEM Mcallister [facility] Facility:[facility] Start: 09-01-2014 Patient encounter status Fred CHAVEZ-C Work Phone: [facility] Work Phone: Procedures Date Procedure Procedure Detail Performing Clinician Start: 02-24-2025 Blood count smear mcrscp w/mnl difrntl wbc count No Primary Care Physician Start: 02-24-2025 Mean corpuscular hemoglobin concentration determination No Primary Care Physician Start: 02-24-2025 Nucleated red blood cell count procedure No Primary Care Physician Start: 02-24-2025 Platelet mean volume determination No Pr imary Care Physician Start: 02-23-2025 Mean corpuscular hemoglobin concentration determination No Primary Care Physician Start: 02-23-2025 Platelet mean volume determination No Pr imary Care Physician Start: 01-18-2025 Blood count smear mcrscp w/mnl difrntl wbc count No Primary Care Physician Start: 01-18-2025 Mean corpuscular hemoglobin concentration determination No Primary Care Physician Start: 01-18-2025 Nucleated red blood cell count procedure No Primary Care Physician Start: 01-18-2025 Platelet mean volume determination No Pr imary Care Physician Start: 01-11-2025 Blood count smear mcrscp w/mnl difrntl wbc count No Primary Care Physician Start: 01-11-2025 Mean corpuscular hemoglobin concentration determination No Primary Care Physician Start: 01-11-2025 Nucleated red blood cell count procedure No Primary Care Physician Start: 01-11-2025 Platelet mean volume determination No Pr imary Care Physician Start: 01-06-2025 Assay of troponin quantitative Jesus Manuel A G ombash DO Work Phone: Start: 01-06-2025 Ct abdomen & pelvis w/contrast material Cheryl Negrete MD Work Phone: Start: 01-06-2025 Ct angiography chest w/contrast/noncontrast Jesus Manuel A Gombash DO Work Phone: Start: 01-05-2025 Urinalysis complete panel - Urine Jaswant Richey DO Work Phone: Start: 01-05-2025 Urnls dip stick/tablet reagent auto microscopy Jaswant Richey DO Work Phone: Start: 01-05-2025 Assay of troponin quantitative Jesus Manuel A G ombash DO Work Phone: Start: 01-05-2025 Blood gases any combination ph pco2 po2 co2 hco3 Jesus Manuel Juan DO Work Phone: Start: 01-05-2025 Ecg routine ecg w/least 12 lds trcg only w/o i&r Jaswant Richey DO Work Phone: Start: 01-05-2025 IR CVC PICC PLACEMENT Jaswant Richey DO Work Phone: Start: 01-05-2025 End: 01-05-2025 Bacteria identified in Blood by Culture Jaswant Richey DO Work Phone: Start: 01-05-2025 End: 01-05-2025 Basic metabolic panel calcium total Jaswant Richey DO Work Phone: Start: 01-05-2025 Radiologic exam chest single view Jaswant Richey DO Work Phone: Start: 01-05-2025 Total iron binding capacity measurement No Primary Care Physician Start: 01-04-2025 Blood count smear mcrscp w/mnl difrntl wbc count No Primary Care Physician Start: 01-04-2025 Mean corpuscular hemoglobin concentration determination No Primary Care Physician Start: 01-04-2025 Nucleated red blood cell count procedure No Primary Care Physician Start: 01-04-2025 Platelet mean volume determination No Pr [facility] Care Physician Start: 12-31-2024 Comprehensive metabolic panel Keely Uye n Juana Vo DO Work Phone: Start: 12-30-2024 Radiologic exam chest single view Parveen Woods MD Work Phone: Start: 12-30-2024 Insertion picc w/rs&i 5 yr/> Peter gentile MD Work Phone: Start: 12-30-2024 Comprehensive metabolic panel Keely Uye n Juana Vo DO Work Phone: Start: 12-29-2024 Comprehensive metabolic panel Keely Uye n Juana Vo DO Work Phone: Start: 12-28-2024 Drug screen quantitative vancomycin Lamar Vila MD Work Phone: Start: 12-28-2024 Comprehensive metabolic panel Keely Uye n Juana Vo DO Work Phone: Start: 12-27-2024 Artl cathj/cannulj mntr/transfusion spx prq [employer]o [employer] - [employer]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 Work Phone: Start: 12-27-2024 Drug screen quantitative vancomycin Lamar Vila MD Work Phone: Start: 12-27-2024 Comprehensive metabolic panel Keely Uye n Juana Vergara DO Work Phone: Start: 12-26-2024 Blood gases any combination ph pco2 po2 co2 hco3 Hussain Younger MD Work Phone: Start: 12-26-2024 OXYGEN THERAPY Hussain Younger MD Work Phone: Start: 12-26-2024 Blood gases any combination ph pco2 po2 co2 hco3 Hussain Younger MD Work Phone: Start: 12-26-2024 Radiologic exam chest single view Elmer Younger MD Work Phone: Start: 12-26-2024 Respiratory pathogens DNA and RNA panel - Nasopharynx by TYLER with non-probe detection Hussain Younger MD Work Phone: Start: 12-26-2024 Respiratory pathogens DNA and RNA panel - Lower respiratory specimen by TYLER with non-probe detection Margot Carver MD Work Phone: Start: 12-26-2024 Smr prim src gram/giemsa stain bct fungi/cell Lamar Vila MD Work Phone: Start: 12-26-2024 Culture bacterial quanttative colony count urine Lamar Vila MD Work Phone: Start: 12-26-2024 Urinalysis complete panel - Urine Lamar Vila MD Work Phone: Start: 12-26-2024 End: 12-26-2024 Bacteria identified in Blood by Culture Lamar Vila MD Work Phone: Start: 12-26-2024 Blood gases any combination ph pco2 po2 co2 hco3 Lamar Vila MD Work Phone: Start: 12-26-2024 C-reactive protein Lamar Vila MD Work Phone: Start: 12-26-2024 Comprehensive metabolic panel Keely Uye n Juana Vo DO Work Phone: Start: 12-26-2024 Radiologic exam chest single view Lamar Vila MD Work Phone: Start: 12-25-2024 Glucose quantitative blood xcpt reagent strip Devin Eason Lazaro DO Work Phone: Start: 12-25-2024 Ecg routine ecg w/least 12 lds trcg only w/o i&r Devin Eason Lazaro DO Work Phone: Start: 12-25-2024 Radiologic exam chest single view Devin Willis DO Work Phone: Start: 12-25-2024 Glucose quantitative blood xcpt reagent strip Devin Jenaro Willis DO Work Phone: Start: 12-25-2024 Comprehensive metabolic panel Keely Uye n Juana Vo DO Work Phone: Start: 12-24-2024 Ecg routine ecg w/least 12 lds trcg only w/o i&r Caren Young DO Work Phone: Start: 12-24-2024 Blood gases any combination ph pco2 po2 co2 hco3 Keely Kelsey Juana Vo DO Work Phone: Start: 12-24-2024 Comprehensive metabolic panel Keely Uye n Juana Vo DO Work Phone: Start: 12-24-2024 Ecg routine ecg w/least 12 lds trcg only w/o i&r Annmarie Cantu DO Work Phone: Start: 12-23-2024 EXTUBATION Fred Rowe MD Work Phone: Start: 12-23-2024 Radiologic exam chest single view Reeya Elton DO Work Phone: Start: 12-23-2024 Blood gases any combination ph pco2 po2 co2 hco3 Keely Kelsey Juana Vo DO Work Phone: Start: 12-23-2024 Comprehensive metabolic panel Keely Uye n Juana Vo DO Work Phone: Start: 12-23-2024 Ecg routine ecg w/least 12 lds trcg only w/o i&r Annmarie Cantu DO Work Phone: Start: 12-22-2024 Radiologic exam chest single view Reeya Elton DO Work Phone: Start: 12-22-2024 Comprehensive metabolic panel Keely Uye n Juana Vo DO Work Phone: Start: 12-22-2024 Blood gases any combination ph pco2 po2 co2 hco3 Keely Kelsey Juana Vo DO Work Phone: Start: 12-21-2024 Calcium ionized Keely Kelsey Juana Vo DO Work Phone: Start: 12-21-2024 Ecg routine ecg w/least 12 lds trcg only w/o i&r Noni Levine MD Work Phone: Start: 12-21-2024 Comprehensive metabolic panel Keely Uye n Juana Vo DO Work Phone: Start: 12-21-2024 Radiologic exam chest single view Reeya Elton DO Work Phone: Start: 12-21-2024 Blood gases any combination ph pco2 po2 co2 hco3 Keely Kelsey Juana Vo DO Work Phone: Start: 12-20-2024 Radiologic exam chest single view Reeya Elton DO Work Phone: Start: 12-20-2024 Comprehensive metabolic panel Keely Uye n Juana Vo DO Work Phone: Start: 12-20-2024 Blood gases any combination ph pco2 po2 co2 hco3 Keely Kelsey Juana Vo DO Work Phone: Start: 12-19-2024 Drug screen quantitative vancomycin Keely Kelsey Vergara DO Work Phone: Start: 12-19-2024 Comprehensive metabolic panel Keely Brandi Vergara DO Work Phone: Start: 12-19-2024 Manual Differential panel - Blood Keely Vergara DO Work Phone: Start: 12-19-2024 Blood gases any combination ph pco2 po2 co2 hco3 Keely Kelsey Vergara DO Work Phone: Start: 12-19-2024 Radiologic exam chest single view Keely Vergara DO Work Phone: Start: 12-18-2024 Basic metabolic panel calcium total Reeya Elton DO Work Phone: Start: 12-18-2024 Blood count hematocrit Devorah Ribeiroini DO Work Phone: Start: 12-18-2024 Compatibility each unit electronic Ishsabina Zhou DO Work Phone: Start: 12-18-2024 End: 12-18-2024 TRANSFUSE RED BLOOD CELLS Devorah Zhou DO Work Phone: Start: 12-18-2024 Comprehensive metabolic panel Reekathy Skelton al DO Work Phone: Start: 12-18-2024 Radiologic exam chest single view Keely Vergara DO Work Phone: Start: 12-18-2024 Antibody screen JENARO AYERS Comment on above: Performed By: #### [id number] ####Medical Di ivan: CAROLE CID ([id number])[facility] ([facility])[address] [place] [address] Start: 12-18-2024 ABO and Rh group [Type] in Blood by Confirmatory method Devorah Zhou DO Work Phone: Start: 12-18-2024 Blood typing serologic abo Ishveen Abelardo DO Work Phone: Start: 12-18-2024 Blood gases any combination ph pco2 po2 co2 hco3 Keely Kelsey Vergara DO Work Phone: Start: 12-18-2024 Calcium ionized Keely Kelsey Vergara DO Work Phone: Start: 12-17-2024 Thromboplastin time partial plasma/whole blood Keely Kelsey Vergara DO Work Phone: Start: 12-17-2024 Radiologic exam chest single view Keely Kelsey Vergara DO Work Phone: Start: 12-17-2024 Blood gases any combination ph pco2 po2 co2 hco3 Keely Kelsey Vergara DO Work Phone: Start: 12-17-2024 End: 12-17-2024 Comprehensive metabolic panel Noni shields MD Work Phone: Start: 12-17-2024 Manual Differential panel - Blood Keely Vergara DO Work Phone: Start: 12-17-2024 Mri spinal canal cervical w/o & w/contr matrl Ernestine Fernández MD Work Phone: Start: 12-16-2024 Prothrombin time Keely Kelsey Vergara DO Work Phone: Start: 12-16-2024 Thromboplastin time partial plasma/whole blood Keely Kelsey Vergara DO Work Phone: Start: 12-16-2024 Biopsy bone trocar/needle deep Ernestine Fernández MD Work Phone: Start: 12-16-2024 AEROBIC AND ANAEROBIC CULTURE WITH STAIN Ernestine Fernández MD Work Phone: Start: 12-16-2024 Culture bacterial any source anaerobic iso&id Ernestine Fernández MD Work Phone: Start: 12-16-2024 Cytp eval fine needle aspirate interp & report Caitlyn Adamson PA-C Work Phone: Start: 12-16-2024 Radiologic exam chest single view Keely Kelsey Juana Vo DO Work Phone: Start: 12-16-2024 Comprehensive metabolic panel Keely Uye n Juaan Vo DO Work Phone: Start: 12-16-2024 Manual Differential panel - Blood Keely Kelsey Juana Vo DO Work Phone: Start: 12-16-2024 Blood gases any combination ph pco2 po2 co2 hco3 Keely Kelsey Juana Vo DO Work Phone: Start: 12-15-2024 Ct cervical spine w/o contrast material Ernestine Fernández MD Work Phone: Start: 12-15-2024 Thromboplastin time partial plasma/whole blood Keely Kelsey Juana Vo DO Work Phone: Start: 12-15-2024 Mri spinal canal lumbar w/o & w/contr matrl Keely Kelsey Juana Vo DO Work Phone: Start: 12-15-2024 Calcium ionized Keely Kelsey Juana Vo DO Work Phone: Start: 12-15-2024 Drug screen quantitative vancomycin Keely Kelsey Juana Vo DO Work Phone: Start: 12-15-2024 Thromboplastin time partial plasma/whole blood Keely Kelsey Juana Vo DO Work Phone: Start: 12-15-2024 Radiologic exam chest single view Keely Kelsey Juana Vo DO Work Phone: Start: 12-15-2024 Blood gases any combination ph pco2 po2 co2 hco3 Keely Kelsey Juana Vo DO Work Phone: Start: 12-15-2024 Comprehensive metabolic panel Keely Uye n Juana Vo DO Work Phone: Start: 12-14-2024 Thromboplastin time partial plasma/whole blood Keely Kelsey Juana Vo DO Work Phone: Start: 12-14-2024 TTE w or wo fol wcon,Doppler Keely Vergara DO Work Phone: Start: 12-14-2024 Respiratory pathogens DNA and RNA panel - Lower respiratory specimen by TYLER with non-probe detection Keely Vergara DO Work Phone: Start: 12-14-2024 Smr prim src gram/giemsa stain bct fungi/cell Keely Vergara DO Work Phone: Start: 12-14-2024 XR EYE FOREIGN BODY BILATERAL Keely Vergara DO Work Phone: Start: 12-14-2024 Drug screen quantitative vancomycin Keely Vergara DO Work Phone: Start: 12-14-2024 Thromboplastin time partial plasma/whole blood Keely Vergara DO Work Phone: Start: 12-14-2024 ACINETOBACTER BAUMANNII PCR Larry martinez MD Work Phone: Start: 12-14-2024 CHRISTINE AURIS SCREEN Larry Boothe MD Work Phone: Start: 12-14-2024 Radiologic exam chest single view Keely Vergara DO Work Phone: Start: 12-14-2024 Blood gases any combination ph pco2 po2 co2 hco3 Keely Vergara DO Work Phone: Start: 12-14-2024 Comprehensive metabolic panel Keely Vergara DO Work Phone: Start: 12-14-2024 Manual Differential panel - Blood Keely Vergara DO Work Phone: Start: 12-13-2024 Thromboplastin time partial plasma/whole blood Keely Kelsey Vergara DO Work Phone: Start: 12-13-2024 Ct abdomen & pelvis w/contrast material Keely Vergara DO Work Phone: Start: 12-13-2024 Ct head/brain w/o contrast material Keely Vergara DO Work Phone: Start: 12-13-2024 Plain chest X-ray No Primary Care Physician Start: 12-13-2024 Respiratory pathogens DNA and RNA panel - Nasopharynx by TYLER with non-probe detection Keely Vergara DO Work Phone: Start: 12-13-2024 Iadna s aureus methicillin resist amp probe tq Keely Vergara DO Work Phone: Start: 12-13-2024 End: 12-13-2024 Bacteria identified in Blood by Culture Keely Vergara DO Work Phone: Start: 12-13-2024 Blood culture No Primary Care Physician Start: 12-13-2024 Urine culture No Primary Care Physician Start: 12-13-2024 Ecg routine ecg w/least 12 lds trcg only w/o i&r Keely Vergara DO Work Phone: Start: 12-13-2024 Radiologic exam abdomen 1 view Keely Vergara DO Work Phone: Start: 12-13-2024 Blood gases any combination ph pco2 po2 co2 hco3 Keely Vergara DO Work Phone: Start: 12-13-2024 C-reactive protein Keely Veragra DO Work Phone: Start: 12-13-2024 Calcium ionized Keely Kelsey Vergara DO Work Phone: Start: 12-13-2024 Manual Differential panel - Blood Keely Vergara DO Work Phone: Start: 12-13-2024 Culture bacterial quanttative colony count urine Keely Vergara DO Work Phone: Start: 12-13-2024 LEGIONELLA AND STREPTOCOCCUS URINE ANTIGEN, ORDERABLE Keely Vergara DO Work Phone: Start: 12-13-2024 Urinalysis complete panel - Urine Keely Vergara DO Work Phone: Start: 12-13-2024 URINE HOLD CUP Keely Vergara DO Work Phone: Start: 12-13-2024 Radiologic exam chest single view Keely Vergara DO Work Phone: Start: 12-13-2024 Computed tomography of abdomen and pelvis with intravenous contrast No Primary Care Physician Start: 12-13-2024 CT angiography of chest with contrast No Primary Care Physician Start: 12-13-2024 Urine microscopy: red cells No Primary C are Physician Start: 12-13-2024 Urnls dip stick/tablet reagent auto microscopy No Primary Care Physician Start: 12-13-2024 Carbon dioxide measurement, partial pressure No Primary Care Physician Start: 12-13-2024 Gases blood o2 saturation only direct abhinav No Primary Care Physician Start: 12-13-2024 Measurement of partial pressure of oxygen in blood No Primary Care Physician Start: 12-13-2024 Oxygen measurement No Primary Care Physician Start: 12-13-2024 Plain chest X-ray No Primary Care Physician Start: 12-13-2024 Blood count smear mcrscp w/mnl difrntl wbc count No Primary Care Physician Start: 12-13-2024 Calculation of international normalized ratio No Primary Care Physician Start: 12-13-2024 Lymphocyte percent differential count No Primary Care Physician Start: 12-13-2024 Mean corpuscular hemoglobin concentration determination No Primary Care Physician Start: 12-13-2024 Nucleated red blood cell count procedure No Primary Care Physician Start: 12-13-2024 Platelet mean volume determination No Pr imary Care Physician Start: 12-13-2024 Estimated creatinine clearance No Primar y Care Physician Start: 12-11-2024 Blood count smear mcrscp w/mnl difrntl wbc count No Primary Care Physician Start: 12-11-2024 Estimated creatinine clearance No Primar y Care Physician Start: 12-11-2024 Mean corpuscular hemoglobin concentration determination No Primary Care Physician Start: 12-11-2024 Nucleated red blood cell count procedure No Primary Care Physician Start: 12-11-2024 Platelet mean volume determination No Pr imary Care Physician Start: 12-11-2024 Serum inorganic phosphate measurement No Primary Care Physician Start: 12-09-2024 Esophagogastroduodenoscopy No Primary Ca re Physician Start: 12-08-2024 Urine microscopy: red cells No Primary C are Physician Start: 12-08-2024 Urnls dip stick/tablet reagent auto microscopy No Primary Care Physician Start: 12-08-2024 Blood culture No Primary Care Physician Start: 12-08-2024 Urine culture No Primary Care Physician Start: 12-08-2024 Videoswallow No Primary Care Physician Start: 12-07-2024 Plain chest X-ray No Primary Care Physician Start: 12-04-2024 CT of head without contrast No Primary C are Physician Start: 12-04-2024 Blood culture No Primary Care Physician Start: 12-04-2024 SARS-CoV-2, Influenza & RSV (PCR) No Ebony dario Care Physician Start: 12-04-2024 Urine culture No Primary Care Physician Start: 12-04-2024 No Primary Care Physician Start: 12-04-2024 CT of thorax, abdomen and pelvis with contrast No Primary Care Physician Start: 12-04-2024 Assay of lactate No Primary Care Physician Start: 12-04-2024 Calculation of international normalized ratio No Primary Care Physician Start: 11-10-2024 Anion gap measurement No Primary Care Physician Start: 11-10-2024 Blood count smear mcrscp w/mnl difrntl wbc count No Primary Care Physician Start: 11-10-2024 BUN/Creatinine ratio No Primary Care Physician Start: 11-10-2024 Estimated creatinine clearance No Primar y Care Physician Start: 11-10-2024 Mean corpuscular hemoglobin concentration determination No Primary Care Physician Start: 11-10-2024 Measurement of renal function No Primary Care Physician Start: 11-10-2024 Nucleated red blood cell count procedure No Primary Care Physician Start: 11-10-2024 Platelet mean volume determination No Pr imary Care Physician Start: 11-06-2024 Assay of phosphorus inorganic No Primary Care Physician Start: 11-05-2024 Videoswallow No Primary Care Physician Start: 11-04-2024 Iadna-dna/rna gi pthgn multiplex probe tq 6-11 No Primary Care Physician Start: 11-04-2024 Clostridium difficile detection No Prima ry Care Physician Start: 11-04-2024 Nucleic acid assay No Primary Care Physician Start: 11-04-2024 Colonoscopy No Primary Care Physician Start: 11-03-2024 End: 11-03-2024 Plain X-ray abdomen No Primary Care Physician Start: 11-02-2024 Blood culture No Primary Care Physician Start: 11-02-2024 MRI of lumbar spine with contrast No [facility] Physician Start: 11-02-2024 Albumin/Globulin ratio No Primary Care Physician Start: 11-01-2024 X-ray of mandible, four or more views No Primary Care Physician Start: 11-01-2024 Computed tomography of abdomen and pelvis with contrast No Primary Care Physician Start: 10-31-2024 Viral antigen assay No Primary Care Physician Start: 10-30-2024 Assay of lactate No Primary Care Physician Start: 10-30-2024 Carbon dioxide measurement, partial pressure No Primary Care Physician Start: 10-30-2024 Gases blood o2 saturation only direct abhinav No Primary Care Physician Start: 10-30-2024 Measurement of partial pressure of oxygen in blood No Primary Care Physician Start: 10-30-2024 Oxygen measurement No Primary Care Physician Start: 10-30-2024 Benzodiazepine measurement, urine No [facility] Care Physician Start: 10-30-2024 Cocaine measurement, urine No Primary Me re Physician Start: 10-30-2024 Measurement of 3,4-methylenedioxymethamphetamine in urine No Primary Care Physician Start: 10-30-2024 Methadone measurement, urine No Primary Care Physician Start: 10-30-2024 Urine amphetamine measurement No Primary Care Physician Start: 10-30-2024 Urine barbiturate measurement No Primary Care Physician Start: 10-30-2024 Urine cannabinoid measurement No Primary Care Physician Start: 10-30-2024 Urine opiate measurement No Primary Care Physician Start: 10-30-2024 MRI of lumbar spine No Primary Care Physician Start: 10-30-2024 Urine microscopy: red cells No Primary C are Physician Start: 10-30-2024 Urnls dip stick/tablet reagent auto microscopy No Primary Care Physician Start: 10-30-2024 Blood culture No Primary Care Physician Start: 10-30-2024 Identification procedure for living organism No Primary Care Physician Start: 10-30-2024 Nucleic acid assay No Primary Care Physician Start: 01-31-2025 Creatine kinase measurement No Primary C are Physician Start: 10-30-2024 CT of chest, abdomen and pelvis without contrast No Primary Care Physician Start: 10-30-2024 Folic acid measurement No Primary Care Physician Start: 09-25-2024 Evaluation of diagnostic study results No Primary Care Physician Start: 12-05-2023 Urnls dip stick/tablet rgnt auto w/o microscopy Darrius Aguilar MD Work Phone: Start: 11-27-2023 Ct abdomen & pelvis w/o contrst 1/> body re Darrius Aguilar MD Work Phone: Start: 02-28-2017 End: 02-28-2017 Follow [...] Russel Hammer MD Start: 07-21-2014 End: 07-21-2014 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 Start: 07-21-2014 End: 07-26-2014 Echocardiography Russel Hammer MD Start: 07-21-2014 End: 08-31-2014 Electrocardiogram, complete Russel Luevano i, MD Start: 07-21-2014 End: 07-21-2014 Follow Up Appt 6 weeks Russel Hammer MD Hysterectomy MAGED Soares FACP Insertion of hip prosthesis MAGED MEYER MD FACP Tonsillectomy MAGED MEYER MD FACP Plan of Treatment Date Care Activity Detail Author Start: 01-25-2026 Creatinine measurement Creatinine [facility] Start: 01-25-2026 Potassium measurement Potassium Leve l [facility] Start: 01-05-2026 Creatinine measurement Creatinine Le [facility] Start: 01-05-2026 Potassium measurement Potassium Leve l [facility] Start: 12-14-2025 Echocardiography Echocardiogram [facility] Start: 05-31-2025 Influenza vaccination Influenz a Vaccine (Season Ended) [facility] Start: 05-31-2025 [facility] Start: 02-09-2025 End: 02-09-2025 ambulatory [facility] Start: 02-09-2025 End: 02-09-2025 Telemedicine consultation with patient 02/09/2025 2:00 PM EDT Telemedicine [facility] [place] [address] [place] [address] Margot Carver MD [address] [place] [address] [facility] Start: 12-13-[address] [facility] Start: 12-13-2024 Airway suction technique [facility] Start: 12-13-2024 End: 12-13-2024 [facility] Start: 12-13-2024 Creatine kinase [Enz ymatic activity/volume] in Serum or Plasma [facility] Start: 12-13-2024 Triglycerides measurement [facility] Start: 12-13-[address] [facility] Start: 12-11-2024 Patient discharge [facility] Start: 12-11-[address] [facility] Start: 12-08-[address] [facility] Start: 12-08-2024 Blood culture [facility] Start: 12-08-2024 Referral to gastroenterology service [facility] Start: 12-08-2024 Elevation of affecte d extremity [facility] Start: 12-05-2024 Respiratory secretio n precautions [facility] Start: 12-04-2024 Care of central veno us catheter [facility] Start: 12-04-2024 Assessment of risk o f venous thromboembolism [facility] Start: 12-04-2024 Elevation of head of bed [facility] Start: 12-04-2024 Insertion of cathete r into peripheral vein [facility] Start: 12-04-2024 Oxygen therapy [facility] Start: 12-04-2024 Providing care accor ding to standard [facility] Start: 12-04-2024 Referral to occupati onal therapist [facility] Start: 12-04-2024 Referral to service [facility] Start: 12-04-2024 Speech therapy assessment [facility] Start: 12-04-2024 Vital signs measurements [facility] Start: 12-04-2024 CT of head without contrast Brain/Head without Contrast [facility] Start: 12-04-2024 Verification routine [facility] Start: 12-04-2024 Admission procedure [facility] Start: 12-04-2024 Hospital admission, emergency, from emergency room, medical nature [facility] Start: 12-04-2024 Bacteria identified in Blood by Culture Blood Culture [facility] Start: 12-04-2024 Bacteria identified in Urine by Culture Urine Culture [facility] Start: 12-04-2024 End: 12-04-2024 [facility] Start: 12-04-2024 Enteric precautions [facility] Start: 12-04-2024 Continuous positive airway pressure ventilation treatment [facility] Start: 12-04-2024 Patient referral to dietitian [facility] Start: 11-11-2024 Patient discharge [facility] Start: 11-06-[address] [facility] Start: 11-05-[address] [facility] Start: 11-03-2024 Referral to gastroenterology service [facility] Start: 11-02-2024 Care planning and pr oblem solving actions [facility] Start: 11-01-[address] [facility] Start: 10-31-2024 Speech therapy assessment [facility] Start: 10-31-2024 Respiratory secretio n precautions [facility] Start: 10-31-2024 Speech therapy assessment [facility] Start: 10-30-2024 Care planning and pr oblem solving actions [facility] Start: 10-30-2024 Ambulation without limitation [facility] Start: 10-30-2024 Assessment of risk o f venous thromboembolism [facility] Start: 10-30-2024 Insertion of cathete r into peripheral vein [facility] Start: 10-30-2024 Providing care accor ding to standard [facility] Start: 10-30-2024 Referral to occupati onal therapist [facility] Start: 10-30-2024 Referral to service [facility] Start: 10-30-[address] [facility] Start: 10-30-2024 Following clinical p athway protocol [facility] Start: 10-30-2024 Admission procedure [facility] Start: 09-30-2024 Medicare Advantage A nnual Wellness Visit Medicare Advantage Annual Wellness Visit [facility] Start: 09-30-2024 [facility] Start: 05-31-2024 COVID-19 Vaccine ( season) COVID-19 Vaccine ( season) [facility] Start: 05-31-2024 Influenza vaccination Influenza Vacc ine (#1) [facility] Start: 05-31-2024 [facility] Start: 11-12-2023 End: 02-11-2024 CREATININE BLD CREATININE BLD Lab Routine Microscopic hematuria Expected: 11/12/2023, Expires: 02/11/2024 [facility] Work Phone: Comment on above: Expected: 11/12/2023 , Expires: 02/11/2024 Start: 09-30-2023 Advance Directive Discussion Advance Directive Discussion [facility] Start: 09-30-2023 Depression Assessment Depression Ass essment [facility] Start: 05-31-2023 Covid-19 Vaccine () Covid-19 Vaccine () [facility] Start: 05-31-2023 Influenza vaccination Influenza Vacc ine (#1) [facility] Start: 2022 RSV Immunization for Adults (1 - 1-dose 75+ series) RSV Immunization for Adults (1 - 1-dose 75+ series) [facility] Start: 2022 [facility] Start: 09-13-2017 End: 09-13-2017 Appointment Appointment [facility] Work Phone: Start: 07-01-2017 Diabetes Screening Diabetes Screenin g [facility] Start: 02-28-2017 End: 02-28-2017 Appointment Appointment [facility] Work Phone: Start: 02-28-2017 End: 02-28-2017 Follow Up Appt 6 months Follow Up Appt 6 months [facility] Work Phone: Start: 02-28-2017 End: 02-28-2017 MMM MMM [facility] Work Phone: Start: 02-28-2017 End: 02-28-2017 Follow Up Appt 6 months Follow Up Appt 6 months [facility] Work Phone: Start: 02-28-2017 End: 02-28-2017 MMM MMM [facility] Work Phone: Start: 03-13-2016 End: 03-13-2016 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 [facility] Work Phone: Start: 03-13-2016 End: 03-13-2016 Follow Up Appt 6 months Follow Up Appt 6 months [facility] Work Phone: Start: 03-13-2016 End: 03-13-2016 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 [facility] Work Phone: Start: 03-13-2016 End: 03-13-2016 Follow Up Appt 6 months Follow Up Appt 6 months [facility] Work Phone: Start: 03-24-2015 End: 03-24-2015 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 [facility] Work Phone: Start: 03-24-2015 End: 03-24-2015 Follow Up Appt 1 year Follow Up Appt 1 year [facility] Work Phone: Start: 03-24-2015 End: 03-24-2015 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 [facility] Work Phone: Start: 03-24-2015 End: 03-24-2015 Follow Up Appt 1 year Follow Up Appt 1 year [facility] Work Phone: Start: 08-31-2014 End: 08-31-2014 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 [facility] Work Phone: Start: 08-31-2014 End: 08-31-2014 Follow Up Appt 6 months Follow Up Appt 6 months [facility] Work Phone: Start: 08-31-2014 End: 08-31-2014 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 [facility] Work Phone: Start: 08-31-2014 End: 08-31-2014 Follow Up Appt 6 months Follow Up Appt 6 months [facility] Work Phone: Start: 07-21-2014 End: 07-21-2014 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 [facility] Work Phone: Start: 07-21-2014 End: 08-31-2014 Ecg routine ecg w/least 12 lds w/i&r EKG (In office) [facility] Work Phone: Start: 07-21-2014 End: 07-21-2014 Echocardiography Echocardiogram (complete) [facility] Work Phone: Start: 07-21-2014 End: 07-21-2014 Follow Up Appt 6 weeks Follow Up Appt 6 weeks [facility] Work Phone: Start: 07-21-2014 End: 07-21-2014 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 [facility] Work Phone: Start: 07-21-2014 End: 07-21-2014 Echocardiography Echocardiogram (complete) [facility] Work Phone: Start: 07-21-2014 End: 08-31-2014 Electrocardiogram, complete EKG (In office) [facility] Work Phone: Start: 07-21-2014 End: 07-21-2014 Follow Up Appt 6 weeks Follow Up Appt 6 weeks [facility] Work Phone: Start: 01-28-2012 Pneumococcal Vaccine : 65+ (1 of 1 - PCV) Pneumococcal Vaccine: 65+ (1 of 1 - PCV) [facility] Start: 2007 RSV Vaccine (1 - 1-d ose 60+ series) RSV Vaccine (1 - 1-dose 60+ series) [facility] Start: 1997 Pneumococcal Vaccine : 50+ Years (1 of 1 - PCV) Pneumococcal Vaccine: 50+ Years (1 of 1 - PCV) [facility] Start: 1997 Shingrix Vaccine (1 of 2) Kunz grix Vaccine (1 of 2) [facility] Start: 1997 Zoster Vaccines (1 of 2) Zoste r Vaccines (1 of 2) [facility] Start: 1997 [facility] Start: 1966 DTaP/Tdap/Td Vaccine s (1 - Tdap) DTaP/Tdap/Td Vaccines (1 - Tdap) [facility] Start: 1966 Pneumococcal Vaccine : 50+ Years (1 of 2 - PCV) Pneumococcal Vaccine: 50+ Years (1 of 2 - PCV) [facility] Start: 1966 Urine microalbumin profile DTa P,Tdap,Td Vaccine (1 - Tdap) [facility] Start: 1966 [facility] Start: 1965 Hepatitis C screening [facility] Start: 1959 Depression Monitoring Depression Mon [facility] Start: 1959 [facility] Start: 1947 Lipid panel [facility] Start: 1947 Screening for osteoporosis [facility] Bacteria identified in Blood by Culture [facility] End: 01-05-2025 Bacteria identified in Urine by Culture [facility] Work Phone: Comment on above: Once (Lab) for 1 Occ urrences starting 01/05/2025 until 01/05/2025 Clostridioides diffi cile DNA [Presence] in Unspecified specimen by TYLER with probe detection [facility] End: 12-11-2024 CT Kidney WO and W contrast IV CT UROGRAM WO/W IVCON Radiology Routine Microscopic hematuria 1 Occurrences starting 11/12/2023 until 12/11/2024 [facility] Work Phone: Comment on above: 1 Occurrences starti ng 11/12/2023 until 12/11/2024 Cystourethroscopy CYSTO.PANENDO Procedures Routine Microscopic hematuria Ordered: 11/12/2023 [facility] Work Phone: Comment on above: Ordered: 11/12/2023 Nucleic acid assay [facility] Patient Education [facility] Work Phone: Patient referral [facility] Work Phone: Urine culture [facility] Urine culture [facility] End: 12-28-2024 Vancomycin [Mass/volume] in Serum or Plasma --trough [facility] Work Phone: [facility] Immunizations Immunization Date Immunization Notes Care Provider Fa [facility] 07-17-2023 SARS-CoV-2 (COVID-19 ) mRNAMUL.ORD![id number] MAGED MEYER MD FACP [facility] 07-26-2021 SARS-CoV-2 mRNA (tozinameran) vaccine MAGED MEYER MD FACP [facility] 12-27-2020 Covid (Pfizer) Dr. Toribio stearns Work Phone: [facility] 12-05-2020 Covid (Pfizer) Dr. Toribio stearns Work Phone: [facility] Comment on above: Result Comment: 2024: [id number] Payers Date Payer Category Payer Private Health Insurance [id number] 2024 Medicare [id number] 2023 Medicare [id number] 2023 Medicare HMO [id number] 2023 Private Health Insurance [id number] 2023 Self-pay [id number] 1945 Unknown [id number] 2..1.871566.3.579.2.627 1945 Unknown [id number] ..[id number] Medicare [id number] Medicare MEDICARE PART A B [id number] Unknown [id number] 2..1.682475.3.579.2.462 Unknown [id number] 2.0.1.031263.3.579.2.462 Unknown [id number] 2.840.1.914796.3.579.2.462 Unknown [id number] 2..1.739277.3.579.2.462 Unknown [id number] 2.16.840.1.194475.3.579.2.462 Unknown [id number] 2.16.840.1.008418.3.579.2.462 Unknown [id number] 2.16.840.1.506098.3.579.2.462 Unknown [id number] 2.16.840.1.655789.3.579.2.462 Unknown [id number] 2.16.840.1.605465.3.579.2.462 Unknown [id number] 2.16.840.1.406506.3.579.2.462 Unknown [id number] 2.16.840.1.397081.3.579.2.462 Unknown [id number] 2..840.1.438184.3.579.2.462 Unknown [id number] 2.840.1.012255.3.579.2.462 Unknown [id number] 2..840.1.753613.3.579.2.462 Unknown [id number] 2.16.840.1.275009.3.579.2.462 Unknown [id number] 2.16.840.1.630348.3.579.2.462 Unknown [id number] 2.16.840.1.664446.3.579.2.462 Unknown [id number] 2.840.1.935822.3.579.2.462 Unknown [id number] 2.16.840.1.224213.3.579.2.462 Unknown [id number] 2.16.840.1.650839.3.579.2.462 Unknown [id number] 2.16.840.1.503515.3.579.2.462 Unknown [id number] 2.16.840.1.651914.3.579.2.462 Unknown [id number] 2.16.840.1.139427.3.579.2.462 Unknown [id number] 2.16.840.1.626867.3.579.2.462 Unknown [id number] 2.16.840.1.831544.3.579.2.462 Unknown [id number] 2.16.840.1.444499.3.579.2.462 Unknown [id number] 2.16.840.1.941916.3.579.2.462 Unknown [id number] 2.16.840.1.065089.3.579.2.462 Unknown [id number] 2.16.840.1.576825.3.579.2.462 Unknown [id number] 2.16.840.1.151703.3.579.2.462 Unknown [id number] 2.16.840.1.931715.3.579.2.462 Unknown [id number] 2.16.840.1.810534.3.579.2.462 Unknown [id number] 2.16.840.1.479879.3.579.2.462 Unknown [id number] 2.16.840.1.524452.3.579.2.462 Unknown [id number] 2.16.840.1.623250.3.579.2.462 Unknown [id number] 2.16.840.1.338416.3.579.2.462 Unknown [id number] 2.16.840.1.136287.3.579.2.462 Unknown [id number] 2.16.840.1.588174.3.579.2.462 Unknown [id number] 2.16.840.1.864311.3.579.2.462 Unknown [id number] 2.16.840.1.161100.3.579.2.462 Unknown [id number] 2.16.840.1.658651.3.579.2.462 Unknown [id number] 2.16.840.1.096997.3.579.2.462 Unknown [id number] 2.16.840.1.536278.3.579.2.462 Unknown [id number] 2.16.840.1.519662.3.579.2.462 Unknown [id number] 2.16.840.1.597256.3.579.2.462 Unknown [id number] 2.16.840.1.492272.3.579.2.462 Unknown [id number] 2.16.840.1.992674.3.579.2.462 Social History Date Type Detail Facility Start: 07-05-2022 End: 07-25-2023 Tobacco smoking status MSIS Unknown if ever smoked [facility] Start: 1945 Sex Assigned At Female [facility] Start: 05-14-2018 End: 12-13-2024 Tobacco smoking status MSIS Never smoked tobacco [facility] Start: 05-14-2018 Tobacco use and exposure Smoke less tobacco non-user [facility] Start: 05-27-2019 End: 09-18-2022 Alcohol intake Current non-drinker of alcohol (finding) [facility] Start: 05-27-2019 End: 09-18-2022 History of Social function [facility] Start: 05-27-2019 End: 09-18-2022 Tobacco use panel [facility] National Score (1-10 0), lower number is lower risk Not on file [facility] Start: 1945 Sex Assigned At Not on file [facility] Sexual Orientation Viktor lamar [facility] Start: 04-30-2022 End: 11-04-2024 Sex Female (finding) [facility] How often to you hav e a drink containing alcohol? Never [facility] Medical Equipment Procedure Code Equipment Code Equipment Origin al Text Equipment Identifier Dates EGD, with monitored anesthesia care [id number] Start: 12-09-2024 Goals Date Patient Goal Desired Activity /State Functional Status Date Assessment Result Facility 12-11-2024 Functional status Chair [facility] Work Phone: 11-30-2024 Functional Status Total Viktor Hoang [place] 11-30-2024 Functional Status Viktor Hoang [place] 11-30-2024 Functional Status Identified as high risk, Fall ID band on, Room located near nursing station, Bed alert on, Door open, Non-Slip footwear [facility] 11-29-2024 Functional Status Viktor kuhn [facility] 11-29-2024 Functional Status Viktor kuhn [facility] 11-29-2024 Functional Status [facility] 11-29-2024 Functional Status Lunch Percent [address] [place] [address] 11-29-2024 Functional Status Breakfast Percent [facility] 11-29-2024 Functional Status Viktor kuhn [facility] [place] 11-29-2024 Functional Status Done Viktor Garnett [facility] 11-28-2024 Functional Status bilateral knee high removed/off [facility] 11-28-2024 Functional Status Viktor kuhn [facility] [place] 11-28-2024 Functional Status [facility] [place] 11-28-2024 Functional Status Viktor Hoang [place] 11-27-2024 Functional Status Viktor kuhn [facility] [place] 11-26-2024 Functional Status Viktor Hoang [place] 11-26-2024 Functional Status Viktor Hoang [place] 11-25-2024 Functional Status Viktor Hoang [place] 11-25-2024 Functional Status Viktor Hoang [place] 11-24-2024 Functional Status Viktor Hoang [place] 11-23-2024 Functional Status Total Viktor Hoang [place] 11-23-2024 Functional Status Single level home [facility] 11-23-2024 Functional Status Viktoryannick kuhn [facility] 11-23-2024 Functional Status [facility] 11-23-2024 Functional Status Viktor Ho hardytal Viktor [place] 11-22-2024 Functional Status Vik[facility] Ho [facility] 11-22-2024 Functional Status Viktor Ho hardytal [facility] [place] 11-22-2024 Functional Status [facility]tor [facility] 11-21-2024 Functional Status Viktor Ho hattie Hoang [place] 11-21-2024 Functional Status Other: [id number] [facility] 11-21-2024 Functional Status Viktor Ho [facility]al [facility] 11-21-2024 Functional Status [facility] 11-20-2024 Functional Status [facility] 11-20-2024 Functional Status Room check performed [facility] 11-20-2024 Functional Status Viktor Ho hattie [facility] 11-20-2024 Functional Status Total [facility] 11-20-2024 Functional Status Max A [facility] 11-20-2024 Functional Status [facility] 11-19-2024 Functional Status Viktor Ho hattie [facility] 11-19-2024 Functional Status Viktor Ho hattie [facility] 11-19-2024 Functional Status Viktor Ho hattie [facility] 11-19-2024 Functional Status [facility] 11-19-2024 Functional Status bilateral knee high removed/off [facility] 11-18-2024 Functional Status Viktor Ho [facility] 11-18-2024 Functional Status [facility] 11-18-2024 Functional Status 100 [facility] 11-18-2024 Functional Status Viktor Ho hattie [facility] 11-18-2024 Functional Status 15 [facility] 11-18-2024 Functional Status Viktor Ho [facility] 11-17-2024 Functional Status Viktor kuhn [facility] 11-17-2024 Functional Status Preventative D ressing Intervention Foam dressing [facility] 11-16-2024 Functional Status [facility] 11-16-2024 Functional Status Viktor Garnett [facility] 11-15-2024 Functional Status Viktor Garnett [facility] 11-15-2024 Functional Status Done Viktor Garnett [facility] 11-15-2024 Functional Status Viktor Garnett [facility] 11-15-2024 Functional Status Viktor Garnett [facility] 11-14-2024 Functional Status Viktor Garnett [facility] 11-13-2024 Functional Status Viktor Garnett [facility] 11-12-2024 Functional Status Viktor Garnett [facility] 11-12-2024 Functional Status Single level home [facility] 11-12-2024 Functional Status Total Viktor Garnett [facility] 11-12-2024 Functional Status Viktor Garnett [facility] 11-11-2024 Functional status With Assist of 2 [facility] Work Phone: 11-11-2024 Functional status Well [facility] Work Phone: 11-11-2024 Functional Status None Viktor Garnett [facility] 11-09-2024 Functional status None [facility] Work Phone: Mental Status Date Assessment Result Facility 12-11-2024 Cognitive function Voice/Name [facility] Work Phone: 11-30-2024 Mental Status Not oriented to time, Not oriented to situation [facility] 11-29-2024 Mental Status [facility] 11-29-2024 Mental Status [facility] 11-28-2024 [facility] Status [facility] 11-21-2024 Mental Status Orientation Asse ssment Identifies self [facility] 11-20-2024 Mental Status Orientation Not oriented to place, Not oriented to time, Forgetful [facility] 11-20-2024 Mental Status [facility] 11-19-2024 Mental Status [facility] 11-11-2024 Cognitive function Cooperative [facility] Work Phone: 11-11-2024 Cognitive function Voice/Name [facility] Work Phone: Clinical Notes 10-31-2023 to 01-26-2025 Telephone Encounter - Dara Ruth - 01/26/2025 8:20 AM EDTTelephone Encounter - Dara Ruth - 01/26/2025 8:20 AM EDTTelephone Encounter - Margarette Blair MA - 01/22/2025 9:23 AM EDTAttachments Note Date & Type Note Facility 01-26-2025 Telephone encounter Note Name of caller: Gabriela Contact phone number: [phone] Relationship to Patient: [facility] Practice: Infectious Disease Chief Complaint/Reason for Call: Gabriela stated they received the lab orders that were sent yesterday, but have no orders going forward. Please call Gabriela to advise on directives for Claritza. Best time of day caller can be reached: Any Patient advised that office/PCP has 24-48 business hours to return their call: Yes [facility] 01-26-2025 Miscellaneous Notes Name of caller: Gabriela Contact phone number: [phone] [facility] Chief Complaint/Reason for Call: Gabriela stated they received the lab orders that were sent yesterday, but have no orders going forward. Please call Gabriela to advise on directives for Claritza. Best time of day caller can be reached: Any Patient advised that office/PCP has 24-48 business hours to return their call: Yes Gabriela with SNF called and stated patient had a huge turn around in her care and it doing much better. The family has decided against hospice at this time. She is still taking the PO Omnicef and doing great. Gabriela is faxing lab results. Called facility and spoke to Gabriela regarding plan of care, no further recommended PICC placement, and PO Omnicef BID until 02/10 instead if she can take it, no follow up appt. Dr. Carver agrees on hospice recommendation. Gabriela able to read back orders. Hospice is appropriate for this patient. Will await their decision. If she will take PO, can try omnicef 300mg PO BID until her stop date. I would not recommend further PICC line placement. No need for follow up appointment. Received a call from nurse Gabriela from [facility] [phone] regarding pt pulling out her PICC line. She said since the pt has been dc to the facility, the pt has pulled her PICC 4x. They have netted it, used coban, and used a long sleeve but pt still continues to pull PICC. PICC has been placed on both arms multiple times. Pt's confusion waxes and wanes. Per Gabriela, she had a conversation with the pt this morning with pt stating "I'm sorry, I was a bad girl, I can't help it, I don't want it in, but I don't remember pulling it out". Pt had a low grade fever last night but temp is now normal. Family is maybe considering hospice. Dr. Carver, please advise, thank you. documented in this encounter [facility] 01-22-2025 Telephone encounter Note Gabriela with SNF called and stated patient had a huge turn around in her care and it doing much better. The family has decided against hospice at this time. She is still taking the PO Omnicef and doing great. Gabriela is faxing lab results. [facility] 01-22-2025 Miscellaneous Notes Gabrieal with SNF called and stated patient had a huge turn around in her care and it doing much better. The family has decided against hospice at this time. She is still taking the PO Omnicef and doing great. Gabriela is faxing lab results. Called facility and spoke to Gabriela regarding plan of care, no further recommended PICC placement, and PO Omnicef BID until 02/10 instead if she can take it, no follow up appt. Dr. Carver agrees on hospice recommendation. Gabriela able to read back orders. Hospice is appropriate for this patient. Will await their decision. If she will take PO, can try omnicef 300mg PO BID until her stop date. I would not recommend further PICC line placement. No need for follow up appointment. Received a call from nurse Gabriela from [facility] [phone] regarding pt pulling out her PICC line. She said since the pt has been dc to the facility, the pt has pulled her PICC 4x. They have netted it, used coban, and used a long sleeve but pt still continues to pull PICC. PICC has been placed on both arms multiple times. Pt's confusion waxes and wanes. Per Gabriela, she had a conversation with the pt this morning with pt stating "I'm sorry, I was a bad girl, I can't help it, I don't want it in, but I don't remember pulling it out". Pt had a low grade fever last night but temp is now normal. Family is maybe considering hospice. Dr. Carver, please advise, thank you. documented in this encounter [facility] 01-12-2025 Note Called facility and spoke to Gabriela regarding plan of care, no further recommended PICC placement, and PO Omnicef BID until 02/10 instead if she can take it, no follow up appt. Dr. Carver agrees on hospice recommendation. Gabriela able to read back orders. [facility] 01-12-2025 Telephone encounter Note Called facility and spoke to Gabriela regarding plan of care, no further recommended PICC placement, and PO Omnicef BID until 02/10 instead if she can take it, no follow up appt. Dr. Carver agrees on hospice recommendation. Gabriela able to read back orders. [facility] 01-12-2025 Telephone encounter Note Hospice is appropriate for this patient. Will await their decision. If she will take PO, can try omnicef 300mg PO BID until her stop date. I would not recommend further PICC line placement. No need for follow up appointment. [facility] Work Phone: 01-11-2025 Telephone encounter Note Received a call from nurse Ochoa from [facility] [phone] regarding pt pulling out her PICC line. She said since the pt has been dc to the facility, the pt has pulled her PICC 4x. They have netted it, used coban, and used a long sleeve but pt still continues to pull PICC. PICC has been placed on both arms multiple times. Pt's confusion waxes and wanes. Per Gabriela, she had a conversation with the pt this morning with pt stating "I'm sorry, I was a bad girl, I can't help it, I don't want it in, but I don't remember pulling it out". Pt had a low grade fever last night but temp is now normal. Family is maybe considering hospice. Dr. Carver, please advise, thank you. [facility] 01-05-2025 Emergency department Note Pt heart rate continues to be elevated in the 140s despite 1L NS bolus. Notified provider. [facility] 01-05-2025 Emergency department Note Pt heart rate continues to be elevated in the 140s despite 1L NS bolus. Notified provider. ELDER Blackwell from [facility] called for update on pt. This RN gave report and advised will call back when disposition available. This RN notified providers of patients HR being elevated in 140's. Per primary nurse patients HR has been elevated in this range. Provider came to bedside. Per provider will order an EKG and administer a normal saline bolus. Primary nurse made aware. This RN entered pt room and found pt gown removed and pt laying naked in bed. Pt removed L wrist PIV and unwrapped the gauze that was wrapped around PICC line. Pt also had dressing around g-tube disheveled. Notified lost charge card clerk. PICC line did not appear to be out of place; blood return noted and line flushed appropriately. Pt presents from [facility] with EMS for complaint of "pulled out PICC line." Reviewed facility paper work, pt new to facility with recent dx of osteomyelitis and pneumonia with IV rocephin on NOV. EMS reported pt was tachycardic, HR 106 upon arrival. EMS started peripheral IV and gave a liter of NS bolus for "soft BP." Pt with diarrhea upon arrival, puentes cath in place, PEG tube right side abdomen. Pt also with bandage on the left upper arm. EMERGENCY DEPARTMENT ENCOUNTER Pt Name: Claritza Burton Birthdate 1945 Date of evaluation: 01/05/2025 ED Provider: Jaswant Richey DO CHIEF COMPLAINT Chief Complaint Patient presents with Vascular Access Problem HISTORY OF PRESENT ILLNESS (Location/Symptom, Timing/Onset, Context/Setting, Quality, Duration, Modifying Factors, Severity) Note limiting factors. I wore appropriate PPE for the entirety of this encounter. HPI Claritza Burton is a 79 y.o. who presents to the emergency department with chief complaint of dislodged PICC line. Patient is currently at a nursing facility receiving IV antibiotics through her PICC line for vertebral osteomyelitis. Is receiving IV Rocephin as well as doxycycline through her PEG tube. Her PICC line was pulled out this morning so they sent her in for management. Patient was found to have soft blood pressure and tachycardia at her nursing facility. She does not endorse any symptoms. Family at the bedside also does not have any acute concerns. Nursing Notes were reviewed. Limitations to history: None Outside historians: Family REVIEW OF SYSTEMS Review of Systems Pertinent positives and negatives as per HPI. PAST MEDICAL HISTORY Past Medical History: Diagnosis Date Anxiety Cancer (CMS/HCC) (HCC) Cerebral palsy ([facility]) 1946 Frequent urination Headache Hypertension Palpitations SURGICAL HISTORY Past Surgical History: Procedure Laterality Date BLADDER SURGERY 2009 EYE SURGERY cataract HIP FRACTURE SURGERY Left 2000 HYSTERECTOMY ORTHOPEDIC SURGERY TONSILLECTOMY (HISTORICAL) CURRENT MEDICATIONS Current Discharge Medication List CONTINUE these medications which have NOT CHANGED Details acetaminophen (Tylenol) 325 MG tablet 325 mg by Per G Tube route every 4 hours as needed for mild pain (1-3). For 14 days end 12/26/2024 amLODIPine (Norvasc) 5 MG tablet Take 5 mg by mouth daily. apixaban (Eliquis) 5 MG tablet 5 mg by Per G Tube route 2 times daily. cholecalciferol (Vitamin D3) 25 MCG (1000 UT) tablet 1,000 Units by Per G Tube route daily. dextran 70-hypromellose (artificial tears) 0.1-0.3 % ophthalmic solution Administer 2 drops into both eyes 3 times daily. ferrous sulfate 325 (65 Fe) MG tablet 325 mg by Per G Tube route 2 times daily. lisinopril 20 MG tablet 20 mg by Per G Tube route daily. metoprolol succinate XL (Toprol-XL) 50 MG 24 hr tablet Take 50 mg by mouth daily. Do not crush or chew. metoprolol tartrate (Lopressor) 25 MG tablet 25 mg by Per G Tube route 2 times daily. polyethylene glycol, PEG, 3350 (Miralax) 17 g packet 17 g daily. Via PEG TUBE pregabalin (Lyrica) 50 MG capsule 50 mg by Per G Tube route 3 times daily. risperiDONE (RisperDAL) 0.5 MG tablet 0.5 mg by Per G Tube route Nightly. AT BEDTIME senna-docusate sodium (Senokot-S) 8.6-50 MG tablet 1 tablet by Per G Tube route 2 times daily. tamsulosin (Flomax) 0.4 MG 24 hr capsule Take 0.4 mg by mouth daily. VIA PEG TUBE ALLERGIES Amantadine, Amoxicillin-pot clavulanate, Amoxicillin, Erythromycin, Erythromycin base, and Lorazepam FAMILY HISTORY Family History Problem Relation Name Age of Onset Cancer Mother Diabetes Father SOCIAL HISTORY Social History Socioeconomic History Marital status: Single Tobacco Use Smoking status: Never Smokeless tobacco: Never Substance and Sexual Activity Alcohol use: No Drug use: No SCREENINGS PHYSICAL EXAM ED Triage Vitals [01/05/25 1200] Temp Heart Rate Resp BP 36.4 C (97.6 F) 106 18 107/65 SpO2 Temp Source Heart Rate Source Patient Position 100 % Oral Monitor Lying BP Location FiO2 (%) Left arm -- Physical Exam Vitals and nursing note reviewed. Constitutional: General: She is not in acute distress. Appearance: She is well-developed. She is ill-appearing (chronically). She is not toxic-appearing. HENT: Head: Normocephalic and atraumatic. Nose: Nose normal. Cardiovascular: Rate and Rhythm: Regular rhythm. Tachycardia present. Pulses: Normal pulses. Heart sounds: Normal heart sounds. Pulmonary: Effort: Pulmonary effort is normal. No respiratory distress. Breath sounds: Normal breath sounds. Abdominal: General: There is no distension. Palpations: Abdomen is soft. Tenderness: There is no abdominal tenderness. Comments: PEG without signs of infection Musculoskeletal: General: Normal range of motion. Cervical back: Normal range of motion and neck supple. Skin: General: Skin is warm and dry. Capillary Refill: Capillary refill takes less than 2 seconds. Neurological: General: No focal deficit present. Mental Status: She is alert. Mental status is at baseline. DIAGNOSTIC RESULTS Procedures/EKG: EKG was reviewed by myself. Physician EKG interpretation can be found in [facility] RADIOLOGY (Per Emergency Physician): Interpretation per the Radiologist below, if available at the time of this note: IR CVC picc placement Final Result 1. Successful placement of a right-sided PICC line as detailed above. The distal tip is in the SVC and it is ready for use. 2. This Power PICC is designed to tolerate power injections (as in CT). Report Dictated on Electronically Signed By: Fabricio Zepeda MD Electronically Signed Date/Time: 01/05/2025 4:46 PM EDT XR chest 1 view Final Result Left-sided PICC line is no longer visible. Degenerative changes of the thoracic spine and shoulders Report Dictated on Electronically Signed By: Noni Hermosillo MD Electronically Signed Date/Time: 01/05/2025 2:10 PM EDT ED BEDSIDE ULTRASOUND: Performed by ED Physician - none LABS: Labs Reviewed CBC WITH AUTO DIFFERENTIAL - Abnormal Result Value Auto WBC 10.4 RBC 3.55 (*) Hemoglobin 10.2 (*) Hematocrit 32.6 (*) MCV 91.8 MCH 28.7 MCHC 31.3 RDW 15.6 (*) Platelets 476 (*) MPV 10.1 nRBC 0.0 Neutrophils Relative 63.2 Lymphocytes Relative 25.4 Monocytes Relative 9.2 Eosinophils Relative 0.7 Basophils Relative 0.5 Immature Grans % 1.0 Neutrophils Absolute 6.6 Lymphocytes Absolute 2.6 Monocytes Absolute 1.0 (*) Eosinophils Absolute 0.1 Basophils Absolute 0.1 Immature Grans Absolute 0.1 (*) BASIC METABOLIC PANEL - Abnormal SODIUM 138 POTASSIUM 4.5 CHLORIDE 103 CARBON DIOXIDE 25 UREA NITROGEN 22 CREATININE 0.46 (*) GLUCOSE 109 CALCIUM 8.8 ANION GAP 10 eGFR >90.0 LACTIC ACID WITH REFLEX - Normal LACTIC ACID 1.0 BLOOD CULTURE BLOOD CULTURE COMPLETE URINALYSIS WITH REFLEX TO CULTURE Narrative: The following orders were created for panel order Complete Urinalysis with reflex to Culture. Procedure Abnormality Status --------- ------ Complete Urinalysis[[id number]] Please view results for these tests on the individual orders. COMPLETE URINALYSIS All other labs were within normal range or not returned as of this dictation. EMERGENCY DEPARTMENT COURSE and DIFFERENTIAL DIAGNOSIS/MDM: Vitals: Vitals: 01/05/25 1624 01/05/25 1624 01/05/25 1629 01/05/25 1634 BP: BP Location: Patient Position: Pulse: (!) 144 (!) 141 (!) 140 Resp: Temp: TempSrc: SpO2: 99% 99% 100% Diagnoses as of 01/06/25 0214 Status post peripherally inserted central catheter (PICC) central line placement Urinary tract infection associated with indwelling urethral catheter, initial encounter (HCC) Tachycardia The patient presented with chief complaint of dislodged PICC line. The differential diagnosis associated with this patient's presentation includes dislodged PICC line, sepsis. Our workup consisted of ordering/reviewing: Labs and antibiotics. Patient is in agreement with this plan. Medications chlorhexidine (Hibiclens) 4 % solution (has no administration in time range) sodium chloride 0.9% (NS) flush 10 mL (has no administration in time range) sodium chloride 0.9% (NS) flush 10 mL (has no administration in time range) doxycycline (Vibramycin) 100 mg in sodium chloride 0.9 % 100 mL IVPB (has no administration in time range) sodium chloride 0.9 % bolus 1,000 mL (1,000 mL IntraVENous New Bag 01/05/25 1719) cefTRIAXone (Rocephin) 1,000 mg in sodium chloride 0.9 % 50 mL IVPB Mini-Bag Plus (1,000 mg IntraVENous New Bag 01/05/25 1720) lidocaine PF (Xylocaine) 2 % injection (5 mL Infiltration Given 01/05/25 1625) REVAL: 79-year-old female presenting to the ED from her nursing facility for a dislodged PICC line this morning. Was receiving Rocephin. An IV was placed and patient was given a dose of IV Rocephin. Will also order her doxycycline dose. Given her tachycardia and soft blood pressure we did obtain labs with lactic and cultures. No leukocytosis or elevated lactate. Low concern for acute septic process. Patient tachycardic however was given IV fluids and did have improvement. Her blood pressure was stable in the ED. PICC team was consulted and replaced the PICC line. Patient will be discharged to her nursing facility and will continue IV antibiotics. CRITICAL CARE TIME CONSULTS: None PROCEDURES: Unless otherwise noted below, none Procedures Patients symptoms are consistent with sepsis, severe sepsis, or septic shock (If yes use ".sepsiscoremeasure"): FINAL IMPRESSION 1. Status post peripherally inserted central catheter (PICC) central line placement DISPOSITION Discharge 01/05/2025 07:20:26 PM PATIENT REFERRED TO: Jenaro Ayers MD [address] [facility] [address] [facility] [id number] DISCHARGE MEDICATIONS: Current Discharge Medication List (Comment: Please note this report has been produced using speech recognition software and may contain errors related to that system including errors in grammar, punctuation, and spelling, as well as words and phrases that may be inappropriate. If there are any questions or concerns please feel free to contact the dictating provider for clarification.) Jaswant Richey DO (electronically signed) Emergency Medicine Provider Jaswant Richey DO 01/05/251924 Emergency Department Encounter Location: [facility] ED Patient: Claritza Burton : 1945 Date of evaluation: 01/05/2025 ED Provider: Jesus Manuel Juan, DO Time received sign-out: 2199 Claritza Burton was checked out to me by Dr. Richey. Please see his/her initial documentation for details of the patient's initial ED presentation, physical exam and completed studies. In brief, Claritza Burton is a 79 y.o. adult that presented to the emergency department after she accidentally dislodged her PICC line at her half-way facility. Is in the half-way facility for PICC line antibiotics due to vertebral osteomyelitis, recent prolonged hospitalization. Currently is a DNR CCA, DNI at the [facility]. Today she is oriented at baseline. Staff at the SNF is also concerned about soft blood pressures and tachycardia. I have reviewed and interpreted all of the currently available lab results and diagnostics from this visit: Results for orders placed or performed during the hospital encounter of 01/05/25 Blood culture Site #2 - Suspected Infection Collection Time: 01/05/25 3:43 PM Specimen: Blood, Venous Result Value Ref Range Blood Culture Blood culture incubation started CBC auto differential Collection Time: 01/05/25 3:43 PM Result Value Ref Range Auto WBC 10.4 3.6 - 10.7 10*3/uL RBC 3.55 (L) 3.80 - 5.20 10*6/uL Hemoglobin 10.2 (L) 11.7 - 16.0 g/dL Hematocrit 32.6 (L) 35.0 - 47.0 % MCV 91.8 77.0 - 99.0 fL MCH 28.7 26.0 - 34.0 pg MCHC 31.3 30.5 - 36.0 % RDW 15.6 (H) 11.5 - 15.0 % Platelets 476 (H) 140 - 440 10*3/uL MPV 10.1 9.0 - 12.7 fL nRBC 0.0 0.0 - 2.0 /100 WBCs Neutrophils Relative 63.2 38.0 - 82.0 % Lymphocytes Relative 25.4 15.0 - 45.0 % Monocytes Relative 9.2 5.0 - 13.0 % Eosinophils Relative 0.7 0.0 - 6.0 % Basophils Relative 0.5 0.0 - 2.0 % Immature Grans % 1.0 0.0 - 2.0 % Neutrophils Absolute 6.6 1.8 - 7.5 10*3/uL Lymphocytes Absolute 2.6 1.0 - 4.3 10*3/uL Monocytes Absolute 1.0 (H) 0.0 - 0.9 10*3/uL Eosinophils Absolute 0.1 0.0 - 0.5 10*3/uL Basophils Absolute 0.1 0.0 - 0.2 10*3/uL Immature Grans Absolute 0.1 (H) <0.1 10*3/uL Basic metabolic panel Collection Time: 01/05/25 3:43 PM Result Value Ref Range SODIUM 138 136 - 145 mmol/L POTASSIUM 4.5 3.5 - 5.1 mmol/L CHLORIDE 103 98 - 107 mmol/L CARBON DIOXIDE 25 23 - 31 mmol/L UREA NITROGEN 22 9 - 23 mg/dL CREATININE 0.46 (L) 0.57 - 1.11 mg/dL GLUCOSE 109 82 - 115 mg/dL CALCIUM 8.8 8.8 - 10.0 mg/dL ANION GAP 10 3 - 13 mmol/L eGFR >90.0 >60.0 mL/min/1.73m*2 Blood culture Site #1 - Suspected Infection Collection Time: 01/05/25 3:50 PM Specimen: Blood, Venous Result Value Ref Range Blood Culture Blood culture incubation started Lactic acid with reflex Collection Time: 01/05/25 3:50 PM Result Value Ref Range LACTIC ACID 1.0 0.5 - 2.2 mmol/L ECG 12 lead Collection Time: 01/05/25 10:29 PM Result Value Ref Range Heart Rate 141 bpm QRSD Interval 77 ms QT Interval 291 ms QTC Interval 445 ms P [place] 48 degrees QRS [place] 9 degrees T Wave [place] 69 degrees MT Interval 130 ms IR CVC picc placement Final Result 1. Successful placement of a right-sided PICC line as detailed above. The distal tip is in the SVC and it is ready for use. 2. This Power PICC is designed to tolerate power injections (as in CT). Report Dictated on Electronically Signed By: Fabricio Zepeda MD Electronically Signed Date/Time: 01/05/2025 4:46 PM EDT XR chest 1 view Final Result Left-sided PICC line is no longer visible. Degenerative changes of the thoracic spine and shoulders Report Dictated on Electronically Signed By: Noni Hermosillo MD Electronically Signed Date/Time: 01/05/2025 2:[address] chest angiogram w and/or wo IV contrast (Results Pending) Final ED Course and MDM: Claritza Burton is a 79 y.o. whose care was signed out to me by the outgoing provider. In brief, patient who was sent in just to have her PICC line replaced. Patient was tachycardic in the emergency room to the 140s, blood pressure normal, basic lab work obtained, no lactic acidosis or leukocytosis, normal BMP. After the PICC line was placed, patient was given her IV doses of antibiotics that she is on for the osteomyelitis, initially we were hopeful that the blood pressure would respond with fluids after the PICC line was placed, unfortunately after liter of fluid she is still tachycardic in the 140s. Workup expanded to include EKG, troponin, CTA of the chest and a second liter of fluids. EKG is in a sinus tachycardia. The rest the lab work and imaging that I added on is still pending, signed to oncoming provider pending troponin and CTA results, heart rate reassessment after second liter of fluids and final disposition. Medications chlorhexidine (Hibiclens) 4 % solution (has no administration in time range) sodium chloride 0.9% (NS) flush 10 mL (10 mL IntraCATHeter Not Given 01/05/25 1640) sodium chloride 0.9% (NS) flush 10 mL (has no administration in time range) sodium chloride 0.9 % bolus 1,000 mL (1,000 mL IntraVENous New Bag 01/05/255) sodium chloride 0.9 % bolus 1,000 mL (0 mL IntraVENous Stopped 01/05/251818) cefTRIAXone (Rocephin) 1,000 mg in sodium chloride 0.9 % 50 mL IVPB Mini-Bag Plus (0 mg IntraVENous Stopped 01/05/251942) lidocaine PF (Xylocaine) 2 % injection (5 mL Infiltration Given 01/05/25 162) doxycycline (Vibramycin) 100 mg in sodium chloride 0.9 % 100 mL IVPB (0 mg IntraVENous Stopped 01/05/252013) Final Impression 1. Status post peripherally inserted central catheter (PICC) central line placement DISPOSITION 01/05/2025 10:13:09 PM (Please note that portions of this note may have been completed with a voice recognition program. Efforts were made to edit the dictations but occasionally words are mis-transcribed.) Jesus Manuel Juan DO [employer] Jesus Manuel Juan DO 01/05/25 6422 This patient was signed out to me by the previous provider. Please see their note for further HPI and patient care. In summary this is a 79-year-old female who presented from her nursing facility for PICC line replacement after was accidentally dislodged. She is on IV antibiotics through PICC line due to vertebral osteomyelitis and noted to have a recent prolonged hospitalization. Currently DNR CCA/DNI at the half-way facility. Patient got the PICC line and then was found to be tachycardic more from her baseline. She is in the 140s. Setting sinus tachycardia. Broad workup ended up being initiated in the emergency department to evaluate for infectious process. She had a CTA pending here in the emergency department and then was signed out to me. Urinalysis does show signs of infection, patient already received Rocephin here in the emergency department which will treat this. There was some mild blood in the urine so I did add on a CT scan of abdomen pelvis just to ensure that there is no infected kidney stone that could be causing her tachycardia. She denies any pain. She is afebrile. Review her medication list she is on metoprolol twice a day for palpitations. I did give her her home dose of metoprolol to see if that will help her tachycardia. Tachycardia significantly improved. I think that this was all secondary to having missed her daily meds. Patient is agreeable to discharge. Given strict return precautions and discharged in stable condition. Cheryl Negrete MD 01/06/25 0215 documented in this encounter [facility] 01-05-2025 Emergency department Note ELDER Blackwell from [facility] called for update on pt. This RN gave report and advised will call back when disposition available. [facility] 01-05-2025 Emergency department Note This RN notified providers of patients HR being elevated in 140's. Per primary nurse patients HR has been elevated in this range. Provider came to bedside. Per provider will order an EKG and administer a normal saline bolus. Primary nurse made aware. [facility] 01-05-2025 Emergency department Note This RN entered pt room and found pt gown removed and pt laying naked in bed. Pt removed L wrist PIV and unwrapped the gauze that was wrapped around PICC line. Pt also had dressing around g-tube disheveled. Notified lost charge card clerk. PICC line did not appear to be out of place; blood return noted and line flushed appropriately. [facility] 01-05-2025 Hospital Discharg e instructions Jaswant Richey DO - 01/05/2025 7:21 PM EDT Continue antibiotics as scheduled. Follow up with your primary doctor for reevaluation. Return to the ER for worsening symptoms. documented in this encounter [facility] 01-05-2025 Nurse Note Interventional Radiology Post Procedure: Claritza tolerated the placing of her PICC. It is 41cm long, 0 exposed, arm circumference is 25cm. Stat Lock in place. Dressing is dry and intact. No bleeding. No hematoma. She is confused, but is in no distress. Transfer back to the ER, bedside report given there. [facility] 01-05-2025 Nurse Note Interventional Radiology Post Procedure: Claritza tolerated the placing of her PICC. It is 41cm long, 0 exposed, arm circumference is 25cm. Stat Lock in place. Dressing is dry and intact. No bleeding. No hematoma. She is confused, but is in no distress. Transfer back to the ER, bedside report given there. IR Procedures: Claritza is here from the ER at [facility] for a PICC placement . Her HR is 145 bpm. She is confused but understands the procedural instructions. Dr. Zepeda has spoken to her. History, allergies, medications and lab results reviewed. Informed consent obtained over the phone from her sister. Prepped and draped in sterile fashion. Time out performed. She is on a monitor. Patient ready for the procedure. IR is ready. documented in this encounter [facility] 01-05-2025 Nurse Note IR Procedures: Claritza is here from the ER at [facility] for a PICC placement . Her HR is 145 bpm. She is confused but understands the procedural instructions. Dr. Zepeda has spoken to her. History, allergies, medications and lab results reviewed. Informed consent obtained over the phone from her sister. Prepped and draped in sterile fashion. Time out performed. She is on a monitor. Patient ready for the procedure. IR is ready. [facility] 01-05-2025 Emergency department Triage note Pt presents from [facility] with EMS for complaint of "pulled out PICC line." Reviewed facility paper work, pt new to facility with recent dx of osteomyelitis and pneumonia with IV rocephin on NOV. EMS reported pt was tachycardic, HR 106 upon arrival. EMS started peripheral IV and gave a liter of NS bolus for "soft BP." Pt with diarrhea upon arrival, puentes cath in place, PEG tube right side abdomen. Pt also with bandage on the left upper arm. [facility] 01-05-2025 Physician Emergency department Note EMERGENCY DEPARTMENT ENCOUNTER Pt Name: Claritza Burton Birthdate 1945 Date of evaluation: 01/05/2025 ED Provider: Jaswant Richey DO CHIEF COMPLAINT Chief Complaint Patient presents with Vascular Access Problem HISTORY OF PRESENT ILLNESS (Location/Symptom, Timing/Onset, Context/Setting, Quality, Duration, Modifying Factors, Severity) Note limiting factors. I wore appropriate PPE for the entirety of this encounter. HPI Claritza Burton is a 79 y.o. who presents to the emergency department with chief complaint of dislodged PICC line. Patient is currently at a nursing facility receiving IV antibiotics through her PICC line for vertebral osteomyelitis. Is receiving IV Rocephin as well as doxycycline through her PEG tube. Her PICC line was pulled out this morning so they sent her in for management. Patient was found to have soft blood pressure and tachycardia at her nursing facility. She does not endorse any symptoms. Family at the bedside also does not have any acute concerns. Nursing Notes were reviewed. Limitations to history: None Outside historians: Family REVIEW OF SYSTEMS Review of Systems Pertinent positives and negatives as per HPI. PAST MEDICAL HISTORY Past Medical History: Diagnosis Date Anxiety Cancer (CMS/HCC) (HCC) Cerebral palsy ([facility]) 1946 Frequent urination Headache Hypertension Palpitations SURGICAL HISTORY Past Surgical History: Procedure Laterality Date BLADDER SURGERY 2009 EYE SURGERY cataract HIP FRACTURE SURGERY Left 2000 HYSTERECTOMY ORTHOPEDIC SURGERY TONSILLECTOMY (HISTORICAL) CURRENT MEDICATIONS Current Discharge Medication List CONTINUE these medications which have NOT CHANGED Details acetaminophen (Tylenol) 325 MG tablet 325 mg by Per G Tube route every 4 hours as needed for mild pain (1-3). For 14 days end 12/26/2024 amLODIPine (Norvasc) 5 MG tablet Take 5 mg by mouth daily. apixaban (Eliquis) 5 MG tablet 5 mg by Per G Tube route 2 times daily. cholecalciferol (Vitamin D3) 25 MCG (1000 UT) tablet 1,000 Units by Per G Tube route daily. dextran 70-hypromellose (artificial tears) 0.1-0.3 % ophthalmic solution Administer 2 drops into both eyes 3 times daily. ferrous sulfate 325 (65 Fe) MG tablet 325 mg by Per G Tube route 2 times daily. lisinopril 20 MG tablet 20 mg by Per G Tube route daily. metoprolol succinate XL (Toprol-XL) 50 MG 24 hr tablet Take 50 mg by mouth daily. Do not crush or chew. metoprolol tartrate (Lopressor) 25 MG tablet 25 mg by Per G Tube route 2 times daily. polyethylene glycol, PEG, 3350 (Miralax) 17 g packet 17 g daily. Via PEG TUBE pregabalin (Lyrica) 50 MG capsule 50 mg by Per G Tube route 3 times daily. risperiDONE (RisperDAL) 0.5 MG tablet 0.5 mg by Per G Tube route Nightly. AT BEDTIME senna-docusate sodium (Senokot-S) 8.6-50 MG tablet 1 tablet by Per G Tube route 2 times daily. tamsulosin (Flomax) 0.4 MG 24 hr capsule Take 0.4 mg by mouth daily. VIA PEG TUBE ALLERGIES Amantadine, Amoxicillin-pot clavulanate, Amoxicillin, Erythromycin, Erythromycin base, and Lorazepam FAMILY HISTORY Family History Problem Relation Name Age of Onset Cancer Mother Diabetes Father SOCIAL HISTORY Social History Socioeconomic History Marital status: Single Tobacco Use Smoking status: Never Smokeless tobacco: Never Substance and Sexual Activity Alcohol use: No Drug use: No SCREENINGS PHYSICAL EXAM ED Triage Vitals [01/05/25 1200] Temp Heart Rate Resp BP 36.4 C (97.6 F) 106 18 107/65 SpO2 Temp Source Heart Rate Source Patient Position 100 % Oral Monitor Lying BP Location FiO2 (%) Left arm -- Physical Exam Vitals and nursing note reviewed. Constitutional: General: She is not in acute distress. Appearance: She is well-developed. She is ill-appearing (chronically). She is not toxic-appearing. HENT: Head: Normocephalic and atraumatic. Nose: Nose normal. Cardiovascular: Rate and Rhythm: Regular rhythm. Tachycardia present. Pulses: Normal pulses. Heart sounds: Normal heart sounds. Pulmonary: Effort: Pulmonary effort is normal. No respiratory distress. Breath sounds: Normal breath sounds. Abdominal: General: There is no distension. Palpations: Abdomen is soft. Tenderness: There is no abdominal tenderness. Comments: PEG without signs of infection Musculoskeletal: General: Normal range of motion. Cervical back: Normal range of motion and neck supple. Skin: General: Skin is warm and dry. Capillary Refill: Capillary refill takes less than 2 seconds. Neurological: General: No focal deficit present. Mental Status: She is alert. Mental status is at baseline. DIAGNOSTIC RESULTS Procedures/EKG: EKG was reviewed by myself. Physician EKG interpretation can be found in [facility] RADIOLOGY (Per Emergency Physician): Interpretation per the Radiologist below, if available at the time of this note: IR CVC picc placement Final Result 1. Successful placement of a right-sided PICC line as detailed above. The distal tip is in the SVC and it is ready for use. 2. This Power PICC is designed to tolerate power injections (as in CT). Report Dictated on Electronically Signed By: Fabricio Zepeda MD Electronically Signed Date/Time: 01/05/2025 4:46 PM EDT XR chest 1 view Final Result Left-sided PICC line is no longer visible. Degenerative changes of the thoracic spine and shoulders Report Dictated on Electronically Signed By: Noni Hermosillo MD Electronically Signed Date/Time: 01/05/2025 2:10 PM EDT ED BEDSIDE ULTRASOUND: Performed by ED Physician - none LABS: Labs Reviewed CBC WITH AUTO DIFFERENTIAL - Abnormal Result Value Auto WBC 10.4 RBC 3.55 (*) Hemoglobin 10.2 (*) Hematocrit 32.6 (*) MCV 91.8 MCH 28.7 MCHC 31.3 RDW 15.6 (*) Platelets 476 (*) MPV 10.1 nRBC 0.0 Neutrophils Relative 63.2 Lymphocytes Relative 25.4 Monocytes Relative 9.2 Eosinophils Relative 0.7 Basophils Relative 0.5 Immature Grans % 1.0 Neutrophils Absolute 6.6 Lymphocytes Absolute 2.6 Monocytes Absolute 1.0 (*) Eosinophils Absolute 0.1 Basophils Absolute 0.1 Immature Grans Absolute 0.1 (*) BASIC METABOLIC PANEL - Abnormal SODIUM 138 POTASSIUM 4.5 CHLORIDE 103 CARBON DIOXIDE 25 UREA NITROGEN 22 CREATININE 0.46 (*) GLUCOSE 109 CALCIUM 8.8 ANION GAP 10 eGFR >90.0 LACTIC ACID WITH REFLEX - Normal LACTIC ACID 1.0 BLOOD CULTURE BLOOD CULTURE COMPLETE URINALYSIS WITH REFLEX TO CULTURE Narrative: The following orders were created for panel order Complete Urinalysis with reflex to Culture. Procedure Abnormality Status --------- ------ Complete Urinalysis[[id number]] Please view results for these tests on the individual orders. COMPLETE URINALYSIS All other labs were within normal range or not returned as of this dictation. EMERGENCY DEPARTMENT COURSE and DIFFERENTIAL DIAGNOSIS/MDM: Vitals: Vitals: 01/05/25 1624 01/05/25 1624 01/05/25 1629 01/05/25 1634 BP: BP Location: Patient Position: Pulse: (!) 144 (!) 141 (!) 140 Resp: Temp: TempSrc: SpO2: 99% 99% 100% Diagnoses as of 01/06/25 0214 Status post peripherally inserted central catheter (PICC) central line placement Urinary tract infection associated with indwelling urethral catheter, initial encounter ([facility]) Tachycardia The patient presented with chief complaint of dislodged PICC line. The differential diagnosis associated with this patient's presentation includes dislodged PICC line, sepsis. Our workup consisted of ordering/reviewing: Labs and antibiotics. Patient is in agreement with this plan. Medications chlorhexidine (Hibiclens) 4 % solution (has no administration in time range) sodium chloride 0.9% (NS) flush 10 mL (has no administration in time range) sodium chloride 0.9% (NS) flush 10 mL (has no administration in time range) doxycycline (Vibramycin) 100 mg in sodium chloride 0.9 % 100 mL IVPB (has no administration in time range) sodium chloride 0.9 % bolus 1,000 mL (1,000 mL IntraVENous New Bag 01/05/25 5781) cefTRIAXone (Rocephin) 1,000 mg in sodium chloride 0.9 % 50 mL IVPB Mini-Bag Plus (1,000 mg IntraVENous New Bag 01/05/25 6290) lidocaine PF (Xylocaine) 2 % injection (5 mL Infiltration Given 01/05/25 1628) REVAL: 79-year-old female presenting to the ED from her nursing facility for a dislodged PICC line this morning. Was receiving Rocephin. An IV was placed and patient was given a dose of IV Rocephin. Will also order her doxycycline dose. Given her tachycardia and soft blood pressure we did obtain labs with lactic and cultures. No leukocytosis or elevated lactate. Low concern for acute septic process. Patient tachycardic however was given IV fluids and did have improvement. Her blood pressure was stable in the ED. PICC team was consulted and replaced the PICC line. Patient will be discharged to her nursing facility and will continue IV antibiotics. CRITICAL CARE TIME CONSULTS: None PROCEDURES: Unless otherwise noted below, none Procedures Patients symptoms are consistent with sepsis, severe sepsis, or septic shock (If yes use ".sepsiscoremeasure"): FINAL IMPRESSION 1. Status post peripherally inserted central catheter (PICC) central line placement DISPOSITION Discharge 01/05/2025 07:20:26 PM PATIENT REFERRED TO: Jenaro Ayers MD [address] [address] DISCHARGE MEDICATIONS: Current Discharge Medication List (Comment: Please note this report has been produced using speech recognition software and may contain errors related to that system including errors in grammar, punctuation, and spelling, as well as words and phrases that may be inappropriate. If there are any questions or concerns please feel free to contact the dictating provider for clarification.) Jaswant Richey DO (electronically signed) Emergency Medicine Provider Jaswant Richey DO 01/05/251924 [facility] 01-05-2025 Physician Emergency department Note Emergency Department Encounter Location: [facility] ED Patient: Claritza Burton : 1945 Date of evaluation: 01/05/2025 ED Provider: Jesus Manuel Juan DO Time received sign-out: 2199 Claritza Burton was checked out to me by Dr. Rossi. Please see his/her initial documentation for details of the patient's initial ED presentation, physical exam and completed studies. In brief, Claritza Burton is a 79 y.o. adult that presented to the emergency department after she accidentally dislodged her PICC line at her half-way facility. Is in the half-way facility for PICC line antibiotics due to vertebral osteomyelitis, recent prolonged hospitalization. Currently is a DNR CCA, DNI at the SNF. Today she is oriented at baseline. Staff at the SNF is also concerned about soft blood pressures and tachycardia. I have reviewed and interpreted all of the currently available lab results and diagnostics from this visit: Results for orders placed or performed during the hospital encounter of 01/05/25 Blood culture Site #2 - Suspected Infection Collection Time: 01/05/25 3:43 PM Specimen: Blood, Venous Result Value Ref Range Blood Culture Blood culture incubation started CBC auto differential Collection Time: 01/05/25 3:43 PM Result Value Ref Range Auto WBC 10.4 3.6 - 10.7 10*3/uL RBC 3.55 (L) 3.80 - 5.20 10*6/uL Hemoglobin 10.2 (L) 11.7 - 16.0 g/dL Hematocrit 32.6 (L) 35.0 - 47.0 % MCV 91.8 77.0 - 99.0 fL MCH 28.7 26.0 - 34.0 pg MCHC 31.3 30.5 - 36.0 % RDW 15.6 (H) 11.5 - 15.0 % Platelets 476 (H) 140 - 440 10*3/uL MPV 10.1 9.0 - 12.7 fL nRBC 0.0 0.0 - 2.0 /100 WBCs Neutrophils Relative 63.2 38.0 - 82.0 % Lymphocytes Relative 25.4 15.0 - 45.0 % Monocytes Relative 9.2 5.0 - 13.0 % Eosinophils Relative 0.7 0.0 - 6.0 % Basophils Relative 0.5 0.0 - 2.0 % Immature Grans % 1.0 0.0 - 2.0 % Neutrophils Absolute 6.6 1.8 - 7.5 10*3/uL Lymphocytes Absolute 2.6 1.0 - 4.3 10*3/uL Monocytes Absolute 1.0 (H) 0.0 - 0.9 10*3/uL Eosinophils Absolute 0.1 0.0 - 0.5 10*3/uL Basophils Absolute 0.1 0.0 - 0.2 10*3/uL Immature Grans Absolute 0.1 (H) <0.1 10*3/uL Basic metabolic panel Collection Time: 01/05/25 3:43 PM Result Value Ref Range SODIUM 138 136 - 145 mmol/L POTASSIUM 4.5 3.5 - 5.1 mmol/L CHLORIDE 103 98 - 107 mmol/L CARBON DIOXIDE 25 23 - 31 mmol/L UREA NITROGEN 22 9 - 23 mg/dL CREATININE 0.46 (L) 0.57 - 1.11 mg/dL GLUCOSE 109 82 - 115 mg/dL CALCIUM 8.8 8.8 - 10.0 mg/dL ANION GAP 10 3 - 13 mmol/L eGFR >90.0 >60.0 mL/min/1.73m*2 Blood culture Site #1 - Suspected Infection Collection Time: 01/05/25 3:50 PM Specimen: Blood, Venous Result Value Ref Range Blood Culture Blood culture incubation started Lactic acid with reflex Collection Time: 01/05/25 3:50 PM Result Value Ref Range LACTIC ACID 1.0 0.5 - 2.2 mmol/L ECG 12 lead Collection Time: 01/05/25 10:29 PM Result Value Ref Range Heart Rate 141 bpm QRSD Interval 77 ms QT Interval 291 ms QTC Interval 445 ms P [place] 48 degrees QRS [place] 9 degrees T Wave [place] 69 degrees MT Interval 130 ms IR CVC picc placement Final Result 1. Successful placement of a right-sided PICC line as detailed above. The distal tip is in the SVC and it is ready for use. 2. This Power PICC is designed to tolerate power injections (as in CT). Report Dictated on Electronically Signed By: Fabricio Zepeda MD Electronically Signed Date/Time: 01/05/2025 4:46 PM EDT XR chest 1 view Final Result Left-sided PICC line is no longer visible. Degenerative changes of the thoracic spine and shoulders Report Dictated on Electronically Signed By: Noni Hermosillo MD Electronically Signed Date/Time: 01/05/2025 2:[address] chest angiogram w and/or wo IV contrast (Results Pending) Final ED Course and MDM: Claritza Burton is a 79 y.o. whose care was signed out to me by the outgoing provider. In brief, patient who was sent in just to have her PICC line replaced. Patient was tachycardic in the emergency room to the 140s, blood pressure normal, basic lab work obtained, no lactic acidosis or leukocytosis, normal BMP. After the PICC line was placed, patient was given her IV doses of antibiotics that she is on for the osteomyelitis, initially we were hopeful that the blood pressure would respond with fluids after the PICC line was placed, unfortunately after liter of fluid she is still tachycardic in the 140s. Workup expanded to include EKG, troponin, CTA of the chest and a second liter of fluids. EKG is in a sinus tachycardia. The rest the lab work and imaging that I added on is still pending, signed to oncoming provider pending troponin and CTA results, heart rate reassessment after second liter of fluids and final disposition. Medications chlorhexidine (Hibiclens) 4 % solution (has no administration in time range) sodium chloride 0.9% (NS) flush 10 mL (10 mL IntraCATHeter Not Given 01/05/25 1640) sodium chloride 0.9% (NS) flush 10 mL (has no administration in time range) sodium chloride 0.9 % bolus 1,000 mL (1,000 mL IntraVENous New Bag 01/05/252214) sodium chloride 0.9 % bolus 1,000 mL (0 mL IntraVENous Stopped 01/05/251818) cefTRIAXone (Rocephin) 1,000 mg in sodium chloride 0.9 % 50 mL IVPB Mini-Bag Plus (0 mg IntraVENous Stopped 01/05/25 194) lidocaine PF (Xylocaine) 2 % injection (5 mL Infiltration Given 01/05/25 162) doxycycline (Vibramycin) 100 mg in sodium chloride 0.9 % 100 mL IVPB (0 mg IntraVENous Stopped 01/05/252013) Final Impression 1. Status post peripherally inserted central catheter (PICC) central line placement DISPOSITION 01/05/2025 10:13:09 PM (Please note that portions of this note may have been completed with a voice recognition program. Efforts were made to edit the dictations but occasionally words are mis-transcribed.) Jesus Manuel Juan, [employer] Jesus Manuel Juan DO 01/05/25 2038 [facility] Work Phone: 01-05-2025 Physician Emergency department Note This patient was signed out to me by the previous provider. Please see their note for further HPI and patient care. In summary this is a 79-year-old female who presented from her nursing facility for PICC line replacement after was accidentally dislodged. She is on IV antibiotics through PICC line due to vertebral osteomyelitis and noted to have a recent prolonged hospitalization. Currently DNR CCA/DNI at the half-way facility. Patient got the PICC line and then was found to be tachycardic more from her baseline. She is in the 140s. Setting sinus tachycardia. Broad workup ended up being initiated in the emergency department to evaluate for infectious process. She had a CTA pending here in the emergency department and then was signed out to me. Urinalysis does show signs of infection, patient already received Rocephin here in the emergency department which will treat this. There was some mild blood in the urine so I did add on a CT scan of abdomen pelvis just to ensure that there is no infected kidney stone that could be causing her tachycardia. She denies any pain. She is afebrile. Review her medication list she is on metoprolol twice a day for palpitations. I did give her her home dose of metoprolol to see if that will help her tachycardia. Tachycardia significantly improved. I think that this was all secondary to having missed her daily meds. Patient is agreeable to discharge. Given strict return precautions and discharged in stable condition. Cheryl Negrete MD 01/06/25 0210 [facility] 12-31-2024 History of Presen t illness Narrative PULMONOLOGY CONSULT PROGRESS NOTE 12/31/2024 Hospital LOS: LOS: 18 days Chief Complaint: shortness of breath I saw and evaluated the patient, participating in the lamb portions of the service. I reviewed the fellow's note and agree with his findings and plan as below. 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 CXR showing multifocal infiltrates, CT abdomen/pelvis showing signs of discitis/OM at L5-S1, L common femoral vein thrombus. CTA chest showing 1cm pericardial effusion. Transferred to [facility] ICU on 12/13 for further management. 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 She was transferred to [facility] 12/24 and developed worsening hypoxic respiratory failure, poor secretion management and was treated with high flow nasal cannula, broad spectrum antibiotics, and transferred back to ICU on 12/26. Weaned to heated high flow then NC, DNR-CCA/DNI established." She is on room air. She has no acute complaints. She feels her breathing is at baseline. She has tube feeds running through PEG. Awaiting transfer to [facility]. Assessment and Plan: Acute hypoxic respiratory failure multifactorial - chronic aspiration, influenza A Strep bacteremia due to L5-S1 OM/discitis HFpEF not in acute exacerbation CFV thrombus, hx DVT/PE Chronic urinary retention with chronic puentes; Debility; Deconditioning; severe malnutrition; Cerebral Palsy Respiratory failure resolved. Suspected recurrent aspiration events. Recently underwent PEG Strict NPO with tube feeds through PEG Aspiration precautions Continue pulmonary hygiene measures, IS, flutter valve, mucinex, PPI, upright positioning while getting tube feeds Antibiotics per ID, Ceftriaxone x 8 weeks through PICC line Continue DOAC for CFV thrombus For transfer to ECF today, no objection from Pulmonology standpoint Fred Rowe MD Fellow, Pulmonary and Critical Care Medicine Vitals- BP 123/70 (BP Location: Right arm, Patient Position: Lying) Pulse 101 Temp 36.2 C (97.2 F) (Temporal) Resp 16 Ht 1.626 m (5' 4.02") Wt 42.1 kg (92 lb 13 oz) SpO2 96% BMI 15.92 kg/m Tmax: Temp (24hrs), Av.4 C (97.6 F), Min:36.2 C (97.2 F), Max:36.7 C (98 F) Hemodynamics: Cuff: Systolic (24hrs), Av , Min:108 , Max:125 /Diastolic (24hrs), Av, Min:70, Max:78 Cuff MAP:MAP (mmHg) Av.4 Min: 57 Max: 128 P: Pulse Av Min: 101 Max: 104 Observed RR: Resp Av Min: 16 Max: 25 Observed O2 sats: SpO2 Av.8 % Min: 88 % Max: 100 % Intake/Output Summary (Last 24 hours) at 12/31/2024 1446 Last data filed at 12/31/2024 1428 Gross per 24 hour Intake 1520.51 ml Output 1650 ml Net -129.49 ml Physical exam- Physical Exam Constitutional: General: She is not in acute distress. Comments: Chronically ill appearing, cachectic appearing Cardiovascular: Rate and Rhythm: Normal rate and regular rhythm. Heart sounds: Normal heart sounds. No murmur heard. No friction rub. No gallop. Pulmonary: Effort: Pulmonary effort is normal. No respiratory distress. Breath sounds: Normal breath sounds. No stridor. No wheezing, rhonchi or rales. Abdominal: Comments: PEG in place Musculoskeletal: Right lower leg: No edema. Left lower leg: No edema. Neurological: General: No focal deficit present. Mental Status: She is alert. Mental status is at baseline. Psychiatric: Mood and Affect: Mood normal. Behavior: Behavior normal. Data: Select Labs within last 24 hours- BMP: Recent Labs 12/29/24 0150 12/30/24 0441 12/31/24 0400 NA 139 138 140 K 4.1 4.0 4.1 CL 108* 108* 108* CO2 BUN 12 16 16 CREATININE 0.47* 0.47* 0.47* CALCIUM 8.6* 8.5* 8.3* MG 2.0 2.1 2.2 PHOS 2.4 1.8* 2.1* LFTs: Recent Labs 12/29/24 0150 12/30/24 04412/31/24 0400 AST 41* 31 30 ALT 43* 36* 30* PROT 5.7* 5.6* 5.5* ALBUMIN 2.1* 2.1* 2.1* BILITOT 0.4 0.3 0.2 ALKPHOS 72 66 68 Glucose: Recent Labs 12/29/24 0150 12/30/24 0441 12/31/24 0400 GLUCOSE 108 120* 118* Procal: No results for input(s): "PROCAL" in the last 72 hours. CBC: Recent Labs 12/29/24 01512/30/2444012/31/24 0400 WBC 8.8 7.4 7.0 HGB 7.8* 8.7* 8.5* HCT 25.3* 28.1* 28.0* PLT 481* 456* 456* MCV 92.0 93.0 92.4 RDW 15.5* 15.6* 15.6* ABGs: No results for input(s): "PHART", "BGP9BBO", "PO2ART", "UHQ7RDH", "SO2ART", "O2YKYLLK" in the last 72 hours. Lactic Acid: No results for input(s): "LACTATE" in the last 72 hours. INR: No results for input(s): "INR" in the last 72 hours. Cardiac Injury Profile: No results for input(s): "CKTOTAL", "CKMB", "TROPONINI" in the last 72 hours. Labs in Last 3 months: Lab Results Component Value Date TSH 0.68 12/13/2024 INR 1.1 12/24/2024 Microbiology- Urine Cx: Lab Results Component Value Date URINECX No growth (<1,000 CFU/mL) 12/26/2024 Blood Cx: Lab Results Component Value Date BLOODCX No growth at 5 days 12/26/2024 Sputum Cx: Lab Results Component Value Date RESPCULT Moderate respiratory reba present. 12/26/2024 Gram Stain: Lab Results Component Value Date LABGRAM (A) 12/26/2024 Moderate Polymorphonuclear leukocytes per low power field LABGRAM Moderate Epithelial cells per low power field (A) 12/26/2024 LABGRAM Moderate Gram positive cocci in clusters (A) 12/26/2024 LABGRAM Rare Gram positive bacilli (A) 12/26/2024 LABGRAM Rare Yeast (A) 12/26/2024 PNA PCR: Lab Results Component Value Date HUMANMETAPNE Not Detected 12/26/2024 COVID19: No results found for: COVID19 Legionella Ag: Lab Results Component Value Date LEGIONELLAPN Not Detected 12/26/2024 Strep Ag: No results for input(s): "STREPPNEUMO" in the last 72 hours. Imaging- CXR portable: Results for orders placed during the hospital encounter of 12/13/24 XR chest 1 view Narrative Patient Name: CLARITZA BURTON : 1945 Exam Date/Time: 12/30/2024 12:34 Procedure: XR CHEST 1 VIEW Ordering Provider: WOODS CAMERON Reason For Exam: LUE PICC placement EXAM: XR Chest, 1 View CLINICAL INDICATION: LUE PICC placement TECHNIQUE: Frontal view of the chest. COMPARISON: Chest radiograph from 12/26/2024 FINDINGS: LUNGS AND PLEURAL SPACES: Bilateral reticular pulmonary opacities, unchanged. Small left pleural effusion. No pneumothorax. No acute focal consolidation. HEART: Unremarkable. No cardiomegaly. MEDIASTINUM: Unremarkable. Normal mediastinal contour. BONES/JOINTS: Degenerative change of the spine. Bilateral acromioclavicular and glenohumeral joint DJD. No acute fracture. TUBES, LINES AND DEVICES: Left upper extremity PICC line tip projects over the lower SVC. Impression Left upper extremity PICC line tip projects over the lower SVC. Report Dictated on Electronically Signed By: Umm Mcneill MD Electronically Signed Date/Time: 12/30/2024 1:42 PM EDT CXR (2V): No results found for this or any previous visit. CT Chest: No results found for this or any previous visit. CTA Chest: No results found for this or any previous visit. Other Studies: Reviewed and as per electronic record. CxR/CT images personally reviewed by me when available; salient findings summarized in A/P. Current Facility-Administered Medications: amLODIPine (Norvasc) tablet 5 mg, 5 mg, Per G Tube, Daily, DOM Yuen CNP, 5 mg at 12/31/24 0838 apixaban (Eliquis) tablet 5 mg, 5 mg, Per G Tube, BID, DOM Yuen CNP, 5 mg at 12/31/24 0839 bisacodyl (Dulcolax) suppository 10 mg, 10 mg, Rectal, BID PRN, Keely Vergara DO cefTRIAXone (Rocephin) 2,000 mg in sodium chloride 0.9 % 50 mL IVPB Mini-Bag Plus, 2,000 mg, IntraVENous, q24h, Margot Carver MD, Stopped at 12/30/24 1725 chlorhexidine (Hibiclens) 4 % solution, , Topical, Daily, DOM Dawn CNP guaiFENesin (Robitussin) 100 MG/5ML liquid 200 mg, 200 mg, Per G Tube, TID, DOM Yuen CNP, 200 mg at 12/31/24 0840 lisinopril tablet 20 mg, 20 mg, Per G Tube, Daily, DOM Yuen CNP, 20 mg at 12/31/24 0839 Melatonin sublingual liquid 0.3 mg, 0.3 mg, SubLINGual, Nightly, Keely Vergara DO, 0.3 mg at 12/30/24 2314 metoprolol tartrate (Lopressor) injection 5 mg, 5 mg, IntraVENous, q6h PRN, Devin Willis DO, 5 mg at 12/30/24 1824 metoprolol tartrate (Lopressor) tablet 50 mg, 50 mg, Per G Tube, BID, DOM Yuen CNP, 50 mg at 12/31/24 0839 ondansetron ODT (Zofran-ODT) disintegrating tablet 4 mg, 4 mg, Oral, q8h PRN OR ondansetron (Zofran) injection 4 mg, 4 mg, IntraVENous, q6h PRN, Keely Kelsey Juana Vo, DO pantoprazole (ProtoNix) EC tablet 40 mg, 40 mg, Oral, Nightly OR pantoprazole (ProtoNix) 40 mg in sodium chloride (PF) 0.9 % 10 mL injection, 40 mg, IntraVENous, Nightly, Keely Kelsey Juana Vo, DO, 40 mg at 12/30/24 2314 polyethylene glycol (PEG) 3350 (Miralax) packet 17 g, 17 g, Per G Tube, Daily, Keely Kelsey Juana Vo, DO, 17 g at 12/31/24 0839 QUEtiapine (SEROquel) tablet 12.5 mg, 12.5 mg, Oral, Nightly PRN, Keely Kelsey Juana Vo, DO, 12.5 mg at 12/30/24 2324 senna-docusate sodium (Senokot-S) 8.6-50 MG tablet 2 tablet, 2 tablet, Per G Tube, Daily, Keely Kelsey Juana Vo, DO, 2 tablet at 12/31/24 0839 sodium chloride 0.9 % infusion, 5-250 mL/hr, IntraVENous, PRN, Keely Kelsye Juana Vo, DO sodium chloride 0.9% (NS) flush 10 mL, 10 mL, IntraCATHeter, q12h, Samara Isaiierlorne, 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, 10 mL at 12/31/24 0212 sodium chloride 0.9% (NS) flush 10 mL, 10 mL, IntraCATHeter, PRN, Samara Acierno, SUPER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 sodium chloride 0.9% (NS) flush 5-40 mL, 5-40 mL, IntraCATHeter, q8h, Keely Kelsey Juana Vo, DO, 10 mL at 12/30/24 2315 sodium chloride 0.9% (NS) flush 5-40 mL, 5-40 mL, IntraVENous, PRN, Keely Kelsey Juana Vo, DO sodium chloride 3 % hypertonic nebulizer solution 4 mL, 4 mL, Nebulization, PRN, Vanessa Bateman MD stomahesive in petrolatum (ET Mix), , Topical, PRN, Lyly Chandler [employer]PER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, Given at 12/30/24 1600 Allergies Allergies Allergen Reactions Amantadine Palpitations Other Reaction(s): Racing heart Amoxicillin-Pot Clavulanate Palpitations Other Reaction(s): Racing heart Amoxicillin Unknown Erythromycin Palpitations Other Reaction(s): Racing heart Erythromycin Base Unknown Lorazepam Anxiety Restlessness Nutrition Assessment Type and Reason for Visit: Reassess Nutrition Recommendations/Plan: Continue with Vital 1.5 @ 40 mls/hour and 50 mls every 4 hours. Monitor EN tolerance. Monitor nutritional status. 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 Weights this admit were >144# until placed on envella bed 12/17 and subsequent weights now 110-115# which are inaccurate) Body Fat Loss: No significant body fat loss Muscle Mass Loss: Unable to assess Fluid Accumulation: Moderate to Severe Generalized, Extremities Education Professional Strength: Not Performed Nutrition Assessment: Since last RD visit, patient was extubated on 12/23 but since extubation has experienced delrium and was given seroquel. Patient tolerating antibiotics and will need PICC to be on 8 week course (placed today 12/30/24). Held diuressis since 12/24 due to being euvolemic. CE[employer]ING [employer]ATION BLOWER saw patient 12/24 and found s/s oropharyngeal dysphagia. + overt clinical s/s pulmonary compromise with PO. Risk factors for aspiration include CP, esophagitis s/p PEG, ? Hx aspiration. Recommends strict NPO and feeding via PEG; re-attempted to evaluate today (12/30/24) and will sign off; pt with decreased GONZÁLEZ and recommends continue with TF. TF running at goal today (12/30/24). Estimated Daily Nutrient Needs: Energy Requirements Based On: Kcal/kg Weight Used for Energy Requirements: Anderson Weight for Energy Calculation (kg): 55 kg Total Energy Requirements (kcals/day): 25-30 kcals/kg = 7613-0314 kcals/day Weight Used for Protein Requirements: Anderson Weight in Kg Used for Protein Requirements: 55 kg Estimated Total Protein (g/day): 1.1-1.3g protein/kg IBW = 61-72g protein/day Estimated Daily Total Fluid (ml/day): 1375 mls Nutrition Related Findings: Net IO Since Admission: 151.66 mL [12/30/24 1447] Orientation Level: Oriented to person, Cognition: Follows commands, Best Verbal Response: Confused, Patient Behaviors/Mood: Calm, Cooperative Teeth: Missing teeth Swallow: (PEG tube) Shmuel Scale Score: 14. Wound Type: Pressure Injury, Unstageable Gastrointestinal (WDL): Exceptions to WDL Bowel Sounds (All Quadrants): Active Abdomen Inspection: Soft, Flat, Gastrostomy tube Last BM Date: 12/27/24, Stool Appearance: Loose, Stool Color: Brown Edema: Generalized Edema: Mild pitting, slight indentation, RUE Edema: Trace, LUE Edema: Trace, RLE Edema: Non-pitting, LLE Edema: Non-pitting Oxygen Therapy: None (Room air), O2 Delivery Method: Nasal cannula, O2 Flow Rate (L/min): 2 L/min Meds reviewed: Scheduled: amLODIPine, 5 mg, Oral, Daily apixaban, 5 mg, Oral, BID cefTRIAXone, 2,000 mg, IntraVENous, q24h chlorhexidine, , Topical, Daily [START ON 12/31/2024] chlorhexidine, , Topical, Daily guaiFENesin, 200 mg, Oral, TID lisinopril, 20 mg, Oral, Daily Melatonin, 0.3 mg, SubLINGual, Nightly metoprolol tartrate, 25 mg, Oral, BID pantoprazole, 40 mg, Oral, Nightly Or pantoprazole (ProtoNix) 40 mg in sodium chloride (PF) 0.9 % 10 mL injection, 40 mg, IntraVENous, Nightly polyethylene glycol (PEG) 3350, 17 g, Per G Tube, Daily senna-docusate sodium, 2 tablet, Per G Tube, Daily sodium chloride 0.9%, 10 mL, IntraCATHeter, q12h sodium chloride 0.9%, 5-40 mL, IntraCATHeter, q8h Current Nutrition Therapies: Enteral Nutrition Feeding Route: PEG EN Formula: Vital 1.5 Davide EN Schedule: Continuous EN Feeding Regimen: Vital 1.5 @ 40 mL/hr Additives/Modulars: None Water Flushes: 50mL Q 4 hours since 12/14 per order Current EN & Flush Order Provides: Vital 1.5 @ 40 mL/hr to provide 1440 kcals + 159 kcals propofol, 65 gm protein and 733 mL free H2O (29 kcal/kg & 1.2 gm protein/kg IBW <55kg>). Goal EN & Flush Order Provides: same Anthropometric Measures: Height: 162.6 cm (5' 4.02") Current Body Weight: 47.2 kg (104 lb 0.9 oz) (previous weight 48.9kg) Weight Source: Bed Scale Admission Body Weight: 67 kg (147 lb 11.3 oz) (12/13 bed) Usual Body Weight: (Only recent available weight hx is 12/05/23 137#, 11/21/24 134.9#, 12/12/24 139.2#.) Anderson Body Weight (lbs) (Calculated): 120 lbs Anderson Body Weight (Kg) (Calculated): 55 kg % Anderson Body Weight (Calculated): 94.1 % BMI (kg/m2) (Calculated): 17.9 BMI Categories: Underweight (BMI less than 22) age over 65 Wt Readings from Last 10 Encounters: 12/30/24 47.4 kg (104 lb 9 oz) LABS: Recent Labs 12/28/24 0440 12/29/24 0150 12/30/24 044 NA 135* 139 138 K 3.8 4.1 4.0 CL 106 108* 108* CO2 BUN 16 12 16 CREATININE 0.46* 0.47* 0.47* GLUCOSE 106 108 120* CALCIUM 8.3* 8.6* 8.5* CAION 4.00* 4.30 4.20* MG 1.9 2.0 2.1 PHOS -- 2.4 1.8* BG - elevated, Phos - decreased. Recent Labs 12/28/24 0440 12/29/24 0150 12/30/24 044 AST 44* 41* 31 ALT 41* 43* 36* BILITOT 0.5 0.4 0.3 ALKPHOS 73 72 66 Nutrition Diagnosis: Swallowing difficulty related to cognitive or neurological impairment as evidenced by swallow study results, nutrition support - enteral nutrition (at goal rate) Nutrition Interventions: Nutrition Education/Counseling: No recommendation at this time Coordination of Nutrition Care: Continue to monitor while inpatient Goals: Previous Goal Met: Goal(s) Achieved Goals: Meet at least 75% of estimated needs, by next RD assessment Nutrition Monitoring and Evaluation: Behavioral-Environmental Outcomes: None Identified Food/Nutrient Intake Outcomes: Enteral Nutrition Intake/Tolerance Physical Signs/Symptoms Outcomes: Biochemical Data, Fluid Status or Edema, Nutrition Focused Physical Findings, Weight, Skin, Hemodynamic Status, GI Status Discharge Planning: Too soon to determine Vivian Gordon RD,LD[facility] Contact: *[phone] or Cl[employer] Chat Images from the original note were not included. [facility] - Infectious Diseases Attending Progress Note Subjective: Following for influenza A/ VDRF and L5-S1 VO/diskitis with recent hx of Strep alactolyticus BSI (10/30/24- [facility] treated with PO omnicef by ID) with back pain at that time. Remains in ICU. Afebrile. 2L NC. Objective: Vitals: Patient Vitals for the past 24 hrs: BP Temp Temp src Pulse Resp SpO2 Weight 12/30/24 0800 (!) 115/102 36.8 C (98.2 F) Temporal 106 21 100 % -- 12/30/24 0600 -- -- -- 99 17 100 % 47.4 kg (104 lb 9 oz) 12/30/24 0400 148/95 36.3 C (97.4 F) Temporal 108 16 97 % -- 12/30/24 0000 138/74 36.4 C (97.5 F) Temporal 97 16 96 % -- 12/29/24 2000 131/64 -- -- 108 20 100 % -- 12/29/24 1900 112/78 -- -- 108 23 100 % -- 12/29/24 1600 121/58 -- -- 101 17 100 % -- 12/29/24 1514 -- -- -- 103 -- -- -- Physical Exam Vitals and nursing note reviewed. Constitutional: Appearance: She is not ill-appearing. HENT: Head: Normocephalic. Neurological: Mental Status: She is alert. Labs: Lab Results Component Value Date/Time NA 138 12/30/2024 0441 K 4.0 12/30/2024 0441 CL 108 (H) 12/30/2024 0441 CO2 25 12/30/2024 0441 BUN 16 12/30/2024 0441 CREATININE 0.47 (L) 12/30/2024 0441 GLUCOSE 120 (H) 12/30/2024 0441 CALCIUM 8.5 (L) 12/30/2024 0441 PROT 5.6 (L) 12/30/2024 0441 BILITOT 0.3 12/30/2024 0441 ALKPHOS 66 12/30/2024 0441 AST 31 12/30/2024 0441 ALT 36 (H) 12/30/2024 044 PROCAL 0.10 (H) 12/26/2024 0151 PROCAL 0.12 (H) 12/21/2024 0637 PROCAL 4.24 (H) 12/13/2024 1343 Lab Results Component Value Date/Time WBC 7.4 12/30/2024 0441 HGB 8.7 (L) 12/30/2024 0441 HGB 10.1 12/26/2024 1754 HCT 28.1 (L) 12/30/2024 044 PLT 456 (H) 12/30/2024 0441 LYMPHOPCT 21.0 12/30/2024 0441 LYMPHOPCT 20 12/19/2024 0654 MONOPCT 10.9 12/30/2024 0441 MONOPCT 8 12/19/2024 0654 BASOPCT 0.5 12/30/2024 0441 BASOPCT 2 12/17/2024 0335 NEUTROABS 4.8 12/30/2024 0441 Micro: 12/16- bone biopsy cx- negative 12/14- pneumonia PCR panel- + influenza A 12/14- resp cx- resp reba 12/14- CRAB PCR- negative 12/14- C auris PCR- negative 12/13- RVP- + influenza A 12/13- blood cx- negative 12/13- MRSA nasal PCR- negative 12/13- Legionella and Strep urine Ag- negative 12/13- urine cx- negative Brody: 10/30- blood cx- Strep alactolyticus hogan-S 12/16- spine FNA- Final Diagnosis A - L5-S1 Intervertebral Disc Aspirate - Fine Needle Aspirate: NO MALIGNANT CELLS IDENTIFIED. Inflammation present. Lines: PIV Puentes PEG Radiography/Echo/Other: 12/26- CXR- Cardiac and mediastinal silhouette within normal limits. Lungs are hyperinflated, with interstitial prominence and coarsening bilaterally and probable left basilar atelectasis versus scarring, about the same. No focal consolidation or apparent pneumothorax. Bony thorax grossly unremarkable. IMPRESSION: 1. Stable examination. No acute findings. 12/21- CXR- Pulmonary vascular congestion and/or infiltrates, similar to prior day. 12/17- MRI C-spine- No evidence of osteomyelitis discitis. No peripherally enhancing fluid collection to suggest an epidural or soft tissue abscess. Multilevel spondylosis most pronounced at C4-C5 where there is severe canal stenosis without cord compression. No underlying cord signal change. There is also moderate to severe canal stenosis at C3-C4 with cord flattening without underlying signal change. Multilevel variable foraminal stenosis as outlined, up to severe. 12/17- MRI T-spine- No evidence of osteomyelitis discitis. No peripherally enhancing fluid collection to suggest an epidural or soft tissue abscess. Findings suggesting recent (acute to subacute) Schmorl's nodes at the inferior endplates of T10 and T11. No significant canal or foraminal stenosis. Bilateral pleural effusions and associated opacities. 12/15- CT C-spine- 1. Moderate degenerative changes in the mid cervical spine. 2. Canal stenosis is most pronounced at C3-4 and C4-5. There is a mild impression on the ventral spinal cord. 3. No direct CT evidence of discitis/osteomyelitis on this unenhanced scan. 4. Mild inflammatory changes in the left mastoid air cells. This is nonspecific but may indicate mastoiditis. 5. There is a significant amount of cerumen/debris in the left external auditory canal. Please correlate with direct visualization. 12/15- MRI L-spine- Marrow signal changes of L5-S1 vertebral bodies with fluid signal of the disc are consistent with osteomyelitis discitis. No peripherally enhancing fluid collection to suggest an epidural or paraspinal abscess. Small Schmorl's node at the inferior endplate of T11 with mild edema and enhancement suggest acute to subacute Schmorl's node formation. Multilevel spondylosis as outlined. No high-grade canal stenosis. Multilevel foraminal stenoses, most pronounced at L5-S1. Anatomic Lumbar Variant: None. L4-5 is considered the level of the iliac crest and assume there are 5 lumbar-type vertebrae. 12/14- TTE- Left Ventricle: Left ventricle is smaller than normal. Normal wall thickness. Normal left ventricular systolic function. EF by 2D Simpsons Biplane is 67%. Normal wall motion. Grade I diastolic dysfunction with normal LAP. Right Ventricle: Right ventricle size is normal. Reduced systolic function. TAPSE is abnormal. Pericardium: Small (<1 cm) pericardial effusion present. Pericardial effusion is echolucent. Features indicating an absence of cardiac tamponade are present. No significant valvular abnormalities. 12/13- CT c/a/p- 1. Multifocal infiltrates concerning for multifocal pneumonia. 2. Small to moderate left pleural effusion. 3. Moderate pericardial effusion. 4. Moderate stool throughout the colon and a large amount of stool in the rectum. Consider constipation and/or fecal impaction. Perirectal fat stranding is present suggesting proctitis including stercoral proctitis. 5. Chronic osseous changes. Erosive changes at L5-S1. 12/13- CT brain- 1. No evidence of an intracranial mass, edema or parenchymal flexion. If there is persistent concern for an abnormality not seen by CT, consider MRI and/or CSF analysis, if appropriate. 2. Cerebral volume loss. White matter changes likely due to microangiopathic disease. 3. Nonspecific left mastoid effusion. An infectious process cannot be excluded. Antimicrobials, Start/End Dates: Meropenem (12/26-present) Vancomycin (12/26-present) Impression: Acute resp failure-- suspect ongoing aspiration Influenza A with acute hypoxic respiratory failure/ VDRF- treated L5-S1 culture-negative VO/ diskitis but with preceding Strep alactolyticus BSI (10/30/24) at [facility] treated with PO-- likely hematogenous seeding of spine - had colonoscopy at [facility] at time of bacteremia with mucosal irritation - s/p CT-guided biopsy (12/16) on abx - may need stabilizing procedure in the near future given bony destruction Leukocytosis- resolved Pericardial effusion Hx bladder cancer with chronic puentes for urinary retention Hx VTE Augmentin allergy--> tolerates carbapenems, cephalosporins Erythromycin allergy Plan: Switch meropenem back to ceftriaxone today-- 8 weeks of ceftriaxone through 02/10 for coverage of spine infection with previous Strep BSI. PICC is in place. OPAT completed and scanned into media tab. May experience ongoing aspiration of oral contents and recurrent pneumonia. Based on diagnoses and management, combination of acute and chronic problems, exacerbations and/or acuity, this visit should be considered to be of low complexity. Margot Carver MD Images from the original note were not included. 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 CXR showing multifocal infiltrates, CT abdomen/pelvis showing signs of discitis/OM at L5-S1, L common femoral vein thrombus. CTA chest showing 1cm pericardial effusion. Transferred to [facility] ICU on 12/13 for further management. 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 She was transferred to [facility] 12/24 and developed worsening hypoxic respiratory failure, poor secretion management and was treated with high flow nasal cannula, broad spectrum antibiotics, and transferred back to ICU on 12/26. 12/27 overall improving since transfer, 30%/50L HFNC; subjectively feeling better. DNR-CCA/DNI established. 12/28 weaned to ME, transferred to [facility] -- developed recurrent, intermittent sinus tachycardia Chief complaint: L5-S1 vertebral osteomyelitis, discitis; acute respiratory failure Interval history: no events reported, weaned to nasal cannula O2. Has no complains other than her feet feeling cold. No difficulties breathing today. Medications: Scheduled Meds: [START ON 12/31/2024] amLODIPine, 5 mg, Per G Tube, Daily apixaban, 5 mg, Per G Tube, BID cefTRIAXone, 2,000 mg, IntraVENous, q24h [START ON 12/31/2024] chlorhexidine, , Topical, Daily guaiFENesin, 200 mg, Per G Tube, TID [START ON 12/31/2024] lisinopril, 20 mg, Per G Tube, Daily Melatonin, 0.3 mg, SubLINGual, Nightly metoprolol tartrate, 50 mg, Per G Tube, BID pantoprazole, 40 mg, Oral, Nightly Or pantoprazole (ProtoNix) 40 mg in sodium chloride (PF) 0.9 % 10 mL injection, 40 mg, IntraVENous, Nightly polyethylene glycol (PEG) 3350, 17 g, Per G Tube, Daily senna-docusate sodium, 2 tablet, Per G Tube, Daily sodium chloride 0.9%, 10 mL, IntraCATHeter, q12h sodium chloride 0.9%, 5-40 mL, IntraCATHeter, q8h PRN Meds: PRN medications: bisacodyl, metoprolol, ondansetron ODT OR ondansetron, QUEtiapine, sodium chloride, sodium chloride 0.9%, sodium chloride 0.9%, sodium chloride, stomahesive in petrolatum OBJECTIVE: Vitals: BP (!) 115/102 (BP Location: Right arm, Patient Position: Lying) Pulse 106 Temp 36.8 C (98.2 F) (Temporal) Resp 21 Ht 1.626 m (5' 4.02") Wt 47.4 kg (104 lb 9 oz) SpO2 100% BMI 17.94 kg/m 24h Tmax: 98.2F Intake/Output Summary (Last 24 hours) at 12/30/2024 1748 Last data filed at 12/30/2024 1200 Gross per 24 hour Intake 2211 ml Output 1350 ml Net 861 ml Lines: / L brachial PICC 12/26 Puentes PEG EXAM: PHYSICAL EXAM: General Appearance: [x]No acute distress chronically ill appearing []Obese []Cachectic [x]Thin []ill Skin: Temperature [x]Warm []Cool Rash []Yes [x]No Lungs: [x]Clear []Crackles []Wheezes []Rhonchi Respiratory effort []Labored [x]Non-Labored Equal chest rise [x]Yes []No Trachea midline [x]Yes []No Room air Heart: Rate []Regular []Irregular [x]Tachycardia []Bradycardia Rhythm [x]Sinus []Irregular Murmur []Present [x]Absent Capillary Refill [x]<2 sec []>2 sec Peripheral Pulses [x]Strong []Weak []Absent Abdomen: [x]Soft Bowel Sounds []Present []Absent []Tender [x]Non-Tender []Distended [x]Non-distended PEG to TF Extremities: Cyanosis []Present [x]Absent GERMAN ([x]RUE [x]RLE [x]LUE [x]LLE) Clubbing []Yes [x]No Edema [x]Yes trace LE edema []No Neurologic: Alert [x]yes []no Oriented []x0 []x1 [x]x2 []x3 SHOSHONE-PAIUTE []Yes [x]No Follows Commands [x]Yes []No []Unresponsive to verbal [x]Cranial nerves grossly intact [x]Sensation grossly intact Results: Today's labs individually interpreted by me. CBC: Recent Labs 12/28/2443912/29/2414912/30/24440 WBC 10.8* 8.8 7.4 HGB 8.7* 7.8* 8.7* HCT 27.5* 25.3* 28.1* MCV 91.4 92.0 93.0 PLT 434 481* 456* BMP: Recent Labs 12/28/240 12/29/24 0150 12/30/24 044 NA 135* 139 138 K 3.8 4.1 4.0 CL 106 108* 108* CO2 21 25 25 PHOS -- 2.4 1.8* BUN 16 12 16 CREATININE 0.46* 0.47* 0.47* MG 1.9 2.0 2.1 LIVER PROFILE: Recent Labs 12/28/240 12/29/24 0150 12/30/24 044 AST 44* 41* 31 ALT 41* 43* 36* BILITOT 0.5 0.4 0.3 ALKPHOS 73 72 66 Cultures: 12/13 UCx negative 12/13 UAg negative 12/13 BC NGTD 12/13 MRSA PCR negative 12/13 RVP Influenza A 12/14 Acinetobacter, C auris+ 12/14 Resp culture negative 12/14 PNA PCR Influenza A 12/16 Aerobic/anaerobic cx bone biopsy NGTD 12/26 BC NGTD 12/26 UCx no growth 12/26 UAg negative 12/26 PNA PCR Influenza A 12/26 Resp cx Mod resp reba 12/26 RVP negative Diagnostics: 12/26 CXR: Reviewed by me. FINDINGS: Cardiac and mediastinal silhouette within normal limits. Lungs are hyperinflated, with interstitial prominence and coarsening bilaterally and probable left basilar atelectasis versus scarring, about the same. No focal consolidation or apparent pneumothorax. Bony thorax grossly unremarkable. IMPRESSION: 1. Stable examination. No acute findings. 12/14 Echo: Left Ventricle: Left ventricle is smaller than normal. Normal wall thickness. Normal left ventricular systolic function. EF by 2D Simpsons Biplane is 67%. Normal wall motion. Grade I diastolic dysfunction with normal LAP. Right Ventricle: Right ventricle size is normal. Reduced systolic function. TAPSE is abnormal. Pericardium: Small (<1 cm) pericardial effusion present. Pericardial effusion is echolucent. Features indicating an absence of cardiac tamponade are present. No significant valvular abnormalities. Assessment: Acute hypoxic respiratory failure; chronic aspiration; Influenza A, parainfluenza pneumonia (treated this admission) Strep bacteremia due to L5-S1 osteomyelitis, discitis Acute metabolic encephalopathy; chronic CP CFV thrombus, hx DVT/PE Chronic urinary retention with chronic puentes, hx bladder CA HFpEF; small pericardial effusion Sinus tachycardia; chronic HTN Debility, deconditioning Suspected severe protein calorie malnutrition Plan: -Respiratory failure appears to have resolved -- has recurred several times over the last few months, likely due to aspiration events. Recently underwent PEG placement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 [facility] Labs within last 24 hours- BMP: Recent Labs 12/27/24 0554 12/28/24 0440 12/29/24 0150 NA 138 135* 139 K 4.2 3.8 4.1 CL 107 106 108* CO2 24 21* 25 BUN 16 16 12 CREATININE 0.52* 0.46* 0.47* CALCIUM 8.3* 8.3* 8.6* MG 2.1 1.9 2.0 PHOS -- -- 2.4 LFTs: Recent Labs 12/27/24 0554 12/28/24 0440 12/29/24 0150 AST 42* 44* 41* ALT 30* 41* 43* PROT 5.4* 5.5* 5.7* ALBUMIN 2.0* 2.0* 2.1* BILITOT 0.4 0.5 0.4 ALKPHOS 67 73 72 Glucose: Recent Labs 12/27/24 0554 12/28/24 0440 12/29/24 0150 GLUCOSE 105 106 108 Procal: No results for input(s): "PROCAL" in the last 72 hours. CBC: Recent Labs 12/27/24 0554 12/28/24 0440 12/29/24 0150 WBC 11.5* 10.8* 8.8 HGB 8.8* 8.7* 7.8* HCT 28.5* 27.5* 25.3* PLT 410 434 481* MCV 93.1 91.4 92.0 RDW 15.9* 15.7* 15.5* ABGs: Recent Labs 12/26/24 1630 12/26/24 1754 PHART 7.529* 7.499* PML0OZE 30.3* 33.7* PO2ART 50.8* 99.0 [id number] 24.7 25.6* Q3MAMSPV Nasal Cannula (LPM) High Flow Oxygen Therapy (FiO2) Lactic Acid: No results for input(s): "LACTATE" in the last 72 hours. INR: No results for input(s): "INR" in the last 72 hours. Cardiac Injury Profile: No results for input(s): "CKTOTAL", "CKMB", "TROPONINI" in the last 72 hours. Labs in Last 3 months: Lab Results Component Value Date TSH 0.68 12/13/2024 INR 1.1 12/24/2024 Microbiology- 12/13 resp pathogens pcr + Flu A 12/14 resp cx - normal resp reba 12/14 pna pcr + Flu A 12/16 bone bx - NGTD 12/26 blood cultures NGTD 12/26 resp cx - normal resp reba 12/26 resp pathogens pcr - neg Imaging- 12/13 CT abdomen/pelvis Impression: 1. Multifocal infiltrates concerning for multifocal pneumonia. 2. Small to moderate left pleural effusion. 3. Moderate pericardial effusion. 4. Moderate stool throughout the colon and a large amount of stool in the rectum. Consider constipation and/or fecal impaction. Perirectal fat stranding is present suggesting proctitis including stercoral proctitis. 5. Chronic osseous changes. Erosive changes at L5-S1. 12/15 MRI lumbar Impression: Marrow signal changes of L5-S1 vertebral bodies with fluid signal of the disc are consistent with osteomyelitis discitis. No peripherally enhancing fluid collection to suggest an epidural or paraspinal abscess. Small Schmorl's node at the inferior endplate of T11 with mild edema and enhancement suggest acute to subacute Schmorl's node formation. Multilevel spondylosis as outlined. No high-grade canal stenosis. Multilevel foraminal stenoses, most pronounced at L5-S1. 12/26 CXR FINDINGS: Cardiac and mediastinal silhouette within normal limits. Lungs are hyperinflated, with interstitial prominence and coarsening bilaterally and probable left basilar atelectasis versus scarring, about the same. No focal consolidation or apparent pneumothorax. Bony thorax grossly unremarkable. Assessment and Plan: Acute hypoxic respiratory failure 2/ recent flu A/parainfluenza pneumonia, concern for aspiration of secretions - weaned to nasal cannula - continue meropenem -- transitioned back to ceftriaxone on 12/30, vanco dc'd - completed tamiflu course on 12/18 - concern for secretion aspiration -- very weak cough - continue meds/nutrition via peg only, CEILING INSULATION BLOWER following - per family wishes, patient changed to DNI Chronic osteomyelitis/discitis L5-S1 s/p CT-guided biopsy 12/16 - ortho consulted, no acute surgical intervention - had broadened abx upon return to unit on 12/26, on merrem day #4 since broadening from CTX - transition back to ceftriaxone tomorrow / w/ total course 8wks through 02/10 - PICC order placed to facilitate this - aubrey travis'd - f/u with ortho outpatient for potential surgical intervention (for spinal stability purposes, evidence of bony destruction on spinal imaging) - bx results NGTD Altered mental status, hx CP - reportedly AO x2 at baseline -- at orientation baseline currently but is more tired today - promote adequate sleep/wake cycle - avoid sedating meds during daytime - continue nightly melatonin - prn seroquel for agitation Sinus Tachycardia - has been intermittently tachycardic up to 130-140s - ekgs have been NSR/ST throughout admit, normal QTC (455) - does not appear symptomatic with tachycardia, BP remains stable - attempted fluids while on floor with no change, started on PO metoprolol - may be anxiety/agitation related, monitor for correlation - monitor for atrial dysrhythmias, is already anticoagulated on eliquis Hx DVT/PE on eliquis, known left common fem vein dvt - continue eliquis Urinary retention w/ chronic puentes, hx bladder CA - puentes in place w/ adequate UOP Hx HTN - on MAGAZINE KEEPER norvasc 5mg daily, lisinopril 20mg daily Fluids/Nutrition/Bowel Function - FW flushes 50cc q4hr - tolerating TF vital 1.5 @ goal rate 40cc/hr - is having documented BM Debility/Discharge Planning - PT/OT evals - family requesting different SNF upon discharge; requested referral to [facility] in [place], referral made per social work Code Status: DNR-CCA/DNI GI Prophylaxis: Pantoprazole IV DVT Prophylaxis: Full anticoagulation Disposition: Transfer to [facility] Discussed plan of care with Dr. Alamo Time spent preparing to see the patient, obtaining/reviewing separately obtained history, completing an appropriate medical examination of the patient, ordering medications/tests/procedures, documenting clinical information on the EMR, and/or coordinating care is a subsequent visit: 35 minutes (Level II). Cosigned by Jenaro Alamo DO at 12/29/2024 6:02 PM EDT Pharmacy to Dose Vancomycin - Progress Note Lab Results Component Value Date CREATININE 0.46 (L) 12/28/2024 BUN 16 12/28/2024 WBC 10.8 (H) 12/28/2024 VANCORANDOM 16.5 12/28/2024 VANCOTROUGH 16.8 12/27/2024 Doses, serum creatinine, and vancomycin levels interfaced automatically to [employer] and data has been analyzed and interpreted. Infectious Diagnosis: Vertebral Osteo/Discitis Est CrCl: 72 mL/min (Cockcroft-Gault) Assessment: Current regimen vancomycin 750 mg every 12 hours (16.6 mg/kg) Predicted AUC = 528 mg/L*hr (goal 400-600 mg/L*hr) PAUC = 98% (probability that AUC is >400 mg/L*hr) Pconc = 14% (probability that Ctrough is above 20 mcg/mL (toxicity)) Plan: Is the current dose therapeutic? [x] Yes - obtain next level on 01/02/25 unless predicted AUC is sub-/supra-therapeutic or change in serum creatinine. . Trend serum creatinine. Trend AUC using Bayesian Modeling. Orders placed. DATE: 12/28/24 TIME: 12:37 PM Sonya Ricketts RPh Clinical Pharmacist Available via Secure Chat Images from the original note were not included. Speech-Language Pathology SPEECH LANGUAGE PATHOLOGY [facility] Dysphagia Treatment Note Patient Name: Claritza Burton Evaluation Date: 12/28/2024 Date of : 1945 Admission Date: 12/13/2024 12:37 PM Age: 79 y.o. Room/Bed: T2/T2 A Subjective Patient lethargic and cooperative. Seen semi-upright in bed. Answers all basic questions with weak vocal quality. Follows all basic commands. No visitors at bedside. Patient was in bilateral soft wrist restraints. Spoke with RN Love who cleared pt for treatment. Current Diet: Dietary Orders (From admission, onward) Start Ordered 12/24/24 1045 Diet, tube feeding no tray PEG; Vital 1.5 Davide; Continuous; Yes; 10; Q 6 Hours; 10; 40 Diet effective now Question Answer Comment Route: PEG Formula: Vital 1.5 Davide Delivery Method: Continuous Continuous Advance Tube Feeding? Yes Advancement Volume (mL/hr) 10 Advancement Frequency: Q 6 Hours Continuous Initial Rate (Recommended mL/hr) 10 Continuous Goal Rate (Recommended mL/hr) 40 12/24/24 1044 Aspiration Precautions: - Head of bed 30 degrees or higher during feeds - Frequent oral care Oxygen: Oxygen Therapy: Supplemental oxygen O2 Delivery Method: (S) Nasal cannula O2 Flow Rate (L/min): (S) 6 L/min Pain: Pt denies any current pain. PPE Worn: surgical mask, face shield, gown, gloves Objective & Assessment Dysphagia Treatment # of Activities: 1 Dysphagia Activity 1: PO trials Pt trialed water via teaspoon x2 and ice chips x2. Pt's head was turned toward her left. When clinician attempted to straighten her head, pt said she "did not have it in her". There was anterior loss of the water via teaspoon boli. Good oral receipt of ice chip trials. Hyo-laryngeal elevation was reduced with ice chip trials. Following all trials, pt had a wet cough. Clinician suctioned oral cavity for remaining bolus and sputum. Suspect tube feeds are pt's new baseline. Plan & Recommendations Continue acute CEILING INSULATION BLOWER therapy per initial plan of care and established goals. Recommend strict NPO and PEG D/C Recommendations: to be determined Education Education Given: diet recommendations Given To: patient and RN Response: no evidence of learning Goals Patient Stated Goal: Patient unable to participate in goal setting at this time. Encounter Problems Encounter Problems (Active) Swallowing Patient will tolerate therapeutic trials of recommended consistency without clinical signs and symptoms of aspiration (Progressing) Start: 12/25/24 Expected End: 01/08/25 Encounter Problems (Resolved) Swallowing Patient will participate in repeat clinical dysphagia evaluation (Completed) Start: 12/24/24 Expected End: 01/07/25 Resolved: 12/25/24 Therapy Time CEILING INSULATION BLOWER Individual Minutes Time In: 09 Time Out: 0915 Minutes: 10 Olga Alvarado CEILING INSULATION BLOWER [employer] Agent Cosigned by COLT Rodriguez at 12/28/2024 9:32 AM EDT Images from the original note were not included. ICU Progress Note Name: Claritza Burton : 1945(79 y.o.) Date: 12/28/24 Team: MICU Attending: Dr. Alamo Subjective: Chief Complaint: shortness of breath Hospital Summary: 79yo female with pmhx cerebral palsy, PE/DVT on eliquis, chronic aspiration/esophagitis s/p PEG, HTN, urinary retention w/ chronic anxiety, headaches, recent hospitalizations for parainfluenza, hyponatremia, influenza A, and strep bacteremia presented to [place] ED from [facility] (there 72hrs after most recent admission) with hypoxic respiratory failure requiring intubation. CXR showing multifocal infiltrates, CT abdomen/pelvis showing signs of discitis/OM at L5-S1, L common femoral vein thrombus. CTA chest showing 1cm pericardial effusion. Transferred to [facility] ICU on 12/13 for further management. Infectious work-up thus far has been unremarkable, influenza A on pna pcr, neg on resp viral panel (likely from recent active infection). MRI re-demonstrates L5-S1 discitis/OM findings. S/p CT-guided bx on 12/16 (NGTD). Ortho consulted and recommend expanding abx for now, assess need for surgical intervention (for spinal stability purposes due to bony destruction) at later date. ID consulted. Extubated 12/23 and transferred to floor on 12/25. Transferred back to ICU on 12/26 for increasing oxygen requirements, increased WOB. Concern for aspiration of secretions. Treated with HHFNC, & abx broaded. Interval Events: No acute events documented overnight. Patient is weaned to nasal cannula. She is awake and alert on exam. Attempts to follow commands. AO x1. Hemodynamically stable. Tolerating tube feeds via PEG. Stable for floor transfer. Scheduled Meds:amLODIPine, 5 mg, Oral, Daily apixaban, 5 mg, Oral, BID calcium gluconate, 2,000 mg, IntraVENous, Once chlorhexidine, , Topical, Daily guaiFENesin, 200 mg, Oral, TID lisinopril, 20 mg, Oral, Daily Melatonin, 0.3 mg, SubLINGual, Nightly meropenem, 2,000 mg, IntraVENous, q8h metoprolol tartrate, 25 mg, Oral, BID pantoprazole, 40 mg, Oral, Nightly Or pantoprazole (ProtoNix) 40 mg in sodium chloride (PF) 0.9 % 10 mL injection, 40 mg, IntraVENous, Nightly polyethylene glycol (PEG) 3350, 17 g, Per G Tube, Daily senna-docusate sodium, 2 tablet, Per G Tube, Daily sodium chloride 0.9%, 5-40 mL, IntraCATHeter, q8h stomahesive in petrolatum, , Topical, TID vancomycin, 750 mg, IntraVENous, q12h Continuous Infusions: Objective: Constitutional: General Appearance []Normal appearance [x]Ill-appearing []In acute distress []Well developed/well nourished []Obese [x]Thin []Cachectic Psych: Mental Status Alert: [x]Yes []No Oriented: []x0 [x]X1 []X2 []X3 []X4 Comments: At Baseline []Yes []No []Unknown baseline Mood/Affect []Normal [x]Calm []NAD []Flat []Depressed []Anxious []Agitated []Sedated Neurologic: GCS EYE: 4 - Opens spontaneously GCS MOTOR: 5 - Localizes to pain (purposeful movements to painful stimulus) GCS VERBAL: 4 - Confused Total GCS: 13 []Sensation grossly intact []Sensory deficit: [x]Equal motor function []Focal motor deficit: []Clear speech []Dysarthria Comments: Eyes: Inspection of Pupils/Irises Pupils equal, round and reactive: [x]Yes []No EOM Intact [x]Yes []No Sclera: []Icteric []Non-Icteric Conjunctiva: []Injected []Non-Injected Drainage present []Yes []No Comments: ENT/Mouth: Inspection of teeth/lips/gums Dentition: [x]Adequate []Poor []Quinault Teeth []Dentures Mucosa: [x]Moist []Dry Oral secretions: [] Present [] Copious [] Moderate []Few [] Thick [] Thin Neck: External Appearance Overall Appearance: [x]Normal []Lesion/Mass/Crepitus Present Trachea midline: [x]Yes []No Respiratory: Respiratory effort []Tachypnea []Respiratory depression []Labored [x]Non-Labored Auscultation Right Lung: [x]Clear [] Diminished []Crackles []Wheezes []Rhonchi Left Lung: [x]Clear [] Diminished []Crackles []Wheezes []Rhonchi Supplemental Oxygen []None (Room Air) [x]Nasal cannula []High-flow NC(Salter) []NRB Mask []Heated High-Flow Nasal Cannula []NIV []Mechanical Ventilation Cardiovascular: Auscultation Rate: [x]Normal []Tachycardic []Bradycardic Rhythm: [x]Regular []Irregular Interpretation: SR Murmur: []Present []Absent Peripheral Edema: []Present [x]Absent Gastrointestinal/Genitourinary Abdomen Palpation: [x]Soft []Firm []Tender [x]Non-Tender []Distended [x]Non-distended Hernia: []Present []Absent Bowel Sounds: []Present []Absent Hypoactive GI symptoms: []Nausea []Vomiting []Diarrhea []Constipation Pelvis Urine output: [x]Adequate []Oliguria []Anuria Puentes present? [x]Yes []No Urine appearance: [x]Yellow []Samara []Tea-colored []Lajas-tinged []Efra hematuria [] Sediment []Clots Musculoskeletal: Extremities []Moves all extremities equally []Strength/Tone: Intact and Normal [x]Generalized weakness []Focal weakness: Injury/trauma: []Absent []Present Skin: Inspection []Normal [x]Pale []Rash []Lesion []Wound/s Palpation [x]Warm []Cool []Hot [x]Dry []Clammy Cap-Refill: [x] <3 sec [] >3 seconds (delayed) I/O: 12/27 07 - 12/28 658 In: 2194 [I.V.:1037] Out: 2225 [Urine:2225] Invasive Lines / Tubes / Drains: Peripheral IV 12/27/24 Distal;Left;Posterior Forearm (Active) Number of days: 0 Urethral Catheter (Active) Number of days: 2 Enterostomy PEG Gastric (Active) Number of days: 14 Central Line Indication: NA - patient does not have a central line Puentes Indications: Neurogenic bladder or chronic urinary retention Wounds: Wound/Incision 12/17/24 Pressure Injury Coccyx (Active) Date First Assessed/Time First Assessed: 12/17/24 0100 Primary Wound Type: Pressure Injury Location: Coccyx Pressure Injury Stage: Stage 2 Oxygen Delivery: O2 Flow Rate (L/min): (S) 6 L/min Ventilator: Ventilation Day(s): 1 Resp Rate (Set): 14 Vt (Set, mL): 350 mL IP Set (cm H2O): 6 cm H2O FiO2 (%): 55 % PEEP/CPAP (cm H2O): 8 cm H20 Inspiratory Time (sec): 0.9 sec Restraints: Restraints Non-Violent Or Non-Self Destructive Dec 27, 2024 10:16 Pm Edt Restraint order already placed. Order is valid for duration of episode. Last Vitals: BP MAP 149/87 (12/28/24599) 104 (12/28/24599) Arterial BP MAP Temp 37.6 C (99.6 F) (12/27/241941) Pulse (!) 134 (12/28/24599) Resp (!) 26 (12/28/24599) SpO2 100 % (12/28/24599) Weight 45.1 kg (99 lb 6.8 oz) (12/28/24550) BMI Body mass index is 17.06 kg/m . [facility] within last 24 hours- BMP: Recent Labs 12/26/24 0151 12/27/24 0554 12/28/24 0440 NA 135* 138 135* K 4.0 4.2 3.8 CL 105 107 106 CO2 22* 24 21* BUN 15 16 16 CREATININE 0.52* 0.52* 0.46* CALCIUM 8.3* 8.3* 8.3* MG 2.1 2.1 1.9 LFTs: Recent Labs 12/26/24 01512/26/24 0155 12/27/24 0554 12/28/24 0440 AST 32 -- 42* 44* ALT 23 -- 30* 41* PROT 5.7* -- 5.4* 5.5* ALBUMIN 2.1* -- 2.0* 2.0* BILITOT 0.5 -- 0.4 0.5 BILIRUBINU -- Negative -- -- ALKPHOS 68 -- 67 73 Glucose: Recent Labs 12/25/24 1153 12/25/24 1850 12/26/24 01512/27/24 0554 12/28/24 0440 GLUCOSE -- -- 134* 105 106 POCGLU 156* 159* -- -- -- Procal: Recent Labs 12/26/24150 PROCAL 0.10* CBC: Recent Labs 12/26/2415012/26/24 1630 12/26/24 1754 12/27/24 0554 12/28/24 0440 WBC 14.9* -- -- 11.5* 10.8* HGB 10.5 9.5* < > 10.1 8.8* 8.7* HCT 29.6* -- -- 28.5* 27.5* PLT 474* -- -- 410 434 MCV 89.4 -- -- 93.1 91.4 RDW 16.3* -- -- 15.9* 15.7* < > = values in this interval not displayed. ABGs: Recent Labs 12/26/24 01512/26/24 1630 12/26/24 175 PHART -- 7.529* 7.499* [id number] -- 30.3* 33.7* PO2ART -- 50.8* 99.0 [id number] -- 24.7 25.6* [id number] Nasal Cannula (LPM) Nasal Cannula (LPM) High Flow Oxygen Therapy (FiO2) Lactic Acid: Recent Labs 03/29/25 0151 LACTATE 0.9 INR: No results for input(s): "INR" in the last 72 hours. Cardiac Injury Profile: No results for input(s): "CKTOTAL", "CKMB", "TROPONINI" in the last 72 hours. Labs in Last 3 months: Lab Results Component Value Date TSH 0.68 12/13/2024 INR 1.1 12/24/2024 Microbiology- Urine Cx: Lab Results Component Value Date URINECX No growth (<1,000 CFU/mL) 12/26/2024 Blood Cx: Lab Results Component Value Date BLOODCX No growth at 48 hours 12/26/2024 Sputum Cx: Lab Results Component Value Date RESPCULT Moderate respiratory reba present. 12/26/2024 Gram Stain: Lab Results Component Value Date LABGRAM (A) 12/26/2024 Moderate Polymorphonuclear leukocytes per low power field LABGRAM Moderate Epithelial cells per low power field (A) 12/26/2024 LABGRAM Moderate Gram positive cocci in clusters (A) 12/26/2024 LABGRAM Rare Gram positive bacilli (A) 12/26/2024 LABGRAM Rare Yeast (A) 12/26/2024 PNA PCR: Lab Results Component Value Date HUMANMETAPNE Not Detected 12/26/2024 COVID19: No results found for: COVID19 Legionella Ag: Lab Results Component Value Date LEGIONELLAPN Not Detected 12/26/2024 Strep Ag: No results for input(s): "STREPPNEUMO" in the last 72 hours. Imaging- 12/13 CT abdomen/pelvis Impression: 1. Multifocal infiltrates concerning for multifocal pneumonia. 2. Small to moderate left pleural effusion. 3. Moderate pericardial effusion. 4. Moderate stool throughout the colon and a large amount of stool in the rectum. Consider constipation and/or fecal impaction. Perirectal fat stranding is present suggesting proctitis including stercoral proctitis. 5. Chronic osseous changes. Erosive changes at L5-S1. 12/15 MRI lumbar Impression: Marrow signal changes of L5-S1 vertebral bodies with fluid signal of the disc are consistent with osteomyelitis discitis. No peripherally enhancing fluid collection to suggest an epidural or paraspinal abscess. Small Schmorl's node at the inferior endplate of T11 with mild edema and enhancement suggest acute to subacute Schmorl's node formation. Multilevel spondylosis as outlined. No high-grade canal stenosis. Multilevel foraminal stenoses, most pronounced at L5-S1. 12/26 CXR FINDINGS: Cardiac and mediastinal silhouette within normal limits. Lungs are hyperinflated, with interstitial prominence and coarsening bilaterally and probable left basilar atelectasis versus scarring, about the same. No focal consolidation or apparent pneumothorax. Bony thorax grossly unremarkable. Assessment and Plan: Acute hypoxic respiratory failure 2/2 recent flu A/parainfluenza pneumonia, concern for aspiration of secretions - weaned to nasal cannula - continue merrem/vanco (broadened upon return to ICU) - concern for secretion aspiration -- very weak cough - continue meds/nutrition via peg only, [employer] following - per family wishes, patient changed to DNI Chronic osteomyelitis/discitis L5-S1 s/p CT-guided biopsy 12/16 - ortho consulted, no acute surgical intervention - recommend broaded abx (merrem day #3 since broadening from CTX, vanco day #3) - f/u with ortho outpatient for potential surgical intervention (for spinal stability purposes) - bx results NGTD Altered mental status, hx CP - reportedly AO x2 at baseline - continue nightly melatonin - prn seroquel Hx DVT/PE on eliquis, known left common fem vein dvt - continue eliquis Urinary retention w/ chronic puentes, hx bladder CA - puentes in place w/ adequate UOP Hypocalcemia - repleted IV Hx HTN - on MAGAZINE KEEPER norvasc 5mg daily, lisinopril 20mg daily Fluids/Nutrition/Bowel Function - fluids/nutrition via chronic PEG - bowel regimen in place Debility/Discharge Planning - PT/OT evals Code Status: DNR-CCA/DNI GI Prophylaxis: Pantoprazole IV DVT Prophylaxis: Full anticoagulation Disposition: Transfer to [facility] Discussed plan of care with Dr. Alamo Time spent preparing to see the patient, obtaining/reviewing separately obtained history, completing an appropriate medical examination of the patient, ordering medications/tests/procedures, documenting clinical information on the EMR, and/or coordinating care is a subsequent visit: 35 minutes (Level II). Cosigned by Jenaro Alamo DO at 12/29/2024 6:02 PM EDT Images from the original note were not included. [facility] - Infectious Diseases Attending Progress Note Subjective: Following for influenza A/ VDRF and L5-S1 VO/diskitis with recent hx of Strep alactolyticus BSI (10/30/24- [facility] treated with PO omnicef by ID) with back pain at that time. Transferred back to ICU. Abx were expanded yesterday. Ongoing aspiration of oral saliva. + HFNC 45L/ 48%. No fevers. Objective: Vitals: Patient Vitals for the past 24 hrs: BP Temp Temp src Pulse Resp SpO2 Weight 12/27/24 0900 137/66 -- -- 87 (!) 28 100 % -- 12/27/24 0840 -- -- -- 104 (!) 30 100 % -- 12/27/24 0800 134/63 36.7 C (98.1 F) Temporal 98 (!) 31 100 % -- 12/27/24 0700 145/86 -- -- 104 (!) 29 100 % -- 12/27/24 0600 137/66 -- -- 96 (!) 29 100 % -- 12/27/24 0500 149/73 -- -- 99 23 100 % -- 12/27/24 0400 131/73 -- -- 88 25 100 % -- 12/27/24 0300 130/81 -- -- 95 (!) 29 100 % -- 12/27/24 0200 118/99 -- -- 94 (!) 27 100 % -- 12/27/24 0100 130/70 -- -- 91 (!) 28 99 % -- 12/27/24 0000 139/73 -- -- 93 (!) 32 100 % -- 12/26/24 2300 129/77 -- -- 98 (!) 32 100 % -- 12/26/24 2200 119/69 -- -- 95 20 100 % -- 12/26/247 -- -- -- -- -- -- 48 kg (105 lb 13.1 oz) 12/26/24 2100 145/67 -- -- 97 (!) 28 100 % -- 12/26/242051 -- 36.8 C (98.3 F) Temporal -- -- -- -- 12/26/242030 144/73 -- -- 108 24 99 % -- 12/26/24 1936 (!) 171/82 36.6 C (97.8 F) Temporal 104 22 (!) 88 % -- 12/26/24 1640 -- -- -- 106 18 93 % -- 12/26/24 1400 130/88 37.8 C (100 F) Axillary 103 (!) 28 91 % -- Physical Exam Vitals and nursing note reviewed. Constitutional: Appearance: She is ill-appearing. Comments: Awake- very frail HENT: Head: Normocephalic. Nose: Nose normal. Mouth/Throat: Comments: + HFNC; + ak chin teeth Cardiovascular: Rate and Rhythm: Regular rhythm. Tachycardia present. Pulmonary: Comments: + coarse loud rhonchi in upper airways; tachypneic Abdominal: General: There is no distension. Palpations: Abdomen is soft. Tenderness: There is no abdominal tenderness. Musculoskeletal: Comments: + arthritic joint changes; no synovitis or crepitance of any limb Skin: General: Skin is warm and dry. Coloration: Skin is not jaundiced. Findings: No rash. Neurological: Comments: Very frail and not able to communicate well; + hx intellectual disability Labs: Lab Results Component Value Date/Time NA 138 12/27/2024 0554 K 4.2 12/27/2024 0554 CL 107 12/27/2024 0554 CO2 24 12/27/2024 0554 BUN 16 12/27/2024 0554 CREATININE 0.52 (L) 12/27/2024 0554 GLUCOSE 105 12/27/2024 0554 CALCIUM 8.3 (L) 12/27/2024 0554 PROT 5.4 (L) 12/27/2024 0554 BILITOT 0.4 12/27/2024 0554 ALKPHOS 67 12/27/2024 0554 AST 42 (H) 12/27/2024 0554 ALT 30 (H) 12/27/2024 0554 PROCAL 0.10 (H) 12/26/2024 0151 PROCAL 0.12 (H) 12/21/2024 0637 PROCAL 4.24 (H) 12/13/2024 1343 Lab Results Component Value Date/Time WBC 11.5 (H) 12/27/2024 0554 HGB 8.8 (L) 12/27/2024 0554 HGB 10.1 12/26/2024 1754 HCT 28.5 (L) 12/27/2024 0554 PLT 410 12/27/2024 0554 LYMPHOPCT 18.3 12/27/2024 0554 LYMPHOPCT 20 12/19/2024 0654 MONOPCT 10.6 12/27/2024 0554 MONOPCT 8 12/19/2024 0654 BASOPCT 0.5 12/27/2024 0554 BASOPCT 2 12/17/2024 0335 NEUTROABS 7.9 (H) 12/27/2024 0554 Micro: 12/16- bone biopsy cx- negative 12/14- pneumonia PCR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 Microbiology- Urine Cx: Lab Results Component Value Date URINECX No growth (<1,000 CFU/mL) 12/13/2024 Blood Cx: Lab Results Component Value Date BLOODCX Blood culture incubation started 12/26/2024 Sputum Cx: Lab Results Component Value Date RESPCULT Culture in progress 12/26/2024 Gram Stain: Lab Results Component Value Date LABGRAM (A) 12/26/2024 Moderate Polymorphonuclear leukocytes per low power field LABGRAM Moderate Epithelial cells per low power field (A) 12/26/2024 LABGRAM Moderate Gram positive cocci in clusters (A) 12/26/2024 LABGRAM Rare Gram positive bacilli (A) 12/26/2024 LABGRAM Rare Yeast (A) 12/26/2024 PNA PCR: Lab Results Component Value Date HUMANMETAPNE Not Detected 12/26/2024 COVID19: No results found for: COVID19 Legionella Ag: Lab Results Component Value Date LEGIONELLAPN Not Detected 12/14/2024 Strep Ag: No results for input(s): "STREPPNEUMO" in the last 72 hours. Imaging- CXR 12/26: Coarsening of the interstitium noted with marginally improved reticular nodular opacities seen particularly in the left lower lung zone. No evidence of pleural effusion or pneumothorax. Assessment and Plan: Principal Problem: Acute hypoxemic respiratory failure (HCC) Assessment: Worsening Acute Respiratory Failure with Hypoxia 2/2 to influenza A and parainfluenza PNA Metabolic encephalopathy Chronic Osteomyelitis/discitis L5-S1 s/p biopsy, path neg, gram stain neg. 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 Plan: Transfer to MICU for worsening hypoxic RF Continue vancomycin and meropenem; ID is following, appreciate recommendations Continue Eliquis for DVT Continue tube feeds via PEG Daily labs and replete lytes as needed GI Prophylaxis: Pantoprazole IV DVT Prophylaxis: Full anticoagulation Disposition: Transfer to MICU Critical Care Time: 40 Total critical care time caring for this patient with life threatening, unstable organ failure, including direct patient contact, management of life support systems, review of data including imaging and labs, discussions with other team members and physicians, excluding procedures. Cosigned by Shaan Flynn MD at 12/27/2024 7:29 AM EDT Associated attestation - Shaan Flynn MD - 12/27/2024 7:29 AM EDT I have personally performed a [id number] diagnostic evaluation on this patient on date of service 12/26/24. History, labs, imaging studies, and electronic medical record have been reviewed by me. This note documented by the [x]wash house worker []MARISOL reflects my history, exam, and medical decision making. I have reviewed and agree with the care plan. Changes were made in the orders as necessary. ROS documentation was reviewed and negative unless otherwise stated in HPI. Additional pertinent interval history, ROS, and physical exam findings: 79 yo CF PMHx cerebral palsy, PE/DVT on Eliquis, aspiration, esophagitis s/p PEG, recent hospitalizations for parainfluenza, hyponatremia, influenza A and Strep bacteremia who presented to [facility] ED from [facility], (there for 72 hours after the last hospitalization) with acute respiratory failure with pulmonary edema. Initial O2 sats noted to be the 60s, patient intubated and noted to be hypotensive thus was fluid resuscitated. She was noted to be hypertensive and had urinary retention. WBC [address] with infiltr[address] abd/pelvis with concerns for osteomyelitis and discitis at L5-S1 as well as L common femoral vein thrombus. CTA chest demonstrated 1cm percardial effusion. Transferred to [facility] ICU for further management. Infectious workup while in ICU has been unrevealing. MRI does shows signs of L5-S1 discitis/osteomyelitis without other spine impact. Ortho is following and recommending extended IV abx for now and surgery later for spinal stability purpose. Remained intubated and sedated. Extubated on 12/23/24 and transferred to on 12/25/2024. ICU consulted for worsening hypoxia and increase work of breathing. Patient with RR 40 using accessory muscles and with high level of upper airway secretions. Assessment: - Acute hypoxic respiratory failure - influenza A/parainfluenza PNA - Discitis/osteomyelitis L5-S1 (suspect 2/2 prior episode bacteremia) - Hx PE/LLE DVT on DOAC prior to admission - Urinary retention w/chronic puentes s/p hx bladder cancer Plan: - Transfer to MICU for worsening hypoxic RF, high likely melendez of intubation, discussed with family - Continue vancomycin and meropenem; ID is following, appreciate recommendations - Continue Eliquis for DVT - Continue tube feeds via PEG - Daily labs and replete lytes as needed Total critical care time for this patient with life-threatening unstable organ failure, including direct patient contact, management of life support systems, review of data including imaging and labs, and discussions with other team members and physicians at least 35 min so far today, excluding procedures. Images from the original note were not included. [facility] - Infectious Diseases Advanced Practice Provider Progress Note Subjective: ID following patient for influenza A, VDRF, L5-S1 VO/discitis with recent Hx Strep alactolyticus BSI (10/30/24- [place] treated with PO Omnicef by ID). Notes reviewed. Patient with new fever. Not very interactive. Denies any pain or SOB. Tmax this morning 101.3F. 4-> 6L NC. Now on HFNC. WBC 14.9. Objective: Vitals: Patient Vitals for the past 24 hrs: BP Temp Temp src Pulse Resp SpO2 12/26/24 1640 -- -- -- 106 18 93 % 12/26/24 1400 130/88 37.8 C (100 F) Axillary 103 (!) 28 91 % 12/26/24 0803 153/88 37.8 C (100 F) Rectal (!) 141 (!) 31 94 % 12/26/24 0535 -- -- -- -- -- 94 % 12/26/24 0520 (!) 164/104 37.9 C (100.2 F) Rectal 108 (!) 28 -- 12/26/24 0518 -- -- -- -- -- 95 % 12/26/24 0509 -- -- -- -- -- 90 % 12/26/24 0502 (!) 168/92 -- -- 102 (!) 38 (!) 88 % 12/26/24 0322 141/78 (!) 38.4 C (101.1 F) Axillary 94 24 (!) 88 % 12/26/24 0305 (!) 168/92 -- -- 104 (!) 36 93 % 12/26/24 0251 157/82 -- -- 97 (!) 36 93 % 12/26/24 0220 136/78 37.9 C (100.3 F) Axillary 97 (!) 36 93 % 12/26/24 0205 153/87 -- -- (!) 147 (!) 36 -- 12/26/24 0202 152/81 -- -- (!) 136 (!) 36 97 % 12/26/24 0110 -- -- -- -- (!) 36 -- 12/26/24 0104 160/99 (!) 38.5 C (101.3 F) Axillary 112 (!) 38 93 % 12/25/247 -- -- -- 108 (!) 36 -- 12/25/24 210 148/85 36 C (96.8 F) Temporal (!) 122 (!) 36 93 % Physical Exam Vitals and nursing note reviewed. Constitutional: General: She is not in acute distress. Appearance: Normal appearance. She is normal weight. She is not ill-appearing. Comments: NAD laying in bed. Answers some questions, but difficult/mumbled speech. Chronically ill-appearing. HENT: Head: Normocephalic and atraumatic. Right Ear: External ear normal. Left Ear: External ear normal. Nose: Nose normal. Mouth/Throat: Mouth: Mucous membranes are moist. Pharynx: Oropharynx is clear. Comments: Dry Eyes: Extraocular Movements: Extraocular movements intact. Conjunctiva/sclera: Conjunctivae normal. Pupils: Pupils are equal, round, and reactive to light. Cardiovascular: Rate and Rhythm: Normal rate and regular rhythm. Pulses: Normal pulses. Heart sounds: Normal heart sounds. Pulmonary: Effort: Pulmonary effort is normal. Breath sounds: Normal breath sounds. No wheezing, rhonchi or rales. Comments: Breathing unlabored on NC. Rhonchi heard throughout. Abdominal: General: Abdomen is flat. Bowel sounds are normal. There is no distension. Palpations: Abdomen is soft. Tenderness: There is no abdominal tenderness. There is no guarding. Musculoskeletal: Right lower leg: No edema. Left lower leg: No edema. Skin: General: Skin is warm and dry. Neurological: General: No focal deficit present. Mental Status: She is alert and oriented to person, place, and time. Psychiatric: Mood and Affect: Mood normal. Behavior: Behavior normal. Labs: Recent Labs 12/24/24 0334 12/25/24 0206 12/26/24 0151 NA 142 139 135* K 3.8 4.0 4.0 CL 110* 108* 105 CO2 26 26 22* BUN 14 14 15 CREATININE 0.50* 0.53* 0.52* GLUCOSE 114 140* 134* CALCIUM 8.2* 8.4* 8.3* PROT 5.2* 5.8* 5.7* BILITOT 0.2 0.3 0.5 ALKPHOS 61 71 68 AST 38* 32 32 ALT 23 25 23 PROCAL -- -- 0.10* Recent Labs 12/24/24 0334 12/24/24 0338 12/25/24 0206 12/26/24 0151 12/26/24 1630 WBC 10.9* -- 8.7 14.9* -- HGB 8.7* < > 9.2* 10.5 9.5* 10.0 HCT 27.9* -- 28.7* 29.6* -- PLT 445* -- 449* 474* -- LYMPHOPCT 17.9 -- 15.0 15.3 -- MONOPCT 9.8 -- 9.6 10.2 -- BASOPCT 0.4 -- 0.5 0.5 -- NEUTROABS 7.7* -- 6.4 10.9* -- < > = values in this interval not displayed. Lab Results Component Value Date CRP 122.6 (H) 12/26/2024 Lab Results Component Value Date SEDRATE 39 (H) 12/13/2024 Micro: 12/26 Blood Cx: in process 12/26 Urine Cx: in process 12/26 Strep: Legionella Ag: neg 12/26 Resp Cx: mod epis, GPC, GPB, yeast 12/26 Resp PCR panel: neg 12/16- bone biopsy cx- negative 12/14- pneumonia PCR panel- + influenza A 12/14- resp cx- resp reba 12/14- CRAB PCR- negative 12/14- C auris PCR- negative 12/13- RVP- + influenza A 12/13- blood cx- negative 12/13- MRSA nasal PCR- negative 12/13- Legionella and Strep urine Ag- negative 12/13- urine cx- negative Brody: 10/30- blood cx- Strep alactolyticus hogan-S 12/16- spine FNA- Final Diagnosis A - L5-S1 Intervertebral Disc Aspirate - Fine Needle Aspirate: NO MALIGNANT CELLS IDENTIFIED. Inflammation present. Lines: RIJ TLC (12/13) Puentes PEG Radiography/Echo/Other: 12/26 CXR FINDINGS: Quality: Exam quality: EKG leads obscure small portions of the chest. Lines: None Cardiomediastinal Silhouette: The cardiac and mediastinal silhouettes are normal. Lungs: Coarsening of the interstitium noted with marginally improved reticular nodular opacities seen particularly in the left lower lung zone. No evidence of pleural effusion or pneumothorax. Soft tissue: The soft tissue structures appear unremarkable. Bones: Degenerative change of the thoracic spine is noted. 12/21- CXR- Pulmonary vascular congestion and/or infiltrates, similar to prior day. 12/17- MRI C-spine- No evidence of osteomyelitis discitis. No peripherally enhancing fluid collection to suggest an epidural or soft tissue abscess. Multilevel spondylosis most pronounced at C4-C5 where there is severe canal stenosis without cord compression. No underlying cord signal change. There is also moderate to severe canal stenosis at C3-C4 with cord flattening without underlying signal change. Multilevel variable foraminal stenosis as outlined, up to severe. 12/17- MRI T-spine- No evidence of osteomyelitis discitis. No peripherally enhancing fluid collection to suggest an epidural or soft tissue abscess. Findings suggesting recent (acute to subacute) Schmorl's nodes at the inferior endplates of T10 and T11. No significant canal or foraminal stenosis. Bilateral pleural effusions and associated opacities. 12/15- CT C-spine- 1. Moderate degenerative changes in the mid cervical spine. 2. Canal stenosis is most pronounced at C3-4 and C4-5. There is a mild impression on the ventral spinal cord. 3. No direct CT evidence of discitis/osteomyelitis on this unenhanced scan. 4. Mild inflammatory changes in the left mastoid air cells. This is nonspecific but may indicate mastoiditis. 5. There is a significant amount of cerumen/debris in the left external auditory canal. Please correlate with direct visualization. 12/15- MRI L-spine- Marrow signal changes of L5-S1 vertebral bodies with fluid signal of the disc are consistent with osteomyelitis discitis. No peripherally enhancing fluid collection to suggest an epidural or paraspinal abscess. Small Schmorl's node at the inferior endplate of T11 with mild edema and enhancement suggest acute to subacute Schmorl's node formation. Multilevel spondylosis as outlined. No high-grade canal stenosis. Multilevel foraminal stenoses, most pronounced at L5-S1. Anatomic Lumbar Variant: None. L4-5 is considered the level of the iliac crest and assume there are 5 lumbar-type vertebrae. 12/14- TTE- Left Ventricle: Left ventricle is smaller than normal. Normal wall thickness. Normal left ventricular systolic function. EF by 2D Simpsons Biplane is 67%. Normal wall motion. Grade I diastolic dysfunction with normal LAP. Right Ventricle: Right ventricle size is normal. Reduced systolic function. TAPSE is abnormal. Pericardium: Small (<1 cm) pericardial effusion present. Pericardial effusion is echolucent. Features indicating an absence of cardiac tamponade are present. No significant valvular abnormalities. 12/13- CT c/a/p- 1. Multifocal infiltrates concerning for multifocal pneumonia. 2. Small to moderate left pleural effusion. 3. Moderate pericardial effusion. 4. Moderate stool throughout the colon and a large amount of stool in the rectum. Consider constipation and/or fecal impaction. Perirectal fat stranding is present suggesting proctitis including stercoral proctitis. 5. Chronic osseous changes. Erosive changes at L5-S1. 12/13- CT brain- 1. No evidence of an intracranial mass, edema or parenchymal flexion. If there is persistent concern for an abnormality not seen by CT, consider MRI and/or CSF analysis, if appropriate. 2. Cerebral volume loss. White matter changes likely due to microangiopathic disease. 3. Nonspecific left mastoid effusion. An infectious process cannot be excluded. Antimicrobials, Start/End Dates: Cefepime: 12/13-12/15 Oseltamivir: 12/14- 12/18 Pip-Tazo: 12/13 Ceftriaxone: 12/21-12/26 Vanc: 12/13- 12/20; 12/25- present Meropenem: 12/16-12/20; 12/26- present Impression: Fever Influenza A with acute hypoxic respiratory failure/ VDRF- treated L5-S1 culture-negative VO/ diskitis but with preceding Strep alactolyticus BSI (10/30/24) at [facility] treated with PO-- likely hematogenous seeding of spine - had colonoscopy at [facility] at time of bacteremia with mucosal irritation - s/p CT-guided biopsy (12/16) on abx Leukocytosis- resolved Pericardial effusion Hx bladder cancer with chronic puentes for urinary retention Hx VTE Augmentin allergy--> tolerates carbapenems, cephalosporins Erythromycin allergy Plan: Patient with new fever and leukocytosis. CXR with coarsening interstitium. Follow Blood Cx, Urine Cx and Resp Cx that were sent (note, resp culture appears poor sample dt mod amount epithelial cells). Resp PCR and Strep/Legionella Ag neg. Plan to continue Vancomycin (Pharm to dose). DC Ceftriaxone and broaden back to Meropenem pending infectious workup. Suspect respiratory component/ difficulty clearing secretions. She is NPO per [employer]. Note, she will need 8 weeks antibiotics for VO/discitis- stop date 5/14. PICC pending. Monitor infectious parameters and renal function. Continue Pulm hygiene measures and strict aspiration precautions. ID will continue to follow. Case and plan dicussed with Dr. Carver Based on diagnoses and management, combination of acute and chronic problems, exacerbations and/or acuity, this visit should be considered to be of moderate complexity. Chitra PICHARDO PA-C [facility] Infectious Disease Hospitalist Progress Note 12/26/2024 Assessment/Plan: Data: (CAT1) Reviewed 2 notes from different specialty or health system (each=1). (CAT1) Reviewed 2 labs/studies ordered by another provider not previously counted (each=1, panels count as 1). 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 Now on NC, wean as able. -Slightly worsening clinical status today. Repeat CXR negative for significant acute changes. Repeat sputum culture, blood cultures ordered. Antibiotics broadened to include vancomycin -S/p bone biopsy 12/16, culture negative. Ortho consulted: No surgical intervention for now, likely eventual surgery for spinal stability -Unrevealing infectious workup. ID following, antibiotic de-escalated to ceftriaxone for 8 weeks total course with end date 02/10 (targeting previous pathogen with bacteremia from booster in 09/2024) -Will need PICC on Saturday -Continue Eliquis -Tube feeds via PEG. N.p.o. per speech - PT/OT/CM/SW - delirium precautions: increase activity - DVT prophylaxis: encourage ambulation and already anticoagulated Discharge Disposition: Anticipate DC back to [facility] pending clinical improvement, pricing consultant recommendations, workup. Needs PICC line. Will need new auth Total time spent (which include face to face and non face to face encounters) : 38 minutes D/W RN Complexity: Acute illness with systemic symptoms (MOD). Multiple stable chronic illnesses (MOD). Risk: Admission to hospital-level care was considered or occurred (HIGH). Advance Directive: DNR-CCA Toxic drug monitoring/narrow therapeutic index drug monitoring : # Drug name : # Route administered: # Method of monitoring: Subjective: Admit Date: 12/13/2024 PCP: JENARO AYERS MD Room#: W5-543/W5-543 A Brief Hospital course: Per ICU provider: 79 yo F PMH cerebral palsy, PE/DVT on Eliquis, aspiration, esophagitis s/p PEG, bladder cancer with chronic Puentes, recent hospitalizations for parainfluenza, hyponatremia, influenza A and Strep bacteremia who presented to [facility] ED from [facility], (there for 72 hours after the last hospitalization) with acute respiratory failure with pulmonary edema. Initial O2 sats noted to be the 60s, patient intubated and noted to be hypotensive thus was fluid resuscitated. She was noted to be hypertensive and had urinary retention. WBC [address] with infiltr[address] abd/pelvis with concerns for osteomyelitis and discitis at L5-S1 as well as L common femoral vein thrombus. CTA chest demonstrated 1cm percardial effusion. Transferred to [facility] ICU for further management. Infectious workup while in ICU has been unrevealing. MRI does shows signs of L5-S1 discitis/osteomyelitis without other spine impact. Ortho is following and recommending extended IV abx for now and surgery later for spinal stability purpose. Remained intubated and sedated. Extubated on 12/23/24." Interval History: Transition of care from ICU team Issues with tachycardia overnight Tmax 101.3 Increased WBC 14.9 Increased oxygen requirements, was on 2L NC yesterday, now 6L NC Diet, tube feeding no tray PEG; Vital 1.5 Davide; Continuous; Yes; 10; Q 6 Hours; 10; 40 24HR INTAKE/OUTPUT: Intake/Output Summary (Last 24 hours) at 12/26/2024 0854 Last data filed at 12/26/2024 0544 Gross per 24 hour Intake 1234 ml Output 880 ml Net 354 ml Past Medical History: Past Medical History: Diagnosis Date Anxiety Cancer (CMS/HCC) (HCC) Cerebral palsy (HCC) 194 Frequent urination Headache Hypertension Palpitations LABS: CBC: Recent Labs 12/24/2433312/24/248 12/25/2420512/26/24 015 WBC 10.9* -- 8.7 14.9* RBC 3.00* -- 3.14* 3.31* HGB 8.7* < > 9.2* 10.5 9.5* HCT 27.9* -- 28.7* 29.6* MCV 93.0 -- 91.4 89.4 RDW 15.9* -- 16.1* 16.3* PLT 445* -- 449* 474* < > = values in this interval not displayed. BMP: Recent Labs 12/24/2433312/25/2420512/26/24 015 NA 142 139 135* K 3.8 4.0 4.0 CL 110* 108* 105 CO2 26 26 22* BUN 14 14 15 CREATININE 0.50* 0.53* 0.52* GLUCOSE 114 140* 134* CALCIUM 8.2* 8.4* 8.3* ANIONGAP 6 5 8 LIVER PROFILE: Recent Labs 12/24/2433312/25/2420512/26/24 015 AST 38* 32 32 ALT 23 25 23 BILITOT 0.2 0.3 0.5 ALKPHOS 61 71 68 PROT 5.2* 5.8* 5.7* PT/INR: Recent Labs 12/24/24333 PROTIME 12.0 INR 1.1 CARDIAC ENZYMES: No results for input(s): "TROPONINI" in the last 72 hours. Procalcitonin: Lab Results Component Value Date PROCAL 0.10 (H) 12/26/2024 COVID-19 PCR: No results for input(s): "COVID19" in the last 72 hours. Objective: Vitals: BP 153/88 (BP Location: Left arm) Pulse (!) 141 Temp 37.9 C (100.2 F) (Rectal) Resp (!) 31 Ht 5' 4.02" (1.626 m) Wt 107 lb 12.9 oz (48.9 kg) SpO2 94% BMI 18.50 kg/m Pulse Ox: SpO2 Av.2 % Min: 88 % Max: 97 % Supplemental O2: O2 Flow Rate (L/min): 6 L/min Physical Exam Vitals and nursing note reviewed. Constitutional: Appearance: Normal appearance. Comments: Chronically ill, nontoxic-appearing Cardiovascular: Rate and Rhythm: Normal rate. Pulmonary: Effort: Pulmonary effort is normal. Abdominal: General: Abdomen is flat. Neurological: Mental Status: She is alert. Psychiatric: Mood and Affect: Mood normal. Behavior: Behavior normal. Medications: amLODIPine, 5 mg, Oral, Daily apixaban, 5 mg, Oral, BID cefTRIAXone, 2,000 mg, IntraVENous, q24h chlorhexidine, , Topical, Daily guaiFENesin, 200 mg, Oral, TID lisinopril, 20 mg, Oral, Daily Melatonin, 0.3 mg, SubLINGual, Nightly metoprolol tartrate, 25 mg, Oral, BID pantoprazole, 40 mg, Oral, Nightly Or pantoprazole (ProtoNix) 40 mg in sodium chloride (PF) 0.9 % 10 mL injection, 40 mg, IntraVENous, Nightly polyethylene glycol (PEG) 3350, 17 g, Per G Tube, Daily senna-docusate sodium, 2 tablet, Per G Tube, Daily sodium chloride 0.9%, 5-40 mL, IntraCATHeter, q8h stomahesive in petrolatum, , Topical, TID vancomycin, 1,250 mg, IntraVENous, q24h Extended Emergency Contact Information Primary Emergency Contact: Key Dickinson Relation: Relative Secondary Emergency Contact: Kadi Dickinson Relation: Sibling Hussain Younger MD Division of Hospitalist Medicine [facility] Nutrition Assessment Type and Reason for Visit: Reassess Nutrition Recommendations/Plan: Continue EN via PEG of Vital 1.5 @ 40 mL/hr to provide 1440 kcals + 159 kcals propofol, 65 gm protein and 733 mL free H2O (29 kcal/kg & 1.2 gm protein/kg IBW <55kg>). Current weights inaccurate d/t envella bed todays reading was 107#(since 12/17). UBW [employer] was 135-140#. RDN to continue to monitor weekly: fluid accumulation, weight, skin integrity, trends in lab values, ability to meet >75% estimated needs via PO and ONS, improvement in clinical status, discharge planning. Malnutrition Assessment: (Per RD assessment 12/22/24) Malnutrition Status: At risk for malnutrition (Comment) Context: Acute Illness Findings of the 6 clinical characteristics of malnutrition: Energy Intake: Mild decrease in energy intake (Comment) (Noted recent hx of aspiration and esophagitis resulting in PEG tube placement and PO diet of pureed and nectar liquids at [facility]. Pt has been tolerating TF at goal rate + daily propofol calories since 12/14, providing average of 29.5 kcal/kg) Weight Loss: Unable to assess (Very limited weight hx [employer] but UBW appeared to be between 135-140#. Weights this admit were >144# until placed on envella bed 12/17 and subsequent weights now 110-115# which are inaccurate) Body Fat Loss: No significant body fat loss Muscle Mass Loss: Unable to assess Fluid Accumulation: Moderate to Severe Generalized, Extremities Education Professional Strength: Not Performed Nutrition Assessment: Since last RD visit, patient extubated on 12/23 but since extubation has experienced delrium and was given seroquel. Patient tolerating antibiotics and will need PICC to be on 8 week course. Held diuressis since 12/24 due to being euvolemic. T CEILING INSULATION BLOWER saw patient 12/24 and found S/s oropharyngeal dysphagia. + overt clinical s/s pulmonary compromise with PO. Risk factors for aspiration include CP, esophagitis s/p PEG, ? Hx aspiration. Recommends strict NPO and feeding via PEG. TF running at goal today. Patient having tachycardia with HR sustaining 140s on monitor. BP-166/109 R-22 T-98.8. she got a dose of IV lopressor 5mg this am and a dose of IV lopressor 2.5mg yesterday evening. She also received 500ml bolus this morning and has her second one running currently. Her temp when she got here was 100. PRN lopressor added and CXR done. Patient was asleep when visiting and would not wake to name. On envella bed. RD ot continue to follow. Estimated Daily Nutrient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 Anxiety Restlessness MEDICATIONS No current facility-administered medications on file prior to encounter. No current outpatient medications on file prior to encounter. REVIEW OF SYSTEMS Pertinent items are noted in HPI. Objective: BP 159/93 (BP Location: Right arm, Patient Position: Lying) Pulse 106 Temp 37.8 C (100 F) (Temporal) Resp 20 Ht 5' 4.02" (1.626 m) Wt 107 lb 12.9 oz (48.9 kg) SpO2 94% BMI 18.50 kg/m PHYSICAL EXAM General appearance: in no apparent distress, moderately ill, and toxic Skin: warm and dry Pulmonary: intubated Abdomen: soft, nontender, and nondistended Sacrum: Wound bed with slough, pink tissue and dry peeling skin. Area nonblanchable. Rubia wound intact with blanchable erythema. 12/23/24 LABS CBC: Lab Results Component Value Date WBC 8.7 12/25/2024 HGB 9.2 (L) 12/25/2024 HGB 9.4 12/24/2024 HCT 28.7 (L) 12/25/2024 MCV 91.4 12/25/2024 PLT 449 (H) 12/25/2024 BMP: Lab Results Component Value Date NA 139 12/25/2024 K 4.0 12/25/2024 CL 108 (H) 12/25/2024 CO2 26 12/25/2024 PHOS 3.2 12/25/2024 BUN 14 12/25/2024 CREATININE 0.53 (L) 12/25/2024 PT/INR: Lab Results Component Value Date PROTIME 12.0 12/24/2024 INR 1.1 12/24/2024 Prealbumin: No results found for: "PREALBUMIN" Albumin:No components found for: LABALBU Sed Rate:No results found for: SEDRATE Micro: No components found for: BC Assessment/Plan: Nursing staff to perform dressing change: Sacrum: Unstageable Pressure Injury - improving -Cleanse area soap and water apply E.T. mix TID and PRN -Envella -waffle chair cushion -Q2hr/PRN turns -glide sheets for T&R -continence checks Q1-2 Hrs/PRN Nutritional support Wound Care to follow Recommend to follow up at [facility] wound [facility] center after hospital discharge. Any questions or concerns please secure chat "ACH wound/ostomy". Thank you for the consult! I personally obtained the lamb and critical portions of the history and physical exam. I reviewed the labs, imaging studies, and electronic medical record. I reviewed the chart documentation and discussed the patient with treatment team members. I have edited the note to reflect my clinical findings and my assessment and plan. Please note, the time of this note does not reflect the time I saw this patient today, but the time of this documentaton. Portions of this note including HPI, ROS, impression/plan, and examination may have been copied forward from admission to today as to provide important historical information essential in contributing to medical decision making. Documentation has been reviewed and edited as necessary to support clinical decision making for today's visit and to reflect my own independent evaluation of this patient. Decision making for today's visit and to reflect my own independent evaluation of this patient. Cosigned by Sunil Irvin DO at 12/28/2024 4:36 PM EDT Images from the original note were not included. Speech-Language Pathology SPEECH LANGUAGE PATHOLOGY [facility] Dysphagia Treatment Note Patient Name: Claritza Burton Evaluation Date: 12/25/2024 Date of : 1945 Admission Date: 12/13/2024 12:37 PM Age: 79 y.o. Room/Bed: T2220/T2220 A Subjective Patient alert and cooperative. Seen upright in bed. Answers some basic questions with weak vocal quality. Follows all basic commands. No visitors at bedside. Spoke with KHANH Lucas who cleared pt for treatment. Current Diet: Dietary Orders (From admission, onward) Start Ordered 12/24/24 1045 Diet, tube feeding no tray PEG; Vital 1.5 Davide; Continuous; Yes; 10; Q 6 Hours; 10; 40 Diet effective now Question Answer Comment Route: PEG Formula: Vital 1.5 Davide Delivery Method: Continuous Continuous Advance Tube Feeding? Yes Advancement Volume (mL/hr) 10 Advancement Frequency: Q 6 Hours Continuous Initial Rate (Recommended mL/hr) 10 Continuous Goal Rate (Recommended mL/hr) 40 12/24/24 1044 Aspiration Precautions: - Head of bed 30 degrees or higher during feeds - Frequent oral care Oxygen: Oxygen Therapy: Supplemental oxygen O2 Delivery Method: Nasal cannula O2 Flow Rate (L/min): 2 L/min Pain: Pt denies any current pain. PPE Worn: gloves Objective & Assessment Dysphagia Treatment # of Activities: 1 Dysphagia Activity 1: rebse Pt trialed ice chips x1 and water via teaspoon x2. Pt had a delayed swallow onset and clinically reduced hyo-laryngeal elevation. Following each trial, pt had a wet cough and a wet vocal quality. Moderate amount of each bolus was suctioned from back of pt's oral cavity. Suspect posterior loss of bolus and aspiration. No further trials were tested. Question if this is pt's baseline function. Hard chart indicates presence tube feed orders via PEG and puree/mildly thick. Unclear what pt was previously tolerating. Plan & Recommendations Continue acute CEILING INSULATION BLOWER therapy per initial plan of care and established goals. Recommend strict NPO and PEG D/C Recommendations: to be determined Education Education Given: diet recommendations Given To: patient Response: no evidence of learning Goals Patient Stated Goal: None stated Encounter Problems Encounter Problems (Active) Swallowing Patient will tolerate therapeutic trials of recommended consistency without clinical signs and symptoms of aspiration (Initiated) Start: 12/25/24 Expected End: 01/08/25 Encounter Problems (Resolved) Swallowing Patient will participate in repeat clinical dysphagia evaluation (Completed) Start: 12/24/24 Expected End: 01/07/25 Resolved: 12/25/24 Therapy Time CEILING INSULATION BLOWER Individual Minutes Time In: 0832 Time Out: 0844 Minutes: 12 Olga Alvarado CEILING 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 PHYSICAL THERAPY [facility] Initial Evaluation Name/MRN: Claritza Burton ([id number]) Evaluation Date: 12/24/2024 Date of : 1945 Admission Date: 12/13/2024 12:37 PM Age: 79 y.o. Room/Bed: T2-220/T2-220 A Discharge Recommendation: LTACH, [facility] Equipment Needed: No Assessment IMPRESSION: 79 y.o. pt admitted to [facility] for acute hypoxic respiratory failure and sepsis, PMHx of CP and multiple sickness with several admission lately. They were dependent x2 for bed mobility, and dependent x1 for all seated balance. Poor trunk control, minimal alertness and participation. Would recommend LTACH vs. SNF at discharge. Admitting Diagnosis: acute hypoxic respiratory failure and sepsis Prognosis: poor Performance Deficits /Impairments: Increased Pain, Decreased Functional Mobility, Decreased ADL status, Decreased Strength, Decreased Endurance, Decreased Balance, Decreased ROM, Decreased Cognition, Decreased Coordination, and Decreased Posture Decision Making: High Complexity Subjective Agreeable to PT session. Cleared by nursing. Minimal eye opening for session. Session began at end of OT session with pt seated EOB. Pain: Price-Drake Pain Ratin = Hurts whole lot Pain Location: bottom and R hip Past Medical History: Past Medical History: Diagnosis Date Anxiety Cancer ([facility]/HCC) ([facility]) Cerebral palsy ([facility]) 1946 Frequent urination Headache Hypertension Palpitations Past Surgical History: Past Surgical History: Procedure Laterality Date BLADDER SURGERY 2010 EYE SURGERY cataract HIP FRACTURE SURGERY Left 2000 HYSTERECTOMY ORTHOPEDIC SURGERY TONSILLECTOMY (HISTORICAL) Admission Diagnosis: Patient Active Problem List Diagnosis Date Noted Acute hypoxemic respiratory failure ([facility]) 12/13/2024 Essential hypertension 09/04/2017 Heart palpitations 09/04/2017 Other cerebral palsy ([facility]) 09/04/2017 History of bladder cancer 09/04/2017 Age-related osteoporosis without current pathological fracture 09/04/2017 Medical Precautions: No active isolations Proper PPE donned/doffed in accordance with facility standards. Fall Risk: Castaneda Fall Risk Score: 75 (High Risk) Precautions/Restrictions: Lines/Drains/Airways: CVC, PIV, PEG, puentes, envella bed Fall Precautions Family/Caregiver Present: none Overall Cognitive Status: Exceptions - Following commands: follows one step commands with increased time and follows one step commands with repetition - Safety judgement: decreased awareness of need for assistance and decreased awareness of need for safety - Insights: decreased awareness of deficits - Initiation: requires cues for all - Sequencing: requires cues for all Overall Orientation Status: Oriented to Person Vision: Not Assessed Hearing: normal Social/Functional History Patient admitted from [facility] . Assistive Equipment: Pt states she uses FWW and cane, however is poor historian. Prior Level of Function Prior Level of ADL Function: Required Assist Prior Level of Mobility: Required Assist; Device: unknown Prior Level of Transfers: Required Assist Objective Lower Extremity Assessment AROM: Impaired: pt able to minimally wiggle toes, otherwise unable to follow commands for BLE movement PROM: Impaired: Pt resistive to movement, able to achieve at least 50% of all Strength: Exceptions: 2/5 feet and ankles, 1/5 in R hip, otherwise appears 0/5 Sensation: WFL Balance: Balance During Session: Posture: poor Sitting - Static: Dependent Sitting EOB ~2 min with heavy retrograde leaning, pt unable to correct. Bed Mobility: Sit to supine: Dependent, x2 Person Assist BLE and trunk assist with use of glide sheet. Cues for pt assist without participation Transfers Unable to assess Ambulation Did not assess this session. Outcome Measures AM-PAC How much HELP from another person do you currently need Turning from your back to your side while in a flat bed without using bedrails?: Total Moving from lying on your back to sitting on the side of a flat bed without using bedrails?: Total Moving to and from a bed to a chair (including a wheelchair)?: Total Standing up from a chair using your arms (wheelchair or bedside chair)?: Total Walking in a hospital room?: Total Stair climbing assessed?: No AM-PAC Inpatient Mobility Raw Score (No Stairs) : 5 JH-HLM -HLM Score: Sat at edge of bed Plan Pt would benefit from skilled acute PT services to address Strengthening, Gait Training, Balance Training, Functional Mobility Training, Endurance Training, Safety Education and Training, Stair Training, Equipment Evaluation/Education, Neuromuscular Re-Education Training, and Patient/Caregiver Training. Frequency: 1x/week for 4 weeks Barriers: Pain, Impaired balance, Lower extremity weakness, Upper extremity weakness, Decreased endurance, Limited safety awareness, Confusion, Cognitive deficit, Dizziness, Decreased motivation, and Limited participation Safety/Education Safety Safety Devices in place: call light within reach, left in bed, and nurse notified Restraints: No Education Education Given To: patient Education Provided: PT Role, PT Goals, Plan of Care, Fall Prevention Education, and Benefits of Increasing Activity Education Method: Verbal Barriers to Learning: Cognition Education Outcome: Unable to Verbalize, Unable to Demonstrate, and Continued Education Needed Goals Patient Stated Goal: Patient unable to participate in goal setting at this time. Encounter Problems Encounter Problems (Active) Balance Patient will maintain static sitting balance for 2 minutes with SBA in order to demonstrate improved postural control and prepare for out of bed mobility. Start: 12/24/24 Expected End: 01/21/25 Patient will maintain dynamic sitting balance for 1 minutes with CGA in order to demonstrate improved postural control and prepare for out of bed mobility. Start: 12/24/24 Expected End: 01/21/25 Transfers Patient will perform bed mobility with min assist in order to improve independence and prepare for out of bed mobility. Start: 12/24/24 Expected End: 01/21/25 Patient will complete functional transfer with least restrictive device with min assist in order to prepare for ambulation. Start: 12/24/24 Expected End: 01/21/25 Therapy Time Individual Co-Treatment Co-Evaluation Time In 0936 Time Out 0948 Minutes 12 Timed Code Treatment Minutes: (high eval) Juanita Stallings PT Patient's Physical Therapy Plan of Care supervision is transferred to a [facility] Physical Therapist. Goals and/or treatment plan was established in collaboration with patient/family/other representatives. ICU Progress Note Name: Claritza Burton : 1945(79 y.o.) Date: 12/24/24 Team: MICU Attending: Dr. Kerr Subjective: Hospital Summary: 79 yo F PMH cerebral palsy, PE/DVT on Eliquis, aspiration, esophagitis s/p PEG, recent hospitalizations for parainfluenza, hyponatremia, influenza A and Strep bacteremia who presented to [facility] ED from [facility], (there for 72 hours after the last hospitalization) with acute respiratory failure with pulmonary edema. Initial O2 sats noted to be the 60s, patient intubated and noted to be hypotensive thus was fluid resuscitated. She was noted to be hypertensive and had urinary retention. WBC [address] infiltr[address] abd/pelvis with concerns for osteomyelitis and discitis at L5-S1 as well as L common femoral vein thrombus. CTA chest demonstrated 1cm percardial effusion. Transferred to [facility] ICU for further management. Infectious workup while in ICU has been unrevealing. MRI does shows signs of L5-S1 discitis/osteomyelitis without other spine impact. Ortho is following and recommending extended IV abx for now and surgery later for spinal stability purpose. Remained intubated and sedated. Extubated on 12/23/24 Interval Events: Patient was successfully extubated last night. She was actually following commands and able to talk about cats with RN at bedside. However she was quite agitated Earlier this morning, requiring seroquel. Therefore she was quite sleepy during my assessment. At best, patient was able to follow commands, opening her eyes to verbal commands. Otherwise HDS. Scheduled Meds:apixaban, 5 mg, Oral, BID cefTRIAXone, 2,000 mg, IntraVENous, q24h chlorhexidine, , Topical, Daily guaiFENesin, 200 mg, Oral, TID Melatonin, 0.3 mg, SubLINGual, Nightly pantoprazole, 40 mg, Oral, Nightly Or pantoprazole (ProtoNix) 40 mg in sodium chloride (PF) 0.9 % 10 mL injection, 40 mg, IntraVENous, Nightly polyethylene glycol (PEG) 3350, 17 g, Per G Tube, Daily senna-docusate sodium, 2 tablet, Per G Tube, Daily sodium chloride 0.9%, 5-40 mL, IntraCATHeter, q8h stomahesive in petrolatum, , Topical, TID Continuous Infusions: Objective: Last Vitals: BP MAP 160/86 (12/24/24 1000) 107 (12/24/24 1000) Arterial BP MAP Temp 36.1 C (97 F) (12/24/24 0800) Pulse 114 (12/24/24 1200) Resp (!) 26 (12/24/24 1000) SpO2 97 % (12/24/24 1000) Weight 50.8 kg (111 lb 15.9 oz) (12/24/24 0600) BMI Body mass index is 19.21 kg/m . I/O: 12/23 0700 - 12/24 0659 In: 2298 [I.V.:1114] Out: 2240 [Urine:2240] Ventilator: Ventilation Day(s): 1 Resp Rate (Set): 14 Vt (Set, mL): 350 mL IP Set (cm H2O): 6 cm H2O FiO2 (%): 30 % PEEP/CPAP (cm H2O): 8 cm H20 Inspiratory Time (sec): 0.9 sec Oxygen Delivery: O2 Flow Rate (L/min): 2 L/min Invasive Lines / Tubes / Drains: CVC Triple Lumen 12/13/24 Right Internal jugular (Active) Number of days: 0 Peripheral IV 12/13/24 Anterior;Right Forearm (Active) Number of days: 0 Urethral Catheter (Active) Number of days: 0 ETT 7.5 mm (Active) Number of days: 0 Enterostomy PEG Gastric (Active) Number of days: 0 Central Line Indication: Inadequate peripheral access despite documented ultrasound attempts AND unable to place extended dwell PIV Puentes Indications: Acute urinary retention or urinary obstruction and Hourly I&Os (Critical Care ONLY) Restraints: Restraints Non-Violent Or Non-Self Destructive Dec 13, 2024 12:57 Pm Edt Restraint order already placed. Order is valid for duration of episode. Wounds: Constitutional: General Appearance []WDWN []Obese [x]Cachectic [x]Thin [x]Ill Eyes: Inspection of Pupils/Irises Pupils round and react: [x]Yes []No Sclera: []Icteric [x]Non-Icteric Inspection of Conjunctiva/Lids Conjunctiva: []Injected [x]Non-Injected Lids: [x]Intact []Lesion Present ENT/Mouth: External Inspection of ears/nose [x] Normal [] Scar/Lesion/Mass Inspection of teeth/lips/gums Dentition: [][place] Teeth []Dentures Lips/Gums: [x]Intact []Lesion Present Mucosa: [x][place] [x]Moist []Dry Neck: External Appearance Overall Appearance: [x]Normal []Lesion/Mass/Crepitus Present Trachea midline: [x]Yes []No Thyroid [x]Normal []Enlarged []Tender []Mass []Absent Respiratory: Respiratory effort []Labored [x]Non-Labored [] Mechanically-Ventilated Auscultation - decreased breath sounds []Clear [x]Crackles []Wheezes []Rhonchi Cardiovascular: Auscultation Rate: [x]Regular []Irregular []Tachycardia []Bradycardia Rhythm: [x]Regular []Irregular Murmur: []Present [x]Absent Extremities Peripheral Edema: []Present [x]Absent Varicosities: []Present [x]Absent Gastrointestinal: Abdomen Palpation: [x]Soft []Firm []Tender [x]Non-Tender []Distended [x]Non-distended Mass: []Present [x]Absent Bowel Sounds: [x]Present []Absent Hernia: []Present []Absent Liver/Spleen: []Hepatosplenomegaly []Organomegaly Absent Musculoskeletal: Inspection of Digits and Nails Cyanosis: []Present [x]Absent Clubbing: []Present [x]Absent Ischemia: []Present [x]Absent Infection: []Present [x]Absent Extremities GERMAN Equally: Except ([]RUE []RLE []LUE []LLE) Strength/Tone: Intact and Normal ([]RUE []RLE []LUE []LLE) Skin: Inspection []Normal [x]Rash (small on left thigh) []Lesion []Ulcer Palpation [x]Warm []Cool [x]Dry []Clammy []Nodules []Induration []Skin-tightening Cap-Refill: [] <3 sec [] >3 seconds (delayed) Neurologic: GCS EYE: 3 - Opens to verbal commands GCS MOTOR: 6 - Obeys commands for movement GCS VERBAL: 3 - Inappropriate words Total GCS: 12 [] Sensation grossly intact Psych: Mental Status Alert: []Yes [x] No Oriented: [x]x0 []X1 []X2 []X3 - off sedation - remained intubated Mood/Affect [x]Normal []Flat []Agitated []Depressed []Anxious []Calm [x]Sedated [x]NAD [facility] within last 24 hours- BMP: Recent Labs 12/22/2441412/23/2415612/24/24 033 NA 138 139 142 K 4.0 4.1 3.8 CL 106 109* 110* CO2 BUN 14 14 14 CREATININE 0.49* 0.50* 0.50* CALCIUM 8.1* 8.4* 8.2* MG 2.5 2.6 2.4 PHOS 2.6 2.1* 2.5 LFTs: Recent Labs 12/22/2441412/23/2415612/24/24 033 AST 31 39* 38* ALT 14 20 23 PROT 5.1* 5.4* 5.2* ALBUMIN 1.9* 2.0* 2.0* BILITOT 0.2 0.2 0.2 ALKPHOS 60 65 61 Glucose: Recent Labs 12/22/2441412/23/2415612/24/24 033 GLUCOSE 130* 151* 114 Procal: No results for input(s): "PROCAL" in the last 72 hours. CBC: Recent Labs 12/22/2441412/23/2415612/23/24 0255 12/24/24 03312/24/24 0338 WBC 10.8* 13.5* -- 10.9* -- HGB 8.3* 8.9* 9.0 8.7* 9.4 HCT 26.7* 27.7* -- 27.9* -- PLT 403 413 -- 445* -- MCV 93.0 92.0 -- 93.0 -- RDW 16.2* 16.1* -- 15.9* -- ABGs: Recent Labs 12/22/24 0354 12/23/24 0255 12/24/24 0338 PHART 7.502* 7.504* 7.518* [id number] 37.5 36.5 34.3* PO2ART 96.4 101.5* 88.5 [id number] 28.7* 28.1* 27.3* [id number] Ventilator Ventilator Nasal Cannula (LPM) Lactic Acid: No results for input(s): "LACTATE" in the last 72 hours. INR: Recent Labs 12/22/24 0415 12/23/24 0157 12/24/24 0334 INR 1.1 1.1 1.1 Cardiac Injury Profile: Recent Labs 12/22/24414 CKTOTAL 11* Labs in Last 3 months: Lab Results Component Value Date TSH 0.68 12/13/2024 INR 1.1 12/24/2024 Microbiology- Urine Cx: Lab Results Component Value Date URINECX No growth (<1,000 CFU/mL) 12/13/2024 Blood Cx: Lab Results Component Value Date BLOODCX No growth at 5 days 12/13/2024 Sputum Cx: Lab Results Component Value Date RESPCULT Few respiratory reba present. 12/14/2024 Gram Stain: Lab Results Component Value Date LABGRAM 12/16/2024 Many Polymorphonuclear leukocytes per low power field LABGRAM No organisms seen 12/16/2024 PNA PCR: Lab Results Component Value Date HUMANMETAPNE Not Detected 12/14/2024 COVID19: No results found for: COVID19 Legionella Ag: Lab Results Component Value Date LEGIONELLAPN Not Detected 12/14/2024 Strep Ag: No results for input(s): "STREPPNEUMO" in the last 72 hours. Imaging- abnormal CT Chest Abd/Pelvis Assessment and Plan: Principal Problem: Acute hypoxemic respiratory failure (HCC) Assessment: Acute Respiratory Failure with Hypoxia 2/2 to influenza A and parainfluenza PNA Metabolic encephalopathy Chronic Osteomyelitis/discitis L5-S1 s/p biopsy, path neg, gram stain neg. 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 Doing well on NC. Off sedation. Mentation improving. Unrevealing infectious workup. Blood culture negative for 48 hours. ID is following. IV abx de-escalate to ceftriaxone for 8 week total course with end date 02/10. PICC line will be needed. S/p bone biopsy 12/16 - culture negative 48 hours, no organisms seen on gram stain. No surgical intervention from Ortho for now though pt will benefit for spinal stability support. Continue eliquis for DVT. Continue tube feeds via PEG. Keep NPO per speech eval. Will continue to hold off diuresis today as patient appears to be euvolemic. Monitor I's and O's unremarkable formal TTE for vegetation evaluation. Some diastolic dysfunction, expected with age, pulmonary artery systolic pressure not found in echo to calculate the H2PEF score. Daily labs and replete lites as needed Delirium protocol. Added scheduled melatonin nightly and seroquel 12.5mg nightly prn. Stable for floor transfer. Discussed with hospitalist. GI Prophylaxis: Pantoprazole IV DVT Prophylaxis: Full anticoagulation Disposition: Transfer to telemetry Cosigned by Valentina Kerr MD at 12/24/2024 5:59 PM EDT Associated attestation - Valentina Kerr MD - 12/24/2024 5:59 PM EDT I have personally performed a [id number] diagnostic evaluation on this patient on date of service 12/24/24. History, labs, imaging studies, and electronic medical record have been reviewed by me. This note documented by the [x]wash house worker []MARISOL reflects my history, exam, and medical decision making. I have reviewed and agree with the care plan. Changes were made in the orders as necessary. ROS documentation was reviewed and negative unless otherwise stated in HPI. Assessment: Acute hypoxic respiratory failure influenza A/parainfluenza PNA Discitis/osteomyelitis L5-S1 (suspect 2/2 prior episode bacteremia) Hx PE/LLE DVT on DOAC prior to admission Urinary retention w/chronic puentes s/p hx bladder cancer Plan: CEILING [employer]ATION BLOWER recommending continuing strict NPO and using PEG for meds Resume tube feeds via PEG Persistent delirium post-extubation Schedule melatonin qHS PRN seroquel 12.5 mg qHS Concerned for ongoing aspiration despite NPO/PEG, given appearance of CT chest - may consider repeat CT imaging and further w/u if hypoxia persists of if developing recurrent pneumonia ICU Transfer Checklist Transfer Med Reconciliation (resume home meds if able, convert to PO if able) Complete Antibiotics (name, indication, duration, convert to PO if able) Yes, addressed in today's progress note Steroid (indication, duration, convert to PO if able) None Anticipated [place] Medications (ICU initiated) or Dose Changes and Indication Yes, addressed in today's progress note Permanently Discontinued Home Medications and Reason for medication contraindication Yes, addressed in today's progress note Puentes Catheter (please remove if able. Note: place DC order) Yes, indication incontinence chronic puentes Central Line (please remove if able. Note: place DC order) Yes, indication - will remove Transfer Discussed with: Dr. Willis - [facility] attending If additional questions for ICU team within 24 hours of ICU transfer, page ICU resident for clarifications. Images from the original note were not included. OCCUPATIONAL THERAPY [facility] Initial Evaluation Name/MRN: Claritza Burton ([id number]) Evaluation Date: 12/24/2024 Date of : 1945 Admission Date: 12/13/2024 12:37 PM Age: 79 y.o. Room/Bed: T2-220/T2-220 A Discharge Recommendation: [facility], LTACH, Continue to assess pending progress Assessment IMPRESSION: Pt admitted to [facility] for respiratory failure. PMH cerebral palsy. Prior to admission, was living at [facility] and required assist for ADLs and functional mobility. Now completed bed mobility with total assist x 2, sat EOB with total assist. Total assist for ADLs at this time due to significant weakness and impaired cognition. The pt is most limited by weakness, cognition, and fatigue and would benefit from continued therapy services to maximize independence in ADLs and safe transfers. SNF vs LTAC recommended at discharge. Admitting Diagnosis: Acute hypoxic respiratory failure Performance Deficits /Impairments: Increased Pain, Decreased Functional Mobility, Decreased ADL status, Decreased Strength, Decreased Safety Awareness, Decreased Endurance, Decreased Balance, Decreased ROM, and Decreased High Level IADLs Prognosis: Fair Decision Making: Medium Complexity Subjective Pt seen supine in bed, cleared by RN. In Envella bed. Pt able to answer all questions but has eyes closed most of session. Pain: No facial grimaces noted Past Medical History: Past Medical History: Diagnosis Date Anxiety Cancer ([facility]) ([facility]) Cerebral palsy ([facility]) 1946 Frequent urination Headache Hypertension Palpitations Past Surgical History: Past Surgical History: Procedure Laterality Date BLADDER SURGERY 2009 EYE SURGERY cataract HIP FRACTURE SURGERY Left 2000 HYSTERECTOMY ORTHOPEDIC SURGERY TONSILLECTOMY (HISTORICAL) Admission Diagnosis: Patient Active Problem List Diagnosis Date Noted Acute hypoxemic respiratory failure ([facility]) 12/13/2024 Essential hypertension 09/04/2017 Heart palpitations 09/04/2017 Other cerebral palsy ([facility]) 09/04/2017 History of bladder cancer 09/04/2017 Age-related osteoporosis without current pathological fracture 09/04/2017 Medical Precautions: No active isolations Proper PPE donned/doffed in accordance with facility standards. Fall Risk: Castaneda Fall Risk Score: 75 (High Risk) Precautions/Restrictions: Lines/Drains/Airways: CVC, PIV, PEG, puentes Fall Precautions Family/Caregiver Present: none Overall Cognitive Status: Exceptions - Arousal/alertness: delayed responses to stimuli - Following commands: follows one step commands with increased time and follows one step commands with repetition - Attention span: difficulty attending to directions - Memory: decreased recall of biographical information, decreased recall of precautions, and decreased recall of recent events Overall Orientation Status: Oriented to Person Social/Functional History Patient admitted from [facility] . Assistive Equipment: Pt states she uses FWW and cane, however is poor historian. Prior Level of Function Prior Level of ADL Function: Required Assist Prior Level of Mobility: Required Assist; Device: Unknown Prior Level of Transfers: Required Assist Objective ADLs LE Dressing: Dependent Upper Extremity Assessment AROM: Impaired: Pt completes shoulder flexion ~30 degrees. PROM: WFL Strength: Exceptions: generalized weakness BUE Bed Mobility Supine to sit: Dependent, x2 Person Assist Transfers/Mobility Sitting balance: Dependent, Pt with significant retro lean, Needs total assist to sit EOB Device(s) used: None AM-PAC AM-PAC Inpatient Daily Activity Raw Score: 6 ADL Inpatient [facility] G-Code Modifier: CN Plan Pt would benefit from skilled acute OT services to address Strengthening, ROM, Gait Training, Balance Training, Self-Care/ADL Training, Functional Mobility Training, Endurance Training, Safety Education and Training, and Pain Management. Frequency: 2x/week for 4 weeks Barriers: Pain, Impaired balance, Lower extremity weakness, Limited safety awareness, and Decreased endurance Safety/Education Safety Safety Devices in place: All fall risk precautions in place and call light within reach Restraints: No Education Education Given To: patient Education Provided: OT Role and Plan of Care Education Method: Verbal Barriers to Learning: None Education Outcome: Verbalized Understanding Goals Patient Stated Goal: Unable to state Encounter Problems Encounter Problems (Active) Balance Patient will maintain static sitting balance for 2 minutes with mod assist in order to demonstrate improved postural control and prepare for out of bed mobility. Start: 12/24/24 Expected End: 01/21/25 Cognition Patient will attend to task for 1 minutes with no more than 1 cue Start: 12/24/24 Expected End: 01/21/25 Grooming Patient will complete daily grooming tasks with Min assist and Min VC Start: 12/24/24 Expected End: 01/21/25 Therapy Time Individual Co-Treatment Co-Evaluation Time In 0925 Time Out 0935 Minutes 10 Ray Santos OT Patient's Occupational Therapy Plan of Care supervision is transferred to a [facility] Occupational Therapist. Goals and/or treatment plan was established in collaboration with patient/family/other representatives. Images from the original note were not included. Speech-Language Pathology SPEECH LANGUAGE PATHOLOGY [facility] Bedside Swallow Evaluation Patient Name: Claritza Burton Evaluation Date: 12/24/2024 Date of : 1945 Admission Date: 12/13/2024 12:37 PM Age: 79 y.o. Room/Bed: T2-220/T2-220 A IMPRESSION: S/s oropharyngeal dysphagia. + overt clinical s/s pulmonary compromise with PO. Risk factors for aspiration include CP, esophagitis s/p PEG, ? Hx aspiration. RECOMMENDATION: Recommend strict NPO with PEG for nutrition Dysphagia NOMS: Level 1: Individual is not able to swallow anything safely by mouth. All nutrition and hydration is received through non-oral means (e.g., nasogastric tube, PEG). Pt would benefit from skilled acute [employer] [facility] services to address ongoing assessment of swallowing and to determine if instrumental assessment is indicated/if patient can adequately participate. Frequency: 3 days/wk for 2 weeks Barriers: Confusion and Decreased endurance Prognosis: guarded D/C Recommendations: to be determined Subjective Patient confused and cooperative. Seen upright in bed. Answers some basic questions with weak vocal quality. Follows some basic commands. RN at bedside. Spoke with RN Jeffrey/Shayy who cleared pt to be evaluated. Dysphagia History: No history of CEILING INSULATION BLOWER services in EMR with retrospective chart review. With review of hard chart, mention of hx aspiration however unable to locate most recent PO diet recommendations. Baseline Diet: Unable to determine- PEG most recently Current Diet: Dietary Orders (From admission, onward) Start Ordered 12/17/24 0549 Diet, tube feeding no tray PEG; Vital 1.5 Davide; Continuous; Yes; 10; Q 6 Hours; 10; 40 Diet effective now Question Answer Comment Route: PEG Formula: Vital 1.5 Davide Delivery Method: Continuous Continuous Advance Tube Feeding? Yes Advancement Volume (mL/hr) 10 Advancement Frequency: Q 6 Hours Continuous Initial Rate (Recommended mL/hr) 10 Continuous Goal Rate (Recommended mL/hr) 40 12/17/24 0548 Tube Feeding: yes, PEG Tracheostomy: no Recent Chest Xray/CT of Chest: XR chest 1 view 12/23/2024 Impression See findings. Report Dictated on Electronically Signed By: Christopher Carlson MD Electronically Signed Date/Time: 12/23/2024 5:53 AM EDT Oxygen: Oxygen Therapy: Supplemental oxygen O2 Delivery Method: Nasal cannula O2 Flow Rate (L/min): 2 L/min Past Medical History: Past Medical History: Diagnosis Date Anxiety Cancer ([facility]) ([facility]) Cerebral palsy ([facility]) 1946 Frequent urination Headache Hypertension Palpitations Past Surgical History: Past Surgical History: Procedure Laterality Date BLADDER SURGERY 2009 EYE SURGERY cataract HIP FRACTURE SURGERY Left 2000 HYSTERECTOMY ORTHOPEDIC SURGERY TONSILLECTOMY (HISTORICAL) Admission Diagnosis: Patient Active Problem List Diagnosis Date Noted Acute hypoxemic respiratory failure ([facility]) 12/13/2024 Essential hypertension 09/04/2017 Heart palpitations 09/04/2017 Other cerebral palsy ([facility]) 09/04/2017 History of bladder cancer 09/04/2017 Age-related osteoporosis without current pathological fracture 09/04/2017 History of Present Illness: 79 yo F PMH cerebral palsy, PE/DVT on Eliquis, aspiration, esophagitis s/p PEG, recent hospitalizations for parainfluenza, hyponatremia, influenza A and Strep bacteremia who presented to [place] ED from [facility], (there for 72 hours after the last hospitalization) with acute respiratory failure with pulmonary edema. Initial O2 sats noted to be the 60s, patient intubated and noted to be hypotensive thus was fluid resuscitated. She was noted to be hypertensive and had urinary retention. WBC [address] abd/pelvis with concerns for osteomyelitis and discitis at L5-S1 as well as L common femoral vein thrombus. CTA chest demonstrated 1cm percardial effusion. Transferred to [facility] ICU for further management. Infectious workup while in ICU has been unrevealing. MRI does shows signs of L5-S1 discitis/osteomyelitis without other spine impact. Ortho is following and recommending extended IV abx for now and surgery later for spinal stability purpose. Remained intubated and sedated. Interval Events: No acute overnight events. Earlier this morning, patient was quite tachycardic and mildly hypotensive. 1 L of IVF bolus given resulted problem. Patient remained intubated and sedated on Precedex. At best, patient was able to follow commands, opening her eyes to verbal commands. She has been doing well and passing SBT twice. However her ability to follow commands waxing and waning on minimal sedation. Otherwise remained afebrile and on minimal vent setting. Patient Complaint: Unable to state Pain: Patient did not respond to pain questioning PPE Worn: gloves Objective Bedside swallow eval completed. Oral Motor Mechanism Patient was not able to participate with a formal oral motor evaluation. Mouth did appear dry on visualization. Oral Hygiene: xerostomia Swallowing Examination PO Trials - ice chips, (teaspoon) Oral Phase Pt with impaired oral receipt of PO trials. No anterior spillage. Unable to assess mastication.. Oral transit time appears prolonged. No oral residue. Additional Observations: Suspect posterior loss of the bolus given open mouth posture. Pharyngeal Phase Hyolaryngeal excursion clinically appears reduced and delayed per palpation. 1 swallow palpated per bolus, likely indicative of adequate pharyngeal clearance. Overt clinical s/s pulmonary compromise with ice chips as evidenced by immediate cough. Additional Observations: Cough was wet and productive. Suctioned moderate amount of material from patient's posterior oral cavity - required repeated prompting to keep her mouth open. Patient attempting to push suction tip from her mouth with her tongue. Education Education Given: safety, diet recommendations, potential for additional diagnostic testing Given To: patient and RN Response: verbalizes understanding Goals Patient Stated Goal: "I want to go and say yes at the sikhism" Encounter Problems Encounter Problems (Active) Swallowing Patient will participate in repeat clinical dysphagia evaluation (Initiated) Start: 12/24/24 Expected End: 01/07/25 Therapy Time [facility]ING [employer]ATION [facility]OWER Individual Minutes Time In: 0850 Time Out: 0903 Minutes: 13 Yoly Yuan CCC-CEILING INSULATION BLOWER Images from the original note were not included. [facility] Wound Care progress Note Claritza Burton AGE: 79 y.o. GENDER: female : 1945 Subjective: HISTORY of PRESENT ILLNESS HPI Claritza Burton is a 79 y.o. female who presents for a wound care follow up. HPI: 79 yo F PMH cerebral palsy, PE/DVT on Eliquis, aspiration, esophagitis s/p PEG, recent hospitalizations for parainfluenza, hyponatremia, influenza A and Strep bacteremia who presented to [place] ED with acute respiratory failure with concerns for pulmonary edema. Wound Care consulted for pressure injury Patient resting in bed. Treatment noted at bedside. PAST MEDICAL HISTORY Past Medical History: Diagnosis Date Anxiety Cancer (CMS/HCC) (HCC) Cerebral palsy ([facility]) [birth year] Frequent urination Headache Hypertension Palpitations PAST SURGICAL HISTORY Past Surgical History: Procedure Laterality Date BLADDER SURGERY 2010 EYE SURGERY cataract HIP FRACTURE SURGERY Left 2000 HYSTERECTOMY ORTHOPEDIC SURGERY TONSILLECTOMY (HISTORICAL) FAMILY HISTORY Family History Problem Relation Name Age of Onset Cancer Mother Diabetes Father SOCIAL HISTORY Social History Tobacco Use Smoking status: Never Smokeless tobacco: Never Substance Use Topics Alcohol use: No Drug use: No ALLERGIES Allergies Allergen Reactions Amantadine Palpitations Other Reaction(s): Racing heart Amoxicillin-Pot Clavulanate Palpitations Other Reaction(s): Racing heart Amoxicillin Unknown Erythromycin Palpitations Other Reaction(s): Racing heart Erythromycin Base Unknown Lorazepam Anxiety Restlessness MEDICATIONS No current facility-administered medications on file prior to encounter. No current outpatient medications on file prior to encounter. REVIEW OF SYSTEMS Pertinent items are noted in HPI. Objective: BP 160/86 Pulse 114 Temp 36.1 C (97 F) (Temporal) Resp (!) 26 Ht 5' 4.02" (1.626 m) Wt 111 lb 15.9 oz (50.8 kg) SpO2 97% BMI 19.21 kg/m PHYSICAL EXAM General appearance: in no apparent distress and moderately ill Skin: warm and dry Pulmonary: intubated Abdomen: soft, nontender, and nondistended Sacrum: Wound bed with slough, pink tissue and dry peeling skin. Area nonblanchable. Rubia wound intact with blanchable erythema. Improving 12/23/24 LABS CBC: Lab Results Component Value Date WBC 10.9 (H) 12/24/2024 HGB 9.4 12/24/2024 HGB 8.7 (L) 12/24/2024 HCT 27.9 (L) 12/24/2024 MCV 93.0 12/24/2024 PLT 445 (H) 12/24/2024 BMP: Lab Results Component Value Date NA 142 12/24/2024 K 3.8 12/24/2024 CL 110 (H) 12/24/2024 CO2 26 12/24/2024 PHOS 2.5 12/24/2024 BUN 14 12/24/2024 CREATININE 0.50 (L) 12/24/2024 PT/INR: Lab Results Component Value Date PROTIME 12.0 12/24/2024 INR 1.1 12/24/2024 Prealbumin: No results found for: "PREALBUMIN" Albumin:No components found for: LABALBU Sed Rate:No results found for: SEDRATE Micro: No components found for: BC Assessment/Plan: Nursing staff to perform dressing change: Sacrum: Unstageable Pressure Injury - improving -Cleanse area soap and water apply E.T. mix TID and PRN -Envella - Currently resting on envella -waffle chair cushion -Q2hr/PRN turns -glide sheets for T&R -continence checks Q1-2 Hrs/PRN Nutritional support Wound Care to follow Recommend to follow up at [facility] wound care center after hospital discharge. Any questions or concerns please secure chat "ACH wound/ostomy". Thank you for the consult! I personally obtained the lamb and critical portions of the history and physical exam. I reviewed the labs, imaging studies, and electronic medical record. I reviewed the chart documentation and discussed the patient with treatment team members. I have edited the note to reflect my clinical findings and my assessment and plan. Please note, the time of this note does not reflect the time I saw this patient today, but the time of this documentaton. Portions of this note including HPI, ROS, impression/plan, and examination may have been copied forward from admission to today as to provide important historical information essential in contributing to medical decision making. Documentation has been reviewed and edited as necessary to support clinical decision making for today's visit and to reflect my own independent evaluation of this patient. Decision making for today's visit and to reflect my own independent evaluation of this patient. Cosigned by Sunil Irvin DO at 12/28/2024 4:36 PM EDT [facility] Respiratory Care Department Progress Note Spontaneous Awakening Trial Safety Screen Spontaneous Awakening Trial (SAT - RN) : Proceed with SAT - No exclusion criteria met (12/16/24944) Spontaneous Awakening Trial (SAT) Outcome: SAT pass (12/16/24944) Wean Screen SpO2>/=88%: Yes (12/23/24528) FiO2</=50%: Yes (12/23/24528) PEEP </=8cmH2O: Yes (12/23/24528) HR <140 BPM: Yes (12/23/24528) RR </= 35 breaths/min: Yes (12/23/24528) MAP >/= 65mmHg: Yes (12/23/24528) Arterial pH >7.30: Yes (12/23/24528) Safety Screen Spontaneous Breathing Trial (SBT - RT) : Proceed with SBT - No exclusion criteria met (12/23/24528) Spontaneous Breathing Trial Weaning Start Time: 528 (12/23/241612) Weaning Tidal Volume: 278 mL (12/23/241612) Weaning Respiratory Rate: 28 (12/23/241612) Spontaneous Minute Volume (MV): 7.05 (12/23/241612) Total RSBI: 100 (12/23/241612) Weaning Tolerance: Good (12/23/241612) Weaning Stop Time: 1612 (12/23/241612) Weaning Duration (min): 676 (12/23/241612) Spontaneous Breathing Trial (SBT - RT) Outcome: SBT Passed (12/23/241612) Vent Settings Vent Mode: Assist control (12/23/241612) Mandatory Type: Pressure Control (12/23/241612) Resp Rate (Set): 14 (12/23/241612) Vt (Set, mL): 350 mL (12/22/24854) IP Set (cm H2O): 6 cm H2O (12/23/241612) FiO2 (%): 30 % (12/23/241612) PEEP/CPAP (cm H2O): 8 cm H20 (12/23/241612) Inspiratory Time (sec): 0.9 sec (12/23/241612) Vitals MAP (mmHg): 89 (12/23/24 1500) Heart Rate: 97 (12/23/24 1613) Resp: (!) 34 (12/23/24 161) SpO2: 100 % (12/23/24 161) Suctioning/Secretions Secretion Amount: Moderate (12/23/24 1525) Secretion Color: Martinez (12/23/24 1525) Secretion Consistency: Thick (12/23/24 1525) ABG results Recent Labs 12/21/24 0517 12/22/24 0354 12/23/24 0255 PHART 7.510* 7.502* 7.504* [id number] 37.1 37.5 36.5 PO2ART 83.4 96.4 101.5* [id number] 28.9* 28.7* 28.1* [id number] Ventilator Ventilator Ventilator Does this patient meet criteria for termination of mechanical ventilation No - Ordered PSV Trials Name of physician notified via secure chat or in person : NA (NA if patient did not meet criteria) Comments: Thank you for involving Respiratory in the care of this patient, Family Communication Number Called: [phone] Name of Designated Family Guidance Consultant: Key Dickinson Relationship: niece Phone Call Outcome: I spoke with the individual listed above. Family Guidance Consultant Updated on the Following: Called and updated niece about current status as well as short-term plan of extubation and correction plan of extended IV abx via PICC line and OP surgery with ortho for spinal stability Images from the original note were not included. [facility] - Infectious Diseases Attending Progress Note Subjective: Following for influenza A/ VDRF and L5-S1 VO/diskitis with recent hx of Strep alactolyticus BSI (10/30/24- [place] treated with PO omnicef by ID) with back pain at that time. Remains in ICU on vent. FiO2 30%. Afebrile. Objective: Vitals: Patient Vitals for the past 24 hrs: BP Temp Temp src Pulse Resp SpO2 Weight 12/23/24 1200 109/59 36.4 C (97.6 F) Temporal 76 17 99 % -- 12/23/24 1150 -- 36.3 C (97.4 F) -- -- -- -- -- 12/23/24 1125 -- -- -- 92 23 99 % -- 12/23/24 1100 93/55 -- -- 75 20 99 % -- 12/23/24 1000 150/77 -- -- 92 19 100 % -- 12/23/24 0900 104/67 -- -- 79 21 98 % -- 12/23/24 0812 -- -- -- 88 22 100 % -- 12/23/24 0801 -- 36.1 C (96.9 F) -- -- -- -- -- 12/23/24 0800 131/63 36.2 C (97.1 F) Temporal 79 (!) 29 100 % -- 12/23/24 0600 131/63 -- -- 83 22 97 % 50.8 kg (111 lb 15.9 oz) 12/23/24 0529 -- -- -- 81 20 99 % -- 12/23/24 0525 -- -- -- 73 15 99 % -- 12/23/24 0511 (!) 86/47 -- -- 74 15 98 % -- 12/23/24 0500 (!) 84/46 -- -- 73 16 98 % -- 12/23/24 0400 108/53 36.7 C (98 F) Temporal 75 17 98 % -- 12/23/24 0300 109/87 -- -- 82 15 98 % -- 12/23/24 0206 -- -- -- 100 18 98 % -- 12/23/24 0200 131/57 -- -- 102 17 98 % -- 12/23/24 0100 115/72 -- -- (!) 127 14 98 % -- 12/23/24 0000 137/85 37.1 C (98.7 F) Temporal (!) 137 15 97 % -- 12/22/24 2300 129/82 -- -- (!) 134 23 98 % -- 12/22/24 2210 -- -- -- (!) 140 20 97 % -- 12/22/24 2200 136/86 -- -- (!) 140 (!) 27 97 % -- 12/22/24 2100 141/92 -- -- (!) 144 16 99 % -- 12/22/242015 -- -- -- 118 20 96 % -- 12/22/24 2000 (!) 161/82 36.5 C (97.7 F) Temporal 120 21 98 % -- 12/22/24 1900 149/79 -- -- 114 18 98 % -- 12/22/24 1800 157/86 -- -- (!) 145 17 98 % -- 12/22/24 1700 149/88 -- -- (!) 142 18 98 % -- 12/22/24 1628 -- -- -- 108 24 98 % -- 12/22/24 1600 142/70 36.8 C (98.3 F) Temporal 109 21 98 % -- 12/22/24 1500 143/69 -- -- 109 16 97 % -- Physical Exam Vitals and nursing note reviewed. Constitutional: Appearance: She is ill-appearing. Comments: On vent HENT: Head: Normocephalic. Nose: Nose normal. Mouth/Throat: Comments: + ETT Cardiovascular: Rate and Rhythm: Normal rate and regular rhythm. Pulmonary: Comments: Effort per vent; coarse BS Abdominal: General: There is no distension. Palpations: Abdomen is soft. Tenderness: There is no abdominal tenderness. Musculoskeletal: Comments: + arthritic joint changes; no synovitis or crepitance of any limb Skin: General: Skin is warm and dry. Coloration: Skin is not jaundiced. Findings: No rash. Neurological: Comments: sedated Labs: Lab Results Component Value Date/Time NA 139 12/23/2024156 K 4.1 12/23/2024156 CL 109 (H) 12/23/2024156 CO2 25 12/23/2024156 BUN 14 12/23/2024156 CREATININE 0.50 (L) 12/23/2024 015 GLUCOSE 151 (H) 12/23/2024 015 CALCIUM 8.4 (L) 12/23/2024 015 PROT 5.4 (L) 12/23/2024156 BILITOT 0.2 12/23/2024156 ALKPHOS 65 12/23/2024156 AST 39 (H) 12/23/2024156 ALT 20 12/23/2024 015 PROCAL 0.12 (H) 12/21/2024 0637 PROCAL 4.24 (H) 12/13/2024 1343 Lab Results Component Value Date/Time WBC 13.5 (H) 12/23/2024156 HGB 9.0 12/23/2024 0255 HGB 8.9 (L) 12/23/2024156 HCT 27.7 (L) 12/23/2024156 PLT 413 12/23/2024156 LYMPHOPCT 10.3 (L) 12/23/2024156 LYMPHOPCT 20 12/19/2024 0654 MONOPCT 7.3 12/23/2024156 MONOPCT 8 12/19/2024 0654 BASOPCT 0.4 12/23/2024156 BASOPCT 2 12/17/2024 0335 NEUTROABS 10.9 (H) 12/23/2024 015 Micro: 12/16- bone biopsy cx- NGTD 12/14- pneumonia PCR panel- + influenza A 12/14- resp cx- resp reba 12/14- CRAB PCR- negative 12/14- C auris PCR- negative 12/13- RVP- + influenza A 12/13- blood cx- negative 12/13- MRSA nasal PCR- negative 12/13- Legionella and Strep urine Ag- negative 12/13- urine cx- negative Brody: 10/30- blood cx- Strep alactolyticus hogan-S Lines: RIJ TLC (12/13) Puentes PEG Radiography/Echo/Other: 12/21- CXR- Pulmonary vascular congestion and/or infiltrates, similar to prior day. 12/17- MRI C-spine- No evidence of osteomyelitis discitis. No peripherally enhancing fluid collection to suggest an epidural or soft tissue abscess. Multilevel spondylosis most pronounced at C4-C5 where there is severe canal stenosis without cord compression. No underlying cord signal change. There is also moderate to severe canal stenosis at C3-C4 with cord flattening without underlying signal change. Multilevel variable foraminal stenosis as outlined, up to severe. 12/17- MRI T-spine- No evidence of osteomyelitis discitis. No peripherally enhancing fluid collection to suggest an epidural or soft tissue abscess. Findings suggesting recent (acute to subacute) Schmorl's nodes at the inferior endplates of T10 and T11. No significant canal or foraminal stenosis. Bilateral pleural effusions and associated opacities. 12/15- CT C-spine- 1. Moderate degenerative changes in the mid cervical spine. 2. Canal stenosis is most pronounced at C3-4 and C4-5. There is a mild impression on the ventral spinal cord. 3. No direct CT evidence of discitis/osteomyelitis on this unenhanced scan. 4. Mild inflammatory changes in the left mastoid air cells. This is nonspecific but may indicate mastoiditis. 5. There is a significant amount of cerumen/debris in the left external auditory canal. Please correlate with direct visualization. 12/15- MRI L-spine- Marrow signal changes of L5-S1 vertebral bodies with fluid signal of the disc are consistent with osteomyelitis discitis. No peripherally enhancing fluid collection to suggest an epidural or paraspinal abscess. Small Schmorl's node at the inferior endplate of T11 with mild edema and enhancement suggest acute to subacute Schmorl's node formation. Multilevel spondylosis as outlined. No high-grade canal stenosis. Multilevel foraminal stenoses, most pronounced at L5-S1. Anatomic Lumbar Variant: None. L4-5 is considered the level of the iliac crest and assume there are 5 lumbar-type vertebrae. 12/14- TTE- Left Ventricle: Left ventricle is smaller than normal. Normal wall thickness. Normal left ventricular systolic function. EF by 2D Simpsons Biplane is 67%. Normal wall motion. Grade I diastolic dysfunction with normal LAP. Right Ventricle: Right ventricle size is normal. Reduced systolic function. TAPSE is abnormal. Pericardium: Small (<1 cm) pericardial effusion present. Pericardial effusion is echolucent. Features indicating an absence of cardiac tamponade are present. No significant valvular abnormalities. 12/13- CT c/a/p- 1. Multifocal infiltrates concerning for multifocal pneumonia. 2. Small to moderate left pleural effusion. 3. Moderate pericardial effusion. 4. Moderate stool throughout the colon and a large amount of stool in the rectum. Consider constipation and/or fecal impaction. Perirectal fat stranding is present suggesting proctitis including stercoral proctitis. 5. Chronic osseous changes. Erosive changes at L5-S1. 12/13- CT brain- 1. No evidence of an intracranial mass, edema or parenchymal flexion. If there is persistent concern for an abnormality not seen by CT, consider MRI and/or CSF analysis, if appropriate. 2. Cerebral volume loss. White matter changes likely due to microangiopathic disease. 3. Nonspecific left mastoid effusion. An infectious process cannot be excluded. Antimicrobials, Start/End Dates: Ceftriaxone Impression: Influenza A with acute hypoxic respiratory failure/ VDRF L5-S1 culture-negative VO/ diskitis but with preceding Strep alactolyticus BSI (10/30/24) at [facility] treated with PO-- likely hematogenous seeding of spine - had colonoscopy at [facility] at time of bacteremia with mucosal irritation - s/p CT-guided biopsy (12/16) on abx Leukocytosis Pericardial effusion Hx bladder cancer with chronic puentes for urinary retention Hx VTE Augmentin allergy--> tolerates carbapenems Erythromycin allergy Plan: Continue ceftriaxone for a planned 8 weeks--> stop date 02/10. Targeting previous pathogen with bacteremia from [facility] in 09/2024 which likely occultly seeded her spine. Will need a PICC line. Ortho spine notes reviewed- may need stabilizing procedure in the near future given boy destruction. Influenza has been treated and out of isolation. Will follow. Based on diagnoses and management, combination of acute and chronic problems, exacerbations and/or acuity, this visit should be considered to be of moderate complexity. Margot Carver MD ICU Progress Note Name: Claritza Burton : 1945(79 y.o.) Date: 12/23/24 Team: MICU Attending: Dr. Kerr Subjective: Hospital Summary: 79 yo F PMH cerebral palsy, PE/DVT on Eliquis, aspiration, esophagitis s/p PEG, recent hospitalizations for parainfluenza, hyponatremia, influenza A and Strep bacteremia who presented to [facility] ED from [facility], (there for 72 hours after the last hospitalization) with acute respiratory failure with pulmonary edema. Initial O2 sats noted to be the 60s, patient intubated and noted to be hypotensive thus was fluid resuscitated. She was noted to be hypertensive and had urinary retention. WBC [address] with infiltr[address] abd/pelvis with concerns for osteomyelitis and discitis at L5-S1 as well as L common femoral vein thrombus. CTA chest demonstrated 1cm percardial effusion. Transferred to [facility] ICU for further management. Infectious workup while in ICU has been unrevealing. MRI does shows signs of L5-S1 discitis/osteomyelitis without other spine impact. Ortho is following and recommending extended IV abx for now and surgery later for spinal stability purpose. Remained intubated and sedated. Interval Events: No acute overnight events. Earlier this morning, patient was quite tachycardic and mildly hypotensive. 1 L of IVF bolus given resulted problem. Patient remained intubated and sedated on Precedex. At best, patient was able to follow commands, opening her eyes to verbal commands. She has been doing well and passing SBT twice. However her ability to follow commands waxing and waning on minimal sedation. Otherwise remained afebrile and on minimal vent setting. Scheduled Meds:apixaban, 5 mg, Oral, BID bisacodyl, 10 mg, Rectal, BID cefTRIAXone, 2,000 mg, IntraVENous, q24h chlorhexidine, , Topical, Daily guaiFENesin, 200 mg, Oral, TID lactated ringers, 500 mL, IntraVENous, Once pantoprazole, 40 mg, Oral, Nightly Or pantoprazole (ProtoNix) 40 mg in sodium chloride (PF) 0.9 % 10 mL injection, 40 mg, IntraVENous, Nightly polyethylene glycol (PEG) 3350, 17 g, Per G Tube, Daily potassium phosphates 10 mmol in sodium chloride 0.9 % 50 mL IVPB, 10 mmol, IntraVENous, Once senna-docusate sodium, 2 tablet, Per G Tube, Daily sodium chloride 0.9%, 5-40 mL, IntraCATHeter, q8h sodium chloride, 3 mL, Nebulization, BID stomahesive in petrolatum, , Topical, TID Continuous Infusions:dexmedeTOMIDine, 0.1-1.5 mcg/kg/hr, Last Rate: 0.4 mcg/kg/hr (12/23/24 0509) Objective: Last Vitals: BP MAP (!) 86/47 (12/23/24 0511) 59 (12/23/24 05) Arterial BP MAP Temp 36.7 C (98 F) (12/23/24 0400) Pulse 81 (12/23/24 05) Resp 20 (12/23/24528) SpO2 99 % (12/23/24528) Weight 51.2 kg (112 lb 14 oz) (12/22/24 06) BMI Body mass index is 19.37 kg/m . I/O: 12/22 699 - 12/23 658 In: 1048 [I.V.:288] Out: 995 [Urine:995] Ventilator: Ventilation Day(s): 1 Resp Rate (Set): 14 Vt (Set, mL): 350 mL IP Set (cm H2O): 8 cm H2O FiO2 (%): 30 % PEEP/CPAP (cm H2O): 8 cm H20 Inspiratory Time (sec): 0.9 sec Oxygen Delivery: Invasive Lines / Tubes / Drains: CVC Triple Lumen 12/13/24 Right Internal jugular (Active) Number of days: 0 Peripheral IV 12/13/24 Anterior;Right Forearm (Active) Number of days: 0 Urethral Catheter (Active) Number of days: 0 ETT 7.5 mm (Active) Number of days: 0 Enterostomy PEG Gastric (Active) Number of days: 0 Central Line Indication: Inadequate peripheral access despite documented ultrasound attempts AND unable to place extended dwell PIV Puentes Indications: Acute urinary retention or urinary obstruction and Hourly I&Os (Critical Care ONLY) Restraints: Restraints Non-Violent Or Non-Self Destructive Dec 13, 2024 12:57 Pm Edt Restraint order already placed. Order is valid for duration of episode. Wounds: Constitutional: General Appearance []WDWN []Obese [x]Cachectic [x]Thin [x]Ill Eyes: Inspection of Pupils/Irises Pupils round and react: [x]Yes []No Sclera: []Icteric [x]Non-Icteric Inspection of Conjunctiva/Lids Conjunctiva: []Injected [x]Non-Injected Lids: [x]Intact []Lesion Present ENT/Mouth: External Inspection of ears/nose [x] Normal [] Scar/Lesion/Mass Inspection of teeth/lips/gums Dentition: [x][place] Teeth []Dentures Lips/Gums: [x]Intact []Lesion Present Mucosa: [x][place] [x]Moist []Dry Neck: External Appearance Overall Appearance: [x]Normal []Lesion/Mass/Crepitus Present Trachea midline: [x]Yes []No Thyroid [x]Normal []Enlarged []Tender []Mass []Absent Respiratory: Respiratory effort []Labored []Non-Labored [x] Mechanically-Ventilated Auscultation - decreased breath sounds []Clear [x]Crackles []Wheezes []Rhonchi Cardiovascular: Auscultation Rate: [x]Regular []Irregular []Tachycardia []Bradycardia Rhythm: [x]Regular []Irregular Murmur: []Present [x]Absent Extremities Peripheral Edema: []Present [x]Absent Varicosities: []Present [x]Absent Gastrointestinal: Abdomen Palpation: [x]Soft []Firm []Tender [x]Non-Tender []Distended [x]Non-distended Mass: []Present [x]Absent Bowel Sounds: [x]Present []Absent Hernia: []Present []Absent Liver/Spleen: []Hepatosplenomegaly []Organomegaly Absent Musculoskeletal: Inspection of Digits and Nails Cyanosis: []Present [x]Absent Clubbing: []Present [x]Absent Ischemia: []Present [x]Absent Infection: []Present [x]Absent Extremities GERMAN Equally: Except ([]RUE []RLE []LUE []LLE) Strength/Tone: Intact and Normal ([]RUE []RLE []LUE []LLE) Skin: Inspection []Normal [x]Rash (small on left thigh) []Lesion []Ulcer Palpation [x]Warm []Cool [x]Dry []Clammy []Nodules []Induration []Skin-tightening Cap-Refill: [] <3 sec [] >3 seconds (delayed) Neurologic: GCS EYE: 3 - Opens to verbal commands GCS MOTOR: 6 - Obeys commands for movement GCS VERBAL: 1 - No response Total GCS: 7 [] Sensation grossly intact Psych: Mental Status Alert: []Yes [x] No Oriented: [x]x0 []X1 []X2 []X3 - off sedation - remained intubated Mood/Affect [x]Normal []Flat []Agitated []Depressed []Anxious []Calm [x]Sedated [x]NAD Select Labs within last 24 hours- BMP: Recent Labs 12/21/24 0637 12/22/2441412/23/24 015 NA 133* 138 139 K 4.1 4.0 4.1 CL 102 106 109* CO2 BUN 14 14 14 CREATININE 0.54* 0.49* 0.50* CALCIUM 7.8* 8.1* 8.4* MG 2.4 2.5 2.6 PHOS 1.5* 2.6 2.1* LFTs: Recent Labs 12/21/24 0612/22/2441412/23/24156 AST 21 31 39* ALT <6 14 20 PROT 4.9* 5.1* 5.4* ALBUMIN 1.9* 1.9* 2.0* BILITOT 0.3 0.2 0.2 ALKPHOS 61 60 65 Glucose: Recent Labs 12/20/24 0615 12/21/24 0637 12/22/2441412/23/24 015 GLUCOSE 108 139* 130* 151* Procal: Recent Labs 12/21/24636 PROCAL 0.12* CBC: Recent Labs 12/21/24 0637 12/22/24 03512/22/2441412/23/2415612/23/24 025 WBC 18.0* -- 10.8* 13.5* -- HGB 8.4* < > 8.3* 8.9* 9.0 HCT 26.2* -- 26.7* 27.7* -- PLT 394 -- 403 413 -- MCV 92.3 -- 93.0 92.0 -- RDW 16.2* -- 16.2* 16.1* -- < > = values in this interval not displayed. ABGs: Recent Labs 12/21/24 0517 12/22/24 03512/23/24 025 PHART 7.510* 7.502* 7.504* WUN6ITY 37.1 37.5 36.5 PO2ART 83.4 96.4 101.5* SPC4ZPV 28.9* 28.7* 28.1* [id number] Ventilator Ventilator Ventilator Lactic Acid: No results for input(s): "LACTATE" in the last 72 hours. INR: Recent Labs 12/21/24 0637 12/22/24 0415 12/23/24 0157 INR 1.1 1.1 1.1 Cardiac Injury Profile: Recent Labs 12/22/24414 CKTOTAL 11* Labs in Last 3 months: Lab Results Component Value Date TSH 0.68 12/13/2024 INR 1.1 12/23/2024 Microbiology- Urine Cx: Lab Results Component Value Date URINECX No growth (<1,000 CFU/mL) 12/13/2024 Blood Cx: Lab Results Component Value Date BLOODCX No growth at 5 days 12/13/2024 Sputum Cx: Lab Results Component Value Date RESPCULT Few respiratory reba present. 12/14/2024 Gram Stain: Lab Results Component Value Date LABGRAM 12/16/2024 Many Polymorphonuclear leukocytes per low power field LABGRAM No organisms seen 12/16/2024 PNA PCR: Lab Results Component Value Date HUMANMETAPNE Not Detected 12/14/2024 COVID19: No results found for: COVID19 Legionella Ag: Lab Results Component Value Date LEGIONELLAPN Not Detected 12/14/2024 Strep Ag: No results for input(s): "STREPPNEUMO" in the last 72 hours. Imaging- abnormal CT Chest Abd/Pelvis Assessment and Plan: Principal Problem: Acute hypoxemic respiratory failure (HCC) Assessment: Acute Respiratory Failure with Hypoxia 2/2 to influenza A and parainfluenza PNA Metabolic encephalopathy Chronic Osteomyelitis/discitis L5-S1 s/p biopsy, path neg, gram stain neg. 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 Plan: Continue sedation with Precedex. Aiming for extubation today. Mentation improving. Unrevealing infectious workup. Blood culture negative for 48 hours. ID is following. IV abx de-escalate to ceftriaxone for 8 week total course with end date 02/10. PICC line will be needed. S/p bone biopsy 12/16 - culture negative 48 hours, no organisms seen on gram stain. No surgical intervention from Ortho for now though pt will benefit for spinal stability support. Continue eliquis for DVT. Once extubated can temporarily use heparin drip if unable to tolerate p.o. meds. Continue tube feeds until extubation. Will assess swallowing ability with MBSS to evaluate for chronic aspiration given bronchiectasis on CT Will continue to hold off diuresis today as patient appears to be hypovolemic. Monitor I's and O's unremarkable formal TTE for vegetation evaluation. Some diastolic dysfunction, expected with age, pulmonary artery systolic pressure not found in echo to calculate the H2PEF score. Daily labs and replete lites as needed GI Prophylaxis: Pantoprazole IV DVT Prophylaxis: Full anticoagulation Disposition: Remain in ICU Status Cosigned by Valentina Kerr MD at 12/23/2024 7:08 PM EDT Associated attestation - Valentina Kerr MD - 12/23/2024 7:08 PM EDT I have personally performed a [id number] diagnostic evaluation on this patient on date of service 12/23/24. History, labs, imaging studies, and electronic medical record have been reviewed by me. This note documented by the [x]wash house worker []MARISOL reflects my history, exam, and medical decision making. I have reviewed and agree with the care plan. Changes were made in the orders as necessary. ROS documentation was reviewed and negative unless otherwise stated in HPI. Assessment: Acute hypoxic respiratory failure influenza A/parainfluenza PNA Discitis/osteomyelitis L5-S1 (suspect 2/2 prior episode bacteremia) Hx PE/LLE DVT on DOAC prior to admission Urinary retention w/chronic puentes s/p hx bladder cancer Plan: Mental status significantly improved after transition in sedation regimen: if passes SBT plan for extubation today Diurese today Would recommend CEILING INSULATION BLOWER eval +/- formal MBSS to evaluate for chronic aspiration prior to resuming PO diet once extubated F/u w/ortho for timing for eventual spinal stablization surgery. No acute surgical indication from infectious standpoint Abx per ID DOAC for hx PE/DVT: if unable to resume PO meds post-extubation may need to consider using heparin gtt temporarily Critical care time spent reviewing labs/films, examining patient, collaborating with other physicians but excluding procedures for life threatening organ failure is 37 minutes. [facility] Respiratory Care Department Progress Note Spontaneous Awakening Trial Safety Screen Spontaneous Awakening Trial (SAT - RN) : Proceed with SAT - No exclusion criteria met (12/16/24944) Spontaneous Awakening Trial (SAT) Outcome: SAT pass (12/16/24944) Wean Screen SpO2>/=88%: Yes (12/22/24524) FiO2</=50%: Yes (12/22/24524) PEEP </=8cmH2O: Yes (12/22/24524) HR <140 BPM: Yes (12/22/24524) RR </= 35 breaths/min: Yes (12/22/24524) MAP >/= 65mmHg: Yes (12/22/24524) Arterial pH >7.30: Yes (12/22/24524) Safety Screen Spontaneous Breathing Trial (SBT - RT) : Proceed with SBT - No exclusion criteria met (12/22/24524) Spontaneous Breathing Trial Weaning Start Time: 1550 (12/22/241627) Weaning Tidal Volume: 433 mL (12/22/241627) Weaning Respiratory Rate: 31 (12/22/241627) Spontaneous Minute Volume (MV): 9.91 (12/22/241627) Total RSBI: 71.5 (12/22/241627) Weaning Tolerance: Good (12/22/241627) Weaning Stop Time: 1628 (12/22/241627) Weaning Duration (min): 38 (12/22/241627) Spontaneous Breathing Trial (SBT - RT) Outcome: SBT Passed (12/22/241627) Vent Settings Vent Mode: Assist control (12/22/241627) Mandatory Type: Pressure Control (12/22/241627) Resp Rate (Set): 14 (12/22/241627) Vt (Set, mL): 350 mL (12/22/24 0855) IP Set (cm H2O): 8 cm H2O (12/22/241627) FiO2 (%): 30 % (12/22/241627) PEEP/CPAP (cm H2O): 8 cm H20 (12/22/241627) Inspiratory Time (sec): 0.9 sec (12/22/241627) Vitals MAP (mmHg): 91 (12/22/24 1500) Heart Rate: 108 (12/22/241627) Resp: 24 (12/22/241627) SpO2: 98 % (12/22/241627) Suctioning/Secretions Secretion Amount: Moderate (12/22/241627) Secretion Color: Martinez (12/22/241627) Secretion Consistency: Thick (12/22/241627) ABG results Recent Labs 12/20/24 0426 12/21/24 0517 12/22/24 0354 PHART 7.441 7.510* 7.502* DBV2HEH 45.8* 37.1 37.5 PO2ART 106.8* 83.4 96.4 SRS2BGE 30.5* 28.9* 28.7* [id number] Ventilator Ventilator Ventilator Does this patient meet criteria for termination of mechanical ventilation No - Ordered PSV Trials Name of physician notified via secure chat or in person : NA (NA if patient did not meet criteria) Comments: Thank you for involving Respiratory in the care of this patient, Nutrition Assessment Type and Reason for Visit: Reassess Nutrition Recommendations/Plan: Pt remains intubated receiving Propofol. Recommend continue EN via PEG of Vital 1.5 @ 40 mL/hr to provide 1440 kcals + 159 kcals propofol, 65 gm protein and 733 mL free H2O (29 kcal/kg & 1.2 gm protein/kg IBW <55kg>). Remains appropriate without propofol calories as well (26 kcal/kg). Tolerating TF without issues per notes and RN today. Will continue monitoring. Current weights inaccurate d/t envella bed (since 12/17). UBW [employer] was 135-140#. Monitor weight, labs, I/Os, skin integrity and overall nutrition status. RD to follow up weekly. 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 This is pt's 3rd recent admission) Findings of the 6 clinical characteristics of malnutrition: Energy Intake: Mild decrease in energy intake (Comment) (Noted recent hx of aspiration and esophagitis resulting in PEG tube placement and PO diet of pureed and nectar liquids at [facility]. Pt has been tolerating TF at goal rate + daily propofol calories since 12/14, providing average of 29.5 kcal/kg) Weight Loss: Unable to assess (Very limited weight hx MAGAZINE KEEPER but UBW appeared to be between 135-140#. Weights this admit were >144# until placed on envella bed 12/17 and subsequent weights now 110-115# which are inaccurate) Body Fat Loss: No significant body fat loss Muscle Mass Loss: Unable to assess Fluid Accumulation: Moderate to Severe Generalized, Extremities Education Professional Strength: Not Performed Nutrition Assessment: 79yo F with PMHx Cerebral Palsy, PE/DVT (on Eliquis), Aspiration, Esophagitis (s/p PEG ?recently), Hx Bladder Cancer with Chronic Puentes for urinary retention and Recent Hospitalizations for parainfluenza, hyponatremia, influenza A and Strep bacteremia who presented to [facility] ED from [facility] (there for 72 hours after the last hospitalization) with acute respiratory failure with pulmonary edema. Initial O2 sats noted to be the 60s, patient intubated and noted to be hypotensive thus was fluid resuscitated. She was noted to be hypertensive and had urinary retention. WBC 25 and CXR with infiltrates. Tested +Influenza A, started on Tamiflu. Elevated ESR/CRP. CT abd/pelvis with concerns for osteomyelitis and discitis at L5-S1 as well as L common femoral vein thrombus. CTA chest demonstrated 1cm percardial effusion. Transferred to [facility] ICU for further management. This is pt's 3rd recent admission (was previously living at home), Palliative Care consulted and code status [id number]. MRI does shows signs of L5-S1 discitis/osteomyelitis without other spine impact-- Ortho is following and recommending CT-guided biopsy and conservative treatment with extended IV abx for now and surgery later (several weeks) for spinal stability purpose. S/p CT biopsy 12/16. ID consulted and changed abx to IV Meropenem, will need 8 weeks abx. Wound Care following for Sacrum: Unstageable Pressure Injury since 12/17 and ordered envella bed. MRI Cervical and Thoracic spine clear from infection. Pt finished 5 days Tamiflu on 12/18. Started levophed 12/[address] biopsy results came back sterile, ID de-escalated abx to IV Ceftriaxone for a planned 8 weeks--> stop date 02/10, PICC line will be needed. Ortho signed off. Continues undergoing spot diuresis. She remains intubated d/t multiple failed attempts at SBT. Fentanyl dc'd, weaning propofol. Remains encephalopathic off sedation. Continues receiving EN via PEG of Vital 1.5 @ 40 mL/hr since 12/14. Has been receiving a range of kcals from propofol of 106-265 kcals per day since 12/13 (range 4.02 mL/hr-10.05 mL/hr). Weights inaccurate since 12/17 d/t switching to envella bed. Weights this admission: 12/13 147# bed, 12/14 150#, 12/15 144#, 12/18 115# bed, 12/19 114# bed, 12/20 110# bed, 12/21 116#, 12/22 112#. Pt very limited hx to review per EMR. Only recent available weight hx is 12/05/23 137#, 11/21/24 134.9#, 12/12/[address] RD visited pt this afternoon and observed TF at goal rate. Reviewed paper chart but unable to determine when PEG was placed. She was ordered a PO diet of pureed with nectar thick liquids at [facility] with [facility]WF orders (Q 4 hours, flush amount cut off page), through PEG but no actual TF order. Estimated Daily Nutrient Needs: Energy Requirements Based On: Kcal/kg Weight Used for Energy Requirements: Anderson Weight for Energy Calculation (kg): 55 kg Total Energy Requirements (kcals/day): 25-30 kcals/kg = 8937-0672 kcals/day Weight Used for Protein Requirements: Anderson Weight in Kg Used for Protein Requirements: 55 kg Estimated Total Protein (g/day): 1.1-1.3g protein/kg IBW = 61-72g protein/day Estimated Daily Total Fluid (ml/day): 1375 mls Nutrition Related Findings: Labs: BG 139/130, no A1c, TGs 159, Meds: Propofol (@ 6.03 mL/hr), Precedex Orientation Level: Unable to Assess, Cognition: Unable to assess, Best Verbal Response: None, Patient Behaviors/Mood: Calm, Not interactive Teeth: Missing teeth Swallow: Other (Comment) (ETT) Shmuel Scale Score: 13. Wound Type: Pressure Injury, Unstageable (Wound Care following for Sacrum: Unstageable Pressure Injury) Net IO Since Admission: 71.6 mL [12/22/24 1325] Gastrointestinal (WDL): Within Defined Limits Bowel Sounds (All Quadrants): Active Abdomen Inspection: Soft, Nondistended Last BM Date: 12/22/24, Stool Appearance: Loose, Stool Color: Brown Edema: Generalized Edema: Deep pitting, indentation remains for a short time, RUE Edema: None, LUE Edema: None, RLE Edema: Moderate pitting, indentation subsides rapidly, LLE Edema: Moderate pitting, indentation subsides rapidly Oxygen Therapy: Supplemental oxygen, O2 Delivery Method: Ventilator, Current Nutrition Therapies: Diet, tube feeding no tray PEG; Vital 1.5 Davide; Continuous; Yes; 10; Q 6 Hours; 10; 40 Current Oral Intake Average Meal Intake: NPO Average Supplements Intake: NPO Additional Calorie Sources Additional Calorie Sources: Propofol between range of 4.02 mL/hr - 10.05 mL/hr since 12/13 which provides between 106-265 kcals daily Enteral Nutrition Feeding Route: PEG EN Formula: Vital 1.5 Davide EN Schedule: Continuous EN Feeding Regimen: Vital 1.5 @ 40 mL/hr Additives/Modulars: None Water Flushes: 50mL Q 4 hours since 12/14 per order Current EN & Flush Order Provides: Vital 1.5 @ 40 mL/hr + range 106-265 kcals daily from propofol provides average of 1440 kcals + 186 kcals prop, 65 gm protein and 733 mL free H2O (29.5 kcal/kg & 1.2 gm protein/kg IBW <55kg>) Goal EN & Flush Order Provides: Same (by itself Vital 1.5 @ 40 mls/hour provides 1440 kcals, 65g protein, 733 mls free H20 = 26 kcalskg + 1.1g protein/kg IBW (55 kgs). Anthropometric Measures: Height: 162.6 cm (5' 4.02") Current Body Weight: 51.2 kg (112 lb 14 oz) (12/22 inaccurate d/t envella bed) Weight Source: Bed Scale Admission Body Weight: 67 kg (147 lb 11.3 oz) (12/13 bed) Usual Body Weight: (Only recent available weight hx is 12/05/23 137#, 11/21/24 134.9#, 12/12/24 139.2#.) Anderson Body Weight (lbs) (Calculated): 120 lbs Anderson Body Weight (Kg) (Calculated): 55 kg % Anderson Body Weight (Calculated): 94.1 % BMI (kg/m2) (Calculated): 19.4 BMI Categories: Underweight (BMI less than 22) age over 65 Nutrition Interventions: Nutrition Education/Counseling: No recommendation at this time Coordination of Nutrition Care: Continue to monitor while inpatient Goals: Previous Goal Met: (EN on hold) Goals: Tolerate nutrition support at goal rate, by next RD assessment Nutrition Monitoring and Evaluation: Behavioral-Environmental Outcomes: None Identified Food/Nutrient Intake Outcomes: Enteral Nutrition Intake/Tolerance Physical Signs/Symptoms Outcomes: Biochemical Data, Nutrition Focused Physical Findings, Skin, Weight, GI Status, Fluid Status or Edema, Hemodynamic Status Discharge Planning: Too soon to determine Manan Gross RD Contact: [phone] Images from the original note were not included. [facility] - Infectious Diseases Attending Progress Note Subjective: Following for influenza A/ VDRF and L5-S1 VO/diskitis with recent hx of Strep alactolyticus BSI (1/31/25- [facility] treated with PO omnicef by ID) with back pain at that time. Remains in ICU on vent. FiO2 30%. No fevers. Tolerating the switch in abx. WBC has normalized. Objective: Vitals: Patient Vitals for the past 24 hrs: BP Temp Temp src Pulse Resp SpO2 Height Weight 12/22/24 1136 -- -- -- 98 22 100 % -- -- 12/22/24 1116 -- -- -- -- -- -- 1.626 m (5' 4.02") -- 12/22/24 0855 -- -- -- 99 17 99 % -- -- 12/22/24 0824 -- -- -- 90 23 99 % -- -- 12/22/24 0820 -- -- -- 92 23 98 % -- -- 12/22/24 0800 105/57 36.6 C (97.9 F) Temporal 91 17 100 % -- -- 12/22/24 0700 129/74 -- -- 97 17 99 % -- -- 12/22/24 0600 115/64 -- -- 95 14 100 % -- 51.2 kg (112 lb 14 oz) 12/22/24 0500 103/55 -- -- 93 15 100 % -- -- 12/22/24 0400 124/64 36.4 C (97.6 F) Temporal 93 17 100 % -- -- 12/22/24 0300 101/65 -- -- 97 19 100 % -- -- 12/22/24 0253 -- -- -- 95 17 100 % -- -- 12/22/24 0200 123/67 -- -- 99 15 98 % -- -- 12/22/24 0100 132/69 -- -- 103 14 97 % -- -- 12/22/24 0000 117/65 36.1 C (97 F) Temporal 102 17 100 % -- -- 12/21/24 2328 -- -- -- 102 16 97 % -- -- 12/21/24 2300 120/52 -- -- 106 21 99 % -- -- 12/21/24 2200 126/68 -- -- 105 18 100 % -- -- 12/21/24 2100 117/81 -- -- 105 (!) 28 100 % -- -- 12/21/242021 -- -- -- 98 14 100 % -- -- 12/21/24 2000 111/59 36.1 C (96.9 F) Temporal 97 15 100 % -- -- 12/21/24 1900 114/61 -- -- 101 16 96 % -- -- 12/21/24 1800 105/65 -- -- 101 18 97 % -- -- 12/21/24 1700 117/65 -- -- 102 15 96 % -- -- 12/21/24 1604 -- -- -- 108 22 95 % -- -- 12/21/24 1600 109/60 36.5 C (97.7 F) Temporal 108 (!) 28 96 % -- -- 12/21/24 1529 -- -- -- 109 22 96 % -- -- 12/21/24 1500 133/69 -- -- 111 21 96 % -- -- 12/21/24 1400 129/62 -- -- 110 (!) 30 96 % -- -- 12/21/24 1300 120/65 -- -- 108 20 96 % -- -- Physical Exam Vitals and nursing note reviewed. Constitutional: Appearance: She is ill-appearing. Comments: On vent HENT: Head: Normocephalic. Right Ear: External ear normal. Left Ear: External ear normal. Nose: Nose normal. Mouth/Throat: Comments: + ETT Cardiovascular: Rate and Rhythm: Regular rhythm. Tachycardia present. Pulmonary: Comments: Effort per vent; coarse BS Abdominal: General: There is no distension. Palpations: Abdomen is soft. Tenderness: There is no abdominal tenderness. Musculoskeletal: Comments: + arthritic joint changes; no synovitis or crepitance of any limb Skin: General: Skin is warm and dry. Coloration: Skin is not jaundiced. Findings: No rash. Neurological: Comments: sedated Labs: Lab Results Component Value Date/Time NA 138 12/22/2024 0415 K 4.0 12/22/2024 0415 CL 106 12/22/2024 0415 CO2 26 12/22/2024 0415 BUN 14 12/22/2024 0415 CREATININE 0.49 (L) 12/22/2024 0415 GLUCOSE 130 (H) 12/22/2024 0415 CALCIUM 8.1 (L) 12/22/2024 0415 PROT 5.1 (L) 12/22/2024 0415 BILITOT 0.2 12/22/2024 0415 ALKPHOS 60 12/22/2024 0415 AST 31 12/22/2024 0415 ALT 14 12/22/2024 0415 PROCAL 0.12 (H) 12/21/2024 0637 PROCAL 4.24 (H) 12/13/2024 1343 Lab Results Component Value Date/Time WBC 10.8 (H) 12/22/2024 0415 HGB 8.3 (L) 12/22/2024 0415 HGB 8.7 12/22/2024 0354 HCT 26.7 (L) 12/22/2024 0415 PLT 403 12/22/2024 0415 LYMPHOPCT 17.2 12/22/2024 0415 LYMPHOPCT 20 12/19/2024 0654 MONOPCT 9.5 12/22/2024 0415 MONOPCT 8 12/19/2024 0654 BASOPCT 0.5 12/22/2024 0415 BASOPCT 2 12/17/2024 0335 NEUTROABS 7.7 (H) 12/22/2024 0415 Micro: 12/16- bone biopsy cx- NGTD 12/14- pneumonia PCR panel- + influenza A 12/14- resp cx- resp reba 12/14- CRAB PCR- negative 12/14- C auris PCR- negative 12/13- RVP- + influenza A 12/13- blood cx- negative 12/13- MRSA nasal PCR- negative 12/13- Legionella and Strep urine Ag- negative 12/13- urine cx- negative [facility]: 10/30- blood cx- Strep alactolyticus hogan-S Lines: RIJ TLC (12/13) Puentes PEG Radiography/Echo/Other: 12/21- CXR- Pulmonary vascular congestion and/or infiltrates, similar to prior day. 12/17- MRI C-spine- No evidence of osteomyelitis discitis. No peripherally enhancing fluid collection to suggest an epidural or soft tissue abscess. Multilevel spondylosis most pronounced at C4-C5 where there is severe canal stenosis without cord compression. No underlying cord signal change. There is also moderate to severe canal stenosis at C3-C4 with cord flattening without underlying signal change. Multilevel variable foraminal stenosis as outlined, up to severe. 12/17- MRI T-spine- No evidence of osteomyelitis discitis. No peripherally enhancing fluid collection to suggest an epidural or soft tissue abscess. Findings suggesting recent (acute to subacute) Schmorl's nodes at the inferior endplates of T10 and T11. No significant canal or foraminal stenosis. Bilateral pleural effusions and associated opacities. 12/15- CT C-spine- 1. Moderate degenerative changes in the mid cervical spine. 2. Canal stenosis is most pronounced at C3-4 and C4-5. There is a mild impression on the ventral spinal cord. 3. No direct CT evidence of discitis/osteomyelitis on this unenhanced scan. 4. Mild inflammatory changes in the left mastoid air cells. This is nonspecific but may indicate mastoiditis. 5. There is a significant amount of cerumen/debris in the left external auditory canal. Please correlate with direct visualization. 12/15- MRI L-spine- Marrow signal changes of L5-S1 vertebral bodies with fluid signal of the disc are consistent with osteomyelitis discitis. No peripherally enhancing fluid collection to suggest an epidural or paraspinal abscess. Small Schmorl's node at the inferior endplate of T11 with mild edema and enhancement suggest acute to subacute Schmorl's node formation. Multilevel spondylosis as outlined. No high-grade canal stenosis. Multilevel foraminal stenoses, most pronounced at L5-S1. Anatomic Lumbar Variant: None. L4-5 is considered the level of the iliac crest and assume there are 5 lumbar-type vertebrae. 12/14- TTE- Left Ventricle: Left ventricle is smaller than normal. Normal wall thickness. Normal left ventricular systolic function. EF by 2D Simpsons Biplane is 67%. Normal wall motion. Grade I diastolic dysfunction with normal LAP. Right Ventricle: Right ventricle size is normal. Reduced systolic function. TAPSE is abnormal. Pericardium: Small (<1 cm) pericardial effusion present. Pericardial effusion is echolucent. Features indicating an absence of cardiac tamponade are present. No significant valvular abnormalities. 12/13- CT c/a/p- 1. Multifocal infiltrates concerning for multifocal pneumonia. 2. Small to moderate left pleural effusion. 3. Moderate pericardial effusion. 4. Moderate stool throughout the colon and a large amount of stool in the rectum. Consider constipation and/or fecal impaction. Perirectal fat stranding is present suggesting proctitis including stercoral proctitis. 5. Chronic osseous changes. Erosive changes at L5-S1. 12/13- CT brain- 1. No evidence of an intracranial mass, edema or parenchymal flexion. If there is persistent concern for an abnormality not seen by CT, consider MRI and/or CSF analysis, if appropriate. 2. Cerebral volume loss. White matter changes likely due to microangiopathic disease. 3. Nonspecific left mastoid effusion. An infectious process cannot be excluded. Antimicrobials, Start/End Dates: Ceftriaxone Impression: Influenza A with acute hypoxic respiratory failure/ VDRF L5-S1 culture-negative VO/ diskitis but with preceding Strep alactolyticus BSI (10/30/24) at [facility] treated with PO-- likely hematogenous seeding of spine - had colonoscopy at [facility] at time of bacteremia with mucosal irritation - s/p CT-guided biopsy (12/16) on abx Leukocytosis Pericardial effusion Hx bladder cancer with chronic puentes for urinary retention Hx VTE Augmentin allergy--> tolerates carbapenems Erythromycin allergy Plan: Continue ceftriaxone for a planned 8 weeks--> stop date 02/10. Targeting previous pathogen with bacteremia from [facility] in 09/2024 which likely occultly seeded her spine. Will need a PICC line. WBC has normalized. Ortho spine notes reviewed- may need stabilizing procedure in the near future given boy destruction. Influenza has been treated and out of isolation. Will follow. Based on diagnoses and management, combination of acute and chronic problems, exacerbations and/or acuity, this visit should be considered to be of moderate complexity. Margot Carver MD ICU Progress Note Name: Claritza Burton : 1945(79 y.o.) Date: 12/22/24 Team: MICU Attending: Dr. Kerr Subjective: Hospital Summary: 79 yo F PMH cerebral palsy, PE/DVT on Eliquis, aspiration, esophagitis s/p PEG, recent hospitalizations for parainfluenza, hyponatremia, influenza A and Strep bacteremia who presented to [facility] ED from [facility], (there for 72 hours after the last hospitalization) with acute respiratory failure with pulmonary edema. Initial O2 sats noted to be the 60s, patient intubated and noted to be hypotensive thus was fluid resuscitated. She was noted to be hypertensive and had urinary retention. WBC [address] abd/pelvis with concerns for osteomyelitis and discitis at L5-S1 as well as L common femoral vein thrombus. CTA chest demonstrated 1cm percardial effusion. Transferred to [facility] ICU for further management. Infectious workup while in ICU has been unrevealing. MRI does shows signs of L5-S1 discitis/osteomyelitis without other spine impact. Ortho is following and recommending extended IV abx for now and surgery later for spinal stability purpose. Remained intubated and sedated. Interval Events: No acute overnight events. Patient remained on propofol for sedation and intubated with multiple SBT failures. She is barely awaken to painful stimuli, does not track or follow commands at all. Otherwise HDS. Good urine output. Scheduled Meds:apixaban, 5 mg, Oral, BID bisacodyl, 10 mg, Rectal, BID cefTRIAXone, 2,000 mg, IntraVENous, q24h chlorhexidine, , Topical, Daily guaiFENesin, 200 mg, Oral, TID mupirocin, 1 Application, Nasal, BID pantoprazole, 40 mg, Oral, Nightly Or pantoprazole (ProtoNix) 40 mg in sodium chloride (PF) 0.9 % 10 mL injection, 40 mg, IntraVENous, Nightly polyethylene glycol (PEG) 3350, 17 g, Per G Tube, Daily senna-docusate sodium, 2 tablet, Per G Tube, Daily sodium chloride 0.9%, 5-40 mL, IntraCATHeter, q8h sodium chloride, 3 mL, Nebulization, BID stomahesive in petrolatum, , Topical, TID Continuous Infusions:dexmedeTOMIDine, 0.1-1.5 mcg/kg/hr propofol, 5-50 mcg/kg/min, Last Rate: 15 mcg/kg/min (12/22/24 0726) Objective: Last Vitals: BP MAP 105/57 (12/22/24 0800) 71 (12/22/24 0800) Arterial BP MAP Temp 36.6 C (97.9 F) (12/22/24 0800) Pulse 99 (12/22/24 0855) Resp 17 (12/22/24 08) SpO2 99 % (12/22/24 0855) Weight 112 lb 14 oz (51.2 kg) (12/22/24 06) BMI Body mass index is 19.37 kg/m . I/O: 12/21 07 - 12/22 658 In: 2743 [I.V.:1370] Out: 4210 [Urine:4210] Ventilator: Ventilation Day(s): 1 Resp Rate (Set): 14 Vt (Set, mL): 350 mL IP Set (cm H2O): 8 cm H2O FiO2 (%): 30 % PEEP/CPAP (cm H2O): 8 cm H20 Inspiratory Time (sec): 0.9 sec Oxygen Delivery: Invasive Lines / Tubes / Drains: CVC Triple Lumen 12/13/24 Right Internal jugular (Active) Number of days: 0 Peripheral IV 12/13/24 Anterior;Right Forearm (Active) Number of days: 0 Urethral Catheter (Active) Number of days: 0 ETT 7.5 mm (Active) Number of days: 0 Enterostomy PEG Gastric (Active) Number of days: 0 Central Line Indication: Inadequate peripheral access despite documented ultrasound attempts AND unable to place extended dwell PIV Puentes Indications: Acute urinary retention or urinary obstruction and Hourly I&Os (Critical Care ONLY) Restraints: Restraints Non-Violent Or Non-Self Destructive Dec 13, 2024 12:57 Pm Edt Restraint order already placed. Order is valid for duration of episode. Wounds: Constitutional: General Appearance []WDWN []Obese [x]Cachectic [x]Thin [x]Ill Eyes: Inspection of Pupils/Irises Pupils round and react: [x]Yes []No Sclera: []Icteric [x]Non-Icteric Inspection of Conjunctiva/Lids Conjunctiva: []Injected [x]Non-Injected Lids: [x]Intact []Lesion Present ENT/Mouth: External Inspection of ears/nose [x] Normal [] Scar/Lesion/Mass Inspection of teeth/lips/gums Dentition: [x][place] Teeth []Dentures Lips/Gums: [x]Intact []Lesion Present Mucosa: [x][place] [x]Moist []Dry Neck: External Appearance Overall Appearance: [x]Normal []Lesion/Mass/Crepitus Present Trachea midline: [x]Yes []No Thyroid [x]Normal []Enlarged []Tender []Mass []Absent Respiratory: Respiratory effort []Labored []Non-Labored [x] Mechanically-Ventilated Auscultation - decreased breath sounds []Clear [x]Crackles []Wheezes []Rhonchi Cardiovascular: Auscultation Rate: [x]Regular []Irregular []Tachycardia []Bradycardia Rhythm: [x]Regular []Irregular Murmur: []Present [x]Absent Extremities Peripheral Edema: []Present [x]Absent Varicosities: []Present [x]Absent Gastrointestinal: Abdomen Palpation: [x]Soft []Firm []Tender [x]Non-Tender []Distended [x]Non-distended Mass: []Present [x]Absent Bowel Sounds: [x]Present []Absent Hernia: []Present []Absent Liver/Spleen: []Hepatosplenomegaly []Organomegaly Absent Musculoskeletal: Inspection of Digits and Nails Cyanosis: []Present [x]Absent Clubbing: []Present [x]Absent Ischemia: []Present [x]Absent Infection: []Present [x]Absent Extremities GERMAN Equally: Except ([]RUE []RLE []LUE []LLE) Strength/Tone: Intact and Normal ([]RUE []RLE []LUE []LLE) Skin: Inspection []Normal [x]Rash (small on left thigh) []Lesion []Ulcer Palpation [x]Warm []Cool [x]Dry []Clammy []Nodules []Induration []Skin-tightening Cap-Refill: [] <3 sec [] >3 seconds (delayed) Neurologic: GCS EYE: 3 - Opens to verbal commands GCS MOTOR: 6 - Obeys commands for movement GCS VERBAL: 1 - No response Total GCS: 7 [] Sensation grossly intact Psych: Mental Status Alert: []Yes [x] No Oriented: [x]x0 []X1 []X2 []X3 - off sedation - remained intubated Mood/Affect [x]Normal []Flat []Agitated []Depressed []Anxious []Calm [x]Sedated [x]NAD [facility] Labs within last 24 hours- BMP: Recent Labs 12/20/24 0615 12/21/24 0637 12/22/24 0415 NA 134* 133* 138 K 4.2 4.1 4.0 CL 103 102 106 CO2 29 28 26 BUN 10 14 14 CREATININE 0.47* 0.54* 0.49* CALCIUM 7.9* 7.8* 8.1* MG 1.9 2.4 2.5 PHOS 1.9* 1.5* 2.6 LFTs: Recent Labs 12/20/24 0615 12/21/24 0637 12/22/24 0415 AST 19 21 31 ALT <6 <6 14 PROT 4.8* 4.9* 5.1* ALBUMIN 2.0* 1.9* 1.9* BILITOT 0.3 0.3 0.2 ALKPHOS 58 61 60 Glucose: Recent Labs 12/20/24 0615 12/21/24 0637 12/22/24 0415 GLUCOSE 108 139* 130* Procal: Recent Labs 12/21/2437 PROCAL 0.12* CBC: Recent Labs 12/20/24 0615 12/21/24 0517 12/21/24 0637 12/22/24 0354 12/22/24 0415 WBC 10.3 -- 18.0* -- 10.8* HGB 8.2* < > 8.4* 8.7 8.3* HCT 26.0* -- 26.2* -- 26.7* PLT 372 -- 394 -- 403 MCV 91.5 -- 92.3 -- 93.0 RDW 16.0* -- 16.2* -- 16.2* < > = values in this interval not displayed. ABGs: Recent Labs 12/20/24 0426 12/21/24 0517 12/22/24 035 PHART 7.441 7.510* 7.502* [id number] 45.8* 37.1 37.5 PO2ART 106.8* 83.4 96.4 [id number] 30.5* 28.9* 28.7* [id number] Ventilator Ventilator Ventilator Lactic Acid: No results for input(s): "LACTATE" in the last 72 hours. INR: Recent Labs 12/20/24 0615 12/21/24 0637 12/22/245 INR 1.1 1.1 1.1 Cardiac Injury Profile: Recent Labs 12/22/24414 CKTOTAL 11* Labs in Last 3 months: Lab Results Component Value Date TSH 0.68 12/13/2024 INR 1.1 12/22/2024 Microbiology- Urine Cx: Lab Results Component Value Date URINECX No growth (<1,000 CFU/mL) 12/13/2024 Blood Cx: Lab Results Component Value Date BLOODCX No growth at 5 days 12/13/2024 Sputum Cx: Lab Results Component Value Date RESPCULT Few respiratory reba present. 12/14/2024 Gram Stain: Lab Results Component Value Date LABGRAM 12/16/2024 Many Polymorphonuclear leukocytes per low power field LABGRAM No organisms seen 12/16/2024 PNA PCR: Lab Results Component Value Date HUMANMETAPNE Not Detected 12/14/2024 COVID19: No results found for: COVID19 Legionella Ag: Lab Results Component Value Date LEGIONELLAPN Not Detected 12/14/2024 Strep Ag: No results for input(s): "STREPPNEUMO" in the last 72 hours. Imaging- abnormal CT Chest Abd/Pelvis Assessment and Plan: Principal Problem: Acute hypoxemic respiratory failure (HCC) Assessment: Acute Respiratory Failure with Hypoxia 2/2 to influenza A and parainfluenza PNA Metabolic encephalopathy Chronic Osteomyelitis/discitis L5-S1 s/p biopsy, path neg, gram stain neg. 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 Plan: Continue wean down propofol. Use precedex if need for sedation. then retry daily SBT/SAT. Unclear why patient remained encephalopathic despite being off sedation. Will continue to wean down sedation. Can consider CT head if persistent > 48hrs. Unrevealing infectious workup. Blood culture negative for 48 hours. ID is following. IV abx de-escalate to ceftriaxone for 8 week total course with end date 02/10. PICC line will be needed. S/p bone biopsy 12/16 - culture negative 48 hours, no organisms seen on gram stain No acute surgical intervention at this time for Ortho though pt will benefit for spinal stability support. Continue eliquis for DVT Continue tube feeds Diuresed well yesterday 4.2L UOP with net negative 1.5L on the day. Renal function remained stable. Holding off diurese today. Will continue to spot to optimize for extubation. unremarkable formal TTE for vegetation evaluation. Some diastolic dysfunction, expected with age, pulmonary artery systolic pressure not found in echo to calculate the H2PEF score. Daily labs GI Prophylaxis: Pantoprazole IV DVT Prophylaxis: Full anticoagulation Disposition: Remain in ICU Status Cosigned by Valentina Kerr MD at 12/22/2024 4:54 PM EDT Associated attestation - Valentina Kerr MD - 12/22/2024 4:54 PM EDT I have personally performed a [id number] diagnostic evaluation on this patient on date of service 12/22/24. History, labs, imaging studies, and electronic medical record have been reviewed by me. This note documented by the [x]wash house worker []MARISOL reflects my history, exam, and medical decision making. I have reviewed and agree with the care plan. Changes were made in the orders as necessary. ROS documentation was reviewed and negative unless otherwise stated in HPI. Assessment: Acute hypoxic respiratory failure influenza A/parainfluenza PNA Discitis/osteomyelitis L5-S1 (suspect 2/2 prior episode bacteremia) Hx PE/LLE DVT on DOAC prior to admission Urinary retention w/chronic puentes s/p hx bladder cancer Plan: Slowly starting to wake up with more purposeful movements this AM after sedation weaning/changes. Will try SBT today - if passes, can plan to extubate once mental status allows. Critical care time spent reviewing labs/films, examining patient, collaborating with other physicians but excluding procedures for life threatening organ failure is 33 minutes. Images from the original note were not included. [facility] Wound Care progress Note Claritza Burton AGE: 79 y.o. GENDER: female : 1945 Subjective: HISTORY of PRESENT ILLNESS HPI Claritza Burton is a 79 y.o. female who presents for a wound care follow up. HPI: 79 yo F PMH cerebral palsy, PE/DVT on Eliquis, aspiration, esophagitis s/p PEG, recent hospitalizations for parainfluenza, hyponatremia, influenza A and Strep bacteremia who presented to [facility] ED with acute respiratory failure with concerns for pulmonary edema. Wound Care consulted for pressure injury Patient resting in bed, intubated, sedated and in soft wrist restraints. Treatment at bedside. PAST MEDICAL HISTORY Past Medical History: Diagnosis Date Anxiety Cancer (CMS/HCC) (HCC) Cerebral palsy ([facility]) 1944 Frequent urination Headache Hypertension Palpitations PAST SURGICAL HISTORY Past Surgical History: Procedure Laterality Date BLADDER SURGERY 2009 EYE SURGERY cataract HIP FRACTURE SURGERY Left 2000 HYSTERECTOMY ORTHOPEDIC SURGERY TONSILLECTOMY (HISTORICAL) FAMILY HISTORY Family History Problem Relation Name Age of Onset Cancer Mother Diabetes Father SOCIAL HISTORY Social History Tobacco Use Smoking status: Never Smokeless tobacco: Never Substance Use Topics Alcohol use: No Drug use: No ALLERGIES Allergies Allergen Reactions Amantadine Palpitations Other Reaction(s): Racing heart Amoxicillin-Pot Clavulanate Palpitations Other Reaction(s): Racing heart Amoxicillin Unknown Erythromycin Palpitations Other Reaction(s): Racing heart Erythromycin Base Unknown Lorazepam Anxiety Restlessness MEDICATIONS No current facility-administered medications on file prior to encounter. No current outpatient medications on file prior to encounter. REVIEW OF SYSTEMS Pertinent items are noted in HPI. Objective: BP 105/57 Pulse 98 Temp 36.6 C (97.9 F) (Temporal) Resp 22 Ht 5' 4.02" (1.626 m) Wt 112 lb 14 oz (51.2 kg) SpO2 100% BMI 19.37 kg/m PHYSICAL EXAM General appearance: in no apparent distress and moderately ill Skin: warm and dry Pulmonary: intubated Abdomen: soft, nontender, and nondistended Sacrum: Wound bed with slough, pink tissue and dry peeling skin. Area nonblanchable. Rubia wound intact with blanchable erythema. Stable 12/17/24 LABS CBC: Lab Results Component Value Date WBC 10.8 (H) 12/22/2024 HGB 8.3 (L) 12/22/2024 HGB 8.7 12/22/2024 HCT 26.7 (L) 12/22/2024 MCV 93.0 12/22/2024 PLT 403 12/22/2024 BMP: Lab Results Component Value Date NA 138 12/22/2024 K 4.0 12/22/2024 CL 106 12/22/2024 CO2 26 12/22/2024 PHOS 2.6 12/22/2024 BUN 14 12/22/2024 CREATININE 0.49 (L) 12/22/2024 PT/INR: Lab Results Component Value Date PROTIME 11.9 12/22/2024 INR 1.1 12/22/2024 Prealbumin: No results found for: "PREALBUMIN" Albumin:No components found for: LABALBU Sed Rate:No results found for: SEDRATE Micro: No components found for: BC Assessment/Plan: Nursing staff to perform dressing change: Sacrum: Unstageable Pressure Injury - Stable -Cleanse area soap and water apply E.T. mix TID and PRN -Envella - Currently resting on envella -waffle chair cushion -Q2hr/PRN turns -glide sheets for T&R -continence checks Q1-2 Hrs/PRN Nutritional support Wound Care to follow Recommend to follow up at [facility] wound [facility] after hospital discharge. Any questions or concerns please secure chat "ACH wound/ostomy". Thank you for the consult! I personally obtained the lamb and critical portions of the history and physical exam. I reviewed the labs, imaging studies, and electronic medical record. I reviewed the chart documentation and discussed the patient with treatment team members. I have edited the note to reflect my clinical findings and my assessment and plan. Please note, the time of this note does not reflect the time I saw this patient today, but the time of this documentaton. Portions of this note including HPI, ROS, impression/plan, and examination may have been copied forward from admission to today as to provide important historical information essential in contributing to medical decision making. Documentation has been reviewed and edited as necessary to support clinical decision making for today's visit and to reflect my own independent evaluation of this patient. Decision making for today's visit and to reflect my own independent evaluation of this patient. Cosigned by Sunil Irvin DO at 12/28/2024 4:36 PM EDT [facility] Respiratory Care Department Progress Note Spontaneous Awakening Trial Safety Screen Spontaneous Awakening Trial (SAT - RN) : Proceed with SAT - No exclusion criteria met (12/16/24944) Spontaneous Awakening Trial (SAT) Outcome: SAT pass (12/16/24944) Wean Screen SpO2>/=88%: Yes (12/22/24524) FiO2</=50%: Yes (12/22/24524) PEEP </=8cmH2O: Yes (12/22/24524) HR <140 BPM: Yes (12/22/24524) RR </= 35 breaths/min: Yes (12/22/24524) MAP >/= 65mmHg: Yes (12/22/24524) Arterial pH >7.30: Yes (12/22/24524) Safety Screen Spontaneous Breathing Trial (SBT - RT) : Proceed with SBT - No exclusion criteria met (12/22/24524) Spontaneous Breathing Trial Weaning Start Time: 0820 (12/22/24854) Weaning Tidal Volume: 198 mL (12/22/24854) Weaning Respiratory Rate: 30 (12/22/24854) Spontaneous Minute Volume (MV): 6.81 (12/22/24854) Total RSBI: 146 (12/22/24854) Weaning Tolerance: Fair (12/22/24854) Weaning Stop Time: 0855 (12/22/24854) Weaning Duration (min): 35 (12/22/24854) Spontaneous Breathing Trial (SBT - RT) Outcome: RSBI>105 - SBT failure (12/22/24854) Vent Settings Vent Mode: Assist control (12/22/24854) Mandatory Type: Pressure Control (12/22/24854) Resp Rate (Set): 14 (12/22/24854) Vt (Set, mL): 350 mL (12/22/24854) IP Set (cm H2O): 8 cm H2O (12/22/24854) FiO2 (%): 30 % (12/22/24854) PEEP/CPAP (cm H2O): 8 cm H20 (12/22/24854) Inspiratory Time (sec): 0.9 sec (12/22/24854) Vitals MAP (mmHg): 71 (12/22/2400) Heart Rate: 99 (12/22/24854) Resp: 17 (12/22/24854) SpO2: 99 % (12/22/24854) Suctioning/Secretions Secretion Amount: Moderate (12/22/24823) Secretion Color: Martinez (12/22/24823) Secretion Consistency: Thick (12/22/24823) ABG results Recent Labs 12/20/24 0426 12/21/24 0517 12/22/24 0354 PHART 7.441 7.510* 7.502* [id number] 45.8* 37.1 37.5 PO2ART 106.8* 83.4 96.4 [id number] 30.5* 28.9* 28.7* [id number] Ventilator Ventilator Ventilator Does this patient meet criteria for termination of mechanical ventilation No - Failed SBT Name of physician notified via secure chat or in person : NA (NA if patient did not meet criteria) Comments: Thank you for involving Respiratory in the care of this patient, ICU Progress Note Name: Claritza Burton : 1945(79 y.o.) Date: 12/21/24 Team: MICU Attending: Dr. Levine Subjective: Hospital Summary: 79 yo F PMH cerebral palsy, PE/DVT on Eliquis, aspiration, esophagitis s/p PEG, recent hospitalizations for parainfluenza, hyponatremia, influenza A and Strep bacteremia who presented to [facility] ED from [facility], (there for 72 hours after the last hospitalization) with acute respiratory failure with pulmonary edema. Initial O2 sats noted to be the 60s, patient intubated and noted to be hypotensive thus was fluid resuscitated. She was noted to be hypertensive and had urinary retention. WBC [address] with infiltr[address] abd/pelvis with concerns for osteomyelitis and discitis at L5-S1 as well as L common femoral vein thrombus. CTA chest demonstrated 1cm percardial effusion. Transferred to [facility] ICU for further management. Infectious workup while in ICU has been unrevealing. MRI does shows signs of L5-S1 discitis/osteomyelitis without other spine impact. Ortho is following and recommending extended IV abx for now and surgery later for spinal stability purpose. Remained intubated and sedated. Interval Events: No acute overnight events. Patient remained on fentanyl and propofol for sedation and intubated with multiple SBT failures. She is barely awaken to painful stimuli, does not track or follow commands at all. Scheduled Meds:apixaban, 5 mg, Oral, BID bisacodyl, 10 mg, Rectal, BID calcium gluconate, 4,000 mg, IntraVENous, Once cefTRIAXone, 2,000 mg, IntraVENous, q24h chlorhexidine, , Topical, Daily guaiFENesin, 200 mg, Oral, TID mupirocin, 1 Application, Nasal, BID pantoprazole, 40 mg, Oral, Nightly Or pantoprazole (ProtoNix) 40 mg in sodium chloride (PF) 0.9 % 10 mL injection, 40 mg, IntraVENous, Nightly polyethylene glycol (PEG) 3350, 17 g, Per G Tube, Daily potassium phosphates 40 mmol in sodium chloride 0.9 % 250 mL IVPB, 40 mmol, IntraVENous, Once senna-docusate sodium, 2 tablet, Per G Tube, Daily sodium chloride 0.9%, 5-40 mL, IntraCATHeter, q8h sodium chloride, 3 mL, Nebulization, BID stomahesive in petrolatum, , Topical, TID Continuous Infusions:propofol, 5-50 mcg/kg/min, Last Rate: 10 mcg/kg/min (12/21/24 1208) Objective: Last Vitals: BP MAP 122/65 (12/21/24 1200) 81 (12/21/24 1200) Arterial BP MAP Temp 36.8 C (98.3 F) (12/21/24 1200) Pulse 107 (12/21/24 1200) Resp (!) 31 (12/21/24 1200) SpO2 95 % (12/21/24 1200) Weight 116 lb 6.5 oz (52.8 kg) (12/21/24 0600) BMI Body mass index is 19.97 kg/m . I/O: 12/20 07 - 12/21 658 In: 3062 [I.V.:1552] Out: 1645 [Urine:1645] Ventilator: Ventilation Day(s): 1 Resp Rate (Set): 10 Vt (Set, mL): 350 mL IP Set (cm H2O): 6 cm H2O FiO2 (%): 30 % PEEP/CPAP (cm H2O): 8 cm H20 Inspiratory Time (sec): 0.9 sec Oxygen Delivery: Invasive Lines / Tubes / Drains: CVC Triple Lumen 12/13/24 Right Internal jugular (Active) Number of days: 0 Peripheral IV 12/13/24 Anterior;Right Forearm (Active) Number of days: 0 Urethral Catheter (Active) Number of days: 0 ETT 7.5 mm (Active) Number of days: 0 Enterostomy PEG Gastric (Active) Number of days: 0 Central Line Indication: Inadequate peripheral access despite documented ultrasound attempts AND unable to place extended dwell PIV Puentes Indications: Acute urinary retention or urinary obstruction and Hourly I&Os (Critical Care ONLY) Restraints: Restraints Non-Violent Or Non-Self Destructive Dec 13, 2024 12:57 Pm Edt Restraint order already placed. Order is valid for duration of episode. Wounds: Constitutional: General Appearance []WDWN []Obese [x]Cachectic [x]Thin [x]Ill Eyes: Inspection of Pupils/Irises Pupils round and react: [x]Yes []No Sclera: []Icteric [x]Non-Icteric Inspection of Conjunctiva/Lids Conjunctiva: []Injected [x]Non-Injected Lids: [x]Intact []Lesion Present ENT/Mouth: External Inspection of ears/nose [x] Normal [] Scar/Lesion/Mass Inspection of teeth/lips/gums Dentition: [x][place] Teeth []Dentures Lips/Gums: [x]Intact []Lesion Present Mucosa: [x][place] [x]Moist []Dry Neck: External Appearance Overall Appearance: [x]Normal []Lesion/Mass/Crepitus Present Trachea midline: [x]Yes []No Thyroid [x]Normal []Enlarged []Tender []Mass []Absent Respiratory: Respiratory effort []Labored []Non-Labored [x] Mechanically-Ventilated Auscultation - decreased breath sounds []Clear [x]Crackles []Wheezes []Rhonchi Cardiovascular: Auscultation Rate: [x]Regular []Irregular []Tachycardia []Bradycardia Rhythm: [x]Regular []Irregular Murmur: []Present [x]Absent Extremities Peripheral Edema: []Present [x]Absent Varicosities: []Present [x]Absent Gastrointestinal: Abdomen Palpation: [x]Soft []Firm []Tender [x]Non-Tender []Distended [x]Non-distended Mass: []Present [x]Absent Bowel Sounds: [x]Present []Absent Hernia: []Present []Absent Liver/Spleen: []Hepatosplenomegaly []Organomegaly Absent Musculoskeletal: Inspection of Digits and Nails Cyanosis: []Present [x]Absent Clubbing: []Present [x]Absent Ischemia: []Present [x]Absent Infection: []Present [x]Absent Extremities GERMAN Equally: Except ([]RUE []RLE []LUE []LLE) Strength/Tone: Intact and Normal ([]RUE []RLE []LUE []LLE) Skin: Inspection [x]Normal []Rash []Lesion []Ulcer Palpation [x]Warm []Cool [x]Dry []Clammy []Nodules []Induration []Skin-tightening Cap-Refill: [] <3 sec [] >3 seconds (delayed) Neurologic: GCS EYE: 3 - Opens to verbal commands GCS MOTOR: 6 - Obeys commands for movement GCS VERBAL: 1 - No response Total GCS: 7 [] Sensation grossly intact Psych: Mental Status Alert: [x]Yes [] No Oriented: []x0 []X1 []X2 []X3 - unable to assess due to sedation and intubation Mood/Affect [x]Normal []Flat []Agitated []Depressed []Anxious []Calm [x]Sedated [x]NAD [facility] within last 24 hours- BMP: Recent Labs 12/19/24 0654 12/20/24 0615 12/21/24 0637 NA 138 134* 133* K 4.0 4.2 4.1 CL 103 103 102 CO2 31 29 28 BUN 11 10 14 CREATININE 0.51* 0.47* 0.54* CALCIUM 8.1* 7.9* 7.8* MG 1.9 1.9 2.4 PHOS 1.5* 1.9* 1.5* LFTs: Recent Labs 12/19/24 0654 12/20/24 0615 12/21/24 0637 AST 15 ALT 6 <6 <6 PROT 5.3* 4.8* 4.9* ALBUMIN 2.4* 2.0* 1.9* BILITOT 0.4 0.3 0.3 ALKPHOS 64 58 61 Glucose: Recent Labs 12/18/24 1529 12/19/24 0654 12/20/24 0615 12/21/24 0637 GLUCOSE 104 132* 108 139* Procal: Recent Labs 12/21/24 0637 PROCAL 0.12* CBC: Recent Labs 12/19/24 0654 12/20/24 0426 12/20/24 0615 12/21/24 0517 12/21/24 0637 WBC 10.5 -- 10.3 -- 18.0* HGB 8.8* < > 8.2* 9.5 8.4* HCT 27.3* -- 26.0* -- 26.2* PLT 459* -- 372 -- 394 MCV 89.5 -- 91.5 -- 92.3 RDW 16.0* -- 16.0* -- 16.2* < > = values in this interval not displayed. ABGs: Recent Labs 12/19/24 0614 12/20/24 0426 12/21/24 0517 PHART 7.486* 7.441 7.510* [id number] 41.8 45.8* 37.1 PO2ART 140.4* 106.8* 83.4 PFQ3HIT 30.9* 30.5* 28.9* [id number] Ventilator Ventilator Ventilator Lactic Acid: No results for input(s): "LACTATE" in the last 72 hours. INR: Recent Labs 12/19/24 0654 12/20/24 0615 12/21/24 0637 INR 1.1 1.1 1.1 Cardiac Injury Profile: No results for input(s): "CKTOTAL", "CKMB", "TROPONINI" in the last 72 hours. Labs in Last 3 months: Lab Results Component Value Date TSH 0.68 12/13/2024 INR 1.1 12/21/2024 Microbiology- Urine Cx: Lab Results Component Value Date URINECX No growth (<1,000 CFU/mL) 12/13/2024 Blood Cx: Lab Results Component Value Date BLOODCX No growth at 5 days 12/13/2024 Sputum Cx: Lab Results Component Value Date RESPCULT Few respiratory reba present. 12/14/2024 Gram Stain: Lab Results Component Value Date LABGRAM 12/16/2024 Many Polymorphonuclear leukocytes per low power field LABGRAM No organisms seen 12/16/2024 PNA PCR: Lab Results Component Value Date HUMANMETAPNE Not Detected 12/14/2024 COVID19: No results found for: COVID19 Legionella Ag: Lab Results Component Value Date LEGIONELLAPN Not Detected 12/14/2024 Strep Ag: No results for input(s): "STREPPNEUMO" in the last 72 hours. Imaging- abnormal CT Chest Abd/Pelvis Assessment and Plan: Principal Problem: Acute hypoxemic respiratory failure (HCC) Assessment: Acute Respiratory Failure with Hypoxia 2/2 to influenza A and parainfluenza PNA Chronic Osteomyelitis/discitis L5-S1 s/p biopsy, path neg, gram stain neg. 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 Plan: Remained in ICU on mechanical ventilation with sedation with propofol and fentanyl. Will cut Fentanyl today and wean propofol then retry SBT/SAT. Can do precedex instead if patient is agitated. Unrevealing infectious workup. Blood culture negative for 48 hours. ID is following. IV abx de-escalate to ceftriaxone for 8 week total course with end date 02/10. PICC line will be needed. w S/p bone biopsy 12/16 - culture negative 48 hours, no organisms seen on gram stain No acute surgical intervention at this time for Ortho though pt will benefit for spinal stability support. Continue eliquis for DVT Continue tube feeds Spot diuresis 40mg Lasix IV. Net I/Os neg goal. unremarkable formal TTE for vegetation evaluation. Some diastolic dysfunction, expected with age, pulmonary artery systolic pressure not found in echo to calculate the H2PEF score. Daily labs GI Prophylaxis: Pantoprazole IV DVT Prophylaxis: Full anticoagulation Disposition: Remain in ICU Status Cosigned by Valentina Kerr MD at 12/21/2024 6:06 PM EDT Associated attestation - Valentina Kerr MD - 12/21/2024 6:06 PM EDT I have personally performed a [id number] diagnostic evaluation on this patient on date of service 12/21/24. History, labs, imaging studies, and electronic medical record have been reviewed by me. This note documented by the [x]wash house worker []MARISOL reflects my history, exam, and medical decision making. I have reviewed and agree with the care plan. Changes were made in the orders as necessary. ROS documentation was reviewed and negative unless otherwise stated in HPI. Assessment: Acute hypoxic respiratory failure influenza A/parainfluenza PNA Discitis/osteomyelitis L5-S1 (suspect 2/2 prior episode bacteremia) Hx PE/LLE DVT on DOAC prior to admission Urinary retention w/chronic puentes s/p hx bladder cancer Plan: Sedation: d/c fentanyl then wean propofol for SBT today. If requires sedation to be resumed, would transition to precedex Diurese today S/p bone bx: will eventually need surgery per ortho for spinal stabilization, but no acute surgical needs from source control standpoint (cx negative, blood cx negative) Empiric abx mgmt per ID Continue eliquis Chronic-appearing changes on CT chest including bronchiectasis BL: consider further w/u for dysphagia/chronic aspiration once extubated Critical care time spent reviewing labs/films, examining patient, collaborating with other physicians but excluding procedures for life threatening organ failure is 33 minutes. Orthopedic Surgery Progress Note Orthopedic surgery bedside to attempt spine exam. Patient is intubated and sedated. She is unable to follow commands and does not open her eyes on examination. CT biopsy 12/16/2024 demonstrates no growth x 5 days. Blood cultures 12/16/2024 demonstrates no growth x 5 days. She is currently undergoing daily spontaneous breathing trials, and failed criteria for termination of mechanical ventilation yesterday (12/20/2024). Discussed with Dr. Tellez. Plan for continued IV antibiotics per ID (ceftriaxone through 02/10/2025). She will then follow-up as an outpatient following antibiotic completion to discuss potential surgical options Please page Ortho resident on-call if/when patient becomes able to perform tertiary examination. Orthopaedic surgery will sign off. Please page parks and recreation manager orthopaedic resident for questions or concerns. Vancomycin therapy has been discontinued by Dr. Carver on 12/21/24. Thank you for the consult. Pharmacy signing off for vancomycin dosing. Chrissy Anguiano RPh, PharmD Date: 12/21/24 Time: 10:15 AM Pharmacy to Dose Vancomycin - Progress Note Lab Results Component Value Date CREATININE 0.54 (L) 12/21/2024 BUN 14 12/21/2024 WBC 18.0 (H) 12/21/2024 VANCOTROUGH 28.0 12/19/2024 Doses, serum creatinine, and vancomycin levels interfaced automatically to [employer] and data has been analyzed and interpreted. Infectious Diagnosis: blood/bone & joint Est CrCl: 73 mL/min (Cockcroft-Gault) Assessment: Current regimen vancomycin 1250 mg every 24 hours Predicted AUC = 491 mg/L*hr (goal 400-600 mg/L*hr) PAUC = 95% (probability that AUC is >400 mg/L*hr) Pconc = 1% (probability that Ctrough is above 20 mcg/mL (toxicity)) Plan: Is the current dose therapeutic? [x] Yes - obtain next level on 12/25 unless predicted AUC is sub-/supra-therapeutic or change in serum creatinine. Trend serum creatinine. Trend AUC using Bayesian Modeling. Orders placed. DATE: 12/21/24 TIME: 8:07 AM Zachary Alvarado RPh Clinical Pharmacist Available via Secure Chat Images from the original note were not included. [facility] - Infectious Diseases Attending Progress Note Subjective: Following for influenza A/ VDRF and L5-S1 VO/diskitis with recent hx of Strep alactolyticus BSI (10/30/24- [facility] treated with PO omnicef by ID) with back pain at that time. Remains in ICU on vent. FiO2 30%. Afebrile. CT-guided bone biopsy is sterile. Blood cx remain sterile. She is tolerating vancomycin and meropenem. Acute rise in leukocytosis today of 18k. Objective: Vitals: Patient Vitals for the past 24 hrs: BP Temp Temp src Pulse Resp SpO2 Weight 12/21/24 0746 -- -- -- 103 17 95 % -- 12/21/24 0630 106/54 -- -- 102 20 95 % -- 12/21/24 0615 112/57 -- -- 101 20 97 % -- 12/21/24 0600 114/56 -- -- 102 22 97 % 52.8 kg (116 lb 6.5 oz) 12/21/24 0545 124/57 -- -- 104 22 97 % -- 12/21/24 0530 123/58 -- -- 106 21 97 % -- 12/21/24 0515 128/65 -- -- 112 22 96 % -- 12/21/24 0500 110/56 -- -- 105 24 94 % -- 12/21/24 0445 111/58 -- -- 108 (!) 26 93 % -- 12/21/24 0430 128/57 -- -- 110 (!) 28 92 % -- 12/21/24 0415 125/77 -- -- 109 24 92 % -- 12/21/24 0400 144/68 36.7 C (98.1 F) Temporal 116 23 93 % -- 12/21/24 0345 113/67 -- -- 110 23 97 % -- 12/21/24 0330 137/67 -- -- 105 21 98 % -- 12/21/24 0315 114/59 -- -- 102 19 96 % -- 12/21/24 0300 108/58 -- -- 103 16 97 % -- 12/21/24 0245 107/58 -- -- 103 19 96 % -- 12/21/24 0230 99/60 -- -- 105 18 96 % -- 12/21/24 0215 108/56 -- -- 106 22 97 % -- 12/21/24 0200 108/57 -- -- 110 18 97 % -- 12/21/24 0145 111/64 -- -- 110 22 96 % -- 12/21/24 0130 120/63 -- -- 115 19 96 % -- 12/21/24 0115 124/61 -- -- 117 18 96 % -- 12/21/24 0100 113/71 -- -- 118 17 96 % -- 12/21/24 0045 123/70 -- -- 114 16 96 % -- 12/21/24 0030 106/87 -- -- 119 17 96 % -- 12/21/24 0015 135/55 -- -- 115 18 97 % -- 12/21/24 0000 130/66 37.3 C (99.1 F) Temporal 114 22 97 % -- 12/20/24 2345 122/71 -- -- 115 19 97 % -- 12/20/242329 111/61 -- -- 108 18 95 % -- 12/20/242328 -- -- -- 109 21 96 % -- 12/20/242314 113/58 -- -- 110 17 97 % -- 12/20/242299 110/57 -- -- 110 19 96 % -- 12/20/242244 107/60 -- -- 109 21 97 % -- 12/20/242229 115/61 -- -- 110 22 97 % -- 12/20/242214 120/58 -- -- 112 17 96 % -- 12/20/242199 122/54 -- -- 114 18 96 % -- 12/20/242144 115/56 -- -- 111 21 98 % -- 12/20/242129 114/54 -- -- 109 23 97 % -- 12/20/242114 115/58 -- -- 111 23 95 % -- 12/20/242099 114/64 -- -- 113 22 97 % -- 12/20/242044 123/64 -- -- 115 21 97 % -- 12/20/24 2030 132/73 -- -- (!) 121 20 97 % -- 12/20/242014 117/60 -- -- 111 23 100 % -- 12/20/242006 -- -- -- 113 20 100 % -- 12/20/241999 129/61 37.3 C (99.2 F) Temporal 117 15 100 % -- 12/20/241944 109/57 -- -- 111 22 97 % -- 12/20/24 193 115/62 -- -- 111 19 98 % -- 12/20/241914 118/57 -- -- 110 20 97 % -- 12/20/24 1900 112/54 -- -- 110 20 100 % -- 12/20/24 184 118/60 -- -- 109 24 99 % -- 12/20/24 183 123/61 -- -- 111 23 100 % -- 12/20/24 181 119/59 -- -- 109 24 98 % -- 12/20/24 1800 114/62 -- -- 109 21 97 % -- 12/20/24 1745 116/58 -- -- 108 21 98 % -- 12/20/24 1730 110/58 -- -- 108 18 100 % -- 12/20/24 1715 109/62 -- -- 108 19 100 % -- 12/20/24 1700 114/55 -- -- 108 21 99 % -- 12/20/24 1645 121/57 -- -- 109 22 100 % -- 12/20/24 1630 115/70 -- -- 109 23 100 % -- 12/20/24 1615 120/62 36.5 C (97.7 F) -- 110 23 100 % -- 12/20/24 1600 121/62 -- -- 108 25 100 % -- 12/20/24 1545 126/58 -- -- 108 25 100 % -- 12/20/24 1530 124/62 -- -- 109 (!) 26 100 % -- 12/20/24 1522 -- -- -- 97 18 100 % -- 12/20/24 1515 118/61 -- -- 106 23 100 % -- 12/20/24 1500 120/57 -- -- 107 22 99 % -- 12/20/24 1445 115/67 -- -- 108 19 99 % -- 12/20/24 1430 118/62 -- -- 104 20 100 % -- 12/20/24 1415 119/59 -- -- 104 19 100 % -- 12/20/24 1400 130/59 -- -- 102 20 100 % -- 12/20/24 1345 119/63 -- -- 101 21 100 % -- 12/20/24 1330 111/64 -- -- 98 20 100 % -- 12/20/24 1323 -- -- -- 97 22 100 % -- 12/20/24 1315 108/55 -- -- 95 21 100 % -- 12/20/24 1300 108/55 -- -- 93 14 100 % -- 12/20/24 1245 109/54 -- -- 94 22 100 % -- 12/20/24 1230 102/58 -- -- 93 18 100 % -- 12/20/24 1215 102/55 -- -- 93 19 99 % -- 03/23/25 1200 105/56 36.8 C (98.2 F) -- 93 20 100 % -- 12/20/24 1145 100/62 -- -- 93 20 99 % -- 12/20/24 1130 102/55 -- -- 92 19 99 % -- 12/20/24 1115 101/51 -- -- 92 21 100 % -- 12/20/24 1100 104/52 -- -- 92 19 100 % -- 12/20/24 1045 108/55 -- -- 92 22 100 % -- 12/20/24 1030 103/52 -- -- 90 19 (!) 89 % -- 12/20/24 1015 107/54 -- -- 93 23 98 % -- 12/20/24 1000 (!) 100/49 -- -- 92 20 99 % -- 12/20/24 0945 (!) 103/48 -- -- 91 18 94 % -- 12/20/24 0930 100/58 -- -- 91 15 100 % -- 12/20/24 0915 106/63 -- -- 94 17 99 % -- 12/20/24 0900 97/51 -- -- 91 19 100 % -- 12/20/24 0845 101/55 -- -- 94 21 100 % -- 12/20/24 0830 105/54 -- -- 93 21 99 % -- 12/20/24 0819 -- 36.8 C (98.2 F) -- 96 21 100 % -- 12/20/24 0815 95/54 -- -- 92 17 100 % -- Physical Exam Vitals and nursing note reviewed. Constitutional: Appearance: She is ill-appearing. Comments: On vent HENT: Head: Normocephalic. Right Ear: External ear normal. Left Ear: External ear normal. Nose: Nose normal. Mouth/Throat: Comments: + ETT Eyes: General: No scleral icterus. Cardiovascular: Rate and Rhythm: Regular rhythm. Tachycardia present. Pulmonary: Comments: Effort per vent; coarse BS Abdominal: General: There is no distension. Palpations: Abdomen is soft. Tenderness: There is no abdominal tenderness. Musculoskeletal: Comments: + arthritic joint changes; no synovitis or crepitance of any limb Skin: General: Skin is warm and dry. Findings: No rash. Psychiatric: Comments: Unable to assess Labs: Lab Results Component Value Date/Time NA 133 (L) 12/21/2024 0637 K 4.1 12/21/2024 0637 CL 102 12/21/2024 0637 CO2 28 12/21/2024 0637 BUN 14 12/21/2024 0637 CREATININE 0.54 (L) 12/21/2024 0637 GLUCOSE 139 (H) 12/21/2024 0637 CALCIUM 7.8 (L) 12/21/2024 0637 PROT 4.9 (L) 12/21/2024 0637 BILITOT 0.3 12/21/2024 0637 ALKPHOS 61 12/21/2024 0637 AST 21 12/21/2024 0637 ALT <6 12/21/2024 0637 PROCAL 4.24 (H) 12/13/2024 1343 Lab Results Component Value Date/Time WBC 18.0 (H) 12/21/2024 0637 HGB 8.4 (L) 12/21/2024 0637 HGB 9.5 12/21/2024 0517 HCT 26.2 (L) 12/21/2024 0637 PLT 394 12/21/2024 0637 LYMPHOPCT 10.3 (L) 12/21/2024 0637 LYMPHOPCT 20 12/19/2024 0654 MONOPCT 7.4 12/21/2024 0637 MONOPCT 8 12/19/2024 0654 BASOPCT 0.3 12/21/2024 0637 BASOPCT 2 12/17/2024 0335 NEUTROABS 14.5 (H) 12/21/2024 0637 Micro: 12/16- bone biopsy cx- NGTD 12/14- pneumonia PCR panel- + influenza A 12/14- resp cx- resp reba 12/14- CRAB PCR- negative 12/14- C auris PCR- negative 12/13- RVP- + influenza A 12/13- blood cx- negative 12/13- MRSA nasal PCR- negative 12/13- Legionella and Strep urine Ag- negative 12/13- urine cx- negative Brody: 10/30- blood cx- Strep alactolyticus hogan-S Lines: RIJ TLC (12/13) Puentes PEG Radiography/Echo/Other: 12/21- CXR- Pulmonary vascular congestion and/or infiltrates, similar to prior day. 12/17- MRI C-spine- No evidence of osteomyelitis discitis. No peripherally enhancing fluid collection to suggest an epidural or soft tissue abscess. Multilevel spondylosis most pronounced at C4-C5 where there is severe canal stenosis without cord compression. No underlying cord signal change. There is also moderate to severe canal stenosis at C3-C4 with cord flattening without underlying signal change. Multilevel variable foraminal stenosis as outlined, up to severe. 12/17- MRI T-spine- No evidence of osteomyelitis discitis. No peripherally enhancing fluid collection to suggest an epidural or soft tissue abscess. Findings suggesting recent (acute to subacute) Schmorl's nodes at the inferior endplates of T10 and T11. No significant canal or foraminal stenosis. Bilateral pleural effusions and associated opacities. 12/15- CT C-spine- 1. Moderate degenerative changes in the mid cervical spine. 2. Canal stenosis is most pronounced at C3-4 and C4-5. There is a mild impression on the ventral spinal cord. 3. No direct CT evidence of discitis/osteomyelitis on this unenhanced scan. 4. Mild inflammatory changes in the left mastoid air cells. This is nonspecific but may indicate mastoiditis. 5. There is a significant amount of cerumen/debris in the left external auditory canal. Please correlate with direct visualization. 12/15- MRI L-spine- Marrow signal changes of L5-S1 vertebral bodies with fluid signal of the disc are consistent with osteomyelitis discitis. No peripherally enhancing fluid collection to suggest an epidural or paraspinal abscess. Small Schmorl's node at the inferior endplate of T11 with mild edema and enhancement suggest acute to subacute Schmorl's node formation. Multilevel spondylosis as outlined. No high-grade canal stenosis. Multilevel foraminal stenoses, most pronounced at L5-S1. Anatomic Lumbar Variant: None. L4-5 is considered the level of the iliac crest and assume there are 5 lumbar-type vertebrae. 12/14- TTE- Left Ventricle: Left ventricle is smaller than normal. Normal wall thickness. Normal left ventricular systolic function. EF by 2D Simpsons Biplane is 67%. Normal wall motion. Grade I diastolic dysfunction with normal LAP. Right Ventricle: Right ventricle size is normal. Reduced systolic function. TAPSE is abnormal. Pericardium: Small (<1 cm) pericardial effusion present. Pericardial effusion is echolucent. Features indicating an absence of cardiac tamponade are present. No significant valvular abnormalities. 12/13- CT c/a/p- 1. Multifocal infiltrates concerning for multifocal pneumonia. 2. Small to moderate left pleural effusion. 3. Moderate pericardial effusion. 4. Moderate stool throughout the colon and a large amount of stool in the rectum. Consider constipation and/or fecal impaction. Perirectal fat stranding is present suggesting proctitis including stercoral proctitis. 5. Chronic osseous changes. Erosive changes at L5-S1. 12/13- CT brain- 1. No evidence of an intracranial mass, edema or parenchymal flexion. If there is persistent concern for an abnormality not seen by CT, consider MRI and/or CSF analysis, if appropriate. 2. Cerebral volume loss. White matter changes likely due to microangiopathic disease. 3. Nonspecific left mastoid effusion. An infectious process cannot be excluded. Antimicrobials, Start/End Dates: Vancomycin Meropenem Impression: Influenza A with acute hypoxic respiratory failure/ VDRF L5-S1 culture-negative VO/ diskitis but with preceding Strep alactolyticus BSI (10/30/24) at [facility] treated with PO-- likely hematogenous seeding of spine - had colonoscopy at [facility] at time of bacteremia with mucosal irritation - s/p CT-guided biopsy (12/16) on abx Leukocytosis Pericardial effusion Hx bladder cancer with chronic puentes for urinary retention Hx VTE Augmentin allergy--> tolerates carbapenems Erythromycin allergy Plan: De-escalate abx to ceftriaxone 2g IV q24h for a planned 8 weeks--> stop date 02/10. Targeting previous pathogen with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 respiratory reba present. 12/14/2024 Gram Stain: Lab Results Component Value Date LABGRAM 12/16/2024 Many Polymorphonuclear leukocytes per low power field LABGRAM No organisms seen 12/16/2024 PNA PCR: Lab Results Component Value Date HUMANMETAPNE Not Detected 12/14/2024 COVID19: No results found for: COVID19 Legionella Ag: Lab Results Component Value Date LEGIONELLAPN Not Detected 12/14/2024 Strep Ag: No results for input(s): "STREPPNEUMO" in the last 72 hours. 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 Wean down sedation and O2 as tolerated. Daily SBT/SAT. Follow up on hogan cultures. Positive Influenza A s/p Tamil flu course completion. Resp grows rare gram positive coci. Blood culture negative for 48 hours. ID is following. Continue extended IV abx of vanc and meropenem now at this time. If no new isolates, plan to de-escalate to ceftriaxone for 8 week total course. S/p bone biopsy 12/16 - culture negative 48 hours, no organisms seen on gram stain No acute surgical intervention at this time for Ortho though pt will benefit for spinal stability support. Transition from heparin drip to eliquis today, for the treatment of K common femoral vein thrombosis Continue tube feeds No more diuresis, daily chest xray unremarkable formal TTE for vegetation evaluation. Some diastolic dysfunction, expected with age, pulmonary artery systolic pressure not found in echo to calculate the H2PEF score. Daily labs GI Prophylaxis: Pantoprazole IV DVT Prophylaxis: Full anticoagulation Disposition: Remain in ICU Status Cosigned by Noni Levine MD at 12/19/2024 10:03 PM EDT Associated attestation - Noni Levine MD - 12/19/2024 10:03 PM EDT I have personally seen the patient and examined along with the resident. I personally obtained the lamb and relevent portions of the history and performed physical exam. I reviewed the chart including MAR, labs, and radiology and agree with the patient's plan of action as discussed with the resident. This note reflects my plan of care as I have edited the note to reflect my findings and my assessment and plan. ROS documentation was reviewed and negative unless otherwise stated in HPI. Chief Complaint: Acute Respiratory with Hypoxia Additional pertinent interval history, ROS, and physical exam findings: Patient seen and examined. Intubated, sedated. Opens eyes tracks. Does not follow commands. Failed SBTs due to tachypnea. 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 Weaning Propofol and Fentanyl for sedation. Re-trial SBTs daily. Failing due to tachypnea. - follow cultures continue broad spectrum antibiotics with Meropenem. ID consulted. De-escalate pending sensitivities. Will need 8 weeks antibiotics. - MRI Cervical and Thoracic spine clear from infection. - ortho spine following. May need surgical stabilization when clinically improved post antibiotics. - ESR/CRP Elevated - Restart Eliquis - diuresis with lasix for fluid goal negative 1-2L. - continue tube feeds. Code Status: DNR-CCA, ok for intubation Disposition: Remain in ICU for ongoing care Total critical care time caring for this patient with life threatening, unstable organ failure, including direct patient contact, management of life support systems, review of data including imaging and labs, discussions with other team members and physicians is 32 minutes, excluding procedures. Noni Levine MD Pulmonary and Critical Care Medicine Attending Pager #[phone] Family Communication Number Called: [phone] Name of Designated Family Guidance Consultant: Key Dickinson Relationship: niece Phone Call Outcome: Left a HIPAA complaint voicemail. Family Guidance Consultant Updated on the Following: Called and relayed changes and progress made today. [facility] Respiratory Care Department Progress Note Spontaneous Awakening Trial Safety Screen Spontaneous Awakening Trial (SAT - RN) : Proceed with SAT - No exclusion criteria met (12/16/24944) Spontaneous Awakening Trial (SAT) Outcome: SAT pass (12/16/24944) Wean Screen SpO2>/=88%: Yes (12/17/24356) FiO2</=50%: Yes (12/17/24356) PEEP </=8cmH2O: Yes (12/17/24356) HR <140 BPM: Yes (12/17/24356) RR </= 35 breaths/min: Yes (12/17/24356) MAP >/= 65mmHg: Yes (12/17/24356) Arterial pH >7.30: Yes (12/17/24356) Safety Screen Spontaneous Breathing Trial (SBT - RT) : Proceed with SBT - No exclusion criteria met (12/17/24356) Spontaneous Breathing Trial Weaning Start Time: 919 (12/18/24926) Weaning Tidal Volume: 150 mL (12/18/24926) Weaning Respiratory Rate: 33 (12/18/24926) Spontaneous Minute Volume (MV): 6 (12/18/24926) Total RSBI: 220 (12/18/24926) Weaning Tolerance: Poor (12/18/24926) Weaning Stop Time: 926 (12/18/24926) Weaning Duration (min): 7 (12/18/24926) Spontaneous Breathing Trial (SBT - RT) Outcome: RSBI>105 - SBT failure (12/18/24926) Vent Settings Vent Mode: Assist control (12/18/241299) Mandatory Type: Pressure Control (12/18/24926) Resp Rate (Set): 14 (12/18/24814) Vt (Set, mL): 350 mL (12/18/24814) FiO2 (%): 40 % (12/18/241299) PEEP/CPAP (cm H2O): 8 cm H20 (12/18/24926) Inspiratory Time (sec): 0.9 sec (12/18/24814) Vitals MAP (mmHg): 76 (03/21/25 1300) Heart Rate: 87 (12/18/24 1300) Resp: 14 (12/18/24 1300) SpO2: 100 % (12/18/24 1300) Suctioning/Secretions Secretion Amount: Large (12/18/24 0815) Secretion Color: White (12/18/24 0815) Secretion Consistency: Thick (12/18/24 0815) ABG results Recent Labs 12/16/24 0322 12/17/24 0509 12/18/24 0420 PHART 7.453* 7.500* 7.495* ABP3EOS 36.2 34.1* 38.4 PO2ART 88.8 104.0* 103.0* [id number] 24.8 26.0* 28.9* [id number] Ventilator Ventilator Ventilator Does this patient meet criteria for termination of mechanical ventilation No - Failed SBT Name of physician notified via secure chat or in person : N/A (NA if patient did not meet criteria) Comments: Thank you for involving Respiratory in the care of this patient, Images from the original note were not included. [facility] Wound Care progress Note Claritza Burton AGE: 79 y.o. GENDER: female : 1945 Subjective: HISTORY of PRESENT ILLNESS HPI Claritza Burton is a 79 y.o. female who presents for a wound care follow up. HPI: 79 yo F PMH cerebral palsy, PE/DVT on Eliquis, aspiration, esophagitis s/p PEG, recent hospitalizations for parainfluenza, hyponatremia, influenza A and Strep bacteremia who presented to [place] ED with acute respiratory failure with concerns for pulmonary edema. Wound Care consulted for pressure injury Patient resting in bed, intubated, sedated and in soft wrist restraints. Treatment at bedside. PAST MEDICAL HISTORY Past Medical History: Diagnosis Date Anxiety Cancer (CMS/HCC) (HCC) Cerebral palsy (HCC) 1946 Frequent urination Headache Hypertension Palpitations PAST SURGICAL HISTORY Past Surgical History: Procedure Laterality Date BLADDER SURGERY 2010 EYE SURGERY cataract HIP FRACTURE SURGERY Left 2000 HYSTERECTOMY ORTHOPEDIC SURGERY TONSILLECTOMY (HISTORICAL) FAMILY HISTORY Family History Problem Relation Name Age of Onset Cancer Mother Diabetes Father SOCIAL HISTORY Social History Tobacco Use Smoking status: Never Smokeless tobacco: Never Substance Use Topics Alcohol use: No Drug use: No ALLERGIES Allergies Allergen Reactions Ativan [Lorazepam] Augmentin [Amoxicillin-Pot Clavulanate] Erythromycin Symmetrel [Amantadine] MEDICATIONS No current facility-administered medications on file prior to encounter. No current outpatient medications on file prior to encounter. REVIEW OF SYSTEMS Pertinent items are noted in HPI. Objective: BP 137/65 Pulse 90 Temp 36.4 C (97.5 F) Resp 14 Ht 1.626 m (5' 4.02") Wt 52.4 kg (115 lb 8.3 oz) SpO2 100% BMI 19.82 kg/m PHYSICAL EXAM General appearance: in no apparent distress and moderately ill Skin: warm and dry Pulmonary: intubated Abdomen: soft, nontender, and nondistended Sacrum: Wound bed with slough, pink tissue and dry peeling skin. Area nonblanchable. Rubia wound intact with blanchable erythema. 12/17/24 LABS CBC: Lab Results Component Value Date WBC 8.4 12/18/2024 HGB 8.5 12/18/2024 HGB 6.5 (LL) 12/18/2024 HCT 20.5 (L) 12/18/2024 MCV 91.1 12/18/2024 PLT 362 12/18/2024 BMP: Lab Results Component Value Date NA 139 12/18/2024 K 3.6 12/18/2024 CL 106 12/18/2024 CO2 27 12/18/2024 PHOS 1.6 (L) 12/18/2024 BUN 16 12/18/2024 CREATININE 0.49 (L) 12/18/2024 PT/INR: Lab Results Component Value Date PROTIME 12.6 (H) 12/18/2024 INR 1.1 12/18/2024 Prealbumin: No results found for: "PREALBUMIN" Albumin:No components found for: LABALBU Sed Rate:No results found for: SEDRATE Micro: No components found for: BC Assessment/Plan: Nursing staff to perform dressing change: Sacrum: Unstageable Pressure Injury -Cleanse area soap and water apply E.T. mix TID and PRN -Envella -waffle chair cushion -Q2hr/PRN turns -glide sheets for T&R -continence checks Q1-2 Hrs/PRN Nutritional support Wound Care to follow Recommend to follow up at [facility] after hospital discharge. Any questions or concerns please secure chat "ACH wound/ostomy". Thank you for the consult! I personally obtained the lamb and critical portions of the history and physical exam. I reviewed the labs, imaging studies, and electronic medical record. I reviewed the chart documentation and discussed the patient with treatment team members. I have edited the note to reflect my clinical findings and my assessment and plan. Please note, the time of this note does not reflect the time I saw this patient today, but the time of this documentaton. Portions of this note including HPI, ROS, impression/plan, and examination may have been copied forward from admission to today as to provide important historical information essential in contributing to medical decision making. Documentation has been reviewed and edited as necessary to support clinical decision making for today's visit and to reflect my own independent evaluation of this patient. Decision making for today's visit and to reflect my own independent evaluation of this patient. Cosigned by Sunil Irvin DO at 12/21/2024 2:29 PM EDT Images from the original note were not included. [facility] - Infectious Diseases Attending Progress Note Subjective: Following for discitis/VO. Pt remains intubated, just re-sedated shortly before my arrival, per RN. pt was following commands and tracking for RN when off sedation. Unable to do ROS. Chart, vitals, labs reviewed. Pt afebrile. Objective: Vitals: Patient Vitals for the past 24 hrs: BP Temp Temp src Pulse Resp SpO2 Height Weight 12/18/24 0815 -- -- -- 86 19 100 % -- -- 12/18/24 0730 118/57 -- -- 84 18 100 % -- -- 12/18/24 0715 120/62 -- -- 84 17 100 % -- -- 12/18/24 0700 114/59 36.1 C (97 F) -- 82 15 100 % -- -- 12/18/24 0652 114/55 (!) 35.9 C (96.6 F) -- 83 19 -- -- -- 12/18/24 0621 -- -- -- -- -- -- -- 52.4 kg (115 lb 8.3 oz) 12/18/24 0600 108/59 -- -- 81 17 100 % -- -- 12/18/24 0500 118/58 -- -- 83 17 100 % -- -- 12/18/24 0400 113/50 36.7 C (98 F) Temporal 81 15 100 % -- -- 12/18/24 0300 105/54 -- -- 83 16 100 % -- -- 12/18/24 0200 98/57 -- -- 83 15 100 % -- -- 12/18/24 0100 113/58 -- -- 86 16 100 % -- -- 12/18/24 0000 112/53 36.6 C (97.8 F) Temporal 90 16 100 % -- -- 12/17/24 2339 116/67 -- -- 95 17 100 % -- -- 12/17/24 231 -- -- -- 88 20 100 % -- -- 12/17/24 2300 103/55 -- -- 91 14 100 % -- -- 12/17/24 2200 125/59 -- -- 95 16 100 % -- -- 12/17/24 2100 96/69 -- -- 90 16 100 % -- -- 12/17/242012 -- -- -- 88 19 100 % -- -- 12/17/24 2000 95/50 36.4 C (97.6 F) Temporal 90 13 100 % -- -- 12/17/24 1900 (!) 96/47 -- -- 86 14 100 % -- -- 12/17/24 1800 107/67 36.4 C (97.6 F) -- 89 15 100 % -- -- 12/17/24 1719 -- -- -- 95 23 100 % -- -- 12/17/24 1700 154/59 -- -- 107 22 98 % -- -- 12/17/24 1623 -- -- -- -- -- -- 1.626 m (5' 4.02") -- 12/17/24 1600 151/67 -- -- 106 15 98 % -- -- 12/17/24 1549 -- -- -- 98 19 97 % -- -- 12/17/24 1500 119/62 -- -- 98 23 97 % -- -- 12/17/24 1400 (!) 87/61 -- -- 94 19 97 % -- -- 12/17/24 1300 (!) 100/47 -- -- 84 14 98 % -- -- 12/17/24 1200 112/57 37.2 C (98.9 F) -- 87 17 99 % -- -- 12/17/24 1147 -- -- -- 83 14 99 % -- -- 12/17/24 1100 119/62 -- -- (!) 124 14 99 % -- -- 12/17/24 1000 118/59 -- -- 92 15 97 % -- -- 12/17/24 0900 112/60 -- -- (!) 127 15 98 % -- -- Physical Exam Vitals and nursing note reviewed. Constitutional: General: She is not in acute distress. Appearance: She is ill-appearing. She is not toxic-appearing or diaphoretic. Comments: Intubated, sedated, not arousable. HENT: Head: Normocephalic and atraumatic. Right Ear: External ear normal. Left Ear: External ear normal. Nose: Nose normal. No rhinorrhea. Mouth/Throat: Comments: +ETT Eyes: General: Right eye: No discharge. Left eye: No discharge. Cardiovascular: Rate and Rhythm: Normal rate and regular rhythm. Heart sounds: Normal heart sounds. Skin: Findings: No rash. Neurological: Comments: Sedated, not arousable Psychiatric: Comments: Unable to assess Labs: Lab Results Component Value Date/Time NA 139 12/18/2024 0638 K 3.6 12/18/2024 0638 CL 106 12/18/2024 0638 CO2 27 12/18/2024 0638 BUN 16 12/18/2024 0638 CREATININE 0.49 (L) 12/18/2024 0638 GLUCOSE 126 (H) 12/18/2024 0638 CALCIUM 8.2 (L) 12/18/2024 0638 PROT 4.8 (L) 12/18/2024 0638 BILITOT 0.3 12/18/2024 0638 ALKPHOS 58 12/18/2024 0638 AST 24 12/18/2024 0638 ALT <6 12/18/2024 0638 PROCAL 4.24 (H) 12/13/2024 1343 Lab Results Component Value Date/Time WBC 8.4 12/18/2024 0334 HGB 8.5 12/18/2024 0420 HGB 6.5 (LL) 12/18/2024 0334 HCT 20.5 (L) 12/18/2024 0334 PLT 362 12/18/2024 0334 LYMPHOPCT 20.6 12/18/2024 0334 LYMPHOPCT 10 (L) 12/17/2024 0335 MONOPCT 14.0 (H) 12/18/2024 0334 MONOPCT 7 12/17/2024 0335 BASOPCT 0.6 12/18/2024 0334 BASOPCT 2 12/17/2024 0335 NEUTROABS 5.1 12/18/2024 0334 12/16 bone biopsy path pending Micro: 12/16 biopsy bone stain negative, culture NGTD 12/14 pneumonia PCR flu A 12/14 sputum reba 12/14 A baumannii PCR in process 12/14 C auris PCR in process 12/13 RPP flu A 12/13 BC 2/2 NGTD 12/13 MRSA PCR negative 12/13 Legionella, Pneumococcus urine antigens negative 12/13 urine negative [facility] 12/13 BC 09/30 NGTD 12/13 urine negative 12/11 urine negative 12/11 BC 2/2 negative 12/04 urine negative 12/04 BC 22 negative 10/30/24 blood cultures with S alactolyticus S amp, benzylpenicillin <=0.06, cefotaxime, ceftriaxone <=0.12, erythromycin, linezolid <=2, vanc 0.5. Repeat blood cultures on 11/02/24 finalized negative. Lines: PIV CVC Radiography/Echo/Other: 12/18 CXR Quality: Exam quality: EKG leads obscure small portions of the chest. Lines: An endotracheal tube is identified with distal tip above the leeanna. Right central venous catheter in stable positioning. Cardiomediastinal Silhouette: The cardiomediastinal silhouette is stable compared to prior exam.. Lungs: Interstitial opacities of the left mid-lower lung zone appear slightly increased from prior exam. Superimposed chronic interstitial lung changes seen. No evidence of pleural effusion or pneumothorax. Soft tissue: The soft tissue structures appear unremarkable. Bones: Degenerative change of the thoracic spine is noted. 12/17 CXR Consolidation in the left lower lobe. Reticular opacities throughout the lungs unchanged 12/17 MRI C/T spine Cervical spine: No evidence of osteomyelitis discitis. No peripherally enhancing fluid collection to suggest an epidural or soft tissue abscess. Multilevel spondylosis most pronounced at C4-C5 where there is severe canal stenosis without cord compression. No underlying cord signal change. There is also moderate to severe canal stenosis at C3-C4 with cord flattening without underlying signal change. Multilevel variable foraminal stenosis as outlined, up to severe. Thoracic spine: No evidence of osteomyelitis discitis. No peripherally enhancing fluid collection to suggest an epidural or soft tissue abscess. Findings suggesting recent (acute to subacute) Schmorl's nodes at the inferior endplates of T10 and T11. 12/16 CXR There is improved aeration. Mild basilar infiltrates remain left greater than right. Retrocardiac density also present. No sizable pneumothorax. Cardiac silhouette is within normal limits. Support devices are similar. 12/16 CT c spine 1. Moderate degenerative changes in the mid cervical spine. 2. Canal stenosis is most pronounced at C3-4 and C4-5. There is a mild impression on the ventral spinal cord. 3. No direct CT evidence of discitis/osteomyelitis on this unenhanced scan. 4. Mild inflammatory changes in the left mastoid air cells. This is nonspecific but may indicate mastoiditis. 5. There is a significant amount of cerumen/debris in the left external auditory canal. Please correlate with direct visualization. 12/15 MRI lumbar spine Marrow signal changes of L5-S1 vertebral bodies with fluid signal of the disc are consistent with osteomyelitis discitis. No peripherally enhancing fluid collection to suggest an epidural or paraspinal abscess. Small Schmorl's node at the inferior endplate of T11 with mild edema and enhancement suggest acute to subacute Schmorl's node formation. Multilevel spondylosis as outlined. No high-grade canal stenosis. Multilevel foraminal stenoses, most pronounced at L5-S1. Anatomic Lumbar Variant: None. L4-5 is considered the level of the iliac crest and assume there are 5 lumbar-type vertebrae. 12/14 TTE Left Ventricle: Left ventricle is smaller than normal. Normal wall thickness. Normal left ventricular systolic function. EF by 2D Simpsons Biplane is 67%. Normal wall motion. Grade I diastolic dysfunction with normal LAP. Right Ventricle: Right ventricle size is normal. Reduced systolic function. TAPSE is abnormal. Pericardium: Small (<1 cm) pericardial effusion present. Pericardial effusion is echolucent. Features indicating an absence of cardiac tamponade are present. No significant valvular abnormalities. 12/13 CT head 1. No evidence of an intracranial mass, edema or parenchymal flexion. If there is persistent concern for an abnormality not seen by CT, consider MRI and/or CSF analysis, if appropriate. 2. Cerebral volume loss. White matter changes likely due to microangiopathic disease. 3. Nonspecific left mastoid effusion. An infectious process cannot be excluded. 12/13 CT c/a/p 1. No evidence of an intracranial mass, edema or parenchymal flexion. If there is persistent concern for an abnormality not seen by CT, consider MRI and/or CSF analysis, if appropriate. 2. Cerebral volume loss. White matter changes likely due to microangiopathic disease. 3. Nonspecific left mastoid effusion. An infectious process cannot be excluded. Antimicrobials,Start/End Dates: meropenem Vancomycin oseltamivir Impression: 1) Flu A on oseltamivir 2) L5-S1 discitis/VO, most likely due to hematogenous seeding. Blood cultures remain NGTD, but pt had documented S alactolyticus bacteremia in September when she presented to [facility] with c/o back pain and difficulty walking. This is likely the same process, undertreated VO/discitis. Ortho following for ?need for stabilization of spine 3) Septic shock 4) Poor dentition 5) VDRF Plan: - continue meropenem - finish oseltamivir today - continue vancomycin, pharmacy to dose - follow up biopsy cultures, histopath - if no new isolates, will de-escalate to ceftriaxone for 8 week total course - following Rakel Hawthorne MD Based on diagnoses and management, combination of acute and chronic problems, exacerbations and/or acuity, this visit should be considered to be of moderate complexity. Pharmacy to Dose Vancomycin - Progress Note Lab Results Component Value Date CREATININE 0.49 (L) 12/17/2024 BUN 19 12/17/2024 WBC 8.4 12/18/2024 VANCOTROUGH 29.2 12/15/2024 Doses, serum creatinine, and vancomycin levels interfaced automatically to [employer] and data has been analyzed and interpreted. Infectious Diagnosis: blood/bone & joint Est CrCl: 80 mL/min (Cockcroft-Gault) Assessment: Current regimen vancomycin 1500 mg every 24 hours Predicted AUC = 618 mg/L*hr (goal 400-600 mg/L*hr) PAUC = 100% (probability that AUC is >400 mg/L*hr) Pconc = 16% (probability that Ctrough is above 20 mcg/mL (toxicity)) Plan: Is the current dose therapeutic? [x] No - change current regimen to vancomycin 1250mg every 24hours for predicted AUC 517 mg/L*hr, PAUC = 93% , and Pconc* = 5%. Obtain next level on 12/19. Trend serum creatinine. Trend AUC using Bayesian Modeling. Orders placed. DATE: 12/18/24 TIME: 8:12 AM Zachary Alvarado RPh Clinical Pharmacist Available via Secure Chat ICU Progress Note Name: Claritza Burton : 1945(79 y.o.) Date: 12/18/24 Team: MICU Attending: Dr. Levine Subjective: Hospital Summary: 79 yo F PMH cerebral palsy, PE/DVT on Eliquis, aspiration, esophagitis s/p PEG, recent hospitalizations for parainfluenza, hyponatremia, influenza A and Strep bacteremia who presented to [facility] ED from [facility], (there for 72 hours after the last hospitalization) with acute respiratory failure with pulmonary edema. Initial O2 sats noted to be the 60s, patient intubated and noted to be hypotensive thus was fluid resuscitated. She was noted to be hypertensive and had urinary retention. WBC [address] with infiltr[address] abd/pelvis with concerns for osteomyelitis and discitis at L5-S1 as well as L common femoral vein thrombus. CTA chest demonstrated 1cm percardial effusion. Transferred to [facility] ICU for further management. Interval Events: 12/18 - Patient underwent MRI overnight for C spine and T spine that was unremarkable. Pt underwent CT-guided bone biopsy, C-spine and T-spine MRI. off Levophed. did not pass SBT today Overnight events - Hemoglobin 6.5, down from 7.6 1 unit PRBC ordered, phos replaced LDH, retic count normal, hapto pending Per nursing, Following commands on and off, responding somewhat to pain, was agitated sedated had to be increased from prop 15 to 25 No other nursing concerns 12/18/24 Vitals afebrile, nontachycardic, nontachypneic, BP 120/58, satting 100% on the ventilator Intubated and sedated on - 0 fent and prop 25, on heparin drip Vent settings this morning to 40%, tidal volume 350, PEEP of 8, respiratory rate 14 I/0 last 24 hours - Ins 949 through IV and NGT Out 1L, net negative 116 ml last 24 hours, neg 1L since admit Micro so far only positive for flu ABG this morning pH 7.49, pO2 103, pCO2 38 5 am ABG 7.5/ 34/104 CMP pending - Cr 0.49, K 3.6 otherwise wnl iCal 4.0 Phos 1.6 - replaced Mag 1.9 No leukocytosis, hemoglobin 6.5, down from 7.6, MCV 91, platelets 362 PT 12, INR 1 Chest x-ray 12/17 consolidation in the left lower lobe, reticular opacities throughout the lungs unchanged 12/18 Consolidation in the left lower lobe. Reticular opacities throughout the lungs unchanged Seen and examined bedside. Sedated and intubated. Pupils equal and reactive to light. Not arousing to voice. Scheduled Meds:bisacodyl, 10 mg, Rectal, BID calcium gluconate, 2,000 mg, IntraVENous, Once chlorhexidine, , Topical, Daily meropenem, 2,000 mg, IntraVENous, q8h mupirocin, 1 Application, Nasal, BID oseltamivir, 75 mg, Per G Tube, BID pantoprazole, 40 mg, Oral, Nightly Or pantoprazole (ProtoNix) 40 mg in sodium chloride (PF) 0.9 % 10 mL injection, 40 mg, IntraVENous, Nightly polyethylene glycol (PEG) 3350, 17 g, Per G Tube, Daily senna-docusate sodium, 2 tablet, Per G Tube, Daily sodium chloride 0.9%, 5-40 mL, IntraCATHeter, q8h sodium phosphate in D5, 20 mmol, IntraVENous, Once stomahesive in petrolatum, , Topical, TID vancomycin, 1,500 mg, IntraVENous, q24h Continuous Infusions:fentaNYL, 25-200 mcg/hr, Last Rate: 25 mcg/hr (12/17/24 193) heparin, 5-30 Units/kg/hr, Last Rate: 17 Units/kg/hr (12/18/246) norepinephrine, 1-100 mcg/min, Last Rate: Stopped (12/16/242044) propofol, 5-50 mcg/kg/min, Last Rate: 25 mcg/kg/min (12/18/24 033) Objective: Last Vitals: BP MAP 118/58 (12/18/24 0500) 75 (12/18/24 0500) Arterial BP MAP Temp 36.7 C (98 F) (12/18/24 0400) Pulse 83 (12/18/24 0500) Resp 17 (12/18/24 0500) SpO2 100 % (12/18/24 0500) Weight 65.4 kg (144 lb 2.9 oz) (12/15/24 0512) BMI Body mass index is 24.74 kg/m . I/O: 12/17 0700 - 12/18 0659 In: 949 [I.V.:669] Out: 1065 [Urine:1065] Ventilator: Ventilation Day(s): 1 Resp Rate (Set): 14 Vt (Set, mL): 350 mL FiO2 (%): 40 % PEEP/CPAP (cm H2O): 8 cm H20 Inspiratory Time (sec): 0.9 sec Oxygen Delivery: Invasive Lines / Tubes / Drains: CVC Triple Lumen 12/13/24 Right Internal jugular (Active) Number of days: 0 Peripheral IV 12/13/24 Anterior;Right Forearm (Active) Number of days: 0 Urethral Catheter (Active) Number of days: 0 ETT 7.5 mm (Active) Number of days: 0 Enterostomy PEG Gastric (Active) Number of days: 0 Central Line Indication: Inadequate peripheral access despite documented ultrasound attempts AND unable to place extended dwell PIV Puentes Indications: Acute urinary retention or urinary obstruction and Hourly I&Os (Critical Care ONLY) Restraints: Restraints Non-Violent Or Non-Self Destructive Dec 13, 2024 12:57 Pm Edt Restraint order already placed. Order is valid for duration of episode. Wounds: Constitutional: General Appearance []WDWN []Obese [x]Cachectic [x]Thin [x]Ill Eyes: Inspection of Pupils/Irises Pupils round and react: [x]Yes []No Sclera: []Icteric [x]Non-Icteric Inspection of Conjunctiva/Lids Conjunctiva: []Injected [x]Non-Injected Lids: [x]Intact []Lesion Present ENT/Mouth: External Inspection of ears/nose [x] Normal [] Scar/Lesion/Mass Inspection of teeth/lips/gums Dentition: [x][place] Teeth []Dentures Lips/Gums: [x]Intact []Lesion Present Mucosa: [x][place] [x]Moist []Dry Neck: External Appearance Overall Appearance: [x]Normal []Lesion/Mass/Crepitus Present Trachea midline: [x]Yes []No Thyroid [x]Normal []Enlarged []Tender []Mass []Absent Respiratory: Respiratory effort []Labored []Non-Labored [x] Mechanically-Ventilated Auscultation []Clear [x]Crackles []Wheezes []Rhonchi Cardiovascular: Auscultation Rate: [x]Regular []Irregular []Tachycardia []Bradycardia Rhythm: [x]Regular []Irregular Murmur: []Present [x]Absent Extremities Peripheral Edema: []Present [x]Absent Varicosities: []Present [x]Absent Gastrointestinal: Abdomen Palpation: [x]Soft []Firm []Tender [x]Non-Tender []Distended []Non-distended Mass: []Present [x]Absent Bowel Sounds: [x]Present []Absent Hernia: []Present []Absent Liver/Spleen: []Hepatosplenomegaly []Organomegaly Absent Musculoskeletal: Inspection of Digits and Nails Cyanosis: []Present [x]Absent Clubbing: []Present [x]Absent Ischemia: []Present [x]Absent Infection: []Present [x]Absent Extremities GERMAN Equally: Except ([]RUE [x]RLE []LUE [x]LLE) Strength/Tone: Intact and Normal ([]RUE []RLE []LUE []LLE) Skin: Inspection [x]Normal []Rash []Lesion []Ulcer Palpation [x]Warm []Cool [x]Dry []Clammy []Nodules []Induration []Skin-tightening Cap-Refill: [] <3 sec [] >3 seconds (delayed) Neurologic: GCS EYE: 3 - Opens to verbal commands GCS MOTOR: 6 - Obeys commands for movement GCS VERBAL: 1 - No response Total GCS: 7 [] Sensation grossly intact Psych: Mental Status Alert: [x]Yes [] No Oriented: []x0 []X1 []X2 []X3 - unable to assess due to sedation and intubation Mood/Affect [x]Normal []Flat []Agitated []Depressed []Anxious []Calm [x]Sedated [x]NAD [facility] Labs within last 24 hours- BMP: Recent Labs 12/16/24 0359 12/17/24 0335 12/17/24 03312/18/24 033 NA 134* -- 138 -- K 3.4* -- 4.3 -- CL 107 -- 107 -- CO2 23 -- 23 -- BUN 20 -- 19 -- CREATININE 0.50* -- 0.49* -- CALCIUM 7.9* -- 8.5* -- MG 1.8 1.8 -- 1.9 PHOS 2.3 2.6 -- 1.6* LFTs: Recent Labs 12/16/24 0359 12/17/24 0336 AST 10 12 ALT <6 <6 PROT 5.0* 5.4* ALBUMIN 1.6* 1.9* BILITOT 0.3 0.5 ALKPHOS 72 71 Glucose: Recent Labs 12/16/24 0359 12/17/24 0336 GLUCOSE 140* 103 Procal: No results for input(s): "PROCAL" in the last 72 hours. CBC: Recent Labs 12/16/24 0359 12/17/24 0335 12/17/24 0509 12/18/24 0334 12/18/24 0420 WBC 18.3* 12.6* -- 8.4 -- HGB 7.7* 7.6* 7.6 6.5* 8.5 HCT 24.2* 23.7* -- 20.5* -- PLT 375 423 -- 362 -- MCV 92.4 91.5 -- 91.1 -- RDW 15.3* 15.1* -- 15.2* -- ABGs: Recent Labs 12/16/24 0322 12/17/24 0509 12/18/24 0420 PHART 7.453* 7.500* 7.495* [id number] 36.2 34.1* 38.4 PO2ART 88.8 104.0* 103.0* [id number] 24.8 26.0* 28.9* [id number] Ventilator Ventilator Ventilator Lactic Acid: No results for input(s): "LACTATE" in the last 72 hours. INR: Recent Labs 12/16/24 0359 12/16/24 2145 12/18/24 0334 INR 1.2* 1.2* 1.1 Cardiac Injury Profile: No results for input(s): "CKTOTAL", "CKMB", "TROPONINI" in the last 72 hours. Labs in Last 3 months: Lab Results Component Value Date TSH 0.68 12/13/2024 INR 1.1 12/18/2024 Microbiology- Urine Cx: Lab Results Component Value Date URINECX No growth (<1,000 CFU/mL) 12/13/2024 Blood Cx: Lab Results Component Value Date BLOODCX No growth at 4 days 12/13/2024 Sputum Cx: Lab Results Component Value Date RESPCULT Few respiratory reba present. 12/14/2024 Gram Stain: Lab Results Component Value Date LABGRAM 12/16/2024 Many Polymorphonuclear leukocytes per low power field LABGRAM No organisms seen 12/16/2024 PNA PCR: Lab Results Component Value Date HUMANMETAPNE Not Detected 12/14/2024 COVID19: No results found for: COVID19 Legionella Ag: Lab Results Component Value Date LEGIONELLAPN Not Detected 12/14/2024 Strep Ag: No results for input(s): "STREPPNEUMO" in the last 72 hours. 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 Wean down sedation and O2 as tolerated. Daily SBT/SAT. Follow up on hogan cultures. Positive Influenza A --> Tamil flu ordered. Resp grows rare gram positive coci. Blood culture negative for 48 hours. ID is following. Continue extended IV abx of vanc and meropenem now at this time. If no new isolates, plan to de-escalate to ceftriaxone for 8 week total course. S/p bone biopsy 12/16 results pending No acute surgical intervention at this time for Ortho though pt will benefit for spinal stability support. Transition from heparin drip to eliquis today, for the treatment of K common femoral vein thrombosis Continue tube feeds Spot diuresis Lasix80 mg IV once today. Daily CXR unremarkable formal TTE for vegetation evaluation. Some diastolic dysfunction, expected with age, pulmonary artery systolic pressure not found in echo to calculate the H2PEF score. Daily labs GI Prophylaxis: Pantoprazole IV DVT Prophylaxis: Full anticoagulation Disposition: Remain in ICU Status Cosigned by Noni Levine MD at 12/18/2024 2:19 PM EDT Associated attestation - Noni Levine MD - 12/18/2024 2:19 PM EDT I have personally seen the patient and examined along with the resident. I personally obtained the lamb and relevent portions of the history and performed physical exam. I reviewed the chart including MAR, labs, and radiology and agree with the patient's plan of action as discussed with the resident. This note reflects my plan of care as I have edited the note to reflect my findings and my assessment and plan. ROS documentation was reviewed and negative unless otherwise stated in HPI. Chief Complaint: Acute Respiratory Failure with Hypoxia Additional pertinent interval history, ROS, and physical exam findings: Patient seen and examined. Intubated, sedated but awakens off sedation. Follows some commands. Tracks with eyes. Failed SBT due to tachypneas. Compliant with mechanical ventilation. 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 Weaning Propofol and Fentanyl for sedation. Re-trial SBTs daily. Failing due to tachypnea. - follow cultures continue broad spectrum antibiotics with Meropenem. ID consulted. De-escalate pending sensitivities. Will need 8 weeks antibiotics. - MRI Cervical and Thoracic spine clear from infection. - ortho spine following. May need surgical stabilization when clinically improved post antibiotics. - ESR/CRP Elevated - Restart Eliquis - diuresis with lasix for fluid goal negative 1-2L. - continue tube feeds. Code Status: DNR-CCA, ok for intubation Disposition: Remain in ICU for ongoing care Total critical care time caring for this patient with life threatening, unstable organ failure, including direct patient contact, management of life support systems, review of data including imaging and labs, discussions with other team members and physicians is 32 minutes, excluding procedures. Noni Levine MD Pulmonary and Critical Care Medicine Attending Pager #[phone] [facility] Respiratory Care Department Progress Note Spontaneous Awakening Trial Safety Screen Spontaneous Awakening Trial (SAT - RN) : Proceed with SAT - No exclusion criteria met (12/16/24944) Spontaneous Awakening Trial (SAT) Outcome: SAT pass (12/16/24944) Wean Screen SpO2>/=88%: Yes (12/17/24356) FiO2</=50%: Yes (12/17/24356) PEEP </=8cmH2O: Yes (12/17/24356) HR <140 BPM: Yes (12/17/24356) RR </= 35 breaths/min: Yes (12/17/24356) MAP >/= 65mmHg: Yes (12/17/24356) Arterial pH >7.30: Yes (12/17/24356) Safety Screen Spontaneous Breathing Trial (SBT - RT) : Proceed with SBT - No exclusion criteria met (12/17/24356) Spontaneous Breathing Trial Weaning Start Time: 1716 (12/17/241718) Weaning Tidal Volume: 208 mL (12/17/2440) Weaning Respiratory Rate: 27 (12/17/2440) Spontaneous Minute Volume (MV): 5.78 (12/17/24 0840) Total RSBI: 129 (12/17/24 0840) Weaning Tolerance: Poor (12/17/241718) Weaning Stop Time: 0840 (12/17/24 0840) Weaning Duration (min): 19 (12/17/2440) Spontaneous Breathing Trial (SBT - RT) Outcome: Respiratory rate less than 8/min - SBT Failure (pt apneic) (12/17/241718) Vent Settings Vent Mode: Assist control (12/17/241718) Mandatory Type: VC+ (12/17/241718) Resp Rate (Set): 14 (12/17/241718) Vt (Set, mL): 350 mL (12/17/241718) FiO2 (%): 40 % (12/17/241718) PEEP/CPAP (cm H2O): 8 cm H20 (12/17/241718) Inspiratory Time (sec): 1 sec (12/17/241718) Vitals MAP (mmHg): 91 (12/17/241599) Heart Rate: 95 (12/17/241718) Resp: 23 (12/17/241718) SpO2: 100 % (12/17/241718) Suctioning/Secretions Secretion Amount: Large (12/17/241599) Secretion Color: Clear (12/17/241599) Secretion Consistency: Thick (12/17/241599) ABG results Recent Labs 12/15/24 0501 12/16/24 0322 12/17/24 0509 PHART 7.475* 7.453* 7.500* [id number] 33.8* 36.2 34.1* PO2ART 120.5* 88.8 104.0* [id number] 24.3 24.8 26.0* [id number] Ventilator Ventilator Ventilator Does this patient meet criteria for termination of mechanical ventilation No - Failed SBT Name of physician notified via secure chat or in person : NA (NA if patient did not meet criteria) Comments:pt apneic Thank you for involving Respiratory in the care of this patient, Nutrition Assessment Type and Reason for Visit: Reassess Nutrition Recommendations/Plan: Resume Vital 1.5 with goal of 40 mls/hours as medically feasible. Monitor EN tolerance. Monitor nutritional status. Malnutrition Assessment: Malnutrition Status: At risk for malnutrition (Comment) Context: Acute Illness Findings of the 6 clinical characteristics of malnutrition: Energy Intake: Mild decrease in energy intake (Comment) Weight Loss: Greater than 2% over 1 week (4.79% loss of UBW since admission; unsure re: fluid changes.) Body Fat Loss: No significant body fat loss Muscle Mass Loss: No significant muscle mass loss Fluid Accumulation: Moderate to Severe Extremities, Generalized (not able to correlate with malnutrition) Education Professional Strength: Not Performed Nutrition Assessment: Pt is a 79-year-old female with PMH significant for cerebral palsy, PE/DVT on Eliquis, aspiration, esophagitis s/p PEG, recent hospitalizations for parainfluenza, hyponatremia, influenza A and Strep bacteremia who presented to [facility] ED with acute respiratory failure with concerns for pulmonary edema. Initial O2 sats noted to be the 60s, patient intubated and noted to be hypotensive thus was fluid resuscitated. She was noted to be hypertensive and had urinary retention. WBC [address] and [address] with infiltrates[address] abd/pelvis with concerns for osteomyelitis and discitis at L5-S1 as well as L common femoral vein thrombus. CTA chest demonstrated 1cm percardial effusion. Transferred to [facility] ICU for further management. Vital 1.5 ordered on 12/14/24 - reached 30 mls/hour. EN on hold this a.m. for bone marrow biopsy; on hold during RD visit. Propofol running @ 8 mls/hour during RD visit. Estimated Daily Nutrient Needs: Energy Requirements Based On: Kcal/kg Weight Used for Energy Requirements: Anderson Weight for Energy Calculation (kg): 55 kg Total Energy Requirements (kcals/day): 25-30 kcals/kg = 8927-9807 kcals/day Weight Used for Protein Requirements: Anderson Weight in Kg Used for Protein Requirements: 55 kg Estimated Total Protein (g/day): 1.1-1.3g protein/kg IBW = 61-72g protein/day Estimated Daily Total Fluid (ml/day): 1375 mls Nutrition Related Findings: Net IO Since Admission: -1,441 mL [12/17/24 1634] , Orientation Level: Unable to Assess, Cognition: Unable to follow commands, Poor attention/concentration, Best Verbal Response: None, Patient Behaviors/Mood: Calm Teeth: Missing teeth Swallow: Other (Comment) (ETT) Shmuel Scale Score: 13. Gastrointestinal (WDL): Exceptions to WDL Bowel Sounds (All Quadrants): Hypoactive Abdomen Inspection: Soft, Rounded, Gastrostomy tube Last BM Date: 12/17/24, Stool Appearance: Soft, Stool Color: Brown, Green Edema: Generalized Edema: Mild pitting, slight indentation, RUE Edema: None, LUE Edema: None, RLE Edema: Moderate pitting, indentation subsides rapidly, LLE Edema: Moderate pitting, indentation subsides rapidly Oxygen Therapy: Supplemental oxygen, O2 Delivery Method: Ventilator, Meds reviewed: Scheduled: bisacodyl, 10 mg, Rectal, BID chlorhexidine, , Topical, Daily meropenem, 2,000 mg, IntraVENous, q8h mupirocin, 1 Application, Nasal, BID oseltamivir, 75 mg, Per G Tube, BID pantoprazole, 40 mg, Oral, Nightly Or pantoprazole (ProtoNix) 40 mg in sodium chloride (PF) 0.9 % 10 mL injection, 40 mg, IntraVENous, Nightly polyethylene glycol (PEG) 3350, 17 g, Per G Tube, Daily senna-docusate sodium, 2 tablet, Per G Tube, Daily sodium chloride 0.9%, 5-40 mL, IntraCATHeter, q8h stomahesive in petrolatum, , Topical, TID vancomycin, 1,500 mg, IntraVENous, q24h Continuous: fentaNYL, 25-200 mcg/hr, Last Rate: 20 mcg/hr (12/17/24 0819) heparin, 5-30 Units/kg/hr, Last Rate: 16 Units/kg/hr (12/17/24 0731) norepinephrine, 1-100 mcg/min, Last Rate: Stopped (12/16/242044) propofol, 5-50 mcg/kg/min, Last Rate: 15 mcg/kg/min (12/17/24 1226) Current Nutrition Therapies: Enteral Nutrition Feeding Route: PEG EN Formula: Vital 1.5 Davide EN Schedule: Continuous EN Feeding Regimen: Vital 1.5 @ 40 mls/hour goal rate Water Flushes: 50 mls every 6 hours Current EN & Flush Order Provides: on hold Goal EN & Flush Order Provides: Vital 1.5 @ 40 mls/hour = 1440 kcals, 65g protein, 733 mls free H20 = 26 kcalskg + 1.1g protein/kg IBW (55 kgs). Anthropometric Measures: Height: 162.6 cm (5' 4.02") Current Body Weight: 65.4 kg (144 lb 2.9 oz) Weight Source: Bed Scale Admission Body Weight: 68 kg (149 lb 14.6 oz) Anderson Body Weight (lbs) (Calculated): 120 lbs Anderson Body Weight (Kg) (Calculated): 55 kg % Anderson Body Weight (Calculated): 120.2 % BMI (kg/m2) (Calculated): 24.7 BMI Categories: Overweight (BMI 25.0-29.9) Wt Readings from Last 10 Encounters: 12/15/24 65.4 kg (144 lb 2.9 oz) TPN LABS: Recent Labs 12/15/24 0348 12/15/24 1614 12/16/24 0359 12/17/24 0335 12/17/24 0336 NA 138 -- 134* -- 138 K 3.2* -- 3.4* -- 4.3 CL 109* -- 107 -- 107 CO2 22* -- 23 -- 23 BUN 22 -- 20 -- 19 CREATININE 0.55* -- 0.50* -- 0.49* GLUCOSE 141* -- 140* -- 103 CALCIUM 7.8* -- 7.9* -- 8.5* CAION 3.90* 3.60* 3.90* 4.30 -- MG 1.8 -- 1.8 1.8 -- PHOS 2.9 -- 2.3 2.6 -- Recent Labs 12/15/24 0348 12/16/24 0359 12/17/24 0336 AST 16 10 12 ALT <6 <6 <6 BILITOT 0.4 0.3 0.5 ALKPHOS 72 72 71 Nutrition Diagnosis: Inadequate oral intake related to impaired respiratory function as evidenced by NPO or clear liquid status due to medical condition, intubation, nutrition support - enteral nutrition (PEG) Nutrition Interventions: Nutrition Education/Counseling: No recommendation at this time Coordination of Nutrition Care: Continue to monitor while inpatient Goals: Previous Goal Met: (EN on hold) Goals: Tolerate nutrition support at goal rate, by next RD assessment Nutrition Monitoring and Evaluation: Food/Nutrient Intake Outcomes: Enteral Nutrition Intake/Tolerance Physical Signs/Symptoms Outcomes: Biochemical Data, GI Status, Skin, Weight, Hemodynamic Status, Nutrition Focused Physical Findings, Fluid Status or Edema Discharge Planning: Too soon to determine Vivian Gordon RD,LD,[facility] Contact: *[phone] or Clavister Chat Images from the original note were not included. [facility] - Infectious Diseases Attending Progress Note Subjective: Following for discitis/vertebral OM. Records from pt's admission at [facility] in September - October 2024 reviewed. Briefly, pt presented to [facility] with chief complaint of diagnosed with S alactollyticus bacteremia and parainfluenza URI. Pt's chief complaint was worsening back pain and difficulty walking. Per the notes, pt's blood cultures cleared on 11/02. Pt was seen by ID who recommended a colonoscopy; path showed fragments of colonic mucosa with focal mild glandular distortion. 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 Negative for acute inflammation. CT a/p showed no evidence of colitis or abscess. Pt had an MRI without contrast that showed multilevel degenerative changes through the TL spine, but most severe L5-S1. MRI was done with contrast that showed moderate to severe spinal stenosis, degenerative joint changes, severe bilateral foraminal narrowing. Notes mention consulted "back surgery," but no consults were placed. Pt was treated with ceftriaxone --> cefdinir 300mg po BID x 1 week on discharge. Pt remains intubated, not arousable. No family at the bedside. Chart, vitals, labs reviewed. Pt afebrile. Objective: Vitals: Patient Vitals for the past 24 hrs: BP Temp Temp src Pulse Resp SpO2 12/17/24 1549 -- -- -- 98 19 97 % 12/17/24 1500 119/62 -- -- 98 23 97 % 12/17/24 1400 (!) 87/61 -- -- 94 19 97 % 12/17/24 1300 (!) 100/47 -- -- 84 14 98 % 12/17/24 1200 112/57 37.2 C (98.9 F) -- 87 17 99 % 12/17/24 1147 -- -- -- 83 14 99 % 12/17/24 1100 119/62 -- -- (!) 124 14 99 % 12/17/24 1000 118/59 -- -- 92 15 97 % 12/17/24 0900 112/60 -- -- (!) 127 15 98 % 12/17/24 0840 -- -- -- (!) 125 14 100 % 12/17/24 0821 -- -- -- 87 15 99 % 12/17/24 0817 -- -- -- 87 14 100 % 12/17/24 0800 120/62 36.6 C (97.9 F) Temporal 97 17 98 % 12/17/24 0600 98/53 -- -- 86 14 98 % 12/17/24 0500 108/70 -- -- 98 15 98 % 12/17/24 0400 113/69 -- -- (!) 129 16 99 % 12/17/24 0357 -- -- -- (!) 130 17 99 % 12/17/24 0330 114/88 36.1 C (96.9 F) -- (!) 134 16 100 % 12/17/24 0300 121/68 -- -- 97 18 99 % 12/17/24 0230 112/59 -- -- 100 15 97 % 12/17/24 0200 135/65 -- -- 100 15 96 % 12/17/24 0130 -- -- -- 100 21 97 % 12/17/24 0100 -- -- -- 95 19 97 % 12/17/24 0050 -- -- -- (!) 125 18 100 % 12/17/24 0000 129/71 -- -- 90 -- 100 % 12/16/24 2315 119/67 -- -- 90 19 100 % 12/16/24 2300 112/63 -- -- (!) 122 18 98 % 12/16/24 2253 -- -- -- (!) 123 20 99 % 12/16/24 2245 120/67 -- -- (!) 124 16 98 % 12/16/24 2230 102/56 -- -- 87 20 99 % 12/16/24 2215 102/57 -- -- 85 17 99 % 12/16/24 2200 110/59 -- -- 87 15 100 % 12/16/24 2145 105/56 -- -- 89 19 100 % 12/16/24 2130 109/56 -- -- 89 17 100 % 12/16/24 2115 99/54 -- -- 87 24 99 % 12/16/24 2100 104/53 -- -- 88 18 99 % 12/16/245 109/56 -- -- 88 18 99 % 12/16/242029 111/58 -- -- 90 19 -- 12/16/242014 118/60 36.2 C (97.1 F) Temporal 95 17 100 % 12/16/242000 -- -- -- 95 18 100 % 12/16/241999 129/64 -- -- 90 20 -- 12/16/24 194 129/58 -- -- 90 20 99 % 12/16/24 1930 133/58 -- -- 90 21 -- 12/16/24 1900 125/57 -- -- 89 24 -- 12/16/24 1845 113/56 -- -- 90 (!) 26 100 % 12/16/24 1830 119/75 -- -- 96 22 100 % 12/16/24 1815 122/86 -- -- 98 18 100 % 12/16/24 1800 -- 36.4 C (97.5 F) Temporal 98 (!) 31 95 % 12/16/24 1745 -- -- -- 95 18 100 % 12/16/24 1730 134/57 -- -- 89 19 100 % 12/16/24 1716 -- -- -- 89 21 100 % 12/16/24 1715 136/59 -- -- -- -- -- 12/16/24 1700 129/85 -- -- 88 (!) 27 100 % 12/16/24 1645 134/64 -- -- 82 20 100 % 12/16/24 1630 -- -- -- 84 16 100 % 12/16/24 1600 (!) 97/48 -- -- 87 16 100 % Physical Exam Vitals and nursing note reviewed. Constitutional: General: She is not in acute distress. Appearance: She is ill-appearing. She is not toxic-appearing or diaphoretic. Comments: Not arousable, sedated, intubated HENT: Head: Normocephalic and atraumatic. Right Ear: External ear normal. Left Ear: External ear normal. Nose: Nose normal. No rhinorrhea. Mouth/Throat: Comments: +ETT Eyes: General: Right eye: No discharge. Left eye: No discharge. Cardiovascular: Rate and Rhythm: Regular rhythm. Tachycardia present. Heart sounds: Murmur heard. Pulmonary: Effort: No respiratory distress. Breath sounds: Rales present. No rhonchi. Abdominal: General: There is distension. Palpations: Abdomen is soft. Tenderness: There is no abdominal tenderness. Comments: PEG site ok Musculoskeletal: Right lower leg: Edema present. Left lower leg: Edema present. Skin: General: Skin is warm and dry. Findings: No rash. Neurological: Comments: Sedated, not arousable, not interactive, not following commands Psychiatric: Comments: Unable to assess Labs: Lab Results Component Value Date/Time NA 138 12/17/2024 0336 K 4.3 12/17/2024 0336 CL 107 12/17/2024 0336 CO2 23 12/17/2024 0336 BUN 19 12/17/2024 0336 CREATININE 0.49 (L) 12/17/2024 0336 GLUCOSE 103 12/17/2024 0336 CALCIUM 8.5 (L) 12/17/2024 0336 PROT 5.4 (L) 12/17/2024 0336 BILITOT 0.5 12/17/2024 0336 ALKPHOS 71 12/17/2024 0336 AST 12 12/17/2024 0336 ALT <6 12/17/2024 0336 PROCAL 4.24 (H) 12/13/2024 1343 Lab Results Component Value Date/Time WBC 12.6 (H) 12/17/2024 0335 HGB 7.6 12/17/2024 0509 HGB 7.6 (L) 12/17/2024 0335 HCT 23.7 (L) 12/17/2024 0335 PLT 423 12/17/2024 0335 LYMPHOPCT 10 (L) 12/17/2024 0335 MONOPCT 7 12/17/2024 0335 BASOPCT 2 12/17/2024 0335 NEUTROABS 17.4 (H) 12/15/2024 0348 12/16 bone biopsy path pending Micro: 12/16 biopsy bone stain negative, culture NGTD 12/14 pneumonia PCR flu A 12/14 sputum reba 12/14 A baumannii PCR in process 12/14 C auris PCR in process 12/13 RPP flu A 12/13 BC 2/2 NGTD 12/13 MRSA PCR negative 12/13 Legionella, Pneumococcus urine antigens negative 12/13 urine negative [facility] 12/13 BC 09/30 NGTD 3/16 urine negative 12/11 urine negative 12/11 BC 2/2 negative 12/04 urine negative 12/04 BC 2/2 negative 10/30/24 blood cultures with S alactolyticus S amp, benzylpenicillin <=0.06, cefotaxime, ceftriaxone <=0.12, erythromycin, linezolid <=2, vanc 0.5. Repeat blood cultures on 11/02/24 finalized negative. Lines: PIV CVC Radiography/Echo/Other: 12/17 CXR Consolidation in the left lower lobe. Reticular opacities throughout the lungs unchanged 12/17 MRI C/T spine Cervical spine: No evidence of osteomyelitis discitis. No peripherally enhancing fluid collection to suggest an epidural or soft tissue abscess. Multilevel spondylosis most pronounced at C4-C5 where there is severe canal stenosis without cord compression. No underlying cord signal change. There is also moderate to severe canal stenosis at C3-C4 with cord flattening without underlying signal change. Multilevel variable foraminal stenosis as outlined, up to severe. Thoracic spine: No evidence of osteomyelitis discitis. No peripherally enhancing fluid collection to suggest an epidural or soft tissue abscess. Findings suggesting recent (acute to subacute) Schmorl's nodes at the inferior endplates of T10 and T11. 12/16 CXR There is improved aeration. Mild basilar infiltrates remain left greater than right. Retrocardiac density also present. No sizable pneumothorax. Cardiac silhouette is within normal limits. Support devices are similar. 12/16 CT c spine 1. Moderate degenerative changes in the mid cervical spine. 2. Canal stenosis is most pronounced at C3-4 and C4-5. There is a mild impression on the ventral spinal cord. 3. No direct CT evidence of discitis/osteomyelitis on this unenhanced scan. 4. Mild inflammatory changes in the left mastoid air cells. This is nonspecific but may indicate mastoiditis. 5. There is a significant amount of cerumen/debris in the left external auditory canal. Please correlate with direct visualization. 12/15 MRI lumbar spine Marrow signal changes of L5-S1 vertebral bodies with fluid signal of the disc are consistent with osteomyelitis discitis. No peripherally enhancing fluid collection to suggest an epidural or paraspinal abscess. Small Schmorl's node at the inferior endplate of T11 with mild edema and enhancement suggest acute to subacute Schmorl's node formation. Multilevel spondylosis as outlined. No high-grade canal stenosis. Multilevel foraminal stenoses, most pronounced at L5-S1. Anatomic Lumbar Variant: None. L4-5 is considered the level of the iliac crest and assume there are 5 lumbar-type vertebrae. 12/14 TTE Left Ventricle: Left ventricle is smaller than normal. Normal wall thickness. Normal left ventricular systolic function. EF by 2D Simpsons Biplane is 67%. Normal wall motion. Grade I diastolic dysfunction with normal LAP. Right Ventricle: Right ventricle size is normal. Reduced systolic function. TAPSE is abnormal. Pericardium: Small (<1 cm) pericardial effusion present. Pericardial effusion is echolucent. Features indicating an absence of cardiac tamponade are present. No significant valvular abnormalities. 12/13 CT head 1. No evidence of an intracranial mass, edema or parenchymal flexion. If there is persistent concern for an abnormality not seen by CT, consider MRI and/or CSF analysis, if appropriate. 2. Cerebral volume loss. White matter changes likely due to microangiopathic disease. 3. Nonspecific left mastoid effusion. An infectious process cannot be excluded. 12/13 CT c/a/p 1. No evidence of an intracranial mass, edema or parenchymal flexion. If there is persistent concern for an abnormality not seen by CT, consider MRI and/or CSF analysis, if appropriate. 2. Cerebral volume loss. White matter changes likely due to microangiopathic disease. 3. Nonspecific left mastoid effusion. An infectious process cannot be excluded. Antimicrobials,Start/End Dates: meropenem Vancomycin oseltamivir Impression: 1) Flu A on oseltamivir 2) L5-S1 discitis/VO, most likely due to hematogenous seeding. Blood cultures remain NGTD, but pt had documented S alactolyticus bacteremia in September when she presented to [facility] with c/o back pain and difficulty walking. This is likely the same process, undertreated VO/discitis 3) Septic shock 4) Poor dentition 5) VDRF Plan: - continue meropenem - finish 5 days oseltamivir 12/18 - continue vancomycin, pharmacy to dose - follow up biopsy cultures, histopath - if no new isolates, will de-escalate to ceftriaxone for 8 week total course - following Rakel Hawthorne MD Total time of 50 minutes on this day of encounter spent on, but not limited to review of tests, medical records , review of external medical records, paper and electronic, counseling and education (patient, family member, caregiver), ordering medications, tests, and procedures, communication with other health care professions, and independent interpretation of tests. Family Communication Number Called: [phone] Name of Designated Family Guidance Consultant: Key Dickinson Relationship: niece Phone Call Outcome: I spoke with the individual listed above. Family Guidance Consultant Updated on the Following: Called and updated the family about plans and current progress. ICU Progress Note Name: Claritza Burton : 1945(79 y.o.) Date: 12/17/24 Team: MICU Attending: Dr. Levine Subjective: Hospital Summary: 79 yo F PMH cerebral palsy, PE/DVT on Eliquis, aspiration, esophagitis s/p PEG, recent hospitalizations for parainfluenza, hyponatremia, influenza A and Strep bacteremia who presented to [facility] ED with acute respiratory failure with concerns for pulmonary edema. Initial O2 sats noted to be the 60s, patient intubated and noted to be hypotensive thus was fluid resuscitated. She was noted to be hypertensive and had urinary retention. WBC [address] with infiltrates. CT abd/pelvis with concerns for osteomyelitis and discitis at L5-S1 as well as L common femoral vein thrombus. CTA chest demonstrated 1cm percardial effusion. Transferred to [facility] ICU for further management. Interval Events: No acute events overnight. Patient underwent MRI overnight for C spine and T spine that was unremarkable. Pt underwent CT-guided bone biopsy, C-spine and T-spine MRI. This morning, patient was awaken to verbal commands and withdraw from pain but does not follow commands. She still remains intubated and mildly sedated on propofol and fentanyl. She is off Levophed. Pt did not pass SBT today Scheduled Meds:bisacodyl, 10 mg, Rectal, BID chlorhexidine, , Topical, Daily meropenem, 2,000 mg, IntraVENous, q8h mupirocin, 1 Application, Nasal, BID oseltamivir, 75 mg, Per G Tube, BID pantoprazole, 40 mg, Oral, Nightly Or pantoprazole (ProtoNix) 40 mg in sodium chloride (PF) 0.9 % 10 mL injection, 40 mg, IntraVENous, Nightly polyethylene glycol (PEG) 3350, 17 g, Per G Tube, Daily senna-docusate sodium, 2 tablet, Per G Tube, Daily sodium chloride 0.9%, 5-40 mL, IntraCATHeter, q8h stomahesive in petrolatum, , Topical, TID vancomycin, 1,500 mg, IntraVENous, q24h Continuous Infusions:fentaNYL, 25-200 mcg/hr, Last Rate: 20 mcg/hr (12/17/24 0819) heparin, 5-30 Units/kg/hr, Last Rate: 16 Units/kg/hr (12/17/24 0731) norepinephrine, 1-100 mcg/min, Last Rate: Stopped (12/16/242044) propofol, 5-50 mcg/kg/min, Last Rate: 15 mcg/kg/min (12/17/24 1226) Objective: Last Vitals: BP MAP (!) 87/61 (12/17/24 1400) 65 (12/17/24 1400) Arterial BP MAP Temp 37.2 C (98.9 F) (12/17/24 1200) Pulse 94 (12/17/24 1400) Resp 19 (12/17/24 1400) SpO2 97 % (12/17/24 1400) Weight 144 lb 2.9 oz (65.4 kg) (12/15/24 0512) BMI Body mass index is 24.74 kg/m . I/O: 12/16 0700 - 12/17 0659 In: 1647 [I.V.:1447] Out: 2565 [Urine:2565] Ventilator: Ventilation Day(s): 1 Resp Rate (Set): 14 Vt (Set, mL): 350 mL FiO2 (%): 40 % PEEP/CPAP (cm H2O): 8 cm H20 Inspiratory Time (sec): 1 sec Oxygen Delivery: Invasive Lines / Tubes / Drains: CVC Triple Lumen 12/13/24 Right Internal jugular (Active) Number of days: 0 Peripheral IV 12/13/24 Anterior;Right Forearm (Active) Number of days: 0 Urethral Catheter (Active) Number of days: 0 ETT 7.5 mm (Active) Number of days: 0 Enterostomy PEG Gastric (Active) Number of days: 0 Central Line Indication: Inadequate peripheral access despite documented ultrasound attempts AND unable to place extended dwell PIV Puentes Indications: Acute urinary retention or urinary obstruction and Hourly I&Os (Critical Care ONLY) Restraints: Restraints Non-Violent Or Non-Self Destructive Dec 13, 2024 12:57 Pm Edt Restraint order already placed. Order is valid for duration of episode. Wounds: Constitutional: General Appearance []WDWN []Obese [x]Cachectic [x]Thin [x]Ill Eyes: Inspection of Pupils/Irises Pupils round and react: [x]Yes []No Sclera: []Icteric [x]Non-Icteric Inspection of Conjunctiva/Lids Conjunctiva: []Injected [x]Non-Injected Lids: [x]Intact []Lesion Present ENT/Mouth: External Inspection of ears/nose [x] Normal [] Scar/Lesion/Mass Inspection of teeth/lips/gums Dentition: [x][place] Teeth []Dentures Lips/Gums: [x]Intact []Lesion Present Mucosa: [x][place] [x]Moist []Dry Neck: External Appearance Overall Appearance: [x]Normal []Lesion/Mass/Crepitus Present Trachea midline: [x]Yes []No Thyroid [x]Normal []Enlarged []Tender []Mass []Absent Respiratory: Respiratory effort []Labored []Non-Labored [x] Mechanically-Ventilated Auscultation []Clear [x]Crackles []Wheezes []Rhonchi Cardiovascular: Auscultation Rate: [x]Regular []Irregular []Tachycardia []Bradycardia Rhythm: [x]Regular []Irregular Murmur: []Present [x]Absent Extremities Peripheral Edema: []Present [x]Absent Varicosities: []Present [x]Absent Gastrointestinal: Abdomen Palpation: [x]Soft []Firm []Tender [x]Non-Tender []Distended []Non-distended Mass: []Present [x]Absent Bowel Sounds: [x]Present []Absent Hernia: []Present []Absent Liver/Spleen: []Hepatosplenomegaly []Organomegaly Absent Musculoskeletal: Inspection of Digits and Nails Cyanosis: []Present [x]Absent Clubbing: []Present [x]Absent Ischemia: []Present [x]Absent Infection: []Present [x]Absent Extremities GERMAN Equally: Except ([]RUE [x]RLE []LUE [x]LLE) Strength/Tone: Intact and Normal ([]RUE []RLE []LUE []LLE) Skin: Inspection [x]Normal []Rash []Lesion []Ulcer Palpation [x]Warm []Cool [x]Dry []Clammy []Nodules []Induration []Skin-tightening Cap-Refill: [] <3 sec [] >3 seconds (delayed) Neurologic: GCS EYE: 3 - Opens to verbal commands GCS MOTOR: 6 - Obeys commands for movement GCS VERBAL: 1 - No response Total GCS: 7 [] Sensation grossly intact Psych: Mental Status Alert: [x]Yes [] No Oriented: []x0 []X1 []X2 []X3 - unable to assess due to sedation and intubation Mood/Affect [x]Normal []Flat []Agitated []Depressed []Anxious []Calm [x]Sedated [x]NAD [facility] Labs within last 24 hours- BMP: Recent Labs 12/15/2434712/16/2435812/17/24 03312/17/24 0336 NA 138 134* -- 138 K 3.2* 3.4* -- 4.3 CL 109* 107 -- 107 CO2 22* 23 -- 23 BUN 22 20 -- 19 CREATININE 0.55* 0.50* -- 0.49* CALCIUM 7.8* 7.9* -- 8.5* MG 1.8 1.8 1.8 -- PHOS 2.9 2.3 2.6 -- LFTs: Recent Labs 12/15/2434712/16/24 03512/17/24 0336 AST 16 10 12 ALT <6 <6 <6 PROT 4.8* 5.0* 5.4* ALBUMIN 1.7* 1.6* 1.9* BILITOT 0.4 0.3 0.5 ALKPHOS 72 72 71 Glucose: Recent Labs 12/15/24 0348 12/16/24 0359 12/17/24 0336 GLUCOSE 141* 140* 103 Procal: No results for input(s): "PROCAL" in the last 72 hours. CBC: Recent Labs 12/15/24 0348 12/15/24 0501 12/16/24 0359 12/17/24 0335 12/17/24 0509 WBC 21.9* -- 18.3* 12.6* -- HGB 7.5* < > 7.7* 7.6* 7.6 HCT 22.8* -- 24.2* 23.7* -- PLT 345 -- 375 423 -- MCV 90.8 -- 92.4 91.5 -- RDW 15.4* -- 15.3* 15.1* -- < > = values in this interval not displayed. ABGs: Recent Labs 12/15/24 0501 12/16/24 0322 12/17/24 0509 PHART 7.475* 7.453* 7.500* [id number] 33.8* 36.2 34.1* PO2ART 120.5* 88.8 104.0* [id number] 24.3 24.8 26.0* [id number] Ventilator Ventilator Ventilator Lactic Acid: No results for input(s): "LACTATE" in the last 72 hours. INR: Recent Labs 12/15/24 0348 12/16/24 0359 12/16/24 2145 INR 1.2* 1.2* 1.2* Cardiac Injury Profile: No results for input(s): "CKTOTAL", "CKMB", "TROPONINI" in the last 72 hours. Labs in Last 3 months: Lab Results Component Value Date TSH 0.68 12/13/2024 INR 1.2 (H) 12/16/2024 Microbiology- Urine Cx: Lab Results Component Value Date URINECX No growth (<1,000 CFU/mL) 12/13/2024 Blood Cx: Lab Results Component Value Date BLOODCX No growth at 72 hours 12/13/2024 Sputum Cx: Lab Results Component Value Date RESPCULT Few respiratory reba present. 12/14/2024 Gram Stain: Lab Results Component Value Date LABGRAM 12/16/2024 Many Polymorphonuclear leukocytes per low power field LABGRAM No organisms seen 12/16/2024 PNA PCR: Lab Results Component Value Date HUMANMETAPNE Not Detected 12/14/2024 COVID19: No results found for: COVID19 Legionella Ag: Lab Results Component Value Date LEGIONELLAPN Not Detected 12/14/2024 Strep Ag: No results for input(s): "STREPPNEUMO" in the last 72 hours. 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 Wean down sedation and O2 as tolerated. Daily SBT/SAT. No acute surgical intervention at this time for Ortho though pt will benefit for spinal stability support. Follow up on hogan cultures. Positive Influenza A --> Tamil flu ordered. Resp grows rare gram positive coci. Blood culture negative for 48 hours. ID is following. Continue extended IV abx of meropenem now at this time Awaiting for CT-guided lung biopsy and pending MRI scan today. Continue heparin gtt for DVT. Holding eliquis. Temporarily holding heparin drip for procedure. Hold tube feed today via PEG since possibility of extubation. Spot diuresis Lasix 40mg IV again today with goal 1-2L. Daily CXR unremarkable formal TTE for vegetation evaluation.. Keep NPO. Daily labs GI Prophylaxis: Pantoprazole IV DVT Prophylaxis: Full anticoagulation Disposition: Remain in ICU Status Cosigned by Noni Levine MD at 12/17/2024 9:52 PM EDT Associated attestation - Noni Levine MD - 12/17/2024 9:52 PM EDT I have personally seen the patient and examined along with the resident. I personally obtained the lamb and relevent portions of the history and performed physical exam. I reviewed the chart including MAR, labs, and radiology and agree with the patient's plan of action as discussed with the resident. This note reflects my plan of care as I have edited the note to reflect my findings and my assessment and plan. ROS documentation was reviewed and negative unless otherwise stated in HPI. Chief Complaint: Acute Respiratory Failure with Hypoxia Additional pertinent interval history, ROS, and physical exam findings: Patient seen and examined. Intubated opens eyes but does not follow commands. Failed multiple attempts at SBT due to apneas and poor lung volumes. Otherwise compliant with mechanical ventilation on assist control mode. 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 ID consulted. De-escalate pending sensitivities. Will need 8 weeks antibiotics. - MRI Cervical and Thoracic spine clear from infection. - ortho spine following. May need surgical stabilization when clinically improved post antibiotics. - ESR/CRP Elevated - hold eliquis, start heparin gtt. Restart Eliquis tomorrow. - diuresis with lasix for fluid goal negative 1-2L. - continue tube feeds. Code Status: DNR-CCA, ok for intubation Disposition: Remain in ICU for ongoing care Total critical care time caring for this patient with life threatening, unstable organ failure, including direct patient contact, management of life support systems, review of data including imaging and labs, discussions with other team members and physicians is 34 minutes, excluding procedures. Noni Levine MD Pulmonary and Critical Care Medicine Attending Pager #[phone] [facility] Respiratory Care Department Progress Note Spontaneous Awakening Trial Safety Screen Spontaneous Awakening Trial (SAT - RN) : Proceed with SAT - No exclusion criteria met (12/16/24944) Spontaneous Awakening Trial (SAT) Outcome: SAT pass (12/16/24944) Wean Screen SpO2>/=88%: Yes (12/17/24356) FiO2</=50%: Yes (12/17/24356) PEEP </=8cmH2O: Yes (12/17/24356) HR <140 BPM: Yes (12/17/24356) RR </= 35 breaths/min: Yes (12/17/24356) MAP >/= 65mmHg: Yes (12/17/24356) Arterial pH >7.30: Yes (12/17/24356) Safety Screen Spontaneous Breathing Trial (SBT - RT) : Proceed with SBT - No exclusion criteria met (12/17/24356) Spontaneous Breathing Trial Weaning Start Time: 820 (12/17/24839) Weaning Tidal Volume: 208 mL (12/17/24839) Weaning Respiratory Rate: 27 (12/17/24839) Spontaneous Minute Volume (MV): 5.78 (12/17/24839) Total RSBI: 129 (12/17/24839) Weaning Tolerance: Fair (12/17/24839) Weaning Stop Time: 08 (12/17/24839) Weaning Duration (min): 19 (12/17/24839) Spontaneous Breathing Trial (SBT - RT) Outcome: RSBI>105 - SBT failure (pt also going into apnea ventilation) (12/17/24839) Vent Settings Vent Mode: Assist control (12/17/24839) Mandatory Type: VC+ (12/17/24839) Resp Rate (Set): 14 (12/17/24839) Vt (Set, mL): 350 mL (12/17/24839) FiO2 (%): 40 % (12/17/24839) PEEP/CPAP (cm H2O): 8 cm H20 (12/17/24839) Inspiratory Time (sec): 1 sec (12/17/24839) Vitals MAP (mmHg): 67 (12/17/2400) Heart Rate: (!) 125 (12/17/24839) Resp: 14 (12/17/24839) SpO2: 100 % (12/17/24839) Suctioning/Secretions Secretion Amount: Small (12/17/24 08) Secretion Color: White (12/17/24 08) Secretion Consistency: Thin (12/17/24816) ABG results Recent Labs 12/15/24 0501 12/16/24 0322 12/17/24 0509 PHART 7.475* 7.453* 7.500* [id number] 33.8* 36.2 34.1* PO2ART 120.5* 88.8 104.0* [id number] 24.3 24.8 26.0* [id number] Ventilator Ventilator Ventilator Does this patient meet criteria for termination of mechanical ventilation No - Failed SBT Name of physician notified via secure chat or in person : NA (NA if patient did not meet criteria) Comments: Thank you for involving [facility] in the care of this patient, Pharmacy to Dose Vancomycin - Progress Note Lab Results Component Value Date CREATININE 0.49 (L) 12/17/2024 BUN 19 12/17/2024 WBC 12.6 (H) 12/17/2024 VANCOTROUGH 29.2 12/15/2024 Doses, serum creatinine, and vancomycin levels interfaced automatically to [employer] and data has been analyzed and interpreted. Infectious Diagnosis: blood/bone/joint Est CrCl: 83 mL/min (Cockcroft-Gault) Assessment: Current regimen vancomycin 1500 mg every 24 hours Predicted AUC = 520 mg/L*hr (goal 400-600 mg/L*hr) PAUC = 94% (probability that AUC is >400 mg/L*hr) Pconc = 5% (probability that Ctrough is above 20 mcg/mL (toxicity)) Plan: Is the current dose therapeutic? [x] Yes - obtain next level on 12/21 unless predicted AUC is sub-/supra-therapeutic or change in serum creatinine. Trend serum creatinine. Trend AUC using Bayesian Modeling. Orders placed. DATE: 12/17/24 TIME: 8:17 AM Zachary Alvarado RPh Clinical Pharmacist Available via Secure Chat MRI cervical and thoracic spine reviewed: There is normal cervical lordosis with no evidence of listhesis. There is moderate central stenosis at C2-3 and C3-4 which appears degenerative in nature. There is some increased signal about the endplates of C2-3 and C3-4, but otherwise bone marrow signal is unremarkable. No prevertebral soft tissue swelling. No epidural hematoma. No signal change in the posterior elements. The cervical spinal cord is normal in size and signal characteristics. Visualized portion of the posterior fossa is unremarkable. In the visualized upper thoracic spine there is no disc herniation or central canal narrowing. Normal thoracic kyphosis is maintained with no kyphotic deformities or listhesis. Intervertebral disc height is maintained at all levels. The central canal is patent. There are no enhancing masses or fluid collections. No epidural mass or fluid collections. Paraspinal soft tissues are unremarkable. There is no indication for any acute surgical intervention. Ortho spine will follow for formal spine exam when patient is able to participate. Bryan Tomlinson MD PGY-3 Orthopaedic Surgery 12/17/2024 6:27 AM Images from the original note were not included. Orthopedic Progress Note Name: Claritza Burton Date:12/16/2024 Attending:Noni Levine MD Subjective CHIEF COMPLAINT: L5-S1 osteomyelitis/discitis HPI: Orthopedic surgery to bedside to attempt spine exam. Patient is unable to follow commands appropriately during exam, is intubated and sedated. Discussed patient with RN Objective PAST MEDICAL HISTORY Patient Active Problem List Diagnosis Essential hypertension Heart palpitations Other cerebral palsy (HCC) History of bladder cancer Age-related osteoporosis without current pathological fracture Acute hypoxemic respiratory failure (HCC) PAST SURGICAL HISTORY Past Surgical History: Procedure Laterality Date BLADDER SURGERY 2009 EYE SURGERY cataract HIP FRACTURE SURGERY Left 2000 HYSTERECTOMY ORTHOPEDIC SURGERY TONSILLECTOMY (HISTORICAL) HOME MEDICATIONS Prior to Admission medications Not on File CURRENT HOSPITAL MEDICATIONS Current Facility-Administered Medications: bisacodyl (Dulcolax) suppository 10 mg, 10 mg, Rectal, BID, Romaine Larkin DO, 10 mg at 12/16/24 0619 chlorhexidine (Hibiclens) 4 % solution, , Topical, Daily, Keely Vergara, DO, Given at 12/15/24 2344 fentaNYL (Sublimaze) 1000 mcg in sodium chloride 0.9 % 100 mL 10 mcg/mL infusion, 25-200 mcg/hr, IntraVENous, Continuous, Keely Arias Vo, DO, Last Rate: 2.5 mL/hr at 12/16/24 0727, 25 mcg/hr at 12/16/24 0727 fentaNYL (Sublimaze) injection 25 mcg, 25 mcg, IntraVENous, q2h PRN, Keely Arias Vo, DO fentaNYL (Sublimaze) injection 50 mcg, 50 mcg, IntraVENous, q2h PRN, Keely Arias Vo, DO flumazenil (Romazicon) injection 0.2 mg, 0.2 mg, IntraVENous, Once PRN, Keely Vergara, DO [Held by provider] heparin 25,000 units in dextrose 5% 250mL infusion (premix), 5-30 Units/kg/hr, IntraVENous, Continuous, Keely Vergara, DO, Stopped at 12/16/24 0739 heparin injection 2,680 Units, 40 Units/kg, IntraVENous, PRN, Keely Vergara, DO, 2,680 Units at 12/15/24 1006 heparin injection 5,360 Units, 80 Units/kg, IntraVENous, PRN, Keely Arias Vo, DO meropenem (Merrem) 2,000 mg in sodium chloride 0.9 % 100 mL IVPB, 2,000 mg, IntraVENous, q8h, Rakel Hawthorne MD, Last Rate: 33.3 mL/hr at 12/16/24 1159, 2,000 mg at 12/16/24 1159 midazolam (Versed) injection 1 mg, 1 mg, IntraVENous, q2h PRN, Keely Arias Vo, DO midazolam (Versed) injection 2 mg, 2 mg, IntraVENous, q2h PRN, Keely Arias Vo, DO mupirocin (Bactroban) 2 % ointment 1 Application, 1 Application, Nasal, BID, Keely Vergara, DO, 1 Application at 12/16/24 0811 naloxone (Narcan) injection 0.4 mg, 0.4 mg, IntraVENous, Once PRN, Keely Vergara, DO norepinephrine (Levophed) infusion 16 mg in 0.9 % sodium chloride 250 mL (Lpg-Vmdhds-Aajbp) (premix), 1-100 mcg/min, IntraVENous, Continuous, Jenaro Alamo, DO, Stopped at 12/16/24 0405 ondansetron ODT (Zofran-ODT) disintegrating tablet 4 mg, 4 mg, Oral, q8h PRN OR ondansetron (Zofran) injection 4 mg, 4 mg, IntraVENous, q6h PRN, Keely Vergara, DO oseltamivir (Tamiflu) capsule 75 mg, 75 mg, Per G Tube, BID, Keely Arias , DO pantoprazole (ProtoNix) EC tablet 40 mg, 40 mg, Oral, Nightly OR pantoprazole (ProtoNix) 40 mg in sodium chloride (PF) 0.9 % 10 mL injection, 40 mg, IntraVENous, Nightly, Keely Vegrara, DO, 40 mg at 12/15/24 2107 polyethylene glycol (PEG) 3350 (Miralax) packet 17 g, 17 g, Per G Tube, Daily, Keely Vergara, DO, 17 g at 12/16/24 0813 propofol (Diprivan) infusion, 5-50 mcg/kg/min, IntraVENous, Continuous, Keely Vergara, DO, Last Rate: 8.04 mL/hr at 12/16/24 0500, 20 mcg/kg/min at 12/16/24 0500 senna-docusate sodium (Senokot-S) 8.6-50 MG tablet 2 tablet, 2 tablet, Per G Tube, Daily, Keely Vergara, DO, 2 tablet at 12/16/24 0813 sodium chloride 0.9 % infusion, 5-250 mL/hr, IntraVENous, PRN, Keely Kelsey Juana Vo, DO sodium chloride 0.9% (NS) flush 5-40 mL, 5-40 mL, IntraCATHeter, q8h, Keely Kelsey Juana Vo, DO, 10 mL at 12/16/24 0545 sodium chloride 0.9% (NS) flush 5-40 mL, 5-40 mL, IntraVENous, PRN, Keely Kelsey Juana Vo, DO vancomycin IVPB 1500 mg in 250 mL NS (premix), 1,500 mg, IntraVENous, q24h, Keely Kelsey Juana Vo, DO, Stopped at 12/16/24 0557 ALLERGIES: Ativan [lorazepam], Augmentin [amoxicillin-pot clavulanate], Erythromycin, and Symmetrel [amantadine] SOCIAL HISTORY: Social History Socioeconomic History Marital status: Single Spouse name: Not on file Number of children: Not on file Years of education: Not on file Highest education level: Not on file Occupational History Not on file Tobacco Use Smoking status: Never Smokeless tobacco: Never Substance and Sexual Activity Alcohol use: No Drug use: No Sexual activity: Not on file Other Topics Concern Not on file Social History Narrative Not on file Social Drivers of Health Financial Resource Strain: Not on file Food Insecurity: Not on file Transportation Needs: Not on file Physical Activity: Not on file Stress: Not on file Social Connections: Not on file Intimate Partner Violence: Not on file Housing Stability: Not on file FAMILY HISTORY: Family History Problem Relation Name Age of Onset Cancer Mother Diabetes Father Further Family History is noncontributory to this injury. REVIEW OF SYSTEMS: Unable to assess secondary to intubated/sedated VITALS: Vitals: 12/16/24 1343 12/16/24 1404 12/16/24 1416 12/16/24 1438 BP: 119/86 133/94 106/89 BP Location: Patient Position: Pulse: 87 88 92 92 Resp: Temp: TempSrc: SpO2: 100% 100% 100% 93% Weight: Height: PHYSICAL EXAM: GENERAL: Patient is ill appearing in NAD. Intubated MOOD AND AFFECT: Calm appropriate to situation GAIT AND STATION: Patient is in bed COORDINATION and BALANCE: Patient is grossly coordinated LYMPHADENOPATHY: none on examination of the affected extremity(s) SPINE/EXTREMITY: POSTURE: Posture is appropriate and within age defined normal limits. There is no abnormal kyphosis, lordosis or scoliosis. Forward gaze is maintained. UPPER EXTREMITY MOTOR: Del Bi Tri WE WF Int FF Right * * * * * * * Left * * * * * * * *Unable to assess secondary to intubated/sedated LOWER EXTREMITY MOTOR: HF Q TA EHL GSC Right * * * * * Left * * * * * *Unable to assess secondary to intubated/sedated UPPER EXTREMITY SENSATION TO LIGHT TOUCH: C5 C6 C7 C8 T1 Right * * * * * Left * * * * * *Unable to assess secondary to intubated/sedated LOWER EXTREMITY SENSATION TO LIGHT TOUCH: L2 L3 L4 L5 S1 Right * * * * * Left * * * * * *Unable to assess secondary to intubated/sedated LOWER EXTREMITY PULSES: DP PT Right 2+ 2+ Left 2+ 2+ LABS: CBC: Lab Results Component Value Date WBC 18.3 (H) 12/16/2024 RBC 2.62 (L) 12/16/2024 BMP: Lab Results Component Value Date GLUCOSE 140 (H) 12/16/2024 CO2 23 12/16/2024 BUN 20 12/16/2024 CREATININE 0.50 (L) 12/16/2024 CALCIUM 7.9 (L) 12/16/2024 PT/INR: Lab Results Component Value Date INR 1.2 (H) 12/16/2024 APTT 66.1 (H) 12/16/2024 Type and Screen: No results found for: "RH", "LABANTI" CRP: No results found for: "CRP" ESR: No results found for: SEDRATE HgBA1c: No components found for: LABA1C The above labs were reviewed by me. Assessment Claritza is a 79 y.o.female L5-S1 osteomyelitis/discitis Plan -No acute surgical intervention -The CT scan is concerning for bony destruction, thus she may need surgical stabilization but given her medical comorbidities and current ICU status, would certainly defer surgery for several weeks to allow the clinical course to declare itself. -Patient is s/p CT biopsy this afternoon. Cytology ordered (per ID request), and Gram stain/culture ordered. -Plan to treat patient's L5-S1 OD/OM with IV antibiotics per ID consult -Cervical/thoracic spine MRI pending, will be obtained later this evening after 5:30 PM; discussed with RN -Blood culture 12/13/2024 pending (no growth x 2 days) -WBAT BUE/BLE -Okay for up with assist from spine perspective, defer to ICU -Skin/neurochecks -Follow-up outpatient with spine MARISOL. Message sent to Dr. Tellez coordinators for arrangement -Ortho follow peripherally for formal spine exam and MRI completion to update plan as indicated. Please page Ortho resident on-call if patient becomes able to answer questions/fully follow commands Pharmacy to Dose Vancomycin - Progress Note Lab Results Component Value Date CREATININE 0.50 (L) 12/16/2024 BUN 20 12/16/2024 WBC 18.3 (H) 12/16/2024 VANCOTROUGH 29.2 12/15/2024 Doses, serum creatinine, and vancomycin levels interfaced automatically to [employer] and data has been analyzed and interpreted. Infectious Diagnosis: blood, bone/joint Est CrCl: 82 mL/min (Cockcroft-Gault) Assessment: Current regimen vancomycin 1500 mg every 24 hours Predicted AUC = 528 mg/L*hr (goal 400-600 mg/L*hr) PAUC = 95% (probability that AUC is >400 mg/L*hr) Pconc = 6% (probability that Ctrough is above 20 mcg/mL (toxicity)) Plan: Is the current dose therapeutic? [x] Yes - obtain next level on 02/19 unless predicted AUC is sub-/supra-therapeutic or change in serum creatinine. Trend serum creatinine. Trend AUC using Bayesian Modeling. Orders placed. DATE: 12/16/24 TIME: 10:28 AM Zachary Alvarado RPh Clinical Pharmacist Available via Secure Chat 12/16/24 0945 Patient Parameters Ventilator On Yes Vent ID [id number] $ Invasive Vent Daily Charge - Subsequent Yes Patient position Semi fowlers (30-45 ) Heart Rate 83 Resp 20 SpO2 100 % Breath sounds (right) CTA Breath sounds (left) CTA Skin Assessment Clean, dry, intact Secretion Color Martinez Secretion Consistency Thick Respiratory Interventions Respiratory Interventions Performed Airway suction Suctioning/Secretions Secretion Amount Small Suction Device Inline catheter Suctioning Adverse Effects None Suction Type Endotracheal Suction Tolerance Tolerated well Suction Cath Size (Fr) Fr 14 ETT 7.5 mm Placement Date/Time: 12/13/24 130 Earliest Known Present: 12/13/24 ETT Type: ETT - single Single Lumen Tube Size: 7.5 mm ET Tube Depth: 24 Location: Oral Placement Verification: Radiography Secured at (cm) 24 cm Measured from Lips Secured Location Right Secured by Commercial tube elliott Cuff Pressure (cm H2O) 27 cm H2O Site Condition Dry Airway Interventions Integumentary Interventions Foam protective dressing Safety Equipment at Bedside Bag Valve Mask Settings Humidification Heater Heater Temperature 37.2 C (99 F) Drain expiratory filter No Vent Mode SPONT Mandatory Type PC Spontaneous Type TC FiO2 (%) 40 % PEEP/CPAP (cm H2O) 8 cm H20 Sensitivity 3 Expiratory Sensitivity (%) 25 % % Support 100 % Readings PIP Observed (cm H2O) 12 cm H2O MAP (cm H2O) 8.9 Resp Rate Observed 20 Vt (observed, mL) 249 mL Minute Ventilation (L/min) 5.96 L/min I:E Ratio 1:3.7 Plateau Pressure (cm H2O) 15 cm H2O Dynamic Compliance (L/cm H2O) 84 L/cm H2O Static Compliance (L/cm H2O) 39 Airway Resistance 2.4 Total PEEP (cm H2O) 0 cm H2O Alarms Insp Pressure High (cm H2O) 40 cm H2O MV High (L/min) 20 L/min MV Low (L/min) 2.1 L/min Vt High (johann) (mL) 650 mL Vt Low (johann) (mL) 210 mL Vt High (spont) (mL) 650 mL Vt Low (spont) (mL) 210 mL High VTi 900 Apnea Interval (sec) 20 seconds Nurse Call Plugged In Yes Spontaneous Awakening Trial Safety Screen Spontaneous Awakening Trial (SAT - RN) Proceed with SAT - No exclusion criteria met Spontaneous Awakening Trial (SAT) Outcome SAT pass Wean Screen SpO2>/=88% Yes FiO2</=50% Yes PEEP </=8cmH2O Yes HR <140 BPM Yes RR </= 35 breaths/min Yes MAP >/= 65mmHg Yes Arterial pH >7.30 Yes Safety Screen Spontaneous Breathing Trial (SBT - RT) Proceed with SBT - No exclusion criteria met IHI Ventilator Associated Pneumonia Bundle Head of Bed Elevated HOB 30 Spontaneous Breathing Trial Weaning Start Time 0656 Weaning Tidal Volume 249 mL Weaning Respiratory Rate 20 Spontaneous Minute Volume (MV) 5.96 Total RSBI 80 Weaning Tolerance Good Weaning Stop Time 0745 Weaning Duration (min) 89 Spontaneous Breathing Trial (SBT - RT) Outcome SBT Passed Orthopedic Surgery Progress Note The following CT was ordered and subsequently completed. My interpretation is as follows: Cervical CT (12/15/2024): Overall straightening of cervical lordosis. Multilevel cervical spondylosis changes, greatest at C3-C4 and C4-C5 where there is near autofusion of the vertebral bodies. There is also vacuum disc phenomenon appreciated at C5-C6 and C6-C7. At the T1 vertebral body, there is erosive type superior endplate deformity of uncertain etiology. There is also a suspected Schmorl's node appreciated about the inferior endplate of C7. At the posterior left aspect of the C6 vertebral body, there is a well circumscribed area of hyperintensity. There is no fracture. Radiology reports to be reviewed. No change in plan of care from previous consult note. Will discuss with Dr. Tellez Orthopaedic surgery will follow for imaging/biopsy completion and update plan as indicated. Please page parks and recreation manager orthopaedic resident for questions or concerns. Orthopedic Surgery progress note Tentatively plan for CT biopsy today (12/16/24) of the L5-S1 disc space, pending radiology availability. Message was sent to RN to hold tube feeds and order placed. Message was also sent to ICU to hold anticoagulants until after biopsy timing is determined. Orthopaedic surgery will follow. Please page parks and recreation manager orthopaedic resident for questions or concerns. Plan for CT biopsy today (12/16/2024) approximately 1:30 PM, per radiology department. Please continue to hold anticoagulation and tube feeds until after biopsy. ICU Progress Note Name: Claritza Burton : 1945(79 y.o.) Date: 12/16/24 Team: MICU Attending: Dr. Levine Subjective: Hospital Summary: 79 yo F PMH cerebral palsy, PE/DVT on Eliquis, aspiration, esophagitis s/p PEG, recent hospitalizations for parainfluenza, hyponatremia, influenza A and Strep bacteremia who presented to [facility] ED with acute respiratory failure with concerns for pulmonary edema. Initial O2 sats noted to be the 60s, patient intubated and noted to be hypotensive thus was fluid resuscitated. She was noted to be hypertensive and had urinary retention. WBC [address] with infiltr[address] abd/pelvis with concerns for osteomyelitis and discitis at L5-S1 as well as L common femoral vein thrombus. CTA chest demonstrated 1cm percardial effusion. Transferred to [facility] ICU for further management. Interval Events: No acute events overnight. Patient underwent MRI overnight that showed L5-S1 osteomyelitis and discitis. Ortho surgery was consulted and ordered CT-guided bone biopsy, C-spine and T-spine MRI. This morning, patient was awaken to verbal commands and withdraw from pain and follow minimal commands. She still remains intubated and mildly sedated on propofol and fentanyl. Scheduled Meds:bisacodyl, 10 mg, Rectal, BID calcium gluconate, 4,000 mg, IntraVENous, Once cefepime, 2,000 mg, IntraVENous, q8h chlorhexidine, , Topical, Daily metroNIDAZOLE, 500 mg, IntraVENous, q8h mupirocin, 1 Application, Nasal, BID oseltamivir, 75 mg, Oral, BID pantoprazole, 40 mg, Oral, Nightly Or pantoprazole (ProtoNix) 40 mg in sodium chloride (PF) 0.9 % 10 mL injection, 40 mg, IntraVENous, Nightly polyethylene glycol (PEG) 3350, 17 g, Per G Tube, Daily senna-docusate sodium, 2 tablet, Per G Tube, Daily sodium chloride 0.9%, 5-40 mL, IntraCATHeter, q8h vancomycin, 1,500 mg, IntraVENous, q24h Continuous Infusions:fentaNYL, 25-200 mcg/hr, Last Rate: 25 mcg/hr (12/16/24 0613) heparin, 5-30 Units/kg/hr, Last Rate: 16 Units/kg/hr (12/15/24 2241) norepinephrine, 1-100 mcg/min, Last Rate: Stopped (12/16/24 0405) propofol, 5-50 mcg/kg/min, Last Rate: 20 mcg/kg/min (12/16/24 0500) Objective: Last Vitals: BP MAP 110/55 (12/16/24 0545) 72 (12/16/24 0545) Arterial BP MAP Temp 36.9 C (98.4 F) (12/16/24 0400) Pulse 88 (12/16/24 0545) Resp 17 (12/16/24 0545) SpO2 100 % (12/16/24 0545) Weight 144 lb 2.9 oz (65.4 kg) (12/15/24 0512) BMI Body mass index is 24.74 kg/m . I/O: 12/15 0700 - 12/16 658 In: 784 [I.V.:784] Out: 1999 [Urine:1999] Ventilator: Ventilation Day(s): 1 Resp Rate (Set): 14 Vt (Set, mL): 350 mL FiO2 (%): 40 % PEEP/CPAP (cm H2O): 8 cm H20 Inspiratory Time (sec): 1 sec Oxygen Delivery: Invasive Lines / Tubes / Drains: CVC Triple Lumen 12/13/24 Right Internal jugular (Active) Number of days: 0 Peripheral IV 12/13/24 Anterior;Right Forearm (Active) Number of days: 0 Urethral Catheter (Active) Number of days: 0 ETT 7.5 mm (Active) Number of days: 0 Enterostomy PEG Gastric (Active) Number of days: 0 Central Line Indication: Inadequate peripheral access despite documented ultrasound attempts AND unable to place extended dwell PIV Puentes Indications: Acute urinary retention or urinary obstruction and Hourly I&Os (Critical Care ONLY) Restraints: Restraints Non-Violent Or Non-Self Destructive Dec 13, 2024 12:57 Pm Edt Restraint order already placed. Order is valid for duration of episode. Wounds: Constitutional: General Appearance []WDWN []Obese [x]Cachectic [x]Thin [x]Ill Eyes: Inspection of Pupils/Irises Pupils round and react: [x]Yes []No Sclera: []Icteric [x]Non-Icteric Inspection of Conjunctiva/Lids Conjunctiva: []Injected [x]Non-Injected Lids: [x]Intact []Lesion Present ENT/Mouth: External Inspection of ears/nose [x] Normal [] Scar/Lesion/Mass Inspection of teeth/lips/gums Dentition: [x][place] Teeth []Dentures Lips/Gums: [x]Intact []Lesion Present Mucosa: [x][place] [x]Moist []Dry Neck: External Appearance Overall Appearance: [x]Normal []Lesion/Mass/Crepitus Present Trachea midline: [x]Yes []No Thyroid [x]Normal []Enlarged []Tender []Mass []Absent Respiratory: Respiratory effort []Labored []Non-Labored [x] Mechanically-Ventilated Auscultation []Clear [x]Crackles []Wheezes []Rhonchi Cardiovascular: Auscultation Rate: [x]Regular []Irregular []Tachycardia []Bradycardia Rhythm: [x]Regular []Irregular Murmur: []Present [x]Absent Extremities Peripheral Edema: []Present [x]Absent Varicosities: []Present [x]Absent Gastrointestinal: Abdomen Palpation: [x]Soft []Firm []Tender [x]Non-Tender []Distended []Non-distended Mass: []Present [x]Absent Bowel Sounds: [x]Present []Absent Hernia: []Present []Absent Liver/Spleen: []Hepatosplenomegaly []Organomegaly Absent Musculoskeletal: Inspection of Digits and Nails Cyanosis: []Present [x]Absent Clubbing: []Present [x]Absent Ischemia: []Present [x]Absent Infection: []Present [x]Absent Extremities GERMAN Equally: Except ([]RUE [x]RLE []LUE [x]LLE) Strength/Tone: Intact and Normal ([]RUE []RLE []LUE []LLE) Skin: Inspection [x]Normal []Rash []Lesion []Ulcer Palpation [x]Warm []Cool [x]Dry []Clammy []Nodules []Induration []Skin-tightening Cap-Refill: [] <3 sec [] >3 seconds (delayed) Neurologic: GCS EYE: 3 - Opens to verbal commands GCS MOTOR: 6 - Obeys commands for movement GCS VERBAL: 1 - No response Total GCS: 7 [] Sensation grossly intact Psych: Mental Status Alert: [x]Yes [] No Oriented: []x0 []X1 []X2 []X3 - unable to assess due to sedation and intubation Mood/Affect [x]Normal []Flat []Agitated []Depressed []Anxious []Calm [x]Sedated [x]NAD [facility] within last 24 hours- BMP: Recent Labs 12/14/24 03412/15/2434712/16/24 0359 NA 140 138 134* K 3.3* 3.2* 3.4* CL 110* 109* 107 CO2 23 22* 23 BUN 16 22 20 CREATININE 0.53* 0.55* 0.50* CALCIUM 8.0* 7.8* 7.9* MG 1.9 1.8 1.8 PHOS 2.9 2.9 2.3 LFTs: Recent Labs 12/13/24 1332 12/14/24 0348 12/15/24 0348 12/16/24 0359 AST -- 33 16 10 ALT -- 9 <6 <6 PROT -- 4.9* 4.8* 5.0* ALBUMIN -- 1.8* 1.7* 1.6* BILITOT -- 0.4 0.4 0.3 BILIRUBINU Negative -- -- -- ALKPHOS -- 77 72 72 Glucose: Recent Labs 12/14/24 0348 12/15/24 0348 12/16/24 0359 GLUCOSE 109 141* 140* Procal: Recent Labs 12/13/24 1343 PROCAL 4.24* CBC: Recent Labs 12/14/24 0348 12/14/24 0406 12/15/24 0348 12/15/24 0501 12/16/24 0322 12/16/24 0359 WBC 22.8* -- 21.9* -- -- 18.3* HGB 8.2* < > 7.5* 8.6 8.3 7.7* HCT 25.4* -- 22.8* -- -- 24.2* PLT 370 -- 345 -- -- 375 MCV 92.4 -- 90.8 -- -- 92.4 RDW 15.5* -- 15.4* -- -- 15.3* < > = values in this interval not displayed. ABGs: Recent Labs 12/14/24 0406 12/15/24 0501 12/16/24 0322 PHART 7.465* 7.475* 7.453* [id number] 35.1 33.8* 36.2 PO2ART 90.7 120.5* 88.8 [id number] 24.7 24.3 24.8 [id number] Ventilator Ventilator Ventilator Lactic Acid: Recent Labs 12/13/24 1343 LACTATE 1.4 INR: Recent Labs 12/14/24 0348 12/15/24 0348 12/16/24 0359 INR 1.2* 1.2* 1.2* Cardiac Injury Profile: Recent Labs 12/13/24 1343 CKTOTAL 21* Labs in Last 3 months: Lab Results Component Value Date TSH 0.68 12/13/2024 INR 1.2 (H) 12/16/2024 Microbiology- Urine Cx: Lab Results Component Value Date URINECX No growth (<1,000 CFU/mL) 12/13/2024 Blood Cx: Lab Results Component Value Date BLOODCX No growth at 48 hours 12/13/2024 Sputum Cx: Lab Results Component Value Date RESPCULT Few respiratory reba present. 12/14/2024 Gram Stain: Lab Results Component Value Date LABGRAM Few Epithelial cells per low power field (A) 12/14/2024 LABGRAM (A) 12/14/2024 Many Polymorphonuclear leukocytes per low power field LABGRAM Rare Gram positive cocci (A) 12/14/2024 LABGRAM Few Yeast (A) 12/14/2024 PNA PCR: Lab Results Component Value Date HUMANMETAPNE Not Detected 12/14/2024 COVID19: No results found for: COVID19 Legionella Ag: Lab Results Component Value Date LEGIONELLAPN Not Detected 12/14/2024 Strep Ag: No results for input(s): "STREPPNEUMO" in the last 72 hours. 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 Wean down sedation and O2 as tolerated. Daily SBT/SAT. Preferable extubated time Frame depending on orthopedic plans of surgical intervention?. Follow up on hogan cultures. Positive Influenza A --> Tamil flu ordered. Resp grows rare gram positive coci. Consult ID who put patient on IV meropenem continue vancomycin.. Lactic clears. Elevated procal. Blood culture negative for 48 hours. Orthopedics is currently following, patient is undergoing CT-guided lung biopsy and pending MRI scan today. Appreciate Ortho recs on surgical intervention. Continue heparin gtt for DVT. Holding eliquis. Temporarily holding heparin drip for procedure. Hold tube feed today via PEG Spot diuresis Lasix 40mg IV again today with goal 1-2L. Daily CXR unremarkable formal TTE for vegetation evaluation.. Keep NPO. Daily labs GI Prophylaxis: Pantoprazole IV DVT Prophylaxis: Full anticoagulation Disposition: Remain in ICU Status Cosigned by Noni Levine MD at 12/16/2024 4:43 PM EDT Associated attestation - Noni Levine MD - 12/16/2024 4:43 PM EDT I have personally seen the patient and examined along with the resident. I personally obtained the lamb and relevent portions of the history and performed physical exam. I reviewed the chart including MAR, labs, and radiology and agree with the patient's plan of action as discussed with the resident. This note reflects my plan of care as I have edited the note to reflect my findings and my assessment and plan. ROS documentation was reviewed and negative unless otherwise stated in HPI. Chief Complaint: Acute Respiratory Failure with Hypoxia Additional pertinent interval history, ROS, and physical exam findings: Patient seen and examined. Awakes, follows some simple commands. Remains intubated. Compliant with mechanical ventilation. MRI lumbar spine with evidence of osteomyelitis/discitis. Ortho and ID consulted. 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 ID consulted. - ortho spine following. Plan for biopsy and conservative measures once acute illness improves. Blood cultures remain negative. - Check MRI cervical and thoracic spine for concern other sites of infection. - ESR/CRP Elevated - hold eliquis, start heparin gtt - diuresis with lasix for fluid goal negative 1-2L. - continue tube feeds. Code Status: DNR-CCA, ok for intubation Disposition: Remain in ICU for ongoing care Total critical care time caring for this patient with life threatening, unstable organ failure, including direct patient contact, management of life support systems, review of data including imaging and labs, discussions with other team members and physicians is 33 minutes, excluding procedures. Noni Levine MD Pulmonary and Critical Care Medicine Attending Pager #[phone] Pharmacy to Dose Vancomycin - Progress Note Lab Results Component Value Date CREATININE 0.55 (L) 12/15/2024 BUN 22 12/15/2024 WBC 21.9 (H) 12/15/2024 VANCOTROUGH 29.2 12/15/2024 Doses, serum creatinine, and vancomycin levels interfaced automatically to [employer] and data has been analyzed and interpreted. Infectious Diagnosis: Blood and bone and joint infection Est CrCl: 74 mL/min (Cockcroft-Gault) Assessment: Current regimen vancomycin 1500 mg every 24 hours (22.9 mg/kg) Predicted AUC = 568 mg/L*hr (goal 400-600 mg/L*hr) PAUC = 99% (probability that AUC is >400 mg/L*hr) Pconc = 10% (probability that Ctrough is above 20 mcg/mL (toxicity)) Plan: Is the current dose therapeutic? [x] Yes - obtain next level on 12/20/24 unless predicted AUC is sub-/supra-therapeutic or change in serum creatinine. Trend serum creatinine. Trend AUC using Bayesian Modeling. Orders placed. DATE: 12/15/24 TIME: 10:54 AM Sonya Ricketts RPh Clinical Pharmacist Available via Secure Chat Patient tolerated trial on transport vent well. She maintained appropriate vitals. Trial ended after 35 minutes and patient placed back on 980 ventilator with previous settings. ICU Progress Note Name: Claritza Burton : 1945(79 y.o.) Date: 12/15/24 Team: MICU Attending: Dr. Levine Subjective: Hospital Summary: 79 yo F PMH cerebral palsy, PE/DVT on Eliquis, aspiration, esophagitis s/p PEG, recent hospitalizations for parainfluenza, hyponatremia, influenza A and Strep bacteremia who presented to [place] ED with acute respiratory failure with concerns for pulmonary edema. Initial O2 sats noted to be the 60s, patient intubated and noted to be hypotensive thus was fluid resuscitated. She was noted to be hypertensive and had urinary retention. WBC [address] with infiltrates. [address] abd/pelvis with concerns for osteomyelitis and discitis at L5-S1 as well as L common femoral vein thrombus. CTA chest demonstrated 1cm percardial effusion. Transferred to [facility] ICU for further management. Interval Events: No acute events overnight. However when sedation is increased to facilitate MRI, patient became hypotensive that require minimal levophed. Patient remained afebrile and HDS this morning on levophed of 3. She is open eyes to verbal commands and minimally follow commands this morning. Appears to be in no acute distress on mechanical ventilation and on propofol and fentanyl sedation. Scheduled Meds:bisacodyl, 10 mg, Rectal, BID calcium gluconate, 4,000 mg, IntraVENous, Once cefepime, 2,000 mg, IntraVENous, q8h chlorhexidine, , Topical, Daily furosemide, 40 mg, IntraVENous, Once metroNIDAZOLE, 500 mg, IntraVENous, q8h mupirocin, 1 Application, Nasal, BID oseltamivir, 75 mg, Oral, BID pantoprazole, 40 mg, Oral, Nightly Or pantoprazole (ProtoNix) 40 mg in sodium chloride (PF) 0.9 % 10 mL injection, 40 mg, IntraVENous, Nightly polyethylene glycol (PEG) 3350, 17 g, Per G Tube, Daily potassium chloride, 20 mEq, IntraVENous, q1h senna-docusate sodium, 2 tablet, Per G Tube, Daily sodium chloride 0.9%, 5-40 mL, IntraCATHeter, q8h vancomycin, 1,500 mg, IntraVENous, q24h Continuous Infusions:fentaNYL, 25-200 mcg/hr, Last Rate: 50 mcg/hr (12/14/241929) heparin, 5-30 Units/kg/hr, Last Rate: 15 Units/kg/hr (12/15/24522) norepinephrine, 1-100 mcg/min, Last Rate: 4 mcg/min (12/15/24 0516) propofol, 5-50 mcg/kg/min, Last Rate: 20 mcg/kg/min (12/15/24 0418) Objective: Last Vitals: BP MAP 121/52 (12/15/24 0415) 71 (12/15/24 041) Arterial BP MAP Temp 36.1 C (97 F) (12/15/24 0400) Pulse 84 (12/15/24 0501) Resp 15 (12/15/24 0501) SpO2 100 % (12/15/24 0501) Weight 144 lb 2.9 oz (65.4 kg) (12/15/24 0512) BMI Body mass index is 24.74 kg/m . I/O: 12/14 699 - 12/15 658 In: 665 [I.V.:] Out: 1924 [Urine:1924] Ventilator: Ventilation Day(s): 1 Resp Rate (Set): 14 Vt (Set, mL): 350 mL FiO2 (%): 50 % PEEP/CPAP (cm H2O): 8 cm H20 Inspiratory Time (sec): 1 sec Oxygen Delivery: Invasive Lines / Tubes / Drains: CVC Triple Lumen 12/13/24 Right Internal jugular (Active) Number of days: 0 Peripheral IV 12/13/24 Anterior;Right Forearm (Active) Number of days: 0 Urethral Catheter (Active) Number of days: 0 ETT 7.5 mm (Active) Number of days: 0 Enterostomy PEG Gastric (Active) Number of days: 0 Central Line Indication: Inadequate peripheral access despite documented ultrasound attempts AND unable to place extended dwell PIV Puentes Indications: Acute urinary retention or urinary obstruction and Hourly I&Os (Critical Care ONLY) Restraints: Restraints Non-Violent Or Non-Self Destructive Dec 13, 2024 12:57 Pm Edt Restraint order already placed. Order is valid for duration of episode. Wounds: Constitutional: General Appearance []WDWN []Obese [x]Cachectic [x]Thin [x]Ill Eyes: Inspection of Pupils/Irises Pupils round and react: [x]Yes []No Sclera: []Icteric [x]Non-Icteric Inspection of Conjunctiva/Lids Conjunctiva: []Injected [x]Non-Injected Lids: [x]Intact []Lesion Present ENT/Mouth: External Inspection of ears/nose [x] Normal [] Scar/Lesion/Mass Inspection of teeth/lips/gums Dentition: [x][place] Teeth []Dentures Lips/Gums: [x]Intact []Lesion Present Mucosa: [x][place] [x]Moist []Dry Neck: External Appearance Overall Appearance: [x]Normal []Lesion/Mass/Crepitus Present Trachea midline: [x]Yes []No Thyroid [x]Normal []Enlarged []Tender []Mass []Absent Respiratory: Respiratory effort []Labored []Non-Labored [x] Mechanically-Ventilated Auscultation []Clear [x]Crackles []Wheezes []Rhonchi Cardiovascular: Auscultation Rate: [x]Regular []Irregular []Tachycardia []Bradycardia Rhythm: [x]Regular []Irregular Murmur: []Present [x]Absent Extremities Peripheral Edema: []Present [x]Absent Varicosities: []Present [x]Absent Gastrointestinal: Abdomen Palpation: [x]Soft []Firm []Tender [x]Non-Tender []Distended []Non-distended Mass: []Present [x]Absent Bowel Sounds: [x]Present []Absent Hernia: []Present []Absent Liver/Spleen: []Hepatosplenomegaly []Organomegaly Absent Musculoskeletal: Inspection of Digits and Nails Cyanosis: []Present [x]Absent Clubbing: []Present [x]Absent Ischemia: []Present [x]Absent Infection: []Present [x]Absent Extremities GERMAN Equally: Except ([]RUE [x]RLE []LUE [x]LLE) Strength/Tone: Intact and Normal ([]RUE []RLE []LUE []LLE) Skin: Inspection [x]Normal []Rash []Lesion []Ulcer Palpation [x]Warm []Cool [x]Dry []Clammy []Nodules []Induration []Skin-tightening Cap-Refill: [] <3 sec [] >3 seconds (delayed) Neurologic: GCS EYE: 3 - Opens to verbal commands GCS MOTOR: 6 - Obeys commands for movement GCS VERBAL: 1 - No response Total GCS: 7 [] Sensation grossly intact Psych: Mental Status Alert: [x]Yes [] No Oriented: []x0 []X1 []X2 []X3 - unable to assess due to sedation and intubation Mood/Affect [x]Normal []Flat []Agitated []Depressed []Anxious []Calm [x]Sedated [x][facility] within last 24 hours- BMP: Recent Labs 12/13/24 1343 12/14/24 0348 12/15/24 0348 NA -- 140 138 K -- 3.3* 3.2* CL -- 110* 109* CO2 -- 23 22* BUN -- 16 22 CREATININE 0.50* 0.53* 0.55* CALCIUM -- 8.0* 7.8* MG 1.5* 1.9 1.8 PHOS 2.3 2.9 2.9 LFTs: Recent Labs 12/13/24 1332 12/14/24 0348 12/15/24 034 AST -- 33 16 ALT -- 9 <6 PROT -- 4.9* 4.8* ALBUMIN -- 1.8* 1.7* BILITOT -- 0.4 0.4 BILIRUBINU Negative -- -- ALKPHOS -- 77 72 Glucose: Recent Labs 12/14/24 0348 12/15/24 034 GLUCOSE 109 141* Procal: Recent Labs 12/13/24 1343 PROCAL 4.24* CBC: Recent Labs 12/13/24 1343 12/14/24 0348 12/14/24 0406 12/15/24 0348 12/15/24 0501 WBC 24.0* 22.8* -- 21.9* -- HGB 9.9 9.2* 8.2* 9.6 7.5* 8.6 HCT 28.5* 25.4* -- 22.8* -- PLT 345 370 -- 345 -- MCV 92.2 92.4 -- 90.8 -- RDW 15.2* 15.5* -- 15.4* -- ABGs: Recent Labs 12/13/24 1343 12/14/24 0406 12/15/24 0501 PHART -- 7.465* 7.475* [id number] -- 35.1 33.8* PO2ART -- 90.7 120.5* [id number] -- 24.7 24.3 [id number] Ventilator Ventilator Ventilator Lactic Acid: Recent Labs 12/13/24 1343 LACTATE 1.4 INR: Recent Labs 12/14/24 0348 12/15/24 0348 INR 1.2* 1.2* Cardiac Injury Profile: Recent Labs 12/13/24 1343 CKTOTAL 21* Labs in Last 3 months: Lab Results Component Value Date TSH 0.68 12/13/2024 INR 1.2 (H) 12/15/2024 Microbiology- Urine Cx: Lab Results Component Value Date URINECX No growth (<1,000 CFU/mL) 12/13/2024 Blood Cx: Lab Results Component Value Date BLOODCX No growth at 24 hours 12/13/2024 Sputum Cx: Lab Results Component Value Date RESPCULT Culture in progress 12/14/2024 Gram Stain: Lab Results Component Value Date LABGRAM Few Epithelial cells per low power field (A) 12/14/2024 LABGRAM (A) 12/14/2024 Many Polymorphonuclear leukocytes per low power field LABGRAM Rare Gram positive cocci (A) 12/14/2024 LABGRAM Few Yeast (A) 12/14/2024 PNA PCR: Lab Results Component Value Date HUMANMETAPNE Not Detected 12/14/2024 COVID19: No results found for: COVID19 Legionella Ag: Lab Results Component Value Date LEGIONELLAPN Not Detected 12/14/2024 Strep Ag: No results for input(s): "STREPPNEUMO" in the last 72 hours. 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 Wean down sedation and O2 as tolerated. Daily SBT/SAT. Follow up on hogan cultures. Positive Influenza A --> Tamil flu ordered. Resp grows rare gram positive coci. Continue IV Vanc/Cefepime/Flagyl. Lactic clears. Elevated procal Will try again obtain MRI lumbar for L5-S1 today detailed eval of possible discitis/osteomyelitis as CT is nonspecific. blood cultures NGTD 24hrs. Consider Ortho consult if either results positive. Continue heparin gtt for DVT. Holding eliquis Continue tube feed today via PEG Spot diuresis Lasix 40mg IV with goal 1-2L. Daily CXR unremarkable formal TTE. Keep NPO. Daily labs GI Prophylaxis: Pantoprazole IV DVT Prophylaxis: Full anticoagulation Disposition: Remain in ICU Status Cosigned by Noni Levine MD at 12/15/2024 4:57 PM EDT Associated attestation - Noni Levine MD - 12/15/2024 4:57 PM EDT I have personally seen the patient and examined along with the resident. I personally obtained the lamb and relevent portions of the history and performed physical exam. I reviewed the chart including MAR, labs, and radiology and agree with the patient's plan of action as discussed with the resident. This note reflects my plan of care as I have edited the note to reflect my findings and my assessment and plan. ROS documentation was reviewed and negative unless otherwise stated in HPI. Chief Complaint: Acute Respiratory Failure with Hypoxia Additional pertinent interval history, ROS, and physical exam findings: Patient seen and examined. Opens eyes follows some commands. Compliant with mechanical ventilation. Plan for MRI to evaluate L5-S1. Assessment and Plan: Acute Respiratory Failure with Hypoxia Severe Sepsis HCAP given recent hospitalizations Concern for osteomyelitis/discitis L5-S1 Leukocytosis Hx DVT/PE on Eliquis Pericardial effusion Volume overload/Pulmonary edema Lower extremity edema Hx Bladder CA w/ urinary retention w/ chronic puentes - follow cultures continue broad spectrum antibiotics with vanc/cefepime/flagyl. - Check MRI lumbar spine for concern for osteo. If confirms concerns for osteomyelitis/discitis consult ortho spine - ESR/CRP Elevated - hold eliquis, start heparin gtt - diuresis with lasix for fluid goal negative 1-2L. - continue tube feeds. Code Status: DNR-CCA, ok for intubation Disposition: Remain in ICU for ongoing care Total critical care time caring for this patient with life threatening, unstable organ failure, including direct patient contact, management of life support systems, review of data including imaging and labs, discussions with other team members and physicians is 34 minutes, excluding procedures. Noni Levien MD Pulmonary and Critical Care Medicine Attending Pager #[phone] Family Communication Number Called: [phone] Name of Designated Family Guidance Consultant: Key Dickinson Relationship: Niece Phone Call Outcome: I spoke with the individual listed above. Family Guidance Consultant Updated on the Following: Called to provide daily update to family Pharmacy to Dose Vancomycin - Progress Note Lab Results Component Value Date CREATININE 0.53 (L) 12/14/2024 BUN 16 12/14/2024 WBC 22.8 (H) 12/14/2024 VANCOTROUGH 26.0 12/14/2024 Doses, serum creatinine, and vancomycin levels interfaced automatically to [employer] and data has been analyzed and interpreted. Infectious Diagnosis: Blood/bone & joint Est CrCl: 85 mL/min (Cockcroft-Gault) Assessment: Current regimen vancomycin 1000mg every 12 hours Predicted AUC = 707 mg/L*hr (goal 400-600 mg/L*hr) PAUC = 100% (probability that AUC is >400 mg/L*hr) Pconc = 52% (probability that Ctrough is above 20 mcg/mL (toxicity)) Plan: Is the current dose therapeutic? [x] No - change current regimen to vancomycin 1500 mg every 24 hours for predicted AUC 537 mg/L*hr, PAUC = 97% , and Pconc* = 1%. Obtain next level on 12/15. Trend serum creatinine. Trend AUC using Bayesian Modeling. Orders placed. DATE: 12/14/24 TIME: 10:57 AM Zachary Alvarado formerly [facility] Clinical Pharmacist Available via Secure Chat ICU Progress Note Name: Claritza Burton : 1945(79 y.o.) Date: 12/14/24 Team: MICU Attending: Dr. Levine Subjective: Hospital Summary: 79 yo F PMH cerebral palsy, PE/DVT on Eliquis, aspiration, esophagitis s/p PEG, recent hospitalizations for parainfluenza, hyponatremia, influenza A and Strep bacteremia who presented to [place] ED with acute respiratory failure with concerns for pulmonary edema. Initial O2 sats noted to be the 60s, [facility] 12-31-2024 Nurse Note Verbal report given to KHANH Archibald at [facility]. No questions or concerns voiced. Call back number provided. Report called to 4N nurse at 1950 Returned to room from [facility], gio well. Complete bath. Transferred to MRI via cart. Wound Care arrived to pt's room for Prevention consult, but pt not in room at present time. Will return as time permits. Please Voicera for any questions or concerns. Gali Guadarrama RN, [facility] Patient to CT guided biopsy documented in this encounter [facility] 12-31-[address] [facility] 12-31-2024 Hospital course Narrative Hospitalist Discharge Summary Claritza Burton : 1945 Admit date: 12/13/2024 Discharge date: 12/31/2024 Admitting Physician: Noni Levine MD Primary Care Physician: JENARO AYERS MD Visit Status: Inpatient Code Status: DNR-CCA BRIEF HOSPITAL COURSE: Claritza is a 79F hx cerebral palsy, PE/DVT on DOAC, chronic aspiration/esophagitis (s/p PEG), HTN, chronic anxiety, headaches, bladder CA with chronic puentes (urinary retention), recent hospitalizations for parainfluenza, hyponatremia, influenza A, and Strep bacteremia presented to [place] ED from [facility] (there 72hrs after most recent admission) with hypoxic respiratory failure requiring intubation. CXR showing multifocal infiltrates, CT abdomen/pelvis showing signs of discitis/OM at L5-S1, L common femoral vein thrombus. CTA chest showing 1cm pericardial effusion. Transferred to [facility] ICU on 12/13 for further management. 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 She was transferred to [facility] 12/24 and developed worsening hypoxic respiratory failure, poor secretion management and was treated with high flow nasal cannula, broad spectrum antibiotics, and transferred back to ICU on 12/26. Treated with HHFNC, & abx broaded. 12/27 overall improving since transfer, 30%/50L HFNC; subjectively feeling better. DNR-CCA/DNI established. Transferred back to [facility] on 12/30. Remained stable, on RA, without fevers/chills. ID followed for influenza A/ VDRF and L5-S1 VO/diskitis. Was initially treated with meropenem and then switched to ceftriaxone. Plan to continues ceftriaxone through 02/10 (8 weeks course) for coverage of spine infection with previous BSI. PICC is in place, placed on 12/30/24. Evaluated by PT/OT and recommends SNF. Patient has been accepted to [facility]. Deemed medically stable and ready for discharge on 12/31/2024. Patient is at increased risk for experiencing ongoing aspiration of oral contents and recurrent pneumonia. Recommend continuous tube feed. Acute, acute on chronic, unstable/uncontrolled chronic problems/discharge diagnoses: Acute hypoxic respiratory failure secondary to recent flu A, parainfluenza pneumonia, concern for aspiration of secretions. On room air at the present time. Chronic osteomyelitis, discitis L5-S1 s/p CT-guided biopsy on 12/16-patient to follow-up outpatient with Ortho for potential surgical interventions. Biopsy results NGTD. On ceftriaxone. Altered mental status, with history of CP. A&O x 1 at baseline Pulmonary edema-improved Sinus tachycardia-improved History of DVT and PE on Eliquis Urinary retention-with chronic Puentes Stable chronic problems affecting care, new non-acute discharge diagnoses: Past Medical History: Diagnosis Date Anxiety Cancer ([facility]) ([facility]) Cerebral palsy ([facility]) 1944 Frequent urination Headache Hypertension Palpitations Procedures: as above Radiography/Echo/Other: 12/26- CXR- Cardiac and mediastinal silhouette within normal limits. Lungs are hyperinflated, with interstitial prominence and coarsening bilaterally and probable left basilar atelectasis versus scarring, about the same. No focal consolidation or apparent pneumothorax. Bony thorax grossly unremarkable. IMPRESSION: 1. Stable examination. No acute findings. 12/21- CXR- Pulmonary vascular congestion and/or infiltrates, similar to prior day. 12/17- MRI C-spine- No evidence of osteomyelitis discitis. No peripherally enhancing fluid collection to suggest an epidural or soft tissue abscess. Multilevel spondylosis most pronounced at C4-C5 where there is severe canal stenosis without cord compression. No underlying cord signal change. There is also moderate to severe canal stenosis at C3-C4 with cord flattening without underlying signal change. Multilevel variable foraminal stenosis as outlined, up to severe. 12/17- MRI T-spine- No evidence of osteomyelitis discitis. No peripherally enhancing fluid collection to suggest an epidural or soft tissue abscess. Findings suggesting recent (acute to subacute) Schmorl's nodes at the inferior endplates of T10 and T11. No significant canal or foraminal stenosis. Bilateral pleural effusions and associated opacities. 12/15- CT C-spine- 1. Moderate degenerative changes in the mid cervical spine. 2. Canal stenosis is most pronounced at C3-4 and C4-5. There is a mild impression on the ventral spinal cord. 3. No direct CT evidence of discitis/osteomyelitis on this unenhanced scan. 4. Mild inflammatory changes in the left mastoid air cells. This is nonspecific but may indicate mastoiditis. 5. There is a significant amount of cerumen/debris in the left external auditory canal. Please correlate with direct visualization. 12/15- MRI L-spine- Marrow signal changes of L5-S1 vertebral bodies with fluid signal of the disc are consistent with osteomyelitis discitis. No peripherally enhancing fluid collection to suggest an epidural or paraspinal abscess. Small Schmorl's node at the inferior endplate of T11 with mild edema and enhancement suggest acute to subacute Schmorl's node formation. Multilevel spondylosis as outlined. No high-grade canal stenosis. Multilevel foraminal stenoses, most pronounced at L5-S1. Anatomic Lumbar Variant: None. L4-5 is considered the level of the iliac crest and assume there are 5 lumbar-type vertebrae. 12/14- TTE- Left Ventricle: Left ventricle is smaller than normal. Normal wall thickness. Normal left ventricular systolic function. EF by 2D Simpsons Biplane is 67%. Normal wall motion. Grade I diastolic dysfunction with normal LAP. Right Ventricle: Right ventricle size is normal. Reduced systolic function. TAPSE is abnormal. Pericardium: Small (<1 cm) pericardial effusion present. Pericardial effusion is echolucent. Features indicating an absence of cardiac tamponade are present. No significant valvular abnormalities. 12/13- CT c/a/p- 1. Multifocal infiltrates concerning for multifocal pneumonia. 2. Small to moderate left pleural effusion. 3. Moderate pericardial effusion. 4. Moderate stool throughout the colon and a large amount of stool in the rectum. Consider constipation and/or fecal impaction. Perirectal fat stranding is present suggesting proctitis including stercoral proctitis. 5. Chronic osseous changes. Erosive changes at L5-S1. 12/13- CT brain- 1. No evidence of an intracranial mass, edema or parenchymal flexion. If there is persistent concern for an abnormality not seen by CT, consider MRI and/or CSF analysis, if appropriate. 2. Cerebral volume loss. White matter changes likely due to microangiopathic disease. 3. Nonspecific left mastoid effusion. An infectious process cannot be excluded. Hospital Course: See discharge diagnoses list above and medication adjustments below in med rec.The patient is discharged in improved and stable condition. Consults: IP CONSULT TO WOUND PREVENTION IP CONSULT TO DIETITIAN IP CONSULT TO DIETITIAN IP CONSULT TO ORTHOPAEDIC SURGERY IP CONSULT TO INFECTIOUS DISEASES IP CONSULT TO WOUND PREVENTION INPATIENT CONSULT TO WOUND CARE PROVIDERS IP CONSULT TO PULMONOLOGY IP CONSULT TO PROCEDURE TEAM Discharge Instructions: Diet: Dietary Orders (From admission, onward) Start Ordered 12/24/24 1045 Diet, tube feeding no tray PEG; Vital 1.5 Dvaide; Continuous; Yes; 10; Q 6 Hours; 10; 40 Diet effective now Question Answer Comment Route: PEG Formula: Vital 1.5 Davide Delivery Method: Continuous Continuous Advance Tube Feeding? Yes Advancement Volume (mL/hr) 10 Advancement Frequency: Q 6 Hours Continuous Initial Rate (Recommended mL/hr) 10 Continuous Goal Rate (Recommended mL/hr) 40 12/24/24 1044 Activity: as tolerated Recommended Outpatient Tests: Disposition: Patient discharged in stable condition to SNF . Greater than 31 minutes spent discharging the patient and coming up with patient discharge plan. Vitals: BP 123/70 (BP Location: Right arm, Patient Position: Lying) Pulse 101 Temp 36.2 C (97.2 F) (Temporal) Resp 16 Ht 5' 4.02" (1.626 m) Wt 92 lb 13 oz (42.1 kg) SpO2 96% BMI 15.92 kg/m Pulse Ox: SpO2 Av.7 % Min: 96 % Max: 98 % Supplemental O2: O2 Flow Rate (L/min): 2 L/min Physical Exam Constitutional: General: She is not in acute distress. Eyes: Pupils: Pupils are equal, round, and reactive to light. Cardiovascular: Rate and Rhythm: Tachycardia present. Pulses: Normal pulses. Pulmonary: Effort: Pulmonary effort is normal. Abdominal: General: Bowel sounds are normal. There is no distension. Comments: +peg tube Musculoskeletal: Right lower leg: No edema. Left lower leg: No edema. Skin: General: Skin is warm and dry. Capillary Refill: Capillary refill takes less than 2 seconds. LABS: Recent Labs 12/29/24 0150 12/30/24 0441 12/31/24 0400 NA 139 138 140 K 4.1 4.0 4.1 CL 108* 108* 108* CO2 25 BUN 12 16 16 CREATININE 0.47* 0.47* 0.47* GLUCOSE 108 120* 118* CALCIUM 8.6* 8.5* 8.3* Recent Labs 12/29/24 0150 12/30/24 0441 12/31/24 0400 WBC 8.8 7.4 7.0 RBC 2.75* 3.02* 3.03* HGB 7.8* 8.7* 8.5* HCT 25.3* 28.1* 28.0* MCV 92.0 93.0 92.4 MCH 28.4 28.8 28.1 MCHC 30.8 31.0 30.4* RDW 15.5* 15.6* 15.6* PLT 481* 456* 456* MPV 9.9 9.8 9.8 Discharge Medications: Medication List CONTINUE taking these medications acetaminophen 325 MG tablet Commonly known as: Tylenol amLODIPine 5 MG tablet Commonly known as: Norvasc cholecalciferol 25 MCG (1000 UT) tablet Commonly known as: Vitamin D3 dextran 70-hypromellose 0.1-0.3 % ophthalmic solution Commonly known as: artificial tears Eliquis 5 MG tablet Generic drug: apixaban ferrous sulfate 325 (65 Fe) MG tablet lisinopril 20 MG tablet metoprolol succinate XL 50 MG 24 hr tablet Commonly known as: Toprol-XL metoprolol tartrate 25 MG tablet Commonly known as: Lopressor polyethylene glycol (PEG) 3350 17 g packet Commonly known as: Miralax pregabalin 50 MG capsule Commonly known as: Lyrica risperiDONE 0.5 MG tablet Commonly known as: RisperDAL senna-docusate sodium 8.6-50 MG tablet Commonly known as: Senokot-S tamsulosin 0.4 MG 24 hr capsule Commonly known as: Flomax Recommended Follow-up: Jenaro Ayers MD [address] [facility] [address] Follow up Followup with orthopaedic Caitlyn Adamson PA-C Physician [employer] Orthopedic Surgery [phone] [address] [facility] [address] [facility] [address] Next Steps: Follow up Margot Carver MD Infectious Diseases [phone] [place] [address] [address] [facility] [address] Next Steps: Follow up Complexity of Follow up: [] Moderate Complexity: follow up within 7-14 calendar days (39770) [x] Severe Complexity: follow up within 7 calendar days (78231) Follow up Testing, Pending results or Referrals at Transitional Care Visit: [x] yes [] no Instructions to MA: Please call patient on day after discharge (must document patient contacted within 2 business days of discharge). Follow up questions for MA: 1. Did you get medications filled and taking them as instructed from discharge? 2. Are you following your discharge instructions from your hospital stay? 3. Please confirm patient is scheduled for a follow up appointment within the above time frame. Signed: Mirela Solomon NP Division of Hospitalist Medicine [facility] 12/31/2024, 11:44 AM Cosigned by Nolan Santana DO at 12/31/2024 8:55 PM EDT documented in this encounter [facility] 12-31-2024 Miscellaneous Notes Patient Choice Patient Name: CLARITZA BURTON Date of : 1945 All Providers Sent Referral Name: [facility] Phone: [phone] Address: [address] [id number] Discharge med list transmitted to [facility] via [facility] per TCC request. 7000 was entered into [facility] for the [facility]. Transport arranged for 2pm to [facility] for skilled care. Called legal guardian Kadi Dickinson- updated on above plan- agreeable to plan. No further needs. Problem: Knowledge Deficit Goal: Patient/family/caregiver demonstrates understanding of disease process, treatment plan, medications, and discharge instructions Outcome: Progressing Problem: Potential for Compromised Skin Integrity Goal: Skin Integrity is Maintained or Improved Outcome: Progressing Problem: Urinary Incontinence Goal: Perineal skin integrity is maintained or improved Outcome: Progressing Problem: Problem Interventions Goal: Assess Nutritional Intake Outcome: Progressing Confirmed pickup time of 2:00pm on 12/31/24 by Ceres at phone number [phone]. Location of facility drop off is [facility]. Facility notified via [employer], [facility] notified on secure chat. Care Management Progress Note Pt transferred from T2 for continued care. Auth obtained yesterday for skilled care at [facility]. Message to attending this am regarding auth and plan for discharge today- awaiting response. Pt will continue IV ceftriaxone q8hr through 02/10/25 per ID. Opat under media tab. Pt has legal guardian- will update on discharge plan once verified. [employer] SOFTWARE DEVELOPMENT ENGINEER to place pt in roundtrip under will call for transport assist. JOAO complete. Length of Stay (Days): 18 GMLOS: 9.6 Problem: Knowledge Deficit Goal: Patient/family/caregiver demonstrates understanding of disease process, treatment plan, medications, and discharge instructions Outcome: Progressing Problem: Potential for Compromised Skin Integrity Goal: Skin Integrity is Maintained or Improved Outcome: Progressing Problem: Urinary Incontinence Goal: Perineal skin integrity is maintained or improved Outcome: Progressing Problem: Safety - Non-violent/Interference with Medical Treatment Restraint Goal: Remains free of injury from restraints (Restraint for Interference with Community Service Officer) Outcome: Progressing Goal: Free from restraint(s) (Restraint for Interference with Community Service Officer) Outcome: Progressing [facility] notified ACCOUNTS RECEIVABLE CLERK that Patient is approved with auth good until 01/05. Notified TCC. Care Management Progress Note Updated Legal Guardian - Kadi re SNF acceptance to [facility]. Auth intitiated. PICC placement today. Length of Stay (Days): 17 GMLOS: 9.6 Problem: Problem Interventions Goal: Assess Nutritional Intake Outcome: Progressing Problem: Safety - Non-violent/Interference with Medical Treatment Restraint Goal: Remains free of injury from restraints (Restraint for Interference with Community Service Officer) Outcome: Progressing Problem: Knowledge Deficit Goal: Patient/family/caregiver demonstrates understanding of disease process, treatment plan, medications, and discharge instructions Outcome: Not Progressing Problem: Safety - Non-violent/Interference with Medical Treatment Restraint Goal: Free from restraint(s) (Restraint for Interference with Community Service Officer) Outcome: Not Progressing Problem: Knowledge Deficit Goal: Patient/family/caregiver demonstrates understanding of disease process, treatment plan, medications, and discharge instructions Outcome: Not Progressing Problem: Safety - Non-violent/Interference with Medical Treatment Restraint Goal: Free from restraint(s) (Restraint for Interference with Community Service Officer) Outcome: Not Progressing guardian called and asked if a referral could be sent to the [facility] in [place]. Referral made. Images from the original note were not included. ICU TRANSFER CHECKLIST Transfer Med Reconciliation (resume home meds if able, convert to PO if able) Complete Antibiotics (name, indication, duration, convert to PO if able) Yes, addressed in today's progress note Steroid (indication, duration, convert to PO if able) None Anticipated [place] Medications (ICU initiated) or Dose Changes and Indication Yes, addressed in today's progress note Permanently Discontinued Home Medications and Reason for medication contraindication No Puentes Catheter (please remove if able) Yes, indication chronic urinary retention Central Line (please remove if able) No Transfer Discussed with: USACS Dr. Willis, ICU Dr. Alamo If additional questions for ICU team within 24 hours of ICU transfer, page ICU for clarifications. Patient remains in T2, pulmonary consult pending. Patient will need PT/OT evals to start auth at [facility], tasked therapy to see patient. CM to follow. . Had GOC discussion about the risk >> benefits of reintubation with niece and sister at bedside due to patient is a hard extubation and comorbidities and mentation may require tracheostomy for vent dependence. Niece stated that they and pt never want a trach and given another intubation would mean high possibility of tracheostomy, family prefer to switched code status to DNR/DNI. SEP-1 CORE MEASURE DATA SIRS Criteria Sepsis Criteria Severe Sepsis Criteria Septic Shock Criteria Must meet 2: [x] Temperature > 100.4 F (38 C) or < 96.8 F (36 C) [x] HR > 90 [x] RR > 20 [] WBC > 12 or < 4 or 10% bands Must be confirmed or suspected to move forward with diagnosis of sepsis. Must select at least one: [x] Bacterial infection Confirmed or Suspected. [] Viral infection Confirmed or Suspected. [] No infection present. Patient does not meet criteria for Sepsis. Must meet 1: [] Lactate > 2 or [] Signs of Organ Dysfunction: - SBP < 90 or MAP < 65 - Altered mental status - Creatinine > 2 or increased from baseline - Urine Output < 0.5 ml/kg/hr - Bilirubin > 2 - INR > 1.5 - Platelets < 100,000 - Acute Respiratory Failure as evidenced by new need for NIPPV or mechanical ventilation [x] No criteria met for Severe Sepsis. Must meet 1: [] Lactate = or > 4 or [] SBP < 90 or MAP < 65 for at least two readings in the first hour after fluid bolus administration [x] No criteria met for Septic Shock. BP 160/99 (BP Location: Left arm) Pulse 112 Temp (!) 38.5 C (101.3 F) (Axillary) Resp (!) 36 Ht 5' 4.02" (1.626 m) Wt 107 lb 12.9 oz (48.9 kg) SpO2 93% BMI 18.50 kg/m Problem: Knowledge Deficit Goal: Patient/family/caregiver demonstrates understanding of disease process, treatment plan, medications, and discharge instructions Outcome: Not Progressing Problem: Potential for Compromised Skin Integrity Goal: Skin Integrity is Maintained or Improved Outcome: Progressing Problem: Urinary Incontinence Goal: Perineal skin integrity is maintained or improved Outcome: Progressing Problem: Problem Interventions Goal: Assess Nutritional Intake Outcome: Progressing Problem: Safety - Non-violent/Interference with Medical Treatment Restraint Goal: Remains free of injury from restraints (Restraint for Interference with Community Service Officer) Outcome: Completed Goal: Free from restraint(s) (Restraint for Interference with Community Service Officer) Outcome: Completed Problem: Knowledge Deficit Goal: Patient/family/caregiver demonstrates understanding of disease process, treatment plan, medications, and discharge instructions Outcome: Not Progressing Problem: Knowledge Deficit Goal: Patient/family/caregiver demonstrates understanding of disease process, treatment plan, medications, and discharge instructions Outcome: Progressing Problem: Potential for Compromised Skin Integrity Goal: Skin Integrity is Maintained or Improved Outcome: Progressing Problem: Urinary Incontinence Goal: Perineal skin integrity is maintained or improved Outcome: Progressing Problem: Safety - Non-violent/Interference with Medical Treatment Restraint Goal: Remains free of injury from restraints (Restraint for Interference with Community Service Officer) Outcome: Progressing Goal: Free from restraint(s) (Restraint for Interference with Community Service Officer) Outcome: Progressing Problem: Problem Interventions Goal: Assess Nutritional Intake Outcome: Progressing Having tachycardia with HR sustaining 140s on monitor. BP-166/109 R-22 T-98.8. she got a dose of IV lopressor 5mg this am and a dose of IV lopressor 2.5mg yesterday evening. She also received 500ml bolus this morning and has her second one running currently. Her temp when she got here was 100. Added PRN Lopressor CXR stable, EKG shows sinus tachycardia Will verify home medications for kecia blockers Takes Toprol 50 mg daily at facility Will start Lopressor 25 mg BID for now. Also re-start home Lisinopril 20 and Norvasc 5 daily Transfer from the units. On IV antibiotics for bone/joint infection. Called [facility]. Admission director is out. Pt was only there for 12 days. Will need a new auth to return. Plan is for 8 weeks of IV antibiotics. Still no response from [facility]. Called and left VM with Sumaya with admissions, making them aware of need for supervisor intermediates antibx and also asking about auth status/need for patient return. PT REMAINS INTUBATED, O2 AT 30%, PRECEDEX DRIP. TF VIA NG. IV ROCEPHIN. ID FOLLOWING FOR FLU A/DISKITIS. THEY ANTICIPATE NEEDING 8 WK IV ATB AND PICC LINE AT DC. NO RESPONSE FROM [facility] IN [facility]. I DID CALL THEM, LEFT MESSAGE FOR ADMISSIONS TO SEE WHAT PT WOULD NEED TO RETURN TO THEIR FACILITY WHEN MEDICALLY READY. Care Management Progress Note Patient remains on T2. Remains intubated, on fent and propofol drips. On going dc planning, pending medical stability. CM to continue to follow. . Length of Stay (Days): 8 GMLOS: 9.6 Problem: Knowledge Deficit Goal: Patient/family/caregiver demonstrates understanding of disease process, treatment plan, medications, and discharge instructions Outcome: Progressing Problem: Potential for Compromised Skin Integrity Goal: Skin Integrity is Maintained or Improved Outcome: Progressing Problem: Urinary Incontinence Goal: Perineal skin integrity is maintained or improved Outcome: Progressing Problem: Safety - Non-violent/Interference with Medical Treatment Restraint Goal: Remains free of injury from restraints (Restraint for Interference with Community Service Officer) Outcome: Progressing Goal: Free from restraint(s) (Restraint for Interference with Community Service Officer) Outcome: Progressing Problem: Knowledge Deficit Goal: Patient/family/caregiver demonstrates understanding of disease process, treatment plan, medications, and discharge instructions Outcome: Progressing Problem: Potential for Compromised Skin Integrity Goal: Skin Integrity is Maintained or Improved Outcome: Progressing Problem: Urinary Incontinence Goal: Perineal skin integrity is maintained or improved Outcome: Progressing Problem: Safety - Non-violent/Interference with Medical Treatment Restraint Goal: Remains free of injury from restraints (Restraint for Interference with Community Service Officer) Outcome: Progressing Flowsheets (Taken 12/18/20241999) Remains free of injury from restraints (restraint for interference with medical and scientific illustrator): Every 2 hours: Monitor safety, psychosocial status, comfort, nutrition and hydration Evaluate the patient's condition at the time of restraint application Goal: Free from restraint(s) (Restraint for Interference with Community Service Officer) Outcome: Progressing Flowsheets (Taken 12/18/20241999) Free from restraint(s) (restraint for interference with medical and scientific illustrator): Assess and document the continuing need for restraints Identify and implement measures to help patient regain control Problem: Knowledge Deficit Goal: Patient/family/caregiver demonstrates understanding of disease process, treatment plan, medications, and discharge instructions Outcome: Not Progressing Problem: Potential for Compromised Skin Integrity Goal: Skin Integrity is Maintained or Improved Outcome: Not Progressing Problem: Urinary Incontinence Goal: Perineal skin integrity is maintained or improved Outcome: Not Progressing Problem: Safety - Non-violent/Interference with Medical Treatment Restraint Goal: Remains free of injury from restraints (Restraint for Interference with Community Service Officer) Outcome: Not Progressing Flowsheets (Taken 12/18/2024 08) Remains free of injury from restraints (restraint for interference with medical and scientific illustrator): Every 2 hours: Monitor safety, psychosocial status, comfort, nutrition and hydration Evaluate the patient's condition at the time of restraint application Goal: Free from restraint(s) (Restraint for Interference with Community Service Officer) Outcome: Not Progressing Flowsheets (Taken 12/18/2024799) Free from restraint(s) (restraint for interference with medical and scientific illustrator): Assess and document the continuing need for restraints Identify and implement measures to help patient regain control Problem: Knowledge Deficit Goal: Patient/family/caregiver demonstrates understanding of disease process, treatment plan, medications, and discharge instructions Outcome: Not Progressing Problem: Potential for Compromised Skin Integrity Goal: Skin Integrity is Maintained or Improved Outcome: Not Progressing Problem: Urinary Incontinence Goal: Perineal skin integrity is maintained or improved Outcome: Not Progressing Problem: Safety - Non-violent/Interference with Medical Treatment Restraint Goal: Remains free of injury from restraints (Restraint for Interference with Community Service Officer) Outcome: Not Progressing Flowsheets (Taken 12/18/2024799) Remains free of injury from restraints (restraint for interference with medical and scientific illustrator): Every 2 hours: Monitor safety, psychosocial status, comfort, nutrition and hydration Evaluate the patient's condition at the time of restraint application Goal: Free from restraint(s) (Restraint for Interference with Community Service Officer) Outcome: Not Progressing Flowsheets (Taken 12/18/2024799) Free from restraint(s) (restraint for interference with medical and scientific illustrator): Assess and document the continuing need for restraints Identify and implement measures to help patient regain control 12/18/24 7042 Rapid Rounds Attendance Mechanical Development Engineer Planned Discharge Disposition Snf Today we still await Clinical stability Additional Comments: Return to [facility] Care Management Progress Note Remains on Vent. Continues IV ATB course. Infectious Disease following cultures. Plan is return to [facility] when medically stable. Length of Stay (Days): 5 GMLOS: No GMLOS Documented Problem: Knowledge Deficit Goal: Patient/family/caregiver demonstrates understanding of disease process, treatment plan, medications, and discharge instructions Outcome: Progressing Problem: Potential for Compromised Skin Integrity Goal: Skin Integrity is Maintained or Improved Outcome: Progressing Problem: Urinary Incontinence Goal: Perineal skin integrity is maintained or improved Outcome: Progressing Problem: Safety - Non-violent/Interference with Medical Treatment Restraint Goal: Remains free of injury from restraints (Restraint for Interference with Community Service Officer) Outcome: Progressing Flowsheets (Taken 12/17/20241999) Remains free of injury from restraints (restraint for interference with medical and scientific illustrator): Every 2 hours: Monitor safety, psychosocial status, comfort, nutrition and hydration Inform patient/family regarding the reason for restraint Goal: Free from restraint(s) (Restraint for Interference with Community Service Officer) Outcome: Progressing Flowsheets (Taken 12/17/20241999) Free from restraint(s) (restraint for interference with medical and scientific illustrator): Assess and document the continuing need for restraints Care Management Progress Note Remains on Vent. Continues IV ATB course. Infectious Disease following. Plan is return to [facility] when medically stable. Length of Stay (Days): 4 GMLOS: No GMLOS Documented Patient arrived to CT department from T2 accompanied by T2 RN and T2 Respiratory therapist for CT guided L5-S1 bone biopsy. Dr. Romana Hogan in to discuss procedure with patient and informed consent obtained via phone with patient's legal guardian. A pre-procedure timeout was performed to verify correct patient and correct procedure, as well as to discuss patients labs, vitals, history, and allergies. Patient assisted to CT table and placed left side lying down. rag production worker on. Core needle biopsies obtained. Bandaid applied to site. Patient tolerated procedure well. Report called to T2 RN and patient transferred to T2 via patient transport, accompanied by T2 RN and T2 Respiratory therapist. Care Management Progress Note Remains on Vent. -Bone Bx pending. Continues IV ATB course. Infectious Disease following cultures. Plan is return to [facility] when medically stable. Length of Stay (Days): 3 GMLOS: No GMLOS Documented Problem: Knowledge Deficit Goal: Patient/family/caregiver demonstrates understanding of disease process, treatment plan, medications, and discharge instructions Outcome: Not Progressing Problem: Potential for Compromised Skin Integrity Goal: Skin Integrity is Maintained or Improved Outcome: Progressing Problem: Urinary Incontinence Goal: Perineal skin integrity is maintained or improved Outcome: Progressing Problem: Safety - Non-violent/Interference with Medical Treatment Restraint Goal: Remains free of injury from restraints (Restraint for Interference with Community Service Officer) Outcome: Progressing Goal: Free from restraint(s) (Restraint for Interference with Community Service Officer) Outcome: Progressing Problem: Potential for Compromised Skin Integrity Goal: Nutritional status is improving Outcome: Completed Care Management Progress Note Remains on Vent. Continues IV ATB course. 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 Length of Stay (Days): 2 GMLOS: No GMLOS Documented Return referral placed to [facility] per TCC request. Await review and response regarding ability to accept. TCC notified. Care Management Progress Note Admit to T2 Acute respiratory failure. Vented/ Propofol continuous. Continues IV ATB course. Patient from [facility]. Per Patients primary contact. Plan is for patient to return to [facility] at [place]. [facility]. Length of Stay (Days): 1 GMLOS: No GMLOS Documented Problem: Knowledge Deficit Goal: Patient/family/caregiver demonstrates understanding of disease process, treatment plan, medications, and discharge instructions Outcome: Progressing Problem: Potential for Compromised Skin Integrity Goal: Skin Integrity is Maintained or Improved Outcome: Progressing Problem: Urinary Incontinence Goal: Perineal skin integrity is maintained or improved Outcome: Progressing Problem: Safety - Non-violent/Interference with Medical Treatment Restraint Goal: Remains free of injury from restraints (Restraint for Interference with Community Service Officer) Outcome: Progressing Goal: Free from restraint(s) (Restraint for Interference with Community Service Officer) Outcome: Progressing Problem: Potential for Compromised Skin Integrity Goal: Nutritional status is improving Outcome: Not Progressing CCU fellow was asked for an urgent bedside echocardiogram for the following indications: pericardial effusion seen on CT chest Bedside Echocardiogram Left ventricle size is normal. LV systolic function is preserved. LVEF by visual estimation is 60 %. No regional wall motion. Right ventricle size is moderate. RV systolic function is preserved. There are no findings of diastolic collapse. Aortic Valve and Mitral valve appear grossly normal. IVC is normal and not collapsible. Patient is mechanically ventilated There is a medium sized pericardial effusion measuring 1.0 cm in diastole. Patient is hemodynamically stable and not requiring any pressors at this time. Formal echocardiogram ordered. David Serrano MD Fellow, Cardiovascular Disease, PGY-4 documented in this encounter [facility] 12-30-2024 Hospital Discharg e instructions Neli Mares RN - 12/30/2024 11:41 AM EDT Images from the original note were not included. Continuity of Care Form Patient Name: Claritza Burton : 1945 Admit date: 12/13/2024 Discharge date: 12/31/24 Code Status Order: DNR-CCA Advance Directives: N Admitting Physician: Noni Levine MD PCP: JENARO AYERS MD Discharging Nurse: KHANH Quinteros Discharging Hospital Unit/Room#: T2-212/T2-212 A Discharging Unit Emergency Contact: Extended Emergency Contact Information Primary Emergency Contact: Key Dickinson Relation: Relative Secondary Emergency Contact: Kadi Dickinson Relation: Sibling Past Surgical History: Past Surgical History: Procedure Laterality Date BLADDER SURGERY 2009 EYE SURGERY cataract HIP FRACTURE SURGERY Left 2000 HYSTERECTOMY ORTHOPEDIC SURGERY TONSILLECTOMY (HISTORICAL) Immunization History: Immunization History Administered Date(s) Administered COVID-19, mRNA, LNP-S, PF, saul-sucrose, 30 mcg/0.3 mL 07/17/2023 Pfizer SARS-CoV-2 Vaccination 12/05/2020, 12/27/2020, 07/26/2021 Active Problems: Medical Problems Problem List * (Principal) Acute hypoxemic respiratory failure (HCC) Essential hypertension Heart palpitations Other cerebral palsy (HCC) History of bladder cancer Age-related osteoporosis without current pathological fracture Isolation/Infection: No active isolations No active infections Nurse Assessment: Last Vital Signs: BP (!) 115/102 (BP Location: Right arm, Patient Position: Lying) Pulse 106 Temp 36.8 C (98.2 F) (Temporal) Resp 21 Ht 1.626 m (5' 4.02") Wt 47.4 kg (104 lb 9 oz) SpO2 100% BMI 17.94 kg/m Last documented pain score (0-10 scale): Last Weight: Wt Readings from Last 1 Encounters: 12/30/24 47.4 kg (104 lb 9 oz) Mental Status: JOAO Patient Mental Status: disoriented and alert IV Access: JOAO IV Access: PICC - site: upper arm left, condition patent and no redness, insertion date: Nursing Mobility/ADLs: Walking Total assistance Transfer Total assistance Bathing Total assistance Dressing Total assistance Toileting Total assistance Feeding Total assistance E Commerce Architect Total assistance Med Delivery yes Wound Care Documentation and Therapy: Wound/Incision 12/17/24 Pressure Injury Coccyx (Active) Wound Image 12/17/24 0100 Site Assessment Red 12/30/24 0800 Rubia-Wound Assessment Clean;Dry;Fragile;Red 12/29/24 0400 Odor None 12/30/24 0800 Drainage Amount None 12/30/24 0800 Treatments Pharmaceutical agent 12/29/24 0400 Primary Dressing Foam 12/30/24 0800 Dressing Status Clean, dry & intact 12/30/24 0800 Number of days: 13 Elimination: Continence: Bowel: no Bladder: yes Urinary Catheter: Puentes, Insertion date: 12/26/24 Colostomy/Ileostomy/Ileal Conduit: None Date of Last BM: 12/30/24 Intake/Output Summary (Last 24 hours) at 12/30/2024 1139 Last data filed at 12/30/2024 0600 Gross per 24 hour Intake 2211 ml Output 1200 ml Net 1011 ml I/O last 3 completed shifts: In: 3198 (67.4 mL/kg) [I.V.:1430 (30.2 mL/kg); NG/GT:1768] Out: 3200 (67.5 mL/kg) [Urine:3200 (1.9 mL/kg/hr)] Weight: 47.4 kg Safety Concerns: aspiration risk Impairments/Disabilities: none Nutrition Therapy: Current Nutrition Therapy: Tube feedings: Vital 1.5 at 40cc/ hour continuously, Free water flush of 50cc every 4 hours Routes of Feeding: gastrostomy tube, NPO Liquids: no liquids Daily Fluid Restriction: no Last Modified Barium Swallow with Video (Video Swallowing Test): {done not done:43157} Treatments at the Time of Hospital Discharge: Respiratory Treatments: Oxygen Therapy: is not on home oxygen therapy. Ventilator: No ventilator support Rehab Therapies: physical therapy, occupational therapy, and speech therapy Weight Bearing Status/Restrictions: weight bearing as tolerated Other Medical Equipment (for information only, NOT a DME order): none Other Treatments: Patient's personal belongings (please select all that are sent with patient): none RN SIGNATURE: MANAGEMENT/SOCIAL WORK SECTION Inpatient Status Date: 12/13/2024 Discharging to Facility/ Agency Name: [email or web address] [address], [place] [address] [address] Mechanical Development Engineer/Paper Pattern Folder signature: ICIAN SECTION Name: Claritza Burton Prognosis: excellent Condition at Discharge: stable Rehab Potential (if transferring to Rehab): excellent Recommended Labs or Other Treatments After Discharge: The individual is being admitted to a nursing facility directly from an [facility] or a unit of a [facility] that is not operated by or licensed by [facility] under section 5119.14 or 5160-3-15.1 5 The individual requires the level of services provided by a nursing facility for the condition for which he or she was treated in the hospital and, Physician Certification: I certify the above information and transfer of Claritza Burton is necessary for the continuing treatment of the diagnosis listed and that she requires half-way facility for less than 30 days. Update Admission H&P: No change in H&P PHYSICIAN SIGNATURE: The following attachments cannot be sent through Care Everywhere.Respiratory Distress Syndrome Discharge Instructions, Adult (Thai)documented in this encounter [facility] 12-30-2024 Note Care Management Prog ress Note Updated Legal Guardian - Kadi maldonado SNF acceptance to [facility]. Auth intitiated. PICC placement today. Length of Stay (Days): 17 GMLOS: 9.6 [facility] 12-30-[address] [facility] 12-30-2024 Procedure note Associated Ord er(s): PICC Insertion/Replacement Post-Procedure Diagnose(s): Infection of spine (HCC) PICC Insertion/Replacement Date/Time: 12/30/2024 11:33 AM Performed by: DOM Dawn CNP Authorized by: DOM Dawn CNP Consent: The indications, risks, benefits, alternatives to the procedure were explained to the patient/surrogate decision maker and their questions answered. Consent was obtained to proceed with the procedure. Timeout: Completed immediately prior to the start of the procedure which included verification of the correct patient, correct site and agreement on the procedure to be done. Indications: Indications: Long-term antibiotics Anesthetic: Local anesthetic used: lidocaine without epinephrine Procedure details: Preparation: Skin prepped with chlorhexidine Skin prep agent dried: Skin prep agent completely dried prior to procedure Sterile barriers: All five maximal sterile barriers used - gloves, gown, cap, mask and large sterile sheet Hand hygiene: Hand hygiene performed prior to central venous catheter insertion Sterile technique: Sterile technique maintained throughout procedure. Site prior to insertion: Benign Procedure type: Insertion Orientation: left Location: Brachial Catheter type: Double lumen Catheter size: 5 Fr Lot #: [id number] Trimmed at (cm): 41 Inserted at (cm): 41 Ultrasound guidance: Yes Post-procedure: Post-procedure: Antimicrobial dressing applied and securement device Description/Findings: Flushes easily and blood returned Estimated blood loss: < 5 mL Specify complication(s): No apparent complications Follow-up chest x-ray: Ordered Cosigned by DOM Dawn CNP at 12/30/2024 4:13 PM EDT Associated Order(s): Arterial Line Insertion Post-Procedure Diagnose(s): Acute hypoxemic respiratory failure (HCC) Arterial Line Insertion Date/Time: 12/27/2024 3:00 PM Performed by: DOM Boswell CNP Authorized by: DOM Boswell CNP Consent: The indications, risks, benefits, alternatives to the procedure were explained to the patient/surrogate decision maker and their questions answered. Consent was obtained to proceed with the procedure. Timeout: Completed immediately prior to the start of the procedure which included verification of the correct patient, correct site and agreement on the procedure to be done. Indications: Indications: multiple ABGs and hemodynamic monitoring Anesthetic: Local anesthetic used: lidocaine without epinephrine Preparation: Patient was prepped and draped in usual sterile fashion. Skin prepped: skin prepped with chlorhexidine Procedure Details: Orientation: left Location: radial Nikos's test normal: yes Number of attempts: 1 Post-Procedure: Post-procedure: line sutured and antimicrobial dressing applied Description/Findings: Bright red pulsatile blood return noted and Waveform confirmed Estimated blood loss: none Complications: No apparent complications Assistants & Supervision: I personally performed the procedure documented as signed by this procedure note [employer](s): N/A Cosigned by Valentina Kerr MD at 12/27/2024 7:40 PM EDT documented in this encounter [facility] 12-29-2024 Note guardian called and asked if a referral could be sent to the [facility] in [place]. Referral made. [facility] 12-28-2024 Consult note Associated Order (s): IP WOUND CARE NURSE CONSULT TO EVAL; INPATIENT CONSULT TO WOUND CARE PROVIDERS Images from the original note were not included. [facility] Wound Care progress Note Claritza Burton AGE: 79 y.o. GENDER: female : 1945 Subjective: HISTORY of PRESENT ILLNESS HPI Claritza Burton is a 79 y.o. female who presents for a wound care follow up. HPI: Ms. Burton is a 79 yo F PMH cerebral palsy, PE/DVT on Eliquis, aspiration, esophagitis s/p PEG, recent hospitalizations for parainfluenza, hyponatremia, influenza A and Strep bacteremia who presented to [place] ED with acute respiratory failure with concerns for pulmonary edema. Wound Care consulted for pressure injury Patient resting in bed. PAST MEDICAL HISTORY Past Medical History: Diagnosis Date Anxiety Cancer (CMS/HCC) (HCC) Cerebral palsy ([facility]) 1946 Frequent urination Headache Hypertension Palpitations PAST SURGICAL HISTORY Past Surgical History: Procedure Laterality Date BLADDER SURGERY 2009 EYE SURGERY cataract HIP FRACTURE SURGERY Left 2000 HYSTERECTOMY ORTHOPEDIC SURGERY TONSILLECTOMY (HISTORICAL) FAMILY HISTORY Family History Problem Relation Name Age of Onset Cancer Mother Diabetes Father SOCIAL HISTORY Social History Tobacco Use Smoking status: Never Smokeless tobacco: Never Substance Use Topics Alcohol use: No Drug use: No ALLERGIES Allergies Allergen Reactions Amantadine Palpitations Other Reaction(s): Racing heart Amoxicillin-Pot Clavulanate Palpitations Other Reaction(s): Racing heart Amoxicillin Unknown Erythromycin Palpitations Other Reaction(s): Racing heart Erythromycin Base Unknown Lorazepam Anxiety Restlessness MEDICATIONS No current facility-administered medications on file prior to encounter. Current Outpatient Medications on File Prior to Encounter Medication Sig Dispense Refill acetaminophen (Tylenol) 325 MG tablet 325 mg by Per G Tube route every 4 hours as needed for mild pain (1-3). For 14 days end 12/26/2024 amLODIPine (Norvasc) 5 MG tablet Take 5 mg by mouth daily. apixaban (Eliquis) 5 MG tablet 5 mg by Per G Tube route 2 times daily. cholecalciferol (Vitamin D3) 25 MCG (1000 UT) tablet 1,000 Units by Per G Tube route daily. dextran 70-hypromellose (artificial tears) 0.1-0.3 % ophthalmic solution Administer 2 drops into both eyes 3 times daily. ferrous sulfate 325 (65 Fe) MG tablet 325 mg by Per G Tube route 2 times daily. lisinopril 20 MG tablet 20 mg by Per G Tube route daily. metoprolol succinate XL (Toprol-XL) 50 MG 24 hr tablet Take 50 mg by mouth daily. Do not crush or chew. metoprolol tartrate (Lopressor) 25 MG tablet 25 mg by Per G Tube route 2 times daily. polyethylene glycol, PEG, 3350 (Miralax) 17 g packet 17 g daily. Via PEG TUBE pregabalin (Lyrica) 50 MG capsule 50 mg by Per G Tube route 3 times daily. risperiDONE (RisperDAL) 0.5 MG tablet 0.5 mg by Per G Tube route Nightly. AT BEDTIME senna-docusate sodium (Senokot-S) 8.6-50 MG tablet 1 tablet by Per G Tube route 2 times daily. tamsulosin (Flomax) 0.4 MG 24 hr capsule Take 0.4 mg by mouth daily. VIA PEG TUBE REVIEW OF SYSTEMS Pertinent items are noted in HPI. Objective: BP 148/76 Pulse 96 Temp 37.6 C (99.6 F) (Temporal) Resp (!) 29 Ht 5' 4.02" (1.626 m) Wt 99 lb 6.8 oz (45.1 kg) SpO2 99% BMI 17.06 kg/m PHYSICAL EXAM General appearance: in no apparent distress, moderately ill, and toxic Skin: warm and dry Pulmonary: no distress Abdomen: soft, nontender, and nondistended Sacrum: resolved 12/27/24 LABS CBC: Lab Results Component Value Date WBC 10.8 (H) 12/28/2024 HGB 8.7 (L) 12/28/2024 HGB 10.1 12/26/2024 HCT 27.5 (L) 12/28/2024 MCV 91.4 12/28/2024 PLT 434 12/28/2024 BMP: Lab Results Component Value Date NA 135 (L) 12/28/2024 K 3.8 12/28/2024 CL 106 12/28/2024 CO2 21 (L) 12/28/2024 BUN 16 12/28/2024 CREATININE 0.46 (L) 12/28/2024 PT/INR: No results found for: "PROTIME", INR Prealbumin: No results found for: "PREALBUMIN" Albumin:No components found for: LABALBU Sed Rate:No results found for: SEDRATE Micro: No components found for: BC Assessment/Plan: Nursing staff to perform dressing change: Sacrum: Unstageable Pressure Injury -resolved -Cleanse area soap and water apply E.T. mix PRN -Envella -waffle chair cushion -Q2hr/PRN turns -glide sheets for T&R -continence checks Q1-2 Hrs/PRN Nutritional support Wound Care to sign off services. Please re-consult for future wound care needs. Recommend to follow up at [facility] wound care center after hospital discharge. Any questions or concerns please secure chat "ACH wound/ostomy". Thank you for the consult! I personally obtained the lamb and critical portions of the history and physical exam. I reviewed the labs, imaging studies, and electronic medical record. I reviewed the chart documentation and discussed the patient with treatment team members. I have edited the note to reflect my clinical findings and my assessment and plan. Please note, the time of this note does not reflect the time I saw this patient today, but the time of this documentaton. Portions of this note including HPI, ROS, impression/plan, and examination may have been copied forward from admission to today as to provide important historical information essential in contributing to medical decision making. Documentation has been reviewed and edited as necessary to support clinical decision making for today's visit and to reflect my own independent evaluation of this patient. Decision making for today's visit and to reflect my own independent evaluation of this patient. Cosigned by Sunil Irvin DO at 12/28/2024 4:36 PM EDT Images from the original note were not included. Pharmacy Managed Vancomycin Dosing Service Consult Note Consult Date: 12/26/24 Patient Name: Claritza Burton Allergies: Amantadine, Amoxicillin-pot clavulanate, Amoxicillin, Erythromycin, Erythromycin base, and Lorazepam Age: 79 y.o. Sex: female Estimated body mass index is 18.5 kg/m as calculated from the following: Height as of this encounter: 1.626 m (5' 4.02"). Weight as of this encounter: 48.9 kg (107 lb 12.9 oz). DW: 48.9 kg Lab Results Component Value Date CREATININE 0.53 (L) 12/25/2024 CREATININE 0.50 (L) 12/24/2024 BUN 14 12/25/2024 BUN 14 12/24/2024 WBC 8.7 12/25/2024 WBC 10.9 (H) 12/24/2024 Calculated CrCl: 68.6 mL/min (Cockcroft-Gault) Consulted By: Dr. Vila Infectious Diagnosis: sepsis (AUC Goal 400-600 mg/L*hr) Random Vancomycin Level Due: 12/26/24 Antimicrobials: Patient recently received an antibiotic (last 12 hours) Date/Time Action Medication Dose Rate 12/25/24 1802 New Bag cefTRIAXone (Rocephin) 2,000 mg in sodium chloride 0.9 % 50 mL IVPB Mini-Bag Plus 2,000 mg 100 mL/hr Assessment/Plan: Doses, serum creatinine, and vancomycin levels interfaced automatically to [employer] and data has been analyzed and interpreted. Start Vancomycin 1250 mg every 24 hours based on patient age, weight, renal function, and infectious diagnosis (25 mg/kg). Predicted AUC = 500 mg/L*hr (goal 400-600 mg/L*hr) PAUC = 98% (probability that AUC is >400 mg/L*hr) Pconc = 0% (probability that Ctrough is above 20 mcg/mL (toxicity)) Will assess random level on 12/26/24 and adjust as appropriate. Trend serum creatinine. Orders placed. Thank you for this consult. Please secure text or call with questions. DATE: 12/26/24 TIME: 1:34 AM Khadra Rubio RPh Clinical Pharmacist Available via Secure Chat Associated Order(s): IP WOUND CARE NURSE CONSULT TO EVAL Images from the original note were not included. [facility] Wound Care CONSULT Note Claritza Burton AGE: 79 y.o. GENDER: female : 1945 Subjective: HISTORY of PRESENT ILLNESS HPI Claritza Burton is a 79 y.o. female who presents for a wound consult. HPI: 79 yo F PMH cerebral palsy, PE/DVT on Eliquis, aspiration, esophagitis s/p PEG, recent hospitalizations for parainfluenza, hyponatremia, influenza A and Strep bacteremia who presented to [place] ED with acute respiratory failure with concerns for pulmonary edema. Wound Care consulted for pressure injury Patient resting in bed, intubated, sedated and in soft wrist restraints. PAST MEDICAL HISTORY Past Medical History: Diagnosis Date Anxiety Cancer (CMS/HCC) ([facility]) Cerebral palsy ([facility]) 1946 Frequent urination Headache Hypertension Palpitations PAST SURGICAL HISTORY Past Surgical History: Procedure Laterality Date BLADDER SURGERY 2009 EYE SURGERY cataract HIP FRACTURE SURGERY Left 2000 HYSTERECTOMY ORTHOPEDIC SURGERY TONSILLECTOMY (HISTORICAL) FAMILY HISTORY Family History Problem Relation Name Age of Onset Cancer Mother Diabetes Father SOCIAL HISTORY Social History Tobacco Use Smoking status: Never Smokeless tobacco: Never Substance Use Topics Alcohol use: No Drug use: No ALLERGIES Allergies Allergen Reactions Ativan [Lorazepam] Augmentin [Amoxicillin-Pot Clavulanate] Erythromycin Symmetrel [Amantadine] MEDICATIONS No current facility-administered medications on file prior to encounter. No current outpatient medications on file prior to encounter. REVIEW OF SYSTEMS Pertinent items are noted in HPI. Objective: BP 112/57 Pulse 87 Temp 37.2 C (98.9 F) Resp 17 Ht 1.626 m (5' 4.02") Wt 65.4 kg (144 lb 2.9 oz) SpO2 99% BMI 24.74 kg/m PHYSICAL EXAM General appearance: in no apparent distress and moderately ill Skin: warm and dry Pulmonary: intubated Abdomen: soft, nontender, and nondistended Sacrum: Wound bed with slough, pink tissue and dry peeling skin. Area nonblanchable. Rubia wound intact with blanchable erythema. 12/17/24 LABS CBC: Lab Results Component Value Date WBC 12.6 (H) 12/17/2024 HGB 7.6 12/17/2024 HGB 7.6 (L) 12/17/2024 HCT 23.7 (L) 12/17/2024 MCV 91.5 12/17/2024 PLT 423 12/17/2024 BMP: Lab Results Component Value Date NA 138 12/17/2024 K 4.3 12/17/2024 CL 107 12/17/2024 CO2 23 12/17/2024 PHOS 2.6 12/17/2024 BUN 19 12/17/2024 CREATININE 0.49 (L) 12/17/2024 PT/INR: Lab Results Component Value Date PROTIME 13.6 (H) 12/16/2024 INR 1.2 (H) 12/16/2024 Prealbumin: No results found for: "PREALBUMIN" Albumin:No components found for: LABALBU Sed Rate:No results found for: SEDRATE Micro: No components found for: BC Assessment/Plan: Nursing staff to perform dressing change: Sacrum: Unstageable Pressure Injury -Cleanse area soap and water apply E.T. mix TID and PRN -Envella -waffle chair cushion -Q2hr/PRN turns -glide sheets for T&R -continence checks Q1-2 Hrs/PRN Nutritional support Wound Care to follow Recommend to follow up at [facility] wound care center after hospital discharge. Any questions or concerns please secure chat "ACH wound/ostomy". Thank you for the consult! I personally obtained the lamb and critical portions of the history and physical exam. I reviewed the labs, imaging studies, and electronic medical record. I reviewed the chart documentation and discussed the patient with treatment team members. I have edited the note to reflect my clinical findings and my assessment and plan. Please note, the time of this note does not reflect the time I saw this patient today, but the time of this documentaton. Portions of this note including HPI, ROS, impression/plan, and examination may have been copied forward from admission to today as to provide important historical information essential in contributing to medical decision making. Documentation has been reviewed and edited as necessary to support clinical decision making for today's visit and to reflect my own independent evaluation of this patient. Decision making for today's visit and to reflect my own independent evaluation of this patient. Cosigned by Sunil Irvin DO at 12/21/2024 2:29 PM EDT Associated Order(s): IP CONSULT TO INFECTIOUS DISEASES Images from the original note were not included. [facility] - Infectious Diseases Attending Consult Note Reason for Consult: L5-S1 discitis History of Present Illness: 79 yo W with h/o bladder cancer in remission, per notes, CP, HTN, h/o PE/DVT on eliquis, aspiration, esophagitis, s/p PEG who was admitted 12/13 to the ICU as a transfer from [facility] where she presented from her SNF with hypoxia with O2 sats in the 60s.. Pt was intubated in the [place] ED and diuresed. She was given clindamycin and levofloxacin. Pt remains intubated and cannot contribute to the history which is obtained from the EMR. Pt was febrile to 102F. Pt is flu A positive. Further work up revealed L5-S1 vertebral osteomyelitis and discitis. Pt is currently on pressors. Pt was evaluated by Ortho Spine. Plan for CT guided biopsy is pending and planned for this afternoon. Pt is on empiric vanc, cefepime, flagyl. She is also on oseltmavir for influenza. Past Medical History: Past Medical History: Diagnosis Date Anxiety Cancer (CMS/HCC) (HCC) Cerebral palsy (HCC) [birth year] Frequent urination Headache Hypertension Palpitations Past Surgical History: Past Surgical History: Procedure Laterality Date BLADDER SURGERY 2009 EYE SURGERY cataract HIP FRACTURE SURGERY Left 2000 HYSTERECTOMY ORTHOPEDIC SURGERY TONSILLECTOMY (HISTORICAL) Current Medications: Current Facility-Administered Medications Medication Dose Route Frequency Provider Last Rate Last Admin bisacodyl (Dulcolax) suppository 10 mg 10 mg Rectal BID Romaine Larkin DO 10 mg at 12/16/24 0619 calcium gluconate 4,000 mg in sodium chloride 0.9 % 100 mL IVPB 4,000 mg IntraVENous Once Keely Kelsey Juana Vo, DO 25 mL/hr at 12/16/24 0619 4,000 mg at 12/16/24 0619 cefepime (Maxipime) 2,000 mg in sodium chloride 0.9 % 50 mL IVPB Mini-Bag Plus 2,000 mg IntraVENous q8h Keely Kelsey Juana Vo, DO Stopped at 12/16/24 0316 chlorhexidine (Hibiclens) 4 % solution Topical Daily Keely Kelsey Juana Vo, DO Given at 12/15/24 2344 fentaNYL (Sublimaze) 1000 mcg in sodium chloride 0.9 % 100 mL 10 mcg/mL infusion 25-200 mcg/hr IntraVENous Continuous Keely Kelsey Juana Vo, DO 2.5 mL/hr at 12/16/24 0727 25 mcg/hr at 12/16/24 0727 fentaNYL (Sublimaze) injection 25 mcg 25 mcg IntraVENous q2h PRN Keely Kelsey Juana Vo, DO fentaNYL (Sublimaze) injection 50 mcg 50 mcg IntraVENous q2h PRN Keely Kelsey Juana Vo, DO flumazenil (Romazicon) injection 0.2 mg 0.2 mg IntraVENous Once PRN Keely Kelsey Juana Vo, DO [Held by provider] heparin 25,000 units in dextrose 5% 250mL infusion (premix) 5-30 Units/kg/hr IntraVENous Continuous Keely Kelsey Juana Vo, DO Stopped at 12/16/24 0739 heparin injection 2,680 Units 40 Units/kg IntraVENous PRN Keely Kelsey Juana Vo, DO 2,680 Units at 12/15/24 1006 heparin injection 5,360 Units 80 Units/kg IntraVENous PRN Keely Kelsey Juana Vo, DO metroNIDAZOLE (Flagyl) IVPB 500 mg 500 mg IntraVENous q8h Keely Kelsey Juana Vo, DO Stopped at 12/16/24 0909 midazolam (Versed) injection 1 mg 1 mg IntraVENous q2h PRN [facility] Juana Vo, DO midazolam (Versed) injection 2 mg 2 mg IntraVENous q2h PRN [facility] Vo, DO mupirocin (Bactroban) 2 % ointment 1 Application 1 Application Nasal BID [facility] , DO 1 Application at 12/16/24 0811 naloxone (Narcan) injection 0.4 mg 0.4 mg IntraVENous Once PRN [facility] , DO norepinephrine (Levophed) infusion 16 mg in 0.9 % sodium chloride 250 mL (Lvn-Vyubeg-Aevxi) (premix) 1-100 mcg/min IntraVENous Continuous Jenaro Alamo, DO Stopped at 12/16/24 0405 ondansetron ODT (Zofran-ODT) disintegrating tablet 4 mg 4 mg Oral q8h PRN [facility] , DO Or ondansetron (Zofran) injection 4 mg 4 mg IntraVENous q6h PRN [facility] , DO oseltamivir (Tamiflu) capsule 75 mg 75 mg Per G Tube BID [facility] , DO pantoprazole (ProtoNix) EC tablet 40 mg 40 mg Oral Nightly [facility] , DO Or pantoprazole (ProtoNix) 40 mg in sodium chloride (PF) 0.9 % 10 mL injection 40 mg IntraVENous Nightly [facility] , DO 40 mg at 12/15/24 2107 polyethylene glycol (PEG) 3350 (Miralax) packet 17 g 17 g Per G Tube Daily [facility] , DO 17 g at 12/16/24 0813 propofol (Diprivan) infusion 5-50 mcg/kg/min IntraVENous Continuous [facility] , DO 8.04 mL/hr at 12/16/24 0500 20 mcg/kg/min at 12/16/24 0500 senna-docusate sodium (Senokot-S) 8.6-50 MG tablet 2 tablet 2 tablet Per G Tube Daily [facility] , DO 2 tablet at 12/16/24 0813 sodium chloride 0.9 % infusion 5-250 mL/hr IntraVENous PRN Keely Kelsey Juana Vo, DO sodium chloride 0.9% (NS) flush 5-40 mL 5-40 mL IntraCATHeter q8h Keely Kelsey Juana Vo, DO 10 mL at 12/16/24 0545 sodium chloride 0.9% (NS) flush 5-40 mL 5-40 mL IntraVENous PRN Keely Kelsey Juana Vo, DO vancomycin IVPB 1500 mg in 250 mL NS (premix) 1,500 mg IntraVENous q24h Keely Kelsey Juana Vo, DO Stopped at 12/16/24 0557 Allergies: Allergies Allergen Reactions Ativan [Lorazepam] Augmentin [Amoxicillin-Pot Clavulanate] Erythromycin Symmetrel [Amantadine] Social History: Social History Socioeconomic History Marital status: Single Spouse name: Not on file Number of children: Not on file Years of education: Not on file Highest education level: Not on file Occupational History Not on file Tobacco Use Smoking status: Never Smokeless tobacco: Never Substance and Sexual Activity Alcohol use: No Drug use: No Sexual activity: Not on file Other Topics Concern Not on file Social History Narrative Not on file Social Drivers of Health Financial Resource Strain: Not on file Food Insecurity: Not on file Transportation Needs: Not on file Physical Activity: Not on file Stress: Not on file Social Connections: Not on file Intimate Partner Violence: Not on file Housing Stability: Not on file Family History: Family History Problem Relation Name Age of Onset Cancer Mother Diabetes Father Review of Systems: Review of Systems Unable to perform ROS: Intubated Vitals: Patient Vitals for the past 24 hrs: BP Temp Temp src Pulse Resp SpO2 12/16/24 0800 104/54 -- -- 90 21 100 % 12/16/24 0700 104/55 36.3 C (97.4 F) Temporal 87 19 100 % 12/16/24 0656 -- -- -- 88 20 100 % 12/16/24 0630 100/55 -- -- (!) 121 18 100 % 12/16/24 0629 -- -- -- (!) 121 18 -- 12/16/24 0615 99/54 -- -- (!) 121 18 100 % 12/16/24 0600 (!) 98/49 -- -- 88 16 100 % 12/16/24 0545 110/55 -- -- 88 17 100 % 12/16/24 0530 110/56 -- -- 91 17 100 % 12/16/24 0515 115/58 -- -- 91 18 100 % 12/16/24 0500 113/65 -- -- 92 16 100 % 12/16/24 0445 109/56 -- -- 91 14 100 % 12/16/24 0430 106/53 -- -- 90 17 100 % 12/16/24 0415 108/54 -- -- 87 17 100 % 12/16/24 0400 116/66 36.9 C (98.4 F) Temporal 92 18 100 % 12/16/24 0345 116/67 -- -- 120 16 100 % 12/16/24 0330 112/62 -- -- 120 17 100 % 12/16/24 0315 106/51 -- -- 85 20 100 % 12/16/24 0309 -- -- -- 85 20 100 % 12/16/24 0300 111/52 -- -- 85 16 100 % 12/16/24 0245 109/52 -- -- 84 18 100 % 12/16/24 0230 107/53 -- -- 82 18 100 % 12/16/24 0215 108/54 -- -- 82 20 100 % 12/16/24 0200 110/55 -- -- 82 17 100 % 12/16/24 0145 95/51 -- -- 84 22 100 % 12/16/24 0130 93/53 -- -- 81 17 100 % 12/16/24 0115 (!) 98/49 -- -- 82 18 100 % 12/16/24 0100 105/61 -- -- (!) 121 18 100 % 12/16/24 0045 101/58 -- -- (!) 122 17 100 % 12/16/24 0030 95/50 -- -- 84 18 100 % 12/16/24 0015 96/52 -- -- 86 17 100 % 12/16/24 0012 -- -- -- 88 17 99 % 12/16/24 0000 95/50 37 C (98.6 F) Temporal 88 17 99 % 12/15/24 2345 102/53 -- -- 90 17 100 % 12/15/24 2330 119/62 -- -- 89 18 100 % 12/15/24 2329 -- -- -- 86 18 100 % 12/15/24 2315 97/53 -- -- -- -- -- 12/15/24 2300 105/53 -- -- 92 18 100 % 12/15/24 2245 105/56 -- -- (!) 122 16 100 % 12/15/24 2230 103/58 -- -- (!) 121 16 100 % 12/15/24 2215 108/60 -- -- (!) 124 14 100 % 12/15/24 2200 116/60 -- -- (!) 123 15 100 % 12/15/24 2145 123/65 -- -- (!) 123 16 100 % 12/15/24 2130 116/62 -- -- 120 16 100 % 12/15/245 -- -- -- 120 15 100 % 12/15/24 2115 99/50 -- -- 88 17 100 % 12/15/24 2100 121/53 -- -- 90 16 100 % 12/15/245 119/53 -- -- 93 16 100 % 12/15/242029 120/54 -- -- 90 16 100 % 12/15/242014 119/55 -- -- 86 15 100 % 12/15/241999 119/55 36.7 C (98.1 F) Temporal 89 15 100 % 12/15/24 1945 117/55 -- -- 88 13 100 % 12/15/24 1930 118/54 -- -- 89 14 100 % 12/15/24 1915 118/55 -- -- 88 13 100 % 12/15/24 1900 113/56 -- -- 89 14 99 % 12/15/24 1856 -- -- -- 89 14 99 % 12/15/24 1845 125/55 -- -- 90 15 98 % 12/15/24 1830 122/60 -- -- 91 15 98 % 12/15/24 1815 126/57 -- -- 90 15 99 % 12/15/24 1800 129/84 -- -- 92 20 100 % 12/15/24 1636 -- -- -- 86 18 100 % 12/15/24 1630 124/55 -- -- 87 19 100 % 12/15/24 1615 107/54 -- -- 119 17 100 % 12/15/24 1600 135/64 36.7 C (98 F) -- 116 17 100 % 12/15/24 1545 128/62 -- -- 118 15 100 % 12/15/24 1530 128/63 -- -- 116 17 100 % 12/15/24 1525 -- -- -- 117 16 100 % 12/15/24 1515 138/61 -- -- 115 16 100 % 12/15/24 1500 121/55 -- -- 116 18 100 % 12/15/24 1445 112/51 -- -- 85 14 100 % 12/15/24 1430 (!) 106/49 -- -- 79 16 100 % 12/15/24 1415 (!) 112/49 -- -- 80 18 100 % 12/15/24 1400 (!) 111/49 -- -- 82 15 100 % 12/15/24 1345 (!) 99/45 -- -- 80 14 100 % 12/15/24 1330 (!) 101/47 -- -- 80 17 100 % 12/15/24 1315 (!) 102/45 -- -- 80 16 100 % 12/15/24 1300 (!) 105/47 -- -- 82 17 100 % 12/15/24 1245 (!) 104/46 -- -- 82 16 100 % 12/15/24 1230 (!) 101/45 -- -- 82 16 100 % 12/15/24 1215 (!) 111/48 -- -- 83 18 100 % 12/15/24 1200 (!) 109/47 36.7 C (98.1 F) -- 84 20 100 % 12/15/24 1145 (!) 110/48 -- -- 84 20 100 % 12/15/24 1130 120/54 -- -- 86 20 100 % 12/15/24 1125 -- -- -- 84 16 100 % 12/15/24 1115 (!) 107/49 -- -- 84 19 99 % 12/15/24 1100 109/53 -- -- 83 16 100 % 12/15/24 1045 111/57 -- -- 85 18 100 % 12/15/24 1030 110/53 -- -- 87 20 99 % 12/15/24 1015 111/56 -- -- 88 21 99 % 12/15/24 1000 113/52 -- -- 87 19 99 % 12/15/24 0945 120/58 -- -- 84 17 99 % 12/15/24 0930 116/54 -- -- 84 16 100 % 12/15/24 0915 122/61 -- -- 86 15 100 % Physical Exam: Physical Exam Vitals and nursing note reviewed. Constitutional: General: She is not in acute distress. Appearance: She is ill-appearing. She is not toxic-appearing or diaphoretic. Comments: Not arousable, sedated, intubated HENT: Head: Normocephalic and atraumatic. Right Ear: External ear normal. Left Ear: External ear normal. Nose: Nose normal. No rhinorrhea. Mouth/Throat: Comments: +ETT, poor dentition, dry mucosa Eyes: General: Right eye: No discharge. Left eye: No discharge. Cardiovascular: Rate and Rhythm: Regular rhythm. Tachycardia present. Heart sounds: Murmur heard. Pulmonary: Effort: No respiratory distress. Breath sounds: Rales present. No rhonchi. Abdominal: General: There is distension. Palpations: Abdomen is soft. Tenderness: There is no abdominal tenderness. Comments: PEG site ok Musculoskeletal: Right lower leg: Edema present. Left lower leg: Edema present. Skin: General: Skin is warm and dry. Findings: No rash. Neurological: Comments: Sedated, not arousable, not interactive, not following commands Psychiatric: Comments: Unable to assess Labs: Lab Results Component Value Date/Time NA 134 (L) 12/16/2024358 K 3.4 (L) 12/16/2024358 CL 107 12/16/2024358 CO2 23 12/16/2024358 BUN 20 12/16/2024358 CREATININE 0.50 (L) 12/16/2024358 GLUCOSE 140 (H) 12/16/2024358 CALCIUM 7.9 (L) 12/16/2024358 PROT 5.0 (L) 12/16/2024 035 BILITOT 0.3 12/16/2024 035 ALKPHOS 72 12/16/2024358 AST 10 12/16/2024 035 ALT <6 12/16/2024 035 PROCAL 4.24 (H) 12/13/2024 1343 Lab Results Component Value Date/Time WBC 18.3 (H) 12/16/2024 035 HGB 7.7 (L) 12/16/2024 035 HGB 8.3 12/16/2024 0322 HCT 24.2 (L) 12/16/2024 035 PLT 375 12/16/2024358 LYMPHOPCT 7 (L) 12/16/2024358 MONOPCT 6 12/16/2024358 BASOPCT 0.3 12/15/2024 0348 NEUTROABS 17.4 (H) 12/15/2024 0348 Micro: 12/14 pneumonia PCR flu A 12/14 sputum reba 12/14 A baumannii PCR in process 12/14 C auris PCR in process 12/13 RPP flu A 12/13 BC 2/2 NGTD 12/13 MRSA PCR negative 12/13 Legionella, Pneumococcus urine antigens negative 12/13 urine negative [facility] 12/13 BC 09/30 NGTD 12/13 urine negative 12/11 urine negative 12/11 BC 2/2 negative 12/04 urine negative 12/04 BC 2/2 negative Lines: PIV CVC Radiography/Echo/Other: 12/16 CXR There is improved aeration. Mild basilar infiltrates remain left greater than right. Retrocardiac density also present. No sizable pneumothorax. Cardiac silhouette is within normal limits. Support devices are similar. 12/16 CT c spine 1. Moderate degenerative changes in the mid cervical spine. 2. Canal stenosis is most pronounced at C3-4 and C4-5. There is a mild impression on the ventral spinal cord. 3. No direct CT evidence of discitis/osteomyelitis on this unenhanced scan. 4. Mild inflammatory changes in the left mastoid air cells. This is nonspecific but may indicate mastoiditis. 5. There is a significant amount of cerumen/debris in the left external auditory canal. Please correlate with direct visualization. 3/18 MRI lumbar spine Marrow signal changes of L5-S1 vertebral bodies with fluid signal of the disc are consistent with osteomyelitis discitis. No peripherally enhancing fluid collection to suggest an epidural or paraspinal abscess. Small Schmorl's node at the inferior endplate of T11 with mild edema and enhancement suggest acute to subacute Schmorl's node formation. Multilevel spondylosis as outlined. No high-grade canal stenosis. Multilevel foraminal stenoses, most pronounced at L5-S1. Anatomic Lumbar Variant: None. L4-5 is considered the level of the iliac crest and assume there are 5 lumbar-type vertebrae. 3/ CT head 1. No evidence of an intracranial mass, edema or parenchymal flexion. If there is persistent concern for an abnormality not seen by CT, consider MRI and/or CSF analysis, if appropriate. 2. Cerebral volume loss. White matter changes likely due to microangiopathic disease. 3. Nonspecific left mastoid effusion. An infectious process cannot be excluded. /16 CT c/a/p 1. No evidence of an intracranial mass, edema or parenchymal flexion. If there is persistent concern for an abnormality not seen by CT, consider MRI and/or CSF analysis, if appropriate. 2. Cerebral volume loss. White matter changes likely due to microangiopathic disease. 3. Nonspecific left mastoid effusion. An infectious process cannot be excluded. Antimicrobials,Start/End Dates: Cefepime Flagyl Vancomycin oseltamivir Impression: 1) Flu A on oseltamivir; pt on minimal vent support 2) L5-S1 discitis/VO, most likely due to hematogenous seeding. Blood cultures remain NGTD, but pt was given pip tazo prior to collection 3) Septic shock 4) Poor dentition 5) reported recent Strep bactermia at OSH Plan: - stop cefepime - stop flagyl - start meropenem - continue oseltamivir; if concern for worsening, lack of improvement, we have peramivir available; confirmed with pharmacy - continue vancomycin, pharmacy to dose - follow up MRI cervical, thoracic spines to r/o skip lesions - recommend TTE - follow up biopsy cultures; please send for gram stain, aerobic, anaerobic cultures, fungal stain and culture in addition to histopath - d/w primary, OSH Micro as documented above. Awaiting fax with primary documentation - requesting full documentation from pt's admission at [facility] - following Rakel Hawthorne MD CCT 45 minutes independent of procedures spent on, but not limited to review of tests, medical records , complex history , review of external medical records, paper and electronic, ordering medications, tests, and procedures, communication with other health care professions, and independent interpretation of tests. Addendum: Full Micro for this year received from [facility] and are scanned under the Media tab. 10/30/24 blood cultures with S alactolyticus S amp, benzylpenicillin <=0.06, cefotaxime, ceftriaxone <=0.12, erythromycin, linezolid <=2, vanc 0.5. Repeat blood cultures on 11/02/24 finalized negative. S alactolyticus is part of the Strep bovis group, highly associated with colon cancer. Could also come from oral/odontogenic origin. Still awaiting full notes from pt's admission including full work up. Plan unchanged from above. Following. Associated Order(s): IP CONSULT TO ORTHOPAEDIC SURGERY Images from the original note were not included. Orthopaedic Spine Consult Patient: Claritza Burton Date of : 1945 Acct: [id number] PCP: JENARO AYERS MD Requesting Physician: Noni Levine MD Consulted Physician: Cody Tellez MD Date of Admission: 12/13/2024 Date of Service: Pt seen/examined on 12/15/2024 Acute Problem List: Acute respiratory failure with hypoxia Sepsis L5-S1 osteomyelitis/discitis Intubated/sedated Chief Complaint: L5-S1 osteomyelitis/discitis Claritza is a 79 y.o. female admitted to the [facility] ICU for acute respiratory failure with hypoxia as well as severe sepsis. Ortho was consulted for L5-S1 osteomyelitis/discitis. At the time of ortho eval, patient was intubated and sedated at the time of eval and so history was obtained from chart review. Patient presented as a transfer from [facility]. Has been admitted multiple times recently for parainfluenza, hyponatremia, influenza and aspiration, and PE/DVT. Had recently been discharged and out of the hospital for about 72 hours when she represented with hypoxia and pulmonary edema. Patient has been in the ICU at [facility] since 12/13 since, and has been intubated and sedated. CT C/A/P demonstrated L5-S1 OM/D. Patient has history of cerebral palsy, hypertension, L hip DHS at outside hospital. Review of Systems: Unable to review 2/2 patient intubation/sedation Allergies Allergen Reactions Ativan [Lorazepam] Augmentin [Amoxicillin-Pot Clavulanate] Erythromycin Symmetrel [Amantadine] @[email or web address]@ Past Medical History: Diagnosis Date Anxiety Cancer ([facility]) ([facility]) Cerebral palsy ([facility]) 194 Frequent urination Headache Hypertension Palpitations Past Surgical History: Procedure Laterality Date BLADDER SURGERY 2010 EYE SURGERY cataract HIP FRACTURE SURGERY Left 2000 HYSTERECTOMY ORTHOPEDIC SURGERY TONSILLECTOMY (HISTORICAL) Social History Socioeconomic History Marital status: Single Spouse name: Not on file Number of children: Not on file Years of education: Not on file Highest education level: Not on file Occupational History Not on file Tobacco Use Smoking status: Never Smokeless tobacco: Never Substance and Sexual Activity Alcohol use: No Drug use: No Sexual activity: Not on file Other Topics Concern Not on file Social History Narrative Not on file Social Drivers of Health Financial Resource Strain: Not on file Food Insecurity: Not on file Transportation Needs: Not on file Physical Activity: Not on file Stress: Not on file Social Connections: Not on file Intimate Partner Violence: Not on file Housing Stability: Not on file Family History Problem Relation Name Age of Onset Cancer Mother Diabetes Father Physical Exam: Vitals: 12/15/24 1815 12/15/24 1830 12/15/24 1845 12/15/24 1856 BP: 126/57 122/60 125/55 Pulse: 90 91 90 89 Resp: 15 15 15 14 Temp: TempSrc: SpO2: 99% 98% 98% 99% Weight: Height: GENERAL: intubated/sedated, ill SPINE/EXTREMITY: Overall exam limited by patient mental status. Reflexes diminished 2/2 sedatives Upper extremity reflexes: Bicep Brachioradialis Right 0 0 Left 0 0 Lower extremity reflexes: Patellar Achilles Right 2+ 0 Left 0 0 Misc: Vidales Clonus Babinski Right Negative None Absent Left Negative None Absent Lower extremity pulses: DP PT Right palp palp Left palp palp Left upper extremity: Shoulder range of motion is full and symmetric without pain. There are no signs of shoulder impingement. Upon inspection, no evidence of asymmetry, masses or effusions. There is full range of motion, no evidence of instability and muscle strength is documented above. Mild hypertonia in the left upper extremity Right upper extremity: Shoulder range of motion is full and symmetric without pain. There are no signs of shoulder impingement. Upon inspection, no evidence of asymmetry, masses or effusions. There is full range of motion, no evidence of instability and muscle strength is documented above. Mild hypertonia in the right upper extremity Right/Left lower extremity: Bilateral hip range of motion is full and symmetric without pain. Upon inspection, no evidence of asymmetry, masses or effusions. There is full range of motion, no evidence of instability and muscle strength is documented above. Mild hypertonia in the bilateral lower extremities Rectal Exam: Deferred Labs: Recent Labs 12/13/24 1343 12/14/24 0348 12/14/24 0406 12/15/24 0348 12/15/24 0501 WBC 24.0* 22.8* -- 21.9* -- HGB 9.9 9.2* 8.2* 9.6 7.5* 8.6 HCT 28.5* 25.4* -- 22.8* -- PLT 345 370 -- 345 -- Recent Labs 12/13/24 1343 12/14/24 0348 12/15/24 0348 NA -- 140 138 K -- 3.3* 3.2* CL -- 110* 109* CO2 -- 23 22* BUN -- 16 22 CREATININE 0.50* 0.53* 0.55* CALCIUM -- 8.0* 7.8* PHOS 2.3 2.9 2.9 Recent Labs 12/14/24 0348 12/15/24 0348 INR 1.2* 1.2* Recent Labs 12/13/24 1343 SEDRATE 39* CRP 160.6* No results for input(s): "HCG" in the last 72 hours. The above labs were reviewed by me. Radiographic finding: The below images were reviewed and independently interpreted Radiographs: C/A/P CT: Date of exam: 12/13/2024 Findings: 1. Multifocal infiltrates concerning for multifocal pneumonia. 2. Small to moderate left pleural effusion. 3. Moderate pericardial effusion. 4. Moderate stool throughout the colon and a large amount of stool in the rectum. Consider constipation and/or fecal impaction. Perirectal fat stranding is present suggesting proctitis including stercoral proctitis. 5. Chronic osseous changes. Erosive changes at L5-S1. Lumbar MRI: Date of exam: 12/15/24 Findings: Marrow signal changes of L5-S1 vertebral bodies with fluid signal of the disc are consistent with osteomyelitis discitis. No peripherally enhancing fluid collection to suggest an epidural or paraspinal abscess. Small Schmorl's node at the inferior endplate of T11 with mild edema and enhancement suggest acute to subacute Schmorl's node formation. Multilevel spondylosis as outlined. No high-grade canal stenosis. Multilevel foraminal stenoses, most pronounced at L5-S1. Anatomic Lumbar Variant: None. L4-5 is considered the level of the iliac crest and assume there are 5 lumbar-type vertebrae. ASSESSMENT: 79 y.o. female with L5-S1 osteomyelitis/discitis PLAN: At this time, further work up of the full spine is warranted to rule out non contiguous sites of infectious in the spine. MRI cervical/thoracic spine pending CT cervical spine pending CT biopsy pending Antibiotics per infectious disease/primary team Weight bearing: WBAT all extremities Activity: bedrest per ICU Skin checks/Neurochecks Ortho to follow. Please Page on "Ortho parks and recreation manager Res" with any questions or concerns. Ernestine Fernández MD PGY-2, Orthopaedic Surgery Cosigned by Cody Tellez MD at 12/16/2024 12:06 PM EDT Associated attestation - Cody Tellez MD - 12/16/2024 12:06 PM EDT I have individually seen and evaluated the patient. I agree with the findings and the plan as documented in the resident's note. Imaging reviewed, extensive L5-S1 osteomyelitis/discitis without evidence of epidural abscess. Given the lack of positive blood cultures, would recommend a CT-guided biopsy with both pathology and microbiology studies. Regardless, we recommend conservative treatment the form of IV antibiotics for an extended course. The CT scan is concerning for bony destruction, thus she may need surgical stabilization but given her medical comorbidities and current ICU status, would certainly defer surgery for several weeks to allow the clinical course to declare itself. Cody Tellez MD Associated Order(s): IP CONSULT TO DIETITIAN Nutrition Assessment Type and Reason for Visit: Initial, Consult ([facility], Shmuel nutritional subscore 2 or less;TF ordering and management) Nutrition Recommendations/Plan: Continue with Vital 1.5 @ 40 mls/hour goal rate = 1440 kcals, 65g protein, 733 mls free H20 = 26 kcalskg + 1.1g protein/kg IBW (55 kgs). Increased free water to 50 mls every 4 hours via MNT protocol. Monitor nutritional status. Malnutrition Assessment: Malnutrition Status: At risk for malnutrition (Comment) Context: Acute Illness Findings of the 6 clinical characteristics of malnutrition: Energy Intake: Mild decrease in energy intake (Comment) Weight Loss: No significant weight loss Body Fat Loss: No significant body fat loss Muscle Mass Loss: No significant muscle mass loss Fluid Accumulation: Moderate to Severe Extremities Education Professional Strength: Not Performed Nutrition Assessment: Pt is a 79-year-old female with PMH significant for cerebral palsy, PE/DVT on Eliquis, aspiration, esophagitis s/p PEG, recent hospitalizations for parainfluenza, hyponatremia, influenza A and Strep bacteremia who presented to [facility] ED with acute respiratory failure with concerns for pulmonary edema. Initial O2 sats noted to be the 60s, patient intubated and noted to be hypotensive thus was fluid resuscitated. She was noted to be hypertensive and had urinary retention. WBC [address] with infiltrates. CT abd/pelvis with concerns for osteomyelitis and discitis at L5-S1 as well as L common femoral vein thrombus. CTA chest demonstrated 1cm percardial effusion. Transferred to [facility] ICU for further management. Estimated Daily Nutrient Needs: Energy Requirements Based On: Kcal/kg Weight Used for Energy Requirements: Anderson Weight for Energy Calculation (kg): 55 kg Total Energy Requirements (kcals/day): 25-30 kcals/kg = 5616-6527 kcals/day Weight Used for Protein Requirements: Anderson Weight in Kg Used for Protein Requirements: 55 kg Estimated Total Protein (g/day): 1.1-1.3g protein/kg IBW = 61-72g protein/day Estimated Daily Total Fluid (ml/day): 1375 mls Nutrition Related Findings: Net IO Since Admission: -464 mL [12/14/24 1740] Orientation Level: Unable to Assess, Cognition: Follows commands, Best Verbal Response: None, Patient Behaviors/Mood: Agitated Swallow: Other (Comment) (ETT) Shmuel Scale Score: 15. Gastrointestinal (WDL): Within Defined Limits Bowel Sounds (All Quadrants): Hypoactive Abdomen Inspection: Soft, Nondistended Edema: RUE Edema: None, LUE Edema: None, RLE Edema: Deep pitting, indentation remains for a short time, LLE Edema: Deep pitting, indentation remains for a short time Oxygen Therapy: Supplemental oxygen, O2 Delivery Method: Ventilator, Meds reviewed: Scheduled: bisacodyl, 10 mg, Rectal, BID cefepime, 2,000 mg, IntraVENous, q8h chlorhexidine, , Topical, Daily metroNIDAZOLE, 500 mg, IntraVENous, q8h mupirocin, 1 Application, Nasal, BID oseltamivir, 75 mg, Oral, BID pantoprazole, 40 mg, Oral, Nightly Or pantoprazole (ProtoNix) 40 mg in sodium chloride (PF) 0.9 % 10 mL injection, 40 mg, IntraVENous, Nightly polyethylene glycol (PEG) 3350, 17 g, Per G Tube, Daily senna-docusate sodium, 2 tablet, Per G Tube, Daily sodium chloride 0.9%, 5-40 mL, IntraCATHeter, q8h [START ON 12/15/2024] vancomycin, 1,500 mg, IntraVENous, q24h Continuous: fentaNYL, 25-200 mcg/hr, Last Rate: 50 mcg/hr (12/14/24 1726) heparin, 5-30 Units/kg/hr, Last Rate: 16 Units/kg/hr (12/14/24 1600) propofol, 5-50 mcg/kg/min, Last Rate: 5 mcg/kg/min (12/14/24 0849) Current Nutrition Therapies: Enteral Nutrition Feeding Route: PEG EN Formula: Vital 1.5 Davide EN Schedule: Continuous EN Feeding Regimen: Vital 1.5 @ 40 mls/hour Water Flushes: 50 mls every 6 hours Current EN & Flush Order Provides: Vital 1.5 @ 10 mls/hour Goal EN & Flush Order Provides: Vital 1.5 @ 40 mls/hour = 1440 kcals, 65g protein, 733 mls free H20 = 26 kcalskg + 1.1g protein/kg IBW (55 kgs). Anthropometric Measures: Height: 162.6 cm (5' 4.02") Current Body Weight: 68 kg (149 lb 14.6 oz) Weight Source: Bed Scale Anderson Body Weight (lbs) (Calculated): 120 lbs Anderson Body Weight (Kg) (Calculated): 55 kg % Anderson Body Weight (Calculated): 124.9 % BMI (kg/m2) (Calculated): 25.7 BMI Categories: Overweight (BMI 25.0-29.9) Wt Readings from Last 10 Encounters: 12/14/24 68 kg (150 lb) LABS: Recent Labs 12/13/24 1343 12/14/24 0348 NA -- 140 K -- 3.3* CL -- 110* CO2 -- 23 BUN -- 16 CREATININE 0.50* 0.53* GLUCOSE -- 109 CALCIUM -- 8.0* CAION 3.50* 4.20* MG 1.5* 1.9 PHOS 2.3 2.9 Recent Labs 12/13/24 1343 12/14/24 0348 AST -- 33 ALT -- 9 BILITOT -- 0.4 ALKPHOS -- 77 TRIG 102 -- Nutrition Diagnosis: Inadequate oral intake related to impaired respiratory function as evidenced by NPO or clear liquid status due to medical condition, intubation, nutrition support - enteral nutrition (PEG) Nutrition Interventions: Nutrition Education/Counseling: No recommendation at this time Coordination of Nutrition Care: Continue to monitor while inpatient Goals: Goals: Tolerate nutrition support at goal rate, by next RD assessment Nutrition Monitoring and Evaluation: Food/Nutrient Intake Outcomes: Enteral Nutrition Intake/Tolerance Physical Signs/Symptoms Outcomes: Biochemical Data, GI Status, Skin, Weight, Hemodynamic Status, Nutrition Focused Physical Findings, Fluid Status or Edema Discharge Planning: Too soon to determine iVvian Gordon RD,LD,[facility] Contact: *[phone] or Clavister Chat documented in this encounter [facility] 12-27-2024 Note [facility] 12-26-2024 Telephone encounter Note Name of Caller: Loli Contact Physician requesting Consult: Dr. Younger Patient Location (facility name, room, bed number): [address] Room 543, Bed A Patient Diagnosis/Reason for Consult:Increased O2 requirements for increased secretions Provider being paged: Dr. Damon Time page was sent: 5:36p Department of provider being paged: Pulmonology Page Content: Loli from [address] called in to report a routine pulmonary consult ordered by Dr. Younger. Reason for consult is increased O2 for increased secretions. Loli can be reached at [phone] if needed. Message sent via Secure Chat [facility] 12-26-2024 Miscellaneous Notes Name of Caller: Loli Contact Physician requesting Consult: Dr. Younger Patient Location (facility name, room, bed number): [address] Room 543, Bed A Patient Diagnosis/Reason for Consult:Increased O2 requirements for increased secretions Provider being paged: Dr. Damon Time page was sent: 5:36p Department of provider being paged: Pulmonology Page Content: Loli from [address] called in to report a routine pulmonary consult ordered by Dr. Younger. Reason for consult is increased O2 for increased secretions. Loli can be reached at [phone] if needed. Message sent via Secure Chat documented in this encounter [facility] 12-17-2024 Telephone encounter Note Per secure chat response from Dr. Hawthorne, "Can you guys get the records from her September admission at [facility]? She had positive blood cultures then." I called [facility] MR Dept back, spoke with Noy again & asked for the above records. She said she will fax these to our office now. [facility] 12-17-2024 Miscellaneous Notes Per secure chat response from Dr. Hawthorne, "Can you guys get the records from her September admission at [facility]? She had positive blood cultures then." I called [facility] MR Dept back, spoke with Noy again & asked for the above records. She said she will fax these to our office now. Records received, these were scanned into pt's chart yesterday. Secure chat msg sent to Dr. Hawthorne making her aware. Per secure chat msg from Dr. Hawthorne, need to obtain full records from [facility] from pt's recent admission. Called [facility] Medical Records dept ([phone]), spoke with staff Noy who said she would fax these records to our office now. documented in this encounter [facility] 12-17-2024 Telephone encounter Note Records received, these were scanned into pt's chart yesterday. Secure chat msg sent to Dr. Hawthorne making her aware. [facility] 12-16-2024 Telephone encounter Note Per secure chat msg from Dr. Hawthorne, need to obtain full records from [facility] from pt's recent admission. Called [facility] Medical Records dept ([phone]), spoke with staff Noy who said she would fax these records to our office now. [facility] 12-15-2024 Note Care Management Prog ress Note Remains on Vent. Continues IV ATB course. 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 Length of Stay (Days): 2 GMLOS: No GMLOS Documented [facility] 12-14-2024 Note Return referral plac ed to [facility] via [facility] per [facility] request. Await review and response regarding ability to accept. TCC notified. [facility] 12-13-2024 Radiology Diagnostic study note [facility] 12-13-[address] [facility] 12-13-2024 History and physical note Images from the original note were not included. Internal Medicine: MICU Initial History and Physical Name: Claritza Burton : 1945(79 y.o.) Date: 12/13/24 Attending: Dr. Noni levine Subjective: Chief Complaint: Transfer from OSH for AHRF HPI: 79 yo F came to [facility] ED from [facility] with history of multiple recent hospital admissions related to parainfluenza, hyponatremia, Pe's and dvt (now on eliquis), influenza A and aspiration. Prior Egd showed esophagitis and pt now has PEG tube. Only been out of hospital for 72 hours and presented at [facility] ED due to hypoxia and pulmonary edema. O2 Sats initially in the 60's. Intubated in ED and lasix given at [facility]. She was also received the sepsis bolus and started on levaquin and clindamycin. Care team started to have concern for bacteremia due to past hx of bacteremia on previous hospital course and urinary retention to bladder cancer in remission. Puentes catheter placed. Patient spiked 102 degree fever. Elevated lactic ~3 and WBC 25,000. CXR shows worsening infiltrates. CT abd pelvis also showing osteomyelitis and discitis concerns at L5-S1 and left common femoral vein thrombus. CTA chest showed pulmonary vascular congestion and 1.cm pericardiac effusion but no PE. Patient was transferred to [facility] ICU for further workup. During my evaluation, patient remained intubated and on propofol sedation but able to open eyes with pain stimuli and follow commands. She appears cachetic and dehydrated. Upon arrival she was mildly tachycardic at 90HR but remained normotensive, afebrile, and stable on mechanical ventilation. I spoke with her niece Key later in the afternoon, patient code status is DNR CCA. Past Medical History: Diagnosis Date Anxiety Cancer (CMS/HCC) ([facility]) Cerebral palsy ([facility]) 194 Frequent urination Headache Hypertension Palpitations Past Surgical History: Procedure Laterality Date BLADDER SURGERY 2009 EYE SURGERY cataract HIP FRACTURE SURGERY Left 1999 HYSTERECTOMY ORTHOPEDIC SURGERY TONSILLECTOMY (HISTORICAL) Family History Problem Relation Name Age of Onset Cancer Mother Diabetes Father Social History Socioeconomic History Marital status: Single Spouse name: Not on file Number of children: Not on file Years of education: Not on file Highest education level: Not on file Occupational History Not on file Tobacco Use Smoking status: Never Smokeless tobacco: Never Substance and Sexual Activity Alcohol use: No Drug use: No Sexual activity: Not on file Other Topics Concern Not on file Social History Narrative Not on file Social Drivers of Health Financial Resource Strain: Not on file Food Insecurity: Not on file Transportation Needs: Not on file Physical Activity: Not on file Stress: Not on file Social Connections: Not on file Intimate Partner Violence: Not on file Housing Stability: Not on file Not on File Prior to Admission medications Not on File Objective: Oxygen Delivery: VITALS: Temp 36.2 C (97.1 F) (Temporal) CURRENT PULSE OXIMETRY: Review of Systems Unable to perform ROS: Intubated Constitutional: General Appearance []WDWN []Obese [x]Cachectic [x]Thin [x]Ill Eyes: Inspection of Pupils/Irises Pupils round and react: [x]Yes []No Sclera: []Icteric [x]Non-Icteric Inspection of Conjunctiva/Lids Conjunctiva: []Injected [x]Non-Injected Lids: []Intact [x]Lesion Present ENT/Mouth: External Inspection of ears/nose [x] Normal [] Scar/Lesion/Mass Inspection of teeth/lips/gums Dentition: []Quinault Teeth []Dentures Lips/Gums: [x]Intact []Lesion Present Mucosa: [x]Lajas [x]Moist []Dry Neck: External Appearance Overall Appearance: [x]Normal []Lesion/Mass/Crepitus Present Trachea midline: [x]Yes []No Thyroid [x]Normal []Enlarged []Tender []Mass []Absent Respiratory: Respiratory effort []Labored []Non-Labored [x] Mechanically-Ventilated Auscultation []Clear [x]Crackles []Wheezes []Rhonchi Cardiovascular: Auscultation Rate: [x]Regular []Irregular [x]Tachycardia []Bradycardia Rhythm: [x]Regular []Irregular Murmur: []Present [x]Absent Extremities Peripheral Edema: []Present [x]Absent Varicosities: []Present [x]Absent Gastrointestinal: Abdomen Palpation: [x]Soft []Firm []Tender []Non-Tender []Distended []Non-distended Mass: []Present [x]Absent Bowel Sounds: [x]Present []Absent Hernia: []Present []Absent Liver/Spleen: []Hepatosplenomegaly []Organomegaly Absent Musculoskeletal: Inspection of Digits and Nails Cyanosis: []Present [x]Absent Clubbing: []Present [x]Absent Ischemia: []Present [x]Absent Infection: []Present [x]Absent Extremities GERMAN Equally: Except ([]RUE [x]RLE []LUE [x]LLE) Strength/Tone: Intact and Normal ([]RUE []RLE []LUE []LLE) Skin: Inspection [x]Normal []Rash []Lesion []Ulcer Palpation [x]Warm []Cool [x]Dry []Clammy []Nodules []Induration []Skin-tightening Cap-Refill: [] <3 sec [] >3 seconds (delayed) Neurologic: GCS EYE: 2 - Opens to pain GCS MOTOR: 6 - Obeys commands for movement GCS VERBAL: 1 - No response Total GCS: 7 [] Sensation grossly intact Psych: Mental Status Alert: [x]Yes [] No Oriented: []x0 []X1 []X2 []X3 - unable to assess Mood/Affect []Normal []Flat []Agitated []Depressed []Anxious []Calm [x]Sedated []NAD Select Labs within last 24 hours- BMP: No results for input(s): "NA", "K", "CL", "CO2", "BUN", "CREATININE", "CALCIUM", "MG", "PHOS" in the last 72 hours. LFTs: No results for input(s): "AST", "ALT", "PROT", "ALBUMIN", "BILITOT", "BILIRUBINU", "ALKPHOS", "LIPASE" in the last 72 hours. Glucose: No results for input(s): "GLUCOSE", "POCGLU", "BHYDRXBUT" in the last 72 hours. Procal: No results for input(s): "PROCAL" in the last 72 hours. CBC: No results for input(s): "WBC", "HGB", "HCT", "PLT", "MCV", "RDW" in the last 72 hours. ABGs: No results for input(s): "PHART", "FSP8TVU", "PO2ART", "NSG4BOT", "SO2ART", "K4XSRVIA" in the last 72 hours. Lactic Acid: No results for input(s): "LACTATE" in the last 72 hours. INR: No results for input(s): "INR" in the last 72 hours. Cardiac Injury Profile: No results for input(s): "CKTOTAL", "CKMB", "TROPONINI" in the last 72 hours. Labs in Last 3 months: No results found for: "TSH", "VITD25", "PSA", "INR", "GLUF" Microbiology- Urine Cx: No results found for: URINECX Blood Cx: No results found for: BLOODCX Sputum Cx: No results found for: RESPCULT Gram Stain: No results found for: "LABGRAM" PNA PCR: No results found for: HUMANMETAPNE COVID19: No results found for: COVID19 Legionella Ag: No results found for: "LEGIONELLAPN" Strep Ag: No results for input(s): "STREPPNEUMO" in the last 72 hours. Imaging- abnormal from OSH CTA Chest and CT Abdomen and Pelvis No large central pulmonary embolism. Small left-sided pleural effusion Concern for L5-S1 osteomyelitis/discitis Pulmonary with vascular congestion concerning for edema. Pericardial effusion 1 cm. 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 Remained on mechanical ventilation with sedation with propofol and fentanyl. DNR CCA ok for intubation and ICU Started broad spectrum antibiotics. Patient is septic but not in septic shock. 2L of Fluid bolus already given at OSH. At outside hospital, patient was given vancomycin, Levaquin, clindamycin. We started broad-spectrum antibiotics with Vanco cefepime and Flagyl due to her allergy to amoxicillin. Check Pro-Davide. Check pancultures including broad spectrum of respiratory workup, blood cultures, urine cultures Due to persistent DVT and past history of DVT PE, we started patient on heparin drip in place of oral anticoagulant. We will order CT head and CT chest abdomen and pelvis with contrast to evaluate neural sources of infection and osteomyelitis/discitis. At outside hospital, there was concern for this level of L5-S1 region. consider Ortho consult once imaging and blood cultures back. Hospital imaging showed pulmonary vascular congestion. Will spot diurese with Lasix IV 40 mg. Strict I's and O's. Formal TTE ordered. Keep n.p.o. Patient has PEG tube. Abdominal x-ray order for PEG tube function confirmation. Daily labs, ABG, coags panel chest x-ray. Will check ESR and CRP for osteomyelitis concern New Puentes and central venous catheter placed at outside. SEP-1 CORE MEASURE DATA SIRS Criteria Sepsis Criteria Severe Sepsis Criteria Septic Shock Criteria Must meet 2: [] Temperature > 100.4 F (38 C) or < 96.8 F (36 C) [x] HR > 90 [] RR > 20 [x] WBC > 12 or < 4 or 10% bands Must be confirmed or suspected to move forward with diagnosis of sepsis. Must select at least one: [x] Bacterial Infection Confirmed or Suspected. [] Viral Infection Confirmed or Suspected. [] No infection present. Patient does not meet criteria for Sepsis. Must meet 1: [] Lactate > 2 or [x] Signs of Organ Dysfunction: - SBP < 90 or MAP < 65 - Altered mental status - Creatinine > 2 or increased from baseline - Urine Output < 0.5 ml/kg/hr - Bilirubin > 2 - INR > 1.5 - Platelets < 100,000 - Acute Respiratory Failure as evidenced by new need for NIPPV or mechanical ventilation [] No criteria met for Severe Sepsis. Must meet 1: [] Lactate = or > 4 or [] SBP < 90 or MAP < 65 for at least two readings in the first hour after fluid bolus administration [x] No criteria met for Septic Shock. No data found. Recent Labs 12/13/24 1343 WBC 24.0* LACTATE 1.4 PLT 345 Sepsis Identified at 1343 hours. Fluid Resuscitation Rational: at least 30mL/kg based on entered actual body weight at time of triage Patient was given 2L of IVF bolus at [facility] ED. Infection Source: pulmonary, bone/bloodstream Reassessment Exam: Not applicable. Patient does not have Septic Shock. Keely Vergara DO GI Prophylaxis: Pantoprazole IV DVT Prophylaxis: Full anticoagulation BMI Classification: There is no height or weight on file to calculate BMI. overweight BMI 25-29.9 Disposition: Remain in ICU Status Cosigned by Noni Levine MD at 12/13/2024 5:35 PM EDT Associated attestation - Noni Levien MD - 12/13/2024 5:35 PM EDT Attending Supervising Physician's Attestation Statement for ICU Admission I have personally seen the patient and examined along with the resident. I personally obtained the lamb and relevent portions of the history and performed physical exam. I reviewed the chart including MAR, labs, and radiology and agree with the patient's plan of action as discussed with the resident. This note reflects my plan of care as I have edited the note to reflect my findings and my assessment and plan. ROS documentation was reviewed and negative unless otherwise stated in HPI. Chief Complaint: Acute Respiratory Failure with Hypoxia Additional pertinent history, ROS, and physical exam findings: 79 yo F PMH cerebral palsy, PE/DVT on Eliquis, aspiration, esophagitis s/p PEG, recent hospitalizations for parainfluenza, hyponatremia, influenza A and Strep bacteremia who presented to [facility] ED with acute respiratory failure with concerns for pulmonary edema. Initial O2 sats noted to be the 60s, patient intubated and noted to be hypotensive thus was fluid resuscitated. She was noted to be hypertensive and had urinary retention. WBC [address] with infiltr[address]. [address] abd/pelvis with concerns for osteomyelitis and discitis at L5-S1 as well as L common femoral vein thrombus. CTA chest demonstrated 1cm percardial effusion. Transferred to [facility] ICU for further management. Patient seen and examined. Intubated but awakens and follows commands with decreased sedation. Compliant with mechanical ventilation. Physical Exam Constitutional: General Appearance []WDWN []Obese []Cachectic []Thin [x]Ill Eyes: Inspection of Pupils/Irises Pupils round and react: [x]Yes []No Sclera: []Icteric [x]Non-Icteric Inspection of Conjunctiva/Lids Conjunctiva: []Injected [x]Non-Injected Lids: [x]Intact []Lesion Present ENT/Mouth: External Inspection of ears/nose [x] Normal [] Scar/Lesion/Mass Inspection of teeth/lips/gums Dentition: [x]Quinault Teeth []Dentures Lips/Gums: [x]Intact []Lesion Present Mucosa: [x]Lajas [x]Moist []Dry Neck: External Appearance Overall Appearance: [x]Normal []Lesion/Mass/Crepitus Present Trachea midline: [x]Yes []No Thyroid [x]Normal []Enlarged []Tender []Mass []Absent Respiratory: Respiratory effort []Labored []Non-Labored [x] Mechanically-Ventilated Auscultation []Clear [x]Crackles at bases []Wheezes [x]Rhonchi Cardiovascular: Auscultation Rate: [x]Regular []Irregular []Tachycardia []Bradycardia Rhythm: [x]Regular []Irregular Murmur: []Present [x]Absent Extremities Peripheral Edema: [x]Present []Absent Varicosities: []Present []Absent Gastrointestinal: Abdomen Palpation: [x]Soft []Firm []Tender [x]Non-Tender []Distended [x]Non-distended Mass: []Present [x]Absent Bowel Sounds: [x]Present []Absent Hernia: []Present []Absent Liver/Spleen: []Hepatosplenomegaly []Organomegaly Absent Musculoskeletal: Inspection of Digits and Nails Cyanosis: []Present [x]Absent Clubbing: []Present [x]Absent Ischemia: []Present [x]Absent Infection: []Present [x]Absent Extremities GERMAN Equally: Except ([]RUE []RLE []LUE []LLE) Strength/Tone: Intact and Normal ([]RUE []RLE []LUE []LLE) Skin: Inspection [x]Normal []Rash []Lesion []Ulcer Palpation [x]Warm []Cool []Dry []Clammy []Nodules []Induration []Skin-tightening Cap-Refill: [x] <3 sec [] >3 seconds (delayed) Neurologic: GCS EYE: 2 - Opens to pain GCS MOTOR: 4 - Withdraws from pain GCS VERBAL: 1 - No response Total GCS: 7 [] Sensation grossly intact Psych: Mental Status Alert: []Yes [x] No Oriented: []x0 []X1 []X2 []x3 Mood/Affect []Normal []Flat []Agitated []Depressed []Anxious []Calm [x]Sedated []NAD Assessment and Plan: Acute Respiratory Failure with Hypoxia Severe Sepsis HCAP given recent hospitalizations Concern for osteomyelitis/discitis L5-S1 Leukocytosis Hx DVT/PE on Eliquis Pericardial effusion Volume overload/Pulmonary edema Lower extremity edema Hx Bladder CA w/ urinary retention w/ chronic puentes - check blood, urine, sputum cultures, strep/legionella antigen, MRSA swab, respiratory viral panel, pneumonia PCR, and procalcitonin. Start broad spectrum antibiotics with vanc/cefepime/flagyl. Repeat Lactic acid until <2. - Check CT head/chest/abd/pelvis. If confirms concerns for osteomyelitis/discitis consult ortho spine - Check ESR/CRP - hold eliquis, start heparin gtt - diuresis with lasix for fluid goal negative 1-2L. - NPO for now - family updated at bedside. Confirms DNR-CCA ok for intubation. Code Status: DNR-CCA, ok for intubation Disposition: Admit to ICU Total critical care time caring for this patient with life threatening, unstable organ failure, including direct patient contact, management of life support systems, review of data including imaging and labs, discussions with other team members and physicians is 40 minutes, excluding procedures. Noni Levine MD Pulmonary and Critical Care Medicine Attending Pager #[phone] documented in this encounter [facility] 12-13-2024 Discharge summary Note Date/Time December 13, 2024 7:35am [facility] Medical Records Department [address] [place] [address] Emergency Department Summary 12/13/24 MR#: [id number] Acct: [id number] Name: CLARITZA BURTON Rep #:[id number] From: Jermain Macias PCP: Dr. Jenaro Ayers MD Status:REG ER Location: ED HPI History of Present Illness Chief Complaint: Shortness of Breath Informant: EMS and SNF Narrative Narrative: 79-year-old female arriving to the emergency department via EMS with respiratoryfailure. Patient reportedly was admitted in September with parainfluenza virus. She had complications with urinary retention as well as Streptococcus bacteremia. 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 Patient was admitted again most recently with influenza infection and respiratory failure but did not require intubation. Shealso had evidence of aspiration and a PEG tube was placed. Tonight was reportedly found with a pulse ox of around 53%. EMS notes they placed her on CPAP because of white frothy fluid from the mouth. They were able to get her oxygen saturations up into the 70s. Patient cannot provide any history and so all history is gleaned from the existing chart and from what paperwork the long-term sent with her. It is stamped as she is a full code and that is what we have and are charting. She is also reported that she has an indwelling Puentes catheter due to urinary retention. [facility] Medical History Anxiety Depression Osteoporosis Non-smoker Cerebral palsy Cataract Palpitations Elevated blood pressure reading without diagnosis of hypertension Essential (primary) hypertension Home Medications ?Medication ?Instructions ?Recorded ?Last Taken ?Type garlic 200 mg tablet 200 mg PO DAILY 01/16/18 Unk nown History cholecalciferol (vitamin D3) 25 1,000 unit PO DAILY Unknown History mcg (1,000 unit) tablet metoprolol succinate 50 mg 50 mg PO DAILY #90 TABLETS 01/22/24 Unknown Rx tablet,extended release 24 hr amlodipine 5 mg tablet 5 mg PO DAILY #90 tabs 10/05 Unknown Rx apixaban 5 mg tablet (Eliquis) 5 mg PO BID 12/04/24 Un known History ferrous sulfate 325 mg (65 mg 325 mg PO BID 12/04/24 U nknown History iron) tablet (Feosol) lisinopril 20 mg tablet 20 mg PO DAILY 12/04/24 Unkn own History sennosides 8.6 mg-docusate sodium 1 tab-cap PO BID 04/23 Unknown History 50 mg tablet (Stimulant Laxative Plus) lactose-reduced food with fiber See Rx Instructions .R oute 12/11/24 Unknown Rx 0.06 gram-1.5 kcal/mL oral liquid .COMPLEX #5,688 mL (Jevity 1.5 Davide) risperidone 0.5 mg tablet 0.25 mg (1/2 x 0.5 mg) PO QH S #0 12/11/24 Unknown Rx tabs Allergy/AdvReac Type Severity Reaction Status Date / Time amantadine (From Symmetrel) AdvReac Severe Unknown Verified 12/09/24 14:55 amoxicillin (From Augmentin) AdvReac Severe Unknown Verified 12/09/24 14:55 clavulanic acid (From AdvReac Severe Unknown Verified 10/30/24 11:00 Augmentin) erythromycin base AdvReac Severe Unknown Verified 12/09/24 14:55 lorazepam (From Ativan) AdvReac restless Verified 12/09/24 14:55 Family History Father Diabetes Hypertension Mother alzhemier Osteoporosis Surgical History History of tonsillectomy History of hysterectomy History of hip replacement Social History Smoking Status: Never smoker alcohol intake: never substance use type: does not use caffeine: Yes Type: coffee Number of servings: 3 what type of physical activity do you participate in: none seatbelt use: always do you feel safe at home: Yes ROS ROS ED Review of Systems ROS Unobtainable: due to mental status EXAM Physical Exam Narrative Exam Narrative: Patient is showing signs of respiratory failure (fatigue slowing respiratory rate inability to oxygenate and unresponsiveness) Const Vital Signs: 12/13/24 03:16 12/13/24 03:20 12/13/24 03:25 Temperature 97.7 F L 97.9 F Temperature Source Temporal Temporal Pulse Rate 154 H 157 H 141 H Respiratory Rate 51 H 47 H 14 Respiratory Effort Respiratory Pattern Normal Blood Pressure 162/78 H 162/78 H Blood Pressure Mean 106 106 Pulse Ox 90 97 99 Oxygen Delivery Method Bi-pap Bi-pap Oxygen Flow Rate (L/min) Fraction of Inspired Oxygen (FIO2) 100 100 100 12/13/24 03:45 12/13/24 03:48 12/13/24 03:50 Temperature Temperature Source Pulse Rate 140 H Respiratory Rate 14 Respiratory Effort Short of Breath Labored Respiratory Pattern Tachypnea Blood Pressure 174/80 H Blood Pressure Mean 111 Pulse Ox 100 100 Oxygen Delivery Method Mechanical Ventilator CPAP Mechanical Ventilator Oxygen Flow Rate (L/min) 10 Fraction of Inspired Oxygen (FIO2) 12/13/24 04:15 12/13/24 04:30 12/13/24 05:00 Temperature 102.4 F H Temperature Source Axillary Pulse Rate 158 H 154 H 140 H Respiratory Rate 19 H 20 H 20 H Respiratory Effort Respiratory Pattern Blood Pressure 136/79 H 140/75 H 91/59 L Blood Pressure Mean 98 96 69 Pulse Ox 99 97 100 Oxygen Delivery Method Mechanical Ventilator Mechanical Ventilator Mechanical Ventilator Oxygen Flow Rate (L/min) Fraction of Inspired Oxygen (FIO2) 12/13/24 05:05 12/13/24 05:30 12/13/24 06:00 Temperature Temperature Source Pulse Rate 139 H 140 H 137 H Respiratory Rate 26 H 22 H 22 H Respiratory Effort Respiratory Pattern Tachypnea Blood Pressure 113/79 76/47 L Blood Pressure Mean 90 56 Pulse Ox 100 99 98 Oxygen Delivery Method Mechanical Ventilator Mechanical Ventilator Oxygen Flow Rate (L/min) Fraction of Inspired Oxygen (FIO2) 80 12/13/24 06:16 12/13/24 06:19 Temperature Temperature Source Pulse Rate Respiratory Rate Respiratory Effort Respiratory Pattern Blood Pressure 88/52 L 89/52 L Blood Pressure Mean 64 64 Pulse Ox Oxygen Delivery Method Oxygen Flow Rate (L/min) Fraction of Inspired Oxygen (FIO2) Positive well nourished and well developed General Appearance ED: well developed HEENT Reports normocephalic, head/scalp atraumatic and moist mucous membranes HEENT Narrative: White frothy fluid coming from mouth Eyes PERRL and EOMs intact bilaterally Neck no lymphadenopathy, supple and no JVD Resp Resp Narrative: Respiratory failure slowing respiratory rate and agonal gasping Cardio regular rate, regular rhythm and no murmurs Rate: tachycardic GI normal to inspection, nondistended, normoactive bowel sounds and non-tender GI Narrative: PEG tube placement Auscultation: normoactive bowel sounds Palpation: soft Extremity General Extremety ED: Yes edema General Extremity: edema bilateral Neuro Neuro Narrative: Patient is unresponsive to voice and light touch. She has minimal response to sternal rub Psych Psych Narrative: Unable to assess Skin no wounds Skin Narrative: She has mottling of the bilateral lower extremities MDM MDM MDM Narrative Medical decision making narrative: Patient was transitioned from EMS CPAP to BiPAP as we prepared for intubation. Her pulse ox never achieved greater then 87%. Patient underwent rapid sequence intubation use etomidate and rocuronium. Endotracheal tube was placed on the first attempt without significant difficulty and secured at 23 cm. Copious amounts of white frothy fluid were noted. ABG shows a pH of 7.337 pCO2 50.1 PaO2 of 84.3 HCO3 26.8. This was drawn on FiO2 of 50% while on the ventilator. Labs were sent. My independent interpretation of the single view postintubationx-ray is adequate placement of the endotracheal tube. There is bilateral lower lung field opacities which appear worse than prior. Patient's white count is noted to be significantly elevated 25.1 hemoglobin 10.9 platelet count of 409. Creatinine is 0.56 lactic acid 3.7 magnesium 1.8 potassium 4.2 sodium of 140. BNP elevated at 781 troponin 27 urinalysis with 5-10 white cells greater than 100 red cells 2+ bacteria positive nitrates. Blood and urine cultures were sent. Because of the concern for aspiration as well as an apparent UTI we gave Levaquin as well as clindamycin. There was a reported unknown allergy to Augmentin/amoxicillin. CTA of the chest and CT of the abdomen pelvis was obtained. While awaiting these to be read by radiology patient's blood pressurestarted to decrease and her temperature casa to 102.4. IV fluids were started and preparations were made for central line placement. Propofol was weaned downas a potential cause of the hypotension. Her CTA of her chest shows worsening infiltrates and mucous plugging which I suspect is probably aspiration and a degree of pulmonary edema. There is a small pericardial effusion noted. No large central pulmonary embolism noted. CT abdomen pelvis was obtained. I discussed this directly with the radiologist. There is noted to be clotting of the left femoral and external iliac vein as it crosses over the lumbosacral spine. Of particular note is the disc space and vertebrae of L5-S1. This raises concern for discitis/osteomyelitis. Patient underwent a central line placement of the right internal jugular using sterile ultrasound guidance and modified Seldinger technique central line was placed in the first attempt without any difficulty. Dark red nonpulsatile blood was obtained. My independent interpretation of the post procedure films is no pneumothorax adequate placement of central line. Initially we gave the patient Levaquin and clindamycin to cover for aspiration pneumonia. This also should provide some urinary coverage until cultures return. After the return of the CT of the abdomen pelvis results vancomycin was also added. Patient has received about 2 L of IV fluids. Her blood pressure is History & Record Review Discussion w/independent historian: EMS personnel Additional record(s) reviewed:: Prior inpatient record, Prior ED visit and Priorlabs Lab Data Attestation: I reviewed the patient's lab results. Labs: Laboratory Results - last 24 hr 12/13/24 12/13/24 12/13/24 03:38 03:40 04:15 WBC 25.1 H RBC 3.64 L Hgb 10.9 L Hct 35.4 L MCV 97.3 MCH 29.9 MCHC 30.8 L RDW Std Deviation 54.1 H RDW Coeff of Roselyn 15.3 H Plt Count 409 MPV 10.3 Immature Gran % (Auto) 3.300 H Neut % (Auto) 81.2 H Lymph % (Auto) 9.5 L [place] % (Auto) 5.9 Eos % (Auto) 0.0 Baso % (Auto) 0.1 Absolute Neuts (auto) 20.4 H Absolute Lymphs (auto) 2.39 Nucleated RBC % 0 Differential Comment SCANNED Atypical Lymphocytes 1+ PT 17.1 H INR 1.4 APTT 28.3 Sodium 140 Potassium 4.2 Chloride 106 Carbon Dioxide 20.4 L Anion Gap 14 BUN 14 Creatinine 0.56 L Estim Creat Clear Calc 55.13 Est GFR (MDRD) Non-Af 94 BUN/Creatinine Ratio 24.7 H Glucose 212 H Lactic Acid 3.7 H* Calcium 8.2 Magnesium 1.8 Total Bilirubin 0.33 AST 33 H ALT 14 Alkaline Phosphatase 101 Troponin T High Sens 27 H NT pro BNP II 789 Total Protein 6.1 Albumin 2.8 L Globulin 3.3 Albumin/Globulin Ratio 0.8 L Urine Color Brown Urine Clarity Cloudy Urine pH 5.0 Ur Specific Lincoln 1.025 Urine Protein 500 H Urine Glucose (UA) 50 H Urine Ketones 5 H Urine Occult Blood 250 H Urine Nitrite Positive H Urine Bilirubin 1 H Urine Urobilinogen 4 H Ur Leukocyte Esterase 100 H Urine RBC > 100 SEEN Urine WBC 5-10 SEEN Ur Squamous Epith Cells 0 SEEN Ur Renal Epithelial Cell 0-5 SEEN Urine Bacteria 2+ Urine Mucus 0 SEEN ABG Data ABG results: ABG 12/13/24 04:05 Specimen Type ART Sample Site L Radial pH 7.34 L Bicarbonate Actual 26.8 H Total CO2 28 Base Excess 1 O2 Saturation 95 O2 % 50.0 ABG pCO2 50.1 H ABG pO2 84 Nikos Test Positive Respiration Rate 14 O2 Delivery Device ET Tube Vent Mode AC Tidal Volume 450.0 POC PEEP 5 Radiography Diagnostic Testing: Clinical Impression(s) from Imaging Studies Chest X-Ray 12/13/24 03:45 IMPRESSION: Endotracheal tube 4.8 cm above the leeanna. New airspace opacity at the right base which may represent worsening pneumonia or possible aspiration. No significant interval change in airspace opacities left lung. Reading Location: [id number] Abdomen/Pelvis CT 12/13/24 04:43 IMPRESSION: The occlusive appearing DVT/thrombus within the left common femoral, external iliac near its confluence as it crosses over the lumbosacral spine is more conspicuous on the current study. Abnormal appearance of the L5-S1 disc space with irregular endplates and sclerotic osseous changes with soft tissue widening and thickening, possibleerosive change anteriorly of the S1 segment again seen and concerning for possible discitis/osteomyelitis and may be resulting in the thrombosis of the left iliac and femoral system. Clinically correlate and requires further workup. Presacral stranding and edema, swelling not significantly changed axial 84 and sagittal 76. There is again note of a high-grade appearing narrowing of the proximal celiac trunk approximately 2 cm in length with contrast seen beyond. Requires follow-up vascular consult. [id number] fecal burden with possible degree of rectal fecal impaction asabove. One or more dose reduction techniques were used (e.g., Automated exposure control, adjustment of the mA and/or kV according to patient size, use of iterative reconstruction technique). Reading Location: [facility] Chest CTA 12/13/24 04:43 IMPRESSION: Endotracheal tube in place above the leeanna. Respiratory motion artifact significantly limits the segmental and subsegmental evaluation. No convincing filling defect to suggest pulmonary embolism identified. No large central or hilar saddle embolism. There is now a pericardial effusion which measures around 1 cm in areas. Bilateral lower lobe airway opacification subsegmental basal as above which may represent secretions/mucus plugging with aspirate not excluded. Similar appearance of patchy airspace opacities left lung now with increased patchy opacity right base. Some areas of tree-in-bud nodularity may represent small airways disease, atypical pneumonia. Mild increased appearance of consolidative change at the left base. Increase in the size of the small left pleural effusion. Bilateral dependent areas of atelectasis and partial collapse of the lower lobes. One or more dose reduction techniques were used (e.g., Automated exposure control, adjustment of the mA and/or kV according to patient size, use of iterative reconstruction technique). Reading Location: [facility] EKG Initial EKG: Attestation: I personally reviewed and interpreted this EKG as follows: Comments: Sinus tachycardia ventricular rate is 138 bpm. Management Discussion w/another healthcare provider: Hospitalist, Staff Internist Office Based Only and Radiologist Critical Care Time Critical Care Time: Yes Critical care time (excluding procedures): 30-74 minutes (35 min), Including time spent:, Discussing w/Patient &/or Family/[employer], Discussing w/Consultants, Arranging Admission or Transfer and Performing Direct Patient Care at Bedside Discharge Plan Dx/Rx/DC Orders Clinical Impression: Respiratory failure, Pulmonary edema, Aspiration into airway, UTI (urinary tract infection), Cerebral palsy, Eosinophilic esophagitis, Sepsis, Discitis Disposition Disposition: Acute Care Hospital [facility] What to do if you have Problems For any increased pain, shortness of breath, bleeding, nausea or vomiting, chestpain, or any unexpected problems, contact your Primary Care Provider. Call [facility] ([phone]) or report to the closest Emergency Room. Call 911 if necessary. 12/13/24 0735 <Electronically signed by Jermain Archer DO> Cosigner Signature (if applicable): CC: Dr. Jenaro Ayers MD ~ Signed [facility] Work Phone: [phone] 884-909103-16-2025 Radiology Diagnostic study [facility]03-16-2025 Radiology Diagnostic study [facility]03-16-2025 Radiology Diagnostic study [facility] 12-11-2024 Discharge summary Author Sonali Rousseau [facility] Note Date/Time December 11, 2024 4:4 5pm [facility] Medical Records Department [address] [place] [address] Discharge Summary 12/11/24 1644 MR#: [id number] Acct: [id number] Name: CLARITZA BURTON Rep #:[id number] 1945 79 From: Sonali Rousseau MD PCP: Dr. Jenaro Ayers MD Status:ADM IN Location: [place] [address] Providers Date of Admission: 12/04/24 Date of Discharge: 12/11/24 Primary Care Physician: Dr. Jenaro Ayers MD Consultations 12/04/24 16:18 Consult: Rn Urology / Pulmonary Medicine Routine Consulting Provider: Intensivists/Pulmonary Med Reason for Consult: acute respiratory failure w/ flu A and possib aspiration pna EMERGENT Consult: No MD Notified: Yes Date Notified: 12/04/24 Time Notified: 14:56 Method of Notification: Text 12/08/24 11:00 Consult: Gastroenterology Routine Consulting Provider: [facility] Reason for Consult: persistent aspiration, abn UES opening, speech reg GI c/s EMERGENT Consult: No MD Notified: Yes Date Notified: 12/08/24 Time Notified: 12:14 Method of Notification: Text Reason For Visit: ACUTE RESPIRATORY FAILURE W/FLU A INFXN AND Diagnosis Discharge Diagnosis (1) Influenza A: Status: Acute Code(s): J10.1 - Influenza due to other identified influenza virus with other respiratorymanifestations (2) Acute hypoxic respiratory failure: Status: Acute Code(s): J96.01 - Acute respiratory failure with hypoxia Plan # Acute hypoxic respiratory failure secondary to influenza A with aspiration pneumonia # Dysphagia with recurrent aspiration-concern for eosinophilic esophagitis on EGD # Recent DVT and PE # Hypertension # Chronic back pain # History of urinary retention with Puentes in place # Cerebral palsy Medications at Discharge Home Medications garlic 200 mg tablet 200 mg PO DAILY 01/16/18 cholecalciferol (vitamin D3) 25 mcg (1,000 unit) tablet 1,000 unit PO DAILY 07/25/23 metoprolol succinate 50 mg tablet,extended release 24 hr 50 mg PO DAILY #90 TABLETS 01/22/24 amlodipine 5 mg tablet 5 mg PO DAILY #90 tabs 10/05/24 apixaban 5 mg tablet (Eliquis) 5 mg PO BID 12/04/24 ferrous sulfate 325 mg (65 mg iron) tablet (Feosol) 325 mg PO BID 12/04/24 lisinopril 20 mg tablet 20 mg PO DAILY 12/04/24 sennosides 8.6 mg-docusate sodium 50 mg tablet (Stimulant Laxative Plus) 1 tab- cap PO BID 12/04/24 lactose-reduced food with fiber 0.06 gram-1.5 kcal/mL oral liquid (Jevity 1.5 Davide) See Rx Instructions .Route .COMPLEX #5,688 mL 12/11/24 risperidone 0.5 mg tablet 0.25 mg (1/2 x 0.5 mg) PO QHS #0 tabs 12/11/24 Hospital Course Procedures - (EGD, PEG placement, multiple speech evaluations) Summary of Care Provided Minutes Spent on Discharge: 33 Hospital Course: # Acute hypoxic respiratory failure secondary to influenza A with aspiration pneumonia # Dysphagia with recurrent aspiration-concern for eosinophilic esophagitis on EGD # Recent DVT and PE # Hypertension # Chronic back pain # History of urinary retention with Puentes in place # Cerebral palsy 79-year-old female with history as above as well as recent prolonged hospitalization at [facility] 10/30 through 11/11 with parainfluenza, Streptococcus bacteremia, back pain, urinary retention and falls [facility] then [facility] to [facility] 11/21 through 11/30 with hyponatremia, UTI, acute DVT/PE and iron deficiency anemia subsequently discharged to [facility] on 11/30 Re-presented to [facility] ED 12/04/2024 due to nausea, vomiting, fevers, altered mental status. She had been mentating well but the night prior to arrival she had 2 episodes ofvomiting there was concern for aspiration. In the ED she was found to be positive for influenza A and CT chest/abdomen/pelvis showed increased markings at bilateral lung bases but otherwise overall unremarkable. She was noted however to be hypoxic and was placed on Airvo in the ED. Patient ultimately weaned to nasal cannula however intermittently would have desaturations and fevers and repeat speech evaluation showed consistent aspiration and GI consult recommended, GI evaluated and performed EGD which showed concern for eosinophilic esophagitis and temporary PEG tube placed and patient made n.p.o. With PEG in place tube feeds were started and after she was made n.p.o. O2 requirements did decrease with improvement in vital signs and no further fevers. She completed her course of Levaquin and overall was improved from admission, still weak and intermittently somewhat confused but suspect this is due to prolonged n.p.o. as well as delirium and multiple recent prolonged hospitalizations. After starting her tube feeds patient is more awake and alert, still confused and somewhat weak but more interactive and more able to participate in exam. Discussed with dietitian about dispo, it was reported if patient can tolerate tube feeds at 45 (goal rate) for 4 to 6 hours she would be reasonable for D/C/transfer back to [facility] from a nutrition standpoint. Patient was able to tolerate her tube feeds at goal for the recommended amount of time, patient vitally stable and overall stable for transition back to [facility] for further care. Patient has no further acute care or in hospital needs. Patient is stable for transition to [facility] for further management given her overall stability. No new or acute complaints on day of discharge. Discharge instructions as followed: - You had a temporary PEG tube placed and will need tube feeds at this time given concerns for aspiration. Per dietitian ?Recommend Jevity 1.5 at 45mL/hr x24 hours with 160mL water flush q4 hours to provide 1620kcal, 68.9 grams protein, and 1780mL water daily. Initiate at 10mL and advance by 15mL every 8-12hours as tolerated to goal rate.? -You will need to follow-up with nutrition, per recommendation you will need to follow-up in 3 to 5 days -Speech therapy has recommended repeat MBSS in 1 to 2 weeks before considering diet advancement -You will need to follow-up with Dr. Kwan with GI in his office upon discharge. Please call his office to schedule an appointment (ph. [phone]) -Would recommend lab work (BMP) to check your potassium in 2 to 3 -Your Risperdal dose has been decreased and your Lyrica has been held due to making you overly sleepy, these can be adjusted further depending on clinical progress by physician assuming care -Please call your primary care provider's office upon discharge to schedule a hospital follow up within 1 week. -For any concerning signs or symptoms please call 911 or proceed to the nearest emergency department Physical Exam Narrative General: More alert today, cooperative, answering questions HEENT: Atraumatic Eyes: Anicteric Neck: Supple Respiratory: Improving respiratory effort, stools cough, still some crackles at the bases Cardiovascular: Regular rate and rhythm GI: Soft, nontender, nondistended Extremities: No pitting Musculoskeletal: Moving all extremities in bed Neuro: No overt focal neurological deficits, history of a positive baseline Skin: No rashes appreciated Psych: Cooperative Weight / BMI Weight Weight: 65.635 kg Body Mass Index (BMI) 23.2 ABG / Lab / Microbiology Data 12/11/24 06:31 12/11/24 06:31 Laboratory: Laboratory Results - last 24 hr 12/11/24 06:31: WBC 7.4, RBC 3.24 L, Hgb 9.6 L, Hct 30.4 L, MCV 93.8, MCH 29.6, MCHC 31.6 L, RDW Std Deviation 50.5 H, RDW Coeff of Roselyn 14.7 H, Plt Count 346, MPV 10.4, Immature Gran % (Auto) 2.600 H, Neut % (Auto) 65.8, Lymph % (Auto) 22.5, [place] % (Auto) 8.5, Eos % (Auto) 0.3, Baso % (Auto) 0.3, Absolute Neuts (auto) 4.9, Absolute Lymphs (auto) 1.67, Nucleated RBC % 0, Differential Comment, Sodium 138, Potassium 3.1 L, Chloride 102, Carbon Dioxide 21.2, Anion Gap 14, BUN 11, Creatinine 0.43 L, Estim Creat Clear Calc 55.13, Est GFR (MDRD) Non-Af 100, BUN/Creatinine Ratio 26.2 H, Glucose 141 H, Calcium 8.2, Phosphorus 2.3 L, Magnesium 1.8 Microbiology: Microbiology 12/08/24 17:09 Blood Culture (Wb) - Venous Blood Culture - Preliminary No growth in 48 hours. 12/08/24 17:09 Blood Culture (Wb) - Venous Blood Culture - Preliminary No growth in 48 hours. 12/08/24 18:15 Urine Catheter - Puentes Urine Culture - Final Culture exhibits no growth. 12/04/24 12:31 Blood Culture (Wb) - Right Wrist Blood Culture - Final No growth in 5 days. 12/04/24 12:00 Blood Culture (Wb) - Venous Blood Culture - Final No growth in 5 days. 12/04/24 11:57 Urine Catheter - Puentes Urine Culture - Final Culture exhibits no growth. 12/04/24 11:56 Mucosa - Nose SARS-CoV-2, Influenza & RSV (PCR) - Final Influenzae A D/C Instructions DC O2, CPAP, BIPAP Needs PSN CPAP & BiPAP: BiPAP & CPAP Settings per PSN Mode AIRVO 12/04/24 12:20 Bipap Delivery Device Nasal Pillows 12/04/24 11:50 Fraction of Inspired Oxygen ( 55 12/09/24 15:07 FIO2) Total Flow Rate 50 12/04/24 12:20 Home O2 Discharge instructions: Yes Type of respiratory needs?: Oxygen (2) Oxygen frequency: Continuous Continuous oxygen liters per minute: 2 DC home with Oxygen: No Meaningful Use Info Meaningful Use Meaningful Use Diagnoses (Choose all that apply): None applicable Ischemic Stroke Statin Dosing Therapy Reference: STATIN DOSE THERAPY REFERENCE: * Patients > 75 years receive moderate or high dose statin therapy. * Patients 75 years or YOUNGER should receive HIGH intensity statin dose unless contraindicated. You will be required to document reason for non-treatment if statin daily dose does not meet guidelines. HIGH DOSE STATIN THERAPY DAILY Atorvastatin > than or = to 40 mg Rosuvastatin > than or = to 20 mg Amlodipine + Atorvastatin > than or = to 2.5/40 mg Ezetimibe + Simvastatin 10/80 mg Simvastatin 80mg Discharge Plan Admission Admit Date/Time: 12/04/24 14:39 Primary Reason for Your Visit: Confusion, concerns for aspiration Attending Provider: Sonali Rousseau Primary Care Provider: Jenaro Ayers Consulting Providers: Shiv Andrews; Valarie Silver Instructions Patient Instructions: Gastrostomy Feeding Tube Care ..., Understanding PEG TubeFeeding, Feeding Tube Additional Instructions / Restrictions: DISCHARGE INSTRUCTIONS PLEASE READ *Please take this with you to your next doctors appointment* - You had a temporary PEG tube placed and will need tube feeds at this time given concerns for aspiration. Per dietitian ?Recommend Jevity 1.5 at 45mL/hr x24 hours with 160mL water flush q4 hours to provide 1620kcal, 68.9 grams protein, and 1780mL water daily. Initiate at 10mL and advance by 15mL every 8-12hours as tolerated to goal rate.? -You will need to follow-up with nutrition, per recommendation you will need to follow-up in 3 to 5 days -Speech therapy has recommended repeat MBSS in 1 to 2 weeks before considering diet advancement -You will need to follow-up with Dr. Kwan with GI in his office upon discharge. Please call his office to schedule an appointment (ph. [phone]) -Would recommend lab work (BMP) to check your potassium in 2 to 3 -Your Risperdal dose has been decreased and your Lyrica has been held due to making you overly sleepy, these can be adjusted further depending on clinical progress by physician assuming care -Please call your primary care provider's office upon discharge to schedule a hospital follow up within 1 week. -For any concerning signs or symptoms please call 911 or proceed to the nearest emergency department Discharge Orders/Prescriptions Prescriptions: New Jevity 1.5 Davide 0.06 gram-1.5 kcal/mL liquid See Rx Instructions .ROUTE .COMPLEX Qty: 5688 0RF Rx Instructions: Recommend Jevity 1.5 at 45mL/hr x24 hours with 160mL water flush q4 hours to provide 1620kcal, 68.9 grams protein, and 1780mL water daily. Initiate at 10mL and advance by 15mL every 8-12 hours as tolerated to goal rate. Continued garlic 200 mg tablet 200 mg PO DAILY cholecalciferol (vitamin D3) 25 mcg (1,000 unit) tablet 1,000 unit PO DAILY Eliquis 5 mg tablet 5 mg PO BID ferrous sulfate [Feosol] 325 mg (65 mg iron) tablet 325 mg PO BID lisinopril 20 mg tablet 20 mg PO DAILY sennosides-docusate sodium [Stimulant Laxative Plus] 8.6-50 mg Tablet 1 tab-cap PO BID metoprolol succinate 50 mg tablet extended release 24 hr 50 mg PO DAILY Qty: 90 3RF amlodipine 5 mg tablet 5 mg PO DAILY Qty: 90 3RF Changed risperidone 0.5 mg Tablet 0.25 mg PO QHS Qty: 0 0RF Discontinued pregabalin [Lyrica] 50 mg capsule 50 mg PO TID tamsulosin 0.4 mg Capsule 0.4 mg PO DAILY@1730 Qty: 0 0RF Referrals / Follow Up: Jenaro Ayers MD [Primary Care Provider] - Care Physician,No Primary [Non-Staff] - Disposition Disposition (needs filled in before D/C Order can be placed): NonSkilled NH/Intermed Care Charges/Coding Visit Charges Inpatient E&M: 75290 Disch Hosp >30min 12/11/24 1645 <Electronically signed by Sonali Rousseau MD> Cosigner Signature (if applicable): CC: Dr. Jenaro Ayers MD; Dr. Sonali Rousseau MD~ Signed [facility] Work Phone: 1(367) 329-884003-14-2025 Discharge summary Author Sonali Rousseau [facility] Note Date/Time December 11, 2024 4:4 4pm [facility] Medical Records Department [address] [place] [address] Transfer to [facility] MR#: [id number] Acct: [id number] Name: CLARITZA BURTON Rep #:[id number] : 1945 79 From: Sonali Rousseau MD PCP: Dr. Jenaro Ayers MD Status:ADM IN Certification of patient admission REQUIRED AT TIME OF ADMISSION. I CERTIFY THAT POST-HOSPITAL ECF SERVICES ARE REQUIRED TO BE GIVEN ON AN IN-PATIENT BASIS BECAUSE OF THE ABOVE NAMED PATIENT'S NEED FOR JAIL CARE ON A CONTINUING BASIS FOR THE CONDITION(S) FOR WHICH HE/SHE WAS RECEIVING IN-PATIENT HOSPITAL SERVICES PRIOR TO HIS/HER TRANSFER TO THE ECF. 12/11/24 1644<Electronically signed by Sonali Rousseau MD> Diet Diet Order/Speech Therapy: 12/07/24 08:50 NPO [Diet: Nothing Per Oral] Diet Comments: Ok for critical meds crushed in if fully alert, meds by IV as able Tube Feed: jevity 1.5 at 45mL/hr x24h w/ 160mL h20 flush q4hr Routine Orders/Code Status Suppository Type: Dulcolax 10mg Suppository Frequency: Daily PRN Routine Lab Work: BMP (potassium) Code Status: Full Code DC O2, CPAP, BIPAP needs Home O2 Discharge instructions: Yes Type of respiratory needs?: Oxygen (2) Oxygen frequency: Continuous Continuous oxygen liters per minute: 2 Wound(s) coccyx: Wound Type: Pressure Injury mid abd: Wound Type: PEG Therapies Physical Therapy: Eval and Treat Occupational Therapy: Eval and Treat Speech Therapy: Eval and Treat Problem/Diagnosis (1) Influenza A: Status: Acute Code(s): J10.1 - Influenza due to other identified influenza virus with other respiratorymanifestations (2) Acute hypoxic respiratory failure: Status: Acute Code(s): J96.01 - Acute respiratory failure with hypoxia Plan # Acute hypoxic respiratory failure secondary to influenza A with aspiration pneumonia # Dysphagia with recurrent aspiration-concern for eosinophilic esophagitis on EGD # Recent DVT and PE # Hypertension # Chronic back pain # History of urinary retention with Puentes in place # Cerebral palsy 79-year-old female with history as above as well as recent prolonged hospitalization at [facility] 10/30 through 11/11 with parainfluenza, Streptococcus bacteremia, back pain, urinary retention and falls subsequently discharged home in [facility] and then admitted to [facility] 11/21 through 11/30 with hyponatremia, UTI, acute DVT/PE and iron deficiency anemia subsequently discharged to [facility] on 11/30 Re-presented to [facility] ED 12/04/2024 due to nausea, vomiting, fevers, altered mental status. She had been mentating well but the night prior to arrival she had 2 episodes ofvomiting there was concern for aspiration. In the ED she was found to be positive for influenza A and CT chest/abdomen/pelvis showed increased markings at bilateral lung bases but otherwise overall unremarkable. She was noted however to be hypoxic and was placed on Airvo in the ED. Patient ultimately weaned to nasal cannula however intermittently would have desaturations and fevers and repeat speech evaluation showed consistent aspiration and GI consult recommended, GI evaluated and performed EGD which showed concern for eosinophilic esophagitis and temporary PEG tube placed and patient made n.p.o. With PEG in place tube feeds were started and after she was made n.p.o. O2 requirements did decrease with improvement in vital signs and no further fevers. She completed her course of Levaquin and overall was improved from admission, still weak and intermittently somewhat confused but suspect this is due to prolonged n.p.o. as well as delirium and multiple recent prolonged hospitalizations. After starting her tube feeds patient is more awake and alert, still confused and somewhat weak but more interactive and more able to participate in exam. Discussed with dietitian about dispo, it was reported if patient can tolerate tube feeds at 45 (goal rate) for 4 to 6 hours she would be reasonable for D/C/transfer back to [facility] from a nutrition standpoint. Patient was able to tolerate her tube feeds at goal for the recommended amount of time, patient vitally stable and overall stable for transition back to [facility] for further care. Patient has no further acute care or in hospital needs. Patient is stable for transition to [facility] for further management given her overall stability. No new or acute complaints on day of discharge. Discharge instructions as followed: - You had a temporary PEG tube placed and will need tube feeds at this time given concerns for aspiration. Per dietitian ?Recommend Jevity 1.5 at 45mL/hr x24 hours with 160mL water flush q4 hours to provide 1620kcal, 68.9 grams protein, and 1780mL water daily. Initiate at 10mL and advance by 15mL every 8-12hours as tolerated to goal rate.? -You will need to follow-up with nutrition, per recommendation you will need to follow-up in 3 to 5 days -Speech therapy has recommended repeat MBSS in 1 to 2 weeks before considering diet advancement -You will need to follow-up with Dr. Kwan with GI in his office upon discharge. Please call his office to schedule an appointment (ph. [phone]) -Would recommend lab work (BMP) to check your potassium in 2 to 3 -Your Risperdal dose has been decreased and your Lyrica has been held due to making you overly sleepy, these can be adjusted further depending on clinical progress by physician assuming care -Please call your primary care provider's office upon discharge to schedule a hospital follow up within 1 week. -For any concerning signs or symptoms please call 911 or proceed to the nearest emergency department Allergies/Procedures Done in Hospital Allergies amantadine (From Symmetrel) Adverse Reaction (Severe, Verified 12/09/24 14:55) Unknown amoxicillin (From Augmentin) Adverse Reaction (Severe, Verified 12/09/24 14:55) Unknown clavulanic acid (From Augmentin) Adverse Reaction (Severe, Verified 10/30/24 11:00) Unknown erythromycin base Adverse Reaction (Severe, Verified 12/09/24 14:55) Unknown lorazepam (From Ativan) Adverse Reaction (Verified 12/09/24 14:55) restless Procedures: - (EGD with peg placement, multiple swallow evals) Type of Care/Length of Stay Estimated LOS: More Than 30 Days Type of Care Needed: Intermediate Rehab Potential: Fair Prognosis: Fair Additional Orders/Day of Discharge Day of Discharge: 12/11/24 Dietary and Speech Recommendations Dietitian Recommendations/Changes: -N.p.o. until repeat swallow eval- recommended repeat MBSS in 1-2 weeks -Kemar as needed to support wound healing; coccyx pressure injury noted red. - Recommend Jevity 1.5 at 45mL/hr x24 hours with 160mL water flush q4 hours to provide 1620kcal, 68.9 grams protein, and 1780mL water daily. Initiate at 10mL and advance by 15mL every 8-12 hours as tolerated to goal rate. Discharge Plan Admission Admit Date/Time: 12/04/24 14:39 Primary Reason for Your Visit: Confusion, concerns for aspiration Attending Provider: Sonali Rousseau Primary Care Provider: Jenaro Ayers Consulting Providers: Shiv Andrews; Valarie Silver Instructions Patient Instructions: Gastrostomy Feeding Tube Care ..., Understanding PEG TubeFeeding, Feeding Tube Additional Instructions / Restrictions: DISCHARGE INSTRUCTIONS PLEASE READ *Please take this with you to your next doctors appointment* - You had a temporary PEG tube placed and will need tube feeds at this time given concerns for aspiration. Per dietitian ?Recommend Jevity 1.5 at 45mL/hr x24 hours with 160mL water flush q4 hours to provide 1620kcal, 68.9 grams protein, and 1780mL water daily. Initiate at 10mL and advance by 15mL every 8-12hours as tolerated to goal rate.? -You will need to follow-up with nutrition, per recommendation you will need to follow-up in 3 to 5 days -Speech therapy has recommended repeat MBSS in 1 to 2 weeks before considering diet advancement -You will need to follow-up with Dr. Kwan with GI in his office upon discharge. Please call his office to schedule an appointment (ph. [phone]) -Would recommend lab work (BMP) to check your potassium in 2 to 3 -Your Risperdal dose has been decreased and your Lyrica has been held due to making you overly sleepy, these can be adjusted further depending on clinical progress by physician assuming care -Please call your primary care provider's office upon discharge to schedule a hospital follow up within 1 week. -For any concerning signs or symptoms please call 911 or proceed to the nearest emergency department Discharge Orders/Prescriptions Prescriptions: New Jevity 1.5 Davide 0.06 gram-1.5 kcal/mL liquid See Rx Instructions .ROUTE .COMPLEX Qty: 5688 0RF Rx Instructions: Recommend Jevity 1.5 at 45mL/hr x24 hours with 160mL water flush q4 hours to provide 1620kcal, 68.9 grams protein, and 1780mL water daily. Initiate at 10mL and advance by 15mL every 8-12 hours as tolerated to goal rate. Continued garlic 200 mg tablet 200 mg PO DAILY cholecalciferol (vitamin D3) 25 mcg (1,000 unit) tablet 1,000 unit PO DAILY Eliquis 5 mg tablet 5 mg PO BID ferrous sulfate [Feosol] 325 mg (65 mg iron) tablet 325 mg PO BID lisinopril 20 mg tablet 20 mg PO DAILY sennosides-docusate sodium [Stimulant Laxative Plus] 8.6-50 mg Tablet 1 tab-cap PO BID metoprolol succinate 50 mg tablet extended release 24 hr 50 mg PO DAILY Qty: 90 3RF amlodipine 5 mg tablet 5 mg PO DAILY Qty: 90 3RF Changed risperidone 0.5 mg Tablet 0.25 mg PO QHS Qty: 0 0RF Discontinued pregabalin [Lyrica] 50 mg capsule 50 mg PO TID tamsulosin 0.4 mg Capsule 0.4 mg PO DAILY@1730 Qty: 0 0RF Referrals / Follow Up: Jenaro Ayers MD [Primary Care Provider] - Care Physician,No Primary [Non-Staff] - Disposition Disposition (needs filled in before D/C Order can be placed): NonSkilled NH/Intermed Care 12/11/24 1644 <Electronically signed by Sonali Rousseau MD> Cosigner Signature (if applicable): CC: Dr. Shiv Andrews DO; Dr. Jenaro Ayers MD; Dr. Valarie Silver MD ~ [facility] Work Phone: 1(933) 866-188703-14-2025 [facility]03-13-2025 Progress note Author Cristino Friend [facility] Note Date/Time December 10, 2024 6:0 0pm [facility] Medical Records Department [address] [place] [address] Progress Note 12/10/24 1758 MR#: [id number] Acct: [id number] Name: CLARITZA BURTON Rep #:[id number] : 1945 79 From: Cristino Kwan DO PCP: Dr. Jenaro Ayers MD Status:ADM IN Location: [place] [address] Progress Note Patient underwent EGD with biopsies of the esophagus for eosinophilic esophagitis and placement of PEG tube. Physical Exam Narrative General: Resting comfortably in bed, very tired HEENT: Atraumatic Eyes: Not spontaneously opening eyes this patient is very tired Neck: Supple Respiratory: Improving respiratory effort Cardiovascular: Regular rate GI: Soft, nontender, nondistended. PEG tube in place without any signs of erythema or bleeding Extremities: No significant pitting edema Musculoskeletal: Turned sideways resting comfortably Neuro: No overt focal neurological deficits on exam the patient not able to thoroughly participate in exam Skin: No rashes appreciated Psych: Resting comfortably Assessment & Plan Assessment/Plan (1) Influenza A: (2) Acute hypoxic respiratory failure: PLAN: Plan 79-year-old with cerebral palsy and acute hypoxic respiratory failure due to acute influenza infection and concern for aspiration pneumonia * patient remains on oxygen and is down to 2L today * influenza screen was positive in the ED * CT chest showed increased markings at the lung base concerning for atelectasis versus pneumonia but otherwise fairly clear. * On IV Solu-Medrol, IV Levaquin and Tamiflu. Speech therapy also consulted due to concerns for dysphagia. * She was on modified diet per speech therapy. However after undergoing repeat speech eval and her having severe dysphagia with aspiration she is n.p.o. I talked to her family about undergoing an upper endoscopy with esophageal dilation and possible temporary PEG tube placement. They will think about what they want to do is a family. * Titrate oxygen to maintain saturation above 90%. Breathing treatments with bronchodilators. Patient will undergo upper endoscopy with possible PEG placement. Patient is probably turn was explained alternatives, risk and benefits include not withstanding bleeding, infection, sepsis, perforation, need for return to . She well have an ASA of 3. 12/10/24-patient is doing well and tolerating tube feedings. Continue conservative therapy. Await biopsies of the esophagus. Visit Charges Inpatient E&M: 94051 Subs Hosp L3 12/10/24 1800 <Electronically signed by Cristino Kwan DO> Cristino Kwan DO Cosigner Signature (if applicable): CC: ~ Signed [facility] Work Phone: 1(994) 698-135403-13-2025 Progress note Author Sonali Rousseau [facility] Note Date/Time December 10, 2024 11: 14am [facility] Medical Records Department [address] [place] [address] Progress Note - Hospitalist 12/10/24 0800 MR#: [id number] Acct: [id number] Name: CLARITZA BURTON Rep #:[id number] : 1945 79 From: Sonali Rousseau MD PCP: Dr. Jenaro Ayers MD Status:ADM IN Location: [facility] JE846-8 Reason for Visit Reason for Visit: Diagnoses Influenza due to other identified influenza virus with other respiratory manifestations (12/04/24) Acute respiratory failure with hypoxia (12/04/24) Subjective Subjective Patient resting comfortably, very tired after receiving Risperdal and Lyrica Objective Data Objective Data Vital Signs: Vital Signs Temp Pulse Resp BP Pulse Ox O2 Del Method O2 Flow Rate 97.4 F L 78 21 H 143/50 H 98 Nasal Cannula 3 12/10/24 06:00 12/10/24 06:07 12/10/24 06:00 12/10/24 06:07 12/10/24 07:22 12/10/24 07:22 12/10/24 07:22 FiO2 55 12/09/24 15:07 Oxygen Flow Rate (L/min) 3 Oxygen Delivery Method Nasal Cannula Weight: 67.1 kg Body Mass Index (BMI) 23.8 Intake & Output: Intake and Output for Last 24 Hours 12/08/24 12/09/24 12/10/24 23:59 23:59 23:59 Intake Total 650 / 675 2175 / 2235 1060 / 1060 Output Total 825 / 1100 3225 / 3625 525 / 525 Balance -175 / -425 -1050 / -1390 535 / 535 Lab / Micro Data 12/10/24 06:00 12/10/24 06:00 Labs: Laboratory Results - last 24 hr 12/10/24 06:00: WBC 5.3, RBC 3.04 L, Hgb 9.1 L, Hct 28.4 L, MCV 93.4, MCH 29.9, MCHC 32.0, RDW Std Deviation 50.9 H, RDW Coeff of Roselyn 14.8 H, Plt Count 302, MPV10.1, Immature Gran % (Auto) 1.700 H, Neut % (Auto) 57.3, Lymph % (Auto) 29.2, [place] % (Auto) 11.4 H, Eos % (Auto) 0.0, Baso % (Auto) 0.4, Absolute Neuts (auto) 3.0, Absolute Lymphs (auto) 1.54, Nucleated RBC % 0, Differential Comment SCANNED, Platelet Estimate ADEQUATE, RBC Morphology NORM C+C Micro: Microbiology 12/04/24 12:31 Blood Culture (Wb) - Right Wrist Blood Culture - Final No growth in 5 days. 12/04/24 12:00 Blood Culture (Wb) - Venous Blood Culture - Final No growth in 5 days. 12/08/24 18:15 Urine Catheter - Puentes Urine Culture - Preliminary Culture exhibits no growth. 12/04/24 11:57 Urine Catheter - Puentes Urine Culture - Final Culture exhibits no growth. 12/04/24 11:56 Mucosa - Nose SARS-CoV-2, Influenza & RSV (PCR) - Final Influenzae A Rhythm Strip Rhythm Strip: Sinus Tach Rate: 120 Ectopy: None Physical Exam Narrative General: Resting comfortably in bed, very tired HEENT: Atraumatic Eyes: Not spontaneously opening eyes this patient is very tired Neck: Supple Respiratory: Improving respiratory effort Cardiovascular: Regular rate GI: Soft, nontender, nondistended Extremities: No significant pitting edema Musculoskeletal: Turned sideways resting comfortably Neuro: No overt focal neurological deficits on exam the patient not able to thoroughly participate in exam Skin: No rashes appreciated Psych: Resting comfortably Assessment & Plan Assessment/Plan (1) Influenza A: (2) Acute hypoxic respiratory failure: PLAN: Plan # Acute hypoxic respiratory failure secondary to influenza A with possible aspiration pneumonia -Patient presented with influenza A and CT of the chest with concern for early left lower lobe infiltrate -Patient on Tamiflu and Levaquin -On 2 to 3 L O2 this a.m. but there is concern for repeat aspiration so patient bumped up to 4 L and made n.p.o. -Once more alert patient have repeat speech evaluation, my exam she was able to wake up and talk with me, confused about where she was but knew it was 2024 -12/08: Patient on Levaquin, speech study today showed patient with aspiration tomultiple thicknesses and GI consult recommended, this was placed, further dispo pending consult -12/09: Patient weaned down off O2 as of this a.m. but has had vacillating requirements, remains n.p.o., remains on Levaquin -12/10: On Levaquin, patient on 3 L O2 this a.m. however saturating 98%, suspect this can be weaned off. Has not been febrile since midday on 12/08 and repeat cultures no growth to date # Recent DVT and PE -Imaging had shown extensive left lower extremity DVT as well as a right popliteal DVT and segmental and subsegmental PE, patient on Eliquis -12/08: Patient has been n.p.o. and is unclear when she will be cleared for p.o.,given recent DVT and PE will switch her to subcu Lovenox in the meantime -12/09: Continue Lovenox while patient remains n.p.o., patient to have EGD and possible PEG today so a.m. dose was held -12/10: Back on her Lovenox full dose subcu #Hypertension and tachycardia -Patient on 20 of lisinopril, 50 metoprolol, 5 of amlodipine, these were resumed12/06, continue to monitor and titrate as indicated -12/08: Blood pressure 144/72 however patient has not received her medications asshe is n.p.o., continue to monitor, can consider IV if needed if patient will have prolonged n.p.o. -12/09: Patient has not been able to receive her oral metoprolol due to prolongedn.p.o. and has had vacillating blood pressures and heart rates, seems to be improving on 2.5 mg of IV metoprolol every 6 -12/10: Can begin to transition medications to G-tube once cleared to do so #Continued aspiration -12/08: Speech following, patient failed speech study recommended GI consult so GI has been consulted, further dispo pending consult. Patient remains n.p.o., Patient on IV fluids at this time especially given she appears to have dried membranes -12/09: GI evaluated patient, family agreeable to EGD with possible dilation and possible temporary PEG placement -12/10: Patient with PEG placement, dietitian already on board, appreciate recommendations, once patient with nutrition plan in place unable to tolerate will likely be able to DC to [facility] Chronic medical problems: #CP -Supportive care -PT/OT # History of urinary retention -Patient with Puentes catheter in place #DVT ppx: Patient on Eliquis Sonali Rousseau MD Time spent in the patient's overall evaluation, decision-making process, review of diagnostic data, adjustment of management, discussion with other providers, nursing and ancillary staff involved in patient's care documentation, 36 Minutes Charges/Coding Visit Charges Inpatient E&M: 21472 Subs Hosp L2 12/10/24 1114 <Electronically signed by Sonali Rousseau MD> Cosigner Signature (if applicable): CC: ~ Signed [facility] Work Phone: 1(285) 459-408803-12-2025 Consult note Author Rodger Bustos [facility] Note Date/Time December 09, 2024 4:4 8pm [facility] Medical Records Department [address] [place] [address] Anesthesia Postop Eval II 12/09/24 1648 MR#: [id number] Acct: [id number] Name: CLARITZA BURTON Rep #:[id number] : 1945 79 From: Rodger Bustso MD PCP: Dr. Jenaro Ayers MD Status:ADM IN Y Race: C Location: [place] [address] Anesthesia Postop Eval I Sum Postop Eval Completion status Anesthesia document: Postop Eval 1 completed: Yes Anesthesia Postop Eval I Summary Anesthesia Postop Eval I Summary: Anesthesia Postop Eval I: Assessment Summary Airway patent Yes 12/09/24 16:38 LASER [email or web address].TNES Spontaneous unlabored Yes 12/09/24 16:38 LASER SPECIALIST.TNES respirations Mental status nausea No 12/09/24 16:38 LASER SPECIALIST.TNES Vomiting No 12/09/24 16:38 LASER SPECIALIST.TNES Anesthesia Postop Eval I: Fluid Summary Crystalloid volume administer 100 12/09/24 16:38 LASER SPECIALIST.TNES (ml) Colloids volume administered ( ml) Blood Product volume administered (ml) Total IV fluid infused 100 12/09/24 16:38 LASER [email or web address].TNES Anesthesia Postop Eval I: Summary Notes Anesthesia Complication No 12/09/24 16:38 LASER SPECIALIST.TNES Anesthesia Complication Comment: Post-operative progress note Anesthesia: Postop Eval II Evaluation Mental status: Awake Pain Level: 0 nausea: No Vomiting: No 12/09/241647 <Electronically signed by Rodger Bustos MD > Date _ Rodger Bustos MD Cosigner Signature: Date CC: ~ Signed [facility] Work Phone: 1(757) 260-422303-12-2025 Consult note Author Jordan Tom [facility] Note Date/Time December 09, 2024 4:3 8pm [facility] Medical Records Department [address] [address] Anesthesia Postop Eval I 12/09/241637 MR#: [id number] Acct: [id number] Name: CLARITZA BURTON Rep #:[id number] : 1945 79 From: Jordan CARCAMO PCP: Dr. Jenaro Ayers MD Status:ADM IN Y Race: C Location: [place] [address] Anesthesia: Postop Eval I Current Vital Signs Temperature: 98.4 F Pulse Rate: 123 Blood Pressure: 129/61 Respiratory Rate: 16 Pulse Ox: 90 Assessment Airway patent: Yes Spontaneous unlabored respirations: Yes nausea: No Vomiting: No Anesthesia Complication: No Fluid Hydration Crystalloid volume administer (ml): 100 Total IV fluid infused: 100 Progress Note Anesthesia document: Postop Eval 1 completed: Yes 12/09/241637 <Electronically signed by Jordan Tom CRNA> Date _ Jordan Tom CRNA Cosigner Signature: Date CC: ~ Signed [facility] Work Phone: 1(759) 131-565703-12-2025 Progress note Author Cristino Kwan [facility] Note Date/Time December 09, 2024 3:1 9pm [facility] Medical Records Department [address] [place] [address] Progress Note 12/09/247 MR#: [id number] Acct: [id number] Name: CLARITZA BURTON Rep #:[id number] : 1945 79 From: Cristino Kwan DO PCP: Dr. Jenaro Ayers MD Status:ADM IN Location: [place] [address] Progress Note Patient's family agreed to have PEG tube placed if needed due to severe aspiration pneumonia in the setting of severe oropharyngeal dysphagia Physical Exam Const alert, oriented x3, no apparent distress and healthy appearing General Appearance: cooperative GI normal to inspection, nondistended, normoactive bowel sounds, soft to palpation,non-tender and non-distended Percussion: normal to percussion Rectal Exam: deferred Assessment & Plan Assessment/Plan (1) Influenza A: (2) Acute hypoxic respiratory failure: PLAN: Plan 79-year-old with cerebral palsy and acute hypoxic respiratory failure due to acute influenza infection and concern for aspiration pneumonia * patient remains on oxygen and is down to 2L today * influenza screen was positive in the ED * CT chest showed increased markings at the lung base concerning for atelectasis versus pneumonia but otherwise fairly clear. * On IV Solu-Medrol, IV Levaquin and Tamiflu. Speech therapy also consulted due to concerns for dysphagia. * She was on modified diet per speech therapy. However after undergoing repeat speech eval and her having severe dysphagia with aspiration she is n.p.o. I talked to her family about undergoing an upper endoscopy with esophageal dilation and possible temporary PEG tube placement. They will think about what they want to do is a family. * Titrate oxygen to maintain saturation above 90%. Breathing treatments with bronchodilators. Patient will undergo upper endoscopy with possible PEG placement. Patient is probably turn was explained alternatives, risk and benefits include not withstanding bleeding, infection, sepsis, perforation, need for return to . She well have an ASA of 3. Visit Charges Inpatient E&M: 88225 Subs Hosp L3 12/09/24 6106 <Electronically signed by Cristino Kwan DO> Cristino Kwan DO Cosigner Signature (if applicable): CC: ~ Signed [facility] Work Phone: 1(887) 976-619703-12-2025 Consult note Author Rodger Bustos [facility] Note Date/Time December 09, 2024 3:0 7[facility] Medical Records Department [address] [place] [address] Pre-Anesthesia Evaluation 12/09/24 1506 MR#: [id number] Acct: [id number] Name: CLARITZA BURTON Rep #:[id number] : 1945 79 From: Rodger Bustos MD PCP: Dr. Jenaro Ayers MD Status:ADM IN Y Race: C Location: [place] [address] ASA Classification* ASA Classification ASA Classification: 3 Assessment & Plan Anesthesia* Anesthesia Assessment Anesthesia Assessment: Discussed sedation and/or anesthesia options, risks, benefits, and alternatives with patient/parents/legal guardian/POA. Questions invited. The patient/parents/legal guardian/POA seems to understand and agrees to proceedwith anesthesia plan. Reviewed the physical assessment, medical history, allergy history and patient home medications list prior to surgery/procedure/anesthetic and documented any changes. Performed airway and anesthesia risk assessments. Anesthesia Type Anesthesia Type: MAC Anesthesia Focused Assessment* Temperature: 98.4 F Pulse Rate: 104 Blood Pressure: 147/62 Respiratory Rate: 20 Pulse Ox: 95 Oxygen Flow Rate (L/min): 4 Fraction of Inspired Oxygen (FIO2): 55 Airway Assessment Mouth opens: >3 cm Mallampati Score: II Focused Labs Anesthesia Preop lab: CBC WBC 6.6 K/mm3 (4.4-11.0) 12/09/24 03:52 12/09/24 RBC 3.30 M/mm3 (4.2-5.4) L 12/09/24 03:52 12/09/24 Hgb 10.0 g/dL (12.0-15.0) L 12/09/24 03:52 5 Hct 30.6 % (37-47) L 12/09/24 03:52 12/09/24 Plt Count 318 K/mm3 (150-450) 12/09/24 03:52 12/09/24 CHEMISTRY Potassium 3.3 mmol/L (3.3-5.1) 12/09/24 03:52 12/09/24 Sodium 137 mmol/L (133-145) 12/09/24 03:52 12/09/24 Magnesium 1.9 mg/dL (1.6-2.6) 11/06/24 05:44 11/06/24 Phosphorus 2.5 mg/dL (2.5-4.9) 11/06/24 05:44 11/06/24 BUN 10 mg/dL (4-19) 12/09/24 03:52 12/09/24 Creatinine 0.37 mg/dL (0.70-1.20) L 12/09/24 03:52 Glucose 76 mg/dL (70-99) 12/09/24 03:52 12/09/24 TSH 0.640 uIU/mL (0.358-3.740) 10/30/24 00:00 10/02 10/24 COAG PT 16.2 SECONDS (11.7-14.9) H 12/04/24 12:31 04/23 Pre-Assessment Diagnosis/Proposed Procedure Planned Operative Procedure(s): EGD Anesthesia History 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 When Was Last Pacemaker Check QUESTION #4 FULL TEXT: You/Your Family Experience fever (hyperthermia) with Anesthesia Last Oral Intake Last Oral intake: Last Oral Intake NPO since Meds taken in AM with sips of water? Meds patient instructed to take am of surgery PONV PONV - biochemistry professor: PONV - biochemistry professor Female HX of Motion Sickness HX of N/V After Surgery Non-Smoker Duration of Surgery greater than 60 minutes Number of Risk Factors PONV Score Height & Weight Height & Weight: Anesthesia: Height & Weight Height 5 ft 6 in 12/09/24 10:44 Weight: 69.7 kg 12/09/24 10:44 Body Mass Index (BMI) 24.7 12/08/24 06:00 Respiratory Assessment Respiratory Assessment - biochemistry professor: Respiratory Tract Infection Hx - biochemistry professor Hx Respiratory Tract Infection STOP Sleep Apnea STOP Sleep Apnea - biochemistry professor: STOP Sleep Apnea - biochemistry professor Hx Hypertension Yes 12/06/24 07:58 Hx Sleep Apnea No 12/04/24 16:45 CPAP BIPAP Do you snore loudly (louder No 12/04/24 16:45 than talking or can be heard Do you often feel tired/ No 12/04/24 16:45 fatigued/ sleepy during daytime? Has anyone observed you stop No 12/04/24 16:45 breathing during sleep? STOP Results Negative 12/04/24 16:45 QUESTION #5 FULL TEXT : Do you snore loudly (louder than talking or can be heard through closed doors)? Tobacco Use History Tobacco Use History - biochemistry professor: Tobacco Use History - biochemistry professor Tobacco Use Smoking Status Never smoker 12/04/24 16:45 Hx Tobacco Use No 12/04/24 16:45 Years Smoking Packs Smoked per Day Smoking Cessation Date was within the last 15 years Hx Smoking Cessation Date Hx Smoking Cessation Counseling Hematologic Medial History Hematologic Hx - biochemistry professor: Hematologic Medical Hx - cleaning handyman Hx of Blood Transfusion No 12/04/24 16:45 Hx of Transfusion in last 3 No 12/04/24 16:45 Months Date of Last Transfusion (if within last 3 months) Ever experience any problems No 12/04/24 16:45 with transfusion(s)? Specify any problems Hx of Preganancy in last 3 No 12/04/24 16:45 Months Nurse Filling Out Transfusion JLAMP 12/04/24 16:45 & Questions: Date: 12/04/24 12/04/24 16:45 Time: 16:47 12/04/24 16:45 Patient unable to answer at this time (ie. confused, unrespo /Reproduction History /Reproductive History - biochemistry professor: /Reproductive Hx- biochemistry professor Hx Now Gestational Age (in weeks): EDC: Hx Hx Para Hx Section SAB Active Medications Active Medications: Current Medications Generic Name Dose Route Start Last Admin Trade Name Freq PRN Reason Stop Dose Admin Acetaminophen 650 mg 12/07/24 18:41 12/08/24 16:04 Acetaminophen 650 Mg Suppository RC 650 mg Q6H PRN PRN Administration Pain 1-10 or Fever Amlodipine Besylate 5 mg 12/06/24 10:25 12/09/24 10:37 Amlodipine 5 Mg Tablet PO Not Given DAILY [facility] Protocol Cholecalciferol 25 mcg 12/05/24 10:00 12/09/24 07:33 Cholecalciferol (Vit D3) 25 Mcg Tablet (1,000 Units) PO Not Given DAILY [facility] Enoxaparin Sodium 70 mg 12/08/24 10:00 12/09/24 10:23 Enoxaparin 80 Mg/0.8 Ml Syringe SC Not Given Q12 [facility] Ferrous Sulfate 325 mg 12/05/24 08:00 12/09/24 07:31 Ferrous Sulfate 325 Mg Tablet PO Not Given DAILYCM [facility] Guaifenesin 1,200 mg 12/07/24 10:00 12/09/24 07:32 Guaifenesin 1,200 Mg Tablet PO Not Given BID [facility] Levofloxacin 750 mg in 150 mls @ 100 mls/hr 12/05/24 10:00 12/09/24 12:02 Levaquin Iv IV Infused Q24 [facility] Infusion Sodium Chloride 1,000 mls @ 50 mls/hr 12/07/24 18:00 12/09/24 02:44 IV 12/10/24 13:59 50 mls/hr .Q20H [facility] Administration Protocol Lisinopril 20 mg 12/06/24 10:25 12/09/24 10:37 Lisinopril 20 Mg Tablet PO Not Given DAILY [facility] Protocol Metoprolol Tartrate 2.5 mg 12/09/24 06:00 12/09/24 10:37 Metoprolol Tartrate 5 Mg/5 Ml Vial IV Not Given Q6H [facility] Protocol Ondansetron HCl 4 mg 12/04/24 16:18 Ondansetron 4 Mg/2 Ml Vial IV Q8H PRN PRN NAUSEA/VOMITING Pregabalin 50 mg 12/04/24 22:00 12/09/24 11:04 Pregabalin 50 Mg Capsule PO Not Given TID [facility] Risperidone 0.5 mg 12/04/24 22:00 12/08/24 21:27 Risperidone 0.5 Mg Tablet PO 0.5 mg QHS [facility] Administration Protocol Senna/Docusate Sodium 1 tablet 12/04/24 22:00 12/09/24 07:32 Senna/Docusate Sodium 1 Tablet PO Not Given BID [facility] Sodium Chloride 10 - 40 ml 12/04/24 16:59 12/07/24 19:53 0.9 % Nacl (Sterile) Posiflush 10 Ml IV 10 ml UD PRN Administration Port access or dressing change Sodium Chloride 10 - 40 ml 12/04/24 16:59 03/10/25 18:15 0.9% Saline Lock 10 Ml Syringe IV 20 ml UD PRN Administration Midline Flush Tamsulosin HCl 0.4 mg 12/04/24 17:30 12/08/24 16:15 Tamsulosin Hcl 0.4 Mg Capsule PO Not Given DAILY@1730 [facility] Medical History Anxiety Depression Osteoporosis Non-smoker Cerebral palsy Cataract Palpitations Elevated blood pressure reading without diagnosis of hypertension Essential (primary) hypertension Home Medications ?Medication ?Instructions ?Recorded ?Last Taken ?Type garlic 200 mg tablet 200 mg PO DAILY 01/16/18 Unk nown History cholecalciferol (vitamin D3) 25 1,000 unit PO DAILY Unknown History mcg (1,000 unit) tablet metoprolol succinate 50 mg 50 mg PO DAILY #90 TABLETS 01/22/24 Unknown Rx tablet,extended release 24 hr amlodipine 5 mg tablet 5 mg PO DAILY #90 tabs 10/05 Unknown Rx risperidone 0.5 mg tablet 0.5 mg PO QHS #0 tabs Unknown Rx tamsulosin 0.4 mg capsule 0.4 mg PO DAILY@1730 #0 caps 11/11/24 Unknown Rx apixaban 5 mg tablet (Eliquis) 5 mg PO BID 12/04/24 Un known History ferrous sulfate 325 mg (65 mg 325 mg PO BID 12/04/24 U nknown History iron) tablet (Feosol) lisinopril 20 mg tablet 20 mg PO DAILY 12/04/24 Unkn own History pregabalin 50 mg capsule (Lyrica) 50 mg PO TID 5 Unknown History sennosides 8.6 mg-docusate sodium 1 tab-cap PO BID 04/23 Unknown History 50 mg tablet (Stimulant Laxative Plus) Allergy/AdvReac Type Severity Reaction Status Date / Time amantadine (From Symmetrel) AdvReac Severe Unknown Verified 12/09/24 14:55 amoxicillin (From Augmentin) AdvReac Severe Unknown Verified 12/09/24 14:55 clavulanic acid (From AdvReac Severe Unknown Verified 10/30/24 11:00 Augmentin) erythromycin base AdvReac Severe Unknown Verified 12/09/24 14:55 lorazepam (From Ativan) AdvReac restless Verified 12/09/24 14:55 Family History Father Diabetes Hypertension Mother alzhemier Osteoporosis Surgical History History of tonsillectomy History of hysterectomy History of hip replacement Social History Smoking Status: Never smoker alcohol intake: never substance use type: does not use caffeine: Yes Type: coffee Number of servings: 3 what type of physical activity do you participate in: none seatbelt use: always do you feel safe at home: Yes Review of Systems (Anesthesia) ROS Narrative System reviewed and no additional complaints, except as documented. 12/09/24 4623 <Electronically signed by Rodger Bustos MD > Date _ Rodger Bustos MD [facility] Signature: Date CC: ~ Signed [facility] Work Phone: 1(319) 861-934703-12-2025 Procedure [facility] 12-09-2024 Procedure [facility]03-12-2025 Progress note Author Sonali Rousseau [facility] Note Date/Time December 09, 2024 10: 46am [facility] Medical Records Department [address] [place] [address] Progress Note - Hospitalist 12/09/24 0743 MR#: [id number] Acct: [id number] Name: CLARITZA BURTON Rep #:[id number] : 1945 79 From: Sonali Rousseau MD PCP: Dr. Jenaro Ayers MD Status:ADM IN Location: [place] [address] Reason for Visit Reason for Visit: Diagnoses Influenza due to other identified influenza virus with other respiratory manifestations (12/04/24) Acute respiratory failure with hypoxia (12/04/24) Subjective Subjective Patient resting in bed, reports she got up and got a bath this morning but it was cold so she went back to bed, patient confused Objective Data Objective Data Vital Signs: Vital Signs Temp Pulse Resp BP Pulse Ox O2 Del Method O2 Flow Rate 98.2 F 90 21 H 138/81 H 93 Room Air 4 12/09/24 06:00 12/09/24 06:00 12/09/24 06:00 12/09/24 06:00 12/09/24 06:00 12/09/24 06:00 12/08/24 20:24 FiO2 55 12/04/24 15:07 Oxygen Flow Rate (L/min) 4 Oxygen Delivery Method Room Air Weight: 69.7 kg Body Mass Index (BMI) 24.7 Intake & Output: Intake and Output for Last 24 Hours 12/07/24 12/08/24 12/09/24 23:59 23:59 23:59 Intake Total 480 / 480 650 / 675 1025 / 1025 Output Total 250 / 500 825 / 1100 875 / 875 Balance 230 / -20 -175 / -425 150 / 150 Lab / Micro Data 12/09/24 03:52 12/09/24 03:52 Labs: Laboratory Results - last 24 hr 12/08/24 17:51: Urine Color Yellow, Urine Clarity Sl. Cloudy, Urine pH 5.0, Ur Specific [place] 1.020, Urine Protein 100 H, Urine Glucose (UA) Normal, Urine Ketones 150 A*, Urine Occult Blood 250 H, Urine Nitrite Negative, Urine Bilirubin Negative, Urine Urobilinogen Normal, Ur Leukocyte Esterase 25 H, UrineRBC > 100 SEEN, Urine WBC 0-5 SEEN, Ur Squamous Epith Cells 0-5 SEEN, Amorphous Sediment 2+ URATE, Urine Bacteria RARE, Urine Mucus 0 SEEN 12/09/24 03:52: WBC 6.6, RBC 3.30 L, Hgb 10.0 L, Hct 30.6 L, MCV 92.7, MCH 30.3,MCHC 32.7, RDW Std Deviation 49.4 H, RDW Coeff of Roselyn 14.6, Plt Count 318, MPV 10.1, Immature Gran % (Auto) 0.800, Neut % (Auto) 66.5, Lymph % (Auto) 23.4, [place] % (Auto) 8.8, Eos % (Auto) 0.2, Baso % (Auto) 0.3, Absolute Neuts (auto) 4.4, Absolute Lymphs (auto) 1.54, Nucleated RBC % 0, Sodium 137, Potassium 3.3, Chloride 104, Carbon Dioxide 20.1 L, Anion Gap 13, BUN 10, Creatinine 0.37 L, Estim Creat Clear Calc 55.13, Est GFR (MDRD) Non-Af 104, BUN/Creatinine Ratio 27.9 H, Glucose 76, Calcium 7.7 Micro: Microbiology 12/04/24 12:31 Blood Culture (Wb) - Right Wrist Blood Culture - Preliminary No growth in 48 hours. 12/04/24 12:00 Blood Culture (Wb) - Venous Blood Culture - Preliminary No growth in 48 hours. 12/04/24 11:57 Urine Catheter - Puentes Urine Culture - Final Culture exhibits no growth. 12/04/24 11:56 Mucosa - Nose SARS-CoV-2, Influenza & RSV (PCR) - Final Influenzae A Rhythm Strip Rhythm Strip: Sinus Tach Rate: 120 Ectopy: None Physical Exam Narrative General: Pleasantly confused HEENT: Atraumatic Eyes: Anicteric, normal conjunctiva, extraocular movements grossly intact Neck: Supple Respiratory: Somewhat coarse at bases, fairly normal respiratory effort Cardiovascular: Regular rate GI: Soft, nontender, nondistended Extremities: Moving extremities in bed, no significant pitting edema Musculoskeletal: Moving extremities in bed Neuro: No overt focal neurological deficits on exam the patient not able to thoroughly participate in exam Skin: No rashes appreciated Psych: Attempts to be cooperative Assessment & Plan Assessment/Plan (1) Influenza A: (2) Acute hypoxic respiratory failure: PLAN: Plan # Acute hypoxic respiratory failure secondary to influenza A with possible aspiration pneumonia -Patient presented with influenza A and CT of the chest with concern for early left lower lobe infiltrate -Patient on Tamiflu and Levaquin -On 2 to 3 L O2 this a.m. but there is concern for repeat aspiration so patient bumped up to 4 L and made n.p.o. -Once more alert patient have repeat speech evaluation, my exam she was able to wake up and talk with me, confused about where she was but knew it was 2024 -12/08: Patient on Levaquin, speech study today showed patient with aspiration tomultiple thicknesses and GI consult recommended, this was placed, further dispo pending consult -12/09: Patient weaned down off O2 as of this a.m. but has had vacillating requirements, remains n.p.o., remains on Levaquin # Recent DVT and PE -Imaging had shown extensive left lower extremity DVT as well as a right popliteal DVT and segmental and subsegmental PE, patient on Eliquis -12/08: Patient has been n.p.o. and is unclear when she will be cleared for p.o.,given recent DVT and PE will switch her to subcu Lovenox in the meantime -12/09: Continue Lovenox while patient remains n.p.o., patient to have EGD and possible PEG today so a.m. dose was held #Hypertension and tachycardia -Patient on 20 of lisinopril, 50 metoprolol, 5 of amlodipine, these were resumed12/06, continue to monitor and titrate as indicated -12/08: Blood pressure 144/72 however patient has not received her medications asshe is n.p.o., continue to monitor, can consider IV if needed if patient will have prolonged n.p.o. -12/09: Patient has not been able to receive her oral metoprolol due to prolongedn.p.o. and has had vacillating blood pressures and heart rates, seems to be improving on 2.5 mg of IV metoprolol every 6 #Continued aspiration -12/08: Speech following, patient failed speech study recommended GI consult so GI has been consulted, further dispo pending consult. Patient remains n.p.o., Patient on IV fluids at this time especially given she appears to have dried membranes -12/09: GI evaluated patient, family agreeable to EGD with possible dilation and possible temporary PEG placement Chronic medical problems: #CP -Supportive care -PT/OT # History of urinary retention -Patient with Puentes catheter in place #DVT ppx: Patient on Eliquis Sonali Rousseau MD Time spent in the patient's overall evaluation, decision-making process, review of diagnostic data, adjustment of management, discussion with other providers, nursing and ancillary staff involved in patient's care documentation, 37 Minutes Charges/Coding Visit Charges Inpatient E&M: 66348 Subs Hosp L2 12/09/24 1046 <Electronically signed by Sonali Rousseau MD> Cosigner Signature (if applicable): CC: ~ Signed [facility] Work Phone: 1(952) 732-431503-11-2025 Progress note Author Sonali Rousseau [facility] Note Date/Time December 08, 2024 7:2 7pm [facility] Medical Records Department [address] [place] [address] Progress Note - Hospitalist 12/08/241923 MR#: [id number] Acct: [id number] Name: CLARITZA BURTON Rep #:[id number] : 1945 79 From: Sonali Rousseau MD PCP: Dr. Jenaro Ayers MD Status:ADM IN Location: [place] [address] Hospitalist Note received message regarding pts variable HR-at times 130's or 140, pt has been intermittently tachycardic over the past two days in sinus rhythm, d/t prolongedNPO (remains NPO d/t failing swallow eval) she has been unable to get her home metoprolol, will switch to IV metoprolol. Pt not hypotensive and temp improved from last check. O2 94% on 4L NC. UA not suggestive of UTI. 12/08/241926 <Electronically signed by Sonali Rousseau MD> Cosigner Signature (if applicable): CC: ~ Signed [facility] Work Phone: 1(411) 547-582103-11-2025 Consult note Author Cristino Kwan [facility] Note Date/Time December 08, 2024 6:1 8pm [facility] Medical Records Department [address] [place] [address] Consultation - GI 12/08/24 1728 MR#: [id number] Acct: [id number] Name: CLARITZA BURTON Rep #:[id number] : 1945 79 From: Cristino Kwan DO PCP: Dr. Jenaro Ayers MD Status:ADM IN Location: [place] [address] HPI Consult Data Date of Consult: 12/08/24 HPI Narrative Reason for Consultation: Aspiration pneumonia HPI Narrative: CLARITZA BURTON, is a 79-year-old female presenting from half[facility]way facility with history of stroke causing tachycardia as well as recent hospitalization for parainfluenza virus, falls, Streptococcus alactolyticus bacteremia (treated with cefdinir), intractable back pain and and urinary retention (initially treated with Puentes catheter but was removed at time of discharge) presenting for vomiting and altered mental status as well as fever. Patient is on Eliquis per review of her MAR, but is unclear why. She reportedly threw up at 1010 and 1045 this morning. They are concerned that she aspirated. She is no to be febrile per EMS. Is unclear how long the symptoms been going on. Per nursing facility report there is influenza and norovirus going around the facility. No other history obtained. Patient is minimally verbal at this time. CT chest showed increased markings at the lung base concerning for atelectasis versus pneumonia but otherwise fairly clear. She was on Airvo but now weaned down to oxygen by nasal cannula- 4L. On IV Solu-Medrol, IV Levaquin and Tamiflu. Speech therapy also consulted due to concerns for dysphagia. Recommended Referrals: GI Consult (Poor upper esophageal sphincter opening/duration)Currently NPO. Titrate oxygen to maintain saturation above 90%. Breathing treatments bronchodilators. [facility] Medical History Anxiety Depression Osteoporosis Non-smoker Cerebral palsy Cataract Palpitations Elevated blood pressure reading without diagnosis of hypertension Essential (primary) hypertension Home Medications ?Medication ?Instructions ?Recorded ?Last Taken ?Type garlic 200 mg tablet 200 mg PO DAILY 01/16/18 Unk nown History cholecalciferol (vitamin D3) 25 1,000 unit PO DAILY Unknown History mcg (1,000 unit) tablet metoprolol succinate 50 mg 50 mg PO DAILY #90 TABLETS 01/22/24 Unknown Rx tablet,extended release 24 hr amlodipine 5 mg tablet 5 mg PO DAILY #90 tabs 10/05 Unknown Rx risperidone 0.5 mg tablet 0.5 mg PO QHS #0 tabs Unknown Rx tamsulosin 0.4 mg capsule 0.4 mg PO DAILY@1730 #0 caps 11/11/24 Unknown Rx apixaban 5 mg tablet (Eliquis) 5 mg PO BID 12/04/24 Un known History ferrous sulfate 325 mg (65 mg 325 mg PO BID 03/07/25 U nknown History iron) tablet (Feosol) lisinopril 20 mg tablet 20 mg PO DAILY 12/04/24 Unkn own History pregabalin 50 mg capsule (Lyrica) 50 mg PO TID 5 Unknown History sennosides 8.6 mg-docusate sodium 1 tab-cap PO BID 04/23 Unknown History 50 mg tablet (Stimulant Laxative Plus) Allergy/AdvReac Type Severity Reaction Status Date / Time amantadine (From Symmetrel) AdvReac Severe Unknown Verified 10/30/24 11:00 amoxicillin (From Augmentin) AdvReac Severe Unknown Verified 10/30/24 11:00 clavulanic acid (From AdvReac Severe Unknown Verified 10/30/24 11:00 Augmentin) erythromycin base AdvReac Severe Unknown Verified 10/30/24 11:00 lorazepam (From Ativan) AdvReac restless Verified 10/30/24 17:39 Family History Father Diabetes Hypertension Mother alzhemier Osteoporosis Surgical History History of tonsillectomy History of hysterectomy History of hip replacement Social History Smoking Status: Never smoker alcohol intake: never substance use type: does not use caffeine: Yes Type: coffee Number of servings: 3 what type of physical activity do you participate in: none seatbelt use: always do you feel safe at home: Yes ROS ROS Narrative 10 or more systems reviewed with the patient and are negative except as per HPI Physical Exam Narrative HEENT: Atraumatic Eyes: Anicteric, normal conjunctiva, extraocular movements grossly intact Neck: Supple Respiratory: Somewhat coarse at bases with some transmitted upper airway sound, fairly normal respiratory effort Cardiovascular: Regular rate and rhythm GI: Soft, nontender, nondistended Extremities: Moving lower extremities on bed but feels that they are weak Musculoskeletal: Moving extremities in bed Neuro: No overt focal neurological deficits on exam Skin: No rashes appreciated Psych: Attempts to be cooperative Lab / Micro Data 12/08/24 05:29 12/08/24 05:29 Labs: Laboratory Results - last 24 hr 12/08/24 05:29: WBC 5.9, RBC 3.02 L, Hgb 8.9 L, Hct 28.4 L, MCV 94.0, MCH 29.5, MCHC 31.3 L, RDW Std Deviation 51.7 H, RDW Coeff of Roselyn 15.0 H, Plt Count 315, MPV 9.2, Immature Gran % (Auto) 0.500, Neut % (Auto) 68.3, Lymph % (Auto) 23.0, [place] % (Auto) 8.0, Eos % (Auto) 0.0, Baso % (Auto) 0.2, Absolute Neuts (auto) 4.0, Absolute Lymphs (auto) 1.35, Nucleated RBC % 0, Sodium 137, Potassium 3.4, Chloride 104, Carbon Dioxide 22.0, Anion Gap 11, BUN 16, Creatinine 0.40 L, Estim Creat Clear Calc 55.13, Est GFR (MDRD) Non-Af 102, BUN/Creatinine Ratio 40.3 H, Glucose 80, Calcium 7.8 Rhythm Strip Rhythm Strip: Sinus Tach Rate: 120 Ectopy: None Assessment & Plan Assessment/Plan (1) Influenza A: (2) Acute hypoxic respiratory failure: PLAN: Plan 79-year-old with cerebral palsy and acute hypoxic respiratory failure due to acute influenza infection and concern for aspiration pneumonia * patient remains on oxygen and is down to 2L today * influenza screen was positive in the ED * CT chest showed increased markings at the lung base concerning for atelectasis versus pneumonia but otherwise fairly clear. * On IV Solu-Medrol, IV Levaquin and Tamiflu. Speech therapy also consulted due to concerns for dysphagia. * She was on modified diet per speech therapy. However after undergoing repeat speech eval and her having severe dysphagia with aspiration she is n.p.o. I talked to her family about undergoing an upper endoscopy with esophageal dilation and possible temporary PEG tube placement. They will think about what they want to do is a family. * Titrate oxygen to maintain saturation above 90%. Breathing treatments with bronchodilators. * Charges/Coding Visit Charges Inpatient E&M: 87117 Init Hosp L3 12/08/24 2736 <Electronically signed by Cristino Friend > Cosigner Signature (if applicable): CC: Dr. Jenaro Ayers MD~ Signed [facility] Work Phone: 1(412) 901-750903-11-2025 Progress note Author Sonali Rousseau [facility] Note Date/Time December 08, 2024 3:5 8pm [facility] Medical Records Department [address] [place] [address] Progress Note - Hospitalist 12/08/24819 MR#: [id number] Acct: [id number] Name: CLARITZA BURTON Rep #:[id number] : 1945 79 From: Sonali Rousseau MD PCP: Dr. Jenaro Ayers MD Status:ADM IN Location: [place] [address] Reason for Visit Reason for Visit: Diagnoses Influenza due to other identified influenza virus with other respiratory manifestations (12/04/24) Acute respiratory failure with hypoxia (12/04/24) Subjective Subjective Patient resting in bed, appears to have a dry mouth, does report some shortness of breath but said this has been going on and not necessarily something acute innature Objective Data Objective Data Vital Signs: Vital Signs Temp Pulse Resp BP Pulse Ox O2 Del Method O2 Flow Rate 97.8 F 91 20 H 144/72 H 95 Nasal Cannula 4 12/08/24 04:00 12/08/24 04:00 12/08/24 04:00 12/08/24 04:00 12/08/24 01:13 12/08/24 04:00 12/08/24 04:00 FiO2 55 12/04/24 15:07 Oxygen Flow Rate (L/min) 4 Oxygen Delivery Method Nasal Cannula Weight: 69.7 kg Body Mass Index (BMI) 24.7 Intake & Output: Intake and Output for Last 24 Hours 12/07/24 12/07/24 12/08/24 00:59 23:59 23:59 Intake Total 1730 / 1730 480 / 480 0 / 0 Output Total 550 / 550 250 / 500 475 / 475 Balance 1180 / 1180 230 / -20 -475 / -475 Lab / Micro Data 12/08/24 05:29 12/08/24 05:29 Labs: Laboratory Results - last 24 hr 12/07/24 07:22: Sodium 139, Potassium 3.4, Chloride 105, Carbon Dioxide 22.5, Anion Gap 11, BUN 19, Creatinine 0.46 L, Estim Creat Clear Calc 55.13, Est GFR (MDRD) Non-Af 98, BUN/Creatinine Ratio 41.1 H, Glucose 94, Calcium 7.7 12/08/24 05:29: WBC 5.9, RBC 3.02 L, Hgb 8.9 L, Hct 28.4 L, MCV 94.0, MCH 29.5, MCHC 31.3 L, RDW Std Deviation 51.7 H, RDW Coeff of Roselyn 15.0 H, Plt Count 315, MPV 9.2, Immature Gran % (Auto) 0.500, Neut % (Auto) 68.3, Lymph % (Auto) 23.0, [place] % (Auto) 8.0, Eos % (Auto) 0.0, Baso % (Auto) 0.2, Absolute Neuts (auto) 4.0, Absolute Lymphs (auto) 1.35, Nucleated RBC % 0, Sodium 137, Potassium 3.4, Chloride 104, Carbon Dioxide 22.0, Anion Gap 11, BUN 16, Creatinine 0.40 L, Estim Creat Clear Calc 55.13, Est GFR (MDRD) Non-Af 102, BUN/Creatinine Ratio 40.3 H, Glucose 80, Calcium 7.8 Micro: Microbiology 12/04/24 12:31 Blood Culture (Wb) - Right Wrist Blood Culture - Preliminary No growth in 48 hours. 12/04/24 12:00 Blood Culture (Wb) - Venous Blood Culture - Preliminary No growth in 48 hours. 12/04/24 11:57 Urine Catheter - Puentes Urine Culture - Final Culture exhibits no growth. 12/04/24 11:56 Mucosa - Nose SARS-CoV-2, Influenza & RSV (PCR) - Final Influenzae A Radiography Diagnostic Testing: Radiology Impression Chest X-Ray 12/07/24 09:25 IMPRESSION: Left basilar atelectasis or pneumonia. Reading Location: [facility] Rhythm Strip Rhythm Strip: Sinus Tach Rate: 120 Ectopy: None Physical Exam Narrative General: Appears more tired today, slightly less overtly interactive HEENT: Atraumatic Eyes: Anicteric, normal conjunctiva, extraocular movements grossly intact Neck: Supple Respiratory: Somewhat coarse at bases with some transmitted upper airway sound, fairly normal respiratory effort Cardiovascular: Regular rate and rhythm GI: Soft, nontender, nondistended Extremities: Moving lower extremities on bed but feels that they are weak Musculoskeletal: Moving extremities in bed Neuro: No overt focal neurological deficits on exam Skin: No rashes appreciated Psych: Attempts to be cooperative Assessment & Plan Assessment/Plan (1) Influenza A: (2) Acute hypoxic respiratory failure: PLAN: Plan # Acute hypoxic respiratory failure secondary to influenza A with possible aspiration pneumonia -Patient presented with influenza A and CT of the chest with concern for early left lower lobe infiltrate -Patient on Tamiflu and Levaquin -On 2 to 3 L O2 this a.m. but there is concern for repeat aspiration so patient bumped up to 4 L and made n.p.o. -Once more alert patient have repeat speech evaluation, my exam she was able to wake up and talk with me, confused about where she was but knew it was 2024 -12/08: Patient on Levaquin, speech study today showed patient with aspiration tomultiple thicknesses and GI consult recommended, this was placed, further dispo pending consult # Recent DVT and PE -Imaging had shown extensive left lower extremity DVT as well as a right popliteal DVT and segmental and subsegmental PE, patient on Eliquis -12/08: Patient has been n.p.o. and is unclear when she will be cleared for p.o.,given recent DVT and PE will switch her to subcu Lovenox in the meantime #Hypertension -Patient on 20 of lisinopril, 50 metoprolol, 5 of amlodipine, these were resumed12/06, continue to monitor and titrate as indicated -12/08: Blood pressure 144/72 however patient has not received her medications asshe is n.p.o., continue to monitor, can consider IV if needed if patient will have prolonged n.p.o. #Continued aspiration -12/08: Speech following, patient failed speech study recommended GI consult so GI has been consulted, further dispo pending consult. Patient remains n.p.o., Patient on IV fluids at this time especially given she appears to have dried membranes Chronic medical problems: #CP -Supportive care -PT/OT # History of urinary retention -Patient with Puentes catheter in place #DVT ppx: Patient on Eliquis Sonali Rousseau MD Time spent in the patient's overall evaluation, decision-making process, review of diagnostic data, adjustment of management, discussion with other providers, nursing and ancillary staff involved in patient's care documentation, 36 Minutes Charges/Coding Visit Charges Inpatient E&M: 38908 Subs Hosp L2 12/08/24 1144 <Electronically signed by Sonali Rousseau MD> Cosigner Signature (if applicable): CC: ~ Signed ADDENDUM by Dr. Sonali Rousseau MD on 12/08/24 at 1558 Addendum Patient spiked temperature, likely due to her multiple aspiration attempts but cannot say definitively so we will check UA, urine culture, sputum culture if able and repeat blood cultures, will continue Levaquin for now but may need to broaden if there is any deterioration or white count begins to increase or cultures positive 12/08/24 1558<Electronically signed by Sonali Rousseau MD> Cosigner Signature (if applicable): cc: ~* Signed [facility] Work Phone: 1(613) 798-749303-11-2025 Procedure [facility] 12-07-2024 Progress note Author Sonali Rousseau [facility] Note Date/Time December 07, 2024 10: 30am [facility] Medical Records Department [address] [place] [id number] Progress Note - Hospitalist 12/07/24 0833 MR#: [id number] Acct: [id number] Name: CLARITZA BURTON Rep #:[id number] : 1945 79 From: Sonali Rousseau MD PCP: Dr. Jenaro Ayers MD Status:ADM IN Location: [place] [address] Reason for Visit Reason for Visit: Diagnoses Influenza due to other identified influenza virus with other respiratory manifestations (12/04/24) Acute respiratory failure with hypoxia (12/04/24) Subjective Subjective Patient evaluated at bedside, reports she feels like her breathing is better andthat her cough is improving, does report she feels weak and like her legs are heavy that she is able to move them on the bed, patient this a.m. had an episodewith concern for aspiration and speech evaluated and made patient n.p.o. and at the time was not alert enough for speech eval. Objective Data Objective Data Vital Signs: Vital Signs Temp Pulse Resp BP Pulse Ox O2 Del Method O2 Flow Rate 98.6 F 94 19 H 141/80 H 96 Nasal Cannula 3 12/07/24 02:00 12/07/24 02:00 12/07/24 02:00 12/07/24 02:00 12/07/24 08:26 12/07/24 08:26 12/07/24 08:26 FiO2 55 12/04/24 15:07 Oxygen Flow Rate (L/min) 3 Oxygen Delivery Method Nasal Cannula Weight: 67.5 kg Body Mass Index (BMI) 24.0 Intake & Output: Intake and Output for Last 24 Hours 12/05/24 12/07/24 12/07/24 23:59 00:59 23:59 Intake Total 1700 / 1700 1730 / 1730 280 / 280 Output Total 1100 / 1100 550 / 550 Balance 600 / 600 1180 / 1180 280 / 280 Lab / Micro Data 12/07/24 07:22 12/07/24 07:22 Labs: Laboratory Results - last 24 hr 12/07/24 07:22: WBC 5.7, RBC 2.94 L, Hgb 8.9 L, Hct 27.9 L, MCV 94.9, MCH 30.3, MCHC 31.9 L, RDW Std Deviation 51.4 H, RDW Coeff of Roselyn 14.8 H, Plt Count 317, MPV 9.6, Immature Gran % (Auto) 0.700, Neut % (Auto) 73.6 H, Lymph % (Auto) 17.3L, [place] % (Auto) 8.2, Eos % (Auto) 0.0, Baso % (Auto) 0.2, Absolute Neuts (auto)4.2, Absolute Lymphs (auto) 0.99, Nucleated RBC % 0 Micro: Microbiology 12/04/24 12:31 Blood Culture (Wb) - Right Wrist Blood Culture - Preliminary No growth in 48 hours. 12/04/24 12:00 Blood Culture (Wb) - Venous Blood Culture - Preliminary No growth in 48 hours. 12/04/24 11:57 Urine Catheter - Puentes Urine Culture - Final Culture exhibits no growth. 12/04/24 11:56 Mucosa - Nose SARS-CoV-2, Influenza & RSV (PCR) - Final Influenzae A Rhythm Strip Rhythm Strip: Sinus Tach Rate: 120 Ectopy: None Physical Exam Narrative General: Alert, knows it is 2024 but was not sure where she was, no apparent distress HEENT: Atraumatic Eyes: Anicteric, normal conjunctiva, extraocular movements grossly intact Neck: Supple Respiratory: Crackles at left lower lung base, fairly normal respiratory effort Cardiovascular: Regular rate and rhythm GI: Soft, nontender, nondistended Extremities: Moving lower extremities on bed but feels that they are weak Musculoskeletal: Moving extremities in bed Neuro: No overt focal neurological deficits on exam Skin: No rashes appreciated Psych: Cooperative Assessment & Plan Assessment/Plan (1) Influenza A: (2) Acute hypoxic respiratory failure: PLAN: Plan # Acute hypoxic respiratory failure secondary to influenza A with possible aspiration pneumonia -Patient presented with influenza A and CT of the chest with concern for early left lower lobe infiltrate -Patient on Tamiflu and Levaquin -On 2 to 3 L O2 this a.m. but there is concern for repeat aspiration so patient bumped up to 4 L and made n.p.o. -Once more alert patient have repeat speech evaluation, my exam she was able to wake up and talk with me, confused about where she was but knew it was 2024 #Hypertension -Patient on 20 of lisinopril, 50 metoprolol, 5 of amlodipine, these were resumed12/06, continue to monitor and titrate as indicated #CP -Supportive care -PT/OT # Recent DVT and PE -Imaging had shown extensive left lower extremity DVT as well as a right popliteal DVT and segmental and subsegmental PE, patient on Eliquis # History of urinary retention -Patient with Puentes catheter in place #DVT ppx: Patient on Eliquis Sonali Rousseau MD Time spent in the patient's overall evaluation, decision-making process, review of diagnostic data, adjustment of management, discussion with other providers, nursing and ancillary staff involved in patient's care documentation, 37 Minutes Charges/Coding Visit Charges Inpatient E&M: 43237 Subs Hosp L2 12/07/24 1030 <Electronically signed by Sonali Rousseau MD> Cosigner Signature (if applicable): CC: ~ Signed [facility] Work Phone: 1([phone] Radiology Diagnostic study [facility]03-09-2025 Progress note Author Valarie Silver [facility] Note Date/Time December 06, 2024 1:22 pm [facility] Medical Records Department [address] [place] [address] Progress Note 03/09/25 1317 MR#: [id number] Acct: [id number] Name: CLARITZA BURTON Rep #:[id number] : 1945 79 From: Valarie Silver MD PCP: Dr. Jenaro Ayers MD Status:ADM IN Location: ICU CVICU 2-1 Subjective Subjective Patient seen and examined. She had no active complaints. She denied any cough, chest pain, palpitations, dizziness, nausea, vomiting or any other symptoms. Sheis on 3L of oxygen by nasal canula. Objective Data Objective Data Vital Signs: Vital Signs Temp Pulse Resp BP Pulse Ox O2 Del Method O2 Flow Rate 101.4 F H 115 H 18 168/67 H 100 Nasal Cannula 3 12/06/24 12:56 12/06/24 12:56 12/06/24 12:56 12/06/24 12:56 12/06/24 12:56 12/06/24 12:56 12/06/24 12:56 FiO2 55 12/04/24 15:07 Oxygen Flow Rate (L/min) 3 Oxygen Delivery Method Nasal Cannula Weight: 148 lb 12.992 oz Body Mass Index (BMI) 24.0 Intake & Output: Intake and Output for Last 24 Hours 12/04/24 12/05/24 12/07/24 23:59 23:59 00:59 Intake Total 2650 / 2650 1700 / 1700 450 / 450 Output Total 1275 / 1275 1100 / 1100 450 / 450 Balance 1375 / 1375 600 / 600 0 / 0 Lab / Micro Data 12/06/24 04:32 12/06/24 04:32 Labs: Laboratory Results - last 24 hr 12/06/24 04:32: WBC 14.1 H, RBC 3.00 L, Hgb 9.2 L, Hct 28.3 L, MCV 94.3, MCH 30.7, MCHC 32.5, RDW Std Deviation 50.2 H, RDW Coeff of Roselyn 14.6, Plt Count 378,MPV 9.5, Immature Gran % (Auto) 0.600, Neut % (Auto) 86.4 H, Lymph % (Auto) 8.4 L, [place] % (Auto) 4.4, Eos % (Auto) 0.1, Baso % (Auto) 0.1, Absolute Neuts (auto)12.2 H, Absolute Lymphs (auto) 1.18, Nucleated RBC % 0, Sodium 139, Potassium 3.3, Chloride 106, Carbon Dioxide 22.1, Anion Gap 11, BUN 20 H, Creatinine 0.50 L, Estim Creat Clear Calc 55.13, Est GFR (MDRD) Non-Af 97, BUN/Creatinine Ratio 40.5 H, Glucose 98, Calcium 8.1 Micro: Microbiology 12/04/24 11:57 Urine Catheter - Puentes Urine Culture - Preliminary Culture exhibits no growth. 12/04/24 11:56 Mucosa - Nose SARS-CoV-2, Influenza & RSV (PCR) - Final Influenzae A Rhythm Strip Rhythm Strip: Sinus Tach Rate: 120 Ectopy: None Physical Exam Const alert and oriented x3 Constitutional Narrative: flat affect General Appearance: cooperative HEENT normocephalic, head/scalp atraumatic, hearing grossly normal bilaterally and nasal mucous membranes and turbinates normal Eyes PERRL, EOMs intact bilaterally and conjunctivae normal Neck no lymphadenopathy and supple Lymph Lymphatic: no lymphadenopathy noted and no lymphedema noted Chest inspection of chest normal Resp normal respiratory effort and no use of accessory muscles Resp Narrative: mildly diminished breath sounds bibasally, no wheezes or crackles. Down to 3 L of oxygen by nasal canula. Cardio regular rate, regular rhythm, S1 normal heart sound, S2 normal heart sound, no murmurs and peripheral pulses 2+ throughout GI normal to inspection, nondistended, normoactive bowel sounds, soft to palpation,non-tender and non-distended Extremity normal capillary refill, no clubbing, cyanosis or edema and no calf tenderness General Extremity: no tenderness to palpation of joints or extremities Skin General Skin Exam: no breakdown Neuro CN's II-XII intact bilaterally, no focal motor deficits and no sensory deficits noted Neuro Narrative: Contracture of right lower extremity noted in setting of cerebral palsy. Motor Exam: general weakness Psych Mood & Affect: flat affect Assessment & Plan Assessment/Plan (1) Influenza A: (2) Acute hypoxic respiratory failure: PLAN: Plan #Acute hypoxic respiratory failure due to acute influenza infection and concern for aspiration pneumonia * patient remains on oxygen and is down to 3L today * influenza screen was positive in the ED * CT chest showed increased markings at the lung base concerning for atelectasis versus pneumonia but otherwise fairly clear. * On IV Solu-Medrol, IV Levaquin and Tamiflu. Speech therapy also consulted due to concerns for dysphagia. * On modified diet per speech therapy * Titrate oxygen to maintain saturation above 90%. Breathing treatments with bronchodilators. * #History of cerebral palsy with failure to thrive * Has had recent prolonged hospitalizations and has gradually gotten weaker. * PT OT on board. Fall precautions. * #History of DVT and PE * Diagnosed recently during hospitalization at [facility]. * Imaging done showed extensive left lower extremity DVT, right popliteal DVT and segmental and subsegmental DVT. * On Eliquis. * #History of urinary retention: Puentes catheter in situ #Hypertension: On lisinopril, metoprolol and amlodipine DVT prophylaxis: Not indicated as patient is on Eliquis. Disposition: transfer patient to PCU Charges/Coding Visit Charges Inpatient E&M: 12646 Subs Hosp L2 12/06/24 1322 <Electronically signed by Valarie Silver MD> Valarie Silver MD Cosigner Signature (if applicable): CC: ~ Signed [facility] Work Phone: [phone] Progress note Author [facility] Note Date/Time December 05, 2024 2:19 pm [facility] Medical Records Department [address] [place] [address] Progress Note 12/05/24 1459 MR#: [id number] Acct: [id number] Name: CLARITZA BURTON Rep #:[id number] : 1945 79 From: Valarie Silver MD PCP: Dr. Jenaro Ayers MD Status:ADM IN Location: ICU CVICU20 2-1 Subjective Subjective Patient seen and examined. She complained of feeling cold. She denies any fever, chills, cough, chest pain, palpitations, dizziness, nausea, vomiting or any other symptoms. Review of systems is otherwise negative. Objective Data Objective Data Vital Signs: Vital Signs Temp Pulse Resp BP Pulse Ox O2 Del Method O2 Flow Rate 98.0 F 92 19 H 135/83 H 97 Nasal Cannula 6 12/05/24 12:00 12/05/24 13:00 12/05/24 13:00 12/05/24 13:00 12/05/24 13:00 12/05/24 13:00 12/05/24 13:00 FiO2 55 12/04/24 15:07 Oxygen Flow Rate (L/min) 6 Oxygen Delivery Method Nasal Cannula Weight: 148 lb 2.41 oz Body Mass Index (BMI) 23.9 Intake & Output: Intake and Output for Last 24 Hours 12/03/24 12/04/24 12/05/24 23:59 23:59 23:59 Intake Total 2650 / 2650 200 / 200 Output Total 1275 / 1275 475 / 475 Balance 1375 / 1375 -275 / -275 Lab / Micro Data 12/05/24 04:30 12/05/24 04:30 Labs: Laboratory Results - last 24 hr 12/04/24 12:00: Procalcitonin 2.62 H 12/05/24 04:30: WBC 19.9 H, RBC 3.14 L, Hgb 9.6 L, Hct 29.4 L, MCV 93.6, MCH 30.6, MCHC 32.7, RDW Std Deviation 50.3 H, RDW Coeff of Roselyn 14.7 H, Plt Count 385, MPV 9.0, Sodium 136, Potassium 3.5, Chloride 101, Carbon Dioxide 22.6, Anion Gap 12, BUN 20 H, Creatinine 0.50 L, Estim Creat Clear Calc 55.13, Est GFR(MDRD) Non-Af 97, BUN/Creatinine Ratio 39.0 H, Glucose 145 H, Calcium 8.5 Micro: Microbiology 12/04/24 11:57 Urine Catheter - Puentes Urine Culture - Preliminary Culture exhibits no growth. 12/04/24 11:56 Mucosa - Nose SARS-CoV-2, Influenza & RSV (PCR) - Final Influenzae A Radiography Diagnostic Testing: Radiology Impression Brain CT 12/04/24 15:32 IMPRESSION: 1. No visible intracranial hemorrhage. 2. Relatively advanced age indeterminate bilateral cerebral ischemic changes mayreflect chronic microvascular ischemia however this is not definite in the absence of prior exams to confirm stability. If there is concern for an acute ischemia in the setting of an acute focal neurologic deficit, MRI is recommended. Comparison with any available outside imaging may also be helpful. 3. Findings which may suggest normal pressure/communicating hydrocephalus in theappropriate clinical context. 4. Trace paranasal sinus disease. 5. Additional description as above. Reading Location: [facility] Rhythm Strip Rhythm Strip: Sinus Tach Rate: 120 Ectopy: None Physical Exam Const alert and oriented x3 Constitutional Narrative: restless, looks uncomfortable HEENT normocephalic and head/scalp atraumatic Mouth: dry mucous membranes Eyes PERRL and EOMs intact bilaterally Neck no lymphadenopathy and supple Lymph Lymphatic: no lymphadenopathy noted and no lymphedema noted Resp Resp Narrative: mildly diminished breath sounds bibasally, no wheezes or crackles. On 6L of oxygen by nasal canula. Cardio regular rate, regular rhythm, S1 normal heart sound, S2 normal heart sound and no murmurs GI normal to inspection, nondistended, normoactive bowel sounds, soft to palpation and non-tender Extremity normal capillary refill, no clubbing, cyanosis or edema and no calf tenderness General Extremity: no tenderness to palpation of joints or extremities Skin General Skin Exam: no breakdown Neuro CN's II-XII intact bilaterally, no focal motor deficits and no sensory deficits noted Motor Exam: general weakness Psych Mood & Affect: anxious Assessment & Plan Assessment/Plan (1) Influenza A: (2) Acute hypoxic respiratory failure: PLAN: Plan #Acute hypoxic respiratory failure due to acute influenza infection and concern for aspiration pneumonia * patient remains on oxygen * influenza screen was positive in the ED * CT chest showed increased markings at the lung base concerning for atelectasis versus pneumonia but otherwise fairly clear. * Was on Airvo but now weaned down to oxygen by nasal cannula- 4L * On IV Solu-Medrol, IV Levaquin and Tamiflu. Speech therapy also consulted due to concerns for dysphagia. Currently NPO. Titrate oxygen to maintain saturation above 90%. Breathing treatments bronchodilators. * #History of cerebral palsy with failure to thrive * Has had recent prolonged hospitalizations and has gradually gotten weaker. * PT OT on board. Fall precautions. * #History of DVT and PE * Diagnosed recently during hospitalization at [facility]. Imaging done showed extensive left lower extremity DVT, right popliteal DVT and segmental and subsegmental DVT. On Eliquis. * #History of urinary retention: Puentes catheter in situ #Hypertension: On lisinopril, metoprolol and amlodipine DVT prophylaxis: Not indicated as patient is on Eliquis. Charges/Coding Visit Charges Inpatient E&M: 37276 Subs Hosp L2 12/05/24 1519 <Electronically signed by Valarie Silver MD> Valarie Silver MD Cosigner Signature (if applicable): CC: ~ Signed [facility] Work Phone: 1([phone]) [phone] Progress note Author Marcio Dennison [facility] Note Date/Time December 05, 2024 2:16 pm [facility] Medical Records Department [address] [place] [address] Progress Note - Rn Urology 12/05/24 1306 MR#: [id number] Acct: [id number] Name: CLARITZA BURTON Rep #:[id number] : 1945 79 From: Marcio Dennison MD PCP: Dr. Jenaro Ayers MD Status:ADM IN Location: ICU CVICU20 2-1 Objective Data Objective Data Vital Signs: Vital Signs Last response 3 Temperature 36.4 C L 12/05/24 04:00 Temperature Source Temporal 12/05/24 04:00 Pulse Rate 81 12/05/24 07:00 Respiratory Rate 15 12/05/24 06:00 Respiratory Effort Normal 12/05/24 09:13 Respiratory Depth Normal 12/05/24 09:13 Respiratory Pattern Normal 12/05/24 09:13 Blood Pressure 121/57 H 12/05/24 06:00 Blood Pressure Mean 78 12/05/24 06:00 Blood Pressure Source Monitor 12/05/24 06:00 Blood Pressure Position Supine 12/05/24 06:00 Blood Pressure Location Right Arm 12/05/24 06:00 Pulse Ox 93 12/05/24 09:19 Oxygen Delivery Method Nasal Cannula 12/05/24 09:19 Oxygen Flow Rate (L/min) 6 12/05/24 09:19 Fraction of Inspired Oxygen (FIO2) 55 12/04/24 15:07 I&O: I&O Last 24 Hours 3 12/04/24 12/05/24 12/05/24 23:59 11:59 23:59 Intake Total 2650 / 2650 Output Total 1275 / 1275 275 / 275 Balance 1375 / 1375 -275 / -275 I&O: Total Stay 3 12/04/24 11:39 thru 12/05/24 06:00 Intake Total 2650 Output Total 1550 Balance 1100 Current Meds Ordered / Administered: Current meds ordered / Administered 3 Generic Name Dose Route Start Last Admin Trade Name Wilmer PRN Reason Stop Dose Admin Acetaminophen 650 mg 12/04/24 16:18 Acetaminophen 325 Mg Tablet PO Q6H PRN PRN Pain 1-10 Or Fever>100.7 Apixaban 5 mg 12/04/24 22:00 12/04/24 20:09 Apixaban 5 Mg Tablet PO Not Given BID LUDWIG Cholecalciferol 25 mcg 12/05/24 10:00 Cholecalciferol (Vit D3) 25 Mcg Tablet (1,000 Units) PO DAILY LUDWIG Ferrous Sulfate 325 mg 12/05/24 08:00 12/05/24 08:33 Ferrous Sulfate 325 Mg Tablet PO Not Given DAILYCM LUDWIG Levofloxacin 750 mg in 150 mls @ 100 mls/hr 12/05/24 10:00 12/05/24 10:35 Levaquin Iv IV 100 mls/hr Q24 LUDWIG Administration Sodium Chloride 1,000 mls @ 75 mls/hr 12/05/24 09:45 12/05/24 10:16 IV 12/06/24 12:24 75 mls/hr .[id number] LUDWIG Administration Protocol Morphine Sulfate 2 mg 12/04/24 19:11 Morphine 2 Mg/Ml Syringe IV Q4H PRN PRN Pain Score 6-10 Ondansetron HCl 4 mg 12/04/24 16:18 Ondansetron 4 Mg/2 Ml Vial IV Q8H PRN PRN NAUSEA/VOMITING Oseltamivir Phosphate 30 mg 12/05/24 10:00 Oseltamivir Phosphate 30 Mg Capsule PO 12/09/24 10:01 BID LUDWIG Pregabalin 50 mg 12/04/24 22:00 12/05/24 06:00 Pregabalin 50 Mg Capsule PO Not Given TID LUDWIG Risperidone 0.5 mg 12/04/24 22:00 12/04/24 20:09 Risperidone 0.5 Mg Tablet PO Not Given QHS LUDWIG Protocol Senna/Docusate Sodium 1 tablet 12/04/24 22:00 12/04/24 20:09 Senna/Docusate Sodium 1 Tablet PO Not Given BID LUDWIG Sodium Chloride 10 - 40 ml 12/04/24 16:59 0.9 % Nacl (Sterile) Posiflush 10 Ml IV UD PRN Port access or dressing change Sodium Chloride 10 - 40 ml 12/04/24 16:59 12/05/24 06:09 0.9% Saline Lock 10 Ml Syringe IV 10 ml UD PRN Administration Midline Flush Tamsulosin HCl 0.4 mg 12/04/24 17:30 12/04/24 18:01 Tamsulosin Hcl 0.4 Mg Capsule PO Not Given DAILY@1730 [facility] Lab / Micro Data 12/05/24 04:30 12/05/24 04:30 Labs: Laboratory Results - last 24 hr 12/04/24 12:00: Sodium 134, Potassium 4.4, Chloride 98, Carbon Dioxide 21.6, Anion Gap 14, BUN 19, Creatinine 0.56 L, Estim Creat Clear Calc 57.27, Est GFR (MDRD) Non-Af 92, BUN/Creatinine Ratio 34.0 H, Glucose 136 H, Calcium 8.5, TotalBilirubin 0.34, AST 30, ALT 20, Alkaline Phosphatase 100, Total Protein 6.1, Albumin 3.1 L, Globulin 3.0, Albumin/Globulin Ratio 1.0, Procalcitonin 2.62 H 12/04/24 12:31: Lactic Acid 1.6 12/05/24 04:30: WBC 19.9 H, RBC 3.14 L, Hgb 9.6 L, Hct 29.4 L, MCV 93.6, MCH 30.6, MCHC 32.7, RDW Std Deviation 50.3 H, RDW Coeff of Roselyn 14.7 H, Plt Count 385, MPV 9.0, Sodium 136, Potassium 3.5, Chloride 101, Carbon Dioxide 22.6, Anion Gap 12, BUN 20 H, Creatinine 0.50 L, Estim Creat Clear Calc 55.13, Est GFR(MDRD) Non-Af 97, BUN/Creatinine Ratio 39.0 H, Glucose 145 H, Calcium 8.5 Micro: Microbiology 12/04/24 11:57 Urine Catheter - Puentes Urine Culture - Preliminary Culture exhibits no growth. 12/04/24 11:56 Mucosa - Nose SARS-CoV-2, Influenza & RSV (PCR) - Final Influenzae A Rhythm Strip Rhythm Strip: Sinus Tach Rate: 120 Ectopy: None Imaging Radiology Impression Chest/Abdomen/Pelvis CT 12/04/24 13:15 IMPRESSION: Increased markings at the lung bases slightly worse at the left lung base suggestive of possible atelectasis and/or early infiltrate. Questionable tiny gallstones along the dependent portion of the gallbladder lumen. Soft tissue prominence overlying the left lower anterior abdominal wall extending to the region of the left hip joints suggestive of possible hematoma. Clinical correlation recommended. One or more dose reduction techniques were used (e.g., Automated exposure control, adjustment of the mA and/or kV according to patient size, use of iterative reconstruction technique). Reading Location: [id number] Brain CT 12/04/24 15:32 IMPRESSION: 1. No visible intracranial hemorrhage. 2. Relatively advanced age indeterminate bilateral cerebral ischemic changes mayreflect chronic microvascular ischemia however this is not definite in the absence of prior exams to confirm stability. If there is concern for an acute ischemia in the setting of an acute focal neurologic deficit, MRI is recommended. Comparison with any available outside imaging may also be helpful. 3. Findings which may suggest normal pressure/communicating hydrocephalus in theappropriate clinical context. 4. Trace paranasal sinus disease. 5. Additional description as above. Reading Location: [facility] Assessment and Plan . Assessment and plan: Critical Care Time: The entirety of this encounter was done via Telemedicine Subjective Subjective Pt feels tired but denies SOB/chest pain/N/V. Choked with PO intake overnight but cleared with aspiration precautions this AM. Making urine. Afebrile. Sats 98% on 4L. PE: General: Well developed, chronically ill appearing; in no distress HEENT: anicteric Sclera, nl nose; supple neck, no masses Cardiovascular: S1/S2; No rubs, gallops; no displaced PM; 3-4+ pitting BL LE edema Respiratory: diminished; no crackles, wheezes, or rhonchi Abdominal: Non-tender; Non distended; hypoBS x 4; No Hepatosplenomegaly Extremities: Warm, well perfused; No clubbing, cyanosis; capillary refill < 2 sec Skin: intact, no rashes Neurological: A&Ox3; no gross deficits appreciated A/P: #Acute hypoxemic Respiratory failure #Flu #?PNA #Aspiration of gastric contents with Hx chronic aspiration #Wounds POA #Failure to thrive, moderate to severe protein calorie malnutrition #Sepsis #Cerebral palsy -Oxygenation improved- may have been related to pneumonitis; down to 4L with sats upper 90s; cont titrating to goal sats ~90% -Cont emp IV Abx; F/U Cx -Finish Tamiflu course -Cont follow recs per [employer]; may ultimately need eval for PEG although overall risk of PNA will not improve Can downgrade from my stand point. Will sign off but available as needed. The entirety of this encounter was done via Telemedicine 12/05/24 0044 <Electronically signed by Marcio Dennison MD> Cosigner Signature (if applicable): CC: ~ Signed [facility] Work Phone: [phone] 196-345203-07-2025 Consult note Author Axel Price [facility] Note Date/Time December 04, 2024 6:53 pm [facility] Medical Records Department [address] [place] [address] Consultation - Rn Urology 12/04/241934 MR#: [id number] Acct: [id number] Name: CLARITZA BURTON Rep #:[id number] : 1945 79 From: Axel Price MD PCP: Dr. Jenaro Ayers MD Status:ADM IN Location: ICU CVICU20 2-1 HPI Consult Data Date of Consult: 12/04/24 HPI Narrative Reason for Consultation: Acute hypoxemic respiratory failure HPI Narrative: CLARITZA BURTON, is a 79yo non smoker resident of [facility] who presents to ED after displaying SOB and possible aspiration of gastric contents at [facility]. Patientdenies choking on food and drink, however. Also tested (+) for Flu A, but statesthat she has been feeling unwell for over 1 week now. Describes sore throat and malaise and fatigue, but denies fever, chills and rigors. Denies night sweats. (+) cough. However, had fever in ED here. Received 2L IVF resuscitation, has made 700cc UOP and is persistently tachycardic between 104-140bpm. CT chest shows small effusion and atelectasis on the left. Areas of faint increased interstitial signal c/w viral vs edema. Per bedside nurse onsite, patient's family seemed nonplussed by her mentation and behavior and suggested she is at baseline. [facility] Medical History Anxiety Depression Osteoporosis Non-smoker Cerebral palsy Cataract Palpitations Elevated blood pressure reading without diagnosis of hypertension Essential (primary) hypertension Home Medications ?Medication ?Instructions ?Recorded ?Last Taken ?Type garlic 200 mg tablet 200 mg PO DAILY 01/16/18 Unk nown History cholecalciferol (vitamin D3) 25 1,000 unit PO DAILY Unknown History mcg (1,000 unit) tablet metoprolol succinate 50 mg 50 mg PO DAILY #90 TABLETS 01/22/24 Unknown Rx tablet,extended release 24 hr amlodipine 5 mg tablet 5 mg PO DAILY #90 tabs 10/05 Unknown Rx risperidone 0.5 mg tablet 0.5 mg PO QHS #0 tabs Unknown Rx tamsulosin 0.4 mg capsule 0.4 mg PO DAILY@1730 #0 caps 11/11/24 Unknown Rx apixaban 5 mg tablet (Eliquis) 5 mg PO BID 12/04/24 Un known History ferrous sulfate 325 mg (65 mg 325 mg PO BID 12/04/24 U nknown History iron) tablet (Feosol) lisinopril 20 mg tablet 20 mg PO DAILY 12/04/24 Unkn own History pregabalin 50 mg capsule (Lyrica) 50 mg PO TID 5 Unknown History sennosides 8.6 mg-docusate sodium 1 tab-cap PO BID 04/23 Unknown History 50 mg tablet (Stimulant Laxative Plus) Allergy/AdvReac Type Severity Reaction Status Date / Time amantadine (From Symmetrel) AdvReac Severe Unknown Verified 10/30/24 11:00 amoxicillin (From Augmentin) AdvReac Severe Unknown Verified 10/30/24 11:00 clavulanic acid (From AdvReac Severe Unknown Verified 10/30/24 11:00 Augmentin) erythromycin base AdvReac Severe Unknown Verified 10/30/24 11:00 lorazepam (From Ativan) AdvReac restless Verified 10/30/24 17:39 Family History Father Diabetes Hypertension Mother alzhemier Osteoporosis Surgical History History of tonsillectomy History of hysterectomy History of hip replacement Social History Smoking Status: Never smoker alcohol intake: never substance use type: does not use caffeine: Yes Type: coffee Number of servings: 3 what type of physical activity do you participate in: none seatbelt use: always do you feel safe at home: Yes ROS ROS Narrative 10 or more systems reviewed with the patient and are negative except as per HPI Objective Data Objective Data Vital Signs: Vital Signs Last response 3 Temperature 36.2 C L 12/04/24 16:49 Temperature Source Temporal 12/04/24 16:49 Pulse Rate 137 H 12/04/24 17:53 Respiratory Rate 18 12/04/24 17:53 Respiratory Effort Normal 12/04/24 17:53 Respiratory Depth Normal 12/04/24 17:53 Respiratory Pattern Normal 12/04/24 17:53 Blood Pressure 123/72 H 12/04/24 16:49 Blood Pressure Mean 89 12/04/24 16:49 Blood Pressure Source Monitor 12/04/24 16:49 Blood Pressure Position Semi-Fowlers 12/04/24 16:49 Blood Pressure Location Right Arm 12/04/24 16:49 Pulse Ox 91 12/04/24 16:49 Oxygen Delivery Method Nasal Cannula 12/04/24 17:53 Oxygen Flow Rate (L/min) 6 12/04/24 17:53 Fraction of Inspired Oxygen (FIO2) 55 12/04/24 15:07 I&O: I&O Last 24 Hours 3 12/03/24 12/04/24 12/04/24 23:59 11:59 23:59 Intake Total 2150 / 2150 Output Total 800 / 800 Balance 1350 / 1350 I&O: Total Stay 3 12/04/24 11:39 thru 12/04/24 18:27 Intake Total 2150 Output Total 800 Balance 1350 Current Meds Ordered / Administered: Current meds ordered / Administered 3 Generic Name Dose Route Start Last Admin Trade Name Freq PRN Reason Stop Dose Admin Acetaminophen 650 mg 12/04/24 16:18 Acetaminophen 325 Mg Tablet PO Q6H PRN PRN Pain 1-10 Or Fever>100.7 Apixaban 5 mg 12/04/24 22:00 Apixaban 5 Mg Tablet PO BID [facility] Cholecalciferol 25 mcg 12/05/24 10:00 Cholecalciferol (Vit D3) 25 Mcg Tablet (1,000 Units) PO DAILY [facility] Ferrous Sulfate 325 mg 12/05/24 08:00 [facility]ate [facility] Levofloxacin 750 mg in 150 mls @ 100 mls/hr 12/05/24 10:00 Levaquin Iv IV Q24 [facility] Lactated Ringer's 500 mls @ 999 mls/hr 12/04/24 19:30 Lactated Ringers IV 12/04/24 20:00 .Q31M [facility] Protocol Methylprednisolone Sodium Succinate 40 mg 12/04/24 22:00 Methylprednisolone Sod Succ 40 Mg/Ml Vial IV Q8 [facility] Morphine Sulfate 2 mg 12/04/24 19:11 Morphine 2 Mg/Ml Syringe IV Q4H PRN PRN Pain Score 6-10 Ondansetron HCl 4 mg 12/04/24 16:18 Ondansetron 4 Mg/2 Ml Vial IV Q8H PRN PRN NAUSEA/VOMITING Oseltamivir Phosphate 30 mg 12/05/24 10:00 Oseltamivir Phosphate 30 Mg Capsule PO 12/09/24 10:01 BID [facility] Pregabalin 50 mg 12/04/24 22:00 Pregabalin 50 Mg Capsule PO TID [facility] Risperidone 0.5 mg 12/04/24 22:00 Risperidone 0.5 Mg Tablet PO QHS [facility] Protocol Senna/Docusate Sodium 1 tablet 12/04/24 22:00 Senna/Docusate Sodium 1 Tablet PO BID [facility] Sodium Chloride 10 - 40 ml 12/04/24 16:59 0.9 % Nacl (Sterile) Posiflush 10 Ml IV UD PRN Port access or dressing change Sodium Chloride 10 - 40 ml 12/04/24 16:59 0.9% Saline Lock 10 Ml Syringe IV UD PRN Midline Flush Tamsulosin HCl 0.4 mg 12/04/24 17:30 12/04/24 18:01 Tamsulosin Hcl 0.4 Mg Capsule PO Not Given DAILY@1730 [facility] Physical Exam Const oriented x3 and no apparent distress General Appearance: cooperative, lethargic, ill appearing and frail HEENT normocephalic and head/scalp atraumatic HEENT Narrative: dry membranes General Ear: hearing grossly impaired Eyes PERRL, EOMs intact bilaterally, conjunctivae normal and no scleral icterus Neck supple and no JVD Neck Narrative: appears to avoid turning full ROM to the right Chest inspection of chest normal Resp normal respiratory effort and no use of accessory muscles Effort and Inspection: able to speak in complete sentences Auscultation: rales Cardio regular rhythm Cardio Narrative: no ectopy, no murmur Rate: tachycardic GI normal to inspection, nondistended, normoactive bowel sounds and non-tender no CVA tenderness Extremity no clubbing, cyanosis or edema Skin Skin Narrative: stage 2 DTI POA, tenting on hands and forearms Neuro CN's II-XII intact bilaterally Psych cooperative and affect normal Mood & Affect: flat affect Lab / Micro Data 12/04/24 12:31 12/04/24 12:00 Labs: Laboratory Results - last 24 hr 12/04/24 11:57: Urine Color Yellow, Urine Clarity Clear, Urine pH 6.0, Ur Specific [place] 1.025, Urine Protein 30 H, Urine Glucose (UA) Normal, Urine Ketones Negative, Urine Occult Blood 250 H, Urine Nitrite Negative, Urine Bilirubin Negative, Urine Urobilinogen Normal, Ur Leukocyte Esterase 25 H, UrineRBC 50-100 SEEN, Urine WBC 0-5 SEEN, Ur Squamous Epith Cells 0 SEEN, Ur Transition Epith Cell 0-5 SEEN, Ur Renal Epithelial Cell 0-5 SEEN, Calcium Oxalate Crystal 1+, Urine Bacteria 0 SEEN, Urine Mucus 0 SEEN 12/04/24 12:00: Sodium 134, Potassium 4.4, Chloride 98, Carbon Dioxide 21.6, Anion Gap 14, BUN 19, Creatinine 0.56 L, Estim Creat Clear Calc 57.27, Est GFR (MDRD) Non-Af 92, BUN/Creatinine Ratio 34.0 H, Glucose 136 H, Calcium 8.5, TotalBilirubin 0.34, AST 30, ALT 20, Alkaline Phosphatase 100, Total Protein 6.1, Albumin 3.1 L, Globulin 3.0, Albumin/Globulin Ratio 1.0, Procalcitonin 2.62 H 12/04/24 12:31: WBC 13.4 H, RBC 3.40 L, Hgb 10.4 L, Hct 32.5 L, MCV 95.6, MCH 30.6, MCHC 32.0, RDW Std Deviation 50.7 H, RDW Coeff of Roselyn 14.6, Plt Count 439,MPV 9.3, Immature Gran % (Auto) 0.700, Neut % (Auto) 81.3 H, Lymph % (Auto) 6.7 L, [place] % (Auto) 6.6, Eos % (Auto) 4.3, Baso % (Auto) 0.4, Absolute Neuts (auto)10.9 H, Absolute Lymphs (auto) 0.90, Nucleated RBC % 0, PT 16.2 H, INR 1.3, APTT34.8, Lactic Acid 1.6 Micro: Microbiology 12/04/24 11:56 Mucosa - Nose SARS-CoV-2, Influenza & RSV (PCR) - Final Influenzae A Rhythm Strip Rhythm Strip: Sinus Tach Rate: 120 Ectopy: None Imaging Radiology Impression Chest/Abdomen/Pelvis CT 12/04/24 13:15 IMPRESSION: Increased markings at the lung bases slightly worse at the left lung base suggestive of possible atelectasis and/or early infiltrate. Questionable tiny gallstones along the dependent portion of the gallbladder lumen. Soft tissue prominence overlying the left lower anterior abdominal wall extending to the region of the left hip joints suggestive of possible hematoma. Clinical correlation recommended. One or more dose reduction techniques were used (e.g., Automated exposure control, adjustment of the mA and/or kV according to patient size, use of iterative reconstruction technique). Reading Location: [id number] Brain CT 12/04/24 15:32 IMPRESSION: 1. No visible intracranial hemorrhage. 2. Relatively advanced age indeterminate bilateral cerebral ischemic changes mayreflect chronic microvascular ischemia however this is not definite in the absence of prior exams to confirm stability. If there is concern for an acute ischemia in the setting of an acute focal neurologic deficit, MRI is recommended. Comparison with any available outside imaging may also be helpful. 3. Findings which may suggest normal pressure/communicating hydrocephalus in theappropriate clinical context. 4. Trace paranasal sinus disease. 5. Additional description as above. Reading Location: [id number] CT chest and abdomen and pelvis reviewed personally - small pleural effusion on left, thickened pleura on left, maybe chronic lung entrapment, atelectasis, faint mosaicism suggestive of edema vs viral PNA; large stool and gas burden in the large colon and rectal vault, s/p hysterectomy Assessment and Plan . Assessment and plan: ICU PRoblem List: Acute hypoxemic Respiratory failure FLu PNA Aspiration of gastric contents Wounds POA Failure to thrive, moderate to severe protein calorie malnutrition Sepsis without shock Plan: Titrate up to FIO2 to maintan SpO2 96-99% as this may be driving high tachycardia Another 500cc bolus 2/2 azotemia, poor skin turgor Strict I/O on catheter for UOP, averaging 100-150cc/hr so far [employer] c/s for malnutrition [employer] consult for silent aspiration Effusion too small to tap Levofloxacin should provide adequate GNR and HCAP coverage for elevated procal and WBC Unclear role for methylprednisolone and can likely be DC'd so as not to cause leukamoid reaction Sputum gs and culture Axel Price MD [facility] Critical Care Time: 60 minutes The entirety of this encounter was done via Telemedicine 12/04/241952 <Electronically signed by Axel Price MD> Cosigner Signature (if applicable): CC: Dr. Jenaro Ayers MD~ Signed [facility] Work Phone: [phone] Discharge summary Author She Tejada [facility] Note Date/Time December 04, 2024 5:20 pm [facility] Medical Records Department [address] [place] [address] Emergency Department Summary 12/04/24 MR#: [id number] Acct: [id number] Name: CLARITZA BURTON Rep #:[id number] : 1945 79 From: She Macias PCP: Dr. Jenaro Ayers MD Status:ADM IN Location: ICU CVICU20 2-1 HPI History of Present Illness Chief Complaint: Shortness of Breath Informant: EMS and SNF Narrative Narrative: Patient 79-year-old female presenting from [facility]way facility with historyof stroke causing tachycardia as well as recent hospitalization for parainfluenza virus, falls, Streptococcus alactolyticus bacteremia (treated withcefdinir), intractable back pain and and urinary retention (initially treated with Puentes catheter but was removed at time of discharge) presenting for vomiting and altered mental status as well as fever. Patient is on Eliquis per review of her MAR, but is unclear why. She reportedly threw up at 1010 and 1045this morning. They are concerned that she aspirated. She is no to be febrile per EMS. Is unclear how long the symptoms been going on. Per nursing facility report there is influenza and norovirus going around the facility. No other history obtained. Patient is minimally verbal at this time. Family arrived to the bedside. They state that since her discharge to the hospital she was also diagnosed with hyponatremia and PE/DVT for which she was started on Eliquis for. [facility] Medical History Anxiety Depression Osteoporosis Non-smoker Cerebral palsy Cataract Palpitations Elevated blood pressure reading without diagnosis of hypertension Essential (primary) hypertension Home Medications ?Medication ?Instructions ?Recorded ?Last Taken ?Type garlic 200 mg tablet 200 mg PO DAILY 01/16/18 Unk nown History cholecalciferol (vitamin D3) 25 1,000 unit PO DAILY Unknown History mcg (1,000 unit) tablet metoprolol succinate 50 mg 50 mg PO DAILY #90 TABLETS 01/22/24 Unknown Rx tablet,extended release 24 hr amlodipine 5 mg tablet 5 mg PO DAILY #90 tabs 10/05 Unknown Rx risperidone 0.5 mg tablet 0.5 mg PO QHS #0 tabs Unknown Rx tamsulosin 0.4 mg capsule 0.4 mg PO DAILY@1730 #0 caps 11/11/24 Unknown Rx apixaban 5 mg tablet (Eliquis) 5 mg PO BID 12/04/24 Un known History ferrous sulfate 325 mg (65 mg 325 mg PO BID 12/04/24 U nknown History iron) tablet (Feosol) lisinopril 20 mg tablet 20 mg PO DAILY 12/04/24 Unkn own History pregabalin 50 mg capsule (Lyrica) 50 mg PO TID 5 Unknown History sennosides 8.6 mg-docusate sodium 1 tab-cap PO BID 04/23 Unknown History 50 mg tablet (Stimulant Laxative Plus) Allergy/AdvReac Type Severity Reaction Status Date / Time amantadine (From Symmetrel) AdvReac Severe Unknown Verified 10/30/24 11:00 amoxicillin (From Augmentin) AdvReac Severe Unknown Verified 10/30/24 11:00 clavulanic acid (From AdvReac Severe Unknown Verified 10/30/24 11:00 Augmentin) erythromycin base AdvReac Severe Unknown Verified 10/30/24 11:00 lorazepam (From Ativan) AdvReac restless Verified 10/30/24 17:39 Family History Father Diabetes Hypertension Mother alzhemier Osteoporosis Surgical History History of tonsillectomy History of hysterectomy History of hip replacement Social History Smoking Status: Never smoker alcohol intake: never substance use type: does not use caffeine: Yes Type: coffee Number of servings: 3 what type of physical activity do you participate in: none seatbelt use: always do you feel safe at home: Yes ROS ROS ED Review of Systems ROS Unobtainable: due to mental status Constitutional Constitutional ED: Reports fever(s) Gastrointestinal Gastrointestinal: Reports vomiting EXAM Physical Exam Const Vital Signs: 12/04/24 11:41 12/04/24 11:41 12/04/24 11:50 Temperature 101.0 F H Temperature Source Temporal Pulse Rate 123 H 120 H Respiratory Rate 22 H 21 H Respiratory Effort Respiratory Depth Respiratory Pattern Blood Pressure 136/56 H Blood Pressure Mean 82 Pulse Ox 90 93 Oxygen Delivery Method Nasal Cannula Airvo Oxygen Flow Rate (L/min) 4 50 Fraction of Inspired Oxygen (FIO2) 53 55 12/04/24 11:51 12/04/24 11:51 12/04/24 12:10 Temperature 101.0 F H Temperature Source Temporal Pulse Rate 119 H Respiratory Rate 22 H Respiratory Effort Labored Nasal Flaring Respiratory Depth Shallow Respiratory Pattern Tachypnea Blood Pressure 136/56 H Blood Pressure Mean 82 Pulse Ox 97 97 Oxygen Delivery Method Airvo Airvo Airvo Oxygen Flow Rate (L/min) 50 50 50 Fraction of Inspired Oxygen (FIO2) 55 55 55 12/04/24 12:20 12/04/24 14:00 Temperature Temperature Source Pulse Rate 117 H 74 Respiratory Rate 22 H 16 Respiratory Effort Respiratory Depth Respiratory Pattern Blood Pressure 109/49 L Blood Pressure Mean 69 Pulse Ox 95 99 Oxygen Delivery Method Oxygen Flow Rate (L/min) Fraction of Inspired Oxygen (FIO2) 47 Constitutional Narrative: Chronically ill-appearing General Appearance ED: NAD and pallor HEENT Reports dry mucous membranes HEENT Narrative: Green bilious material dried in the mouth Mouth ED: Yes dry mucous membranes Mouth: dry mucous membranes Eyes PERRL and EOMs intact bilaterally Neck supple Chest Wall inspection of chest normal and palpation of chest normal Resp Resp Narrative: Rattles of the chest with very coarse breath sounds. Tachypneic. Cardio no murmurs Rate: tachycardic GI normal to inspection, nondistended, normoactive bowel sounds Auscultation: hypoactive bowel sounds Palpation: Negative for tender or guarding Extremity Extremity Narrative: Chronic appearing contracture to the right lower extremity. Neuro Neuro Narrative: No focal deficits appreciated. Sensorium / Orientation: orientation impaired and lethargic Skin no wounds General Skin Exam: pallor MDM MDM MDM Narrative Medical decision making narrative: Patient evaluated for vomiting and altered mental status. Patient is febrile and tachycardic. She is tachypneic. Septic workup is initiated. Differential includes aspiration pneumonia, influenza, gastroenteritis, bowel obstruction, ischemic bowel. Patient does have a leukocytosis of 13.4. No left shift. She has a stable kneewith a hemoglobin of 10.4. This is a stable hemoglobin. BMP largely normal. Lactate normal. Urinalysis consistent with hematuria but not consistent with infection. Influenza A is positive. Is given rectal Tylenol for fever in the emergency room. CT of the chest abdomen pelvis obtained for evaluation of aspiration as well as possible intra-abdominal process given her vomiting. There is increased markings at the lung bases slightly worse on the left suggestive of atelectasis or early infiltrate. My concern is for aspiration pneumonia. In addition thereis a questionable tiny gallstone in the gallbladder lumen. There is comment about soft tissue prominence over the left lower anterior abdominal wall extending to the region of the left hip suggestive of hematoma. This does not correlate with her physical exam. Patient is started on Levaquin for aspiration ammonia given she is a history of amoxicillin allergy. Patient is placed on Airvo for respiratory support with good response to it. Given IV fluids in the emergency room. Will be admitted for further respiratory monitoring and treatments. Is ordered Tamiflu in the emergency room however not sure she will be able to swallow it at this time. Lab Data Labs: Laboratory Results - last 24 hr 12/04/24 12/04/24 12/04/24 11:57 12:00 12:31 WBC 13.4 H RBC 3.40 L Hgb 10.4 L Hct 32.5 L MCV 95.6 MCH 30.6 MCHC 32.0 RDW Std Deviation 50.7 H RDW Coeff of Roselyn 14.6 Plt Count 439 MPV 9.3 Immature Gran % (Auto) 0.700 Neut % (Auto) 81.3 H Lymph % (Auto) 6.7 L [place] % (Auto) 6.6 Eos % (Auto) 4.3 Baso % (Auto) 0.4 Absolute Neuts (auto) 10.9 H Absolute Lymphs (auto) 0.90 Nucleated RBC % 0 PT 16.2 H INR 1.3 APTT 34.8 Sodium 134 Potassium 4.4 Chloride 98 Carbon Dioxide 21.6 Anion Gap 14 BUN 19 Creatinine 0.56 L Estim Creat Clear Calc 57.27 Est GFR (MDRD) Non-Af 92 BUN/Creatinine Ratio 34.0 H Glucose 136 H Lactic Acid 1.6 Calcium 8.5 Total Bilirubin 0.34 AST 30 ALT 20 Alkaline Phosphatase 100 Total Protein 6.1 Albumin 3.1 L Globulin 3.0 Albumin/Globulin Ratio 1.0 Urine Color Yellow Urine Clarity Clear Urine pH 6.0 Ur Specific Lincoln 1.025 Urine Protein 30 H Urine Glucose (UA) Normal Urine Ketones Negative Urine Occult Blood 250 H Urine Nitrite Negative Urine Bilirubin Negative Urine Urobilinogen Normal Ur Leukocyte Esterase 25 H Urine RBC 50-100 SEEN Urine WBC 0-5 SEEN Ur Squamous Epith Cells 0 SEEN Ur Transition Epith Cell 0-5 SEEN Ur Renal Epithelial Cell 0-5 SEEN Calcium Oxalate Crystal 1+ Urine Bacteria 0 SEEN Urine Mucus 0 SEEN Radiography Diagnostic Testing: Clinical Impression(s) from Imaging Studies Chest/Abdomen/Pelvis CT 12/04/24 13:15 IMPRESSION: Increased markings at the lung bases slightly worse at the left lung base suggestive of possible atelectasis and/or early infiltrate. Questionable tiny gallstones along the dependent portion of the gallbladder lumen. Soft tissue prominence overlying the left lower anterior abdominal wall extending to the region of the left hip joints suggestive of possible hematoma. Clinical correlation recommended. One or more dose reduction techniques were used (e.g., Automated exposure control, adjustment of the mA and/or kV according to patient size, use of iterative reconstruction technique). Reading Location: [facility] Rhythm Strip Rhythm Strip: Sinus Tach Rate: 120 Ectopy: None EKG Initial EKG: Attestation: I personally reviewed and interpreted this EKG as follows: Comments: Sinus tachycardia rate 120 bpm Normal axis, normal intervals Nonspecific T wave changes Management Discussion w/another healthcare provider: Hospitalist Discharge Plan Dx/Rx/DC Orders Clinical Impression: Influenza A, Tachycardia, Acute hypoxic respiratory failure, Vomiting Disposition Disposition: Acute Care Hospital [facility] Discharge Date/Time: 12/04/24 15:56 What to do if you have Problems For any increased pain, shortness of breath, bleeding, nausea or vomiting, chestpain, or any unexpected problems, contact your Primary Care Provider. Call [facility] ([phone]) or report to the closest Emergency Room. Call 911 if necessary. 12/04/24 1820 <Electronically signed by She Tejada DO> Cosigner Signature (if applicable): CC: Dr. Jenaro Ayers MD ~ Signed [facility] Work Phone: 1(705) 771-459003-07-2025 Evaluation note* Diagnosis Onset Date Resolution Status Admit Date Acute hypoxic respiratory failure resolved December 04, 2024 2:39pm Influenza A resolved December 04 2:39pm [facility] Work Phone: [phone]) 396-820003-07-2025 History and physical note Author Shiv Andrews [facility] Note Date/Time December 04, 2024 2:37 pm [facility] Medical Records Department [address] [place] [address] H&P Exam - Hospitalist 12/04/24 1435 MR#: [id number] Acct: [id number] Name: CLARITZA BURTON Rep #:[id number] : 1945 79 From: Shiv garrison DO PCP: Dr. Jenaro Ayers MD Status:ADM IN Location: ICU CVICU20 2-1 HPI - General General Date of Admission: 12/04/24 Date of Service: 12/04/24 Chief Complaint: Altered mentation, nausea/vomiting and fevers HPI Narrative CLARITZA BURTON, is a 79 F who presented to [facility] ED on 12/04/2024 with altered mentation, nausea/vomiting and fevers. Patient had a prolonged hospitalization here recently from 10/30-11/11 that was complicated by parainfluenza virus, Streptococcus bacteremia, intractable back pain, urinary retention and falls. She was eventually discharged to [facility]. On discussion with family today and review of [facility] records, she was admitted to the hospital side there at [facility] from 11/21-11/30. Hospitalization was complicated by hyponatremia, acute DVT/PE, UTI and worsening iron deficiency anemia. Notably she was found to have an extensive left lower extremity DVT, right popliteal DVT and both segmental and subsegmental PE and she was initiatedon Eliquis for this. Was noted that she was progressing poorly in their TCU prior to that hospitalization. She was discharged to [facility] on 11/30. Family noted that when they saw her last night she was mentating well. This morning, staff at the facility noted that she became altered and had 2 episodes of vomiting with concern for aspiration, so she was brought in for further evaluation. She is found to be positive for influenza A here. CT chest abdomenpelvis showed increased markings at bilateral lung bases but no significant aspiration pneumonia versus pneumonitis noted; abdomen was largely unremarkable. She was able to open eyes to command and squeeze hands on command but otherwisewas not able to answer any questions. She was noted to be hypoxic and was increased to Airvo 55 L in the ED. Given these findings, hospitalist was contacted for admission. I saw the patient at bedside in the ED, 2 family members are present. Patient was laying back in bed and breathing comfortably on Airvo. She did open eyes and squeeze my hands on command as well but otherwise appeared very weak and chronically ill-appearing. She was protecting her airway. However, she did sound quite rhonchorous in her upper airways bilaterally and had some wheezing noted as well. Discussed with family and on her prior admission here patient noted that she wished to be full code, and family states that no changes to her CODE STATUS have been made since then. We will maintain full CODE STATUS for now. Will be admitted for further management. [facility] Medical History Anxiety Depression Osteoporosis Non-smoker Cerebral palsy Cataract Palpitations Elevated blood pressure reading without diagnosis of hypertension Essential (primary) hypertension Home Medications ?Medication ?Instructions ?Recorded ?Last Taken ?Type garlic 200 mg tablet 200 mg PO DAILY 01/16/18 Unk nown History cholecalciferol (vitamin D3) 25 1,000 unit PO DAILY Unknown History mcg (1,000 unit) tablet metoprolol succinate 50 mg 50 mg PO DAILY #90 TABLETS 01/22/24 Unknown Rx tablet,extended release 24 hr amlodipine 5 mg tablet 5 mg PO DAILY #90 tabs 10/05 Unknown Rx risperidone 0.5 mg tablet 0.5 mg PO QHS #0 tabs Unknown Rx tamsulosin 0.4 mg capsule 0.4 mg PO DAILY@1730 #0 caps 11/11/24 Unknown Rx apixaban 5 mg tablet (Eliquis) 5 mg PO BID 12/04/24 Un known History ferrous sulfate 325 mg (65 mg 325 mg PO BID 12/04/24 U nknown History iron) tablet (Feosol) lisinopril 20 mg tablet 20 mg PO DAILY 12/04/24 Unkn own History pregabalin 50 mg capsule (Lyrica) 50 mg PO TID 5 Unknown History sennosides 8.6 mg-docusate sodium 1 tab-cap PO BID 04/23 Unknown History 50 mg tablet (Stimulant Laxative Plus) Allergy/AdvReac Type Severity Reaction Status Date / Time amantadine (From Symmetrel) AdvReac Severe Unknown Verified 10/30/24 11:00 amoxicillin (From Augmentin) AdvReac Severe Unknown Verified 10/30/24 11:00 clavulanic acid (From AdvReac Severe Unknown Verified 10/30/24 11:00 Augmentin) erythromycin base AdvReac Severe Unknown Verified 10/30/24 11:00 lorazepam (From Ativan) AdvReac restless Verified 10/30/24 17:39 Family History Father Diabetes Hypertension Mother alzhemier Osteoporosis Surgical History History of tonsillectomy History of hysterectomy History of hip replacement Social History Smoking Status: Never smoker alcohol intake: never substance use type: does not use caffeine: Yes Type: coffee Number of servings: 3 what type of physical activity do you participate in: none seatbelt use: always do you feel safe at home: Yes ROS Review of Systems ROS Unobtainable: due to mental status Vital Signs Vital Signs Vital Signs: 12/04/24 11:41 12/04/24 11:41 12/04/24 11:50 Temperature 101.0 F H Temperature Source Temporal Pulse Rate 123 H 120 H Respiratory Rate 22 H 21 H Respiratory Effort Respiratory Depth Respiratory Pattern Blood Pressure 136/56 H Blood Pressure Mean 82 Pulse Ox 90 93 Oxygen Delivery Method Nasal Cannula Airvo Oxygen Flow Rate (L/min) 4 50 Fraction of Inspired Oxygen (FIO2) 53 55 12/04/24 11:51 12/04/24 11:51 12/04/24 12:10 Temperature 101.0 F H Temperature Source Temporal Pulse Rate 119 H Respiratory Rate 22 H Respiratory Effort Labored Nasal Flaring Respiratory Depth Shallow Respiratory Pattern Tachypnea Blood Pressure 136/56 H Blood Pressure Mean 82 Pulse Ox 97 97 Oxygen Delivery Method Airvo Airvo Airvo Oxygen Flow Rate (L/min) 50 50 50 Fraction of Inspired Oxygen (FIO2) 55 55 55 12/04/24 12:20 12/04/24 14:00 Temperature Temperature Source Pulse Rate 117 H 74 Respiratory Rate 22 H 16 Respiratory Effort Respiratory Depth Respiratory Pattern Blood Pressure 109/49 L Blood Pressure Mean 69 Pulse Ox 95 99 Oxygen Delivery Method Oxygen Flow Rate (L/min) Fraction of Inspired Oxygen (FIO2) 47 Weight Weight: 71.9 kg Body Mass Index (BMI) 24.8 Physical Exam Const Constitutional Narrative: Elderly female, chronically ill-appearing, somnolent but was able to open eyes and squeeze my hands to command, otherwise laying back comfortably in bed and inno acute distress. General Appearance: cooperative Orientation / Consciousness: lethargic HEENT normocephalic, head/scalp atraumatic, hearing grossly normal bilaterally and nasal mucous membranes and turbinates normal HEENT Narrative: Poor dentition. Eyes PERRL, EOMs intact bilaterally and conjunctivae normal Chest inspection of chest normal Resp normal respiratory effort and no use of accessory muscles Resp Narrative: Breathing comfortably on Airvo at 55 L. Significant rhonchi noted in bilateral upper airways with mild wheezing noted as well. Cardio regular rate, regular rhythm, no murmurs and peripheral pulses 2+ throughout GI normal to inspection, nondistended, normoactive bowel sounds, soft to palpation,non-tender and non-distended Neuro Neuro Narrative: Contracture of right lower extremity noted in setting of cerebral palsy. Results Lab / Micro Data 12/04/24 12:31 12/04/24 12:00 Labs: Laboratory Results - last 24 hr 12/04/24 11:57: Urine Color Yellow, Urine Clarity Clear, Urine pH 6.0, Ur Specific Lincoln 1.025, Urine Protein 30 H, Urine Glucose (UA) Normal, Urine Ketones Negative, Urine Occult Blood 250 H, Urine Nitrite Negative, Urine Bilirubin Negative, Urine Urobilinogen Normal, Ur Leukocyte Esterase 25 H, UrineRBC 50-100 SEEN, Urine WBC 0-5 SEEN, Ur Squamous Epith Cells 0 SEEN, Ur Transition Epith Cell 0-5 SEEN, Ur Renal Epithelial Cell 0-5 SEEN, Calcium Oxalate Crystal 1+, Urine Bacteria 0 SEEN, Urine Mucus 0 SEEN 12/04/24 12:00: Sodium 134, Potassium 4.4, Chloride 98, Carbon Dioxide 21.6, Anion Gap 14, BUN 19, Creatinine 0.56 L, Estim Creat Clear Calc 57.27, Est GFR (MDRD) Non-Af 92, BUN/Creatinine Ratio 34.0 H, Glucose 136 H, Calcium 8.5, TotalBilirubin 0.34, AST 30, ALT 20, Alkaline Phosphatase 100, Total Protein 6.1, Albumin 3.1 L, Globulin 3.0, Albumin/Globulin Ratio 1.0 12/04/24 12:31: WBC 13.4 H, RBC 3.40 L, Hgb 10.4 L, Hct 32.5 L, MCV 95.6, MCH 30.6, MCHC 32.0, RDW Std Deviation 50.7 H, RDW Coeff of Roselyn 14.6, Plt Count 439,MPV 9.3, Immature Gran % (Auto) 0.700, Neut % (Auto) 81.3 H, Lymph % (Auto) 6.7 L, [place] % (Auto) 6.6, Eos % (Auto) 4.3, Baso % (Auto) 0.4, Absolute Neuts (auto)10.9 H, Absolute Lymphs (auto) 0.90, Nucleated RBC % 0, PT 16.2 H, INR 1.3, APTT34.8, Lactic Acid 1.6 Micro: Microbiology 12/04/24 11:56 Mucosa - Nose SARS-CoV-2, Influenza & RSV (PCR) - Final Influenzae A Imaging Radiology Impression Chest/Abdomen/Pelvis CT 12/04/24 13:15 IMPRESSION: Increased markings at the lung bases slightly worse at the left lung base suggestive of possible atelectasis and/or early infiltrate. Questionable tiny gallstones along the dependent portion of the gallbladder lumen. Soft tissue prominence overlying the left lower anterior abdominal wall extending to the region of the left hip joints suggestive of possible hematoma. Clinical correlation recommended. One or more dose reduction techniques were used (e.g., Automated exposure control, adjustment of the mA and/or kV according to patient size, use of iterative reconstruction technique). Reading Location: [id number] Assessment & Plan Assessment/Plan (1) Acute hypoxic respiratory failure: (2) Influenza A: PLAN: Plan Patient is a 79-year-old female who presented [facility] ED on 12/04/2024 with altered mentation, fevers and nausea/vomiting with concern for aspiration pneumonia. 1. Acute hypoxic respiratory failure in setting of flu infection with concern for aspiration pneumonia, recent history of moderate oropharyngeal dysphagia ? Admit under inpatient status to ICU. Rn Urology consulted. Flu A positive in the ED. CT chest with increased markings at lung bases concerning for atelectasis versus pneumonia but otherwise fairly clear. However, patient with significant rhonchi bilaterally and some wheezing noted. Requiring Airvo at 55 L in the ED to maintain appropriate oxygen saturations. Procalcitonin ordered. Will treat with IV steroids, scheduled DuoNebs, IV Levaquin and Tamiflu. Notably had moderate oropharyngeal dysphagia on MBSS here on 11/05. Speech therapy consulted. Will keep n.p.o. for now. Wean supplemental oxygen as able. 2. Acute toxic/metabolic encephalopathy ? Most likely secondary to flu infection with possible aspiration pneumonia. CThead ordered to rule out intracranial pathology. Maintaining airway without issue. Monitor closely and avoid sedating medications as able. Patient will rodger.p.o. status for now and cannot take p.o. medications; will follow-up speech therapy recommendations as noted above for this. 3. Mild chronic iron deficiency anemia ? Hemoglobin 10.4 on admit, stable at baseline. Continue home iron supplement. 4. Adult failure to thrive, history of cerebral palsy ? PT/OT/case management consulted. Patient with recent prolonged hospitalizations both here and at [facility] and has had significantly diminished functional status over that time. Presented here from SNF at [facility]. Presume she will need SNF placement again on discharge. 5. Recent DVT/PE on Eliquis ? Diagnosed during recent hospitalization at [facility]. Per report, studies showed an extensive left lower extremity DVT, right popliteal DVT and both segmental and subsegmental PE. Has been on Eliquis since then. Continue home Eliquis. 6. Urinary retention ? Maintain Puentes catheter. Continue home Flomax. 7. Hypertension ? Holding home lisinopril, Toprol and amlodipine. DVT prophylaxis: Not indicated, on Eliquis CODE STATUS: Full code, verified Expected disposition: TBD Total clinical time spent by myself addressing the patient's medical issues, reviewing all the data, and collaborating with patient's care team: 75 minutes. Charges/Coding Visit Charges Inpatient E&M: 88359 Init Hosp L3 12/04/24 1537 <Electronically signed by Shiv Andrews DO> Cosigner Signature (if applicable): CC: Dr. Shiv Andrews DO; Dr. Jenaro Ayers MD~ Signed [facility] Work Phone: 1(920) 238-198803-07-2025 History and physical note [facility] Medical Records Department [address] [place] [id number] H&P Exam - Hospitalist 12/04/24 1435 MR#: [id number] Acct: [id number] Name: CLARITZA BURTON Rep #:[id number] : 1945 79 From: Shiv garrison DO PCP: Dr. Jenaro Ayers MD Status:ADM IN Location: ICU CVICU20 2-1 HPI - General General Date of Admission: 12/04/24 Date of Service: 12/04/24 Chief Complaint: Altered mentation, nausea/vomiting and fevers HPI Narrative CLARITZA BURTON, is a 79 F who presented to [facility] ED on 12/04/2024 with altered mentation, nausea/vomiting and fevers. Patient had a prolonged hospitalization here recently from10/30-11/11 that was complicated by parainfluenza virus, Streptococcus bacteremia, intractable back pain, urinary retention and falls. She was eventually discharged to [facility]. On discussion with family today and review of [facility] records, she was admitted to the hospital side there at [facility] from 11/21-11/30. Hospitalization was complicated by hyponatremia, acute DVT/PE, UTI and worsening iron deficiency anemia. Notably she was found to have an extensive left lower extremity DVT, right popliteal DVT and both segmental and subsegmental PE and she was initiatedon Eliquis for this. Was noted that she was progressing poorly in their TCU prior to that hospitalization. She was discharged to [facility] on 11/30. Family noted that when they saw her last night she was mentating well. This morning, staff at the facility noted that she became altered and had 2 episodes of vomiting with concern for aspiration, soshe was brought in for further evaluation. She is found to be positive for influenza A here. CT chest abdomenpelvis showed increased markings at bilateral lung bases but no significant aspiration pneumonia versus pneumonitis noted; abdomen was largely unremarkable. She was able to open eyes to command and squeeze hands on command but otherwisewas not able to answer any questions. She was noted ceferino hypoxic and was increased to Airvo 55 L in the ED. Given these findings, hospitalist was contacted for admission. I saw the patient at bedside in the ED, 2 family members are present. Patient was laying back in bed and breathing comfortably on Airvo. She did open eyes and squeeze my hands on command as well but otherwise appeared very weak and chronically ill-appearing. She was protecting her airway. However, she did sound quite rhonchorous in her upper airways bilaterally and had some wheezing noted as well. Discussed with family and on her prior admission here patient noted that she wished to be full code, and family states that no changes to her CODE STATUS have been made since then. We will maintain full CODE STATUS for now. Will be admitted for further management. [facility] Medical History Anxiety Depression Osteoporosis Non-smoker Cerebral palsy Cataract Palpitations Elevated blood pressure reading without diagnosis of hypertension Essential (primary) hypertension Home Medications ?Medication ?Instructions ?Recorded ?Last Taken ?Type garlic 200 mg tablet 200 mg PO DAILY 01/16/18 Unk nown History cholecalciferol (vitamin D3) 25 1,000 unit PO DAILY Unknown History mcg (1,000 unit) tablet metoprolol succinate 50 mg 50 mg PO DAILY #90 TABLETS 01/22/24 Unknown Rx tablet,extended release 24 hr amlodipine 5 mg tablet 5 mg PO DAILY #90 tabs 10/05 Unknown Rx risperidone 0.5 mg tablet 0.5 mg PO QHS #0 tabs Unknown Rx tamsulosin 0.4 mg capsule 0.4 mg PO DAILY@1730 #0 caps 11/11/24 Unknown Rx apixaban 5 mg tablet (Eliquis) 5 mg PO BID 12/04/24 Un known History ferrous sulfate 325 mg (65 mg 325 mg PO BID 12/04/24 U nknown History iron) tablet (Feosol) lisinopril 20 mg tablet 20 mg PO DAILY 12/04/24 Unkn own History pregabalin 50 mg capsule (Lyrica) 50 mg PO TID 5 Unknown History sennosides 8.6 mg-docusate sodium 1 tab-cap PO BID 04/23 Unknown History 50 mg tablet (Stimulant Laxative Plus) Allergy/AdvReac Type Severity Reaction Status Date / Time amantadine (From Symmetrel) AdvReac Severe Unknown Verified 10/30/24 11:00 amoxicillin (From Augmentin) AdvReac Severe Unknown Verified 10/30/24 11:00 clavulanic acid (From AdvReac Severe Unknown Verified 10/30/24 11:00 Augmentin) erythromycin base AdvReac Severe Unknown Verified 10/30/24 11:00 lorazepam (From Ativan) AdvReac restless Verified 10/30/24 17:39 Family History Father Diabetes Hypertension Mother alzhemier Osteoporosis Surgical History History of tonsillectomy History of hysterectomy History of hip replacement Social History Smoking Status: Never smoker alcohol intake: never substance use type: does not use caffeine: Yes Type: coffee Number of servings: 3 what type of physical activity do you participate in: none seatbelt use: always do you feel safe at home: Yes ROS Review of Systems ROS Unobtainable: due to mental status Vital Signs Vital Signs Vital Signs: 12/04/24 11:41 12/04/24 11:41 12/04/24 11:50 Temperature 101.0 F H Temperature Source Temporal Pulse Rate 123 H 120 H Respiratory Rate 22 H 21 H Respiratory Effort Respiratory Depth Respiratory Pattern Blood Pressure 136/56 H Blood Pressure Mean 82 Pulse Ox 90 93 Oxygen Delivery Method Nasal Cannula Airvo Oxygen Flow Rate (L/min) 4 50 Fraction of Inspired Oxygen (FIO2) 53 55 12/04/24 11:51 12/04/24 11:51 12/04/24 12:10 Temperature 101.0 F H Temperature Source Temporal Pulse Rate 119 H Respiratory Rate 22 H Respiratory Effort Labored Nasal Flaring Respiratory Depth Shallow Respiratory Pattern Tachypnea Blood Pressure 136/56 H Blood Pressure Mean 82 Pulse Ox 97 97 Oxygen Delivery Method Airvo Airvo Airvo Oxygen Flow Rate (L/min) 50 50 50 Fraction of Inspired Oxygen (FIO2) 55 55 55 12/04/24 12:20 12/04/24 14:00 Temperature Temperature Source Pulse Rate 117 H 74 Respiratory Rate 22 H 16 Respiratory Effort Respiratory Depth Respiratory Pattern Blood Pressure 109/49 L Blood Pressure Mean 69 Pulse Ox 95 99 Oxygen Delivery Method Oxygen Flow Rate (L/min) Fraction of Inspired Oxygen (FIO2) 47 Weight Weight: 71.9 kg Body Mass Index (BMI) 24.8 Physical Exam Const Constitutional Narrative: Elderly female, chronically ill-appearing, somnolent but was able to open eyes and squeeze my handsto command, otherwise laying back comfortably in bed and inno acute distress. General Appearance: cooperative Orientation / Consciousness: lethargic HEENT normocephalic, head/scalp atraumatic, hearing grossly normal bilaterally and nasal mucous membranesand turbinates normal HEENT Narrative: Poor dentition. Eyes PERRL, EOMs intact bilaterally and conjunctivae normal Chest inspection of chest normal Resp normal respiratory effort and no use of accessory muscles Resp Narrative: Breathing comfortably on Airvo at 55 L. Significant rhonchi noted in bilateral upper airways with mild wheezing noted as well. Cardio regular rate, regular rhythm, no murmurs and peripheral pulses 2+ throughout GI normal to inspection, nondistended, normoactive bowel sounds, soft to palpation,non-tender and non-distended Neuro Neuro Narrative: Contracture of right lower extremity noted in setting of cerebral palsy. Results Lab / Micro Data 12/04/24 12:31 12/04/24 12:00 Labs: Laboratory Results - last 24 hr 12/04/24 11:57: Urine Color Yellow, Urine Clarity Clear, Urine pH 6.0, Ur Specific [place] 1.025, Urine Protein 30 H, Urine Glucose (UA) Normal, Urine Ketones Negative, Urine Occult Blood 250 H, Urine Nitrite Negative, Urine Bilirubin Negative, Urine Urobilinogen Normal, Ur Leukocyte Esterase 25 H, UrineRBC 50-100 SEEN, Urine WBC 0-5 SEEN, Ur Squamous Epith Cells 0 SEEN, Ur Transition Epith Cell 0-5 SEEN, Ur Renal Epithelial Cell 0-5 SEEN, Calcium Oxalate Crystal 1+, Urine Bacteria 0 SEEN, Urine Mucus 0 SEEN 12/04/24 12:00: Sodium 134, Potassium 4.4, Chloride 98, Carbon Dioxide 21.6, Anion Gap 14, BUN 19, Creatinine 0.56 L, Estim Creat Clear Calc 57.27, Est GFR (MDRD) Non-Af 92, BUN/Creatinine Ratio 34.0H, Glucose 136 H, Calcium 8.5, TotalBilirubin 0.34, AST 30, ALT 20, Alkaline Phosphatase 100, TotalProtein 6.1, Albumin 3.1 L, Globulin 3.0, Albumin/Globulin Ratio 1.0 12/04/24 12:31: WBC 13.4 H, RBC 3.40 L, Hgb 10.4 L, Hct 32.5 L, MCV 95.6, MCH 30.6, MCHC 32.0, RDW Std Deviation 50.7 H, RDW Coeff of Roselyn 14.6, Plt Count 439,MPV 9.3, Immature Gran % (Auto) 0.700, Neut % (Auto) 81.3 H, Lymph % (Auto) 6.7 L, [place] % (Auto) 6.6, Eos % (Auto) 4.3, Baso % (Auto) 0.4, Absolute Neuts (auto)10.9 H, Absolute Lymphs (auto) 0.90, Nucleated RBC % 0, PT 16.2 H, INR 1.3, APTT34.8, Lactic Acid 1.6 Micro: Microbiology 12/04/24 11:56 Mucosa - Nose SARS-CoV-2, Influenza & RSV (PCR) - Final Influenzae A Imaging Radiology Impression Chest/Abdomen/Pelvis CT 12/04/24 13:15 IMPRESSION: Increased markings at the lung bases slightly worse at the left lung base suggestive of possible atelectasis and/or early infiltrate. Questionable tiny gallstones along the dependent portion of the gallbladder lumen. Soft tissue prominence overlying the left lower anterior abdominal wall extending to the region of the left hip joints suggestive of possible hematoma. Clinical correlation recommended. One or more dose reduction techniques were used (e.g., Automated exposure control, adjustment of the mA and/or kV according to patient size, use of iterative reconstruction technique). Reading Location: [id number] Assessment & Plan Assessment/Plan (1) Acute hypoxic respiratory failure: (2) Influenza A: PLAN: Plan Patient is a 79-year-old female who presented [facility] ED on 12/04/2024 with altered mentation, fevers and nausea/vomiting with concern for aspiration pneumonia. 1. Acute hypoxic respiratory failure in setting of flu infection with concern for aspiration pneumonia, recent history of moderate oropharyngeal dysphagia ? Admit under inpatient status to ICU. Rn Urology consulted. Flu A positive in the ED. CT chest with increased markings at lung bases concerning for atelectasis versus pneumonia but otherwise fairlyclear. However, patient with significant rhonchi bilaterally and some wheezing noted. Requiring Airvo at 55 L in the ED to maintain appropriate oxygen saturations. Procalcitonin ordered. Will treat with IV steroids, scheduled DuoNebs, IV Levaquin and Tamiflu. Notably had moderate oropharyngeal dysphagia on MBSS here on 11/05. Speech therapy consulted. Will keep n.p.o. for now. Wean supplemental oxygen as able. 2. Acute toxic/metabolic encephalopathy ? Most likely secondary to flu infection with possible aspiration pneumonia. CThead ordered to ruleout intracranial pathology. Maintaining airway without issue. Monitor closely and avoid sedating medications as able. Patient will rodger.p.o. status for now and cannot take p.o. medications; will follow-up speech therapy recommendations as noted above for this. 3. Mild chronic iron deficiency anemia ? Hemoglobin 10.4 on admit, stable at baseline. Continue home iron supplement. 4. Adult failure to thrive, history of cerebral palsy ? PT/OT/case management consulted. Patient with recent prolonged hospitalizations both here and at [facility] and has had significantly diminished functional status over that time. Presented here from SNF at [facility]. Presume she will need SNF placement again on discharge. 5. Recent DVT/PE on Eliquis ? Diagnosed during recent hospitalization at [facility]. Per report, studies showed an extensive left lower extremity DVT, right popliteal DVT and both segmental and subsegmental PE. Has been on Eliquissince then. Continue home Eliquis. 6. Urinary retention ? Maintain Puentes catheter. Continue home Flomax. 7. Hypertension ? Holding home lisinopril, Toprol and amlodipine. DVT prophylaxis: Not indicated, on Eliquis CODE STATUS: Full code, verified Expected disposition: TBD Total clinical time spent by myself addressing the patient's medical issues, reviewing all the data, and collaborating with patient's care team: 75 minutes. Charges/Coding Visit Charges Inpatient E&M: 17847 Init Hosp L3 12/04/24 1537 Cosigner Signature (if applicable): CC: Dr. Shiv Andrews DO; Dr. Jenaro Ayers MD~ Signed [facility]03-07-2025 [facility] Diagnostic study note [facility] Imaging Services [address] [place] [address] CT Chest, Abd, Pel w/Contrast MR#: [id number] Acct: [id number] Name: CLARITZA BURTON Rep #: [id number] : 1945 F 79 From: Mike Johnson MD PCP: Dr. Jenaro Ayers MD Status: REG ER Study:CT Chest, Abd, Pel w/Contrast Date of Margarita xam: 12/04/24 Exam# [id number] Ordering Dr: Anival Tejada DO PROCEDURE: CT CHEST, ABD, PEL W/CONTRAST REASON FOR EXAM: Fever. Vomiting and hypoxia. Possible aspiration. TECHNIQUE: Chest, abdomen and pelvis CT with intravenous contrast. No oral contrast. CONTRAST: 100 cc of Isovue-300. COMPARISON: Comparison is made with prior CT scan of the abdomen and pelvis dated November 01, 2024. FINDINGS: CT CHEST: Hardware: None. Lymph nodes: No mediastinal hilar or axillary lymphadenopathy. Heart and Vasculature: Normal heart size. No pericardial effusion. Thoracic aorta and pulmonary arteries are unremarkable.. Mild coronary artery calcification is present. Mild atherosclerotic calcification of the aortic arch. Lungs and Airways: Mild degree of increased linear markings at the lung bases suggestive of atelectasis and/or scarring. This is worse at the left lung base. Pleura: No pleural effusion. No pneumothorax. Bones: Degenerative changes of the thoracic spine. Diffuse osteopenia of the thoracic vertebrae as well as the proximal portions of both humerus. CT ABDOMEN/PELVIS: Liver: Unremarkable. Gallbladder: Questionable small layering gallstones along the dependent portion of the gallbladder lumen. Spleen: Unremarkable. Pancreas: Unremarkable. Adrenals: Unremarkable. Kidneys: Unremarkable. Bladder: A Puentes catheter is seen within a decompressed urinary bladder. Reproductive Organs: Prior hysterectomy. Adnexal regions are unremarkable. Bowel: Unremarkable. Appendix: Nonvisualized. Lymph nodes: No suspicious lymph node enlargement. Vasculature: Mild diffuse atherosclerotic calcifications are noted. Peritoneum / Retroperitoneum: No ascites. No free air. Bones: Degenerative changes of the spine. Stable anterior listhesis of L5 on S1. Prior ORIF of the left intertrochanteric fracture. Soft tissue density is seen in the subcutaneous tissues overlying the left loweranterior abdomen extending into the region of the hip joint. This may represent hematoma if there has a history of trauma or recent surgical intervention. CT/CT Chest, Abd, Pel w/Contrast IMPRESSION: Increased markings at the lung bases slightly worse at the left lung base suggestive of possible atelectasis and/or early infiltrate. Questionable tiny gallstones along the dependent portion of the gallbladder lumen. Soft tissue prominence overlying the left lower anterior abdominal wall extending to the region of the left hip joints suggestive of possible hematoma. Clinical correlation recommended. One or more dose reduction techniques were used (e.g., Automated exposure control, adjustment of the mA and/or kV according to patient size, use of iterative reconstruction technique). Reading Location: [id number] CC: Dr. She Tejada, DO; Dr. Jenaro Ayers MD ~ Telephone Recorder: Signed [facility]03-07-2025 Radiology Diagnostic study [facility]03-03-2025 Hospital Discharge instructions Patient Education 11/30/2024 14:21:10 Weakness, Bmcg-lb-Hymf Weakness Weakness is a lack of strength. You may feel weak all over your body (generalized), or you may feelweak in one part of your body (focal). There are many potential causes of weakness. Sometimes, the cause of your weakness may not be known. Some causes of weakness can be serious, so it is important to see your doctor. Follow these instructions at home: Activity Rest as needed. Try to get enough sleep. Most adults need 7 8 hours of sleep each night. Talk to your doctor about how much sleep you need each night. Do exercises, such as arm curls and leg raises, for 30 minutes at least 2 days a week or as told byyour doctor. Think about working with a physical therapist or hardware trainer to help you get stronger. General instructions Take gmmo-[id number]-[id number] and prescription medicines only as told by your doctor. Eat a healthy, well-balanced diet. This includes: ?Proteins to build muscles, such as lean meats and fish. ?Fresh fruits and vegetables. ?Carbohydrates to boost energy, such as whole grains. Drink enough fluid to keep your pee (urine) pale yellow. Keep all follow-up visits as told by your doctor. This is important. Contact a doctor if: Your weakness does not get better or it gets worse. Your weakness affects your ability to: ?Think clearly. ?Do your normal daily activities. Get help right away if you: Have sudden weakness on one side of your face or body. Have chest pain. Have trouble breathing or shortness of breath. Have problems with your vision. Have trouble talking or swallowing. Have trouble standing or walking. Are light-headed. Pass out (lose consciousness). Summary Weakness is a lack of strength. You may feel weak all over your body or just in one part of your body. There are many potential causes of weakness. Sometimes, the cause of your weakness may not be known. Rest as needed, and try to get enough sleep. Most adults need 7 8 hours of sleep each night. Eat a healthy, well-balanced diet. This information is not intended to replace advice given to you by your health care provider. Make sure you discuss any questions you have with your health care provider. Document Released: 08/29/2009 Document Revised: 04/22/2019 Document Reviewed: 04/22/2019 [employer] Patient Education 2020 [employer]. Follow Up Care 11/21/2024 09:49:39 With:LYLA MATHIS MD, [facility], Surgery, Vascular Surgeons Address: [facility] [address] [place] [id number] When: Unknown Comments:They will call you to schedule your post-hospital follow-up appointment with vascular specialist. With:ARACELI HART MD Address: [address] [place] [address] [address] [place], [place] [phone] When: Unknown [facility] 03-03-2025 Note Discharge Instructions Thank you for allowing [facility] to assist you with your healthcare needs. The following is importantdischarge information regarding your hospital visit. Your Care Team Manan Vaca CNP Your Diagnosis Anemia Bacteriuria Dehydration DVT of lower extremity, bilateral Hyperkalemia Hyponatremia Pulmonary embolus Radiculopathy of leg Tachycardia Weakness What to do next Instructions From Your Doctor Patient was admitted to [facility] on 10/30 due to falls, worsening low back pain and difficulty ambulating. CT of the lumbar spine revealed loss of height of the L3 and L5 vertebra aswell anterolisthesis of L5 on S1. She was positive for parainfluenza. She also had an elevated white blood count and blood cultures were obtained. Blood cultures ultimately grew streptococcus alactolyticus. Dr. Art, infectious disease, was consulted and started broad spectrum antibiotics. He recommended a colonoscopy due to this bacteria and Dr. Kwan, GI, was consulted. Colonoscopy revealed mild mucosal changes in the sigmoid colon, descending colon, at the hepatic flexure, the ascending colon and the cecum secondary to colitis. It also revealed diverticulosis in the rectosigmoid colon. Antibiotics were de-escalated to cefdinir with a stop date of 11/15. MRI of the lumbar spine was done which revealed moderate/severe spinal stenosis and severe bilateral foraminal narrowing with degenerative joint disease. She had issues with urinary retention and had a puentes catheter briefly. Shewas started on Flomax and the catheter was able to be discontinued. Patient was seen by therapy whorecommended a skilled stay. Patient was transferred to [facility] for ongoing rehab on 11/11. Patient progressed very slowly with therapy while in the TCU. She had seen speech therapy at [facility] who recommended minced and moist diet with nectar thickened liquids. She was also a supervised feed. She was seen by speech therapy at [facility] who stated to continue the diet but patient did not need to be supervised. Patient struggles with depression and has intermittently had poor intake through her stay. On 11/20, we had a care conference with family to discuss progress and recommendation that patient would benefit from going to a SNF and possibly transitioning to long- term care. Patient noted to be lethargic during care conference. Labs checked on 11/21 which revealed sodium 120. Patient as discharged from TCU to inpatient status. She was given IV fluids with improvement in her sodium to 135. She has been more awake and alert and had betterintake with improvement in her sodium. Therapy reassessed patient and recommended an ongoing skilled stay. Patient required a puentes catheter again due to retention. We recommend that she follow- up with urology as an outpatient. Patient is medically optimized for discharge to SNF today. Follow Up Appointments Follow Up with LYLA MATHIS MD, [facility], Surgery, Vascular Surgeons Where:[facility] [address] [facility] [address] [place] [phone] Additional Information: They will call you to schedule your post-hospital follow-up appointment with vascular specialist. Follow Up with ARACELI HART MD Where:[address] [facility] [address] [place] [phone] The Following Activity and Diet Have Been Ordered for You Transfer of Care Activity - Ordered -- As instructed by therapy, 11/30/24 14:08:00 EST Transfer of Care Diet - Ordered -- Type of Diet: Regular Diet, 11/30/24 14:08:00 EST The Following Treatments Have Been Ordered for You Discharge Labs Transfer of Care Labwork - Ordered -- CBC, BMP, Anticoagulant therapy, UTI with cipro, follow-up within: 3-5 days, 11/30/24 14:08:00 EST Discharge Radiology No qualifying data available. Other Therapies Transfer of Care OT - Ordered -- Reason for therapy: weakness, 11/30/24 14:08:00 EST Transfer of Care PT - Ordered -- Reason for therapy: Weakness, 11/30/24 14:08:00 EST Post Acute Orders Transfer of Care Admission Level of Care - Ordered -- Level of Care SNF, 11/30/24 14:08:38 EST Transfer of Care Code Status - Ordered -- Full Code, Constant Order Transfer of Care Labwork - Ordered -- CBC, BMP, Anticoagulant therapy, UTI with cipro, follow-up within: 3-5 days, 11/30/24 14:08:00 EST Transfer of Care Orders Electronically Signed By - Ordered -- 11/30/24 14:08:00 EST, MANAN VACA APRN-COM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 Transfer of Care Oxygen Therapy - Ordered -- Oxygen (CONTINUOUS), Mobile in the Home, Nasal Cannula, 2 liters per minute, 999 month(s), 11/30/24 14:08:00 EST Transfer of Care Prognosis - Ordered -- Fair, Patient Aware: Yes Transfer of Care Rehab Potential - Ordered -- Rehab potential fair, 11/30/24 14:08:38 EST Allergies Augmentin(Severe) amantadine(Severe) amoxicillin(Severe) erythromycin base(Severe) LORazepam Restlessness Medications Please ask your primary doctor or pharmacist before taking any other medication not listed, including over the counter drugs, herbal medications, vitamins and or supplements as they may interact withyour home medications. What How Much When Why Instructions Last Dose New apixaban (Eliquis 5 mg oral tablet) 1 tab(s) by mouth Two (2) times a day Duration: 30 Days start at 0800 New apixaban (Eliquis 5 mg oral tablet) 2 tab(s) by mouth Two (2) times a day Duration: 3 Days Last dose at 2100 New ciprofloxacin (Cipro 500 mg oral tablet) 1 tab(s) by mouth Every 12 hours Last dose at 2100 New ferrous sulfate (ferrous sulfate 325 mg (65 mg elemental iron) oral tablet) 1 tab(s) by mouth Two (2) times a day New ocular lubricant (Artificial Tears) 2 Drops Both eyes Three (3) times a day Changed herbal/ nutritional product (garlic oral capsule) 200 Milligram by mouth Every day Changed pregabalin (Lyrica 50 mg oral capsule) 1 cap by mouth Three (3) times a day Radiculopathy of leg Duration: 3 Days Printed Prescription Unchanged amLODIPine (amLODIPine 5 mg oral tablet) 1 tab(s) by mouth Once a day Unchanged cholecalciferol (Vitamin D3) 25 Microgram by mouth Every day Unchanged lisinopril (lisinopril 20 mg oral tablet) 1 tab(s) by mouth Once a day Unchanged metoprolol (metoprolol succinate 50 mg oral TABLET extended release) 1 tab(s) by mouth Once a day Unchanged polyethylene glycol 3350 17 gram(s) by mouth Once a day Unchanged risperiDONE (risperiDONE 0.5 mg oral tablet) 1 tab(s) by mouth Daily at bedtime Unchanged senna (senna (sennosides) 8.6 mg oral tablet) 1 tab(s) by mouth Two (2) times a day Unchanged tamsulosin (tamsulosin 0.4 mg oral capsule) 1 cap Once a day What How Much When Comments Stop Taking glucosamine (glucosamine 500 mg oral capsule) 1 cap by mouth Once a day Stop Taking nystatin (nystatin 100,000 units/ mL oral suspension) 5 Milliliter by mouth Four (4) times a day Stop Taking potassium chloride (Potassium Chloride (Eqv-K-Tab) 20 mEq oral tablet, extended release) 1 tab(s) by mouth Once a day Please take this list to your next doctor s visit. Bring all medications you take, including over the counter medications, herbals and other supplements with you to your doctor s visit. Patients and families are reminded to discard old lists and to update any records with all medication providers or retail pharmacies. Medication Leaflets pregabalin (pre MIKE a mayank) Dru Gonsales What is the most important information I should know about pregabalin? Pregabalin can cause a severe allergic reaction. Stop taking this medicine and seek emergency medical help if you have hives or blisters on your skin, trouble breathing, or swelling in your face, mouth, or throat. Some people have thoughts about suicide while taking pregabalin. Stay alert to changes in your moodor symptoms. Report any new or worsening symptoms to your doctor. If you have diabetes or heart problems, call your doctor if you have weight gain or swelling in your hands or feet while taking pregabalin. Do not stop using pregabalin suddenly, even if you feel fine. Stopping suddenly may cause withdrawal symptoms. What is pregabalin? Pregabalin is an anti-epileptic drug, also called an anticonvulsant. It works by slowing down impulses in the brain that cause seizures. Pregabalin also affects chemicals in the brain that send pain signals across the nervous system. Pregabalin is used to treat pain caused by fibromyalgia, or nerve pain in people with diabetes (diabetic neuropathy), herpes zoster (post-herpetic neuralgia), or spinal cord injury. Pregabalin is also used with other medications to treat partial onset seizures in adults and children who are at least 1 month old. Pregabalin may also be used for purposes not listed in this medication guide. What should I discuss with my healthcare provider before taking pregabalin? You should not use pregabalin if you are allergic to it. Tell your doctor if you have ever had: lung disease, such as chronic obstructive pulmonary disease (COPD); a mood disorder, depression, or suicidal thoughts; heart problems (especially congestive heart failure); a bleeding disorder, or low levels of platelets in your blood; kidney disease (or if you are on dialysis); diabetes (unless you are taking pregabalin to treat diabetic neuropathy); drug or alcohol addiction; or a severe allergic reaction (angioedema). Do not give this medicine to a child without medical advice. Pregabalin is not approved for use by anyone younger than 18 years old to treat nerve pain caused by fibromyalgia, diabetes, herpes zoster, or spinal cord injury. Pregabalin is not approved for seizures in anyone younger than 1 month old. Some people have thoughts about suicide while taking pregabalin. Your doctor will need to check your progress at regular visits. Your family or other caregivers should also be alert to changes in your mood or symptoms. Seizure control is very important during , and having a seizure could harm both mother andbaby. Do not start or stop taking pregabalin without your doctor's advice, and tell your doctor right away if you become . If you are , your name may be listed on a registry to track the effects of pregabalin on the baby. Pregabalin can decrease sperm count and may affect fertility in men (your ability to have children). In animal studies, pregabalin also caused defects in the offspring of males treated with this medicine. However, it is not known whether these effects would occur in humans. Ask your doctor about your risk. You should not breastfeed while using pregabalin. How should I take pregabalin? Follow all directions on your prescription label and read all medication guides or instruction sheets. Your doctor may occasionally change your dose. Use the medicine exactly as directed. Take the medicine at the same time each day, with or without food. Swallow an extended-release tablet whole and do not crush, chew, or break it. Measure liquid medicine carefully. Use the dosing syringe provided, or use a medicine dose-measuring device (not a kitchen spoon). Call your doctor if your symptoms do not improve, or if they get worse. Do not stop using pregabalin suddenly, even if you feel fine. Stopping suddenly may cause increasedseizures or unpleasant withdrawal symptoms. Follow your doctor's instructions about tapering your dose for at least 1 week before stopping completely. In case of emergency, wear or carry medical identification to let others know you take seizure medication. Store at room temperature away from moisture, heat, and light. What happens if I miss a dose? Take the medicine as soon as you can, but skip the missed dose if it is almost time for your next dose. Do not take two doses at one time. What happens if I overdose? Seek emergency medical attention or call the Poison Help line at . What should I avoid while taking pregabalin? Avoid drinking alcohol. It may increase certain side effects of pregabalin. Avoid driving or hazardous activity until you know how this medicine will affect you. Your reactions could be impaired. What are the possible side effects of pregabalin? Pregabalin can cause a severe allergic reaction. Stop taking this medicine and get emergency medical help if you have: hives or blisters on your skin; difficult breathing; swelling of your face, lips, tongue, or throat. Report any new or worsening symptoms to your doctor, such as: mood or behavior changes, depression,anxiety, panic attacks, trouble sleeping, or if you feel impulsive, irritable, agitated, hostile, aggressive, restless, hyperactive (mentally or physically), or have thoughts about suicide or hurtingyourself. Call your doctor at once if you have: weak or shallow breathing; blue-colored skin, lips, fingers, and toes; confusion, extreme drowsiness or weakness; vision problems; skin sores (if you have diabetes); easy bruising, unusual bleeding; swelling in your hands or feet, rapid weight gain (especially if you have diabetes or heart problems); or unexplained muscle pain, tenderness, or weakness (especially if you also have fever or don't feel well). Pregabalin can cause life-threatening breathing problems. A person caring for you should seek emergency medical attention if you have slow breathing with long pauses, blue colored lips, or if you arehard to wake up. Breathing problems may be more likely in older adults or in people with COPD. If you have diabetes, tell your doctor right away if you have any new sores or other skin problems. Common side effects may include: dizziness, drowsiness; swelling in your hands and feet; trouble concentrating; increased appetite; weight gain; dry mouth; or blurred vision. This is not a complete list of side effects and others may occur. Call your doctor for medical advice about side effects. You may report side effects to FDA at 2-300-PPH-7388. What other drugs will affect pregabalin? Using pregabalin with other drugs that slow your breathing can cause dangerous side effects or . Ask your doctor before using opioid medication, a sleeping pill, cold or allergy medicine, a muscle relaxer, or medicine for anxiety or seizures. Tell your doctor about all your other medicines, especially: oral diabetes medicine--pioglitazone, rosiglitazone; or an RA inhibitor--benazepril, captopril, enalapril, fosinopril, lisinopril, moexipril, perindopril,quinapril, ramipril, or trandolapril. This list is not complete. Other drugs may affect pregabalin, including prescription and ayeh-ypf-oifotqo medicines, vitamins, and herbal products. Not all possible drug interactions are listed here. Where can I get more information? Your pharmacist can provide more information about pregabalin. Remember, keep this and all other medicines out of the reach of children, never share your medicines with others, and use this medication only for the indication prescribed. Every effort has been made to ensure that the information provided by [employer]. ('[employer]') is accurate, up-to-date, and complete, but no guarantee is made to that effect. Drug information contained herein may be time sensitive. [employer] information has been compiled for use by healthcare practitioners and consumers in the [place] and therefore [employer] does not warrant that uses outside of the [place] are appropriate, unless specifically indicated otherwise. [employer] drug information does not endorse drugs, diagnose patients or recommend therapy. [employer] drug information isan informational resource designed to assist licensed healthcare practitioners in caring for their p atients and/or to serve consumers viewing this service as a supplement to, and not a substitute for, the expertise, skill, knowledge and judgment of healthcare practitioners. The absence of a warningfor a given drug or drug combination in no way should be construed to indicate that the drug or drug combination is safe, effective or appropriate for any given patient. [employer] does not assume any responsibility for any aspect of healthcare administered with the aid of information [employer] provides. The information contained herein is not intended to cover all possible uses, directions, precautions, warnings, drug interactions, allergic reactions, or adverse effects. If you have questions about the drugs you are taking, check with your doctor, nurse or pharmacist. Copyright 7826-3354 [employer]. Version: 9.01. Revision Date: 09/24/2019. Education Materials Weakness Weakness is a lack of strength. You may feel weak all over your body (generalized), or you may feelweak in one part of your body (focal). There are many potential causes of weakness. Sometimes, the cause of your weakness may not be known. Some causes of weakness can be serious, so it is important to see your doctor. Follow these instructions at home: Activity Rest as needed. Try to get enough sleep. Most adults need 7 8 hours of sleep each night. Talk to your doctor about how much sleep you need each night. Do exercises, such as arm curls and leg raises, for 30 minutes at least 2 days a week or as told byyour doctor. Think about working with a physical therapist or hardware trainer to help you get stronger. General instructions Take gcfl-fot-inhenpf and prescription medicines only as told by your doctor. Eat a healthy, well-balanced diet. This includes: ? Proteins to build muscles, such as lean meats and fish. ? Fresh fruits and vegetables. ? Carbohydrates to boost energy, such as whole grains. Drink enough fluid to keep your pee (urine) pale yellow. Keep all follow-up visits as told by your doctor. This is important. Contact a doctor if: Your weakness does not get better or it gets worse. Your weakness affects your ability to: ? Think clearly. ? Do your normal daily activities. Get help right away if you: Have sudden weakness on one side of your face or body. Have chest pain. Have trouble breathing or shortness of breath. Have problems with your vision. Have trouble talking or swallowing. Have trouble standing or walking. Are light-headed. Pass out (lose consciousness). Summary Weakness is a lack of strength. You may feel weak all over your body or just in one part of your body. There are many potential causes of weakness. Sometimes, the cause of your weakness may not be known. Rest as needed, and try to get enough sleep. Most adults need 7 8 hours of sleep each night. Eat a healthy, well-balanced diet. This information is not intended to replace advice given to you by your health care provider. Make sure you discuss any questions you have with your health care provider. Document Released: 08/29/2009 Document Revised: 04/22/2019 Document Reviewed: 04/22/2019 [employer]elly[employer] Patient Education 2020 [employer] Additional Information VACCINATE! IT SAVES LIVES! Members of the community who have not yet received the COVID-19 vaccine and would like to receive it can visit one of [facility] vaccine clinics. There are many vaccine clinic locations within the [facility]. For locations and available times, please visit [email or web address] It is important to note that some COVID mobile vaccine clinics are held outdoors and may be canceled in rainy or stormy conditions. To learn more about pediatric vaccinations (ages 5-11), we invite you to visit the [facility] webpage. [email or web address] learn more about the COVID-19 vaccine, we invite you to visit the CDC website for a list of frequently asked questions.https://www.cdc.gov/coronavirus/2019-ncov/vaccines/faq.html [employer] Patient Portal Access Instructions: Stay connected with your healthcare team and access your personal medical information anytime with the [employer] Patient Portal. Please follow the directions below to create your [employer] account: 1.Access the email account you provided upon registration to the hospital/physician office.2.Look for an invitation email from [facility].3.Open the email and access the invitation link: AcceptInvitation to [employer].4.Fill in the required garcia to create your account. To access your account, visit [email or web address]. Click the blue button labeled "Access Patient Portal" and then log in with the username and password that you created in the steps above. You will be able to view your test results, lab results, a summary of your visits, upcoming appointments and more. There is also a convenient messaging option where you can send secure messages to your p rovider. In addition, you will have the ability to download any documents or summaries to your computer and/or send the information securely to a physician. Remember that your healthcare information is confidential, so carefully consider who you will allowto register on the [employer] Patient Portal for access to your information. You can also access the [employer] One[facility] Patient Portal on the [employer]where marisol. Simply click on "Patient Portal" and then log into your account. If you would like to receive a full copy of your medical records, please contact the [facility] Medical Records Department by calling [phone], Saturday through Saturday between 8 a.m. and 4:30 p.m. HOW TO SAFELY DISPOSE OF PRESCRIPTION MEDICATIONS Please use one of the following methods to safely dispose of your unused medications. 1.Use a drug disposal kit: the drug disposal pouch allows you to safely discard your old and unuseddrugs. Ask your nurse to give you one when you are discharged.2.Visit a local take-back location: Many local pharmacies and police departments have programs that collect old and unwanted prescriptiondrugs. Call your local pharmacy or go to [email or web address] to find one close to you.3.Make use of household items: Use cat litter or old coffee grounds to dispose medications if other options arenot available. Mix your drugs with these household products, seal them in an airtight container andthrow it into the garbage. Call [facility]: [phone] to be sure your drugs can be disposed of in this way. Some medicines may require a different approach.4.Never flush your medications down the toilet. IF YOU HAVE BEEN PRESCRIBED AN OPIOID FOR PAIN If you have been prescribed an opioid (such as hydrocodone, oxycodone or morphine), it is critical to understand the possible side effects and risks of opioid pain medications. Even when taken as directed, opioids can have several side effects including: Tolerance, meaning you might need to take more of a medication for the same pain relief. Nausea, vomiting and/or constipation. Sleepiness, dizziness, dry mouth, confusion, depression or itching. Physical dependence, meaning you have withdrawal symptoms when a medication is stopped, can develop within a few days. KNOW YOUR RESPONSIBILITIES It is important to know exactly how much and how often to take the opioid pain medications you are prescribed. Never take opioids in higher amounts or more often than prescribed. Do not combine opioids with alcohol or other drugs that cause drowsiness, such as benzodiazepines, also known as benzos, including diazepam and alprazolam, muscle relaxants or sleep aids. Never sell or share prescription opioids. This is illegal. Store opioids in a secure place and out of reach of others (including children, family, friends and visitors). The last page of this document has been signed and retained as a CHART COPY. Signatures Patient Education Materials Weakness, Phmy-wo-Utto Medication Leaflets pregabalin My discharge plan and instructions have been reviewed and explained to me and I,ROSETTE BURTON understand my current condition and have read and understand these discharge instructions. I have received a written copy of the plan/instructions. If I have questions, I am aware that I should contact my doctor. Patient/Guidance Consultant Signature: Date/Time: Relationship to Patient: Witness Name/Signature: Date/Time: [facility]03-02-2025 Note Date of Service 11/29/24 Chief Complaint Dehydration Subjective 79-year-old female with past medical history significant for HTN, anemia, cerebral palsy. Patient originally presented to [facility] on 10/30/2024 with progressively worsening low back pain and difficulty ambulating. Patient sustained a mechanical fall 2 weeks prior and then another 1 week after that where she landed on her buttocks. CT of her chest, abdomen, pelvis showed distended urinary bladder, loss of height of L3 and L5 vertebrae and anterolisthesis of L5 on S1. She was noted to have parainfluenza infection. White blood cell count was elevated at 22. Blood cultures positive for streptococcus alactolyticus. Infectious disease, Dr. Art was consulted. Patient was placed on broad-spectrum antibiotics. Colonoscopy was recommended. This was done by Dr. Kwan. This showed diffuse mild mucosal changes in the sigmoid colon, descending colon, at the hepatic flexure, in the ascending colon and in the cecum secondary to colitis. Notable for diverticulosis inthe rectosigmoid colon. Antibiotics were de-escalated to cefdinir with stop date of 11/15. MRI of the lumbar spine was done given bacteremia. Findings were consistent with moderate/severe spinal stenosis and severe bilateral foraminal narrowing with degenerative joint disease. Patient is due to follow-up as an outpatient with Dr. Hart, orthopedic spinal surgeon. Patient did have some urinary retention and briefly required Puentes catheter. She was initiated on Flomax with recommendations to follow-up with urology as an outpatient. She was evaluated by therapy services with recommendations for SNF. She was admitted to [facility] TCU on 11/12/2024. Patient was having very slow progress with therapy services as she had a failure to thrive. She wasnot eating or drinking much. She was found to be quite drowsy and minimally interactive. Labs were checked and sodium level was found to be 120 secondary to dehydration. She was started on IV fluids with improvement in sodium levels. Patient was experiencing hallucinations/delirium secondary to acute illness. She was hypotensive likely secondary to dehydration. Metoprolol was decreased. Once dehydration was resolved she started to develop tachycardia. Metoprolol has slowly been increased. She was taking metoprolol 50 mg twice daily at home. She was started on home dose of metoprolol 50 twice daily. Patient has a history of anemia and received Venofer 200 mg IV x 2. She has had chronic urinary retention since discharge from [facility]. She will need to follow-up with urology on an outpatient basis. Patient was evaluated by therapy with recommendation for SNF. Patient's progress was very slow in TCU. Urine was found to be quite concentrated with sediment. Urinalysis was positive for nitrates and leukocyte esterase as well as 4+ bacteria. She received Rocephin 2 g IV x 1. She also received IV fluids as urine was concentrated. Urine culture positive for Enterobacter cloacae complex. Patient switched to Cipro per sensitivity. Patient found to have extensive left lower extremity DVT, right popliteal DVT, segmental and subsegmental PE. She was initiated on apixaban. Overnight vital signs have remained stable with adequate oxygenation on room air. No tachycardia inthe past 24 hours. Patient states she has no leg pain today and states she feels better than she has since she has been here. No complaints otherwise. Objective Vitals and Measurements T: 36.3 C (Oral) TMIN: 36.3 C (Oral) TMAX: 37.0 C (Oral) HR: 76 RR: 18 BP: 96/54 SpO2: 98% WT: 66.2kg Intake and Output 7AM Yesterday to 7AM Today Intake and Output (Last 24 hours) Intake Oral Intake 1080.00 Supplement Intake 360.00 Output Urinary Catheter Output: 1500.00 Stool Count 0.00 Total Summary Total Intake 1440.00 Total Output 1500.00 Fluid Balance -60.00 Physical Exam GEN: Chronically ill CHEST: Normal S1 and S2. Rhythm is regular. Clear to auscultation, without rales, rhonchi, wheezing. ABD: Positive bowel sounds x 4 quads. Soft, nondistended, nontender. : Urine in puentes clear yellow EXT: Chronic internal rotation of RLE. Peripheral pulses intact. BLE edema improved. No phlegmasia NEURO: Sensation grossly intact SKIN: Skin color normal PSYCH: The mental examination revealed the patient was alert and oriented x 3, mentation improved today. Weight Current Weight Dosing Weight: 61.3 kg (11/21/24) Current Weight: 66.2 kg (11/29/24) Current Weight: 61.2 kg (11/28/24) Medications Medications (23) Active Scheduled: (12) acetaminophen 500 mg Tablet 1,000 mg 2 tab(s), Oral, TID apixaban 5 mg tablet 5 mg 1 tab(s), Oral, BID apixaban 5 mg tablet 10 mg 2 tab(s), Oral, BID cholecalciferol 25 mcg tablet (Vit D3 1000 units) 25 mcg 1 tab(s), Oral, Daily ciprofloxacin 500 mg Tablet 500 mg 1 tab(s), Oral, q12h docusate-senna (Senokot S) 50 mg-8.6 mg Tablet 1 tab(s), Oral, BID ferrous sulfate 325 mg Tablet 325 mg 1 tab(s), Oral, BID metoprolol tartrate 50 mg tablet 50 mg 1 tab(s), Oral, BIDM ocular lubricant preserved Soln 15 mL 2 drop(s), Eyes, both, TID pregabalin 50 mg capsule 50 mg 1 cap(s), Oral, TID risperiDONE 1 mg tablet 0.5 mg 0.5 tab(s), Oral, qHS tamsulosin 0.4 mg Capsule 0.4 mg 1 cap(s), Oral, qDay Continuous: (0) PRN: (11) acetaminophen 325 mg Tablet 650 mg 2 tab(s), Oral, q4h acetaminophen 325 mg Tablet 650 mg 2 tab(s), Oral, q4h albuterol - ipratropium 2.5 mg-0.5 mg/3 mL Inhal Tosin UD 3 mL, Inhalation, q4hRT benzonatate 100 mg Capsule 100 mg 1 cap(s), Oral, TID calcium carbonate 500 mg Chewable 500 mg 1 tab(s), Chewed, TID emollients (Desitin) 1 marisol, Topical, AsDirected guaifenesin 100 mg/5 mL Liquid 120 mL 200 mg 10 mL, Oral, q4h melatonin 3 mg tablet 6 mg 2 tab(s), Oral, qHS metoprolol 1 mg/mL (5mL) vial 2.5 mg 2.5 mL, IV Push, q6hr ondansetron 2 mg/ 1 mL 2 mL INJ 4 mg 2 mL, IV Push, q4h polyethylene glycol 3350 - UD packet 17 gram(s) 15 mL, Oral, qDay Lab Results 11/28 05:11 WBC: 9.9 Hgb: 9.8 L Hct: 29.0 L Platelet: 284 Neutrophil %: 65.[address] CT Angiography Chest w/ Contrast Result Date: November 27, 2024 Verified By: NONI OCHOA MD CLINICAL STATEMENT: IMPRESSION: 1. Small segmental and subsegmental right lower lobe pulmonary emboli. Noevidence for right heart strain.2. Small left pleural effusion. Small areas of basilar atelectasis.3. Small areas of ground-glass infiltrates at the lower lobes, presumablysmall airways infectious or inflammatory. EKG EKG [AO] - Completed -- 11/24/24 20:21:00 EST Assessment/Plan 1. Hyponatremia 2. Weakness 3. Dehydration 4. Anemia 5. Tachycardia 6. Bacteriuria 7. DVT of lower extremity, bilateral 8. Pulmonary embolus Orders: Hyponatremia Resolved Weakness continue PT and OT. Awaiting [facility] approval for SNF Dehydration Resolved. Patient is to be supervised for all meals to ensure she is eating and drinking adequately. She needs a great deal of encouragement. Requesting that nursing provide her with 240 mL of water 4 times per day in between meals. Anemia Stable Tachycardia-intermittent. Improved over the last 24 hours. Patient has been on home dose of metoprolol 50 twice daily. Dehydration has resolved. She has good urine output. Urine is clear and yellow. Stat CTA chest done due to persistent tachycardia. This showed small segmental and subsegmental right lower lobe PE with no heart strain. Small left pleural effusion. Small areas of groundglass infiltrates at the lower lobes. Dopplers done to BLE showing right popliteal DVT and extensive left DVT. UTI urine positive for nitrates and leukocyte esterase as well as 4+ bacteria. Mild leukocytosis today. Urine concentrated with sediment. Urine culture growing Enterobacter cloacae complex. Sensitivity completed. Patient switched to Cipro 500 mg p.o. twice daily x 7 days. Stop date 12/04/24 at 2100. DVT/PE- Right popliteal vein, left external iliac vein, left common femoral vein, left femoral vein, left deep femoral vein, left great saphenous vein to mid thigh. Discussed with , vascular surgeon via secure messaging. Patient has good pulses, 3+ edema, no phlegmasia. He recommends DOAC and outpatient follow-up. Eliquis 10 mg p.o. twice daily x 7 days(until 12/03 at 2100) and then 5 mg twice daily thereafter(start 12/04 at 0800). DVT prophylaxis:SCD's Code Status:Full Code Plan of care discussed with patient. All questions answered. Patient verbalizes understanding is agreeable to plan of care. This dictation was performed using voice recognition software and may include grammatical and/or spelling errors. Anticipated Date of Discharge Medically optimized for discharge. Awaiting [facility] approval Time Spent 38 minutes Digitally Signed by MANAN VACA on 11/29/2024 01:00 PM [facility]03-01-2025 Note Date of Service 11/21/2024 Chief Complaint weakness History of Present Illness Patient is a 79-year-old female, who has no recorded primary care provider and a past medical history significant for cerebral palsy, hypertension and anemia, presented to [facility] transitional care program for ongoing therapy following an admission at [facility]. Patient presented to [facility] on 10/30 due to worsening low back pain and difficulty ambulating. She was evaluated while admitted there (see swing H&P for further details) and discharged to [facility]CU on 11/11/2024 on Cefdinir for bacteremia. Patient has been progressing very slowly with therapy while here and has reportedly been very weak and tearful in the last several days. This morning labs were checked to make sure there is no underlying medical problem contributing to her weakness. Her sodium was found to 120 this morning. Patient was immediately discharged to inpatient status to start IV fluids and further work her up. Per nursing, patient has had a very poor intake of food or fluids much of the time that she has been here for TCU. Her hyponatremia was likely caused by dehydration. We will check urine osmolality, serum osmolality and urine sodium levels. We will check BMP every 6 hours.If sodium should drop lower, she will likely need to be transferred to a tertiary care facility. Patient seen and evaluated this morning while resting in bed. She awakens to name and denies any issues this morning other than pain in her left foot which is not new for her. Explained to patient that her sodium level was very low and that we need to give her IV fluids and try to determine why it is so low. She is agreeable to transitioning to inpatient status. Nursing reports that patient had to be straight cathed overnight due to low output. Patient had 1 liter of urine out. Will contact patient's sister to discuss the above. Patient denies any fever, chills, cough, shortness of breath, chest pain, abdominal pain, nausea or dysuria. All questions answered. Review of Systems Review of Systems: Reviewed in detail, including general health, HEENT, cardiovascular, respiratory, gastrointestinal, genitourinary, endocrine, musculoskeletal, neurologic, vascular, skin, and psychiatric. All are negative except for those listed in the History of Present Illness. Physical Exam Vitals and Measurements T: 36.5 C (Oral) HR: 85 RR: 18 BP: 94/46 SpO2: 98% HT: 170.2 cm WT: 61.3 kg BMI: 21.16 Weight Dosing Weight: 61.3 kg (11/21/24) General: No acute distress. Patient is alert, chronically ill-appearing. Skin: No rash. Skin is warm, dry and intact. HEENT: Head is normocephalic, atraumatic. Pupils are equal, round and reactive. Neck: Supple. No lymphadenopathy, thyromegaly. Lungs: Bilaterally clear but diminished without crepitation or wheeze. Unlabored. Heart: Heart is regular rhythm, S1, S2. No murmurs, gallops or rubs. Abdomen: Abdomen is soft, nontender. Bowels sounds present in all quadrants. Extremities: No clubbing, cyanosis, or edema. Peripheral pulses palpable. No calf tenderness. Neurological: Patient is awake and alert to person, place at times. Following simple commands, moving all extremities. Lab Results No 36 Hour Lab Data Assessment/Plan 1. Hyponatremia Acute, new onset, likely secondary to very poor intake. Nursing reports that patient has been drinking her Ensure but not much else. Sodium 120 this morning. Will start NS @ 75cc/hr x 24 hours. CheckBMP q6 hours x 24 hours. If sodium drops lower, she will likely need to transfer to tertiary care facility for nephrology consult. 2. Dehydration Acute, new onset, secondary to poor intake. Plan as above. 3. Hyperkalemia Acute, new onset. Will discontinue potassium supplement. 4. Anemia Chronic. Hemoglobin 10.6 this am. Continue to monitor CBC. 5. Weakness Acute on chronic. Will consult PT and OT on Saturday in anticipation that sodium will be improved. DVT prophylaxis with heparin sc. Code status: Full Code. Labs, diagnostic test and progress notes reviewed as noted in HPI. Plan of care discussed with patient. All questions answered. Patient verbalizes understanding and is agreeable with plan of care. This case was discussed with collaborating physician, Dr. Autumn Holm. 77 minutes spent reviewing past diagnostic tests, reviewing lab results, vital sign trends, medicalhistory, reviewing medications and ordering home medications, examining patient, discussed plan of care with care team, collaborating with physician, and documenting in chart. Procedure/Surgical History Hysterectomy Hip replacement Tonsillectomy Medications Home Medications (14) Active amLODIPine 5 mg oral tablet 5 mg = 1 tab(s), Oral, qDay flax seed oil 1000 mg oral capsule 1,000 mg = 1 cap(s), Oral, Daily garlic oral capsule 200 mg, Oral, Daily glucosamine 500 mg oral capsule 500 mg = 1 cap(s), Oral, qDay lisinopril 20 mg oral tablet 20 mg = 1 tab(s), Oral, qDay Lyrica 50 mg oral capsule 50 mg = 1 cap(s), Oral, TID metoprolol succinate 50 mg oral TABLET extended release 50 mg = 1 tab(s), Oral, qDay nystatin 100,000 units/mL oral suspension 500,000 unit(s) = 5 mL, Oral, QID polyethylene glycol 3350 17 gram(s), Oral, qDay Potassium Chloride (Eqv-K-Tab) 20 mEq oral tablet, extended release 20 mEq = 1 tab(s), Oral, qDay risperiDONE 0.5 mg oral tablet 0.5 mg = 1 tab(s), Oral, qHS senna (sennosides) 8.6 mg oral tablet 8.6 mg = 1 tab(s), Oral, BID tamsulosin 0.4 mg oral capsule 0.4 mg = 1 cap(s), qDay Vitamin D3 25 mcg = 1 tab(s), Oral, Daily Allergies Augmentin(Severe) amantadine(Severe) amoxicillin(Severe) erythromycin base(Severe) LORazepam Restlessness Social History Alcohol Use: Never., 11/11/2024 Home/Environment Living situation: Home/Independent., 11/11/2024 Nutrition/Health Caffeine intake amount: 3 cups of coffee a day. Eating Difficulties Swallowing., 11/11/2024 Substance Abuse Use: Never., 11/11/2024 Tobacco Nicotine Use: Never (less than 100 in lifetime)., 11/11/2024 Family History Alzheimer's disease: Mother. Diabetes: Father. Hypertension: Father. Osteoporosis: Mother. Health Status Family Member(s) Immunizations SARS-CoV-2 mRNA (tozinameran) vaccine: 0.3 unknown unit (07/26/21) SARS-CoV-2 mRNA (tozinameran) vaccine: 30 unknown unit (12/27/20) SARS-CoV-2 mRNA (tozinameran) vaccine: 30 unknown unit (12/05/20) Code Status Code Status - Ordered -- 11/21/24 9:54:00 EST, Full Code, Constant Order Digitally Signed by CHRISSIE HERNANDEZ on 11/21/2024 12:02 PM [place] [id number] Note Date of Service 11/28/2024 Chief Complaint Hyponatremia Subjective 79-year-old female with past medical history significant for HTN, anemia, cerebral palsy. Patient originally presented to [facility] on 10/30/2024 with progressively worsening low back pain and difficulty ambulating. Patient sustained a mechanical fall 2 weeks prior and then another 1 week after that where she landed on her buttocks. CT of her chest, abdomen, pelvis showed distended urinary bladder, loss of height of L3 and L5 vertebrae and anterolisthesis of L5 on S1. She was noted to have parainfluenza infection. White blood cell count was elevated at 22. Blood cultures positive for streptococcus alactolyticus. Infectious disease, Dr. Art was consulted. Patient was placed on broad-spectrum antibiotics. Colonoscopy was recommended. This was done by Dr. Kwan. This showed diffuse mild mucosal changes in the sigmoid colon, descending colon, at the hepatic flexure, in the ascending colon and in the cecum secondary to colitis. Notable for diverticulosis inthe rectosigmoid colon. Antibiotics were de-escalated to cefdinir with stop date of 11/15. MRI of the lumbar spine was done given bacteremia. Findings were consistent with moderate/severe spinal stenosis and severe bilateral foraminal narrowing with degenerative joint disease. Patient is due to follow-up as an outpatient with Dr. Hart, orthopedic spinal surgeon. Patient did have some urinary retention and briefly required Puentes catheter. She was initiated on Flomax with recommendations to follow-up with urology as an outpatient. She was evaluated by therapy services with recommendations for SNF. She was admitted to [facility] TCU on 11/12/2024. Patient was having very slow progress with therapy services as she had a failure to thrive. She wasnot eating or drinking much. She was found to be quite drowsy and minimally interactive. Labs were checked and sodium level was found to be 120 secondary to dehydration. She was started on IV fluids with improvement in sodium levels. Patient was experiencing hallucinations/delirium secondary to acute illness. She was hypotensive likely secondary to dehydration. Metoprolol was decreased. Once dehydration was resolved she started to develop tachycardia. Metoprolol has slowly been increased. She was taking metoprolol 50 mg twice daily at home. She was started on home dose of metoprolol 50 twice daily. Patient has a history of anemia and received Venofer 200 mg IV x 2. She has had chronic urinary retention since discharge from [facility]. She will need to follow-up with urology on an outpatient basis. Patient was evaluated by therapy with recommendation for SNF. Patient's progress was very slow in TCU. Urine was found to be quite concentrated with sediment. Urinalysis was positive for nitrates and leukocyte esterase as well as 4+ bacteria. She received Rocephin 2 g IV x 1. She also received IV fluids as urine was concentrated. Urine culture positive for Enterobacter cloacae complex. Patient switched to Cipro per sensitivity. Patient found to have extensive left lower extremity DVT, right popliteal DVT, segmental and subsegmental PE. She was initiated on apixaban. Overnight vital signs have remained stable with adequate oxygenation on room air. No tachycardia inthe past 24 hours. Patient continues to complain of right leg pain. Lyrica was increased to 50 mg 3times daily. Objective Vitals and Measurements T: 36.5 C (Oral) TMIN: 36.5 C (Oral) TMAX: 36.9 C (Oral) HR: 73 RR: 18 BP: 99/47 SpO2: 97% WT: 61.2kg Intake and Output 7AM Yesterday to 7AM Today Intake and Output (Last 24 hours) Intake Oral Intake 1180.00 Supplement Intake 240.00 Output Urinary Catheter Output: 1700.00 Total Summary Total Intake 1420.00 Total Output 1700.00 Fluid Balance -280.00 Physical Exam GEN: Chronically ill CHEST: Normal S1 and S2. Rhythm is regular. Clear to auscultation, without rales, rhonchi, wheezing. ABD: Positive bowel sounds x 4 quads. Soft, nondistended, nontender. : Urine in puentes clear yellow EXT: Chronic internal rotation of RLE. Peripheral pulses intact. BLE edema improved. No phlegmasia NEURO: Sensation grossly intact SKIN: Skin color normal PSYCH: The mental examination revealed the patient was alert and oriented x 3, forgetful Weight Current Weight Dosing Weight: 61.3 kg (11/21/24) Current Weight: 61.2 kg (11/28/24) Current Weight: 68.8 kg (11/27/24) Medications Medications (23) Active Scheduled: (12) acetaminophen 500 mg Tablet 1,000 mg 2 tab(s), Oral, TID apixaban 5 mg tablet 10 mg 2 tab(s), Oral, BID apixaban 5 mg tablet 5 mg 1 tab(s), Oral, BID cholecalciferol 25 mcg tablet (Vit D3 1000 units) 25 mcg 1 tab(s), Oral, Daily ciprofloxacin 500 mg Tablet 500 mg 1 tab(s), Oral, q12h docusate-senna (Senokot S) 50 mg-8.6 mg Tablet 1 tab(s), Oral, BID ferrous sulfate 325 mg Tablet 325 mg 1 tab(s), Oral, BID metoprolol tartrate 50 mg tablet 50 mg 1 tab(s), Oral, BIDM ocular lubricant preserved Soln 15 mL 2 drop(s), Eyes, both, TID pregabalin 50 mg capsule 50 mg 1 cap(s), Oral, TID risperiDONE 1 mg tablet 0.5 mg 0.5 tab(s), Oral, qHS tamsulosin 0.4 mg Capsule 0.4 mg 1 cap(s), Oral, qDay Continuous: (0) PRN: (11) acetaminophen 325 mg Tablet 650 mg 2 tab(s), Oral, q4h acetaminophen 325 mg Tablet 650 mg 2 tab(s), Oral, q4h albuterol - ipratropium 2.5 mg-0.5 mg/3 mL Inhal Tosin UD 3 mL, Inhalation, q4hRT benzonatate 100 mg Capsule 100 mg 1 cap(s), Oral, TID calcium carbonate 500 mg Chewable 500 mg 1 tab(s), Chewed, TID emollients (Desitin) 1 marisol, Topical, AsDirected guaifenesin 100 mg/5 mL Liquid 120 mL 200 mg 10 mL, Oral, q4h melatonin 3 mg tablet 6 mg 2 tab(s), Oral, qHS metoprolol 1 mg/mL (5mL) vial 2.5 mg 2.5 mL, IV Push, q6hr ondansetron 2 mg/ 1 mL 2 mL INJ 4 mg 2 mL, IV Push, q4h polyethylene glycol 3350 - UD packet 17 gram(s) 15 mL, Oral, qDay Lab Results 11/28 05:11 WBC: 9.9 Hgb: 9.8 L Hct: 29.0 L Platelet: 284 Neutrophil %: 65.7 11/27 06:04 WBC: 10.4 Hgb: 9.7 L Hct: 29.0 L Platelet: 254 Neutrophil %: 67.6 Glucose Level: 93 Sodium Level: 141 Potassium Level: 4.6 BUN: 16 Creatinine Lvl (s): 0.52 L Imaging Results and Diagnostics CT Angiography Chest w/ Contrast Result Date: November 27, 2024 Verified By: NONI OCHAO MD CLINICAL STATEMENT: IMPRESSION: 1. Small segmental and subsegmental right lower lobe pulmonary emboli. Noevidence for right heart strain.2. Small left pleural effusion. Small areas of basilar atelectasis.3. Small areas of ground-glass infiltrates at the lower lobes, presumablysmall airways infectious or inflammatory. Assessment/Plan 1. Hyponatremia 2. Weakness 3. Dehydration 4. Anemia 5. Tachycardia 6. Bacteriuria 7. DVT of lower extremity, bilateral 8. Pulmonary embolus Hyponatremia Resolved Weakness continue PT and OT. Awaiting [facility] approval for SNF Dehydration Patient is to be supervised for all meals to ensure she is eating and drinking adequately. She needs a great deal of encouragement. Requesting that nursing provide her with 240 mL of water 4 times per day in between meals. Anemia Stable Tachycardia-intermittent. Improved over the last 24 hours. Patient has been on home dose of metoprolol 50 twice daily. Dehydration has resolved. She has good urine output. Urine is clear and yellow. Stat CTA chest done due to persistent tachycardia. This showed small segmental and subsegmental right lower lobe PE with no heart strain. Small left pleural effusion. Small areas of groundglass infiltrates at the lower lobes. Dopplers done to BLE showing right popliteal DVT and extensive left DVT. UTI urine positive for nitrates and leukocyte esterase as well as 4+ bacteria. Mild leukocytosis today. Urine concentrated with sediment. Urine culture growing Enterobacter cloacae complex. Sensitivity completed. patient will be switched to Cipro 500 mg p.o. twice daily x 7 days. DVT/PE- Right popliteal vein, left external iliac vein, left common femoral vein, left femoral vein, left deep femoral vein, left great saphenous vein to mid thigh. Discussed with , vascular surgeon via secure messaging. Patient has good pulses, 3+ edema, no phlegmasia. He recommends DOAC and outpatient follow-up. Eliquis 10 mg p.o. twice daily x 7 days and then 5 mg twice daily thereafter. DVT prophylaxis:SCD's Code Status:Full Code Plan of care discussed with patient. All questions answered. Patient verbalizes understanding is agreeable to plan of care. This dictation was performed using voice recognition software and may include grammatical and/or spelling errors. Anticipated Date of Discharge Patient is medically optimized for discharge. Awaiting [facility] approval Time Spent 42 minutes Digitally Signed by MANAN VACA on 11/28/2024 12:31 PM [facility]03-01-2025 Note. MICRO - Microbiology PROCEDURE: Urine Culture [O1 *1] SOURCE: Urine, Puentes Catheter BODY SITE: COLLECTED DATE/TIME: 11/26/2024 10:58 EST RECEIVED DATE/TIME: 11/26/2024 16:47 EST START DATE/TIME: 11/26/2024 16:47 EST FREE TEXT SOURCE: FINAL REPORTS Final Report [] Verified Date/Time/Personnel: 11/28/2024 08:24 EST >100,000 cfu/ml Enterobacter cloacae complex PRELIMINARY REPORTS Preliminary Report [] Verified Date/Time/Personnel: 11/27/2024 11:13 EST >100,000 cfu/ml Enterobacter cloacae complex RHEA to follow Preliminary Report [] Verified Date/Time/Personnel: 11/26/2024 17:59 EST Specimen received in lab. SUSCEPTIBILITY RESULTS Enterobacter cloacae complex Antibiotic RHEA Dilut RHEA Inter Ampicillin >16 Resistant Ampicillin/ >16/8 Resistant Sulbactam Aztreonam >16 Resistant Cefazolin >16 Resistant Ceftriaxone >32 Resistant Cefuroxime >16 Resistant Ciprofloxacin <=0.25 Susceptible Ertapenem <=0.5 Susceptible Gentamicin <=2 Susceptible ID Panel Not Not Applicable Applicable Imipenem <=1 Susceptible Levofloxacin <=0.5 Susceptible Meropenem <=1 Susceptible Minocycline <=4 Susceptible Nitrofurantoin 64 Intermediate Piperacillin/ >64 Resistant Tazobactam Trimethoprim/ <=0.5/9.5 Susceptible Sulfa Order Comments O1: Urine Culture Added by Discern Performing Locations *1: This test was performed at: [facility], [address] [place] [address], [address] [place], [place] [id number] Nurse Progress note Pt scheduled for IV ATB at 6 am, pts specific dose was not available in our omnicell ( pt required 1 gm, only 2gm available) . I did call pharmacy at main campus for confirmation of reconstitution instructions/dosing and the pharmacist did not feel I would be able get the proper dose by attempting prepare on my own and suggested it be retimed an to speak to our pharmacist as soon as they are available. Digitally Signed by Vee Marie LPN on 11/28/2024 05:43 AM [facility]02-28-2025 Note Date of Service 11/27/2024 Chief Complaint Hyponatremia Subjective 79-year-old female with past medical history significant for HTN, anemia, cerebral palsy. Patient originally presented to [facility] on 10/30/2024 with progressively worsening low back pain and difficulty ambulating. Patient sustained a mechanical fall 2 weeks prior and then another 1 week after that where she landed on her buttocks. CT of her chest, abdomen, pelvis showed distended urinary bladder, loss of height of L3 and L5 vertebrae and anterolisthesis of L5 on S1. She was noted to have parainfluenza infection. White blood cell count was elevated at 22. Blood cultures positive for streptococcus alactolyticus. Infectious disease, Dr. Art was consulted. Patient was placed on broad-spectrum antibiotics. Colonoscopy was recommended. This was done by Dr. Kwan. This showed diffuse mild mucosal changes in the sigmoid colon, descending colon, at the hepatic flexure, in the ascending colon and in the cecum secondary to colitis. Notable for diverticulosis inthe rectosigmoid colon. Antibiotics were de-escalated to cefdinir with stop date of 11/15. MRI of the lumbar spine was done given bacteremia. Findings were consistent with moderate/severe spinal stenosis and severe bilateral foraminal narrowing with degenerative joint disease. Patient is due to follow-up as an outpatient with Dr. Hart, orthopedic spinal surgeon. Patient did have some urinary retention and briefly required Puentes catheter. She was initiated on Flomax with recommendations to follow-up with urology as an outpatient. She was evaluated by therapy services with recommendations for SNF. [facility]. Patient was having very slow progress with therapy services as she had a failure to thrive. She wasnot eating or drinking much. She was found to be quite drowsy and minimally interactive. Labs were checked and sodium level was found to be 120 secondary to dehydration. She was started on IV fluids with improvement in sodium levels. Patient was experiencing hallucinations/delirium secondary to acute illness. She was hypotensive likely secondary to dehydration. Metoprolol was decreased. Once dehydration was resolved she started to develop tachycardia. Metoprolol has slowly been increased. She was taking metoprolol 50 mg twice daily at home. She was started on home dose of metoprolol 50 twice daily. Patient has a history of anemia and received Venofer 200 mg IV x 2. She has had chronic urinary retention since discharge from [facility]. She will need to follow-up with urology on an outpatient basis. Patient was evaluated by therapy with recommendation for SNF. Patient's progress was very slow in TCU. Urine was found to be quite concentrated with sediment. Urinalysis was positive for nitrates and leukocyte esterase as well as 4+ bacteria. She received Rocephin 2 g IV x 1. She also received IV fluids as urine was concentrated. Order for patient to be supervised for meals to ensure she is eating and drinking. 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 She developed increasing edema to BLE, left greater than right as well as continued pain. Blood pressure has been stable and she has had adequate oxygenation on room air. No leukocytosis. BMP unremarkable. TSH and free T4 within normal limits. Objective Vitals and Measurements T: 36.4 C (Oral) TMIN: 36.4 C (Oral) TMAX: 37.2 C (Oral) HR: 105 (Apical) RR: 18 BP: 121/62 SpO2: 98% WT: 68.8 kg Intake and Output 7AM Yesterday to 7AM Today Intake and Output (Last 24 hours) Intake Oral Intake 940.00 Supplement Intake 480.00 Output Urinary Catheter Output: 1200.00 Stool Count 1.00 Total Summary Total Intake 1420.00 Total Output 1200.00 Fluid Balance 220.00 Physical Exam GEN: Apears tremulous. CHEST: Normal S1 and S2. Rhythm is regular. Clear to auscultation, without rales, rhonchi, wheezing. ABD: Positive bowel sounds x 4 quads. Soft, nondistended, nontender. : Urine in puentes clear yellow EXT: Chronic internal rotation of RLE. Peripheral pulses intact. 3+ edema LLE, 2+ RLE. No phlegmasia NEURO: Sensation grossly intact SKIN: Skin color normal PSYCH: The mental examination revealed the patient was alert and oriented x 3, forgetful Weight Current Weight Dosing Weight: 61.3 kg (11/21/24) Current Weight: 68.8 kg (11/27/24) Current Weight: 64.9 kg (11/26/24) Medications Medications (23) Active Scheduled: (12) acetaminophen 500 mg Tablet 1,000 mg 2 tab(s), Oral, TID apixaban 5 mg tablet 10 mg 2 tab(s), Oral, BID apixaban 5 mg tablet 5 mg 1 tab(s), Oral, BID cefTRIAXone 1 gram(s), IV Piggyback, qDay cholecalciferol 25 mcg tablet (Vit D3 1000 units) 25 mcg 1 tab(s), Oral, Daily docusate-senna (Senokot S) 50 mg-8.6 mg Tablet 1 tab(s), Oral, BID ferrous sulfate 325 mg Tablet 325 mg 1 tab(s), Oral, BID metoprolol tartrate 50 mg tablet 50 mg 1 tab(s), Oral, BIDM ocular lubricant preserved Soln 15 mL 2 drop(s), Eyes, both, TID pregabalin 50 mg capsule 50 mg 1 cap(s), Oral, TID risperiDONE 1 mg tablet 0.5 mg 0.5 tab(s), Oral, qHS tamsulosin 0.4 mg Capsule 0.4 mg 1 cap(s), Oral, qDay Continuous: (0) PRN: (11) acetaminophen 325 mg Tablet 650 mg 2 tab(s), Oral, q4h acetaminophen 325 mg Tablet 650 mg 2 tab(s), Oral, q4h albuterol - ipratropium 2.5 mg-0.5 mg/3 mL Inhal Tosin UD 3 mL, Inhalation, q4hRT benzonatate 100 mg Capsule 100 mg 1 cap(s), Oral, TID calcium carbonate 500 mg Chewable 500 mg 1 tab(s), Chewed, TID emollients (Desitin) 1 marisol, Topical, AsDirected guaifenesin 100 mg/5 mL Liquid 120 mL 200 mg 10 mL, Oral, q4h melatonin 3 mg tablet 6 mg 2 tab(s), Oral, qHS metoprolol 1 mg/mL (5mL) vial 2.5 mg 2.5 mL, IV Push, q6hr ondansetron 2 mg/ 1 mL 2 mL INJ 4 mg 2 mL, IV Push, q4h polyethylene glycol 3350 - UD packet 17 gram(s) 15 mL, Oral, qDay Lab Results 11/27 06:04 WBC: 10.4 Hgb: 9.7 L Hct: 29.0 L Platelet: 254 Neutrophil %: 67.6 Glucose Level: 93 Sodium Level: 141 Potassium Level: 4.6 BUN: 16 Creatinine Lvl (s): 0.52 L 11/26 05:54 WBC: 11.2 H Hgb: 9.8 L Hct: 28.9 L Platelet: 273 Glucose Level: 114 H Sodium Level: 138 Potassium Level: 4.1 BUN: 21 H Creatinine Lvl (s): 0.54 L Imaging Results and Diagnostics CT Angiography Chest w/ Contrast Result Date: November 27, 2024 Verified By: NONI OCHOA MD CLINICAL STATEMENT: IMPRESSION: 1. Small segmental and subsegmental right lower lobe pulmonary emboli. Noevidence for right heart strain.2. Small left pleural effusion. Small areas of basilar atelectasis.3. Small areas of ground-glass infiltrates at the lower lobes, presumablysmall airways infectious or inflammatory. Assessment/Plan 1. Hyponatremia 2. Weakness 3. Dehydration 4. Anemia 5. Tachycardia 6. Bacteriuria 7. DVT of lower extremity, bilateral 8. Pulmonary embolus Hyponatremia Resolved Weakness continue PT and OT. Awaiting pre-[facility]ERT Dehydration Patient is to be supervised for all meals to ensure she is eating and drinking adequately. She needs a great deal of encouragement. Requesting that nursing provide her with 240 mL of water 4 times per day in between meals. Anemia Stable Tachycardia-intermittent. Patient has been on home dose of metoprolol 50 twice daily for 24 hours. Dehydration has resolved. She has good urine output. Urine is clear and yellow. Stat CTA chest done due to persistent tachycardia. This showed small segmental and subsegmental right lower lobe PE withno heart strain. Small left pleural effusion. Small areas of groundglass infiltrates at the lower lobes. Dopplers done to BLE showing right popliteal DVT and extensive left DVT. UTI urine positive for nitrates and leukocyte esterase as well as 4+ bacteria. Mild leukocytosis today. Urine concentrated with sediment. Urine culture growing Enterobacter cloacae complex. Discontinue ceftriaxone and start cefepime 1 g IV twice daily. Sensitivity pending. DVT/PE- Right popliteal vein, left external iliac vein, left common femoral vein, left femoral vein, left deep femoral vein, left great saphenous vein to mid thigh. Discussed with , vascular surgeon via secure messaging. Patient has good pulses, 3+ edema, no phlegmasia. He recommends DOAC and outpatient follow-up. Start Eliquis 10 mg p.o. twice daily x 7 days and then 5 mg twice daily thereafter. Attempted phone call to Kadi at [phone], no answer. Called [facility] [phone] updated on current condition. All questions answered. DVT prophylaxis:SCD's Code Status:Full Code Plan of care discussed with patient. All questions answered. Patient verbalizes understanding is agreeable to plan of care. This dictation was performed using voice recognition software and may include grammatical and/or spelling errors. Anticipated Date of Discharge 24 to 48 hours Time Spent 56 minutes Digitally Signed by MANAN VACA on 11/27/2024 03:45 PM [facility]02-28-2025 Note. MICRO - Microbiology PROCEDURE: Blood Culture (bacterial) [*1] SOURCE: Blood BODY SITE: COLLECTED DATE/TIME: 11/22/2024 00:57 EST RECEIVED DATE/TIME: 11/22/2024 12:01 EST START DATE/TIME: 11/22/2024 12:02 EST FREE TEXT SOURCE: FINAL REPORTS Final Report [] Verified Date/Time/Personnel: 11/27/2024 12:59 EST Blood Culture: No Growth at 5 days. PRELIMINARY REPORTS Preliminary Report [] Verified Date/Time/Personnel: 11/22/2024 12:59 EST Culture has been received in lab and is no growth to date. Routine cultures are held for 5 days. Performing Locations *1: This test was performed at: [facility], [address] [place] [address], [address] [place], [place] [id number] Note. MICRO - Microbiology PROCEDURE: Blood Culture (bacterial) [*1] SOURCE: Blood BODY SITE: COLLECTED DATE/TIME: 11/22/2024 00:57 EST RECEIVED DATE/TIME: 11/22/2024 12:01 EST START DATE/TIME: 11/22/2024 12:02 EST FREE TEXT SOURCE: FINAL REPORTS Final Report [] Verified Date/Time/Personnel: 11/27/2024 12:59 EST Blood Culture: No Growth at 5 days. PRELIMINARY REPORTS Preliminary Report [] Verified Date/Time/Personnel: 11/22/2024 12:59 EST Culture has been received in lab and is no growth to date. Routine cultures are held for 5 days. Performing Locations *1: This test was performed at: [facility], [address] [place] [address], [id number] , [facility]02-28-2025 Note* Exam Date Time Procedure Performing Provider Status 11/27/24 12:36 PM VL Venous US/Doppler Both Legs(for DVT) NONI LUNA MD; Auth (Verified) [facility]02-28-2025 Note* Exam Date Time Procedure Performing Provider Status 11/27/24 10:[address] Angiography Chest w/ Contrast NONI VANG MD; Auth (Verified) [id number] ORIGINAL EXAMINATION: CTA OF THE CHEST 11/27/2024 10:20 am TECHNIQUE: CTA of the chest was performed after the administration of intravenous contrast. Multiplanar reformatted images are provided for review. MIP images are provided for review. Automated exposure control, iterative reconstruction, and/or weight based adjustment of the mA/kV was utilized to reduce the radiation dose to as low as reasonably achievable. COMPARISON: None. HISTORY: ORDERING SYSTEM PROVIDED HISTORY: Reason for Exam: Tachycardia, dyspnea FINDINGS: Minor degenerative changes are noted in the spine. No acute osseous abnormality identified. Mild bilateral lower lobe bronchiectasis is visible. A small left pleural effusion is present, and there are small areas of atelectasis at the posterior lower lobes bilaterally. Minimal ground-glass infiltrates are present at both lower lobes as well. No mediastinal adenopathy is evident. A small pericardial effusion is evident. Small right-sided pulmonary emboli are visible. These are seen in right lower lobe segmental branches and at a subsegmental right lower lobe branch. No other pulmonary artery defect is identified. There are no indicators of right heart strain. No additional contributory finding. IMPRESSION: 1. Small segmental and subsegmental right lower lobe pulmonary emboli. No evidence for right heart strain. 2. Small left pleural effusion. Small areas of basilar atelectasis. 3. Small areas of ground-glass infiltrates at the lower lobes, presumably small airways infectious or inflammatory. Interpreted by: Noni Ochoa MD Preliminary Report By: Noni Ochoa MD Electronically signed By Noni Ochoa MD Dictated Date: 11/27/2024 10:25:41 AM Prelim Date: 11/27/2024 10:30:49 AM Sign Date: 11/27/2024 10:30:49 AM Ordering Provider: MANAN VACA [facility]02-25-2025 Note* Exam Date Time Procedure Performing Provider Status 11/24/24 6:36 PM Electrocardiogram [AOH] - CV JAREN SCOTT MD; Auth (Verified) ECG Final Report Sinus tachycardia VS Atrial flutter with 2:1 conduction Low voltage, precordial leads Electronic Signature: JENARO SCOTT MD 11/28/2024 22:33:25 [facility]02-24-2025 Pastoral care Progress note Pastoral Care Note Entered On: 11/23/2024 9:25 EST Performed On: 11/23/2024 9:24 EST by Joe Condon Pastoral Care Type of Pastoral Visit : Follow up visit Spiritual Care Visit Initiated by : Consult/Referral Spiritual Care Reason for Visit : General Pastoral Care Referral From : Patient Spiritual Assessment : Positive Image [facility] [employer] Spiritual Care Emotional Assessment : Sad, Pessimistic, Frustrated, Anxious/Worried Spiritual Care Intervention : Active listening, Compassion/Empathy, Supportive presence, Explore Spiritual Needs, Explore Emotional Needs, Prayer with Patient/Family Spiritual Outcomes : Embraces Present Moment Spiritual Plan of Care : Visit as Requested Pastoral Care Visit Length : 10 minute(s) Joe Condon - 11/23/2024 9:24 EST Digitally Signed by Joe Condon on 11/23/2024 09:24 AM [facility]02-22-2025 Evaluation + Plan noteExtracted from: Title:History and Physical Author:CHRISSIE HERNANDEZ APRN-COM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 Date:11/21/24 1. Hyponatremia Acute, new onset, likely secondary to very poor intake. Nursing reports that patient has been drinking her Ensure but not much else. Sodium 120 this morning. Will start NS @ 75cc/hr x 24 hours. Check BMP q6 hours x 24 hours. If sodium drops lower, she will likely need to transfer to tertiary care facility for nephrology consult. 2. Dehydration Acute, new onset, secondary to poor intake. Plan as above. 3. Hyperkalemia Acute, new onset. Will discontinue potassium supplement. 4. Anemia Chronic. Hemoglobin 10.6 this am. Continue to monitor CBC. 5. Weakness Acute on chronic. Will consult PT and OT on Saturday in anticipation that sodium will be improved. DVT prophylaxis with heparin sc. Code status: Full Code. Labs, diagnostic test and progress notes reviewed as noted in HPI. Plan of care discussed with patient. All questions answered. Patient verbalizes understanding and is agreeable with plan of care. This case was discussed with collaborating physician, Dr. Autumn Holm. 77 minutes spent reviewing past diagnostic tests, reviewing lab results, vital sign trends, medical history, reviewing medications and ordering home medications, examining patient, discussed plan of care with care team, collaborating with physician, and documenting in chart. Addendum by AUTUMN HOLM MD on November 28, 2024 14:33:27 EST Encounter was completed as a tele-consult over the phone. Care was discussed with collaborating SUPERVISOR [employer]OR [employer]UITERS Agree with current plan of care [facility] 02-22-2025 Note Date of Service 11/21/2024 Chief Complaint weakness History of Present Illness Patient is a 79-year-old female, who has no recorded primary care provider and a past medical history significant for cerebral palsy, hypertension and anemia, presented to [facility] transitional care program for ongoing therapy following an admission at [facility]. Patient presented to [facility] on 10/30 due to worsening low back pain and difficulty ambulating. She was evaluated while admitted there (see swing H&P for further details) and discharged to [facility] on 11/11/2024 on Cefdinir for bacteremia. Patient has been progressing very slowly with therapy while here and has reportedly been very weak and tearful in the last several days. This morning labs were checked to make sure there is no underlying medical problem contributing to her weakness. Her sodium was found to 120 this morning. Patient was immediately discharged to inpatient status to start IV fluids and further work her up. Per nursing, patient has had a very poor intake of food or fluids much of the time that she has been here for TCU. Her hyponatremia was likely caused by dehydration. We will check urine osmolality, serum osmolality and urine sodium levels. We will check BMP every 6 hours.If sodium should drop lower, she will likely need to be transferred to a tertiary care facility. Patient seen and evaluated this morning while resting in bed. She awakens to name and denies any issues this morning other than pain in her left foot which is not new for her. Explained to patient that her sodium level was very low and that we need to give her IV fluids and try to determine why it is so low. She is agreeable to transitioning to inpatient status. Nursing reports that patient had to be straight cathed overnight due to low output. Patient had 1 liter of urine out. Will contact patient's sister to discuss the above. Patient denies any fever, chills, cough, shortness of breath, chest pain, abdominal pain, nausea or dysuria. All questions answered. Review of Systems Review of Systems: Reviewed in detail, including general health, HEENT, cardiovascular, respiratory, gastrointestinal, genitourinary, endocrine, musculoskeletal, neurologic, vascular, skin, and psychiatric. All are negative except for those listed in the History of Present Illness. Physical Exam Vitals and Measurements T: 36.5 C (Oral) HR: 85 RR: 18 BP: 94/46 SpO2: 98% HT: 170.2 cm WT: 61.3 kg BMI: 21.16 Weight Dosing Weight: 61.3 kg (11/21/24) General: No acute distress. Patient is alert, chronically ill-appearing. Skin: No rash. Skin is warm, dry and intact. HEENT: Head is normocephalic, atraumatic. Pupils are equal, round and reactive. Neck: Supple. No lymphadenopathy, thyromegaly. Lungs: Bilaterally clear but diminished without crepitation or wheeze. Unlabored. Heart: Heart is regular rhythm, S1, S2. No murmurs, gallops or rubs. Abdomen: Abdomen is soft, nontender. Bowels sounds present in all quadrants. Extremities: No clubbing, cyanosis, or edema. Peripheral pulses palpable. No calf tenderness. Neurological: Patient is awake and alert to person, place at times. Following simple commands, moving all extremities. Lab Results No 36 Hour Lab Data Assessment/Plan 1. Hyponatremia Acute, new onset, likely secondary to very poor intake. Nursing reports that patient has been drinking her Ensure but not much else. Sodium 120 this morning. Will start NS @ 75cc/hr x 24 hours. CheckBMP q6 hours x 24 hours. If sodium drops lower, she will likely need to transfer to tertiary care facility for nephrology consult. 2. Dehydration Acute, new onset, secondary to poor intake. Plan as above. 3. Hyperkalemia Acute, new onset. Will discontinue potassium supplement. 4. Anemia Chronic. Hemoglobin 10.6 this am. Continue to monitor CBC. 5. Weakness Acute on chronic. Will consult PT and OT on Saturday in anticipation that sodium will be improved. DVT prophylaxis with heparin sc. Code status: Full Code. Labs, diagnostic test and progress notes reviewed as noted in HPI. Plan of care discussed with patient. All questions answered. Patient verbalizes understanding and is agreeable with plan of care. This case was discussed with collaborating physician, Dr. Autumn Holm. 77 minutes spent reviewing past diagnostic tests, reviewing lab results, vital sign trends, medicalhistory, reviewing medications and ordering home medications, examining patient, discussed plan of care with care team, collaborating with physician, and documenting in chart. Procedure/Surgical History Hysterectomy Hip replacement Tonsillectomy Medications Home Medications (14) Active amLODIPine 5 mg oral tablet 5 mg = 1 tab(s), Oral, qDay flax seed oil 1000 mg oral capsule 1,000 mg = 1 cap(s), Oral, Daily garlic oral capsule 200 mg, Oral, Daily glucosamine 500 mg oral capsule 500 mg = 1 cap(s), Oral, qDay lisinopril 20 mg oral tablet 20 mg = 1 tab(s), Oral, qDay Lyrica 50 mg oral capsule 50 mg = 1 cap(s), Oral, TID metoprolol succinate 50 mg oral TABLET extended release 50 mg = 1 tab(s), Oral, qDay nystatin 100,000 units/mL oral suspension 500,000 unit(s) = 5 mL, Oral, QID polyethylene glycol 3350 17 gram(s), Oral, qDay Potassium Chloride (Eqv-K-Tab) 20 mEq oral tablet, extended release 20 mEq = 1 tab(s), Oral, qDay risperiDONE 0.5 mg oral tablet 0.5 mg = 1 tab(s), Oral, qHS senna (sennosides) 8.6 mg oral tablet 8.6 mg = 1 tab(s), Oral, BID tamsulosin 0.4 mg oral capsule 0.4 mg = 1 cap(s), qDay Vitamin D3 25 mcg = 1 tab(s), Oral, Daily Allergies Augmentin(Severe) amantadine(Severe) amoxicillin(Severe) erythromycin base(Severe) LORazepam Restlessness Social History Alcohol Use: Never., 11/11/2024 Home/Environment Living situation: Home/Independent., 11/11/2024 Nutrition/Health Caffeine intake amount: 3 cups of coffee a day. Eating Difficulties Swallowing., 11/11/2024 Substance Abuse Use: Never., 11/11/2024 Tobacco Nicotine Use: Never (less than 100 in lifetime)., 11/11/2024 Family History Alzheimer's disease: Mother. Diabetes: Father. Hypertension: Father. Osteoporosis: Mother. Health Status Family Member(s) Immunizations SARS-CoV-2 mRNA (tozinameran) vaccine: 0.3 unknown unit (07/26/21) SARS-CoV-2 mRNA (tozinameran) vaccine: 30 unknown unit (12/27/20) SARS-CoV-2 mRNA (tozinameran) vaccine: 30 unknown unit (12/05/20) Code Status Code Status - Ordered -- 11/21/24 9:54:00 EST, Full Code, Constant Order Digitally Signed by CHRISSIE HERNANDEZ on 11/21/2024 12:02 PM [facility]02-22-2025 Hospital Discharge instructions Patient Education 11/21/2024 07:48:08 Weakness, Entm-ym-Gcov Weakness Weakness is a lack of strength. You may feel weak all over your body (generalized), or you may feelweak in one part of your body (focal). There are many potential causes of weakness. Sometimes, the cause of your weakness may not be known. Some causes of weakness can be serious, so it is important to see your doctor. Follow these instructions at home: Activity Rest as needed. Try to get enough sleep. Most adults need 7 8 hours of sleep each night. Talk to your doctor about how much sleep you need each night. Do exercises, such as arm curls and leg raises, for 30 minutes at least 2 days a week or as told byyour doctor. Think about working with a physical therapist or hardware trainer to help you get stronger. General instructions Take irac-hgv-zihurhc and prescription medicines only as told by your doctor. Eat a healthy, well-balanced diet. This includes: ?Proteins to build muscles, such as lean meats and fish. ?Fresh fruits and vegetables. ?Carbohydrates to boost energy, such as whole grains. Drink enough fluid to keep your pee (urine) pale yellow. Keep all follow-up visits as told by your doctor. This is important. Contact a doctor if: Your weakness does not get better or it gets worse. Your weakness affects your ability to: ?Think clearly. ?Do your normal daily activities. Get help right away if you: Have sudden weakness on one side of your face or body. Have chest pain. Have trouble breathing or shortness of breath. Have problems with your vision. Have trouble talking or swallowing. Have trouble standing or walking. Are light-headed. Pass out (lose consciousness). Summary Weakness is a lack of strength. You may feel weak all over your body or just in one part of your body. There are many potential causes of weakness. Sometimes, the cause of your weakness may not be known. Rest as needed, and try to get enough sleep. Most adults need 7 8 hours of sleep each night. Eat a healthy, well-balanced diet. This information is not intended to replace advice given to you by your health care provider. Make sure you discuss any questions you have with your health care provider. Document Released: 08/29/2009 Document Revised: 04/22/2019 Document Reviewed: 04/22/2019 [employer] Patient Education 2020 [employer]. Follow Up Care 11/04/2024 12:20:20 With:ARACELI HART MD Address: [address] [place] [address] [address] [place] [address]- [phone] When:11/24/2024 09:00:00 Comments:This is your post-hospital follow-up appointment with orthopedics. [facility] 02-22-2025 Note Discharge Instructions Thank you for allowing [facility] to assist you with your healthcare needs. The following is importantdischarge information regarding your hospital visit. Your Care Team [facility] Your Diagnosis Asthenia Bacteremia Depression, unspecified Dysphagia Essential (primary) hypertension HTN (hypertension) Low back pain Urinary retention What to do next Instructions From Your Doctor You were admitted to [facility] transitional care program for strengthening prior toreturning home. We checked labs this morning and found that your sodium was quite low. We will needto discharge you from our transitional care program so that we can correct your sodium level. Follow Up Appointments Follow Up with ARACELI HART MD When:11/24/2024 09:00 AM EST Where:[address] [facility] [address] [place] [address]- [phone] Additional Information: This is your post-hospital follow-up appointment with orthopedics. The Following Activity and Diet Have Been Ordered for You Discharge Activity - Ordered -- Resume your pre-hospitalization activity, 11/21/24 7:51:00 EST Discharge Diet - Ordered -- No changes were made to your diet during your hospital stay. Please resume your pre hospitalization diet on discharge., 11/21/24 7:51:00 EST The Following Equipment Has Been Ordered for You Home Equipment - None No qualifying data available. The Following Treatments Have Been Ordered for You Discharge Labs No qualifying data available. Discharge Radiology No qualifying data available. Other Therapies No qualifying data available. Post Acute Orders No qualifying data available. Someone Will Contact You Regarding These Home Health Referrals No home referrals have been ordered for you. No one will call you. Allergies Augmentin(Severe) amantadine(Severe) amoxicillin(Severe) erythromycin base(Severe) LORazepam Restlessness Medications Please ask your primary doctor or pharmacist before taking any other medication not listed, including over the counter drugs, herbal medications, vitamins and or supplements as they may interact withyour home medications. What How Much When Instructions Last Dose New pregabalin (Lyrica 50 mg oral capsule) 1 cap by mouth Three (3) times a day Unchanged amLODIPine (amLODIPine 5 mg oral tablet) 1 tab(s) by mouth Once a day Unchanged cholecalciferol (Vitamin D3) 25 Microgram by mouth Every day Unchanged glucosamine (glucosamine 500 mg oral capsule) 1 cap by mouth Once a day Unchanged herbal/ nutritional product (flax seed oil 1000 mg oral capsule) 1 cap by mouth Every day Unchanged herbal/ nutritional product (garlic oral capsule) 200 Milligram by mouth Every day Unchanged lisinopril (lisinopril 20 mg oral tablet) 1 tab(s) by mouth Once a day Unchanged metoprolol (metoprolol succinate 50 mg oral TABLET extended release) 1 tab(s) by mouth Once a day Unchanged nystatin (nystatin 100,000 units/ mL oral suspension) 5 Milliliter by mouth Four (4) times a day Unchanged polyethylene glycol 3350 17 gram(s) by mouth Once a day Unchanged potassium chloride (Potassium Chloride (Eqv-K-Tab) 20 mEq oral tablet, extended release) 1 tab(s) by mouth Once a day Unchanged risperiDONE (risperiDONE 0.5 mg oral tablet) 1 tab(s) by mouth Daily at bedtime Unchanged senna (senna (sennosides) 8.6 mg oral tablet) 1 tab(s) by mouth Two (2) times a day Unchanged tamsulosin (tamsulosin 0.4 mg oral capsule) 1 cap Once a day What How Much When Comments Stop Taking cefdinir (cefdinir 300 mg oral capsule) 1 cap by mouth Every 12 hours Please take this list to your next doctor s visit. Bring all medications you take, including over the counter medications, herbals and other supplements with you to your doctor s visit. Patients and families are reminded to discard old lists and to update any records with all medication providers or retail pharmacies. Education Materials Weakness Weakness is a lack of strength. You may feel weak all over your body (generalized), or you may feelweak in one part of your body (focal). There are many potential causes of weakness. Sometimes, the cause of your weakness may not be known. Some causes of weakness can be serious, so it is important to see your doctor. Follow these instructions at home: Activity Rest as needed. Try to get enough sleep. Most adults need 7 8 hours of sleep each night. Talk to your doctor about how much sleep you need each night. Do exercises, such as arm curls and leg raises, for 30 minutes at least 2 days a week or as told byyour doctor. Think about working with a physical therapist or hardware trainer to help you get stronger. General instructions Take fmvq-brz-omzwthb and prescription medicines only as told by your doctor. Eat a healthy, well-balanced diet. This includes: ? Proteins to build muscles, such as lean meats and fish. ? Fresh fruits and vegetables. ? Carbohydrates to boost energy, such as whole grains. Drink enough fluid to keep your pee (urine) pale yellow. Keep all follow-up visits as told by your doctor. This is important. Contact a doctor if: Your weakness does not get better or it gets worse. Your weakness affects your ability to: ? Think clearly. ? Do your normal daily activities. Get help right away if you: Have sudden weakness on one side of your face or body. Have chest pain. Have trouble breathing or shortness of breath. Have problems with your vision. Have trouble talking or swallowing. Have trouble standing or walking. Are light-headed. Pass out (lose consciousness). Summary Weakness is a lack of strength. You may feel weak all over your body or just in one part of your body. There are many potential causes of weakness. Sometimes, the cause of your weakness may not be known. Rest as needed, and try to get enough sleep. Most adults need 7 8 hours of sleep each night. Eat a healthy, well-balanced diet. This information is not intended to replace advice given to you by your health care provider. Make sure you discuss any questions you have with your health care provider. Document Released: 08/29/2009 Document Revised: 04/22/2019 Document Reviewed: 04/22/2019 [employer] Patient Education 2020 [employer]. Additional Information VACCINATE! IT SAVES LIVES! Members of the community who have not yet received the COVID-19 vaccine and would like to receive it can visit one of [facility] vaccine clinics. There are many vaccine clinic locations within the [facility]. For locations and available times, please visit https://gettheshot.coronavirus.[place].gov/. It is important to note that some COVID mobile vaccine clinics are held outdoors and may be canceled in rainy or stormy conditions. To learn more about pediatric vaccinations (ages 5-11), we invite you to visit the [facility] webpage. https://www.[facility].org/pages/9825-Nrfkg-Zkqhhggxgtj-Itaojeukpi-Izxaq-Whv stions.htmlTo learn more about the COVID-19 vaccine, we invite you to visit the CDC website for a list of frequently asked questions.https://www.cdc.gov/coronavirus/2019-ncov/vaccines/faq.html [facility] [employer] [facility] Patient Portal Access Instructions: Stay connected with your healthcare team and access your personal medical information anytime with the [employer] Patient Portal. Please follow the directions below to create your [employer] account: 1.Access the email account you provided upon registration to the hospital/physician office.2.Look for an invitation email from [facility].3.Open the email and access the invitation link: AcceptInvitation to [facility].4.Fill in the required garcia to create your account. To access your account, visit [email or web address]. Click the blue button labeled "Access Patient Portal" and then log in with the username and password that you created in the steps above. You will be able to view your test results, lab results, a summary of your visits, upcoming appointments and more. There is also a convenient messaging option where you can send secure messages to your p rovider. In addition, you will have the ability to download any documents or summaries to your computer and/or send the information securely to a physician. Remember that your healthcare information is confidential, so carefully consider who you will allowto register on the [facility] [employer] [facility] Patient Portal for access to your information. You can also access the [facility] Patient Portal on the [facility] marisol. Simply click on "Patient Portal" and then log into your account. If you would like to receive a full copy of your medical records, please contact the [facility] Medical Records Department by calling [phone], Saturday through Saturday between 8 a.m. and 4:30 p.m. HOW TO SAFELY DISPOSE OF PRESCRIPTION MEDICATIONS Please use one of the following methods to safely dispose of your unused medications. 1.Use a drug disposal kit: the drug disposal pouch allows you to safely discard your old and unuseddrugs. Ask your nurse to give you one when you are discharged.2.Visit a local take-back location: Many local pharmacies and police departments have programs that collect old and unwanted prescriptiondrugs. Call your local pharmacy or go to http://bit.Pepscan/9E7Hc1h to find one close to you.3.Make use of household items: Use cat litter or old coffee grounds to dispose medications if other options arenot available. Mix your drugs with these household products, seal them in an airtight container andthrow it into the garbage. Call [facility]: [phone] to be sure your drugs can be disposed of in this way. Some medicines may require a different approach.4.Never flush your medications down the toilet. IF YOU HAVE BEEN PRESCRIBED AN OPIOID FOR PAIN If you have been prescribed an opioid (such as hydrocodone, oxycodone or morphine), it is critical to understand the possible side effects and risks of opioid pain medications. Even when taken as directed, opioids can have several side effects including: Tolerance, meaning you might need to take more of a medication for the same pain relief. Nausea, vomiting and/or constipation. Sleepiness, dizziness, dry mouth, confusion, depression or itching. Physical dependence, meaning you have withdrawal symptoms when a medication is stopped, can develop within a few days. KNOW YOUR RESPONSIBILITIES It is important to know exactly how much and how often to take the opioid pain medications you are prescribed. Never take opioids in higher amounts or more often than prescribed. Do not combine opioids with alcohol or other drugs that cause drowsiness, such as benzodiazepines, also known as benzos, including diazepam and alprazolam, muscle relaxants or sleep aids. Never sell or share prescription opioids. This is illegal. Store opioids in a secure place and out of reach of others (including children, family, friends and visitors). The last page of this document has been signed and retained as a CHART COPY. Signatures Patient Education Materials Weakness, Sffe-op-Vuuv Medication Leaflets My discharge plan and instructions have been reviewed and explained to me and I,ROSETTE BURTON understand my current condition and have read and understand these discharge instructions. I have received a written copy of the plan/instructions. If I have questions, I am aware that I should contact my doctor. Patient/Guidance Consultant Signature: Date/Time: Relationship to Patient: Witness Name/Signature: Date/Time: [facility]02-21-2025 Note Date of Service 11/20/2024 Chief Complaint weakness, leg and foot pain Subjective Patient seen and evaluated this morning while resting in bed. She states that she is having severe pain in her lower extremities and feet. She feels that her legs are made of lead. She does not feel that anything makes it better or worse. It looks like she was started on a low dose of Lyrica when she first admitted to [facility]. Will increase the dose to 50 mg PO TID today to see if that helps with her pain. Patient has not touched her breakfast this morning. She states that it is cold so she cannot eat it. Offered to warm it up for patient but she declines. Patient encouraged to try to eat more as that will help her increase her strength. Patient reports that she has been drinking the Ensure she is getting but just does not want to eat. Patient advised that we will review her chart and she if there is anything that can be adjusted for comfort. She denies any fever, chills, cough, shortnessof breath, chest pain, abdominal pain, nausea or dysuria. All questions answered. Objective Vitals and Measurements T: 36.4 C (Oral) HR: 95 (Apical) RR: 20 BP: 119/59 SpO2: 100% Intake and Output 7AM Yesterday to 7AM Today Intake and Output (Last 24 hours) Intake Oral Intake 1673.00 Output Urinary Catheter Output: 300.00 Stool Count 1.00 Diaper Count 1.00 Total Summary Total Intake 1673.00 Total Output 300.00 Fluid Balance 1373.00 Physical Exam General: No acute distress. Patient is alert, chronically ill-appearing. Skin: No rash. Skin is warm, dry and intact. HEENT: Head is normocephalic, atraumatic. Pupils are equal, round and reactive. Neck: Supple. No lymphadenopathy, thyromegaly. Lungs: Bilaterally clear but diminished without crepitation or wheeze. Unlabored. Heart: Heart is regular rhythm, S1, S2. No murmurs, gallops or rubs. Abdomen: Abdomen is soft, nontender. Bowels sounds present in all quadrants. Extremities: No clubbing, cyanosis, or edema. Peripheral pulses palpable. No calf tenderness. Neurological: Patient is awake and alert to person, place. Following simple commands, moving all extremities. Weight Current Weight Dosing Weight: 60.3 kg (11/11/24) Current Weight: 60.4 kg (11/13/24) Medications Medications (14) Active Scheduled: (9) acetaminophen 500 mg Tablet 1,000 mg 2 tab(s), Oral, TID amLODIPine 5 mg tablet 5 mg 1 tab(s), Oral, qDay cholecalciferol 25 mcg tablet (Vit D3 1000 units) 25 mcg 1 tab(s), Oral, Daily lisinopril 20 mg tablet 20 mg 1 tab(s), Oral, qDay metoprolol succinate 50 mg ER tablet 50 mg 1 tab(s), Oral, qDay potassium bicarbonate -citric acid 25 mEq EFF tablet 25 mEq 1 tab(s), Oral, qDay pregabalin 25 mg capsule 25 mg 1 cap(s), Oral, TID risperiDONE 1 mg tablet 0.5 mg 0.5 tab(s), Oral, qHS tamsulosin 0.4 mg Capsule 0.4 mg 1 cap(s), Oral, qDay Continuous: (0) PRN: (5) acetaminophen 325 mg Tablet 650 mg 2 tab(s), Oral, q4h docusate sodium 100 mg Capsule 100 mg 1 cap(s), Oral, BID melatonin 3 mg tablet 3 mg 1 tab(s), Oral, qHS ondansetron 4 mg DIS tablet 4 mg 1 tab(s), Oral, q8h polyethylene glycol 3350 - UD packet 17 gram(s) 15 mL, Oral, qDay Lab Results No 36 Hour Lab Data EKG No qualifying data available. Assessment/Plan 1. Asthenia Continue PT and OT. Patient has a history of cerebral palsy and is independent at baseline. She is still requiring a great deal of assistance. Care conference this afternoon with family. 2. Bacteremia Resolved. Antibiotics finished on 11/15. 3. Depression, unspecified Chronic. Continue risperidone but increase to 1 mg PO qhs. 4. Dysphagia Patient was evaluated by speech therapy for dysphagia and recommended all meals be supervised and nectar thick liquids. Speech therapy re-evaluated and patient is safe to feed herself. 5. Urinary retention Continue Flomax. It is recommended that patient follow-up with urology. 6. HTN (hypertension) SBP goal 140 or less. Continue home antihypertensives. 7. Low back pain Patient sustained 2 falls. She is due to follow-up with Dr. Hart, orthopedic spinal surgeon. She has radiculopathy. Continue Lyrica but increase to 50 mg po TID. DVT prophylaxis with SCDs. Code Status: Full code. Labs, diagnostic test and progress notes reviewed as noted in HPI. Plan of care discussed with patient. All questions answered. Patient verbalizes understanding and is agreeable with plan of care. This case was discussed with collaborating physician, Dr. Autumn Holm. Anticipated Date of Discharge unsure at this point - waiting for insurance update Time Spent 29 minutes spent reviewing past diagnostic tests, reviewing lab results, vital sign trends, medicalhistory, reviewing medications and ordering home medications, examining patient, discussed plan of care with care team, collaborating with physician, and documenting in chart. CPT#72832 Digitally Signed by CHRISSIE HERNANDEZ on 11/20/2024 02:14 PM [facility]02-21-2025 Pastoral care Progress note Pastoral Care Note Entered On: 11/20/2024 9:31 EST Performed On: 11/20/2024 9:26 EST by Joe Condon Pastoral Care Type of Pastoral Visit : Follow up visit Spiritual Care Visit Initiated by : Foil Spooler Spiritual Care Reason for Visit : General Pastoral Care Referral From : Patient Spiritual Assessment : Positive Image of God Spiritual Care Emotional Assessment : Sad, Pessimistic, Frustrated, Fearful, Anxious/Worried, Feeling Helpless, Emotional Exhaustion, Tearful Spiritual Care Intervention : Active listening, Compassion/Empathy, Supportive presence, Explore Emotional Needs, Prayer with Patient/Family, Identify Possibilities, Help Reconsider Priorities Spiritual Outcomes : Spiritual Resources Stirred, Expresses Gratitude Spiritual Plan of Care : Visit as Requested Pastoral Care Comments : patient is tearful and expresses feelings of being overwhelmed, unable to make choices, having pain, losing her independence, lack of imput from family members, fearful of what the future holds; lots of supportive listening and reflection; giving input to what her options might be and speaking of resources offered at the hospital; pt is tearful at times; pt welcomes presence and prayer for support; this sunday school missionary notified SW and CRITICAL CARE TECHNICIAN of concerns today; a care conference will occur today Pastoral Care Visit Length : 20 minute(s) Joe Condon - 11/20/2024 9:26 EST Digitally Signed by Joe Condon on 11/20/2024 09:26 AM [facility]02-18-2025 Pastoral care Progress note Pastoral Care Note Entered On: 11/17/2024 9:19 EST Performed On: 11/17/2024 9:15 EST by Joe Condon Pastoral Care Type of Pastoral Visit : Follow up visit Spiritual Care Visit Initiated by : Foil Spooler Spiritual Care Reason for Visit : General Spiritual Assessment : Grateful/Thankful, Positive Image of God Spiritual Care Emotional Assessment : Sad, Pessimistic, Feeling Helpless Spiritual Care Intervention : Words of Encouragement, Compassion/Empathy, Supportive presence, Prayer with Patient/Family Spiritual Outcomes : Expresses Gratitude Spiritual Plan of Care : Visit as Requested Pastoral Care Comments : patient is in bed and appearing to be without energy and states that she is "in a difficult situation and how did I get this way?"; pt admits discouragement and questioning her future; pt is reminder of being in a place where she is getting help, that the God who has helpedher in the past is the same God that will be with her now and in the future; presence, calming assurance of care, prayer are given; pt expresses thanks for the support Pastoral Care Visit Length : 15 minute(s) Joe Condon - 11/17/2024 9:15 EST Digitally Signed by Joe Condon on 11/17/2024 09:15 AM [facility]02-16-2025 Note Date of Service 11/15/24 Chief Complaint Asthenia Subjective 79-year-old female with past medical history significant for cerebral palsy, HTN, anemia. Patient originally presented to [facility] on 10/30/2024 with progressively worsening low back pain and difficulty ambulating. Patient sustained a mechanical fall 2 weeks prior and then another 1 week after that where she landed on her buttocks. CT of her chest, abdomen, pelvis showed distended urinary bladder, loss of height of L3 and L5 vertebrae and anterolisthesis of L5 on S1. She was noted to have parainfluenza infection. White blood cell count was elevated at 22. Blood cultures positive for streptococcus alactolyticus. Infectious disease, Dr. Art was consulted. Patient was placed on broad-spectrum antibiotics. Colonoscopy was recommended. This was done by Dr. Kwan. This showed diffuse mild mucosal changes in the sigmoid colon, descending colon, at the hepatic flexure, in the ascending colon and in the cecum secondary to colitis. Notable for diverticulosis inthe rectosigmoid colon. Antibiotics were de-escalated to cefdinir with stop date of 11/15. MRI of the lumbar spine was done given bacteremia. Findings were consistent with moderate/severe spinal stenosis and severe bilateral foraminal narrowing with degenerative joint disease. Patient is due to follow-up as an outpatient with Dr. Hart, orthopedic spinal surgeon. Patient did have some urinary retention and briefly required Puentes catheter. She was initiated on Flomax with recommendations to follow-up with urology as an outpatient. She was evaluated by therapy services with recommendations for SNF. She was subsequently admitted to [facility]. Patient has no complaints today. She has intermittently been complaining of pain in her legs. This is chronic but worse at times. Today she has no pain but she also hasn't worked with therapy. Objective Vitals and Measurements T: 36.6 C (Oral) TMIN: 36.6 C (Oral) TMAX: 36.8 C (Oral) HR: 103 (Apical) RR: 18 BP: 103/61 SpO2: 97% Intake and Output 7AM Yesterday to 7AM Today Intake and Output (Last 24 hours) Intake Oral Intake 480.00 Supplement Intake 100.00 Output Urinary Catheter Output: 500.00 Stool Count 0.00 Total Summary Total Intake 580.00 Total Output 500.00 Fluid Balance 80.00 Physical Exam GEN: Appears chronically ill CHEST: Normal S1 and S2. Rhythm is regular. Clear to auscultation, without rales, rhonchi, wheezing. ABD: Positive bowel sounds x 4 quads. Soft, nondistended, nontender. EXT: Chronic internal rotation of RLE. Peripheral pulses intact. NEURO: Sensation grossly intact SKIN: Skin color normal PSYCH: The mental examination revealed the patient was alert and oriented x 3, forgetful Weight Current Weight Dosing Weight: 60.3 kg (11/11/24) Current Weight: 60.4 kg (11/13/24) Medications Medications (17) Active Scheduled: (12) amLODIPine 5 mg tablet 5 mg 1 tab(s), Oral, qDay cefdinir 300 mg Capsule 300 mg 1 cap(s), Oral, q12h cholecalciferol 25 mcg tablet (Vit D3 1000 units) 25 mcg 1 tab(s), Oral, Daily docusate-senna (Senokot S) 50 mg-8.6 mg Tablet 1 tab(s), Oral, BID heparin 5,000 units/mL (1 mL) vial 5,000 unit(s) 1 mL, Subcutaneous, q8h lisinopril 20 mg tablet 20 mg 1 tab(s), Oral, qDay metoprolol succinate 50 mg ER tablet 50 mg 1 tab(s), Oral, qDay polyethylene glycol 3350 - UD packet 17 gram(s) 15 mL, Oral, qDay potassium bicarbonate -citric acid 25 mEq EFF tablet 25 mEq 1 tab(s), Oral, qDay pregabalin 25 mg capsule 25 mg 1 cap(s), Oral, TID risperiDONE 1 mg tablet 0.5 mg 0.5 tab(s), Oral, qHS tamsulosin 0.4 mg Capsule 0.4 mg 1 cap(s), Oral, qDay Continuous: (0) PRN: (5) acetaminophen 325 mg Tablet 650 mg 2 tab(s), Oral, q4h docusate sodium 100 mg Capsule 100 mg 1 cap(s), Oral, BID melatonin 3 mg tablet 3 mg 1 tab(s), Oral, qHS ondansetron 4 mg DIS tablet 4 mg 1 tab(s), Oral, q8h polyethylene glycol 3350 - UD packet 17 gram(s) 15 mL, Oral, qDay Assessment/Plan 1. Asthenia 2. Bacteremia 3. Urinary retention 4. HTN (hypertension) 5. Low back pain 6. Dysphagia Asthenia Continuet PT and OT. Patient has a history of cerebral palsy and is independent at baseline. She is still requiring a great deal of assistance. Bacteremia Cefdinir done today. Urinary retention Continue Flomax. It is recommended that patient follow-up with urology. HTN- SBP goal 140 or less. Continue home antihypertensives. Low back pain patient sustained 2 falls. She is due to follow-up with Dr. Hart, orthopedic spinal surgeon. She has radiculopathy. Continue Lyrica 25mg po TID. Dysphagia-Patient was evaluated by speech therapy for dysphagia and recommended all meals be supervised and nectar thick liquids. Speech therapy re-evaluated and patient is safe to feed herself. Code Status: Full code Plan of care discussed with patient. All questions answered. Patient verbalizes understanding is agreeable to plan of care. This dictation was performed using voice recognition software and may include grammatical and/or spelling errors. [id number] Digitally Signed by MANAN VACA on 11/15/2024 02:22 PM [facility]02-13-2025 Note Date of Service 11/12/24 Chief Complaint Asthenia History of Present Illness 79-year-old female with past medical history significant for cerebral palsy, HTN, anemia. Patient originally presented to [facility] on 10/30/2024 with progressively worsening low back pain and difficulty ambulating. Patient sustained a mechanical fall 2 weeks prior and then another 1 week after that where she landed on her buttocks. CT of her chest, abdomen, pelvis showed distended urinary bladder, loss of height of L3 and L5 vertebrae and anterolisthesis of L5 on S1. She was noted to have parainfluenza infection. White blood cell count was elevated at 22. Blood cultures positive for streptococcus alactolyticus. Infectious disease, Dr. Art was consulted. Patient was placed on broad-spectrum antibiotics. Colonoscopy was recommended. This was done by Dr. Kwan. This showed diffuse mild mucosal changes in the sigmoid colon, descending colon, at the hepatic flexure, in the ascending colon and in the cecum secondary to colitis. Notable for diverticulosis inthe rectosigmoid colon. Antibiotics were de-escalated to cefdinir with stop date of 11/15. MRI of the lumbar spine was done given bacteremia. Findings were consistent with moderate/severe spinal stenosis and severe bilateral foraminal narrowing with degenerative joint disease. Patient is due to follow-up as an outpatient with Dr. Hart, orthopedic spinal surgeon. Patient did have some urinary retention and briefly required Puentes catheter. She was initiated on Flomax with recommendations to follow-up with urology as an outpatient. She was evaluated by therapy services with recommendations for SNF. She was subsequently admitted to [facility]. On exam today, pt denies any fever or chills. No headache or dizziness. Denies chest pain, palpitations. No cough, dyspnea, sputum production. Denies N/V/D/C. No melena/hematochezia. No dysuria or hematuria. Radiculopathy BLE. Review of Systems See HPI for specific ROS. All other systems reviewed and negative. Physical Exam Vitals and Measurements T: 36.8 C (Oral) TMIN: 36.7 C (Oral) TMAX: 36.8 C (Oral) HR: 78 (Apical) RR: 18 BP: 135/69 SpO2: 97% HT: 170.2 cm WT: 60.3 kg BMI: 20.82 Weight Dosing Weight: 60.3 kg (11/11/24) GEN: Appears chronically ill EYES: No conjunctival erythema, drainage. EOMI EARS: Hearing grossly intact. NOSE: No nasal discharge. THROAT: Oral cavity and pharynx pink and moist. CHEST: Normal S1 and S2. Rhythm is regular. Clear to auscultation, without rales, rhonchi, wheezing. ABD: Positive bowel sounds x 4 quads. Soft, nondistended, nontender. EXT: No significant deformity or joint abnormality. No edema. Peripheral pulses intact. NEURO: Sensation grossly intact SKIN: Skin color normal PSYCH: The mental examination revealed the patient was alert and oriented x 3 Assessment/Plan 1. Asthenia 2. Bacteremia 3. Urinary retention 4. HTN (hypertension) 5. Low back pain 6. Dysphagia Asthenia consult PT and OT. Patient has a history of cerebral palsy and is independent at baseline. Bacteremia unclear source. Continue Cefdinir 300 mg twice daily with stop date of 11/15/2024 at 2100. Afebrile and hemodynamically stable. Urinary retention patient was started on Flomax at [facility]. Will continue this. It is recommended that patient follow-up with urology. HTN- SBP goal 140 or less. Continue home antihypertensives. Low back pain patient sustained 2 falls. She is due to follow-up with Dr. Hart, orthopedic spinal surgeon. She has radiculopathy. Lyrica 25mg po TID. Dysphagia-Patient was evaluated by speech therapy for dyysphagia and recommended all meals be supervised and nectar thick liquids. Speech therapy consult to re- evaluate need for supervision as patients mentation has improved. Code Status: Full code Plan of care discussed with patient. All questions answered. Patient verbalizes understanding is agreeable to plan of care. This dictation was performed using voice recognition software and may include grammatical and/or spelling errors. Procedure/Surgical History Hysterectomy Hip replacement Tonsillectomy Medications Home Medications (14) Active amLODIPine 5 mg oral tablet 5 mg = 1 tab(s), Oral, qDay cefdinir 300 mg oral capsule 300 mg = 1 cap(s), Oral, q12h flax seed oil 1000 mg oral capsule 1,000 mg = 1 cap(s), Oral, Daily garlic oral capsule 200 mg, Oral, Daily glucosamine 500 mg oral capsule 500 mg = 1 cap(s), Oral, qDay lisinopril 20 mg oral tablet 20 mg = 1 tab(s), Oral, qDay metoprolol succinate 50 mg oral TABLET extended release 50 mg = 1 tab(s), Oral, qDay nystatin 100,000 units/mL oral suspension 500,000 unit(s) = 5 mL, Oral, QID polyethylene glycol 3350 17 gram(s), Oral, qDay Potassium Chloride (Eqv-K-Tab) 20 mEq oral tablet, extended release 20 mEq = 1 tab(s), Oral, qDay risperiDONE 0.5 mg oral tablet 0.5 mg = 1 tab(s), Oral, qHS senna (sennosides) 8.6 mg oral tablet 8.6 mg = 1 tab(s), Oral, BID tamsulosin 0.4 mg oral capsule 0.4 mg = 1 cap(s), qDay Vitamin D3 25 mcg = 1 tab(s), Oral, Daily Allergies Augmentin(Severe) amantadine(Severe) amoxicillin(Severe) erythromycin base(Severe) LORazepam Restlessness Social History Alcohol Use: Never., 11/11/2024 Home/Environment Living situation: Home/Independent., 11/11/2024 Nutrition/Health Caffeine intake amount: 3 cups of coffee a day. Eating Difficulties Swallowing., 11/11/2024 Substance Abuse Use: Never., 11/11/2024 Tobacco Nicotine Use: Never (less than 100 in lifetime)., 11/11/2024 Family History Alzheimer's disease: Mother. Diabetes: Father. Hypertension: Father. Osteoporosis: Mother. Health Status Family Member(s) Immunizations SARS-CoV-2 mRNA (tozinameran) vaccine: 0.3 unknown unit (07/26/21) SARS-CoV-2 mRNA (tozinameran) vaccine: 30 unknown unit (12/27/20) SARS-CoV-2 mRNA (tozinameran) vaccine: 30 unknown unit (12/05/20) Code Status Code Status - Ordered -- 11/11/24 23:32:00 EST, Full Code, Constant Order Digitally Signed by MANAN VACA on 11/12/2024 02:44 PM [facility]02-13-2025 Evaluation + Plan noteExtracted from: Title:History and Physical Author:MANAN VACA Date:11/12/24 1. Asthenia 2. Bacteremia 3. Urinary retention 4. HTN (hypertension) 5. Low back pain 6. Dysphagia Asthenia consult PT and OT. Patient has a history of cerebral palsy and is independent at baseline. Bacteremia unclear source. Continue Cefdinir 300 mg twice daily with stop date of 11/15/2024 at 2100. Afebrile and hemodynamically stable. Urinary retention patient was started on Flomax at [facility]. Will continue this. It is recommended that patient follow-up with urology. HTN- SBP goal 140 or less. Continue home antihypertensives. Low back pain patient sustained 2 falls. She is due to follow-up with Dr. Hart, orthopedic spinal surgeon. She has radiculopathy. Lyrica 25mg po TID. Dysphagia-Patient was evaluated by speech therapy for dyysphagia and recommended all meals be supervised and nectar thick liquids. Speech therapy consult to re- evaluate need for supervision as patients mentation has improved. Code Status: Full code Plan of care discussed with patient. All questions answered. Patient verbalizes understanding is agreeable to plan of care. This dictation was performed using voice recognition software and may include grammatical and/or spelling errors. [facility] 02-13-2025 Pastoral care Progress note Pastoral Care Note Entered On: 11/12/2024 9:51 EST Performed On: 11/12/2024 9:48 EST by Joe Condon Pastoral Care Type of Pastoral Visit : Initial visit Spiritual Care Visit Initiated by : Foil Spooler Spiritual Care Reason for Visit : General Spiritual Assessment : Faithful, Grateful/Thankful, Positive Image of God Spiritual Care Emotional Assessment : Sad, Thoughtful/Reflective, Pessimistic, Anxious/Worried, Feeling Helpless Spiritual Care Intervention : Active listening, Compassion/Empathy, Facilitate Life Review, Supportive presence, Explore Spiritual Needs, Explore Emotional Needs, Prayer with Patient/Family Spiritual Outcomes : Expresses Gratitude, Expresses Chandni, Set realistic goals Spiritual Plan of Care : Follow-Up Visit Pastoral Care Comments : patient is welcoming and talkative about her life and her situation; pt reports on deep concern if "I can have the stamina to do this and to keep going"; pt loves her sikhism/tool machinist but has not been able to attend most services lately and this bothers her; pt has some limited family support; pt states that she likes people to visit with her; 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; pt welcomes presence and prayers for support; pt would like future visits Pastoral Care Visit Length : 20 minute(s) Joe Condon - 11/12/2024 9:48 EST Digitally Signed by Joe Condon on 11/12/2024 09:48 AM [facility]02-12-2025 [facility] 10-30-2024 Evaluation note* Diagnosis Onset Date Resolution Status Admit Date Difficulty in walking acute Sep 3:56pm Hypokalemia acute October 30, 2024 3:56pm Intractable low back pain acute October 30, 2024 3:56pm Leukocytosis acute September 3:56pm Parainfluenza virus infection acute October 30, 2024 3:56pm Tachycardia acute October 30, 2024 3:56pm Urinary retention acute October 30, 2024 3:56pm Cerebral palsy chronic October 302024 3:56pm Streptococcal bacteremia resolved October 30, 2024 3:56pm Acute hypoxic respiratory failure resolved December 04, 2024 2:39pm Influenza A resolved December 04 2:39pm [facility] Work Phone: [phone]) 201-192512-27-2024 Evaluation note* Diagnosis Onset Date Resolution Status Admit Date Tachycardia acute August 11:18am Essential (primary) hypertension chronic September 25, 2 024 11:18am Palpitations chronic August 11:18am Difficulty in walking acute Sep 3:56pm Hypokalemia acute October 30, 2024 3:56pm Intractable low back pain acute October 30, 2024 3:56pm Leukocytosis acute [place] [address] , 2025 3:56pm Parainfluenza virus infection acute October 30, 2024 3:56pm Tachycardia acute October 30, 2024 3:56pm Urinary retention acute October 30, 2024 3:56pm Cerebral palsy chronic October 302024 3:56pm Streptococcal bacteremia resolved October 30, 2024 3:56pm Acute hypoxic respiratory failure acute December 04, 2024 2:39pm Influenza A acute December 04 2:39pm [facility] Work Phone: [phone] 780-583903-07-2024 NoteHNO ID: [id number] Author: DARRIUS AGUILAR MD Service: ? Author Type: Physician Type: Procedures Filed: 12/05/2023 17:52 Note Text: CYSTOSCOPY PROCEDURE NOTE: Casa Burton is a 78 year old female who presents with follow up bladder tumorfor a cystoscopy. Pt ID verified with patient: Yes Procedure verified with patient: Yes Procedure confirmed with physician and vp software support: Yes Patient's Pre-op pain level: 0 UNIVERSAL PROTOCOL / SAFETY CHECKLIST Procedure to be Performed: Cystoscopy Sign In: A Moment of CARE was completed. Personnel directly involved with the procedure wore the appropriate PPE (Personal Protective Equipment). Patient/Surrogate Stated/Verified: PATIENT VERIFIED(optional for EMERGENT procedures): Patient name, Date of , Relevant allergies, and The intended procedure Time Out Communication: Intended patient and procedure match the source documents. Consent documented and matches the intended procedure. Sign Out: SIGN OUT (optional for EMERGENT procedures): No specimen collected. Darrius Aguilar MD A urinalysis was performed revealing no evidence of infection. The benefits, risks, alternatives of the cystoscopy procedure and personnel were discussed with the patient. The verbal consent was obtained and the patient agrees to proceed. Procedure: The patient was placed on the procedure table in the supine position and prepped and draped in the usual sterile fashion. 2% Lidocaine Jelly was placed per urethra as an anesthetic in the standard fashion. Once adequate local anesthesia was achieved, the tip of the Flexible cystoscope was carefully placed into the urethra under direct visual guidance. The scope was negotiated per urethra with no evidence of stricture into the bladder. Careful hogan endoscopy was carried out. The posterior, superior and lateral diaz and dome of the bladder were all well visualized. The findings were consistent with no evidence of bladder mucosal pathology. At the conclusion of the procedure, the Flexible cystoscope was removed atraumatically. The patient tolerated the procedure without complications. Patient was given standard post-procedure instructions, and was directed to complete the course of oral antibiotics and increase oral fluid intake as directed. Patient's Post-op pain level: 0 ASSESSMENT/PLAN: 1. Microscopic hematuria - ICD9: 599.72, ICD10: R31.29 (primary diagnosis) 2. History of bladder cancer - ICD9: V10.51, ICD10: Z85.[address] urogram. Cystoscopy today is unremarkable. Can follow-up with me for virtual visit in 1 year. Darrius Aguilar Please note: This note has been produced using speech recognition software and may contain errors related to that system including grammar, punctuation, spelling, gender and words and phrases that may be inappropriate.[facility]03-07-2024 Procedure note* Darrius Aguilar MD - 12/05/2023 5:51 PM ESTProcedure(s): CYSTOSCOPY Pre-Procedure Diagnose(s): History of bladder cancer Post-Procedure Diagnose(s): History of bladder cancer CYSTOSCOPY PROCEDURE NOTE: Casa Burton is a 78 year old female who presents with follow up bladder tumorfor a cystoscopy. Pt ID verified with patient: Yes Procedure verified with patient: Yes Procedure confirmed with physician and vp software support: Yes Patient's Pre-op pain level: 0 UNIVERSAL PROTOCOL / SAFETY CHECKLIST Procedure to be Performed: Cystoscopy Sign In: A Moment of CARE was completed. Personnel directly involved with the procedure wore the appropriate PPE (Personal Protective Equipment). Patient/Surrogate Stated/Verified: PATIENT VERIFIED(optional for EMERGENT procedures): Patient name, Date of , Relevant allergies, and The intended procedure Time Out Communication: Intended patient and procedure match the source documents. Consent documented and matches the intended procedure. Sign Out: SIGN OUT (optional for EMERGENT procedures): No specimen collected. Darrius Aguilar MD A urinalysis was performed revealing no evidence of infection. The benefits, risks, alternatives of the cystoscopy procedure and personnel were discussed with thepatient. The verbal consent was obtained and the patient agrees to proceed. Procedure: The patient was placed on the procedure table in the supine position and prepped and draped in the usual sterile fashion. 2% Lidocaine Jelly was placed per urethra as an anesthetic in the standard fashion. Once adequate local anesthesia was achieved, the tip of the Flexible cystoscope was carefully placed into the urethra under direct visual guidance. The scope was negotiated per urethra with no evidence of stricture into the bladder. Careful hogan endoscopy was carried out. The posterior, superior and lateral diaz and dome of the bladder were all well visualized. The findings were consistent with no evidence of bladder mucosal pathology. At the conclusion of the procedure, the Flexible cystoscope was removed atraumatically. The patienttolerated the procedure without complications. Patient was given standard post-procedure instructions, and was directed to complete the course of oral antibiotics and increase oral fluid intake as directed. Patient's Post-op pain level: 0 ASSESSMENT/PLAN: 1. Microscopic hematuria - ICD9: 599.72, ICD10: R31.29 (primary diagnosis) 2. History of bladder cancer - ICD9: V10.51, ICD10: Z85.[address] urogram. Cystoscopy today is unremarkable. Can follow-up with me for virtual visit in 1year. Darrius Aguilar Please note: This note has been produced using speech recognition software and may contain errors related to that system including grammar, punctuation, spelling, gender and words and phrases that may be inappropriate. documented in this encounterPrem[facility] Instructions* Patient Instructions* Darrius Aguilar MD - 12/05/2023 4:11 PM EST Good job today, your bladder looks perfect. Your CT scan looks reassuring as well. I will see you back in 1 year, virtually. documented in this encounterPrem[facility]03-01-2024 Miscellaneous Notes* Telephone Encounter - Elizabeth Mendoza CT - 11/29/2023 8:31 AM EST Phoned patient and notified of results as /per provider . Patient acknowledge understanding of instructions and has no further questions. ERWIN Vang * Telephone Encounter - Renita Ruiz RN - 11/28/2023 3:12 PM EST Left message on machine for a return call regarding the message below. Renita Ruiz RN * Telephone Encounter - Renita Ruiz RN - 11/28/2023 3:11 PM EST ----- Message from Darrius Aguilar MD sent at 11/27/2023 6:02 PM EST ----- Please inform patient that her CT scan looks great. No kidney tumors or stones. Still needs cystoscopy which I think is scheduled for November. documented in this encounterPrem[facility]02-28-2024 NoteHNO ID: [id number] Author: PRABHAKAR VILLALBA RT(R) Service: ? Author Type: Candy Department Manager Type: Progress Notes Filed: 11/27/2023 15:27 Note Text: Radiology Service Progress Note DATE OF SERVICE: November 27, 2023 TIME: 3:27 PM PATIENT IDENTITY VERIFICATION COMPLETED USING TWO (2) STANDARD IDENTIFIERS: Name and Date of confirmed by patient verbally. FALL SCREENING: Has the patient had 2 falls in the last year or 1 fall with injury or currently using an Ambulatory Assistive Device (Walker, Cane, Wheelchair, Crutches, etc.)? No PATIENT GENDER DATA: Female. status: : No status: NO. PATIENT RELEVANT IMPLANT DATA REVIEWED: Yes PATIENT PRESENTS WITH AN IMPLANTABLE OR ATTACHED MECHANICAL ENERGY ENGINEER: No ALLERGIES: Reviewed and unchanged CONTRAST ALLERGY: NO. EXAM: CT -CONTRAST INDUCED NEPHROPATHY RISK FACTORS: Patient age > 60 years CREATININE: Creatinine Date Value Ref Range Status 07/01/2014 0.68 (L) 0.70 - 1.40 mg/dL Final eGFR-All Other Races Date Value Ref Range Status 07/01/2014 >60 . Final Comment: eGFR (Estimated GFR) Units of measure: mL/min/1.73 meters squared eGFR is derived from the reexpressed MDRD Study equation using the following parameters: serum creatinine, age, gender and race. The creatinine assay has been calibrated to be traceable to IDMS. An eGFR <60 mL/min/1.73m2 for >3 months is consistent with chronic kidney disease. Refer to KDOQI guidelines for clinical interpretation. eGFR- Date Value Ref Range Status 07/01/2014 >60 Final P.O.C.T. RESULTS: POC done: Yes, See Lab Tab November 27, 2023 TREATMENT: N/A PERIPHERAL IV DATA: Ambulatory: A peripheral IV was started in the Left forearm with a Angio cath: 22 gauge. RADIOLOGY DEPARTMENT: CT; Exam(s) Completed: Urogram SIGNATURE: RT Funmilayo(Abraham) PATIENT NAME: Casa Burton DATE: November 27, 2023 TIME: 3:27 [facility]02-28-2024 History of Present illness Narrative* Prabhakar Villalba RT(Abraham) - 11/27/2023 3:00 PM EST Radiology Service Progress Note DATE OF SERVICE: November 27, 2023 TIME: 3:27 PM PATIENT IDENTITY VERIFICATION COMPLETED USING TWO (2) STANDARD IDENTIFIERS: Name and Date of confirmed by patient verbally. FALL SCREENING: Has the patient had 2 falls in the last year or 1 fall with injury or currently using an Ambulatory Assistive Device (Walker, Cane, Wheelchair, Crutches, etc.)? No PATIENT GENDER DATA: Female. status: : No status: NO. PATIENT RELEVANT IMPLANT DATA REVIEWED: Yes PATIENT PRESENTS WITH AN IMPLANTABLE OR ATTACHED MECHANICAL ENERGY ENGINEER: No ALLERGIES: Reviewed and unchanged CONTRAST ALLERGY: NO. EXAM: CT -CONTRAST INDUCED NEPHROPATHY RISK FACTORS: Patient age > 60 years CREATININE: Creatinine Date Value Ref Range Status 07/01/2014 0.68 (L) 0.70 - 1.40 mg/dL Final eGFR-All Other Races Date Value Ref Range Status 07/01/2014 >60 . Final Comment: eGFR (Estimated GFR) Units of measure: mL/min/1.73 meters squared eGFR is derived from the reexpressed MDRD Study equation using the following parameters: serum creatinine, age, gender and race. The creatinine assay has been calibrated to be traceable to IDMS. An eGFR <60 mL/min/1.73m2 for >3 months is consistent with chronic kidney disease. Refer to KDOQI guidelines for clinical interpretation. eGFR- Date Value Ref Range Status 07/01/2014 >60 Final P.O.C.T. RESULTS: POC done: Yes, See Lab Tab November 27, 2023 TREATMENT: N/A PERIPHERAL IV DATA: Ambulatory: A peripheral IV was started in the Left forearm with a Angio cath: 22 gauge. RADIOLOGY DEPARTMENT: CT; Exam(s) Completed: Urogram SIGNATURE: RT Funmilayo(R) PATIENT NAME: Casa Burton DATE: November 27, 2023 TIME: 3:27 PM documented in this encounterPrem[facility]02-13-2024 NoteHNO ID: [id number] Author: DARRIUS AGUILAR MD Service: ? Author Type: Physician Type: Progress Notes Filed: 11/12/2023 13:25 Note Text: VIRTUAL VISIT PROGRESS NOTE This is a virtual visit using [employer] Zoom Video Visit. It required patient-provider interaction for the medical decision making as documented below. I have communicated my name and active licensure. The patient's identity and physical location were verified at the time of this visit. Either the patient or their legal b2b outside sales representative has been informed of the risks and benefits of -- and alternatives to -- treatment through a remote evaluation and consents to proceed with the evaluation remotely. Casa Burton is a 78 year old female seen for atypical cytology, hx bladder cancer. Diagnosed in 2009 with bladder cancer. Appears that she had 2 transurethral resections of her bladder tumor with mitomycin installations at some point. As best I can tell and per her history no recurrence since. Not had recent urinalysis that shows atypical cytology and blood. Denies any gross hematuria. Denies any urinary tract infections. Overall doing well. Has had history of urinary urgency and frequency but states that his much better at this current time. HISTORY REVIEWED (electronic chart updated): PAST MEDICAL HISTORY Diagnosis Date Amblyopia 06/30/2014 left Anxiety Cancer of Bladder Wall 11/25/[address] Beach Cerebral palsy (HCC) Osteoporosis 08/17/2014 Personal history of malignant neoplasm of bladder 03/17/2010 Valvular heart disease 07/28/2014 2D echo 06/2014: EF=60%, 1+ TI, AI PAST SURGICAL HISTORY Procedure Laterality Date 2D ECHO COMPLETE INP 07/26/2014 EF=60%, 1+ TI, AI EXCISION OF LINGUAL TONSIL PARTIAL HIP REPLACEMENT 1999 PAST SURGICAL HISTORY OF childhood multiple orthopedic surgeries for cerebral palsy TONSILLECTOMY HX VAGINAL HYSTERECTOMY 1997 fibroid tumor FAMILY HISTORY Problem Relation Age of Onset Alzheimer's Disease Mother Osteoporosis Mother Coronary Artery Disease Maternal Grandmother Diabetes Maternal Grandmother Hypertension Maternal Grandmother Stroke Maternal Grandmother Coronary Artery Disease Maternal Grandfather Diabetes Father Hypertension Father Social History Tobacco Use Smoking status: Never Smokeless tobacco: Never Substance Use Topics Alcohol use: No Drug use: No Current Outpatient Medications Medication Sig iv contrast (will be provided with radiology test) CT Urogram WO/W Inject, intravenously, once for 1 dose.No IV access, insert saline lock prior to the beginning of sedation, infusion, injection of imaging exam. Discontinue saline lock post exam. If Pt. has a central line or IVAD, may access for administration according to line specific nursing protocol. Once exam is complete flush line and de-access according to line specific nursing protocol in the CT contrast administration guidelines link. 0.9 % sodium chloride (NACL 0.9%) infusion Administer at rate defined per CT contrast administration specifications. To be provided with radiology test. vitamin b complex tab Take 1 tablet by mouth once daily. amLODIPine (NORVASC) 5 mg tablet Take 5 mg by mouth once daily. GLUC BALTAZAR/CHONDRO BALTAZAR A/VIT C/MN (GLUCOSAMINE CHONDROITIN MAXSTR ORAL) Take 1 tablet by mouth once daily. METOPROLOL SUCCINATE ORAL Take 50 mg by mouth once daily. lisinopril (ZESTRIL, PRINIVIL) 10 mg tablet Take 20 mg by mouth once daily. aspirin, enteric coated (ASPIRIN, ENTERIC COATED) 325 mg EC tablet Take 1 tablet by mouth twice daily as needed. Take with food. multivitamin tablet Take 1 tablet by mouth once daily. Blood Pressure Cuff - Home Use BLOOD PRESSURE CUFF FOR HOME USE. DX: LABILE BLOOD PRESSURE APPLE CIDER VINEGAR ORAL Take by mouth. astaxanthin 4 mg ORAL Cap Take by mouth. cholecalciferol, vitamin D3, 400 unit ORAL Cap Take 1,000 Units by mouth twice daily. GARLIC CAP daily FLAXSEED OIL 1,000 MG CAP daily po No current facility-administered medications for this visit. ALLERGIES Allergen Reactions Augmentin [Amoxicil* Erythromycin Symmetrel [Amantadi* REVIEW OF SYSTEMS: GENERAL: feeling well without fatigue, no recent change in weight PHYSICAL EXAMINATION: VIDEO EXAM: (if completed, performed via video enabled technology) GENERAL: alert and appropriate, in no distress, well-hydrated, well nourished, and happy, smiling, interactive ASSESSMENT: (R31.29) Microscopic hematuria (primary encounter diagnosis) (Z85.51) History of bladder cancer PLAN: Reviewed urologic history with her and her niece. Plan on CT urogram and office cystoscopy. There are no Patient Instructions on file for this visit. Darrius Aguilar [facility]02-13-2024 History of Present illness Narrative* Darrius Aguilar MD - 11/12/2023 1:17 PM EST VIRTUAL VISIT PROGRESS NOTE This is a virtual visit using [employer] Video Visit. It required patient- provider interaction for the medical decision making as documented below. I have communicated my name and active licensure. The patient's identity and physical location wereverified at the time of this visit. Either the patient or their legal b2b outside sales representative has been informed of the risks and benefits of -- and alternatives to -- treatment through a remote evaluation andconsents to proceed with the evaluation remotely. Casa Burton is a 78 year old female seen for atypical cytology, hx bladder cancer. Diagnosed in 2009 with bladder cancer. Appears that she had 2 transurethral resections of her bladder tumor with mitomycin installations at some point. As best I can tell and per her history no recurrence since. Not had recent urinalysis that shows atypical cytology and blood. Denies any gross hematuria. Denies any urinary tract infections. Overall doing well. Has had history of urinary urgency and frequency but states that his much better at this current time. HISTORY REVIEWED (electronic chart updated): PAST MEDICAL HISTORY Diagnosis Date Amblyopia 06/30/2014 left Anxiety Cancer of Bladder Wall 11/25/[address] Beach Cerebral palsy (HCC) Osteoporosis 08/17/2014 Personal history of malignant neoplasm of bladder 03/17/2010 Valvular heart disease 07/28/2014 2D echo 06/2014: EF=60%, 1+ TI, AI PAST SURGICAL HISTORY Procedure Laterality Date 2D ECHO COMPLETE INP 07/26/2014 EF=60%, 1+ TI, AI EXCISION OF LINGUAL TONSIL PARTIAL HIP REPLACEMENT 1999 PAST SURGICAL HISTORY OF childhood multiple orthopedic surgeries for cerebral palsy TONSILLECTOMY HX VAGINAL HYSTERECTOMY 1997 fibroid tumor FAMILY HISTORY Problem Relation Age of Onset Alzheimer's Disease Mother Osteoporosis Mother Coronary Artery Disease Maternal Grandmother Diabetes Maternal Grandmother Hypertension Maternal Grandmother Stroke Maternal Grandmother Coronary Artery Disease Maternal Grandfather Diabetes Father Hypertension Father Social History Tobacco Use Smoking status: Never Smokeless tobacco: Never Substance Use Topics Alcohol use: No Drug use: No Current Outpatient Medications Medication Sig iv contrast (will be provided with radiology test) CT Urogram WO/W Inject, intravenously, once for 1 dose.No IV access, insert saline lock prior to the beginning of sedation, infusion, injection of imaging exam. Discontinue saline lock post exam. If Pt. has a central line or IVAD, may access for administration according to line specific nursing protocol. Once exam is complete flush line and de-access according to line specific nursing protocol in the CT contrast administration guidelines link. 0.9 % sodium chloride (NACL 0.9%) infusion Administer at rate defined per CT contrast administration specifications. To be provided with radiology test. vitamin b complex tab Take 1 tablet by mouth once daily. amLODIPine (NORVASC) 5 mg tablet Take 5 mg by mouth once daily. GLUC BALTAZAR/CHONDRO BALTAZAR A/VIT C/MN (GLUCOSAMINE CHONDROITIN MAXSTR ORAL) Take 1 tablet by mouth once daily. METOPROLOL SUCCINATE ORAL Take 50 mg by mouth once daily. lisinopril (ZESTRIL, PRINIVIL) 10 mg tablet Take 20 mg by mouth once daily. aspirin, enteric coated (ASPIRIN, ENTERIC COATED) 325 mg EC tablet Take 1 tablet by mouth twice daily as needed. Take with food. multivitamin tablet Take 1 tablet by mouth once daily. Blood Pressure Cuff - Home Use BLOOD PRESSURE CUFF FOR HOME USE. DX: LABILE BLOOD PRESSURE APPLE CIDER VINEGAR ORAL Take by mouth. astaxanthin 4 mg ORAL Cap Take by mouth. cholecalciferol, vitamin D3, 400 unit ORAL Cap Take 1,000 Units by mouth twice daily. GARLIC CAP daily FLAXSEED OIL 1,000 MG CAP daily po No current facility-administered medications for this visit. ALLERGIES Allergen Reactions Augmentin [Amoxicil* Erythromycin Symmetrel [Amantadi* REVIEW OF SYSTEMS: GENERAL: feeling well without fatigue, no recent change in weight PHYSICAL EXAMINATION: VIDEO EXAM: (if completed, performed via video enabled technology) GENERAL: alert and appropriate, in no distress, well-hydrated, well nourished, and happy, smiling, interactive ASSESSMENT: (R31.29) Microscopic hematuria (primary encounter diagnosis) (Z85.51) History of bladder cancer PLAN: Reviewed urologic history with her and her niece. Plan on CT urogram and office cystoscopy. There are no Patient Instructions on file for this visit. Darrius Aguilar MD documented in this encounterPrem[facility]02-01-2024 Miscellaneous Notes* Telephone Encounter - MUNIRA Covington Laurie - 10/31/2023 4:57 PM EST Scheduled for Virtual visit with Dr. Aguilar 11/11 at 1pm. Pt and niece notified and are in agreement with plan to discuss atypical cytology and determine anyfurther work-up. Hedy Covington MA * Telephone Encounter - Prabhakar Clancy LPN - 10/31/2023 8:40 AM EST Called [facility]. Verified name and date of [...] and will get a hold of Hedy Covington MA to schedule if they move forward. Prabhakar Clancy LPN * Telephone Encounter - Prabhakar Clancy LPN - 10/31/2023 8:30 AM EST Called patient. Verified name and date of . Informed- did state it is a lot ot process with her have Cerebral Palsy and was hoping for good news since she has been doing well. Patient did ask that I call her niece Key at [phone] and let her know. Patient plans to discuss with Key plan and will let us know what they decide. Patient requests a call back to let her know if I get a hold of Key as she doesn't want to take too much time from her niece while she is at work. Prabhakar Clancy LPN * Telephone Encounter - Fred Mena PA-C - 10/30/2023 8:27 PM EST Please notify patient that his Urine Cytology showed "Atypical Cells" these are NOT cancer cells, but do require investigation with Cystoscopy with Staff Urologist Especially in light of her having past history of Bladder Cancer, appt with me is not needed she will need Surgeon to do consult and cystoscopy and if gross hematuria, A CT urogram as well. Closest to [place] [facility] I can place orders and request consult to [facility] The only tests so far are culture and cytology no UA and no knowledge of gross hematuria or not. Weare only getting bits and pieces not the whole picture. ROMINA Taylor, MIMANOHAR documented in this encounterPrem[facility]Evaludel[facility]* Diagnosis Onset Date Resolution Status Essential (primary) hypertension chronic Palpitations chronic [facility] Work Phone: Evaluation note* Diagnosis Microscopic hematuria- Primary History of bladder cancer Personal history of malignant neoplasm of bladder documented in this encounter [facility]* Diagnosis Microscopic hematuria [facility]* Diagnosis Microscopic hematuria- Primary History of bladder cancer Personal history of malignant neoplasm of bladder documented in this encounter [facility]* Diagnosis Acute hypoxemic respiratory failure (HCC)- Primary Acute hypoxemic respiratory failure (HCC) Heart palpitations Palpitations Infection of spine (HCC) documented in this encounter [facility] note* Diagnosis Status post peripherally inserted central catheter (PICC) central line placement- Primary Urinary tract infection associated with indwelling urethral catheter, initial encounter ([facility]) Tachycardia Unspecified tachycardia documented in this encounter [facility] noteNo assessment information availableSt. [facility] Work Phone: History and physical note Author Shiv Andrews [facility] Note Date/Time December 04, 2024 3:37 pm [facility] Medical Records Department [address] [facility] [place] [address] H&P Exam - Hospitalist 12/04/24 1435 MR#: [id number] Acct: [id number] Name: CLARITZA BURTON Rep #:[id number] : 1945 79 From: Shiv garrison DO PCP: Dr. Jenaro Ayers MD Status:ADM IN Location: ICU CVICU20 2-1 HPI - General General Date of Admission: 12/04/24 Date of Service: 12/04/24 Chief Complaint: Altered mentation, nausea/vomiting and fevers HPI Narrative CLARITZA BURTON, is a 79 F who presented to [facility] ED on 12/04/2024 with altered mentation, nausea/vomiting and fevers. Patient had a prolonged hospitalization here recently from 10/30-11/11 that was complicated by parainfluenza virus, Streptococcus bacteremia, intractable back pain, urinary retention and falls. She was eventually discharged to [facility]. On discussion with family today and review of [facility] records, she was admitted to the hospital side there at [facility] from 11/21-11/30. Hospitalization was complicated by hyponatremia, acute DVT/PE, UTI and worsening iron deficiency anemia. Notably she was found to have an extensive left lower extremity DVT, right popliteal DVT and both segmental and subsegmental PE and she was initiatedon Eliquis for this. Was noted that she was progressing poorly in their TCU prior to that hospitalization. She was discharged to [facility] on 11/30. Family noted that when they saw her last night she was mentating well. This morning, staff at the facility noted that she became altered and had 2 episodes of vomiting with concern for aspiration, so she was brought in for further evaluation. She is found to be positive for influenza A here. CT chest abdomenpelvis showed increased markings at bilateral lung bases but no significant aspiration pneumonia versus pneumonitis noted; abdomen was largely unremarkable. She was able to open eyes to command and squeeze hands on command but otherwisewas not able to answer any questions. She was noted to be hypoxic and was increased to Airvo 55 L in the ED. Given these findings, hospitalist was contacted for admission. I saw the patient at bedside in the ED, 2 family members are present. Patient was laying back in bed and breathing comfortably on Airvo. She did open eyes and squeeze my hands on command as well but otherwise appeared very weak and chronically ill-appearing. She was protecting her airway. However, she did sound quite rhonchorous in her upper airways bilaterally and had some wheezing noted as well. Discussed with family and on her prior admission here patient noted that she wished to be full code, and family states that no changes to her CODE STATUS have been made since then. We will maintain full CODE STATUS for now. Will be admitted for further management. [facility]LY [facility] Medical History Anxiety Depression Osteoporosis Non-smoker Cerebral palsy Cataract Palpitations Elevated blood pressure reading without diagnosis of hypertension Essential (primary) hypertension Home Medications ?Medication ?Instructions ?Recorded ?Last Taken ?Type garlic 200 mg tablet 200 mg PO DAILY 01/16/18 Unk nown History cholecalciferol (vitamin D3) 25 1,000 unit PO DAILY Unknown History mcg (1,000 unit) tablet metoprolol succinate 50 mg 50 mg PO DAILY #90 TABLETS 01/22/24 Unknown Rx tablet,extended release 24 hr amlodipine 5 mg tablet 5 mg PO DAILY #90 tabs 10/05 Unknown Rx risperidone 0.5 mg tablet 0.5 mg PO QHS #0 tabs Unknown Rx tamsulosin 0.4 mg capsule 0.4 mg PO DAILY@1730 #0 caps 11/11/24 Unknown Rx apixaban 5 mg tablet (Eliquis) 5 mg PO BID 12/04/24 Un known History ferrous sulfate 325 mg (65 mg 325 mg PO BID 12/04/24 U nknown History iron) tablet (Feosol) lisinopril 20 mg tablet 20 mg PO DAILY 12/04/24 Unkn own History pregabalin 50 mg capsule (Lyrica) 50 mg PO TID 5 Unknown History sennosides 8.6 mg-docusate sodium 1 tab-cap PO BID 04/23 Unknown History 50 mg tablet (Stimulant Laxative Plus) Allergy/AdvReac Type Severity Reaction Status Date / Time amantadine (From Symmetrel) AdvReac Severe Unknown Verified 10/30/24 11:00 amoxicillin (From Augmentin) AdvReac Severe Unknown Verified 10/30/24 11:00 clavulanic acid (From AdvReac Severe Unknown Verified 10/30/24 11:00 Augmentin) erythromycin base AdvReac Severe Unknown Verified 10/30/24 11:00 lorazepam (From Ativan) AdvReac restless Verified 10/30/24 17:39 Family History Father Diabetes Hypertension Mother alzhemier Osteoporosis Surgical History History of tonsillectomy History of hysterectomy History of hip replacement Social History Smoking Status: Never smoker alcohol intake: never substance use type: does not use caffeine: Yes Type: coffee Number of servings: 3 what type of physical activity do you participate in: none seatbelt use: always do you feel safe at home: Yes ROS Review of Systems ROS Unobtainable: due to mental status Vital Signs Vital Signs Vital Signs: 12/04/24 11:41 12/04/24 11:41 12/04/24 11:50 Temperature 101.0 F H Temperature Source Temporal Pulse Rate 123 H 120 H Respiratory Rate 22 H 21 H Respiratory Effort Respiratory Depth Respiratory Pattern Blood Pressure 136/56 H Blood Pressure Mean 82 Pulse Ox 90 93 Oxygen Delivery Method Nasal Cannula Airvo Oxygen Flow Rate (L/min) 4 50 Fraction of Inspired Oxygen (FIO2) 53 55 12/04/24 11:51 12/04/24 11:51 12/04/24 12:10 Temperature 101.0 F H Temperature Source Temporal Pulse Rate 119 H Respiratory Rate 22 H Respiratory Effort Labored Nasal Flaring Respiratory Depth Shallow Respiratory Pattern Tachypnea Blood Pressure 136/56 H Blood Pressure Mean 82 Pulse Ox 97 97 Oxygen Delivery Method Airvo Airvo Airvo Oxygen Flow Rate (L/min) 50 50 50 Fraction of Inspired Oxygen (FIO2) 55 55 55 12/04/24 12:20 12/04/24 14:00 Temperature Temperature Source Pulse Rate 117 H 74 Respiratory Rate 22 H 16 Respiratory Effort Respiratory Depth Respiratory Pattern Blood Pressure 109/49 L Blood Pressure Mean 69 Pulse Ox 95 99 Oxygen Delivery Method Oxygen Flow Rate (L/min) Fraction of Inspired Oxygen (FIO2) 47 Weight Weight: 71.9 kg Body Mass Index (BMI) 24.8 Physical Exam Const Constitutional Narrative: Elderly female, chronically ill-appearing, somnolent but was able to open eyes and squeeze my hands to command, otherwise laying back comfortably in bed and inno acute distress. General Appearance: cooperative Orientation / Consciousness: lethargic HEENT normocephalic, head/scalp atraumatic, hearing grossly normal bilaterally and nasal mucous membranes and turbinates normal HEENT Narrative: Poor dentition. Eyes PERRL, EOMs intact bilaterally and conjunctivae normal Chest inspection of chest normal Resp normal respiratory effort and no use of accessory muscles Resp Narrative: Breathing comfortably on Airvo at 55 L. Significant rhonchi noted in bilateral upper airways with mild wheezing noted as well. Cardio regular rate, regular rhythm, no murmurs and peripheral pulses 2+ throughout GI normal to inspection, nondistended, normoactive bowel sounds, soft to palpation,non-tender and non-distended Neuro Neuro Narrative: Contracture of right lower extremity noted in setting of cerebral palsy. Results Lab / Micro Data 12/04/24 12:31 12/04/24 12:00 Labs: Laboratory Results - last 24 hr 12/04/24 11:57: Urine Color Yellow, Urine Clarity Clear, Urine pH 6.0, Ur Specific [place] 1.025, Urine Protein 30 H, Urine Glucose (UA) Normal, Urine Ketones Negative, Urine Occult Blood 250 H, Urine Nitrite Negative, Urine Bilirubin Negative, Urine Urobilinogen Normal, Ur Leukocyte Esterase 25 H, UrineRBC 50-100 SEEN, Urine WBC 0-5 SEEN, Ur Squamous Epith Cells 0 SEEN, Ur Transition Epith Cell 0-5 SEEN, Ur Renal Epithelial Cell 0-5 SEEN, Calcium Oxalate Crystal 1+, Urine Bacteria 0 SEEN, Urine Mucus 0 SEEN 12/04/24 12:00: Sodium 134, Potassium 4.4, Chloride 98, Carbon Dioxide 21.6, Anion Gap 14, BUN 19, Creatinine 0.56 L, Estim Creat Clear Calc 57.27, Est GFR (MDRD) Non-Af 92, BUN/Creatinine Ratio 34.0 H, Glucose 136 H, Calcium 8.5, TotalBilirubin 0.34, AST 30, ALT 20, Alkaline Phosphatase 100, Total Protein 6.1, Albumin 3.1 L, Globulin 3.0, Albumin/Globulin Ratio 1.0 12/04/24 12:31: WBC 13.4 H, RBC 3.40 L, Hgb 10.4 L, Hct 32.5 L, MCV 95.6, MCH 30.6, MCHC 32.0, RDW Std Deviation 50.7 H, RDW Coeff of Roselyn 14.6, Plt Count 439,MPV 9.3, Immature Gran % (Auto) 0.700, Neut % (Auto) 81.3 H, Lymph % (Auto) 6.7 L, [place] % (Auto) 6.6, Eos % (Auto) 4.3, Baso % (Auto) 0.4, Absolute Neuts (auto)10.9 H, Absolute Lymphs (auto) 0.90, Nucleated RBC % 0, PT 16.2 H, INR 1.3, APTT34.8, Lactic Acid 1.6 Micro: Microbiology 12/04/24 11:56 Mucosa - Nose SARS-CoV-2, Influenza & RSV (PCR) - Final Influenzae A Imaging Radiology Impression Chest/Abdomen/Pelvis CT 12/04/24 13:15 IMPRESSION: Increased markings at the lung bases slightly worse at the left lung base suggestive of possible atelectasis and/or early infiltrate. Questionable tiny gallstones along the dependent portion of the gallbladder lumen. Soft tissue prominence overlying the left lower anterior abdominal wall extending to the region of the left hip joints suggestive of possible hematoma. Clinical correlation recommended. One or more dose reduction techniques were used (e.g., Automated exposure control, adjustment of the mA and/or kV according to patient size, use of iterative reconstruction technique). Reading Location: [id number] Assessment & Plan Assessment/Plan (1) Acute hypoxic respiratory failure: (2) Influenza A: PLAN: Plan Patient is a 79-year-old female who presented [facility] ED on 12/04/2024 with altered mentation, fevers and nausea/vomiting with concern for aspiration pneumonia. 1. Acute hypoxic respiratory failure in setting of flu infection with concern for aspiration pneumonia, recent history of moderate oropharyngeal dysphagia ? Admit under inpatient status to ICU. Rn Urology consulted. Flu A positive in the ED. CT chest with increased markings at lung bases concerning for atelectasis versus pneumonia but otherwise fairly clear. However, patient with significant rhonchi bilaterally and some wheezing noted. Requiring Airvo at 55 L in the ED to maintain appropriate oxygen saturations. Procalcitonin ordered. Will treat with IV steroids, scheduled DuoNebs, IV Levaquin and Tamiflu. Notably had moderate oropharyngeal dysphagia on MBSS here on 11/05. Speech therapy consulted. Will keep n.p.o. for now. Wean supplemental oxygen as able. 2. Acute toxic/metabolic encephalopathy ? Most likely secondary to flu infection with possible aspiration pneumonia. CThead ordered to rule out intracranial pathology. Maintaining airway without issue. Monitor closely and avoid sedating medications as able. Patient will rodger.p.o. status for now and cannot take p.o. medications; will follow-up speech therapy recommendations as noted above for this. 3. Mild chronic iron deficiency anemia ? Hemoglobin 10.4 on admit, stable at baseline. Continue home iron supplement. 4. Adult failure to thrive, history of cerebral palsy ? PT/OT/case management consulted. Patient with recent prolonged hospitalizations both here and at [facility] and has had significantly diminished functional status over that time. Presented here from SNF at [facility]. Presume she will need SNF placement again on discharge. 5. Recent DVT/PE on Eliquis ? Diagnosed during recent hospitalization at [facility]. Per report, studies showed an extensive left lower extremity DVT, right popliteal DVT and both segmental and subsegmental PE. Has been on Eliquis since then. Continue home Eliquis. 6. Urinary retention ? Maintain Puentes catheter. Continue home Flomax. 7. Hypertension ? Holding home lisinopril, Toprol and amlodipine. DVT prophylaxis: Not indicated, on Eliquis CODE STATUS: Full code, verified Expected disposition: TBD Total clinical time spent by myself addressing the patient's medical issues, reviewing all the data, and collaborating with patient's care team: 75 minutes. Charges/Coding Visit Charges Inpatient E&M: 65600 Init Hosp L3 12/04/24 1537 <Electronically signed by Shiv Andrews DO> Cosigner Signature (if applicable): CC: Dr. Shiv Andrews DO; Dr. Jenaro Ayers MD~ Signed [facility] Work Phone: Hospital course Narrative No data available for this section [facility] Reason for referral (narrative)No reason for referral information availableWMc[facility] Work Phone: Rejzci for visit Narrative* Auth/Cert (Routine) Specialty Diagnoses / Procedures Referred By Contac t Referred To Contact Diagnoses Acute hypoxemic respiratory failure (HCC) hypoxia, pulmonary edema Procedures - Noni Levine MD [address] [address] Phone: tel: fax: [facility] Surgical Trauma Neuro Intensive Care Unit [facility] ICU T2 [address] [place] [address] Phone: tel: Referral ID Status Reason Start Date Expiration Date Visits Re quested Visits Authorized [id number] 1 1 [facility] Summary Purpose Family History No Family History Records Found Relationship Condition Age at Onset Recorded Date/T placido father Diabetes mellitus Unknown Hypertension Unknown mother Unknown Osteoporosis Unknown Advance Directives No Advanced Directives Records FoundDocuments on File Type Date Recorded Patient Guidance Consultant Expl anation DNR (Do Not Resuscitate) 01/01/2025 10:16 AM Date Activated Date Inactivated Comments 12/27/2024 5:06 PM 12/31/2024 4:47 PM Question Answer Comments ICU transfer: Yes Intubation: No Date Activated Date Inactivated Comments 12/13/2024 4:39 PM 12/27/2024 5:06 PM Question Answer Comments ICU transfer: Yes Intubation: Yes Date Activated Date Inactivated Comments 12/13/2024 12:57 PM 12/13/2024 4:39 PM Healthcare Agents on File Name Relationship Healthcare Agent Relationshi p Communication Key Dickinson Relative First Alternate Health Care Agent Date Activated Date Inactivated Comments 12/13/2024 4:39 PM Question Answer Comments ICU transfer: Yes Intubation: Yes Date Activated Date Inactivated Comments 12/13/2024 12:57 PM 12/13/2024 4:39 PM Healthcare Agents on File Name Relationship Healthcare Agent Relationshi p Communication Key Dickinson Relative First Alternate Health Care Agent Advance Directive Response Recorded Date/ Time Living Will No December 04, 2024 12:10pm Power of Web Operations Manager No December 04 12:10pm Living Will No October 30 5:34pm Power of Web Operations Manager Yes October 30, 2024 5:34pm Name of Medical Power of Web Operations Manager SISTER October 30, 2024 5:34pm Advance Directive Response Recorded Date/ Time Living Will Yes December 04, 2024 5:45pm Power of Web Operations Manager Yes December 04 5:45pm Name of Medical Power of Web Operations Manager Jeffery Wallis y December 04, 2024 5:45pm Living Will No October 30 6:34pm Power of Web Operations Manager Yes October 30, 2024 6:34pm Name of Medical Power of Web Operations Manager SISTER October 30, 2024 6:34pm Advance Directive Response Recorded Date/ Time Living Will Yes December 04, 2024 5:45pm Power of Web Operations Manager Yes December 04 5:45pm Name of Medical Power of Web Operations Manager Jeffery Wallis y December 04, 2024 5:45pm Living Will Yes December 13, 2024 3:16am Power of Web Operations Manager Yes December 13 3:16am Name of Medical Power of Web Operations Manager SISTER December 13, 2024 3:16am Living Will No October 30 6:34pm Power of Web Operations Manager Yes October 30, 2024 6:34pm Name of Medical Power of Web Operations Manager SISTER October 30, 2024 6:34pm Date Activated Date Inactivated Comments 12/27/2024 5:06 PM 12/31/2024 4:47 PM Question Answer Comments ICU transfer: Yes Intubation: No Date Activated Date Inactivated Comments 12/13/2024 4:39 PM 12/27/2024 5:06 PM Question Answer Comments ICU transfer: Yes Intubation: Yes Date Activated Date Inactivated Comments 12/13/2024 12:57 PM 12/13/2024 4:39 PM Healthcare Agents on File Name Relationship Healthcare Agent Relationshi p Communication Key Dickinson Relative First Alternate Health Care Agent Healthcare Agents on File Name Relationship Healthcare Agent Relationshi p Communication Key Dickinson Relative First Alternate Health Care Agent Documents on File Type Date Recorded Patient Guidance Consultant Expl anation DNR (Do Not Resuscitate) 01/07/2025 3:04 PM DNR (Do Not Resuscitate) 01/01/2025 10:16 AM Healthcare Agents on File Name Relationship Healthcare Agent Relationshi p Communication Key Dickinson Relative First Alternate Health Care Agent Healthcare Agents on File Name Relationship Healthcare Agent Relationshi p Communication Key Dickinson Relative First Alternate Health Care Agent Advance Directive Response Recorded Date/ Time Living Will Yes December 04, 2024 5:45pm Do you have a Healthcare Power of Web Operations Manager? Yes December 04, 2024 5:45pm Name of Medical Power of Web Operations Manager Jeffery Wallis December 04, 2024 5:45pm Living Will Yes December 13, 2024 3:16am Do you have a Healthcare Power of Web Operations Manager? Yes December 13, 2024 3:16am Name of Medical Power of Web Operations Manager SISTER December 13, 2024 3:16am Living Will No October 30 6:34pm Do you have a Healthcare Power of Web Operations Manager? Yes October 30, 2024 6:34pm Name of Medical Power of Web Operations Manager SISTER October 30, 2024 6:34pm Advance Directive Response Recorded Date/ Time Living Will Yes December 04, 2024 5:45pm Do you have a Healthcare Power of Web Operations Manager? Yes December 04, 2024 5:45pm Name of Medical Power of Web Operations Manager Jeffery Wallis y December 04, 2024 5:45pm Living Will Yes December 13, 2024 3:16am Do you have a Healthcare Power of Web Operations Manager? Yes December 13, 2024 3:16am Name of Medical Power of Web Operations Manager SISTER December 13, 2024 3:16am Chief Complaint and Reason for Visit Chief Complaint has not been seen si nce 2019 Reason for Visit Essential (primary) hypertension Palpitations Chief Complaint 1 y fu HYPERTENSION Amb Documentation Reason for Visit Essential (primary) hypertension Palpitations Chief Complaint Admit Date 1 Y FU September 25, 2024 11:18am EORDERS September 25, 2024 12:23pm INTRACTABLE LOW BACK PAIN W/ FALLS, URIN VA RETENT October 30, 2024 3:56pm INTRACTABLE LOW BACK PAIN W/ FALLS, URIN VA RETENT October 31, 2024 7:36am INTRACTABLE LOW BACK PAIN W/ FALLS, URIN VA RETENT November 01, 2024 4:19pm INTRACTABLE LOW BACK PAIN W/ FALLS, URIN VA RETENT November 02, 2024 9:02am INTRACTABLE LOW BACK PAIN W/ FALLS, URIN VA RETENT November 03, 2024 8:03am INTRACTABLE LOW BACK PAIN W/ FALLS, URIN VA RETENT November 03, 2024 4:37pm PREOP November 04, 2024 5 :11am INTRACTABLE LOW BACK PAIN W/ FALLS, URIN VA RETENT November 04, 2024 6:31am INTRACTABLE LOW BACK PAIN W/ FALLS, URIN VA RETENT November 05, 2024 10:45am INTRACTABLE LOW BACK PAIN W/ FALLS, URIN VA RETENT November 05, 2024 5:58pm INTRACTABLE LOW BACK PAIN W/ FALLS, URIN VA RETENT November 06, 2024 8:55am INTRACTABLE LOW BACK PAIN W/ FALLS, URIN VA RETENT November 06, 2024 5:16pm INTRACTABLE LOW BACK PAIN W/ FALLS, URIN VA RETENT November 07, 2024 7:24am INTRACTABLE LOW BACK PAIN W/ FALLS, URIN VA RETENT November 08, 2024 7:24am INTRACTABLE LOW BACK PAIN W/ FALLS, URIN VA RETENT November 09, 2024 11:35am INTRACTABLE LOW BACK PAIN W/ FALLS, URIN VA RETENT November 10, 2024 11:19am INTRACTABLE LOW BACK PAIN W/ FALLS, URIN VA RETENT November 11, 2024 9:36am ACUTE RESPIRATORY FAILURE W/FLU A INFXN AND December 04, 2024 2:39pm Reason for Visit Admit Date Tachycardia September 25, 2024 11:18am Essential (primary) hypertension Decee 2023 11:18am Palpitations September 25, 2024 11:18am Difficulty in walking October 30, 2024 3:56pm Hypokalemia October 30, 2024 3 :56pm Intractable low back pain October 30, 2024 3:56pm Leukocytosis October 30, 2024 3 :56pm Parainfluenza virus infection October 302024 3:56pm Tachycardia October 30, 2024 3 :56pm Urinary retention October 30, 2024 3 :56pm Cerebral palsy October 30, 2024 3 :56pm Streptococcal bacteremia October 30, 025 3:56pm Acute hypoxic respiratory failure December 04, 2024 2:39pm Influenza A December 04, 2024 2:39 pm Chief Complaint Admit Date 1 Y FU September 25, 2024 11:18am EORDERS September 25, 2024 12:23pm INTRACTABLE LOW BACK PAIN W/ FALLS, URIN VA RETENT October 30, 2024 3:56pm INTRACTABLE LOW BACK PAIN W/ FALLS, URIN VA RETENT October 31, 2024 7:36am INTRACTABLE LOW BACK PAIN W/ FALLS, URIN VA RETENT November 01, 2024 4:19pm INTRACTABLE LOW BACK PAIN W/ FALLS, URIN VA RETENT November 02, 2024 9:02am INTRACTABLE LOW BACK PAIN W/ FALLS, URIN VA RETENT November 03, 2024 8:03am INTRACTABLE LOW BACK PAIN W/ FALLS, URIN VA RETENT November 03, 2024 4:37pm PREOP November 04, 2024 5 :11am INTRACTABLE LOW BACK PAIN W/ FALLS, URIN VA RETENT November 04, 2024 6:31am INTRACTABLE LOW BACK PAIN W/ FALLS, URIN VA RETENT November 05, 2024 10:45am INTRACTABLE LOW BACK PAIN W/ FALLS, URIN VA RETENT November 05, 2024 5:58pm INTRACTABLE LOW BACK PAIN W/ FALLS, URIN VA RETENT November 06, 2024 8:55am INTRACTABLE LOW BACK PAIN W/ FALLS, URIN VA RETENT November 06, 2024 5:16pm INTRACTABLE LOW BACK PAIN W/ FALLS, URIN VA RETENT November 07, 2024 7:24am INTRACTABLE LOW BACK PAIN W/ FALLS, URIN VA RETENT November 08, 2024 7:24am INTRACTABLE LOW BACK PAIN W/ FALLS, URIN VA RETENT November 09, 2024 11:35am INTRACTABLE LOW BACK PAIN W/ FALLS, URIN VA RETENT November 10, 2024 11:19am INTRACTABLE LOW BACK PAIN W/ FALLS, URIN VA RETENT November 11, 2024 9:36am ACUTE RESPIRATORY FAILURE W/FLU A INFXN AND December 04, 2024 2:39pm ACUTE RESPIRATORY FAILURE W/FLU A INFXN AND December 05, 2024 2:59pm ACUTE RESPIRATORY FAILURE W/FLU A INFXN AND December 06, 2024 1:17pm ACUTE RESPIRATORY FAILURE W/FLU A INFXN AND December 07, 2024 8:33am ACUTE RESPIRATORY FAILURE W/FLU A INFXN AND December 08, 2024 8:20am ACUTE RESPIRATORY FAILURE W/FLU A INFXN AND December 08, 2024 5:28pm ACUTE RESPIRATORY FAILURE W/FLU A INFXN AND December 09, 2024 7:43am ACUTE RESPIRATORY FAILURE W/FLU A INFXN AND December 09, 2024 3:17pm ACUTE RESPIRATORY FAILURE W/FLU A INFXN AND December 10, 2024 8:00am ACUTE RESPIRATORY FAILURE W/FLU A INFXN AND December 10, 2024 5:58pm ACUTE RESPIRATORY FAILURE W/FLU A INFXN AND December 11, 2024 4:34pm Chief Complaint Admit Date 1 Y FU September 25, 2024 11:18am EORDERS September 25, 2024 12:23pm INTRACTABLE LOW BACK PAIN W/ FALLS, URIN VA RETENT October 30, 2024 3:56pm INTRACTABLE LOW BACK PAIN W/ FALLS, URIN VA RETENT October 31, 2024 7:36am INTRACTABLE LOW BACK PAIN W/ FALLS, URIN VA RETENT November 01, 2024 4:19pm INTRACTABLE LOW BACK PAIN W/ FALLS, URIN VA RETENT November 02, 2024 9:02am INTRACTABLE LOW BACK PAIN W/ FALLS, URIN VA RETENT November 03, 2024 8:03am INTRACTABLE LOW BACK PAIN W/ FALLS, URIN VA RETENT November 03, 2024 4:37pm PREOP November 04, 2024 5 :11am INTRACTABLE LOW BACK PAIN W/ FALLS, URIN VA RETENT November 04, 2024 6:31am INTRACTABLE LOW BACK PAIN W/ FALLS, URIN VA RETENT November 05, 2024 10:45am INTRACTABLE LOW BACK PAIN W/ FALLS, URIN VA RETENT November 05, 2024 5:58pm INTRACTABLE LOW BACK PAIN W/ FALLS, URIN VA RETENT November 06, 2024 8:55am INTRACTABLE LOW BACK PAIN W/ FALLS, URIN VA RETENT November 06, 2024 5:16pm INTRACTABLE LOW BACK PAIN W/ FALLS, URIN VA RETENT November 07, 2024 7:24am INTRACTABLE LOW BACK PAIN W/ FALLS, URIN VA RETENT November 08, 2024 7:24am INTRACTABLE LOW BACK PAIN W/ FALLS, URIN VA RETENT November 09, 2024 11:35am INTRACTABLE LOW BACK PAIN W/ FALLS, URIN VA RETENT November 10, 2024 11:19am INTRACTABLE LOW BACK PAIN W/ FALLS, URIN VA RETENT November 11, 2024 9:36am ACUTE RESPIRATORY FAILURE W/FLU A INFXN AND December 04, 2024 2:39pm ACUTE RESPIRATORY FAILURE W/FLU A INFXN AND December 05, 2024 2:59pm ACUTE RESPIRATORY FAILURE W/FLU A INFXN AND December 06, 2024 1:17pm ACUTE RESPIRATORY FAILURE W/FLU A INFXN AND December 07, 2024 8:33am ACUTE RESPIRATORY FAILURE W/FLU A INFXN AND December 08, 2024 8:20am ACUTE RESPIRATORY FAILURE W/FLU A INFXN AND December 08, 2024 5:28pm ACUTE RESPIRATORY FAILURE W/FLU A INFXN AND December 09, 2024 7:43am ACUTE RESPIRATORY FAILURE W/FLU A INFXN AND December 09, 2024 3:17pm ACUTE RESPIRATORY FAILURE W/FLU A INFXN AND December 10, 2024 8:00am ACUTE RESPIRATORY FAILURE W/FLU A INFXN AND December 10, 2024 5:58pm ACUTE RESPIRATORY FAILURE W/FLU A INFXN AND December 11, 2024 4:34pm HYPOXIA December 13, 2024 3:1 4am Chief Complaint Admit Date INTRACTABLE LOW BACK PAIN W/ FALLS, URIN VA RETENT October 30, 2024 3:56pm INTRACTABLE LOW BACK PAIN W/ FALLS, URIN VA RETENT November 05, 2024 10:45am INTRACTABLE LOW BACK PAIN W/ FALLS, URIN VA RETENT November 05, 2024 5:58pm INTRACTABLE LOW BACK PAIN W/ FALLS, URIN VA RETENT November 06, 2024 8:55am INTRACTABLE LOW BACK PAIN W/ FALLS, URIN VA RETENT November 06, 2024 5:16pm INTRACTABLE LOW BACK PAIN W/ FALLS, URIN VA RETENT November 07, 2024 7:24am INTRACTABLE LOW BACK PAIN W/ FALLS, URIN [facility] RETENT November 08, 2024 7:24am INTRACTABLE LOW BACK PAIN W/ FALLS, URIN VA RETENT November 09, 2024 11:35am INTRACTABLE LOW BACK PAIN W/ FALLS, URIN VA RETENT November 10, 2024 11:19am INTRACTABLE LOW BACK PAIN W/ FALLS, URIN VA RETENT November 11, 2024 9:36am ACUTE RESPIRATORY FAILURE W/FLU A INFXN AND December 04, 2024 2:39pm ACUTE RESPIRATORY FAILURE W/FLU A INFXN AND December 05, 2024 2:59pm ACUTE RESPIRATORY FAILURE W/FLU A INFXN AND December 06, 2024 1:17pm ACUTE RESPIRATORY FAILURE W/FLU A INFXN AND December 07, 2024 8:33am ACUTE RESPIRATORY FAILURE W/FLU A INFXN AND December 08, 2024 8:20am ACUTE RESPIRATORY FAILURE W/FLU A INFXN AND December 08, 2024 5:28pm ACUTE RESPIRATORY FAILURE W/FLU A INFXN AND December 09, 2024 7:43am ACUTE RESPIRATORY FAILURE W/FLU A INFXN AND December 09, 2024 3:17pm ACUTE RESPIRATORY FAILURE W/FLU A INFXN AND December 10, 2024 8:00am ACUTE RESPIRATORY FAILURE W/FLU A INFXN AND December 10, 2024 5:58pm ACUTE RESPIRATORY FAILURE W/FLU A INFXN AND December 11, 2024 4:34pm HYPOXIA December 13, 2024 3:1 4am LAB WORK January 05, 2025 4:00 am LABWORK January 11, 2025 5:0 0am LAB WORK January 18, 2025 5:0 0am LAB WORK January 25, 2025 5:0 0am LABOWRK February 15, 2025 5:00a m Reason for Visit Admit Date Difficulty in walking October 30, 2024 3:56pm Hypokalemia October 30, 2024 3 :56pm Intractable low back pain October 30, 2024 3:56pm Leukocytosis October 30, 2024 3 :56pm Parainfluenza virus infection October 302024 3:56pm Tachycardia October 30, 2024 3 :56pm Urinary retention October 30, 2024 3 :56pm Cerebral palsy October 30, 2024 3 :56pm Streptococcal bacteremia October 30, 025 3:56pm Acute hypoxic respiratory failure December 04, 2024 2:39pm Influenza A December 04, 2024 2:39 pm Chief Complaint Admit Date ACUTE RESPIRATORY FAILURE W/FLU A INFXN AND December 04, 2024 2:39pm ACUTE RESPIRATORY FAILURE W/FLU A INFXN AND December 05, 2024 2:59pm ACUTE RESPIRATORY FAILURE W/FLU A INFXN AND December 06, 2024 1:17pm ACUTE RESPIRATORY FAILURE W/FLU A INFXN AND December 07, 2024 8:33am ACUTE RESPIRATORY FAILURE W/FLU A INFXN AND December 08, 2024 8:20am ACUTE RESPIRATORY FAILURE W/FLU A INFXN AND December 08, 2024 5:28pm ACUTE RESPIRATORY FAILURE W/FLU A INFXN AND December 09, 2024 7:43am ACUTE RESPIRATORY FAILURE W/FLU A INFXN AND December 09, 2024 3:17pm ACUTE RESPIRATORY FAILURE W/FLU A INFXN AND December 10, 2024 8:00am ACUTE RESPIRATORY FAILURE W/FLU A INFXN AND December 10, 2024 5:58pm ACUTE RESPIRATORY FAILURE W/FLU A INFXN AND December 11, 2024 4:34pm HYPOXIA December 13, 2024 3:1 4am LAB WORK January 05, 2025 4:00 am LABWORK January 11, 2025 5:0 0am LAB WORK January 18, 2025 5:0 0am LAB WORK January 25, 2025 5:0 0am LABOWRK February 15, 2025 5:00a m LABWORK February 24, 2025 5:00a m Reason for Visit Admit Date Acute hypoxic respiratory failure December 04, 2024 2:39pm Influenza A December 04, 2024 2:39 pm Chief Complaint Admit Date LAB WORK January 05, 2025 4:00 am LABWORK January 11, 2025 5:0 0am LAB WORK January 18, 2025 5:0 0am LAB WORK January 25, 2025 5:0 0am LABOWRK February 15, 2025 5:00a m JAIL LAB WORK February 23, 2025 5:0 0am LABWORK February 24, 2025 5:00a m PEG Removal Consult/Schedule April 20, 2025 8:20am Reason for Referral Specialty Diagnoses / Procedures Referred By Michael t Referred To Contact CT IMAGING Diagnoses Microscopic hematuria Procedures CT UROGRAM WO/W IVCON CT ABD & PELVIS W/WO CONTRST 1+ BODY Darrius Rodrigues MD [address] [place] [address] [place] [address] Referral ID Status Reason Start Date Expiration Date Visits Requested Visits Authorized [id number] Pending Review Auto-Generat ed Referral 11/12/2023 12/11/2024 1 1 Referral ID Status Reason Start Date Expiration Date V isits Requested Visits Authorized [id number] Closed Auto-Generate d Referral 11/12/2023 12/11/2024 1 1 Additional Source Comments INFORMATION SOURCE (unrecogn ized section and content) DATE CREATED AUTHOR 06/03/2018 [facility] DATE CREATED AUTHOR AUTHOR'S ORGANIZ ATION 11/30/2023 [facility] DATE CREATED AUTHOR AUTHOR'S ORGANIZ ATION 12/06/2023 [facility] DATE CREATED AUTHOR AUTHOR'S ORGANIZ ATION 12/08/2024 [facility] DATE CREATED AUTHOR AUTHOR'S ORGANIZ ATION 01/13/[address] [facility] DATE CREATED AUTHOR AUTHOR'S ORGANIZ ATION 04/24/2025 [facility] Goals (unrecognized section and content) Goals may be documented in a n alternate sectionGoals may be documented in an alternate sectionGoals may be documented in an alternate sectionGoals may be documented in an alternate section No data available for this section No data available for this sectionGoals may be documented in an alternate section Care Teams (unrecognized sec tion and content) Team Status: Active Member Role Status Dates Dr. Fabricio De La Garza MD Family Provider Active No Primary Care Physician Primary Care Provider Active Team Status: Inactive Member Role Status Dates Dr. Russel Hammer MD Attending Provider Active No Primary Care Physician Primary Care Provider, Refer ring Provider Active Team Status: Active Member Role Status Dates No Primary Care Physician Primary Care Provider Active Dr. Russel Hammer MD Attending Provider Active Team Status: Active Member Role Status Dates No Primary Care Physician Primary Care Provider Active Jenaro Cotto CRITICAL CARE TECHNICIAN, CRITICAL CARE TECHNICIAN-C Attending Provider Active Team Status: Inactive Member Role Status Dates No Primary Care Physician Primary Care Provider Active Dr. Russel Hammer MD Attending Provider, Referring Pro vider Active Team Status: Active Member Role Status Dates No Primary Care Physician Primary Care Provider Active Dr. Russel Hammer MD Attending Provider, Referring Pro vider Active Team Status: Inactive Member Role Status Dates No Primary Care Physician Primary Care Provider Active Stephanie Jay PA, PA Attending Provider, Referr ing Provider Active Motorcycle Designer Relationship Specialty Start Date End Date Jenaro Ayers MD [address] [facility] [address] [place] [id number] PCP - General Family Medicine 12/13/24 Team Status: Active Member Role Status Dates Dr. Jenaro Ayers MD Primary Care Provider Active Team Status: Inactive Member Role Status Dates No Primary Care Physician Primary Care Provider Active Start: September 25, 2024 End: September 25, 2024 No Primary Care Physician Referring Provider Active Start: September 25, 2024 End: September 25, 2024 Jenaro Cotto CRITICAL CARE TECHNICIAN, CRITICAL CARE TECHNICIAN-C Attending Provider Active S tart: September 25, 2024 End: September 25, 2024 Team Status: Inactive Member Role Status Dates No Primary Care Physician Primary Care Provider Active Start: September 25, 2024 End: September 25, 2024 Jenaro Cotto CRITICAL CARE TECHNICIAN, CRITICAL CARE TECHNICIAN-C Attending Provider Active S tart: September 25, 2024 End: September 25, 2024 Jenaro Cotto CRITICAL CARE TECHNICIAN, CRITICAL CARE TECHNICIAN-C Referring Provider Active S tart: September 25, 2024 End: September 25, 2024 Team Status: Inactive Member Role Status Dates No Primary Care Physician Primary Care Provider Active Start: October 30, 2024 End: November 11, 2024 Dr. She Tejada DO Emergency Provider Active Start: October 30, 2024 End: November 11, 2024 Dr. Shiv Andrews DO Admit Provider Active Start: October 30, 2024 End: November 11, 2024 Dr. Shiv Andrews DO Other Provider Active Start: October 30, 2024 End: November 11, 2024 Dr. Marleni Menendez DO Other Provider Active Start : October 30, 2024 End: November 11, 2024 Dr. Francisco Art MD Other Provider Active Start: October 30, 2024 End: November 11, 2024 Dr. Araceli Hart MD Other Provider Active Star t: October 30, 2024 End: November 11, 2024 Dr. Bautista Lizarraga MD Attending Provider Active Start: October 30, 2024 End: November 11, 2024 Dr. Zachary Madison MD Other Provider Active Star t: October 30, 2024 End: November 11, 2024 Team Status: Active Member Role Status Dates No Primary Care Physician Primary Care Provider Active Start: October 31, 2024 Dr. She Tejada DO Emergency Provider Active Start: October 31, 2024 Dr. Shiv Andrews DO Admit Provider Active Start: October 31, 2024 Dr. Shiv Andrews DO Other Provider Active Start: October 31, 2024 Dr. Marleni Menendez DO Attending Provider Active S tart: October 31, 2024 Dr. Marleni Menendez DO Other Provider Active Start : October 31, 2024 Team Status: Active Member Role Status Dates No Primary Care Physician Primary Care Provider Active Start: November 01, 2024 Dr. She Tejada DO Emergency Provider Active Start: November 01, 2024 Dr. Shiv Andrews DO Admit Provider Active Start: November 01, 2024 Dr. Shiv Andrews DO Other Provider Active Start: November 01, 2024 Dr. Marleni Menendez DO Attending Provider Active S tart: November 01, 2024 Dr. Marleni Menendez DO Other Provider Active Start : November 01, 2024 Team Status: Active Member Role Status Dates No Primary Care Physician Primary Care Provider Active Start: November 02, 2024 Dr. Russel Hammer MD Attending Provider Active S tart: November 02, 2024 Team Status: Active Member Role Status Dates No Primary Care Physician Primary Care Provider Active Start: November 02, 2024 Dr. She Tejada DO Emergency Provider Active Start: November 02, 2024 Dr. Shiv Andrews , Admit Provider Active Start: November 02, 2024 Dr. Shiv Andrews DO Other Provider Active Start: November 02, 2024 Dr. Zachary Madison MD Attending Provider Active Start: November 02, 2024 Dr. Zachary Madison MD Other Provider Active Star t: November 02, 2024 Dr. Marleni Menendez , Other Provider Active Start : November 02, 2024 Dr. Francisco Art MD Other Provider Active Start: November 02, 2024 Team Status: Active Member Role Status Dates No Primary Care Physician Primary Care Provider Active Start: November 03, 2024 Dr. She Tejada , Emergency Provider Active Start: November 03, 2024 Dr. Shiv Andrews DO Admit Provider Active Start: November 03, 2024 Dr. Shiv Andrews DO Other Provider Active Start: November 03, 2024 Dr. Zachary Madison MD Attending Provider Active Start: November 03, 2024 Dr. Zachary Madison MD Other Provider Active Star t: November 03, 2024 Dr. Marleni Menendez DO Other Provider Active Start : November 03, 2024 Dr. Francisco Art MD Other Provider Active Start: November 03, 2024 Team Status: Active Member Role Status Dates No Primary Care Physician Primary Care Provider Active Start: November 03, 2024 Dr. She Tejada DO Emergency Provider Active Start: November 03, 2024 Dr. Shiv Andrews DO Admit Provider Active Start: November 03, 2024 Dr. Shiv Andrews DO Other Provider Active Start: November 03, 2024 Dr. Zachary Madison MD Referring Provider Active Start: November 03, 2024 Dr. Zachary Madison MD Other Provider Active Star t: November 03, 2024 Dr. Marleni Menendez DO Other Provider Active Start : November 03, 2024 Dr. Francisco Art MD Other Provider Active Start: November 03, 2024 Dr. Cristino Kwan , Attending Provider Active Start: November 03, 2024 Team Status: Active Member Role Status Dates No Primary Care Physician Primary Care Provider Active Start: November 04, 2024 End: November 04, 2024 Dr. Russel Hammer MD Attending Provider Active S tart: November 04, 2024 End: November 04, 2024 Dr. Elfego Dewitt MD Referring Provider Active Start: November 04, 2024 End: November 04, 2024 Team Status: Active Member Role Status Dates No Primary Care Physician Primary Care Provider Active Start: November 04, 2024 Dr. She Tejada DO Emergency Provider Active Start: November 04, 2024 Dr. Shiv Andrews DO Admit Provider Active Start: November 04, 2024 Dr. Shiv Andrews DO Other Provider Active Start: November 04, 2024 Dr. Zachary Madison MD Attending Provider Active Start: November 04, 2024 Dr. Zachary Madison MD Other Provider Active Star t: November 04, 2024 Dr. Marleni Menendez DO Other Provider Active Start : November 04, 2024 Dr. Francisco rAt MD Other Provider Active Start: November 04, 2024 Team Status: Active Member Role Status Dates No Primary Care Physician Primary Care Provider Active Start: November 04, 2024 Dr. Cristino Kwan , Attending Provider Active Start: November 04, 2024 Dr. Zachary Madison MD Referring Provider Active Start: November 04, 2024 Team Status: Active Member Role Status Dates No Primary Care Physician Primary Care Provider Active Start: November 05, 2024 Dr. She Tejada DO Emergency Provider Active Start: November 05, 2024 Dr. Shiv Andrews DO Admit Provider Active Start: November 05, 2024 Dr. Shiv Andrews DO Other Provider Active Start: November 05, 2024 Dr. Zachary Madison MD Attending Provider Active Start: November 05, 2024 Dr. Zachary Madison MD Other Provider Active Star t: November 05, 2024 Dr. Marleni Menendez DO Other Provider Active Start : November 05, 2024 Dr. Francisco Art MD Other Provider Active Start: November 05, 2024 Team Status: Active Member Role Status Dates No Primary Care Physician Primary Care Provider Active Start: November 05, 2024 Dr. She Tejada DO Emergency Provider Active Start: November 05, 2024 Dr. Shiv Andrews DO Admit Provider Active Start: November 05, 2024 Dr. Shiv Andrews DO Other Provider Active Start: November 05, 2024 Dr. Zachary Madison MD Referring Provider Active Start: November 05, 2024 Dr. Zachary Madison MD Other Provider Active Star t: November 05, 2024 Dr. Marleni Menendez DO Other Provider Active Start : November 05, 2024 Dr. Francisco Art MD Other Provider Active Start: November 05, 2024 Dr. Cristino Kwan DO Attending Provider Active Start: November 05, 2024 Team Status: Active Member Role Status Dates No Primary Care Physician Primary Care Provider Active Start: November 06, 2024 Dr. She Tejada DO Emergency Provider Active Start: November 06, 2024 Dr. Shiv Andrews DO Admit Provider Active Start: November 06, 2024 Dr. Shiv Andrews DO Other Provider Active Start: November 06, 2024 Dr. Zachary Madison MD Attending Provider Active Start: November 06, 2024 Dr. Zachary Madison MD Other Provider Active Star t: November 06, 2024 Dr. Marleni Menendez DO Other Provider Active Start : November 06, 2024 Dr. Francisco Art MD Other Provider Active Start: November 06, 2024 Team Status: Active Member Role Status Dates No Primary Care Physician Primary Care Provider Active Start: November 06, 2024 Dr. She Tejada DO Emergency Provider Active Start: November 06, 2024 Dr. Shiv Andrews DO Admit Provider Active Start: November 06, 2024 Dr. Shiv Andrews DO Other Provider Active Start: November 06, 2024 Dr. Zachary Madison MD Referring Provider Active Start: November 06, 2024 Dr. Zachary Madison MD Other Provider Active Star t: November 06, 2024 Dr. Marleni Menendez DO Other Provider Active Start : November 06, 2024 Dr. Francisco Art MD Other Provider Active Start: November 06, 2024 Dr. Araceli Hart MD Other Provider Active Star t: November 06, 2024 Dr. Cristino Kwan DO Attending Provider Active Start: November 06, 2024 Team Status: Active Member Role Status Dates No Primary Care Physician Primary Care Provider Active Start: November 07, 2024 Dr. She Tejada DO Emergency Provider Active Start: November 07, 2024 Dr. Shiv Andrews DO Admit Provider Active Start: November 07, 2024 Dr. Shiv Andrews DO Other Provider Active Start: November 07, 2024 Dr. Zachary Madison MD Attending Provider Active Start: November 07, 2024 Dr. Zachary Madison MD Other Provider Active Star t: November 07, 2024 Dr. Marleni Menendez , DO Other Provider Active Start : November 07, 2024 Dr. Francisco Art MD Other Provider Active Start: November 07, 2024 Dr. Araceli Hart MD Other Provider Active Star t: November 07, 2024 Team Status: Active Member Role Status Dates No Primary Care Physician Primary Care Provider Active Start: November 08, 2024 Dr. She Tejada , DO Emergency Provider Active Start: November 08, 2024 Dr. Shiv Andrews , DO Admit Provider Active Start: November 08, 2024 Dr. Shiv Andrews DO Other Provider Active Start: November 08, 2024 Dr. Zachary Madison MD Attending Provider Active Start: November 08, 2024 Dr. Zachary Madison MD Other Provider Active Star t: November 08, 2024 Dr. Marleni Menendez , Other Provider Active Start : November 08, 2024 Dr. Francisco Art MD Other Provider Active Start: November 08, 2024 Dr. Araceli Hart MD Other Provider Active Star t: November 08, 2024 Team Status: Active Member Role Status Dates No Primary Care Physician Primary Care Provider Active Start: November 09, 2024 Dr. She Tejada DO Emergency Provider Active Start: November 09, 2024 Dr. Shiv Andrews DO Admit Provider Active Start: November 09, 2024 Dr. Shiv Andrews DO Other Provider Active Start: November 09, 2024 Dr. Marleni Menendez DO Other Provider Active Start : November 09, 2024 Dr. Francisco Art MD Other Provider Active Start: November 09, 2024 Dr. Araceli Hart MD Other Provider Active Star t: November 09, 2024 Dr. Buatista Lizarraga MD Attending Provider Active Start: November 09, 2024 Dr. Bautista Lizarraga MD Other Provider Active Start: November 09, 2024 Dr. Zachary Madison MD Other Provider Active Star t: November 09, 2024 Team Status: Active Member Role Status Dates No Primary Care Physician Primary Care Provider Active Start: November 10, 2024 Dr. She Tejada , DO Emergency Provider Active Start: November 10, 2024 Dr. Shiv Anrdews DO Admit Provider Active Start: November 10, 2024 Dr. Shiv Andrews DO Other Provider Active Start: November 10, 2024 Dr. Marleni Menendez DO Other Provider Active Start : November 10, 2024 Dr. Francisco Art MD Other Provider Active Start: November 10, 2024 Dr. Araceli Hart MD Other Provider Active Star t: November 10, 2024 Dr. Bautista Lizarraga MD Attending Provider Active Start: November 10, 2024 Dr. Bautista Lizarraga MD Other Provider Active Start: November 10, 2024 Dr. Zachary Madison MD Other Provider Active Star t: November 10, 2024 Team Status: Active Member Role Status Dates No Primary Care Physician Primary Care Provider Active Start: November 11, 2024 Dr. She Tejada DO Emergency Provider Active Start: November 11, 2024 Dr. Shiv Andrews DO Admit Provider Active Start: November 11, 2024 Dr. Shiv Andrews DO Other Provider Active Start: November 11, 2024 Dr. Marleni Menendez DO Other Provider Active Start : November 11, 2024 Dr. Francisco Art MD Other Provider Active Start: November 11, 2024 Dr. Araceli Hart MD Other Provider Active Star t: November 11, 2024 Dr. Bautista Lizarraga MD Attending Provider Active Start: November 11, 2024 Dr. Bautista Lizarraga MD Other Provider Active Start: November 11, 2024 Dr. Zachary Madison MD Other Provider Active Star t: November 11, 2024 Team Status: Active Member Role Status Dates Dr. She Tejada DO Emergency Provider Active Start: December 04, 2024 Dr. Jenaro Ayers MD Primary Care Provider Active Start: December 04, 2024 Dr. Shiv Andrews DO Admit Provider Active Start: December 04, 2024 Dr. Shiv Andrews DO Attending Provider Active Start: December 04, 2024 Dr. Shiv Andrews DO Other Provider Active Start: December 04, 2024 Team Status: Inactive Member Role Status Dates Dr. She Tejada DO Emergency Provider Active Start: December 04, 2024 End: December 11, 2024 Dr. Jenaro Ayers MD Primary Care Provider Active Start: December 04, 2024 End: December 11, 2024 Dr. Shiv Andrews DO Admit Provider Active Start: December 04, 2024 End: December 11, 2024 Dr. Shiv Andrews DO Other Provider Active Start: December 04, 2024 End: December 11, 2024 Dr. Sonali Rousseau MD Attending Provider Active Start: December 04, 2024 End: December 11, 2024 Dr. Valarie Silver MD Other Provider Active St art: December 04, 2024 End: December 11, 2024 Team Status: Active Member Role Status Dates Dr. She Tejada DO Emergency Provider Active Start: December 05, 2024 Dr. Jenaro Ayers MD Primary Care Provider Active Start: December 05, 2024 Dr. Shiv Andrews DO Admit Provider Active Start: December 05, 2024 Dr. Shiv Andrews DO Other Provider Active Start: December 05, 2024 Dr. Valarie Silver MD Attending Provider Active Start: December 05, 2024 Dr. Valarie Silver MD Other Provider Active St art: December 05, 2024 Dr. Cheko Paige MD Other Provider Active Start: December 05, 2024 Dr. Mohinder Park MD Other Provider Active Start: December 05, 2024 Dr. Markus Alonso MD Other Provider Active Star t: December 05, 2024 Dr. Joselito Lloyd DO Other Provider Active Start : December 05, 2024 Dr. Zachary Green MD Other Provider Active Sta rt: December 05, 2024 Dr. Adryan Lyle MD Other Provider Active St art: December 05, 2024 Dr. Austin Hayes MD Other Provider Active S tart: December 05, 2024 Dr. Sherly Cole MD Other Provider Active Start: December 05, 2024 Dr. Fred Millard MD Other Provider Active Start : December 05, 2024 Dr. Larry Flynn MD Other Provider Active Start: December 05, 2024 Dr. Axel Price MD Other Provider Active Start : December 05, 2024 Dr. Justine Arrieta MD Other Provider Active Star t: December 05, 2024 Dr. Mareclino Moore MD Other Provider Active Sta rt: December 05, 2024 Dr. Jeannie Angel MD Other Provider Active Sta rt: December 05, 2024 Dr. Edson Medellin MD Other Provider Active Star t: December 05, 2024 Dr. Erick Martínez MD Other Provider Active St art: December 05, 2024 Dr. Marcio Dennison MD Other Provider Active Star t: December 05, 2024 Dr. Arias Mccoy , Other Provider Active St art: December 05, 2024 Dr. Kadeem Umaña MD Other Provider Active Start: December 05, 2024 Dr. Neal Arriaza MD Other Provider Active St art: December 05, 2024 Dr. Dustin Ocampo , Other Provider Active Start: December 05, 2024 Dr. Rafy Telles MD Other Provider Active Star t: December 05, 2024 Dr. Valentin Alamo MD Other Provider Active Sta rt: December 05, 2024 Team Status: Active Member Role Status Dates Dr. She Tejada DO Emergency Provider Active Start: December 06, 2024 Dr. Jenaro Ayers MD Primary Care Provider Active Start: December 06, 2024 Dr. Shiv Andrews DO Admit Provider Active Start: December 06, 2024 Dr. Shiv Andrews DO Other Provider Active Start: December 06, 2024 Dr. Valarie Silver MD Attending Provider Active Start: December 06, 2024 Dr. Valarie Silver MD Other Provider Active St art: December 06, 2024 Team Status: Active Member Role Status Dates Dr. She Tejada DO Emergency Provider Active Start: December 07, 2024 Dr. Jenaro Ayers MD Primary Care Provider Active Start: December 07, 2024 Dr. Shiv Andrews DO Admit Provider Active Start: December 07, 2024 Dr. Shiv Andrews DO Other Provider Active Start: December 07, 2024 Dr. Sonali Rousseau MD Attending Provider Active Start: December 07, 2024 Dr. Sonali Rousseau MD Other Provider Active Star t: December 07, 2024 Dr. Valarie Silver MD Other Provider Active St art: December 07, 2024 Team Status: Active Member Role Status Dates Dr. She Tejada DO Emergency Provider Active Start: December 08, 2024 Dr. Jenaro Ayers MD Primary Care Provider Active Start: December 08, 2024 Dr. Shiv Andrews DO Admit Provider Active Start: December 08, 2024 Dr. Shiv Andrews DO Other Provider Active Start: December 08, 2024 Dr. Sonali Rousseau MD Attending Provider Active Start: December 08, 2024 Dr. Sonali Rousseau MD Other Provider Active Star t: December 08, 2024 Dr. Valarie Silver MD Other Provider Active St art: December 08, 2024 Team Status: Active Member Role Status Dates Dr. She Tejada DO Emergency Provider Active Start: December 08, 2024 Dr. Jenaro Ayers MD Primary Care Provider Active Start: December 08, 2024 Dr. Shiv Andrews DO Admit Provider Active Start: December 08, 2024 Dr. Shiv Andrews DO Other Provider Active Start: December 08, 2024 Dr. Sonali Rousseau MD Other Provider Active Star t: December 08, 2024 Dr. Valarie Silver MD Other Provider Active St art: December 08, 2024 Dr. Cristino Kwan DO Attending Provider Active Start: December 08, 2024 Team Status: Active Member Role Status Dates Dr. She Tejada DO Emergency Provider Active Start: December 09, 2024 Dr. Jenaro Ayers MD Primary Care Provider Active Start: December 09, 2024 Dr. Shiv Andrews DO Admit Provider Active Start: December 09, 2024 Dr. Shiv Andrews DO Other Provider Active Start: December 09, 2024 Dr. Sonali Rousseau MD Attending Provider Active Start: December 09, 2024 Dr. Sonali Rousseau MD Other Provider Active Star t: December 09, 2024 Dr. Valarie Silver MD Other Provider Active St art: December 09, 2024 Team Status: Active Member Role Status Dates Dr. She Tejada DO Emergency Provider Active Start: December 09, 2024 Dr. Jenaro Ayers MD Primary Care Provider Active Start: December 09, 2024 Dr. Shiv Andrews DO Admit Provider Active Start: December 09, 2024 Dr. Shiv Andrews DO Other Provider Active Start: December 09, 2024 Dr. Sonali Rousseau MD Other Provider Active Star t: December 09, 2024 Dr. Valarie Silver MD Other Provider Active St art: December 09, 2024 Dr. Cristino Kwan DO Attending Provider Active Start: December 09, 2024 Team Status: Active Member Role Status Dates Dr. She Godman , DO Emergency Provider Active Start: December 10, 2024 Dr. Jenaro Ayers MD Primary Care Provider Active Start: December 10, 2024 Dr. Shiv Andrews DO Admit Provider Active Start: December 10, 2024 Dr. Shiv Andrews DO Other Provider Active Start: December 10, 2024 Dr. Sonali Rousseau MD Attending Provider Active Start: December 10, 2024 Dr. Sonali Rousseau MD Other Provider Active Star t: December 10, 2024 Dr. Valarie Silver MD Other Provider Active St art: December 10, 2024 Team Status: Active Member Role Status Dates Dr. She Tejada DO Emergency Provider Active Start: December 10, 2024 Dr. Jenaro Ayers MD Primary Care Provider Active Start: December 10, 2024 Dr. Shiv Andrews DO Admit Provider Active Start: December 10, 2024 Dr. Shiv Andrews DO Other Provider Active Start: December 10, 2024 Dr. Sonali Rousseau MD Other Provider Active Star t: December 10, 2024 Dr. Valarie Silver MD Other Provider Active St art: December 10, 2024 Dr. Cristino Kwan DO Attending Provider Active Start: December 10, 2024 Team Status: Active Member Role Status Dates Dr. She Tejada DO Emergency Provider Active Start: December 11, 2024 Dr. Jenaro Ayers MD Primary Care Provider Active Start: December 11, 2024 Dr. Shiv Andrews DO Admit Provider Active Start: December 11, 2024 Dr. Shiv Andrews DO Other Provider Active Start: December 11, 2024 Dr. Sonali Rousseau MD Attending Provider Active Start: December 11, 2024 Dr. Sonali Rousseau MD Other Provider Active Star t: December 11, 2024 Dr. Valarie Silver MD Other Provider Active St art: December 11, 2024 Team Status: Inactive Member Role Status Dates Dr. Jenaro Ayers MD Primary Care Provider Active Start: December 13, 2024 End: December 13, 2024 Dr. Jermain Archer DO Emergency Provider Active Start: December 13, 2024 End: December 13, 2024 Motorcycle Designer Relationship Specialty Start Date End Date Jenaro Ayers MD [address] [place] [address] PCP - General Family Medicine 12/13/24 Motorcycle Designer Relationship Specialty Start Date End Date Jenaro Ayers MD [address] [place] [address] PCP - General Family Medicine 12/13/24 Motorcycle Designer Relationship Specialty Start Date End Date Jenaro Ayers MD [address] [place] [address] PCP - General Family Medicine 12/13/24 Motorcycle Designer Relationship Specialty Start Date End Date Jenaro Ayers MD [address] [place] [address] PCP - General Family Medicine 12/13/24 Motorcycle Designer Relationship Specialty Start Date End Date Jenaro Ayers MD [address] [place] [address] PCP - General Family Medicine 12/13/24 Team Status: Active Member Role Status Dates Dr. She Tejada DO Emergency Provider Active Start: December 08, 2024 Dr. Jenaro Ayers MD Primary Care Provider Active Start: December 08, 2024 Dr. Shiv Andrews DO Admit Provider Active Start: December 08, 2024 Dr. Shiv Andrews DO Other Provider Active Start: December 08, 2024 Dr. Sonali Rousseau MD Referring Provider Active Start: December 08, 2024 Dr. Sonali Rousseau MD Other Provider Active Star t: December 08, 2024 Dr. Valarie Silver MD Other Provider Active St art: December 08, 2024 Dr. Cristino Kwan DO Attending Provider Active Start: December 08, 2024 Team Status: Active Member Role Status Dates Dr. She Tejada DO Emergency Provider Active Start: December 09, 2024 Dr. Jenaro Ayers MD Primary Care Provider Active Start: December 09, 2024 Dr. Shiv Andrews DO Admit Provider Active Start: December 09, 2024 Dr. Shiv Andrews DO Other Provider Active Start: December 09, 2024 Dr. Sonali Rousseau MD Referring Provider Active Start: December 09, 2024 Dr. Sonali Rousseau MD Other Provider Active Star t: December 09, 2024 Dr. Valarie Silver MD Other Provider Active St art: December 09, 2024 Dr. Cristino Kwan DO Attending Provider Active Start: December 09, 2024 Team Status: Active Member Role Status Dates Dr. She Tejada DO Emergency Provider Active Start: December 10, 2024 Dr. Jenaro Ayers MD Primary Care Provider Active Start: December 10, 2024 Dr. Shiv Andrews DO Admit Provider Active Start: December 10, 2024 Dr. Shiv Andrews DO Other Provider Active Start: December 10, 2024 Dr. Sonali Rousseau MD Referring Provider Active Start: December 10, 2024 Dr. Sonali Rousseau MD Other Provider Active Star t: December 10, 2024 Dr. Valarie Silver MD Other Provider Active St art: December 10, 2024 Dr. Cristino Kwan DO Attending Provider Active Start: December 10, 2024 Team Status: Inactive Member Role Status Dates Dr. Jenaro Ayers MD Primary Care Provider Active Start: December 13, 2024 End: December 13, 2024 Dr. Jermain Archer DO Attending Provider Active Start: December 13, 2024 End: December 13, 2024 Dr. Jermain Archer DO Emergency Provider Active Start: December 13, 2024 End: December 13, 2024 Team Status: Active Member Role Status Dates Dr. Jenaro Ayers MD Primary Care Provider Active Start: January 04, 2025 Phi MOORE MD Attending Provider Active S tart: January 04, 2025 Team Status: Active Member Role Status Dates Dr. Jenaro Ayers MD Primary Care Provider Active Start: January 05, 2025 Phi MOORE MD Attending Provider Active S tart: January 05, 2025 Phi MOORE MD Referring Provider Active S tart: January 05, 2025 Team Status: Active Member Role Status Dates Dr. Jenaro Ayers MD Primary Care Provider Active Start: January 11, 2025 Phi MOORE MD Attending Provider Active S tart: January 11, 2025 Team Status: Active Member Role Status Dates Dr. Jenaro Ayers MD Primary Care Provider Active Start: January 18, 2025 Phi MOORE MD Attending Provider Active S tart: January 18, 2025 Team Status: Active Member Role Status Dates Dr. Jenaro Ayers MD Primary Care Provider Active Start: January 25, 2025 Phi MOORE MD Attending Provider Active S tart: January 25, 2025 Team Status: Inactive Member Role Status Dates Dr. Jenaro Ayers MD Primary Care Provider Active Start: February 15, 2025 End: February 15, 2025 Phi MOORE MD Attending Provider Active S tart: February 15, 2025 End: February 15, 2025 Team Status: Active Member Role Status Dates Dr. Jenaro Ayers MD Primary Care Provider Active Start: February 23, 2025 Phi MOORE MD Attending Provider Active S tart: February 23, 2025 Team Status: Active Member Role Status Dates Dr. Jenaro Ayers MD Primary Care Provider Active Start: February 24, 2025 Phi MOORE MD Attending Provider Active S tart: February 24, 2025 Team Status: Inactive Member Role Status Dates Dr. Jenaro Ayers MD Primary Care Provider Active Start: February 24, 2025 End: February 24, 2025 Phi MOORE MD Attending Provider Active S tart: February 24, 2025 End: February 24, 2025 Team Status: Active Member Role/Relationship Status Dates Dr. Phi Matamoros Sr. , Primary Care Provider Active Team Status: Active Member Role/Relationship Status Dates Dr. Jenaro Ayers MD Primary Care Provider Active Start: January 04, 2025 Phi MOORE MD Attending Provider Active S tart: January 04, 2025 Team Status: Active Member Role/Relationship Status Dates Dr. Jenaro Ayers MD Primary Care Provider Active Start: January 05, 2025 Phi MOORE MD Attending Provider Active S tart: January 05, 2025 Phi MOORE MD Referring Provider Active S tart: January 05, 2025 Team Status: Active Member Role/Relationship Status Dates Dr. Jenaro Ayers MD Primary Care Provider Active Start: January 11, 2025 Phi MOORE MD Attending Provider Active S tart: January 11, 2025 Team Status: Active Member Role/Relationship Status Dates Dr. Jenaro Ayers MD Primary Care Provider Active Start: January 18, 2025 Phi MOORE MD Attending Provider Active S tart: January 18, 2025 Team Status: Active Member Role/Relationship Status Dates Dr. Jenaro Ayers MD Primary Care Provider Active Start: January 25, 2025 Phi MOORE MD Attending Provider Active S tart: January 25, 2025 Team Status: Inactive Member Role/Relationship Status Dates Dr. Jenaro Ayers MD Primary Care Provider Active Start: February 15, 2025 End: February 15, 2025 Phi MOORE MD Attending Provider Active S tart: February 15, 2025 End: February 15, 2025 Team Status: Active Member Role/Relationship Status Dates Dr. Jenaro Ayers MD Primary Care Provider Active Start: February 23, 2025 Phi MOORE MD Attending Provider Active S tart: February 23, 2025 Team Status: Inactive Member Role/Relationship Status Dates Dr. Jenaro Ayers MD Primary Care Provider Active Start: February 24, 2025 End: February 24, 2025 Phi MOORE MD Attending Provider Active S tart: February 24, 2025 End: February 24, 2025 Team Status: Active Member Role/Relationship Status Dates Dr. Jenaro Ayers MD Primary Care Provider Active Start: April 05, 2025 Phi MOORE MD Attending Provider Active S tart: April 05, 2025 Team Status: Inactive Member Role/Relationship Status Dates Dr. Jenaro Ayers MD Referring Provider Active Start: April 20, 2025 End: April 20, 2025 KATHY Lozada Attending Provider Active Start: April 20, 2025 End: April 20, 2025 Dr. Phi Matamoros Sr. , DO Primary Care Provider Active Start: April 20, 2025 End: April 20, 2025 Source Comments (unrecognize d section and content) In the event this informatio n is protected by the Federal Confidentiality of Alcohol and Drug Abuse Patient Records regulations: The Federal rules restrict any use of the information to criminally investigate or prosecute any alcohol or drug abuse patient.[facility] the event this information is protected by the Federal Confidentiality of Alcohol and Drug Abuse Patient Records regulations: The Federal rules restrict any use of the information to criminally investigate or prosecute any alcohol or drug abuse patient.[facility] the event this information is protected by the Federal Confidentiality of Alcohol and Drug Abuse Patient Records regulations: The Federal rules restrict any use of the information to criminally investigate or prosecute any alcohol or drug abuse patient.[facility] the event this information is protected by the Federal Confidentiality of Alcohol and Drug Abuse Patient Records regulations: The Federal rules restrict any use of the information to criminally investigate or prosecute any alcohol or drug abuse patient.[facility]In the event this information is protected by the Federal Confidentiality of Alcohol and Drug Abuse Patient Records regulations: The Federal rules restrict any use of the information to criminally investigate or prosecute any alcohol or drug abuse patient.[facility] Reason for Visit (unrecogniz ed section and content) Reason Comments Results Reason Comments Blood In Urine Reason Comments Radiology CT Specialty Diagnoses / Procedures Referred By Michael bergeron Referred To Contact CT IMAGING Diagnoses Microscopic hematuria Procedures CT UROGRAM WO/W IVCON CT ABD & PELVIS W/WO CONTRST 1+ BODY Darrius Rodrigues MD [address] [place] [address] [place] [address] Referral ID Status Reason Start Date Expiration Date V isits Requested Visits Authorized [id number] Closed Auto-Generate d Referral 11/12/2023 12/11/2024 1 1 Reason Comments Cystoscopy-1 Reason Onset Date Comments Other 12/16/2024 Request for [facility] Reason Onset Date Comments Consult 12/26/2024 Reason Comments Vascular Access Problem Reason Onset Date Comments Other 01/11/2025 PICC line remova l by pt Inactive Administered Medications - up to 3 most recent administrations Administered Medications (un recognized section and content) Medication Order MAR Action Action Date Dose Rate Site ciprofloxacin HCl 500 mg tab(s) (CIPRO) 500 mg, ORAL, ONCE, 1 dose, On Dipti 12/05/23 at 1600, One tab prior to procedure Administer 2 hours before or 4 hours after medications containing calcium, magnesium, aluminum, iron, or zinc (including antacids and sucralfate), and sevelamer. May be administered without regard to meals. Tube feedings should be held 1 hour before and 1 hour after administration., Antimicrobial indication: Empiric Given 12/05/2023 4:25 PM EST 500 mg Oral Scheduled Active and Recently Administ ered Medications (unrecognized section and content) Medication Order 12/29/2024 12/30/2024 12/31/2024 amLODIPine (Norvasc) tablet 5 mg (CANCELED) 5 mg, Oral, Daily, First dose on Sat12/25/24 at 1530, Hold for SBP < 120 1031 (Given - Provider: Cassidy Conteh RN) 0754 (Given - Provider: Mady Lima RN) amLODIPine (Norvasc) tablet 5 mg 5 mg, Per G Tube, Daily, First dose (after last modification) on Sat12/31/24 at 0900, Hold for SBP < 120 0838 (Given - Provider: Neli Mares, KHANH) apixaban (Eliquis) tablet 5 mg (CANCELED) 5 mg, Oral, 2 times daily, First dose on Sat12/18/24 at 0930, Anticoagulant 1032 (Given - Provider: Cassidy Conteh RN)2006 (Given - Provider: Romaine Thomas RN) 0754 (Given - Provider: Mady Lima RN) apixaban (Eliquis) tablet 5 mg 5 mg, Per G Tube, 2 times daily, First dose (after last modification) on Sat12/30/24 at 2100, Anticoagulant 2315 (Given - Provider: Michelle Landry RN) 0839 (Given - Provider: Neli Mares RN) cefTRIAXone (Rocephin) 2,000 mg in sodium chloride 0.9 % 50 mL IVPB Mini-Bag Plus 2,000 mg, IntraVENous, at 100 mL/hr, Administer over 30 Minutes, Every 24 hours, First dose on Sat12/30/24 at 1530, Mini-Bag Plus bag, Suspected Indication (Select all that apply): Bloodstream Infection 1655 (New Bag - Provider: Mady Lima RN)1725 (Stopped - Provider: Mady Lima RN) 1530 (Canceled Entry - Provider: Automatic Discharge Provider - Comment: Automatically canceled at discontinue of medication order) chlorhexidine (Hibiclens) 4 % solution (CANCELED) Topical, Daily, First dose on Sat12/14/24 at 1400 2008 (Given - Provider: Romaine R. William, RN - Comment: pt bathed sania , pt cleaned again) chlorhexidine (Hibiclens) 4 % solution Topical, Daily, First dose on Sat12/31/24 at 1400 1400 (Canceled Entry - Provider: Automatic Discharge Provider - Comment: Automatically canceled at discontinue of medication order) guaiFENesin (Robitussin) 100 MG/5ML liquid 200 mg (CANCELED) 200 mg, Oral, 3 times daily, First dose on Sat12/18/24 at 1400 1032 (Given - Provider: Cassidy Conteh RN)1456 (Given - Provider: Cassidy Conteh RN)2006 (Given - Provider: Romaine Thomas RN) 0754 (Given - Provider: Mady Lima RN)1313 (Given - Provider: Mady Lima RN) guaiFENesin (Robitussin) 100 MG/5ML liquid 200 mg 200 mg, Per G Tube, 3 times daily, First dose (after last modification) on Sat12/30/24 at 2100 2315 (Given - Provider: Michelle Landry RN) 0840 (Given - Provider: Neli Mares RN)1400 (Canceled Entry - Provider: Automatic Discharge Provider - Comment: Automatically canceled at discontinue of medication order) lisinopril tablet 20 mg (CANCELED) 20 mg, Oral, Daily, First dose on Sat12/25/24 at 1530, Hold for SBP < 110 1032 (Given - Provider: Cassidy Conteh RN) 0754 (Given - Provider: Mady Lima RN) lisinopril tablet 20 mg 20 mg, Per G Tube, Daily, First dose (after last modification) on Sat12/31/24 at 0900, Hold for SBP < 110 0839 (Given - Provider: Neli Mares, KHANH) Melatonin sublingual liquid 0.3 mg 0.3 mg, SubLINGual, Nightly, First dose on Sat12/24/24 at 2100 2007 (Given - Provider: Romaine Thomas RN) 2314 (Given - Provider: Michelle Landry RN) meropenem (Merrem) 2,000 mg in sodium chloride 0.9 % 100 mL IVPB (CANCELED) 2,000 mg, IntraVENous, at 33.3 mL/hr, Administer over 180 Minutes, Every 8 hours, First dose on 12/26/24 at 1830, Meropenem Med-Surg/Crit Care Init Dosing RHEA 8, Advertising [employer] cl >=50, 3h Mini-Bag Plus bag, Suspected Indication (Select all that apply): Sepsis of Unknown Etiology 0139 (New Bag - Provider: Temitope Schultz, KHANH)0439 (Stopped - Provider: Cassidy Conteh RN)1031 (New Bag - Provider: Cassidy Conteh RN)1331 (Stopped - Provider: Cassidy Conteh RN)1818 (New Bag - Provider: Romaine Thomas RN)2118 (Stopped - Provider: Romaine Thomas RN) 0300 (New Bag - Provider: Pallavi Garrett RN)0600 (Stopped - Provider: Pallavi Garrett RN)1011 (New Bag - Provider: Mady Lima RN)1311 (Stopped - Provider: Mady Lima RN) metoprolol tartrate (Lopressor) tablet 25 mg (CANCELED) 25 mg, Oral, 2 times daily, First dose (after last modification) on Sat12/25/24 at 2100, Hold for HR < 60 or SBP < 100 1031 (Given - Provider: Cassidy Conteh RN)2006 (Given - Provider: Romaine Thomas RN) 0754 (Given - Provider: Mady Lima, KHANH) metoprolol tartrate (Lopressor) tablet 50 mg 50 mg, Per G Tube, 2 times daily, First dose (after last modification) on Sat12/30/24 at 2100, Hold for HR < 60 or SBP < 100 2315 (Given - Provider: Michelle Landry, KHANH) 0839 (Given - Provider: Neli Mares RN) pantoprazole (ProtoNix) 40 mg in sodium chloride (PF) 0.9 % 10 mL injection(Linked Group 1) 40 mg, IntraVENous, Administer over 2 Minutes, Nightly, First dose on Sat12/13/24 at 2100, Give only if unable to tolerate po. 2006 (Given - Provider: Romaine Thomas RN) 2314 (Given - Provider: Michelle Landry RN) pantoprazole (ProtoNix) EC tablet 40 mg(Linked Group 1) 40 mg, Oral, Nightly, First dose on Sat12/13/24 at 2100, Do not crush, chew, or split. 2006 (See Alternative - Provider: Romaine Thomas RN) 2313 (See Alternative - Provider: Michelle Landry RN) polyethylene glycol (PEG) 3350 (Miralax) packet 17 g 17 g, Per G Tube, Daily, First dose on Sat12/14/24 at 0900 0900 (Not Given - Provider: Cassidy Conteh RN - Reason: Contraindicated) 0755 (Given - Provider: Mady Lima RN) 0839 (Given - Provider: Neli Mares RN) senna-docusate sodium (Senokot-S) 8.6-50 MG tablet 2 tablet 2 tablet, Per G Tube, Daily, First dose on Sat12/14/24 at 0900 0900 (Not Given - Provider: Cassidy Conteh RN - Reason: Contraindicated) 0754 (Given - Provider: Mady Lima RN) 0839 (Given - Provider: Neli Mares RN) sodium chloride 0.9% (NS) flush 10 mL 10 mL, IntraCATHeter, Every 12 hours, First dose on Sat12/30/24 at 1315, Administer to each lumen. Line Care. Use 10 mL or larger syringe. 1315 (Given - Provider: Mady Lima RN) 0212 (Given - Provider: Michelle Landry RN)1315 (Canceled Entry - Provider: Automatic Discharge Provider - Comment: Automatically canceled at discontinue of medication order) sodium chloride 0.9% (NS) flush 5-40 mL 5-40 mL, IntraCATHeter, Every 8 hours, First dose on Sat12/13/24 at 1345, For Line Patency: Peripheral IV = 5 mL; Midline or Central Line = 10 mL/lumen. If following IV push medication, administer flush at same rate as the IV push. Flush volume is determined by type of infusion therapy being given. For non-viscous solutions use: Peripheral IV = 5 mL Midline or Central Line = 10 mL/lumen For viscous solutions (i.e. blood components, parenteral nutrition, contrast media, or after obtaining blood sample) use: Peripheral IV = 10 mL Midline or Central Line = 20 mL/lumen 0545 (Not Given - Provider: Cassidy Conteh RN - Reason: IV Fluids Infusing)1345 (Not Given - Provider: Cassidy Conteh RN - Reason: IV Fluids Infusing)2145 (Not Given - Provider: Romaine Thomas RN - Reason: IV Fluids Infusing) 0545 (Not Given - Provider: Pallavi Garrett RN - Reason: IV Fluids Infusing)1313 (Given - Provider: Mady Lima RN)2315 (Given - Provider: Michelle Landry RN) 0545 (Not Given - Provider: Michelle Landry RN - Reason: IV Fluids Infusing)1345 (Canceled Entry - Provider: Automatic Discharge Provider - Comment: Automatically canceled at discontinue of medication order) PRN Medication Order 12/29/2024 12/30/2024 12/31/2024 bisacodyl (Dulcolax) suppository 10 mg 10 mg, Rectal, 2 times daily PRN, constipation, Starting on Dipti 12/24/24 at 0900 metoprolol tartrate (Lopressor) injection 5 mg 5 mg, IntraVENous, Every 6 hours PRN, tachycardia, Heart rate greater than 110 sustained, Starting on Sat12/25/24 at 1300 0139 (Given - Provider: Temitope Schultz RN) 1824 (Given - Provider: Mady Lima RN) ondansetron (Zofran) injection 4 mg(Linked Group 2) 4 mg, IntraVENous, Every 6 hours PRN, nausea, vomiting, Starting on 12/13/24 at 1249, 1st Line. Give IV if patient is unable to take orally. If inadequate response within 60 minutes, proceed to next-line agent or contact provider if no further options ordered. ondansetron ODT (Zofran-ODT) disintegrating tablet 4 mg(Linked Group 2) 4 mg, Oral, Every 8 hours PRN, nausea, vomiting, Starting on 12/13/24 at 1249, 1st Line. If inadequate response within 60 minutes, proceed to next-line agent or contact provider if no further options ordered. Patient should allow tablet to dissolve on tongue. Do not remove from blister pack until just before administering. QUEtiapine (SEROquel) tablet 12.5 mg 12.5 mg, Oral, Nightly PRN, agitation, sleep, Starting on Dipti 12/24/24 at 2000 2324 (Given - Provider: Michelle Landry RN) sodium chloride 0.9 % infusion 5-250 mL/hr, IntraVENous, PRN, if patient receiving piggyback infusions and maintenance fluids are not ordered OR KVO fluids to protect IV site / prevent frequent line interruptions / long duration, Starting on 12/13/24 at 1249, For piggyback infusion, administer at same rate as piggyback for a total of 25 mL. Enter 25 mL into dose field and piggyback rate into rate field of order. If piggyback is infusing at a rate less than 100 mL/hr, enter 25 mL into dose field and 100 mL/hr into rate field of order. For KVO fluids, enter rate of 20 mL/hr or less into rate field of order. sodium chloride 0.9% (NS) flush 10 mL 10 mL, IntraCATHeter, PRN, line care, before blood draws, before and after infusion or medication administration, Starting on 12/30/24 at 1307, Use 10 mL or larger syringe. sodium chloride 0.9% (NS) flush 5-40 mL 5-40 mL, IntraVENous, PRN, line care, before and after blood draws, infusion, or medication administration, Starting on 12/13/24 at 1340, For Line Patency: Peripheral IV = 5 mL; Midline or Central Line = 10 mL/lumen. If following IV push medication, administer flush at same rate as the IV push. Flush volume is determined by type of infusion therapy being given. For non-viscous solutions use: Peripheral IV = 5 mL Midline or Central Line = 10 mL/lumen For viscous solutions (i.e. blood components, parenteral nutrition, contrast media, or after obtaining blood sample) use: Peripheral IV = 10 mL Midline or Central Line = 20 mL/lumen sodium chloride 3 % hypertonic nebulizer solution 4 mL 4 mL, Nebulization, PRN, cough, Starting on 12/26/24 at 1834 stomahesive in petrolatum (ET Mix) Topical, PRN, dry skin, Starting on Sat12/28/24 at 1100, Sacrum -Cleanse area soap and water apply E.T. mix PRN 1600 (Given - Provider: Mady Lima RN) Linked Groups Order Group 1: pantoprazole (ProtoNix) EC tablet 40 mgJump to med 40 mg, Oral, Nightly, First dose on 12/13/24 at 2100, Do not crush, chew, or split. Or pantoprazole (ProtoNix) 40 mg in sodium chloride (PF) 0.9 % 10 mL injectionJump to med 40 mg, IntraVENous, Administer over 2 Minutes, Nightly, First dose on 12/13/24 at 2100, Give only if unable to tolerate po. Group 2: ondansetron ODT (Zofran-ODT) disintegrating tablet 4 mgJump to med 4 mg, Oral, Every 8 hours PRN, nausea, vomiting, Starting on 12/13/24 at 1249, 1st Line. If inadequate response within 60 minutes, proceed to next-line agent or contact provider if no further options ordered. Patient should allow tablet to dissolve on tongue. Do not remove from blister pack until just before administering. Or ondansetron (Zofran) injection 4 mgJump to med 4 mg, IntraVENous, Every 6 hours PRN, nausea, vomiting, Starting on 12/13/24 at 1249, 1st Line. Give IV if patient is unable to take orally. If inadequate response within 60 minutes, proceed to next-line agent or contact provider if no further options ordered. Scheduled Medication Order 01/04/2025 01/05/2025 01/06/2025 cefTRIAXone (Rocephin) 1,000 mg in sodium chloride 0.9 % 50 mL IVPB Mini-Bag Plus (COMPLETED) 1,000 mg, IntraVENous, at 100 mL/hr, Administer over 30 Minutes, Once, On Sat01/05/25 at 1325, For 1 dose, Mini-Bag Plus bag, Suspected Indication (Select all that apply): Bone and Joint Infection 1719 (New Bag - Provider: Jackelyn Reagan RN)1942 (Stopped - Provider: Lexy Hargrove RN) chlorhexidine (Hibiclens) 4 % solution Topical, Daily, First dose on Sat01/06/25 at 1400 doxycycline (Vibramycin) 100 mg in sodium chloride 0.9 % 100 mL IVPB (COMPLETED) 100 mg, IntraVENous, at 100 mL/hr, Administer over 60 Minutes, Once, On Sat01/05/25 at 1730, For 1 dose, Mini-Bag Plus bag, Suspected Indication (Select all that apply): Bone and Joint Infection 2004 (New Bag - Provider: Jen Gomez, KHANH)2013 (Stopped - Provider: Jen Gomez, KHANH)210 (Due: Stopped - Provider: Jen Gomez RN) metoprolol tartrate (Lopressor) tablet 25 mg (COMPLETED) 25 mg, Oral, Once, On Sat01/05/25 at 2350, For 1 dose 0048 (Given - Provid er: Jen Gomez RN) sodium chloride 0.9 % bolus 1,000 mL (COMPLETED) 1,000 mL, IntraVENous, at 1,000 mL/hr, Administer over 1 Hours, Once, On Sat01/05/25 at 1325, For 1 dose 1719 (New Bag - Provider: Jackelyn Reagan RN)1819 (Stopped - Provider: Jackelyn Reagan RN) sodium chloride 0.9 % bolus 1,000 mL (COMPLETED) 1,000 mL, IntraVENous, at 1,000 mL/hr, Administer over 1 Hours, Once, On Sat01/05/25 at 2215, For 1 dose 2215 (New Bag - Provider: Jen Gomez RN)2315 (Stopped - Provider: Jen Gomez RN) sodium chloride 0.9% (NS) flush 10 mL 10 mL, IntraCATHeter, Every 12 hours, First dose on Sat01/05/25 at 1640, Administer to each lumen. Line Care. Use 10 mL or larger syringe. 1640 (Not Given - Provider: Jackelyn Reagan RN - Reason: IV Fluids Infusing) 0440 (Canceled Entry - Provider: Automatic Discharge Provider - Comment: Automatically canceled at discontinue of medication order) PRN Medication Order 01/04/2025 01/05/2025 01/06/2025 iopamidol (Isovue-370) 76 % injection 75 mL (COMPLETED) 75 mL, IntraVENous, IMG once PRN, contrast, Starting on Sat01/06/25 at 0020, For 1 dose 0021 (Given - Provid er: Laura Gao, RT (R)(CT)) lidocaine PF (Xylocaine) 2 % injection (COMPLETED) Infiltration, As needed, Starting on Sat01/05/25 at 1625, Intraprocedure 1625 (Given - Provider: Fabricio Zepeda MD) sodium chloride 0.9% (NS) flush 10 mL 10 mL, IntraCATHeter, PRN, line care, before blood draws, before and after infusion or medication administration, Starting on Sat01/05/25 at 1637, Use 10 mL or larger syringe. FOR RECORDS PERTAINING TO PATIENTS WHO ARE [...] BE BASED ON THE PRIMARY CLINICAL RECORDS. [employer] provides no warranty or guarantee of the accuracy or completeness of information in this document.
[2025-08-27 08:08] LABS: Hematocrit 40.1 % (37-47); Hemoglobin 13.0 g/dL (12.0-15.0); Mean Corp Hgb Conc 32.4 g/dL (32-36); Mean Corpuscular Volume 88.7 fL (81-99); Mean Platelet Vol. 11.7 fl (6.2-12.0); Platelet Count 170 K/mm3 (150-450); RBC Distribution Width CV 15.8 % (11.6-14.6); RBC Distribution Width SD 51.9 fl (35.1-43.9); Red Blood Count 4.52 M/mm3 (4.2-5.4); White Blood Count 4.7 K/mm3 (4.4-11.0)
[2025-08-27 08:29] LABS: Anion Gap 12 (5-15); BUN 20 mg/dL (4-19); BUN/Creat Ratio 30.5 RATIO (10-20); Calcium,Total 8.5 mg/dL (7.6-11.0); Carbon Dioxide 21.7 mmol/L (21.0-32.0); Chloride 104 mmol/L (98-108); Glucose 123 mg/dL (70-99); Potassium 4.0 mmol/L (3.3-5.1)
== END ==
LOC: OLS.ACH 05:10
PROVIDERS: PCP Internal Medicine; Visit Provider Internal Medicine
DX: I10 Essential (primary) hypertension (principal); R50.81 Fever presenting with conditions classified elsewhere
CPT/HCPCS: 36415; 80048; 85027